=== PATIENT | female | born 1975 | race Caucasian/White ===

== ENCOUNTER 2016-08-30 21:25 | Inpatient (IN) | payer MEDICARE, OTHER ==
[2016-08-30] MEDS ORDERED: methylPREDNISolone SOD SUCCI 125 MG/2 ML VIAL IV STA (22:10)
[2016-08-30] MEDS ORDERED: SODIUM CHLORIDE 0.9% 1,000 ML IV STA (22:10)
[2016-08-30] MEDS ORDERED: IPRATROPIUM-ALBUTEROL 3 ML NEB INHALATION STA (22:10)
[2016-08-30] MEDS ORDERED: SODIUM CHLORIDE 0.9% 500 ML IV STA (22:10)
[2016-08-30] MEDS: IPRATROPIUM-ALBUTEROL 3 ML NEB INHALATION STA ×2 (22:11→22:12)
[2016-08-30 22:19] LABS: Basophils % (A) 1 %; CHCM 31.3; Eosinophils # (A) 0.4 k/uL (0-0.7); Eosinophils % (A) 6 %; HDW 2.44; HGB 13.2 gm/dL (11.4-16.0); Hypochromasia Slight; Luc # (Auto) 0.19; Luc % (Auto) 3; Lymphocytes # (A) 2.2 k/uL (1.0-4.8); Lymphocytes % (A) 33 %; MCH 26.7 pg (25.0-35.0); MCHC 30.8 g/dL (31.0-37.0); MCV 86.8 fL (80.0-100.0); Mean Platelet Volume 7.1; Monocytes # (A) 0.5 k/uL (0-1.0); Monocytes % (A) 7 %; Neutrophils # (A) 3.3 k/uL (1.3-7.7); Neutrophils % (A) 51 %; RBC 4.95 m/uL (3.80-5.40); RDW 14.3 % (11.5-15.5); WBC 6.6 k/uL (3.8-10.6); WBC (Perox) 6.17
[2016-08-30] MEDS ORDERED: IV VANCOMYCIN PER PHARMACY 1 EACH MISC MISCELLANE PRN (22:20)
[2016-08-30] MEDS ORDERED: PIPERACILLIN-TAZOBACTAM 3.375 GM in DEXTROSE/WATER 1 50ML.BAG IVPB STA (22:20)
[2016-08-30] MEDS ORDERED: RX INFO: IV CONTRAST WAS GIVEN 1 EACH MISC MISCELLANE PRN (22:20)
[2016-08-30] MEDS ORDERED: ACETAMINOPHEN IV (For NPO) 1,000 MG in EMPTY BAG 1 BAG IVPB STA (22:20)
[2016-08-30] MEDS ORDERED: VANCOMYCIN 1,750 MG in SODIUM CHLORIDE 0.9% 250 ML IVPB STA (22:27)
[2016-08-30] MEDS: KETOROLAC 30 MG/ML 1 ML VIAL IVP STA ×2 (22:31→22:32)
[2016-08-30 22:32] LABS: Partial Thromboplastin Time 25.6 sec (22.0-30.0); Prothrombin Time 10.4 sec (9.0-12.0)
[2016-08-30 22:34] LABS: ALT 43 U/L (9-52); AST 31 U/L (14-36); Alkaline Phosphatase 122 U/L (38-126); Anion Gap 10 mmol/L; Blood Urea Nitrogen 12 mg/dL (7-17); Calcium 9.1 mg/dL (8.4-10.2); Carbon Dioxide 33 mmol/L (22-30); Chloride 96 mmol/L (98-107); Glucose 123 mg/dL (74-99); Non-African American GFR(MDRD) >60 (>60 ml/min/1.73 sqM); Potassium 4.4 mmol/L (3.5-5.1); Sodium 139 mmol/L (137-145); Total Bilirubin 0.4 mg/dL (0.2-1.3); Total Protein 7.4 g/dL (6.3-8.2)
[2016-08-30] MEDS ORDERED: FAMOTIDINE 20 MG/2 ML VIAL IV STA (22:39)
[2016-08-30] MEDS ORDERED: diphenhydrAMINE 50 MG/ML 1 ML VIAL IVP STA (22:39)
--- NOTE | 2016-08-30 22:44 | ED ---
General Adult HPI - General Chief complaint: Shortness of Breath Stated complaint: SOB/Rash Time Seen by Provider: 08/30/16 21:47 Source: patient, RN notes reviewed, old records reviewed Mode of arrival: wheelchair Limitations: no limitations - History of Present Illness Initial comments: This is a 41-year-old female on emergency department for evaluation of shortness of breath cough congestion and pain. Patient has significant medical history of asthma COPD and comorbid conditions, patient states symptoms of progressively worse about 2-3 days. Patient's also been dealing with infection on her chin and throat. Patient states swelling redness and fever on and off, patient is having chills. Patient denies being diabetic, has not taken medications has not been seen for this infection before. Patient states she has pain was able to open her mouth is able swallow, can move her tongue freely. Patient is recent travel history, no new medications, no sick contacts. - Related Data Home Medications Medication Instructions Recorded Confirmed Citalopram Hydrobromide [CeleXA] 60 mg PO DAILY 01/06/14 08/30/16 Potassium Chloride [Klor-Con 8] 8 meq PO DAILY 01/06/14 08/30/16 diphenhydrAMINE [Benadryl] 50 mg PO TID 01/06/14 08/30/16 Magnesium 200 mg PO DAILY 05/03/14 08/30/16 Albuterol Nebulized [Ventolin 2.5 mg INHALATION RT-QID PRN 09/02/14 08/30/16 Nebulized] Albuterol Inhaler [Ventolin Hfa 1 - 2 puff INHALATION RT-Q4H PRN 11/13/14 Inhaler] Ipratropium/Albuterol Sulfate 1 - 2 puff INHALATION RT-QID PRN 07/26/15 08/30/16 [Combivent Respimat Inhaler] Zolpidem Tartrate [Ambien] 10 mg PO HS 11/10/15 08/30/16 Morphine Sulfate [Morphine Sulfate 15 mg PO Q12H 11/30/15 08/30/16 ER] oxyCODONE-APAP 7.5-325MG [Percocet 1 tab PO Q6H PRN 02/11/16 08/30/16 7.5-325 mg] LORazepam [Ativan] 0.5 mg PO BID 05/24/16 08/30/16 Allergies Allergy/AdvReac Type Severity Reaction Status Date / Time adhesive Allergy Rash/Hives Verified 08/30/16 22:50 amoxicillin Allergy Anaphylaxis Verified 08/30/16 22:50 azithromycin [From Zithromax] Allergy Anaphylaxis Verified 08/30/16 22:50 cephalexin monohydrate Allergy Anaphylaxis Verified 08/30/16 22:50 [From Keflex] ciprofloxacin Allergy Anaphylaxis Verified 08/30/16 22:50 clindamycin Allergy Anaphylaxis Verified 08/30/16 22:50 levofloxacin [From Levaquin] Allergy Rash/Hives Verified 08/30/16 22:50 NSAIDS (Non-Steroidal Allergy Rash/Hives Verified 08/30/16 22:50 Anti-Inflamma shellfish derived Allergy Anaphylaxis Verified 08/30/16 22:50 Sulfa (Sulfonamide Allergy Anaphylaxis Verified 08/30/16 22:50 Antibiotics) sulfamethoxazole Allergy Anaphylaxis Verified 08/30/16 22:50 [From Bactrim] tramadol Allergy Unknown Verified 08/30/16 22:50 trimethoprim [From Bactrim] Allergy Anaphylaxis Verified 08/30/16 22:50 Review of Systems ROS Statement: Those systems with pertinent positive or pertinent negative responses have been documented in the HPI. ROS Other: All systems not noted in ROS Statement are negative. Past Medical History Past Medical History: Asthma, COPD, CVA/TIA, Fibromyalgia, Osteoarthritis (OA), Pneumonia, Rheumatoid Arthritis (RA), Seizure Disorder, Syncope Additional Past Medical History / Comment(s): pancreatitis fibrosis diagnosis in August 2015 Chronic back pain/ migraines, chronic abdominal pain. pancreatitis.kidney stones,. IBS History of Any Multi-Drug Resistant Organisms: MRSA Date of last positivie culture/infection: 2011 MDRO Source:: abdominal area from hysterectomy. Past Surgical History: Section, Cholecystectomy, Hysterectomy, Tubal Ligation Additional Past Surgical History / Comment(s): oral surgery . Pancreas biopsy May 2015. Past Anesthesia/Blood Transfusion Reactions: No Reported Reaction Past Psychological History: ADD/ADHD, Anxiety, Bipolar, Depression Additional Psychological History / Comment(s): borderline personality disorder Smoking Status: Current every day smoker Past Alcohol Use History: None Reported Past Drug Use History: Marijuana - Past Family History Father Family Medical History: No Reported History Additional Family Medical History / Comment(s): ADOPTED General Exam Limitations: no limitations General appearance: alert, in no apparent distress Head exam: Present: atraumatic, normocephalic, normal inspection Eye exam: Present: normal appearance, PERRL, EOMI. Absent: scleral icterus, conjunctival injection, periorbital swelling ENT exam: Present: normal exam, mucous membranes moist, other (Patient is significant soft tissue swelling to the chin, submandibular area, swelling and erythema, does not seem to be [place] and not fluctuant, no drainage.) Neck exam: Present: normal inspection. Absent: tenderness, meningismus, lymphadenopathy Respiratory exam: Present: normal lung sounds bilaterally. Absent: respiratory distress, wheezes, rales, rhonchi, stridor Cardiovascular Exam: Present: regular rate, normal rhythm, normal heart sounds. Absent: systolic murmur, diastolic murmur, rubs, gallop, clicks GI/Abdominal exam: Present: soft, normal bowel sounds. Absent: distended, tenderness, guarding, rebound, rigid Extremities exam: Present: normal inspection, full ROM, normal capillary refill. Absent: tenderness, pedal edema, joint swelling, calf tenderness Back exam: Present: normal inspection Neurological exam: Present: alert, oriented X3, CN II-XII intact Psychiatric exam: Present: normal affect, normal mood Skin exam: Present: warm, dry, intact, normal color. Absent: rash Course Vital Signs 08/30/16 08/30/16 08/30/16 21:40 22:14 22:26 Temperature 98.5 F Pulse Rate 113 H 100 100 Respiratory 26 H Rate Blood Pressure 192/99 O2 Sat by Pulse 86 L Oximetry - Reevaluation(s) Reevaluation #1: 08/30/16 23:46 Patient with mild improvement after prolonged breathing treatment, we'll continue to monitor breathing status, patient will be given diuresis secondary to heart failure on x-ray Medical Decision Making - Medical Decision Making 41 female here for evaluation of COPD, CHF exacerbation with shortness of breath and hypoxia, respiratory failure, patient will be admitted for pulmonary resuscitation and evaluation. Patient also with infection, soft tissue infection of her chin, patient placed on appropriate antibiotics - Lab Data Result diagrams: 08/30/16 22:05 08/30/16 22:05 Lab Results 08/30/16 08/30/16 08/30/16 Range/Units 22:05 22:05 22:05 WBC 6.6 (3.8-10.6) k/uL RBC 4.95 (3.80-5.40) m/uL Hgb 13.2 (11.4-16.0) gm/dL Hct 43.0 (34.0-46.0) % MCV 86.8 (80.0-100.0) fL MCH 26.7 (25.0-35.0) pg MCHC 30.8 L (31.0-37.0) g/dL RDW 14.3 (11.5-15.5) % Plt Count 313 (150-450) k/uL Neutrophils % 51 % Lymphocytes % 33 % Monocytes % 7 % Eosinophils % 6 % Basophils % 1 % Neutrophils # 3.3 (1.3-7.7) k/uL Lymphocytes # 2.2 (1.0-4.8) k/uL Monocytes # 0.5 (0-1.0) k/uL Eosinophils # 0.4 (0-0.7) k/uL Basophils # 0.0 (0-0.2) k/uL Hypochromasia Slight PT (9.0-12.0) sec INR (<1.1) APTT (22.0-30.0) sec Sodium 139 (137-145) mmol/L Potassium 4.4 (3.5-5.1) mmol/L Chloride 96 L (98-107) mmol/L Carbon Dioxide 33 H (22-30) mmol/L Anion Gap 10 mmol/L BUN 12 (7-17) mg/dL Creatinine 0.80 (0.52-1.04) mg/dL Est GFR (MDRD) Af Amer >60 (>60 ml/min/1.73 sqM) Est GFR (MDRD) Non-Af >60 (>60 ml/min/1.73 sqM) Glucose 123 H (74-99) mg/dL Plasma Lactic Acid Srinivas 1.6 (0.7-2.0) mmol/L Calcium 9.1 (8.4-10.2) mg/dL Total Bilirubin 0.4 (0.2-1.3) mg/dL AST 31 (14-36) U/L ALT 43 (9-52) U/L Alkaline Phosphatase 122 (38-126) U/L Total Protein 7.4 (6.3-8.2) g/dL Albumin 4.0 (3.5-5.0) g/dL 08/30/16 Range/Units 22:05 WBC (3.8-10.6) k/uL RBC (3.80-5.40) m/uL Hgb (11.4-16.0) gm/dL Hct (34.0-46.0) % MCV (80.0-100.0) fL MCH (25.0-35.0) pg MCHC (31.0-37.0) g/dL RDW (11.5-15.5) % Plt Count (150-450) k/uL Neutrophils % % Lymphocytes % % Monocytes % % Eosinophils % % Basophils % % Neutrophils # (1.3-7.7) k/uL Lymphocytes # (1.0-4.8) k/uL Monocytes # (0-1.0) k/uL Eosinophils # (0-0.7) k/uL Basophils # (0-0.2) k/uL Hypochromasia PT 10.4 (9.0-12.0) sec INR 1.0 (<1.1) APTT 25.6 (22.0-30.0) sec Sodium (137-145) mmol/L Potassium (3.5-5.1) mmol/L Chloride (98-107) mmol/L Carbon Dioxide (22-30) mmol/L Anion Gap mmol/L BUN (7-17) mg/dL Creatinine (0.52-1.04) mg/dL Est GFR (MDRD) Af Amer (>60 ml/min/1.73 sqM) Est GFR (MDRD) Non-Af (>60 ml/min/1.73 sqM) Glucose (74-99) mg/dL Plasma Lactic Acid Srinivas (0.7-2.0) mmol/L Calcium (8.4-10.2) mg/dL Total Bilirubin (0.2-1.3) mg/dL AST (14-36) U/L ALT (9-52) U/L Alkaline Phosphatase (38-126) U/L Total Protein (6.3-8.2) g/dL Albumin (3.5-5.0) g/dL - Radiology Data Radiology results: report reviewed (Chest x-ray shows no pneumonia positive CHF pulmonary edema, CT soft tissue neck shows positive cellulitis), image reviewed Critical Care Time Critical Care Time: Yes Total Critical Care Time: 31 Disposition Clinical Impression: Congestive heart failure, Acute pulmonary edema, Acute exacerbation of chronic obstructive airways disease, Hypoxia, Cellulitis of chin Disposition: ADMITTED IP TO THIS HOSP Condition: Fair Referrals: Saman Patrick MD [Primary Care Provider] - 1-2 days
--- NOTE | 2016-08-30 22:46 | XR ---
EXAMINATION TYPE: XR chest 1V portable DATE OF EXAM: 08/30/2016 10:35 PM COMPARISON: 05/24/2016 HISTORY: History of asthma or COPD shortness of breath and cough TECHNIQUE: Single frontal view of the chest is obtained. FINDINGS: Mild pulmonary vascular congestion is suggested. There is no focal air space opacity, pleural effusion, or pneumothorax seen. The cardiac silhouette size is within normal limits. The osseous structures are intact. IMPRESSION: 1. Mild pulmonary vascular congestion. 2. No focal pneumonia. 3. No significant interval change.
[2016-08-30] MEDS ORDERED: FUROSEMIDE 10 MG/ML 4 ML VIAL IV STA (23:47)
--- NOTE | 2016-08-30 23:47 | CT ---
EXAMINATION TYPE: CT soft tissue neck w con DATE OF EXAM: 08/30/2016 11:10 PM COMPARISON: CT soft tissues of neck 04/24/2013. HISTORY: Pt states of swelling and justina ness to chin area with SOB. CT DLP: 648.0 mGycm Automated exposure control for dose reduction was used. CONTRAST: CT scan of the neck is performed following with IV Contrast, patient injected with 100 mL of Omnipaqu e 300. Axial images are obtained, coronal and sagittal reformatted images are reviewed. FINDINGS: The area of redness to the chin area showed diffuse soft tissue swelling with prominent subcutaneous fat. There is mild fat stranding in the chin area probably related to cellulitis changes. There is evidence of multiple small lymph nodes in this area of submental region with one of the larg est lymph nodes measuring 0.83 x 0.88 cm. No abnormal fluid collections are noted in this area of thin to represent abscess collection or hemat kit collection. The oropharynx showed prominent pharyngeal tonsils with possible mild inflammation. Epiglottis appear s unremarkable. There are multiple benign-appearing lymph nodes in the soft tissues of neck in the anterior and poste rior triangles. Airway: No gross abnormality seen. Parotid/submandibular glands: No gross abnormality seen. Carotid/Vascular Structures: Appear grossly unremarkable. 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 Other: Upper lung daniel appear grossly unremarkable. IMPRESSION: 1. The area of concern of redness in the chin area showed increased soft tissue prominence with sugge stion of cellulitis changes with multiple small lymph nodes without significant focal abscess collect ion at present. A clinical correlation and follow-up is recommended. 2. Possible mild inflammation in the oropharyngeal and tonsillar area.
[2016-08-31 02:57] LABS: Creatine Kinase 169 U/L (30-135)
[2016-08-31] MEDS: methylPREDNISolone SOD SUCCI 125 MG/2 ML VIAL IV SCH ×4 (03:05→17:23)
[2016-08-31 03:09] LABS: Troponin I <0.012 ng/mL (0.000-0.034)
[2016-08-31 03:55] LABS: Appearance,Urine Clear (Clear); Bilirubin,Urine Negative (Negative); Glucose,Urine (UA) Negative (Negative); Ketones,Urine Negative (Negative); Leukocyte Esterase,Urine Negative (Negative); Nitrite,Urine Negative (Negative); PH, Urine 5.5 (5.0-8.0); Particle Count 666; Protein,Urine Trace (Negative); RBC,Urine 2 /hpf (0-5); Specific Gravity,Urine 1.025 (1.001-1.035); UA Billing (MACRO vs. MICRO) MICRO; Urobilinogen,Urine <2.0 mg/dL (<2.0); WBC,Urine <1 /hpf (0-5)
[2016-08-31] MEDS: IPRATROPIUM-ALBUTEROL 3 ML NEB INHALATION SCH ×5 (04:37→19:20)
[2016-08-31 05:48] LABS: Glucose,Whole Blood 189 mg/dL (75-99)
[2016-08-31] MEDS: MORPHINE SULFATE ER 15 MG TABLET PO SCH ×2 (07:22→18:36)
[2016-08-31 07:43] LABS: CH 27.1; CHCM 31.3; HCT 41.3 % (34.0-46.0); HDW 2.44; HGB 12.7 gm/dL (11.4-16.0); Hypochromasia Slight; MCH 26.8 pg (25.0-35.0); MCHC 30.7 g/dL (31.0-37.0); MCV 87.1 fL (80.0-100.0); Mean Platelet Volume 7.2; RBC 4.74 m/uL (3.80-5.40); RDW 14.2 % (11.5-15.5); WBC 4.2 k/uL (3.8-10.6)
[2016-08-31 07:57] LABS: Anion Gap 13 mmol/L; Blood Urea Nitrogen 9 mg/dL (7-17); Calcium 8.6 mg/dL (8.4-10.2); Carbon Dioxide 34 mmol/L (22-30); Chloride 94 mmol/L (98-107); Glucose 222 mg/dL (74-99); Non-African American GFR(MDRD) >60 (>60 ml/min/1.73 sqM); Sodium 141 mmol/L (137-145)
[2016-08-31] MEDS: VANCOMYCIN 1,500 MG in SODIUM CHLORIDE 0.9% 250 ML IVPB SCH ×2 (08:40→20:24)
[2016-08-31] MEDS: INSULIN LISPRO (humaLOG) 300 UNIT/3 ML VIAL SQ SCH ×4 (08:42→21:34)
[2016-08-31] MEDS: SODIUM CHLORIDE 0.9% 1,000 ML IV SCH (08:48)
[2016-08-31] MEDS: ENOXAPARIN 40 MG/0.4 ML SYRINGE SQ SCH (08:49)
[2016-08-31] MEDS: FUROSEMIDE 10 MG/ML 4 ML VIAL IV SCH ×2 (08:49→20:29)
[2016-08-31] MEDS: PIPERACILLIN-TAZOBACTAM 3.375 GM in DEXTROSE/WATER 1 50ML.BAG IVPB SCH ×3 (10:03→23:16)
[2016-08-31 11:11] LABS: Glucose,Whole Blood 320 mg/dL (75-99)
[2016-08-31] MEDS: oxyCODONE-APAP 7.5-325MG 1 EACH TAB PO PRN ×3 (11:19→23:15)
[2016-08-31 12:21] LABS: Glucose,Whole Blood 191 mg/dL (75-99)
[2016-08-31] MEDS: HYDROmorphone 1 MG/ML 1 ML SYRINGE IVP PRN ×3 (12:53→21:40)
[2016-08-31] MEDS: CITALOPRAM HYDROBROMIDE 20 MG TAB PO SCH (12:54)
[2016-08-31] MEDS: diphenhydrAMINE 50 MG CAP PO SCH ×2 (16:14→20:24)
[2016-08-31 16:44] LABS: Glucose,Whole Blood 170 mg/dL (75-99)
[2016-08-31] MEDS: LORazepam 0.5 MG TAB PO SCH (20:29)
[2016-08-31 21:14] LABS: Glucose,Whole Blood 200 mg/dL (75-99)
[2016-08-31] MEDS ORDERED: IPRATROPIUM-ALBUTEROL 3 ML NEB INHALATION PRN (23:09)
--- NOTE | 2016-08-31 23:25 | P.HPIM ---
History of Present Illness H&P Date: 08/31/16 Chief Complaint: Shortness of breath with facial cellulitis. This is a history of this, 41-year-old white female with known history of significant depression and history of bipolar disorder who states significant problems related to shortness of breath and cough. She is multiple admissions for element of COPD. She states that she also had facial rash and was placing Silvadene on the face and supposedly got worse. No dysuria stated. Later fever but no weakness is noted. She states significant pain which is chronic for her. Question element of fibromyalgia.. No significant nausea, vomiting or diarrhea stated. Multiple allergies are noted including amoxicillin, azithromycin, Keflex, ciprofloxacin, clindamycin and Levaquin. After evaluation in the emergency room, she is appropriately admitted for recurrent treatment of COPD and bronchitis. She states exposure to a relative did somewhat trigger the events. Review of Systems Constitutional: Reports fatigue, Reports fever, Reports weakness Eyes: denies blurred vision, denies pain Ears, nose, mouth and throat: Denies headache, Denies sore throat Cardiovascular: Denies chest pain, Denies shortness of breath Respiratory: Reports as per HPI Gastrointestinal: Denies abdominal pain, Denies diarrhea, Denies nausea, Denies vomiting Genitourinary: Denies dysuria, Denies hematuria Musculoskeletal: Reports myalgias Integumentary: Reports rash Neurological: Denies numbness, Denies weakness Past Medical History Past Medical History: Asthma, Heart Failure, COPD, CVA/TIA, Fibromyalgia, Pneumonia, Rheumatoid Arthritis (RA), Seizure Disorder, Syncope Additional Past Medical History / Comment(s): pancreatitis fibrosis diagnosis in August 2015 Chronic back pain/ migraines, chronic abdominal pain. pancreatitis.kidney stones,. IBS, cellulitis of the chin admit with HF on 2015 History of Any Multi-Drug Resistant Organisms: MRSA Date of last positivie culture/infection: 08/14/11 MDRO Source:: Abdomen Past Surgical History: Section, Cholecystectomy, Hysterectomy, Tubal Ligation Additional Past Surgical History / Comment(s): oral surgery . Pancreas biopsy May 2015. Past Anesthesia/Blood Transfusion Reactions: No Reported Reaction Past Psychological History: ADD/ADHD, Anxiety, Bipolar, Depression Additional Psychological History / Comment(s): borderline personality disorder Smoking Status: Current every day smoker Past Alcohol Use History: None Reported Past Drug Use History: Marijuana Additional Drug Use History / Comment(s): a few times a month - Past Family History Father Family Medical History: No Reported History Additional Family Medical History / Comment(s): ADOPTED Medications and Allergies Home Medications Medication Instructions Recorded Confirmed Type RX: Citalopram Hydrobromide 60 mg PO DAILY 01/06/14 08/30/16 History [CeleXA] RX: Potassium Chloride [Klor-Con 8] 8 meq PO DAILY 01/06/14 08/30/16 History RX: diphenhydrAMINE [Benadryl] 50 mg PO TID 01/06/14 08/30/16 History RX: Magnesium 200 mg PO DAILY 05/03/14 08/30/16 History RX: Albuterol Nebulized [Ventolin 2.5 mg INHALATION RT-QID PRN 09/02/14 History Nebulized] RX: Albuterol Inhaler [Ventolin 1 - 2 puff INHALATION RT-Q4H PRN 11/13/14 History Hfa Inhaler] RX: Ipratropium/Albuterol Sulfate 1 - 2 puff INHALATION RT-QID PRN 07/26/15 History [Combivent Respimat Inhaler] RX: Zolpidem Tartrate [Ambien] 10 mg PO HS 11/10/15 08/30/16 History RX: Morphine Sulfate [Morphine 15 mg PO Q12H 11/30/15 08/30/16 History Sulfate ER] RX: oxyCODONE-APAP 7.5-325MG 1 tab PO Q6H PRN 02/11/16 08/30/16 History [Percocet 7.5-325 mg] LORazepam [Ativan] 0.5 mg PO BID 05/24/16 08/30/16 History Allergies Allergy/AdvReac Type Severity Reaction Status Date / Time adhesive Allergy Rash/Hives Verified 08/30/16 22:50 amoxicillin Allergy Anaphylaxis Verified 08/30/16 22:50 azithromycin [From Zithromax] Allergy Anaphylaxis Verified 08/30/16 22:50 cephalexin monohydrate Allergy Anaphylaxis Verified 08/30/16 22:50 [From Keflex] ciprofloxacin Allergy Anaphylaxis Verified 08/30/16 22:50 clindamycin Allergy Anaphylaxis Verified 08/30/16 22:50 levofloxacin [From Levaquin] Allergy Rash/Hives Verified 08/30/16 22:50 NSAIDS (Non-Steroidal Allergy Rash/Hives Verified 08/30/16 22:50 Anti-Inflamma shellfish derived Allergy Anaphylaxis Verified 08/30/16 22:50 Sulfa (Sulfonamide Allergy Anaphylaxis Verified 08/30/16 22:50 Antibiotics) sulfamethoxazole Allergy Anaphylaxis Verified 08/30/16 22:50 [From Bactrim] tramadol Allergy Unknown Verified 08/30/16 22:50 trimethoprim [From Bactrim] Allergy Anaphylaxis Verified 08/30/16 22:50 Physical Exam Vitals: Vital Signs Temp Pulse Pulse Resp BP BP Pulse Ox 08/31/16 20:00 98.0 F 98 17 140/72 93 L 08/31/16 19:32 100 08/31/16 19:20 100 08/31/16 16:00 96.9 F L 100 20 153/88 96 08/31/16 12:00 97.9 F 92 18 140/60 94 L 08/31/16 11:17 92 08/31/16 11:03 92 08/31/16 08:22 100 08/31/16 08:11 96 08/31/16 08:00 98.8 F 97 21 147/64 97 08/31/16 05:13 99 22 163/73 94 L 08/31/16 04:46 105 H 08/31/16 04:38 103 H 08/30/16 23:57 98.0 F 95 18 159/97 96 Intake and Output 08/31/16 08/31/16 09/01/16 14:59 22:59 06:59 Intake Total 380 580 Output Total 3000 1250 Balance -1131 -644 Intake: IV 90 Piperacillin-Tazobactam 3 50 .375 gm In Dextrose/Water 1 50ml.bag @ 12.5 mls/hr IVPB ONCE STA Rx#: [id number] Sodium Chloride 0.9% 1, 40 000 ml @ 20 mls/hr IV . Q24H [facility] Rx#:[id number] Intake, IV Titration 380 250 Amount Piperacillin-Tazobactam 3 50 .375 gm In Dextrose/Water 1 50ml.bag @ 12.5 mls/hr IVPB Q8HR [facility] Rx#: [id number] Sodium Chloride 0.9% 1, 80 000 ml @ 20 mls/hr IV . Q24H [facility] Rx#:[id number] Vancomycin 1,500 mg In 250 Sodium Chloride 0.9% 250 ml @ 125 mls/hr IVPB Q12HR [facility] Rx#:[id number] Vancomycin 1,750 mg In 250 Sodium Chloride 0.9% 250 ml @ 125 mls/hr IVPB ONCE STA Rx#:[id number] Oral 240 Output: Urine 3000 1250 Other: Voiding Method Toilet Toilet # Voids 2 0 Weight 88.904 kg Patient Weight 09/01/16 06:59 Weight 88.904 kg - Constitutional General appearance: obese - EENT Eyes: EOMI - Neck Neck: no lymphadenopathy - Respiratory Respiratory: bilateral: diminished - Cardiovascular Rhythm: regular Heart sounds: normal: S1, S2 - Gastrointestinal General gastrointestinal: distended, soft, no tenderness - Neurologic Neurologic: CNII-XII intact, focal deficits - Psychiatric Psychiatric: A&O x's 3 Results CBC & Chem 7: 08/31/16 07:22 08/31/16 07:22 Labs: Abnormal Lab Results - Last 24 Hours (Table) 08/31/16 08/31/16 08/31/16 Range/Units 03:35 05:46 07:22 MCHC 30.7 L (31.0-37.0) g/dL Chloride (98-107) mmol/L Carbon Dioxide (22-30) mmol/L Glucose (74-99) mg/dL POC Glucose (mg/dL) 189 H (75-99) mg/dL Urine Protein Trace H (Negative) Urine Blood Small H (Negative) 08/31/16 08/31/16 08/31/16 Range/Units 07:22 11:10 12:20 MCHC (31.0-37.0) g/dL Chloride 94 L (98-107) mmol/L Carbon Dioxide 34 H (22-30) mmol/L Glucose 222 H (74-99) mg/dL POC Glucose (mg/dL) 320 H 191 H (75-99) mg/dL Urine Protein (Negative) Urine Blood (Negative) 08/31/16 08/31/16 Range/Units 16:42 21:11 MCHC (31.0-37.0) g/dL Chloride (98-107) mmol/L Carbon Dioxide (22-30) mmol/L Glucose (74-99) mg/dL POC Glucose (mg/dL) 170 H 200 H (75-99) mg/dL Urine Protein (Negative) Urine Blood (Negative) Microbiology - Last 24 Hours (Table) 08/31/16 03:35 Urine Culture - Preliminary Urine,Clean Catch Thrombosis Risk Factor Assmnt - Choose All That Apply Each Factor Represents 1 point: Abnormal pulmonary function (COPD), Age 41-60 years, Heart failure (<1month) Other Risk Factors: No Other congenital or acquired thrombophilia - If yes, enter type in comment: No Thrombosis Risk Factor Assessment Total Risk Factor Score: 3 Thrombosis Risk Factor Assessment Level: Moderate Risk Assessment and Plan (1) Acute exacerbation of chronic obstructive airways disease Status: Acute (2) Cellulitis of chin Status: Acute (3) COPD exacerbation Status: Acute (4) Cellulitis Status: Acute Plan: Plan continue antibiotic treatment. Question Neosporin usage for topical. Otherwise, question need for infectious disease consultation. Multiple issues including fibromyalgia, chronic pain due to somewhat hinder the recovery. Otherwise, she states that she is only smoking 1 cigarette daily? Check CBC and CMP in a.m. See overt other orders. Time with Patient: Greater than 30
[2016-09-01] MEDS: methylPREDNISolone SOD SUCCI 125 MG/2 ML VIAL IV SCH ×5 (01:17→23:37)
[2016-09-01] MEDS: HYDROmorphone 1 MG/ML 1 ML SYRINGE IVP PRN ×5 (01:17→23:37)
[2016-09-01] MEDS: SODIUM CHLORIDE 0.9% 1,000 ML IV SCH ×2 (02:20→05:31)
[2016-09-01] MEDS: MORPHINE SULFATE ER 15 MG TABLET PO SCH ×2 (05:31→17:40)
[2016-09-01 06:18] LABS: Glucose,Whole Blood 170 mg/dL (75-99)
[2016-09-01 06:34] LABS: CH 26.6; CHCM 30.9; HCT 41.4 % (34.0-46.0); HGB 12.6 gm/dL (11.4-16.0); Hypochromasia Slight; MCH 26.3 pg (25.0-35.0); MCHC 30.4 g/dL (31.0-37.0); MCV 86.5 fL (80.0-100.0); Mean Platelet Volume 6.6; RBC 4.79 m/uL (3.80-5.40); RDW 14.1 % (11.5-15.5); WBC 6.8 k/uL (3.8-10.6)
[2016-09-01] MEDS: INSULIN LISPRO (humaLOG) 300 UNIT/3 ML VIAL SQ SCH ×4 (06:52→23:36)
[2016-09-01 06:58] LABS: ALT 37 U/L (9-52); AST 19 U/L (14-36); Alkaline Phosphatase 113 U/L (38-126); Anion Gap 11 mmol/L; Blood Urea Nitrogen 12 mg/dL (7-17); Calcium 8.9 mg/dL (8.4-10.2); Carbon Dioxide 37 mmol/L (22-30); Chloride 94 mmol/L (98-107); Glucose 176 mg/dL (74-99); Non-African American GFR(MDRD) >60 (>60 ml/min/1.73 sqM); Potassium 4.1 mmol/L (3.5-5.1); Sodium 142 mmol/L (137-145); Total Bilirubin 0.4 mg/dL (0.2-1.3); Total Protein 7.1 g/dL (6.3-8.2)
[2016-09-01] MEDS: IPRATROPIUM-ALBUTEROL 3 ML NEB INHALATION SCH ×4 (07:59→19:02)
[2016-09-01] MEDS: VANCOMYCIN 1,500 MG in SODIUM CHLORIDE 0.9% 250 ML IVPB SCH ×2 (08:15→21:57)
[2016-09-01] MEDS: MAGNESIUM OXIDE 400 MG TAB PO SCH (08:17)
[2016-09-01] MEDS: LORazepam 0.5 MG TAB PO SCH (08:17)
[2016-09-01] MEDS: diphenhydrAMINE 50 MG CAP PO SCH ×3 (08:18→20:48)
[2016-09-01] MEDS: CITALOPRAM HYDROBROMIDE 20 MG TAB PO SCH (08:18)
[2016-09-01] MEDS: ENOXAPARIN 40 MG/0.4 ML SYRINGE SQ SCH (08:18)
[2016-09-01] MEDS: FUROSEMIDE 10 MG/ML 4 ML VIAL IV SCH ×2 (08:19→20:11)
--- NOTE | 2016-09-01 08:37 | P.PN ---
Subjective Principal diagnosis: Exacerbation of COPD with facial irritation/cellulitis. This is a 41-year-old white female essentially admitted for exacerbation of COPD. The patient states she feels much better after having methylprednisone. She would like to have Ativan intermittently for shakes stated. No fever or chills are noted. Objective - Vital Signs Vital signs: Vital Signs Temp 97.6 F 09/01/16 04:00 Pulse 96 09/01/16 08:11 Resp 18 09/01/16 04:00 BP 135/72 09/01/16 04:00 Pulse Ox 94 L 09/01/16 08:01 Intake & Output 08/31/16 09/01/16 09/01/16 18:59 06:59 18:59 Intake Total 620 730 540 Output Total 3000 2050 Balance -2380 -1320 540 Weight 88.904 kg 101.4 kg Intake: IV 230 Piperacillin-Tazobactam 3 50 .375 gm In Dextrose/Water 1 50ml.bag @ 12.5 mls/hr IVPB ONCE STA Rx#: [id number] Sodium Chloride 0.9% 1, 180 000 ml @ 20 mls/hr IV . Q24H [facility] Rx#:[id number] Intake, IV Titration 380 500 Amount Piperacillin-Tazobactam 3 50 .375 gm In Dextrose/Water 1 50ml.bag @ 12.5 mls/hr IVPB Q8HR [facility] Rx#: [id number] Sodium Chloride 0.9% 1, 80 000 ml @ 20 mls/hr IV . Q24H [facility] Rx#:[id number] Vancomycin 1,500 mg In 250 250 Sodium Chloride 0.9% 250 ml @ 125 mls/hr IVPB Q12HR [facility] Rx#:[id number] Vancomycin 1,750 mg In 250 Sodium Chloride 0.9% 250 ml @ 125 mls/hr IVPB ONCE STA Rx#:[id number] Oral 240 540 Output: Urine 3000 2050 Other: Voiding Method Toilet Toilet # Voids 2 0 - Constitutional General appearance: Present: obese - EENT Eyes: Absent: abnormal pupil - Respiratory Respiratory: bilateral: rhonchi - Cardiovascular Rhythm: regular Heart sounds: normal: S1, S2 - Gastrointestinal General gastrointestinal: Present: soft. Absent: tenderness - Neurologic Neurologic: Present: CNII-XII intact, focal deficits - Labs CBC & Chem 7: 09/01/16 05:48 09/01/16 05:48 Labs: Abnormal Lab Results - Last 24 Hours (Table) 08/31/16 08/31/16 08/31/16 Range/Units 11:10 12:20 16:42 MCHC (31.0-37.0) g/dL Chloride (98-107) mmol/L Carbon Dioxide (22-30) mmol/L Glucose (74-99) mg/dL POC Glucose (mg/dL) 320 H 191 H 170 H (75-99) mg/dL 08/31/16 09/01/16 09/01/16 Range/Units 21:11 05:48 05:48 MCHC 30.4 L (31.0-37.0) g/dL Chloride 94 L (98-107) mmol/L Carbon Dioxide 37 H (22-30) mmol/L Glucose 176 H (74-99) mg/dL POC Glucose (mg/dL) 200 H (75-99) mg/dL 09/01/16 Range/Units 06:01 MCHC (31.0-37.0) g/dL Chloride (98-107) mmol/L Carbon Dioxide (22-30) mmol/L Glucose (74-99) mg/dL POC Glucose (mg/dL) 170 H (75-99) mg/dL Microbiology - Last 24 Hours (Table) 08/31/16 03:35 Urine Culture - Preliminary Urine,Clean Catch Assessment and Plan (1) Acute exacerbation of chronic obstructive airways disease Status: Acute (2) Cellulitis of chin Status: Acute (3) COPD exacerbation Status: Acute (4) Cellulitis Status: Acute Plan: Continue current regimen of antibiotic treatment. Probably wean off to oral Lasix in the a.m. Continue current regimen of treatment. Medihoney was discussed as a topical for her chin Check CBC and CMP in a.m. Time with Patient: Less than 30
[2016-09-01] MEDS: PANTOPRAZOLE 40 MG TABLET PO SCH (08:53)
[2016-09-01 11:47] LABS: Glucose,Whole Blood 182 mg/dL (75-99)
[2016-09-01] MEDS: PIPERACILLIN-TAZOBACTAM 3.375 GM in DEXTROSE/WATER 1 50ML.BAG IVPB SCH ×2 (11:56→17:41)
--- NOTE | 2016-09-01 14:30 | CDI ---
In responding to this query, please exercise your independent professional judgment. The [facility] Coding Staff and Clinical Documentation Specialists appreciate your assistance in clarifying documentation, maintaining compliance with coding guidelines, accurately documenting patients condition and capturing severity of illness. The fact that a question is asked does not imply that any particular answer is desired or expected. Communication forms are a method of clarifying documentation and are not made part of the Legal Health Record. Thank you in advance for your clarification. Last Revision, September 2015 Morgan Ames [address] [place] [address] Documentation Clarification Form Date: 09/01/2016 2:23:00 PM From: Zoie Jones Admit Date: 08/30/2016 11:47:00 PM Patient Name: Yolie Yeboah Visit Number: [id number] Dr. Saman Patrick CHF is documented in the ED note. History/Risk Factors: COPD Smoker Clinical Indicators: VS/Pulse OX: RR 26, sats 86% on room air BNP: 95 Chest X Ray: mild pulmonary vascular congestion Echocardiogram Results: most recent found was 09/03/2014 showed ef 55-60% Treatment: IV Lasix 40 mg q12 hrs In your professional opinion, can you please clarify the acuity and type of CHF if known? Acute Chronic Acute on Chronic AND Systolic Diastolic Systolic and Diastolic Unable to determine Other, please specify Please document in your progress notes and discharge summary in order to capture severity of illness and risk of mortality. Include clinical findings that support your diagnosis. FYI: Press F11 to launch patient chart. _X____ Place X here if this finding has no clinical significance, is not applicable or if you are not able to provide any additional documentation. MTDD
[2016-09-01 14:32] VITALS: BMI 43.6
--- NOTE | 2016-09-01 14:36 | CDI ---
In responding to this query, please exercise your independent professional judgment. The [facility] Coding Staff and Clinical Documentation Specialists appreciate your assistance in clarifying documentation, maintaining compliance with coding guidelines, accurately documenting patients condition and capturing severity of illness. The fact that a question is asked does not imply that any particular answer is desired or expected. Communication forms are a method of clarifying documentation and are not made part of the Legal Health Record. Thank you in advance for your clarification. Last Revision, September 2015 Morgan Ames [address] [facility] [place] [address] Documentation Clarification Form Date: 09/01/2016 2:30:00 PM From: Zoie Jones Admit Date: 08/30/2016 11:47:00 PM Patient Name: Yolie Yeboah Visit Number: [id number] Dr. Saman Patrick The patient presented with Shortness of Breath. History/Risk Factors: CHF COPD Smoker Clinical Indicators: Vital signs/Pulse oximetry: RR 26, sats 86% on room air poa Lung/Breathing assessment: short of breath, labored, shallow with RR 22, sats 94% on 4L nasal cannula Treatment: Breathing tx IV Lasix IV steroids O2 nasal cannula 4L In your professional opinion, can you please clarify if these findings signify one of the following conditions? Acuity: o Acute o Chronic o Acute on Chronic Respiratory Status: o Respiratory failure with hypercapnia o Respiratory failure with hypoxia o Acute Respiratory Distress o Other Diagnosis, please specify o Unable to determine Please document in your progress notes and discharge summary in order to capture severity of illness and risk of mortality. Include clinical findings that support your diagnosis. FYI: Press F11 to launch patient chart. Place X here if this finding has no clinical significance, is not applicable or if you are not able to provide any additional documentation. MARY KAY
[2016-09-01 16:54] LABS: Glucose,Whole Blood 167 mg/dL (75-99)
[2016-09-01] MEDS: LORazepam 0.5 MG TAB PO PRN ×2 (17:51→23:38)
[2016-09-01] MEDS: ONDANSETRON 4 MG/2 ML VIAL IVP PRN (20:48)
[2016-09-01 21:14] LABS: Glucose,Whole Blood 224 mg/dL (75-99)
[2016-09-01] MEDS: ZOLPIDEM 10 MG TAB PO SCH (23:38)
[2016-09-02] MEDS: PIPERACILLIN-TAZOBACTAM 3.375 GM in DEXTROSE/WATER 1 50ML.BAG IVPB SCH ×3 (01:17→16:45)
[2016-09-02] MEDS: ONDANSETRON 4 MG/2 ML VIAL IVP PRN (04:14)
[2016-09-02] MEDS: HYDROmorphone 1 MG/ML 1 ML SYRINGE IVP PRN ×5 (04:15→20:31)
[2016-09-02] MEDS: SODIUM CHLORIDE 0.9% 1,000 ML IV SCH (04:17)
[2016-09-02] MEDS: MORPHINE SULFATE ER 15 MG TABLET PO SCH ×2 (05:39→17:29)
[2016-09-02] MEDS: methylPREDNISolone SOD SUCCI 125 MG/2 ML VIAL IV SCH (05:39)
[2016-09-02] MEDS: LORazepam 0.5 MG TAB PO PRN ×3 (05:40→18:19)
[2016-09-02 06:22] LABS: Glucose,Whole Blood 176 mg/dL (75-99)
[2016-09-02 06:24] LABS: CH 26.5; HCT 42.8 % (34.0-46.0); Hypochromasia Moderate; MCH 26.9 pg (25.0-35.0); MCHC 30.3 g/dL (31.0-37.0); MCV 88.7 fL (80.0-100.0); Mean Platelet Volume 6.9; RBC 4.83 m/uL (3.80-5.40); RDW 14.2 % (11.5-15.5); WBC 7.8 k/uL (3.8-10.6)
[2016-09-02] MEDS: INSULIN LISPRO (humaLOG) 300 UNIT/3 ML VIAL SQ SCH ×4 (07:03→22:08)
[2016-09-02] MEDS: PANTOPRAZOLE 40 MG TABLET PO SCH (07:03)
[2016-09-02] MEDS: IPRATROPIUM-ALBUTEROL 3 ML NEB INHALATION SCH ×4 (07:25→19:52)
[2016-09-02] MEDS ORDERED: VANCOMYCIN TROUGH DUE 1 EACH MISC MISCELLANE ONE (08:00)
[2016-09-02 08:22] LABS: ALT 32 U/L (9-52); AST 14 U/L (14-36); Alkaline Phosphatase 96 U/L (38-126); Anion Gap 11 mmol/L; Blood Urea Nitrogen 23 mg/dL (7-17); Calcium 9.1 mg/dL (8.4-10.2); Carbon Dioxide 38 mmol/L (22-30); Chloride 94 mmol/L (98-107); Glucose 177 mg/dL (74-99); Non-African American GFR(MDRD) >60 (>60 ml/min/1.73 sqM); Sodium 143 mmol/L (137-145); Total Bilirubin 0.4 mg/dL (0.2-1.3)
--- NOTE | 2016-09-02 08:26 | P.PN ---
Subjective Principal diagnosis: Exacerbation of COPD with facial irritation/cellulitis. This is a 41-year-old white female essentially admitted for exacerbation of COPD. The patient states she feels much better after having methylprednisone. She would like to have Ativan intermittently for shakes stated. No fever or chills are noted. Objective - Vital Signs Vital signs: Vital Signs Temp 97.8 F 09/02/16 04:00 Pulse 85 09/02/16 04:00 Resp 16 09/02/16 04:00 BP 141/85 09/02/16 04:00 Pulse Ox 92 L 09/02/16 04:00 Intake & Output 09/01/16 09/02/16 09/02/16 18:59 06:59 18:59 Intake Total 780 960 120 Output Total 2050 Balance 780 -1090 120 Weight 101.4 kg 100.2 kg Intake: IV 200 Sodium Chloride 0.9% 1, 200 000 ml @ 20 mls/hr IV . Q24H [facility] Rx#:[id number] Intake, IV Titration 400 Amount Piperacillin-Tazobactam 3 150 .375 gm In Dextrose/Water 1 50ml.bag @ 12.5 mls/hr IVPB Q8HR [facility] Rx#: [id number] Vancomycin 1,500 mg In 250 Sodium Chloride 0.9% 250 ml @ 125 mls/hr IVPB Q12HR [facility] Rx#:[id number] Oral 780 360 120 Output: Urine 1850 Stool 200 Other: Voiding Method Toilet Toilet # Voids 2 - Constitutional General appearance: Present: obese - EENT Eyes: Absent: abnormal pupil - Respiratory Respiratory: bilateral: diminished - Cardiovascular Rhythm: regular Heart sounds: normal: S1, S2 - Gastrointestinal General gastrointestinal: Present: soft. Absent: tenderness - Psychiatric Psychiatric: Present: A&O x's 3, appropriate affect - Labs CBC & Chem 7: 09/02/16 05:29 09/02/16 07:47 Labs: Abnormal Lab Results - Last 24 Hours (Table) 09/01/16 09/01/16 09/01/16 Range/Units 11:34 16:49 21:10 MCHC (31.0-37.0) g/dL Chloride (98-107) mmol/L Carbon Dioxide (22-30) mmol/L BUN (7-17) mg/dL Glucose (74-99) mg/dL POC Glucose (mg/dL) 182 H 167 H 224 H (75-99) mg/dL 09/02/16 09/02/16 09/02/16 Range/Units 05:29 06:21 07:47 MCHC 30.3 L (31.0-37.0) g/dL Chloride 94 L (98-107) mmol/L Carbon Dioxide 38 H (22-30) mmol/L BUN 23 H (7-17) mg/dL Glucose 177 H (74-99) mg/dL POC Glucose (mg/dL) 176 H (75-99) mg/dL Microbiology - Last 24 Hours (Table) 08/31/16 03:35 Urine Culture - Final Urine,Clean Catch Assessment and Plan (1) Acute exacerbation of chronic obstructive airways disease Status: Acute (2) Cellulitis of chin Status: Acute (3) COPD exacerbation Status: Acute (4) Cellulitis Status: Acute Plan: Impression a 41-year-old white female essentially admitted for recurrent exacerbation of acute with chronic COPD. The patient is now stabilizing. Pain control is nominal. We'll continue appropriate steroid therapy. Start tapering in a.m. Anticipate discharge in the next 24-48 hours. Time with Patient: Less than 30
[2016-09-02] MEDS: VANCOMYCIN 1,500 MG in SODIUM CHLORIDE 0.9% 250 ML IVPB SCH ×2 (08:39→22:10)
[2016-09-02] MEDS: ENOXAPARIN 40 MG/0.4 ML SYRINGE SQ SCH (09:11)
[2016-09-02] MEDS: diphenhydrAMINE 50 MG CAP PO SCH ×3 (09:11→22:08)
[2016-09-02] MEDS: CITALOPRAM HYDROBROMIDE 20 MG TAB PO SCH (09:11)
[2016-09-02] MEDS: FUROSEMIDE 10 MG/ML 4 ML VIAL IV SCH ×2 (09:11→19:49)
[2016-09-02] MEDS: MAGNESIUM OXIDE 400 MG TAB PO SCH (09:12)
[2016-09-02] MEDS: methylPREDNISolone SOD SUCCI 40 MG/ML 1 ML VIAL IV SCH ×2 (12:36→18:19)
[2016-09-02 12:39] LABS: Glucose,Whole Blood 185 mg/dL (75-99)
[2016-09-02] MEDS: oxyCODONE-APAP 7.5-325MG 1 EACH TAB PO PRN ×2 (14:17→19:50)
[2016-09-02 17:57] LABS: Glucose,Whole Blood 141 mg/dL (75-99)
[2016-09-02 22:23] LABS: Glucose,Whole Blood 171 mg/dL (75-99)
[2016-09-03] MEDS: HYDROmorphone 1 MG/ML 1 ML SYRINGE IVP PRN ×3 (00:03→11:10)
[2016-09-03] MEDS: LORazepam 0.5 MG TAB PO PRN (00:03)
[2016-09-03] MEDS: ZOLPIDEM 10 MG TAB PO SCH (00:03)
[2016-09-03] MEDS: methylPREDNISolone SOD SUCCI 40 MG/ML 1 ML VIAL IV SCH ×3 (00:05→13:12)
[2016-09-03] MEDS: ONDANSETRON 4 MG/2 ML VIAL IVP PRN (00:40)
[2016-09-03] MEDS: PIPERACILLIN-TAZOBACTAM 3.375 GM in DEXTROSE/WATER 1 50ML.BAG IVPB SCH ×2 (01:36→10:19)
[2016-09-03] MEDS: SODIUM CHLORIDE 0.9% 1,000 ML IV SCH (01:39)
[2016-09-03 02:15] VITALS: RESP 16
[2016-09-03] MEDS: MORPHINE SULFATE ER 15 MG TABLET PO SCH (05:28)
[2016-09-03 06:56] LABS: Glucose,Whole Blood 157 mg/dL (75-99)
[2016-09-03 07:47] VITALS: BP 150/82; PULSE 78; TEMP 97.9
[2016-09-03] MEDS: IPRATROPIUM-ALBUTEROL 3 ML NEB INHALATION SCH ×2 (07:56→12:00)
[2016-09-03 08:30] LABS: CH 26.9; CHCM 31.6; HCT 44.1 % (34.0-46.0); HDW 2.26; HGB 13.6 gm/dL (11.4-16.0); MCH 26.3 pg (25.0-35.0); MCHC 30.8 g/dL (31.0-37.0); MCV 85.4 fL (80.0-100.0); Mean Platelet Volume 6.2; RBC 5.16 m/uL (3.80-5.40); RDW 13.8 % (11.5-15.5)
--- NOTE | 2016-09-03 08:36 | P.DS ---
Providers Date of admission: 08/30/16 23:47 Attending physician: Saman Patrick Primary care physician: Saman Patrick - Discharge Diagnosis(es) (1) Acute exacerbation of chronic obstructive airways disease Current Visit: Yes Status: Acute (2) Cellulitis of chin Current Visit: Yes Status: Acute (3) COPD exacerbation Current Visit: No Status: Acute (4) Cellulitis Current Visit: No Status: Acute Hospital Course: This is a discharge summary 41-year-old white female essentially admitted for exacerbation of COPD with facial cellulitis. She is placed on appropriate history of treatment with antibiotic therapy and did quite well. We had a long discussion again, with smoking cessation although she states she is only smoking 1 cigarette daily. Patient Condition at Discharge: Fair Plan - Discharge Summary New Discharge Prescriptions: Ipratropium-Albuterol Nebulize [Duoneb 0.5 mg-3 mg/3 ml Soln] 3 ml INHALATION RT -QID #120 ampul.neb Levofloxacin [Levaquin] 500 mg PO DAILY #10 tab predniSONE 0 mg PO DIRECTED #18 tab Discharge Medication List Citalopram Hydrobromide [CeleXA] 60 mg PO DAILY 01/06/14 [History] Potassium Chloride [Klor-Con 8] 8 meq PO DAILY 01/06/14 [History] diphenhydrAMINE [Benadryl] 50 mg PO TID 01/06/14 [History] Magnesium 200 mg PO DAILY 05/03/14 [History] Albuterol Nebulized [Ventolin Nebulized] 2.5 mg INHALATION RT-QID PRN 09/02/14 [ History] Albuterol Inhaler [Ventolin Hfa Inhaler] 1 - 2 puff INHALATION RT-Q4H PRN [History] Ipratropium/Albuterol Sulfate [Combivent Respimat Inhaler] 1 - 2 puff INHALATION RT-QID PRN 07/26/15 [History] Zolpidem Tartrate [Ambien] 10 mg PO HS 11/10/15 [History] Morphine Sulfate [Morphine Sulfate ER] 15 mg PO Q12H 11/30/15 [History] oxyCODONE-APAP 7.5-325MG [Percocet 7.5-325 mg] 1 tab PO Q6H PRN 02/11/16 [ History] LORazepam [Ativan] 0.5 mg PO BID 05/24/16 [History] Ipratropium-Albuterol Nebulize [Duoneb 0.5 mg-3 mg/3 ml Soln] 3 ml INHALATION RT -QID #120 ampul.neb 09/03/16 [Rx] Levofloxacin [Levaquin] 500 mg PO DAILY #10 tab 09/03/16 [Rx] predniSONE 0 mg PO DIRECTED #18 tab 09/03/16 [Rx] Follow up Appointment(s)/Referral(s): Saman Patrick MD [Primary Care Provider] - 3 Days [facility], [NON-STAFF] -
[2016-09-03 08:43] LABS: ALT 31 U/L (9-52); AST 16 U/L (14-36); Alkaline Phosphatase 93 U/L (38-126); Anion Gap 13 mmol/L; Blood Urea Nitrogen 28 mg/dL (7-17); Calcium 9.1 mg/dL (8.4-10.2); Carbon Dioxide 39 mmol/L (22-30); Chloride 89 mmol/L (98-107); Glucose 166 mg/dL (74-99); Non-African American GFR(MDRD) >60 (>60 ml/min/1.73 sqM); Potassium 3.8 mmol/L (3.5-5.1); Sodium 141 mmol/L (137-145); Total Bilirubin 0.5 mg/dL (0.2-1.3); Total Protein 7.3 g/dL (6.3-8.2)
[2016-09-03] MEDS: ENOXAPARIN 40 MG/0.4 ML SYRINGE SQ SCH (09:18)
[2016-09-03] MEDS: FUROSEMIDE 10 MG/ML 4 ML VIAL IV SCH (09:18)
[2016-09-03] MEDS: CITALOPRAM HYDROBROMIDE 20 MG TAB PO SCH (09:18)
[2016-09-03] MEDS: PANTOPRAZOLE 40 MG TABLET PO SCH (09:19)
[2016-09-03] MEDS: INSULIN LISPRO (humaLOG) 300 UNIT/3 ML VIAL SQ SCH ×2 (09:19→13:14)
[2016-09-03] MEDS: MAGNESIUM OXIDE 400 MG TAB PO SCH (09:22)
[2016-09-03] MEDS: diphenhydrAMINE 50 MG CAP PO SCH (09:22)
[2016-09-03] MEDS: oxyCODONE-APAP 7.5-325MG 1 EACH TAB PO PRN (09:27)
[2016-09-03] MEDS: VANCOMYCIN 1,500 MG in SODIUM CHLORIDE 0.9% 250 ML IVPB SCH (11:08)
[2016-09-03 11:39] LABS: Glucose,Whole Blood 181 mg/dL (75-99)
== END 2016-09-03 13:20 | disposition home health service (06) | DRG 190 ==
LOC: EC 21:25 → 6SEL 23:47 → 5MS5E 09-03 01:57
PROVIDERS: ADMIT Family Medicine; ATTEND Family Medicine
DX: J44.1 Chronic obstructive pulmonary disease with (acute) exacerbation (principal); J96.21 Acute and chronic respiratory failure with hypoxia; L03.211 Cellulitis of face; J45.909 Unspecified asthma, uncomplicated; F17.210 Nicotine dependence, cigarettes, uncomplicated; G40.909 Epilepsy, unspecified, not intractable, without status epilepticus; R50.9 Fever, unspecified; R10.9 Unspecified abdominal pain; R53.1 Weakness; R91.8 Other nonspecific abnormal finding of lung field; M79.7 Fibromyalgia; M06.9 Rheumatoid arthritis, unspecified; F90.9 Attention-deficit hyperactivity disorder, unspecified type; F41.9 Anxiety disorder, unspecified; M54.9 Dorsalgia, unspecified; M19.90 Unspecified osteoarthritis, unspecified site; F31.9 Bipolar disorder, unspecified; F60.3 Borderline personality disorder; F12.90 Cannabis use, unspecified, uncomplicated; G89.29 Other chronic pain; K58.9 Irritable bowel syndrome, unspecified; G43.909 Migraine, unspecified, not intractable, without status migrainosus; Z87.442 Personal history of urinary calculi; Z86.73 Personal history of transient ischemic attack (TIA), and cerebral infarction without residual deficits; Z16.24 Resistance to multiple antibiotics; Z71.6 Tobacco abuse counseling; Z79.891 Long term (current) use of opiate analgesic; Z79.899 Other long term (current) drug therapy; Z90.49 Acquired absence of other specified parts of digestive tract; Z90.710 Acquired absence of both cervix and uterus; Z98.51 Tubal ligation status; Z86.14 Personal history of Methicillin resistant Staphylococcus aureus infection; Z87.01 Personal history of pneumonia (recurrent); Z87.19 Personal history of other diseases of the digestive system; Z88.6 Allergy status to analgesic agent; Z88.1 Allergy status to other antibiotic agents; Z88.5 Allergy status to narcotic agent; Z88.0 Allergy status to penicillin; Z91.013 Allergy to seafood; Z88.2 Allergy status to sulfonamides; Z91.048 Other nonmedicinal substance allergy status
CPT/HCPCS: 36415; 70491; 71010; 80048; 80053; 80202; 81001; 82550; 82553; 83036; 83605; 83735; 83880; 84484; 85025; 85027; 85610; 85730; 87040; 87086; 94640; 94760; 96361; 96365; 96366; 96367; 96372; 96375; 96376; 99291

== ENCOUNTER 2016-09-26 20:31 | Inpatient (IN) | payer MEDICARE, OTHER ==
[2016-09-26] MEDS ORDERED: TERBUTALINE 1 MG/ML VIAL SQ STA (22:11)
[2016-09-26] MEDS ORDERED: SODIUM CHLORIDE 0.9% 1,000 ML IV STA (22:11)
[2016-09-26] MEDS ORDERED: methylPREDNISolone SOD SUCCI 125 MG/2 ML VIAL IV STA (22:11)
[2016-09-26] MEDS ORDERED: IPRATROPIUM-ALBUTEROL 3 ML NEB INHALATION STA (22:11)
[2016-09-26] MEDS ORDERED: FUROSEMIDE 10 MG/ML 4 ML VIAL IV STA (22:11)
--- NOTE | 2016-09-26 22:20 | ED ---
General Adult HPI - General Chief complaint: Shortness of Breath Stated complaint: vomiting/SOB Time Seen by Provider: 09/26/16 21:55 Source: patient, family, RN notes reviewed, old records reviewed Mode of arrival: wheelchair Limitations: no limitations - History of Present Illness Initial comments: Chief complaint history of present is a 41-year-old female here with a complaint of nausea vomiting diarrhea and shortness of breath. Patient reports been wheezing for several days. Patient falls asleep in mid sentence. She reports she took her morphine and Percocet prior to emergency room because her chronic fibromyalgia pain. - Related Data Home Medications Medication Instructions Recorded Confirmed Citalopram Hydrobromide [CeleXA] 60 mg PO DAILY 01/06/14 09/26/16 Potassium Chloride [Klor-Con 8] 8 meq PO DAILY 01/06/14 09/26/16 diphenhydrAMINE [Benadryl] 50 mg PO TID 01/06/14 09/26/16 Magnesium 200 mg PO DAILY 05/03/14 09/26/16 Albuterol Nebulized [Ventolin 2.5 mg INHALATION RT-QID PRN 09/02/14 09/26/16 Nebulized] Albuterol Inhaler [Ventolin Hfa 1 - 2 puff INHALATION RT-Q4H PRN 11/13/14 Inhaler] Ipratropium/Albuterol Sulfate 1 - 2 puff INHALATION RT-QID PRN 07/26/15 09/26/16 [Combivent Respimat Inhaler] Zolpidem Tartrate [Ambien] 10 mg PO HS 11/10/15 09/26/16 Morphine Sulfate [Morphine Sulfate 15 mg PO Q12H 11/30/15 09/26/16 ER] oxyCODONE-APAP 7.5-325MG [Percocet 1 tab PO Q6H PRN 02/11/16 09/26/16 7.5-325 mg] LORazepam [Ativan] 0.5 mg PO BID 05/24/16 09/26/16 Previous Rx's Medication Instructions Recorded Ipratropium-Albuterol Nebulize 3 ml INHALATION RT-QID #120 09/03/16 [Duoneb 0.5 mg-3 mg/3 ml Soln] ampul.neb Allergies Allergy/AdvReac Type Severity Reaction Status Date / Time adhesive Allergy Rash/Hives Verified 09/26/16 21:16 amoxicillin Allergy Anaphylaxis Verified 09/26/16 21:16 azithromycin [From Zithromax] Allergy Anaphylaxis Verified 09/26/16 21:16 cephalexin monohydrate Allergy Anaphylaxis Verified 09/26/16 21:16 [From Keflex] ciprofloxacin Allergy Anaphylaxis Verified 09/26/16 21:16 clindamycin Allergy Anaphylaxis Verified 09/26/16 21:16 levofloxacin [From Levaquin] Allergy Rash/Hives Verified 09/26/16 21:16 NSAIDS (Non-Steroidal Allergy Rash/Hives Verified 09/26/16 21:16 Anti-Inflamma shellfish derived Allergy Anaphylaxis Verified 09/26/16 21:16 Sulfa (Sulfonamide Allergy Anaphylaxis Verified 09/26/16 21:16 Antibiotics) sulfamethoxazole Allergy Anaphylaxis Verified 09/26/16 21:16 [From Bactrim] tramadol Allergy Unknown Verified 09/26/16 21:16 trimethoprim [From Bactrim] Allergy Anaphylaxis Verified 09/26/16 21:16 Review of Systems ROS Statement: Those systems with pertinent positive or pertinent negative responses have been documented in the HPI. Review of systems no complaint of headache she is chronically short of breath she has COPD. Still smokes. No chest pain. She does a peripheral edema. Recently diagnosed CHF. She does updrafts at home takes multiple medications. All systems were reviewed past medical problems significant for COPD, CHF, fibromyalgia Percocet and morphine. Pneumonia, RA, seizure disorder, episodes in the past. Pancreatitis not associated with alcohol. Bowel syndrome, cellulitis of the chin. Surgeries include , cholecystectomy, hysterectomy, tubal ligation, oral surgery last year. And pancreatic biopsy. Family history no cancers. ALLERGIES multiple as listed on nurse's note. Patient continues smoke denies alcohol ROS Other: All systems not noted in ROS Statement are negative. Past Medical History Past Medical History: Asthma, Heart Failure, COPD, CVA/TIA, Fibromyalgia, Pneumonia, Rheumatoid Arthritis (RA), Seizure Disorder, Syncope Additional Past Medical History / Comment(s): pancreatitis fibrosis diagnosis in August 2015 Chronic back pain/ migraines, chronic abdominal pain. pancreatitis.kidney stones,. IBS, cellulitis of the chin admit with HF on 2015 History of Any Multi-Drug Resistant Organisms: MRSA Date of last positivie culture/infection: 08/14/11 MDRO Source:: Abdomen Past Surgical History: Section, Cholecystectomy, Hysterectomy, Tubal Ligation Additional Past Surgical History / Comment(s): oral surgery . Pancreas biopsy May 2015. Past Anesthesia/Blood Transfusion Reactions: No Reported Reaction Past Psychological History: ADD/ADHD, Anxiety, Bipolar, Depression Additional Psychological History / Comment(s): borderline personality disorder Smoking Status: Current every day smoker Past Alcohol Use History: None Reported Past Drug Use History: Marijuana Additional Drug Use History / Comment(s): a few times a month - Past Family History Father Family Medical History: No Reported History Additional Family Medical History / Comment(s): ADOPTED General Exam - General Exam Comments Initial Comments: General: The patient is somnolent due to her morphine and Percocet taken just prior to coming emergency room for chronic pain., Planes of being short of breath and getting increasingly so over the last several days. Denies fever or chest pain. Patient morbidly obese 5 foot tall and weighs 190. Eye: Pinpoint pupils, round , extra-ocular movements are intact; there is normal conjunctiva bilaterally. No signs of icterus. Ears, nose, mouth and throat: There are moist mucous membranes and no oral lesions. Nearly edentulous Neck: The neck is supple, there is no tenderness . Cardiovascular: Tachycardic heart rate, 120. No murmur, rub or gallop is appreciated. Respiratory: Wheezing bilaterally, rales bilaterally. Short of breath. Pulse ox 92%. Patient continued to smoke. Strongly encouraged to stop. Gastrointestinal: Complains of nausea vomiting lately Back: Chronic back pain Musculoskeletal: Chronic extremity pain, pitting edema CN II-XII intact, There are no obvious motor or sensory deficits. Coordination appears grossly intact. Speech is normal. Skin: Skin is warm and dry and no rashes or lesions are noted. No bruising Psychiatric: History depression not complaining of any problems now Limitations: no limitations Course Vital Signs 09/26/16 09/26/16 09/26/16 21:13 22:00 22:32 Temperature 99.3 F Pulse Rate 120 H 115 H Respiratory 20 26 H Rate Blood Pressure 141/70 O2 Sat by Pulse 92 L Oximetry 09/26/16 22:41 Temperature Pulse Rate 118 H Respiratory Rate Blood Pressure O2 Sat by Pulse Oximetry EKG Findings - EKG Comments: EKG Findings:: EKG was done and reviewed at 2303 showing sinus tachycardia rate 114, no acute ST elevation no ectopy no ischemic changes. [place] interval is 124 QRS 74 QT is [address] Basurto Medical Decision Making - Medical Decision Making Medical decision making the patient's white count 8.4 hemoglobin 13 hematocrit of 42, INR 1.1. Potassium is 4.3 with a BUN 11 creatinine 0.6 with a GFR greater than 60. Glucose 108. BNP is only 258. Troponin less than 0.012. Low magnesium 1.3. This will be supplemented. Chest x-ray was done AP and lateral view and reviewed by radiologist his impression is no radiographic evidence of acute cardiopulmonary disease. As read by Dr. Irwin Patient is not involving the mid sentence. States last time she took any narcotics is over 6 hours ago. Easily aroused. Pulse ox 95. Patient be admitted the hospital exacerbation of COPD - Lab Data Result diagrams: 09/26/16 22:43 09/26/16 22:43 Lab Results 09/26/16 09/26/16 09/26/16 Range/Units 22:43 22:43 22:43 WBC 8.4 (3.8-10.6) k/uL RBC 4.80 (3.80-5.40) m/uL Hgb 13.1 (11.4-16.0) gm/dL Hct 42.5 (34.0-46.0) % MCV 88.4 (80.0-100.0) fL MCH 27.2 (25.0-35.0) pg MCHC 30.8 L (31.0-37.0) g/dL RDW 13.8 (11.5-15.5) % Plt Count 280 (150-450) k/uL Neutrophils % 53 % Lymphocytes % 31 % Monocytes % 7 % Eosinophils % 5 % Basophils % 0 % Neutrophils # 4.5 (1.3-7.7) k/uL Lymphocytes # 2.6 (1.0-4.8) k/uL Monocytes # 0.6 (0-1.0) k/uL Eosinophils # 0.4 (0-0.7) k/uL Basophils # 0.0 (0-0.2) k/uL Hypochromasia Slight PT 11.1 (9.0-12.0) sec INR 1.1 (<1.1) APTT 25.4 (22.0-30.0) sec Sodium 137 (137-145) mmol/L Potassium 4.9 (3.5-5.1) mmol/L Chloride 96 L (98-107) mmol/L Carbon Dioxide 30 (22-30) mmol/L Anion Gap 11 mmol/L BUN 11 (7-17) mg/dL Creatinine 0.60 (0.52-1.04) mg/dL Est GFR (MDRD) Af Amer >60 (>60 ml/min/1.73 sqM) Est GFR (MDRD) Non-Af >60 (>60 ml/min/1.73 sqM) Glucose 108 H (74-99) mg/dL Calcium 9.6 (8.4-10.2) mg/dL Magnesium 1.3 L (1.6-2.3) mg/dL Total Bilirubin 0.5 (0.2-1.3) mg/dL AST 27 (14-36) U/L ALT 35 (9-52) U/L Alkaline Phosphatase 95 (38-126) U/L Total Creatine Kinase (30-135) U/L CK-MB (CK-2) (0.0-2.4) ng/mL CK-MB (CK-2) Rel Index Troponin I (0.000-0.034) ng/mL NT-Pro-B Natriuret Pep pg/mL Total Protein 7.6 (6.3-8.2) g/dL Albumin 4.2 (3.5-5.0) g/dL 09/26/16 09/26/16 Range/Units 22:43 22:43 WBC (3.8-10.6) k/uL RBC (3.80-5.40) m/uL Hgb (11.4-16.0) gm/dL Hct (34.0-46.0) % MCV (80.0-100.0) fL MCH (25.0-35.0) pg MCHC (31.0-37.0) g/dL RDW (11.5-15.5) % Plt Count (150-450) k/uL Neutrophils % % Lymphocytes % % Monocytes % % Eosinophils % % Basophils % % Neutrophils # (1.3-7.7) k/uL Lymphocytes # (1.0-4.8) k/uL Monocytes # (0-1.0) k/uL Eosinophils # (0-0.7) k/uL Basophils # (0-0.2) k/uL Hypochromasia PT (9.0-12.0) sec INR (<1.1) APTT (22.0-30.0) sec Sodium (137-145) mmol/L Potassium (3.5-5.1) mmol/L Chloride (98-107) mmol/L Carbon Dioxide (22-30) mmol/L Anion Gap mmol/L BUN (7-17) mg/dL Creatinine (0.52-1.04) mg/dL Est GFR (MDRD) Af Amer (>60 ml/min/1.73 sqM) Est GFR (MDRD) Non-Af (>60 ml/min/1.73 sqM) Glucose (74-99) mg/dL Calcium (8.4-10.2) mg/dL Magnesium (1.6-2.3) mg/dL Total Bilirubin (0.2-1.3) mg/dL AST (14-36) U/L ALT (9-52) U/L Alkaline Phosphatase (38-126) U/L Total Creatine Kinase 56 (30-135) U/L CK-MB (CK-2) 0.7 (0.0-2.4) ng/mL CK-MB (CK-2) Rel Index 1.3 Troponin I <0.012 (0.000-0.034) ng/mL NT-Pro-B Natriuret Pep 258 pg/mL Total Protein (6.3-8.2) g/dL Albumin (3.5-5.0) g/dL Disposition Clinical Impression: Acute exacerbation of COPD with asthma Disposition: ADMITTED IP TO THIS HOSP Condition: Fair
[2016-09-26 23:09] LABS: Basophils % (A) 0 %; CH 27.1; CHCM 30.7; Eosinophils # (A) 0.4 k/uL (0-0.7); Eosinophils % (A) 5 %; HCT 42.5 % (34.0-46.0); HDW 2.44; HGB 13.1 gm/dL (11.4-16.0); Hypochromasia Slight; Luc # (Auto) 0.31; Luc % (Auto) 4; Lymphocytes # (A) 2.6 k/uL (1.0-4.8); Lymphocytes % (A) 31 %; MCH 27.2 pg (25.0-35.0); MCHC 30.8 g/dL (31.0-37.0); MCV 88.4 fL (80.0-100.0); Mean Platelet Volume 6.5; Monocytes # (A) 0.6 k/uL (0-1.0); Monocytes % (A) 7 %; Neutrophils # (A) 4.5 k/uL (1.3-7.7); Neutrophils % (A) 53 %; RDW 13.8 % (11.5-15.5); WBC 8.4 k/uL (3.8-10.6); WBC (Perox) 9.16
--- NOTE | 2016-09-26 23:24 | XR ---
Chest PA and lateral views INDICATION: Difficulty breathing COMPARISON: CXR 04/02/16 FINDINGS: PA and lateral views of the chest are obtained. Heart size and pulmonary vascularity are normal. There is no airspace consolidation, pleural effusion, or pneumothorax. There are no acute osseous findings. IMPRESSION: No radiographic evidence of acute cardiopulmonary disease.
[2016-09-26 23:25] LABS: INR 1.1 (<1.1); Partial Thromboplastin Time 25.4 sec (22.0-30.0); Prothrombin Time 11.1 sec (9.0-12.0)
[2016-09-26 23:36] LABS: Creatine Kinase 56 U/L (30-135)
[2016-09-26 23:38] LABS: ALT 35 U/L (9-52); AST 27 U/L (14-36); Alkaline Phosphatase 95 U/L (38-126); Anion Gap 11 mmol/L; Blood Urea Nitrogen 11 mg/dL (7-17); Calcium 9.6 mg/dL (8.4-10.2); Carbon Dioxide 30 mmol/L (22-30); Chloride 96 mmol/L (98-107); Glucose 108 mg/dL (74-99); Magnesium 1.3 mg/dL (1.6-2.3); Non-African American GFR(MDRD) >60 (>60 ml/min/1.73 sqM); Potassium 4.9 mmol/L (3.5-5.1); Sodium 137 mmol/L (137-145); Total Bilirubin 0.5 mg/dL (0.2-1.3); Total Protein 7.6 g/dL (6.3-8.2)
[2016-09-26 23:47] LABS: Creatine Kinase MB 0.7 ng/mL (0.0-2.4); Troponin I <0.012 ng/mL (0.000-0.034)
[2016-09-27] MEDS ORDERED: MAGNESIUM SULFATE-D5W PMX 1 GM in DEXTROSE/WATER 1 100ML.BAG IVPB ONE (00:05)
[2016-09-27] MEDS ORDERED: NALOXONE 0.4 MG/ML 1 ML VIAL IV PRN (00:16)
[2016-09-27] MEDS ORDERED: ACETAMINOPHEN TAB 325 MG TAB PO PRN (00:16)
[2016-09-27 02:50] VITALS: BMI 44.9
[2016-09-27 05:42] LABS: Glucose,Whole Blood 196 mg/dL (75-99)
[2016-09-27 06:30] LABS: Creatine Kinase 41 U/L (30-135)
[2016-09-27] MEDS: INSULIN LISPRO (humaLOG) 300 UNIT/3 ML VIAL SQ SCH ×4 (06:38→21:12)
[2016-09-27] MEDS: SODIUM CHLORIDE 0.9% 1,000 ML IV SCH ×2 (06:41→16:00)
[2016-09-27 06:44] LABS: Creatine Kinase MB 0.6 ng/mL (0.0-2.4); Troponin I <0.012 ng/mL (0.000-0.034)
[2016-09-27] MEDS: IPRATROPIUM-ALBUTEROL 3 ML NEB INHALATION PRN ×4 (07:49→20:20)
--- NOTE | 2016-09-27 08:35 | P.HPIM ---
History of Present Illness H&P Date: 09/27/16 Chief Complaint: Dyspnea on exertion This is a history and physical on a 41-year-old white female who is again admitted for exacerbation of COPD. She still continues to smoke but has cut back in the last several years. She does have question secondhand smoke. She states significant shortness of breath and seems lethargic this morning. She is on 4 L of oxygen but arousable. No voiding difficulty stated. No significant nausea, vomiting or diarrhea. She stated chest pain on admission. Cardiac enzymes are so far negative. She is now placed on appropriate methylprednisone. Review of Systems Constitutional: Reports fatigue Eyes: denies blurred vision, denies pain Ears, nose, mouth and throat: Denies headache, Denies sore throat Cardiovascular: Reports chest pain Respiratory: Reports as per HPI, Reports pleurisy, Reports respiratory infections Gastrointestinal: Reports as per HPI Genitourinary: Denies dysuria, Denies hematuria Musculoskeletal: Denies myalgias Integumentary: Denies pruritus, Denies rash Past Medical History Past Medical History: Asthma, Heart Failure, COPD, CVA/TIA, Fibromyalgia, Pneumonia, Rheumatoid Arthritis (RA), Seizure Disorder, Syncope Additional Past Medical History / Comment(s): 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 IBS, cellulitis of the chin, admit with HF on 08/31/2015 History of Any Multi-Drug Resistant Organisms: MRSA Date of last positivie culture/infection: 08/14/11 MDRO Source:: Abdomen Past Surgical History: Section, Cholecystectomy, Hysterectomy, Tubal Ligation Additional Past Surgical History / Comment(s): oral surgery . Pancreas biopsy May 2015. Past Anesthesia/Blood Transfusion Reactions: No Reported Reaction Past Psychological History: ADD/ADHD, Anxiety, Bipolar, Depression Additional Psychological History / Comment(s): borderline personality disorder Smoking Status: Current every day smoker Past Alcohol Use History: None Reported Past Drug Use History: Marijuana Additional Drug Use History / Comment(s): Says she occasionally has edible marijuana- a couple times within the last year. - Past Family History Father Family Medical History: No Reported History Additional Family Medical History / Comment(s): ADOPTED Medications and Allergies Home Medications Medication Instructions Recorded Confirmed Type Citalopram Hydrobromide [CeleXA] 60 mg PO DAILY 01/06/14 09/26/16 History Potassium Chloride [Klor-Con 8] 8 meq PO DAILY 01/06/14 09/26/16 History diphenhydrAMINE [Benadryl] 50 mg PO TID 01/06/14 09/26/16 History Magnesium 200 mg PO DAILY 05/03/14 09/26/16 History Albuterol Nebulized [Ventolin 2.5 mg INHALATION RT-QID PRN 09/02/14 09/26/16 History Nebulized] Albuterol Inhaler [Ventolin Hfa 1 - 2 puff INHALATION RT-Q4H PRN 11/13/14 History Inhaler] Ipratropium/Albuterol Sulfate 1 - 2 puff INHALATION RT-QID PRN 07/26/15 History [Combivent Respimat Inhaler] Zolpidem Tartrate [Ambien] 10 mg PO HS 11/10/15 09/26/16 History Morphine Sulfate [Morphine Sulfate 15 mg PO Q12H 11/30/15 09/26/16 History ER] oxyCODONE-APAP 7.5-325MG [Percocet 1 tab PO Q6H PRN 02/11/16 09/26/16 History 7.5-325 mg] LORazepam [Ativan] 0.5 mg PO BID 05/24/16 09/26/16 History Allergies Allergy/AdvReac Type Severity Reaction Status Date / Time adhesive Allergy Rash/Hives Verified 09/26/16 21:16 amoxicillin Allergy Anaphylaxis Verified 09/26/16 21:16 azithromycin [From Zithromax] Allergy Anaphylaxis Verified 09/26/16 21:16 cephalexin monohydrate Allergy Anaphylaxis Verified 09/26/16 21:16 [From Keflex] ciprofloxacin Allergy Anaphylaxis Verified 09/26/16 21:16 clindamycin Allergy Anaphylaxis Verified 09/26/16 21:16 levofloxacin [From Levaquin] Allergy Rash/Hives Verified 09/26/16 21:16 NSAIDS (Non-Steroidal Allergy Rash/Hives Verified 09/26/16 21:16 Anti-Inflamma shellfish derived Allergy Anaphylaxis Verified 09/26/16 21:16 Sulfa (Sulfonamide Allergy Anaphylaxis Verified 09/26/16 21:16 Antibiotics) sulfamethoxazole Allergy Anaphylaxis Verified 09/26/16 21:16 [From Bactrim] tramadol Allergy Unknown Verified 09/26/16 21:16 trimethoprim [From Bactrim] Allergy Anaphylaxis Verified 09/26/16 21:16 Physical Exam Vitals: Vital Signs Temp Pulse Pulse Resp BP BP Pulse Ox 09/27/16 08:01 112 H 09/27/16 07:51 108 H 09/27/16 03:46 97.0 F L 109 H 20 125/79 97 09/27/16 02:31 96.8 F L 115 H 20 156/79 90 L 09/27/16 01:10 112 H 22 151/80 92 L Intake and Output 09/26/16 09/27/16 09/27/16 22:59 06:59 14:59 Intake Total 630 0 Balance 630 0 Intake: IV 280 Sodium Chloride 0.9% 1, 280 000 ml @ 70 mls/hr IV . [id number] [facility] Rx#:[id number] Amount of Fluid Infused ( 350 ml) Oral 0 Other: # Voids 1 Weight 104.5 kg - Constitutional General appearance: mild distress - EENT Eyes: abnormal pupil - Neck Neck: no lymphadenopathy - Respiratory Respiratory: bilateral: diminished, wheezing - Cardiovascular Rhythm: regular Heart sounds: normal: S1, S2 - Gastrointestinal General gastrointestinal: no organomegaly, soft, no tenderness - Neurologic Neurologic: CNII-XII intact - Musculoskeletal Musculoskeletal: generalized weakness - Psychiatric Psychiatric: A&O x's 3 Results CBC & Chem 7: 09/26/16 22:43 09/26/16 22:43 Labs: Abnormal Lab Results - Last 24 Hours (Table) 09/27/16 Range/Units 05:40 POC Glucose (mg/dL) 196 H (75-99) mg/dL Thrombosis Risk Factor Assmnt - Choose All That Apply Each Factor Represents 1 point: Abnormal pulmonary function (COPD), Age 41-60 years Thrombosis Risk Factor Assessment Total Risk Factor Score: 2 Thrombosis Risk Factor Assessment Level: Low Risk Assessment and Plan (1) Acute exacerbation of COPD with asthma Status: Acute (2) Fibromyalgia Status: Acute Plan: Go ahead and continue current regimen of methylprednisone. If no improvement, consider pulmonology referral. Otherwise, supportive care. Reconcile home medications. Lethargy as otherwise noted. Question overmedication with her narcotics per She orders otherwise. Time with Patient: Greater than 30
[2016-09-27] MEDS ORDERED: Magnesium Replacement Protocol 1 EACH MISC MISCELLANE PRN (09:32)
[2016-09-27] MEDS: methylPREDNISolone SOD SUCCI 125 MG/2 ML VIAL IV SCH ×3 (10:30→23:22)
[2016-09-27] MEDS: MAGNESIUM SULFATE-D5W PMX 1 GM in DEXTROSE/WATER 1 100ML.BAG IVPB SCH ×3 (10:30→13:56)
[2016-09-27] MEDS: MAGNESIUM OXIDE 400 MG TAB PO SCH (10:31)
[2016-09-27] MEDS: CITALOPRAM HYDROBROMIDE 20 MG TAB PO SCH (10:31)
[2016-09-27] MEDS: POTASSIUM CHLORIDE ER 10 MEQ TAB.ER.PRT PO SCH (10:31)
[2016-09-27 11:12] LABS: Creatine Kinase 32 U/L (30-135)
[2016-09-27 11:24] LABS: Creatine Kinase MB 0.5 ng/mL (0.0-2.4); Troponin I <0.012 ng/mL (0.000-0.034)
[2016-09-27 12:26] LABS: Glucose,Whole Blood 168 mg/dL (75-99)
[2016-09-27 17:09] LABS: Glucose,Whole Blood 163 mg/dL (75-99)
[2016-09-27 21:04] LABS: Glucose,Whole Blood 212 mg/dL (75-99)
[2016-09-27] MEDS ORDERED: oxyCODONE-APAP 5-325MG 1 EACH TAB PO PRN (21:36)
[2016-09-28 06:15] LABS: Glucose,Whole Blood 169 mg/dL (75-99)
[2016-09-28] MEDS: INSULIN LISPRO (humaLOG) 300 UNIT/3 ML VIAL SQ SCH ×4 (06:42→21:03)
[2016-09-28] MEDS: SODIUM CHLORIDE 0.9% 1,000 ML IV SCH ×2 (06:44→21:01)
--- NOTE | 2016-09-28 08:38 | P.PN ---
Subjective Principal diagnosis: Exacerbation of COPD. This is a 41-year-old white female who is admitted for exacerbation of COPD. The patient was somewhat lethargic yesterday and is now requesting restarting her home medication. No sniffing nausea or vomiting. I suspect overmedication yesterday and hypoxemia. She is now on 4 L doing well. No voiding difficulties otherwise stated. Objective - Vital Signs Vital signs: Vital Signs Temp 97.3 F L 09/28/16 04:30 Pulse 93 09/28/16 04:30 Resp 18 09/28/16 04:30 BP 138/88 09/28/16 04:30 Pulse Ox 92 L 09/28/16 04:30 Intake & Output 09/27/16 09/28/16 09/28/16 18:59 06:59 18:59 Intake Total 710 840 Output Total 250 900 Balance 460 -60 Weight 103.8 kg Intake: IV 560 840 Sodium Chloride 0.9% 1, 560 840 000 ml @ 70 mls/hr IV . [id number] [facility] Rx#:[id number] Oral 150 Output: Urine 250 900 Other: Voiding Method Toilet # Voids 2 - Constitutional General appearance: Present: obese - EENT Eyes: Absent: abnormal pupil - Respiratory Respiratory: bilateral: CTA - Cardiovascular Rhythm: regular Heart sounds: normal: S1, S2 - Gastrointestinal General gastrointestinal: Present: soft. Absent: tenderness - Neurologic Neurologic: Present: CNII-XII intact - Psychiatric Psychiatric: Present: A&O x's 3 - Labs CBC & Chem 7: 09/26/16 22:43 09/26/16 22:43 Labs: Abnormal Lab Results - Last 24 Hours (Table) 09/27/16 09/27/16 09/27/16 Range/Units 05:33 12:23 16:53 POC Glucose (mg/dL) 168 H 163 H (75-99) mg/dL Magnesium 1.4 L (1.6-2.3) mg/dL 09/27/16 09/28/16 Range/Units 21:03 06:09 POC Glucose (mg/dL) 212 H 169 H (75-99) mg/dL Magnesium (1.6-2.3) mg/dL Assessment and Plan (1) Acute exacerbation of COPD with asthma Status: Acute (2) Fibromyalgia Status: Acute Plan: Reconcile home medications. Check CBC in a.m. Anticipate discharge in next 24-48 hours. Time with Patient: Less than 30
[2016-09-28] MEDS: IPRATROPIUM-ALBUTEROL 3 ML NEB INHALATION PRN ×3 (09:28→15:48)
[2016-09-28] MEDS: MAGNESIUM OXIDE 400 MG TAB PO SCH (09:41)
[2016-09-28] MEDS: methylPREDNISolone SOD SUCCI 125 MG/2 ML VIAL IV SCH ×2 (09:41→18:03)
[2016-09-28] MEDS: POTASSIUM CHLORIDE ER 10 MEQ TAB.ER.PRT PO SCH (09:41)
[2016-09-28] MEDS: CITALOPRAM HYDROBROMIDE 20 MG TAB PO SCH (09:41)
[2016-09-28] MEDS: LORazepam 0.5 MG TAB PO SCH ×2 (09:46→21:02)
[2016-09-28] MEDS: PANTOPRAZOLE 40 MG TABLET PO SCH (09:47)
[2016-09-28 12:08] LABS: Glucose,Whole Blood 162 mg/dL (75-99)
[2016-09-28] MEDS: oxyCODONE-APAP 7.5-325MG 1 EACH TAB PO PRN ×3 (12:40→21:02)
[2016-09-28] MEDS: diphenhydrAMINE 50 MG CAP PO PRN ×2 (13:30→18:03)
[2016-09-28 16:43] LABS: Glucose,Whole Blood 160 mg/dL (75-99)
[2016-09-28 21:04] LABS: Glucose,Whole Blood 166 mg/dL (75-99)
[2016-09-29] MEDS: methylPREDNISolone SOD SUCCI 125 MG/2 ML VIAL IV SCH ×3 (01:05→19:30)
[2016-09-29] MEDS: oxyCODONE-APAP 7.5-325MG 1 EACH TAB PO PRN ×6 (01:06→23:53)
[2016-09-29] MEDS: diphenhydrAMINE 50 MG CAP PO PRN ×2 (01:06→15:22)
[2016-09-29] MEDS: IPRATROPIUM-ALBUTEROL 3 ML NEB INHALATION PRN ×4 (03:35→20:47)
[2016-09-29 05:51] LABS: Glucose,Whole Blood 208 mg/dL (75-99)
[2016-09-29] MEDS: INSULIN LISPRO (humaLOG) 300 UNIT/3 ML VIAL SQ SCH ×4 (06:02→21:15)
[2016-09-29] MEDS: PANTOPRAZOLE 40 MG TABLET PO SCH (06:02)
[2016-09-29 07:00] LABS: CH 27.1; CHCM 30.2; HCT 39.6 % (34.0-46.0); HDW 2.29; HGB 11.8 gm/dL (11.4-16.0); Hypochromasia Moderate; MCHC 29.9 g/dL (31.0-37.0); MCV 90.2 fL (80.0-100.0); Mean Platelet Volume 6.8; RBC 4.39 m/uL (3.80-5.40); RDW 13.9 % (11.5-15.5); WBC 7.7 k/uL (3.8-10.6)
[2016-09-29 07:05] LABS: ALT 28 U/L (9-52); AST 17 U/L (14-36); Alkaline Phosphatase 72 U/L (38-126); Anion Gap 11 mmol/L; Blood Urea Nitrogen 18 mg/dL (7-17); Calcium 8.8 mg/dL (8.4-10.2); Carbon Dioxide 27 mmol/L (22-30); Chloride 102 mmol/L (98-107); Glucose 211 mg/dL (74-99); Non-African American GFR(MDRD) >60 (>60 ml/min/1.73 sqM); Potassium 4.8 mmol/L (3.5-5.1); Sodium 140 mmol/L (137-145); Total Bilirubin 0.3 mg/dL (0.2-1.3); Total Protein 6.4 g/dL (6.3-8.2)
--- NOTE | 2016-09-29 07:58 | P.PN ---
Subjective Principal diagnosis: Exacerbation of COPD. This is a 41-year-old white female who is admitted for exacerbation of COPD. The patient was somewhat lethargic yesterday and is now requesting restarting her home medication. No significant nausea or vomiting. I suspect overmedication 2 days ago and hypoxemia. She is now on 3 L doing well. No voiding difficulties otherwise stated. Objective - Vital Signs Vital signs: Vital Signs Temp 97.1 F L 09/29/16 04:00 Pulse 96 09/29/16 07:50 Resp 17 09/29/16 04:00 BP 169/91 09/29/16 04:00 Pulse Ox 94 L 09/29/16 07:38 Intake & Output 09/28/16 09/29/16 09/29/16 18:59 06:59 18:59 Intake Total 1050 1120 Output Total 350 Balance 700 1120 Weight 105.3 kg Intake: IV 1120 Sodium Chloride 0.9% 1, 1120 000 ml @ 70 mls/hr IV . [id number] [facility] Rx#:[id number] Intake, IV Titration 560 Amount Sodium Chloride 0.9% 1, 560 000 ml @ 70 mls/hr IV . [id number] [facility] Rx#:[id number] Oral 490 Output: Urine 350 Other: Voiding Method Toilet Toilet - Constitutional General appearance: Present: obese - EENT Eyes: Absent: abnormal pupil - Respiratory Respiratory: bilateral: wheezing - Cardiovascular Rhythm: regular Heart sounds: normal: S1, S2 - Gastrointestinal General gastrointestinal: Present: soft. Absent: tenderness - Psychiatric Psychiatric: Present: A&O x's 3 - Labs CBC & Chem 7: 09/29/16 06:00 09/29/16 05:55 Labs: Abnormal Lab Results - Last 24 Hours (Table) 09/28/16 09/28/16 09/28/16 Range/Units 12:00 16:41 21:03 MCHC (31.0-37.0) g/dL BUN (7-17) mg/dL Glucose (74-99) mg/dL POC Glucose (mg/dL) 162 H 160 H 166 H (75-99) mg/dL Albumin (3.5-5.0) g/dL 09/29/16 09/29/16 09/29/16 Range/Units 05:49 05:55 06:00 MCHC 29.9 L (31.0-37.0) g/dL BUN 18 H (7-17) mg/dL Glucose 211 H (74-99) mg/dL POC Glucose (mg/dL) 208 H (75-99) mg/dL Albumin 3.4 L (3.5-5.0) g/dL Assessment and Plan (1) Acute exacerbation of COPD with asthma Status: Acute (2) Fibromyalgia Status: Acute Plan: slowly wean oxygen to see if her pulse oximetry is stabilizing. Restart most home medications today. Anticipate discharge in next 24-48 hours if she continues to improve. However, I had a long discussion with her today regarding smoking cessation. Check CBC and CMP in a.m. Time with Patient: Less than 30
[2016-09-29] MEDS: CITALOPRAM HYDROBROMIDE 20 MG TAB PO SCH (09:18)
[2016-09-29] MEDS: MAGNESIUM OXIDE 400 MG TAB PO SCH (09:18)
[2016-09-29] MEDS: LORazepam 0.5 MG TAB PO SCH ×2 (09:18→21:15)
[2016-09-29] MEDS: POTASSIUM CHLORIDE ER 10 MEQ TAB.ER.PRT PO SCH (09:19)
[2016-09-29 10:01] LABS: Manual Review Performed; Nucleated Red Blood Cells 0 /100 WBC (0-0); Total Cells Counted 100
[2016-09-29] MEDS: SODIUM CHLORIDE 0.9% 1,000 ML IV SCH (11:01)
[2016-09-29 11:50] LABS: Glucose,Whole Blood 137 mg/dL (75-99)
[2016-09-29] MEDS: LISINOPRIL 10 MG TAB PO SCH (14:12)
[2016-09-29] MEDS: amLODIPine 5 MG TAB PO SCH (14:12)
[2016-09-29 16:59] LABS: Glucose,Whole Blood 104 mg/dL (75-99)
[2016-09-29 20:57] LABS: Glucose,Whole Blood 173 mg/dL (75-99)
[2016-09-29] MEDS: MORPHINE SULFATE ER 15 MG TABLET PO SCH (21:14)
[2016-09-30] MEDS: diphenhydrAMINE 50 MG CAP PO PRN ×2 (00:49→07:05)
[2016-09-30] MEDS: methylPREDNISolone SOD SUCCI 125 MG/2 ML VIAL IV SCH ×2 (00:49→07:06)
[2016-09-30] MEDS: SODIUM CHLORIDE 0.9% 1,000 ML IV SCH (01:00)
[2016-09-30] MEDS: oxyCODONE-APAP 7.5-325MG 1 EACH TAB PO PRN (05:08)
[2016-09-30 06:22] LABS: Glucose,Whole Blood 142 mg/dL (75-99)
[2016-09-30] MEDS: INSULIN LISPRO (humaLOG) 300 UNIT/3 ML VIAL SQ SCH (07:06)
[2016-09-30] MEDS: PANTOPRAZOLE 40 MG TABLET PO SCH (07:06)
[2016-09-30] MEDS: IPRATROPIUM-ALBUTEROL 3 ML NEB INHALATION PRN (07:29)
[2016-09-30 07:44] LABS: CH 27.5; CHCM 32.3; HCT 40.5 % (34.0-46.0); HDW 2.41; HGB 13.1 gm/dL (11.4-16.0); MCH 27.5 pg (25.0-35.0); MCHC 32.2 g/dL (31.0-37.0); MCV 85.4 fL (80.0-100.0); Mean Platelet Volume 6.8; RBC 4.75 m/uL (3.80-5.40); WBC 10.4 k/uL (3.8-10.6)
--- NOTE | 2016-09-30 07:49 | P.DS ---
Providers Date of admission: 09/27/16 00:16 Attending physician: Saman Patrcik Primary care physician: Saman Patrick - Discharge Diagnosis(es) (1) Acute exacerbation of COPD with asthma Current Visit: Yes Status: Acute (2) Fibromyalgia Current Visit: No Status: Acute Hospital Course: This is a discharge summary 41-year-old white female essentially admitted for acute exacerbation of COPD. She was placed on appropriate prednisone protocol but has developed new onset hypertension. We had a long discussion about ramifications of this and also tobacco cessation, which is the heart of her problem at this time. She is discharged on prednisone taper antibiotics with lisinopril and Norvasc. The patient will follow-up with me in approximately 3 days. Patient Condition at Discharge: Fair Plan - Discharge Summary New Discharge Prescriptions: Lisinopril [Zestril] 10 mg PO DAILY #30 tab Morphine Sulfate ER [Ms Contin] 15 mg PO Q12HR #60 tablet amLODIPine [Norvasc] 5 mg PO DAILY #30 tab oxyCODONE-APAP 7.5-325MG [Percocet 7.5-325 mg] 1 tab PO Q4H PRN #120 tab PRN Reason: Pain predniSONE 0 mg PO DIRECTED #18 tab Discharge Medication List Citalopram Hydrobromide [CeleXA] 60 mg PO DAILY 01/06/14 [History] Potassium Chloride [Klor-Con 8] 8 meq PO DAILY 01/06/14 [History] diphenhydrAMINE [Benadryl] 50 mg PO TID PRN 01/06/14 [History] Ipratropium/Albuterol Sulfate [Combivent Respimat Inhaler] 2 puff INHALATION RT- QID PRN 07/26/15 [History] Morphine Sulfate [Morphine Sulfate ER] 15 mg PO Q12H 11/30/15 [History] LORazepam [Ativan] 0.5 mg PO BID 05/24/16 [History] Albuterol Sulfate [Proair Hfa] 1 puff INHALATION RT-Q6H PRN 09/27/16 [History] Omeprazole [PriLOSEC] 40 mg PO DAILY 09/27/16 [History] Lisinopril [Zestril] 10 mg PO DAILY #30 tab 09/30/16 [Rx] Morphine Sulfate ER [Ms Contin] 15 mg PO Q12HR #60 tablet 09/30/16 [Rx] amLODIPine [Norvasc] 5 mg PO DAILY #30 tab 09/30/16 [Rx] oxyCODONE-APAP 7.5-325MG [Percocet 7.5-325 mg] 1 tab PO Q4H PRN #120 tab [Rx] predniSONE 0 mg PO DIRECTED #18 tab 09/30/16 [Rx] Follow up Appointment(s)/Referral(s): [facility], [NON-STAFF] - Saman Patrikc MD [Primary Care Provider] - 3 Days
[2016-09-30] MEDS: CITALOPRAM HYDROBROMIDE 20 MG TAB PO SCH (08:23)
[2016-09-30] MEDS: POTASSIUM CHLORIDE ER 10 MEQ TAB.ER.PRT PO SCH (08:23)
[2016-09-30] MEDS: amLODIPine 5 MG TAB PO SCH (08:24)
[2016-09-30] MEDS: MORPHINE SULFATE ER 15 MG TABLET PO SCH (08:24)
[2016-09-30] MEDS: MAGNESIUM OXIDE 400 MG TAB PO SCH (08:24)
[2016-09-30] MEDS: LORazepam 0.5 MG TAB PO SCH (08:24)
[2016-09-30] MEDS: LISINOPRIL 10 MG TAB PO SCH (08:25)
[2016-09-30 08:29] VITALS: BP 183/89; PULSE 105; RESP 18; TEMP 97.3
== END 2016-09-30 09:10 | disposition home health service (06) | DRG 191 ==
LOC: EC 20:31 → 6SEL 09-27 00:16
PROVIDERS: ADMIT Family Medicine; ATTEND Family Medicine
DX: J44.1 Chronic obstructive pulmonary disease with (acute) exacerbation (principal); Z68.42 Body mass index [BMI] 45.0-49.9, adult; I11.0 Hypertensive heart disease with heart failure; I50.9 Heart failure, unspecified; J45.909 Unspecified asthma, uncomplicated; E66.9 Obesity, unspecified; K58.9 Irritable bowel syndrome, unspecified; F32.9 Major depressive disorder, single episode, unspecified; F41.9 Anxiety disorder, unspecified; F17.200 Nicotine dependence, unspecified, uncomplicated; G40.909 Epilepsy, unspecified, not intractable, without status epilepticus; M06.9 Rheumatoid arthritis, unspecified; F90.9 Attention-deficit hyperactivity disorder, unspecified type; F60.3 Borderline personality disorder; G89.29 Other chronic pain; G43.909 Migraine, unspecified, not intractable, without status migrainosus; M54.9 Dorsalgia, unspecified; M79.7 Fibromyalgia; Z87.01 Personal history of pneumonia (recurrent); Z86.73 Personal history of transient ischemic attack (TIA), and cerebral infarction without residual deficits; Z87.442 Personal history of urinary calculi; Z86.14 Personal history of Methicillin resistant Staphylococcus aureus infection; Z90.49 Acquired absence of other specified parts of digestive tract; Z90.710 Acquired absence of both cervix and uterus; Z79.899 Other long term (current) drug therapy
CPT/HCPCS: 36415; 71020; 80053; 82550; 82553; 83735; 83880; 84484; 85025; 85027; 85610; 85730; 87040; 87502; 93005; 94640; 94760; 96365; 96372; 96375; 99285

== ENCOUNTER 2016-10-05 02:52 | Emergency (ER) | payer MEDICARE, OTHER ==
[2016-10-05 03:03] VITALS: TEMP 97
[2016-10-05] MEDS ORDERED: IPRATROPIUM-ALBUTEROL 3 ML NEB INHALATION STA (03:37)
[2016-10-05] MEDS ORDERED: MORPHINE SULFATE 4 MG/ML SYRINGE IV STA (03:38)
[2016-10-05] MEDS ORDERED: methylPREDNISolone SOD SUCCI 125 MG/2 ML VIAL IM ONE (04:06)
[2016-10-05 04:32] LABS: Amylase 48 U/L (30-110)
--- NOTE | 2016-10-05 04:39 | XR ---
EXAM: XR Chest, 1 View. CLINICAL HISTORY: Reason: cough TECHNIQUE: Frontal view of the chest obtained AP upright portable. COMPARISON: 09/26/16 and 04/02/16 chest radiographs, both obtained as 2 view nonportable exams FINDINGS: Lungs: No new parenchymal infiltrate is identified. Pleural space: No pleural effusion or pneumothorax has developed. Heart: The heart size is stable and within normal limits. Mediastinum: The mediastinal and hilar contours are likewise stable. Bones/joints: The bones are stable. No acute displaced fracture is seen. IMPRESSION: No significant change, no new acute intrathoracic abnormality seen.
[2016-10-05] MEDS ORDERED: diphenhydrAMINE 50 MG/ML 1 ML VIAL IVP STA (04:51)
--- NOTE | 2016-10-05 05:08 | ED ---
SOB HPI - General Chief Complaint: Shortness of Breath Stated Complaint: ELVI, pain between shoulders hx:copd Time Seen by Provider: 10/05/16 03:06 Source: patient Mode of arrival: ambulatory Limitations: no limitations - History of Present Illness Initial Comments: This patient is a 41-year-old woman with history of COPD and also history of pancreatitis, who presents with complaint that she is having a nonproductive cough, wheezing, and feeling somewhat short of breath. She did take albuterol prior to coming in and only had minimal relief. She had been admitted in the hospital and then went to leave 2 days ago. In addition, the patient has some upper abdominal pain that she states is identical to pancreatitis and she requests narcotic pain medication for that. She has not been having nausea and vomiting. No fever. No chest pain and no leg pain or swelling. MD Complaint: shortness of breath, cough -: hour(s) Consistency: constant Improves With: bronchodilators Worsens With: nothing Known History Of: COPD Associated Symptoms: cough - Related Data Home Medications Medication Instructions Recorded Confirmed Citalopram Hydrobromide [CeleXA] 60 mg PO DAILY 01/06/14 10/05/16 Potassium Chloride [Klor-Con 8] 8 meq PO DAILY 01/06/14 10/05/16 diphenhydrAMINE [Benadryl] 50 mg PO TID PRN 01/06/14 10/05/16 Ipratropium/Albuterol Sulfate 2 puff INHALATION RT-QID PRN 07/26/15 10/05/16 [Combivent Respimat Inhaler] Morphine Sulfate [Morphine Sulfate 15 mg PO Q12H 11/30/15 10/05/16 ER] LORazepam [Ativan] 0.5 mg PO BID 05/24/16 10/05/16 Albuterol Sulfate [Proair Hfa] 1 puff INHALATION RT-Q6H PRN 09/27/16 10/05/16 Omeprazole [PriLOSEC] 40 mg PO DAILY 09/27/16 10/05/16 Previous Rx's Medication Instructions Recorded Lisinopril [Zestril] 10 mg PO DAILY #30 tab 09/30/16 Morphine Sulfate ER [Ms Contin] 15 mg PO Q12HR #60 tablet 09/30/16 amLODIPine [Norvasc] 5 mg PO DAILY #30 tab 09/30/16 oxyCODONE-APAP 7.5-325MG [Percocet 1 tab PO Q4H PRN #120 tab 09/30/16 7.5-325 mg] predniSONE 0 mg PO DIRECTED #18 tab 09/30/16 Albuterol Inhaler [Ventolin Hfa 1 - 2 puff INHALATION Q6HR PRN #1 10/05/16 Inhaler] inhaler predniSONE 20 mg PO BID #8 tab 10/05/16 Allergies Allergy/AdvReac Type Severity Reaction Status Date / Time adhesive Allergy Rash/Hives Verified 10/05/16 03:03 amoxicillin Allergy Anaphylaxis Verified 10/05/16 03:03 azithromycin [From Zithromax] Allergy Anaphylaxis Verified 10/05/16 03:03 cephalexin monohydrate Allergy Anaphylaxis Verified 10/05/16 03:03 [From Keflex] ciprofloxacin Allergy Anaphylaxis Verified 10/05/16 03:03 clindamycin Allergy Anaphylaxis Verified 10/05/16 03:03 levofloxacin [From Levaquin] Allergy Rash/Hives Verified 10/05/16 03:03 NSAIDS (Non-Steroidal Allergy Rash/Hives Verified 10/05/16 03:03 Anti-Inflamma shellfish derived Allergy Anaphylaxis Verified 10/05/16 03:03 Sulfa (Sulfonamide Allergy Anaphylaxis Verified 10/05/16 03:03 Antibiotics) sulfamethoxazole Allergy Anaphylaxis Verified 10/05/16 03:03 [From Bactrim] tramadol Allergy Unknown Verified 10/05/16 03:03 trimethoprim [From Bactrim] Allergy Anaphylaxis Verified 10/05/16 03:03 Review of Systems ROS Statement: Those systems with pertinent positive or pertinent negative responses have been documented in the HPI. ROS Other: All systems not noted in ROS Statement are negative. Constitutional: Denies: fever, chills, weakness Respiratory: Reports: as per HPI, cough, dyspnea, wheezes. Denies: hemoptysis, stridor Cardiovascular: Denies: edema, syncope Gastrointestinal: Reports: as per HPI, abdominal pain. 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 IBS, cellulitis of the chin History of Any Multi-Drug Resistant Organisms: MRSA Date of last positivie culture/infection: 07/2016 MDRO Source:: chin Past Surgical History: Section, Cholecystectomy, Hysterectomy, Tubal Ligation Additional Past Surgical History / Comment(s): oral surgery . Pancreas biopsy May 2015. Past Anesthesia/Blood Transfusion Reactions: No Reported Reaction Past Psychological History: ADD/ADHD, Anxiety, Bipolar, Depression Additional Psychological History / Comment(s): borderline personality disorder Smoking Status: Current every day smoker Past Alcohol Use History: None Reported Past Drug Use History: Marijuana Additional Drug Use History / Comment(s): Says she occasionally has edible marijuana- a couple times within the last year. - Past Family History Father Family Medical History: No Reported History Additional Family Medical History / Comment(s): ADOPTED General Exam Limitations: no limitations General appearance: alert, in no apparent distress, obese Head exam: Present: atraumatic, normocephalic Eye exam: Present: normal appearance ENT exam: Present: normal oropharynx Neck exam: Present: normal inspection Respiratory exam: Present: wheezes, other (Patient is able to speak in prolonged sentences. She does have some expiratory wheezing, but not a prolonged expiratory phase.). Absent: respiratory distress, rales, rhonchi, stridor, accessory muscle use, decreased breath sounds Cardiovascular Exam: Present: regular rate, normal rhythm, normal heart sounds. Absent: systolic murmur, diastolic murmur, rubs, gallop GI/Abdominal exam: Present: soft. Absent: distended, tenderness, guarding, rebound Extremities exam: Absent: pedal edema, calf tenderness Back exam: Absent: CVA tenderness (R), CVA tenderness (L) Neurological exam: Present: alert Skin exam: Present: warm, dry, intact, normal color. Absent: rash Course Vital Signs 10/05/16 10/05/16 10/05/16 02:56 04:07 04:25 Temperature 97.0 F L Pulse Rate 95 84 80 Respiratory 20 Rate Blood Pressure 136/65 O2 Sat by Pulse 96 Oximetry 10/05/16 05:33 Temperature Pulse Rate 85 Respiratory 16 Rate Blood Pressure 122/71 O2 Sat by Pulse 94 L Oximetry Medical Decision Making - Medical Decision Making This patient is a 41-year-old woman well-known to this department. She is having COPD exacerbation but I have personally seen her when she is much worse. She did have good response to medication and will be discharged to follow-up with her physician, continuing her right agonist and also coarse steroids. - Lab Data Lab Results 10/05/16 Range/Units 04:00 Amylase 48 (30-110) U/L Lipase 53 (23-300) U/L Disposition Clinical Impression: COPD exacerbation Disposition: HOME SELF-CARE Condition: Good Instructions: Chronic Bronchitis (ED) Prescriptions: Albuterol Inhaler [Ventolin Hfa Inhaler] 1 - 2 puff INHALATION Q6HR PRN #1 inhaler PRN Reason: Wheezing predniSONE 20 mg PO BID #8 tab Referrals: Saman Patrick MD [Primary Care Provider] - 1-2 days
[2016-10-05 05:34] VITALS: BP 122/71; PULSE 85; RESP 16
== END 2016-10-05 05:34 | disposition home or self-care (01) ==
LOC: EC 02:52
DX: J44.1 Chronic obstructive pulmonary disease with (acute) exacerbation (principal); J45.909 Unspecified asthma, uncomplicated; M79.7 Fibromyalgia; I50.9 Heart failure, unspecified; M06.9 Rheumatoid arthritis, unspecified; G40.909 Epilepsy, unspecified, not intractable, without status epilepticus; F31.9 Bipolar disorder, unspecified; F90.9 Attention-deficit hyperactivity disorder, unspecified type; F41.9 Anxiety disorder, unspecified; F17.200 Nicotine dependence, unspecified, uncomplicated; Z79.891 Long term (current) use of opiate analgesic; Z79.899 Other long term (current) drug therapy; Z88.0 Allergy status to penicillin; Z88.1 Allergy status to other antibiotic agents; Z88.2 Allergy status to sulfonamides; Z91.013 Allergy to seafood; Z88.6 Allergy status to analgesic agent; Z91.048 Other nonmedicinal substance allergy status
CPT/HCPCS: 36415; 94640; 82150; 83690; 71010; 99285; 96374; 96375; 96372; J2270; J1200; J2930

== ENCOUNTER 2017-02-05 18:21 | Emergency (ER) | payer MEDICARE, OTHER ==
[2017-02-05 19:19] LABS: Basophils % (A) 0 %; CH 27.6; CHCM 32.7; Eosinophils # (A) 0.1 k/uL (0-0.7); Eosinophils % (A) 1 %; HCT 53.5 % (34.0-46.0); HDW 2.36; HGB 17.3 gm/dL (11.4-16.0); Luc % (Auto) 1; Lymphocytes # (A) 2.4 k/uL (1.0-4.8); Lymphocytes % (A) 28 %; MCH 27.3 pg (25.0-35.0); MCHC 32.2 g/dL (31.0-37.0); MCV 84.5 fL (80.0-100.0); Mean Platelet Volume 7.4; Monocytes # (A) 0.3 k/uL (0-1.0); Monocytes % (A) 4 %; Neutrophils # (A) 5.6 k/uL (1.3-7.7); Neutrophils % (A) 65 %; RBC 6.33 m/uL (3.80-5.40); RDW 14.7 % (11.5-15.5); WBC 8.5 k/uL (3.8-10.6); WBC (Perox) 8.73
--- NOTE | 2017-02-05 19:25 | XR ---
EXAMINATION TYPE: XR chest 2V DATE OF EXAM: 02/05/2017 COMPARISON: 10/05/2016 HISTORY: Difficulty breathing TECHNIQUE: Frontal and lateral views of the chest are obtained. FINDINGS: There is a poor inspiration. There is no heart failure. There is probably mild atelectasis at the right posterior lung base. Bony thorax is intact. IMPRESSION: Poor inspiration with minimal right basilar atelectasis. Inspiration is slightly worse t blevins last exam.
[2017-02-05 19:29] LABS: INR 1.2 (<1.2); Partial Thromboplastin Time 24.2 sec (22.0-30.0); Prothrombin Time 12.1 sec (9.0-12.0)
[2017-02-05 19:34] LABS: Creatine Kinase <20 U/L (30-135)
[2017-02-05 19:36] LABS: ALT 36 U/L (9-52); AST 25 U/L (14-36); Alkaline Phosphatase 131 U/L (38-126); Anion Gap 13 mmol/L; Blood Urea Nitrogen 8 mg/dL (7-17); Carbon Dioxide 24 mmol/L (22-30); Chloride 102 mmol/L (98-107); Glucose 100 mg/dL (74-99); Magnesium 1.6 mg/dL (1.6-2.3); Non-African American GFR(MDRD) >60 (>60 ml/min/1.73 sqM); Potassium 4.4 mmol/L (3.5-5.1); Sodium 139 mmol/L (137-145); Total Bilirubin 0.4 mg/dL (0.2-1.3); Total Protein 7.8 g/dL (6.3-8.2)
[2017-02-05 19:43] LABS: Creatine Kinase MB <0.2 ng/mL (0.0-2.4)
[2017-02-05] MEDS ORDERED: ONDANSETRON 4 MG/2 ML VIAL IVP STA (20:32)
[2017-02-05] MEDS ORDERED: MORPHINE SULFATE 2 MG/ML SYRINGE IVP ONE (20:33)
--- NOTE | 2017-02-05 20:33 | ED ---
Chest Pain HPI - General Chief Complaint: Chest Pain Stated Complaint: ELVI, CHEST PAIN, ARM NUMBNESS Time Seen by Provider: 02/05/17 19:03 Source: patient, RN notes reviewed, old records reviewed Mode of arrival: wheelchair Limitations: no limitations - History of Present Illness Initial Comments: 42-year-old female presents emergency room chief complaint of chest pain and shortness of breath and left arm numbness for the past 8 hours. She reports that she's also had some nausea and left upper quadrant abdominal pain. She is concerned that her pancreatitis is flaring up. She reports that she's had significant diarrhea over the past few weeks as well. She denies any fever or chills or other associated symptoms. She reports that she does have a history of COPD and is a chronic cough. Denies any increased sputum production or hemoptysis. She reports that she first started noticed the symptoms at noon today. - Related Data Home Medications Medication Instructions Recorded Confirmed Citalopram Hydrobromide [CeleXA] 60 mg PO DAILY 01/06/14 02/05/17 Potassium Chloride [Klor-Con 8] 8 meq PO DAILY 01/06/14 02/05/17 diphenhydrAMINE [Benadryl] 50 mg PO TID PRN 01/06/14 02/05/17 Ipratropium/Albuterol Sulfate 2 puff INHALATION RT-QID PRN 07/26/15 02/05/17 [Combivent Respimat Inhaler] Morphine Sulfate [Morphine Sulfate 15 mg PO Q12H 11/30/15 02/05/17 ER] Albuterol Sulfate [Proair Hfa] 1 puff INHALATION RT-Q6H PRN 09/27/16 02/05/17 Omeprazole [PriLOSEC] 40 mg PO DAILY 09/27/16 02/05/17 ALPRAZolam [Xanax] 1 mg PO BID PRN 02/05/17 02/05/17 Albuterol Nebulized [Ventolin 2.5 mg INHALATION RT-Q6H PRN 02/05/17 02/05/17 Nebulized] Spironolactone [Aldactone] 25 mg PO DAILY 02/05/17 02/05/17 levETIRAcetam [Keppra] 500 mg PO DAILY 07/22/17 07/22/17 Previous Rx's Medication Instructions Recorded oxyCODONE-APAP 7.5-325MG [Percocet 1 tab PO Q4H PRN #120 tab 09/30/16 7.5-325 mg] Allergies Allergy/AdvReac Type Severity Reaction Status Date / Time adhesive Allergy Rash/Hives Verified 02/05/17 19:07 amoxicillin Allergy Anaphylaxis Verified 02/05/17 19:07 azithromycin [From Zithromax] Allergy Anaphylaxis Verified 02/05/17 19:07 cephalexin monohydrate Allergy Anaphylaxis Verified 02/05/17 19:07 [From Keflex] ciprofloxacin Allergy Anaphylaxis Verified 02/05/17 19:07 clindamycin Allergy Anaphylaxis Verified 02/05/17 19:07 Iodinated Contrast- Oral and Allergy Swelling Unverified 02/05/17 21:53 IV Dye levofloxacin [From Levaquin] Allergy Rash/Hives Verified 02/05/17 19:07 NSAIDS (Non-Steroidal Allergy Rash/Hives Verified 02/05/17 19:07 Anti-Inflamma shellfish derived Allergy Anaphylaxis Verified 02/05/17 19:07 Sulfa (Sulfonamide Allergy Anaphylaxis Verified 02/05/17 19:07 Antibiotics) sulfamethoxazole Allergy Anaphylaxis Verified 02/05/17 19:07 [From Bactrim] tramadol Allergy Unknown Verified 02/05/17 19:07 trimethoprim [From Bactrim] Allergy Anaphylaxis Verified 02/05/17 19:07 Review of Systems ROS Statement: Those systems with pertinent positive or pertinent negative responses have been documented in the HPI. ROS Other: All systems not noted in ROS Statement are negative. EKG Findings - EKG Comments: EKG Findings:: EKG shows normal sinus rhythm. Ventricular rate of 90 bpm. MD interval 144 ms. QRS duration 82 ms. QT QTc is 380/464 ms. No evidence of ST elevation or T-wave inversion. No evidence of atrial or ventricular arrhythmias. 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 IBS, cellulitis of the chin History of Any Multi-Drug Resistant Organisms: MRSA Date of last positivie culture/infection: 07/2016 MDRO Source:: chin Past Surgical History: Section, Cholecystectomy, Hysterectomy, Tubal Ligation Additional Past Surgical History / Comment(s): oral surgery . Pancreas biopsy May 2015. Past Anesthesia/Blood Transfusion Reactions: No Reported Reaction Past Psychological History: ADD/ADHD, Anxiety, Bipolar, Depression Smoking Status: Current every day smoker Past Alcohol Use History: None Reported Past Drug Use History: Marijuana - Past Family History Father Family Medical History: No Reported History Additional Family Medical History / Comment(s): ADOPTED General Exam - General Exam Comments Initial Comments: 42-year-old female. Patient is on appear to be in any acute distress. Limitations: no limitations General appearance: alert, in no apparent distress Head exam: Present: atraumatic, normocephalic, normal inspection Eye exam: Present: normal appearance, PERRL, EOMI. Absent: scleral icterus, conjunctival injection, periorbital swelling ENT exam: Present: normal exam, mucous membranes moist Neck exam: Present: normal inspection. Absent: tenderness, meningismus, lymphadenopathy Respiratory exam: Present: normal lung sounds bilaterally. Absent: respiratory distress, wheezes, rales, rhonchi, stridor Cardiovascular Exam: Present: regular rate, normal rhythm, normal heart sounds. Absent: systolic murmur, diastolic murmur, rubs, gallop, clicks GI/Abdominal exam: Present: soft, tenderness (minimal left upper quadrant tenderness), normal bowel sounds. Absent: distended, guarding, rebound, rigid Extremities exam: Present: normal inspection, full ROM, normal capillary refill. Absent: tenderness, pedal edema, joint swelling, calf tenderness Back exam: Present: normal inspection Neurological exam: Present: alert, oriented X3, CN II-XII intact Psychiatric exam: Present: normal affect, normal mood Skin exam: Present: warm, dry, intact, normal color. Absent: rash Course Vital Signs 02/05/17 02/05/17 02/05/17 18:26 21:21 21:36 Temperature 98.5 F 97.8 F Pulse Rate 91 85 90 Respiratory 20 16 16 Rate Blood Pressure 169/102 159/104 177/88 O2 Sat by Pulse 94 L 97 96 Oximetry 02/05/17 02/05/17 22:05 22:11 Temperature Pulse Rate 92 92 Respiratory Rate Blood Pressure O2 Sat by Pulse Oximetry Chest Pain MDM - MDM 40-year-old [employer] chief complaint of chest pain and shortness of breath. Patient 's lungs are clear to auscultation. The onset of symptoms were approximately 8 hours ago. EKG was reviewed and normal. Troponins and lab work was negative besides the mildly elevated d-dimer 0.65. CT DEVRIES chest was negative for any PE. During the process of evaluation patient's also was seen in the emergency department. He was then transferred to [facility] for acute illness. Patient was informed of this. Patient then started having severe anxiety. Patient was given 1 mg of Ativan. Her mother is picking her up. Discussed that she should follow-up with her primary care provider is there chest pain seems to be unrelated to his any organic cause. Most likely stress-induced anxiety induced which seems reports after the finding of her 's condition. Patient will be discharged at this time and she will be driven to the hospital to visit her from with her mother. Disposition Clinical Impression: Chest pain, Anxiety Disposition: HOME SELF-CARE Condition: Good Instructions: Chest Pain (ED) Additional Instructions: Patient denies to follow-up with her primary care physician. Return to the emergency department if any alarming signs or symptoms occur. Referrals: Saman Patrick MD [Primary Care Provider] - 1-2 days Time of Disposition: 22:27
[2017-02-05] MEDS ORDERED: IPRATROPIUM-ALBUTEROL 3 ML NEB INHALATION STA (20:34)
[2017-02-05 20:40] LABS: Amylase 40 U/L (30-110)
[2017-02-05] MEDS ORDERED: SODIUM CHLORIDE 0.9% 1,000 ML IV SCH (20:45)
[2017-02-05] MEDS ORDERED: diphenhydrAMINE 50 MG/ML 1 ML VIAL IVP STA (21:06)
[2017-02-05] MEDS ORDERED: RX INFO: IV CONTRAST WAS GIVEN 1 EACH MISC MISCELLANE PRN (21:06)
[2017-02-05] MEDS ORDERED: methylPREDNISolone SOD SUCCI 125 MG/2 ML VIAL IV STA (21:12)
[2017-02-05] MEDS ORDERED: FAMOTIDINE 20 MG/2 ML VIAL IV STA (21:12)
[2017-02-05 21:23] VITALS: TEMP 97.8
--- NOTE | 2017-02-05 22:05 | CT ---
EXAMINATION TYPE: CT chest angio for PE DATE OF EXAM: 02/05/2017 COMPARISON: 02/16/2016 HISTORY: CHest Pain ELVI R/O PE CT DLP: 573.70 mGycm Automated exposure control for dose reduction was used. CONTRAST: CT Chest for pulmonary embolism performed with with IV Contrast, patient injected with 80 mL of Omnip aque 350. FINDINGS: The lungs are clear of consolidation. There is no evidence of a pulmonary mass. There is patchy bilat eral subsegmental atelectasis at the lung bases and in both anterior upper lobes. There is no pleural effusion. There is no pericardial effusion. I see no filling defects in the pulmonary arteries. There is no med iastinal adenopathy. There are no hilar masses. There is no sign of aortic aneurysm or dissection. He art size is normal. IMPRESSION: No evidence of pulmonary embolism. There is patchy bilateral pulmonary atelectasis that is worse than last exam.
[2017-02-05] MEDS ORDERED: LORazepam 2 MG/ML SYRINGE IV STA (22:16)
[2017-02-05 22:26] VITALS: BP 191/115; PULSE 90; RESP 20
== END 2017-02-05 22:52 | disposition home or self-care (01) ==
LOC: EC 18:21
DX: F41.9 Anxiety disorder, unspecified (principal); R11.0 Nausea; R79.1 Abnormal coagulation profile; R20.0 Anesthesia of skin; R10.12 Left upper quadrant pain; R19.7 Diarrhea, unspecified; R05 Cough; I50.9 Heart failure, unspecified; G40.909 Epilepsy, unspecified, not intractable, without status epilepticus; G89.29 Other chronic pain; F17.200 Nicotine dependence, unspecified, uncomplicated; Z79.891 Long term (current) use of opiate analgesic; Z79.899 Other long term (current) drug therapy; Z88.0 Allergy status to penicillin; Z88.1 Allergy status to other antibiotic agents; Z88.2 Allergy status to sulfonamides; Z88.6 Allergy status to analgesic agent; Z91.013 Allergy to seafood; Z91.041 Radiographic dye allergy status; Z91.09 Other allergy status, other than to drugs and biological substances; Z90.49 Acquired absence of other specified parts of digestive tract
CPT/HCPCS: 36415; 94640; 93005; 85379; 80053; 82150; 82550; 82553; 83690; 83735; 84484; 85025; 85610; 85730; 71020; 71275; 99285; 96374; 96375 ×5; 96361 ×2; J2060; J1200; J2930; Q9967; J2405; J2270

== ENCOUNTER 2017-02-26 20:27 | Emergency (ER) | payer MEDICARE, OTHER ==
--- NOTE | 2017-02-26 20:40 | ED ---
General Adult HPI - General Chief complaint: Extremity Injury, Lower Stated complaint: Leg Pain Time Seen by Provider: 02/26/17 20:35 Source: patient, RN notes reviewed Mode of arrival: ambulatory Limitations: no limitations - History of Present Illness Initial comments: 42 yo female presents to the emergency department with a chief complaint of right foot redness and swelling. Patient states that for about 3 days. Patient states it is very tender and swollen. Patient denies any falls traumas or injuries to the leg. Patient denies any history of blood clots a long trips or travels. Patient was concerned due to the pain and redness so she thought that she should be evaluated. Patient denies any recent fever, chills, shortness of breath, chest pain, back pain, abdominal pain, nausea vomiting, numbness or tingling, dysuria or hematuria, constipation or diarrhea, headaches or visual changes, or any other current symptoms. - Related Data Home Medications Medication Instructions Recorded Confirmed Citalopram Hydrobromide [CeleXA] 60 mg PO DAILY 01/06/14 02/26/17 Potassium Chloride [Klor-Con 8] 8 meq PO DAILY 01/06/14 02/26/17 diphenhydrAMINE [Benadryl] 50 mg PO TID PRN 01/06/14 02/26/17 Ipratropium/Albuterol Sulfate 2 puff INHALATION RT-QID PRN 07/26/15 02/26/17 [Combivent Respimat Inhaler] Morphine Sulfate [Morphine Sulfate 15 mg PO Q12H 11/30/15 02/26/17 ER] Albuterol Sulfate [Proair Hfa] 1 puff INHALATION RT-Q6H PRN 09/27/16 02/26/17 Omeprazole [PriLOSEC] 40 mg PO DAILY 09/27/16 02/26/17 ALPRAZolam [Xanax] 1 mg PO BID PRN 02/05/17 02/26/17 Albuterol Nebulized [Ventolin 2.5 mg INHALATION RT-Q6H PRN 02/05/17 02/26/17 Nebulized] Spironolactone [Aldactone] 25 mg PO DAILY 02/05/17 02/26/17 levETIRAcetam [Keppra] 500 mg PO DAILY 02/05/17 02/26/17 Previous Rx's Medication Instructions Recorded oxyCODONE-APAP 7.5-325MG [Percocet 1 tab PO Q4H PRN #120 tab 09/30/16 7.5-325 mg] Doxycycline [Vibramycin] 100 mg PO Q12HR 10 Days 02/26/17 Allergies Allergy/AdvReac Type Severity Reaction Status Date / Time adhesive Allergy Rash/Hives Verified 02/26/17 20:31 amoxicillin Allergy Anaphylaxis Verified 02/26/17 20:31 azithromycin [From Zithromax] Allergy Anaphylaxis Verified 02/26/17 20:31 cephalexin monohydrate Allergy Anaphylaxis Verified 02/26/17 20:31 [From Keflex] ciprofloxacin Allergy Anaphylaxis Verified 02/26/17 20:31 clindamycin Allergy Anaphylaxis Verified 02/26/17 20:31 Iodinated Contrast- Oral and Allergy Swelling Unverified 02/26/17 20:31 IV Dye levofloxacin [From Levaquin] Allergy Rash/Hives Verified 02/26/17 20:31 NSAIDS (Non-Steroidal Allergy Rash/Hives Verified 02/26/17 20:31 Anti-Inflamma shellfish derived Allergy Anaphylaxis Verified 02/26/17 20:31 Sulfa (Sulfonamide Allergy Anaphylaxis Verified 02/26/17 20:31 Antibiotics) sulfamethoxazole Allergy Anaphylaxis Verified 02/26/17 20:31 [From Bactrim] tramadol Allergy Unknown Verified 02/26/17 20:31 trimethoprim [From Bactrim] Allergy Anaphylaxis Verified 02/26/17 20:31 Review of Systems ROS Statement: Those systems with pertinent positive or pertinent negative responses have been documented in the HPI. ROS Other: All systems not noted in ROS Statement are negative. 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 IBS, cellulitis of the chin History of Any Multi-Drug Resistant Organisms: MRSA Date of last positivie culture/infection: 07/2016 MDRO Source:: [facility] Past Surgical History: Section, Cholecystectomy, Hysterectomy, Tubal Ligation Additional Past Surgical History / Comment(s): oral surgery . Pancreas biopsy May 2015. Past Anesthesia/Blood Transfusion Reactions: No Reported Reaction Past Psychological History: ADD/ADHD, Anxiety, Bipolar, Depression Smoking Status: Current every day smoker Past Alcohol Use History: None Reported Past Drug Use History: Marijuana - Past Family History Father Family Medical History: No Reported History Additional Family Medical History / Comment(s): ADOPTED General Exam - General Exam Comments Initial Comments: General: The patient is awake and alert, in no distress, and does not appear acutely ill. Neck: The neck is supple, there is no tenderness or JVD. Cardiovascular: There is a regular rate and rhythm. No murmur, rub or gallop is appreciated. Respiratory: Lungs are clear to auscultation, respirations are non-labored, breath sounds are equal. No wheezes, stridor, rales, or rhonchi. Musculoskeletal: Sensation intact with 2+ pulses throughout the right lower extremity. Fund motion right knee and right ankle. There is redness with associated swelling to the right foot. Patient does have right-sided calf tenderness. Neurological: CN II-XII intact, There are no obvious motor or sensory deficits. Coordination appears grossly intact. Speech is normal. Skin: Skin is warm and dry and no rashes or lesions are noted. Psychiatric: Normal mood and affect. Limitations: no limitations Course Vital Signs 02/26/17 20:28 Temperature 97.1 F L Pulse Rate 93 Respiratory 18 Rate Blood Pressure 139/88 O2 Sat by Pulse 95 Oximetry Medical Decision Making - Medical Decision Making 42-year-old female presents for right leg redness and swelling. This time the ultrasound was reviewed and negative. At this time we discussed patient most likely is a regular extremity cellulitis. Discussed we'll start her on antibiotics. We discussed return for hours follow-up and all her questions. She that she understood and she is given this plan. She'll be discharged home. - Radiology Data Radiology results: report reviewed, image reviewed Disposition Clinical Impression: Cellulitis of right lower extremity Disposition: HOME SELF-CARE Condition: Stable Instructions: Cellulitis (ED) Additional Instructions: Please use medication as discussed. Please follow up with family doctor if symptoms have not improved over the next two days. Please return to the emergency room if your symptoms increase or worsen or for any other concerns. Prescriptions: Doxycycline [Vibramycin] 100 mg PO Q12HR 10 Days Referrals: Saman Patrick MD [Primary Care Provider] - 1-2 days Time of Disposition: 22:04
--- NOTE | 2017-02-26 21:58 | US ---
EXAMINATION TYPE: US venous doppler duplex LE RT DATE OF EXAM: 02/26/2017 9:30 PM COMPARISON: 03/23/2016 CLINICAL HISTORY: 42-year-old female with Pain, swelling and redness started 3 days ago. No hx of DV T or on blood thinners. SIDE PERFORMED: Right TECHNIQUE: The lower extremity deep venous system is examined utilizing real time linear array sonog marce with graded compression, doppler sonography and color-flow sonography. FINDINGS: VESSELS IMAGED: External Iliac Vein (EIV) Common Femoral Vein Deep Femoral Vein Greater Saphenous Vein * Femoral Vein Popliteal Vein Small Saphenous Vein * Proximal Calf Veins (* superficial vessels) Right Leg: Appears negative for DVT IMPRESSION: No evidence for DVT within the right lower extremity imaged from the groin to the upper calf.
[2017-02-26] MEDS ORDERED: DOXYCYCLINE 50 MG CAP PO STA (22:05)
[2017-02-26] MEDS ORDERED: Acetaminophen-Codeine 300-30mg TAB PO STA (22:06)
[2017-02-26 22:25] VITALS: BP 136/85; PULSE 87; RESP 20; TEMP 98.1
== END 2017-02-26 22:26 | disposition home or self-care (01) ==
LOC: EC 20:27
DX: L03.115 Cellulitis of right lower limb (principal); G40.909 Epilepsy, unspecified, not intractable, without status epilepticus; F31.9 Bipolar disorder, unspecified; M19.90 Unspecified osteoarthritis, unspecified site; M79.7 Fibromyalgia; I50.9 Heart failure, unspecified; K21.9 Gastro-esophageal reflux disease without esophagitis; K58.9 Irritable bowel syndrome, unspecified; F17.200 Nicotine dependence, unspecified, uncomplicated; Z79.891 Long term (current) use of opiate analgesic; Z79.899 Other long term (current) drug therapy; Z88.0 Allergy status to penicillin; Z88.1 Allergy status to other antibiotic agents; Z88.2 Allergy status to sulfonamides; Z88.6 Allergy status to analgesic agent; Z91.013 Allergy to seafood; Z91.041 Radiographic dye allergy status; Z91.048 Other nonmedicinal substance allergy status
CPT/HCPCS: 99283

== ENCOUNTER 2017-03-23 19:32 | Emergency (ER) | payer MEDICARE, OTHER ==
[2017-03-23] MEDS ORDERED: SODIUM CHLORIDE 0.9% 500 ML IV STA (19:46)
[2017-03-23] MEDS ORDERED: ONDANSETRON 4 MG/2 ML VIAL IVP STA (19:46)
[2017-03-23] MEDS ORDERED: DICYCLOMINE 10 MG/ML 2 ML AMP IM STA (19:46)
[2017-03-23] MEDS ORDERED: FAMOTIDINE 20 MG/2 ML VIAL IV STA (19:49)
--- NOTE | 2017-03-23 19:49 | ED ---
General Adult HPI - General Chief complaint: Abdominal Pain Stated complaint: blood in stool Time Seen by Provider: 03/23/17 19:40 Source: patient, RN notes reviewed Mode of arrival: ambulatory Limitations: no limitations - History of Present Illness Initial comments: 42 yo female presents to the ER with cc of bright red blood per rectum. Patient states she felt like she is back to have diarrhea and then she had bloody diarrhea all over her cancer. Patient states she's never had anything like this before. Patient admits to lower abdominal cramping with this. She denies any vomiting. She does have some nausea. She denies any cough cold any lightheadedness or dizziness. Patient denies any use of blood thinners. Patient was concerned due to the bleeding so she thought that she should be evaluated.Patient denies any recent fever, chills, shortness of breath, chest pain, back pain, vomiting, numbness or tingling, dysuria or hematuria, constipation, headaches or visual changes, or any other current symptoms. - Related Data Home Medications Medication Instructions Recorded Confirmed Citalopram Hydrobromide [CeleXA] 60 mg PO DAILY 01/06/14 03/23/17 Potassium Chloride [Klor-Con 8] 8 meq PO DAILY 01/06/14 03/23/17 diphenhydrAMINE [Benadryl] 50 mg PO TID PRN 01/06/14 03/23/17 Ipratropium/Albuterol Sulfate 2 puff INHALATION RT-QID PRN 07/26/15 03/23/17 [Combivent Respimat Inhaler] Morphine Sulfate [Morphine Sulfate 15 mg PO Q12H 11/30/15 03/23/17 ER] Albuterol Sulfate [Proair Hfa] 1 puff INHALATION RT-Q6H PRN 09/27/16 03/23/17 Omeprazole [PriLOSEC] 40 mg PO DAILY 09/27/16 03/23/17 ALPRAZolam [Xanax] 1 mg PO BID PRN 02/05/17 03/23/17 Albuterol Nebulized [Ventolin 2.5 mg INHALATION RT-Q6H PRN 02/05/17 03/23/17 Nebulized] Spironolactone [Aldactone] 25 mg PO DAILY 02/05/17 03/23/17 levETIRAcetam [Keppra] 500 mg PO DAILY 02/05/17 03/23/17 Previous Rx's Medication Instructions Recorded oxyCODONE-APAP 7.5-325MG [Percocet 1 tab PO Q4H PRN #120 tab 09/30/16 7.5-325 mg] Doxycycline [Vibramycin] 100 mg PO Q12HR 10 Days 02/26/17 Allergies Allergy/AdvReac Type Severity Reaction Status Date / Time adhesive Allergy Rash/Hives Verified 03/23/17 20:26 amoxicillin Allergy Anaphylaxis Verified 03/23/17 20:26 azithromycin [From Zithromax] Allergy Anaphylaxis Verified 03/23/17 20:26 cephalexin monohydrate Allergy Anaphylaxis Verified 03/23/17 20:26 [From Keflex] ciprofloxacin Allergy Anaphylaxis Verified 03/23/17 20:26 clindamycin Allergy Anaphylaxis Verified 03/23/17 20:26 Iodinated Contrast- Oral and Allergy Swelling Verified 03/23/17 20:26 IV Dye levofloxacin [From Levaquin] Allergy Rash/Hives Verified 03/23/17 20:26 NSAIDS (Non-Steroidal Allergy Rash/Hives Verified 03/23/17 20:26 Anti-Inflamma shellfish derived Allergy Anaphylaxis Verified 03/23/17 20:26 Sulfa (Sulfonamide Allergy Anaphylaxis Verified 03/23/17 20:26 Antibiotics) sulfamethoxazole Allergy Anaphylaxis Verified 03/23/17 20:26 [From Bactrim] tramadol Allergy Unknown Verified 03/23/17 20:26 trimethoprim [From Bactrim] Allergy Anaphylaxis Verified 03/23/17 20:26 Review of Systems ROS Statement: Those systems with pertinent positive or pertinent negative responses have been documented in the HPI. ROS Other: All systems not noted in ROS Statement are negative. 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 IBS, cellulitis of the chin History of Any Multi-Drug Resistant Organisms: MRSA Date of last positivie culture/infection: 07/2016 MDRO Source:: chin Past Surgical History: Section, Cholecystectomy, Hysterectomy, Tubal Ligation Additional Past Surgical History / Comment(s): oral surgery . Pancreas biopsy May 2015. Past Anesthesia/Blood Transfusion Reactions: No Reported Reaction Past Psychological History: ADD/ADHD, Anxiety, Bipolar, Depression Smoking Status: Current every day smoker Past Alcohol Use History: None Reported Past Drug Use History: Marijuana - Past Family History Father Family Medical History: No Reported History Additional Family Medical History / Comment(s): ADOPTED General Exam - General Exam Comments Initial Comments: General: The patient is awake and alert, in no distress, and does not appear acutely ill. Eye: Pupils are equal, round and reactive to light, extra-ocular movements are intact; there is normal conjunctiva bilaterally. No signs of icterus. Ears, nose, mouth and throat: There are moist mucous membranes and no oral lesions. Neck: The neck is supple, there is no tenderness. Cardiovascular: There is a regular rate and rhythm. No murmur, rub or gallop is appreciated. Respiratory: Lungs are clear to auscultation, respirations are non-labored, breath sounds are equal. No wheezes, stridor, rales, or rhonchi. Gastrointestinal: Soft, non-distended, non-tender abdomen without masses or organomegaly noted. There is no rebound or guarding present. No CVA tenderness. Bowel sounds are unremarkable. Back: There is no tenderness to palpation in the midline. There is no obvious deformity. No rashes noted. Musculoskeletal: Normal ROM, no tenderness, There is no pedal edema. There is no calf tenderness or swelling. Sensation intact. Pulses equal bilaterally 2+. Neurological: CN II-XII intact, There are no obvious motor or sensory deficits. Coordination appears grossly intact. Speech is normal. Skin: Skin is warm and dry and no rashes or lesions are noted. Psychiatric: Cooperative, appropriate mood & affect, normal judgment. Limitations: no limitations Rectal exam: Present: normal inspection, heme (+) stool Course Vital Signs 03/23/17 03/23/17 19:35 20:44 Temperature 96.9 F L Pulse Rate 90 82 Respiratory 20 18 Rate Blood Pressure 165/73 143/76 O2 Sat by Pulse 94 L 99 Oximetry Medical Decision Making - Medical Decision Making 42-year-old female presents to the emergency room chief complaint of right bright red blood per rectum at this time x-ray and lab work was reviewed. At this time we did discuss return parameters all the questions. We discussed possible etiologies for her symptoms. Patient stated that She Is Given Plan. All Questions Have Been Answered. She Will Be Discharged Home. - Lab Data Result diagrams: 03/23/17 20:20 03/23/17 20:20 Lab Results 03/23/17 03/23/17 03/23/17 Range/Units 20:20 20:20 20:20 WBC 8.8 (3.8-10.6) k/uL RBC 5.44 H (3.80-5.40) m/uL Hgb 14.9 (11.4-16.0) gm/dL Hct 45.8 (34.0-46.0) % MCV 84.2 (80.0-100.0) fL MCH 27.4 (25.0-35.0) pg MCHC 32.6 (31.0-37.0) g/dL RDW 15.1 (11.5-15.5) % Plt Count 354 (150-450) k/uL Neutrophils % 47 % Lymphocytes % 44 % Monocytes % 5 % Eosinophils % 2 % Basophils % 1 % Neutrophils # 4.1 (1.3-7.7) k/uL Lymphocytes # 3.9 (1.0-4.8) k/uL Monocytes # 0.4 (0-1.0) k/uL Eosinophils # 0.2 (0-0.7) k/uL Basophils # 0.1 (0-0.2) k/uL PT (9.0-12.0) sec INR (<1.2) APTT (22.0-30.0) sec Sodium 139 (137-145) mmol/L Potassium 3.7 (3.5-5.1) mmol/L Chloride 100 (98-107) mmol/L Carbon Dioxide 32 H (22-30) mmol/L Anion Gap 7 mmol/L BUN 7 (7-17) mg/dL Creatinine 0.73 (0.52-1.04) mg/dL Est GFR (MDRD) Af Amer >60 (>60 ml/min/1.73 sqM) Est GFR (MDRD) Non-Af >60 (>60 ml/min/1.73 sqM) Glucose 98 (74-99) mg/dL Calcium 8.5 (8.4-10.2) mg/dL Total Bilirubin 0.2 (0.2-1.3) mg/dL AST 25 (14-36) U/L ALT 34 (9-52) U/L Alkaline Phosphatase 90 (38-126) U/L Total Protein 6.3 (6.3-8.2) g/dL Albumin 3.5 (3.5-5.0) g/dL Urine Color Urine Appearance (Clear) Urine pH (5.0-8.0) Ur Specific [place] (1.001-1.035) Urine Protein (Negative) Urine Glucose (UA) (Negative) Urine Ketones (Negative) Urine Blood (Negative) Urine Nitrite (Negative) Urine Bilirubin (Negative) Urine Urobilinogen (<2.0) mg/dL Ur Leukocyte Esterase (Negative) Stool Occult Blood Negative (Negative) 03/23/17 03/23/17 Range/Units 20:20 20:20 WBC (3.8-10.6) k/uL RBC (3.80-5.40) m/uL Hgb (11.4-16.0) gm/dL Hct (34.0-46.0) % MCV (80.0-100.0) fL MCH (25.0-35.0) pg MCHC (31.0-37.0) g/dL RDW (11.5-15.5) % Plt Count (150-450) k/uL Neutrophils % % Lymphocytes % % Monocytes % % Eosinophils % % Basophils % % Neutrophils # (1.3-7.7) k/uL Lymphocytes # (1.0-4.8) k/uL Monocytes # (0-1.0) k/uL Eosinophils # (0-0.7) k/uL Basophils # (0-0.2) k/uL PT 11.1 (9.0-12.0) sec INR 1.1 (<1.2) APTT 24.1 (22.0-30.0) sec Sodium (137-145) mmol/L Potassium (3.5-5.1) mmol/L Chloride (98-107) mmol/L Carbon Dioxide (22-30) mmol/L Anion Gap mmol/L BUN (7-17) mg/dL Creatinine (0.52-1.04) mg/dL Est GFR (MDRD) Af Amer (>60 ml/min/1.73 sqM) Est GFR (MDRD) Non-Af (>60 ml/min/1.73 sqM) Glucose (74-99) mg/dL Calcium (8.4-10.2) mg/dL Total Bilirubin (0.2-1.3) mg/dL AST (14-36) U/L ALT (9-52) U/L Alkaline Phosphatase (38-126) U/L Total Protein (6.3-8.2) g/dL Albumin (3.5-5.0) g/dL Urine Color Light Yellow Urine Appearance Clear (Clear) Urine pH 6.0 (5.0-8.0) Ur Specific [place] 1.006 (1.001-1.035) Urine Protein Negative (Negative) Urine Glucose (UA) Negative (Negative) Urine Ketones Negative (Negative) Urine Blood Negative (Negative) Urine Nitrite Negative (Negative) Urine Bilirubin Negative (Negative) Urine Urobilinogen <2.0 (<2.0) mg/dL Ur Leukocyte Esterase Negative (Negative) Stool Occult Blood (Negative) - Radiology Data Radiology results: report reviewed, image reviewed Disposition Clinical Impression: Diarrhea, Abdominal cramping Disposition: HOME SELF-CARE Condition: Stable Instructions: Acute Diarrhea (ED) Additional Instructions: Please use medication as discussed. Please follow up with family doctor if symptoms have not improved over the next two days. Please return to the emergency room if your symptoms increase or worsen or for any other concerns. Referrals: Saman Patrick MD [Primary Care Provider] - 1-2 days Time of Disposition: 21:15
[2017-03-23] MEDS ORDERED: diphenhydrAMINE 50 MG/ML 1 ML VIAL IVP STA (20:22)
[2017-03-23 20:33] LABS: Basophils # (A) 0.1 k/uL (0-0.2); Basophils % (A) 1 %; CH 27.9; CHCM 33.4; Eosinophils # (A) 0.2 k/uL (0-0.7); Eosinophils % (A) 2 %; HCT 45.8 % (34.0-46.0); HDW 2.51; HGB 14.9 gm/dL (11.4-16.0); Luc # (Auto) 0.14; Luc % (Auto) 2; Lymphocytes # (A) 3.9 k/uL (1.0-4.8); Lymphocytes % (A) 44 %; MCH 27.4 pg (25.0-35.0); MCHC 32.6 g/dL (31.0-37.0); MCV 84.2 fL (80.0-100.0); Monocytes # (A) 0.4 k/uL (0-1.0); Monocytes % (A) 5 %; Neutrophils # (A) 4.1 k/uL (1.3-7.7); Neutrophils % (A) 47 %; RBC 5.44 m/uL (3.80-5.40); RDW 15.1 % (11.5-15.5); WBC 8.8 k/uL (3.8-10.6); WBC (Perox) 8.44
[2017-03-23 20:37] LABS: Appearance,Urine Clear (Clear); Bilirubin,Urine Negative (Negative); Glucose,Urine (UA) Negative (Negative); Ketones,Urine Negative (Negative); Leukocyte Esterase,Urine Negative (Negative); Nitrite,Urine Negative (Negative); Protein,Urine Negative (Negative); Specific Gravity,Urine 1.006 (1.001-1.035); UA Billing (MACRO vs. MICRO) CHEM; Urobilinogen,Urine <2.0 mg/dL (<2.0)
[2017-03-23 20:42] LABS: INR 1.1 (<1.2); Partial Thromboplastin Time 24.1 sec (22.0-30.0); Prothrombin Time 11.1 sec (9.0-12.0)
[2017-03-23 20:49] LABS: ALT 34 U/L (9-52); AST 25 U/L (14-36); Alkaline Phosphatase 90 U/L (38-126); Anion Gap 7 mmol/L; Blood Urea Nitrogen 7 mg/dL (7-17); Calcium 8.5 mg/dL (8.4-10.2); Carbon Dioxide 32 mmol/L (22-30); Chloride 100 mmol/L (98-107); Glucose 98 mg/dL (74-99); Non-African American GFR(MDRD) >60 (>60 ml/min/1.73 sqM); Potassium 3.7 mmol/L (3.5-5.1); Sodium 139 mmol/L (137-145); Total Bilirubin 0.2 mg/dL (0.2-1.3); Total Protein 6.3 g/dL (6.3-8.2)
--- NOTE | 2017-03-23 21:05 | XR ---
EXAMINATION TYPE: XR abdomen 2V DATE OF EXAM: 03/23/2017 HISTORY: Pain. Technique: 3 views of the abdomen are submitted. Comparison: None. Findings: There is no convincing evidence of pneumoperitoneum. The Bowel gas pattern is nonspecific and nonobstructive. No sizable air-fluid levels are seen. No mass effects are noted. Cholecystectomy clips are in place. No renal calcifications are identified. IMPRESSION: 1. Nonspecific nonobstructive bowel gas pattern
[2017-03-23] MEDS ORDERED: MORPHINE SULFATE 2 MG/ML SYRINGE IVP STA (21:13)
[2017-03-23 21:38] VITALS: BP 154/66; PULSE 85; RESP 16; TEMP 98.2
== END 2017-03-23 21:38 | disposition home or self-care (01) ==
LOC: EC 19:32
DX: R10.30 Lower abdominal pain, unspecified (principal); R19.7 Diarrhea, unspecified; R11.0 Nausea; G40.909 Epilepsy, unspecified, not intractable, without status epilepticus; G89.29 Other chronic pain; I50.9 Heart failure, unspecified; F32.9 Major depressive disorder, single episode, unspecified; F17.200 Nicotine dependence, unspecified, uncomplicated; Z79.891 Long term (current) use of opiate analgesic; Z79.899 Other long term (current) drug therapy; Z88.0 Allergy status to penicillin; Z88.1 Allergy status to other antibiotic agents; Z88.2 Allergy status to sulfonamides; Z88.5 Allergy status to narcotic agent; Z88.6 Allergy status to analgesic agent; Z91.013 Allergy to seafood; Z91.041 Radiographic dye allergy status; Z91.09 Other allergy status, other than to drugs and biological substances; Z90.49 Acquired absence of other specified parts of digestive tract
CPT/HCPCS: 36415; 86900; 86901; 80053; 85025; 85610; 85730; 86850; 82272; 81003; 74020; 99284; 96374; 96375 ×3; 96372; J1200; J0500; J2405; J2270

== ENCOUNTER 2018-07-15 13:32 | Inpatient (IN) | payer MEDICARE, OTHER ==
[2018-07-15] MEDS ORDERED: ALBUTEROL NEBULIZED 2.5 MG/3 ML INHALATION STA (14:06)
[2018-07-15] MEDS ORDERED: methylPREDNISolone SOD SUCCI 125 MG/2 ML VIAL IV STA (14:06)
[2018-07-15] MEDS ORDERED: SODIUM CHLORIDE 0.9% 1,000 ML IV STA ×2 (14:06)
[2018-07-15] MEDS ORDERED: IPRATROPIUM 0.5 MG/2.5 ML NEBU INHALATION STA (14:06)
[2018-07-15 14:40] LABS: RBC 5.75 m/uL (3.80-5.40); WBC 8.8 k/uL (3.8-10.6)
[2018-07-15 14:41] LABS: Basophils % (A) 0 %; Eosinophils # (A) 0.2 k/uL (0-0.7); Eosinophils % (A) 2 %; HCT 47.7 % (34.0-46.0); HGB 15.9 gm/dL (11.4-16.0); Lymphocytes # (A) 1.9 k/uL (1.0-4.8); Lymphocytes % (A) 21 %; MCH 27.6 pg (25.0-35.0); MCHC 33.3 g/dL (31.0-37.0); MCV 82.9 fL (80.0-100.0); Mean Platelet Volume 6.9; Monocytes # (A) 0.4 k/uL (0-1.0); Monocytes % (A) 5 %; Neutrophils # (A) 6.2 k/uL (1.3-7.7); Neutrophils % (A) 70 %; Platelet Count 299 k/uL (150-450); RDW 13.5 % (11.5-15.5)
[2018-07-15 14:48] LABS: ALT 32 U/L (9-52); AST 22 U/L (14-36); Albumin 4.1 g/dL (3.5-5.0); Alkaline Phosphatase 90 U/L (38-126); Anion Gap 8 mmol/L; Blood Urea Nitrogen 17 mg/dL (7-17); Calcium 9.7 mg/dL (8.4-10.2); Carbon Dioxide 32 mmol/L (22-30); Chloride 98 mmol/L (98-107); Glucose 116 mg/dL (74-99); Magnesium 1.6 mg/dL (1.6-2.3); Potassium 3.6 mmol/L (3.5-5.1); Sodium 138 mmol/L (137-145); Total Bilirubin 0.6 mg/dL (0.2-1.3); Total Protein 7.4 g/dL (6.3-8.2)
[2018-07-15 14:49] LABS: Creatine Kinase 21 U/L (30-135); Partial Thromboplastin Time 24.5 sec (22.0-30.0)
[2018-07-15 15:00] LABS: Creatine Kinase MB 0.3 ng/mL (0.0-2.4); Troponin I <0.012 ng/mL (0.000-0.034)
--- NOTE | 2018-07-15 15:04 | ED ---
SOB HPI - General Chief Complaint: Chest Pain Stated Complaint: Chest Pain Time Seen by Provider: 07/15/18 13:43 Source: patient, RN notes reviewed, old records reviewed Mode of arrival: ambulatory Limitations: no limitations - History of Present Illness Initial Comments: This is a 43-year-old female the ER for evaluation. Patient does say for evaluation regarding shortness of breath shortness of breath cough and congestion. No fevers. His increasing shortness of breath, patient will facility. No recent hospital admissions. No fevers. She was admitted to chest pain substernal chest pain worsened she coughs. Patient does have similar pain in the past. No recent travel history no sick contacts. Patient denies fever cough or congestion MD Complaint: shortness of breath, cough, chest pain -: days(s) Severity: moderate Severity scale (1-10): 3 Quality: aching Consistency: constant Improves With: bronchodilators Worsens With: nothing Known History Of: COPD, asthma Context: recent URI Associated Symptoms: chest pain - Related Data Home Medications Medication Instructions Recorded Confirmed Citalopram Hydrobromide [CeleXA] 60 mg PO DAILY 01/06/14 07/15/18 Potassium Chloride [Klor-Con 8] 8 meq PO DAILY 01/06/14 07/15/18 Ipratropium/Albuterol Sulfate 1 puff INHALATION RT-QID PRN 07/26/15 07/15/18 [Combivent Respimat Inhaler] Spironolactone [Aldactone] 25 mg PO DAILY 02/05/17 07/15/18 ALPRAZolam [Xanax] 0.5 mg PO TID PRN 07/15/18 07/15/18 Fluticasone Nasal [place] [Flonase 1 spray EA NOSTRIL BID 07/15/18 07/15/18 Nasal [place]] amLODIPine [Norvasc] 10 mg PO DAILY 07/15/18 07/15/18 oxyCODONE HCL/ACETAMINOPHEN 1 tab PO Q4HR PRN 07/15/18 07/15/18 [Percocet 10-325 mg] Allergies Allergy/AdvReac Type Severity Reaction Status Date / Time adhesive Allergy Rash/Hives Verified 07/15/18 14:28 amoxicillin Allergy Anaphylaxis Verified 07/15/18 14:28 azithromycin [From Zithromax] Allergy Anaphylaxis Verified 07/15/18 14:28 cephalexin monohydrate Allergy Anaphylaxis Verified 07/15/18 14:28 [From Keflex] ciprofloxacin Allergy Anaphylaxis Verified 07/15/18 14:28 clindamycin Allergy Anaphylaxis Verified 07/15/18 14:28 Iodinated Contrast- Oral and Allergy Swelling Verified 07/15/18 14:28 IV Dye levofloxacin [From Levaquin] Allergy Rash/Hives Verified 07/15/18 14:28 NSAIDS (Non-Steroidal Allergy Rash/Hives Verified 07/15/18 14:28 Anti-Inflamma shellfish derived Allergy Anaphylaxis Verified 07/15/18 14:28 Sulfa (Sulfonamide Allergy Anaphylaxis Verified 07/15/18 14:28 Antibiotics) sulfamethoxazole Allergy Anaphylaxis Verified 07/15/18 14:28 [From Bactrim] tramadol Allergy Unknown Verified 07/15/18 14:28 trimethoprim [From Bactrim] Allergy Anaphylaxis Verified 07/15/18 14:28 Review of Systems ROS Statement: Those systems with pertinent positive or pertinent negative responses have been documented in the HPI. ROS Other: All systems not noted in ROS Statement are negative. 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 IBS, cellulitis of the chin History of Any Multi-Drug Resistant Organisms: MRSA Date of last positivie culture/infection: 07/2016 MDRO Source:: chin Past Surgical History: Section, Cholecystectomy, Hysterectomy, Tubal Ligation Additional Past Surgical History / Comment(s): oral surgery . Pancreas biopsy May 2015. Past Anesthesia/Blood Transfusion Reactions: No Reported Reaction Past Psychological History: ADD/ADHD, Anxiety, Bipolar, Depression Smoking Status: Current every day smoker Past Alcohol Use History: None Reported Past Drug Use History: Marijuana - Past Family History Father Family Medical History: No Reported History Additional Family Medical History / Comment(s): ADOPTED General Exam Limitations: no limitations General appearance: alert, in no apparent distress Head exam: Present: atraumatic, normocephalic, normal inspection Eye exam: Present: normal appearance, PERRL, EOMI. Absent: scleral icterus, conjunctival injection, periorbital swelling ENT exam: Present: normal exam, mucous membranes moist Neck exam: Present: normal inspection. Absent: tenderness, meningismus, lymphadenopathy Respiratory exam: Present: respiratory distress, wheezes, accessory muscle use, decreased breath sounds, prolonged expiratory. Absent: rales, rhonchi, stridor Cardiovascular Exam: Present: regular rate, normal rhythm, normal heart sounds. Absent: systolic murmur, diastolic murmur, rubs, gallop, clicks GI/Abdominal exam: Present: soft, normal bowel sounds. Absent: distended, tenderness, guarding, rebound, rigid Extremities exam: Present: normal inspection, full ROM, normal capillary refill. Absent: tenderness, pedal edema, joint swelling, calf tenderness Back exam: Present: normal inspection Neurological exam: Present: alert, oriented X3, CN II-XII intact Psychiatric exam: Present: normal affect, normal mood Skin exam: Present: warm, dry, intact, normal color. Absent: rash Course Vital Signs 07/15/18 07/15/18 07/15/18 13:34 14:00 15:09 Temperature 98.4 F Pulse Rate 94 92 Respiratory 18 20 Rate Blood Pressure 161/93 O2 Sat by Pulse 93 L Oximetry 07/15/18 07/15/18 07/15/18 15:21 15:35 16:00 Temperature 98.0 F Pulse Rate 92 98 91 Respiratory 22 16 Rate Blood Pressure 166/95 O2 Sat by Pulse 100 94 L Oximetry - Reevaluation(s) Reevaluation #1: 07/15/18 15:19 Medical record is reviewed and evaluated. Patient has history of multiple similar evaluation Reevaluation #2: 07/15/18 15:19 She does have improvement with breathing treatments here in the ER Reevaluation #3: 07/15/18 17:22 Patient does feel better but not improved enough to go home, states she still shortness of breath Medical Decision Making - Medical Decision Making 43 female the ER for evaluation will is ER for evaluation of shortness of breath , coming of COPD exacerbation mild pulmonary edema. Patient will be admitted for breathing treatments and diuresis. - Lab Data Result diagrams: 07/15/18 14:15 07/15/18 14:15 Lab Results 07/15/18 07/15/18 07/15/18 Range/Units 14:15 14:15 14:15 WBC 8.8 (3.8-10.6) k/uL RBC 5.75 H (3.80-5.40) m/uL Hgb 15.9 (11.4-16.0) gm/dL Hct 47.7 H (34.0-46.0) % MCV 82.9 (80.0-100.0) fL MCH 27.6 (25.0-35.0) pg MCHC 33.3 (31.0-37.0) g/dL RDW 13.5 (11.5-15.5) % Plt Count 299 (150-450) k/uL Neutrophils % 70 % Lymphocytes % 21 % Monocytes % 5 % Eosinophils % 2 % Basophils % 0 % Neutrophils # 6.2 (1.3-7.7) k/uL Lymphocytes # 1.9 (1.0-4.8) k/uL Monocytes # 0.4 (0-1.0) k/uL Eosinophils # 0.2 (0-0.7) k/uL Basophils # 0.0 (0-0.2) k/uL PT (9.0-12.0) sec INR (<1.2) APTT (22.0-30.0) sec Sodium 138 (137-145) mmol/L Potassium 3.6 (3.5-5.1) mmol/L Chloride 98 (98-107) mmol/L Carbon Dioxide 32 H (22-30) mmol/L Anion Gap 8 mmol/L BUN 17 (7-17) mg/dL Creatinine 0.68 (0.52-1.04) mg/dL Est GFR (CKD-EPI)AfAm >90 (>60 ml/min/1.73 sqM) Est GFR (CKD-EPI)NonAf >90 (>60 ml/min/1.73 sqM) Glucose 116 H (74-99) mg/dL Calcium 9.7 (8.4-10.2) mg/dL Magnesium 1.6 (1.6-2.3) mg/dL Total Bilirubin 0.6 (0.2-1.3) mg/dL AST 22 (14-36) U/L ALT 32 (9-52) U/L Alkaline Phosphatase 90 (38-126) U/L Total Creatine Kinase 21 L (30-135) U/L CK-MB (CK-2) 0.3 (0.0-2.4) ng/mL CK-MB (CK-2) Rel Index 1.4 Troponin I <0.012 (0.000-0.034) ng/mL NT-Pro-B Natriuret Pep pg/mL Total Protein 7.4 (6.3-8.2) g/dL Albumin 4.1 (3.5-5.0) g/dL 07/15/18 07/15/18 Range/Units 14:15 14:15 WBC (3.8-10.6) k/uL RBC (3.80-5.40) m/uL Hgb (11.4-16.0) gm/dL Hct (34.0-46.0) % MCV (80.0-100.0) fL MCH (25.0-35.0) pg MCHC (31.0-37.0) g/dL RDW (11.5-15.5) % Plt Count (150-450) k/uL Neutrophils % % Lymphocytes % % Monocytes % % Eosinophils % % Basophils % % Neutrophils # (1.3-7.7) k/uL Lymphocytes # (1.0-4.8) k/uL Monocytes # (0-1.0) k/uL Eosinophils # (0-0.7) k/uL Basophils # (0-0.2) k/uL PT 11.0 (9.0-12.0) sec INR 1.0 (<1.2) APTT 24.5 (22.0-30.0) sec Sodium (137-145) mmol/L Potassium (3.5-5.1) mmol/L Chloride (98-107) mmol/L Carbon Dioxide (22-30) mmol/L Anion Gap mmol/L BUN (7-17) mg/dL Creatinine (0.52-1.04) mg/dL Est GFR (CKD-EPI)AfAm (>60 ml/min/1.73 sqM) Est GFR (CKD-EPI)NonAf (>60 ml/min/1.73 sqM) Glucose (74-99) mg/dL Calcium (8.4-10.2) mg/dL Magnesium (1.6-2.3) mg/dL Total Bilirubin (0.2-1.3) mg/dL AST (14-36) U/L ALT (9-52) U/L Alkaline Phosphatase (38-126) U/L Total Creatine Kinase (30-135) U/L CK-MB (CK-2) (0.0-2.4) ng/mL CK-MB (CK-2) Rel Index Troponin I (0.000-0.034) ng/mL NT-Pro-B Natriuret Pep 40 pg/mL Total Protein (6.3-8.2) g/dL Albumin (3.5-5.0) g/dL - EKG Data -: EKG Interpreted by Me (EKG shows normal sinus rhythm rate 83, FL 142, QRS 86 , QTc 460) - Radiology Data Radiology results: report reviewed (Chest x-ray shows mild peripheral perfusion) , image reviewed Disposition Clinical Impression: COPD (chronic obstructive pulmonary disease), Acute exacerbation of chronic obstructive airways disease, Acute pulmonary edema, Congestive heart failure Disposition: ADMITTED IP TO THIS HOSP Condition: Fair Is patient prescribed a controlled substance at d/c from ED?: No Referrals: Saman Patrick MD [Primary Care Provider] - 1-2 days
[2018-07-15] MEDS ORDERED: MORPHINE SULFATE 4 MG/ML SYRINGE IVP STA (15:11)
[2018-07-15] MEDS ORDERED: LORazepam 2 MG/ML INJ IV STA (15:11)
--- NOTE | 2018-07-15 15:50 | XR ---
EXAMINATION TYPE: XR chest 2V DATE OF EXAM: 07/15/2018 COMPARISON: NONE HISTORY: Chest pain TECHNIQUE: Frontal and lateral views of the chest are obtained. FINDINGS: Heart and mediastinum are normal. Lungs are clear. Diaphragm is normal. There is probably small left pleural effusion. IMPRESSION: Small left pleural effusion or pleural reaction appears new compared to old exam. Normal heart.
[2018-07-15] MEDS ORDERED: FUROSEMIDE 10 MG/ML 4 ML VIAL IV STA (17:23)
[2018-07-15] MEDS: IPRATROPIUM-ALBUTEROL 3 ML NEB INHALATION SCH (18:47)
[2018-07-15 19:27] VITALS: BMI 38.0
[2018-07-15] MEDS ORDERED: ZOLPIDEM 10 MG TAB PO PRN (20:12)
[2018-07-15] MEDS: methylPREDNISolone SOD SUCCI 125 MG/2 ML VIAL IV SCH ×2 (20:23→23:03)
[2018-07-15 20:48] LABS: Glucose,Whole Blood 295 mg/dL (75-99)
[2018-07-15] MEDS: oxyCODONE-APAP 10-325MG 1 EACH TAB PO PRN (20:54)
[2018-07-15] MEDS: ALPRAZolam 0.5 MG TAB PO PRN (20:54)
[2018-07-15] MEDS: INSULIN ASPART 100 UNIT/ML 1 ML 10 ML VIAL SQ SCH (20:55)
[2018-07-15] MEDS: SODIUM CHLORIDE 0.9% 1,000 ML IV SCH (21:02)
[2018-07-15 23:08] LABS: Glucose,Whole Blood 150 mg/dL (75-99)
[2018-07-15] MEDS: diphenhydrAMINE 25 MG CAP PO PRN (23:08)
[2018-07-16] MEDS: oxyCODONE-APAP 10-325MG 1 EACH TAB PO PRN ×4 (00:54→20:20)
[2018-07-16] MEDS ORDERED: HYDROmorphone 0.5 MG/0.5 ML SYRINGE IVP PRN (02:30)
[2018-07-16] MEDS ORDERED: diphenhydrAMINE 50 MG CAP PO PRN (02:30)
[2018-07-16 03:14] LABS: Appearance,Urine Cloudy (Clear); Bilirubin,Urine Negative (Negative); Blood,Urine Small (Negative); Color,Urine Yellow; Glucose,Urine (UA) Negative (Negative); Ketones,Urine 1+ (Negative); Leukocyte Esterase,Urine Negative (Negative); Mucus,Urine Many /hpf; Nitrite,Urine Negative (Negative); Protein,Urine 1+ (Negative); RBC,Urine 2 /hpf (0-5); Specific Gravity,Urine 1.028 (1.001-1.035); Squamous Epithelial Cell,Urine 14 /hpf (0-4); Urobilinogen,Urine <2.0 mg/dL (<2.0); WBC,Urine 1 /hpf (0-5)
[2018-07-16] MEDS: methylPREDNISolone SOD SUCCI 125 MG/2 ML VIAL IV SCH ×3 (05:10→18:10)
[2018-07-16] MEDS: ALPRAZolam 0.5 MG TAB PO PRN ×2 (05:10→18:10)
[2018-07-16] MEDS: SODIUM CHLORIDE 0.9% 1,000 ML IV SCH ×3 (05:10→20:21)
[2018-07-16 08:03] LABS: Glucose,Whole Blood 123 mg/dL (75-99)
[2018-07-16] MEDS: FORMOTEROL FUMARATE 20 MCG/2 ML NEBU INHALATION SCH ×2 (08:04→19:34)
[2018-07-16] MEDS: IPRATROPIUM-ALBUTEROL 3 ML NEB INHALATION SCH ×4 (08:04→19:34)
[2018-07-16] MEDS: BUDESONIDE 1 MG/2 ML NEBU INHALATION SCH ×2 (08:05→19:34)
[2018-07-16] MEDS: INSULIN ASPART 100 UNIT/ML 1 ML 10 ML VIAL SQ SCH ×4 (08:05→20:49)
[2018-07-16] MEDS: ENOXAPARIN 40 MG/0.4 ML SYRINGE SQ SCH (08:24)
[2018-07-16] MEDS: CITALOPRAM HYDROBROMIDE 20 MG TAB PO SCH (08:24)
[2018-07-16] MEDS: amLODIPine 10 MG TAB PO SCH (08:25)
[2018-07-16] MEDS: POTASSIUM CHLORIDE ER 10 MEQ TAB.ER.PRT PO SCH (08:25)
[2018-07-16] MEDS: PANTOPRAZOLE 40 MG TABLET PO SCH (08:25)
[2018-07-16] MEDS: SPIRONOLACTONE 25 MG TAB PO SCH (08:26)
[2018-07-16] MEDS: FLUTICASONE 50MCG/SPRAY NASAL 16GM EA NOSTRIL SCH ×2 (08:31→20:49)
--- NOTE | 2018-07-16 09:27 | HP ---
HISTORY AND PHYSICAL DATE OF SERVICE: 07/15/2018 I am covering for Dr. aPtrick. CHIEF COMPLAINT: Shortness of breath HISTORY OF PRESENT ILLNESS: This 43-year-old woman with a past medical history of multiple medical problems such as history of asthma, CHF, COPD, CVA, TIA, fibromyalgia, pneumonia, rheumatoid arthritis, seizure disorder, syncope, history of pancreatic fibrosis, being followed by Dr. Patrick in the outpatient setting, was complaining of increased shortness of breath and sputum. Patient also had some significant chest pains. Because of the multiple symptomatology patient came to [facility] and was admitted for further evaluation and treatment. A chest x-ray done in the ER which is personally reviewed by me, showed features of mostly COPD. Patient admitted for further evaluation and treatment. A small pleural effusion was also noted. There is no history of fever or rigors. No headache, loss of consciousness, seizures. NT proBNP was only 40. PAST MEDICAL HISTORY: History of COPD, CHF, CAD, fibromyalgia, pneumonia, rheumatoid arthritis, asthma. MEDICATIONS: Prior to admission include home medications are: 1. Ambien 10 mg q.h.s. p.o. p.r.n. 2. Benadryl 50 mg q.h.s. 3. Norvasc 10 mg p.o. daily. 4. Flonase nasal spray. 5. Percocet 10 mg q.4h p.r.n. 6. Aldactone 25 mg p.o. daily. 7. Klor-Con 8 mg p.o. daily. 8. Combivent q.i.d. p.r.n. 9. Celexa 60 mg p.r.n. 10.Xanax 0.5 cm b.i.d. p.r.n. ALLERGIES: AMOXICILLIN, ZITHROMAX, KEFLEX, CIPRO, NAPROXEN, CLINDAMYCIN, IODINATED CONTRAST, LEVAQUIN, NSAID, SELFISH, SULFA, BACTRIM, ULTRAM. FAMILY HISTORY: The patient is adopted. SOCIAL HISTORY: History of smoking, continued ongoing. History of THC. REVIEW OF SYSTEMS: ENT: No diminished hearing or vision. CARDIOVASCULAR: As mentioned earlier. RESPIRATORY: As mentioned earlier. GI: No nausea. : No dysuria. NERVOUS SYSTEM: No numbness or weakness. ALLERGY/IMMUNOLOGY: No asthma. MUSCULOSKELETAL: As mentioned earlier. HEMATOLOGY, no history of anemia. ENDOCRINE: No history of diabetes or hypothyroidism. CONSTITUTIONAL: As mentioned earlier. DERMATOLOGY: Negative. RHEUMATOLOGY: Negative. PSYCHIATRY: As mentioned earlier. PHYSICAL EXAMINATION: Alert and oriented x3. Pulse 103, blood pressure 130/83, respirations 17, temperature 97.7, pulse ox 94% on room air. HEENT: Conjunctivae normal. NECK: No jugular venous distention. CARDIOVASCULAR: S1, S2 muffled. RESPIRATORY: Breath sounds diminished in the bases. A few scattered rhonchi and crackles. Expiratory wheezing and breathing efforts are markedly increased. ABDOMEN: Soft, obese, nontender. No mass palpable. LEGS: No edema, no swelling. NERVOUS SYSTEM: Higher functions as mentioned. Moves all 4 limbs. No focal motor or sensory deficits. LYMPHATIC: No lymphadenopathy in the neck, axillae, groin. SKIN: No ulcer, rash or bleeding. JOINTS: No active deforming arthropathy. LABS: WBC 8.8, hemoglobin 15.9. Accu-Cheks 116, 295. Chest x-ray noted, reviewed as mentioned earlier. ASSESSMENT: 1. Chronic obstructive pulmonary disease acute exacerbation with acute purulent tracheobronchitis. 2. History of congestive heart failure. 3. History of asthma. 4. History of cerebrovascular accident, transient ischemic attack. 5. History of fibromyalgia. 6. History pneumonia. 7. History rheumatoid arthritis. 8. History of chronic pain syndrome, acute on chronic. 9. History of seizure disorder. 10.History of pancreatic fibrosis. 11.History of degenerative joint disease. 12.History of MRSA. 13.Cholecystectomy. 14.History of ADD, ADHD. 15.Anxiety, bipolar. 16.Depression. 17.Borderline personality disorder. 18.History of nicotine dependence. 19.History of THC. RECOMMENDATIONS AND DISCUSSION: In this 43-year-old woman who presented with multiple complex medical issues, we will monitor the patient closely. Continue the current management and symptomatic treatment. Optimize bronchodilator treatment. I would also recommend IV steroids, empiric antibiotics, symptomatic treatment. Prognosis guarded because of multiple complex medical issues and Dr. Patrick will follow. See orders for details. Home medications were reviewed. MMODL / IJN: [id number] /
[2018-07-16 11:42] LABS: Glucose,Whole Blood 196 mg/dL (75-99)
--- NOTE | 2018-07-16 15:42 | PN ---
PROGRESS NOTE DATE OF SERVICE: 07/16/2018 I am covering for Dr. Patrick. This 43-year-old woman was admitted with shortness of breath, possible chronic obstructive pulmonary disease exacerbation as well as acute purulent tracheobronchitis. Patient also had change in mental status according to the family. The patient being closely monitored. Patient is on bronchodilators. Patient is allergic to multiple antibiotics. White count is normal at this time. Cultures are being obtained. Influenza negative. PAST MEDICAL HISTORY: Reviewed. REVIEW OF SYSTEMS: CARDIOVASCULAR: No angina or palpitations. Respiration as mentioned earlier. GI: As mentioned earlier. : No dysuria. Central nervous system: No numbness or weakness. CURRENT MEDICATIONS ARE: 1. DuoNeb q.i.d. and p.r.n. 2. Xanax 0.5 t.i.d. p.r.n. 3. Norvasc 10 mg daily. 4. Pulmicort 1 mg b.i.d. 5. Celexa 60 mg daily. 6. Benadryl. 7. Lovenox. 8. Dilaudid. 9. Solu-Medrol 60 IV q.6 hours. 10.Protonix. 11.K-Dur. 12.Aldactone. 13.Restoril 50 mg q.h.s. p.r.n. PHYSICAL EXAM: Patient is alert, oriented x3. Pulse is 68, blood pressure 130/70, respiration 16, temperature 98 degrees, pulse ox 98% on room air. HEENT: Conjunctivae normal. Oral mucosa moist. Neck is no jugular venous distention. No carotid bruit. No lymph node enlargement. Cardiovascular: S1, S2. Respiratory: Breath sounds diminished in the bases. Bilateral scattered rhonchi and crackles. ABDOMEN: Soft, nontender. Legs are no edema. No swelling. Nervous system: No focal deficits. LAB STUDIES: WBC 8.8, hemoglobin 15.9, glucose noted. UA noted. ASSESSMENT: 1. Shortness of breath possibly chronic obstructive pulmonary disease acute exacerbation with acute purulent tracheobronchitis. 2. History of congestive heart failure. 3. History of asthma. 4. History of cerebrovascular accident, transient ischemic attack. 5. History of fibromyalgia. 6. History of pneumonia. 7. History of rheumatoid arthritis. 8. History of chronic pain syndrome, acute on chronic. 9. History of seizure disorder. 10.History of pancreatic fibrosis. 11.History of degenerative joint disease. 12.History of MRSA. 13.History of cholecystectomy. 14.History of attention-deficit disorder, attention-deficit/hyperactivity disorder. 15.History of anxiety/bipolar. 16.Depression. 17.History of borderline personality disorder. 18.History of nicotine dependence. 19.History of THC. RECOMMENDATIONS AND DISCUSSION: Recommend to continue current medications, management and symptomatic treatment. Continue with IV steroids. Continue the bronchodilators. Otherwise follow the cultures. I would also recommend a CT scan of the brain for further evaluation and treatment. Overall prognosis extremely guarded because of the multiple complex medical issues and discussed with the patient and staff. See orders for further details. Further recommendations to follow. MMODL / IJN: [id number] /
--- NOTE | 2018-07-16 16:29 | CT ---
EXAMINATION TYPE: CT brain wo con DATE OF EXAM: 07/16/2018 COMPARISON: 04/06/2015 HISTORY: Altered mental status CT DLP: 999.8 mGycm. Automated Exposure Control for Dose Reduction was Utilized. TECHNIQUE: CT scan of the head is performed without contrast. FINDINGS: Ventricles of normal size. There is no mass effect nor midline shift. There is no sign of i ntracranial hemorrhage. Calvarium is intact. Skull base is intact. There is minor mucosal thickening in the sphenoid sinus. IMPRESSION: Negative CT scan of the brain. No adverse change overall compared to old exam. Minimal sphenoid sinusitis.
[2018-07-16 17:21] LABS: Glucose,Whole Blood 140 mg/dL (75-99)
[2018-07-16] MEDS: TEMAZEPAM 15 MG CAP PO PRN (20:20)
[2018-07-16 20:27] LABS: Glucose,Whole Blood 154 mg/dL (75-99)
[2018-07-17] MEDS: methylPREDNISolone SOD SUCCI 125 MG/2 ML VIAL IV SCH ×2 (00:08→05:50)
[2018-07-17] MEDS: oxyCODONE-APAP 10-325MG 1 EACH TAB PO PRN ×4 (00:08→18:17)
[2018-07-17] MEDS: ALPRAZolam 0.5 MG TAB PO PRN ×2 (05:52→17:05)
[2018-07-17] MEDS: SODIUM CHLORIDE 0.9% 1,000 ML IV SCH ×2 (05:53→17:13)
[2018-07-17 07:21] LABS: Glucose,Whole Blood 157 mg/dL (75-99)
[2018-07-17 07:34] LABS: Basophils % (A) 0 %; Eosinophils % (A) 0 %; HCT 42.7 % (34.0-46.0); HGB 13.5 gm/dL (11.4-16.0); Lymphocytes # (A) 0.8 k/uL (1.0-4.8); Lymphocytes % (A) 7 %; MCHC 31.7 g/dL (31.0-37.0); MCV 85.2 fL (80.0-100.0); Mean Platelet Volume 6.9; Monocytes # (A) 0.2 k/uL (0-1.0); Monocytes % (A) 2 %; Neutrophils # (A) 9.6 k/uL (1.3-7.7); Neutrophils % (A) 91 %; Platelet Count 263 k/uL (150-450); RBC 5.01 m/uL (3.80-5.40); RDW 13.7 % (11.5-15.5); WBC 10.6 k/uL (3.8-10.6)
[2018-07-17 07:56] LABS: Anion Gap 5 mmol/L; Blood Urea Nitrogen 19 mg/dL (7-17); Calcium 8.9 mg/dL (8.4-10.2); Carbon Dioxide 29 mmol/L (22-30); Chloride 106 mmol/L (98-107); Glucose 162 mg/dL (74-99); Potassium 3.8 mmol/L (3.5-5.1); Sodium 140 mmol/L (137-145)
[2018-07-17] MEDS: FORMOTEROL FUMARATE 20 MCG/2 ML NEBU INHALATION SCH ×2 (08:01→19:18)
[2018-07-17] MEDS: IPRATROPIUM-ALBUTEROL 3 ML NEB INHALATION SCH ×4 (08:01→19:18)
[2018-07-17] MEDS: BUDESONIDE 1 MG/2 ML NEBU INHALATION SCH ×2 (08:01→19:18)
--- NOTE | 2018-07-17 08:31 | P.PN ---
Subjective Progress Note Date: 07/17/18 Principal diagnosis: Impression a 43-year-old white female smoker who is here for recurrent exacerbation of COPD. She seems to be resting comfortably and speaking appropriately. No voiding difficulty stated. No significant nausea, vomiting or diarrhea. The patient's appetite is otherwise nominal. Objective - Vital Signs Vital signs: Vital Signs Temp 97.8 F 07/17/18 05:00 Pulse 88 07/17/18 08:26 Resp 16 07/17/18 05:00 BP 133/81 07/17/18 05:00 Pulse Ox 92 L 07/17/18 08:05 Intake & Output 07/16/18 07/17/18 07/17/18 18:59 06:59 18:59 Intake Total 800 1250 Balance 800 1250 Intake: IV 800 900 Sodium Chloride 0.9% 1, 800 900 000 ml @ 100 mls/hr IV . Q10H CAMERON Rx#:[id number] Oral 350 Other: Voiding Method Toilet Toilet Toilet # Voids 1 - Constitutional General appearance: Present: severe distress - EENT Eyes: Absent: abnormal pupil - Neck Neck: Absent: lymphadenopathy - Respiratory Respiratory: bilateral: rhonchi, wheezing - Cardiovascular Rhythm: regular Heart sounds: normal: S1, S2 Abnormal Heart Sounds: Absent: S3 Gallop - Gastrointestinal General gastrointestinal: Present: soft. Absent: tenderness - Psychiatric Psychiatric: Present: A&O x's 3, appropriate affect - Labs CBC & Chem 7: 07/17/18 06:33 07/17/18 06:33 Labs: Abnormal Lab Results - Last 24 Hours (Table) 07/16/18 07/16/18 07/16/18 Range/Units 11:41 17:19 20:26 Neutrophils # (1.3-7.7) k/uL Lymphocytes # (1.0-4.8) k/uL BUN (7-17) mg/dL Glucose (74-99) mg/dL POC Glucose (mg/dL) 196 H 140 H 154 H (75-99) mg/dL 07/17/18 07/17/18 07/17/18 Range/Units 06:33 06:33 07:10 Neutrophils # 9.6 H (1.3-7.7) k/uL Lymphocytes # 0.8 L (1.0-4.8) k/uL BUN 19 H (7-17) mg/dL Glucose 162 H (74-99) mg/dL POC Glucose (mg/dL) 157 H (75-99) mg/dL Microbiology - Last 24 Hours (Table) 07/16/18 01:53 Blood Culture - Preliminary Blood No Growth after 24 hours 07/16/18 19:42 Gram Stain - Final Sputum Sputum Culture - Final 07/16/18 02:06 Urine Culture - Preliminary Urine,Clean Catch Assessment and Plan (1) Acute exacerbation of chronic obstructive airways disease Current Visit: Yes Status: Acute Code(s): J44.1 - CHRONIC OBSTRUCTIVE PULMONARY DISEASE W (ACUTE) EXACERBATION SNOMED Code(s): 116009584 (2) Fibromyalgia Current Visit: No Status: Acute Code(s): M79.7 - FIBROMYALGIA SNOMED Code( s): 056942042 (3) Back pain Current Visit: No Status: Chronic Code(s): M54.9 - DORSALGIA, UNSPECIFIED SNOMED Code(s): 703582053 (4) High risk for readmission Current Visit: No Status: Chronic Code(s): Z91.89 - OT PERSONAL RISK FACTORS, NOT ELSEWHERE CLASSIFIED SNOMED Code(s): 217808342 Plan: We will go ahead and check CMP in a.m. with CBC. Wean off of opiates. Slowly wean Solu-Medrol. Prognosis is guarded secondary to her severity of COPD and fact she continues to smoke. She orders otherwise
[2018-07-17] MEDS: ENOXAPARIN 40 MG/0.4 ML SYRINGE SQ SCH (10:06)
[2018-07-17] MEDS: INSULIN ASPART 100 UNIT/ML 1 ML 10 ML VIAL SQ SCH ×4 (10:06→21:31)
[2018-07-17] MEDS: FLUTICASONE 50MCG/SPRAY NASAL 16GM EA NOSTRIL SCH ×2 (10:06→21:31)
[2018-07-17] MEDS: CITALOPRAM HYDROBROMIDE 20 MG TAB PO SCH (10:06)
[2018-07-17] MEDS: amLODIPine 10 MG TAB PO SCH (10:07)
[2018-07-17] MEDS: SPIRONOLACTONE 25 MG TAB PO SCH (10:07)
[2018-07-17] MEDS: POTASSIUM CHLORIDE ER 10 MEQ TAB.ER.PRT PO SCH (10:07)
[2018-07-17] MEDS: PANTOPRAZOLE 40 MG TABLET PO SCH (10:07)
[2018-07-17 11:11] LABS: Glucose,Whole Blood 216 mg/dL (75-99)
[2018-07-17 13:12] LABS: Hemoglobin A1C 6.3 % (4.0-6.0)
[2018-07-17 16:56] LABS: Glucose,Whole Blood 136 mg/dL (75-99)
[2018-07-17] MEDS: methylPREDNISolone SOD SUCCI 40 MG/ML 1 ML VIAL IV SCH ×2 (17:11→23:37)
[2018-07-17 20:18] LABS: Glucose,Whole Blood 143 mg/dL (75-99)
[2018-07-18] MEDS: ALPRAZolam 0.5 MG TAB PO PRN ×3 (01:51→20:27)
[2018-07-18] MEDS: oxyCODONE-APAP 10-325MG 1 EACH TAB PO PRN ×4 (01:51→22:06)
[2018-07-18] MEDS: diphenhydrAMINE 25 MG CAP PO PRN ×3 (03:07→22:07)
[2018-07-18] MEDS: SODIUM CHLORIDE 0.9% 1,000 ML IV SCH ×2 (04:46→15:58)
[2018-07-18] MEDS: IPRATROPIUM-ALBUTEROL 3 ML NEB INHALATION SCH ×4 (06:58→19:19)
[2018-07-18] MEDS: BUDESONIDE 1 MG/2 ML NEBU INHALATION SCH ×2 (06:58→19:19)
[2018-07-18] MEDS: FORMOTEROL FUMARATE 20 MCG/2 ML NEBU INHALATION SCH ×2 (06:58→19:19)
[2018-07-18 07:20] LABS: Glucose,Whole Blood 151 mg/dL (75-99)
[2018-07-18 07:36] LABS: Basophils % (A) 0 %; Eosinophils % (A) 0 %; HCT 45.5 % (34.0-46.0); HGB 13.6 gm/dL (11.4-16.0); Lymphocytes # (A) 0.7 k/uL (1.0-4.8); Lymphocytes % (A) 6 %; MCH 25.9 pg (25.0-35.0); MCHC 29.9 g/dL (31.0-37.0); MCV 86.8 fL (80.0-100.0); Mean Platelet Volume 6.6; Monocytes # (A) 0.3 k/uL (0-1.0); Monocytes % (A) 3 %; Neutrophils # (A) 9.5 k/uL (1.3-7.7); Neutrophils % (A) 91 %; Platelet Count 306 k/uL (150-450); RBC 5.25 m/uL (3.80-5.40); RDW 13.6 % (11.5-15.5); WBC 10.5 k/uL (3.8-10.6)
[2018-07-18 07:50] LABS: ALT 20 U/L (9-52); AST 12 U/L (14-36); Albumin 3.3 g/dL (3.5-5.0); Alkaline Phosphatase 60 U/L (38-126); Anion Gap 8 mmol/L; Blood Urea Nitrogen 19 mg/dL (7-17); Calcium 8.9 mg/dL (8.4-10.2); Carbon Dioxide 29 mmol/L (22-30); Chloride 103 mmol/L (98-107); Glucose 175 mg/dL (74-99); Potassium 4.2 mmol/L (3.5-5.1); Sodium 140 mmol/L (137-145); Total Bilirubin 0.2 mg/dL (0.2-1.3); Total Protein 6.1 g/dL (6.3-8.2)
[2018-07-18] MEDS: INSULIN ASPART 100 UNIT/ML 1 ML 10 ML VIAL SQ SCH ×4 (08:27→20:27)
[2018-07-18] MEDS: ENOXAPARIN 40 MG/0.4 ML SYRINGE SQ SCH (08:28)
[2018-07-18] MEDS: SPIRONOLACTONE 25 MG TAB PO SCH (08:28)
[2018-07-18] MEDS: methylPREDNISolone SOD SUCCI 40 MG/ML 1 ML VIAL IV SCH ×2 (08:28→15:59)
[2018-07-18] MEDS: FLUTICASONE 50MCG/SPRAY NASAL 16GM EA NOSTRIL SCH ×2 (08:28→20:27)
[2018-07-18] MEDS: amLODIPine 10 MG TAB PO SCH (08:28)
[2018-07-18] MEDS: PANTOPRAZOLE 40 MG TABLET PO SCH (08:28)
[2018-07-18] MEDS: POTASSIUM CHLORIDE ER 10 MEQ TAB.ER.PRT PO SCH (08:28)
[2018-07-18] MEDS: CITALOPRAM HYDROBROMIDE 20 MG TAB PO SCH (08:28)
--- NOTE | 2018-07-18 09:28 | P.PN ---
Subjective Principal diagnosis: Impression a 43-year-old white female smoker who is here for recurrent exacerbation of COPD. She seems to be resting comfortably and speaking appropriately. No voiding difficulty stated. No significant nausea, vomiting or diarrhea. The patient's appetite is otherwise nominal. She states she slept poorly for some reason Objective - Vital Signs Vital signs: Vital Signs Temp 97.6 F 07/18/18 04:51 Pulse 81 07/18/18 07:19 Resp 18 07/18/18 04:51 BP 131/78 07/18/18 04:51 Pulse Ox 92 L 07/18/18 04:51 Intake & Output 07/17/18 07/18/18 07/18/18 18:59 06:59 18:59 Intake Total 1870 Balance 1870 Weight 88.4 kg Intake: IV 700 Sodium Chloride 0.9% 1, 700 000 ml @ 100 mls/hr IV . Q10H [facility] Rx#:[id number] Intake, IV Titration 400 Amount Sodium Chloride 0.9% 1, 400 000 ml @ 100 mls/hr IV . Q10H [facility] Rx#:[id number] Oral 770 Other: Voiding Method Toilet Toilet Toilet # Voids 2 2 - Constitutional General appearance: Present: obese - Respiratory Respiratory: bilateral: diminished - Cardiovascular Rhythm: regular Abnormal Heart Sounds: Absent: S3 Gallop - Gastrointestinal General gastrointestinal: Present: soft. Absent: tenderness - Integumentary Integumentary: Absent: cyanotic - Neurologic Neurologic: Present: CNII-XII intact. Absent: focal deficits - Musculoskeletal Musculoskeletal: Present: gait normal - Labs CBC & Chem 7: 07/18/18 06:13 07/18/18 06:13 Labs: Abnormal Lab Results - Last 24 Hours (Table) 07/15/18 07/17/18 07/17/18 Range/Units 14:15 11:09 16:54 MCHC (31.0-37.0) g/dL Neutrophils # (1.3-7.7) k/uL Lymphocytes # (1.0-4.8) k/uL BUN (7-17) mg/dL Glucose (74-99) mg/dL POC Glucose (mg/dL) 216 H 136 H (75-99) mg/dL Hemoglobin A1c 6.3 H (4.0-6.0) % AST (14-36) U/L Total Protein (6.3-8.2) g/dL Albumin (3.5-5.0) g/dL 07/17/18 07/18/18 07/18/18 Range/Units 20:17 06:13 06:13 MCHC 29.9 L (31.0-37.0) g/dL Neutrophils # 9.5 H (1.3-7.7) k/uL Lymphocytes # 0.7 L (1.0-4.8) k/uL BUN 19 H (7-17) mg/dL Glucose 175 H (74-99) mg/dL POC Glucose (mg/dL) 143 H (75-99) mg/dL Hemoglobin A1c (4.0-6.0) % AST 12 L (14-36) U/L Total Protein 6.1 L (6.3-8.2) g/dL Albumin 3.3 L (3.5-5.0) g/dL 07/18/18 Range/Units 07:18 MCHC (31.0-37.0) g/dL Neutrophils # (1.3-7.7) k/uL Lymphocytes # (1.0-4.8) k/uL BUN (7-17) mg/dL Glucose (74-99) mg/dL POC Glucose (mg/dL) 151 H (75-99) mg/dL Hemoglobin A1c (4.0-6.0) % AST (14-36) U/L Total Protein (6.3-8.2) g/dL Albumin (3.5-5.0) g/dL Microbiology - Last 24 Hours (Table) 07/16/18 01:53 Blood Culture - Preliminary Blood No Growth after 48 hours 07/16/18 02:06 Urine Culture - Final Urine,Clean Catch Assessment and Plan (1) Acute exacerbation of chronic obstructive airways disease Current Visit: Yes Status: Acute Code(s): J44.1 - CHRONIC OBSTRUCTIVE PULMONARY DISEASE W (ACUTE) EXACERBATION SNOMED Code(s): 246166820 (2) Fibromyalgia Current Visit: No Status: Acute Code(s): M79.7 - FIBROMYALGIA SNOMED Code( s): 482282885 (3) Back pain Current Visit: No Status: Chronic Code(s): M54.9 - DORSALGIA, UNSPECIFIED SNOMED Code(s): 207617109 (4) High risk for readmission Current Visit: No Status: Chronic Code(s): Z91.89 - OTH PERSONAL RISK FACTORS, NOT ELSEWHERE CLASSIFIED SNOMED Code(s): 911840614 Plan: Continue current regimen of treatment and wean off of steroids therapy. Anticipate discharge in a.m. Continue current pain control Time with Patient: Less than 30
[2018-07-18 11:24] LABS: Glucose,Whole Blood 136 mg/dL (75-99)
[2018-07-18 17:52] LABS: Glucose,Whole Blood 174 mg/dL (75-99)
[2018-07-18 19:33] LABS: Glucose,Whole Blood 156 mg/dL (75-99)
[2018-07-18] MEDS: TEMAZEPAM 15 MG CAP PO PRN (20:30)
[2018-07-18 21:59] VITALS: RESP 16
[2018-07-19] MEDS: methylPREDNISolone SOD SUCCI 40 MG/ML 1 ML VIAL IV SCH ×2 (00:45→08:03)
[2018-07-19] MEDS: SODIUM CHLORIDE 0.9% 1,000 ML IV SCH (03:24)
[2018-07-19] MEDS: ALPRAZolam 0.5 MG TAB PO PRN ×2 (04:48→12:36)
[2018-07-19] MEDS: oxyCODONE-APAP 10-325MG 1 EACH TAB PO PRN ×2 (04:48→11:21)
[2018-07-19] MEDS: IPRATROPIUM-ALBUTEROL 3 ML NEB INHALATION SCH ×2 (06:48→11:05)
[2018-07-19] MEDS: FORMOTEROL FUMARATE 20 MCG/2 ML NEBU INHALATION SCH (06:48)
[2018-07-19] MEDS: BUDESONIDE 1 MG/2 ML NEBU INHALATION SCH (06:48)
[2018-07-19 06:54] LABS: Glucose,Whole Blood 141 mg/dL (75-99)
[2018-07-19] MEDS: INSULIN ASPART 100 UNIT/ML 1 ML 10 ML VIAL SQ SCH (08:02)
[2018-07-19] MEDS: PANTOPRAZOLE 40 MG TABLET PO SCH (08:02)
[2018-07-19] MEDS: CITALOPRAM HYDROBROMIDE 20 MG TAB PO SCH (08:03)
[2018-07-19] MEDS: ENOXAPARIN 40 MG/0.4 ML SYRINGE SQ SCH (08:03)
[2018-07-19] MEDS: amLODIPine 10 MG TAB PO SCH (08:03)
[2018-07-19] MEDS: SPIRONOLACTONE 25 MG TAB PO SCH (08:03)
[2018-07-19] MEDS: POTASSIUM CHLORIDE ER 10 MEQ TAB.ER.PRT PO SCH (08:03)
[2018-07-19] MEDS: diphenhydrAMINE 25 MG CAP PO PRN (08:03)
[2018-07-19] MEDS: FLUTICASONE 50MCG/SPRAY NASAL 16GM EA NOSTRIL SCH (08:03)
--- NOTE | 2018-07-19 08:10 | P.DS ---
Providers Date of admission: 07/15/18 17:24 Attending physician: Saman Patrick Primary care physician: Saman Patrick - Discharge Diagnosis(es) (1) Acute exacerbation of chronic obstructive airways disease Current Visit: Yes Status: Acute (2) Fibromyalgia Current Visit: No Status: Acute (3) Back pain Current Visit: No Status: Chronic (4) High risk for readmission Current Visit: No Status: Chronic Hospital Course: This discharge summary and a 43-year-old white female essentially admitted for acute exacerbation of COPD. She hasn't underlying history of severe back pain and opiate dependence. We will slowly wean off her pain medication sugar. She is stabilized with appropriate steroid treatment and will be discharged with antibiotics and steroids to follow-up with me in 3 days. Patient Condition at Discharge: Fair Plan - Discharge Summary Discharge Rx Participant: Yes New Discharge Prescriptions: New Azithromycin [Zithromax Z-pack] 0 mg PO DIRECTED #6 tab Budesonide [Pulmicort] 1 mg INHALATION RT-BID #60 nebu predniSONE 0 mg PO DIRECTED #18 tab Continue Potassium Chloride [Klor-Con 8] 8 meq PO DAILY Citalopram Hydrobromide [CeleXA] 60 mg PO DAILY Ipratropium/Albuterol Sulfate [Combivent Respimat Inhaler] 1 puff INHALATION RT-QID PRN PRN Reason: Shortness Of Breath Spironolactone [Aldactone] 25 mg PO DAILY amLODIPine [Norvasc] 10 mg PO DAILY Fluticasone Nasal [place] [Flonase Nasal [place]] 1 spray EA NOSTRIL BID oxyCODONE HCL/ACETAMINOPHEN [Percocet 10-325 mg] 1 tab PO Q4HR PRN PRN Reason: Pain ALPRAZolam [Xanax] 0.5 mg PO TID PRN PRN Reason: Anxiety diphenhydrAMINE [Benadryl] 50 mg PO QID PRN PRN Reason: Allergic Reaction Zolpidem Tartrate [Ambien] 10 mg PO HS PRN PRN Reason: Insomnia Discharge Medication List Citalopram Hydrobromide [CeleXA] 60 mg PO DAILY 01/06/14 [History] Potassium Chloride [Klor-Con 8] 8 meq PO DAILY 01/06/14 [History] Ipratropium/Albuterol Sulfate [Combivent Respimat Inhaler] 1 puff INHALATION RT- QID PRN 01/09/16 [History] Spironolactone [Aldactone] 25 mg PO DAILY 02/05/17 [History] ALPRAZolam [Xanax] 0.5 mg PO TID PRN 07/15/18 [History] Fluticasone Nasal [place] [Flonase Nasal [place]] 1 spray EA NOSTRIL BID 07/15/18 [ History] Zolpidem Tartrate [Ambien] 10 mg PO HS PRN 07/15/18 [History] amLODIPine [Norvasc] 10 mg PO DAILY 07/15/18 [History] diphenhydrAMINE [Benadryl] 50 mg PO QID PRN 07/15/18 [History] oxyCODONE HCL/ACETAMINOPHEN [Percocet 10-325 mg] 1 tab PO Q4HR PRN 07/15/18 [ History] Azithromycin [Zithromax Z-pack] 0 mg PO DIRECTED #6 tab 07/19/18 [Rx] Budesonide [Pulmicort] 1 mg INHALATION RT-BID #60 nebu 07/19/18 [Rx] predniSONE 0 mg PO DIRECTED #18 tab 07/19/18 [Rx] Follow up Appointment(s)/Referral(s): Saman Patrick MD [Primary Care Provider] - 3 Days Discharge Disposition: HOME SELF-CARE
[2018-07-19 10:03] LABS: Basophils % (A) 0 %; Eosinophils % (A) 1 %; HCT 44.1 % (34.0-46.0); HGB 13.8 gm/dL (11.4-16.0); Lymphocytes # (A) 0.7 k/uL (1.0-4.8); Lymphocytes % (A) 9 %; MCH 26.6 pg (25.0-35.0); MCHC 31.2 g/dL (31.0-37.0); MCV 85.3 fL (80.0-100.0); Mean Platelet Volume 6.7; Monocytes # (A) 0.2 k/uL (0-1.0); Monocytes % (A) 2 %; Neutrophils # (A) 6.8 k/uL (1.3-7.7); Neutrophils % (A) 88 %; Platelet Count 276 k/uL (150-450); RBC 5.17 m/uL (3.80-5.40); RDW 13.6 % (11.5-15.5); WBC 7.7 k/uL (3.8-10.6)
[2018-07-19 10:17] LABS: Anion Gap 7 mmol/L; Blood Urea Nitrogen 17 mg/dL (7-17); Calcium 8.9 mg/dL (8.4-10.2); Carbon Dioxide 28 mmol/L (22-30); Chloride 103 mmol/L (98-107); Glucose 240 mg/dL (74-99); Potassium 4.1 mmol/L (3.5-5.1); Sodium 138 mmol/L (137-145)
[2018-07-19 11:51] LABS: Glucose,Whole Blood 221 mg/dL (75-99)
[2018-07-19 12:40] VITALS: BP 141/84; PULSE 69; TEMP 98.2
== END 2018-07-19 13:10 | disposition home or self-care (01) | DRG 192 ==
LOC: EC 13:32 → 3NMEDONC 17:24 → UNDOADMOB 17:24 → 3NMEDONC 17:24
PROVIDERS: ADMIT Family Medicine; ATTEND Family Medicine
DX: J44.0 Chronic obstructive pulmonary disease with (acute) lower respiratory infection (principal); I50.9 Heart failure, unspecified; K86.89 Other specified diseases of pancreas; J44.1 Chronic obstructive pulmonary disease with (acute) exacerbation; J20.9 Acute bronchitis, unspecified; R41.82 Altered mental status, unspecified; G40.909 Epilepsy, unspecified, not intractable, without status epilepticus; G89.4 Chronic pain syndrome; F41.9 Anxiety disorder, unspecified; M79.7 Fibromyalgia; I25.10 Atherosclerotic heart disease of native coronary artery without angina pectoris; F31.9 Bipolar disorder, unspecified; F60.3 Borderline personality disorder; F90.9 Attention-deficit hyperactivity disorder, unspecified type; M54.9 Dorsalgia, unspecified; M19.90 Unspecified osteoarthritis, unspecified site; K58.9 Irritable bowel syndrome, unspecified; G43.909 Migraine, unspecified, not intractable, without status migrainosus; M06.9 Rheumatoid arthritis, unspecified; F17.200 Nicotine dependence, unspecified, uncomplicated; Z79.899 Other long term (current) drug therapy; Z86.73 Personal history of transient ischemic attack (TIA), and cerebral infarction without residual deficits; Z87.01 Personal history of pneumonia (recurrent); Z87.442 Personal history of urinary calculi; Z90.710 Acquired absence of both cervix and uterus; Z98.891 History of uterine scar from previous surgery; Z86.14 Personal history of Methicillin resistant Staphylococcus aureus infection; Z90.49 Acquired absence of other specified parts of digestive tract; Z98.51 Tubal ligation status; Z88.2 Allergy status to sulfonamides; Z88.8 Allergy status to other drugs, medicaments and biological substances; Z88.1 Allergy status to other antibiotic agents; Z91.041 Radiographic dye allergy status; Z91.013 Allergy to seafood
CPT/HCPCS: 36415; 70450; 71046; 80048; 80053; 81001; 82550; 82553; 83036; 83735; 83880; 84484; 85025; 85610; 85730; 87040; 87070; 87086; 87205; 87502; 93005; 94640; 94644; 94760; 96361; 96374; 96375; 99285

== ENCOUNTER 2018-08-21 13:34 | Emergency (ER) | payer MEDICARE, OTHER ==
[2018-08-21 14:00] VITALS: BP 123/80; PULSE 106; RESP 18; TEMP 98.6
[2018-08-21] MEDS ORDERED: HYDROcodone/APAP 7.5-325MG 1 EACH TAB PO ONE (14:41)
[2018-08-21] MEDS ORDERED: oxyCODONE-APAP 10-325MG 1 EACH TAB PO STA (14:51)
--- NOTE | 2018-08-21 14:52 | ED ---
General Adult HPI - General Chief complaint: Back Pain/Injury Stated complaint: fall, back injury Time Seen by Provider: 08/21/18 14:29 Source: patient, RN notes reviewed, old records reviewed Mode of arrival: ambulatory Limitations: no limitations - History of Present Illness Initial comments: 42-year-old female patient past medical history of fibromyalgia, CHF, asthma, CVA, chronic lumbar back pain presents to ED for mechanical fall. Patient reports that she was walking outside when she slipped on ice and fell backwards onto her lumbar spine. Patient primary complaint is lumbar back pain. This fall occurred approximately 1.5 hours prior to presentation to ED. Patient denied any trauma to head or neck. Patient denies any loss of consciousness. Patient denies any headache, changes in vision, pain in neck. Patient denies any acute onset loss of bowel or bladder control, saddle anesthesia, paresthesias or weakness in lower extremities. Patient is ambulatory with pain. Patient does take daily Percocet for chronic pain. Patient has not taken any pain medication today. Patient denies other complaints. Pt denies use of blood thinners. Pt has a history of hysterectomy, states that she is not . Systemic: Pt denies fatigue, fever/chills, rash. Pt denies weakness, night sweats, weight loss. Neuro: Pt denies headache, visual disturbances, syncope or pre-syncope. HEENT: Pt denies ocular discharge or irritation, otalgia, rhinorrhea, pharyngitis or notable lymphadenopathy. Cardiopulmonary: Pt denies chest pain, SOB, heart palpitations, dyspnea on exertion. Abdominal/GI: Pt denies abdominal pain, n/v/d. : Pt denies dysuria, burning w/ urination, frequency/urgency. Denies new onset urinary or bowel incontinence. MSK: Pt denies loss of strength or function in extremities. Neuro: Pt denies new onset weakness, paresthesias. - Related Data Home Medications Medication Instructions Recorded Confirmed Citalopram Hydrobromide [CeleXA] 60 mg PO DAILY 01/06/14 07/15/18 Potassium Chloride [Klor-Con 8] 8 meq PO DAILY 01/06/14 07/15/18 Ipratropium/Albuterol Sulfate 1 puff INHALATION RT-QID PRN 07/26/15 07/15/18 [Combivent Respimat Inhaler] Spironolactone [Aldactone] 25 mg PO DAILY 02/05/17 07/15/18 ALPRAZolam [Xanax] 0.5 mg PO TID PRN 07/15/18 07/15/18 Fluticasone Nasal [place] [Flonase 1 spray EA NOSTRIL BID 07/15/18 07/15/18 Nasal [place]] Zolpidem Tartrate [Ambien] 10 mg PO HS PRN 07/15/18 07/15/18 amLODIPine [Norvasc] 10 mg PO DAILY 07/15/18 07/15/18 diphenhydrAMINE [Benadryl] 50 mg PO QID PRN 07/15/18 07/15/18 oxyCODONE HCL/ACETAMINOPHEN 1 tab PO Q4HR PRN 07/15/18 07/15/18 [Percocet 10-325 mg] Previous Rx's Medication Instructions Recorded Azithromycin [Zithromax Z-pack] 0 mg PO DIRECTED #6 tab 07/19/18 Budesonide [Pulmicort] 1 mg INHALATION RT-BID #60 nebu 07/19/18 predniSONE 0 mg PO DIRECTED #18 tab 07/19/18 Acetaminophen Tab [Tylenol] 1,000 mg PO TID 5 Days tablet 08/21/18 Allergies Allergy/AdvReac Type Severity Reaction Status Date / Time adhesive Allergy Rash/Hives Verified 07/15/18 14:28 amoxicillin Allergy Anaphylaxis Verified 07/15/18 14:28 azithromycin [From Zithromax] Allergy Anaphylaxis Verified 07/15/18 14:28 cephalexin monohydrate Allergy Anaphylaxis Verified 07/15/18 14:28 [From Keflex] ciprofloxacin Allergy Anaphylaxis Verified 07/15/18 14:28 clindamycin Allergy Anaphylaxis Verified 07/15/18 14:28 Iodinated Contrast- Oral and Allergy Swelling Verified 07/15/18 14:28 IV Dye levofloxacin [From Levaquin] Allergy Rash/Hives Verified 07/15/18 14:28 NSAIDS (Non-Steroidal Allergy Rash/Hives Verified 07/15/18 14:28 Anti-Inflamma shellfish derived Allergy Anaphylaxis Verified 07/15/18 14:28 Sulfa (Sulfonamide Allergy Anaphylaxis Verified 07/15/18 14:28 Antibiotics) sulfamethoxazole Allergy Anaphylaxis Verified 07/15/18 14:28 [From Bactrim] tramadol Allergy Unknown Verified 07/15/18 14:28 trimethoprim [From Bactrim] Allergy Anaphylaxis Verified 07/15/18 14:28 Review of Systems ROS Statement: Those systems with pertinent positive or pertinent negative responses have been documented in the HPI. ROS Other: All systems not noted in ROS Statement are negative. 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 IBS, cellulitis of the chin History of Any Multi-Drug Resistant Organisms: MRSA Date of last positivie culture/infection: 07/2016 MDRO Source:: chin Past Surgical History: Section, Cholecystectomy, Hysterectomy, Tubal Ligation Additional Past Surgical History / Comment(s): oral surgery . Pancreas biopsy May 2015. Past Anesthesia/Blood Transfusion Reactions: No Reported Reaction Past Psychological History: ADD/ADHD, Anxiety, Bipolar, Depression Smoking Status: Current some day smoker Past Alcohol Use History: None Reported Past Drug Use History: Marijuana - Past Family History Father Family Medical History: No Reported History Additional Family Medical History / Comment(s): ADOPTED General Exam - General Exam Comments Initial Comments: Constitutional: NAD, AOX3, Pt has pleasant affect. HEENT: NC/AT, trachea midline, neck supple, no lymphadenopathy. Posterior pharynx non erythematous, without exudates. External ears appear normal, without discharge. Mucous membranes moist. Eyes PERRLA, EOM intact. There is no scleral icterus. No pallor noted. Cardiopulmonary: RRR, no murmurs, rubs or gallops, no JVD noted. Lungs CTAB in anterior and posterior daniel. No peripheral edema. Abdominal exam: Abdomen soft and non-distended. Abdomen non-tender to palpation in all 4 quadrants. Bowel sounds active in LLQ. No hepatosplenomegaly. No ecchymosis Neuro: CN II-XII grossly intact. No nuchal rigidity. MSK: Cervical and paracervical spine nontender to palpation. Thoracic and lumbar spine mildly tender to palpation midline. 5/5 strength lower extremities. Sensation intact. No posterior calf tenderness bilaterally, homans sign negative bilaterally. Posterior tibialis and radial pulse +2 bilaterally. Sensation intact in upper and lower extremities. Full active ROM in upper and lower extremities. Pt ambulatory. Limitations: no limitations Course Vital Signs 08/21/18 13:56 Temperature 98.6 F Pulse Rate 106 H Respiratory 18 Rate Blood Pressure 123/80 O2 Sat by Pulse 96 Oximetry Medical Decision Making - Medical Decision Making 42-year-old female patient past medical history of fibromyalgia, CHF, asthma, CVA, chronic lumbar back pain presents to ED for mechanical fall. Patient reports that she was walking outside when she slipped on ice and fell backwards onto her lumbar spine. Patient primary complaint is lumbar back pain. This fall occurred approximately 1.5 hours prior to presentation to ED. Patient denied any trauma to head or neck. Patient denies any loss of consciousness. Patient denies any headache, changes in vision, pain in neck. Pt not on blood thinners. Pt VSS, HR 72 during exam. Physical exam displayed: Cervical and paracervical spine nontender to palpation. Thoracic and lumbar spine mildly tender to palpation midline. 5/5 strength lower extremities. Sensation intact. No posterior calf tenderness bilaterally, homans sign negative bilaterally. Posterior tibialis and radial pulse +2 bilaterally. Sensation intact in upper and lower extremities. Full active ROM in upper and lower extremities. CT of thoracic lumbar spine without contrast revealed no evidence of vertebral body height loss of alignment of the thoracic or lumbar spine. Small broad-based disc bulges at L3-L4, L4-L5 and L5-S1. Mild multilevel degenerative disc disease of the thoracic and lumbar spine. CT of hips with AP pelvis bilaterally were negative. Findings explained to pt at length. Patient was previously aware of degenerative disc disease. Patient was administered home dose of oral analgesic. Patient not driving home. Patient to follow up with orthopedic surgeon. Patient to follow up with primary care provider in 1-2 days. Patient to return to ED if new signs or symptoms or condition worsens in any way. Case discussed in depth with Dr. He. Disposition Clinical Impression: Lumbar back sprain Disposition: HOME SELF-CARE Condition: Stable Instructions (If sedation given, give patient instructions): Acute Low Back Pain (ED), Chronic Back Pain (ED) Additional Instructions: Patient to adhere to previously discussed treatment plan and will take medication(s) as directed. Patient to follow up with PCP in 1-2 days. Patient to return to ED if symptoms do not improve. Prescriptions: Acetaminophen Tab [Tylenol] 1,000 mg PO TID 5 Days tablet Is patient prescribed a controlled substance at d/c from ED?: No Referrals: Saman Patrick MD [Primary Care Provider] - 1-2 days Anderson Stout MD [STAFF PHYSICIAN] - 1-2 days Time of Disposition: 16:42
--- NOTE | 2018-08-21 15:45 | XR ---
EXAMINATION TYPE: XR Hip Bilateral and AP pelvis DATE OF EXAM: 08/21/2018 COMPARISON: Pelvic x-ray October 12, 2013. Abdominal x-ray 2017. HISTORY: Fall injury with pelvic and bilateral hip pain TECHNIQUE: A single AP view of the pelvis is obtained. Two views of the bilateral hips are obtained. FINDINGS: There is no acute fracture/dislocation evident in the pelvis. The sacroiliac joints appea r symmetric and unremarkable. Moderate axial joint space loss both hips, left slightly greater than r ight is redemonstrated. Pubic symphysis is intact. Left-sided pelvic phleboliths are redemonstrated. Two views of bilateral hips show no acute fracture or dislocation. No focal lytic or sclerotic lesio n seen in the proximal femurs bilaterally. The overlying soft tissue is unremarkable bilaterally. IMPRESSION: There is no acute fracture or dislocation in the pelvis or either hip.
--- NOTE | 2018-08-21 15:55 | CT ---
EXAMINATION TYPE: CT thor lumbar spine wo con DATE OF EXAM: 08/21/2018 COMPARISON: None HISTORY: Back pain post fall. CT DLP: 1879.9 mGycm Automated exposure control for dose reduction was used. FINDINGS: The vertebral bodies of the lumbar and thoracic spine maintain normal vertebral body heights and alig nment. There is no evidence of acute fracture or dislocation of the thoracic nor lumbar spine. There are well-corticated osseous fragments at the spinous processes tips of T8 and T9, likely related to p rior trauma. Mild multilevel degenerative disc disease is seen of the thoracic and lumbar spine demonstrated as sm all anterior osteophytes. No gross evidence of spinal canal stenosis is seen although this is limited on CT. There appears to be a small broad-based disc bulges at L3-L4, L4-L5 and L5-S1 resulting in mi nimal neural foraminal narrowing at these levels. Cholecystectomy clips are noted. The visualized portions of the bilateral ribs also appear grossly in tact. Visualized portions of the lungs are well aerated. Sacroiliac joint spaces demonstrate no evide nce of abnormal widening. IMPRESSION: 1. No evidence of vertebral body height loss or malalignment of the thoracic or lumbar spine. 2. Mild multilevel degenerative disc disease of the thoracic and lumbar spine.
== END 2018-08-21 17:06 | disposition home or self-care (01) ==
LOC: EC 13:34
DX: S33.5XXA Sprain of ligaments of lumbar spine, initial encounter (principal); M51.26 Other intervertebral disc displacement, lumbar region; M51.27 Other intervertebral disc displacement, lumbosacral region; M51.34 Other intervertebral disc degeneration, thoracic region; M51.36 Other intervertebral disc degeneration, lumbar region; G89.29 Other chronic pain; J44.9 Chronic obstructive pulmonary disease, unspecified; I50.9 Heart failure, unspecified; F32.9 Major depressive disorder, single episode, unspecified; F41.9 Anxiety disorder, unspecified; F17.200 Nicotine dependence, unspecified, uncomplicated; Z88.1 Allergy status to other antibiotic agents; Z88.2 Allergy status to sulfonamides; Z88.5 Allergy status to narcotic agent; Z88.6 Allergy status to analgesic agent; Z91.013 Allergy to seafood; Z91.041 Radiographic dye allergy status; Z91.09 Other allergy status, other than to drugs and biological substances; Z79.51 Long term (current) use of inhaled steroids; Z79.891 Long term (current) use of opiate analgesic; Z79.899 Other long term (current) drug therapy; Z86.14 Personal history of Methicillin resistant Staphylococcus aureus infection; Z90.710 Acquired absence of both cervix and uterus; W00.0XXA Fall on same level due to ice and snow, initial encounter; Y93.01 Activity, walking, marching and hiking; Y92.89 Other specified places as the place of occurrence of the external cause
CPT/HCPCS: 72128; 72131; 73521; 99284

== ENCOUNTER 2018-12-10 17:05 | Inpatient (IN) | payer MEDICARE ==
[2018-12-10] MEDS ORDERED: MORPHINE SULFATE 4 MG/ML SYRINGE IV STA ×2 (18:11→20:55)
[2018-12-10] MEDS ORDERED: SODIUM CHLORIDE 0.9% 1,000 ML IV STA (18:11)
[2018-12-10] MEDS ORDERED: ONDANSETRON 4 MG/2 ML VIAL IVP STA (18:11)
[2018-12-10] MEDS ORDERED: methylPREDNISolone SOD SUCCI 125 MG/2 ML VIAL IV STA (18:21)
[2018-12-10] MEDS ORDERED: FAMOTIDINE 20 MG/2 ML VIAL IV STA (18:21)
[2018-12-10] MEDS ORDERED: diphenhydrAMINE 50 MG/ML 1 ML VIAL IVP STA (18:21)
--- NOTE | 2018-12-10 18:34 | ED ---
General Adult HPI - General Chief complaint: Abdominal Pain Stated complaint: abd pain Time Seen by Provider: 12/10/18 18:01 Source: patient, RN notes reviewed, old records reviewed Mode of arrival: ambulatory Limitations: no limitations - History of Present Illness Initial comments: 43-year-old female patient past medical history of chronic pancreatitis, COPD, fibromyalgia, CHF presents ED with 2 days of epigastric pain. Patient states that this feels similar to pain from pancreatitis that she has experienced in the past. Patient states that she has had some nausea and diarrhea. Denies any emesis. Patient denies any chest pain or shortness of breath. Patient denies any recent heavy alcohol usage. Patient is status post cholecystectomy and hy sterectomy. Patient denies any other complaints. Systemic: Pt denies fatigue, myalgia, fever/chills, rash. Pt denies weakness, night sweats, weight loss. Neuro: Pt denies headache, visual disturbances, syncope or pre-syncope. HEENT: Pt denies ocular discharge or irritation, otalgia, rhinorrhea, pharyngitis or notable lymphadenopathy. Cardiopulmonary: Pt denies chest pain, SOB, heart palpitations, dyspnea on exertion. Abdominal/GI: Pt denies vomitting. : Pt denies dysuria, burning w/ urination, frequency/urgency. Denies new onset urinary or bowel incontinence. MSK: Pt denies myalgia, loss of strength or function in extremities. Neuro: Pt denies new onset weakness, paresthesias. - Related Data Home Medications Medication Instructions Recorded Confirmed Citalopram Hydrobromide [CeleXA] 60 mg PO DAILY 01/06/14 07/15/18 Potassium Chloride [Klor-Con 8] 8 meq PO DAILY 01/06/14 07/15/18 Ipratropium/Albuterol Sulfate 1 puff INHALATION RT-QID PRN 07/26/15 07/15/18 [Combivent Respimat Inhaler] Spironolactone [Aldactone] 25 mg PO DAILY 02/05/17 07/15/18 ALPRAZolam [Xanax] 0.5 mg PO TID PRN 07/15/18 07/15/18 Fluticasone Nasal [place] [Flonase 1 spray EA NOSTRIL BID 07/15/18 07/15/18 Nasal [place]] Zolpidem Tartrate [Ambien] 10 mg PO HS PRN 07/15/18 07/15/18 amLODIPine [Norvasc] 10 mg PO DAILY 07/15/18 07/15/18 diphenhydrAMINE [Benadryl] 50 mg PO QID PRN 07/15/18 07/15/18 oxyCODONE HCL/ACETAMINOPHEN 1 tab PO Q4HR PRN 07/15/18 07/15/18 [Percocet 10-325 mg] Previous Rx's Medication Instructions Recorded Azithromycin [Zithromax Z-pack] 0 mg PO DIRECTED #6 tab 07/19/18 Budesonide [Pulmicort] 1 mg INHALATION RT-BID #60 nebu 07/19/18 predniSONE 0 mg PO DIRECTED #18 tab 07/19/18 Acetaminophen Tab [Tylenol] 1,000 mg PO TID 5 Days tablet 08/21/18 Allergies Allergy/AdvReac Type Severity Reaction Status Date / Time adhesive Allergy Rash/Hives Verified 12/10/18 17:18 amoxicillin Allergy Anaphylaxis Verified 12/10/18 17:18 azithromycin [From Zithromax] Allergy Anaphylaxis Verified 12/10/18 17:18 cephalexin monohydrate Allergy Anaphylaxis Verified 12/10/18 17:18 [From Keflex] ciprofloxacin Allergy Anaphylaxis Verified 12/10/18 17:18 clindamycin Allergy Anaphylaxis Verified 12/10/18 17:18 Iodinated Contrast- Oral and Allergy Swelling Verified 12/10/18 17:18 IV Dye levofloxacin [From Levaquin] Allergy Rash/Hives Verified 12/10/18 17:18 NSAIDS (Non-Steroidal Allergy Rash/Hives Verified 12/10/18 17:18 Anti-Inflamma shellfish derived Allergy Anaphylaxis Verified 12/10/18 17:18 Sulfa (Sulfonamide Allergy Anaphylaxis Verified 12/10/18 17:18 Antibiotics) sulfamethoxazole Allergy Anaphylaxis Verified 12/10/18 17:18 [From Bactrim] tramadol Allergy Unknown Verified 12/10/18 17:18 trimethoprim [From Bactrim] Allergy Anaphylaxis Verified 12/10/18 17:18 Review of Systems ROS Statement: Those systems with pertinent positive or pertinent negative responses have been documented in the HPI. ROS Other: All systems not noted in ROS Statement are negative. 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 IBS, cellulitis of the chin History of Any Multi-Drug Resistant Organisms: MRSA Date of last positivie culture/infection: 07/2016 MDRO Source:: chin Past Surgical History: Section, Cholecystectomy, Hysterectomy, Tubal Ligation Additional Past Surgical History / Comment(s): oral surgery . Pancreas biopsy May 2015. Past Anesthesia/Blood Transfusion Reactions: No Reported Reaction Past Psychological History: ADD/ADHD, Anxiety, Bipolar, Depression Smoking Status: Current some day smoker Past Alcohol Use History: None Reported Past Drug Use History: Marijuana - Past Family History Father Family Medical History: No Reported History Additional Family Medical History / Comment(s): ADOPTED General Exam - General Exam Comments Initial Comments: Constitutional: NAD, AOX3, Pt has pleasant affect. HEENT: NC/AT, trachea midline, neck supple, no lymphadenopathy. Posterior pharynx non erythematous, without exudates. External ears appear normal, without discharge. Mucous membranes moist. Eyes PERRLA, EOM intact. There is no scleral icterus. No pallor noted. Cardiopulmonary: RRR, no murmurs, rubs or gallops, no JVD noted. Lungs CTAB in anterior and posterior daniel. No peripheral edema. Abdominal exam: Abdomen soft and non-distended. Abdomen mildly tender to palpation epigastric and left upper quadrant region. No guarding or rigidity, no ecchymoses. No asher or Shirley Agosto sign.. Bowel sounds active in LLQ. No hepatosplenomegaly. No ecchymosis Neuro: CN II-XII grossly intact. No nuchal rigidity. MSK: No posterior calf tenderness bilaterally, homans sign negative bilaterally. Posterior tibialis and radial pulse +2 bilaterally. Sensation intact in upper and lower extremities. Full active ROM in upper and lower extremities, 5/5 stregnth. Limitations: no limitations Course Vital Signs 12/10/18 12/10/18 17:13 20:25 Temperature 98.6 F Pulse Rate 103 H 91 Respiratory 18 20 Rate Blood Pressure 160/85 168/85 O2 Sat by Pulse 96 96 Oximetry Medical Decision Making - Medical Decision Making 43-year-old female patient past medical history of chronic pancreatitis, COPD, fibromyalgia, CHF presents ED with 2 days of epigastric pain. Patient states that this feels similar to pain from pancreatitis that she has experienced in the past. Patient states that she has had some nausea and diarrhea. Denies any emesis. Patient denies any chest pain or shortness of breath. Patient denies any recent heavy alcohol usage. Patient is status post cholecystectomy and hysterectomy. Patient denies any other complaints. Patient also stable, afebrile. Physical exam revealed abnormalities palpation epigastric, left upper quadrant. No guarding or rigidity no ecchymoses. Laboratory investigations revealed mild leukocytosis of 11.8. CMP revealed mildly elevated, backside of 34. Glucose of 123. Lipase elevated at 574. Troponin negative. UA negative. EKG not concerning for acute ischemia. Chest x-ray revealed no acute process. CT of the pelvis displayed no radiographic evidence for acute appendicitis. Discussed results in depth with patient. Patient lives be admitted for pain control. Patient admitted for acute on chronic pancreatitis. Case discussed with Dr. Olivares. - Lab Data Result diagrams: 12/10/18 18:45 12/10/18 18:45 Lab Results 12/10/18 12/10/18 12/10/18 Range/Units 18:45 18:45 18:45 WBC 11.8 H (3.8-10.6) k/uL RBC 5.44 H (3.80-5.40) m/uL Hgb 14.4 (11.4-16.0) gm/dL Hct 45.2 (34.0-46.0) % MCV 83.0 (80.0-100.0) fL MCH 26.4 (25.0-35.0) pg MCHC 31.8 (31.0-37.0) g/dL RDW 14.1 (11.5-15.5) % Plt Count 404 (150-450) k/uL Neutrophils % 61 % Lymphocytes % 30 % Monocytes % 5 % Eosinophils % 2 % Basophils % 1 % Neutrophils # 7.2 (1.3-7.7) k/uL Lymphocytes # 3.6 (1.0-4.8) k/uL Monocytes # 0.6 (0-1.0) k/uL Eosinophils # 0.2 (0-0.7) k/uL Basophils # 0.1 (0-0.2) k/uL Sodium 138 (137-145) mmol/L Potassium 3.9 (3.5-5.1) mmol/L Chloride 98 (98-107) mmol/L Carbon Dioxide 34 H (22-30) mmol/L Anion Gap 6 mmol/L BUN 16 (7-17) mg/dL Creatinine 0.69 (0.52-1.04) mg/dL Est GFR (CKD-EPI)AfAm >90 (>60 ml/min/1.73 sqM) Est GFR (CKD-EPI)NonAf >90 (>60 ml/min/1.73 sqM) Glucose 123 H (74-99) mg/dL Plasma Lactic Acid Srinivas 1.3 (0.7-2.0) mmol/L Calcium 9.6 (8.4-10.2) mg/dL Total Bilirubin 0.3 (0.2-1.3) mg/dL AST 16 (14-36) U/L ALT 18 (9-52) U/L Alkaline Phosphatase 93 (38-126) U/L Troponin I (0.000-0.034) ng/mL Total Protein 7.2 (6.3-8.2) g/dL Albumin 4.2 (3.5-5.0) g/dL Lipase 574 H (23-300) U/L Urine Color Urine Appearance (Clear) Urine pH (5.0-8.0) Ur Specific [place] (1.001-1.035) Urine Protein (Negative) Urine Glucose (UA) (Negative) Urine Ketones (Negative) Urine Blood (Negative) Urine Nitrite (Negative) Urine Bilirubin (Negative) Urine Urobilinogen (<2.0) mg/dL Ur Leukocyte Esterase (Negative) Urine RBC (0-5) /hpf Urine WBC (0-5) /hpf Ur Squamous Epith Cells (0-4) /hpf Amorphous Sediment (None) /hpf Urine Bacteria (None) /hpf Urine Mucus (None) /hpf 12/10/18 12/10/18 Range/Units 18:45 19:56 WBC (3.8-10.6) k/uL RBC (3.80-5.40) m/uL Hgb (11.4-16.0) gm/dL Hct (34.0-46.0) % MCV (80.0-100.0) fL MCH (25.0-35.0) pg MCHC (31.0-37.0) g/dL RDW (11.5-15.5) % Plt Count (150-450) k/uL Neutrophils % % Lymphocytes % % Monocytes % % Eosinophils % % Basophils % % Neutrophils # (1.3-7.7) k/uL Lymphocytes # (1.0-4.8) k/uL Monocytes # (0-1.0) k/uL Eosinophils # (0-0.7) k/uL Basophils # (0-0.2) k/uL Sodium (137-145) mmol/L Potassium (3.5-5.1) mmol/L Chloride (98-107) mmol/L Carbon Dioxide (22-30) mmol/L Anion Gap mmol/L BUN (7-17) mg/dL Creatinine (0.52-1.04) mg/dL Est GFR (CKD-EPI)AfAm (>60 ml/min/1.73 sqM) Est GFR (CKD-EPI)NonAf (>60 ml/min/1.73 sqM) Glucose (74-99) mg/dL Plasma Lactic Acid Srinivas (0.7-2.0) mmol/L Calcium (8.4-10.2) mg/dL Total Bilirubin (0.2-1.3) mg/dL AST (14-36) U/L ALT (9-52) U/L Alkaline Phosphatase (38-126) U/L Troponin I <0.012 (0.000-0.034) ng/mL Total Protein (6.3-8.2) g/dL Albumin (3.5-5.0) g/dL Lipase (23-300) U/L Urine Color Light Yellow Urine Appearance Clear (Clear) Urine pH 5.0 (5.0-8.0) Ur Specific [place] 1.028 (1.001-1.035) Urine Protein Negative (Negative) Urine Glucose (UA) Negative (Negative) Urine Ketones Negative (Negative) Urine Blood Trace H (Negative) Urine Nitrite Negative (Negative) Urine Bilirubin Negative (Negative) Urine Urobilinogen <2.0 (<2.0) mg/dL Ur Leukocyte Esterase Negative (Negative) Urine RBC 1 (0-5) /hpf Urine WBC 3 (0-5) /hpf Ur Squamous Epith Cells 2 (0-4) /hpf Amorphous Sediment Rare H (None) /hpf Urine Bacteria Rare H (None) /hpf Urine Mucus Rare H (None) /hpf Disposition Clinical Impression: Pancreatitis Disposition: ADMITTED IP TO THIS HOSP Condition: Serious Is patient prescribed a controlled substance at d/c from ED?: No Referrals: None,Stated [Primary Care Provider] - 1-2 days
[2018-12-10 19:21] LABS: Basophils # (A) 0.1 k/uL (0-0.2); Basophils % (A) 1 %; Eosinophils # (A) 0.2 k/uL (0-0.7); Eosinophils % (A) 2 %; HCT 45.2 % (34.0-46.0); HGB 14.4 gm/dL (11.4-16.0); Lymphocytes # (A) 3.6 k/uL (1.0-4.8); Lymphocytes % (A) 30 %; MCH 26.4 pg (25.0-35.0); MCHC 31.8 g/dL (31.0-37.0); Mean Platelet Volume 6.8; Monocytes # (A) 0.6 k/uL (0-1.0); Monocytes % (A) 5 %; Neutrophils # (A) 7.2 k/uL (1.3-7.7); Neutrophils % (A) 61 %; Platelet Count 404 k/uL (150-450); RBC 5.44 m/uL (3.80-5.40); RDW 14.1 % (11.5-15.5); WBC 11.8 k/uL (3.8-10.6)
[2018-12-10 19:31] LABS: ALT 18 U/L (9-52); AST 16 U/L (14-36); Albumin 4.2 g/dL (3.5-5.0); Alkaline Phosphatase 93 U/L (38-126); Anion Gap 6 mmol/L; Blood Urea Nitrogen 16 mg/dL (7-17); Calcium 9.6 mg/dL (8.4-10.2); Carbon Dioxide 34 mmol/L (22-30); Chloride 98 mmol/L (98-107); Glucose 123 mg/dL (74-99); Lipase 574 U/L (23-300); Potassium 3.9 mmol/L (3.5-5.1); Sodium 138 mmol/L (137-145); Total Bilirubin 0.3 mg/dL (0.2-1.3); Total Protein 7.2 g/dL (6.3-8.2)
--- NOTE | 2018-12-10 19:55 | XR ---
EXAMINATION TYPE: XR chest 2V DATE OF EXAM: 12/10/2018 COMPARISON: 07/15/2018 INDICATION: Pain asthma TECHNIQUE: Frontal and lateral views of the chest are obtained. FINDINGS: The heart size is normal. The pulmonary vasculature is normal. The lungs are clear. IMPRESSION: 1. No acute pulmonary process.
--- NOTE | 2018-12-10 20:11 | CT ---
EXAMINATION TYPE: CT abdomen pelvis w con DATE OF EXAM: 12/10/2018 COMPARISON: 09/04/2015 INDICATION: Abdominal pain. Hx pancreatitis. DLP: 1461.9 mGycm, Automated exposure control for dose reduction was used. CONTRAST: 100 mL of Isovue 300. Study performed without Oral Contrast TECHNIQUE: Axial images were obtained from above the diaphragm to the pubic rami in the axial plane a t 5 mm thick sections. Reconstructed images are reviewed on the computer in the coronal plane. FINDINGS: Limited CT sections are obtained the lung bases. The lung bases are clear. CT ABDOMEN: Liver: Normal Spleen: Normal Pancreas: Normal. Suspicious changes for acute pancreatitis or not radiographically apparent Adrenal glands: The adrenal glands are normal. Gallbladder: Surgically absent Kidneys: No masses are evident. No hydronephrosis is present. No cysts are present. Delayed images were obtained through the kidneys, which remain unremarkable. Aorta: Vascular calcification is within the aorta. Inferior vena cava: Normal. CT PELVIS: Loops of bowel within the abdomen and pelvis are normal. There are loops of bowel which are incom pletely distended or lack oral contrast limiting their evaluation. Appendix: Normal as visualized. Urinary bladder: Normal. Genitourinary structures: Prostate is normal Osseous structures: No suspicious lytic or sclerotic lesions. IMPRESSIONS: 1. No radiographic evidence of acute pancreatitis current examination.
[2018-12-10 20:20] LABS: Amorphous Sediment,Urine Rare /hpf; Appearance,Urine Clear (Clear); Bacteria,Urine Rare /hpf; Bilirubin,Urine Negative (Negative); Blood,Urine Trace (Negative); Color,Urine Light Yellow; Glucose,Urine (UA) Negative (Negative); Ketones,Urine Negative (Negative); Leukocyte Esterase,Urine Negative (Negative); Mucus,Urine Rare /hpf; Nitrite,Urine Negative (Negative); Protein,Urine Negative (Negative); RBC,Urine 1 /hpf (0-5); Specific Gravity,Urine 1.028 (1.001-1.035); Squamous Epithelial Cell,Urine 2 /hpf (0-4); Urobilinogen,Urine <2.0 mg/dL (<2.0); WBC,Urine 3 /hpf (0-5)
[2018-12-10] MEDS ORDERED: ONDANSETRON 4 MG/2 ML VIAL IVP PRN (21:00)
[2018-12-10] MEDS ORDERED: NALOXONE 0.4 MG/ML 1 ML VIAL IV PRN (21:00)
[2018-12-10] MEDS ORDERED: MORPHINE SULFATE 4 MG/ML SYRINGE IV PRN (21:00)
[2018-12-10] MEDS: SODIUM CHLORIDE 0.9% 1,000 ML IV SCH (21:43)
[2018-12-10 22:57] VITALS: BMI 43.4
[2018-12-10] MEDS: ALPRAZolam 0.5 MG TAB PO PRN (23:02)
[2018-12-10] MEDS ORDERED: IPRATROPIUM-ALBUTEROL 3 ML NEB INHALATION PRN ×2 (23:21)
[2018-12-10] MEDS ORDERED: ALBUTEROL NEBULIZED 2.5 MG/3 ML INHALATION PRN (23:21)
[2018-12-11] MEDS: HYDROmorphone 1 MG/ML 1 ML SYRINGE IVP PRN ×8 (00:03→23:11)
--- NOTE | 2018-12-11 00:52 | HP ---
HISTORY AND PHYSICAL CHIEF COMPLAINT: A 43-year-old white female with chronic pancreatitis, COPD, fibromyalgia, CHF, two days epigastric pain left lateral quadrant similar to pancreatitis pain she has had in the past. She has nausea and diarrhea. Denies any vomiting. CT scan of the abdomen was negative. No alcohol use. She has chronic pain, fever, chills, are negative. HOME MEDICINES: Celexa, Klor-Con, Combivent, Xanax, Aldactone, Flonase, Ambien, Norvasc, Benadryl, oxycodone, she sees Dr. Aguilar for fibromyalgia. ALLERGIES: ERYTHROMYCIN, AMOXICILLIN, ADHESIVE, KEFLEX, CIPRO, CLINDAMYCIN, LEVAQUIN, SHELLFISH, SULFAS, TRAMADOL, BACTRIM. REVIEW OF SYSTEMS: Fourteen point review of systems negative except for mentioned in HPI. PAST MEDICAL HISTORY: Asthma, heart failure, COPD, CVA, TIA, fibromyalgia, pneumonia, rheumatoid arthritis, seizure disorder, syncope, pancreatic fibrosis, kidney stones, back pain, migraines. PAST SURGICAL HISTORY: , cholecystectomy, hysterectomy, tubal ligation, pancreas biopsy 2014. She is disabled due to bipolar depression, ADD, anxiety, posttraumatic stress disorder. SOCIAL HISTORY: Marijuana smoker. No alcohol. FAMILY HISTORY: Father negative. Mother negative. PHYSICAL EXAM: Vital signs stable. Afebrile. Cardiovascular S1, S2. Lungs transmitted upper sounds. GI is tender to palpation left lateral quadrant to minimal palpation. Endocrine is BMI is greater than 40. Psych she appears kind of anxious, alert, oriented x3. Cranial nerves are intact. Pulse is 103, temp 98.6, respiratory 18 to 20, blood pressure is 161 to 168/85. ASSESSMENT: 1. Acute abdominal pain. 2. Acute left flank pain. 3. History of chronic pancreatitis. 4. Chronic obstructive pulmonary disease. 5. Fibromyalgia. 6. Possible history of asthma/chronic obstructive pulmonary disease. 7. Nicotine addiction. Lipase 574. Troponins are negative. ASSESSMENT: 1. Acute on chronic abdominal pain secondary to possible acute pancreatitis. 2. Acute on chronic pancreatitis. 3. Rule out diabetes mellitus due to hyperglycemia. 4. Possible with some mild dehydration. 5. Fibromyalgia. 6. Multiple medical problems. Surgical and GI consult. Fluid rehydration. Clear liquid diet. Pain medication control. CT scan of the abdomen and pelvis as mentioned was reviewed. MMODL / IJN: [id number] /
[2018-12-11] MEDS: SODIUM CHLORIDE 0.9% 1,000 ML IV SCH ×3 (04:14→18:02)
[2018-12-11 07:38] LABS: Basophils % (A) 0 %; Eosinophils # (A) 0.1 k/uL (0-0.7); Eosinophils % (A) 1 %; HCT 44.4 % (34.0-46.0); HGB 14.1 gm/dL (11.4-16.0); Lymphocytes # (A) 0.9 k/uL (1.0-4.8); Lymphocytes % (A) 10 %; MCH 26.7 pg (25.0-35.0); MCHC 31.7 g/dL (31.0-37.0); MCV 84.4 fL (80.0-100.0); Mean Platelet Volume 6.9; Monocytes # (A) 0.1 k/uL (0-1.0); Monocytes % (A) 1 %; Neutrophils # (A) 7.6 k/uL (1.3-7.7); Neutrophils % (A) 88 %; Platelet Count 375 k/uL (150-450); RBC 5.27 m/uL (3.80-5.40); RDW 13.5 % (11.5-15.5); WBC 8.6 k/uL (3.8-10.6)
[2018-12-11 07:55] LABS: ALT 18 U/L (9-52); AST 14 U/L (14-36); Albumin 3.9 g/dL (3.5-5.0); Alkaline Phosphatase 92 U/L (38-126); Anion Gap 7 mmol/L; Blood Urea Nitrogen 17 mg/dL (7-17); Carbon Dioxide 28 mmol/L (22-30); Chloride 104 mmol/L (98-107); Glucose 172 mg/dL (74-99); Potassium 4.4 mmol/L (3.5-5.1); Sodium 139 mmol/L (137-145); Total Bilirubin 0.2 mg/dL (0.2-1.3); Total Protein 6.9 g/dL (6.3-8.2)
[2018-12-11] MEDS: CITALOPRAM HYDROBROMIDE 20 MG TAB PO SCH (08:15)
[2018-12-11] MEDS: SPIRONOLACTONE 25 MG TAB PO SCH (08:15)
[2018-12-11] MEDS ORDERED: POTASSIUM CHLORIDE 8 MEQ PO SCH (09:00)
[2018-12-11] MEDS: ALPRAZolam 0.5 MG TAB PO PRN ×2 (10:11→21:32)
--- NOTE | 2018-12-11 10:47 | P.GSCN ---
History of Present Illness Consult date: 12/11/18 Reason for Consult: Pancreatitis History of present illness: This a 43-year-old female who was admitted to the hospital complaints of abdominal pain. She is worked up found have pancreatitis. Her lipase was in the 570 range. She states she still has pain this morning. Her pain is mainly in the epigastric area. She's had a previous cholecystectomy. 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 IBS, cellulitis of the chin History of Any Multi-Drug Resistant Organisms: MRSA Year Discovered:: 07/2016 MDRO Source:: [facility] Past Surgical History: Section, Cholecystectomy, Hysterectomy, Tubal Ligation Additional Past Surgical History / Comment(s): oral surgery . Pancreas biopsy May 2015. Past Anesthesia/Blood Transfusion Reactions: No Reported Reaction Past Psychological History: ADD/ADHD, Anxiety, Bipolar, Depression Additional Psychological History / Comment(s): borderline personality disorder Smoking Status: Former smoker Past Alcohol Use History: None Reported Past Drug Use History: Marijuana Additional Drug Use History / Comment(s): Says she occasionally has edible marijuana- a couple times within the last year. - Past Family History Father Family Medical History: No Reported History Additional Family Medical History / Comment(s): ADOPTED Medications and Allergies Home Medications Medication Instructions Recorded Confirmed Type Citalopram Hydrobromide [CeleXA] 60 mg PO DAILY 01/06/14 12/10/18 History Potassium Chloride [Klor-Con 8] 8 meq PO DAILY 01/06/14 12/10/18 History Ipratropium/Albuterol Sulfate 1 puff INHALATION RT-QID PRN 07/26/15 12/10/18 History [Combivent Respimat Inhaler] Spironolactone [Aldactone] 25 mg PO DAILY 02/05/17 12/10/18 History ALPRAZolam [Xanax] 0.5 mg PO TID 07/15/18 12/10/18 History Zolpidem Tartrate [Ambien] 10 mg PO HS 07/15/18 12/10/18 History diphenhydrAMINE [Benadryl] 50 mg PO QID 07/15/18 12/10/18 History oxyCODONE HCL/ACETAMINOPHEN 1 tab PO Q4HR 07/15/18 12/10/18 History [Percocet 10-325 mg] Albuterol Inhaler [Ventolin Hfa 1 - 2 puff INHALATION RT-Q6H PRN 12/10/18 12/10/18 History Inhaler] Ipratropium-Albuterol Nebulize 3 ml INHALATION RT-BID PRN 12/10/18 12/10/18 History [Duoneb 0.5 mg-3 mg/3 ml Soln] Allergies Allergy/AdvReac Type Severity Reaction Status Date / Time adhesive Allergy Rash/Hives Verified 12/10/18 21:17 amoxicillin Allergy Anaphylaxis Verified 12/10/18 21:17 azithromycin [From Zithromax] Allergy Anaphylaxis Verified 12/10/18 21:17 cephalexin monohydrate Allergy Anaphylaxis Verified 12/10/18 21:17 [From Keflex] ciprofloxacin Allergy Anaphylaxis Verified 12/10/18 21:17 clindamycin Allergy Anaphylaxis Verified 12/10/18 21:17 Iodinated Contrast- Oral and Allergy Swelling Verified 12/10/18 21:17 IV Dye levofloxacin [From Levaquin] Allergy Rash/Hives Verified 12/10/18 21:17 NSAIDS (Non-Steroidal Allergy Rash/Hives Verified 12/10/18 21:17 Anti-Inflamma shellfish derived Allergy Anaphylaxis Verified 12/10/18 21:17 Sulfa (Sulfonamide Allergy Anaphylaxis Verified 12/10/18 21:17 Antibiotics) sulfamethoxazole Allergy Anaphylaxis Verified 12/10/18 21:17 [From Bactrim] tramadol Allergy Unknown Verified 12/10/18 21:17 trimethoprim [From Bactrim] Allergy Anaphylaxis Verified 12/10/18 21:17 Surgical - Exam Vital Signs Temp Pulse Resp BP Pulse Ox 98.6 F 103 H 18 160/85 96 12/10/18 17:13 12/10/18 17:13 12/10/18 17:13 12/10/18 17:13 12/10/18 17:13 - General well developed, well nourished, no distress - Eyes PERRL - ENT normal pinna - Neck no masses - Respiratory normal expansion - Cardiovascular Rhythm: regular - Abdomen Abdomen: soft, non tender Results - Labs 12/11/18 07:17 12/11/18 07:17 Abnormal Lab Results - Last 24 Hours (Table) 12/10/18 12/10/18 12/10/18 Range/Units 18:45 18:45 19:56 WBC 11.8 H (3.8-10.6) k/uL RBC 5.44 H (3.80-5.40) m/uL Lymphocytes # (1.0-4.8) k/uL Carbon Dioxide 34 H (22-30) mmol/L Creatinine (0.52-1.04) mg/dL Glucose 123 H (74-99) mg/dL Lipase 574 H (23-300) U/L Urine Blood Trace H (Negative) Amorphous Sediment Rare H (None) /hpf Urine Bacteria Rare H (None) /hpf Urine Mucus Rare H (None) /hpf 12/11/18 12/11/18 Range/Units 07:17 07:17 WBC (3.8-10.6) k/uL RBC (3.80-5.40) m/uL Lymphocytes # 0.9 L (1.0-4.8) k/uL Carbon Dioxide (22-30) mmol/L Creatinine 0.50 L (0.52-1.04) mg/dL Glucose 172 H (74-99) mg/dL Lipase (23-300) U/L Urine Blood (Negative) Amorphous Sediment (None) /hpf Urine Bacteria (None) /hpf Urine Mucus (None) /hpf Diabetes panel 12/10/18 12/11/18 Range/Units 18:45 07:17 Sodium 138 139 (137-145) mmol/L Potassium 3.9 4.4 (3.5-5.1) mmol/L Chloride 98 104 (98-107) mmol/L Carbon Dioxide 34 H 28 (22-30) mmol/L BUN 16 17 (7-17) mg/dL Creatinine 0.69 0.50 L (0.52-1.04) mg/dL Glucose 123 H 172 H (74-99) mg/dL Calcium 9.6 9.0 (8.4-10.2) mg/dL AST 16 14 (14-36) U/L ALT 18 18 (9-52) U/L Alkaline Phosphatase 93 92 (38-126) U/L Total Protein 7.2 6.9 (6.3-8.2) g/dL Albumin 4.2 3.9 (3.5-5.0) g/dL Calcium panel 12/10/18 12/11/18 Range/Units 18:45 07:17 Calcium 9.6 9.0 (8.4-10.2) mg/dL Albumin 4.2 3.9 (3.5-5.0) g/dL Pituitary panel 12/10/18 12/11/18 Range/Units 18:45 07:17 Sodium 138 139 (137-145) mmol/L Potassium 3.9 4.4 (3.5-5.1) mmol/L Chloride 98 104 (98-107) mmol/L Carbon Dioxide 34 H 28 (22-30) mmol/L BUN 16 17 (7-17) mg/dL Creatinine 0.69 0.50 L (0.52-1.04) mg/dL Glucose 123 H 172 H (74-99) mg/dL Calcium 9.6 9.0 (8.4-10.2) mg/dL Adrenal panel 12/10/18 12/11/18 Range/Units 18:45 07:17 Sodium 138 139 (137-145) mmol/L Potassium 3.9 4.4 (3.5-5.1) mmol/L Chloride 98 104 (98-107) mmol/L Carbon Dioxide 34 H 28 (22-30) mmol/L BUN 16 17 (7-17) mg/dL Creatinine 0.69 0.50 L (0.52-1.04) mg/dL Glucose 123 H 172 H (74-99) mg/dL Calcium 9.6 9.0 (8.4-10.2) mg/dL Total Bilirubin 0.3 0.2 (0.2-1.3) mg/dL AST 16 14 (14-36) U/L ALT 18 18 (9-52) U/L Alkaline Phosphatase 93 92 (38-126) U/L Total Protein 7.2 6.9 (6.3-8.2) g/dL Albumin 4.2 3.9 (3.5-5.0) g/dL Assessment and Plan Assessment: Marissa Leal. Patient denies any significant alcohol use. She will be fluid hydrated and have supportive care.
--- NOTE | 2018-12-11 13:24 | P.CONS ---
History of Present Illness - Reason for Consult Consult date: 12/11/18 Pancreatitis Requesting physician: Daren Hendricks - Chief Complaint Abdominal pain - History of Present Illness 43-year-old female with multiple medical comorbidities including COPD, chronic pain, fibromyalgia, congestive heart failure, rheumatoid arthritis and prior episodes of acute pancreatitis who presented to the hospital with complaints of abdominal pain. The patient reports 2 days of pain in the epigastric and left upper quadrant of her abdomen. She describes the pain as intense in nature and similar to prior episodes of pancreatitis. Patient states that the first episode occurred approximately 5 years ago and that she has undergone extensive evaluation including a biopsy at the [facility]. She is unclear if the results stating that it just showed pancreatitis, but pancreatic fibrosis diagnosis in 2016 is documented in the EMR. The patient states that episodes occur approximately one to 2 times per year and she associates some with stress or spicy foods. She denies any chronic medications for pancreatitis except for pain medications. She also reports nausea and association with her abdominal pain. The patient has a chronic history of diarrhea and states that she has IBS. The patient reports approximately 10 movements per day on average. This was previously treated with Lomotil therapy. She states she was evaluated with EGD and colonoscopy in 2011 which were negative. She was previously a 3 pack per day smoker but currently reports approximately 2 cigarettes per day. Laboratory evaluation on presentation was significant for a WBC 8.6, hemoglobin 14.1, platelet count 375,000, total bilirubin 0.2, alkaline phosphatase 92, AST 14 and ALTs 15 with a lipase of 574. Computed tomography scan of the abdomen was negative for signs of acute pancreatitis. Review of Systems REVIEW OF SYSTEMS: CONSTITUTIONAL: Denies any fevers, chills, weight change or fatigue. CARDIOVASCULAR: Denies any chest pain, palpitations high or low blood pressures RESPIRATORY: Denies any shortness of breath, hemoptysis or cough. GENITOURINARY: No dysuria or hematuria. MUSCULOSKELETAL: No weakness reported. SKIN: Denies any new rashes or lesions, jaundice or pallor. PSYCHIATRIC: Denies any depression or anxiety. NEUROLOGY: Denies headache, denies any new focal deficits. EARS/NOSE/THROAT: No recent hearing change, congestion, nasal discharge or sore throat. EYES: No pain in eyes, discharge or change in vision. GASTROINTESTINAL: As per HPI. 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 IBS, cellulitis of the chin History of Any Multi-Drug Resistant Organisms: MRSA Year Discovered:: 07/2016 MDRO Source:: [facility] Past Surgical History: Section, Cholecystectomy, Hysterectomy, Tubal Ligation Additional Past Surgical History / Comment(s): oral surgery . Pancreas biopsy May 2015. Past Anesthesia/Blood Transfusion Reactions: No Reported Reaction Past Psychological History: ADD/ADHD, Anxiety, Bipolar, Depression Additional Psychological History / Comment(s): borderline personality disorder Smoking Status: Former smoker Past Alcohol Use History: None Reported Past Drug Use History: Marijuana Additional Drug Use History / Comment(s): Says she occasionally has edible marijuana- a couple times within the last year. - Past Family History Father Family Medical History: No Reported History Additional Family Medical History / Comment(s): ADOPTED Medications and Allergies Home Medications Medication Instructions Recorded Confirmed Type Citalopram Hydrobromide [CeleXA] 60 mg PO DAILY 01/06/14 12/10/18 History Potassium Chloride [Klor-Con 8] 8 meq PO DAILY 01/06/14 12/10/18 History Ipratropium/Albuterol Sulfate 1 puff INHALATION RT-QID PRN 07/26/15 12/10/18 History [Combivent Respimat Inhaler] Spironolactone [Aldactone] 25 mg PO DAILY 02/05/17 12/10/18 History ALPRAZolam [Xanax] 0.5 mg PO TID 07/15/18 12/10/18 History Zolpidem Tartrate [Ambien] 10 mg PO HS 07/15/18 12/10/18 History diphenhydrAMINE [Benadryl] 50 mg PO QID 07/15/18 12/10/18 History oxyCODONE HCL/ACETAMINOPHEN 1 tab PO Q4HR 07/15/18 12/10/18 History [Percocet 10-325 mg] Albuterol Inhaler [Ventolin Hfa 1 - 2 puff INHALATION RT-Q6H PRN 12/10/18 12/10/18 History Inhaler] Ipratropium-Albuterol Nebulize 3 ml INHALATION RT-BID PRN 12/10/18 12/10/18 History [Duoneb 0.5 mg-3 mg/3 ml Soln] Allergies Allergy/AdvReac Type Severity Reaction Status Date / Time adhesive Allergy Rash/Hives Verified 12/10/18 21:17 amoxicillin Allergy Anaphylaxis Verified 12/10/18 21:17 azithromycin [From Zithromax] Allergy Anaphylaxis Verified 12/10/18 21:17 cephalexin monohydrate Allergy Anaphylaxis Verified 12/10/18 21:17 [From Keflex] ciprofloxacin Allergy Anaphylaxis Verified 12/10/18 21:17 clindamycin Allergy Anaphylaxis Verified 12/10/18 21:17 Iodinated Contrast- Oral and Allergy Swelling Verified 12/10/18 21:17 IV Dye levofloxacin [From Levaquin] Allergy Rash/Hives Verified 12/10/18 21:17 NSAIDS (Non-Steroidal Allergy Rash/Hives Verified 12/10/18 21:17 Anti-Inflamma shellfish derived Allergy Anaphylaxis Verified 12/10/18 21:17 Sulfa (Sulfonamide Allergy Anaphylaxis Verified 12/10/18 21:17 Antibiotics) sulfamethoxazole Allergy Anaphylaxis Verified 12/10/18 21:17 [From Bactrim] tramadol Allergy Unknown Verified 12/10/18 21:17 trimethoprim [From Bactrim] Allergy Anaphylaxis Verified 12/10/18 21:17 Physical Exam Vitals: Vital Signs Temp Pulse Pulse Resp BP BP Pulse Ox 12/11/18 02:24 98.1 F 98 18 144/93 90 L 12/10/18 22:00 98.1 F 75 19 133/92 95 12/10/18 20:25 91 20 168/85 96 12/10/18 17:13 98.6 F 103 H 18 160/85 96 Intake and Output 12/10/18 12/11/18 12/11/18 22:59 06:59 14:59 Other: # Voids 1 Weight 101.06 kg On physical examination, patient appears comfortable in no apparent distress. HEAD: Normocephalic, atraumatic. EYES: No scleral icterus. No conjunctival injection. MOUTH: No lesions, tongue midline. NECK: Trachea midline, no gross abnormalities. CHEST: Clear to auscultation with no wheezing or rhonchi appreciated. HEART: Regular rate and rhythm. ABDOMEN: Soft, obese and moderately tender to palpation. Bowel sounds are positive. No organomegaly. No guarding or rigidity. EXTREMITIES: No pedal edema. SKIN: No rashes, no jaundice. NEUROLOGIC: Alert and oriented x3. No focal deficits. Results CBC & Chem 7: 12/11/18 07:17 12/11/18 07:17 Labs: Abnormal Lab Results - Last 24 Hours (Table) 12/10/18 12/10/18 12/10/18 Range/Units 18:45 18:45 19:56 WBC 11.8 H (3.8-10.6) k/uL RBC 5.44 H (3.80-5.40) m/uL Lymphocytes # (1.0-4.8) k/uL Carbon Dioxide 34 H (22-30) mmol/L Creatinine (0.52-1.04) mg/dL Glucose 123 H (74-99) mg/dL Lipase 574 H (23-300) U/L Urine Blood Trace H (Negative) Amorphous Sediment Rare H (None) /hpf Urine Bacteria Rare H (None) /hpf Urine Mucus Rare H (None) /hpf 12/11/18 12/11/18 Range/Units 07:17 07:17 WBC (3.8-10.6) k/uL RBC (3.80-5.40) m/uL Lymphocytes # 0.9 L (1.0-4.8) k/uL Carbon Dioxide (22-30) mmol/L Creatinine 0.50 L (0.52-1.04) mg/dL Glucose 172 H (74-99) mg/dL Lipase (23-300) U/L Urine Blood (Negative) Amorphous Sediment (None) /hpf Urine Bacteria (None) /hpf Urine Mucus (None) /hpf CT scan - abdomen: report reviewed (Computed tomography scan of the abdomen with no evidence of acute pancreatic inflammation) Assessment and Plan (1) Pancreatitis Narrative/Plan: 43-year-old with history of prior episodes of pancreatitis, unclear from her history as she has a history of chronic pancreatitis that she has undergone evaluation with biopsy in the past who presented to the hospital with complaints of abdominal pain similar to prior episodes of pancreatitis. Lipase was found to be mildly elevated at [address] of the abdomen did not consistent with pancreatic inflammation. This may be a late presentation of pancreatitis with lipase not 3 times the upper limit of normal, versus an acute exacerbation of her chronic abdominal pain/chronic pancreatitis, functional pain or other etiology. Current Visit: Yes Status: Acute Code(s): K85.9 - ACUTE PANCREATITIS, UNSPECIFIED * DO NOT USE * SNOMED Code(s): 44420292 (2) Abdominal pain Current Visit: No Status: Acute Code(s): R10.9 - UNSPECIFIED ABDOMINAL PAIN SNOMED Code(s): 17538153 (3) Diarrhea Narrative/Plan: Patient states she has a history of IBS diarrhea predominant and has treated this with Lomotil as needed in the past. Currently Clostridium testing is pending. If the patient does have a history of chronic pancreatitis she may benefit from pancreatic enzyme replacement therapy. This can be evaluated with stool testing in the outpatient setting for confirmation of chronic pancreatitis. Current Visit: No Status: Acute Code(s): R19.7 - DIARRHEA, UNSPECIFIED SNOMED Code(s): 13578895 Plan: Supportive care Advanced diet to liquids Continue pain control Continue fluid hydration We'll check triglyceride level Extensive conversation with the patient on the need for cessation of tobacco use Consideration for possible enzyme replacement therapy if chronic pancreatitis is confirmed Thank you for allowing us dysphagia in the care of the patient we will continue to follow
[2018-12-11] MEDS: POTASSIUM CHLORIDE 8 MEQ PO SCH (14:40)
--- NOTE | 2018-12-12 00:47 | PN ---
PROGRESS NOTE 43 -year-old white female who continues with pancreatitis. Clear liquid diet only. Pain medicine control. Bowel rest. Awaiting repeat lipase. Surgery and GI recommendations are upheld. Cardiovascular S1-S2. Lungs clear. GI is increased bowel sounds x4. Left flank tenderness to minimal palpation. ASSESSMENT: 1. Chronic pancreatitis. 2. Left flank pain. 3. Obesity. 4. Multiple medical conditions including fibromyalgia. 5. Chronic pain syndrome. Continue current treatment. Surgical and GI recommendations. MMODL / IJN: [id number] /
[2018-12-12] MEDS: HYDROmorphone 1 MG/ML 1 ML SYRINGE IVP PRN ×5 (02:31→14:27)
[2018-12-12] MEDS: SODIUM CHLORIDE 0.9% 1,000 ML IV SCH ×4 (08:38→23:52)
[2018-12-12] MEDS: CITALOPRAM HYDROBROMIDE 20 MG TAB PO SCH (08:38)
[2018-12-12] MEDS: SPIRONOLACTONE 25 MG TAB PO SCH (08:38)
[2018-12-12] MEDS: ALPRAZolam 0.5 MG TAB PO PRN (08:47)
[2018-12-12] MEDS: POTASSIUM CHLORIDE 8 MEQ PO SCH (08:47)
[2018-12-12 08:52] LABS: Basophils # (A) 0.1 k/uL (0-0.2); Basophils % (A) 1 %; Eosinophils # (A) 0.1 k/uL (0-0.7); Eosinophils % (A) 1 %; HCT 42.4 % (34.0-46.0); HGB 13.1 gm/dL (11.4-16.0); Hypochromasia Moderate; Lymphocytes # (A) 3.3 k/uL (1.0-4.8); Lymphocytes % (A) 36 %; MCH 26.6 pg (25.0-35.0); MCHC 30.9 g/dL (31.0-37.0); MCV 86.1 fL (80.0-100.0); Monocytes # (A) 0.4 k/uL (0-1.0); Monocytes % (A) 4 %; Neutrophils # (A) 5.1 k/uL (1.3-7.7); Neutrophils % (A) 56 %; Platelet Count 336 k/uL (150-450); RBC 4.92 m/uL (3.80-5.40); RDW 13.6 % (11.5-15.5); WBC 9.1 k/uL (3.8-10.6)
[2018-12-12 08:56] LABS: ALT 21 U/L (9-52); AST 20 U/L (14-36); Albumin 3.7 g/dL (3.5-5.0); Alkaline Phosphatase 71 U/L (38-126); Anion Gap 8 mmol/L; Blood Urea Nitrogen 11 mg/dL (7-17); Calcium 8.7 mg/dL (8.4-10.2); Carbon Dioxide 26 mmol/L (22-30); Chloride 105 mmol/L (98-107); Glucose 130 mg/dL (74-99); Potassium 4.1 mmol/L (3.5-5.1); Sodium 139 mmol/L (137-145); Total Bilirubin 0.2 mg/dL (0.2-1.3); Total Protein 6.5 g/dL (6.3-8.2); Triglycerides 164 mg/dL (<150)
--- NOTE | 2018-12-12 10:13 | P.PN ---
Subjective Progress Note Date: 12/12/18 CHIEF COMPLAINT: abdominal pain HISTORY OF PRESENT ILLNESS: Patient examined at the bedside this morning. She reports epigastric pain that radiates around the left side to her upper back. Currently rating pain 6/10 and states it is improved significantly since ad mission. She reports nausea. Denies vomiting. Tolerating clear liquid diet. PHYSICAL EXAM: VITAL SIGNS: Reviewed. GENERAL: Well-developed in no acute distress. HEENT: No sclera icterus. Extraocular movements grossly intact. Moist buccal mucosa. Head is atraumatic, normocephalic. ABDOMEN: Soft. Nondistended. Tenderness near epigastric region. NEUROLOGIC: Alert and oriented. Cranial nerves II through XII grossly intact. ASSESSMENT: 1. Pancreatitis PLAN: 1. Continue clear liquid diet. Will defer advancement of diet to GI service 2. No surgical intervention recommended at this time Nurse practitioner note has been reviewed by physician. Signing provider agrees with the documented findings, assessment, and plan of care. Objective - Vital Signs Vital signs: Vital Signs Temp 97.6 F 12/12/18 07:00 Pulse 85 12/12/18 07:00 Resp 16 12/12/18 07:00 BP 146/99 12/12/18 07:00 Pulse Ox 91 L 12/12/18 07:00 Intake & Output 12/11/18 12/12/18 12/12/18 18:59 06:59 18:59 Intake Total 1600 720 480 Balance 1600 720 480 Intake: Intake, IV Titration 1120 Amount Sodium Chloride 0.9% 1, 1120 000 ml @ 140 mls/hr IV . Q7H9M [facility] Rx#:[id number] Oral 480 720 480 Other: Voiding Method Toilet # Voids 3 1 - Labs CBC & Chem 7: 12/12/18 08:11 12/12/18 08:11 Labs: Abnormal Lab Results - Last 24 Hours (Table) 12/12/18 12/12/18 Range/Units 08:11 08:11 MCHC 30.9 L (31.0-37.0) g/dL Glucose 130 H (74-99) mg/dL Triglycerides 164 H (<150) mg/dL
--- NOTE | 2018-12-12 11:55 | P.PN ---
Subjective Progress Note Date: 12/12/18 Principal diagnosis: Acute pancreatitis Feels better reports mild abdominal soreness. Afebrile. Pancreatic enzymes normalized. Requesting diet advancement. Triglycerides 164. No diarrhea. Objective - Vital Signs Vital signs: Vital Signs Temp 97.6 F 12/12/18 07:00 Pulse 85 12/12/18 07:00 Resp 16 12/12/18 07:00 BP 146/99 12/12/18 07:00 Pulse Ox 91 L 12/12/18 07:00 Intake & Output 12/11/18 12/12/18 12/12/18 18:59 06:59 18:59 Intake Total 1600 720 480 Balance 1600 720 480 Intake: Intake, IV Titration 1120 Amount Sodium Chloride 0.9% 1, 1120 000 ml @ 140 mls/hr IV . Q7H9M [facility] Rx#:[id number] Oral 480 720 480 Other: Voiding Method Toilet # Voids 3 1 1 - Exam General appearance: The patient is alert, oriented, in no acute distress. HET: Head is normocephalic and atraumatic. Pupils are equal and reactive. Oropharynx is clear without lesions. Neck: Supple without lymphadenopathy. Trachea midline. Heart: S1 S2. Regular rate and rhythm. Lungs: No crackles or wheezes are heard. Abdomen: Soft, mild tenderness to the upper abdomen bilaterally, nondistended with bowel sounds. No peritoneal signs. No palpable organomegaly or masses. Extremities: Normal skin color and turgor. No cyanosis, rash, ulceration, clubbing, or edema. Radial and pedal pulses are 2/4 bilaterally. Neurological: No focal deficits. Strength and sensation are grossly intact. - Labs CBC & Chem 7: 12/12/18 08:11 12/12/18 08:11 Labs: Abnormal Lab Results - Last 24 Hours (Table) 12/12/18 12/12/18 Range/Units 08:11 08:11 MCHC 30.9 L (31.0-37.0) g/dL Glucose 130 H (74-99) mg/dL Triglycerides 164 H (<150) mg/dL Assessment and Plan (1) Pancreatitis Narrative/Plan: Idiopathic history of previous pancreatitis episodes. Current Visit: Yes Status: Acute Code(s): K85.9 - ACUTE PANCREATITIS, UNSPECIFIED * DO NOT USE * SNOMED Code(s): 56025135 (2) Abdominal pain Current Visit: No Status: Acute Code(s): R10.9 - UNSPECIFIED ABDOMINAL PAIN SNOMED Code(s): 08893341 (3) Diarrhea Narrative/Plan: History of IBS Current Visit: No Status: Acute Code(s): R19.7 - DIARRHEA, UNSPECIFIED SNOMED Code(s): 65126761 Plan: 1. Low-fat diet. Continue symptomatic supportive measures. Discharge per medicine. Follow up in the GI office outpatient setting for further evaluation. Assessment and plan a care discussed with Dr. Steinberg
--- NOTE | 2018-12-12 16:58 | P.PN ---
Subjective Progress Note Date: 12/12/18 This 43-year-old female admitted with acute abdominal pain, diarrhea, pancreatitis, in a patient with history of pancreatitis, IBS and multiple other medical issues. Reports improving mild epigastric pain that radiates to left flank .Maintained on low fat diet. Tolerating clear liquid diet, reports nausea earlier, but now feeling hungry. Pancreatic enzymes normalized. Diarrhea subsided.Diet advanced to low-fat diet as per GI. Objective - Vital Signs Vital signs: Vital Signs Temp 98.5 F 12/12/18 15:00 Pulse 82 12/12/18 15:00 Resp 16 12/12/18 15:00 BP 130/75 12/12/18 15:00 Pulse Ox 94 L 12/12/18 15:00 Intake & Output 12/11/18 12/12/18 12/12/18 18:59 06:59 18:59 Intake Total 1600 720 720 Balance 1600 720 720 Intake: Intake, IV Titration 1120 Amount Sodium Chloride 0.9% 1, 1120 000 ml @ 140 mls/hr IV . Q7H9M [facility] Rx#:[id number] Oral 480 720 720 Other: Voiding Method Toilet # Voids 3 1 1 - Exam PHYSICAL EXAM: VITAL SIGNS: As above GENERAL: sitting up in bed, no acute distress HEENT: Conjunctivae normal. eyes normal. Oral mucosa moist. NECK: No JVD. No thyroid enlargement. No LNs CARDIOVASCULAR: S1, S2 regular. No murmur RESPIRATION: Breath sounds diminished in the bases. No rhonchi or crackles. No bronchial breathing. ABDOMEN: Soft, minimal diffuse tenderness . No guarding. no masses palpable. Bowel sounds heard. LEGS: No edema. no swelling PSYCHIATRY: Alert and oriented -3, mood and affect normal. NERVOUS SYSTEM: Cranial N 2-12 grossly normal. Moves all 4 limbs. No focal deficits. Skin: no lesions, no rash - Labs CBC & Chem 7: 12/12/18 08:11 12/12/18 08:11 Labs: Abnormal Lab Results - Last 24 Hours (Table) 12/12/18 12/12/18 Range/Units 08:11 08:11 MCHC 30.9 L (31.0-37.0) g/dL Glucose 130 H (74-99) mg/dL Triglycerides 164 H (<150) mg/dL Assessment and Plan Assessment: -Acute abdominal and left flank pain, CT of abdomen and pelvis reported normal pancreas, kidneys unremarkable - chronic pancreatitis -COPD -Fibromyalgia -Nicotine dependence Plan: Continue on current medication regime ,monitoring and symptomatic treat ment. Diet recently advanced to soft foods. Reports minimal pain; will discontinue IV pain medication and resume patient's home pain management regimen. Monitor overnight. discharge planning in progress for tomorrow. The impression and plan of care has been dictated as directed. : I performed a history and examination of this patient, discussed the same with the dictator. I agree with the dictator's note ,documented as a scribe. Any additional findings or plans will be noted.
[2018-12-12 19:09] VITALS: TEMP 98.2
[2018-12-12] MEDS: oxyCODONE-APAP 10-325MG 1 EACH TAB PO SCH ×2 (19:10→23:06)
[2018-12-12] MEDS ORDERED: ZOLPIDEM 10 MG TAB PO SCH (21:15)
[2018-12-12] MEDS: ALPRAZolam 0.5 MG TAB PO SCH (22:00)
[2018-12-13] MEDS: oxyCODONE-APAP 10-325MG 1 EACH TAB PO SCH ×4 (04:50→16:56)
[2018-12-13] MEDS: SODIUM CHLORIDE 0.9% 1,000 ML IV SCH (07:22)
[2018-12-13 09:38] VITALS: RESP 16
[2018-12-13] MEDS: CITALOPRAM HYDROBROMIDE 20 MG TAB PO SCH (10:14)
[2018-12-13] MEDS: ALPRAZolam 0.5 MG TAB PO SCH ×2 (10:14→16:56)
[2018-12-13] MEDS: POTASSIUM CHLORIDE 8 MEQ PO SCH (10:15)
[2018-12-13] MEDS: SPIRONOLACTONE 25 MG TAB PO SCH (10:15)
--- NOTE | 2018-12-13 11:20 | P.PN ---
Subjective Progress Note Date: 12/13/18 CHIEF COMPLAINT: abdominal pain HISTORY OF PRESENT ILLNESS: Patient examined at the bedside this morning. Patient reports continued abdominal pain this morning. She states her diet was advanced yesterday and after dinner she began having severe abdominal pain. She reports only taking a few bites of her breakfast this morning. She is requesting to stay on liquid diet for today. PHYSICAL EXAM: VITAL SIGNS: Reviewed. GENERAL: Well-developed in no acute distress. HEENT: No sclera icterus. Extraocular movements grossly intact. Moist buccal mucosa. Head is atraumatic, normocephalic. ABDOMEN: Soft. Nondistended. Tenderness near epigastric region. NEUROLOGIC: Alert and oriented. Cranial nerves II through XII grossly intact. ASSESSMENT: 1. Pancreatitis PLAN: 1. Diet as tolerated. 2. No surgical intervention recommended at this time Nurse practitioner note has been reviewed by physician. Signing provider agrees with the documented findings, assessment, and plan of care. Objective - Vital Signs Vital signs: Vital Signs Temp 98.2 F 12/13/18 07:43 Pulse 84 12/13/18 07:43 Resp 16 12/13/18 07:43 BP 123/84 12/13/18 07:43 Pulse Ox 99 12/13/18 07:43 Intake & Output 12/12/18 12/13/18 12/13/18 18:59 06:59 18:59 Intake Total 960 1120 Balance 960 1120 Intake: Intake, IV Titration 1120 Amount Sodium Chloride 0.9% 1, 1120 000 ml @ 140 mls/hr IV . Q7H9M [facility] Rx#:[id number] Oral 960 Other: Voiding Method Toilet Toilet Toilet # Voids 1 1 - Labs CBC & Chem 7: 12/12/18 08:11 12/12/18 08:11
[2018-12-13 12:32] LABS: IgG Subclass 4 57.3 mg/dL (3.0-175.0)
[2018-12-13 12:34] LABS: IgG Subclass 3 22.7 mg/dL (11.0-85.0)
[2018-12-13] MEDS ORDERED: HYDROmorphone 1 MG/ML 1 ML SYRINGE IVP STA (14:48)
[2018-12-13 15:17] VITALS: BP 154/92; PULSE 89
--- NOTE | 2018-12-15 11:00 | P.DS ---
Providers Date of admission: 12/10/18 21:47 Expected date of discharge: 12/13/18 Attending physician: Daren Hendricks Consults: 12/10/18 23:36 Consult Physician Routine Consulting Provider: Patrick Paige Consult Reason/Comments: abdomen pain Do you want consulting provider notified?: Yes Primary care physician: Stated None Daren Hendricks [facility] Course: Final Diagnoses: -Acute abdominal and left flank pain, CT of abdomen and pelvis reported normal pancreas, kidneys unremarkable - chronic pancreatitis -COPD -Fibromyalgia -Nicotine dependence -Pain contract with Dr. Aguilar [facility] course:This 43-year-old female admitted with acute abdominal pain, diarrhea, pancreatitis, in a patient with history of pancreatitis, IBS and multiple other medical issues. Reports improving mild epigastric pain that radiates to left flank .Maintained on low fat diet. Tolerating clear liquid diet, reports nausea earlier, but now feeling hungry. Pancreatic enzymes normalized. Diarrhea subsided.Diet advanced to low-fat diet as per GI. Significant clinical improvement. Cleared by GI, surgery for discharge. Patient is being discharged home in a stable condition with guarded prognosis. EXAM: GENERAL: Alert and oriented 3, no acute distress CARDIOVASCULAR: S1, S2 regular. No murmur RESPIRATION: Breath sounds diminished in the bases. No rhonchi or crackles. ABDOMEN: Soft, minimal diffuse tenderness . No guarding. no masses palpable. Bowel sounds heard. NERVOUS SYSTEM: No focal deficits. The impression and plan of care has been dictated as directed. : I performed a history and examination of this patient, discussed the same with the dictator. I agree with the dictator's note ,documented as a scribe. Any additional findings or plans will be noted. Time taken: 35 minutes Patient Condition at Discharge: Stable Plan - Discharge Summary Discharge Rx Participant: Yes New Discharge Prescriptions: New Zolpidem [Ambien] 10 mg PO HS #3 tab ALPRAZolam [Xanax] 0.5 mg PO TID #9 tab Continue Potassium Chloride [Klor-Con 8] 8 meq PO DAILY Ipratropium/Albuterol Sulfate [Combivent Respimat Inhaler] 1 puff INHALATION RT-QID PRN PRN Reason: Shortness Of Breath Spironolactone [Aldactone] 25 mg PO DAILY oxyCODONE HCL/ACETAMINOPHEN [Percocet 10-325 mg] 1 tab PO Q4HR diphenhydrAMINE [Benadryl] 50 mg PO QID Ipratropium-Albuterol Nebulize [Duoneb 0.5 mg-3 mg/3 ml Soln] 3 ml INHALATION RT-BID PRN PRN Reason: Shortness Of Breath Albuterol Inhaler [Ventolin Hfa Inhaler] 1 - 2 puff INHALATION RT-Q6H PRN PRN Reason: Shortness Of Breath Citalopram Hydrobromide [CeleXA] 60 mg PO DAILY #9 tablet Discontinued ALPRAZolam [Xanax] 0.5 mg PO TID Zolpidem Tartrate [Ambien] 10 mg PO HS Discharge Medication List Potassium Chloride [Klor-Con 8] 8 meq PO DAILY 01/06/14 [History] Ipratropium/Albuterol Sulfate [Combivent Respimat Inhaler] 1 puff INHALATION RT- QID PRN 07/26/15 [History] Spironolactone [Aldactone] 25 mg PO DAILY 02/05/17 [History] diphenhydrAMINE [Benadryl] 50 mg PO QID 07/15/18 [History] oxyCODONE HCL/ACETAMINOPHEN [Percocet 10-325 mg] 1 tab PO Q4HR 07/15/18 [History] Albuterol Inhaler [Ventolin Hfa Inhaler] 1 - 2 puff INHALATION RT-Q6H PRN 12/10/18 [History] Ipratropium-Albuterol Nebulize [Duoneb 0.5 mg-3 mg/3 ml Soln] 3 ml INHALATION RT-BID PRN 12/10/18 [History] ALPRAZolam [Xanax] 0.5 mg PO TID #9 tab 12/13/18 [Rx] Citalopram Hydrobromide [CeleXA] 60 mg PO DAILY #9 tablet 12/13/18 [Rx] Zolpidem [Ambien] 10 mg PO HS #3 tab 12/13/18 [Rx] Follow up Appointment(s)/Referral(s): Daren Hendricks MD [STAFF PHYSICIAN] - 12/14/18 9:00 am [facility], [NON-STAFF] - George Aguilar MD [STAFF PHYSICIAN] - 1 Week (pain mgmt. Please call for follow up) Shawn Steinberg MD [STAFF PHYSICIAN] - 01/05/19 1:00 pm Patient Instructions/Handouts: Pancreatitis (DC) Activity/Diet/Wound Care/Special Instructions: Patient has a pain contract with Dr. Aguilar please call for follow up Discharge Disposition: HOME WITH HOME HEALTH SERVICES
== END 2018-12-13 17:58 | disposition home health service (06) | DRG 439 ==
LOC: EC 17:05 → 4SSUR 21:47
PROVIDERS: ADMIT Family Medicine; ATTEND Family Medicine
DX: K85.90 Acute pancreatitis without necrosis or infection, unspecified (principal); Z68.41 Body mass index [BMI] 40.0-44.9, adult; E66.9 Obesity, unspecified; I50.9 Heart failure, unspecified; K86.1 Other chronic pancreatitis; K86.81 Exocrine pancreatic insufficiency; K86.89 Other specified diseases of pancreas; J44.9 Chronic obstructive pulmonary disease, unspecified; G89.4 Chronic pain syndrome; M79.7 Fibromyalgia; K58.0 Irritable bowel syndrome with diarrhea; G40.909 Epilepsy, unspecified, not intractable, without status epilepticus; G43.909 Migraine, unspecified, not intractable, without status migrainosus; R73.9 Hyperglycemia, unspecified; F31.9 Bipolar disorder, unspecified; F41.9 Anxiety disorder, unspecified; F90.9 Attention-deficit hyperactivity disorder, unspecified type; F43.10 Post-traumatic stress disorder, unspecified; F60.3 Borderline personality disorder; M06.9 Rheumatoid arthritis, unspecified; F17.210 Nicotine dependence, cigarettes, uncomplicated; Z71.6 Tobacco abuse counseling; Z79.891 Long term (current) use of opiate analgesic; Z79.51 Long term (current) use of inhaled steroids; Z79.899 Other long term (current) drug therapy; Z90.710 Acquired absence of both cervix and uterus; Z90.49 Acquired absence of other specified parts of digestive tract; Z87.442 Personal history of urinary calculi; Z86.14 Personal history of Methicillin resistant Staphylococcus aureus infection; Z98.891 History of uterine scar from previous surgery; Z87.01 Personal history of pneumonia (recurrent); Z86.73 Personal history of transient ischemic attack (TIA), and cerebral infarction without residual deficits; Z98.51 Tubal ligation status; Z88.1 Allergy status to other antibiotic agents; Z91.041 Radiographic dye allergy status; Z88.5 Allergy status to narcotic agent; Z88.0 Allergy status to penicillin; Z88.2 Allergy status to sulfonamides; Z91.013 Allergy to seafood; Z91.048 Other nonmedicinal substance allergy status
CPT/HCPCS: 36415; 71046; 74177; 80053; 81001; 82787; 83605; 83690; 84478; 84484; 85025; 86038; 93005; 96361; 96374; 96375; 96376; 99285

== ENCOUNTER 2018-12-31 11:17 | Emergency (ER) | payer MEDICARE ==
[2018-12-31] MEDS ORDERED: ONDANSETRON 4 MG/2 ML VIAL IVP STA (11:34)
[2018-12-31] MEDS ORDERED: SODIUM CHLORIDE 0.9% 1,000 ML IV ONE (11:34)
--- NOTE | 2018-12-31 11:38 | ED ---
General Adult HPI - General Chief complaint: Nausea/Vomiting/Diarrhea Stated complaint: Diarrhea/vomiting Time Seen by Provider: 12/31/18 11:25 Source: patient Mode of arrival: ambulatory Limitations: no limitations - History of Present Illness Initial comments: Patient is a 43-year-old female presents with chief complaint of nausea, vomiting, and diarrhea. This going on for about 3 days. The patient also states that she feels like her right ear is plugged. She cannot identify an inciting incident. There are no aggravating or alleviating factors. The patient says she has been vomiting every few hours, has had about 4-5 episodes of diarrhea per day. She has not tried taking any medications for symptom relief. Patient states she has been febrile but states that her highest temperature she measured was 99. - Related Data Home Medications Medication Instructions Recorded Confirmed Potassium Chloride [Klor-Con 8] 8 meq PO DAILY 01/06/14 12/31/18 Ipratropium/Albuterol Sulfate 1 puff INHALATION RT-QID PRN 07/26/15 12/31/18 [Combivent Respimat Inhaler] Spironolactone [Aldactone] 25 mg PO DAILY 02/05/17 12/31/18 Albuterol Inhaler [Ventolin Hfa 1 - 2 puff INHALATION RT-Q6H PRN 12/10/18 Inhaler] Ipratropium-Albuterol Nebulize 3 ml INHALATION RT-BID PRN 12/10/18 12/31/18 [Duoneb 0.5 mg-3 mg/3 ml Soln] diphenhydrAMINE [Benadryl] 25 mg PO TID 12/31/18 12/31/18 oxyCODONE-APAP 10-325MG [Percocet 1 tab PO QID 12/31/18 12/31/18 10-325 mg] Previous Rx's Medication Instructions Recorded ALPRAZolam [Xanax] 0.5 mg PO TID #9 tab 12/13/18 Citalopram Hydrobromide [CeleXA] 60 mg PO DAILY #9 tablet 12/13/18 Zolpidem [Ambien] 10 mg PO HS #3 tab 12/13/18 Nitrofurantoin Monohyd/M-Cryst 100 mg PO Q12HR #9 cap 12/31/18 [Macrobid] Ondansetron [Zofran ODT] 4 mg PO Q8HR PRN #12 tab 12/31/18 Allergies Allergy/AdvReac Type Severity Reaction Status Date / Time adhesive Allergy Rash/Hives Verified 12/31/18 12:49 amoxicillin Allergy Anaphylaxis Verified 12/31/18 12:49 azithromycin [From Zithromax] Allergy Anaphylaxis Verified 12/31/18 12:49 cephalexin monohydrate Allergy Anaphylaxis Verified 12/31/18 12:49 [From Keflex] ciprofloxacin Allergy Anaphylaxis Verified 12/31/18 12:49 clindamycin Allergy Anaphylaxis Verified 12/31/18 12:49 Iodinated Contrast- Oral and Allergy Swelling Verified 12/31/18 12:49 IV Dye levofloxacin [From Levaquin] Allergy Rash/Hives Verified 12/31/18 12:49 NSAIDS (Non-Steroidal Allergy Rash/Hives Verified 12/31/18 12:49 Anti-Inflamma shellfish derived Allergy Anaphylaxis Verified 12/31/18 12:49 Sulfa (Sulfonamide Allergy Anaphylaxis Verified 12/31/18 12:49 Antibiotics) sulfamethoxazole Allergy Anaphylaxis Verified 12/31/18 12:49 [From Bactrim] tramadol Allergy Unknown Verified 12/31/18 12:49 trimethoprim [From Bactrim] Allergy Anaphylaxis Verified 12/31/18 12:49 Review of Systems ROS Statement: Those systems with pertinent positive or pertinent negative responses have been documented in the HPI. ROS Other: All systems not noted in ROS Statement are negative. 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 IBS, cellulitis of the chin History of Any Multi-Drug Resistant Organisms: MRSA Date of last positivie culture/infection: 07/2016 MDRO Source:: [facility] Past Surgical History: Section, Cholecystectomy, Hysterectomy, Tubal Ligation Additional Past Surgical History / Comment(s): oral surgery . Pancreas biopsy May 2015. Past Anesthesia/Blood Transfusion Reactions: No Reported Reaction Past Psychological History: ADD/ADHD, Anxiety, Bipolar, Depression Smoking Status: Current every day smoker Past Alcohol Use History: None Reported Past Drug Use History: Marijuana - Past Family History Father Family Medical History: No Reported History Additional Family Medical History / Comment(s): ADOPTED General Exam Limitations: no limitations General appearance: alert, in no apparent distress Head exam: Present: atraumatic, normocephalic Eye exam: Present: normal appearance, PERRL, EOMI ENT exam: Present: mucous membranes moist, TM's normal bilaterally Neck exam: Present: normal inspection Respiratory exam: Present: wheezes. Absent: respiratory distress Cardiovascular Exam: Present: regular rate, normal rhythm GI/Abdominal exam: Present: soft, tenderness (Mild tenderness in all quadrants). Absent: distended Rectal exam: Present: deferred Extremities exam: Present: normal inspection Back exam: Present: normal inspection Neurological exam: Present: alert, oriented X3 Psychiatric exam: Present: normal affect, normal mood Skin exam: Present: warm, dry, intact Course Vital Signs 12/31/18 11:19 Temperature 99.2 F Pulse Rate 88 Respiratory 16 Rate Blood Pressure 159/88 O2 Sat by Pulse 95 Oximetry Medical Decision Making - Medical Decision Making Patient presents with chief complaint of nausea, vomiting, and diarrhea. On initial evaluation, L or stable, patient is in no acute distress. Will be evaluated with basic labs including liver profile and lipase, urinalysis signs. Patient given Zofran and IV fluids. Suspect viral etiology of patient's symptoms 12:50 PM Lab evaluation of this patient shows evidence of a urinary tract infection. Patient given her first dose of Macrobid in the emergency department. Currently pending electrolyte panel, patient otherwise stable and comfortable. 1:12 PM Evaluation this patient is unremarkable. At this time, patient stable for discharge. She was instructed to follow up with primary care 1-2 days, return to ED if symptoms worsen or change. She was prescribed Macrobid, and Zofran. - Lab Data Result diagrams: 12/31/18 12:25 12/31/18 12:25 Lab Results 12/31/18 12/31/18 12/31/18 Range/Units 12:06 12:25 12:25 WBC 8.7 (3.8-10.6) k/uL RBC 5.41 H (3.80-5.40) m/uL Hgb 14.4 (11.4-16.0) gm/dL Hct 44.9 (34.0-46.0) % MCV 82.9 (80.0-100.0) fL MCH 26.7 (25.0-35.0) pg MCHC 32.2 (31.0-37.0) g/dL RDW 13.8 (11.5-15.5) % Plt Count 366 (150-450) k/uL Neutrophils % 72 % Lymphocytes % 22 % Monocytes % 3 % Eosinophils % 1 % Basophils % 0 % Neutrophils # 6.3 (1.3-7.7) k/uL Lymphocytes # 1.9 (1.0-4.8) k/uL Monocytes # 0.3 (0-1.0) k/uL Eosinophils # 0.1 (0-0.7) k/uL Basophils # 0.0 (0-0.2) k/uL Sodium 141 (137-145) mmol/L Potassium 4.0 (3.5-5.1) mmol/L Chloride 104 (98-107) mmol/L Carbon Dioxide 28 (22-30) mmol/L Anion Gap 9 mmol/L BUN 9 (7-17) mg/dL Creatinine 0.64 (0.52-1.04) mg/dL Est GFR (CKD-EPI)AfAm >90 (>60 ml/min/1.73 sqM) Est GFR (CKD-EPI)NonAf >90 (>60 ml/min/1.73 sqM) Glucose 126 H (74-99) mg/dL Calcium 9.0 (8.4-10.2) mg/dL Total Bilirubin 0.5 (0.2-1.3) mg/dL AST 19 (14-36) U/L ALT 17 (9-52) U/L Alkaline Phosphatase 102 (38-126) U/L Total Protein 7.3 (6.3-8.2) g/dL Albumin 4.4 (3.5-5.0) g/dL Lipase 43 (23-300) U/L Urine Color Yellow Urine Appearance Clear (Clear) Urine pH 7.5 (5.0-8.0) Ur Specific Quentin 1.028 (1.001-1.035) Urine Protein 2+ H (Negative) Urine Glucose (UA) Negative (Negative) Urine Ketones 1+ H (Negative) Urine Blood Small H (Negative) Urine Nitrite Negative (Negative) Urine Bilirubin Negative (Negative) Urine Urobilinogen 3.0 (<2.0) mg/dL Ur Leukocyte Esterase Negative (Negative) Urine RBC 23 H (0-5) /hpf Urine WBC 1 (0-5) /hpf Ur Squamous Epith Cells 5 H (0-4) /hpf Urine Mucus Few H (None) /hpf Disposition Clinical Impression: UTI (urinary tract infection) Disposition: HOME SELF-CARE Condition: Good Instructions (If sedation given, give patient instructions): Urinary Tract Infection in Women (ED) Is patient prescribed a controlled substance at d/c from ED?: No Referrals: None,Stated [Primary Care Provider] - 1-2 days Teresa Olivo MD [STAFF PHYSICIAN] - 1-2 days
[2018-12-31 12:24] LABS: Appearance,Urine Clear (Clear); Bilirubin,Urine Negative (Negative); Blood,Urine Small (Negative); Color,Urine Yellow; Glucose,Urine (UA) Negative (Negative); Ketones,Urine 1+ (Negative); Leukocyte Esterase,Urine Negative (Negative); Mucus,Urine Few /hpf; Nitrite,Urine Negative (Negative); PH, Urine 7.5 (5.0-8.0); Protein,Urine 2+ (Negative); RBC,Urine 23 /hpf (0-5); Specific Gravity,Urine 1.028 (1.001-1.035); Squamous Epithelial Cell,Urine 5 /hpf (0-4); WBC,Urine 1 /hpf (0-5)
[2018-12-31 12:30] LABS: Basophils % (A) 0 %; Eosinophils # (A) 0.1 k/uL (0-0.7); Eosinophils % (A) 1 %; HCT 44.9 % (34.0-46.0); HGB 14.4 gm/dL (11.4-16.0); Lymphocytes # (A) 1.9 k/uL (1.0-4.8); Lymphocytes % (A) 22 %; MCH 26.7 pg (25.0-35.0); MCHC 32.2 g/dL (31.0-37.0); MCV 82.9 fL (80.0-100.0); Mean Platelet Volume 6.3; Monocytes # (A) 0.3 k/uL (0-1.0); Monocytes % (A) 3 %; Neutrophils # (A) 6.3 k/uL (1.3-7.7); Neutrophils % (A) 72 %; Platelet Count 366 k/uL (150-450); RBC 5.41 m/uL (3.80-5.40); RDW 13.8 % (11.5-15.5); WBC 8.7 k/uL (3.8-10.6)
[2018-12-31 12:38] LABS: ALT 17 U/L (9-52); AST 19 U/L (14-36); African American GFR (CKD) >90 (>60 ml/min/1.73 sqM); Albumin 4.4 g/dL (3.5-5.0); Alkaline Phosphatase 102 U/L (38-126); Anion Gap 9 mmol/L; Blood Urea Nitrogen 9 mg/dL (7-17); Carbon Dioxide 28 mmol/L (22-30); Chloride 104 mmol/L (98-107); Glucose 126 mg/dL (74-99); Lipase 43 U/L (23-300); Sodium 141 mmol/L (137-145); Total Bilirubin 0.5 mg/dL (0.2-1.3); Total Protein 7.3 g/dL (6.3-8.2)
[2018-12-31] MEDS ORDERED: NITROFURANTOIN MONOHYD/M-CRYST 100 MG CAP PO STA (12:39)
[2018-12-31] MEDS ORDERED: diphenhydrAMINE 25 MG CAP PO STA (12:42)
[2018-12-31 13:31] VITALS: RESP 18; TEMP 98.7
[2018-12-31 13:56] VITALS: BP 174/95; PULSE 87
== END 2018-12-31 13:57 | disposition home or self-care (01) ==
LOC: EC 11:17
DX: N39.0 Urinary tract infection, site not specified (principal); J44.9 Chronic obstructive pulmonary disease, unspecified; I50.9 Heart failure, unspecified; F17.200 Nicotine dependence, unspecified, uncomplicated; Z79.899 Other long term (current) drug therapy; Z88.0 Allergy status to penicillin; Z88.1 Allergy status to other antibiotic agents; Z91.048 Other nonmedicinal substance allergy status; Z91.041 Radiographic dye allergy status; Z88.2 Allergy status to sulfonamides; Z91.013 Allergy to seafood; Z88.6 Allergy status to analgesic agent; Z88.5 Allergy status to narcotic agent; Z86.73 Personal history of transient ischemic attack (TIA), and cerebral infarction without residual deficits
CPT/HCPCS: 36415; 80053; 83690; 85025; 81001; 99284; 96374; 96361; J2405

== ENCOUNTER 2019-01-10 23:35 | Emergency (ER) | payer MEDICARE ==
[2019-01-11] MEDS ORDERED: ONDANSETRON 4 MG/2 ML VIAL IVP STA (01:21)
[2019-01-11] MEDS ORDERED: SODIUM CHLORIDE 0.9% 1,000 ML IV STA (01:21)
[2019-01-11] MEDS ORDERED: SODIUM CHLORIDE 0.9% 500 ML 500 ML IV STA (01:21)
[2019-01-11] MEDS ORDERED: HYDROmorphone 1 MG/ML 1 ML SYRINGE IVP STA (01:21)
[2019-01-11 01:41] LABS: Basophils # (A) 0.1 k/uL (0-0.2); Basophils % (A) 1 %; Eosinophils # (A) 0.3 k/uL (0-0.7); Eosinophils % (A) 3 %; HCT 49.5 % (34.0-46.0); HGB 15.4 gm/dL (11.4-16.0); Lymphocytes # (A) 3.5 k/uL (1.0-4.8); Lymphocytes % (A) 37 %; MCH 26.5 pg (25.0-35.0); MCHC 31.1 g/dL (31.0-37.0); MCV 85.2 fL (80.0-100.0); Mean Platelet Volume 6.6; Monocytes # (A) 0.5 k/uL (0-1.0); Monocytes % (A) 6 %; Neutrophils # (A) 4.9 k/uL (1.3-7.7); Neutrophils % (A) 52 %; Platelet Count 393 k/uL (150-450); RBC 5.81 m/uL (3.80-5.40); RDW 14.3 % (11.5-15.5); WBC 9.5 k/uL (3.8-10.6)
[2019-01-11 02:01] LABS: ALT 20 U/L (9-52); AST 30 U/L (14-36); African American GFR (CKD) >90 (>60 ml/min/1.73 sqM); Albumin 4.8 g/dL (3.5-5.0); Alkaline Phosphatase 102 U/L (38-126); Amylase 67 U/L (30-110); Anion Gap 12 mmol/L; Blood Urea Nitrogen 19 mg/dL (7-17); Calcium 9.6 mg/dL (8.4-10.2); Carbon Dioxide 27 mmol/L (22-30); Chloride 103 mmol/L (98-107); Glucose 119 mg/dL (74-99); Lipase 119 U/L (23-300); Potassium 4.4 mmol/L (3.5-5.1); Sodium 142 mmol/L (137-145); Total Bilirubin 0.3 mg/dL (0.2-1.3); Total Protein 7.9 g/dL (6.3-8.2)
--- NOTE | 2019-01-11 02:18 | XR ---
EXAM: XR Abdomen, 1 View CLINICAL HISTORY: ITS.REASON XR Reason: abdominal pain TECHNIQUE: Frontal upright view of the abdomen/pelvis. COMPARISON: CT abdomen-pelvis 12/10/2018 FINDINGS: Intraperitoneal space: No evidence of bowel obstruction or pneumoperitoneum. Gastrointestinal tract: Bowel gas pattern is unremarkable. Organs: Surgical clips right upper quadrant compatible with previous cholecystectomy. No radiopaque renal calculi. Bones/joints: Imaged bony structures are unremarkable. Left lower pelvic calcifications suggesting calcified pelvic phleboliths. IMPRESSION: No radiographic evidence of acute abdominal disease or bowel obstruction.
--- NOTE | 2019-01-11 02:26 | ED ---
Abdominal Pain HPI - General Chief Complaint: Abdominal Pain Stated Complaint: Abdominal Swelling Time Seen by Provider: 01/11/19 00:56 Source: patient Mode of arrival: ambulatory - History of Present Illness Initial Comments: 44-year-old female patient presents to the emergency department today for evaluation of left upper abdominal pain. Patient states that this started earli er this morning has been worsening since. Patient's that she has been nauseated but has not vomited. Patient states she did try her home Percocet and Zofran for symptom relief but it did not help. Patient states she does have a history of pancreatitis and this feels similar. States she has had and hysterectomy but no other abdominal surgeries. States that she is having some diarrhea. She denies any hematochezia or melena. Denies any fever or chills with this. Denies any hematuria, dysuria, urinary frequency, urinary urgency. Denies any radiation of the pain through to her back. Patient denies any recent rash, shortness breath, chest pain, numbness, tingling, dizziness, weakness, headache, visual changes, or any other complaints. - Related Data Home Medications Medication Instructions Recorded Confirmed Potassium Chloride [Klor-Con 8] 8 meq PO DAILY 01/06/14 12/31/18 Ipratropium/Albuterol Sulfate 1 puff INHALATION RT-QID PRN 07/26/15 12/31/18 [Combivent Respimat Inhaler] Spironolactone [Aldactone] 25 mg PO DAILY 02/05/17 12/31/18 Albuterol Inhaler [Ventolin Hfa 1 - 2 puff INHALATION RT-Q6H PRN 12/10/18 12/31/18 Inhaler] Ipratropium-Albuterol Nebulize 3 ml INHALATION RT-BID PRN 12/10/18 12/31/18 [Duoneb 0.5 mg-3 mg/3 ml Soln] diphenhydrAMINE [Benadryl] 25 mg PO TID 12/31/18 12/31/18 oxyCODONE-APAP 10-325MG [Percocet 1 tab PO QID 12/31/18 12/31/18 10-325 mg] Previous Rx's Medication Instructions Recorded ALPRAZolam [Xanax] 0.5 mg PO TID #9 tab 12/13/18 Citalopram Hydrobromide [CeleXA] 60 mg PO DAILY #9 tablet 12/13/18 Zolpidem [Ambien] 10 mg PO HS #3 tab 12/13/18 Nitrofurantoin Monohyd/M-Cryst 100 mg PO Q12HR #9 cap 12/31/18 [Macrobid] Ondansetron [Zofran ODT] 4 mg PO Q8HR PRN #12 tab 12/31/18 Allergies Allergy/AdvReac Type Severity Reaction Status Date / Time adhesive Allergy Rash/Hives Verified 12/31/18 12:49 amoxicillin Allergy Anaphylaxis Verified 12/31/18 12:49 azithromycin [From Zithromax] Allergy Anaphylaxis Verified 12/31/18 12:49 cephalexin monohydrate Allergy Anaphylaxis Verified 12/31/18 12:49 [From Keflex] ciprofloxacin Allergy Anaphylaxis Verified 12/31/18 12:49 clindamycin Allergy Anaphylaxis Verified 12/31/18 12:49 Iodinated Contrast- Oral and Allergy Swelling Verified 12/31/18 12:49 IV Dye levofloxacin [From Levaquin] Allergy Rash/Hives Verified 12/31/18 12:49 NSAIDS (Non-Steroidal Allergy Rash/Hives Verified 12/31/18 12:49 Anti-Inflamma shellfish derived Allergy Anaphylaxis Verified 12/31/18 12:49 Sulfa (Sulfonamide Allergy Anaphylaxis Verified 12/31/18 12:49 Antibiotics) sulfamethoxazole Allergy Anaphylaxis Verified 12/31/18 12:49 [From Bactrim] tramadol Allergy Unknown Verified 12/31/18 12:49 trimethoprim [From Bactrim] Allergy Anaphylaxis Verified 12/31/18 12:49 Review of Systems ROS Statement: Those systems with pertinent positive or pertinent negative responses have been documented in the HPI. ROS Other: All systems not noted in ROS Statement are negative. 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 IBS, cellulitis of the chin History of Any Multi-Drug Resistant Organisms: MRSA Date of last positivie culture/infection: 07/2016 MDRO Source:: chin Past Surgical History: Section, Cholecystectomy, Hysterectomy, Tubal Ligation Additional Past Surgical History / Comment(s): oral surgery . Pancreas biopsy May 2015. Past Anesthesia/Blood Transfusion Reactions: No Reported Reaction Past Psychological History: ADD/ADHD, Anxiety, Bipolar, Depression Smoking Status: Current every day smoker Past Alcohol Use History: None Reported Past Drug Use History: Marijuana - Past Family History Father Family Medical History: No Reported History Additional Family Medical History / Comment(s): ADOPTED General Exam General appearance: alert, in no apparent distress, other (Physical well-develo ped, well-nourished adult female patient in no acute distress. Vital signs upon presentation are temperature 98.4F, pulse 104, respirations 16, blood pressure 202/119, pulse ox 96% on room air.) Eye exam: Present: normal appearance, PERRL, EOMI. Absent: scleral icterus, c onjunctival injection, periorbital swelling ENT exam: Present: normal exam, normal oropharynx, mucous membranes moist Respiratory exam: Present: normal lung sounds bilaterally. Absent: respiratory distress, wheezes, rales, rhonchi, stridor Cardiovascular Exam: Present: regular rate, normal rhythm, normal heart sounds. Absent: systolic murmur, diastolic murmur, rubs, gallop, clicks GI/Abdominal exam: Present: soft, normal bowel sounds. Absent: distended, tenderness, guarding, rebound, rigid Neurological exam: Present: alert, oriented X3, CN II-XII intact Psychiatric exam: Present: normal affect, normal mood Skin exam: Present: warm, dry, intact, normal color. Absent: rash Course Vital Signs 01/10/19 01/11/19 23:44 02:38 Temperature 98.4 F Pulse Rate 104 H 95 Respiratory 16 18 Rate Blood Pressure 202/119 177/97 O2 Sat by Pulse 96 96 Oximetry Medical Decision Making - Medical Decision Making 44-year-old female patient presents to the emergency department today for evaluation of left upper quadrant abdominal pain. Physical examination did reveal some left upper quadrant tenderness. No CVA tenderness. She is afebrile. Labs reviewed and are unremarkable. Lipase is normal. I did discuss findings and results with the patient. She'll be discharged home at this time to follow-up with her primary care physician for further evaluation of her abdominal pain. Return parameters were discussed in detail. She verbalizes understanding and agrees with this plan. - Lab Data Result diagrams: 01/11/19 01:05 01/11/19 01:05 Lab Results 01/11/19 01/11/19 01/11/19 Range/Units 01:05 01:05 02:00 WBC 9.5 (3.8-10.6) k/uL RBC 5.81 H (3.80-5.40) m/uL Hgb 15.4 (11.4-16.0) gm/dL Hct 49.5 H (34.0-46.0) % MCV 85.2 (80.0-100.0) fL MCH 26.5 (25.0-35.0) pg MCHC 31.1 (31.0-37.0) g/dL RDW 14.3 (11.5-15.5) % Plt Count 393 (150-450) k/uL Neutrophils % 52 % Lymphocytes % 37 % Monocytes % 6 % Eosinophils % 3 % Basophils % 1 % Neutrophils # 4.9 (1.3-7.7) k/uL Lymphocytes # 3.5 (1.0-4.8) k/uL Monocytes # 0.5 (0-1.0) k/uL Eosinophils # 0.3 (0-0.7) k/uL Basophils # 0.1 (0-0.2) k/uL Sodium 142 (137-145) mmol/L Potassium 4.4 (3.5-5.1) mmol/L Chloride 103 (98-107) mmol/L Carbon Dioxide 27 (22-30) mmol/L Anion Gap 12 mmol/L BUN 19 H (7-17) mg/dL Creatinine 0.69 (0.52-1.04) mg/dL Est GFR (CKD-EPI)AfAm >90 (>60 ml/min/1.73 sqM) Est GFR (CKD-EPI)NonAf >90 (>60 ml/min/1.73 sqM) Glucose 119 H (74-99) mg/dL Calcium 9.6 (8.4-10.2) mg/dL Total Bilirubin 0.3 (0.2-1.3) mg/dL AST 30 (14-36) U/L ALT 20 (9-52) U/L Alkaline Phosphatase 102 (38-126) U/L Total Protein 7.9 (6.3-8.2) g/dL Albumin 4.8 (3.5-5.0) g/dL Amylase 67 (30-110) U/L Lipase 119 (23-300) U/L Urine Color Yellow Urine Appearance Cloudy H (Clear) Urine pH 5.5 (5.0-8.0) Ur Specific [place] 1.035 (1.001-1.035) Urine Protein 1+ H (Negative) Urine Glucose (UA) Negative (Negative) Urine Ketones Trace H (Negative) Urine Blood Small H (Negative) Urine Nitrite Negative (Negative) Urine Bilirubin Negative (Negative) Urine Urobilinogen 3.0 (<2.0) mg/dL Ur Leukocyte Esterase Negative (Negative) Urine RBC 7 H (0-5) /hpf Urine WBC 8 H (0-5) /hpf Ur Squamous Epith Cells 10 H (0-4) /hpf Amorphous Sediment Rare H (None) /hpf Urine Bacteria Rare H (None) /hpf Hyaline Casts 7 H (0-2) /lpf Urine Mucus Moderate H (None) /hpf - Radiology Data Radiology results: report reviewed, image reviewed KUB x-ray of the abdomen is obtained. Report was reviewed in its entirety. Impression by Dr. Horta shows no radiographic evidence of acute abdominal disease or bowel obstruction. Disposition Clinical Impression: Abdominal pain Disposition: HOME SELF-CARE Condition: Good Instructions (If sedation given, give patient instructions): Abdominal Pain (ED) Additional Instructions: Start with clear liquid diet and advance as tolerated. Follow-up with your primary care physician for recheck in 1-2 days. Return to the emergency department immediately for any new, worsening, or concerning symptoms. Is patient prescribed a controlled substance at d/c from ED?: No Referrals: Angely Issa DO [Primary Care Provider] - 1-2 days Time of Disposition: 03:20
[2019-01-11] MEDS ORDERED: HYDROmorphone 0.5 MG/0.5 ML SYRINGE IVP STA (02:44)
[2019-01-11 03:01] LABS: Amorphous Sediment,Urine Rare /hpf; Appearance,Urine Cloudy (Clear); Bacteria,Urine Rare /hpf; Bilirubin,Urine Negative (Negative); Blood,Urine Small (Negative); Color,Urine Yellow; Glucose,Urine (UA) Negative (Negative); Hyaline Casts,Urine 7 /lpf (0-2); Ketones,Urine Trace (Negative); Leukocyte Esterase,Urine Negative (Negative); Mucus,Urine Moderate /hpf; Nitrite,Urine Negative (Negative); PH, Urine 5.5 (5.0-8.0); Protein,Urine 1+ (Negative); RBC,Urine 7 /hpf (0-5); Specific Gravity,Urine 1.035 (1.001-1.035); Squamous Epithelial Cell,Urine 10 /hpf (0-4); WBC,Urine 8 /hpf (0-5)
[2019-01-11 03:58] VITALS: BP 191/92; PULSE 76; RESP 17; TEMP 98.2
== END 2019-01-11 03:56 | disposition home or self-care (01) ==
LOC: EC 23:35
DX: R10.12 Left upper quadrant pain (principal); R19.00 Intra-abdominal and pelvic swelling, mass and lump, unspecified site; R11.0 Nausea; J44.9 Chronic obstructive pulmonary disease, unspecified; I50.9 Heart failure, unspecified; M79.7 Fibromyalgia; G89.29 Other chronic pain; F17.200 Nicotine dependence, unspecified, uncomplicated; Z79.891 Long term (current) use of opiate analgesic; Z79.899 Other long term (current) drug therapy; Z88.0 Allergy status to penicillin; Z88.1 Allergy status to other antibiotic agents; Z91.041 Radiographic dye allergy status; Z88.2 Allergy status to sulfonamides; Z88.6 Allergy status to analgesic agent; Z86.14 Personal history of Methicillin resistant Staphylococcus aureus infection; Z98.51 Tubal ligation status
CPT/HCPCS: 36415; 80053; 82150; 83690; 85025; 81001; 87086; 74018; 99284; 96374; 96375; 96376; 96361; J2405; J1170 ×2

== ENCOUNTER 2019-02-25 18:48 | Inpatient (IN) | payer MEDICARE, OTHER ==
[2019-02-25] MEDS ORDERED: methylPREDNISolone SOD SUCCI 125 MG/2 ML VIAL IV STA (19:30)
[2019-02-25] MEDS ORDERED: SODIUM CHLORIDE 0.9% 1,000 ML IV ONE (19:30)
[2019-02-25] MEDS ORDERED: IPRATROPIUM-ALBUTEROL 3 ML NEB INHALATION STA (19:30)
[2019-02-25] MEDS ORDERED: ONDANSETRON 4 MG/2 ML VIAL IVP STA (19:30)
--- NOTE | 2019-02-25 19:33 | ED ---
General Adult HPI - General Chief complaint: Shortness of Breath Stated complaint: Diff Breathing, Kidney Pain Time Seen by Provider: 02/25/19 19:21 Source: patient Mode of arrival: ambulatory Limitations: no limitations - History of Present Illness Initial comments: 44-year-old female with a history of COPD and tobacco abuse presenting with worsening shortness of breath and productive cough that began 3 days prior. Patient states she's been using duonebs 3-4 times a day without improvement of her symptoms. She states she is now getting dizzy while ambulating and having dyspnea on exertion. She admits to left flank pain, that she is unsure if it is due to the amount of coughing she's been doing or she has a possible kidney infection. She admits to subjective fever. Denies any current steroid use, previous histories of intubations, or home O2 use. He states that she has cut down from 3 packs of cigarettes a day to 2 cigarettes per day. - Related Data Home Medications Medication Instructions Recorded Confirmed Potassium Chloride [Klor-Con 8] 8 meq PO DAILY 01/06/14 02/25/19 Ipratropium/Albuterol Sulfate 1 puff INHALATION RT-QID 07/26/15 02/25/19 [Combivent Respimat Inhaler] Spironolactone [Aldactone] 25 mg PO DAILY 02/05/17 02/25/19 Albuterol Inhaler [Ventolin Hfa 1 - 2 puff INHALATION RT-Q6H PRN 12/10/18 02/25/19 Inhaler] Ipratropium-Albuterol Nebulize 3 ml INHALATION RT-BID PRN 12/10/18 02/25/19 [Duoneb 0.5 mg-3 mg/3 ml Soln] oxyCODONE-APAP 10-325MG [Percocet 1 tab PO QID 12/31/18 02/25/19 10-325 mg] QUEtiapine [SEROquel] 50 mg PO HS 02/25/19 02/25/19 diphenhydrAMINE [Benadryl] 50 mg PO TID 02/25/19 02/25/19 Previous Rx's Medication Instructions Recorded ALPRAZolam [Xanax] 0.5 mg PO TID #9 tab 12/13/18 Citalopram Hydrobromide [CeleXA] 60 mg PO DAILY #9 tablet 12/13/18 Zolpidem [Ambien] 10 mg PO HS #3 tab 12/13/18 Ondansetron [Zofran ODT] 4 mg PO Q8HR PRN #12 tab 12/31/18 Allergies Allergy/AdvReac Type Severity Reaction Status Date / Time adhesive Allergy Rash/Hives Verified 02/25/19 20:22 amoxicillin Allergy Anaphylaxis Verified 02/25/19 20:22 azithromycin [From Zithromax] Allergy Anaphylaxis Verified 02/25/19 20:22 cephalexin monohydrate Allergy Anaphylaxis Verified 02/25/19 20:22 [From Keflex] ciprofloxacin Allergy Anaphylaxis Verified 02/25/19 20:22 clindamycin Allergy Anaphylaxis Verified 02/25/19 20:22 Iodinated Contrast- Oral and Allergy Swelling Verified 02/25/19 20:22 IV Dye levofloxacin [From Levaquin] Allergy Rash/Hives Verified 02/25/19 20:22 NSAIDS (Non-Steroidal Allergy Rash/Hives Verified 02/25/19 20:22 Anti-Inflamma shellfish derived Allergy Anaphylaxis Verified 02/25/19 20:22 Sulfa (Sulfonamide Allergy Anaphylaxis Verified 02/25/19 20:22 Antibiotics) sulfamethoxazole Allergy Anaphylaxis Verified 02/25/19 20:22 [From Bactrim] tramadol Allergy Unknown Verified 02/25/19 20:22 trimethoprim [From Bactrim] Allergy Anaphylaxis Verified 02/25/19 20:22 Review of Systems ROS Statement: Those systems with pertinent positive or pertinent negative responses have been documented in the HPI. Review of Systems Constitutional: Denies fever, chills Eyes: Denies change in vision, Denies pain Ears, nose, mouth, throat: Denies headaches, Denies sore throat Cardiovascular: Denies chest pain. Denies palpitations Respiratory: Positive shortness of breath, positive cough Gastrointestinal: Denies abdominal pain. Denies nausea, vomiting, diarrhea. Genitourinary: Denies hematuria, Denies infections Musculoskeletal: Denies pain, Denies swelling Integumentary: Denies rash Neurological: Denies headache, focal weakness, focal numbness Psychiatric: Denies anxiety, Denies depression Hematologic/Lymphatic: Denies easy bleeding or bruising ROS Other: All systems not noted in ROS Statement are negative. 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 IBS, cellulitis of the chin History of Any Multi-Drug Resistant Organisms: MRSA Date of last positivie culture/infection: 07/2016 MDRO Source:: chin Past Surgical History: Section, Cholecystectomy, Hysterectomy, Tubal Ligation Additional Past Surgical History / Comment(s): oral surgery . Pancreas biopsy May 2015. Past Anesthesia/Blood Transfusion Reactions: No Reported Reaction Past Psychological History: ADD/ADHD, Anxiety, Bipolar, Depression Smoking Status: Current every day smoker Past Alcohol Use History: None Reported Past Drug Use History: Marijuana - Past Family History Father Family Medical History: No Reported History Additional Family Medical History / Comment(s): ADOPTED General Exam - General Exam Comments Initial Comments: General: Awake, alert, No acute Distress HENT: Normocephalic. Atraumatic Eyes: PERRL. EOMI. No scleral icterus. No injected conjunctiva Neck: Full ROM Chest/Lungs: Diffuse wheezing and rhonchi. Tachypnea 3 word conversational dyspnea. Cardiac: Regular rate, rhythm. No murmurs or rubs. No edema Abdomen/GI: Soft, nontender, nondistended. No rebound, guarding, or rigidity. Musculoskeletal: Full ROM Skin: Warm, dry, intact Neurologic: A/Ox3, no weakness, no sensory deficit, no abnormal gait, no coordination deficit Limitations: no limitations Course Vital Signs 02/25/19 02/25/19 02/25/19 18:56 19:13 19:38 Temperature 99.4 F Pulse Rate 107 H 100 Respiratory 20 18 22 Rate Blood Pressure 141/86 124/62 O2 Sat by Pulse 89 L 95 Oximetry 02/25/19 02/25/19 02/25/19 20:03 20:09 21:30 Temperature 98.8 F Pulse Rate 99 96 97 Respiratory 16 Rate Blood Pressure 125/88 O2 Sat by Pulse 92 L Oximetry 02/25/19 02/25/19 22:58 23:17 Temperature 98.8 F 97.8 F Pulse Rate 97 90 Respiratory 16 18 Rate Blood Pressure 125/88 137/90 O2 Sat by Pulse 92 L 96 Oximetry EKG Findings - EKG Comments: EKG Findings:: EKG shows normal sinus rhythm at a rate of [address] segment elevation, depression. No prolonged QT/QTc or [place] interval. No dysrythmia noted. Medical Decision Making - Medical Decision Making 44-year-old female presenting with shortness of breath and cough. Initial exam the patient is awake, alert, she does have mild tachypnea with 3-4 word conversational dyspnea. Patient was found to be 89% on room air in triage as well as when I saw her. She was placed on 4 L of O2 with improvement of her hypoxia. Patient's chest x-ray showed pneumonia. Due to her multiple drug ALLERGIES to started on doxycycline for sepsis secondary to community acquired pneumonia. Patient also found to have hematuria. Her CT was negative for acute process. I spoke with the admitting physician who is agreeable to treatment. - Lab Data Result diagrams: 02/25/19 19:30 02/25/19 19:30 Lab Results 02/25/19 02/25/19 02/25/19 Range/Units 19:30 19:30 19:30 WBC 13.7 H (3.8-10.6) k/uL RBC 4.94 (3.80-5.40) m/uL Hgb 13.7 (11.4-16.0) gm/dL Hct 41.8 (34.0-46.0) % MCV 84.4 (80.0-100.0) fL MCH 27.6 (25.0-35.0) pg MCHC 32.7 (31.0-37.0) g/dL RDW 15.9 H (11.5-15.5) % Plt Count 292 (150-450) k/uL Neutrophils % 84 % Lymphocytes % 9 % Monocytes % 5 % Eosinophils % 1 % Basophils % 0 % Neutrophils # 11.5 H (1.3-7.7) k/uL Lymphocytes # 1.2 (1.0-4.8) k/uL Monocytes # 0.7 (0-1.0) k/uL Eosinophils # 0.2 (0-0.7) k/uL Basophils # 0.0 (0-0.2) k/uL VBG pH (7.31-7.41) VBG pCO2 (37-51) mmHg VBG HCO3 (24-28) mmol/L Sodium 135 L (137-145) mmol/L Potassium 3.9 (3.5-5.1) mmol/L Chloride 97 L (98-107) mmol/L Carbon Dioxide 28 (22-30) mmol/L Anion Gap 10 mmol/L BUN 9 (7-17) mg/dL Creatinine 0.71 (0.52-1.04) mg/dL Est GFR (CKD-EPI)AfAm >90 (>60 ml/min/1.73 sqM) Est GFR (CKD-EPI)NonAf >90 (>60 ml/min/1.73 sqM) Glucose 120 H (74-99) mg/dL Plasma Lactic Acid Srinivas (0.7-2.0) mmol/L Calcium 8.6 (8.4-10.2) mg/dL Urine Color Yellow Urine Appearance Cloudy H (Clear) Urine pH 8.5 H (5.0-8.0) Ur Specific [place] 1.022 (1.001-1.035) Urine Protein 2+ H (Negative) Urine Glucose (UA) Negative (Negative) Urine Ketones Negative (Negative) Urine Blood Moderate H (Negative) Urine Nitrite Negative (Negative) Urine Bilirubin Negative (Negative) Urine Urobilinogen 6.0 (<2.0) mg/dL Ur Leukocyte Esterase Negative (Negative) Urine RBC 34 H (0-5) /hpf Urine WBC 2 (0-5) /hpf Ur Squamous Epith Cells 6 H (0-4) /hpf Urine Mucus Rare H (None) /hpf 02/25/19 02/25/19 Range/Units 20:00 20:00 WBC (3.8-10.6) k/uL RBC (3.80-5.40) m/uL Hgb (11.4-16.0) gm/dL Hct (34.0-46.0) % MCV (80.0-100.0) fL MCH (25.0-35.0) pg MCHC (31.0-37.0) g/dL RDW (11.5-15.5) % Plt Count (150-450) k/uL Neutrophils % % Lymphocytes % % Monocytes % % Eosinophils % % Basophils % % Neutrophils # (1.3-7.7) k/uL Lymphocytes # (1.0-4.8) k/uL Monocytes # (0-1.0) k/uL Eosinophils # (0-0.7) k/uL Basophils # (0-0.2) k/uL VBG pH 7.53 H (7.31-7.41) VBG pCO2 33 L (37-51) mmHg VBG HCO3 28 (24-28) mmol/L Sodium (137-145) mmol/L Potassium (3.5-5.1) mmol/L Chloride (98-107) mmol/L Carbon Dioxide (22-30) mmol/L Anion Gap mmol/L BUN (7-17) mg/dL Creatinine (0.52-1.04) mg/dL Est GFR (CKD-EPI)AfAm (>60 ml/min/1.73 sqM) Est GFR (CKD-EPI)NonAf (>60 ml/min/1.73 sqM) Glucose (74-99) mg/dL Plasma Lactic Acid Srinivas 0.7 (0.7-2.0) mmol/L Calcium (8.4-10.2) mg/dL Urine Color Urine Appearance (Clear) Urine pH (5.0-8.0) Ur Specific [place] (1.001-1.035) Urine Protein (Negative) Urine Glucose (UA) (Negative) Urine Ketones (Negative) Urine Blood (Negative) Urine Nitrite (Negative) Urine Bilirubin (Negative) Urine Urobilinogen (<2.0) mg/dL Ur Leukocyte Esterase (Negative) Urine RBC (0-5) /hpf Urine WBC (0-5) /hpf Ur Squamous Epith Cells (0-4) /hpf Urine Mucus (None) /hpf Disposition Clinical Impression: Sepsis, Pneumonia, Asthma exacerbation in COPD, Hypoxia Disposition: ADMITTED IP TO THIS [facility] Decision to Admit Reason: Admit from EC Decision Date: 02/25/19 Decision Time: 21:57
[2019-02-25] MEDS ORDERED: oxyCODONE-APAP 10-325MG 1 EACH TAB PO STA (19:44)
[2019-02-25 19:52] LABS: Basophils % (A) 0 %; Eosinophils # (A) 0.2 k/uL (0-0.7); Eosinophils % (A) 1 %; HCT 41.8 % (34.0-46.0); HGB 13.7 gm/dL (11.4-16.0); Lymphocytes # (A) 1.2 k/uL (1.0-4.8); Lymphocytes % (A) 9 %; MCH 27.6 pg (25.0-35.0); MCHC 32.7 g/dL (31.0-37.0); MCV 84.4 fL (80.0-100.0); Mean Platelet Volume 7.1; Monocytes # (A) 0.7 k/uL (0-1.0); Monocytes % (A) 5 %; Neutrophils # (A) 11.5 k/uL (1.3-7.7); Neutrophils % (A) 84 %; Platelet Count 292 k/uL (150-450); RBC 4.94 m/uL (3.80-5.40); RDW 15.9 % (11.5-15.5); WBC 13.7 k/uL (3.8-10.6)
[2019-02-25 19:54] LABS: Appearance,Urine Cloudy (Clear); Bilirubin,Urine Negative (Negative); Blood,Urine Moderate (Negative); Color,Urine Yellow; Glucose,Urine (UA) Negative (Negative); Ketones,Urine Negative (Negative); Leukocyte Esterase,Urine Negative (Negative); Mucus,Urine Rare /hpf; Nitrite,Urine Negative (Negative); PH, Urine 8.5 (5.0-8.0); Protein,Urine 2+ (Negative); RBC,Urine 34 /hpf (0-5); Specific Gravity,Urine 1.022 (1.001-1.035); Squamous Epithelial Cell,Urine 6 /hpf (0-4)
[2019-02-25 19:57] LABS: African American GFR (CKD) >90 (>60 ml/min/1.73 sqM); Anion Gap 10 mmol/L; Blood Urea Nitrogen 9 mg/dL (7-17); Calcium 8.6 mg/dL (8.4-10.2); Carbon Dioxide 28 mmol/L (22-30); Chloride 97 mmol/L (98-107); Glucose 120 mg/dL (74-99); Potassium 3.9 mmol/L (3.5-5.1); Sodium 135 mmol/L (137-145)
--- NOTE | 2019-02-25 19:59 | XR ---
EXAMINATION TYPE: XR chest 2V DATE OF EXAM: 02/25/2019 COMPARISON: 12/10/2018 HISTORY: Short of breath TECHNIQUE: Frontal and lateral views of the chest are obtained. FINDINGS: There is some consolidation in the anterior segment right upper lobe. The other lung field s are clear. Heart is normal. Mediastinum is normal. There is no heart failure. Bony thorax is intact . IMPRESSION: There is new consolidation in the anterior right upper lobe compared to old exam. This m ore likely relates to bronchopneumonia. Follow-up is recommended show clearing.
[2019-02-25 20:27] LABS: VBG PH 7.53 (7.31-7.41)
--- NOTE | 2019-02-25 21:06 | CT ---
EXAMINATION TYPE: CT renal stones wo con DATE OF EXAM: 02/25/2019 HISTORY: Pt c/o SOB and LT side flank pain. CT DLP: 981.8 mGycm. Automated Exposure Control for Dose Reduction was Utilized. TECHNIQUE: CT scan of the abdomen and pelvis is performed without oral or IV contrast. COMPARISON: FINDINGS: There is small right pleural effusion. There is mild infiltrate and atelectasis at the rig ht lung base. There is mild pleural thickening left lung base. Liver shows no focal defect. There are clips from cholecystectomy. Spleen appears normal. There is no evidence of pancreatic mass. The bile ducts are not dilated. There is no adrenal mass. Kidneys have normal size and contour. There is no hydronephrosis. Bladder d istends smoothly. There is no inguinal hernia. There is no evidence of a pelvic mass. There is no ret roperitoneal adenopathy. Ureters are not dilated. Appendix is partly filled with air and measures up to 9 mm. There is no sign of inflammation. There is no mesenteric edema. There is no ascites or free air. There is no evidence of a bowel obstru ction. There are a few phleboliths in the pelvis. Lumbar spine is intact. Bony pelvis appears intact. IMPRESSION: Negative CT scan of the abdomen and pelvis. No renal stone or obstruction. No sign of appendicitis.
[2019-02-25] MEDS: DOXYCYCLINE 100 MG in SODIUM CHLORIDE 0.9% 100 ML IVPB SCH (21:33)
[2019-02-25] MEDS ORDERED: IPRATROPIUM-ALBUTEROL 3 ML NEB INHALATION PRN (21:55)
[2019-02-26] MEDS: ALPRAZolam 0.5 MG TAB PO SCH ×4 (00:02→22:28)
[2019-02-26] MEDS: oxyCODONE-APAP 10-325MG 1 EACH TAB PO SCH ×5 (00:02→22:27)
[2019-02-26] MEDS: SODIUM CHLORIDE 0.9% 1,000 ML IV SCH ×3 (00:20→15:16)
[2019-02-26] MEDS: diphenhydrAMINE 50 MG CAP PO SCH ×4 (00:38→23:18)
[2019-02-26] MEDS: IPRATROPIUM-ALBUTEROL 3 ML NEB INHALATION SCH ×4 (07:28→20:37)
[2019-02-26] MEDS: SPIRONOLACTONE 25 MG TAB PO SCH (08:25)
[2019-02-26] MEDS: CITALOPRAM HYDROBROMIDE 20 MG TAB PO SCH (08:25)
[2019-02-26] MEDS: POTASSIUM CHLORIDE ER 10 MEQ TAB.ER.PRT PO SCH (08:26)
[2019-02-26] MEDS: DOXYCYCLINE 100 MG in SODIUM CHLORIDE 0.9% 100 ML IVPB SCH ×2 (08:32→21:10)
[2019-02-26] MEDS: QUEtiapine 50 MG TAB PO SCH (21:11)
[2019-02-26] MEDS: ZOLPIDEM 10 MG TAB PO SCH (21:11)
[2019-02-26] MEDS: diphenhydrAMINE 25 MG CAP PO SCH (22:50)
[2019-02-27] MEDS: SODIUM CHLORIDE 0.9% 1,000 ML IV SCH ×3 (02:18→13:29)
[2019-02-27] MEDS: DOXYCYCLINE 100 MG in SODIUM CHLORIDE 0.9% 100 ML IVPB SCH ×2 (07:54→21:09)
[2019-02-27] MEDS: SPIRONOLACTONE 25 MG TAB PO SCH (07:55)
[2019-02-27] MEDS: CITALOPRAM HYDROBROMIDE 20 MG TAB PO SCH (07:55)
[2019-02-27] MEDS: oxyCODONE-APAP 10-325MG 1 EACH TAB PO SCH ×4 (07:56→22:27)
[2019-02-27] MEDS: diphenhydrAMINE 25 MG CAP PO SCH ×3 (07:56→22:27)
[2019-02-27] MEDS: POTASSIUM CHLORIDE ER 10 MEQ TAB.ER.PRT PO SCH (07:56)
[2019-02-27] MEDS: ALPRAZolam 0.5 MG TAB PO SCH ×3 (07:57→22:27)
[2019-02-27] MEDS: IPRATROPIUM-ALBUTEROL 3 ML NEB INHALATION SCH ×4 (08:48→19:49)
--- NOTE | 2019-02-27 11:45 | P.HPIM ---
History of Present Illness This is a pleasant 44 years old female with past medical history of fibromyalgia, pneumonia, achalasia, dysphagia, chronic back pain with herniated disc, bilateral carpal tunnel syndrome, history of COPD hysterectomy,. He presents with dyspnea and productive cough for 3 days. Associated with a brown phlegm. Patient denies chest pain however she has chronic back pain from her fibromyalgia. Patient was not on home oxygen or steroids. Patient states she has multiple drug ALLERGY however when asked her she told me she has taken Rocephin before with no ALLERGIC reaction. Patient has been afebrile, mildly tachycardic at 106, blood pressure 133/74 and see saturation 95% on 3 L. Labs showing mild leukocytosis of 13.7, sodium 135, glucagon 0.7. Urine is cloudy. Renal CT without contrast was negative for kidney stone or obstruction. Showing small right pleural effusion is mild infiltrate and atelectasis of the right lung base. Chest x-ray showing new infiltrate in the right upper lung. Vision was started on normal saline at 100 mL/h and doxycycline antibiotic. Review of Systems CONSTITUTIONAL: No fever, no malaise, no fatigue. HEENT: No recent visual problems or hearing problems. Denied any sore throat. CARDIOVASCULAR: no palpitations, no syncope. PULMONARY: no hemoptysis. GASTROINTESTINAL: No diarrhea, no nausea, no vomiting, no abdominal pain. Normoactive bowel sounds. NEUROLOGICAL: No headaches, no weakness, no numbness. HEMATOLOGICAL: Denies any bleeding or petechiae. GENITOURINARY: Denies any burning micturition, frequency, or urgency. MUSCULOSKELETAL/RHEUMATOLOGICAL: Denies any joint pain, swelling, or any muscle pain. ENDOCRINE: Denies any polyuria or polydipsia. 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 IBS, cellulitis of the chin History of Any Multi-Drug Resistant Organisms: MRSA Date of last positivie culture/infection: 07/2016 MDRO Source:: [facility] Past Surgical History: Section, Cholecystectomy, Hysterectomy, Tubal Ligation Additional Past Surgical History / Comment(s): oral surgery . Pancreas biopsy May 2015. Past Anesthesia/Blood Transfusion Reactions: No Reported Reaction Past Psychological History: ADD/ADHD, Anxiety, Bipolar, Depression Smoking Status: Current every day smoker Past Alcohol Use History: None Reported Past Drug Use History: Marijuana - Past Family History Father Family Medical History: No Reported History Additional Family Medical History / Comment(s): ADOPTED Medications and Allergies Home Medications Medication Instructions Recorded Confirmed Type RX: Potassium Chloride [Klor-Con 8] 8 meq PO DAILY 01/06/14 02/25/19 History RX: Ipratropium/Albuterol Sulfate 1 puff INHALATION RT-QID 07/26/15 02/25/19 History [Combivent Respimat Inhaler] RX: Spironolactone [Aldactone] 25 mg PO DAILY 02/05/17 02/25/19 History RX: Albuterol Inhaler [Ventolin 1 - 2 puff INHALATION RT-Q6H PRN 12/10/18 02/25/19 History Hfa Inhaler] RX: Ipratropium-Albuterol Nebulize 3 ml INHALATION RT-BID PRN 12/10/18 02/25/19 History [Duoneb 0.5 mg-3 mg/3 ml Soln] RX: ALPRAZolam [Xanax] 0.5 mg PO TID #9 tab 12/13/18 02/25/19 Rx RX: Citalopram Hydrobromide 60 mg PO DAILY #9 tablet 12/13/18 02/25/19 Rx [CeleXA] RX: Zolpidem [Ambien] 10 mg PO HS #3 tab 12/13/18 02/25/19 Rx Ondansetron [Zofran ODT] 4 mg PO Q8HR PRN #12 tab 12/31/18 02/25/19 Rx oxyCODONE-APAP 10-325MG [Percocet 1 tab PO QID 12/31/18 02/25/19 History 10-325 mg] QUEtiapine [SEROquel] 50 mg PO HS 02/25/19 02/25/19 History diphenhydrAMINE [Benadryl] 50 mg PO TID 02/25/19 02/25/19 History Allergies Allergy/AdvReac Type Severity Reaction Status Date / Time adhesive Allergy Rash/Hives Verified 02/25/19 20:22 amoxicillin Allergy Anaphylaxis Verified 02/25/19 20:22 azithromycin [From Zithromax] Allergy Anaphylaxis Verified 02/25/19 20:22 cephalexin monohydrate Allergy Anaphylaxis Verified 02/25/19 20:22 [From Keflex] ciprofloxacin Allergy Anaphylaxis Verified 02/25/19 20:22 clindamycin Allergy Anaphylaxis Verified 02/25/19 20:22 Iodinated Contrast- Oral and Allergy Swelling Verified 02/25/19 20:22 IV Dye levofloxacin [From Levaquin] Allergy Rash/Hives Verified 02/25/19 20:22 NSAIDS (Non-Steroidal Allergy Rash/Hives Verified 02/25/19 20:22 Anti-Inflamma shellfish derived Allergy Anaphylaxis Verified 02/25/19 20:22 Sulfa (Sulfonamide Allergy Anaphylaxis Verified 02/25/19 20:22 Antibiotics) sulfamethoxazole Allergy Anaphylaxis Verified 02/25/19 20:22 [From Bactrim] tramadol Allergy Unknown Verified 02/25/19 20:22 trimethoprim [From Bactrim] Allergy Anaphylaxis Verified 02/25/19 20:22 Physical Exam Vitals: Vital Signs Temp Pulse Pulse Resp BP Pulse Ox 02/27/19 08:59 100 02/27/19 08:50 106 H 95 02/27/19 07:00 99.6 F 106 H 18 133/74 98 02/27/19 05:38 92 02/27/19 05:28 96 02/27/19 04:00 85 17 02/27/19 01:40 98.8 F 85 17 112/74 94 L 02/27/19 00:00 96 17 02/26/19 20:51 92 02/26/19 20:37 92 02/26/19 20:00 96 17 02/26/19 19:25 99.3 F 96 17 109/66 94 L 02/26/19 19:20 98.4 F 83 17 134/70 94 L 02/26/19 16:18 92 02/26/19 16:10 90 02/26/19 14:17 97.9 F 92 16 114/73 95 Intake and Output 02/26/19 02/27/19 02/27/19 22:59 06:59 14:59 Intake Total 240 Balance 240 Intake: Oral 240 Other: Voiding Method Toilet Toilet Toilet # Voids 1 1 GENERAL: The patient is alert and oriented x3, not in any acute distress. Well developed, well nourished. HEENT: Pupils are round and equally reacting to light. EOMI. No scleral icterus. No conjunctival pallor. Normocephalic, atraumatic. No pharyngeal erythema. No th yromegaly. CARDIOVASCULAR: S1 and S2 present. No murmurs, rubs, or gallops. -PULMONARY: Chest is clear to auscultation, bilateral expiratory wheezing with prolonged expiration. Start crepitation especially in the right upper lung ABDOMEN: Soft, nontender, nondistended, normoactive bowel sounds. No palpable organomegaly. MUSCULOSKELETAL: No joint swelling or deformity. EXTREMITIES: No cyanosis, clubbing, or pedal edema. NEUROLOGICAL: Gross neurological examination did not reveal any focal deficits. SKIN: No rashes. Results CBC & Chem 7: 02/25/19 19:30 02/25/19 19:30 Labs: Microbiology - Last 24 Hours (Table) 02/25/19 20:36 Blood Culture - Preliminary Blood No Growth after 24 hours Thrombosis Risk Factor Assmnt - Choose All That Apply Any of the Below Risk Factors Present?: Yes Each Factor Represents 1 point: Abnormal pulmonary function (COPD), Age 41-60 years, Obesity (BMI >25), Serious lung disease incl. pneumonia (< 1month) Other Risk Factors: No Other congenital or acquired thrombophilia - If yes, enter type in comment: No Thrombosis Risk Factor Assessment Total Risk Factor Score: 4 Thrombosis Risk Factor Assessment Level: Moderate Risk Assessment and Plan Assessment: Community-acquired pneumonia with right upper lobe infiltrate Leukocytosis COPD with acute exacerbation History of fibromyalgia History of achalasia and dysphagia Chronic back pain with herniated disc History of bilateral carpal tunnel syndrome History of hysterectomy Plan: This is a pleasant 44 years old female who presents with pneumonia and COPD. C ontinue with antibiotics, and ceftriaxone as patient told me she was taken that before with no problems. Send sputum for culture and sensitivity. Consult pulmonary and infectious disease. Check urine analysis. Follow-up WBC. Repeat chest x-ray. Labs and medication were reviewed.. Continue same treatment. Continue with symptomatic treatment. Resume home medication. Monitor lytes and vitals. DVT and GI prophylaxis. Further recommendations of the clinical course of the patient DVT prophylaxis: Subcutaneous heparin GI Prophylaxis: Pepcid Prognosis is guarded
[2019-02-27 11:51] LABS: Basophils % (A) 0 %; Eosinophils # (A) 0.1 k/uL (0-0.7); Eosinophils % (A) 1 %; HGB 11.7 gm/dL (11.4-16.0); Hypochromasia Slight; Lymphocytes # (A) 1.5 k/uL (1.0-4.8); Lymphocytes % (A) 14 %; MCH 26.5 pg (25.0-35.0); MCHC 30.7 g/dL (31.0-37.0); MCV 86.6 fL (80.0-100.0); Mean Platelet Volume 6.9; Monocytes # (A) 0.6 k/uL (0-1.0); Monocytes % (A) 6 %; Neutrophils % (A) 77 %; Platelet Count 282 k/uL (150-450); RBC 4.39 m/uL (3.80-5.40); RDW 14.3 % (11.5-15.5); WBC 10.4 k/uL (3.8-10.6)
[2019-02-27 12:05] LABS: African American GFR (CKD) >90 (>60 ml/min/1.73 sqM); Anion Gap 8 mmol/L; Blood Urea Nitrogen 12 mg/dL (7-17); Calcium 7.9 mg/dL (8.4-10.2); Carbon Dioxide 30 mmol/L (22-30); Chloride 101 mmol/L (98-107); Glucose 119 mg/dL (74-99); Potassium 4.3 mmol/L (3.5-5.1); Sodium 139 mmol/L (137-145)
--- NOTE | 2019-02-27 13:26 | XR ---
EXAMINATION TYPE: XR chest 2V DATE OF EXAM: 02/27/2019 COMPARISON: Prior chest x-ray 02/25/2019 HISTORY: Abnormal chest x-ray, follow-up infiltrate TECHNIQUE: Frontal and lateral views of the chest are obtained. FINDINGS: Perihilar airspace disease is again noted on the right. There is no evident pneumothorax. Lung volumes are low and the patient is rotated. There is blunting of the costophrenic angles. Patchy bibasilar density noted. Aorta is stable. IMPRESSION: Findings are similar to prior exam. Correlate for pneumonia, follow-up to resolution. Th ere may be small basilar effusions, subsequent basilar atelectatic change.
[2019-02-27] MEDS: guaiFENesin 600 MG TABLET.ER PO PRN (14:06)
[2019-02-27] MEDS: HEPARIN SODIUM,PORCINE 5,000 UNIT/ML 1 ML VIAL SQ SCH ×2 (14:07→21:09)
[2019-02-27] MEDS: methylPREDNISolone SOD SUCCI 125 MG/2 ML VIAL IV SCH ×2 (14:07→18:01)
[2019-02-27 17:03] LABS: Glucose,Whole Blood 134 mg/dL (75-99)
--- NOTE | 2019-02-27 18:37 | P.CNPUL ---
History of Present Illness Reason for consult: dyspnea, cough, COPD, pneumonia Chief complaint: Shortness of breath cough History of present illness: This is a 44-year-old female with long-standing history of smoking 3 packs a day lately cut down to half to few cigarettes a day she presented with 3-4 day history of cough with brown sputum production as well as progressive shortness breath she has chronic pain syndrome and multiple drug ALLERGIES as well she is been noted to have right upper lobe infiltrate on x-ray she is been admitted into the hospital with broad-spectrum antibiotics breathing treatments steroids and due to severe ALLERGY she is on limited options for treatment, still have ongoing wheezing or rhonchi Review of Systems All systems: negative Past Medical History Past Medical History: Asthma, Heart Failure, COPD, CVA/TIA, Fibromyalgia, Pneumonia, Rheumatoid Arthritis (RA), Seizure Disorder, Syncope Additional Past Medical History / Comment(s): 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 IBS, cellulitis of the chin History of Any Multi-Drug Resistant Organisms: MRSA Date of last positivie culture/infection: 07/2016 MDRO Source:: chin Past Surgical History: Section, Cholecystectomy, Hysterectomy, Tubal Ligation Additional Past Surgical History / Comment(s): oral surgery . Pancreas biopsy May 2015. Past Anesthesia/Blood Transfusion Reactions: No Reported Reaction Past Psychological History: ADD/ADHD, Anxiety, Bipolar, Depression Smoking Status: Current every day smoker Past Alcohol Use History: None Reported Past Drug Use History: Marijuana - Past Family History Father Family Medical History: No Reported History Additional Family Medical History / Comment(s): ADOPTED Medications and Allergies Home Medications Medication Instructions Recorded Confirmed Type Potassium Chloride [Klor-Con 8] 8 meq PO DAILY 01/06/14 02/25/19 History Ipratropium/Albuterol Sulfate 1 puff INHALATION RT-QID 07/26/15 02/25/19 History [Combivent Respimat Inhaler] Spironolactone [Aldactone] 25 mg PO DAILY 02/05/17 02/25/19 History Albuterol Inhaler [Ventolin Hfa 1 - 2 puff INHALATION RT-Q6H PRN 12/10/18 02/25/19 History Inhaler] Ipratropium-Albuterol Nebulize 3 ml INHALATION RT-BID PRN 12/10/18 02/25/19 History [Duoneb 0.5 mg-3 mg/3 ml Soln] ALPRAZolam [Xanax] 0.5 mg PO TID #9 tab 12/13/18 02/25/19 Rx Citalopram Hydrobromide [CeleXA] 60 mg PO DAILY #9 tablet 12/13/18 02/25/19 Rx Zolpidem [Ambien] 10 mg PO HS #3 tab 12/13/18 02/25/19 Rx Ondansetron [Zofran ODT] 4 mg PO Q8HR PRN #12 tab 12/31/18 02/25/19 Rx oxyCODONE-APAP 10-325MG [Percocet 1 tab PO QID 12/31/18 02/25/19 History 10-325 mg] QUEtiapine [SEROquel] 50 mg PO HS 02/25/19 02/25/19 History diphenhydrAMINE [Benadryl] 50 mg PO TID 02/25/19 02/25/19 History Allergies Allergy/AdvReac Type Severity Reaction Status Date / Time adhesive Allergy Rash/Hives Verified 02/25/19 20:22 amoxicillin Allergy Anaphylaxis Verified 02/25/19 20:22 azithromycin [From Zithromax] Allergy Anaphylaxis Verified 02/25/19 20:22 cephalexin monohydrate Allergy Anaphylaxis Verified 02/25/19 20:22 [From Keflex] ciprofloxacin Allergy Anaphylaxis Verified 02/25/19 20:22 clindamycin Allergy Anaphylaxis Verified 02/25/19 20:22 Iodinated Contrast- Oral and Allergy Swelling Verified 02/25/19 20:22 IV Dye levofloxacin [From Levaquin] Allergy Rash/Hives Verified 02/25/19 20:22 NSAIDS (Non-Steroidal Allergy Rash/Hives Verified 02/25/19 20:22 Anti-Inflamma shellfish derived Allergy Anaphylaxis Verified 02/25/19 20:22 Sulfa (Sulfonamide Allergy Anaphylaxis Verified 02/25/19 20:22 Antibiotics) sulfamethoxazole Allergy Anaphylaxis Verified 02/25/19 20:22 [From Bactrim] tramadol Allergy Unknown Verified 02/25/19 20:22 trimethoprim [From Bactrim] Allergy Anaphylaxis Verified 02/25/19 20:22 Physical Exam Vitals: Vital Signs Temp Pulse Pulse Resp BP Pulse Ox 02/27/19 16:24 88 02/27/19 16:16 90 02/27/19 14:16 98.4 F 94 16 142/71 96 02/27/19 12:08 92 16 02/27/19 11:58 91 16 02/27/19 08:59 100 02/27/19 08:50 106 H 95 02/27/19 07:00 99.6 F 106 H 18 133/74 98 02/27/19 05:38 92 02/27/19 05:28 96 02/27/19 04:00 85 17 02/27/19 01:40 98.8 F 85 17 112/74 94 L 02/27/19 00:00 96 17 02/26/19 20:51 92 02/26/19 20:37 92 02/26/19 20:00 96 17 02/26/19 19:25 99.3 F 96 17 109/66 94 L 02/26/19 19:20 98.4 F 83 17 134/70 94 L Intake and Output 02/27/19 02/27/19 02/27/19 06:59 14:59 22:59 Other: Voiding Method Toilet Toilet # Voids 1 3 - Constitutional General appearance: disheveled, morbidly obese - EENT Eyes: anicteric sclerae, EOMI, PERRLA, dentition normal, normal appearance ENT: normal oropharynx Ears: bilateral: normal - Neck Carotids: bilateral: upstroke normal Thyroid: bilateral: normal size - Respiratory Respiratory: bilateral: diminished, rhonchi, wheezing, prolonged expiration, negative: CTA, dullness, rales - Cardiovascular Rhythm: regular Heart sounds: normal: S1, S2 - Gastrointestinal General gastrointestinal: distended, normal bowel sounds, soft - Integumentary Integumentary: normal turgor - Neurologic Neurologic: CNII-XII intact - Musculoskeletal Musculoskeletal: gait normal, generalized weakness, strength equal bilaterally - Psychiatric Psychiatric: A&O x's 3, appropriate affect, intact judgment & insight Results - Laboratory Findings CBC and BMP: 02/27/19 11:39 02/27/19 11:39 Abnormal lab findings: Abnormal Labs 02/25/19 02/25/19 02/25/19 19:30 19:30 19:30 WBC 13.7 H MCHC RDW 15.9 H Neutrophils # 11.5 H VBG pH VBG pCO2 Sodium 135 L Chloride 97 L Glucose 120 H POC Glucose (mg/dL) Calcium Urine Appearance Cloudy H Urine pH 8.5 H Urine Protein 2+ H Urine Blood Moderate H Urine RBC 34 H Ur Squamous Epith Cells 6 H Urine Mucus Rare H 02/25/19 02/27/19 02/27/19 20:00 11:39 11:39 WBC MCHC 30.7 L RDW Neutrophils # 8.0 H VBG pH 7.53 H VBG pCO2 33 L Sodium Chloride Glucose 119 H POC Glucose (mg/dL) Calcium 7.9 L Urine Appearance Urine pH Urine Protein Urine Blood Urine RBC Ur Squamous Epith Cells Urine Mucus 02/27/19 16:39 WBC MCHC RDW Neutrophils # VBG pH VBG pCO2 Sodium Chloride Glucose POC Glucose (mg/dL) 134 H Calcium Urine Appearance Urine pH Urine Protein Urine Blood Urine RBC Ur Squamous Epith Cells Urine Mucus - Diagnostic Findings Chest x-ray: report reviewed, image reviewed (Finding as noted above, x-ray per formed on February 26 and reviewed, 13 systemic of mild interstitial edema) Assessment and Plan Assessment: Acute right upper lobe pneumonia Acute COPD exacerbation Sepsis and leukocytosis Possible urinary tract infection Obstructive sleep apnea and sleep disorder breathing Plan: Broad-spectrum antibiotics Bronchodilators IV steroids In next 24 hours cut down the fluids to KVO Sputum for Gram stain and culture Further recommendations pending plan of care as per clinical response of the patient Patient will likely need a sleep study on outpatient basis Time with Patient: Greater than 30
[2019-02-27 20:35] LABS: Glucose,Whole Blood 210 mg/dL (75-99)
[2019-02-27] MEDS: FAMOTIDINE 20 MG/2 ML VIAL IV SCH (21:09)
[2019-02-27] MEDS: ZOLPIDEM 10 MG TAB PO SCH (21:09)
[2019-02-27] MEDS: QUEtiapine 50 MG TAB PO SCH (21:09)
[2019-02-27] MEDS: INSULIN ASPART (NovoLOG) 100 UNIT/ML VIAL SQ SCH (21:10)
--- NOTE | 2019-02-27 22:40 | P.CONS ---
History of Present Illness - Reason for Consult Consult date: 02/27/19 Pneumonia with multiple antibiotic ALLERGY Requesting physician: Jamaal E Sheet - Chief Complaint Shortness of breath cough 3 days - History of Present Illness Patient is a 44-year-old female with past medical history significant for COPD current tobacco use presented to the hospital with a chief complaints of increasing shortness of breath and cough medicine, has been getting worse for the last 3 days cough has been moderate in intensity and bringing up some yellowish sputum at times brown but no erika hemoptysis patient be complaining of pain on the left side of her chest more of a dull aching to sharp moderate intensity and no radiation patient did have some subjective fever with chills patient took some do nebs treatment without any improvement has she presented to the hospital patient was evaluated by the ER physician did have a chest x-ray with the left upper lobe pneumonia white count was elevated 13.7 as the patient did have multiple antibiotics ALLERGIES infectious disease was consulted for further recommendation regarding antibiotic Review of Systems Positive points has been mentioned in HPI rest of the systems are negative Past Medical History Past Medical History: Asthma, Heart Failure, COPD, CVA/TIA, Fibromyalgia, Pneumonia, Rheumatoid Arthritis (RA), Seizure Disorder, Syncope Additional Past Medical History / Comment(s): 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 IBS, cellulitis of the chin History of Any Multi-Drug Resistant Organisms: MRSA Year Discovered:: 07/2016 MDRO Source:: [facility] Past Surgical History: Section, Cholecystectomy, Hysterectomy, Tubal Ligation Additional Past Surgical History / Comment(s): oral surgery . Pancreas biopsy May 2015. Past Anesthesia/Blood Transfusion Reactions: No Reported Reaction Past Psychological History: ADD/ADHD, Anxiety, Bipolar, Depression Smoking Status: Current every day smoker Past Alcohol Use History: None Reported Past Drug Use History: Marijuana - Past Family History Father Family Medical History: No Reported History Additional Family Medical History / Comment(s): ADOPTED Medications and Allergies Home Medications Medication Instructions Recorded Confirmed Type Potassium Chloride [Klor-Con 8] 8 meq PO DAILY 01/06/14 02/25/19 History Ipratropium/Albuterol Sulfate 1 puff INHALATION RT-QID 07/26/15 02/25/19 History [Combivent Respimat Inhaler] Spironolactone [Aldactone] 25 mg PO DAILY 02/05/17 02/25/19 History Albuterol Inhaler [Ventolin Hfa 1 - 2 puff INHALATION RT-Q6H PRN 12/10/18 02/25/19 History Inhaler] Ipratropium-Albuterol Nebulize 3 ml INHALATION RT-BID PRN 12/10/18 02/25/19 History [Duoneb 0.5 mg-3 mg/3 ml Soln] ALPRAZolam [Xanax] 0.5 mg PO TID #9 tab 12/13/18 02/25/19 Rx Citalopram Hydrobromide [CeleXA] 60 mg PO DAILY #9 tablet 12/13/18 02/25/19 Rx Zolpidem [Ambien] 10 mg PO HS #3 tab 12/13/18 02/25/19 Rx Ondansetron [Zofran ODT] 4 mg PO Q8HR PRN #12 tab 12/31/18 02/25/19 Rx oxyCODONE-APAP 10-325MG [Percocet 1 tab PO QID 12/31/18 02/25/19 History 10-325 mg] QUEtiapine [SEROquel] 50 mg PO HS 02/25/19 02/25/19 History diphenhydrAMINE [Benadryl] 50 mg PO TID 02/25/19 02/25/19 History Allergies Allergy/AdvReac Type Severity Reaction Status Date / Time adhesive Allergy Rash/Hives Verified 02/25/19 20:22 amoxicillin Allergy Anaphylaxis Verified 02/25/19 20:22 azithromycin [From Zithromax] Allergy Anaphylaxis Verified 02/25/19 20:22 cephalexin monohydrate Allergy Anaphylaxis Verified 02/25/19 20:22 [From Keflex] ciprofloxacin Allergy Anaphylaxis Verified 02/25/19 20:22 clindamycin Allergy Anaphylaxis Verified 02/25/19 20:22 Iodinated Contrast- Oral and Allergy Swelling Verified 02/25/19 20:22 IV Dye levofloxacin [From Levaquin] Allergy Rash/Hives Verified 02/25/19 20:22 NSAIDS (Non-Steroidal Allergy Rash/Hives Verified 02/25/19 20:22 Anti-Inflamma shellfish derived Allergy Anaphylaxis Verified 02/25/19 20:22 Sulfa (Sulfonamide Allergy Anaphylaxis Verified 02/25/19 20:22 Antibiotics) sulfamethoxazole Allergy Anaphylaxis Verified 02/25/19 20:22 [From Bactrim] tramadol Allergy Unknown Verified 02/25/19 20:22 trimethoprim [From Bactrim] Allergy Anaphylaxis Verified 02/25/19 20:22 Physical Exam Vitals: Vital Signs Temp Pulse Pulse Resp BP Pulse Ox 02/27/19 11:58 91 16 02/27/19 08:59 100 02/27/19 08:50 106 H 95 02/27/19 07:00 99.6 F 106 H 18 133/74 98 02/27/19 05:38 92 02/27/19 05:28 96 02/27/19 04:00 85 17 02/27/19 01:40 98.8 F 85 17 112/74 94 L 02/27/19 00:00 96 17 02/26/19 20:51 92 02/26/19 20:37 92 02/26/19 20:00 96 17 02/26/19 19:25 99.3 F 96 17 109/66 94 L 02/26/19 19:20 98.4 F 83 17 134/70 94 L 02/26/19 16:18 92 02/26/19 16:10 90 02/26/19 14:17 97.9 F 92 16 114/73 95 Intake and Output 02/26/19 02/27/19 02/27/19 22:59 06:59 14:59 Intake Total 240 Balance 240 Intake: Oral 240 Other: Voiding Method Toilet Toilet Toilet # Voids 1 1 GENERAL DESCRIPTION: Middle-aged female lying in bed, no distress. No tachypnea or accessory muscle of respiration use. HEENT: Shows Pallor , no scleral icterus. Oral mucous membrane is dry. No pharyngeal erythema or thrush NECK: Trachea central, no thyromegaly. LUNGS: Unlabored breathing. Coarse breath sounds bilaterally with wheeze or crackle. HEART: S1, S2, regular rate and rhythm. No loud murmur ABDOMEN: Soft, no tenderness , guarding or rigidity, no organomegaly EXTREMITIES: No edema of feet. SKIN: No rash, no masses palpable. NEUROLOGICAL: The patient is awake, alert, oriented x3, mood and affect normal. Results CBC & Chem 7: 02/27/19 11:39 02/27/19 11:39 Labs: Abnormal Lab Results - Last 24 Hours (Table) 02/27/19 02/27/19 Range/Units 11:39 11:39 MCHC 30.7 L (31.0-37.0) g/dL Neutrophils # 8.0 H (1.3-7.7) k/uL Glucose 119 H (74-99) mg/dL Calcium 7.9 L (8.4-10.2) mg/dL Microbiology - Last 24 Hours (Table) 02/25/19 20:36 Blood Culture - Preliminary Blood No Growth after 24 hours Assessment and Plan Assessment: 1-patient presented to hospital with increasing shortness of breath or cough sputum production with evidence of left-sided pneumonia elevated white count likely community-acquired in this patient who do have multiple antibiotic ALLERGIES she describes her ALLERGY to cephalexin as anaphylaxis but then mention at the same time that she has taken Rocephin without any problem clinically doubt true cephalosporin ALLERGY Plan: 1-Rocephin 1 g daily along with doxycycline 100 mg twice a day which can be by mouth 2-obtain sputum for Gram stain and culture we will follow on clinical condition and culture to further adjust medication if needed Thank you for this consultation will follow this patient along with you Time with Patient: Greater than 30
[2019-02-28] MEDS: methylPREDNISolone SOD SUCCI 125 MG/2 ML VIAL IV SCH ×5 (00:37→23:38)
[2019-02-28] MEDS: SODIUM CHLORIDE 0.9% 1,000 ML IV SCH ×3 (00:37→21:18)
[2019-02-28 07:31] LABS: Glucose,Whole Blood 158 mg/dL (75-99)
[2019-02-28 07:42] LABS: Basophils % (A) 0 %; Eosinophils % (A) 0 %; HCT 38.1 % (34.0-46.0); HGB 11.7 gm/dL (11.4-16.0); Hypochromasia Moderate; Lymphocytes # (A) 0.7 k/uL (1.0-4.8); Lymphocytes % (A) 10 %; MCH 26.8 pg (25.0-35.0); MCHC 30.8 g/dL (31.0-37.0); Mean Platelet Volume 6.8; Monocytes # (A) 0.2 k/uL (0-1.0); Monocytes % (A) 2 %; Neutrophils % (A) 87 %; Platelet Count 305 k/uL (150-450); RBC 4.37 m/uL (3.80-5.40)
[2019-02-28] MEDS: IPRATROPIUM-ALBUTEROL 3 ML NEB INHALATION SCH ×4 (07:45→20:16)
[2019-02-28 07:55] LABS: African American GFR (CKD) >90 (>60 ml/min/1.73 sqM); Anion Gap 6 mmol/L; Blood Urea Nitrogen 11 mg/dL (7-17); Calcium 8.1 mg/dL (8.4-10.2); Carbon Dioxide 33 mmol/L (22-30); Chloride 103 mmol/L (98-107); Glucose 166 mg/dL (74-99); Potassium 4.6 mmol/L (3.5-5.1); Sodium 142 mmol/L (137-145)
[2019-02-28] MEDS: diphenhydrAMINE 25 MG CAP PO SCH ×3 (08:03→21:07)
[2019-02-28] MEDS: HEPARIN SODIUM,PORCINE 5,000 UNIT/ML 1 ML VIAL SQ SCH ×2 (08:06→21:08)
[2019-02-28] MEDS: SPIRONOLACTONE 25 MG TAB PO SCH (08:07)
[2019-02-28] MEDS: INSULIN ASPART (NovoLOG) 100 UNIT/ML VIAL SQ SCH ×4 (08:07→21:10)
[2019-02-28] MEDS: DOXYCYCLINE 100 MG CAP PO SCH ×2 (08:07→21:08)
[2019-02-28] MEDS: CITALOPRAM HYDROBROMIDE 20 MG TAB PO SCH (08:08)
[2019-02-28] MEDS: ALPRAZolam 0.5 MG TAB PO SCH ×3 (08:08→21:06)
[2019-02-28] MEDS: FAMOTIDINE 20 MG/2 ML VIAL IV SCH ×2 (08:08→21:08)
[2019-02-28] MEDS: POTASSIUM CHLORIDE ER 10 MEQ TAB.ER.PRT PO SCH (08:08)
[2019-02-28] MEDS: oxyCODONE-APAP 10-325MG 1 EACH TAB PO SCH ×4 (08:08→21:06)
--- NOTE | 2019-02-28 11:48 | XR ---
EXAMINATION TYPE: XR chest 2V DATE OF EXAM: 02/28/2019 COMPARISON: 02/27/2019 HISTORY: Shortness of breath TECHNIQUE: Frontal and lateral views of the chest are obtained. FINDINGS: Slight increase in hazy and patchy opacities in the left upper and left lower lobe. Redemo nstration of opacity in the right suprahilar region and patchy opacities in the right lung base. No e vidence of pneumothorax. Small bilateral pleural effusions. Cardiac silhouette and pulmonary vasculat ure are within normal limits. Degenerative changes are seen in the mid and lower thoracic spine. IMPRESSION: Slight worsening multifocal opacities suggestive of pneumonia. Small bilateral pleural e ffusions. Follow-up to resolution.
[2019-02-28 12:06] LABS: Glucose,Whole Blood 140 mg/dL (75-99)
--- NOTE | 2019-02-28 13:33 | P.PN ---
Subjective This is a pleasant 44 years old female with past medical history of fibromyalgia, pneumonia, achalasia, dysphagia, chronic back pain with herniated disc, bilateral carpal tunnel syndrome, history of COPD hysterectomy,. He presents with dyspnea and productive cough for 3 days. Associated with a brown phlegm. Patient denies chest pain however she has chronic back pain from her fibromyalgia. Patient was not on home oxygen or steroids. Patient states she has multiple drug ALLERGY however when asked her she told me she has taken Rocephin before with no ALLERGIC reaction. Patient has been afebrile, mildly tachycardic at 106, blood pressure 133/74 and see saturation 95% on 3 L. Labs showing mild leukocytosis of 13.7, sodium 135, glucagon 0.7. Urine is cloudy. Renal CT without contrast was negative for kidney stone or obstruction. Showing small right pleural effusion is mild infiltrate and atelectasis of the right lung base. Chest x-ray showing new infiltrate in the right upper lung. Vision was started on normal saline at 100 mL/h and doxycycline antibiotic. 02/28/2019 Patient is awake but she still have some dyspnea and wheezing with slight improvement but patient states she is in the right direction. She denies chest pain or other symptoms. No diarrhea. She is alert and diet well. She is hemodynamically stable and she is saturating 96% on 2 L. Her leukocytosis resolved. She started to ceftriaxone well. Pulmonary and infectious disease input is appreciated. Patient remains on broad-spectrum antibiotics of ceftr iaxone and doxycycline, continue with bronchodilators and steroids while cutting down on IV fluids. Review of systems CONSTITUTIONAL: No fever, no malaise, no fatigue. HEENT: No recent visual problems or hearing problems. Denied any sore throat. CARDIOVASCULAR: No orthopnea, PND, no palpitations, no syncope. PULMONARY: no hemoptysis. GASTROINTESTINAL: No diarrhea, no nausea, no vomiting, no abdominal pain. Normoactive bowel sounds. NEUROLOGICAL: No headaches, no weakness, no numbness. HEMATOLOGICAL: Denies any bleeding or petechiae. GENITOURINARY: Denies any burning micturition, frequency, or urgency. MUSCULOSKELETAL/RHEUMATOLOGICAL: Denies any joint pain, swelling, or any muscle pain. ENDOCRINE: Denies any polyuria or polydipsia. Active Medications Generic Name Dose Route Start Last Admin Trade Name Freq PRN Reason Stop Dose Admin Albuterol/Ipratropium 3 ml 02/25/19 21:55 02/27/19 05:28 Duoneb 0.5 Mg-3 Mg/3 Ml Soln INHALATION 3 ml RT-BID PRN Administration Shortness Of Breath Albuterol/Ipratropium 3 ml 02/26/19 08:00 02/28/19 11:03 Duoneb 0.5 Mg-3 Mg/3 Ml Soln INHALATION Not Given RT-QID [facility] Alprazolam 0.5 mg 02/25/19 22:00 02/28/19 08:08 Xanax PO 0.5 mg TID [facility]ON Administration Citalopram Hydrobromide 60 mg 02/26/19 09:00 02/28/19 08:08 Celexa PO 60 mg DAILY [facility] Administration Diphenhydramine HCl 50 mg 02/26/19 22:31 02/28/19 08:03 Benadryl PO 50 mg TID [facility] Administration Doxycycline Monohydrate 100 mg 02/28/19 09:00 02/28/19 08:07 Vibramycin PO 100 mg BID [facility] Administration Famotidine 20 mg 02/27/19 21:00 02/28/19 08:08 Pepcid IV 20 mg Q12HR [facility] Administration Guaifenesin 600 mg 02/27/19 12:04 02/27/19 14:06 Mucinex PO 600 mg Q12HR PRN Administration Congestion Heparin Sodium (Porcine) 5,000 unit 02/27/19 11:45 02/28/19 08:06 Heparin SQ 5,000 unit Q12HR [facility] Administration Sodium Chloride 1,000 mls @ 100 mls/hr 02/25/19 22:00 02/28/19 00:37 Saline 0.9% IV 100 mls/hr .Q10H [facility] Administration Ceftriaxone Sodium 1 gm/ 50 mls @ 100 mls/hr 02/27/19 11:45 02/28/19 07:55 Sodium Chloride IVPB 100 mls/hr Q12HR [facility] Administration Insulin Aspart 0 unit 02/27/19 21:00 02/28/19 12:20 Novolog SQ 1 unit ACHS [facility] Administration Protocol Methylprednisolone Sodium Succinate 60 mg 02/27/19 12:00 02/28/19 12:19 Solu-Medrol IV 60 mg Q6HR [facility] Administration Oxycodone/Acetaminophen 1 each 02/25/19 22:00 02/28/19 12:20 Percocet 10-325 PO 1 each QID [facility] Administration Potassium Chloride 10 meq 02/26/19 09:00 02/28/19 08:08 K-Dur 10 PO 10 meq DAILY [facility] Administration Quetiapine Fumarate 50 mg 02/26/19 21:00 02/27/19 21:09 Seroquel PO 50 mg HS [facility] Administration Spironolactone 25 mg 02/26/19 09:00 02/28/19 08:07 Aldactone PO 25 mg DAILY [facility] Administration Zolpidem Tartrate 10 mg 02/26/19 21:00 02/27/19 21:09 Ambien PO 10 mg HS [facility] Administration Objective - Vital Signs Vital signs: Vital Signs Temp 97.8 F 02/28/19 07:00 Pulse 78 02/28/19 07:00 Resp 15 02/28/19 07:00 BP 142/82 02/28/19 07:00 Pulse Ox 96 02/28/19 07:00 Intake & Output 02/27/19 02/28/19 02/28/19 18:59 06:59 18:59 Intake Total 1060 Balance 1060 Weight 105.8 kg Intake: Intake, IV Titration 1000 Amount Sodium Chloride 0.9% 1, 950 000 ml @ 100 mls/hr IV . Q10H [facility] Rx#:[id number] cefTRIAXone 1 gm In 50 Sodium Chloride 0.9% 50 ml @ 100 mls/hr IVPB Q12HR [facility] Rx#:[id number] Oral 60 Other: Voiding Method Toilet Toilet # Voids 3 1 - Exam GENERAL: The patient is alert and oriented x3, not in any acute distress. Well developed, well nourished. HEENT: Pupils are round and equally reacting to light. EOMI. No scleral icterus. No conjunctival pallor. Normocephalic, atraumatic. No pharyngeal erythema. No thyromegaly. CARDIOVASCULAR: S1 and S2 present. No murmurs, rubs, or gallops. -PULMONARY: Chest is clear to auscultation, bilateral expiratory wheezing with prolonged expiration. Start crepitation especially in the right upper lung ABDOMEN: Soft, nontender, nondistended, normoactive bowel sounds. No palpable organomegaly. MUSCULOSKELETAL: No joint swelling or deformity. EXTREMITIES: No cyanosis, clubbing, or pedal edema. NEUROLOGICAL: Gross neurological examination did not reveal any focal deficits. SKIN: No rashes. - Labs CBC & Chem 7: 02/28/19 06:58 02/28/19 06:58 Labs: Abnormal Lab Results - Last 24 Hours (Table) 02/27/19 02/27/19 02/28/19 Range/Units 16:39 20:33 06:58 MCHC 30.8 L (31.0-37.0) g/dL Lymphocytes # 0.7 L (1.0-4.8) k/uL Carbon Dioxide (22-30) mmol/L Glucose (74-99) mg/dL POC Glucose (mg/dL) 134 H 210 H (75-99) mg/dL Calcium (8.4-10.2) mg/dL 02/28/19 02/28/19 02/28/19 Range/Units 06:58 07:12 11:50 MCHC (31.0-37.0) g/dL Lymphocytes # (1.0-4.8) k/uL Carbon Dioxide 33 H (22-30) mmol/L Glucose 166 H (74-99) mg/dL POC Glucose (mg/dL) 158 H 140 H (75-99) mg/dL Calcium 8.1 L (8.4-10.2) mg/dL Microbiology - Last 24 Hours (Table) 02/25/19 20:36 Blood Culture - Preliminary Blood No Growth after 48 hours 02/27/19 13:15 Gram Stain - Final Sputum Assessment and Plan Assessment: Community-acquired pneumonia with right upper lobe infiltrate Leukocytosis COPD with acute exacerbation History of fibromyalgia History of achalasia and dysphagia Chronic back pain with herniated disc History of bilateral carpal tunnel syndrome History of hysterectomy Plan: This is a pleasant 44 years old female who presents with pneumonia and COPD. Continue with antibiotics, and ceftriaxone as patient told me she was taken that before with no problems. Send sputum for culture and sensitivity. Consult pulmonary and infectious disease. Check urine analysis. Follow-up WBC. Repeat chest x-ray. Labs and medication were reviewed.. Continue same treatment. Continue with symptomatic treatment. Resume home medication. Monitor lytes and vitals. DVT and GI prophylaxis. Further recommendations of the clinical course of the patient DVT prophylaxis: Subcutaneous heparin GI Prophylaxis: Pepcid Prognosis is guarded
[2019-02-28 14:04] LABS: Hemoglobin A1C 6.3 % (4.0-6.0)
--- NOTE | 2019-02-28 16:03 | PN ---
PROGRESS NOTE DATE OF SERVICE: 02/28/2019. REASON FOR FOLLOWUP: Pneumonia with multiple antibiotic allergies. INTERVAL HISTORY: The patient is currently afebrile. Patient has been breathing comfortably. The patient did have a cough. Though less productive now. No nausea, no vomiting. No abdominal pain and no diarrhea. On examination, blood pressure is 142/82 with a pulse of 70, temperature 97.8. She is 97% on 2 L nasal cannula. General description is a middle-aged female lying in bed in no distress. Respiratory system: Unlabored breathing, coarse breath sounds bilaterally. Occasional wheeze. Heart S1, S2. Regular rate and rhythm. Abdomen soft. No tenderness. LAB: Sputum has been rejected by the micro lab. Hemoglobin 11.7, white count 7.8 with a BUN of 11, creatinine 0.57. Blood culture so far negative. DIAGNOSTIC IMPRESSION AND PLAN: Patient admitted to the hospital with pneumonia in this patient with underlying chronic obstructive pulmonary disease with multiple antibiotic allergies. Currently tolerating Rocephin and doxycycline to continue. Sputum to be collected and adjust antibiotics further based on the culture report. Continue supportive care. MMODL / IJN: [id number] /
[2019-02-28 16:58] LABS: Glucose,Whole Blood 125 mg/dL (75-99)
[2019-02-28 20:44] LABS: Glucose,Whole Blood 233 mg/dL (75-99)
[2019-02-28] MEDS: ZOLPIDEM 10 MG TAB PO SCH (21:07)
[2019-02-28] MEDS: QUEtiapine 50 MG TAB PO SCH (21:07)
[2019-03-01] MEDS: methylPREDNISolone SOD SUCCI 125 MG/2 ML VIAL IV SCH ×4 (05:47→22:55)
[2019-03-01] MEDS: SODIUM CHLORIDE 0.9% 1,000 ML IV SCH ×2 (06:10→17:14)
[2019-03-01 07:03] LABS: Glucose,Whole Blood 146 mg/dL (75-99)
--- NOTE | 2019-03-01 07:21 | P.PN ---
Subjective Progress Note Date: 03/01/19 Principal diagnosis: Acute right upper lobe pneumonia Acute COPD exacerbation Acute asthma Baseline chronic persistent asthma of severe category Sepsis and leukocytosis Possible urinary tract infection Obstructive sleep apnea and sleep disorder breathing 03/01/2019, patient seen eval examined during the rounds labs reviewed medications reviewed and is still of ongoing cough congestion is present and wheezing has been has been admitted into the hospital as well with similar symptoms and complaints they have 3 cats at home for workup for ALLERGIC asthma This is a 44-year-old female with long-standing history of smoking 3 packs a day lately cut down to half to few cigarettes a day she presented with 3-4 day history of cough with brown sputum production as well as progressive shortness breath she has chronic pain syndrome and multiple drug ALLERGIES as well she is been noted to have right upper lobe infiltrate on x-ray she is been admitted into the hospital with broad-spectrum antibiotics breathing treatments steroids and due to severe ALLERGY she is on limited options for treatment, still have ongoing wheezing or rhonch Objective - Vital Signs Vital signs: Vital Signs Temp 98.0 F 03/01/19 02:51 Pulse 73 03/01/19 02:51 Resp 18 03/01/19 04:15 BP 136/83 03/01/19 02:51 Pulse Ox 93 L 03/01/19 02:51 Intake & Output 02/28/19 03/01/19 03/01/19 18:59 06:59 18:59 Intake Total 887 Balance 887 Intake: Oral 887 Other: Voiding Method Toilet # Voids 3 2 - Exam - Constitutional General appearance: disheveled, morbidly obese - EENT Eyes: anicteric sclerae, EOMI, PERRLA, dentition normal, normal appearance ENT: normal oropharynx Ears: bilateral: normal - Neck Carotids: bilateral: upstroke normal Thyroid: bilateral: normal size - Respiratory Respiratory: bilateral: diminished, rhonchi, wheezing, prolonged expiration, negative: CTA, dullness, rales - Cardiovascular Rhythm: regular Heart sounds: normal: S1, S2 - Gastrointestinal General gastrointestinal: distended, normal bowel sounds, soft - Integumentary Integumentary: normal turgor - Neurologic Neurologic: CNII-XII intact - Musculoskeletal Musculoskeletal: gait normal, generalized weakness, strength equal bilaterally - Psychiatric Psychiatric: A&O x's 3, appropriate affect, intact judgment & insight - Labs CBC & Chem 7: 02/28/19 06:58 02/28/19 06:58 Labs: Abnormal Lab Results - Last 24 Hours (Table) 02/28/19 02/28/19 02/28/19 Range/Units 06:58 06:58 06:58 MCHC 30.8 L (31.0-37.0) g/dL Lymphocytes # 0.7 L (1.0-4.8) k/uL Carbon Dioxide 33 H (22-30) mmol/L Glucose 166 H (74-99) mg/dL POC Glucose (mg/dL) (75-99) mg/dL Hemoglobin A1c 6.3 H (4.0-6.0) % Calcium 8.1 L (8.4-10.2) mg/dL 02/28/19 02/28/19 02/28/19 Range/Units 07:12 11:50 16:45 MCHC (31.0-37.0) g/dL Lymphocytes # (1.0-4.8) k/uL Carbon Dioxide (22-30) mmol/L Glucose (74-99) mg/dL POC Glucose (mg/dL) 158 H 140 H 125 H (75-99) mg/dL Hemoglobin A1c (4.0-6.0) % Calcium (8.4-10.2) mg/dL 02/28/19 03/01/19 Range/Units 20:32 07:01 MCHC (31.0-37.0) g/dL Lymphocytes # (1.0-4.8) k/uL Carbon Dioxide (22-30) mmol/L Glucose (74-99) mg/dL POC Glucose (mg/dL) 233 H 146 H (75-99) mg/dL Hemoglobin A1c (4.0-6.0) % Calcium (8.4-10.2) mg/dL Microbiology - Last 24 Hours (Table) 02/27/19 16:33 Gram Stain - Preliminary Sputum Sputum Culture - Preliminary 02/25/19 20:36 Blood Culture - Preliminary Blood No Growth after 72 hours Assessment and Plan Assessment: Acute right upper lobe pneumonia Acute COPD exacerbation Acute asthma and asthmatic bronchitis Probable baseline chronic persistent asthma/ALLERGY asthma Sepsis and leukocytosis Possible urinary tract infection Obstructive sleep apnea and sleep disorder breathing Plan: Broad-spectrum antibiotics Bronchodilators IV steroids Labs for ALLERGIC asthma Follow-up on Sputum for Gram stain and culture Further recommendations pending plan of care as per clinical response of the patient Patient will likely need a sleep study on outpatient basis Time with Patient: Greater than 30
[2019-03-01] MEDS: IPRATROPIUM-ALBUTEROL 3 ML NEB INHALATION SCH ×4 (07:34→19:48)
[2019-03-01 07:50] LABS: Basophils % (A) 0 %; Eosinophils % (A) 0 %; HCT 41.8 % (34.0-46.0); HGB 12.8 gm/dL (11.4-16.0); Hypochromasia Marked; Lymphocytes # (A) 0.8 k/uL (1.0-4.8); Lymphocytes % (A) 11 %; MCH 26.7 pg (25.0-35.0); MCHC 30.6 g/dL (31.0-37.0); MCV 87.3 fL (80.0-100.0); Mean Platelet Volume 6.7; Monocytes # (A) 0.3 k/uL (0-1.0); Monocytes % (A) 3 %; Neutrophils # (A) 6.6 k/uL (1.3-7.7); Neutrophils % (A) 85 %; Platelet Count 377 k/uL (150-450); RBC 4.78 m/uL (3.80-5.40); RDW 13.8 % (11.5-15.5); WBC 7.8 k/uL (3.8-10.6)
[2019-03-01 08:12] LABS: African American GFR (CKD) >90 (>60 ml/min/1.73 sqM); Anion Gap 7 mmol/L; Blood Urea Nitrogen 15 mg/dL (7-17); Calcium 8.7 mg/dL (8.4-10.2); Carbon Dioxide 32 mmol/L (22-30); Chloride 103 mmol/L (98-107); Glucose 157 mg/dL (74-99); Potassium 4.6 mmol/L (3.5-5.1); Sodium 142 mmol/L (137-145)
[2019-03-01] MEDS: diphenhydrAMINE 25 MG CAP PO SCH ×3 (09:45→21:05)
[2019-03-01] MEDS: SPIRONOLACTONE 25 MG TAB PO SCH (09:45)
[2019-03-01] MEDS: HEPARIN SODIUM,PORCINE 5,000 UNIT/ML 1 ML VIAL SQ SCH ×2 (09:45→21:12)
[2019-03-01] MEDS: CITALOPRAM HYDROBROMIDE 20 MG TAB PO SCH (09:45)
[2019-03-01] MEDS: POTASSIUM CHLORIDE ER 10 MEQ TAB.ER.PRT PO SCH (09:45)
[2019-03-01] MEDS: INSULIN ASPART (NovoLOG) 100 UNIT/ML VIAL SQ SCH ×4 (09:45→21:13)
[2019-03-01] MEDS: oxyCODONE-APAP 10-325MG 1 EACH TAB PO SCH ×4 (09:46→21:06)
[2019-03-01] MEDS: FAMOTIDINE 20 MG/2 ML VIAL IV SCH ×2 (09:46→21:08)
[2019-03-01] MEDS: DOXYCYCLINE 100 MG CAP PO SCH ×2 (09:46→21:06)
[2019-03-01] MEDS: ALPRAZolam 0.5 MG TAB PO SCH ×3 (09:46→21:06)
[2019-03-01 11:26] LABS: Glucose,Whole Blood 194 mg/dL (75-99)
--- NOTE | 2019-03-01 11:52 | P.PN ---
Subjective This is a pleasant 44 years old female with past medical history of fibromyalgia, pneumonia, achalasia, dysphagia, chronic back pain with herniated disc, bilateral carpal tunnel syndrome, history of COPD hysterectomy,. He presents with dyspnea and productive cough for 3 days. Associated with a brown phlegm. Patient denies chest pain however she has chronic back pain from her fibromyalgia. Patient was not on home oxygen or steroids. Patient states she has multiple drug ALLERGY however when asked her she told me she has taken Rocephin before with no ALLERGIC reaction. Patient has been afebrile, mildly tachycardic at 106, blood pressure 133/74 and see saturation 95% on 3 L. Labs showing mild leukocytosis of 13.7, sodium 135, glucagon 0.7. Urine is cloudy. Renal CT without contrast was negative for kidney stone or obstruction. Showing small right pleural effusion is mild infiltrate and atelectasis of the right lung base. Chest x-ray showing new infiltrate in the right upper lung. Vision was started on normal saline at 100 mL/h and doxycycline antibiotic. 02/28/2019 Patient is awake but she still have some dyspnea and wheezing with slight improvement but patient states she is in the right direction. She denies chest pain or other symptoms. No diarrhea. She is alert and diet well. She is hemodynamically stable and she is saturating 96% on 2 L. Her leukocytosis resolved. She started to ceftriaxone well. Pulmonary and infectious disease input is appreciated. Patient remains on broad-spectrum antibiotics of ceftr iaxone and doxycycline, continue with bronchodilators and steroids while cutting down on IV fluids. 03/01/2019 Patient dyspnea and wheezing is improving gradually, she still have some scattered wheezing but she herself is a little better than compared to yesterday. Vitals stable and she is saturating 99% on 2 L. CBC, BMP were unremarkable sugar is controlled. Discussed the case with pulmonary team. Possible discharge in 24-48 hours. Objective - Vital Signs Vital signs: Vital Signs Temp 97.8 F 03/01/19 07:00 Pulse 80 03/01/19 11:13 Resp 15 03/01/19 08:00 BP 149/64 03/01/19 07:00 Pulse Ox 99 03/01/19 07:00 Intake & Output 02/28/19 03/01/19 03/01/19 18:59 06:59 18:59 Intake Total 887 Balance 887 Intake: Oral 887 Other: Voiding Method Toilet # Voids 3 2 - Exam GENERAL: The patient is alert and oriented x3, not in any acute distress. Well developed, well nourished. HEENT: Pupils are round and equally reacting to light. EOMI. No scleral icterus. No conjunctival pallor. Normocephalic, atraumatic. No pharyngeal erythema. No thyromegaly. CARDIOVASCULAR: S1 and S2 present. No murmurs, rubs, or gallops. -PULMONARY: Chest is clear to auscultation, bilateral expiratory wheezing with prolonged expiration. Start crepitation especially in the right upper lung ABDOMEN: Soft, nontender, nondistended, normoactive bowel sounds. No palpable organomegaly. MUSCULOSKELETAL: No joint swelling or deformity. EXTREMITIES: No cyanosis, clubbing, or pedal edema. NEUROLOGICAL: Gross neurological examination did not reveal any focal deficits. SKIN: No rashes. - Labs CBC & Chem 7: 03/01/19 06:57 03/01/19 06:57 Labs: Abnormal Lab Results - Last 24 Hours (Table) 02/28/19 02/28/19 02/28/19 Range/Units 06:58 11:50 16:45 MCHC (31.0-37.0) g/dL Lymphocytes # (1.0-4.8) k/uL Carbon Dioxide (22-30) mmol/L Glucose (74-99) mg/dL POC Glucose (mg/dL) 140 H 125 H (75-99) mg/dL Hemoglobin A1c 6.3 H (4.0-6.0) % 02/28/19 03/01/19 03/01/19 Range/Units 20:32 06:57 06:57 MCHC 30.6 L (31.0-37.0) g/dL Lymphocytes # 0.8 L (1.0-4.8) k/uL Carbon Dioxide 32 H (22-30) mmol/L Glucose 157 H (74-99) mg/dL POC Glucose (mg/dL) 233 H (75-99) mg/dL Hemoglobin A1c (4.0-6.0) % 03/01/19 03/01/19 Range/Units 07:01 11:16 MCHC (31.0-37.0) g/dL Lymphocytes # (1.0-4.8) k/uL Carbon Dioxide (22-30) mmol/L Glucose (74-99) mg/dL POC Glucose (mg/dL) 146 H 194 H (75-99) mg/dL Hemoglobin A1c (4.0-6.0) % Microbiology - Last 24 Hours (Table) 02/27/19 16:33 Gram Stain - Preliminary Sputum Sputum Culture - Preliminary 02/25/19 20:36 Blood Culture - Preliminary Blood No Growth after 72 hours Assessment and Plan Assessment: Community-acquired pneumonia with right upper lobe infiltrate Leukocytosis, resolved COPD with acute exacerbation History of fibromyalgia History of achalasia and dysphagia Chronic back pain with herniated disc History of bilateral carpal tunnel syndrome History of hysterectomy Plan: This is a pleasant 44 years old female who presents with pneumonia and COPD. Continue with antibiotics, and ceftriaxone as patient told me she was taken that before with no problems. Send sputum for culture and sensitivity. Consult pulmonary and infectious disease. Check urine analysis. Follow-up WBC. Repeat chest x-ray. Labs and medication were reviewed.. Continue same treatment. Continue with symptomatic treatment. Resume home medication. Monitor lytes and vitals. DVT and GI prophylaxis. Further recommendations of the clinical course of the patient DVT prophylaxis: Subcutaneous heparin GI Prophylaxis: Pepcid Prognosis is guarded
--- NOTE | 2019-03-01 14:07 | PN ---
PROGRESS NOTE DATE OF SERVICE: 03/01/2019 REASON FOR FOLLOWUP: Pneumonia. INTERVAL HISTORY: The patient is currently afebrile. The patient has been breathing slightly comfortably. She did have a cough and bringing up sputum. No hemoptysis. No chest pain. No nausea, vomiting. No abdominal pain, no diarrhea. PHYSICAL EXAMINATION: Her blood pressure is 149/64, pulse of 76, temperature is 97.8. She is 99% on 2 L nasal cannula. General description is a middle-aged female lying in bed, in no distress. RESPIRATORY SYSTEM: Unlabored breathing. Coarse breath sounds bilaterally. HEART: S1, S2. Regular rate and rhythm. ABDOMEN: Soft, no tenderness. LABS: Hemoglobin is 12.1, white count of 7.8. BUN of 15, creatinine 0.60. Sputum culture repeat currently pending, blood culture negative. DIAGNOSTIC IMPRESSION AND PLAN: Patient admitted to the hospital with pneumonia, likely community-acquired. Patient to continue with Rocephin and doxycycline while waiting for the sputum culture to finalize to determine her discharge antibiotics. Continue supportive care. MMODL / IJN: [id number] /
[2019-03-01 16:49] LABS: Glucose,Whole Blood 136 mg/dL (75-99)
[2019-03-01 20:49] LABS: Glucose,Whole Blood 220 mg/dL (75-99)
[2019-03-01] MEDS: ZOLPIDEM 10 MG TAB PO SCH (21:05)
[2019-03-01] MEDS: QUEtiapine 50 MG TAB PO SCH (21:06)
[2019-03-01] MEDS: guaiFENesin 600 MG TABLET.ER PO PRN (22:54)
[2019-03-02] MEDS: SODIUM CHLORIDE 0.9% 1,000 ML IV SCH ×3 (03:28→23:21)
[2019-03-02] MEDS: methylPREDNISolone SOD SUCCI 125 MG/2 ML VIAL IV SCH ×4 (05:41→23:21)
[2019-03-02 07:12] LABS: Glucose,Whole Blood 155 mg/dL (75-99)
[2019-03-02] MEDS: IPRATROPIUM-ALBUTEROL 3 ML NEB INHALATION SCH ×5 (08:40→18:50)
[2019-03-02] MEDS: ALPRAZolam 0.5 MG TAB PO SCH ×3 (08:58→21:10)
[2019-03-02] MEDS: diphenhydrAMINE 25 MG CAP PO SCH ×3 (08:58→21:10)
[2019-03-02] MEDS: POTASSIUM CHLORIDE ER 10 MEQ TAB.ER.PRT PO SCH (08:58)
[2019-03-02] MEDS: SPIRONOLACTONE 25 MG TAB PO SCH (08:59)
[2019-03-02] MEDS: oxyCODONE-APAP 10-325MG 1 EACH TAB PO SCH ×4 (08:59→21:10)
[2019-03-02] MEDS: INSULIN ASPART (NovoLOG) 100 UNIT/ML VIAL SQ SCH ×4 (08:59→20:12)
[2019-03-02] MEDS: CITALOPRAM HYDROBROMIDE 20 MG TAB PO SCH (08:59)
[2019-03-02] MEDS: FAMOTIDINE 20 MG/2 ML VIAL IV SCH (09:00)
[2019-03-02] MEDS: DOXYCYCLINE 100 MG CAP PO SCH ×2 (09:00→20:12)
[2019-03-02] MEDS: HEPARIN SODIUM,PORCINE 5,000 UNIT/ML 1 ML VIAL SQ SCH ×2 (09:01→20:12)
--- NOTE | 2019-03-02 09:29 | P.PN ---
Subjective Progress Note Date: 03/02/19 Principal diagnosis: Acute right upper lobe pneumonia Acute COPD exacerbation Acute asthma Baseline chronic persistent asthma of severe category Sepsis and leukocytosis Possible urinary tract infection Obstructive sleep apnea and sleep disorder breathing 03/02/2019, patient seen evchavo examined during the rounds denies any chest pain still have shortness of breath and bilateral wheezing cough and congestion is slightly improved given the severity of wheezing patient will benefit from one more day of IV steroids and antibiotics, labs reviewed medications 03/01/2019, patient seen evchavo examined during the rounds labs reviewed medications reviewed and is still of ongoing cough congestion is present and wheezing has been has been admitted into the hospital as well with similar symptoms and complaints they have 3 cats at home for workup for ALLERGIC asthma This is a 44-year-old female with long-standing history of smoking 3 packs a day lately cut down to half to few cigarettes a day she presented with 3-4 day history of cough with brown sputum production as well as progressive shortness breath she has chronic pain syndrome and multiple drug ALLERGIES as well she is been noted to have right upper lobe infiltrate on x-ray she is been admitted into the hospital with broad-spectrum antibiotics breathing treatments steroids and due to severe ALLERGY she is on limited options for treatment, still have ongoing wheezing or rhonch Objective - Vital Signs Vital signs: Vital Signs Temp 97.5 F L 03/02/19 01:54 Pulse 88 03/02/19 08:50 Resp 20 03/02/19 03:18 BP 150/78 03/02/19 01:54 Pulse Ox 92 L 03/02/19 01:54 Intake & Output 03/01/19 03/02/19 03/02/19 18:59 06:59 18:59 Intake Total 1500 Balance 1500 Intake: Intake, IV Titration 1250 Amount Sodium Chloride 0.9% 1, 1200 000 ml @ 100 mls/hr IV . Q10H [facility] Rx#:[id number] cefTRIAXone 1 gm In 50 Sodium Chloride 0.9% 50 ml @ 100 mls/hr IVPB Q12HR [facility] Rx#:[id number] Oral 250 Other: Voiding Method Toilet # Voids 3 2 - Exam - Constitutional General appearance: disheveled, morbidly obese - EENT Eyes: anicteric sclerae, EOMI, PERRLA, dentition normal, normal appearance ENT: normal oropharynx Ears: bilateral: normal - Neck Carotids: bilateral: upstroke normal Thyroid: bilateral: normal size - Respiratory Respiratory: bilateral: diminished, rhonchi, wheezing, prolonged expiration, negative: CTA, dullness, rales - Cardiovascular Rhythm: regular Heart sounds: normal: S1, S2 - Gastrointestinal General gastrointestinal: distended, normal bowel sounds, soft - Integumentary Integumentary: normal turgor - Neurologic Neurologic: CNII-XII intact - Musculoskeletal Musculoskeletal: gait normal, generalized weakness, strength equal bilaterally - Psychiatric Psychiatric: A&O x's 3, appropriate affect, intact judgment & insight - Labs CBC & Chem 7: 03/01/19 06:57 03/01/19 06:57 Labs: Abnormal Lab Results - Last 24 Hours (Table) 03/01/19 03/01/19 03/01/19 Range/Units 06:57 11:16 16:47 POC Glucose (mg/dL) 194 H 136 H (75-99) mg/dL IgE 699.00 H (0.00-114.00) IU/mL 03/01/19 03/02/19 Range/Units 20:48 07:10 POC Glucose (mg/dL) 220 H 155 H (75-99) mg/dL IgE (0.00-114.00) IU/mL Microbiology - Last 24 Hours (Table) 02/25/19 20:36 Blood Culture - Preliminary Blood No Growth after 96 hours Assessment and Plan Assessment: Acute right upper lobe pneumonia Acute COPD exacerbation Acute asthma and asthmatic bronchitis Probable baseline chronic persistent asthma/ALLERGY asthma Sepsis and leukocytosis Possible urinary tract infection Obstructive sleep apnea and sleep disorder breathing Plan: Broad-spectrum antibiotics Bronchodilators IV steroids Labs for ALLERGIC asthma Follow-up on Sputum for Gram stain and culture Further recommendations pending plan of care as per clinical response of the patient Patient will likely need a sleep study on outpatient basis Time with Patient: Greater than 30
[2019-03-02 11:56] LABS: Glucose,Whole Blood 214 mg/dL (75-99)
--- NOTE | 2019-03-02 13:51 | P.PN ---
Subjective This is a pleasant 44 years old female with past medical history of fibromyalgia, pneumonia, achalasia, dysphagia, chronic back pain with herniated disc, bilateral carpal tunnel syndrome, history of COPD hysterectomy,. He presents with dyspnea and productive cough for 3 days. Associated with a brown phlegm. Patient denies chest pain however she has chronic back pain from her fibromyalgia. Patient was not on home oxygen or steroids. Patient states she has multiple drug ALLERGY however when asked her she told me she has taken Rocephin before with no ALLERGIC reaction. Patient has been afebrile, mildly tachycardic at 106, blood pressure 133/74 and see saturation 95% on 3 L. Labs showing mild leukocytosis of 13.7, sodium 135, glucagon 0.7. Urine is cloudy. Renal CT without contrast was negative for kidney stone or obstruction. Showing small right pleural effusion is mild infiltrate and atelectasis of the right lung base. Chest x-ray showing new infiltrate in the right upper lung. Vision was started on normal saline at 100 mL/h and doxycycline antibiotic. 02/28/2019 Patient is awake but she still have some dyspnea and wheezing with slight improvement but patient states she is in the right direction. She denies chest pain or other symptoms. No diarrhea. She is alert and diet well. She is hemodynamically stable and she is saturating 96% on 2 L. Her leukocytosis resolved. She started to ceftriaxone well. Pulmonary and infectious disease input is appreciated. Patient remains on broad-spectrum antibiotics of ceftr iaxone and doxycycline, continue with bronchodilators and steroids while cutting down on IV fluids. 03/01/2019 Patient dyspnea and wheezing is improving gradually, she still have some scattered wheezing but she herself is a little better than compared to yesterday. Vitals stable and she is saturating 99% on 2 L. CBC, BMP were unremarkable sugar is controlled. Discussed the case with pulmonary team. Possible discharge in 24-48 hours. 03/02/2019 Patient remains somewhat dyspneic with significant wheezing on her chest and both sides although it's improving too considerable extent. Discussed the case with pulmonary team, patient is not ready for discharge today. Continue with the same treatment for now. Follow-up vitals. Sugar controlled Possible discharge in the 24-48 hours. Objective - Vital Signs Vital signs: Vital Signs Temp 98.0 F 03/02/19 08:00 Pulse 84 03/02/19 13:49 Resp 20 03/02/19 08:00 BP 150/86 03/02/19 08:00 Pulse Ox 96 03/02/19 08:00 Intake & Output 03/01/19 03/02/19 03/02/19 18:59 06:59 18:59 Intake Total 1500 Balance 1500 Intake: Intake, IV Titration 1250 Amount Sodium Chloride 0.9% 1, 1200 000 ml @ 100 mls/hr IV . Q10H [facility] Rx#:[id number] cefTRIAXone 1 gm In 50 Sodium Chloride 0.9% 50 ml @ 100 mls/hr IVPB Q12HR [facility] Rx#:[id number] Oral 250 Other: Voiding Method Toilet # Voids 3 2 - Exam GENERAL: The patient is alert and oriented x3, not in any acute distress. Well developed, well nourished. HEENT: Pupils are round and equally reacting to light. EOMI. No scleral icterus. No conjunctival pallor. Normocephalic, atraumatic. No pharyngeal erythema. No thyromegaly. CARDIOVASCULAR: S1 and S2 present. No murmurs, rubs, or gallops. -PULMONARY: Chest is clear to auscultation, bilateral expiratory wheezing with prolonged expiration. Start crepitation especially in the right upper lung ABDOMEN: Soft, nontender, nondistended, normoactive bowel sounds. No palpable organomegaly. MUSCULOSKELETAL: No joint swelling or deformity. EXTREMITIES: No cyanosis, clubbing, or pedal edema. NEUROLOGICAL: Gross neurological examination did not reveal any focal deficits. SKIN: No rashes. - Labs CBC & Chem 7: 03/01/19 06:57 03/01/19 06:57 Labs: Abnormal Lab Results - Last 24 Hours (Table) 03/01/19 03/01/19 03/01/19 Range/Units 06:57 16:47 20:48 POC Glucose (mg/dL) 136 H 220 H (75-99) mg/dL IgE 699.00 H (0.00-114.00) IU/mL 03/02/19 03/02/19 Range/Units 07:10 11:54 POC Glucose (mg/dL) 155 H 214 H (75-99) mg/dL IgE (0.00-114.00) IU/mL Microbiology - Last 24 Hours (Table) 02/27/19 16:33 Gram Stain - Final Sputum Sputum Culture - Final 02/25/19 20:36 Blood Culture - Preliminary Blood No Growth after 96 hours Assessment and Plan Assessment: Community-acquired pneumonia with right upper lobe infiltrate Leukocytosis, resolved COPD with acute exacerbation History of fibromyalgia History of achalasia and dysphagia Chronic back pain with herniated disc History of bilateral carpal tunnel syndrome History of hysterectomy Plan: This is a pleasant 44 years old female who presents with pneumonia and COPD. Continue with antibiotics, and ceftriaxone as patient told me she was taken that before with no problems. Send sputum for culture and sensitivity. Consult pulmonary and infectious disease. Check urine analysis. Follow-up WBC. Repeat chest x-ray. Labs and medication were reviewed.. Continue same treatment. Continue with symptomatic treatment. Resume home medication. Monitor lytes and vitals. DVT and GI prophylaxis. Further recommendations of the clinical course of the patie nt DVT prophylaxis: Subcutaneous heparin GI Prophylaxis: Pepcid Prognosis is guarded
[2019-03-02 14:46] VITALS: BMI 45.5
--- NOTE | 2019-03-02 15:34 | PN ---
PROGRESS NOTE DATE OF SERVICE: 03/02/2019 REASON FOR FOLLOWUP: Pneumonia. INTERVAL HISTORY: The patient is currently afebrile. The patient's breathing has improved. She continues to have significant cough and is bringing up some brown sputum but no hemoptysis. No chest pain. No abdominal pain. No diarrhea. PHYSICAL EXAMINATION: On examination, her blood pressure is 150/86, pulse of 64, temperature 98. She is 96% on 2 L nasal cannula. General description is a middle-aged female lying in bed in no distress. RESPIRATORY SYSTEM: Unlabored breathing with decreased intensity of breath sounds. No wheeze. HEART: S1, S2. Regular rate and rhythm. ABDOMEN: Soft. No tenderness. LABS: No new labs have been obtained today. Sputum culture showing usual respiratory aroldo. DIAGNOSTIC IMPRESSION AND PLAN: Patient admitted to hospital with pneumonia, likely community-acquired. Sputum has been negative for resistant pathogen. Overall clinically responding to the doxycycline and Rocephin. Plan to finish therapy with oral Ceftin. Continue with supportive care. MMODL / IJN: [id number] /
[2019-03-02 16:33] LABS: Glucose,Whole Blood 156 mg/dL (75-99)
[2019-03-02 20:06] LABS: Glucose,Whole Blood 214 mg/dL (75-99)
[2019-03-02] MEDS: ZOLPIDEM 10 MG TAB PO SCH (20:12)
[2019-03-02] MEDS: QUEtiapine 50 MG TAB PO SCH (20:12)
[2019-03-02] MEDS: FAMOTIDINE 20 MG TAB PO SCH (20:12)
[2019-03-02] MEDS: guaiFENesin 600 MG TABLET.ER PO PRN (23:09)
[2019-03-03] MEDS ORDERED: MORPHINE SULFATE 2 MG/ML SYRINGE IVP STA (00:41)
[2019-03-03] MEDS: methylPREDNISolone SOD SUCCI 125 MG/2 ML VIAL IV SCH ×2 (05:13→12:14)
[2019-03-03 07:27] LABS: Glucose,Whole Blood 174 mg/dL (75-99)
[2019-03-03] MEDS: HEPARIN SODIUM,PORCINE 5,000 UNIT/ML 1 ML VIAL SQ SCH (07:34)
[2019-03-03] MEDS: INSULIN ASPART (NovoLOG) 100 UNIT/ML VIAL SQ SCH ×2 (07:35→12:13)
[2019-03-03] MEDS: diphenhydrAMINE 25 MG CAP PO SCH ×2 (07:36→14:57)
[2019-03-03] MEDS: CITALOPRAM HYDROBROMIDE 20 MG TAB PO SCH (07:36)
[2019-03-03] MEDS: ALPRAZolam 0.5 MG TAB PO SCH ×2 (07:37→14:57)
[2019-03-03] MEDS: oxyCODONE-APAP 10-325MG 1 EACH TAB PO SCH ×2 (07:37→12:15)
[2019-03-03] MEDS: DOXYCYCLINE 100 MG CAP PO SCH (07:37)
[2019-03-03] MEDS: POTASSIUM CHLORIDE ER 10 MEQ TAB.ER.PRT PO SCH (07:37)
[2019-03-03] MEDS: FAMOTIDINE 20 MG TAB PO SCH (07:37)
[2019-03-03] MEDS: SPIRONOLACTONE 25 MG TAB PO SCH (07:37)
[2019-03-03] MEDS: SODIUM CHLORIDE 0.9% 1,000 ML IV SCH (07:38)
[2019-03-03 07:41] VITALS: RESP 17
[2019-03-03] MEDS: IPRATROPIUM-ALBUTEROL 3 ML NEB INHALATION SCH ×3 (09:38→15:56)
[2019-03-03] MEDS ORDERED: oxyCODONE-APAP 10-325MG 1 EACH TAB PO ONE (10:36)
--- NOTE | 2019-03-03 11:09 | P.PN ---
Subjective Progress Note Date: 03/03/19 Principal diagnosis: Acute right upper lobe pneumonia Acute COPD exacerbation Acute asthma Baseline chronic persistent asthma of severe category Sepsis and leukocytosis Possible urinary tract infection Obstructive sleep apnea and sleep disorder breathing 03/03/2019, patient seen eval examined during the rounds labs reviewed medications reviewed care plan discussed with the patient cough congestion is slightly better compared to yesterday 03/02/2019, patient seen eval examined during the rounds denies any chest pain still have shortness of breath and bilateral wheezing cough and congestion is slightly improved given the severity of wheezing patient will benefit from one more day of IV steroids and antibiotics, labs reviewed medications 03/01/2019, patient seen eval examined during the rounds labs reviewed medications reviewed and is still of ongoing cough congestion is present and wheezing has been has been admitted into the hospital as well with similar sym ptoms and complaints they have 3 cats at home for workup for ALLERGIC asthma This is a 44-year-old female with long-standing history of smoking 3 packs a day lately cut down to half to few cigarettes a day she presented with 3-4 day history of cough with brown sputum production as well as progressive shortness breath she has chronic pain syndrome and multiple drug ALLERGIES as well she is been noted to have right upper lobe infiltrate on x-ray she is been admitted into the hospital with broad-spectrum antibiotics breathing treatments steroids and due to severe ALLERGY she is on limited options for treatment, still have ongoing wheezing or rhonch Objective - Vital Signs Vital signs: Vital Signs Temp 97.8 F 03/03/19 07:00 Pulse 88 03/03/19 09:51 Resp 17 03/03/19 07:00 BP 184/99 03/03/19 07:00 Pulse Ox 97 03/03/19 02:09 Intake & Output 03/02/19 03/03/19 03/03/19 18:59 06:59 18:59 Intake Total 250 1300 Balance 250 1300 Weight 105.8 kg Intake: Intake, IV Titration 1300 Amount Sodium Chloride 0.9% 1, 1150 000 ml @ 100 mls/hr IV . Q10H [facility] Rx#:[id number] cefTRIAXone 1 gm In 150 Sodium Chloride 0.9% 50 ml @ 100 mls/hr IVPB Q12HR [facility] Rx#:[id number] Oral 250 Other: Voiding Method Toilet # Voids 3 - Exam - Constitutional General appearance: disheveled, morbidly obese - EENT Eyes: anicteric sclerae, EOMI, PERRLA, dentition normal, normal appearance ENT: normal oropharynx Ears: bilateral: normal - Neck Carotids: bilateral: upstroke normal Thyroid: bilateral: normal size - Respiratory Respiratory: bilateral: diminished, rhonchi, wheezing, prolonged expiration, negative: CTA, dullness, rales - Cardiovascular Rhythm: regular Heart sounds: normal: S1, S2 - Gastrointestinal General gastrointestinal: distended, normal bowel sounds, soft - Integumentary Integumentary: normal turgor - Neurologic Neurologic: CNII-XII intact - Musculoskeletal Musculoskeletal: gait normal, generalized weakness, strength equal bilaterally - Psychiatric Psychiatric: A&O x's 3, appropriate affect, intact judgment & insight - Labs CBC & Chem 7: 03/01/19 06:57 03/01/19 06:57 Labs: Abnormal Lab Results - Last 24 Hours (Table) 03/02/19 03/02/19 03/02/19 Range/Units 11:54 16:32 20:04 POC Glucose (mg/dL) 214 H 156 H 214 H (75-99) mg/dL 03/03/19 Range/Units 07:25 POC Glucose (mg/dL) 174 H (75-99) mg/dL Microbiology - Last 24 Hours (Table) 02/25/19 20:36 Blood Culture - Preliminary Blood No Growth after 120 hours 02/27/19 16:33 Gram Stain - Final Sputum Sputum Culture - Final Assessment and Plan Assessment: Acute right upper lobe pneumonia Acute COPD exacerbation Acute asthma and asthmatic bronchitis Probable baseline chronic persistent asthma/ALLERGY asthma Sepsis and leukocytosis Possible urinary tract infection Obstructive sleep apnea and sleep disorder breathing Plan: Broad-spectrum antibiotics, can be changed to oral with the time of discharge Bronchodilators IV steroids, and can be changed to oral at the time of discharge Labs for ALLERGIC asthma Follow-up on Sputum for Gram stain and culture final ID normal respiratory aroldo Further recommendations pending plan of care as per clinical response of the patient Patient will likely need a sleep study on outpatient basis Time with Patient: Greater than 30
[2019-03-03 11:44] LABS: Glucose,Whole Blood 145 mg/dL (75-99)
[2019-03-03 14:48] VITALS: BP 180/102; PULSE 78; TEMP 97.7
--- NOTE | 2019-03-03 18:29 | PN ---
PROGRESS NOTE DATE OF SERVICE: 03/03/2019. REASON FOR FOLLOWUP: Pneumonia. INTERVAL HISTORY: The patient is currently afebrile. Patient is breathing more comfortably. Patient denies having any chest pain or shortness of breath. Occasional cough which is less productive now. No nausea, no vomiting. No abdominal pain and no diarrhea. PHYSICAL EXAMINATION: Blood pressure 184/99 with a pulse of 87, temperature 97.8. General description is a middle aged female lying in bed in no distress. Respiratory system: Unlabored breathing with decreased breath sounds at the bases. No wheeze. Heart S1, S2. Regular rate and rhythm. ABDOMEN: Soft. No tenderness. LABS: Sputum has been usual respiratory aroldo. DIAGNOSTIC IMPRESSION AND PLAN: Patient admitted to the hospital with pneumonia likely community-acquired as the patient showed clinical improvement on Rocephin, doxycycline. Sputum has been usual respiratory aroldo. Blood cultures negative to finish therapy with a short course of oral Ceftin. Continue supportive care. MMODL / IJN: [id number] /
--- NOTE | 2019-03-06 10:22 | CDI ---
Documentation Clarification Form Date: 03/06/2019 10:07:07 AM From: Milka Montemayor Phone: If you have a question about this query, please contact Alvina Root Signals Officer at [phone] between 8am and 5pm. Admit Date: 02/25/2019 9:56:00 PM Patient Name: Yolie Yeboah Visit Number: [id number] Discharge Date: 03/03/2019 4:35:00 PM ATTENTION: The Clinical Documentation Specialists (CDI) and [facility] Coding Staff appreciate your assistance in clarifying documentation. Please respond to the clarification below the line at the bottom and electronically sign. The CDI & [facility] Coding staff will review the response and follow-up if needed. Please note: Queries are made part of the Legal Health Record. If you have any questions, please contact the author of this message via ITS. Dr. Hinton Sheet The patient presented SOB, pneumonia, exacerbation of asthma. Pulmonary consult documents leukocytosis with sepsis, which is documented in PN 03/01, 03/02, . Please clarify if patient had sepsis or was it ruled out. History/Risk Factors: Pneumonia WBC 13.7 Lactic acid: 0.7 Vitals signs on admission: 99.4F, 107 bpm, 20 141/86 89% RA Treatment: broad spectrum antibiotics ID Consult: pneumonia multiple antibiotic allergies Antibiotics: Rocephin with Doxycyclin In your professional opinion, please clarify if these findings signify one of the following conditions, whether the condition is POA, and cause, if known: Condition Sepsis ruled out SIRS, without underlying infectious process Sepsis Severe Sepsis Septic Shock Other, please specify Unable to determine Present on Admission Yes No SIRS Criteria (2 or more of the following may indicate SIRS): -Temperature < 96.8F (36C) or > 101.0F (38.3C) -Heart Rate > 90 bpm -Respiratory Rate > 20 breaths/min or PaCO2 < 32 mmHg -White Blood Cell Count > 12,000 or < 4,000 cells/mm3 or > 10% bands -Lactate >2.0 mmol/L (>4.0 is equivalent to septic shock) pt with SIRS upon admission with leukocytosis , low grade fever and tachycardia and tachypnea MTDD
[2019-03-07 14:26] LABS: Alternaria Alternata IgG 7.1 mcg/mL (< 13.6); Aspergillus fumigatus IgG Not detected (Not detected); Aureobasidium pullulans IgG 4.4 mcg/mL (< 13.6); Phoma ssp. IgG 7.1 mcg/mL (< 6.6); Saccaharomospora viridis Not detected (Not detected); Saccaharopoly. rectivirgula Not detected (Not detected)
--- NOTE | 2019-03-13 20:08 | P.DS ---
Providers Date of admission: 02/25/19 21:56 Attending physician: Nina Mora MD Consults: 02/27/19 11:40 Consult Physician Urgent Consulting Provider: Elton Mcmillan Consult Reason/Comments: pneumonia and COPD Do you want consulting provider notified?: Yes Consult Physician Urgent Consulting Provider: Anisha Amanda Consult Reason/Comments: pneumonia with drug allergy Do you want consulting provider notified?: Yes Primary care physician: Kaleb Huston [facility] Course: Diagnoses: Community-acquired pneumonia with right upper lobe infiltrate Leukocytosis, resolved COPD with acute exacerbation History of fibromyalgia History of achalasia and dysphagia Chronic back pain with herniated disc History of bilateral carpal tunnel syndrome History of hysterectomy Hospital course This is a pleasant 44 years old female with past medical history of fibromyalgia, pneumonia, achalasia, dysphagia, chronic back pain with herniated disc, bilateral carpal tunnel syndrome, history of COPD, hysterectomy,. sHe presents with dyspnea and productive cough for 3 days. Patient found to have community-acquired pneumonia secondary to right upper lobe infiltrate, with acute COPD exacerbation. Patient has been evaluated by infectious and pulmonary status disease team and patient was treated with combination of antibiotics, bronchodilators and IV steroids as well as oxygen. Sputum culture was growing gram-positive cocci and gram-negative bacilli, however patient showed interval improvement while she was on ceftriaxone and doxycycline. On the day of discharge her symptoms are significantly improved with minimal dyspnea, no chest pain, coughing is significantly improved with symptomatic treatment. However patient will be discharged on home oxygen via nasal cannula about 3 L/m. No diarrhea, no change in urine or bowel habits. No abdominal pain, no nausea vomiting. No fever. Patient feels she is ready to go home. Patient was cleared by pulmonary and infectious disease team Problems and management plan were discussed with the patient and he verbalized understanding and acceptance Patient was found stable and can be discharged home however he needs follow-up as an outpatient. Appointments made for her PCP and camp advisor and patient agrees with these appointments and time and then told me she will follow-up. Gen: patient is a AAOx3, no distress CVS: S1-S2, RRR, no murmur Lungs: B/L CTA, no wheezing Abdomen: soft, no distention, no tenderness, positive bowel sounds Extremity: no leg edema or induration Time spent more than 35 minutes Plan - Discharge Summary Discharge Rx Participant: Yes New Discharge Prescriptions: No Action RX: Potassium Chloride [Klor-Con 8] 8 meq PO DAILY RX: Ipratropium/Albuterol Sulfate [Combivent Respimat Inhaler] 1 puff INHALATION RT-QID RX: Spironolactone [Aldactone] 25 mg PO DAILY RX: Ipratropium-Albuterol Nebulize [Duoneb 0.5 mg-3 mg/3 ml Soln] 3 ml INHALATION RT-BID PRN PRN Reason: Shortness Of Breath RX: Albuterol Inhaler [Ventolin Hfa Inhaler] 1 - 2 puff INHALATION RT-Q6H PRN PRN Reason: Shortness Of Breath RX: Citalopram Hydrobromide [CeleXA] 60 mg PO DAILY #9 tablet RX: Zolpidem [Ambien] 10 mg PO HS #3 tab RX: ALPRAZolam [Xanax] 0.5 mg PO TID #9 tab oxyCODONE-APAP 10-325MG [Percocet 10-325 mg] 1 tab PO QID Ondansetron [Zofran ODT] 4 mg PO Q8HR PRN #12 tab PRN Reason: Nausea And Vomiting diphenhydrAMINE [Benadryl] 50 mg PO TID QUEtiapine [SEROquel] 50 mg PO HS Discharge Medication List RX: Potassium Chloride [Klor-Con 8] 8 meq PO DAILY 01/06/14 [History] RX: Ipratropium/Albuterol Sulfate [Combivent Respimat Inhaler] 1 puff INHALATION RT-QID 07/26/15 [History] RX: Spironolactone [Aldactone] 25 mg PO DAILY 02/05/17 [History] RX: Albuterol Inhaler [Ventolin Hfa Inhaler] 1 - 2 puff INHALATION RT-Q6H PRN 12/10/18 [History] RX: Ipratropium-Albuterol Nebulize [Duoneb 0.5 mg-3 mg/3 ml Soln] 3 ml INHALATION RT-BID PRN 12/10/18 [History] RX: ALPRAZolam [Xanax] 0.5 mg PO TID #9 tab 12/13/18 [Rx] RX: Citalopram Hydrobromide [CeleXA] 60 mg PO DAILY #9 tablet 12/13/18 [Rx] RX: Zolpidem [Ambien] 10 mg PO HS #3 tab 12/13/18 [Rx] Ondansetron [Zofran ODT] 4 mg PO Q8HR PRN #12 tab 12/31/18 [Rx] oxyCODONE-APAP 10-325MG [Percocet 10-325 mg] 1 tab PO QID 12/31/18 [History] QUEtiapine [SEROquel] 50 mg PO HS 02/25/19 [History] diphenhydrAMINE [Benadryl] 50 mg PO TID 02/25/19 [History] Follow up Appointment(s)/Referral(s): [facility] [NON-STAFF] - As Needed (oxygen ) Kaleb Huston DO [Primary Care Provider] - 03/07/19 3:30 pm Elton Mcmillan MD [STAFF PHYSICIAN] - 03/20/19 11:30 am Activity/Diet/Wound Care/Special Instructions: cardiac diet activity is limited till you see your doctor Discharge Disposition: HOME SELF-CARE
== END 2019-03-03 16:35 | disposition home or self-care (01) | DRG 194 ==
LOC: EC 18:48 → 4SSUR 21:56
PROVIDERS: ADMIT Internal Medicine; ATTEND Internal Medicine
DX: J18.9 Pneumonia, unspecified organism (principal); J44.0 Chronic obstructive pulmonary disease with (acute) lower respiratory infection; J44.1 Chronic obstructive pulmonary disease with (acute) exacerbation; J45.901 Unspecified asthma with (acute) exacerbation; J98.11 Atelectasis; F17.210 Nicotine dependence, cigarettes, uncomplicated; F31.9 Bipolar disorder, unspecified; F41.9 Anxiety disorder, unspecified; F90.9 Attention-deficit hyperactivity disorder, unspecified type; G40.909 Epilepsy, unspecified, not intractable, without status epilepticus; G47.33 Obstructive sleep apnea (adult) (pediatric); G89.4 Chronic pain syndrome; I50.9 Heart failure, unspecified; K58.9 Irritable bowel syndrome, unspecified; M06.9 Rheumatoid arthritis, unspecified; M79.7 Fibromyalgia; R09.02 Hypoxemia; Z79.899 Other long term (current) drug therapy; Z86.73 Personal history of transient ischemic attack (TIA), and cerebral infarction without residual deficits; Z87.442 Personal history of urinary calculi; Z88.1 Allergy status to other antibiotic agents; Z90.710 Acquired absence of both cervix and uterus; Z88.2 Allergy status to sulfonamides; Z88.6 Allergy status to analgesic agent; Z91.041 Radiographic dye allergy status; Z88.5 Allergy status to narcotic agent; Z88.0 Allergy status to penicillin; Z91.013 Allergy to seafood; Z87.01 Personal history of pneumonia (recurrent); G43.909 Migraine, unspecified, not intractable, without status migrainosus; M54.9 Dorsalgia, unspecified; Z99.81 Dependence on supplemental oxygen; Z86.14 Personal history of Methicillin resistant Staphylococcus aureus infection
CPT/HCPCS: 36415; 71046; 74150; 80048; 81001; 82785; 82803; 83036; 83605; 85025; 86001; 86606; 86609; 87040; 87070; 87205; 93005; 94640; 94760; 96361; 96365; 96375; 99285

== ENCOUNTER 2019-03-05 18:52 | Emergency (ER) | payer MEDICARE ==
[2019-03-05 19:26] VITALS: TEMP 98.3
[2019-03-05] MEDS ORDERED: KETOROLAC 60 MG/2 ML VIAL IVP STA (19:52)
--- NOTE | 2019-03-05 20:00 | ED ---
General Adult HPI - General Source: patient, RN notes reviewed Mode of arrival: wheelchair Limitations: no limitations <Valdez Polanco - Last Filed: 03/05/19 20:51> <Valdez Olivares - Last Filed: 03/05/19 23:15> - General Chief complaint: Chest Pain Stated complaint: chest pain/being treated for pneumonia Time Seen by Provider: 03/05/19 19:20 - History of Present Illness Initial comments: This is a 44-year-old female who presents to the emergency department complaining that she has right-sided chest pain he she's had it ever since she was diagnosed with a pneumonia and admitted to the hospital. Patient states she was discharged on Tuesday but since 12:00 today the pain is gotten worse so she decided come back to the hospital. I asked the patient if the pain radiated down her shoulders into her arms because there she nursing notes indicated this patient states it's worse with movement of the arm does not radiate down the. Patient denies any shortness of breath or difficulty breathing. Patient denies any palpitations. Patient denies any fever chills currently. Patient states the pain is worse with deep inspiration. Patient denies headache patient denies any numbness weakness. Patient denies any lightheadedness or dizziness. (Valdez Polanco) - Related Data Home Medications Medication Instructions Recorded Confirmed Potassium Chloride [Klor-Con 8] 8 meq PO DAILY 01/06/14 03/05/19 Ipratropium/Albuterol Sulfate 1 puff INHALATION RT-QID 07/26/15 03/05/19 [Combivent Respimat Inhaler] Spironolactone [Aldactone] 25 mg PO DAILY 02/05/17 03/05/19 Albuterol Inhaler [Ventolin Hfa 1 - 2 puff INHALATION RT-Q6H PRN 12/10/18 03/05/19 Inhaler] Ipratropium-Albuterol Nebulize 3 ml INHALATION RT-BID PRN 12/10/18 03/05/19 [Duoneb 0.5 mg-3 mg/3 ml Soln] oxyCODONE-APAP 10-325MG [Percocet 1 tab PO QID 12/31/18 03/05/19 10-325 mg] QUEtiapine [SEROquel] 50 mg PO HS 02/25/19 03/05/19 diphenhydrAMINE [Benadryl] 50 mg PO TID 02/25/19 03/05/19 predniSONE See Taper PO DIRECTED 03/05/19 03/05/19 Previous Rx's Medication Instructions Recorded ALPRAZolam [Xanax] 0.5 mg PO TID #9 tab 12/13/18 Citalopram Hydrobromide [CeleXA] 60 mg PO DAILY #9 tablet 12/13/18 Zolpidem [Ambien] 10 mg PO HS #3 tab 12/13/18 Ondansetron [Zofran ODT] 4 mg PO Q8HR PRN #12 tab 12/31/18 Cefuroxime Axetil [Ceftin] 500 mg PO BID 5 Days #10 tab 03/03/19 guaiFENesin [Mucinex] 600 mg PO Q12HR PRN 5 Days #10 03/03/19 tablet.er Allergies Allergy/AdvReac Type Severity Reaction Status Date / Time adhesive Allergy Rash/Hives Verified 03/05/19 20:00 amoxicillin Allergy Anaphylaxis Verified 03/05/19 20:00 azithromycin [From Zithromax] Allergy Anaphylaxis Verified 03/05/19 20:00 cephalexin monohydrate Allergy Anaphylaxis Verified 03/05/19 20:00 [From Keflex] ciprofloxacin Allergy Anaphylaxis Verified 03/05/19 20:00 clindamycin Allergy Anaphylaxis Verified 03/05/19 20:00 Iodinated Contrast- Oral and Allergy Swelling Verified 03/05/19 20:00 IV Dye levofloxacin [From Levaquin] Allergy Rash/Hives Verified 03/05/19 20:00 NSAIDS (Non-Steroidal Allergy Rash/Hives Verified 03/05/19 20:00 Anti-Inflamma shellfish derived Allergy Anaphylaxis Verified 03/05/19 20:00 Sulfa (Sulfonamide Allergy Anaphylaxis Verified 03/05/19 20:00 Antibiotics) sulfamethoxazole Allergy Anaphylaxis Verified 03/05/19 20:00 [From Bactrim] tramadol Allergy Unknown Verified 03/05/19 20:00 trimethoprim [From Bactrim] Allergy Anaphylaxis Verified 03/05/19 20:00 Review of Systems ROS Other: All systems not noted in ROS Statement are negative. <Valdez Polanco - Last Filed: 03/05/19 20:51> ROS Other: All systems not noted in ROS Statement are negative. <MarshallValdez B - Last Filed: 03/05/19 23:15> ROS Statement: Those systems with pertinent positive or pertinent negative responses have been documented in the HPI. 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 IBS, cellulitis of the chin, History of Any Multi-Drug Resistant Organisms: MRSA Date of last positivie culture/infection: 07/2016 MDRO Source:: chin Past Surgical History: Section, Cholecystectomy, Hysterectomy, Tubal Ligation Additional Past Surgical History / Comment(s): oral surgery . Pancreas biopsy May 2015. Past Anesthesia/Blood Transfusion Reactions: No Reported Reaction Past Psychological History: ADD/ADHD, Anxiety, Bipolar, Depression Smoking Status: Current every day smoker Past Alcohol Use History: None Reported Past Drug Use History: Marijuana - Past Family History Father Family Medical History: No Reported History Additional Family Medical History / Comment(s): ADOPTED <Valdez Polanco - Last Filed: 03/05/19 20:51> General Exam Limitations: no limitations <Valdez Polanco - Last Filed: 03/05/19 20:51> General appearance: alert, in no apparent distress Head exam: Present: atraumatic, normocephalic, normal inspection Eye exam: Present: normal appearance, PERRL, EOMI. Absent: scleral icterus, conjunctival injection, periorbital swelling ENT exam: Present: normal exam, mucous membranes moist Neck exam: Present: normal inspection. Absent: tenderness, meningismus, lymphadenopathy Respiratory exam: Present: normal lung sounds bilaterally. Absent: respiratory distress, wheezes, rales, rhonchi, stridor Cardiovascular Exam: Present: regular rate, normal rhythm, normal heart sounds. Absent: systolic murmur, diastolic murmur, rubs, gallop, clicks GI/Abdominal exam: Present: soft, normal bowel sounds. Absent: distended, tenderness, guarding, rebound, rigid Extremities exam: Present: normal inspection, full ROM, normal capillary refill. Absent: tenderness, pedal edema, joint swelling, calf tenderness Back exam: Present: normal inspection Neurological exam: Present: alert, oriented X3, CN II-XII intact Psychiatric exam: Present: normal affect, normal mood Skin exam: Present: warm, dry, intact, normal color. Absent: rash <Valdez Olivares - Last Filed: 03/05/19 23:15> - General Exam Comments Initial Comments: GENERAL: Patient is well-developed and well-nourished. Patient is nontoxic and well- hydrated and is in mild distress. ENT: Neck is soft and supple. No significant lymphadenopathy is noted. Oropharynx is clear. Moist mucous membranes. Neck has full range of motion without elic iting any pain. EYES: The sclera were anicteric and conjunctiva were pink and moist. Extraocular movements were intact and pupils were equal round and reactive to light. Eyelids were unremarkable. PULMONARY: Unlabored respirations. Good breath sounds bilaterally. No audible rales rhonchi or wheezing was noted. CARDIOVASCULAR: There is a regular rate and rhythm without any murmurs gallops or rubs. ABDOMEN: Soft and nontender with normal bowel sounds. No palpable organomegaly was noted. There is no palpable pulsatile mass. SKIN: Skin is clear with no lesions or rashes and otherwise unremarkable. NEUROLOGIC: Patient is alert and oriented x3. Cranial nerves II through XII are grossly intact. Motor and sensory are also intact. Normal speech, volume and content. Symmetrical smile. MUSCULOSKELETAL: Normal extremities with adequate strength and full range of motion. LYMPHATICS: No significant lymphadenopathy is noted PSYCHIATRIC: Normal psychiatric evaluation. (Valdez Polanco) Course <Valdez Olivares - Last Filed: 03/05/19 23:15> Vital Signs 03/05/19 19:22 Temperature 98.3 F Pulse Rate 77 Respiratory 18 Rate Blood Pressure 130/75 O2 Sat by Pulse 93 L Oximetry - Reevaluation(s) Reevaluation #1: 03/05/19 23:15 Medical record is reviewed including prior hospitalization (Valdez Olivares) Reevaluation #2: 03/05/19 23:15 Symptoms improving (Valdez Olivares) Medical Decision Making - Lab Data Result diagrams: 03/05/19 20:10 03/05/19 20:10 <Valdez Polanco Last Filed: 03/05/19 20:51> - Lab Data Result diagrams: 03/05/19 20:10 03/05/19 20:10 - Radiology Data Radiology results: report reviewed (CTA chest is negative for acute disease), image reviewed <Valdez Olivares - Last Filed: 03/05/19 23:15> - Medical Decision Making EKG shows normal sinus rhythm at 74 bpm MA interval 128 QRSs 80 QT interval is 420 QTC is 466 per patient's EKG shows no ST segment elevation or depression or T wave abnormalities are noted. Chest x-ray shows improvement of the infiltrate. Dr. Olivares be taking over the care of this patient at 9 PM (Valdez Polanco) 44 female the ER for evasive chest pain nonspecific troponin and CTA are negative for acute disease. Pain is controlled patient can be discharged home (Valdez Olivares) - Lab Data Lab Results 03/05/19 03/05/19 03/05/19 Range/Units 20:10 20:10 20:10 WBC 11.0 H (3.8-10.6) k/uL RBC 5.30 (3.80-5.40) m/uL Hgb 13.6 (11.4-16.0) gm/dL Hct 43.7 (34.0-46.0) % MCV 82.5 (80.0-100.0) fL MCH 25.6 (25.0-35.0) pg MCHC 31.0 (31.0-37.0) g/dL RDW 13.9 (11.5-15.5) % Plt Count 499 H (150-450) k/uL Neutrophils % 78 % Lymphocytes % 15 % Monocytes % 5 % Eosinophils % 1 % Basophils % 0 % Neutrophils # 8.6 H (1.3-7.7) k/uL Lymphocytes # 1.7 (1.0-4.8) k/uL Monocytes # 0.5 (0-1.0) k/uL Eosinophils # 0.1 (0-0.7) k/uL Basophils # 0.0 (0-0.2) k/uL PT 10.2 (9.0-12.0) sec INR 0.9 (<1.2) APTT 21.7 L (22.0-30.0) sec Sodium 136 L (137-145) mmol/L Potassium 4.2 (3.5-5.1) mmol/L Chloride 90 L (98-107) mmol/L Carbon Dioxide 40 H (22-30) mmol/L Anion Gap 6 mmol/L BUN 18 H (7-17) mg/dL Creatinine 0.68 (0.52-1.04) mg/dL Est GFR (CKD-EPI)AfAm >90 (>60 ml/min/1.73 sqM) Est GFR (CKD-EPI)NonAf >90 (>60 ml/min/1.73 sqM) Glucose 126 H (74-99) mg/dL Calcium 9.0 (8.4-10.2) mg/dL Magnesium 2.0 (1.6-2.3) mg/dL Total Bilirubin 0.3 (0.2-1.3) mg/dL AST 17 (14-36) U/L ALT 47 (9-52) U/L Alkaline Phosphatase 82 (38-126) U/L Troponin I (0.000-0.034) ng/mL Total Protein 6.3 (6.3-8.2) g/dL Albumin 3.6 (3.5-5.0) g/dL 03/05/19 Range/Units 20:10 WBC (3.8-10.6) k/uL RBC (3.80-5.40) m/uL Hgb (11.4-16.0) gm/dL Hct (34.0-46.0) % MCV (80.0-100.0) fL MCH (25.0-35.0) pg MCHC (31.0-37.0) g/dL RDW (11.5-15.5) % Plt Count (150-450) k/uL Neutrophils % % Lymphocytes % % Monocytes % % Eosinophils % % Basophils % % Neutrophils # (1.3-7.7) k/uL Lymphocytes # (1.0-4.8) k/uL Monocytes # (0-1.0) k/uL Eosinophils # (0-0.7) k/uL Basophils # (0-0.2) k/uL PT (9.0-12.0) sec INR (<1.2) APTT (22.0-30.0) sec Sodium (137-145) mmol/L Potassium (3.5-5.1) mmol/L Chloride (98-107) mmol/L Carbon Dioxide (22-30) mmol/L Anion Gap mmol/L BUN (7-17) mg/dL Creatinine (0.52-1.04) mg/dL Est GFR (CKD-EPI)AfAm (>60 ml/min/1.73 sqM) Est GFR (CKD-EPI)NonAf (>60 ml/min/1.73 sqM) Glucose (74-99) mg/dL Calcium (8.4-10.2) mg/dL Magnesium (1.6-2.3) mg/dL Total Bilirubin (0.2-1.3) mg/dL AST (14-36) U/L ALT (9-52) U/L Alkaline Phosphatase (38-126) U/L Troponin I <0.012 (0.000-0.034) ng/mL Total Protein (6.3-8.2) g/dL Albumin (3.5-5.0) g/dL Disposition <Valdez Polanco - Last Filed: 03/05/19 20:51> Is patient prescribed a controlled substance at d/c from ED?: No <Valdez Olivares - Last Filed: 03/05/19 23:15> Clinical Impression: COPD exacerbation, Pneumonia, Atypical chest pain Disposition: HOME SELF-CARE Condition: Good Instructions (If sedation given, give patient instructions): Chest Pain (ED) Referrals: Kaleb Huston DO [Primary Care Provider] - 1-2 days
--- NOTE | 2019-03-05 20:29 | XR ---
EXAMINATION TYPE: XR chest 2V DATE OF EXAM: 03/05/2019 COMPARISON: 02/28/2019 HISTORY: Chest pain TECHNIQUE: Frontal and lateral views of the chest are obtained. FINDINGS: There is blunting of costophrenic angles. There is some patchy linear density at the right lung base. There is no heart failure. Heart size is normal. There is some infiltrate at the right pu lmonary hilum. There are chest leads. IMPRESSION: There is right side roscoe Hilar right upper lobe infiltrate improved compared to last exa m. There is some pleural reaction and atelectasis at the lung bases improved on the left side and not significantly different on the right side compared to old exam. No heart failure.
[2019-03-05 20:32] LABS: ALT 47 U/L (9-52); AST 17 U/L (14-36); African American GFR (CKD) >90 (>60 ml/min/1.73 sqM); Albumin 3.6 g/dL (3.5-5.0); Alkaline Phosphatase 82 U/L (38-126); Anion Gap 6 mmol/L; Blood Urea Nitrogen 18 mg/dL (7-17); Carbon Dioxide 40 mmol/L (22-30); Chloride 90 mmol/L (98-107); Glucose 126 mg/dL (74-99); Non-African American GFR(CKD) >90 (>60 ml/min/1.73 sqM); Potassium 4.2 mmol/L (3.5-5.1); Sodium 136 mmol/L (137-145); Total Bilirubin 0.3 mg/dL (0.2-1.3); Total Protein 6.3 g/dL (6.3-8.2)
[2019-03-05 20:37] LABS: Basophils % (A) 0 %; Eosinophils # (A) 0.1 k/uL (0-0.7); Eosinophils % (A) 1 %; HCT 43.7 % (34.0-46.0); HGB 13.6 gm/dL (11.4-16.0); Lymphocytes # (A) 1.7 k/uL (1.0-4.8); Lymphocytes % (A) 15 %; MCH 25.6 pg (25.0-35.0); MCV 82.5 fL (80.0-100.0); Mean Platelet Volume 6.3; Monocytes # (A) 0.5 k/uL (0-1.0); Monocytes % (A) 5 %; Neutrophils # (A) 8.6 k/uL (1.3-7.7); Neutrophils % (A) 78 %; Platelet Count 499 k/uL (150-450); RDW 13.9 % (11.5-15.5)
[2019-03-05 20:40] LABS: INR 0.9 (<1.2); Prothrombin Time 10.2 sec (9.0-12.0)
[2019-03-05 20:45] LABS: Partial Thromboplastin Time 21.7 sec (22.0-30.0)
[2019-03-05] MEDS ORDERED: MORPHINE SULFATE 4 MG/ML SYRINGE IVP STA ×2 (20:53→23:15)
[2019-03-05] MEDS ORDERED: ONDANSETRON 4 MG/2 ML VIAL IVP STA (21:06)
[2019-03-05] MEDS ORDERED: FAMOTIDINE 20 MG/2 ML VIAL IV STA (21:25)
[2019-03-05] MEDS ORDERED: methylPREDNISolone SOD SUCCI 125 MG/2 ML VIAL IV STA (21:25)
[2019-03-05] MEDS ORDERED: diphenhydrAMINE 50 MG/ML 1 ML VIAL IVP STA (21:25)
--- NOTE | 2019-03-05 22:46 | CT ---
EXAM: CT Angiography Chest With Intravenous Contrast CLINICAL HISTORY: ITS.REASON CT Reason: Pain TECHNIQUE: Axial computed tomographic angiography images of the chest with intravenous contrast using pulmonary embolism protocol. CTDI is 21.2 mGy and DLP is 577.1 mGy-cm. This CT exam was performed using one or more of the following dose reduction techniques: automated exposure control, adjustment of the mA and/or kV according to patient size, and/or use of iterative reconstruction technique. MIP reconstructed images were created and reviewed. COMPARISON: 02/16/16 FINDINGS: Pulmonary arteries: Unremarkable. No pulmonary embolism. Aorta: No acute findings. No thoracic aortic aneurysm. Lungs: Consolidation versus atelectasis in the anterior segment of the right upper lobe. Mild atelectasis in the right middle lobe. Pleural space: Small bilateral pleural effusions with adjacent atelectasis. Heart: Unremarkable. No cardiomegaly. No significant pericardial effusion. No evidence of RV dysfunction. Bones/joints: No acute fracture. No dislocation. Soft tissues: Unremarkable. Lymph nodes: Unremarkable. No enlarged lymph nodes. IMPRESSION: No evidence of pulmonary embolus to the subsegmental level. Small bilateral pleural effusions. Consolidation versus atelectasis in the anterior segment of the right upper lobe.
[2019-03-05] MEDS ORDERED: IPRATROPIUM-ALBUTEROL 3 ML NEB INHALATION STA (23:15)
[2019-03-06 01:32] VITALS: BP 143/88; PULSE 72; RESP 19
== END 2019-03-06 00:55 | disposition home or self-care (01) ==
LOC: EC 18:52
DX: J44.1 Chronic obstructive pulmonary disease with (acute) exacerbation (principal); J44.0 Chronic obstructive pulmonary disease with (acute) lower respiratory infection; J18.9 Pneumonia, unspecified organism; I50.9 Heart failure, unspecified; M79.7 Fibromyalgia; M06.9 Rheumatoid arthritis, unspecified; F31.9 Bipolar disorder, unspecified; F17.200 Nicotine dependence, unspecified, uncomplicated; Z86.73 Personal history of transient ischemic attack (TIA), and cerebral infarction without residual deficits; Z86.14 Personal history of Methicillin resistant Staphylococcus aureus infection; Z79.891 Long term (current) use of opiate analgesic; Z79.52 Long term (current) use of systemic steroids; Z79.899 Other long term (current) drug therapy; Z91.048 Other nonmedicinal substance allergy status; Z88.0 Allergy status to penicillin; Z88.1 Allergy status to other antibiotic agents; Z91.041 Radiographic dye allergy status; Z88.6 Allergy status to analgesic agent; Z91.013 Allergy to seafood; Z88.2 Allergy status to sulfonamides; Z88.5 Allergy status to narcotic agent
CPT/HCPCS: 36415; 94640; 93005; 80053; 83735; 84484; 85025; 85610; 85730; 71046; 71275; 99285; 96374; 96375 ×5; 96376; J2270 ×2; J1200; J2930; J2405; J1885; Q9967

== ENCOUNTER → 2019-03-30 | Outpatient (CLI) | payer MEDICARE ==
[2019-03-30 14:10] LABS: HCT 41.3 % (34.0-46.0); HGB 13.2 gm/dL (11.4-16.0); MCH 26.8 pg (25.0-35.0); MCHC 31.8 g/dL (31.0-37.0); MCV 84.2 fL (80.0-100.0); Mean Platelet Volume 6.5; Platelet Count 426 k/uL (150-450); RBC 4.91 m/uL (3.80-5.40); RDW 14.5 % (11.5-15.5); WBC 7.4 k/uL (3.8-10.6)
[2019-03-30 14:36] LABS: Appearance,Urine Clear (Clear); Bilirubin,Urine Negative (Negative); Blood,Urine Moderate (Negative); Color,Urine Yellow; Glucose,Urine (UA) Negative (Negative); Ketones,Urine Negative (Negative); Leukocyte Esterase,Urine Negative (Negative); Mucus,Urine Rare /hpf; Nitrite,Urine Negative (Negative); Protein,Urine Trace (Negative); RBC,Urine 4 /hpf (0-5); Specific Gravity,Urine 1.027 (1.001-1.035); Squamous Epithelial Cell,Urine 3 /hpf (0-4); Urobilinogen,Urine <2.0 mg/dL (<2.0); WBC,Urine 1 /hpf (0-5)
[2019-03-30 15:44] LABS: Erythrocyte Sedimentation Rate 11 mm/hr (0-20)
[2019-03-30 19:22] LABS: African American GFR (CKD) 122.1 (60.0-200.0); Albumin 4.3 g/dL (3.80-4.90); Albumin/Globulin Ratio 2.26 (1.60-3.17); Anion Gap 3.8 mmol/L (4.00-12.00); C Reactive Protein 2.4 mg/dL (0.0-0.8); Calcium 9.3 mg/dL (8.7-10.3); Carbon Dioxide 34.2 mmol/L (21.6-31.8); Globulin 1.9 g/dL (1.6-3.3); Magnesium 1.5 mg/dL (1.5-2.4); Non-African American GFR(CKD) 105.4 (60.0-200.0); Potassium 4.3 mmol/L (3.5-5.5); Total Bilirubin 0.3 mg/dL (0.3-1.2); Total Protein 6.2 g/dL (6.2-8.2)
[2019-03-30 19:34] LABS: Folate, Serum 12.3 ng/mL; Vitamin D 25 Hydroxy 14.4 ng/mL (30.0-100.0)
[2019-03-30 20:46] LABS: Hemoglobin A1C 6.6 % (4.0-6.0)
[2019-03-30 20:51] LABS: Anti-DNA, DS unit <1.0 IU/mL; Anti-Smith Ab Interp NEGATIVE (NEGATIVE); Cyclic Citrull Pep IgG Unit <0.5 U/mL; Cyclic Citrullinated Pep IgG NEGATIVE (NEGATIVE); DNA Double-Stranded NEGATIVE (NEGATIVE); JO-1 IgG Antibody <0.2 AI; Scleroderma SC-70 Ab <0.2 AI
[2019-04-03 06:39] LABS: Vitamin E (Alpha Tocopherol) 899 ug/dL (500-1800)
[2019-04-03 13:03] LABS: Histone Antibody 0.5 UNITS (<1.0)
[2019-04-05 18:22] LABS: Nicotinamide 14 ng/mL; Nicotinic Acid None Detected; Nicotinuric Acid None Detected
[2019-04-06 14:35] LABS: Vit B1(Thiamine) 55 ug/L (38-122)
== END | disposition home or self-care (01) ==
LOC: LABWHC1 12:55
PROVIDERS: ATTEND Psychiatry & Neurology Neurology
DX: M79.7 Fibromyalgia (principal); G89.4 Chronic pain syndrome; Z79.899 Other long term (current) drug therapy; M25.50 Pain in unspecified joint
CPT/HCPCS: 36415; 80053; 81001; 82306; 82550; 82607; 82746; 83036; 83516; 83519; 83735; 84207; 84425; 84446; 84590; 84591; 84597; 85027; 85652; 86038; 86140; 86200; 86225; 86235

== ENCOUNTER 2019-04-14 22:21 | Emergency (ER) | payer MEDICARE ==
[2019-04-14 22:27] VITALS: TEMP 97.5
[2019-04-14] MEDS ORDERED: HYDROmorphone 1 MG/ML 1 ML SYRINGE IVP STA (23:04)
[2019-04-14] MEDS ORDERED: ONDANSETRON 4 MG/2 ML VIAL IVP STA (23:04)
[2019-04-14] MEDS ORDERED: SODIUM CHLORIDE 0.9% 1,000 ML IV STA (23:04)
--- NOTE | 2019-04-14 23:17 | ED ---
Abdominal Pain HPI - General Chief Complaint: Abdominal Pain Stated Complaint: Abd pain Time Seen by Provider: 04/14/19 22:34 Source: patient Mode of arrival: ambulatory Limitations: no limitations - History of Present Illness Initial Comments: 44-year-old female patient with past medical history significant for pancreatitis and multiple pain disorders presents to the emergency department today for evaluation of upper abdominal pain. Patient states the pain started suddenly around 9 PM. States she was reaching over to pet her cat when the pain started. Patient states that she has history of pancreatitis this feels exactly the same as her previous episodes. States that she has been nauseated and has vomited a couple times. Denies any constipation or diarrhea. Denies any hematuria, dysuria, urinary urgency, urinary frequency. She denies any fever or chills. Patient denies any recent rash, shortness breath, chest pain, back pain, numbness, tingling, dizziness, weakness, headache, visual changes, or any other complaints. - Related Data Home Medications Medication Instructions Recorded Confirmed Potassium Chloride [Klor-Con 8] 8 meq PO DAILY 01/06/14 03/05/19 Ipratropium/Albuterol Sulfate 1 puff INHALATION RT-QID 07/26/15 03/05/19 [Combivent Respimat Inhaler] Spironolactone [Aldactone] 25 mg PO DAILY 02/05/17 03/05/19 Albuterol Inhaler [Ventolin Hfa 1 - 2 puff INHALATION RT-Q6H PRN 12/10/18 03/05/19 Inhaler] Ipratropium-Albuterol Nebulize 3 ml INHALATION RT-BID PRN 12/10/18 03/05/19 [Duoneb 0.5 mg-3 mg/3 ml Soln] oxyCODONE-APAP 10-325MG [Percocet 1 tab PO QID 12/31/18 03/05/19 10-325 mg] QUEtiapine [SEROquel] 50 mg PO HS 02/25/19 03/05/19 diphenhydrAMINE [Benadryl] 50 mg PO TID 02/25/19 03/05/19 predniSONE See Taper PO DIRECTED 03/05/19 03/05/19 Previous Rx's Medication Instructions Recorded ALPRAZolam [Xanax] 0.5 mg PO TID #9 tab 12/13/18 Citalopram Hydrobromide [CeleXA] 60 mg PO DAILY #9 tablet 12/13/18 Zolpidem [Ambien] 10 mg PO HS #3 tab 12/13/18 Ondansetron [Zofran ODT] 4 mg PO Q8HR PRN #12 tab 12/31/18 Cefuroxime Axetil [Ceftin] 500 mg PO BID 5 Days #10 tab 03/03/19 guaiFENesin [Mucinex] 600 mg PO Q12HR PRN 5 Days #10 03/03/19 tablet.er Allergies Allergy/AdvReac Type Severity Reaction Status Date / Time adhesive Allergy Rash/Hives Verified 04/14/19 22:28 amoxicillin Allergy Anaphylaxis Verified 04/14/19 22:28 azithromycin [From Zithromax] Allergy Anaphylaxis Verified 04/14/19 22:28 cephalexin monohydrate Allergy Anaphylaxis Verified 04/14/19 22:28 [From Keflex] ciprofloxacin Allergy Anaphylaxis Verified 04/14/19 22:28 clindamycin Allergy Anaphylaxis Verified 04/14/19 22:28 Iodinated Contrast Media Allergy Swelling Verified 04/14/19 22:28 [Iodinated Contrast- Oral and IV Dye] levofloxacin [From Levaquin] Allergy Rash/Hives Verified 04/14/19 22:28 NSAIDS (Non-Steroidal Allergy Rash/Hives Verified 04/14/19 22:28 Anti-Inflamma shellfish derived Allergy Anaphylaxis Verified 04/14/19 22:28 Sulfa (Sulfonamide Allergy Anaphylaxis Verified 04/14/19 22:28 Antibiotics) sulfamethoxazole Allergy Anaphylaxis Verified 04/14/19 22:28 [From Bactrim] tramadol Allergy Unknown Verified 04/14/19 22:28 trimethoprim [From Bactrim] Allergy Anaphylaxis Verified 04/14/19 22:28 Review of Systems ROS Statement: Those systems with pertinent positive or pertinent negative responses have been documented in the HPI. ROS Other: All systems not noted in ROS Statement are negative. 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 IBS, cellulitis of the chin, History of Any Multi-Drug Resistant Organisms: MRSA Date of last positivie culture/infection: 07/2016 MDRO Source:: chin Past Surgical History: Section, Cholecystectomy, Hysterectomy, Tubal Ligation Additional Past Surgical History / Comment(s): oral surgery . Pancreas biopsy May 2015. Past Anesthesia/Blood Transfusion Reactions: No Reported Reaction Past Psychological History: ADD/ADHD, Anxiety, Bipolar, Depression Smoking Status: Current every day smoker Past Alcohol Use History: None Reported Past Drug Use History: Marijuana - Past Family History Father Family Medical History: No Reported History Additional Family Medical History / Comment(s): ADOPTED General Exam Limitations: no limitations General appearance: alert, in no apparent distress, other (Physical well- developed, well-nourished adult female patient in no acute distress. Vital signs upon presentation are temperature 97.5F, pulse 105, respirations 20, blood pressure 160/86, pulse ox 94% on room air.) Eye exam: Present: normal appearance, PERRL, EOMI. Absent: scleral icterus, conjunctival injection, periorbital swelling ENT exam: Present: normal exam, normal oropharynx, mucous membranes moist Respiratory exam: Present: wheezes (Expiratory wheezing noted all posterior lung daniel). Absent: normal lung sounds bilaterally, respiratory distress, rales, rhonchi, stridor Cardiovascular Exam: Present: regular rate, normal rhythm, normal heart sounds. Absent: systolic murmur, diastolic murmur, rubs, gallop, clicks GI/Abdominal exam: Present: soft, tenderness (Left upper quadrant tenderness), normal bowel sounds. Absent: distended, guarding, rebound, rigid Neurological exam: Present: alert, oriented X3, CN II-XII intact Psychiatric exam: Present: normal affect, normal mood Skin exam: Present: warm, dry, intact, normal color. Absent: rash Course Vital Signs 04/14/19 04/15/19 22:25 01:15 Temperature 97.5 F L Pulse Rate 105 H 92 Respiratory 20 18 Rate Blood Pressure 160/86 144/86 O2 Sat by Pulse 94 L 98 Oximetry Medical Decision Making - Medical Decision Making 44-year-old male patient with past medical history significant for pancreatitis presents to the emergency department today for evaluation of left upper quadrant abdominal pain. Patient states that she has had this pain multiple times in the past. She does report nausea with no vomiting. Physical examination did reveal left upper quadrant tenderness. Labs reviewed and are unremarkable. KUB x-ray is unremarkable. Patient did have improvement of symptoms with pain medication administration here in the emergency department. She'll be discharged. With her primary care physician for recheck on Tuesday. Return parameters discussed in detail. She verbalizes understanding and agrees with this plan. - Lab Data Result diagrams: 04/14/19 23:07 04/14/19 23:07 Lab Results 04/14/19 04/14/19 Range/Units 23:07 23:07 WBC 8.6 (3.8-10.6) k/uL RBC 4.89 (3.80-5.40) m/uL Hgb 13.3 (11.4-16.0) gm/dL Hct 41.3 (34.0-46.0) % MCV 84.4 (80.0-100.0) fL MCH 27.1 (25.0-35.0) pg MCHC 32.1 (31.0-37.0) g/dL RDW 14.1 (11.5-15.5) % Plt Count 278 (150-450) k/uL Neutrophils % 46 % Lymphocytes % 41 % Monocytes % 7 % Eosinophils % 3 % Basophils % 2 % Neutrophils # 3.9 (1.3-7.7) k/uL Lymphocytes # 3.5 (1.0-4.8) k/uL Monocytes # 0.6 (0-1.0) k/uL Eosinophils # 0.3 (0-0.7) k/uL Basophils # 0.2 (0-0.2) k/uL Hypochromasia Slight Sodium 141 (137-145) mmol/L Potassium 5.1 (3.5-5.1) mmol/L Chloride 102 (98-107) mmol/L Carbon Dioxide 34 H (22-30) mmol/L Anion Gap 5 mmol/L BUN 14 (7-17) mg/dL Creatinine 0.68 (0.52-1.04) mg/dL Est GFR (CKD-EPI)AfAm >90 (>60 ml/min/1.73 sqM) Est GFR (CKD-EPI)NonAf >90 (>60 ml/min/1.73 sqM) Glucose 118 H (74-99) mg/dL Calcium 9.1 (8.4-10.2) mg/dL Total Bilirubin 0.3 (0.2-1.3) mg/dL AST 26 (14-36) U/L ALT 18 (9-52) U/L Alkaline Phosphatase 75 (38-126) U/L Total Protein 6.8 (6.3-8.2) g/dL Albumin 4.0 (3.5-5.0) g/dL Amylase 46 (30-110) U/L Lipase 66 (23-300) U/L - Radiology Data Radiology results: report reviewed, image reviewed KUB x-ray is obtained. Report reviewed in its entirety. Impression by Dr. Chacon shows nonacute abdomen. No change. Disposition Clinical Impression: Abdominal pain Disposition: HOME SELF-CARE Condition: Good Instructions (If sedation given, give patient instructions): Abdominal Pain (ED) Additional Instructions: Take home pain medication as directed. Follow up with your primary care physician for recheck in 1-2 days. Return to the emergency department for any new, worsening, or concerning symptoms. Is patient prescribed a controlled substance at d/c from ED?: No Referrals: Kaleb Huston DO [Primary Care Provider] - 1-2 days Time of Disposition: 01:06
[2019-04-14 23:27] LABS: Basophils # (A) 0.2 k/uL (0-0.2); Basophils % (A) 2 %; Eosinophils # (A) 0.3 k/uL (0-0.7); Eosinophils % (A) 3 %; HCT 41.3 % (34.0-46.0); HGB 13.3 gm/dL (11.4-16.0); Hypochromasia Slight; Lymphocytes # (A) 3.5 k/uL (1.0-4.8); Lymphocytes % (A) 41 %; MCH 27.1 pg (25.0-35.0); MCHC 32.1 g/dL (31.0-37.0); MCV 84.4 fL (80.0-100.0); Mean Platelet Volume 6.8; Monocytes # (A) 0.6 k/uL (0-1.0); Monocytes % (A) 7 %; Neutrophils # (A) 3.9 k/uL (1.3-7.7); Neutrophils % (A) 46 %; Platelet Count 278 k/uL (150-450); RBC 4.89 m/uL (3.80-5.40); RDW 14.1 % (11.5-15.5); WBC 8.6 k/uL (3.8-10.6)
--- NOTE | 2019-04-14 23:34 | XR ---
EXAMINATION TYPE: XR KUB DATE OF EXAM: 04/14/2019 COMPARISON: 01/11/2019 HISTORY: Abdominal pain TECHNIQUE: 2 views FINDINGS: Bowel gas pattern is normal. There is no pleural effusion.. There are clips from cholecyste ctomy. There is no evidence of a mass. Lung bases are clear. There are no definite calcifications ove r the kidneys. IMPRESSION: Nonacute abdomen. No change.
[2019-04-14 23:36] LABS: African American GFR (CKD) >90 (>60 ml/min/1.73 sqM); Amylase 46 U/L (30-110); Anion Gap 5 mmol/L; Calcium 9.1 mg/dL (8.4-10.2); Carbon Dioxide 34 mmol/L (22-30); Chloride 102 mmol/L (98-107); Glucose 118 mg/dL (74-99); Sodium 141 mmol/L (137-145); Total Bilirubin 0.3 mg/dL (0.2-1.3); Total Protein 6.8 g/dL (6.3-8.2)
[2019-04-14 23:39] LABS: ALT 18 U/L (9-52); AST 26 U/L (14-36); Blood Urea Nitrogen 14 mg/dL (7-17); Potassium 5.1 mmol/L (3.5-5.1)
[2019-04-14 23:40] LABS: Alkaline Phosphatase 75 U/L (38-126)
[2019-04-15] MEDS ORDERED: HYDROmorphone 1 MG/ML 1 ML SYRINGE IVP STA (01:06)
[2019-04-15 01:21] VITALS: BP 144/86; PULSE 92; RESP 18
== END 2019-04-15 01:17 | disposition home or self-care (01) ==
LOC: EC 22:21
DX: R10.12 Left upper quadrant pain (principal); R11.0 Nausea; R10.812 Left upper quadrant abdominal tenderness; J45.909 Unspecified asthma, uncomplicated; I11.0 Hypertensive heart disease with heart failure; I50.9 Heart failure, unspecified; F31.9 Bipolar disorder, unspecified; F17.200 Nicotine dependence, unspecified, uncomplicated; Z79.899 Other long term (current) drug therapy; Z88.0 Allergy status to penicillin; Z88.1 Allergy status to other antibiotic agents; Z91.041 Radiographic dye allergy status; Z91.013 Allergy to seafood; Z88.6 Allergy status to analgesic agent; Z91.048 Other nonmedicinal substance allergy status; Z88.2 Allergy status to sulfonamides; Z90.49 Acquired absence of other specified parts of digestive tract; Z90.710 Acquired absence of both cervix and uterus; Z86.73 Personal history of transient ischemic attack (TIA), and cerebral infarction without residual deficits
CPT/HCPCS: 36415; 80053; 82150; 83690; 85025; 74018; 99284; 96374; 96375; 96376; 96361; J2405; J1170 ×2

== ENCOUNTER 2019-05-17 23:21 | Emergency (ER) | payer MEDICARE ==
[2019-05-17 23:31] VITALS: RESP 20
[2019-05-17] MEDS ORDERED: methylPREDNISolone SOD SUCCI 125 MG/2 ML VIAL IV STA (23:49)
[2019-05-17] MEDS ORDERED: IPRATROPIUM-ALBUTEROL 3 ML NEB INHALATION STA (23:49)
[2019-05-18 00:16] VITALS: PULSE 87
[2019-05-18 00:29] LABS: ALT 32 U/L (9-52); AST 29 U/L (14-36); African American GFR (CKD) >90 (>60 ml/min/1.73 sqM); Alkaline Phosphatase 87 U/L (38-126); Anion Gap 8 mmol/L; Blood Urea Nitrogen 14 mg/dL (7-17); Calcium 9.2 mg/dL (8.4-10.2); Carbon Dioxide 28 mmol/L (22-30); Chloride 102 mmol/L (98-107); Glucose 158 mg/dL (74-99); Magnesium 1.5 mg/dL (1.6-2.3); Potassium 4.2 mmol/L (3.5-5.1); Sodium 138 mmol/L (137-145); Total Bilirubin 0.1 mg/dL (0.2-1.3); Total Protein 6.8 g/dL (6.3-8.2)
--- NOTE | 2019-05-18 00:49 | XR ---
EXAMINATION TYPE: XR chest 2V DATE OF EXAM: 05/18/2019 COMPARISON: 03/05/2019 HISTORY: Chest pain TECHNIQUE: Frontal and lateral views of the chest are obtained. FINDINGS: Heart and mediastinum are normal. Lungs are clear of infiltrate. There is slight blunting right costophrenic angle on the lateral view.. Bony thorax appears normal. IMPRESSION: There is minimal pleural reaction at right lung base that has essentially cleared compar ed to old exam. Normal heart. No acute lung disease. There is improved aeration of the lower lobes co mpared to old exam.
[2019-05-18 00:59] LABS: Basophils # (A) 0.3 k/uL (0-0.2); Basophils % (A) 3 %; Eosinophils # (A) 0.2 k/uL (0-0.7); Eosinophils % (A) 2 %; HCT 41.5 % (34.0-46.0); Lymphocytes # (A) 3.1 k/uL (1.0-4.8); Lymphocytes % (A) 31 %; MCH 26.5 pg (25.0-35.0); MCHC 31.2 g/dL (31.0-37.0); MCV 84.8 fL (80.0-100.0); Mean Platelet Volume 6.4; Monocytes # (A) 0.6 k/uL (0-1.0); Monocytes % (A) 6 %; Neutrophils # (A) 5.7 k/uL (1.3-7.7); Neutrophils % (A) 56 %; Platelet Count 294 k/uL (150-450); WBC 10.2 k/uL (3.8-10.6)
--- NOTE | 2019-05-18 01:18 | ED ---
URI HPI - General Chief Complaint: Upper Respiratory Infection Stated Complaint: Chest Pain,Dizziness Time Seen by Provider: 05/17/19 23:36 Source: patient Mode of arrival: wheelchair Limitations: no limitations - History of Present Illness Initial Comments: Yolie is a 44 yo female who presents the emergency department today for evaluation of cough. Patient reports that over the past week she's had a minimally productive cough, with no wheezing or shortness of breath. Patient states that she suffers from chronic musculoskeletal chest pain and costo chondritis secondary to rheumatoid arthritis. She states the coughing has been worsening this pain. Patient states that due to the cough she's been having trouble sleeping. She did take a sleeping pill prior to coming the emergency department is now feeling quite sleepy. Patient denies any fevers chills nausea or vomiting. She reports her cough has been productive of clear to whitish colored sputum. - Related Data Home Medications Medication Instructions Recorded Confirmed Potassium Chloride [Klor-Con 8] 8 meq PO DAILY 01/06/14 05/17/19 Ipratropium/Albuterol Sulfate 1 puff INHALATION RT-QID 07/26/15 05/17/19 [Combivent Respimat Inhaler] Spironolactone [Aldactone] 25 mg PO DAILY 02/05/17 05/17/19 Albuterol Inhaler [Ventolin Hfa 1 - 2 puff INHALATION RT-Q6H PRN 12/10/18 05/17/19 Inhaler] oxyCODONE-APAP 10-325MG [Percocet 1 tab PO TID 12/31/18 05/17/19 10-325 mg] QUEtiapine [SEROquel] 100 mg PO HS 02/25/19 05/17/19 diphenhydrAMINE [Benadryl] 50 mg PO TID 02/25/19 05/17/19 Citalopram Hydrobromide [CeleXA] 40 mg PO DAILY 05/17/19 05/17/19 Fluticasone Nasal [place] [Flonase 1 spray EA NOSTRIL HS 05/17/19 05/17/19 Nasal [place]] Previous Rx's Medication Instructions Recorded ALPRAZolam [Xanax] 0.5 mg PO TID #9 tab 12/13/18 Zolpidem [Ambien] 10 mg PO HS #3 tab 12/13/18 predniSONE [Deltasone] 40 mg PO DAILY 5 Days #10 tablet 05/18/19 Allergies Allergy/AdvReac Type Severity Reaction Status Date / Time adhesive Allergy Rash/Hives Verified 05/17/19 23:44 amoxicillin Allergy Anaphylaxis Verified 05/17/19 23:44 azithromycin [From Zithromax] Allergy Anaphylaxis Verified 05/17/19 23:44 cephalexin monohydrate Allergy Anaphylaxis Verified 05/17/19 23:44 [From Keflex] ciprofloxacin Allergy Anaphylaxis Verified 05/17/19 23:44 clindamycin Allergy Anaphylaxis Verified 05/17/19 23:44 Iodinated Contrast Media Allergy Swelling Verified 05/17/19 23:44 [Iodinated Contrast- Oral and IV Dye] levofloxacin [From Levaquin] Allergy Rash/Hives Verified 05/17/19 23:44 NSAIDS (Non-Steroidal Allergy Rash/Hives Verified 05/17/19 23:44 Anti-Inflamma shellfish derived Allergy Anaphylaxis Verified 05/17/19 23:44 Sulfa (Sulfonamide Allergy Anaphylaxis Verified 05/17/19 23:44 Antibiotics) sulfamethoxazole Allergy Anaphylaxis Verified 05/17/19 23:44 [From Bactrim] tramadol Allergy Unknown Verified 05/17/19 23:44 trimethoprim [From Bactrim] Allergy Anaphylaxis Verified 05/17/19 23:44 Review of Systems ROS Statement: Those systems with pertinent positive or pertinent negative responses have been documented in the HPI. ROS Other: All systems not noted in ROS Statement are negative. 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 IBS, cellulitis of the chin, History of Any Multi-Drug Resistant Organisms: MRSA Date of last positivie culture/infection: 07/2016 MDRO Source:: chin Past Surgical History: Section, Cholecystectomy, Hysterectomy, Tubal Ligation Additional Past Surgical History / Comment(s): oral surgery . Pancreas biopsy May 2015. Past Anesthesia/Blood Transfusion Reactions: No Reported Reaction Past Psychological History: ADD/ADHD, Anxiety, Bipolar, Depression Smoking Status: Current every day smoker Past Alcohol Use History: None Reported Past Drug Use History: Marijuana - Past Family History Father Family Medical History: No Reported History Additional Family Medical History / Comment(s): ADOPTED General Exam - General Exam Comments Initial Comments: Physical Exam GENERAL: Patient is well-developed and well-nourished. Patient is nontoxic and well- hydrated and is in no distress. HENT: Normocephalic, Atraumatic. EYES: PERRL, EOMI PULMONARY: Unlabored respirations. No audible rales rhonchi or wheezing was noted. CARDIOVASCULAR: There is a regular rate and rhythm without any murmurs gallops or rubs. ABDOMEN: Soft and nontender with normal bowel sounds. SKIN: Skin is clear with no lesions or rashes and otherwise unremarkable. : Deferred NEUROLOGIC: Patient is alert and oriented x3. Moving all extremities spontaneously MUSCULOSKELETAL: Normal extremities with adequate strength and full range of motion. No lower extremity swelling or edema. No calf tenderness. PSYCHIATRIC: Normal psychiatric evaluation. Limitations: no limitations Course Vital Signs 05/17/19 05/18/19 05/18/19 23:27 00:12 00:21 Temperature 98.0 F Pulse Rate 94 87 87 Respiratory 20 Rate Blood Pressure 103/72 O2 Sat by Pulse 94 L Oximetry 05/18/19 01:38 Temperature 98.2 F Pulse Rate 87 Respiratory 20 Rate Blood Pressure 128/78 O2 Sat by Pulse 95 Oximetry Medical Decision Making - Medical Decision Making The patient was seen and evaluated history was obtained from the patient, patient with URI-like symptoms, nonproductive cough Labs and chest x-ray were obtained Chest x-ray with no signs of pneumonia. I suspect the patient's symptoms are secondary to her tobacco abuse as well as the weather change, I will prescribe five-day course of steroids. Patient is agreeable with this. All questions pertaining care were answered return parameters were discussed patient was discharged home in stable condition. - Lab Data Result diagrams: 05/17/19 23:59 05/17/19 23:59 Lab Results 05/17/19 05/17/19 05/17/19 Range/Units 23:59 23:59 23:59 WBC 10.2 (3.8-10.6) k/uL RBC 4.90 (3.80-5.40) m/uL Hgb 13.0 (11.4-16.0) gm/dL Hct 41.5 (34.0-46.0) % MCV 84.8 (80.0-100.0) fL MCH 26.5 (25.0-35.0) pg MCHC 31.2 (31.0-37.0) g/dL RDW 14.0 (11.5-15.5) % Plt Count 294 (150-450) k/uL Neutrophils % 56 % Lymphocytes % 31 % Monocytes % 6 % Eosinophils % 2 % Basophils % 3 % Neutrophils # 5.7 (1.3-7.7) k/uL Lymphocytes # 3.1 (1.0-4.8) k/uL Monocytes # 0.6 (0-1.0) k/uL Eosinophils # 0.2 (0-0.7) k/uL Basophils # 0.3 H (0-0.2) k/uL Sodium 138 (137-145) mmol/L Potassium 4.2 (3.5-5.1) mmol/L Chloride 102 (98-107) mmol/L Carbon Dioxide 28 (22-30) mmol/L Anion Gap 8 mmol/L BUN 14 (7-17) mg/dL Creatinine 0.70 (0.52-1.04) mg/dL Est GFR (CKD-EPI)AfAm >90 (>60 ml/min/1.73 sqM) Est GFR (CKD-EPI)NonAf >90 (>60 ml/min/1.73 sqM) Glucose 158 H (74-99) mg/dL Calcium 9.2 (8.4-10.2) mg/dL Magnesium 1.5 L (1.6-2.3) mg/dL Total Bilirubin 0.1 L (0.2-1.3) mg/dL AST 29 (14-36) U/L ALT 32 (9-52) U/L Alkaline Phosphatase 87 (38-126) U/L NT-Pro-B Natriuret Pep 245 pg/mL Total Protein 6.8 (6.3-8.2) g/dL Albumin 4.0 (3.5-5.0) g/dL Disposition Clinical Impression: Acute upper respiratory infection Disposition: HOME SELF-CARE Condition: Stable Instructions (If sedation given, give patient instructions): Upper Respiratory Infection (ED) Prescriptions: predniSONE [Deltasone] 40 mg PO DAILY 5 Days #10 tablet Is patient prescribed a controlled substance at d/c from ED?: No Referrals: Kaleb Huston DO [Primary Care Provider] - 1-2 days
[2019-05-18 01:39] VITALS: BP 128/78; TEMP 98.2
== END 2019-05-18 01:39 | disposition home or self-care (01) ==
LOC: EC 23:21
DX: J06.9 Acute upper respiratory infection, unspecified (principal); M94.0 Chondrocostal junction syndrome [Tietze]; J44.9 Chronic obstructive pulmonary disease, unspecified; I50.9 Heart failure, unspecified; M79.7 Fibromyalgia; M06.9 Rheumatoid arthritis, unspecified; G89.29 Other chronic pain; F31.9 Bipolar disorder, unspecified; F41.9 Anxiety disorder, unspecified; F17.200 Nicotine dependence, unspecified, uncomplicated; Z88.0 Allergy status to penicillin; Z88.1 Allergy status to other antibiotic agents; Z88.2 Allergy status to sulfonamides; Z88.5 Allergy status to narcotic agent; Z88.6 Allergy status to analgesic agent; Z91.013 Allergy to seafood; Z91.041 Radiographic dye allergy status; Z91.048 Other nonmedicinal substance allergy status; Z79.51 Long term (current) use of inhaled steroids; Z79.891 Long term (current) use of opiate analgesic; Z79.899 Other long term (current) drug therapy; Z86.14 Personal history of Methicillin resistant Staphylococcus aureus infection
CPT/HCPCS: 36415; 94640; 93005; 83880; 80053; 83735; 85025; 71046; 99284; 96374; J2930

== ENCOUNTER 2019-05-28 23:34 | Emergency (ER) | payer MEDICARE ==
[2019-05-28 23:40] VITALS: TEMP 98.2
[2019-05-29] MEDS ORDERED: HYDROmorphone 1 MG/ML 1 ML SYRINGE IM STA (00:01)
[2019-05-29] MEDS ORDERED: DEXAMETHASONE 4 MG TAB PO STA (00:01)
[2019-05-29] MEDS ORDERED: DIAZEPAM 5 MG TAB PO STA (00:01)
--- NOTE | 2019-05-29 00:05 | ED ---
Back Pain HPI - General Chief Complaint: Back Pain/Injury Stated Complaint: back pain Time Seen by Provider: 05/28/19 23:51 Source: patient, RN notes reviewed, old records reviewed Limitations: no limitations - History of Present Illness Initial Comments: This is a 44-year-old female on this facility patient resents today for evaluation of back pain acute on chronic back pain. Patient states she had SI joint injection by her pain control doctor 3 days ago symptoms and his had right lower back pain tenderness of the back area. Otherwise denying trauma no dysuria no loss of bowel or bladder no neurological complaint. Patient does take Percocet at home it was helping with the pain was a little bit worse a little more tight today. Again otherwise no new injuries no fevers denying any drug abuse MD Complaint: back pain -: days(s) (3) Place: home Radiation: right leg Severity: moderate Severity scale (1-10): 5 Quality: burning, sharp Consistency: constant Improves With: none Worsens With: none Context: turning/twisting Associated Symptoms: denies other symptoms - Related Data Home Medications Medication Instructions Recorded Confirmed Potassium Chloride [Klor-Con 8] 8 meq PO DAILY 01/06/14 05/17/19 Ipratropium/Albuterol Sulfate 1 puff INHALATION RT-QID 07/26/15 05/17/19 [Combivent Respimat Inhaler] Spironolactone [Aldactone] 25 mg PO DAILY 02/05/17 05/17/19 Albuterol Inhaler [Ventolin Hfa 1 - 2 puff INHALATION RT-Q6H PRN 12/10/18 05/17/19 Inhaler] oxyCODONE-APAP 10-325MG [Percocet 1 tab PO TID 12/31/18 05/17/19 10-325 mg] QUEtiapine [SEROquel] 100 mg PO HS 02/25/19 05/17/19 diphenhydrAMINE [Benadryl] 50 mg PO TID 02/25/19 05/17/19 Citalopram Hydrobromide [CeleXA] 40 mg PO DAILY 05/17/19 05/17/19 Fluticasone Nasal [place] [Flonase 1 spray EA NOSTRIL HS 05/17/19 05/17/19 Nasal [place]] Previous Rx's Medication Instructions Recorded ALPRAZolam [Xanax] 0.5 mg PO TID #9 tab 12/13/18 Zolpidem [Ambien] 10 mg PO HS #3 tab 12/13/18 predniSONE [Deltasone] 40 mg PO DAILY 5 Days #10 tablet 05/18/19 Allergies Allergy/AdvReac Type Severity Reaction Status Date / Time adhesive Allergy Rash/Hives Verified 05/28/19 23:40 amoxicillin Allergy Anaphylaxis Verified 05/28/19 23:40 azithromycin [From Zithromax] Allergy Anaphylaxis Verified 05/28/19 23:40 cephalexin monohydrate Allergy Anaphylaxis Verified 05/28/19 23:40 [From Keflex] ciprofloxacin Allergy Anaphylaxis Verified 05/28/19 23:40 clindamycin Allergy Anaphylaxis Verified 05/28/19 23:40 Iodinated Contrast Media Allergy Swelling Verified 05/28/19 23:40 [Iodinated Contrast- Oral and IV Dye] levofloxacin [From Levaquin] Allergy Rash/Hives Verified 05/28/19 23:40 NSAIDS (Non-Steroidal Allergy Rash/Hives Verified 05/28/19 23:40 Anti-Inflamma shellfish derived Allergy Anaphylaxis Verified 05/28/19 23:40 Sulfa (Sulfonamide Allergy Anaphylaxis Verified 05/28/19 23:40 Antibiotics) sulfamethoxazole Allergy Anaphylaxis Verified 05/28/19 23:40 [From Bactrim] tramadol Allergy Unknown Verified 05/28/19 23:40 trimethoprim [From Bactrim] Allergy Anaphylaxis Verified 05/28/19 23:40 Review of Systems ROS Statement: Those systems with pertinent positive or pertinent negative responses have been documented in the HPI. ROS Other: All systems not noted in ROS Statement are negative. 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 IBS, cellulitis of the chin, History of Any Multi-Drug Resistant Organisms: MRSA Date of last positivie culture/infection: 07/2016 MDRO Source:: chin Past Surgical History: Section, Cholecystectomy, Hysterectomy, Tubal Ligation Additional Past Surgical History / Comment(s): oral surgery . Pancreas biopsy May 2015. Past Anesthesia/Blood Transfusion Reactions: No Reported Reaction Past Psychological History: ADD/ADHD, Anxiety, Bipolar, Depression Smoking Status: Current every day smoker Past Alcohol Use History: None Reported Past Drug Use History: Marijuana - Past Family History Father Family Medical History: No Reported History Additional Family Medical History / Comment(s): ADOPTED General Exam Limitations: no limitations General appearance: alert, in no apparent distress Head exam: Present: atraumatic, normocephalic, normal inspection Eye exam: Present: normal appearance, PERRL, EOMI. Absent: scleral icterus, conjunctival injection, periorbital swelling ENT exam: Present: normal exam, mucous membranes moist Neck exam: Present: normal inspection. Absent: tenderness, meningismus, lymphadenopathy Respiratory exam: Present: normal lung sounds bilaterally. Absent: respiratory distress, wheezes, rales, rhonchi, stridor Cardiovascular Exam: Present: regular rate, normal rhythm, normal heart sounds. Absent: systolic murmur, diastolic murmur, rubs, gallop, clicks GI/Abdominal exam: Present: soft, normal bowel sounds. Absent: distended, tenderness, guarding, rebound, rigid Extremities exam: Present: normal inspection, full ROM, normal capillary refill. Absent: tenderness, pedal edema, joint swelling, calf tenderness Back exam: Present: normal inspection Neurological exam: Present: alert, oriented X3, CN II-XII intact Psychiatric exam: Present: normal affect, normal mood Skin exam: Present: warm, dry, intact, normal color. Absent: rash Course Vital Signs 05/28/19 23:36 Temperature 98.2 F Pulse Rate 91 Respiratory 20 Rate Blood Pressure 191/95 O2 Sat by Pulse 99 Oximetry - Reevaluation(s) Reevaluation #1: 05/29/19 00:03 Medical record is reviewed Reevaluation #2: 05/29/19 00:03 Patient has pain control Medical Decision Making - Medical Decision Making 44 female to the ED c/o severe acute on chronic lower back pain. Patient has pain control with no neurological deficits. OK for DC Disposition Clinical Impression: Back pain, Mechanical back pain Disposition: HOME SELF-CARE Condition: Good Instructions (If sedation given, give patient instructions): Acute Low Back Pain (ED) Is patient prescribed a controlled substance at d/c from ED?: No Referrals: Kaleb Huston DO [Primary Care Provider] - 1-2 days
[2019-05-29 02:15] VITALS: BP 154/96; PULSE 89; RESP 22
== END 2019-05-29 02:15 | disposition home or self-care (01) ==
LOC: EC 23:34
DX: G89.29 Other chronic pain (principal); M54.5 Low back pain; J44.9 Chronic obstructive pulmonary disease, unspecified; I50.9 Heart failure, unspecified; M79.7 Fibromyalgia; G40.909 Epilepsy, unspecified, not intractable, without status epilepticus; K58.9 Irritable bowel syndrome, unspecified; M06.9 Rheumatoid arthritis, unspecified; F17.200 Nicotine dependence, unspecified, uncomplicated; F41.9 Anxiety disorder, unspecified; F31.9 Bipolar disorder, unspecified; Z79.51 Long term (current) use of inhaled steroids; Z79.899 Other long term (current) drug therapy; Z88.0 Allergy status to penicillin; Z88.1 Allergy status to other antibiotic agents; Z88.6 Allergy status to analgesic agent; Z91.041 Radiographic dye allergy status; Z88.8 Allergy status to other drugs, medicaments and biological substances; Z91.013 Allergy to seafood; Z88.2 Allergy status to sulfonamides; Z86.73 Personal history of transient ischemic attack (TIA), and cerebral infarction without residual deficits; Z87.442 Personal history of urinary calculi; Z86.14 Personal history of Methicillin resistant Staphylococcus aureus infection
CPT/HCPCS: 99283; 96372; J8540; J1170

== ENCOUNTER 2019-06-01 20:40 | Observation (INO) | payer MEDICARE ==
[2019-06-01] MEDS ORDERED: MORPHINE SULFATE 4 MG/ML SYRINGE IVP STA (21:23)
--- NOTE | 2019-06-01 21:35 | ED ---
General Adult HPI - General Chief complaint: Chest Pain Stated complaint: Flank and Chest Pain Time Seen by Provider: 06/01/19 21:14 Source: patient, RN notes reviewed, old records reviewed Mode of arrival: ambulatory Limitations: no limitations - History of Present Illness Initial comments: 44 yo female presenting for evaluation of right flank pain and epigastric abdominal pain and right upper quadrant abdominal pain.. Patient's symptoms have been present for approximately one week. She denies dysuria or hematuria. Patient's pain has been constant. She does have chronic pain including osteoporosis, fibromyalgia presents this pain is different than her usual pain complaints. Denies injury to her back. She has some chest pain associated with right flank pain. No central chest pain. No nausea vomiting or diarrhea. No fever or chills. - Related Data Home Medications Medication Instructions Recorded Confirmed Potassium Chloride [Klor-Con 8] 8 meq PO DAILY 01/06/14 05/17/19 Ipratropium/Albuterol Sulfate 1 puff INHALATION RT-QID 07/26/15 05/17/19 [Combivent Respimat Inhaler] Spironolactone [Aldactone] 25 mg PO DAILY 02/05/17 05/17/19 Albuterol Inhaler [Ventolin Hfa 1 - 2 puff INHALATION RT-Q6H PRN 12/10/18 05/17/19 Inhaler] oxyCODONE-APAP 10-325MG [Percocet 1 tab PO TID 12/31/18 05/17/19 10-325 mg] QUEtiapine [SEROquel] 100 mg PO HS 02/25/19 05/17/19 diphenhydrAMINE [Benadryl] 50 mg PO TID 02/25/19 05/17/19 Citalopram Hydrobromide [CeleXA] 40 mg PO DAILY 05/17/19 05/17/19 Fluticasone Nasal [place] [Flonase 1 spray EA NOSTRIL HS 05/17/19 05/17/19 Nasal [place]] Previous Rx's Medication Instructions Recorded ALPRAZolam [Xanax] 0.5 mg PO TID #9 tab 12/13/18 Zolpidem [Ambien] 10 mg PO HS #3 tab 12/13/18 predniSONE [Deltasone] 40 mg PO DAILY 5 Days #10 tablet 05/18/19 Allergies Allergy/AdvReac Type Severity Reaction Status Date / Time adhesive Allergy Rash/Hives Verified 05/28/19 23:40 amoxicillin Allergy Anaphylaxis Verified 05/28/19 23:40 azithromycin [From Zithromax] Allergy Anaphylaxis Verified 05/28/19 23:40 cephalexin monohydrate Allergy Anaphylaxis Verified 05/28/19 23:40 [From Keflex] ciprofloxacin Allergy Anaphylaxis Verified 05/28/19 23:40 clindamycin Allergy Anaphylaxis Verified 05/28/19 23:40 Iodinated Contrast Media Allergy Swelling Verified 05/28/19 23:40 [Iodinated Contrast- Oral and IV Dye] levofloxacin [From Levaquin] Allergy Rash/Hives Verified 05/28/19 23:40 NSAIDS (Non-Steroidal Allergy Rash/Hives Verified 05/28/19 23:40 Anti-Inflamma shellfish derived Allergy Anaphylaxis Verified 05/28/19 23:40 Sulfa (Sulfonamide Allergy Anaphylaxis Verified 05/28/19 23:40 Antibiotics) sulfamethoxazole Allergy Anaphylaxis Verified 05/28/19 23:40 [From Bactrim] tramadol Allergy Unknown Verified 05/28/19 23:40 trimethoprim [From Bactrim] Allergy Anaphylaxis Verified 05/28/19 23:40 Review of Systems ROS Statement: Those systems with pertinent positive or pertinent negative responses have been documented in the HPI. ROS Other: All systems not noted in ROS Statement are negative. 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 IBS, cellulitis of the chin, History of Any Multi-Drug Resistant Organisms: MRSA Date of last positivie culture/infection: 07/2016 MDRO Source:: chin Past Surgical History: Section, Cholecystectomy, Hysterectomy, Tubal Ligation Additional Past Surgical History / Comment(s): oral surgery . Pancreas biopsy May 2015. Past Anesthesia/Blood Transfusion Reactions: No Reported Reaction Past Psychological History: ADD/ADHD, Anxiety, Bipolar, Depression Smoking Status: Current every day smoker Past Alcohol Use History: None Reported Past Drug Use History: Marijuana - Past Family History Father Family Medical History: No Reported History Additional Family Medical History / Comment(s): ADOPTED General Exam Limitations: no limitations General appearance: alert, in no apparent distress Head exam: Present: atraumatic, normocephalic Eye exam: Present: normal appearance, PERRL ENT exam: Present: normal exam Neck exam: Present: normal inspection. Absent: tenderness, meningismus Respiratory exam: Present: normal lung sounds bilaterally. Absent: respiratory distress, wheezes Cardiovascular Exam: Present: regular rate, normal rhythm GI/Abdominal exam: Present: soft, tenderness (Right upper quadrant, right flank, and epigastrium). Absent: distended, guarding, rebound Extremities exam: Present: normal inspection, normal capillary refill. Absent: pedal edema Back exam: Present: normal inspection, full ROM, CVA tenderness (R) Neurological exam: Present: alert, oriented X3, CN II-XII intact. Absent: motor sensory deficit Psychiatric exam: Present: normal affect, normal mood Skin exam: Present: warm, dry, intact Course Vital Signs 06/01/19 06/01/19 21:07 23:20 Temperature 98.6 F Pulse Rate 102 H 95 Respiratory 18 20 Rate Blood Pressure 156/88 170/89 O2 Sat by Pulse 97 94 L Oximetry EKG Findings - EKG Comments: EKG Findings:: EKG: Normal sinus rhythm, rate of 100, CA interval 132, QRS duration 80, QTC 477, no ST segment elevation, similar compared to previous EKG obtained 2 weeks ago. Medical Decision Making - Medical Decision Making 44-year-old female presenting for reevaluation of 1 week of right flank pain and right upper quadrant abdominal pain with some associated epigastric abdominal pain and tenderness on exam. Patient has previous history of cholecystectomy. Workup includes both cardiac and abdominal causes pain. Chest x-ray negative for acute cardiac pulmonary disease. CT is obtained which is negative for acute intra-abdominal pathology. Patient has mild leukocytosis. She has a normal CMP including normal liver enzymes, normal lipase. She has a negative troponin. She has 26 RBCs in her urine, there is concern for possible kidney stone as a source for pain although CT is negative, no hydronephrosis, no visualized stone. She remains quite symptomatic while in the emergency department with minimal relief of pain medication. She will be kept in observation for symptom control and reevaluation. - Lab Data Result diagrams: 06/01/19 21:56 06/01/19 21:56 Lab Results 06/01/19 06/01/19 06/01/19 Range/Units 21:45 21:45 21:56 WBC 11.6 H (3.8-10.6) k/uL RBC 5.24 (3.80-5.40) m/uL Hgb 14.0 (11.4-16.0) gm/dL Hct 45.0 (34.0-46.0) % MCV 86.0 (80.0-100.0) fL MCH 26.7 (25.0-35.0) pg MCHC 31.1 (31.0-37.0) g/dL RDW 14.0 (11.5-15.5) % Plt Count 367 (150-450) k/uL Neutrophils % 57 % Lymphocytes % 33 % Monocytes % 4 % Eosinophils % 3 % Basophils % 2 % Neutrophils # 6.5 (1.3-7.7) k/uL Lymphocytes # 3.8 (1.0-4.8) k/uL Monocytes # 0.5 (0-1.0) k/uL Eosinophils # 0.3 (0-0.7) k/uL Basophils # 0.2 (0-0.2) k/uL PT (9.0-12.0) sec INR (<1.2) APTT (22.0-30.0) sec Sodium (137-145) mmol/L Potassium (3.5-5.1) mmol/L Chloride (98-107) mmol/L Carbon Dioxide (22-30) mmol/L Anion Gap mmol/L BUN (7-17) mg/dL Creatinine (0.52-1.04) mg/dL Est GFR (CKD-EPI)AfAm (>60 ml/min/1.73 sqM) Est GFR (CKD-EPI)NonAf (>60 ml/min/1.73 sqM) Glucose (74-99) mg/dL Calcium (8.4-10.2) mg/dL Magnesium (1.6-2.3) mg/dL Total Bilirubin (0.2-1.3) mg/dL AST (14-36) U/L ALT (9-52) U/L Alkaline Phosphatase (38-126) U/L Troponin I (0.000-0.034) ng/mL Total Protein (6.3-8.2) g/dL Albumin (3.5-5.0) g/dL Lipase (23-300) U/L Urine Color Yellow Urine Appearance Cloudy H (Clear) Urine pH 6.5 (5.0-8.0) Ur Specific [place] 1.026 (1.001-1.035) Urine Protein Trace H (Negative) Urine Glucose (UA) Negative (Negative) Urine Ketones Negative (Negative) Urine Blood Moderate H (Negative) Urine Nitrite Negative (Negative) Urine Bilirubin Negative (Negative) Urine Urobilinogen 2.0 (<2.0) mg/dL Ur Leukocyte Esterase Negative (Negative) Urine RBC 26 H (0-5) /hpf Urine WBC 4 (0-5) /hpf Ur Squamous Epith Cells 13 H (0-4) /hpf Urine Bacteria Rare H (None) /hpf Urine Mucus Occasional H (None) /hpf Urine HCG, Qual Not Detected (Not Detectd) 06/01/19 06/01/19 06/01/19 Range/Units 21:56 21:56 21:56 WBC (3.8-10.6) k/uL RBC (3.80-5.40) m/uL Hgb (11.4-16.0) gm/dL Hct (34.0-46.0) % MCV (80.0-100.0) fL MCH (25.0-35.0) pg MCHC (31.0-37.0) g/dL RDW (11.5-15.5) % Plt Count (150-450) k/uL Neutrophils % % Lymphocytes % % Monocytes % % Eosinophils % % Basophils % % Neutrophils # (1.3-7.7) k/uL Lymphocytes # (1.0-4.8) k/uL Monocytes # (0-1.0) k/uL Eosinophils # (0-0.7) k/uL Basophils # (0-0.2) k/uL PT 10.3 (9.0-12.0) sec INR 1.0 (<1.2) APTT 24.0 (22.0-30.0) sec Sodium 140 (137-145) mmol/L Potassium 3.9 (3.5-5.1) mmol/L Chloride 101 (98-107) mmol/L Carbon Dioxide 30 (22-30) mmol/L Anion Gap 9 mmol/L BUN 17 (7-17) mg/dL Creatinine 0.58 (0.52-1.04) mg/dL Est GFR (CKD-EPI)AfAm >90 (>60 ml/min/1.73 sqM) Est GFR (CKD-EPI)NonAf >90 (>60 ml/min/1.73 sqM) Glucose 118 H (74-99) mg/dL Calcium 9.8 (8.4-10.2) mg/dL Magnesium 1.7 (1.6-2.3) mg/dL Total Bilirubin 0.2 (0.2-1.3) mg/dL AST 15 (14-36) U/L ALT 25 (9-52) U/L Alkaline Phosphatase 93 (38-126) U/L Troponin I <0.012 (0.000-0.034) ng/mL Total Protein 7.2 (6.3-8.2) g/dL Albumin 4.3 (3.5-5.0) g/dL Lipase 82 (23-300) U/L Urine Color Urine Appearance (Clear) Urine pH (5.0-8.0) Ur Specific [place] (1.001-1.035) Urine Protein (Negative) Urine Glucose (UA) (Negative) Urine Ketones (Negative) Urine Blood (Negative) Urine Nitrite (Negative) Urine Bilirubin (Negative) Urine Urobilinogen (<2.0) mg/dL Ur Leukocyte Esterase (Negative) Urine RBC (0-5) /hpf Urine WBC (0-5) /hpf Ur Squamous Epith Cells (0-4) /hpf Urine Bacteria (None) /hpf Urine Mucus (None) /hpf Urine HCG, Qual (Not Detectd) Disposition Clinical Impression: Abdominal pain Disposition: ADMITTED IP TO THIS [facility] Condition: Stable Is patient prescribed a controlled substance at d/c from ED?: No Referrals: Kaleb Huston DO [Primary Care Provider] - 1-2 days Decision to Admit Reason: Admit from EC Decision Date: 06/02/19 Decision Time: 00:20
[2019-06-01 21:51] LABS: Appearance,Urine Cloudy (Clear); Bacteria,Urine Rare /hpf; Bilirubin,Urine Negative (Negative); Blood,Urine Moderate (Negative); Color,Urine Yellow; Glucose,Urine (UA) Negative (Negative); Ketones,Urine Negative (Negative); Leukocyte Esterase,Urine Negative (Negative); Mucus,Urine Occasional /hpf; Nitrite,Urine Negative (Negative); PH, Urine 6.5 (5.0-8.0); Protein,Urine Trace (Negative); RBC,Urine 26 /hpf (0-5); Specific Gravity,Urine 1.026 (1.001-1.035); Squamous Epithelial Cell,Urine 13 /hpf (0-4); WBC,Urine 4 /hpf (0-5)
[2019-06-01 22:09] LABS: Basophils # (A) 0.2 k/uL (0-0.2); Basophils % (A) 2 %; Eosinophils # (A) 0.3 k/uL (0-0.7); Eosinophils % (A) 3 %; Lymphocytes # (A) 3.8 k/uL (1.0-4.8); Lymphocytes % (A) 33 %; MCH 26.7 pg (25.0-35.0); MCHC 31.1 g/dL (31.0-37.0); Mean Platelet Volume 6.3; Monocytes # (A) 0.5 k/uL (0-1.0); Monocytes % (A) 4 %; Neutrophils # (A) 6.5 k/uL (1.3-7.7); Neutrophils % (A) 57 %; Platelet Count 367 k/uL (150-450); RBC 5.24 m/uL (3.80-5.40); WBC 11.6 k/uL (3.8-10.6)
[2019-06-01 22:23] LABS: Prothrombin Time 10.3 sec (9.0-12.0)
[2019-06-01 22:59] LABS: ALT 25 U/L (9-52); AST 15 U/L (14-36); African American GFR (CKD) >90 (>60 ml/min/1.73 sqM); Albumin 4.3 g/dL (3.5-5.0); Alkaline Phosphatase 93 U/L (38-126); Anion Gap 9 mmol/L; Blood Urea Nitrogen 17 mg/dL (7-17); Calcium 9.8 mg/dL (8.4-10.2); Carbon Dioxide 30 mmol/L (22-30); Chloride 101 mmol/L (98-107); Glucose 118 mg/dL (74-99); Magnesium 1.7 mg/dL (1.6-2.3); Non-African American GFR(CKD) >90 (>60 ml/min/1.73 sqM); Potassium 3.9 mmol/L (3.5-5.1); Sodium 140 mmol/L (137-145); Total Bilirubin 0.2 mg/dL (0.2-1.3); Total Protein 7.2 g/dL (6.3-8.2)
--- NOTE | 2019-06-01 23:10 | XR ---
EXAMINATION TYPE: XR chest 2V DATE OF EXAM: 06/01/2019 COMPARISON: 05/18/2019 HISTORY: Flank pain TECHNIQUE: Frontal and lateral views of the chest are obtained. FINDINGS: Heart is normal. Lungs are clear of consolidation. There are no hilar masses. Costophrenic angles are clear. IMPRESSION: Normal chest. No change.
[2019-06-01] MEDS ORDERED: SODIUM CHLORIDE 0.9% 500 ML 500 ML IV ONE (23:17)
[2019-06-01] MEDS ORDERED: HYDROmorphone 1 MG/ML 1 ML SYRINGE IVP STA (23:19)
--- NOTE | 2019-06-01 23:26 | CT ---
EXAMINATION TYPE: CT abdomen pelvis wo con DATE OF EXAM: 06/01/2019 COMPARISON: 12/10/2018 HISTORY: pain CT DLP: 1185 mGycm Automated exposure control for dose reduction was used. TECHNIQUE: Helical acquisition of images was performed from the lung bases through the pelvis. FINDINGS: Lung bases are clear. There is no pleural effusion. Heart size is normal. There is no pericardial eff usion. Liver appears normal. Bile ducts are not dilated. There are clips from cholecystectomy. There is no pancreatic mass. Spleen is intact. Stomach is intact. There is no adrenal mass. Kidneys have normal size and contour. There is no hydronephrosis. There is no retroperitoneal adenopathy. Bladder distends smoothly. There is no inguinal hernia. There is no fr ee fluid in the pelvis. There is no sign of a pelvic mass. Appendix is not definitely seen. There is no sign of thickened appendix. There is no mesenteric edema. There is no ascites or free air. There is no sign of a bowel obstructio n. Lumbar vertebra have normal spacing. Alignment is normal. Posterior elements are intact. Bony pelvis appears intact. IMPRESSION: NEGATIVE CT SCAN ABDOMEN AND PELVIS. NO ADVERSE CHANGE COMPARED TO OLD EXAM. NORMAL PANCREAS.
[2019-06-02] MEDS ORDERED: ONDANSETRON 4 MG/2 ML VIAL IVP PRN (00:50)
[2019-06-02] MEDS ORDERED: NALOXONE 0.4 MG/ML 1 ML VIAL IV PRN (00:50)
[2019-06-02] MEDS ORDERED: ACETAMINOPHEN TAB 325 MG TAB PO PRN (00:50)
[2019-06-02] MEDS: HYDROmorphone 0.5 MG/0.5 ML SYRINGE IVP PRN ×4 (01:23→11:56)
[2019-06-02] MEDS: SODIUM CHLORIDE 0.9% 1,000 ML IV SCH ×2 (01:35→14:51)
[2019-06-02] MEDS: oxyCODONE-APAP 10-325MG 1 EACH TAB PO SCH ×3 (08:01→21:52)
[2019-06-02] MEDS: SPIRONOLACTONE 25 MG TAB PO SCH (08:02)
[2019-06-02] MEDS: POTASSIUM CHLORIDE ER 10 MEQ TAB.ER.PRT PO SCH (08:02)
[2019-06-02] MEDS: CITALOPRAM HYDROBROMIDE 20 MG TAB PO SCH (08:02)
[2019-06-02] MEDS: ALPRAZolam 0.5 MG TAB PO SCH ×3 (08:02→21:52)
[2019-06-02] MEDS: diphenhydrAMINE 50 MG CAP PO SCH ×3 (08:09→21:51)
[2019-06-02] MEDS ORDERED: PANTOPRAZOLE 40 MG/10 ML VIAL IV SCH (09:00)
[2019-06-02] MEDS: IPRATROPIUM-ALBUTEROL 3 ML NEB INHALATION SCH ×2 (11:07→19:00)
[2019-06-02] MEDS: MILNACIPRAN HCL 25 MG PO SCH (14:50)
--- NOTE | 2019-06-02 14:56 | P.HPIM ---
History of Present Illness H&P Date: 06/02/19 Chief Complaint: Right-sided. Pain History of presenting complaint: This is a 44-year-old patient of Dr. Huston. Chronic stable medical conditions include COPD, fibromyalgia, Benjie arthritis, seizure disorder, enteric fibrosis, chronic abdominal pain, kidney stones, irritable bowel syndrome. Patient also has bipolar disorder. Patient is a current smoker. Patient pre sents with 3 days of pain started in the right flank but more localized to spine coming around to the front. It is sharp in nature. Patient does state that she reviewed her toe but not documented here. To some wheezing. Decreased appetite. Pain is worse when she moves her body. Her appetite is okay. Very slight cough. No change in bowel pattern. No nausea vomiting. Patient is requesting Dilaudid. Pain is not pleuritic in nature Review of systems: GEN.: Tired EYES: None HEENT: None NECK: None RESPIRATORY: Some wheezing shortness of breath CARDIOVASCULAR: None GASTROINTESTINAL: None GENITOURINARY: None MUSCULOSKELETAL: As above LYMPHATICS: None HEMATOLOGICAL: None PSYCHIATRY: Anxious NEUROLOGICAL: None Social history: Patient smoked 3 packs for many years now don't to 3/6 a day in the last 2 months, some marijuana, Family history: Patient is adopted Physical examination: VITAL SIGNS: 98.6, 102, 18, 156/88, 97% room air GENERAL: BMI 39.8, sitting on bed, not in distress. EYES: Pupils equal. Conjunctiva normal. HEENT: External appearance of nose and ears normal, oral cavity grossly normal. NECK: JVD not raised; masses not palpable. HEART: First and second heart sounds are normal; no edema. LUNGS: Respiratory rate increased, decreased breath sounds prolonged expiration some wheezing. ABDOMEN: Soft, nontender, liver spleen not palpable, no masses palpable. PSYCH: Alert and oriented x3; mood and affect normal. NEUROLOGICAL: Cranial nerves grossly intact; no facial asymmetry, power and sensation grossly intact. LYMPHATICS: No lymph nodes palpable in the axilla and neck MUSCULOSKELETAL: Some slight tenderness at the lower thoracic level INVESTIGATIONS, reviewed in the clinical context: White count 11.6 hemoglobin 14 crit was 367 progression 3.9 creatinine 0.58 Troponin I less than 0.012 EKG tracing personally reviewed by ga-normal sinus rhythm Computed tomography scan of the abdomen and pelvis without contrast-negative Chest x-ray film personally reviewed by me-lung daniel clear Assessment: -Patient presented with 3 days of acute pain at the level of the thoracic spine, with radiation anteriorly. Patient did complain of a fever with this to documented fever. Appears more of a radiculopathy. Abdominal examination is benign -Acute COPD exacerbation in a current smoker -Chronic fibromyalgia -Lobar arthritis-chronic seizure disorder -Irritable bowel syndrome -Obesity BMI 38.8 -Chronic nicotine dependence, patient cigarette smoker Plan: We'll start the patient on Toradol. Patient oriented Benadryl. Keep a close eye. Recently the Dilaudid. Claudication same. Home medications resumed. We'll give bronchodilators and IV steroids. Lovenox for DVT prophylaxis. We'll also order to lumbothoracic spine x-ray. 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 IBS, cellulitis of the chin, History of Any Multi-Drug Resistant Organisms: MRSA Date of last positivie culture/infection: 07/2016 MDRO Source:: chin Past Surgical History: Section, Cholecystectomy, Hysterectomy, Tubal Ligation Additional Past Surgical History / Comment(s): oral surgery . Pancreas biopsy May 2015. Past Anesthesia/Blood Transfusion Reactions: No Reported Reaction Past Psychological History: ADD/ADHD, Anxiety, Bipolar, Depression Additional Psychological History / Comment(s): borderline personality disorder Smoking Status: Current every day smoker Past Alcohol Use History: None Reported Past Drug Use History: Marijuana Additional Drug Use History / Comment(s): Says she occasionally has edible marijuana- a couple times within the last year. - Past Family History Father Family Medical History: No Reported History Additional Family Medical History / Comment(s): ADOPTED Medications and Allergies Home Medications Medication Instructions Recorded Confirmed Type Potassium Chloride [Klor-Con 8] 8 meq PO DAILY 01/06/14 06/02/19 History Ipratropium/Albuterol Sulfate 1 puff INHALATION RT-QID 07/26/15 06/02/19 History [Combivent Respimat Inhaler] Spironolactone [Aldactone] 25 mg PO DAILY 02/05/17 06/02/19 History Albuterol Inhaler [Ventolin Hfa 2 puff INHALATION RT-Q6H PRN 12/10/18 06/02/19 History Inhaler] Zolpidem [Ambien] 10 mg PO HS #3 tab 12/13/18 06/02/19 Rx oxyCODONE-APAP 10-325MG [Percocet 1 tab PO TID 12/31/18 06/02/19 History 10-325 mg] QUEtiapine [SEROquel] 50 mg PO HS 02/25/19 06/02/19 History diphenhydrAMINE [Benadryl] 50 mg PO TID 02/25/19 06/02/19 History Citalopram Hydrobromide [CeleXA] 60 mg PO DAILY 05/17/19 06/02/19 History Fluticasone Nasal [place] [Flonase 1 spray EA NOSTRIL HS 05/17/19 06/02/19 History Nasal [place]] ALPRAZolam [Xanax] 0.5 mg PO TID PRN 06/02/19 06/02/19 History Ergocalciferol [Vitamin D2] 50,000 unit PO WE 06/02/19 06/02/19 History Milnacipran HCl [Savella] 12.5 mg PO DAILY 06/02/19 06/02/19 History Allergies Allergy/AdvReac Type Severity Reaction Status Date / Time adhesive Allergy Rash/Hives Verified 06/02/19 08:34 amoxicillin Allergy Anaphylaxis Verified 06/02/19 08:34 azithromycin [From Zithromax] Allergy Anaphylaxis Verified 06/02/19 08:34 cephalexin monohydrate Allergy Anaphylaxis Verified 06/02/19 08:34 [From Keflex] ciprofloxacin Allergy Anaphylaxis Verified 06/02/19 08:34 clindamycin Allergy Anaphylaxis Verified 06/02/19 08:34 Iodinated Contrast Media Allergy Swelling Verified 06/02/19 08:34 [Iodinated Contrast- Oral and IV Dye] levofloxacin [From Levaquin] Allergy Rash/Hives Verified 06/02/19 08:34 NSAIDS (Non-Steroidal Allergy Rash/Hives Verified 06/02/19 08:34 Anti-Inflamma shellfish derived Allergy Anaphylaxis Verified 06/02/19 08:34 Sulfa (Sulfonamide Allergy Anaphylaxis Verified 06/02/19 08:34 Antibiotics) sulfamethoxazole Allergy Anaphylaxis Verified 06/02/19 08:34 [From Bactrim] tramadol Allergy Unknown Verified 06/02/19 08:34 trimethoprim [From Bactrim] Allergy Anaphylaxis Verified 06/02/19 08:34 Physical Exam Vitals: Vital Signs Temp Pulse Pulse Resp BP BP Pulse Ox 06/02/19 06:49 170/89 06/02/19 04:46 98.5 F 86 22 189/89 96 06/02/19 02:21 96 22 06/02/19 02:10 98.3 F 96 22 94 L 06/02/19 01:00 98.6 F 90 18 156/86 98 06/01/19 23:20 95 20 170/89 94 L 06/01/19 21:07 98.6 F 102 H 18 156/88 97 Intake and Output 06/01/19 06/02/19 06/02/19 22:59 06:59 14:59 Intake Total 400 Balance 400 Intake: Oral 400 Other: Voiding Method Toilet # Voids 1 Weight 92.533 kg Results CBC & Chem 7: 06/01/19 21:56 06/01/19 21:56 Labs: Abnormal Lab Results - Last 24 Hours (Table) 06/01/19 06/01/19 06/01/19 Range/Units 21:45 21:56 21:56 WBC 11.6 H (3.8-10.6) k/uL Glucose 118 H (74-99) mg/dL Urine Appearance Cloudy H (Clear) Urine Protein Trace H (Negative) Urine Blood Moderate H (Negative) Urine RBC 26 H (0-5) /hpf Ur Squamous Epith Cells 13 H (0-4) /hpf Urine Bacteria Rare H (None) /hpf Urine Mucus Occasional H (None) /hpf Thrombosis Risk Factor Assmnt - Choose All That Apply Any of the Below Risk Factors Present?: Yes Each Factor Represents 1 point: Age 41-60 years, Obesity (BMI >25) Other Risk Factors: No Other congenital or acquired thrombophilia - If yes, enter type in comment: No Thrombosis Risk Factor Assessment Total Risk Factor Score: 2 Thrombosis Risk Factor Assessment Level: Low Risk
[2019-06-02] MEDS: ENOXAPARIN 40 MG/0.4 ML SYRINGE SQ SCH (15:24)
[2019-06-02] MEDS: NICOTINE 7MG/24HR PATCH TRANSDERM SCH (15:24)
[2019-06-02] MEDS: methylPREDNISolone SOD SUCCI 40 MG/ML 1 ML VIAL IV SCH (15:25)
--- NOTE | 2019-06-02 15:35 | XR ---
EXAMINATION TYPE: XR lumbar spine 2 or 3V DATE OF EXAM: 06/02/2019 COMPARISON: 08/14/2015 HISTORY: Back pain TECHNIQUE: 3 views FINDINGS: Lumbar vertebra have normal alignment. Posterior elements are intact. There is no compressi on fracture. Sacroiliac joints are intact. IMPRESSION: Negative lumbar spine exam. No fracture. No change.
--- NOTE | 2019-06-02 15:38 | XR ---
EXAMINATION TYPE: XR thoracic spine 2V DATE OF EXAM: 06/02/2019 COMPARISON: NONE HISTORY: Back pain TECHNIQUE: 3 views FINDINGS: Thoracic vertebra have normal alignment. Posterior elements are intact. There is no paraspi nal mass. There is no compression fracture. IMPRESSION: Negative thoracic spine exam.
[2019-06-02] MEDS: KETOROLAC 30 MG/ML 1 ML VIAL IVP SCH (17:43)
[2019-06-02] MEDS ORDERED: FLUTICASONE 50MCG/SPRAY NASAL 16GM EA NOSTRIL SCH (21:00)
[2019-06-02] MEDS ORDERED: QUEtiapine 50 MG TAB PO SCH (21:00)
[2019-06-02] MEDS ORDERED: ZOLPIDEM 10 MG TAB PO SCH (21:00)
[2019-06-02 22:00] VITALS: RESP 20
[2019-06-03] MEDS: KETOROLAC 30 MG/ML 1 ML VIAL IVP SCH ×3 (00:28→11:41)
[2019-06-03] MEDS: methylPREDNISolone SOD SUCCI 40 MG/ML 1 ML VIAL IV SCH ×2 (00:31→08:18)
[2019-06-03] MEDS: IPRATROPIUM-ALBUTEROL 3 ML NEB INHALATION SCH ×3 (00:44→13:28)
[2019-06-03 05:13] VITALS: BP 159/81; TEMP 97.8
[2019-06-03] MEDS: CITALOPRAM HYDROBROMIDE 20 MG TAB PO SCH (08:18)
[2019-06-03] MEDS: POTASSIUM CHLORIDE ER 10 MEQ TAB.ER.PRT PO SCH (08:18)
[2019-06-03] MEDS: SPIRONOLACTONE 25 MG TAB PO SCH (08:18)
[2019-06-03] MEDS: ALPRAZolam 0.5 MG TAB PO SCH (08:19)
[2019-06-03] MEDS: oxyCODONE-APAP 10-325MG 1 EACH TAB PO SCH (08:19)
[2019-06-03] MEDS: ENOXAPARIN 40 MG/0.4 ML SYRINGE SQ SCH (08:20)
[2019-06-03] MEDS: diphenhydrAMINE 50 MG CAP PO SCH (08:20)
[2019-06-03] MEDS: NICOTINE 7MG/24HR PATCH TRANSDERM SCH (08:21)
[2019-06-03] MEDS: MILNACIPRAN HCL 25 MG PO SCH (08:21)
[2019-06-03 13:31] VITALS: PULSE 96
--- NOTE | 2019-06-03 18:53 | P.DS ---
Providers Date of admission: 06/02/19 00:51 Expected date of discharge: 06/03/19 Attending physician: Sajan Pace Primary care physician: Kaleb Huston [facility] Hospital Course: Chief Complaint: Right-sided. Pain Hospital course: This is a 44-year-old patient of Dr. Huston. Chronic stable medical conditions include COPD, fibromyalgia, Benjie arthritis, seizure disorder, enteric fibrosis, chronic abdominal pain, kidney stones, irritable bowel syndrome. Patient also has bipolar disorder. Patient is a current smoker. Patient presents with 3 days of pain started in the right flank but more localized to spine coming around to the front. It is sharp in nature. Patient does state that she reviewed her toe but not documented here. To some wheezing. Decreased appetite. Pain is worse when she moves her body. Her appetite is okay. Very slight cough. No change in bowel pattern. No nausea vomiting. Patient is requesting Dilaudid. Pain is not pleuritic in nature X-ray of the thoracolumbar spine did not reveal any fracture. Patient is intravenous NSAIDs. And a short course of steroids. Initial patient should completely resolve. Respiratory the patient slept for last night. And slept most of the day. Rectal good this afternoon she wanted IV Dilaudid. I did explain to her at length that IV pain medications are not indicated and is a high chance of dependence. I then asked her if she has a pain doctor and she confirmed that she see Dr. Olsen. I explained to different modalities of pain control and especially there was no fever no chills and the clinical exam was otherwise benign. She was kept insisting getting IV Dilaudid. I told her to follow-up with her pain specialist Dr. Olsen next couple of days. Also spoke to nurse again patient had been eating well. Keeping anything down. Discussion and discharge planning more than 35 minutes Physical examination: VITAL SIGNS: 97.8, 88, 20, 159 with 81, 93% room air GENERAL: BMI 39.8, laying in bed, comfortable EYES: Pupils equal. Conjunctiva normal. HEENT: External appearance of nose and ears normal, oral cavity grossly normal. NECK: JVD not raised; masses not palpable. HEART: First and second heart sounds are normal; no edema. LUNGS: Respiratory rate increased, decreased breath sounds . ABDOMEN: Soft, nontender, liver spleen not palpable, no masses palpable. PSYCH: Alert and oriented x3; mood and affect anxious. NEUROLOGICAL: Cranial nerves grossly intact; no facial asymmetry, power and sensation grossly intact. MUSCULOSKELETAL: No further tenderness INVESTIGATIONS, reviewed in the clinical context: White count 11.6 hemoglobin 14 platelet 367 potassium 3.9 creatinine 0.58 Troponin I less than 0.012 EKG tracing personally reviewed by me-normal sinus rhythm Computed tomography scan of the abdomen and pelvis without contrast-negative Chest x-ray film personally reviewed by me-lung daniel clear Thoracolumbar spine film-no acute Assessment: -Acute radicular pain from lower thoracic spine, resolved -Acute COPD exacerbation in a current smoker -Chronic fibromyalgia -Lobar arthritis-chronic seizure disorder -Irritable bowel syndrome -Obesity BMI 38.8 -Chronic nicotine dependence, patient cigarette smoker Disposition: Home Patient Condition at Discharge: Stable Plan - Discharge Summary New Discharge Prescriptions: New Nicotine 7Mg/24Hr Patch [Habitrol] 1 patch TRANSDERM DAILY #14 patch Naproxen [Naprosyn] 250 mg PO TID #21 tab predniSONE 0 mg PO DIRECTED #10 tab Continue Potassium Chloride [Klor-Con 8] 8 meq PO DAILY Ipratropium/Albuterol Sulfate [Combivent Respimat Inhaler] 1 puff INHALATION RT-QID Spironolactone [Aldactone] 25 mg PO DAILY Albuterol Inhaler [Ventolin Hfa Inhaler] 2 puff INHALATION RT-Q6H PRN PRN Reason: Shortness Of Breath Zolpidem [Ambien] 10 mg PO HS #3 tab oxyCODONE-APAP 10-325MG [Percocet 10-325 mg] 1 tab PO TID diphenhydrAMINE [Benadryl] 50 mg PO TID QUEtiapine [SEROquel] 50 mg PO HS Fluticasone Nasal [place] [Flonase Nasal [place]] 1 spray EA NOSTRIL HS Citalopram Hydrobromide [CeleXA] 60 mg PO DAILY Ergocalciferol [Vitamin D2 (DRISDOL)] 50,000 unit PO WE ALPRAZolam [Xanax] 0.5 mg PO TID PRN PRN Reason: Anxiety Milnacipran HCl [Savella] 12.5 mg PO DAILY Discharge Medication List Potassium Chloride [Klor-Con 8] 8 meq PO DAILY 01/06/14 [History] Ipratropium/Albuterol Sulfate [Combivent Respimat Inhaler] 1 puff INHALATION RT- QID 07/26/15 [History] Spironolactone [Aldactone] 25 mg PO DAILY 02/05/17 [History] Albuterol Inhaler [Ventolin Hfa Inhaler] 2 puff INHALATION RT-Q6H PRN 12/10/18 [History] Zolpidem [Ambien] 10 mg PO HS #3 tab 12/13/18 [Rx] oxyCODONE-APAP 10-325MG [Percocet 10-325 mg] 1 tab PO TID 12/31/18 [History] QUEtiapine [SEROquel] 50 mg PO HS 02/25/19 [History] diphenhydrAMINE [Benadryl] 50 mg PO TID 02/25/19 [History] Citalopram Hydrobromide [CeleXA] 60 mg PO DAILY 05/17/19 [History] Fluticasone Nasal [place] [Flonase Nasal [place]] 1 spray EA NOSTRIL HS 05/17/19 [History] ALPRAZolam [Xanax] 0.5 mg PO TID PRN 06/02/19 [History] Ergocalciferol [Vitamin D2 (DRISDOL)] 50,000 unit PO WE 06/02/19 [History] Milnacipran HCl [Savella] 12.5 mg PO DAILY 06/02/19 [History] Naproxen [Naprosyn] 250 mg PO TID #21 tab 06/03/19 [Rx] Nicotine 7Mg/24Hr Patch [Habitrol] 1 patch TRANSDERM DAILY #14 patch 06/03/19 [Rx] predniSONE 0 mg PO DIRECTED #10 tab 06/03/19 [Rx] Follow up Appointment(s)/Referral(s): Kaleb Huston DO [Primary Care Provider] - 1-2 days (Please call Tuesday and schedule an appointment) Lynn Olsen MD [Medical Doctor] - 06/04/19 () Patient Instructions/Handouts: COPD (Chronic Obstructive Pulmonary Disease) (ED) Activity/Diet/Wound Care/Special Instructions: HOME MEDICATION SAVELLA IN MED ROOM Discharge Disposition: HOME SELF-CARE
[2019-06-04] MEDS ORDERED: MILNACIPRAN HCL 25 MG PO SCH (09:00)
[2019-06-07] MEDS ORDERED: MILNACIPRAN HCL 25 MG PO SCH (09:00)
[2019-06-10] MEDS ORDERED: MILNACIPRAN HCL 25 MG PO SCH (09:00)
== END 2019-06-03 14:58 | disposition home or self-care (01) ==
LOC: EC 20:40 → 4MS4W 06-02 00:51
PROVIDERS: ADMIT Hospitalist; ATTEND Hospitalist
DX: M54.14 Radiculopathy, thoracic region (principal); J44.1 Chronic obstructive pulmonary disease with (acute) exacerbation; M79.7 Fibromyalgia; M06.9 Rheumatoid arthritis, unspecified; G40.909 Epilepsy, unspecified, not intractable, without status epilepticus; G89.29 Other chronic pain; Z87.442 Personal history of urinary calculi; K58.9 Irritable bowel syndrome, unspecified; M46.96 Unspecified inflammatory spondylopathy, lumbar region; E66.9 Obesity, unspecified; Z68.38 Body mass index [BMI] 38.0-38.9, adult; F17.210 Nicotine dependence, cigarettes, uncomplicated; F31.9 Bipolar disorder, unspecified; F41.9 Anxiety disorder, unspecified; I50.9 Heart failure, unspecified; F90.9 Attention-deficit hyperactivity disorder, unspecified type; F60.3 Borderline personality disorder; M81.0 Age-related osteoporosis without current pathological fracture; Z79.899 Other long term (current) drug therapy; Z79.891 Long term (current) use of opiate analgesic; Z88.2 Allergy status to sulfonamides; Z88.8 Allergy status to other drugs, medicaments and biological substances; Z88.1 Allergy status to other antibiotic agents; Z91.041 Radiographic dye allergy status; Z88.0 Allergy status to penicillin; Z91.013 Allergy to seafood; Z86.73 Personal history of transient ischemic attack (TIA), and cerebral infarction without residual deficits; Z87.19 Personal history of other diseases of the digestive system; Z86.14 Personal history of Methicillin resistant Staphylococcus aureus infection; Z90.49 Acquired absence of other specified parts of digestive tract; Z87.01 Personal history of pneumonia (recurrent)
CPT/HCPCS: 96376 ×3; 96372 ×2; 96375 ×2; 96361 ×2; 96374; 99285; 36415; 94640 ×4; 94760; 93005; 80053; 83690; 83735; 84484; 85025; 85610; 85730; 81001; 81025; 72070; 72100; 71046; 74176; G0378 ×2; J2270; J2920 ×2; J1650 ×2; J1885 ×2; J1170 ×2; C9113

== ENCOUNTER 2019-06-12 22:45 | Emergency (ER) | payer MEDICARE ==
[2019-06-12 22:53] VITALS: TEMP 98.4
[2019-06-12] MEDS ORDERED: ONDANSETRON 4 MG/2 ML VIAL IVP STA (23:10)
[2019-06-12] MEDS ORDERED: SODIUM CHLORIDE 0.9% 1,000 ML IV STA (23:10)
[2019-06-12] MEDS ORDERED: LORazepam 1 MG TAB PO STA (23:11)
[2019-06-12] MEDS ORDERED: MORPHINE SULFATE 4 MG/ML SYRINGE IVP STA (23:11)
[2019-06-12] MEDS ORDERED: KETOROLAC 30 MG/ML 1 ML VIAL IVP STA (23:11)
--- NOTE | 2019-06-12 23:19 | ED ---
Abdominal Pain HPI - General Chief Complaint: Abdominal Pain Stated Complaint: side pain, blood in urine Time Seen by Provider: 06/12/19 23:03 Source: patient Mode of arrival: wheelchair Limitations: no limitations - History of Present Illness Initial Comments: 44-year-old female patient presents to the emergency department today for evaluation of right flank pain radiating to the right lower quadrant abdomen. Patient states this pain has been present for the last week. States she was admitted for 3 days and discharged home. He states they're concerned for possible kidney stone. Patient states that she has had 2 episodes of hematuria today. Denies any dysuria, urinary urgency, urinary frequency. She states she has been nauseated but denies any vomiting. States she did have a temperature 102.0F earlier today. She has been taking Percocet at home without relief of symptoms. States she did have a dull injection around 5 PM after receiving an SI joint injection. Patient denies any recent rash, shortness breath, chest pain, diarrhea, constipation, back pain, numbness, tingling, dizziness, weakness, headache, visual changes, or any other complaints. - Related Data Home Medications Medication Instructions Recorded Confirmed Potassium Chloride [Klor-Con 8] 8 meq PO DAILY 01/06/14 06/12/19 Ipratropium/Albuterol Sulfate 2 puff INHALATION RT-BID 07/26/15 06/12/19 [Combivent Respimat Inhaler] Spironolactone [Aldactone] 25 mg PO DAILY 02/05/17 06/12/19 Albuterol Inhaler [Ventolin Hfa 2 puff INHALATION RT-Q4H PRN 12/10/18 06/12/19 Inhaler] oxyCODONE-APAP 10-325MG [Percocet 1 tab PO TID 12/31/18 06/12/19 10-325 mg] QUEtiapine [SEROquel] 50 mg PO HS 02/25/19 06/12/19 diphenhydrAMINE [Benadryl] 50 mg PO TID 02/25/19 06/12/19 Citalopram Hydrobromide [CeleXA] 20 mg PO DAILY 05/17/19 06/12/19 Fluticasone Nasal [place] [Flonase 1 spray EA NOSTRIL HS 05/17/19 06/12/19 Nasal [place]] ALPRAZolam [Xanax] 0.5 mg PO TID PRN 06/02/19 06/12/19 Ergocalciferol [Vitamin D2 50,000 unit PO WE 06/02/19 06/12/19 (DRISDOL)] Milnacipran HCl [Savella] 25 mg PO HS 06/02/19 06/12/19 Citalopram Hydrobromide [CeleXA] 40 mg PO DAILY 06/12/19 06/12/19 Previous Rx's Medication Instructions Recorded Zolpidem [Ambien] 10 mg PO HS #3 tab 12/13/18 Nitrofurantoin Monohyd/M-Cryst 100 mg PO Q12HR #14 cap 06/13/19 [Macrobid] Tamsulosin HCl [Flomax] 0.4 mg PO DAILY #7 cap 06/13/19 Allergies Allergy/AdvReac Type Severity Reaction Status Date / Time adhesive Allergy Rash/Hives Verified 06/12/19 23:34 amoxicillin Allergy Anaphylaxis Verified 06/12/19 23:34 azithromycin [From Zithromax] Allergy Anaphylaxis Verified 06/12/19 23:34 cephalexin monohydrate Allergy Anaphylaxis Verified 06/12/19 23:34 [From Keflex] ciprofloxacin Allergy Anaphylaxis Verified 06/12/19 23:34 clindamycin Allergy Anaphylaxis Verified 06/12/19 23:34 Iodinated Contrast Media Allergy Swelling Verified 06/12/19 23:34 [Iodinated Contrast- Oral and IV Dye] levofloxacin [From Levaquin] Allergy Rash/Hives Verified 06/12/19 23:34 naproxen Allergy Anaphylaxis Verified 06/12/19 23:34 NSAIDS (Non-Steroidal Allergy Rash/Hives Verified 06/12/19 23:34 Anti-Inflamma shellfish derived Allergy Anaphylaxis Verified 06/12/19 23:34 Sulfa (Sulfonamide Allergy Anaphylaxis Verified 06/12/19 23:34 Antibiotics) sulfamethoxazole Allergy Anaphylaxis Verified 06/12/19 23:34 [From Bactrim] tramadol Allergy Unknown Verified 06/12/19 23:34 trimethoprim [From Bactrim] Allergy Anaphylaxis Verified 06/12/19 23:34 Review of Systems ROS Statement: Those systems with pertinent positive or pertinent negative responses have been documented in the HPI. ROS Other: All systems not noted in ROS Statement are negative. 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 IBS, cellulitis of the chin, History of Any Multi-Drug Resistant Organisms: MRSA Date of last positivie culture/infection: 07/2016 MDRO Source:: chin Past Surgical History: Section, Cholecystectomy, Hysterectomy, Tubal Ligation Additional Past Surgical History / Comment(s): oral surgery . Pancreas biopsy May 2015. Past Anesthesia/Blood Transfusion Reactions: No Reported Reaction Past Psychological History: ADD/ADHD, Anxiety, Bipolar, Depression Smoking Status: Current every day smoker Past Alcohol Use History: None Reported Past Drug Use History: Marijuana - Past Family History Father Family Medical History: No Reported History Additional Family Medical History / Comment(s): ADOPTED General Exam Limitations: no limitations General appearance: alert, in no apparent distress, other (This is a well- developed, well-nourished adult female patient in mild distress related to pain. Vital signs upon presentation are temperature 98.4F, pulse 108, respirations 20, blood pressure 188/96, pulse ox 94% on room air.) Eye exam: Present: normal appearance, PERRL, EOMI. Absent: scleral icterus, conjunctival injection, periorbital swelling ENT exam: Present: normal exam, normal oropharynx, mucous membranes moist Respiratory exam: Present: normal lung sounds bilaterally. Absent: respiratory distress, wheezes, rales, rhonchi, stridor Cardiovascular Exam: Present: regular rate, normal rhythm, normal heart sounds. Absent: systolic murmur, diastolic murmur, rubs, gallop, clicks GI/Abdominal exam: Present: soft, tenderness (Generalized abdominal tenderness), normal bowel sounds. Absent: distended, guarding, rebound, rigid Back exam: Present: normal inspection, CVA tenderness (R) Neurological exam: Present: alert, oriented X3, CN II-XII intact Psychiatric exam: Present: normal affect, normal mood Skin exam: Present: warm, dry, intact, normal color. Absent: rash Course Vital Signs 06/12/19 22:51 Temperature 98.4 F Pulse Rate 108 H Respiratory 20 Rate Blood Pressure 188/96 O2 Sat by Pulse 94 L Oximetry Medical Decision Making - Medical Decision Making 44-year-old female patient presents to the emergency department today for evaluation of right lower quadrant and right low back pain. Physical examination did reveal generalized abdominal tenderness. She is afebrile normal vital signs. Labs reviewed and were overall unremarkable, urinalysis did show presence of white and red blood cells in the urine. Patient will be treated for urinary tract infection. Urine was sent for culture. She'll also be started on Flomax a possibility of kidney stone, of which she has a history. She does have pain medication at home she is instructed to take these as directed. Return parameters were discussed in detail. She verbalizes understanding and agrees with this plan. - Lab Data Result diagrams: 06/12/19 23:24 06/12/19 23:24 Lab Results 06/12/19 06/12/19 06/12/19 Range/Units 23:24 23:24 23:24 WBC 11.0 H (3.8-10.6) k/uL RBC 5.21 (3.80-5.40) m/uL Hgb 14.3 (11.4-16.0) gm/dL Hct 45.4 (34.0-46.0) % MCV 87.1 (80.0-100.0) fL MCH 27.5 (25.0-35.0) pg MCHC 31.5 (31.0-37.0) g/dL RDW 13.9 (11.5-15.5) % Plt Count 352 (150-450) k/uL Neutrophils % 88 % Lymphocytes % 8 % Monocytes % 1 % Eosinophils % 2 % Basophils % 1 % Neutrophils # 9.6 H (1.3-7.7) k/uL Lymphocytes # 0.9 L (1.0-4.8) k/uL Monocytes # 0.1 (0-1.0) k/uL Eosinophils # 0.2 (0-0.7) k/uL Basophils # 0.1 (0-0.2) k/uL Sodium 139 (137-145) mmol/L Potassium 5.2 H (3.5-5.1) mmol/L Chloride 99 (98-107) mmol/L Carbon Dioxide 27 (22-30) mmol/L Anion Gap 13 mmol/L BUN 25 H (7-17) mg/dL Creatinine 0.81 (0.52-1.04) mg/dL Est GFR (CKD-EPI)AfAm >90 (>60 ml/min/1.73 sqM) Est GFR (CKD-EPI)NonAf 89 (>60 ml/min/1.73 sqM) Glucose 202 H (74-99) mg/dL Calcium 9.8 (8.4-10.2) mg/dL Total Bilirubin 0.3 (0.2-1.3) mg/dL AST 29 (14-36) U/L ALT 28 (9-52) U/L Alkaline Phosphatase 100 (38-126) U/L Total Protein 7.4 (6.3-8.2) g/dL Albumin 4.6 (3.5-5.0) g/dL Amylase 62 (30-110) U/L Lipase 179 (23-300) U/L Urine Color Yellow Urine Appearance Cloudy H (Clear) Urine pH 5.5 (5.0-8.0) Ur Specific [place] 1.041 H (1.001-1.035) Urine Protein 2+ H (Negative) Urine Glucose (UA) Negative (Negative) Urine Ketones Trace H (Negative) Urine Blood Moderate H (Negative) Urine Nitrite Negative (Negative) Urine Bilirubin Negative (Negative) Urine Urobilinogen 2.0 (<2.0) mg/dL Ur Leukocyte Esterase Moderate H (Negative) Urine RBC 38 H (0-5) /hpf Urine WBC 92 H (0-5) /hpf Urine WBC Clumps Rare H (None) /hpf Ur Squamous Epith Cells 7 H (0-4) /hpf Urine Bacteria Rare H (None) /hpf Hyaline Casts 38 H (0-2) /lpf Urine Mucus Moderate H (None) /hpf - Radiology Data Radiology results: report reviewed, image reviewed KUB x-ray was obtained. Report was reviewed in its entirety. Impression by Dr. Chacon shows nonacute abdomen. No change. Disposition Clinical Impression: Right flank pain, Urinary tract infection Disposition: HOME SELF-CARE Condition: Good Instructions (If sedation given, give patient instructions): Urinary Tract Infection in Women (ED), Abdominal Pain (ED) Additional Instructions: Increase fluids. Complete antibiotic prescription and full. Follow-up with the primary care physician for recheck in 1-2 days. Return to the emergency department immediately for any new, worsening, or concerning symptoms. Prescriptions: Tamsulosin HCl [Flomax] 0.4 mg PO DAILY #7 cap Nitrofurantoin Monohyd/M-Cryst [Macrobid] 100 mg PO Q12HR #14 cap Is patient prescribed a controlled substance at d/c from ED?: No Referrals: Kaleb Huston DO [Primary Care Provider] - 1-2 days Time of Disposition: 00:37
[2019-06-12 23:34] LABS: Basophils # (A) 0.1 k/uL (0-0.2); Basophils % (A) 1 %; Eosinophils # (A) 0.2 k/uL (0-0.7); Eosinophils % (A) 2 %; HCT 45.4 % (34.0-46.0); HGB 14.3 gm/dL (11.4-16.0); Lymphocytes # (A) 0.9 k/uL (1.0-4.8); Lymphocytes % (A) 8 %; MCH 27.5 pg (25.0-35.0); MCHC 31.5 g/dL (31.0-37.0); MCV 87.1 fL (80.0-100.0); Mean Platelet Volume 5.8; Monocytes # (A) 0.1 k/uL (0-1.0); Monocytes % (A) 1 %; Neutrophils # (A) 9.6 k/uL (1.3-7.7); Neutrophils % (A) 88 %; Platelet Count 352 k/uL (150-450); RBC 5.21 m/uL (3.80-5.40); RDW 13.9 % (11.5-15.5)
[2019-06-12] MEDS ORDERED: diphenhydrAMINE 25 MG CAP PO STA (23:44)
[2019-06-12 23:48] LABS: ALT 28 U/L (9-52); AST 29 U/L (14-36); African American GFR (CKD) >90 (>60 ml/min/1.73 sqM); Albumin 4.6 g/dL (3.5-5.0); Alkaline Phosphatase 100 U/L (38-126); Amylase 62 U/L (30-110); Anion Gap 13 mmol/L; Blood Urea Nitrogen 25 mg/dL (7-17); Calcium 9.8 mg/dL (8.4-10.2); Carbon Dioxide 27 mmol/L (22-30); Chloride 99 mmol/L (98-107); Glucose 202 mg/dL (74-99); Non-African American GFR(CKD) 89 (>60 ml/min/1.73 sqM); Potassium 5.2 mmol/L (3.5-5.1); Sodium 139 mmol/L (137-145); Total Bilirubin 0.3 mg/dL (0.2-1.3); Total Protein 7.4 g/dL (6.3-8.2)
[2019-06-13 00:01] LABS: Appearance,Urine Cloudy (Clear); Bacteria,Urine Rare /hpf; Bilirubin,Urine Negative (Negative); Blood,Urine Moderate (Negative); Color,Urine Yellow; Glucose,Urine (UA) Negative (Negative); Hyaline Casts,Urine 38 /lpf (0-2); Ketones,Urine Trace (Negative); Leukocyte Esterase,Urine Moderate (Negative); Mucus,Urine Moderate /hpf; Nitrite,Urine Negative (Negative); PH, Urine 5.5 (5.0-8.0); Protein,Urine 2+ (Negative); RBC,Urine 38 /hpf (0-5); Specific Gravity,Urine 1.041 (1.001-1.035); Squamous Epithelial Cell,Urine 7 /hpf (0-4)
--- NOTE | 2019-06-13 00:04 | XR ---
EXAMINATION TYPE: XR KUB DATE OF EXAM: 06/12/2019 COMPARISON: 04/06/2019 HISTORY: Abdominal pain TECHNIQUE: 2 views upright FINDINGS: Bowel gas pattern is normal. There is no sign of intestinal obstruction or pneumoperitoneum . Fecal pattern is normal. There is no evidence of a mass. Lung bases are clear. There are no patholo gic calcifications. There are clips from cholecystectomy. IMPRESSION: Nonacute abdomen. No change.
[2019-06-13] MEDS ORDERED: MORPHINE SULFATE 2 MG/ML SYRINGE IVP STA (00:34)
[2019-06-13] MEDS ORDERED: NITROFURANTOIN MONOHYD/M-CRYST 100 MG CAP PO STA (00:38)
[2019-06-13 01:22] VITALS: BP 179/95; PULSE 95; RESP 18
== END 2019-06-13 01:22 | disposition home or self-care (01) ==
LOC: EC 22:45
DX: R31.9 Hematuria, unspecified (principal); N39.0 Urinary tract infection, site not specified; I50.9 Heart failure, unspecified; J44.9 Chronic obstructive pulmonary disease, unspecified; M79.7 Fibromyalgia; M06.9 Rheumatoid arthritis, unspecified; G89.29 Other chronic pain; M54.5 Low back pain; F90.9 Attention-deficit hyperactivity disorder, unspecified type; F41.9 Anxiety disorder, unspecified; F31.9 Bipolar disorder, unspecified; F17.200 Nicotine dependence, unspecified, uncomplicated; Z88.1 Allergy status to other antibiotic agents; Z88.0 Allergy status to penicillin; Z91.041 Radiographic dye allergy status; Z88.8 Allergy status to other drugs, medicaments and biological substances; Z88.6 Allergy status to analgesic agent; Z88.2 Allergy status to sulfonamides; Z79.891 Long term (current) use of opiate analgesic; Z79.51 Long term (current) use of inhaled steroids; Z79.899 Other long term (current) drug therapy; Z87.442 Personal history of urinary calculi; Z86.14 Personal history of Methicillin resistant Staphylococcus aureus infection; Z86.73 Personal history of transient ischemic attack (TIA), and cerebral infarction without residual deficits; Z88.5 Allergy status to narcotic agent
CPT/HCPCS: 36415; 80053; 82150; 83690; 85025; 81001; 87086; 74018; 99284; 96374; 96375 ×2; 96376; 96361 ×2; J2270 ×2; J2405; J1885; 87077; 87186

== ENCOUNTER 2019-06-17 20:58 | Emergency (ER) | payer MEDICARE ==
[2019-06-17 21:12] VITALS: BP 194/102; TEMP 98.2
[2019-06-17 21:59] LABS: Appearance,Urine Clear (Clear); Bilirubin,Urine Negative (Negative); Blood,Urine Small (Negative); Color,Urine Yellow; Glucose,Urine (UA) Negative (Negative); Hyaline Casts,Urine 1 /lpf (0-2); Ketones,Urine Negative (Negative); Leukocyte Esterase,Urine Trace (Negative); Mucus,Urine Rare /hpf; Nitrite,Urine Negative (Negative); Protein,Urine Trace (Negative); RBC,Urine 20 /hpf (0-5); Specific Gravity,Urine 1.023 (1.001-1.035); Squamous Epithelial Cell,Urine 2 /hpf (0-4); Urobilinogen,Urine <2.0 mg/dL (<2.0); WBC,Urine 7 /hpf (0-5)
--- NOTE | 2019-06-17 22:02 | ED ---
Abdominal Pain HPI - General Chief Complaint: Abdominal Pain Stated Complaint: Side pain Time Seen by Provider: 06/17/19 21:20 Source: patient Mode of arrival: wheelchair Limitations: no limitations - History of Present Illness Initial Comments: Patient is a 44-year-old female with history of fibromyalgia, heart failure COPD is presenting to the emergency department with a chief complaint of abdominal pain. She states the pain began last night it appears to be exacerbated with full inspiration. She states the pain radiates along the right flank region into the right upper back region. She states the pain is exacerbated with palpation. She denies any diaphoretic episodes, nausea or vomiting. Patient reports the pain is sharp that appears to be exacerbated with left rotation. Patient denies any night sweats or chills. Patient does report shortness of breath but she states that is her baseline due to her COPD. Patient takes Percocet daily for pain. Patient also reports increased urgency or frequency and dysuria over the last week. - Related Data Home Medications Medication Instructions Recorded Confirmed Potassium Chloride [Klor-Con 8] 8 meq PO DAILY 01/06/14 06/12/19 Ipratropium/Albuterol Sulfate 2 puff INHALATION RT-BID 07/26/15 06/12/19 [Combivent Respimat Inhaler] Spironolactone [Aldactone] 25 mg PO DAILY 02/05/17 06/12/19 Albuterol Inhaler [Ventolin Hfa 2 puff INHALATION RT-Q4H PRN 12/10/18 06/12/19 Inhaler] oxyCODONE-APAP 10-325MG [Percocet 1 tab PO TID 12/31/18 06/12/19 10-325 mg] QUEtiapine [SEROquel] 50 mg PO HS 02/25/19 06/12/19 diphenhydrAMINE [Benadryl] 50 mg PO TID 02/25/19 06/12/19 Citalopram Hydrobromide [CeleXA] 20 mg PO DAILY 05/17/19 06/12/19 Fluticasone Nasal [place] [Flonase 1 spray EA NOSTRIL HS 05/17/19 06/12/19 Nasal [place]] ALPRAZolam [Xanax] 0.5 mg PO TID PRN 06/02/19 06/12/19 Ergocalciferol [Vitamin D2 50,000 unit PO WE 06/02/19 06/12/19 (DRISDOL)] Milnacipran HCl [Savella] 25 mg PO HS 06/02/19 06/12/19 Citalopram Hydrobromide [CeleXA] 40 mg PO DAILY 06/12/19 06/12/19 Previous Rx's Medication Instructions Recorded Zolpidem [Ambien] 10 mg PO HS #3 tab 12/13/18 Nitrofurantoin Monohyd/M-Cryst 100 mg PO Q12HR #14 cap 06/13/19 [Macrobid] Tamsulosin HCl [Flomax] 0.4 mg PO DAILY #7 cap 06/13/19 Sulfamethox-Tmp 800-160Mg [Bactrim 1 each PO Q12HR #20 tab 06/18/19 Ds] Allergies Allergy/AdvReac Type Severity Reaction Status Date / Time adhesive Allergy Rash/Hives Verified 06/17/19 21:09 amoxicillin Allergy Anaphylaxis Verified 06/17/19 21:09 azithromycin [From Zithromax] Allergy Anaphylaxis Verified 06/17/19 21:09 cephalexin monohydrate Allergy Anaphylaxis Verified 06/17/19 21:09 [From Keflex] ciprofloxacin Allergy Anaphylaxis Verified 06/17/19 21:09 clindamycin Allergy Anaphylaxis Verified 06/17/19 21:09 Iodinated Contrast Media Allergy Swelling Verified 06/17/19 21:09 [Iodinated Contrast- Oral and IV Dye] levofloxacin [From Levaquin] Allergy Rash/Hives Verified 06/17/19 21:09 naproxen Allergy Anaphylaxis Verified 06/17/19 21:09 NSAIDS (Non-Steroidal Allergy Rash/Hives Verified 06/17/19 21:09 Anti-Inflamma shellfish derived Allergy Anaphylaxis Verified 06/17/19 21:09 Sulfa (Sulfonamide Allergy Anaphylaxis Verified 06/17/19 21:09 Antibiotics) sulfamethoxazole Allergy Anaphylaxis Verified 06/17/19 21:09 [From Bactrim] tramadol Allergy Unknown Verified 06/17/19 21:09 trimethoprim [From Bactrim] Allergy Anaphylaxis Verified 06/17/19 21:09 Review of Systems ROS Statement: Those systems with pertinent positive or pertinent negative responses have been documented in the HPI. ROS Other: All systems not noted in ROS Statement are negative. 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 IBS, cellulitis of the chin, History of Any Multi-Drug Resistant Organisms: MRSA Date of last positivie culture/infection: 07/2016 MDRO Source:: chin Past Surgical History: Section, Cholecystectomy, Hysterectomy, Tubal Ligation Additional Past Surgical History / Comment(s): oral surgery . Pancreas biopsy May 2015. Past Anesthesia/Blood Transfusion Reactions: No Reported Reaction Past Psychological History: ADD/ADHD, Anxiety, Bipolar, Depression Smoking Status: Current every day smoker Past Alcohol Use History: None Reported Past Drug Use History: Marijuana - Past Family History Father Family Medical History: No Reported History Additional Family Medical History / Comment(s): ADOPTED General Exam Limitations: no limitations General appearance: alert, in no apparent distress, obese Head exam: Present: atraumatic, normocephalic, normal inspection Eye exam: Present: normal appearance Pupils: Present: normal accommodation ENT exam: Present: normal exam, normal oropharynx, mucous membranes moist, TM's normal bilaterally, normal external ear exam Neck exam: Present: normal inspection, full ROM Respiratory exam: Present: wheezes (Bilateral mild) Cardiovascular Exam: Present: regular rate, normal rhythm, normal heart sounds GI/Abdominal exam: Present: soft, tenderness (Right upper quadrant tenderness, upper right flank pain, epigastric pain), normal bowel sounds. Absent: distended, guarding, rebound, rigid Extremities exam: Present: normal inspection, full ROM Back exam: Present: normal inspection, full ROM Neurological exam: Present: alert, oriented X3 Psychiatric exam: Present: normal affect, normal mood Skin exam: Present: warm, dry, intact, normal color Course Vital Signs 06/17/19 06/17/19 06/18/19 21:09 23:51 00:01 Temperature 98.2 F Pulse Rate 93 92 92 Respiratory 20 Rate Blood Pressure 194/102 O2 Sat by Pulse 93 L Oximetry 06/18/19 00:20 Temperature Pulse Rate 65 Respiratory 16 Rate Blood Pressure O2 Sat by Pulse 98 Oximetry Medical Decision Making - Medical Decision Making Patient is a 44-year-old female with history of fibromyalgia, heart failure COPD is presenting to emergency Department with a chief complaint of abdominal pain. Patient appears to have UTI symptoms for over a week. Last time she was in the ED she was diagnosed with a renal stone. On physical exam patient does have right upper quadrant tenderness, upper right flank region tenderness with some radiation to the right upper back. Pain is reproducible with palpation and specific anatomic movements. Patient is requesting pain control. Patient was admitted recently for intractable pain with similar symptoms. UA showing a possible urinary tract infection with some red blood cells which is suspect to be from the renal stone. Patient does have a CBC showing very mild leukocytosis. Chest x-ray is unremarkable. EKG is showing normal sinus rhythm. Initial troponin is negative. Patient given an DuoNeb breathing treatment with improvement in symptoms. Patient also given algesia and antiemetics. Patient reports her symptoms are for the most part completely resolved. I suspect the pain to be secondary to the renal stone which is evident in the UA. Considering the patient has UTI type symptoms and we'll treat her with Bactrim for 7 days. Patient has tolerated the medication before. Patient has been evaluated in the ED multiple times for abdominal pain or chest pain which always returned negative. Patient is requesting pain control. Patient states she has an appointment with a primary care on Tuesday. Strict return parameters were thoroughly discussed the patient was understanding and agreeable. Case discussed with physician. - Lab Data Result diagrams: 06/17/19 22:40 06/17/19 22:40 Lab Results 06/17/19 06/17/19 06/17/19 Range/Units 21:45 22:40 22:40 WBC 12.7 H (3.8-10.6) k/uL RBC 5.44 H (3.80-5.40) m/uL Hgb 14.6 (11.4-16.0) gm/dL Hct 47.0 H (34.0-46.0) % MCV 86.4 (80.0-100.0) fL MCH 26.9 (25.0-35.0) pg MCHC 31.2 (31.0-37.0) g/dL RDW 14.1 (11.5-15.5) % Plt Count 377 (150-450) k/uL Neutrophils % 59 % Lymphocytes % 32 % Monocytes % 5 % Eosinophils % 2 % Basophils % 0 % Neutrophils # 7.5 (1.3-7.7) k/uL Lymphocytes # 4.0 (1.0-4.8) k/uL Monocytes # 0.6 (0-1.0) k/uL Eosinophils # 0.3 (0-0.7) k/uL Basophils # 0.0 (0-0.2) k/uL PT (9.0-12.0) sec INR (<1.2) APTT (22.0-30.0) sec Sodium 137 (137-145) mmol/L Potassium 5.8 H (3.5-5.1) mmol/L Chloride 102 (98-107) mmol/L Carbon Dioxide 27 (22-30) mmol/L Anion Gap 8 mmol/L BUN 14 (7-17) mg/dL Creatinine 0.68 (0.52-1.04) mg/dL Est GFR (CKD-EPI)AfAm >90 (>60 ml/min/1.73 sqM) Est GFR (CKD-EPI)NonAf >90 (>60 ml/min/1.73 sqM) Glucose 106 H (74-99) mg/dL Calcium 9.1 (8.4-10.2) mg/dL Magnesium 1.6 (1.6-2.3) mg/dL Total Bilirubin 1.0 (0.2-1.3) mg/dL AST 41 H (14-36) U/L ALT 14 (9-52) U/L Alkaline Phosphatase 79 (38-126) U/L Troponin I (0.000-0.034) ng/mL NT-Pro-B Natriuret Pep pg/mL Total Protein 7.7 (6.3-8.2) g/dL Albumin 4.4 (3.5-5.0) g/dL Urine Color Yellow Urine Appearance Clear (Clear) Urine pH 7.0 (5.0-8.0) Ur Specific [place] 1.023 (1.001-1.035) Urine Protein Trace H (Negative) Urine Glucose (UA) Negative (Negative) Urine Ketones Negative (Negative) Urine Blood Small H (Negative) Urine Nitrite Negative (Negative) Urine Bilirubin Negative (Negative) Urine Urobilinogen <2.0 (<2.0) mg/dL Ur Leukocyte Esterase Trace H (Negative) Urine RBC 20 H (0-5) /hpf Urine WBC 7 H (0-5) /hpf Ur Squamous Epith Cells 2 (0-4) /hpf Hyaline Casts 1 (0-2) /lpf Urine Mucus Rare H (None) /hpf 06/17/19 06/17/19 06/17/19 Range/Units 22:40 22:40 22:40 WBC (3.8-10.6) k/uL RBC (3.80-5.40) m/uL Hgb (11.4-16.0) gm/dL Hct (34.0-46.0) % MCV (80.0-100.0) fL MCH (25.0-35.0) pg MCHC (31.0-37.0) g/dL RDW (11.5-15.5) % Plt Count (150-450) k/uL Neutrophils % % Lymphocytes % % Monocytes % % Eosinophils % % Basophils % % Neutrophils # (1.3-7.7) k/uL Lymphocytes # (1.0-4.8) k/uL Monocytes # (0-1.0) k/uL Eosinophils # (0-0.7) k/uL Basophils # (0-0.2) k/uL PT 10.5 (9.0-12.0) sec INR 1.0 (<1.2) APTT 24.2 (22.0-30.0) sec Sodium (137-145) mmol/L Potassium (3.5-5.1) mmol/L Chloride (98-107) mmol/L Carbon Dioxide (22-30) mmol/L Anion Gap mmol/L BUN (7-17) mg/dL Creatinine (0.52-1.04) mg/dL Est GFR (CKD-EPI)AfAm (>60 ml/min/1.73 sqM) Est GFR (CKD-EPI)NonAf (>60 ml/min/1.73 sqM) Glucose (74-99) mg/dL Calcium (8.4-10.2) mg/dL Magnesium (1.6-2.3) mg/dL Total Bilirubin (0.2-1.3) mg/dL AST (14-36) U/L ALT (9-52) U/L Alkaline Phosphatase (38-126) U/L Troponin I <0.012 (0.000-0.034) ng/mL NT-Pro-B Natriuret Pep 277 pg/mL Total Protein (6.3-8.2) g/dL Albumin (3.5-5.0) g/dL Urine Color Urine Appearance (Clear) Urine pH (5.0-8.0) Ur Specific [place] (1.001-1.035) Urine Protein (Negative) Urine Glucose (UA) (Negative) Urine Ketones (Negative) Urine Blood (Negative) Urine Nitrite (Negative) Urine Bilirubin (Negative) Urine Urobilinogen (<2.0) mg/dL Ur Leukocyte Esterase (Negative) Urine RBC (0-5) /hpf Urine WBC (0-5) /hpf Ur Squamous Epith Cells (0-4) /hpf Hyaline Casts (0-2) /lpf Urine Mucus (None) /hpf - EKG Data EKG Comments: Normal sinus rhythm, no ST changes, inverted T-wave in lead 3. Ventricular rate 92, TX interval 140, QRS duration 74, QT/QTC 374/462 Disposition Clinical Impression: Abdominal pain Disposition: HOME SELF-CARE Condition: Stable Instructions (If sedation given, give patient instructions): Abdominal Pain (ED) Additional Instructions: Please see prescribe medication as directed. Please follow-up with primary care. Please return to emergency department if symptoms worsen. Prescriptions: Sulfamethox-Tmp 800-160Mg [Bactrim Ds] 1 each PO Q12HR #20 tab Is patient prescribed a controlled substance at d/c from ED?: No Referrals: Kaleb Huston DO [Primary Care Provider] - 1-2 days Time of Disposition: 00:16
[2019-06-17 22:56] LABS: Basophils % (A) 0 %; Eosinophils # (A) 0.3 k/uL (0-0.7); Eosinophils % (A) 2 %; HGB 14.6 gm/dL (11.4-16.0); Lymphocytes % (A) 32 %; MCH 26.9 pg (25.0-35.0); MCHC 31.2 g/dL (31.0-37.0); MCV 86.4 fL (80.0-100.0); Mean Platelet Volume 5.9; Monocytes # (A) 0.6 k/uL (0-1.0); Monocytes % (A) 5 %; Neutrophils # (A) 7.5 k/uL (1.3-7.7); Neutrophils % (A) 59 %; Platelet Count 377 k/uL (150-450); RBC 5.44 m/uL (3.80-5.40); RDW 14.1 % (11.5-15.5); WBC 12.7 k/uL (3.8-10.6)
[2019-06-17 23:01] LABS: Partial Thromboplastin Time 24.2 sec (22.0-30.0); Prothrombin Time 10.5 sec (9.0-12.0)
[2019-06-17 23:05] LABS: African American GFR (CKD) >90 (>60 ml/min/1.73 sqM); Anion Gap 8 mmol/L; Blood Urea Nitrogen 14 mg/dL (7-17); Calcium 9.1 mg/dL (8.4-10.2); Carbon Dioxide 27 mmol/L (22-30); Chloride 102 mmol/L (98-107); Non-African American GFR(CKD) >90 (>60 ml/min/1.73 sqM); Sodium 137 mmol/L (137-145)
[2019-06-17] MEDS ORDERED: HYDROmorphone 1 MG/ML 1 ML SYRINGE IVP STA (23:05)
[2019-06-17 23:10] LABS: ALT 14 U/L (9-52); AST 41 U/L (14-36); Albumin 4.4 g/dL (3.5-5.0); Glucose 106 mg/dL (74-99); Magnesium 1.6 mg/dL (1.6-2.3); Potassium 5.8 mmol/L (3.5-5.1); Total Protein 7.7 g/dL (6.3-8.2)
[2019-06-17 23:11] LABS: Alkaline Phosphatase 79 U/L (38-126)
--- NOTE | 2019-06-17 23:18 | XR ---
EXAMINATION TYPE: XR chest 2V DATE OF EXAM: 06/17/2019 COMPARISON: 06/01/2019 HISTORY: Chest pain TECHNIQUE: Frontal and lateral views of the chest are obtained. FINDINGS: Heart and mediastinum are normal. Lungs are clear. Diaphragm is normal. Bony thorax appear s normal. IMPRESSION: Normal chest. No change.
[2019-06-17] MEDS ORDERED: IPRATROPIUM-ALBUTEROL 3 ML NEB INHALATION STA (23:34)
[2019-06-18] MEDS ORDERED: SULFAMETH-TMP DS STARTER PACK 2 TAB BTL PO STA (00:15)
[2019-06-18 00:29] VITALS: PULSE 65; RESP 16
== END 2019-06-18 00:20 | disposition home or self-care (01) ==
LOC: EC 20:58
DX: R10.13 Epigastric pain (principal); R31.9 Hematuria, unspecified; D72.829 Elevated white blood cell count, unspecified; R06.2 Wheezing; M54.6 Pain in thoracic spine; R06.02 Shortness of breath; R35.0 Frequency of micturition; R30.0 Dysuria; R39.15 Urgency of urination; J44.9 Chronic obstructive pulmonary disease, unspecified; I50.9 Heart failure, unspecified; M79.7 Fibromyalgia; M06.9 Rheumatoid arthritis, unspecified; F31.9 Bipolar disorder, unspecified; F41.9 Anxiety disorder, unspecified; F17.200 Nicotine dependence, unspecified, uncomplicated; Z88.0 Allergy status to penicillin; Z88.1 Allergy status to other antibiotic agents; Z88.2 Allergy status to sulfonamides; Z88.5 Allergy status to narcotic agent; Z88.6 Allergy status to analgesic agent; Z91.013 Allergy to seafood; Z91.041 Radiographic dye allergy status; Z91.048 Other nonmedicinal substance allergy status; Z79.51 Long term (current) use of inhaled steroids; Z79.891 Long term (current) use of opiate analgesic; Z79.899 Other long term (current) drug therapy; Z86.14 Personal history of Methicillin resistant Staphylococcus aureus infection; Z87.442 Personal history of urinary calculi; Z90.49 Acquired absence of other specified parts of digestive tract
CPT/HCPCS: 36415; 94640; 93005; 83880; 80053; 83735; 84484; 85025; 85610; 85730; 81001; 71046; 99284; 96374; J1170

== ENCOUNTER 2019-08-26 17:42 | Emergency (ER) | payer MEDICARE ==
[2019-08-26] MEDS ORDERED: SODIUM CHLORIDE 0.9% 1,000 ML IV ONE (18:05)
[2019-08-26] MEDS ORDERED: IPRATROPIUM 0.5 MG/2.5 ML NEBU INHALATION STA (18:05)
[2019-08-26] MEDS ORDERED: methylPREDNISolone SOD SUCCI 125 MG/2 ML VIAL IV STA (18:05)
[2019-08-26] MEDS ORDERED: ALBUTEROL NEBULIZED 2.5 MG/3 ML INHALATION STA (18:05)
[2019-08-26] MEDS ORDERED: ACETAMINOPHEN TAB 500 MG TAB PO STA (18:07)
[2019-08-26] MEDS ORDERED: diphenhydrAMINE 50 MG/ML 1 ML VIAL IVP STA (18:29)
--- NOTE | 2019-08-26 18:30 | ED ---
URI HPI - General Chief Complaint: Upper Respiratory Infection Stated Complaint: fever, cough, aches Time Seen by Provider: 08/26/19 17:59 Source: patient Mode of arrival: ambulatory Limitations: no limitations - History of Present Illness Initial Comments: 44-year-old female patient presents to the emergency department today for evaluation of respiratory symptoms, fever, and headache. Patient's issues and sick for the last 3 days with symptoms. Patient states she is also having increased back pain and believes she may have a urinary tract infection. States she is having dysuria and urinary frequency. Denies any nausea or vomiting. Denies abdominal pain. Patient is reporting a productive cough, wheezing, sore throat, and bilateral ear pain. States that she has been doing home breathing treatments without much relief. States that her grandson is sick with similar symptoms. Patient denies any recent rash, diarrhea, constipation, back pain, numbness, tingling, dizziness, weakness, headache, visual changes, or any other complaints. - Related Data Home Medications Medication Instructions Recorded Confirmed Potassium Chloride [Klor-Con 8] 8 meq PO DAILY 01/06/14 06/12/19 Ipratropium/Albuterol Sulfate 2 puff INHALATION RT-BID 07/26/15 06/12/19 [Combivent Respimat Inhaler] Spironolactone [Aldactone] 25 mg PO DAILY 02/05/17 06/12/19 Albuterol Inhaler [Ventolin Hfa 2 puff INHALATION RT-Q4H PRN 12/10/18 06/12/19 Inhaler] oxyCODONE-APAP 10-325MG [Percocet 1 tab PO TID 12/31/18 06/12/19 10-325 mg] QUEtiapine [SEROquel] 50 mg PO HS 02/25/19 06/12/19 diphenhydrAMINE [Benadryl] 50 mg PO TID 02/25/19 06/12/19 Citalopram Hydrobromide [CeleXA] 20 mg PO DAILY 05/17/19 06/12/19 Fluticasone Nasal [place] [Flonase 1 spray EA NOSTRIL HS 05/17/19 06/12/19 Nasal [place]] ALPRAZolam [Xanax] 0.5 mg PO TID PRN 06/02/19 06/12/19 Ergocalciferol [Vitamin D2 50,000 unit PO WE 06/02/19 06/12/19 (DRISDOL)] Milnacipran HCl [Savella] 25 mg PO HS 06/02/19 06/12/19 Citalopram Hydrobromide [CeleXA] 40 mg PO DAILY 06/12/19 06/12/19 Previous Rx's Medication Instructions Recorded Zolpidem [Ambien] 10 mg PO HS #3 tab 12/13/18 Nitrofurantoin Monohyd/M-Cryst 100 mg PO Q12HR #14 cap 06/13/19 [Macrobid] Tamsulosin HCl [Flomax] 0.4 mg PO DAILY #7 cap 06/13/19 Sulfamethox-Tmp 800-160Mg [Bactrim 1 each PO Q12HR #20 tab 06/18/19 Ds] Doxycycline [Vibramycin] 100 mg PO BID #14 cap 08/26/19 Tamsulosin HCl [Flomax] 0.4 mg PO DAILY #7 cap 08/26/19 guaiFENesin-DM 600/30MG [Mucinex 1 each PO Q12HR #10 tab.er.12h 08/26/19 Dm] predniSONE 50 mg PO DAILY #5 tablet 08/26/19 Allergies Allergy/AdvReac Type Severity Reaction Status Date / Time adhesive Allergy Rash/Hives Verified 08/26/19 17:51 amoxicillin Allergy Anaphylaxis Verified 08/26/19 17:51 azithromycin [From Zithromax] Allergy Anaphylaxis Verified 08/26/19 17:51 cephalexin monohydrate Allergy Anaphylaxis Verified 08/26/19 17:51 [From Keflex] ciprofloxacin Allergy Anaphylaxis Verified 08/26/19 17:51 clindamycin Allergy Anaphylaxis Verified 08/26/19 17:51 Iodinated Contrast Media Allergy Swelling Verified 08/26/19 17:51 [Iodinated Contrast- Oral and IV Dye] levofloxacin [From Levaquin] Allergy Rash/Hives Verified 08/26/19 17:51 naproxen Allergy Anaphylaxis Verified 08/26/19 17:51 NSAIDS (Non-Steroidal Allergy Rash/Hives Verified 08/26/19 17:51 Anti-Inflamma shellfish derived Allergy Anaphylaxis Verified 08/26/19 17:51 Sulfa (Sulfonamide Allergy Anaphylaxis Verified 08/26/19 17:51 Antibiotics) sulfamethoxazole Allergy Anaphylaxis Verified 08/26/19 17:51 [From Bactrim] tramadol Allergy Unknown Verified 08/26/19 17:51 trimethoprim [From Bactrim] Allergy Anaphylaxis Verified 08/26/19 17:51 Review of Systems ROS Statement: Those systems with pertinent positive or pertinent negative responses have been documented in the HPI. ROS Other: All systems not noted in ROS Statement are negative. 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 IBS, cellulitis of the chin, History of Any Multi-Drug Resistant Organisms: MRSA Date of last positivie culture/infection: 07/2016 MDRO Source:: chin Past Surgical History: Section, Cholecystectomy, Hysterectomy, Tubal Ligation Additional Past Surgical History / Comment(s): oral surgery . Pancreas biopsy May 2015. Past Anesthesia/Blood Transfusion Reactions: No Reported Reaction Past Psychological History: ADD/ADHD, Anxiety, Bipolar, Depression Smoking Status: Current every day smoker Past Alcohol Use History: None Reported Past Drug Use History: Marijuana - Past Family History Father Family Medical History: No Reported History Additional Family Medical History / Comment(s): ADOPTED General Exam Limitations: no limitations General appearance: alert, in no apparent distress, other (This is a well- developed, well-nourished adult female patient in no acute distress. Vital signs upon presentation are temperature 99.2F, pulse 119, respirations 20, blood pressure 195/109, pulse ox 95% on room air) Eye exam: Present: normal appearance, PERRL, EOMI. Absent: scleral icterus, conjunctival injection, periorbital swelling ENT exam: Present: mucous membranes moist, TM's normal bilaterally. Absent: normal oropharynx (Pharyngeal erythema) Respiratory exam: Present: wheezes (Inspiratory and expiratory wheezing noted in the posterior lung field). Absent: normal lung sounds bilaterally, respiratory distress, rales, rhonchi, stridor Cardiovascular Exam: Present: normal rhythm, tachycardia, normal heart sounds. Absent: systolic murmur, diastolic murmur, rubs, gallop, clicks GI/Abdominal exam: Present: soft, normal bowel sounds. Absent: distended, tenderness, guarding, rebound, rigid Neurological exam: Present: alert, oriented X3, CN II-XII intact Psychiatric exam: Present: normal affect, normal mood Skin exam: Present: warm, dry, intact, normal color. Absent: rash Course Vital Signs 08/26/19 08/26/19 08/26/19 17:49 18:13 18:44 Temperature 99.2 F Pulse Rate 119 H 120 H 116 H Respiratory 20 Rate Blood Pressure 195/109 O2 Sat by Pulse 95 Oximetry Medical Decision Making - Medical Decision Making 44-year-old female patient with multiple medical problems presents to the emergency department today for evaluation of upper respiratory infection, fever, and back pain and urinary symptoms. Physical examination reveals wheezing breath sounds. Patient did have some left CVA tenderness. Labs reviewed and did reveal elevated lactic acid 2.5, this is most likely from dehydration we will give fluids here. Urinalysis did reveal red blood cells. Patient has a history of kidney stones with more pain on the left it is likely this is causing her back pain and urinary symptoms. There is no sign of infection in the urine. We will treat with Flomax patient is have home pain medications. She'll be instructed to follow-up with urology for further evaluation. Influenza testing was negative. Most likely patient has viral upper respiratory infection with acute bronchitis. She does have breathing treatments at home she is urged to do these every 4 hours. Prednisone and Mucinex to her regimen. Will give doxycycline with history of COPD. she is instructed to follow-up with her primary care physician for recheck in 1-2 days. Return parameters were discussed in detail. She verbalizes understanding and agrees with this plan. - Lab Data Result diagrams: 08/26/19 18:54 08/26/19 18:54 Lab Results 08/26/19 08/26/19 08/26/19 Range/Units 18:20 18:54 18:54 WBC 9.9 (3.8-10.6) k/uL RBC 5.57 H (3.80-5.40) m/uL Hgb 15.2 (11.4-16.0) gm/dL Hct 46.9 H (34.0-46.0) % MCV 84.2 (80.0-100.0) fL MCH 27.3 (25.0-35.0) pg MCHC 32.4 (31.0-37.0) g/dL RDW 12.8 (11.5-15.5) % Plt Count 321 (150-450) k/uL Neutrophils % 79 % Lymphocytes % 16 % Monocytes % 2 % Eosinophils % 1 % Basophils % 1 % Neutrophils # 7.8 H (1.3-7.7) k/uL Lymphocytes # 1.6 (1.0-4.8) k/uL Monocytes # 0.2 (0-1.0) k/uL Eosinophils # 0.1 (0-0.7) k/uL Basophils # 0.1 (0-0.2) k/uL Sodium 138 (137-145) mmol/L Potassium 4.3 (3.5-5.1) mmol/L Chloride 102 (98-107) mmol/L Carbon Dioxide 27 (22-30) mmol/L Anion Gap 9 mmol/L BUN 11 (7-17) mg/dL Creatinine 0.52 (0.52-1.04) mg/dL Est GFR (CKD-EPI)AfAm >90 (>60 ml/min/1.73 sqM) Est GFR (CKD-EPI)NonAf >90 (>60 ml/min/1.73 sqM) Glucose 139 H (74-99) mg/dL Plasma Lactic Acid Srinivas (0.7-2.0) mmol/L Calcium 9.7 (8.4-10.2) mg/dL Total Bilirubin 0.4 (0.2-1.3) mg/dL AST 25 (14-36) U/L ALT 16 (4-34) U/L Alkaline Phosphatase 102 (38-126) U/L Total Protein 7.6 (6.3-8.2) g/dL Albumin 4.5 (3.5-5.0) g/dL Urine Color Urine Appearance (Clear) Urine pH (5.0-8.0) Ur Specific [place] (1.001-1.035) Urine Protein (Negative) Urine Glucose (UA) (Negative) Urine Ketones (Negative) Urine Blood (Negative) Urine Nitrite (Negative) Urine Bilirubin (Negative) Urine Urobilinogen (<2.0) mg/dL Ur Leukocyte Esterase (Negative) Urine RBC (0-5) /hpf Urine WBC (0-5) /hpf Ur Squamous Epith Cells (0-4) /hpf Urine Mucus (None) /hpf Influenza Type A RNA Not Detected (Not Detectd) Influenza Type B (PCR) Not Detected (Not Detectd) 08/26/19 08/26/19 Range/Units 18:54 19:10 WBC (3.8-10.6) k/uL RBC (3.80-5.40) m/uL Hgb (11.4-16.0) gm/dL Hct (34.0-46.0) % MCV (80.0-100.0) fL MCH (25.0-35.0) pg MCHC (31.0-37.0) g/dL RDW (11.5-15.5) % Plt Count (150-450) k/uL Neutrophils % % Lymphocytes % % Monocytes % % Eosinophils % % Basophils % % Neutrophils # (1.3-7.7) k/uL Lymphocytes # (1.0-4.8) k/uL Monocytes # (0-1.0) k/uL Eosinophils # (0-0.7) k/uL Basophils # (0-0.2) k/uL Sodium (137-145) mmol/L Potassium (3.5-5.1) mmol/L Chloride (98-107) mmol/L Carbon Dioxide (22-30) mmol/L Anion Gap mmol/L BUN (7-17) mg/dL Creatinine (0.52-1.04) mg/dL Est GFR (CKD-EPI)AfAm (>60 ml/min/1.73 sqM) Est GFR (CKD-EPI)NonAf (>60 ml/min/1.73 sqM) Glucose (74-99) mg/dL Plasma Lactic Acid Srinivas 2.6 H* (0.7-2.0) mmol/L Calcium (8.4-10.2) mg/dL Total Bilirubin (0.2-1.3) mg/dL AST (14-36) U/L ALT (4-34) U/L Alkaline Phosphatase (38-126) U/L Total Protein (6.3-8.2) g/dL Albumin (3.5-5.0) g/dL Urine Color Yellow Urine Appearance Cloudy H (Clear) Urine pH 8.0 (5.0-8.0) Ur Specific [place] 1.033 (1.001-1.035) Urine Protein 1+ H (Negative) Urine Glucose (UA) Negative (Negative) Urine Ketones Negative (Negative) Urine Blood Small H (Negative) Urine Nitrite Negative (Negative) Urine Bilirubin Negative (Negative) Urine Urobilinogen 2.0 (<2.0) mg/dL Ur Leukocyte Esterase Negative (Negative) Urine RBC 54 H (0-5) /hpf Urine WBC 4 (0-5) /hpf Ur Squamous Epith Cells 13 H (0-4) /hpf Urine Mucus Many H (None) /hpf Influenza Type A RNA (Not Detectd) Influenza Type B (PCR) (Not Detectd) - Radiology Data Radiology results: report reviewed, image reviewed Two-view x-ray of the chest is obtained. Report is reviewed in its entirety. Impression by Dr. Chacon shows normal chest. No change. Disposition Clinical Impression: Viral upper respiratory illness, Kidney stone Disposition: HOME SELF-CARE Condition: Good Instructions (If sedation given, give patient instructions): Kidney Stones (ED ), Upper Respiratory Infection (ED) Additional Instructions: Increase fluids. Rest. Complete medications as directed. Follow-up with urology for further evaluation regarding her kidney stones. Follow up with your primary care physician for recheck in 1-2 days. Continue home breathing treatments, days at least every 4 hours. Return to the emergency department immediately for any new, worsening, or concerning symptoms. Prescriptions: Tamsulosin HCl [Flomax] 0.4 mg PO DAILY #7 cap guaiFENesin-DM 600/30MG [Mucinex Dm] 1 each PO Q12HR #10 tab.er.12h predniSONE 50 mg PO DAILY #5 tablet Is patient prescribed a controlled substance at d/c from ED?: No Referrals: Kaleb Huston DO [Primary Care Provider] - 1-2 days Aj Dalal MD [STAFF PHYSICIAN] - 1-2 days Time of Disposition: 20:29
--- NOTE | 2019-08-26 19:15 | XR ---
EXAMINATION TYPE: XR chest 2V DATE OF EXAM: 08/26/2019 COMPARISON: 06/17/2019 HISTORY: Chest pain TECHNIQUE: FINDINGS: Heart and mediastinum are normal. Lungs are clear. Diaphragm is normal. Bony thorax appears normal. IMPRESSION: Normal chest. No change.
[2019-08-26 19:22] LABS: Basophils # (A) 0.1 k/uL (0-0.2); Basophils % (A) 1 %; Eosinophils # (A) 0.1 k/uL (0-0.7); Eosinophils % (A) 1 %; HCT 46.9 % (34.0-46.0); HGB 15.2 gm/dL (11.4-16.0); Lymphocytes # (A) 1.6 k/uL (1.0-4.8); Lymphocytes % (A) 16 %; MCH 27.3 pg (25.0-35.0); MCHC 32.4 g/dL (31.0-37.0); MCV 84.2 fL (80.0-100.0); Mean Platelet Volume 7.6; Monocytes # (A) 0.2 k/uL (0-1.0); Monocytes % (A) 2 %; Neutrophils # (A) 7.8 k/uL (1.3-7.7); Neutrophils % (A) 79 %; Platelet Count 321 k/uL (150-450); RBC 5.57 m/uL (3.80-5.40); RDW 12.8 % (11.5-15.5); WBC 9.9 k/uL (3.8-10.6)
[2019-08-26 19:37] LABS: ALT 16 U/L (4-34); AST 25 U/L (14-36); African American GFR (CKD) >90 (>60 ml/min/1.73 sqM); Albumin 4.5 g/dL (3.5-5.0); Alkaline Phosphatase 102 U/L (38-126); Anion Gap 9 mmol/L; Blood Urea Nitrogen 11 mg/dL (7-17); Calcium 9.7 mg/dL (8.4-10.2); Carbon Dioxide 27 mmol/L (22-30); Chloride 102 mmol/L (98-107); Glucose 139 mg/dL (74-99); Non-African American GFR(CKD) >90 (>60 ml/min/1.73 sqM); Potassium 4.3 mmol/L (3.5-5.1); Sodium 138 mmol/L (137-145); Total Bilirubin 0.4 mg/dL (0.2-1.3); Total Protein 7.6 g/dL (6.3-8.2)
[2019-08-26] MEDS ORDERED: HYDROmorphone 1 MG/ML 1 ML SYRINGE IVP STA (20:06)
[2019-08-26 20:08] LABS: Appearance,Urine Cloudy (Clear); Bilirubin,Urine Negative (Negative); Blood,Urine Small (Negative); Color,Urine Yellow; Glucose,Urine (UA) Negative (Negative); Ketones,Urine Negative (Negative); Leukocyte Esterase,Urine Negative (Negative); Mucus,Urine Many /hpf; Nitrite,Urine Negative (Negative); Protein,Urine 1+ (Negative); RBC,Urine 54 /hpf (0-5); Specific Gravity,Urine 1.033 (1.001-1.035); Squamous Epithelial Cell,Urine 13 /hpf (0-4); WBC,Urine 4 /hpf (0-5)
[2019-08-26] MEDS ORDERED: TAMSULOSIN 0.4 MG CAP.ER.24H PO STA (20:15)
[2019-08-26 20:45] VITALS: BP 165/90; PULSE 101; RESP 18; TEMP 98.9
== END 2019-08-26 20:45 | disposition home or self-care (01) ==
LOC: EC 17:42
DX: J06.9 Acute upper respiratory infection, unspecified (principal); N20.0 Calculus of kidney; J44.9 Chronic obstructive pulmonary disease, unspecified; I50.9 Heart failure, unspecified; F41.9 Anxiety disorder, unspecified; F31.9 Bipolar disorder, unspecified; F17.200 Nicotine dependence, unspecified, uncomplicated; Z79.899 Other long term (current) drug therapy; Z79.51 Long term (current) use of inhaled steroids; Z88.0 Allergy status to penicillin; Z88.1 Allergy status to other antibiotic agents; Z91.048 Other nonmedicinal substance allergy status; Z88.6 Allergy status to analgesic agent; Z88.2 Allergy status to sulfonamides; Z88.5 Allergy status to narcotic agent; Z88.8 Allergy status to other drugs, medicaments and biological substances; Z91.013 Allergy to seafood; Z86.73 Personal history of transient ischemic attack (TIA), and cerebral infarction without residual deficits
CPT/HCPCS: 36415; 94640; 80053; 83605; 85025; 81001; 87040; 87502; 71046; 99284; 96374; 96375 ×2; 96361; J1200; J2930; J1170

== ENCOUNTER 2019-08-31 06:37 | Emergency (ER) | payer MEDICARE ==
[2019-08-31 06:43] VITALS: RESP 18
[2019-08-31] MEDS ORDERED: MORPHINE SULFATE 4 MG/ML SYRINGE IVP STA (06:58)
[2019-08-31] MEDS ORDERED: ONDANSETRON 4 MG/2 ML VIAL IVP STA (06:58)
[2019-08-31] MEDS ORDERED: SODIUM CHLORIDE 0.9% 1,000 ML IV STA (06:58)
--- NOTE | 2019-08-31 07:02 | ED ---
Abdominal Pain HPI - General Chief Complaint: Abdominal Pain Stated Complaint: Abd Pain Time Seen by Provider: 08/31/19 06:46 Source: patient Mode of arrival: ambulatory - History of Present Illness Initial Comments: Patient is a 44-year-old female presenting to emergency Department with complaints of left-sided lower abdominal pain for the past few hours. Patient states she was in here 2 days ago and was diagnosed with upper respiratory infection but also a kidney stone. Patient states she has not been able to get comfortable for the last few hours and was rolling around in pain. She admits to be nauseous. She states she has been having urinary frequency. No burning. History of hysterectomy, no other abdominal surgeries. She denies chest pain, shortness of breath, fever. She is still coughing from her URI. She denies any vomiting, diarrhea. She has no other complaints at this time. Upon arrival to the ER, her BP is elevated however she states this is normal when she is in pain. Rest of vitals are normal. - Related Data Home Medications Medication Instructions Recorded Confirmed Potassium Chloride [Klor-Con 8] 8 meq PO DAILY 01/06/14 06/12/19 Ipratropium/Albuterol Sulfate 2 puff INHALATION RT-BID 07/26/15 06/12/19 [Combivent Respimat Inhaler] Spironolactone [Aldactone] 25 mg PO DAILY 02/05/17 06/12/19 Albuterol Inhaler [Ventolin Hfa 2 puff INHALATION RT-Q4H PRN 12/10/18 06/12/19 Inhaler] oxyCODONE-APAP 10-325MG [Percocet 1 tab PO TID 12/31/18 06/12/19 10-325 mg] QUEtiapine [SEROquel] 50 mg PO HS 02/25/19 06/12/19 diphenhydrAMINE [Benadryl] 50 mg PO TID 02/25/19 06/12/19 Citalopram Hydrobromide [CeleXA] 20 mg PO DAILY 05/17/19 06/12/19 Fluticasone Nasal [place] [Flonase 1 spray EA NOSTRIL HS 05/17/19 06/12/19 Nasal [place]] ALPRAZolam [Xanax] 0.5 mg PO TID PRN 06/02/19 06/12/19 Ergocalciferol [Vitamin D2 50,000 unit PO WE 06/02/19 06/12/19 (DRISDOL)] Milnacipran HCl [Savella] 25 mg PO HS 06/02/19 06/12/19 Citalopram Hydrobromide [CeleXA] 40 mg PO DAILY 06/12/19 06/12/19 Previous Rx's Medication Instructions Recorded Zolpidem [Ambien] 10 mg PO HS #3 tab 12/13/18 Nitrofurantoin Monohyd/M-Cryst 100 mg PO Q12HR #14 cap 06/13/19 [Macrobid] Tamsulosin HCl [Flomax] 0.4 mg PO DAILY #7 cap 06/13/19 Sulfamethox-Tmp 800-160Mg [Bactrim 1 each PO Q12HR #20 tab 06/18/19 Ds] Doxycycline [Vibramycin] 100 mg PO BID #14 cap 08/26/19 Tamsulosin HCl [Flomax] 0.4 mg PO DAILY #7 cap 08/26/19 guaiFENesin-DM 600/30MG [Mucinex 1 each PO Q12HR #10 tab.er.12h 08/26/19 Dm] predniSONE 50 mg PO DAILY #5 tablet 08/26/19 Allergies Allergy/AdvReac Type Severity Reaction Status Date / Time adhesive Allergy Rash/Hives Verified 08/31/19 06:43 amoxicillin Allergy Anaphylaxis Verified 08/31/19 06:43 azithromycin [From Zithromax] Allergy Anaphylaxis Verified 08/31/19 06:43 cephalexin monohydrate Allergy Anaphylaxis Verified 08/31/19 06:43 [From Keflex] ciprofloxacin Allergy Anaphylaxis Verified 08/31/19 06:43 clindamycin Allergy Anaphylaxis Verified 08/31/19 06:43 Iodinated Contrast Media Allergy Swelling Verified 08/31/19 06:43 [Iodinated Contrast- Oral and IV Dye] levofloxacin [From Levaquin] Allergy Rash/Hives Verified 08/31/19 06:43 naproxen Allergy Anaphylaxis Verified 08/31/19 06:43 NSAIDS (Non-Steroidal Allergy Rash/Hives Verified 08/31/19 06:43 Anti-Inflamma shellfish derived Allergy Anaphylaxis Verified 08/31/19 06:43 Sulfa (Sulfonamide Allergy Anaphylaxis Verified 08/31/19 06:43 Antibiotics) sulfamethoxazole Allergy Anaphylaxis Verified 08/31/19 06:43 [From Bactrim] tramadol Allergy Unknown Verified 08/31/19 06:43 trimethoprim [From Bactrim] Allergy Anaphylaxis Verified 08/31/19 06:43 Review of Systems ROS Statement: Those systems with pertinent positive or pertinent negative responses have been documented in the HPI. ROS Other: All systems not noted in ROS Statement are negative. 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 IBS, cellulitis of the chin, History of Any Multi-Drug Resistant Organisms: MRSA Date of last positivie culture/infection: 07/2016 MDRO Source:: chin Past Surgical History: Section, Cholecystectomy, Hysterectomy, Tubal Ligation Additional Past Surgical History / Comment(s): oral surgery . Pancreas biopsy May 2015. Past Anesthesia/Blood Transfusion Reactions: No Reported Reaction Past Psychological History: ADD/ADHD, Anxiety, Bipolar, Depression Smoking Status: Current every day smoker Past Alcohol Use History: None Reported Past Drug Use History: Marijuana - Past Family History Father Family Medical History: No Reported History Additional Family Medical History / Comment(s): ADOPTED General Exam - General Exam Comments Initial Comments: GENERAL: Well-appearing, well-nourished and in no acute distress. HEAD: Atraumatic, normocephalic. EYES: Pupils equal round and reactive to light, extraocular movements intact, sclera anicteric, conjunctiva are normal. ENT: TMs normal, nares patent, oropharynx clear without exudates. Moist mucous membranes. NECK: Normal range of motion, supple without lymphadenopathy or JVD. LUNGS: Mild wheezes on exam, no rales or rhonchi. HEART: Regular rate and rhythm without murmurs, rubs or gallops. ABDOMEN: Mild tenderness to palpation of left lower quadrant. Soft, normoactive bowel sounds. No guarding, no rebound. No masses appreciated. : Deferred EXTREMITIES: Normal range of motion, no pitting or edema. No clubbing or cyanosis. NEUROLOGICAL: Normal speech, normal gait. PSYCH: Normal mood, normal affect. SKIN: Warm, Dry, normal turgor, no rashes or lesions noted. Course Vital Signs 08/31/19 06:41 Temperature 98.1 F Pulse Rate 99 Respiratory 18 Rate Blood Pressure 202/109 O2 Sat by Pulse 96 Oximetry Medical Decision Making - Medical Decision Making Patient is a 44-year-old female presenting with left-sided lower quadrant pain since early this morning. She was recently diagnosed with a kidney stone and has a history of them. She is afebrile, BP is elevated on arrival but this is her normal when she is in pain. Labs were reviewed and shows slight leukocytosis, urine shows no signs of infection. She received fluids, pain meds, Zofran. She reports improvement in her symptoms. I discussed these findings with the patient. We discussed with the kidney stone seems to be passing. She will be discharged with a starter pack of Tylenol 3. Patient will follow up with her PCP. She is stable for discharge at this time. She is in agreement with this plan of care. Return parameters were discussed with the patient she verbalized understanding. - Lab Data Result diagrams: 08/31/19 07:28 08/31/19 07:28 Lab Results 08/31/19 08/31/19 08/31/19 Range/Units 06:54 07:28 07:28 WBC 13.5 H (3.8-10.6) k/uL RBC 5.32 (3.80-5.40) m/uL Hgb 14.5 (11.4-16.0) gm/dL Hct 45.5 (34.0-46.0) % MCV 85.6 (80.0-100.0) fL MCH 27.3 (25.0-35.0) pg MCHC 31.9 (31.0-37.0) g/dL RDW 12.7 (11.5-15.5) % Plt Count 335 (150-450) k/uL Neutrophils % 49 % Lymphocytes % 43 % Monocytes % 4 % Eosinophils % 2 % Basophils % 1 % Neutrophils # 6.6 (1.3-7.7) k/uL Lymphocytes # 5.8 H (1.0-4.8) k/uL Monocytes # 0.6 (0-1.0) k/uL Eosinophils # 0.2 (0-0.7) k/uL Basophils # 0.1 (0-0.2) k/uL Manual Slide Review Performed Sodium 137 (137-145) mmol/L Potassium 4.0 (3.5-5.1) mmol/L Chloride 97 L (98-107) mmol/L Carbon Dioxide 32 H (22-30) mmol/L Anion Gap 8 mmol/L BUN 18 H (7-17) mg/dL Creatinine 0.66 (0.52-1.04) mg/dL Est GFR (CKD-EPI)AfAm >90 (>60 ml/min/1.73 sqM) Est GFR (CKD-EPI)NonAf >90 (>60 ml/min/1.73 sqM) Glucose 83 (74-99) mg/dL Calcium 9.2 (8.4-10.2) mg/dL Total Bilirubin 0.4 (0.2-1.3) mg/dL AST 16 (14-36) U/L ALT 11 (4-34) U/L Alkaline Phosphatase 96 (38-126) U/L Total Protein 7.2 (6.3-8.2) g/dL Albumin 4.3 (3.5-5.0) g/dL Urine Color Light Yellow Urine Appearance Clear (Clear) Urine pH 6.0 (5.0-8.0) Ur Specific [place] 1.012 (1.001-1.035) Urine Protein Negative (Negative) Urine Glucose (UA) Negative (Negative) Urine Ketones Negative (Negative) Urine Blood Trace H (Negative) Urine Nitrite Negative (Negative) Urine Bilirubin Negative (Negative) Urine Urobilinogen <2.0 (<2.0) mg/dL Ur Leukocyte Esterase Negative (Negative) Urine RBC 2 (0-5) /hpf Urine WBC 1 (0-5) /hpf Ur Squamous Epith Cells 2 (0-4) /hpf Urine Mucus Rare H (None) /hpf Disposition Clinical Impression: Viral upper respiratory illness, Kidney stone Disposition: HOME SELF-CARE Condition: Stable Instructions (If sedation given, give patient instructions): Kidney Stones (ED) Additional Instructions: Please return to the Emergency Department if symptoms worsen or any other concerns. Continue with Flomax as prescribed. May take Tylenol for pain relief. May take Tylenol 3 for severe pain. Follow-up with PCP. Is patient prescribed a controlled substance at d/c from ED?: No Referrals: Robel,Kaleb, DO [Primary Care Provider] - 1-2 days
[2019-08-31 07:43] LABS: Appearance,Urine Clear (Clear); Bilirubin,Urine Negative (Negative); Blood,Urine Trace (Negative); Color,Urine Light Yellow; Glucose,Urine (UA) Negative (Negative); Ketones,Urine Negative (Negative); Leukocyte Esterase,Urine Negative (Negative); Mucus,Urine Rare /hpf; Nitrite,Urine Negative (Negative); Protein,Urine Negative (Negative); RBC,Urine 2 /hpf (0-5); Specific Gravity,Urine 1.012 (1.001-1.035); Squamous Epithelial Cell,Urine 2 /hpf (0-4); Urobilinogen,Urine <2.0 mg/dL (<2.0); WBC,Urine 1 /hpf (0-5)
[2019-08-31 08:05] LABS: Basophils # (A) 0.1 k/uL (0-0.2); Basophils % (A) 1 %; Eosinophils # (A) 0.2 k/uL (0-0.7); Eosinophils % (A) 2 %; HCT 45.5 % (34.0-46.0); HGB 14.5 gm/dL (11.4-16.0); Lymphocytes # (A) 5.8 k/uL (1.0-4.8); Lymphocytes % (A) 43 %; MCH 27.3 pg (25.0-35.0); MCHC 31.9 g/dL (31.0-37.0); MCV 85.6 fL (80.0-100.0); Monocytes # (A) 0.6 k/uL (0-1.0); Monocytes % (A) 4 %; Neutrophils # (A) 6.6 k/uL (1.3-7.7); Neutrophils % (A) 49 %; Platelet Count 335 k/uL (150-450); RBC 5.32 m/uL (3.80-5.40); RDW 12.7 % (11.5-15.5); WBC 13.5 k/uL (3.8-10.6)
[2019-08-31 08:16] LABS: ALT 11 U/L (4-34); AST 16 U/L (14-36); African American GFR (CKD) >90 (>60 ml/min/1.73 sqM); Albumin 4.3 g/dL (3.5-5.0); Alkaline Phosphatase 96 U/L (38-126); Anion Gap 8 mmol/L; Blood Urea Nitrogen 18 mg/dL (7-17); Calcium 9.2 mg/dL (8.4-10.2); Carbon Dioxide 32 mmol/L (22-30); Chloride 97 mmol/L (98-107); Glucose 83 mg/dL (74-99); Non-African American GFR(CKD) >90 (>60 ml/min/1.73 sqM); Sodium 137 mmol/L (137-145); Total Bilirubin 0.4 mg/dL (0.2-1.3); Total Protein 7.2 g/dL (6.3-8.2)
[2019-08-31] MEDS ORDERED: ACET/COD 300 MG/30 MG STARTER PACK 6 TAB BTL PO STA (08:26)
[2019-08-31 08:39] VITALS: BP 165/88; PULSE 80; TEMP 98
== END 2019-08-31 08:34 | disposition home or self-care (01) ==
LOC: EC 06:37
DX: N20.0 Calculus of kidney (principal); B34.9 Viral infection, unspecified; J06.9 Acute upper respiratory infection, unspecified; D72.829 Elevated white blood cell count, unspecified; R03.0 Elevated blood-pressure reading, without diagnosis of hypertension; I50.9 Heart failure, unspecified; J44.9 Chronic obstructive pulmonary disease, unspecified; M06.9 Rheumatoid arthritis, unspecified; M79.7 Fibromyalgia; F90.9 Attention-deficit hyperactivity disorder, unspecified type; F41.9 Anxiety disorder, unspecified; F31.9 Bipolar disorder, unspecified; G89.29 Other chronic pain; F17.200 Nicotine dependence, unspecified, uncomplicated; Z79.899 Other long term (current) drug therapy; Z79.51 Long term (current) use of inhaled steroids; Z79.891 Long term (current) use of opiate analgesic; Z88.2 Allergy status to sulfonamides; Z88.1 Allergy status to other antibiotic agents; Z91.013 Allergy to seafood; Z88.6 Allergy status to analgesic agent; Z91.041 Radiographic dye allergy status; Z88.0 Allergy status to penicillin; Z91.048 Other nonmedicinal substance allergy status; Z88.5 Allergy status to narcotic agent; Z90.49 Acquired absence of other specified parts of digestive tract; Z87.19 Personal history of other diseases of the digestive system; Z86.73 Personal history of transient ischemic attack (TIA), and cerebral infarction without residual deficits; Z86.14 Personal history of Methicillin resistant Staphylococcus aureus infection; Z98.890 Other specified postprocedural states
CPT/HCPCS: 36415; 80053; 85025; 81001; 99284; 96374; 96375; 96361; J2270; J2405

== ENCOUNTER 2019-09-09 22:19 | Emergency (ER) | payer MEDICARE ==
[2019-09-09 23:00] VITALS: TEMP 98.9
[2019-09-09] MEDS ORDERED: SODIUM CHLORIDE 0.9% 1,000 ML IV STA (23:14)
[2019-09-09] MEDS ORDERED: MORPHINE SULFATE 4 MG/ML SYRINGE IVP STA (23:17)
[2019-09-09] MEDS ORDERED: ONDANSETRON 4 MG/2 ML VIAL IVP STA (23:17)
[2019-09-10 00:02] LABS: Basophils % (A) 0 %; Eosinophils # (A) 0.3 k/uL (0-0.7); Eosinophils % (A) 3 %; HCT 43.9 % (34.0-46.0); HGB 13.9 gm/dL (11.4-16.0); Lymphocytes # (A) 3.3 k/uL (1.0-4.8); Lymphocytes % (A) 29 %; MCH 26.6 pg (25.0-35.0); MCHC 31.6 g/dL (31.0-37.0); MCV 84.2 fL (80.0-100.0); Mean Platelet Volume 6.9; Monocytes # (A) 0.7 k/uL (0-1.0); Monocytes % (A) 6 %; Neutrophils # (A) 6.9 k/uL (1.3-7.7); Neutrophils % (A) 61 %; Platelet Count 290 k/uL (150-450); RBC 5.22 m/uL (3.80-5.40); RDW 13.2 % (11.5-15.5); WBC 11.5 k/uL (3.8-10.6)
[2019-09-10 00:05] LABS: Appearance,Urine Clear (Clear); Bacteria,Urine Rare /hpf; Bilirubin,Urine Negative (Negative); Blood,Urine Moderate (Negative); Color,Urine Yellow; Glucose,Urine (UA) Negative (Negative); Ketones,Urine Trace (Negative); Leukocyte Esterase,Urine Negative (Negative); Mucus,Urine Few /hpf; Nitrite,Urine Negative (Negative); Protein,Urine 1+ (Negative); RBC,Urine 19 /hpf (0-5); Specific Gravity,Urine 1.032 (1.001-1.035); Squamous Epithelial Cell,Urine 3 /hpf (0-4); Urobilinogen,Urine <2.0 mg/dL (<2.0); WBC,Urine 3 /hpf (0-5)
[2019-09-10 00:11] LABS: ALT 23 U/L (4-34); AST 27 U/L (14-36); African American GFR (CKD) >90 (>60 ml/min/1.73 sqM); Albumin 4.2 g/dL (3.5-5.0); Alcohol <10 mg/dL; Alkaline Phosphatase 88 U/L (38-126); Anion Gap 7 mmol/L; Blood Urea Nitrogen 20 mg/dL (7-17); Calcium 9.4 mg/dL (8.4-10.2); Carbon Dioxide 29 mmol/L (22-30); Chloride 101 mmol/L (98-107); Glucose 126 mg/dL (74-99); Non-African American GFR(CKD) >90 (>60 ml/min/1.73 sqM); Potassium 3.9 mmol/L (3.5-5.1); Sodium 137 mmol/L (137-145); Total Bilirubin 0.3 mg/dL (0.2-1.3)
[2019-09-10 00:15] LABS: Amphetamine Screen,Urine Not Detected (NotDetected); Benzodiazepines Screen,Urine Detected (NotDetected); Cocaine Screen,Urine Not Detected (NotDetected); Opiate Screen,Urine Detected (NotDetected); Phencyclidine Screen,Urine Not Detected (NotDetected); Tricyclic Antidepressant,Urine Detected (NotDetected)
[2019-09-10 00:16] LABS: Barbiturate Screen,Urine Not Detected (NotDetected); Methadone Screen, Urine Not Detected (NotDetected); Oxycodone Screen, Urine Detected (NotDetected); Urn Cannabinoid Scrn Detected (NotDetected)
--- NOTE | 2019-09-10 00:20 | CT ---
EXAMINATION TYPE: CT brain logan wo con DATE OF EXAM: 09/09/2019 COMPARISON: CT brain 07/16/2018 HISTORY: Seizure Hit head and neck. Pain. CT DLP: 1540.2 mGycm Automated exposure control for dose reduction was used. Multiple axial sections were obtained of the brain without contrast. Multiple axial sections were obt ained from the skull base to T1 vertebra without contrast. FINDINGS: Ventricles and sulci appear normal. There is no mass effect nor midline shift. There is no sign of in tracranial hemorrhage. The calvarium is intact. There is no evidence of cerebral edema. Cervical vertebra show mild straightening. There is fusion anomaly of C5 and C6 vertebra. The disc sp aces are otherwise normal. Skull base is intact. Facet joints appear normal. Prevertebral soft tissue s appear normal. IMPRESSION: Negative CT scan of the brain. No change. Negative CT scan cervical spine. No fracture.
--- NOTE | 2019-09-10 00:30 | CT ---
EXAMINATION TYPE: CT lumbar spine wo con DATE OF EXAM: 09/09/2019 COMPARISON: None HISTORY: Seizure CT DLP: 1673.6 mGycm Automated exposure control for dose reduction was used. Multiple axial sections were obtained from the level of L1-S3 vertebra without contrast. Lumbar vertebra have normal alignment. Disc spaces are normal. Posterior elements are intact. There i s no compression fracture. There is no lumbar paraspinal mass. Sacroiliac joints appear normal. I see no bony destructive process. IMPRESSION: Normal CT scan of the lumbar spine. No fracture.
--- NOTE | 2019-09-10 00:30 | ED ---
General Adult HPI - General Chief complaint: Nausea/Vomiting/Diarrhea Stated complaint: Seizure Source: patient Mode of arrival: wheelchair Limitations: no limitations - History of Present Illness Initial comments: The patient is a 44-year-old female with past history of seizure sorter who presents to the emergency department with reported breakthrough seizure. She states her made her come into the emergency department because she had 3 seizures today. States that she normally gets them every 4 months. She used to see Dr. Olsen who had her on Dilantin. States that she hasn't seen a neurologist in several months. She is not currently taking any seizure medic ations. Cannot provide much detail of the seizures however states that her over that she had 3 of them, each to which she fell and hit her head. She is complaining of right-sided neck pain and low back pain. She also reports to nausea, vomiting and diarrhea which has been present over the past several days. No sick contacts or recent travel. Denies any abdominal pain. No changes in her bladder habits. No fevers or chills. There are no other alleviating, precipitating or modifying factors - Related Data Home Medications Medication Instructions Recorded Confirmed Potassium Chloride [Klor-Con 8] 8 meq PO DAILY 01/06/14 09/09/19 Ipratropium/Albuterol Sulfate 2 puff INHALATION RT-BID 07/26/15 09/09/19 [Combivent Respimat Inhaler] Spironolactone [Aldactone] 25 mg PO DAILY 02/05/17 09/09/19 Albuterol Inhaler [Ventolin Hfa 2 puff INHALATION RT-Q4H PRN 12/10/18 09/09/19 Inhaler] oxyCODONE-APAP 10-325MG [Percocet 1 tab PO TID 12/31/18 09/09/19 10-325 mg] QUEtiapine [SEROquel] 50 mg PO HS 02/25/19 09/09/19 diphenhydrAMINE [Benadryl] 50 mg PO TID 02/25/19 09/09/19 Citalopram Hydrobromide [CeleXA] 20 mg PO DAILY 05/17/19 09/09/19 Fluticasone Nasal [place] [Flonase 1 spray EA NOSTRIL HS 05/17/19 09/09/19 Nasal [place]] ALPRAZolam [Xanax] 0.5 mg PO TID PRN 06/02/19 09/09/19 Ergocalciferol [Vitamin D2 50,000 unit PO WE 06/02/19 09/09/19 (DRISDOL)] Milnacipran HCl [Savella] 25 mg PO HS 06/02/19 09/09/19 Citalopram Hydrobromide [CeleXA] 40 mg PO DAILY 06/12/19 09/09/19 Previous Rx's Medication Instructions Recorded Zolpidem [Ambien] 10 mg PO HS #3 tab 12/13/18 Nitrofurantoin Monohyd/M-Cryst 100 mg PO Q12HR #14 cap 06/13/19 [Macrobid] Tamsulosin HCl [Flomax] 0.4 mg PO DAILY #7 cap 06/13/19 Sulfamethox-Tmp 800-160Mg [Bactrim 1 each PO Q12HR #20 tab 06/18/19 Ds] Doxycycline [Vibramycin] 100 mg PO BID #14 cap 08/26/19 Tamsulosin HCl [Flomax] 0.4 mg PO DAILY #7 cap 08/26/19 guaiFENesin-DM 600/30MG [Mucinex 1 each PO Q12HR #10 tab.er.12h 08/26/19 Dm] predniSONE 50 mg PO DAILY #5 tablet 08/26/19 Allergies Allergy/AdvReac Type Severity Reaction Status Date / Time adhesive Allergy Rash/Hives Verified 09/09/19 22:22 amoxicillin Allergy Anaphylaxis Verified 09/09/19 22:22 azithromycin [From Zithromax] Allergy Anaphylaxis Verified 09/09/19 22:22 cephalexin monohydrate Allergy Anaphylaxis Verified 09/09/19 22:22 [From Keflex] ciprofloxacin Allergy Anaphylaxis Verified 09/09/19 22:22 clindamycin Allergy Anaphylaxis Verified 09/09/19 22:22 Iodinated Contrast Media Allergy Swelling Verified 09/09/19 22:22 [Iodinated Contrast- Oral and IV Dye] levofloxacin [From Levaquin] Allergy Rash/Hives Verified 09/09/19 22:22 naproxen Allergy Anaphylaxis Verified 09/09/19 22:22 NSAIDS (Non-Steroidal Allergy Rash/Hives Verified 09/09/19 22:22 Anti-Inflamma shellfish derived Allergy Anaphylaxis Verified 09/09/19 22:22 Sulfa (Sulfonamide Allergy Anaphylaxis Verified 09/09/19 22:22 Antibiotics) sulfamethoxazole Allergy Anaphylaxis Verified 09/09/19 22:22 [From Bactrim] tramadol Allergy Unknown Verified 09/09/19 22:22 trimethoprim [From Bactrim] Allergy Anaphylaxis Verified 09/09/19 22:22 Review of Systems ROS Statement: Those systems with pertinent positive or pertinent negative responses have been documented in the HPI. ROS Other: All systems not noted in ROS Statement are negative. 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 IBS, cellulitis of the chin, History of Any Multi-Drug Resistant Organisms: MRSA Date of last positivie culture/infection: 07/2016 MDRO Source:: chin Past Surgical History: Section, Cholecystectomy, Hysterectomy, Tubal Ligation Additional Past Surgical History / Comment(s): oral surgery . Pancreas biopsy May 2015. Past Anesthesia/Blood Transfusion Reactions: No Reported Reaction Past Psychological History: ADD/ADHD, Anxiety, Bipolar, Depression Smoking Status: Current every day smoker Past Alcohol Use History: None Reported Past Drug Use History: Marijuana - Past Family History Father Family Medical History: No Reported History Additional Family Medical History / Comment(s): ADOPTED General Exam Limitations: no limitations Course Vital Signs 09/09/19 09/09/19 09/10/19 22:23 23:00 00:00 Temperature 99.0 F 98.9 F Pulse Rate 111 H 89 Respiratory 18 16 Rate Blood Pressure 197/107 179/89 O2 Sat by Pulse 96 93 L Oximetry 09/10/19 01:25 Temperature Pulse Rate 96 Respiratory 18 Rate Blood Pressure 180/78 O2 Sat by Pulse 96 Oximetry EKG Findings - EKG Comments: EKG Findings:: EKG demonstrates normal sinus rhythm with a ventricular rate 93. FL interval 136. QRS knee. QTC of 469. No acute ST segment elevations. Some mild ST depression in lead 3. Medical Decision Making - Medical Decision Making Upon arrival the patient is placed into room 1. A thorough history and physical exam was performed. 12-lead EKG was performed and a peripheral IV was establi shed. Patient was given a liter pulse ox normal saline. She is requesting something for the pain in her low back. She was given a dose of morphine. I also provided the patient with some Zofran. I respiratory symptoms were conducted and the patient went for a CT of her brain and C-spine as well as of her lumbar spine. Laboratory studies are unremarkable. Urinalysis is positive for opiates, oxycodone, antidepressants, benzodiazepines and marijuana. Alcohol is negative. The patient does have trace blood in her urine which she states is secondary to recently passing kidney stones. CT of the brain demonstrates no acute fractures or intracranial process. CT of the lumbar spine demonstrates no fractures. The patient is reevaluated and has not had a seizure while within the emergency department. I discussed diagnosis, differential treatment options. She is requesting a second dose of pain medications which she is given. She is also requesting Benadryl. The patient reports that she has an appointment for her new neurologist this upcoming week. I informed her that she needs to be evaluated to see whether she needs to be placed back on antiseizure medications. The patient understood this. She feels comfortable going home at this time. I did offer her transfer to an outside facility with neurology coverage however she refused. The patient did make comments to triage that she was feeling depressed. The patient denies suicidal ideations or homicidal ideations at this time. States that she has previously attempted to hurt herself however she does not feel that she is at this point. is at bedside and states that he will stay with her and feels comfortable with her going home. Patient admits that she will return if she begins having thoughts of suicide. The patient's was discharged home in stable condition - Lab Data Result diagrams: 09/09/19 23:50 09/09/19 23:50 Lab Results 09/09/19 09/09/19 09/09/19 Range/Units 23:50 23:50 23:50 WBC 11.5 H (3.8-10.6) k/uL RBC 5.22 (3.80-5.40) m/uL Hgb 13.9 (11.4-16.0) gm/dL Hct 43.9 (34.0-46.0) % MCV 84.2 (80.0-100.0) fL MCH 26.6 (25.0-35.0) pg MCHC 31.6 (31.0-37.0) g/dL RDW 13.2 (11.5-15.5) % Plt Count 290 (150-450) k/uL Neutrophils % 61 % Lymphocytes % 29 % Monocytes % 6 % Eosinophils % 3 % Basophils % 0 % Neutrophils # 6.9 (1.3-7.7) k/uL Lymphocytes # 3.3 (1.0-4.8) k/uL Monocytes # 0.7 (0-1.0) k/uL Eosinophils # 0.3 (0-0.7) k/uL Basophils # 0.0 (0-0.2) k/uL Sodium 137 (137-145) mmol/L Potassium 3.9 (3.5-5.1) mmol/L Chloride 101 (98-107) mmol/L Carbon Dioxide 29 (22-30) mmol/L Anion Gap 7 mmol/L BUN 20 H (7-17) mg/dL Creatinine 0.61 (0.52-1.04) mg/dL Est GFR (CKD-EPI)AfAm >90 (>60 ml/min/1.73 sqM) Est GFR (CKD-EPI)NonAf >90 (>60 ml/min/1.73 sqM) Glucose 126 H (74-99) mg/dL Plasma Lactic Acid Srinivas (0.7-2.0) mmol/L Calcium 9.4 (8.4-10.2) mg/dL Total Bilirubin 0.3 (0.2-1.3) mg/dL AST 27 (14-36) U/L ALT 23 (4-34) U/L Alkaline Phosphatase 88 (38-126) U/L Total Protein 7.0 (6.3-8.2) g/dL Albumin 4.2 (3.5-5.0) g/dL Lipase 156 (23-300) U/L Urine Color Yellow Urine Appearance Clear (Clear) Urine pH 6.0 (5.0-8.0) Ur Specific [place] 1.032 (1.001-1.035) Urine Protein 1+ H (Negative) Urine Glucose (UA) Negative (Negative) Urine Ketones Trace H (Negative) Urine Blood Moderate H (Negative) Urine Nitrite Negative (Negative) Urine Bilirubin Negative (Negative) Urine Urobilinogen <2.0 (<2.0) mg/dL Ur Leukocyte Esterase Negative (Negative) Urine RBC 19 H (0-5) /hpf Urine WBC 3 (0-5) /hpf Ur Squamous Epith Cells 3 (0-4) /hpf Urine Bacteria Rare H (None) /hpf Urine Mucus Few H (None) /hpf Urine Opiates Screen Detected H (NotDetected) Ur Oxycodone Screen Detected H (NotDetected) Urine Methadone Screen Not Detected (NotDetected) Ur Propoxyphene Screen Not Detected (NotDetected) Ur Barbiturates Screen Not Detected (NotDetected) U Tricyclic Antidepress Detected H (NotDetected) Ur Phencyclidine Scrn Not Detected (NotDetected) Ur Amphetamines Screen Not Detected (NotDetected) U Methamphetamines Scrn Not Detected (NotDetected) U Benzodiazepines Scrn Detected H (NotDetected) Urine Cocaine Screen Not Detected (NotDetected) U Marijuana (THC) Screen Detected H (NotDetected) Serum Alcohol <10 mg/dL 09/09/19 Range/Units 23:50 WBC (3.8-10.6) k/uL RBC (3.80-5.40) m/uL Hgb (11.4-16.0) gm/dL Hct (34.0-46.0) % MCV (80.0-100.0) fL MCH (25.0-35.0) pg MCHC (31.0-37.0) g/dL RDW (11.5-15.5) % Plt Count (150-450) k/uL Neutrophils % % Lymphocytes % % Monocytes % % Eosinophils % % Basophils % % Neutrophils # (1.3-7.7) k/uL Lymphocytes # (1.0-4.8) k/uL Monocytes # (0-1.0) k/uL Eosinophils # (0-0.7) k/uL Basophils # (0-0.2) k/uL Sodium (137-145) mmol/L Potassium (3.5-5.1) mmol/L Chloride (98-107) mmol/L Carbon Dioxide (22-30) mmol/L Anion Gap mmol/L BUN (7-17) mg/dL Creatinine (0.52-1.04) mg/dL Est GFR (CKD-EPI)AfAm (>60 ml/min/1.73 sqM) Est GFR (CKD-EPI)NonAf (>60 ml/min/1.73 sqM) Glucose (74-99) mg/dL Plasma Lactic Acid Srinivas 1.4 (0.7-2.0) mmol/L Calcium (8.4-10.2) mg/dL Total Bilirubin (0.2-1.3) mg/dL AST (14-36) U/L ALT (4-34) U/L Alkaline Phosphatase (38-126) U/L Total Protein (6.3-8.2) g/dL Albumin (3.5-5.0) g/dL Lipase (23-300) U/L Urine Color Urine Appearance (Clear) Urine pH (5.0-8.0) Ur Specific [place] (1.001-1.035) Urine Protein (Negative) Urine Glucose (UA) (Negative) Urine Ketones (Negative) Urine Blood (Negative) Urine Nitrite (Negative) Urine Bilirubin (Negative) Urine Urobilinogen (<2.0) mg/dL Ur Leukocyte Esterase (Negative) Urine RBC (0-5) /hpf Urine WBC (0-5) /hpf Ur Squamous Epith Cells (0-4) /hpf Urine Bacteria (None) /hpf Urine Mucus (None) /hpf Urine Opiates Screen (NotDetected) Ur Oxycodone Screen (NotDetected) Urine Methadone Screen (NotDetected) Ur Propoxyphene Screen (NotDetected) Ur Barbiturates Screen (NotDetected) U Tricyclic Antidepress (NotDetected) Ur Phencyclidine Scrn (NotDetected) Ur Amphetamines Screen (NotDetected) U Methamphetamines Scrn (NotDetected) U Benzodiazepines Scrn (NotDetected) Urine Cocaine Screen (NotDetected) U Marijuana (THC) Screen (NotDetected) Serum Alcohol mg/dL Disposition Clinical Impression: Seizure disorder, Breakthrough seizure Disposition: HOME SELF-CARE Condition: Stable Instructions (If sedation given, give patient instructions): Recurrent Seizures in Adults (ED) Additional Instructions: Please follow-up with your neurologist. You will need to be placed back on medications for seizures. Return to the emergency department for any new worsening symptoms Is patient prescribed a controlled substance at d/c from ED?: No Referrals: Kaleb Huston DO [Primary Care Provider] - 1-2 days Felix Wick MD [STAFF PHYSICIAN] - 1-2 days Time of Disposition: 01:15
[2019-09-10] MEDS ORDERED: diphenhydrAMINE 50 MG CAP PO STA (01:04)
[2019-09-10] MEDS ORDERED: MORPHINE SULFATE 4 MG/ML SYRINGE IVP STA (01:12)
[2019-09-10 01:27] VITALS: BP 180/78; PULSE 96; RESP 18
== END 2019-09-10 01:27 | disposition home or self-care (01) ==
LOC: EC 22:19
DX: G40.909 Epilepsy, unspecified, not intractable, without status epilepticus (principal); I50.9 Heart failure, unspecified; M79.7 Fibromyalgia; F31.9 Bipolar disorder, unspecified; F41.9 Anxiety disorder, unspecified; M06.9 Rheumatoid arthritis, unspecified; G89.29 Other chronic pain; J44.9 Chronic obstructive pulmonary disease, unspecified; F17.200 Nicotine dependence, unspecified, uncomplicated; Z88.0 Allergy status to penicillin; Z88.1 Allergy status to other antibiotic agents; Z88.2 Allergy status to sulfonamides; Z88.6 Allergy status to analgesic agent; Z88.8 Allergy status to other drugs, medicaments and biological substances; Z91.013 Allergy to seafood; Z91.041 Radiographic dye allergy status; Z91.048 Other nonmedicinal substance allergy status; Z79.51 Long term (current) use of inhaled steroids; Z79.891 Long term (current) use of opiate analgesic; Z79.899 Other long term (current) drug therapy; Z86.14 Personal history of Methicillin resistant Staphylococcus aureus infection; Z86.69 Personal history of other diseases of the nervous system and sense organs; Z86.73 Personal history of transient ischemic attack (TIA), and cerebral infarction without residual deficits
CPT/HCPCS: 82075; 36415; 93005; 80053; 83605; 83690; 85025; 81001; 80306; 72125; 72131; 70450; 99285; 96374; 96375; 96376; 96361; G0480; J2270 ×2; J2405; 80320

== ENCOUNTER 2019-10-24 14:38 | Emergency (ER) | payer MEDICARE ==
--- NOTE | 2019-10-24 16:07 | XR ---
EXAMINATION TYPE: XR chest 1V DATE OF EXAM: 10/24/2019 COMPARISON: 08/26/2019 INDICATION: Shortness of breath fever nausea/cough TECHNIQUE: Single frontal view of the chest is obtained. FINDINGS: The heart size is normal. The pulmonary vasculature is normal. The lungs are clear. IMPRESSION: 1. No acute pulmonary process.
--- NOTE | 2019-10-24 16:16 | ED ---
General Adult HPI - General Chief complaint: Shortness of Breath Stated complaint: SOB Time Seen by Provider: 10/24/19 14:59 Source: patient, RN notes reviewed, old records reviewed Mode of arrival: wheelchair Limitations: no limitations - History of Present Illness Initial comments: 44-year-old female presenting for evaluation of cough and dyspnea. Patient is on oxygen dependent COPD patient. She is currently on 2 L. Over the past 2 days she's had a productive cough she's had subjective fevers. She states that she has increasing dyspnea with ambulation. She states her was tested for coronavirus and this was negative. She's had no other known contacts with the virus. She denies lower extremity edema. Denies central chest pain. - Related Data Home Medications Medication Instructions Recorded Confirmed Potassium Chloride [Klor-Con 8] 8 meq PO DAILY 01/06/14 09/09/19 Ipratropium/Albuterol Sulfate 2 puff INHALATION RT-BID 07/26/15 09/09/19 [Combivent Respimat Inhaler] Spironolactone [Aldactone] 25 mg PO DAILY 02/05/17 09/09/19 Albuterol Inhaler (Bulk) [Ventolin 2 puff INHALATION RT-Q4H PRN 12/10/18 09/09/19 Hfa Inhaler (Bulk)] oxyCODONE-APAP 10-325MG [Percocet 1 tab PO TID 12/31/18 09/09/19 10-325 mg] QUEtiapine [SEROquel] 50 mg PO HS 02/25/19 09/09/19 diphenhydrAMINE [Benadryl] 50 mg PO TID 02/25/19 09/09/19 Citalopram Hydrobromide [CeleXA] 20 mg PO DAILY 05/17/19 09/09/19 Fluticasone Nasal [place] [Flonase 1 spray EA NOSTRIL HS 05/17/19 09/09/19 Nasal [place]] ALPRAZolam [Xanax] 0.5 mg PO TID PRN 06/02/19 09/09/19 Ergocalciferol [Vitamin D2 50,000 unit PO WE 06/02/19 09/09/19 (DRISDOL)] Milnacipran HCl [Savella] 25 mg PO HS 06/02/19 09/09/19 Citalopram Hydrobromide [CeleXA] 40 mg PO DAILY 06/12/19 09/09/19 Previous Rx's Medication Instructions Recorded Zolpidem [Ambien] 10 mg PO HS #3 tab 12/13/18 Nitrofurantoin Monohyd/M-Cryst 100 mg PO Q12HR #14 cap 06/13/19 [Macrobid] Tamsulosin HCl [Flomax] 0.4 mg PO DAILY #7 cap 06/13/19 Sulfamethox-Tmp 800-160Mg [Bactrim 1 each PO Q12HR #20 tab 06/18/19 Ds] Doxycycline [Vibramycin] 100 mg PO BID #14 cap 08/26/19 Tamsulosin HCl [Flomax] 0.4 mg PO DAILY #7 cap 08/26/19 guaiFENesin-DM 600/30MG [Mucinex 1 each PO Q12HR #10 tab.er.12h 08/26/19 Dm] predniSONE 50 mg PO DAILY #5 tablet 08/26/19 Acetaminophen with Codeine 1 tab PO Q6H PRN 3 Days #12 tab 10/24/19 [Tylenol w/codeine #3] Doxycycline [Vibramycin] 100 mg PO BID 3 Days #14 capsule 10/24/19 predniSONE 50 mg PO DAILY #5 tab 10/24/19 Allergies Allergy/AdvReac Type Severity Reaction Status Date / Time adhesive Allergy Rash/Hives Verified 10/24/19 14:39 amoxicillin Allergy Anaphylaxis Verified 10/24/19 14:39 azithromycin [From Zithromax] Allergy Anaphylaxis Verified 10/24/19 14:39 cephalexin monohydrate Allergy Anaphylaxis Verified 10/24/19 14:39 [From Keflex] ciprofloxacin Allergy Anaphylaxis Verified 10/24/19 14:39 clindamycin Allergy Anaphylaxis Verified 10/24/19 14:39 Iodinated Contrast Media Allergy Swelling Verified 10/24/19 14:39 [Iodinated Contrast- Oral and IV Dye] levofloxacin [From Levaquin] Allergy Rash/Hives Verified 10/24/19 14:39 naproxen Allergy Anaphylaxis Verified 10/24/19 14:39 NSAIDS (Non-Steroidal Allergy Rash/Hives Verified 10/24/19 14:39 Anti-Inflamma shellfish derived Allergy Anaphylaxis Verified 10/24/19 14:39 Sulfa (Sulfonamide Allergy Anaphylaxis Verified 10/24/19 14:39 Antibiotics) sulfamethoxazole Allergy Anaphylaxis Verified 10/24/19 14:39 [From Bactrim] tramadol Allergy Unknown Verified 10/24/19 14:39 trimethoprim [From Bactrim] Allergy Anaphylaxis Verified 10/24/19 14:39 Review of Systems ROS Statement: Those systems with pertinent positive or pertinent negative responses have been documented in the HPI. ROS Other: All systems not noted in ROS Statement are negative. 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 IBS, cellulitis of the chin, History of Any Multi-Drug Resistant Organisms: MRSA Date of last positivie culture/infection: 07/2016 MDRO Source:: chin Past Surgical History: Section, Cholecystectomy, Hysterectomy, Tubal Ligation Additional Past Surgical History / Comment(s): oral surgery . Pancreas biopsy May 2015. Past Anesthesia/Blood Transfusion Reactions: No Reported Reaction Past Psychological History: ADD/ADHD, Anxiety, Bipolar, Depression Smoking Status: Current every day smoker Past Alcohol Use History: None Reported Past Drug Use History: Marijuana - Past Family History Father Family Medical History: No Reported History Additional Family Medical History / Comment(s): ADOPTED General Exam Limitations: no limitations General appearance: alert, in no apparent distress Head exam: Present: atraumatic, normocephalic Eye exam: Present: normal appearance, PERRL, EOMI ENT exam: Present: normal exam Neck exam: Present: normal inspection. Absent: tenderness, meningismus Respiratory exam: Present: decreased breath sounds. Absent: respiratory distress Cardiovascular Exam: Present: regular rate, normal rhythm GI/Abdominal exam: Present: soft. Absent: distended, tenderness Extremities exam: Present: normal inspection, normal capillary refill. Absent: pedal edema, calf tenderness Neurological exam: Present: alert, oriented X3, CN II-XII intact. Absent: motor sensory deficit Psychiatric exam: Present: normal affect, normal mood Skin exam: Present: warm, dry, intact. Absent: cyanosis, diaphoretic Course Vital Signs 10/24/19 14:39 Temperature 98.1 F Pulse Rate 87 Respiratory 18 Rate Blood Pressure 170/86 O2 Sat by Pulse 94 L Oximetry Medical Decision Making - Medical Decision Making 44-year-old female with oxygen-dependent COPD presenting with cough and dyspnea. She is currently on home oxygen at 2 L. Chest x-ray performed which is negative for focal pneumonia, no concerning features for rhinovirus. I did offer this patient admission for IV steroids with minimal risk of coming and closer contact with the virus. I did discuss the possibility of home and very close monitoring of her respiratory status. Patient wishes to be discharged and will monitor her symptoms at home. I will prescribe antibiotics, steroids for this patient. Her is at home and is able to help in the management process they will return with any worsening or change in features. Disposition Clinical Impression: Acute exacerbation of chronic obstructive airways disease Disposition: HOME SELF-CARE Condition: Fair Instructions (If sedation given, give patient instructions): COPD (Chronic Obstructive Pulmonary Disease) (ED) Additional Instructions: Please closely monitor symptoms and return with any worsening or changing symptoms. Prescriptions: predniSONE 50 mg PO DAILY #5 tab Acetaminophen with Codeine [Tylenol w/codeine #3] 1 tab PO Q6H PRN 3 Days #12 tab PRN Reason: Severe Pain Doxycycline [Vibramycin] 100 mg PO BID 3 Days #14 capsule Is patient prescribed a controlled substance at d/c from ED?: No Referrals: Kaleb Huston DO [Primary Care Provider] - 1-2 days Time of Disposition: 16:16
[2019-10-24 16:33] VITALS: BP 164/100; PULSE 85; RESP 22; TEMP 99.3
== END 2019-10-24 16:33 | disposition home or self-care (01) ==
LOC: EC 14:38
DX: J44.1 Chronic obstructive pulmonary disease with (acute) exacerbation (principal); I50.9 Heart failure, unspecified; F31.9 Bipolar disorder, unspecified; F41.9 Anxiety disorder, unspecified; F90.9 Attention-deficit hyperactivity disorder, unspecified type; F17.200 Nicotine dependence, unspecified, uncomplicated; Z79.51 Long term (current) use of inhaled steroids; Z79.899 Other long term (current) drug therapy; Z91.048 Other nonmedicinal substance allergy status; Z88.0 Allergy status to penicillin; Z88.1 Allergy status to other antibiotic agents; Z91.041 Radiographic dye allergy status; Z88.6 Allergy status to analgesic agent; Z88.2 Allergy status to sulfonamides; Z91.013 Allergy to seafood; Z88.5 Allergy status to narcotic agent; Z86.73 Personal history of transient ischemic attack (TIA), and cerebral infarction without residual deficits; Z99.81 Dependence on supplemental oxygen
CPT/HCPCS: 71045; 99285

== ENCOUNTER 2019-12-21 15:58 | Emergency (ER) | payer MEDICARE ==
[2019-12-21] MEDS ORDERED: IPRATROPIUM-ALBUTEROL 3 ML NEB INHALATION STA (16:25)
[2019-12-21] MEDS ORDERED: MORPHINE SULFATE 4 MG/ML SYRINGE IV STA ×2 (16:27→18:24)
--- NOTE | 2019-12-21 16:35 | ED ---
General Adult HPI - General Chief complaint: Weakness Stated complaint: sob Time Seen by Provider: 12/21/19 16:09 Source: patient, RN notes reviewed, old records reviewed Mode of arrival: ambulatory Limitations: no limitations - History of Present Illness Initial comments: 44-year-old female patient with the chief complaint of denies weakness of last 3 days, some mild thoracic and parathoracic back discomfort. Patient reports that she has been very active the grandchildren playing with them picking them up she is doing lots of tightness around her parathoracic region. Patient also reports that she is having some tightness of her anterior chest wall which is also reproducible upon palpation with movement. She also reports she's had some mild diarrhea. She denies any other complaints at this time. He denies any shortness of breath states that her breathing is better than normal. Systemic: Pt denies fatigue, fever/chills, rash. Pt denies weakness, night sweats, weight loss. Neuro: Pt denies headache, visual disturbances, syncope or pre-syncope. HEENT: Pt denies ocular discharge or irritation, otalgia, rhinorrhea, pharyngitis or notable lymphadenopathy. Cardiopulmonary: Pt denies SOB, heart palpitations, dyspnea on exertion. Abdominal/GI: Pt denies abdominal pain, n/v. : Pt denies dysuria, burning w/ urination, frequency/urgency. Denies new onset urinary or bowel incontinence. MSK: Pt denies myalgia, loss of strength or function in extremities. Neuro: Pt denies new onset weakness, paresthesias. - Related Data Home Medications Medication Instructions Recorded Confirmed Potassium Chloride [Klor-Con 8] 8 meq PO DAILY 01/06/14 09/09/19 Ipratropium/Albuterol Sulfate 2 puff INHALATION RT-BID 07/26/15 09/09/19 [Combivent Respimat Inhaler] Spironolactone [Aldactone] 25 mg PO DAILY 02/05/17 09/09/19 Albuterol Inhaler (Mhu) [Ventolin 2 puff INHALATION RT-Q4H PRN 12/10/18 09/09/19 Hfa Inhaler (Mhu)] oxyCODONE-APAP 10-325MG [Percocet 1 tab PO TID 12/31/18 09/09/19 10-325 mg] QUEtiapine [SEROquel] 50 mg PO HS 02/25/19 09/09/19 diphenhydrAMINE [Benadryl] 50 mg PO TID 02/25/19 09/09/19 Citalopram Hydrobromide [CeleXA] 20 mg PO DAILY 05/17/19 09/09/19 Fluticasone Nasal Brick [Flonase 1 spray EA NOSTRIL HS 05/17/19 09/09/19 Nasal Brick] ALPRAZolam [Xanax] 0.5 mg PO TID PRN 06/02/19 09/09/19 Ergocalciferol [Vitamin D2 50,000 unit PO WE 06/02/19 09/09/19 (DRISDOL)] Milnacipran HCl [Savella] 25 mg PO HS 06/02/19 09/09/19 Citalopram Hydrobromide [CeleXA] 40 mg PO DAILY 06/12/19 09/09/19 Previous Rx's Medication Instructions Recorded Zolpidem [Ambien] 10 mg PO HS #3 tab 12/13/18 Nitrofurantoin Monohyd/M-Cryst 100 mg PO Q12HR #14 cap 06/13/19 [Macrobid] Tamsulosin HCl [Flomax] 0.4 mg PO DAILY #7 cap 06/13/19 Sulfamethox-Tmp 800-160Mg [Bactrim 1 each PO Q12HR #20 tab 06/18/19 Ds] Doxycycline [Vibramycin] 100 mg PO BID #14 cap 08/26/19 Tamsulosin HCl [Flomax] 0.4 mg PO DAILY #7 cap 08/26/19 guaiFENesin-DM 600/30MG [Mucinex 1 each PO Q12HR #10 tab.er.12h 08/26/19 Dm] predniSONE 50 mg PO DAILY #5 tablet 08/26/19 Acetaminophen with Codeine 1 tab PO Q6H PRN 3 Days #12 tab 10/24/19 [Tylenol w/codeine #3] Doxycycline [Vibramycin] 100 mg PO BID 3 Days #14 capsule 10/24/19 predniSONE 50 mg PO DAILY #5 tab 10/24/19 Allergies Allergy/AdvReac Type Severity Reaction Status Date / Time adhesive Allergy Rash/Hives Verified 12/21/19 16:06 amoxicillin Allergy Anaphylaxis Verified 12/21/19 16:06 azithromycin [From Zithromax] Allergy Anaphylaxis Verified 12/21/19 16:06 cephalexin monohydrate Allergy Anaphylaxis Verified 12/21/19 16:06 [From Keflex] ciprofloxacin Allergy Anaphylaxis Verified 12/21/19 16:06 clindamycin Allergy Anaphylaxis Verified 12/21/19 16:06 Iodinated Contrast Media Allergy Swelling Verified 12/21/19 16:06 [Iodinated Contrast- Oral and IV Dye] levofloxacin [From Levaquin] Allergy Rash/Hives Verified 12/21/19 16:06 naproxen Allergy Anaphylaxis Verified 12/21/19 16:06 NSAIDS (Non-Steroidal Allergy Rash/Hives Verified 12/21/19 16:06 Anti-Inflamma shellfish derived Allergy Anaphylaxis Verified 12/21/19 16:06 Sulfa (Sulfonamide Allergy Anaphylaxis Verified 12/21/19 16:06 Antibiotics) sulfamethoxazole Allergy Anaphylaxis Verified 12/21/19 16:06 [From Bactrim] tramadol Allergy Unknown Verified 12/21/19 16:06 trimethoprim [From Bactrim] Allergy Anaphylaxis Verified 12/21/19 16:06 Review of Systems ROS Statement: Those systems with pertinent positive or pertinent negative responses have been documented in the HPI. ROS Other: All systems not noted in ROS Statement are negative. 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 IBS, cellulitis of the chin, History of Any Multi-Drug Resistant Organisms: MRSA Date of last positivie culture/infection: 07/2016 MDRO Source:: chin Past Surgical History: Section, Cholecystectomy, Hysterectomy, Tubal Ligation Additional Past Surgical History / Comment(s): oral surgery . Pancreas biopsy May 2015. Past Anesthesia/Blood Transfusion Reactions: No Reported Reaction Past Psychological History: ADD/ADHD, Anxiety, Bipolar, Depression Smoking Status: Light tobacco smoker Past Alcohol Use History: None Reported Past Drug Use History: Marijuana - Past Family History Father Family Medical History: No Reported History Additional Family Medical History / Comment(s): ADOPTED General Exam - General Exam Comments Initial Comments: Constitutional: NAD, AOX3, Pt has pleasant affect. HEENT: NC/AT, trachea midline, neck supple, no lymphadenopathy. Posterior pharynx non erythematous, without exudates. External ears appear normal, without discharge. Mucous membranes moist. Eyes PERRLA, EOM intact. There is no scleral icterus. No pallor noted. Cardiopulmonary: RRR, no murmurs, rubs or gallops, no JVD noted. Mild expirat ory wheeze noted, resolved after breathing treatment. No peripheral edema. Abdominal exam: Abdomen soft and non-distended. Abdomen non-tender to palpation in all 4 quadrants. Bowel sounds active in LLQ. No hepatosplenomegaly. No ecchymosis Neuro: CN II-XII grossly intact. No nuchal rigidity. No raccon eyes, no cuello sign, no hemotympanum. No cervical spinal tenderness. MSK: Parathoracic region mildly tender to palpation. Reproducible with range of motion. No skin changes. Anterior chest wall mildly tender to palpation. No skin changes. 5 strength psoas quadriceps muscles. Heel to toe walking intact. No posterior calf tenderness bilaterally, homans sign negative bilaterally. Posterior tibialis and radial pulse +2 bilaterally. Sensation intact in upper and lower extremities. Full active ROM in upper and lower extremities, 5/5 stregnth. Limitations: no limitations Course Vital Signs 12/21/19 12/21/19 12/21/19 16:03 16:45 16:57 Temperature 98.7 F Pulse Rate 92 81 Respiratory 18 20 20 Rate Blood Pressure 189/72 149/104 O2 Sat by Pulse 98 95 Oximetry 12/21/19 12/21/19 12/21/19 17:06 17:18 19:27 Temperature 98.2 F Pulse Rate 82 81 78 Respiratory 18 18 18 Rate Blood Pressure 145/87 O2 Sat by Pulse 95 Oximetry Medical Decision Making - Medical Decision Making 44-year-old female patient brought into the chief complaint parathoracic back pain, anterior chest wall pain. Both are reproducible upon palpation. With reproducible with range of motion. Patient reports she has been very active with her grandchildren picking him up and playing with them. She believes that she strained his muscles. Patient also reports some diarrhea. Abdomen is soft and nontender. Left investigations are non-impressive. EKG is nonischemic. Troponin negative. Patient is feeling much improved. Patient discharged to follow up with primary care provider and return to ER if condition worsens. Patient reports that she had some mild nausea with her diarrhea and requests zofran for home. Case discussed with Dr. Olivares. - Lab Data Result diagrams: 12/21/19 16:39 12/21/19 16:39 Lab Results 12/21/19 12/21/19 12/21/19 Range/Units 16:39 16:39 16:39 WBC 7.7 (3.8-10.6) k/uL RBC 4.98 (3.80-5.40) m/uL Hgb 13.9 (11.4-16.0) gm/dL Hct 43.1 (34.0-46.0) % MCV 86.5 (80.0-100.0) fL MCH 27.9 (25.0-35.0) pg MCHC 32.2 (31.0-37.0) g/dL RDW 13.2 (11.5-15.5) % Plt Count 323 (150-450) k/uL Neutrophils % 57 % Lymphocytes % 33 % Monocytes % 6 % Eosinophils % 3 % Basophils % 0 % Neutrophils # 4.4 (1.3-7.7) k/uL Lymphocytes # 2.6 (1.0-4.8) k/uL Monocytes # 0.4 (0-1.0) k/uL Eosinophils # 0.2 (0-0.7) k/uL Basophils # 0.0 (0-0.2) k/uL Sodium 138 (137-145) mmol/L Potassium 3.9 (3.5-5.1) mmol/L Chloride 100 (98-107) mmol/L Carbon Dioxide 30 (22-30) mmol/L Anion Gap 8 mmol/L BUN 10 (7-17) mg/dL Creatinine 0.56 (0.52-1.04) mg/dL Est GFR (CKD-EPI)AfAm >90 (>60 ml/min/1.73 sqM) Est GFR (CKD-EPI)NonAf >90 (>60 ml/min/1.73 sqM) Glucose 127 H (74-99) mg/dL Plasma Lactic Acid Srinivas 1.0 (0.7-2.0) mmol/L Calcium 8.9 (8.4-10.2) mg/dL Total Bilirubin 0.4 (0.2-1.3) mg/dL AST 20 (14-36) U/L ALT 13 (4-34) U/L Alkaline Phosphatase 89 (38-126) U/L Troponin I (0.000-0.034) ng/mL Total Protein 6.7 (6.3-8.2) g/dL Albumin 3.8 (3.5-5.0) g/dL Lipase 22 L (23-300) U/L Urine Color Urine Appearance (Clear) Urine pH (5.0-8.0) Ur Specific [place] (1.001-1.035) Urine Protein (Negative) Urine Glucose (UA) (Negative) Urine Ketones (Negative) Urine Blood (Negative) Urine Nitrite (Negative) Urine Bilirubin (Negative) Urine Urobilinogen (<2.0) mg/dL Ur Leukocyte Esterase (Negative) Urine RBC (0-5) /hpf Urine WBC (0-5) /hpf Ur Squamous Epith Cells (0-4) /hpf Urine Mucus (None) /hpf 12/21/19 12/21/19 Range/Units 16:39 16:53 WBC (3.8-10.6) k/uL RBC (3.80-5.40) m/uL Hgb (11.4-16.0) gm/dL Hct (34.0-46.0) % MCV (80.0-100.0) fL MCH (25.0-35.0) pg MCHC (31.0-37.0) g/dL RDW (11.5-15.5) % Plt Count (150-450) k/uL Neutrophils % % Lymphocytes % % Monocytes % % Eosinophils % % Basophils % % Neutrophils # (1.3-7.7) k/uL Lymphocytes # (1.0-4.8) k/uL Monocytes # (0-1.0) k/uL Eosinophils # (0-0.7) k/uL Basophils # (0-0.2) k/uL Sodium (137-145) mmol/L Potassium (3.5-5.1) mmol/L Chloride (98-107) mmol/L Carbon Dioxide (22-30) mmol/L Anion Gap mmol/L BUN (7-17) mg/dL Creatinine (0.52-1.04) mg/dL Est GFR (CKD-EPI)AfAm (>60 ml/min/1.73 sqM) Est GFR (CKD-EPI)NonAf (>60 ml/min/1.73 sqM) Glucose (74-99) mg/dL Plasma Lactic Acid Srinivas (0.7-2.0) mmol/L Calcium (8.4-10.2) mg/dL Total Bilirubin (0.2-1.3) mg/dL AST (14-36) U/L ALT (4-34) U/L Alkaline Phosphatase (38-126) U/L Troponin I <0.012 (0.000-0.034) ng/mL Total Protein (6.3-8.2) g/dL Albumin (3.5-5.0) g/dL Lipase (23-300) U/L Urine Color Yellow Urine Appearance Cloudy H (Clear) Urine pH 6.5 (5.0-8.0) Ur Specific [place] 1.025 (1.001-1.035) Urine Protein 1+ H (Negative) Urine Glucose (UA) Negative (Negative) Urine Ketones 1+ H (Negative) Urine Blood Small H (Negative) Urine Nitrite Negative (Negative) Urine Bilirubin 1+ H (Negative) Urine Urobilinogen 4.0 (<2.0) mg/dL Ur Leukocyte Esterase Trace H (Negative) Urine RBC 10 H (0-5) /hpf Urine WBC 8 H (0-5) /hpf Ur Squamous Epith Cells 31 H (0-4) /hpf Urine Mucus Many H (None) /hpf - EKG Data -: EKG Interpreted by Me (and Dr. Olivares) EKG Comments: Ventricular rate 80, painful 126, QRS 82, QT/QTc 410/472. Normal sinus rhythm, normal EKG, no concern for acute ischemia. Disposition Clinical Impression: Strain of thoracic back region, Chest wall pain Disposition: HOME SELF-CARE Condition: Stable Instructions (If sedation given, give patient instructions): Chest Pain (ED), Thoracic Back Strain (ED) Additional Instructions: Follow-up with primary care provider tomorrow. Return to ER if condition wor sens in any way or if any chest pain returns. Is patient prescribed a controlled substance at d/c from ED?: No Referrals: Kaleb Huston DO [Primary Care Provider] - 1-2 days
[2019-12-21 16:53] LABS: Basophils % (A) 0 %; Eosinophils # (A) 0.2 k/uL (0-0.7); Eosinophils % (A) 3 %; HCT 43.1 % (34.0-46.0); HGB 13.9 gm/dL (11.4-16.0); Lymphocytes # (A) 2.6 k/uL (1.0-4.8); Lymphocytes % (A) 33 %; MCH 27.9 pg (25.0-35.0); MCHC 32.2 g/dL (31.0-37.0); MCV 86.5 fL (80.0-100.0); Mean Platelet Volume 6.8; Monocytes # (A) 0.4 k/uL (0-1.0); Monocytes % (A) 6 %; Neutrophils # (A) 4.4 k/uL (1.3-7.7); Neutrophils % (A) 57 %; Platelet Count 323 k/uL (150-450); RBC 4.98 m/uL (3.80-5.40); RDW 13.2 % (11.5-15.5); WBC 7.7 k/uL (3.8-10.6)
[2019-12-21] MEDS ORDERED: ASPIRIN 81 MG PO STA (17:00)
[2019-12-21 17:08] VITALS: RESP 18
[2019-12-21 17:10] LABS: ALT 13 U/L (4-34); AST 20 U/L (14-36); African American GFR (CKD) >90 (>60 ml/min/1.73 sqM); Albumin 3.8 g/dL (3.5-5.0); Alkaline Phosphatase 89 U/L (38-126); Anion Gap 8 mmol/L; Blood Urea Nitrogen 10 mg/dL (7-17); Calcium 8.9 mg/dL (8.4-10.2); Carbon Dioxide 30 mmol/L (22-30); Chloride 100 mmol/L (98-107); Glucose 127 mg/dL (74-99); Non-African American GFR(CKD) >90 (>60 ml/min/1.73 sqM); Potassium 3.9 mmol/L (3.5-5.1); Sodium 138 mmol/L (137-145); Total Bilirubin 0.4 mg/dL (0.2-1.3); Total Protein 6.7 g/dL (6.3-8.2)
--- NOTE | 2019-12-21 18:07 | XR ---
EXAMINATION TYPE: XR chest 2V DATE OF EXAM: 12/21/2019 COMPARISON: 10/24/2019 INDICATION: Chest pain TECHNIQUE: Frontal and lateral views of the chest are obtained. FINDINGS: The heart size is normal. The pulmonary vasculature is normal. The lungs are clear. IMPRESSION: 1. No acute pulmonary process.
[2019-12-21 18:37] LABS: Appearance,Urine Cloudy (Clear); Bilirubin,Urine 1+ (Negative); Blood,Urine Small (Negative); Color,Urine Yellow; Glucose,Urine (UA) Negative (Negative); Ketones,Urine 1+ (Negative); Leukocyte Esterase,Urine Trace (Negative); Mucus,Urine Many /hpf; Nitrite,Urine Negative (Negative); PH, Urine 6.5 (5.0-8.0); Protein,Urine 1+ (Negative); RBC,Urine 10 /hpf (0-5); Specific Gravity,Urine 1.025 (1.001-1.035); Squamous Epithelial Cell,Urine 31 /hpf (0-4); WBC,Urine 8 /hpf (0-5)
[2019-12-21] MEDS ORDERED: LORazepam 2 MG/ML INJ IV STA (19:02)
[2019-12-21] MEDS ORDERED: ONDANSETRON 4 MG ODT STARTER PACK 2 TAB BTL PO STA (19:50)
[2019-12-21 19:57] VITALS: BP 146/80; PULSE 79; TEMP 98.4
== END 2019-12-21 19:30 | disposition home or self-care (01) ==
LOC: EC 15:58
DX: S29.012A Strain of muscle and tendon of back wall of thorax, initial encounter (principal); R07.89 Other chest pain; F31.9 Bipolar disorder, unspecified; F41.9 Anxiety disorder, unspecified; J44.9 Chronic obstructive pulmonary disease, unspecified; M79.7 Fibromyalgia; M06.9 Rheumatoid arthritis, unspecified; F17.200 Nicotine dependence, unspecified, uncomplicated; Z88.1 Allergy status to other antibiotic agents; Z88.2 Allergy status to sulfonamides; Z88.6 Allergy status to analgesic agent; Z91.013 Allergy to seafood; Z91.041 Radiographic dye allergy status; Z91.048 Other nonmedicinal substance allergy status; Z79.51 Long term (current) use of inhaled steroids; Z79.899 Other long term (current) drug therapy; Z86.14 Personal history of Methicillin resistant Staphylococcus aureus infection; Z86.73 Personal history of transient ischemic attack (TIA), and cerebral infarction without residual deficits; Z90.710 Acquired absence of both cervix and uterus; Z90.49 Acquired absence of other specified parts of digestive tract; Z98.51 Tubal ligation status; Z87.01 Personal history of pneumonia (recurrent); X50.0XXA Overexertion from strenuous movement or load, initial encounter
CPT/HCPCS: 36415; 94640; 93005; 80053; 83605; 83690; 84484; 85025; 81001; 71046; 99285; 96374; 96375; J2060; J2270

== ENCOUNTER 2020-01-01 12:48 | Observation (INO) | payer MEDICARE ==
[2020-01-01] MEDS ORDERED: SODIUM CHLORIDE 0.9% 1,000 ML IV STA ×2 (13:12)
--- NOTE | 2020-01-01 13:21 | ED ---
General Adult HPI - General Chief complaint: Allergic Reaction Stated complaint: dizziness Time Seen by Provider: 01/01/20 12:55 Source: patient, family, RN notes reviewed, old records reviewed Mode of arrival: wheelchair Limitations: no limitations - History of Present Illness Initial comments: This Patient is a 44-year-old female presents emergency Department today for concern for adverse reaction to Bactrim. Patient has been treated for urinary tract infection and has been on Bactrim since December 25. Patient's reports that over the past 3 days she is "losing it". Patient has been reports that she has apparently been hallucinating seeing the cat and places that hasn't been also complaining of dizziness. Patient has had a low-grade temperature as well as 99.3. She denies any significant headache. She does report some lower abdominal pain and some continued urinary tract infection symptoms. Patient states that she has no chest pain or shortness of breath. She does complain of chronic back pain. - Related Data Home Medications Medication Instructions Recorded Confirmed Potassium Chloride [Klor-Con 8] 8 meq PO DAILY 01/06/14 09/09/19 Ipratropium/Albuterol Sulfate 2 puff INHALATION RT-BID 07/26/15 09/09/19 [Combivent Respimat Inhaler] Spironolactone [Aldactone] 25 mg PO DAILY 02/05/17 09/09/19 Albuterol Inhaler (Mhu) [Ventolin 2 puff INHALATION RT-Q4H PRN 12/10/18 09/09/19 Hfa Inhaler (Mhu)] oxyCODONE-APAP 10-325MG [Percocet 1 tab PO TID 12/31/18 09/09/19 10-325 mg] QUEtiapine [SEROquel] 50 mg PO HS 02/25/19 09/09/19 diphenhydrAMINE [Benadryl] 50 mg PO TID 02/25/19 09/09/19 Citalopram Hydrobromide [CeleXA] 20 mg PO DAILY 05/17/19 09/09/19 Fluticasone Nasal [place] [Flonase 1 spray EA NOSTRIL HS 05/17/19 09/09/19 Nasal [place]] ALPRAZolam [Xanax] 0.5 mg PO TID PRN 06/02/19 09/09/19 Ergocalciferol [Vitamin D2 50,000 unit PO WE 06/02/19 09/09/19 (DRISDOL)] Milnacipran HCl [Savella] 25 mg PO HS 06/02/19 09/09/19 Citalopram Hydrobromide [CeleXA] 40 mg PO DAILY 06/12/19 09/09/19 Previous Rx's Medication Instructions Recorded Zolpidem [Ambien] 10 mg PO HS #3 tab 12/13/18 Nitrofurantoin Monohyd/M-Cryst 100 mg PO Q12HR #14 cap 06/13/19 [Macrobid] Tamsulosin HCl [Flomax] 0.4 mg PO DAILY #7 cap 06/13/19 Sulfamethox-Tmp 800-160Mg [Bactrim 1 each PO Q12HR #20 tab 06/18/19 Ds] Doxycycline [Vibramycin] 100 mg PO BID #14 cap 08/26/19 Tamsulosin HCl [Flomax] 0.4 mg PO DAILY #7 cap 08/26/19 guaiFENesin-DM 600/30MG [Mucinex 1 each PO Q12HR #10 tab.er.12h 08/26/19 Dm] predniSONE 50 mg PO DAILY #5 tablet 08/26/19 Acetaminophen with Codeine 1 tab PO Q6H PRN 3 Days #12 tab 10/24/19 [Tylenol w/codeine #3] Doxycycline [Vibramycin] 100 mg PO BID 3 Days #14 capsule 10/24/19 predniSONE 50 mg PO DAILY #5 tab 10/24/19 Allergies Allergy/AdvReac Type Severity Reaction Status Date / Time adhesive Allergy Rash/Hives Verified 01/01/20 16:01 amoxicillin Allergy Anaphylaxis Verified 01/01/20 16:01 azithromycin [From Zithromax] Allergy Anaphylaxis Verified 01/01/20 16:01 cephalexin monohydrate Allergy Anaphylaxis Verified 01/01/20 16:01 [From Keflex] ciprofloxacin Allergy Anaphylaxis Verified 01/01/20 16:01 clindamycin Allergy Anaphylaxis Verified 01/01/20 16:01 Iodinated Contrast Media Allergy Swelling Verified 01/01/20 16:01 [Iodinated Contrast- Oral and IV Dye] levofloxacin [From Levaquin] Allergy Rash/Hives Verified 01/01/20 16:01 naproxen Allergy Anaphylaxis Verified 01/01/20 16:01 NSAIDS (Non-Steroidal Allergy Rash/Hives Verified 01/01/20 16:01 Anti-Inflamma shellfish derived Allergy Anaphylaxis Verified 01/01/20 16:01 Sulfa (Sulfonamide Allergy Anaphylaxis Verified 01/01/20 16:01 Antibiotics) sulfamethoxazole Allergy Anaphylaxis Verified 01/01/20 16:01 [From Bactrim] tramadol Allergy Unknown Verified 01/01/20 16:01 trimethoprim [From Bactrim] Allergy Anaphylaxis Verified 01/01/20 16:01 Review of Systems ROS Statement: Those systems with pertinent positive or pertinent negative responses have been documented in the HPI. ROS Other: All systems not noted in ROS Statement are negative. 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 IBS, cellulitis of the chin, History of Any Multi-Drug Resistant Organisms: MRSA Date of last positivie culture/infection: 07/2016 MDRO Source:: chin Past Surgical History: Section, Cholecystectomy, Hysterectomy, Tubal Ligation Additional Past Surgical History / Comment(s): oral surgery . Pancreas biopsy May 2015. Past Anesthesia/Blood Transfusion Reactions: No Reported Reaction Past Psychological History: ADD/ADHD, Anxiety, Bipolar, Depression Smoking Status: Light tobacco smoker Past Alcohol Use History: None Reported Past Drug Use History: Marijuana - Past Family History Father Family Medical History: No Reported History Additional Family Medical History / Comment(s): ADOPTED General Exam - General Exam Comments Initial Comments: 44-year-old male. Alert and oriented. No significant distress. Limitations: no limitations General appearance: alert, in no apparent distress Head exam: Present: atraumatic, normocephalic, normal inspection Eye exam: Present: normal appearance, PERRL, EOMI. Absent: scleral icterus, conjunctival injection, periorbital swelling ENT exam: Present: normal exam, mucous membranes moist Neck exam: Present: normal inspection. Absent: tenderness, meningismus, lymphadenopathy Respiratory exam: Present: normal lung sounds bilaterally. Absent: respiratory distress, wheezes, rales, rhonchi, stridor Cardiovascular Exam: Present: regular rate, normal rhythm, normal heart sounds. Absent: systolic murmur, diastolic murmur, rubs, gallop, clicks GI/Abdominal exam: Present: soft, normal bowel sounds. Absent: distended, tenderness, guarding, rebound, rigid Extremities exam: Present: normal inspection, full ROM, normal capillary refill, other (Patient has evidence of tremors.). Absent: tenderness, pedal edema, joint swelling, calf tenderness Back exam: Present: normal inspection, full ROM Neurological exam: Present: alert, oriented X3, CN II-XII intact Expanded Patient oriented to: Present: person, place, time Speech: Present: fluid speech Cranial nerves: EOM's Intact: Normal Cerebellar function: Finger to Nose: Normal Upper motor neuron: Nhan Neglect: Normal Sensory exam: Upper Extremity Light Touch: Normal, Lower Extremity Light Touch: Normal Motor strength exam: RUE: 5 (tremor bilateral upper extremity), LUE: 5, RLE: 5, LLE: 5 Eye Response: (4) open spontaneously Motor Response: (6) obeys commands Verbal Response: (5) oriented Marie Total: 15 Psychiatric exam: Present: normal affect, normal mood Skin exam: Present: warm, dry, intact, normal color. Absent: rash Course Vital Signs 01/01/20 01/01/20 01/01/20 12:49 12:52 13:52 Temperature 99.3 F Pulse Rate 88 Respiratory 18 20 20 Rate Blood Pressure 183/80 O2 Sat by Pulse 94 L Oximetry 01/01/20 01/01/20 01/01/20 14:06 14:52 15:00 Temperature Pulse Rate 85 85 Respiratory 20 20 20 Rate Blood Pressure 188/103 188/103 O2 Sat by Pulse 96 96 Oximetry Medical Decision Making - Medical Decision Making This Patient is a 44-year-old female who presents emergency Department today for concern for dizziness described as room spinning concerning for vertigo, as well as some hallucinations and changes in mental status according to her . Patient's symptoms reported this started after taking Bactrim for urinary tract infection. She has been off of Bactrim for the past day. She does have some tremors on exam. At this time Patient had no acute neurological deficit on exam aside the tremors and She did have some nystagmus with left lateral gaze. TMs appear normal. Patient had CT angiogram head and neck to rule vertebral basilar reason for vertigo and this showed a congenital abnormality at [place] but no other acute changes. Patient's EKG and blood work was otherwise unremarkable. I discussed the case with Dr. reynoso whom reviewed labs, juan francisco smith and who also examined the Patient. Recommended to do the CTA and admit with consult to neuro. She was hypertensive and last blood pressure was 217/100 she was given labetalol. - Lab Data Result diagrams: 01/01/20 13:35 01/01/20 13:35 Lab Results 01/01/20 01/01/20 01/01/20 Range/Units 13:35 13:35 13:35 WBC 10.3 (3.8-10.6) k/uL RBC 5.71 H (3.80-5.40) m/uL Hgb 15.1 (11.4-16.0) gm/dL Hct 48.1 H (34.0-46.0) % MCV 84.2 (80.0-100.0) fL MCH 26.4 (25.0-35.0) pg MCHC 31.4 (31.0-37.0) g/dL RDW 13.4 (11.5-15.5) % Plt Count 423 (150-450) k/uL Neutrophils % 73 % Lymphocytes % 21 % Monocytes % 4 % Eosinophils % 2 % Basophils % 0 % Neutrophils # 7.5 (1.3-7.7) k/uL Lymphocytes # 2.1 (1.0-4.8) k/uL Monocytes # 0.4 (0-1.0) k/uL Eosinophils # 0.2 (0-0.7) k/uL Basophils # 0.0 (0-0.2) k/uL PT 10.9 (9.0-12.0) sec INR 1.1 (<1.2) APTT 22.9 (22.0-30.0) sec Sodium (137-145) mmol/L Potassium (3.5-5.1) mmol/L Chloride (98-107) mmol/L Carbon Dioxide (22-30) mmol/L Anion Gap mmol/L BUN (7-17) mg/dL Creatinine (0.52-1.04) mg/dL Est GFR (CKD-EPI)AfAm (>60 ml/min/1.73 sqM) Est GFR (CKD-EPI)NonAf (>60 ml/min/1.73 sqM) Glucose (74-99) mg/dL Plasma Lactic Acid Srinivas (0.7-2.0) mmol/L Calcium (8.4-10.2) mg/dL Magnesium (1.6-2.3) mg/dL Total Bilirubin (0.2-1.3) mg/dL AST (14-36) U/L ALT (4-34) U/L Alkaline Phosphatase (38-126) U/L Total Protein (6.3-8.2) g/dL Albumin (3.5-5.0) g/dL Amylase (30-110) U/L Lipase (23-300) U/L Urine Color Yellow Urine Appearance Clear (Clear) Urine pH 6.0 (5.0-8.0) Ur Specific [place] 1.007 (1.001-1.035) Urine Protein Trace H (Negative) Urine Glucose (UA) Negative (Negative) Urine Ketones Negative (Negative) Urine Blood Small H (Negative) Urine Nitrite Negative (Negative) Urine Bilirubin Negative (Negative) Urine Urobilinogen <2.0 (<2.0) mg/dL Ur Leukocyte Esterase Negative (Negative) Urine RBC 3 (0-5) /hpf Urine WBC 1 (0-5) /hpf Ur Squamous Epith Cells <1 (0-4) /hpf Urine Opiates Screen Detected H (NotDetected) Ur Oxycodone Screen Detected H (NotDetected) Urine Methadone Screen Not Detected (NotDetected) Ur Propoxyphene Screen Not Detected (NotDetected) Ur Barbiturates Screen Not Detected (NotDetected) U Tricyclic Antidepress Not Detected (NotDetected) Ur Phencyclidine Scrn Not Detected (NotDetected) Ur Amphetamines Screen Not Detected (NotDetected) U Methamphetamines Scrn Not Detected (NotDetected) U Benzodiazepines Scrn Not Detected (NotDetected) Urine Cocaine Screen Not Detected (NotDetected) U Marijuana (THC) Screen Detected H (NotDetected) Serum Alcohol mg/dL 01/01/20 01/01/20 Range/Units 13:35 13:35 WBC (3.8-10.6) k/uL RBC (3.80-5.40) m/uL Hgb (11.4-16.0) gm/dL Hct (34.0-46.0) % MCV (80.0-100.0) fL MCH (25.0-35.0) pg MCHC (31.0-37.0) g/dL RDW (11.5-15.5) % Plt Count (150-450) k/uL Neutrophils % % Lymphocytes % % Monocytes % % Eosinophils % % Basophils % % Neutrophils # (1.3-7.7) k/uL Lymphocytes # (1.0-4.8) k/uL Monocytes # (0-1.0) k/uL Eosinophils # (0-0.7) k/uL Basophils # (0-0.2) k/uL PT (9.0-12.0) sec INR (<1.2) APTT (22.0-30.0) sec Sodium 139 (137-145) mmol/L Potassium 4.1 (3.5-5.1) mmol/L Chloride 104 (98-107) mmol/L Carbon Dioxide 25 (22-30) mmol/L Anion Gap 10 mmol/L BUN 14 (7-17) mg/dL Creatinine 0.61 (0.52-1.04) mg/dL Est GFR (CKD-EPI)AfAm >90 (>60 ml/min/1.73 sqM) Est GFR (CKD-EPI)NonAf >90 (>60 ml/min/1.73 sqM) Glucose 131 H (74-99) mg/dL Plasma Lactic Acid Srinivas 1.3 (0.7-2.0) mmol/L Calcium 10.1 (8.4-10.2) mg/dL Magnesium 1.7 (1.6-2.3) mg/dL Total Bilirubin 0.4 (0.2-1.3) mg/dL AST 22 (14-36) U/L ALT 15 (4-34) U/L Alkaline Phosphatase 101 (38-126) U/L Total Protein 8.0 (6.3-8.2) g/dL Albumin 4.8 (3.5-5.0) g/dL Amylase 42 (30-110) U/L Lipase 47 (23-300) U/L Urine Color Urine Appearance (Clear) Urine pH (5.0-8.0) Ur Specific [place] (1.001-1.035) Urine Protein (Negative) Urine Glucose (UA) (Negative) Urine Ketones (Negative) Urine Blood (Negative) Urine Nitrite (Negative) Urine Bilirubin (Negative) Urine Urobilinogen (<2.0) mg/dL Ur Leukocyte Esterase (Negative) Urine RBC (0-5) /hpf Urine WBC (0-5) /hpf Ur Squamous Epith Cells (0-4) /hpf Urine Opiates Screen (NotDetected) Ur Oxycodone Screen (NotDetected) Urine Methadone Screen (NotDetected) Ur Propoxyphene Screen (NotDetected) Ur Barbiturates Screen (NotDetected) U Tricyclic Antidepress (NotDetected) Ur Phencyclidine Scrn (NotDetected) Ur Amphetamines Screen (NotDetected) U Methamphetamines Scrn (NotDetected) U Benzodiazepines Scrn (NotDetected) Urine Cocaine Screen (NotDetected) U Marijuana (THC) Screen (NotDetected) Serum Alcohol <10 mg/dL - Radiology Data Radiology results: report reviewed EKG shows normal sinus rhythm normal EKG. Ventricular rate of 83 beats were minute. ND interval is 122 ms. Care instructions 74 ms. QT QTc is 380/455 seconds. Disposition Clinical Impression: Change in mental status, Chronic back pain, Dizziness Disposition: ADMITTED IP TO THIS [facility] Condition: Stable Is patient prescribed a controlled substance at d/c from ED?: No Referrals: Kaleb Huston DO [Primary Care Provider] - 1-2 days Time of Disposition: 16:05
[2020-01-01 13:53] LABS: Basophils % (A) 0 %; Eosinophils # (A) 0.2 k/uL (0-0.7); Eosinophils % (A) 2 %; HCT 48.1 % (34.0-46.0); HGB 15.1 gm/dL (11.4-16.0); Lymphocytes # (A) 2.1 k/uL (1.0-4.8); Lymphocytes % (A) 21 %; MCH 26.4 pg (25.0-35.0); MCHC 31.4 g/dL (31.0-37.0); MCV 84.2 fL (80.0-100.0); Mean Platelet Volume 6.7; Monocytes # (A) 0.4 k/uL (0-1.0); Monocytes % (A) 4 %; Neutrophils # (A) 7.5 k/uL (1.3-7.7); Neutrophils % (A) 73 %; Platelet Count 423 k/uL (150-450); RBC 5.71 m/uL (3.80-5.40); RDW 13.4 % (11.5-15.5); WBC 10.3 k/uL (3.8-10.6)
[2020-01-01 13:58] LABS: Appearance,Urine Clear (Clear); Bilirubin,Urine Negative (Negative); Blood,Urine Small (Negative); Color,Urine Yellow; Glucose,Urine (UA) Negative (Negative); Ketones,Urine Negative (Negative); Leukocyte Esterase,Urine Negative (Negative); Nitrite,Urine Negative (Negative); Protein,Urine Trace (Negative); RBC,Urine 3 /hpf (0-5); Specific Gravity,Urine 1.007 (1.001-1.035); Squamous Epithelial Cell,Urine <1 /hpf (0-4); Urobilinogen,Urine <2.0 mg/dL (<2.0); WBC,Urine 1 /hpf (0-5)
[2020-01-01 14:04] LABS: ALT 15 U/L (4-34); AST 22 U/L (14-36); African American GFR (CKD) >90 (>60 ml/min/1.73 sqM); Albumin 4.8 g/dL (3.5-5.0); Alcohol <10 mg/dL; Alkaline Phosphatase 101 U/L (38-126); Amylase 42 U/L (30-110); Anion Gap 10 mmol/L; Blood Urea Nitrogen 14 mg/dL (7-17); Calcium 10.1 mg/dL (8.4-10.2); Carbon Dioxide 25 mmol/L (22-30); Chloride 104 mmol/L (98-107); Glucose 131 mg/dL (74-99); Magnesium 1.7 mg/dL (1.6-2.3); Non-African American GFR(CKD) >90 (>60 ml/min/1.73 sqM); Potassium 4.1 mmol/L (3.5-5.1); Sodium 139 mmol/L (137-145); Total Bilirubin 0.4 mg/dL (0.2-1.3)
[2020-01-01] MEDS ORDERED: FAMOTIDINE 20 MG/2 ML VIAL IV STA (14:05)
[2020-01-01] MEDS ORDERED: diphenhydrAMINE 50 MG/ML 1 ML VIAL IVP STA (14:05)
[2020-01-01] MEDS ORDERED: methylPREDNISolone SOD SUCCI 125 MG/2 ML VIAL IV STA (14:05)
[2020-01-01 14:09] LABS: Cocaine Screen,Urine Not Detected (NotDetected); Opiate Screen,Urine Detected (NotDetected); Phencyclidine Screen,Urine Not Detected (NotDetected); Urn Cannabinoid Scrn Detected (NotDetected)
[2020-01-01 14:10] LABS: Amphetamine Screen,Urine Not Detected (NotDetected); Barbiturate Screen,Urine Not Detected (NotDetected); Benzodiazepines Screen,Urine Not Detected (NotDetected); Methadone Screen, Urine Not Detected (NotDetected); Oxycodone Screen, Urine Detected (NotDetected); Tricyclic Antidepressant,Urine Not Detected (NotDetected)
[2020-01-01 14:11] LABS: INR 1.1 (<1.2); Partial Thromboplastin Time 22.9 sec (22.0-30.0); Prothrombin Time 10.9 sec (9.0-12.0)
--- NOTE | 2020-01-01 14:32 | XR ---
EXAMINATION TYPE: XR chest 2V DATE OF EXAM: 01/01/2020 COMPARISON: 12/21/2019 INDICATION: Neuro deficit, dizziness TECHNIQUE: Frontal and lateral views of the chest are obtained. FINDINGS: The heart size is normal. The pulmonary vasculature is normal. The lungs are clear. Some hyperinflation flattening the diaphragms could BE compatible COPD. IMPRESSION: 1. No acute pulmonary process.
--- NOTE | 2020-01-01 15:17 | CT ---
EXAMINATION TYPE: CT angio head neck DATE OF EXAM: 01/01/2020 HISTORY: COMPARISON: None CT DLP: 1674.3 mGycm. Automated Exposure Control for Dose Reduction was Utilized. TECHNIQUE: CTA scan of the neck is performed with IV Contrast, patient injected with 65 mL of Isovue 370, axial images are obtained, coronal and sagittal reformatted images are reviewed. Three-D recons tructed images are created on an independent workstation and reviewed. Source images are reviewed. FINDINGS: Carotid/Vascular Structures: There is a three-vessel arch. Vertebral arteries appear codominant. The internal and external carotid artery branches appear normal. Vertebral arteries and internal carotid arteries are patent to the skull base. Cervical of [place]: Vertebral basilar system appears normal. Posterior cerebral vasculature is unrema rkable. Left internal carotid artery divides into A1 and M1 segments. Anterior communicating artery i s patent. A2 segments are normal. The left internal carotid artery terminates in the left M1 segment. The left A1 segment is absent. Posterior communicating arteries are absent IMPRESSION: 1. 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 2. Normal carotid bifurcations.
[2020-01-01] MEDS ORDERED: LABETALOL 5 MG/ML VIAL MDV IVP STA (15:42)
[2020-01-01] MEDS ORDERED: ASPIRIN 81 MG PO STA (15:55)
[2020-01-01] MEDS ORDERED: oxyCODONE-APAP 10-325MG 1 EACH TAB PO STA (15:57)
[2020-01-01] MEDS ORDERED: ASPIRIN 325 MG TAB PO STA (16:06)
[2020-01-01 20:24] VITALS: RESP 16
[2020-01-01] MEDS ORDERED: FLUTICASONE 50MCG/SPRAY NASAL 16GM EA NOSTRIL PRN (22:38)
[2020-01-01] MEDS ORDERED: ACETAMINOPHEN TAB 325 MG TAB PO PRN (22:43)
[2020-01-01] MEDS ORDERED: QUEtiapine 50 MG TAB PO SCH (22:45)
[2020-01-01] MEDS: oxyCODONE-APAP 7.5-325MG 1 EACH TAB PO PRN (22:51)
[2020-01-01] MEDS ORDERED: SODIUM CHLORIDE 0.9% 1,000 ML IV SCH (23:45)
--- NOTE | 2020-01-02 00:03 | P.HPIM ---
History of Present Illness H&P Date: 01/01/20 Chief Complaint: Possible drug reaction Patient is a 44-year-old female with a known history of fibromyalgia, rheumatoid arthritis, chronic back pain and migraine headaches, IBS, seizure disorder and asthma, ADD/ADHD, bipolar disorder and marijuana use presents to ER due to concern for acute drug reaction with Bactrim. Patient was diagnosed with urinary tract infection on 12/26/2019 and was started on Bactrim DS twice daily. Patient took antibiotics for 2 days after that as per her patient has been confused and delirious and is also having wobbling gait. Patient was also hallucinating and seeing the cat in places that has not been there. Patient was also complaining of dizziness and blurred vision. Patient was also having tremors and unable to sleep as well. Patient was having low-grade fever on admission and is also complaining of right flank pain. Denied any complaints of chest pain or shortness of breath. Chest x-ray showed no acute cardiopulmonary process CT angiogram of the head showed congenital variation [place] of [place]. Normal carotid bifurcations. EKG showed normal sinus rhythm UDS is positive for opiates, oxycodone and marijuana. Urine analysis is negative for infection. Other laboratory data reviewed. Blood pressure was 183/80 on admission. Review of Systems Constitutional: Patient does have fever and chills. No generalized weakness or weight loss. Abdomen: Patient denied nausea vomiting and diarrhea and abdominal pain. Cardiovascular: Patient denies any chest pain or short of breath no palpitations. Respiratory: patient denied any cough is from production. No shortness of breath Neurologic: Patient denied any numbness or tingling headache.ataxia, tremors, L[place]ER[place] Musculoskeletal: Patient denies any complaints of joint swelling or deformity. Skin: abscess in the inner thigh and purulent drainage. Psychiatric: Negative Endocrine: No heat or cold intolerance. No recent weight gain. Genitourinary: No dysuria or hematuria. 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 IBS, cellulitis of the chin, History of Any Multi-Drug Resistant Organisms: MRSA Date of last positivie culture/infection: 07/2016 MDRO Source:: chin Past Surgical History: Section, Cholecystectomy, Hysterectomy, Tubal Ligation Additional Past Surgical History / Comment(s): oral surgery . Pancreas biopsy May 2015. Past Anesthesia/Blood Transfusion Reactions: No Reported Reaction Past Psychological History: ADD/ADHD, Anxiety, Bipolar, Depression Additional Psychological History / Comment(s): borderline personality disorder Smoking Status: Light tobacco smoker Past Alcohol Use History: None Reported Past Drug Use History: Marijuana Additional Drug Use History / Comment(s): Says she occasionally has edible marijuana- a couple times within the last year. - Past Family History Father Family Medical History: No Reported History Additional Family Medical History / Comment(s): ADOPTED Medications and Allergies Home Medications Medication Instructions Recorded Confirmed Type Ipratropium/Albuterol Sulfate 2 puff INHALATION RT-BID 07/26/15 01/01/20 History [Combivent Respimat Inhaler] Spironolactone [Aldactone] 25 mg PO DAILY 02/05/17 01/01/20 History QUEtiapine [SEROquel] 50 mg PO HS 02/25/19 01/01/20 History diphenhydrAMINE [Benadryl] 50 mg PO TID 02/25/19 01/01/20 History Citalopram Hydrobromide [CeleXA] 20 mg PO DAILY 05/17/19 01/01/20 History Fluticasone Nasal [place] [Flonase 1 spray EA NOSTRIL HS PRN 05/17/19 01/01/20 History Nasal [place]] Ergocalciferol [Vitamin D2 50,000 unit PO WE 06/02/19 01/01/20 History (DRISDOL)] Citalopram Hydrobromide [CeleXA] 40 mg PO DAILY 06/12/19 01/01/20 History Albuterol Sulfate [Proair Hfa] 1 - 2 puff INHALATION RT-Q6H PRN 01/01/20 01/01/20 History Potassium Chloride 10 meq PO DAILY 01/01/20 01/01/20 History Sulfamethox-Tmp 800-160Mg [Bactrim 1 tab PO DIRECTED 01/01/20 01/01/20 History Ds] oxyCODONE-APAP 7.5-325MG [Percocet 1 tab PO TID PRN 01/01/20 01/01/20 History 7.5-325 mg] Allergies Allergy/AdvReac Type Severity Reaction Status Date / Time adhesive Allergy Rash/Hives Verified 01/01/20 16:01 amoxicillin Allergy Anaphylaxis Verified 01/01/20 16:01 azithromycin [From Zithromax] Allergy Anaphylaxis Verified 01/01/20 16:01 cephalexin monohydrate Allergy Anaphylaxis Verified 01/01/20 16:01 [From Keflex] ciprofloxacin Allergy Anaphylaxis Verified 01/01/20 16:01 clindamycin Allergy Anaphylaxis Verified 01/01/20 16:01 Iodinated Contrast Media Allergy Swelling Verified 01/01/20 16:01 [Iodinated Contrast- Oral and IV Dye] levofloxacin [From Levaquin] Allergy Rash/Hives Verified 01/01/20 16:01 naproxen Allergy Anaphylaxis Verified 01/01/20 16:01 NSAIDS (Non-Steroidal Allergy Rash/Hives Verified 01/01/20 16:01 Anti-Inflamma shellfish derived Allergy Anaphylaxis Verified 01/01/20 16:01 Sulfa (Sulfonamide Allergy Anaphylaxis Verified 01/01/20 16:01 Antibiotics) sulfamethoxazole Allergy Anaphylaxis Verified 01/01/20 16:01 [From Bactrim] tramadol Allergy Unknown Verified 01/01/20 16:01 trimethoprim [From Bactrim] Allergy Anaphylaxis Verified 01/01/20 16:01 Physical Exam Vitals: Vital Signs Temp Pulse Pulse Resp BP BP Pulse Ox 01/01/20 20:07 99.2 F 78 16 163/100 96 01/01/20 19:09 78 18 178/93 96 01/01/20 19:08 78 18 178/93 96 01/01/20 17:00 73 18 179/85 96 01/01/20 16:00 82 18 178/101 96 01/01/20 15:00 85 20 188/103 96 01/01/20 14:52 85 20 188/103 96 01/01/20 14:06 20 01/01/20 13:52 20 01/01/20 12:52 20 01/01/20 12:49 99.3 F 88 18 183/80 94 L Intake and Output 01/01/20 01/01/20 01/01/20 06:59 14:59 22:59 Intake Total 450 Balance 450 Intake: Oral 450 Other: # Voids 1 Weight 86.183 kg 86.183 kg PHYSICAL EXAMINATION: Patient is lying in the bed comfortably, no acute distress, awake alert and oriented.anxious. HEENT: Normocephalic. Neck is supple. Pupils reactive. Nostrils clear. Oral cavity is moist. Ears reveal no drainage. Neck reveals no JVD, carotid bruits, or thyromegaly. CHEST EXAMINATION: Trachea is central. Symmetrical expansion. Lung daniel clear to auscultation and percussion. CARDIAC: Normal S1, S2 with no gallops. No murmurs ABDOMEN: Soft. Bowel sounds normal. No organomegaly. No abdominal bruits. right upperinner thighabscess with purulent drainage and surrounding redness, swelling and induration. Moderate tenderness. Extremities: reveal no edema. No clubbing or cyanosis Neurologically awake, alert, oriented x3 with well-coordinated movements. confused and delirious at times, No focal deficits noted Skin: No rash or skin lesions. Psychiatric: Coperative. anxious. Musculoskeletal: No joint swelling or deformity. Normal range of motion. Results CBC & Chem 7: 01/01/20 13:35 01/01/20 13:35 Labs: Abnormal Lab Results - Last 24 Hours (Table) 01/01/20 01/01/20 01/01/20 Range/Units 13:35 13:35 13:35 RBC 5.71 H (3.80-5.40) m/uL Hct 48.1 H (34.0-46.0) % Glucose 131 H (74-99) mg/dL Urine Protein Trace H (Negative) Urine Blood Small H (Negative) Urine Opiates Screen Detected H (NotDetected) Ur Oxycodone Screen Detected H (NotDetected) U Marijuana (THC) Screen Detected H (NotDetected) Thrombosis Risk Factor Assmnt - DVT/VTE Prophylaxis DVT/VTE Prophylaxis: Pharmacologic Prophylaxis ordered Assessment and Plan Assessment: Delirium and hallucinations likely due to infection and also polysubstance use. Ataxia and blurred vision ruled out acute CVA. Recently being treated for UTI Hypertensive urgency on admission UDS is positive for opiates and marijuana History of CVA/TIA COPD/asthma Fibromyalgia Seizure disorder Chronic back pain Migraine headaches IBS ADD/ADHD Anxiety/depression, bipolar disorder Marijuana use DVT prophylaxis Morbid obesity with BMI 37.1 Allergies to multiple medications and antibiotics. Plan: Patient be continued on gentle hydration. Was given IV blood pressure medications and blood pressures fairly controlled now. We will start on antibiotics in the form of ceftriaxone and follow-up with urine cultures from her PCPs office. Continue with home blood pressure medications and psychiatric medications. Neurology was consulted for further evaluation. Further recommendations based on clinical course. Discussed with the patient and her at bedside in detail. Prognosis is guarded. Time with Patient: Greater than 30
[2020-01-02] MEDS: HEPARIN SODIUM,PORCINE 5,000 UNIT/ML 1 ML VIAL SQ SCH ×3 (00:14→17:04)
[2020-01-02] MEDS: MAGNESIUM SULFATE-D5W PMX 1 GM in DEXTROSE/WATER 1 100ML.BAG IVPB SCH ×2 (01:36→02:49)
[2020-01-02] MEDS: oxyCODONE-APAP 7.5-325MG 1 EACH TAB PO PRN ×2 (06:37→14:03)
[2020-01-02 07:22] LABS: Cholesterol 187 mg/dL (<200); HDL Cholesterol 59 mg/dL (40-60); LDL Cholesterol,Calculated 105 mg/dL (0-99); Triglycerides 113 mg/dL (<150)
[2020-01-02] MEDS ORDERED: ASPIRIN 325 MG TAB PO SCH (09:00)
[2020-01-02] MEDS ORDERED: SPIRONOLACTONE 25 MG TAB PO SCH (09:00)
[2020-01-02] MEDS ORDERED: CITALOPRAM HYDROBROMIDE 20 MG TAB PO SCH ×2 (09:00)
[2020-01-02] MEDS ORDERED: ERGOCALCIFEROL 50,000 UNIT CAP PO SCH (09:00)
[2020-01-02 11:32] VITALS: BMI 37.0
--- NOTE | 2020-01-02 13:04 | P.CNNES ---
History of Present Illness Consult date: 01/02/20 Requesting physician: Denice Carlson Reason for Consult: Altered mental status, vertigo History of Present Illness: Patient is a 44-year-old female arrived to the hospital at 12:48 PM yesterday for concern of adverse reaction to Bactrim. Patient has been treated for UTI, and has been on Bactrim since 12/26/2019. Over the past 3 days she is "losing it". Patient has been hallucinating, seeing the cat and places that hasn't been also complained of dizziness. Patient also has a low-grade temperature 99.3. Her blood pressure on arrival was 183/80, pulse rate 88 and temperature 99.3. Her blood pressure has been persistently up, most recent 166/100. Patient tells me that she used to take Lyrica long time ago but had side effects from it with dizziness and mental confusion. Patient's back pain was worse lately therefore she took Lyrica 50 mg 3-4 days ago and then started noticing confusion. Patient further told me that she does take marijuana candy about 6 a day. However in the last few days she was taking up to 12 candies per day. This probably led to confusion. Patient states that she couldn't separate fact from flexion. Did not know what was real and what was not. Patient states that she also has chronic back pain and she takes Percocet 3-4 tablets per day. Patient states that previously she has taken up to 10 Percocets in a day but has not overdosed on Percocet in the last few weeks. Patient denies any focal numbness tingling or weakness. Patient denies any alcohol. She does smoke half pack per day for last 20 years. Chest x-ray is normal. 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 Normal carotid bifurcation. Computed tomography scan of the head also appears normal. Paranasal sinuses and external auditory canal is clear. EKG shows normal sinus rhythm. Patient's blood test shows normal CBC, PT/PTT, Chem-7, hepatic panel. Cholesterol 187, LDL 105, HDL 59 and triglycerides 113. Urine drug screen positive for opiate, oxycodone and marijuana. Review of Systems Patient denies headache problem with the vision hoarseness sore throat or dysphagia. Denies chest pain shortness of breath wheezing or cough. Patient do es have chronic back pain. Denies numbness tingling. Denies nausea vomiting diarrhea. Please refer to HPI for details. 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 IBS, cellulitis of the chin, History of Any Multi-Drug Resistant Organisms: MRSA Date of last positivie culture/infection: 07/2016 MDRO Source:: chin Past Surgical History: Section, Cholecystectomy, Hysterectomy, Tubal Ligation Additional Past Surgical History / Comment(s): oral surgery . Pancreas biopsy May 2015. Past Anesthesia/Blood Transfusion Reactions: No Reported Reaction Past Psychological History: ADD/ADHD, Anxiety, Bipolar, Depression Additional Psychological History / Comment(s): borderline personality disorder Smoking Status: Light tobacco smoker Past Alcohol Use History: None Reported Past Drug Use History: Marijuana Additional Drug Use History / Comment(s): Says she occasionally has edible marijuana- a couple times within the last year. - Past Family History Father Family Medical History: No Reported History Additional Family Medical History / Comment(s): ADOPTED Medications and Allergies Home Medications Medication Instructions Recorded Confirmed Type Ipratropium/Albuterol Sulfate 2 puff INHALATION RT-BID 07/26/15 01/01/20 History [Combivent Respimat Inhaler] Spironolactone [Aldactone] 25 mg PO DAILY 02/05/17 01/01/20 History QUEtiapine [SEROquel] 50 mg PO HS 02/25/19 01/01/20 History diphenhydrAMINE [Benadryl] 50 mg PO TID 02/25/19 01/01/20 History Citalopram Hydrobromide [CeleXA] 20 mg PO DAILY 05/17/19 01/01/20 History Fluticasone Nasal [place] [Flonase 1 spray EA NOSTRIL HS PRN 05/17/19 01/01/20 History Nasal [place]] Ergocalciferol [Vitamin D2 50,000 unit PO WE 06/02/19 01/01/20 History (DRISDOL)] Citalopram Hydrobromide [CeleXA] 40 mg PO DAILY 06/12/19 01/01/20 History Albuterol Sulfate [Proair Hfa] 1 - 2 puff INHALATION RT-Q6H PRN 01/01/20 01/01/20 History Potassium Chloride 10 meq PO DAILY 01/01/20 01/01/20 History Sulfamethox-Tmp 800-160Mg [Bactrim 1 tab PO DIRECTED 01/01/20 01/01/20 History Ds] oxyCODONE-APAP 7.5-325MG [Percocet 1 tab PO TID PRN 01/01/20 01/01/20 History 7.5-325 mg] Allergies Allergy/AdvReac Type Severity Reaction Status Date / Time adhesive Allergy Rash/Hives Verified 01/01/20 16:01 amoxicillin Allergy Anaphylaxis Verified 01/01/20 16:01 azithromycin [From Zithromax] Allergy Anaphylaxis Verified 01/01/20 16:01 cephalexin monohydrate Allergy Anaphylaxis Verified 01/01/20 16:01 [From Keflex] ciprofloxacin Allergy Anaphylaxis Verified 01/01/20 16:01 clindamycin Allergy Anaphylaxis Verified 01/01/20 16:01 Iodinated Contrast Media Allergy Swelling Verified 01/01/20 16:01 [Iodinated Contrast- Oral and IV Dye] levofloxacin [From Levaquin] Allergy Rash/Hives Verified 01/01/20 16:01 naproxen Allergy Anaphylaxis Verified 01/01/20 16:01 NSAIDS (Non-Steroidal Allergy Rash/Hives Verified 01/01/20 16:01 Anti-Inflamma shellfish derived Allergy Anaphylaxis Verified 01/01/20 16:01 Sulfa (Sulfonamide Allergy Anaphylaxis Verified 01/01/20 16:01 Antibiotics) sulfamethoxazole Allergy Anaphylaxis Verified 01/01/20 16:01 [From Bactrim] tramadol Allergy Unknown Verified 01/01/20 16:01 trimethoprim [From Bactrim] Allergy Anaphylaxis Verified 01/01/20 16:01 Physical Examination - Vital Signs Vital Signs: Vital Signs Temp Pulse Pulse Resp BP BP Pulse Ox 01/02/20 08:00 98.2 F 81 16 166/100 92 L 01/02/20 04:00 98.5 F 82 16 165/97 94 L 01/02/20 00:00 98.9 F 88 16 176/96 97 01/01/20 20:07 99.2 F 78 16 163/100 96 01/01/20 20:00 99.2 F 78 16 163/100 96 01/01/20 19:09 78 18 178/93 96 01/01/20 19:08 78 18 178/93 96 01/01/20 17:00 73 18 179/85 96 01/01/20 16:00 82 18 178/101 96 01/01/20 15:00 85 20 188/103 96 01/01/20 14:52 85 20 188/103 96 01/01/20 14:06 20 01/01/20 13:52 20 01/01/20 12:52 20 01/01/20 12:49 99.3 F 88 18 183/80 94 L Intake and Output 01/01/20 01/02/20 01/02/20 22:59 06:59 14:59 Intake Total 450 450 Balance 450 450 Intake: Oral 450 450 Other: Voiding Method Toilet Toilet # Voids 1 1 Weight 86.183 kg 86 kg On examination patient is a young female, in no acute distress. Arturo pollack is alert and awake. Speech and language functions are normal. Attention and concentration fund of knowledge is adequate. On cranial nerve examination pupils are round and reactive to light. Visual daniel are full. Extraocular muscles are intact with no nystagmus. Face is symmetric, tongue protrudes the midline. Palatal elevation and sensation normal. Hearing and shoulder shrug normal. On muscle strength testing there is no pronator drift and strength is normal in arms and legs distally and proximally. Reflexes are 2+ and plantars downgoing. Sensory touch is equal. No ataxia for [id number] testing tone and bulk of muscles normal. Patient is slightly tremulous. There is no obvious bruit, S1 and S2 audible. No peripheral edema. Patient appears tremulous with outstretched hands. Abdomen is soft and nontender. Chest is clear. Results - Laboratory Findings CBC and BMP: 01/01/20 13:35 01/01/20 13:35 Abnormal Lab Findings: Abnormal Labs 01/01/20 01/01/20 01/01/20 13:35 13:35 13:35 RBC 5.71 H Hct 48.1 H Glucose 131 H LDL Cholesterol, Calc Urine Protein Trace H Urine Blood Small H Urine Opiates Screen Detected H Ur Oxycodone Screen Detected H U Marijuana (THC) Screen Detected H 01/02/20 06:34 RBC Hct Glucose LDL Cholesterol, Calc 105 H Urine Protein Urine Blood Urine Opiates Screen Ur Oxycodone Screen U Marijuana (THC) Screen Assessment and Plan Assessment: * Altered mental status, likely due to overdosing on marijuana, and perhaps side effects of Lyrica. * Chronic back pain * Opiate dependence. Plan: * Patient counseled about limiting amount of marijuana that she takes per day. * Stop Lyrica. * Tobacco cessation * Neurologically clear for discharge.
[2020-01-02 13:50] VITALS: PULSE 83
[2020-01-02 16:21] VITALS: BP 170/80; TEMP 98
== END 2020-01-02 17:09 | disposition home or self-care (01) ==
LOC: EC 12:48 → 3SCARD 15:55
PROVIDERS: ADMIT Internal Medicine; ATTEND Internal Medicine
DX: R41.0 Disorientation, unspecified (principal); N39.0 Urinary tract infection, site not specified; I16.0 Hypertensive urgency; R44.3 Hallucinations, unspecified; R27.0 Ataxia, unspecified; F11.20 Opioid dependence, uncomplicated; F12.90 Cannabis use, unspecified, uncomplicated; G89.29 Other chronic pain; M54.9 Dorsalgia, unspecified; M79.7 Fibromyalgia; M06.9 Rheumatoid arthritis, unspecified; J44.9 Chronic obstructive pulmonary disease, unspecified; I50.9 Heart failure, unspecified; Z03.818 Encounter for observation for suspected exposure to other biological agents ruled out; G40.909 Epilepsy, unspecified, not intractable, without status epilepticus; K58.9 Irritable bowel syndrome, unspecified; G43.909 Migraine, unspecified, not intractable, without status migrainosus; K86.89 Other specified diseases of pancreas; F90.9 Attention-deficit hyperactivity disorder, unspecified type; F31.9 Bipolar disorder, unspecified; F41.9 Anxiety disorder, unspecified; F17.210 Nicotine dependence, cigarettes, uncomplicated; R25.1 Tremor, unspecified; Q89.9 Congenital malformation, unspecified; H53.8 Other visual disturbances; F60.3 Borderline personality disorder; E66.01 Morbid (severe) obesity due to excess calories; Z68.37 Body mass index [BMI] 37.0-37.9, adult; Z79.899 Other long term (current) drug therapy; Z88.6 Allergy status to analgesic agent; Z88.1 Allergy status to other antibiotic agents; Z91.041 Radiographic dye allergy status; Z88.5 Allergy status to narcotic agent; Z88.0 Allergy status to penicillin; Z91.013 Allergy to seafood; Z88.2 Allergy status to sulfonamides; Z91.048 Other nonmedicinal substance allergy status; Z86.73 Personal history of transient ischemic attack (TIA), and cerebral infarction without residual deficits; Z87.442 Personal history of urinary calculi; Z86.14 Personal history of Methicillin resistant Staphylococcus aureus infection; Z87.01 Personal history of pneumonia (recurrent); Z90.710 Acquired absence of both cervix and uterus; Z90.49 Acquired absence of other specified parts of digestive tract; Z98.891 History of uterine scar from previous surgery; Z86.19 Personal history of other infectious and parasitic diseases
CPT/HCPCS: 96361 ×3; 96365; 96366; 96367; 96372; 96375; 99285; 36415; 93005; 97162; 97166; 92610; 92523; 80061; 80053; 82150; 83605; 83690; 83735; 85025; 85610; 85730; 81001; 87040; 80306; 71046; 70496; 70498; G0378 ×2; G0480; U0003; J1200; J1644; J2930; J0696; J3475; Q9967; 80320

== ENCOUNTER 2020-05-28 13:59 | Emergency (ER) | payer MEDICARE ==
[2020-05-28 15:16] LABS: Appearance,Urine Cloudy (Clear); Bacteria,Urine Rare /hpf; Bilirubin,Urine Negative (Negative); Blood,Urine Trace (Negative); Color,Urine Yellow; Glucose,Urine (UA) Negative (Negative); Ketones,Urine Negative (Negative); Leukocyte Esterase,Urine Negative (Negative); Mucus,Urine Many /hpf; Nitrite,Urine Negative (Negative); PH, Urine 8.5 (5.0-8.0); Protein,Urine Trace (Negative); RBC,Urine 2 /hpf (0-5); Specific Gravity,Urine 1.021 (1.001-1.035); Squamous Epithelial Cell,Urine 7 /hpf (0-4); Urobilinogen,Urine <2.0 mg/dL (<2.0); WBC,Urine 1 /hpf (0-5)
[2020-05-28] MEDS ORDERED: SODIUM CHLORIDE 0.9% 1,000 ML IV STA (16:20)
[2020-05-28] MEDS ORDERED: MORPHINE SULFATE 4 MG/ML SYRINGE IV STA (16:20)
[2020-05-28] MEDS ORDERED: ONDANSETRON 4 MG/2 ML VIAL IVP STA (16:20)
[2020-05-28] MEDS ORDERED: PANTOPRAZOLE 40 MG/10 ML VIAL IVP STA (16:20)
--- NOTE | 2020-05-28 16:20 | ED ---
Abdominal Pain HPI - General Chief Complaint: Abdominal Pain Stated Complaint: abd pain Time Seen by Provider: 05/28/20 15:36 Source: patient, RN notes reviewed, old records reviewed Mode of arrival: ambulatory Limitations: no limitations - History of Present Illness Initial Comments: This is a 45-year-old female DF she presents today for evaluation, patient's presenting for abdominal pain right lower quadrant abdominal pain. Sugar pubic abdominal pain. Feels a prior cyst rupture where she needs surgery. Patient is without fever does have nausea symptoms worse after she eats MD Complaint: abdominal pain -: days(s) Location: RLQ, suprapubic Radiation: suprapubic Migration to: no migration Severity scale (1-10): 7 Quality: aching Consistency: constant Improves With: nothing Worsens With: nothing Associated Symptoms: nausea - Related Data Home Medications Medication Instructions Recorded Confirmed Ipratropium/Albuterol Sulfate 2 puff INHALATION RT-BID 07/26/15 05/28/20 [Combivent Respimat Inhaler] Spironolactone [Aldactone] 25 mg PO DAILY 02/05/17 05/28/20 QUEtiapine [SEROquel] 100 mg PO HS 02/25/19 05/28/20 diphenhydrAMINE [Benadryl] 50 mg PO TID 02/25/19 05/28/20 Citalopram Hydrobromide [CeleXA] 20 mg PO DAILY 05/17/19 05/28/20 Fluticasone Nasal [place] [Flonase 1 spray EA NOSTRIL HS PRN 05/17/19 05/28/20 Nasal [place]] Ergocalciferol [Vitamin D2 50,000 unit PO WE 06/02/19 05/28/20 (DRISDOL)] Citalopram Hydrobromide [CeleXA] 40 mg PO DAILY 06/12/19 05/28/20 Albuterol Sulfate [Proair Hfa] 1 - 2 puff INHALATION RT-QID PRN 01/01/20 05/28/20 oxyCODONE-APAP 7.5-325MG [Percocet 1 tab PO TID PRN 01/01/20 05/28/20 7.5-325 mg] Carvedilol [Coreg] 25 mg PO BID 11/11/20 11/11/20 Dicyclomine [Bentyl] 10 mg PO QID PRN 05/28/20 05/28/20 Allergies Allergy/AdvReac Type Severity Reaction Status Date / Time adhesive Allergy Rash/Hives Verified 05/28/20 18:06 amoxicillin Allergy Anaphylaxis Verified 05/28/20 18:06 azithromycin [From Zithromax] Allergy Anaphylaxis Verified 05/28/20 18:06 cephalexin monohydrate Allergy Anaphylaxis Verified 05/28/20 18:06 [From Keflex] ciprofloxacin Allergy Anaphylaxis Verified 05/28/20 18:06 clindamycin Allergy Anaphylaxis Verified 05/28/20 18:06 Iodinated Contrast Media Allergy Swelling Verified 05/28/20 18:06 [Iodinated Contrast- Oral and IV Dye] levofloxacin [From Levaquin] Allergy Rash/Hives Verified 05/28/20 18:06 naproxen Allergy Anaphylaxis Verified 05/28/20 18:06 NSAIDS (Non-Steroidal Allergy Rash/Hives Verified 05/28/20 18:06 Anti-Inflamma shellfish derived Allergy Anaphylaxis Verified 05/28/20 18:06 Sulfa (Sulfonamide Allergy Anaphylaxis Verified 05/28/20 18:06 Antibiotics) sulfamethoxazole Allergy Anaphylaxis Verified 05/28/20 18:06 [From Bactrim] tramadol Allergy Unknown Verified 05/28/20 18:06 trimethoprim [From Bactrim] Allergy Anaphylaxis Verified 05/28/20 18:06 Review of Systems ROS Statement: Those systems with pertinent positive or pertinent negative responses have been documented in the HPI. ROS Other: All systems not noted in ROS Statement are negative. 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 IBS, cellulitis of the chin, History of Any Multi-Drug Resistant Organisms: MRSA Date of last positivie culture/infection: 07/2016 MDRO Source:: chin Past Surgical History: Section, Cholecystectomy, Hysterectomy, Tubal Ligation Additional Past Surgical History / Comment(s): oral surgery . Pancreas biopsy May 2015. Past Anesthesia/Blood Transfusion Reactions: No Reported Reaction Past Psychological History: ADD/ADHD, Anxiety, Bipolar, Depression Smoking Status: Current every day smoker Past Alcohol Use History: None Reported Past Drug Use History: Marijuana - Past Family History Father Family Medical History: No Reported History Additional Family Medical History / Comment(s): ADOPTED General Exam Limitations: no limitations General appearance: alert, in no apparent distress Head exam: Present: atraumatic, normocephalic, normal inspection Eye exam: Present: normal appearance, PERRL, EOMI. Absent: scleral icterus, conjunctival injection, periorbital swelling ENT exam: Present: normal exam, mucous membranes moist Neck exam: Present: normal inspection. Absent: tenderness, meningismus, lymphadenopathy Respiratory exam: Present: normal lung sounds bilaterally. Absent: respiratory distress, wheezes, rales, rhonchi, stridor Cardiovascular Exam: Present: regular rate, normal rhythm, normal heart sounds. Absent: systolic murmur, diastolic murmur, rubs, gallop, clicks GI/Abdominal exam: Present: soft, normal bowel sounds. Absent: distended, tenderness, guarding, rebound, rigid Extremities exam: Present: normal inspection, full ROM, normal capillary refill. Absent: tenderness, pedal edema, joint swelling, calf tenderness Back exam: Present: normal inspection Neurological exam: Present: alert, oriented X3, CN II-XII intact Psychiatric exam: Present: normal affect, normal mood Skin exam: Present: warm, dry, intact, normal color. Absent: rash Course Vital Signs 05/28/20 14:34 Temperature 98.0 F Pulse Rate 72 Respiratory 20 Rate Blood Pressure 181/93 O2 Sat by Pulse 96 Oximetry - Reevaluation(s) Reevaluation #1: 05/28/20 16:56 Medical records reviewed Reevaluation #2: 05/28/20 18:57 Patient has pain control Reevaluation #3: 05/28/20 18:58 Patient informed results and questions of been answered Medical Decision Making - Medical Decision Making 45 female to the ER for evaluation of abdominal pain patient has no acute findings here in the ER can be discharged home - Lab Data Lab Results 05/28/20 Range/Units 14:40 Urine Color Yellow Urine Appearance Cloudy H (Clear) Urine pH 8.5 H (5.0-8.0) Ur Specific [place] 1.021 (1.001-1.035) Urine Protein Trace H (Negative) Urine Glucose (UA) Negative (Negative) Urine Ketones Negative (Negative) Urine Blood Trace H (Negative) Urine Nitrite Negative (Negative) Urine Bilirubin Negative (Negative) Urine Urobilinogen <2.0 (<2.0) mg/dL Ur Leukocyte Esterase Negative (Negative) Urine RBC 2 (0-5) /hpf Urine WBC 1 (0-5) /hpf Ur Squamous Epith Cells 7 H (0-4) /hpf Urine Bacteria Rare H (None) /hpf Urine Mucus Many H (None) /hpf - Radiology Data Radiology results: report reviewed (CT head and pelvis negative for acute disease), image reviewed Disposition Clinical Impression: Abdominal pain Disposition: HOME SELF-CARE Condition: Good Instructions (If sedation given, give patient instructions): Abdominal Pain (ED) Is patient prescribed a controlled substance at d/c from ED?: No Referrals: Kaleb Huston DO [Primary Care Provider] - 1-2 days
[2020-05-28] MEDS ORDERED: HYDROcodone/APAP 10-325MG 1 EACH TAB PO ONE (17:08)
[2020-05-28] MEDS ORDERED: FAMOTIDINE 20 MG TAB PO STA (17:09)
[2020-05-28] MEDS ORDERED: ONDANSETRON ODT 4 MG TAB PO STA (17:09)
--- NOTE | 2020-05-28 18:52 | CT ---
EXAMINATION TYPE: CT abdomen pelvis wo con DATE OF EXAM: 05/28/2020 COMPARISON: 06/01/2019 HISTORY: RLQ pain CT DLP: 1013.8 mGycm Automated exposure control for dose reduction was used. Lung bases are clear. There is no pleural effusion. Heart size is normal. There is no pericardial eff usion. Liver spleen stomach pancreas appear normal. Bile ducts are not dilated. There are clips from cholecystectomy. There is no adrenal mass. Kidneys have normal size. There is no hydronephrosis. Ureters are not dilated. There is no retroperit dye adenopathy. Bladder is almost empty. There is no inguinal hernia. There is no free fluid in the pelvis. There is no ascites or free air. There is no sign of a bowel obstruction. There is no mesenteric serena a. Appendix is medial and appears normal. The lumbar vertebra show normal spacing and alignment. There is no compression fracture. The bony pel vis appears intact. Hip joints are intact. IMPRESSION: Normal appendix. No renal stone or obstruction. No sign of acute abdomen and pelvis. No adverse chaves e compared to old exam.
[2020-05-28 19:08] VITALS: BP 191/119; PULSE 66; RESP 18; TEMP 98.8
== END 2020-05-28 19:08 | disposition home or self-care (01) ==
LOC: EC 13:59
DX: R10.31 Right lower quadrant pain (principal); I11.0 Hypertensive heart disease with heart failure; I50.9 Heart failure, unspecified; J44.9 Chronic obstructive pulmonary disease, unspecified; K58.9 Irritable bowel syndrome, unspecified; F32.9 Major depressive disorder, single episode, unspecified; F41.9 Anxiety disorder, unspecified; F17.200 Nicotine dependence, unspecified, uncomplicated; Z79.899 Other long term (current) drug therapy; Z91.048 Other nonmedicinal substance allergy status; Z88.0 Allergy status to penicillin; Z88.1 Allergy status to other antibiotic agents; Z91.041 Radiographic dye allergy status; Z88.6 Allergy status to analgesic agent; Z91.013 Allergy to seafood; Z88.2 Allergy status to sulfonamides; Z88.5 Allergy status to narcotic agent; Z87.442 Personal history of urinary calculi; Z86.73 Personal history of transient ischemic attack (TIA), and cerebral infarction without residual deficits; Z90.49 Acquired absence of other specified parts of digestive tract; Z90.710 Acquired absence of both cervix and uterus; Z98.51 Tubal ligation status
CPT/HCPCS: 74176; 81001; 99284

== ENCOUNTER 2020-06-03 00:10 | Emergency (ER) | payer MEDICARE ==
--- NOTE | 2020-06-03 00:21 | ED ---
General Adult HPI - General Chief complaint: GI Bleed Stated complaint: Blood in Urine Time Seen by Provider: 06/03/20 00:19 Source: patient Mode of arrival: ambulatory Limitations: no limitations - History of Present Illness Initial comments: 45-year-old female with history of IBS presenting to the emergency department with a chief complaint of abdominal pain and blood in his stool. Patient reports she was emergency department by one week ago with no significant findings. States she continues to have the same pain on the right side of the abdomen with some radiation to the back. States she has chronic diarrhea after she had a cholecystectomy. She states that she took it [place] while she was at home today was not prescribed to her. Patient reports 2 days of having blood in the stool. She states it is bright red. Denies history of hemorrhoids. Denies any nausea or vomiting. Denies any antecedent fevers or chills. No chest pain shortness of breath. It has any urinary or vaginal symptoms. - Related Data Home Medications Medication Instructions Recorded Confirmed Ipratropium/Albuterol Sulfate 2 puff INHALATION RT-BID 07/26/15 05/28/20 [Combivent Respimat Inhaler] Spironolactone [Aldactone] 25 mg PO DAILY 02/05/17 05/28/20 QUEtiapine [SEROquel] 100 mg PO HS 02/25/19 05/28/20 diphenhydrAMINE [Benadryl] 50 mg PO TID 02/25/19 05/28/20 Citalopram Hydrobromide [CeleXA] 20 mg PO DAILY 05/17/19 05/28/20 Fluticasone Nasal [place] [Flonase 1 spray EA NOSTRIL HS PRN 05/17/19 05/28/20 Nasal [place]] Ergocalciferol [Vitamin D2 50,000 unit PO WE 06/02/19 05/28/20 (DRISDOL)] Citalopram Hydrobromide [CeleXA] 40 mg PO DAILY 06/12/19 05/28/20 Albuterol Sulfate [Proair Hfa] 1 - 2 puff INHALATION RT-QID PRN 01/01/20 05/28/20 oxyCODONE-APAP 7.5-325MG [Percocet 1 tab PO TID PRN 01/01/20 05/28/20 7.5-325 mg] Carvedilol [Coreg] 25 mg PO BID 05/28/20 05/28/20 Dicyclomine [Bentyl] 10 mg PO QID PRN 05/28/20 05/28/20 Allergies Allergy/AdvReac Type Severity Reaction Status Date / Time adhesive Allergy Rash/Hives Verified 06/03/20 00:18 amoxicillin Allergy Anaphylaxis Verified 06/03/20 00:18 azithromycin [From Zithromax] Allergy Anaphylaxis Verified 06/03/20 00:18 cephalexin monohydrate Allergy Anaphylaxis Verified 06/03/20 00:18 [From Keflex] ciprofloxacin Allergy Anaphylaxis Verified 06/03/20 00:18 clindamycin Allergy Anaphylaxis Verified 06/03/20 00:18 Iodinated Contrast Media Allergy Swelling Verified 06/03/20 00:18 [Iodinated Contrast- Oral and IV Dye] levofloxacin [From Levaquin] Allergy Rash/Hives Verified 06/03/20 00:18 naproxen Allergy Anaphylaxis Verified 06/03/20 00:18 NSAIDS (Non-Steroidal Allergy Rash/Hives Verified 06/03/20 00:18 Anti-Inflamma shellfish derived Allergy Anaphylaxis Verified 06/03/20 00:18 Sulfa (Sulfonamide Allergy Anaphylaxis Verified 06/03/20 00:18 Antibiotics) sulfamethoxazole Allergy Anaphylaxis Verified 06/03/20 00:18 [From Bactrim] tramadol Allergy Unknown Verified 06/03/20 00:18 trimethoprim [From Bactrim] Allergy Anaphylaxis Verified 06/03/20 00:18 Review of Systems ROS Statement: Those systems with pertinent positive or pertinent negative responses have been documented in the HPI. ROS Other: All systems not noted in ROS Statement are negative. 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 IBS, cellulitis of the chin, History of Any Multi-Drug Resistant Organisms: MRSA Date of last positivie culture/infection: 07/2016 MDRO Source:: chin Past Surgical History: Section, Cholecystectomy, Hysterectomy, Tubal Ligation Additional Past Surgical History / Comment(s): oral surgery . Pancreas biopsy May 2015. Past Anesthesia/Blood Transfusion Reactions: No Reported Reaction Past Psychological History: ADD/ADHD, Anxiety, Bipolar, Depression Smoking Status: Current every day smoker Past Alcohol Use History: None Reported Past Drug Use History: Marijuana - Past Family History Father Family Medical History: No Reported History Additional Family Medical History / Comment(s): ADOPTED General Exam Limitations: no limitations General appearance: alert, in no apparent distress, obese Head exam: Present: atraumatic, normocephalic, normal inspection Eye exam: Present: normal appearance, PERRL, EOMI Pupils: Present: normal accommodation ENT exam: Present: normal exam, normal oropharynx, mucous membranes moist, TM's normal bilaterally, normal external ear exam Neck exam: Present: normal inspection, full ROM. Absent: tenderness, meningismus, lymphadenopathy, thyromegaly Respiratory exam: Present: normal lung sounds bilaterally. Absent: respiratory distress, wheezes, rales Cardiovascular Exam: Present: regular rate, normal rhythm, normal heart sounds. Absent: systolic murmur, diastolic murmur GI/Abdominal exam: Present: soft, tenderness (Right flank or lower quadrant). Absent: distended, guarding, rebound, rigid Rectal exam: Present: normal rectal tone, hemorrhoids (Small external hemorrhoid at 5:00). Absent: black stool, bloody stool Extremities exam: Present: normal inspection, full ROM, normal capillary refill. Absent: tenderness, pedal edema, joint swelling, calf tenderness Back exam: Present: normal inspection, full ROM. Absent: tenderness, CVA tenderness (R), CVA tenderness (L) Neurological exam: Present: alert, oriented X3 Psychiatric exam: Present: normal affect, normal mood. Absent: depressed, a gitated, anxious, flat affect, manic, homicidal ideation Skin exam: Present: warm, dry, intact, normal color Course Vital Signs 06/03/20 00:16 Temperature 98.3 F Pulse Rate 89 Respiratory 18 Rate Blood Pressure 164/123 O2 Sat by Pulse 96 Oximetry - Reevaluation(s) Reevaluation #1: 06/03/20 01:21 Medical record reviewed Medical Decision Making - Medical Decision Making 45-year-old female with history of IBS presenting to the emergency Department with chief complaint of abdominal pain and blood in his stool. On physical examination, she does have some right flank right lower quadrant abdominal pain. This pain has been here for quite some time. She does have a small external hemorrhoid at 5:00 which I suspect could've caused the hematochezia that she noticed at home. Patient had a CT one week ago of the abdomen and pelvis with no significant findings. Patient is a frequent visitor to the emergency d [facility]. Patient was given analgesia in the emergency department. CBC reveals no signs of anemia with hemoglobin of 14.2. CMP unremarkable for slight increase EBU in a 23. Urine reveals trace amounts of blood and no signs of urinary tract infection. Occult stool was negative. On reevaluation, patient reports improvement in symptoms. Advised to follow with a GI specialist. Patient is hypertensive on arrival. Upon discharge, she continues to be hypertensive. sHe states this is typical for her whenever she is in pain with this. Strict return partners were thoroughly discussed with patient's attending agreeable. Case discussed with physician. - Lab Data Result diagrams: 06/03/20 00:41 06/03/20 00:41 Lab Results 06/03/20 06/03/20 06/03/20 Range/Units 00:41 00:41 00:41 WBC 10.8 H (3.8-10.6) k/uL RBC 5.47 H (3.80-5.40) m/uL Hgb 14.3 (11.4-16.0) gm/dL Hct 46.7 H (34.0-46.0) % MCV 85.4 (80.0-100.0) fL MCH 26.2 (25.0-35.0) pg MCHC 30.7 L (31.0-37.0) g/dL RDW 13.3 (11.5-15.5) % Plt Count 396 (150-450) k/uL MPV 7.0 Neutrophils % 52 % Lymphocytes % 38 % Monocytes % 6 % Eosinophils % 2 % Basophils % 1 % Neutrophils # 5.7 (1.3-7.7) k/uL Lymphocytes # 4.1 (1.0-4.8) k/uL Monocytes # 0.6 (0-1.0) k/uL Eosinophils # 0.2 (0-0.7) k/uL Basophils # 0.1 (0-0.2) k/uL Sodium 138 (137-145) mmol/L Potassium 4.8 (3.5-5.1) mmol/L Chloride 106 (98-107) mmol/L Carbon Dioxide 26 (22-30) mmol/L Anion Gap 6 mmol/L BUN 23 H (7-17) mg/dL Creatinine 0.83 (0.52-1.04) mg/dL Est GFR (CKD-EPI)AfAm >90 (>60 ml/min/1.73 sqM) Est GFR (CKD-EPI)NonAf 86 (>60 ml/min/1.73 sqM) Glucose 132 H (74-99) mg/dL Calcium 9.6 (8.4-10.2) mg/dL Total Bilirubin 0.3 (0.2-1.3) mg/dL AST 21 (14-36) U/L ALT 14 (4-34) U/L Alkaline Phosphatase 90 (38-126) U/L Total Protein 7.5 (6.3-8.2) g/dL Albumin 4.4 (3.5-5.0) g/dL Urine Color Yellow Urine Appearance Cloudy H (Clear) Urine pH 6.0 (5.0-8.0) Ur Specific [place] 1.026 (1.001-1.035) Urine Protein Trace H (Negative) Urine Glucose (UA) Negative (Negative) Urine Ketones Negative (Negative) Urine Blood Small H (Negative) Urine Nitrite Negative (Negative) Urine Bilirubin Negative (Negative) Urine Urobilinogen 2.0 (<2.0) mg/dL Ur Leukocyte Esterase Negative (Negative) Urine RBC 2 (0-5) /hpf Urine WBC 1 (0-5) /hpf Ur Squamous Epith Cells 6 H (0-4) /hpf Urine Mucus Occasional H (None) /hpf Stool Occult Blood (Negative) 06/03/20 Range/Units 00:44 WBC (3.8-10.6) k/uL RBC (3.80-5.40) m/uL Hgb (11.4-16.0) gm/dL Hct (34.0-46.0) % MCV (80.0-100.0) fL MCH (25.0-35.0) pg MCHC (31.0-37.0) g/dL RDW (11.5-15.5) % Plt Count (150-450) k/uL MPV Neutrophils % % Lymphocytes % % Monocytes % % Eosinophils % % Basophils % % Neutrophils # (1.3-7.7) k/uL Lymphocytes # (1.0-4.8) k/uL Monocytes # (0-1.0) k/uL Eosinophils # (0-0.7) k/uL Basophils # (0-0.2) k/uL Sodium (137-145) mmol/L Potassium (3.5-5.1) mmol/L Chloride (98-107) mmol/L Carbon Dioxide (22-30) mmol/L Anion Gap mmol/L BUN (7-17) mg/dL Creatinine (0.52-1.04) mg/dL Est GFR (CKD-EPI)AfAm (>60 ml/min/1.73 sqM) Est GFR (CKD-EPI)NonAf (>60 ml/min/1.73 sqM) Glucose (74-99) mg/dL Calcium (8.4-10.2) mg/dL Total Bilirubin (0.2-1.3) mg/dL AST (14-36) U/L ALT (4-34) U/L Alkaline Phosphatase (38-126) U/L Total Protein (6.3-8.2) g/dL Albumin (3.5-5.0) g/dL Urine Color Urine Appearance (Clear) Urine pH (5.0-8.0) Ur Specific [place] (1.001-1.035) Urine Protein (Negative) Urine Glucose (UA) (Negative) Urine Ketones (Negative) Urine Blood (Negative) Urine Nitrite (Negative) Urine Bilirubin (Negative) Urine Urobilinogen (<2.0) mg/dL Ur Leukocyte Esterase (Negative) Urine RBC (0-5) /hpf Urine WBC (0-5) /hpf Ur Squamous Epith Cells (0-4) /hpf Urine Mucus (None) /hpf Stool Occult Blood Negative (Negative) Disposition Clinical Impression: Abdominal pain Disposition: HOME SELF-CARE Condition: Stable Instructions (If sedation given, give patient instructions): Abdominal Pain (ED) Additional Instructions: Follow-up with . Return to emergency department if symptoms worsen. Is patient prescribed a controlled substance at d/c from ED?: No Referrals: Any Garcia MD [STAFF PHYSICIAN] - 1-2 days Kaleb Huston DO [Primary Care Provider] - 1-2 days Time of Disposition: 01:24
[2020-06-03] MEDS ORDERED: HYDROmorphone 1 MG/ML 1 ML SYRINGE IM STA (00:39)
[2020-06-03 00:56] LABS: Appearance,Urine Cloudy (Clear); Bilirubin,Urine Negative (Negative); Blood,Urine Small (Negative); Color,Urine Yellow; Glucose,Urine (UA) Negative (Negative); Ketones,Urine Negative (Negative); Leukocyte Esterase,Urine Negative (Negative); Mucus,Urine Occasional /hpf; Nitrite,Urine Negative (Negative); Protein,Urine Trace (Negative); RBC,Urine 2 /hpf (0-5); Specific Gravity,Urine 1.026 (1.001-1.035); Squamous Epithelial Cell,Urine 6 /hpf (0-4); WBC,Urine 1 /hpf (0-5)
[2020-06-03] MEDS ORDERED: HYDROmorphone 1 MG/ML 1 ML SYRINGE IVP STA (00:57)
[2020-06-03 01:06] LABS: ALT 14 U/L (4-34); AST 21 U/L (14-36); African American GFR (CKD) >90 (>60 ml/min/1.73 sqM); Albumin 4.4 g/dL (3.5-5.0); Alkaline Phosphatase 90 U/L (38-126); Anion Gap 6 mmol/L; Blood Urea Nitrogen 23 mg/dL (7-17); Calcium 9.6 mg/dL (8.4-10.2); Carbon Dioxide 26 mmol/L (22-30); Chloride 106 mmol/L (98-107); Glucose 132 mg/dL (74-99); Non-African American GFR(CKD) 86 (>60 ml/min/1.73 sqM); Potassium 4.8 mmol/L (3.5-5.1); Sodium 138 mmol/L (137-145); Total Bilirubin 0.3 mg/dL (0.2-1.3); Total Protein 7.5 g/dL (6.3-8.2)
[2020-06-03 01:07] LABS: Basophils # (A) 0.1 k/uL (0-0.2); Basophils % (A) 1 %; Eosinophils # (A) 0.2 k/uL (0-0.7); Eosinophils % (A) 2 %; HCT 46.7 % (34.0-46.0); HGB 14.3 gm/dL (11.4-16.0); Lymphocytes # (A) 4.1 k/uL (1.0-4.8); Lymphocytes % (A) 38 %; MCH 26.2 pg (25.0-35.0); MCHC 30.7 g/dL (31.0-37.0); MCV 85.4 fL (80.0-100.0); Monocytes # (A) 0.6 k/uL (0-1.0); Monocytes % (A) 6 %; Neutrophils # (A) 5.7 k/uL (1.3-7.7); Neutrophils % (A) 52 %; Platelet Count 396 k/uL (150-450); RBC 5.47 m/uL (3.80-5.40); RDW 13.3 % (11.5-15.5); WBC 10.8 k/uL (3.8-10.6)
[2020-06-03 02:06] VITALS: BP 161/118; PULSE 92; RESP 16; TEMP 98.9
== END 2020-06-03 02:08 | disposition home or self-care (01) ==
LOC: EC 00:10
DX: R10.31 Right lower quadrant pain (principal); K64.4 Residual hemorrhoidal skin tags; R19.7 Diarrhea, unspecified; F41.9 Anxiety disorder, unspecified; F31.9 Bipolar disorder, unspecified; F90.9 Attention-deficit hyperactivity disorder, unspecified type; F17.200 Nicotine dependence, unspecified, uncomplicated; J44.9 Chronic obstructive pulmonary disease, unspecified; I50.9 Heart failure, unspecified; I11.0 Hypertensive heart disease with heart failure; G40.909 Epilepsy, unspecified, not intractable, without status epilepticus; Z79.51 Long term (current) use of inhaled steroids; Z79.899 Other long term (current) drug therapy; Z88.1 Allergy status to other antibiotic agents; Z88.2 Allergy status to sulfonamides; Z88.6 Allergy status to analgesic agent; Z88.8 Allergy status to other drugs, medicaments and biological substances; Z91.041 Radiographic dye allergy status; Z91.013 Allergy to seafood; Z90.710 Acquired absence of both cervix and uterus; Z86.69 Personal history of other diseases of the nervous system and sense organs; Z86.14 Personal history of Methicillin resistant Staphylococcus aureus infection; Z90.49 Acquired absence of other specified parts of digestive tract; Z87.19 Personal history of other diseases of the digestive system
CPT/HCPCS: 36415; 80053; 85025; 82272; 81001; 99284; 96374; J1170

== ENCOUNTER 2020-06-29 23:23 | Emergency (ER) | payer MEDICARE ==
[2020-06-30 00:16] LABS: ALT 12 U/L (4-34); AST 15 U/L (14-36); African American GFR (CKD) >90 (>60 ml/min/1.73 sqM); Albumin 4.1 g/dL (3.5-5.0); Alkaline Phosphatase 78 U/L (38-126); Anion Gap 6 mmol/L; Blood Urea Nitrogen 11 mg/dL (7-17); Calcium 9.6 mg/dL (8.4-10.2); Carbon Dioxide 33 mmol/L (22-30); Chloride 102 mmol/L (98-107); Glucose 121 mg/dL (74-99); Lipase 83 U/L (23-300); Non-African American GFR(CKD) >90 (>60 ml/min/1.73 sqM); Sodium 141 mmol/L (137-145); Total Bilirubin 0.3 mg/dL (0.2-1.3)
[2020-06-30 00:18] LABS: Basophils % (A) 0 %; Eosinophils # (A) 0.2 k/uL (0-0.7); Eosinophils % (A) 2 %; HCT 43.4 % (34.0-46.0); HGB 13.4 gm/dL (11.4-16.0); Lymphocytes # (A) 3.5 k/uL (1.0-4.8); Lymphocytes % (A) 39 %; MCH 25.9 pg (25.0-35.0); MCV 83.5 fL (80.0-100.0); Mean Platelet Volume 6.5; Monocytes # (A) 0.4 k/uL (0-1.0); Monocytes % (A) 5 %; Neutrophils # (A) 4.7 k/uL (1.3-7.7); Neutrophils % (A) 52 %; Platelet Count 330 k/uL (150-450); RBC 5.19 m/uL (3.80-5.40); RDW 13.2 % (11.5-15.5)
[2020-06-30] MEDS ORDERED: ONDANSETRON 4 MG/2 ML VIAL IVP STA (00:26)
[2020-06-30] MEDS ORDERED: MORPHINE SULFATE 4 MG/ML SYRINGE IV STA (00:26)
[2020-06-30 00:47] LABS: Appearance,Urine Clear (Clear); Bilirubin,Urine Negative (Negative); Blood,Urine Small (Negative); Color,Urine Yellow; Glucose,Urine (UA) Negative (Negative); Ketones,Urine Negative (Negative); Leukocyte Esterase,Urine Trace (Negative); Mucus,Urine Few /hpf; Nitrite,Urine Negative (Negative); Protein,Urine Trace (Negative); RBC,Urine 7 /hpf (0-5); Specific Gravity,Urine 1.021 (1.001-1.035); Squamous Epithelial Cell,Urine 2 /hpf (0-4); Urobilinogen,Urine <2.0 mg/dL (<2.0); WBC,Urine 4 /hpf (0-5)
--- NOTE | 2020-06-30 01:14 | XR ---
EXAM: XR Abdomen, 2 Views CLINICAL HISTORY: ITS.REASON XR Reason: abd pain TECHNIQUE: Frontal view of the abdomen/pelvis with upright view of the abdomen. COMPARISON: 03/21/2013 FINDINGS: Intraperitoneal space: No intraperitoneal free air. Gastrointestinal tract: Nondestructive bowel gas pattern with air seen throughout the transverse and descending colon. Mild fecal burden throughout the colon. No dilation. Bones/joints: Unremarkable. Cholecystectomy clips in the right upper quadrant. IMPRESSION: Nonobstructive bowel gas pattern.
[2020-06-30 01:35] VITALS: RESP 16
[2020-06-30] MEDS ORDERED: diphenhydrAMINE 50 MG/ML 1 ML VIAL IVP STA (01:47)
[2020-06-30] MEDS ORDERED: FAMOTIDINE 20 MG/2 ML VIAL IV STA (01:47)
[2020-06-30] MEDS ORDERED: methylPREDNISolone SOD SUCCI 125 MG/2 ML VIAL IV STA (01:47)
[2020-06-30] MEDS ORDERED: HYDROmorphone 0.5 MG/0.5 ML SYRINGE IVP STA (01:47)
[2020-06-30] MEDS ORDERED: SODIUM CHLORIDE 0.9% 500 ML 500 ML IV ONE (02:11)
--- NOTE | 2020-06-30 02:55 | ED ---
General Adult HPI - General Source: patient, RN notes reviewed, old records reviewed Mode of arrival: ambulatory Limitations: no limitations <Rikki Red - Last Filed: 06/30/20 02:54> <Valdez Olivares - Last Filed: 06/30/20 03:40> - General Chief complaint: Abdominal Pain Stated complaint: Abd Pain Time Seen by Provider: 06/29/20 23:45 - History of Present Illness Initial comments: 45-year-old female patient ED for chief complaint of abdominal pain for the last 2 days patient describes as upper abdominal as well as her upper quadrant abdominal. Also reports some periumbilical discomfort. Patient has been having nausea and dry heaving. Also some diarrhea. Denies any other complaints. Systemic: Pt denies fatigue, fever/chills, rash. Pt denies weakness, night sweats, weight loss. Neuro: Pt denies headache, visual disturbances, syncope or pre-syncope. HEENT: Pt denies ocular discharge or irritation, otalgia, rhinorrhea, pharyngitis or notable lymphadenopathy. Cardiopulmonary: Pt denies chest pain, SOB, heart palpitations, dyspnea on exertion. : Pt denies dysuria, burning w/ urination, frequency/urgency. Denies new onset urinary or bowel incontinence. MSK: Pt denies myalgia, loss of strength or function in extremities. Neuro: Pt denies new onset weakness, paresthesias. (Rikki Red) - Related Data Home Medications Medication Instructions Recorded Confirmed Ipratropium/Albuterol Sulfate 2 puff INHALATION RT-BID 07/26/15 05/28/20 [Combivent Respimat Inhaler] Spironolactone [Aldactone] 25 mg PO DAILY 02/05/17 05/28/20 QUEtiapine [SEROquel] 100 mg PO HS 02/25/19 05/28/20 diphenhydrAMINE [Benadryl] 50 mg PO TID 02/25/19 05/28/20 Citalopram Hydrobromide [CeleXA] 20 mg PO DAILY 05/17/19 05/28/20 Fluticasone Nasal [place] [Flonase 1 spray EA NOSTRIL HS PRN 05/17/19 05/28/20 Nasal [place]] Ergocalciferol [Vitamin D2 50,000 unit PO WE 06/02/19 05/28/20 (DRISDOL)] Citalopram Hydrobromide [CeleXA] 40 mg PO DAILY 06/12/19 05/28/20 Albuterol Sulfate [Proair Hfa] 1 - 2 puff INHALATION RT-QID PRN 01/01/20 05/28/20 oxyCODONE-APAP 7.5-325MG [Percocet 1 tab PO TID PRN 01/01/20 05/28/20 7.5-325 mg] Carvedilol [Coreg] 25 mg PO BID 05/28/20 05/28/20 Dicyclomine [Bentyl] 10 mg PO QID PRN 05/28/20 05/28/20 Allergies Allergy/AdvReac Type Severity Reaction Status Date / Time adhesive Allergy Rash/Hives Verified 06/29/20 23:28 amoxicillin Allergy Anaphylaxis Verified 06/29/20 23:28 azithromycin [From Zithromax] Allergy Anaphylaxis Verified 06/29/20 23:28 cephalexin monohydrate Allergy Anaphylaxis Verified 06/29/20 23:28 [From Keflex] ciprofloxacin Allergy Anaphylaxis Verified 06/29/20 23:28 clindamycin Allergy Anaphylaxis Verified 06/29/20 23:28 Iodinated Contrast Media Allergy Swelling Verified 06/29/20 23:28 [Iodinated Contrast- Oral and IV Dye] levofloxacin [From Levaquin] Allergy Rash/Hives Verified 06/29/20 23:28 naproxen Allergy Anaphylaxis Verified 06/29/20 23:28 NSAIDS (Non-Steroidal Allergy Rash/Hives Verified 06/29/20 23:28 Anti-Inflamma shellfish derived Allergy Anaphylaxis Verified 06/29/20 23:28 Sulfa (Sulfonamide Allergy Anaphylaxis Verified 06/29/20 23:28 Antibiotics) sulfamethoxazole Allergy Anaphylaxis Verified 06/29/20 23:28 [From Bactrim] tramadol Allergy Unknown Verified 06/29/20 23:28 trimethoprim [From Bactrim] Allergy Anaphylaxis Verified 06/29/20 23:28 Review of Systems ROS Other: All systems not noted in ROS Statement are negative. <Rikki Red - Last Filed: 06/30/20 02:54> ROS Other: All systems not noted in ROS Statement are negative. <Valdez Olivares - Last Filed: 06/30/20 03:40> ROS Statement: Those systems with pertinent positive or pertinent negative responses have been documented in the HPI. 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 IBS, cellulitis of the chin, History of Any Multi-Drug Resistant Organisms: MRSA Date of last positivie culture/infection: 07/2016 MDRO Source:: chin Past Surgical History: Section, Cholecystectomy, Hysterectomy, Tubal Ligation Additional Past Surgical History / Comment(s): oral surgery . Pancreas biopsy May 2015. Past Anesthesia/Blood Transfusion Reactions: No Reported Reaction Past Psychological History: ADD/ADHD, Anxiety, Bipolar, Depression Smoking Status: Current every day smoker Past Alcohol Use History: None Reported Past Drug Use History: Marijuana - Past Family History Father Family Medical History: No Reported History Additional Family Medical History / Comment(s): ADOPTED <Rikki Red - Last Filed: 06/30/20 02:54> General Exam Limitations: no limitations <Rikki Red - Last Filed: 06/30/20 02:54> - General Exam Comments Initial Comments: Constitutional: NAD, AOX3, Pt has pleasant affect. HEENT: NC/AT, trachea midline, neck supple, no lymphadenopathy. External ears appear normal, without discharge. Mucous membranes moist. Eyes PERRLA, EOM intact. There is no scleral icterus. No pallor noted. Cardiopulmonary: RRR, no murmurs, rubs or gallops, no JVD noted. Lungs CTAB in anterior and posterior daniel. No peripheral edema. Abdominal exam: Abdomen soft and non-distended. Abdomen mildly tender to palpation epigastric periumbilical or upper quadrant region. Bowel sounds active in LLQ. No hepatosplenomegaly. No ecchymosis Neuro: CN II-XII grossly intact. No nuchal rigidity. No raccon eyes, no cuello sign, no hemotympanum. No cervical spinal tenderness. MSK: Full active ROM in upper and lower extremities, 5/5 stregnth. (Rikki Red) Course Vital Signs 06/29/20 06/30/20 06/30/20 23:24 00:55 01:55 Temperature 98.5 F 98.9 F 98.8 F Pulse Rate 91 84 78 Respiratory 18 16 16 Rate Blood Pressure 185/112 114/80 121/87 O2 Sat by Pulse 97 95 96 Oximetry 06/30/20 02:50 Temperature 98.4 F Pulse Rate 86 Respiratory 16 Rate Blood Pressure 138/82 O2 Sat by Pulse 96 Oximetry Medical Decision Making - Lab Data Result diagrams: 06/29/20 23:52 06/29/20 23:52 <Rikki Red - Last Filed: 06/30/20 02:54> - Lab Data Result diagrams: 06/29/20 23:52 06/29/20 23:52 - Radiology Data Radiology results: report reviewed (CT head and pelvis negative for acute disease), image reviewed <Valdez Olivares - Last Filed: 06/30/20 03:40> - Medical Decision Making 45-year-old female patient ED for evaluation of abdominal pain last 48 hours. Vital signs are stable, afebrile. Physical exam displayed mild tenderness abdominal region. Laboratory investigations are obtained and unremarkable. KUB x-ray displayed affect of bowel gas pattern. It was evaluated based on discomfort. She reports that this is a new pain that she has not previously experienced, discussed advanced imaging patient. Patient has had multiple prior abdominal pelvis CTs we did discuss the risk of radiation. Patient wishes to have advanced imaging obtained. Case signed out to Dr. Olivares pending CT. (Rikki Red) 45 female DF for evaluation patient with acute on chronic pain. Abdominal pain. CT of the pelvis negative she will be discharged (Valdez Olivares) - Lab Data Lab Results 06/29/20 06/29/20 06/29/20 Range/Units 23:52 23:52 23:52 WBC 9.0 (3.8-10.6) k/uL RBC 5.19 (3.80-5.40) m/uL Hgb 13.4 (11.4-16.0) gm/dL Hct 43.4 (34.0-46.0) % MCV 83.5 (80.0-100.0) fL MCH 25.9 (25.0-35.0) pg MCHC 31.0 (31.0-37.0) g/dL RDW 13.2 (11.5-15.5) % Plt Count 330 (150-450) k/uL MPV 6.5 Neutrophils % 52 % Lymphocytes % 39 % Monocytes % 5 % Eosinophils % 2 % Basophils % 0 % Neutrophils # 4.7 (1.3-7.7) k/uL Lymphocytes # 3.5 (1.0-4.8) k/uL Monocytes # 0.4 (0-1.0) k/uL Eosinophils # 0.2 (0-0.7) k/uL Basophils # 0.0 (0-0.2) k/uL Sodium 141 (137-145) mmol/L Potassium 4.0 (3.5-5.1) mmol/L Chloride 102 (98-107) mmol/L Carbon Dioxide 33 H (22-30) mmol/L Anion Gap 6 mmol/L BUN 11 (7-17) mg/dL Creatinine 0.77 (0.52-1.04) mg/dL Est GFR (CKD-EPI)AfAm >90 (>60 ml/min/1.73 sqM) Est GFR (CKD-EPI)NonAf >90 (>60 ml/min/1.73 sqM) Glucose 121 H (74-99) mg/dL Plasma Lactic Acid Srinivas 1.4 (0.7-2.0) mmol/L Calcium 9.6 (8.4-10.2) mg/dL Total Bilirubin 0.3 (0.2-1.3) mg/dL AST 15 (14-36) U/L ALT 12 (4-34) U/L Alkaline Phosphatase 78 (38-126) U/L Total Protein 7.0 (6.3-8.2) g/dL Albumin 4.1 (3.5-5.0) g/dL Lipase 83 (23-300) U/L Urine Color Urine Appearance (Clear) Urine pH (5.0-8.0) Ur Specific [place] (1.001-1.035) Urine Protein (Negative) Urine Glucose (UA) (Negative) Urine Ketones (Negative) Urine Blood (Negative) Urine Nitrite (Negative) Urine Bilirubin (Negative) Urine Urobilinogen (<2.0) mg/dL Ur Leukocyte Esterase (Negative) Urine RBC (0-5) /hpf Urine WBC (0-5) /hpf Ur Squamous Epith Cells (0-4) /hpf Urine Mucus (None) /hpf Urine HCG, Qual (Not Detectd) 06/30/20 06/30/20 Range/Units 00:20 00:20 WBC (3.8-10.6) k/uL RBC (3.80-5.40) m/uL Hgb (11.4-16.0) gm/dL Hct (34.0-46.0) % MCV (80.0-100.0) fL MCH (25.0-35.0) pg MCHC (31.0-37.0) g/dL RDW (11.5-15.5) % Plt Count (150-450) k/uL MPV Neutrophils % % Lymphocytes % % Monocytes % % Eosinophils % % Basophils % % Neutrophils # (1.3-7.7) k/uL Lymphocytes # (1.0-4.8) k/uL Monocytes # (0-1.0) k/uL Eosinophils # (0-0.7) k/uL Basophils # (0-0.2) k/uL Sodium (137-145) mmol/L Potassium (3.5-5.1) mmol/L Chloride (98-107) mmol/L Carbon Dioxide (22-30) mmol/L Anion Gap mmol/L BUN (7-17) mg/dL Creatinine (0.52-1.04) mg/dL Est GFR (CKD-EPI)AfAm (>60 ml/min/1.73 sqM) Est GFR (CKD-EPI)NonAf (>60 ml/min/1.73 sqM) Glucose (74-99) mg/dL Plasma Lactic Acid Srinivas (0.7-2.0) mmol/L Calcium (8.4-10.2) mg/dL Total Bilirubin (0.2-1.3) mg/dL AST (14-36) U/L ALT (4-34) U/L Alkaline Phosphatase (38-126) U/L Total Protein (6.3-8.2) g/dL Albumin (3.5-5.0) g/dL Lipase (23-300) U/L Urine Color Yellow Urine Appearance Clear (Clear) Urine pH 7.0 (5.0-8.0) Ur Specific [place] 1.021 (1.001-1.035) Urine Protein Trace H (Negative) Urine Glucose (UA) Negative (Negative) Urine Ketones Negative (Negative) Urine Blood Small H (Negative) Urine Nitrite Negative (Negative) Urine Bilirubin Negative (Negative) Urine Urobilinogen <2.0 (<2.0) mg/dL Ur Leukocyte Esterase Trace H (Negative) Urine RBC 7 H (0-5) /hpf Urine WBC 4 (0-5) /hpf Ur Squamous Epith Cells 2 (0-4) /hpf Urine Mucus Few H (None) /hpf Urine HCG, Qual Not Detected (Not Detectd) Disposition <Rikki Red - Last Filed: 06/30/20 02:54> Is patient prescribed a controlled substance at d/c from ED?: No <Valdez Olivares - Last Filed: 06/30/20 03:40> Clinical Impression: Abdominal pain, Chronic back pain Disposition: HOME SELF-CARE Condition: Good Instructions (If sedation given, give patient instructions): Abdominal Pain (ED) Referrals: Kaleb Huston DO [Primary Care Provider] - 1-2 days
--- NOTE | 2020-06-30 03:13 | CT ---
EXAM: CT Abdomen and Pelvis With Intravenous Contrast CLINICAL HISTORY: ITS.REASON CT Reason: abd pain TECHNIQUE: Axial computed tomography images of the abdomen and pelvis with intravenous contrast. CTDI is 37.87 mGy and DLP is 1661.20 mGy-cm. This CT exam was performed using one or more of the following dose reduction techniques: automated exposure control, adjustment of the mA and/or kV according to patient size, and/or use of iterative reconstruction technique. COMPARISON: 05/28/2020 FINDINGS: Lung bases: Unremarkable. No mass. No consolidation. ABDOMEN: Liver: Unremarkable. No mass. Gallbladder and bile ducts: Surgically absent. No ductal dilation. Pancreas: Unremarkable. No mass. No ductal dilation. Spleen: Unremarkable. No splenomegaly. Adrenals: Unremarkable. No mass. Kidneys and ureters: Unremarkable. No solid mass. No hydronephrosis. Stomach and bowel: Unremarkable. No obstruction. No mucosal thickening. Mild fecal burden throughout the colon. PELVIS: Appendix: No findings to suggest acute appendicitis. Appendix is decompressed nad normal in caliber. Bladder: Unremarkable. No mass. Reproductive: Uterus is absent. ABDOMEN and PELVIS: Intraperitoneal space: Unremarkable. No free air. No significant fluid collection. Bones/joints: No acute fracture. No dislocation. Soft tissues: Injection granulomas in the bilateral flanks. Vasculature: Unremarkable. No abdominal aortic aneurysm. Lymph nodes: Unremarkable. No enlarged lymph nodes. IMPRESSION: No acute intra-abdominal process.
[2020-06-30] MEDS ORDERED: ACET/COD 300 MG/30 MG STARTER PACK 6 TAB BTL PO STA (04:20)
[2020-06-30 04:31] VITALS: BP 148/89; PULSE 72; TEMP 98
== END 2020-06-30 04:25 | disposition home or self-care (01) ==
LOC: EC 23:23
DX: G89.29 Other chronic pain (principal); R10.10 Upper abdominal pain, unspecified; M54.9 Dorsalgia, unspecified; I11.0 Hypertensive heart disease with heart failure; I50.9 Heart failure, unspecified; J44.9 Chronic obstructive pulmonary disease, unspecified; K58.9 Irritable bowel syndrome, unspecified; F32.9 Major depressive disorder, single episode, unspecified; F41.9 Anxiety disorder, unspecified; F17.200 Nicotine dependence, unspecified, uncomplicated; Z79.899 Other long term (current) drug therapy; Z91.048 Other nonmedicinal substance allergy status; Z88.0 Allergy status to penicillin; Z88.1 Allergy status to other antibiotic agents; Z91.041 Radiographic dye allergy status; Z88.6 Allergy status to analgesic agent; Z91.013 Allergy to seafood; Z88.2 Allergy status to sulfonamides; Z88.5 Allergy status to narcotic agent; Z87.442 Personal history of urinary calculi; Z86.73 Personal history of transient ischemic attack (TIA), and cerebral infarction without residual deficits; Z90.710 Acquired absence of both cervix and uterus; Z90.49 Acquired absence of other specified parts of digestive tract; Z98.51 Tubal ligation status
CPT/HCPCS: 36415; 80053; 83605; 83690; 85025; 81001; 81025; 74018; 74177; 99285; 96374; 96375 ×5; 96361; J2270; J1200; J2930; J2405; J1170; Q9967

== ENCOUNTER 2020-08-13 19:54 | Inpatient (IN) | payer MEDICARE ==
[2020-08-13] MEDS ORDERED: NALOXONE 0.4 MG/ML 1 ML VIAL IVP STA (20:21)
[2020-08-13 20:47] LABS: Basophils # (A) 0.1 k/uL (0-0.2); Basophils % (A) 1 %; Eosinophils # (A) 0.4 k/uL (0-0.7); Eosinophils % (A) 4 %; HCT 42.7 % (34.0-46.0); HGB 13.6 gm/dL (11.4-16.0); Hypochromasia Slight; Lymphocytes % (A) 34 %; MCH 27.5 pg (25.0-35.0); MCHC 31.8 g/dL (31.0-37.0); MCV 86.4 fL (80.0-100.0); Mean Platelet Volume 6.5; Monocytes # (A) 0.6 k/uL (0-1.0); Monocytes % (A) 7 %; Neutrophils # (A) 4.6 k/uL (1.3-7.7); Neutrophils % (A) 53 %; Platelet Count 277 k/uL (150-450); RBC 4.95 m/uL (3.80-5.40); RDW 13.3 % (11.5-15.5); VBG PH 7.26 (7.31-7.41); WBC 8.9 k/uL (3.8-10.6)
[2020-08-13 20:52] LABS: Glucose,Whole Blood 119 mg/dL (75-99)
[2020-08-13 21:00] LABS: ALT 40 U/L (4-34); AST 27 U/L (14-36); Acetaminophen <10.0 ug/mL; African American GFR (CKD) 68 (>60 ml/min/1.73 sqM); Albumin 4.5 g/dL (3.5-5.0); Alcohol <10 mg/dL; Alkaline Phosphatase 82 U/L (38-126); Anion Gap 7 mmol/L; Blood Urea Nitrogen 14 mg/dL (7-17); Carbon Dioxide 40 mmol/L (22-30); Chloride 93 mmol/L (98-107); Glucose 130 mg/dL (74-99); Non-African American GFR(CKD) 59 (>60 ml/min/1.73 sqM); Potassium 4.6 mmol/L (3.5-5.1); Salicylate <1.0 mg/dL; Sodium 140 mmol/L (137-145); Total Bilirubin 0.3 mg/dL (0.2-1.3); Total Protein 7.7 g/dL (6.3-8.2)
--- NOTE | 2020-08-13 21:01 | XR ---
EXAMINATION TYPE: XR chest 2V DATE OF EXAM: 08/13/2020 COMPARISON: 01/01/2020 HISTORY: Dizziness TECHNIQUE: 2 views FINDINGS: Heart and mediastinum are normal. Lungs are clear of consolidation. There is some mild line ar density at the right posterior lung base. There is no pleural effusion. There are chest leads. The re are no hilar masses. IMPRESSION: Mild subsegmental atelectasis right posterior lung bases appears new compared to old exam . Normal heart.
[2020-08-13 21:13] LABS: INR 0.9 (<1.2); Partial Thromboplastin Time 24.3 sec (22.0-30.0); Prothrombin Time 10.2 sec (9.0-12.0)
[2020-08-13 22:11] LABS: Allen Test Performed? Yes
--- NOTE | 2020-08-13 22:18 | ED ---
General Adult HPI - General Chief complaint: Altered Mental Status Stated complaint: AMS Time Seen by Provider: 08/13/20 20:05 Source: patient Mode of arrival: wheelchair Limitations: altered mental status - History of Present Illness Initial comments: Patient is a 45-year-old female with multiple medical conditions to include asthma, COPD, obstructive sleep apnea who presents to the emergency department reporting that she "feels altered". Patient presents to the triage [place] and is minimally responsive. She repetitively kept falling asleep during questioning. She had audible inspiratory wheeze. Pulse ox was found to be 77% on room air. Patient denied taking any excess prescribed medications. Denied taking any illicit substances. Normally wears oxygen but only at night. Reports that she has felt more short of breath. Denies any fevers or chills. No recent head trauma. The remainder of the HPI is limited because of her altered mental status - Related Data Home Medications Medication Instructions Recorded Confirmed Ipratropium/Albuterol Sulfate 2 puff INHALATION RT-BID 07/26/15 08/13/20 [Combivent Respimat Inhaler] Spironolactone [Aldactone] 25 mg PO DAILY 02/05/17 08/13/20 QUEtiapine [SEROquel] 100 mg PO HS 02/25/19 08/13/20 Citalopram Hydrobromide [CeleXA] 40 mg PO DAILY 06/12/19 08/13/20 Albuterol Sulfate [Proair Hfa] 1 - 2 puff INHALATION RT-QID PRN 01/01/20 08/13/20 oxyCODONE-APAP 7.5-325MG [Percocet 1 tab PO TID PRN 01/01/20 08/13/20 7.5-325 mg] Carvedilol [Coreg] 25 mg PO BID 05/28/20 08/13/20 Dicyclomine [Bentyl] 10 mg PO QID PRN 05/28/20 08/13/20 Allergies Allergy/AdvReac Type Severity Reaction Status Date / Time adhesive Allergy Rash/Hives Verified 08/13/20 20:02 amoxicillin Allergy Anaphylaxis Verified 08/13/20 20:02 azithromycin [From Zithromax] Allergy Anaphylaxis Verified 08/13/20 20:02 cephalexin monohydrate Allergy Anaphylaxis Verified 08/13/20 20:02 [From Keflex] ciprofloxacin Allergy Anaphylaxis Verified 08/13/20 20:02 clindamycin Allergy Anaphylaxis Verified 08/13/20 20:02 Iodinated Contrast Media Allergy Swelling Verified 08/13/20 20:02 [Iodinated Contrast- Oral and IV Dye] levofloxacin [From Levaquin] Allergy Rash/Hives Verified 08/13/20 20:02 naproxen Allergy Anaphylaxis Verified 08/13/20 20:02 NSAIDS (Non-Steroidal Allergy Rash/Hives Verified 08/13/20 20:02 Anti-Inflamma shellfish derived Allergy Anaphylaxis Verified 08/13/20 20:02 Sulfa (Sulfonamide Allergy Anaphylaxis Verified 08/13/20 20:02 Antibiotics) sulfamethoxazole Allergy Anaphylaxis Verified 08/13/20 20:02 [From Bactrim] tramadol Allergy Unknown Verified 08/13/20 20:02 trimethoprim [From Bactrim] Allergy Anaphylaxis Verified 08/13/20 20:02 Review of Systems ROS Statement: Those systems with pertinent positive or pertinent negative responses have been documented in the HPI. ROS Other: All systems not noted in ROS Statement are negative. 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 IBS, cellulitis of the chin, History of Any Multi-Drug Resistant Organisms: MRSA Date of last positivie culture/infection: 07/2016 MDRO Source:: chin Past Surgical History: Section, Cholecystectomy, Hysterectomy, Tubal Li gation Additional Past Surgical History / Comment(s): oral surgery . Pancreas biopsy May 2015. Past Anesthesia/Blood Transfusion Reactions: No Reported Reaction Past Psychological History: ADD/ADHD, Anxiety, Bipolar, Depression Smoking Status: Current every day smoker Past Alcohol Use History: None Reported Past Drug Use History: Marijuana - Past Family History Father Family Medical History: No Reported History Additional Family Medical History / Comment(s): ADOPTED General Exam Limitations: altered mental status General appearance: lethargic, obese Head exam: Present: atraumatic, normocephalic, normal inspection Eye exam: Present: other (3 mm, sluggish to light response) ENT exam: Present: mucous membranes dry Neck exam: Present: normal inspection. Absent: tenderness, meningismus, lymphadenopathy Respiratory exam: Present: wheezes, decreased breath sounds, other (slow, shallow respirations with occasional periods of apnea). Absent: respiratory distress, accessory muscle use Cardiovascular Exam: Present: regular rate, normal rhythm, normal heart sounds. Absent: systolic murmur, diastolic murmur, rubs, gallop, clicks GI/Abdominal exam: Present: soft, normal bowel sounds. Absent: distended, tend erness, guarding, rebound, rigid Neurological exam: Present: altered Psychiatric exam: Present: flat affect Skin exam: Present: warm, intact, normal color, diaphoretic. Absent: rash Course Vital Signs 08/13/20 08/13/20 08/13/20 19:58 20:39 21:20 Temperature 98.2 F 97.7 F Pulse Rate 90 77 Respiratory 20 12 16 Rate Blood Pressure 132/86 133/77 O2 Sat by Pulse 77 L 98 Oximetry 08/13/20 08/13/20 08/13/20 22:51 22:56 23:34 Temperature Pulse Rate 81 78 Respiratory 14 16 Rate Blood Pressure 96/86 103/81 122/96 O2 Sat by Pulse 95 95 Oximetry EKG Findings - EKG Comments: EKG Findings:: EKG demonstrates normal sinus rhythm with a ventricular rate of 79. ID interval 154. QRS 80. QTC of 458. J-point elevation in all leads. Medical Decision Making - Medical Decision Making Upon arrival patient was placed into room 7. A thorough history and physical exam was performed. The patient does repetitively fall asleep during my examination. She is slurring her words. I review the patient's medical history. He does demonstrate that she takes Percocet at home. Patient was given a dose of Narcan due to her hypoxia and decreased repirations. Patient does have improvement in her mental status. She is able to answer questions appropriately without falling asleep during exam. Denies taking excess of her medications. No fevers or chills. No head trauma. Reports that she's been more short of breath. Denies any chest pain. No abdominal pain or changes in her bowel or bladder habits. Denies using any illicit substances. I did request laboratory studies for which the patient did agree to. Also went for chest x-ray. VBG demonstrates a CO2 of 91. Because of this I did request an ABG. Due to the high CO2 level I did recommend placing the patient on BiPAP for which she did agree to. I called and spoke with Dr. Pace who agreed to admit the patient. I will place Dr. Mcmillan on consult. Patient remained in stable condition awaiting a bed on the floor - Lab Data Result diagrams: 08/14/20 05:51 08/14/20 05:51 Lab Results 08/13/20 08/13/20 08/13/20 Range/Units 20:27 20:27 20:27 WBC 8.9 (3.8-10.6) k/uL RBC 4.95 (3.80-5.40) m/uL Hgb 13.6 (11.4-16.0) gm/dL Hct 42.7 (34.0-46.0) % MCV 86.4 (80.0-100.0) fL MCH 27.5 (25.0-35.0) pg MCHC 31.8 (31.0-37.0) g/dL RDW 13.3 (11.5-15.5) % Plt Count 277 (150-450) k/uL MPV 6.5 Neutrophils % 53 % Lymphocytes % 34 % Monocytes % 7 % Eosinophils % 4 % Basophils % 1 % Neutrophils # 4.6 (1.3-7.7) k/uL Lymphocytes # 3.0 (1.0-4.8) k/uL Monocytes # 0.6 (0-1.0) k/uL Eosinophils # 0.4 (0-0.7) k/uL Basophils # 0.1 (0-0.2) k/uL Hypochromasia Slight PT 10.2 (9.0-12.0) sec INR 0.9 (<1.2) APTT 24.3 (22.0-30.0) sec Sample Site ABG pH (7.35-7.45) ABG pCO2 (35-45) mmHg ABG pO2 (83-108) mmHg ABG HCO3 (21-25) mmol/L Jordan Test VBG pH (7.31-7.41) VBG pCO2 (37-51) mmHg VBG HCO3 (24-28) mmol/L FiO2 % Sodium (137-145) mmol/L Potassium (3.5-5.1) mmol/L Chloride (98-107) mmol/L Carbon Dioxide (22-30) mmol/L Anion Gap mmol/L BUN (7-17) mg/dL Creatinine (0.52-1.04) mg/dL Est GFR (CKD-EPI)AfAm (>60 ml/min/1.73 sqM) Est GFR (CKD-EPI)NonAf (>60 ml/min/1.73 sqM) Glucose (74-99) mg/dL POC Glucose (mg/dL) (75-99) mg/dL POC Glu [place] Operator ID Calcium (8.4-10.2) mg/dL Total Bilirubin (0.2-1.3) mg/dL AST (14-36) U/L ALT (4-34) U/L Alkaline Phosphatase (38-126) U/L Ammonia (<30) umol/L Troponin I (0.000-0.034) ng/mL Total Protein (6.3-8.2) g/dL Albumin (3.5-5.0) g/dL Urine Color Yellow Urine Appearance Clear (Clear) Urine pH 5.5 (5.0-8.0) Ur Specific [place] 1.030 (1.001-1.035) Urine Protein 2+ H (Negative) Urine Glucose (UA) Negative (Negative) Urine Ketones Negative (Negative) Urine Blood Large H (Negative) Urine Nitrite Negative (Negative) Urine Bilirubin Negative (Negative) Urine Urobilinogen 2.0 (<2.0) mg/dL Ur Leukocyte Esterase Negative (Negative) Urine RBC 17 H (0-5) /hpf Urine WBC 8 H (0-5) /hpf Ur Squamous Epith Cells 4 (0-4) /hpf Hyaline Casts 57 H (0-2) /lpf Urine Mucus Few H (None) /hpf Salicylates mg/dL Urine Opiates Screen Detected H (NotDetected) Ur Oxycodone Screen Detected H (NotDetected) Urine Methadone Screen Not Detected (NotDetected) Ur Propoxyphene Screen Not Detected (NotDetected) Acetaminophen ug/mL Ur Barbiturates Screen Not Detected (NotDetected) U Tricyclic Antidepress Not Detected (NotDetected) Ur Phencyclidine Scrn Not Detected (NotDetected) Ur Amphetamines Screen Not Detected (NotDetected) U Methamphetamines Scrn Not Detected (NotDetected) U Benzodiazepines Scrn Detected H (NotDetected) Urine Cocaine Screen Not Detected (NotDetected) U Marijuana (THC) Screen Detected H (NotDetected) Serum Alcohol mg/dL 08/13/20 08/13/20 08/13/20 Range/Units 20:27 20:27 20:27 WBC (3.8-10.6) k/uL RBC (3.80-5.40) m/uL Hgb (11.4-16.0) gm/dL Hct (34.0-46.0) % MCV (80.0-100.0) fL MCH (25.0-35.0) pg MCHC (31.0-37.0) g/dL RDW (11.5-15.5) % Plt Count (150-450) k/uL MPV Neutrophils % % Lymphocytes % % Monocytes % % Eosinophils % % Basophils % % Neutrophils # (1.3-7.7) k/uL Lymphocytes # (1.0-4.8) k/uL Monocytes # (0-1.0) k/uL Eosinophils # (0-0.7) k/uL Basophils # (0-0.2) k/uL Hypochromasia PT (9.0-12.0) sec INR (<1.2) APTT (22.0-30.0) sec Sample Site ABG pH (7.35-7.45) ABG pCO2 (35-45) mmHg ABG pO2 (83-108) mmHg ABG HCO3 (21-25) mmol/L Jordan Test VBG pH 7.26 L (7.31-7.41) VBG pCO2 91 H* (37-51) mmHg VBG HCO3 39 H (24-28) mmol/L FiO2 % Sodium (137-145) mmol/L Potassium (3.5-5.1) mmol/L Chloride (98-107) mmol/L Carbon Dioxide (22-30) mmol/L Anion Gap mmol/L BUN (7-17) mg/dL Creatinine (0.52-1.04) mg/dL Est GFR (CKD-EPI)AfAm (>60 ml/min/1.73 sqM) Est GFR (CKD-EPI)NonAf (>60 ml/min/1.73 sqM) Glucose (74-99) mg/dL POC Glucose (mg/dL) (75-99) mg/dL POC Glu [place] Operator ID Calcium (8.4-10.2) mg/dL Total Bilirubin (0.2-1.3) mg/dL AST (14-36) U/L ALT (4-34) U/L Alkaline Phosphatase (38-126) U/L Ammonia 34 H (<30) umol/L Troponin I <0.012 (0.000-0.034) ng/mL Total Protein (6.3-8.2) g/dL Albumin (3.5-5.0) g/dL Urine Color Urine Appearance (Clear) Urine pH (5.0-8.0) Ur Specific [place] (1.001-1.035) Urine Protein (Negative) Urine Glucose (UA) (Negative) Urine Ketones (Negative) Urine Blood (Negative) Urine Nitrite (Negative) Urine Bilirubin (Negative) Urine Urobilinogen (<2.0) mg/dL Ur Leukocyte Esterase (Negative) Urine RBC (0-5) /hpf Urine WBC (0-5) /hpf Ur Squamous Epith Cells (0-4) /hpf Hyaline Casts (0-2) /lpf Urine Mucus (None) /hpf Salicylates mg/dL Urine Opiates Screen (NotDetected) Ur Oxycodone Screen (NotDetected) Urine Methadone Screen (NotDetected) Ur Propoxyphene Screen (NotDetected) Acetaminophen ug/mL Ur Barbiturates Screen (NotDetected) U Tricyclic Antidepress (NotDetected) Ur Phencyclidine Scrn (NotDetected) Ur Amphetamines Screen (NotDetected) U Methamphetamines Scrn (NotDetected) U Benzodiazepines Scrn (NotDetected) Urine Cocaine Screen (NotDetected) U Marijuana (THC) Screen (NotDetected) Serum Alcohol mg/dL 08/13/20 08/13/20 08/13/20 Range/Units 20:43 20:50 22:07 WBC (3.8-10.6) k/uL RBC (3.80-5.40) m/uL Hgb (11.4-16.0) gm/dL Hct (34.0-46.0) % MCV (80.0-100.0) fL MCH (25.0-35.0) pg MCHC (31.0-37.0) g/dL RDW (11.5-15.5) % Plt Count (150-450) k/uL MPV Neutrophils % % Lymphocytes % % Monocytes % % Eosinophils % % Basophils % % Neutrophils # (1.3-7.7) k/uL Lymphocytes # (1.0-4.8) k/uL Monocytes # (0-1.0) k/uL Eosinophils # (0-0.7) k/uL Basophils # (0-0.2) k/uL Hypochromasia PT (9.0-12.0) sec INR (<1.2) APTT (22.0-30.0) sec Sample Site rrad ABG pH 7.28 L (7.35-7.45) ABG pCO2 87 H* (35-45) mmHg ABG pO2 76 L (83-108) mmHg ABG HCO3 41 H* (21-25) mmol/L Jordan Test Yes VBG pH (7.31-7.41) VBG pCO2 (37-51) mmHg VBG HCO3 (24-28) mmol/L FiO2 32 % Sodium 140 (137-145) mmol/L Potassium 4.6 (3.5-5.1) mmol/L Chloride 93 L (98-107) mmol/L Carbon Dioxide 40 H (22-30) mmol/L Anion Gap 7 mmol/L BUN 14 (7-17) mg/dL Creatinine 1.13 H (0.52-1.04) mg/dL Est GFR (CKD-EPI)AfAm 68 (>60 ml/min/1.73 sqM) Est GFR (CKD-EPI)NonAf 59 (>60 ml/min/1.73 sqM) Glucose 130 H (74-99) mg/dL POC Glucose (mg/dL) 119 H (75-99) mg/dL POC Glu [place] Operator ID Jess Fuentes Calcium 9.0 (8.4-10.2) mg/dL Total Bilirubin 0.3 (0.2-1.3) mg/dL AST 27 (14-36) U/L ALT 40 H (4-34) U/L Alkaline Phosphatase 82 (38-126) U/L Ammonia (<30) umol/L Troponin I (0.000-0.034) ng/mL Total Protein 7.7 (6.3-8.2) g/dL Albumin 4.5 (3.5-5.0) g/dL Urine Color Urine Appearance (Clear) Urine pH (5.0-8.0) Ur Specific [place] (1.001-1.035) Urine Protein (Negative) Urine Glucose (UA) (Negative) Urine Ketones (Negative) Urine Blood (Negative) Urine Nitrite (Negative) Urine Bilirubin (Negative) Urine Urobilinogen (<2.0) mg/dL Ur Leukocyte Esterase (Negative) Urine RBC (0-5) /hpf Urine WBC (0-5) /hpf Ur Squamous Epith Cells (0-4) /hpf Hyaline Casts (0-2) /lpf Urine Mucus (None) /hpf Salicylates <1.0 mg/dL Urine Opiates Screen (NotDetected) Ur Oxycodone Screen (NotDetected) Urine Methadone Screen (NotDetected) Ur Propoxyphene Screen (NotDetected) Acetaminophen <10.0 ug/mL Ur Barbiturates Screen (NotDetected) U Tricyclic Antidepress (NotDetected) Ur Phencyclidine Scrn (NotDetected) Ur Amphetamines Screen (NotDetected) U Methamphetamines Scrn (NotDetected) U Benzodiazepines Scrn (NotDetected) Urine Cocaine Screen (NotDetected) U Marijuana (THC) Screen (NotDetected) Serum Alcohol <10 mg/dL Critical Care Time Critical Care Time: Yes Critical Care Time: 32 minutes as patient demonstrated abnormal respirations requiring narcan administration and bipap. Disposition Clinical Impression: Acute exacerbation of COPD with asthma, Hypoxia, Altered mental status, Narcotic dependence, BiPAP (biphasic positive airway pressure) dependence Disposition: ADMITTED IP TO THIS HOSP Is patient prescribed a controlled substance at d/c from ED?: No Decision to Admit Reason: Admit from EC Decision Date: 08/13/20 Decision Time: 22:18
[2020-08-13 23:36] LABS: Appearance,Urine Clear (Clear); Bilirubin,Urine Negative (Negative); Blood,Urine Large (Negative); Color,Urine Yellow; Glucose,Urine (UA) Negative (Negative); Hyaline Casts,Urine 57 /lpf (0-2); Ketones,Urine Negative (Negative); Leukocyte Esterase,Urine Negative (Negative); Mucus,Urine Few /hpf; Nitrite,Urine Negative (Negative); PH, Urine 5.5 (5.0-8.0); Protein,Urine 2+ (Negative); RBC,Urine 17 /hpf (0-5); Squamous Epithelial Cell,Urine 4 /hpf (0-4); WBC,Urine 8 /hpf (0-5)
[2020-08-13 23:37] LABS: Amphetamine Screen,Urine Not Detected (NotDetected); Barbiturate Screen,Urine Not Detected (NotDetected); Benzodiazepines Screen,Urine Detected (NotDetected); Cocaine Screen,Urine Not Detected (NotDetected); Methadone Screen, Urine Not Detected (NotDetected); Opiate Screen,Urine Detected (NotDetected); Oxycodone Screen, Urine Detected (NotDetected); Phencyclidine Screen,Urine Not Detected (NotDetected); Tricyclic Antidepressant,Urine Not Detected (NotDetected); Urn Cannabinoid Scrn Detected (NotDetected)
[2020-08-14] MEDS: IPRATROPIUM-ALBUTEROL 3 ML NEB INHALATION SCH ×5 (00:31→15:01)
[2020-08-14 04:22] VITALS: RESP 18
[2020-08-14 06:25] LABS: Basophils % (A) 1 %; Eosinophils # (A) 0.3 k/uL (0-0.7); Eosinophils % (A) 5 %; HCT 40.4 % (34.0-46.0); HGB 12.4 gm/dL (11.4-16.0); Hypochromasia Moderate; Lymphocytes % (A) 30 %; MCH 26.9 pg (25.0-35.0); MCHC 30.7 g/dL (31.0-37.0); MCV 87.6 fL (80.0-100.0); Mean Platelet Volume 6.6; Monocytes # (A) 0.4 k/uL (0-1.0); Monocytes % (A) 6 %; Neutrophils # (A) 3.8 k/uL (1.3-7.7); Neutrophils % (A) 56 %; Platelet Count 243 k/uL (150-450); RBC 4.61 m/uL (3.80-5.40); RDW 13.4 % (11.5-15.5); WBC 6.7 k/uL (3.8-10.6)
[2020-08-14 06:40] LABS: African American GFR (CKD) >90 (>60 ml/min/1.73 sqM); Anion Gap 7 mmol/L; Blood Urea Nitrogen 21 mg/dL (7-17); Calcium 8.4 mg/dL (8.4-10.2); Carbon Dioxide 38 mmol/L (22-30); Chloride 90 mmol/L (98-107); Glucose 114 mg/dL (74-99); Non-African American GFR(CKD) >90 (>60 ml/min/1.73 sqM); Potassium 4.4 mmol/L (3.5-5.1); Sodium 135 mmol/L (137-145)
[2020-08-14] MEDS ORDERED: carvediloL 12.5 MG TAB PO SCH (07:30)
[2020-08-14] MEDS ORDERED: SPIRONOLACTONE 25 MG TAB PO SCH (09:00)
[2020-08-14] MEDS ORDERED: DICYCLOMINE 10 MG CAP PO PRN (10:05)
[2020-08-14] MEDS ORDERED: oxyCODONE-APAP 7.5-325MG 1 EACH TAB PO PRN (10:05)
[2020-08-14] MEDS ORDERED: CITALOPRAM HYDROBROMIDE 20 MG TAB PO SCH (10:15)
[2020-08-14 10:24] LABS: ABG PH 7.28 (7.35-7.45)
[2020-08-14 10:26] LABS: ABG PCO2 87 mmHg (35-45); ABG PO2 76 mmHg (83-108)
[2020-08-14 10:27] LABS: ABG HCO3 41 mmol/L (21-25)
[2020-08-14 15:03] VITALS: BP 153/78; TEMP 98.4
[2020-08-14 15:12] VITALS: PULSE 68
--- NOTE | 2020-08-14 21:42 | P.HPIM ---
History of Present Illness H&P Date: 08/14/20 Chief Complaint: Sleepy History of presenting complaint: This is a 45-year-old patient of Dr. Huston. Chronic stable medical conditions include COPD, fibromyalgia, arthritis, seizure disorder, pancreatic fibrosis, chronic abdominal pain, kidney stones, irritable bowel syndrome,bipolar disorder. Patient is a current smoker. Patient presented to ER with complaint of feeling oriented. She was minimally responsive in the triage boots. She kept falling asleep during the questioning in the ER. She was wheezing. Pulse ox was down to 77% on room air. She only wears oxygen at night. She did complain of feeling more short of breath. This morning when I saw the patient. She does have a cough. Some wheezing. Which is better overnight. She does take Xanax at home. Also takes Banophen which is like Benadryl 50 mg 3 times a day for a long time. When asked about a medication she said she doesn't take Xanax. Her wheezing is better since overnight. This morning patient states she feels back to baseline. Review of systems: GEN.: Tired EYES: None HEENT: None NECK: None RESPIRATORY: As above CARDIOVASCULAR: None GASTROINTESTINAL: None GENITOURINARY: None MUSCULOSKELETAL: As above LYMPHATICS: None HEMATOLOGICAL: None PSYCHIATRY: Anxious NEUROLOGICAL: None Social history: Patient smoked 3 packs for many years now down to a few cigarettes a day. [facility]. Family history: Patient is adopted Physical examination: VITAL SIGNS: 98.2, 90, 20, 132/86, 77% on room air-upon presentation GENERAL: BMI 45.1, sitting up in bed, slightly short of breath EYES: Pupils equal. Conjunctiva normal. HEENT: External appearance of nose and ears normal, oral cavity grossly normal. NECK: JVD not raised; masses not palpable. HEART: First and second heart sounds are normal; no edema. LUNGS: Respiratory rate increased, decreased breath sounds prolonged expiration mild wheezing. ABDOMEN: Soft, nontender, liver spleen not palpable, no masses palpable. PSYCH: Alert and oriented x3; mood and affect anxious. NEUROLOGICAL: Cranial nerves grossly intact; no facial asymmetry, power and sensation grossly intact. LYMPHATICS: No lymph nodes palpable in the axilla and neck INVESTIGATIONS, reviewed in the clinical context: White count 8.9 hemoglobin 13.6 platelets 277 Venous blood gas: PH 7.26 pCO2 91 Potassium 4.6 creatinine 1.13 Urine drug screen positive for opiates, oxycodone, benzodiazepines, marijuana Serum alcohol less than 10 serum acetaminophen less than 10 EKG tracing personally reviewed by me-normal sinus rhythm Chest x-ray film personally reviewed by me-possible atelectasis Assessment: -Acute metabolic/hypoxic encephalopathy/delirium combination of patient becoming hypersomnolent from multiple medications she takes including Benadryl equivalent and Xanax and as a result becoming hypoxic. -Acute hypoxic and hypercapnic respiratory failure from above -Chronic hypoxic respiratory failure on home oxygen 2 L from COPD -Acute COPD exacerbation in a current smoker -Chronic fibromyalgia -Lobar arthritis- -chronic seizure disorder -Irritable bowel syndrome -Obesity BMI 45.1 -Chronic nicotine dependence, patient cigarette smoker -Bipolar disorder Plan: Patient has received bronchodilators steroids. Home medications have been resu med. Spoke at length with the patient and discontinued patient's Banophen. Also told him discontinue Xanax. Patient very keen insistent to go home. Smoke cessation counseling: This was done with the patient. Nicotine patch is being given. More than 3 minutes was spent for this. 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 IBS, cellulitis of the chin,. pt states her last seizure was over a year ago, reports she used to take medication for it but her DrCorinne took her off of it because she got sick while using it History of Any Multi-Drug Resistant Organisms: MRSA Date of last positivie culture/infection: 07/2016 MDRO Source:: [facility] Past Surgical History: Section, Cholecystectomy, Hysterectomy, Tubal Ligation Additional Past Surgical History / Comment(s): oral surgery . Pancreas biopsy May 2015. hysterectomy 2009 Past Anesthesia/Blood Transfusion Reactions: No Reported Reaction Past Psychological History: ADD/ADHD, Anxiety, Bipolar, Depression Additional Psychological History / Comment(s): pt states borderline personality disorder diagnosed around 2010 Smoking Status: Current every day smoker Past Alcohol Use History: None Reported Additional Past Alcohol Use History / Comment(s): pt states she up to 3.5 to 4 packs/day now down to 3/day Past Drug Use History: Marijuana Additional Drug Use History / Comment(s): Says she occasionally has edible marijuana- a couple times within the last year. - Past Family History Father Family Medical History: No Reported History Additional Family Medical History / Comment(s): ADOPTED Medications and Allergies Home Medications Medication Instructions Recorded Confirmed Type Ipratropium/Albuterol Sulfate 2 puff INHALATION RT-BID 07/26/15 08/13/20 History [Combivent Respimat Inhaler] Spironolactone [Aldactone] 25 mg PO DAILY 02/05/17 08/13/20 History QUEtiapine [SEROquel] 100 mg PO HS 02/25/19 08/13/20 History Citalopram Hydrobromide [CeleXA] 40 mg PO DAILY 06/12/19 08/13/20 History Albuterol Sulfate [Proair Hfa] 1 - 2 puff INHALATION RT-QID PRN 01/01/20 08/13/20 History oxyCODONE-APAP 7.5-325MG [Percocet 1 tab PO TID PRN 01/01/20 08/13/20 History 7.5-325 mg] Carvedilol [Coreg] 25 mg PO BID 05/28/20 08/13/20 History Dicyclomine [Bentyl] 10 mg PO QID PRN 05/28/20 08/13/20 History Allergies Allergy/AdvReac Type Severity Reaction Status Date / Time adhesive Allergy Rash/Hives Verified 08/13/20 20:02 amoxicillin Allergy Anaphylaxis Verified 08/13/20 20:02 azithromycin [From Zithromax] Allergy Anaphylaxis Verified 08/13/20 20:02 cephalexin monohydrate Allergy Anaphylaxis Verified 08/13/20 20:02 [From Keflex] ciprofloxacin Allergy Anaphylaxis Verified 08/13/20 20:02 clindamycin Allergy Anaphylaxis Verified 08/13/20 20:02 Iodinated Contrast Media Allergy Swelling Verified 08/13/20 20:02 [Iodinated Contrast- Oral and IV Dye] levofloxacin [From Levaquin] Allergy Rash/Hives Verified 08/13/20 20:02 naproxen Allergy Anaphylaxis Verified 08/13/20 20:02 NSAIDS (Non-Steroidal Allergy Rash/Hives Verified 08/13/20 20:02 Anti-Inflamma shellfish derived Allergy Anaphylaxis Verified 08/13/20 20:02 Sulfa (Sulfonamide Allergy Anaphylaxis Verified 08/13/20 20:02 Antibiotics) sulfamethoxazole Allergy Anaphylaxis Verified 08/13/20 20:02 [From Bactrim] tramadol Allergy Unknown Verified 08/13/20 20:02 trimethoprim [From Bactrim] Allergy Anaphylaxis Verified 08/13/20 20:02 Physical Exam Vitals: Vital Signs Temp Pulse Pulse Resp BP BP Pulse Ox 08/14/20 06:05 82 08/14/20 05:55 84 08/14/20 04:00 98.7 F 86 18 135/92 92 L 08/14/20 01:17 84 19 08/14/20 00:42 84 08/14/20 00:31 84 08/13/20 23:51 98.8 F 84 19 155/83 94 L 08/13/20 23:34 78 16 122/96 95 08/13/20 22:56 103/81 08/13/20 22:51 81 14 96/86 95 08/13/20 21:20 97.7 F 77 16 133/77 98 08/13/20 20:39 12 08/13/20 19:58 98.2 F 90 20 132/86 77 L Intake and Output 08/13/20 08/14/20 08/14/20 22:59 06:59 14:59 Intake Total 100 Balance 100 Intake: Oral 100 Other: Weight 89.811 kg 104.7 kg Results CBC & Chem 7: 08/14/20 05:51 08/14/20 05:51 Labs: Abnormal Lab Results - Last 24 Hours (Table) 08/13/20 08/13/20 08/13/20 Range/Units 20:27 20:27 20:27 MCHC (31.0-37.0) g/dL VBG pH 7.26 L (7.31-7.41) VBG pCO2 91 H* (37-51) mmHg VBG HCO3 39 H (24-28) mmol/L Sodium (137-145) mmol/L Chloride (98-107) mmol/L Carbon Dioxide (22-30) mmol/L BUN (7-17) mg/dL Creatinine (0.52-1.04) mg/dL Glucose (74-99) mg/dL POC Glucose (mg/dL) (75-99) mg/dL ALT (4-34) U/L Ammonia 34 H (<30) umol/L Urine Protein 2+ H (Negative) Urine Blood Large H (Negative) Urine RBC 17 H (0-5) /hpf Urine WBC 8 H (0-5) /hpf Hyaline Casts 57 H (0-2) /lpf Urine Mucus Few H (None) /hpf Urine Opiates Screen Detected H (NotDetected) Ur Oxycodone Screen Detected H (NotDetected) U Benzodiazepines Scrn Detected H (NotDetected) U Marijuana (THC) Screen Detected H (NotDetected) 08/13/20 08/13/20 08/14/20 Range/Units 20:43 20:50 05:51 MCHC 30.7 L (31.0-37.0) g/dL VBG pH (7.31-7.41) VBG pCO2 (37-51) mmHg VBG HCO3 (24-28) mmol/L Sodium (137-145) mmol/L Chloride 93 L (98-107) mmol/L Carbon Dioxide 40 H (22-30) mmol/L BUN (7-17) mg/dL Creatinine 1.13 H (0.52-1.04) mg/dL Glucose 130 H (74-99) mg/dL POC Glucose (mg/dL) 119 H (75-99) mg/dL ALT 40 H (4-34) U/L Ammonia (<30) umol/L Urine Protein (Negative) Urine Blood (Negative) Urine RBC (0-5) /hpf Urine WBC (0-5) /hpf Hyaline Casts (0-2) /lpf Urine Mucus (None) /hpf Urine Opiates Screen (NotDetected) Ur Oxycodone Screen (NotDetected) U Benzodiazepines Scrn (NotDetected) U Marijuana (THC) Screen (NotDetected) 08/14/20 Range/Units 05:51 MCHC (31.0-37.0) g/dL VBG pH (7.31-7.41) VBG pCO2 (37-51) mmHg VBG HCO3 (24-28) mmol/L Sodium 135 L (137-145) mmol/L Chloride 90 L (98-107) mmol/L Carbon Dioxide 38 H (22-30) mmol/L BUN 21 H (7-17) mg/dL Creatinine (0.52-1.04) mg/dL Glucose 114 H (74-99) mg/dL POC Glucose (mg/dL) (75-99) mg/dL ALT (4-34) U/L Ammonia (<30) umol/L Urine Protein (Negative) Urine Blood (Negative) Urine RBC (0-5) /hpf Urine WBC (0-5) /hpf Hyaline Casts (0-2) /lpf Urine Mucus (None) /hpf Urine Opiates Screen (NotDetected) Ur Oxycodone Screen (NotDetected) U Benzodiazepines Scrn (NotDetected) U Marijuana (THC) Screen (NotDetected) Thrombosis Risk Factor Assmnt - Choose All That Apply Any of the Below Risk Factors Present?: Yes Each Factor Represents 1 point: Abnormal pulmonary function (COPD), Age 41-60 years, Obesity (BMI >25) Other Risk Factors: No Other congenital or acquired thrombophilia - If yes, enter type in comment: No Thrombosis Risk Factor Assessment Total Risk Factor Score: 3 Thrombosis Risk Factor Assessment Level: Moderate Risk
--- NOTE | 2020-08-14 21:45 | P.DS ---
Providers Date of admission: 08/13/20 22:18 Expected date of discharge: 08/14/20 Attending physician: Sajan Pace Consults: 08/13/20 22:20 Consult Physician Urgent Consulting Provider: Elton Mcmillan Consult Reason/Comments: acute nivdrf, acute copd exacerbation, opiate use with encephalopathy Do you want consulting provider notified?: Yes Primary care physician: Kaleb Huston [place] [facility] Course: Chief Complaint: Sleepy History of presenting complaint: This is a 45-year-old patient of Dr. Huston. Chronic stable medical conditions include COPD, fibromyalgia, arthritis, seizure disorder, pancreatic fibrosis, chronic abdominal pain, kidney stones, irritable bowel syndrome,bipolar disorder. Patient is a current smoker. Patient presented to ER with complaint of feeling oriented. She was minimally responsive in the triage boots. She kept falling asleep during the questioning in the ER. She was wheezing. Pulse ox was down to 77% on room air. She only wears oxygen at night. She did complain of feeling more short of breath. This morning when I saw the patient. She does have a cough. Some wheezing. Which is better overnight. She does take Xanax at home. Also takes Banophen which is like Benadryl 50 mg 3 times a day for a long time. When asked about a medication she said she doesn't take Xanax. Her wheezing is better since overnight. This morning patient states she feels back to baseline. Patient responded well to bronchodilators, steroids. Patient told to stop the Xanax and Banophen. Also counseled about smoking. Patient very keen to go home. Feels back to baseline. Social history: Patient smoked 3 packs for many years now down to a few cigarettes a day. . Family history: Patient is adopted Physical examination: VITAL SIGNS: 98.4, 71, 18, 153 with 78, 94% on 3 L GENERAL: BMI 45.1, sitting up in bed, slightly short of breath EYES: Pupils equal. Conjunctiva normal. HEENT: External appearance of nose and ears normal, oral cavity grossly normal. NECK: JVD not raised; masses not palpable. HEART: First and second heart sounds are normal; no edema. LUNGS: Respiratory rate increased, decreased breath sounds prolonged expiration mild wheezing. ABDOMEN: Soft, nontender, liver spleen not palpable, no masses palpable. PSYCH: Alert and oriented x3; mood and affect anxious. INVESTIGATIONS, reviewed in the clinical context: Repeat creatinine 0.7 to White count 8.9 hemoglobin 13.6 platelets 277 Venous blood gas: PH 7.26 pCO2 91 Potassium 4.6 creatinine 1.13 Urine drug screen positive for opiates, oxycodone, benzodiazepines, marijuana Serum alcohol less than 10 serum acetaminophen less than 10 EKG tracing personally reviewed by me-normal sinus rhythm Chest x-ray film personally reviewed by me-possible atelectasis Assessment: -Acute metabolic/hypoxic encephalopathy/delirium combination of patient becoming hypersomnolent from multiple medications she takes including Benadryl equivalent and Xanax and as a result becoming hypoxic. -Acute hypoxic and hypercapnic respiratory failure from above -Chronic hypoxic respiratory failure on home oxygen 2 L from COPD -Acute COPD exacerbation in a current smoker -Chronic fibromyalgia -Lobar arthritis- -chronic seizure disorder -Irritable bowel syndrome -Obesity BMI 45.1 -Chronic nicotine dependence, patient cigarette smoker -Bipolar disorder -Acute kidney injury prerenal likely from decreased oral intake Disposition: Home Plan - Discharge Summary Discharge Rx Participant: Yes New Discharge Prescriptions: Continue Ipratropium/Albuterol Sulfate [Combivent Respimat Inhaler] 2 puff INHALATION RT-BID Spironolactone [Aldactone] 25 mg PO DAILY QUEtiapine [SEROquel] 100 mg PO HS Citalopram Hydrobromide [CeleXA] 40 mg PO DAILY Albuterol Sulfate [Proair Hfa] 1 - 2 puff INHALATION RT-QID PRN PRN Reason: Shortness Of Breath oxyCODONE-APAP 7.5-325MG [Percocet 7.5-325 mg] 1 tab PO TID PRN PRN Reason: Pain Dicyclomine [Bentyl] 10 mg PO QID PRN PRN Reason: IBS Carvedilol [Coreg] 25 mg PO BID Discontinued Banophen 50mg 1 cap PO TID Discharge Medication List Ipratropium/Albuterol Sulfate [Combivent Respimat Inhaler] 2 puff INHALATION RT- BID 07/26/15 [History] Spironolactone [Aldactone] 25 mg PO DAILY 02/05/17 [History] QUEtiapine [SEROquel] 100 mg PO HS 02/25/19 [History] Citalopram Hydrobromide [CeleXA] 40 mg PO DAILY 06/12/19 [History] Albuterol Sulfate [Proair Hfa] 1 - 2 puff INHALATION RT-QID PRN 01/01/20 [History] oxyCODONE-APAP 7.5-325MG [Percocet 7.5-325 mg] 1 tab PO TID PRN 01/01/20 [History] Carvedilol [Coreg] 25 mg PO BID 05/28/20 [History] Dicyclomine [Bentyl] 10 mg PO QID PRN 05/28/20 [History] Follow up Appointment(s)/Referral(s): Kaleb Huston DO [Primary Care Provider] - 1-2 days Elton Mcmillan MD [STAFF PHYSICIAN] - 1 Week Patient Instructions/Handouts: Hypoxia (GEN), Encephalopathy (GEN) Activity/Diet/Wound Care/Special Instructions: heart healthy diet smoking cessation activity limited until follow up Discharge Disposition: HOME SELF-CARE
--- NOTE | 2020-08-15 08:36 | CDI ---
Documentation Clarification Form Date: 08/15/2020 08:35:00 AM From: Sejal Pedraza CCS Phone: If you have a question about this query, please contact Alvina Root Project Eng at [phone] between 8am and 5pm Admit Date: 08/13/2020 10:18:00 PM Patient Name: Yolie Yeboah Visit Number: [id number] Discharge Date: 08/14/2020 03:37:00 PM ATTENTION: The Clinical Documentation Specialists (CDI) and [facility] Coding Staff appreciate your assistance in clarifying documentation. Please respond to the clarification below the line at the bottom and electronically sign. The CDI & [facility] Coding staff will review the response and follow-up if needed. Please note: Queries are made part of the Legal Health Record. If you have any questions, please contact the author of this message via ITS. Dr. Sajan Pace Hypoxic Encephalopathy is documented in the H&P, DS. Acute metabolic/hypoxic encephalopathy/delirium combination of patient becoming hypersomnolent from multiple medications she takes including Benadryl equivalent and Xanax and as a result becoming hypoxic. History/Risk Factors: A/C hypoxic/hypercapnic Resp Failure, COPD exac. Obesity/BMI 45, HTN, NADIR Clinical Indicators: Encephalopathy Labs: ABG pC02 87, HC03 41, pH 7.28, p02 76 EEG: none CT/MRI Brain: none Treatment: Bipap, O2 nasal cannula 2 lpm, Hand Nebulizer Consults: none In your professional opinion, can you please clarify the diagnosis of hypoxic encephalopathy, if known? Anoxic Encephalopathy Metabolic Encephalopathy due to hypoxia Toxic Encephalopathy Other, please specify Unable to determine Metabolic encephalopathy due to, medications MTDD
== END 2020-08-14 15:37 | disposition home or self-care (01) | DRG 91 ==
LOC: EC 19:54 → 3SCARD 22:18
PROVIDERS: ADMIT Hospitalist; ATTEND Hospitalist
PROC: 5A09357 Assistance with Respiratory Ventilation, Less than 24 Consecutive Hours, Continuous Positive Airway Pressure (ICD-10-PCS; principal; 2020-08-13)
DX: G92 Toxic encephalopathy (principal); J96.21 Acute and chronic respiratory failure with hypoxia; J96.22 Acute and chronic respiratory failure with hypercapnia; N17.9 Acute kidney failure, unspecified; J44.1 Chronic obstructive pulmonary disease with (acute) exacerbation; Z68.42 Body mass index [BMI] 45.0-49.9, adult; F11.20 Opioid dependence, uncomplicated; K86.89 Other specified diseases of pancreas; Z99.81 Dependence on supplemental oxygen; I11.0 Hypertensive heart disease with heart failure; I50.9 Heart failure, unspecified; G40.909 Epilepsy, unspecified, not intractable, without status epilepticus; F31.9 Bipolar disorder, unspecified; M06.9 Rheumatoid arthritis, unspecified; F60.3 Borderline personality disorder; K58.9 Irritable bowel syndrome, unspecified; M79.7 Fibromyalgia; E66.9 Obesity, unspecified; F17.210 Nicotine dependence, cigarettes, uncomplicated; G47.33 Obstructive sleep apnea (adult) (pediatric); G89.29 Other chronic pain; G43.909 Migraine, unspecified, not intractable, without status migrainosus; F41.9 Anxiety disorder, unspecified; F90.9 Attention-deficit hyperactivity disorder, unspecified type; N20.0 Calculus of kidney; T50.915A Adverse effect of multiple unspecified drugs, medicaments and biological substances, initial encounter; Z79.899 Other long term (current) drug therapy; Z91.048 Other nonmedicinal substance allergy status; Z86.73 Personal history of transient ischemic attack (TIA), and cerebral infarction without residual deficits; Z87.01 Personal history of pneumonia (recurrent); Z86.14 Personal history of Methicillin resistant Staphylococcus aureus infection; Z90.49 Acquired absence of other specified parts of digestive tract; Z90.710 Acquired absence of both cervix and uterus; Z88.6 Allergy status to analgesic agent; Z88.1 Allergy status to other antibiotic agents; Z91.041 Radiographic dye allergy status; Z88.0 Allergy status to penicillin; Z91.013 Allergy to seafood; Z88.2 Allergy status to sulfonamides; Z88.8 Allergy status to other drugs, medicaments and biological substances
CPT/HCPCS: 36415; 36600; 71046; 80048; 80053; 80143; 80306; 80320; 81001; 82140; 82803; 82805; 83520; 84484; 85025; 85610; 85730; 93005; 94640; 94660; 96374; 99285

== ENCOUNTER 2020-12-05 01:04 | Observation (INO) | payer MEDICARE ==
[2020-12-05] MEDS ORDERED: ALBUTEROL NEBULIZED 2.5 MG/3 ML INHALATION STA (01:39)
[2020-12-05] MEDS ORDERED: methylPREDNISolone SOD SUCCI 125 MG/2 ML VIAL IV STA (01:39)
[2020-12-05] MEDS ORDERED: SODIUM CHLORIDE 0.9% 1,000 ML IV STA (01:39)
[2020-12-05] MEDS ORDERED: IPRATROPIUM 0.5 MG/2.5 ML NEBU INHALATION STA (01:39)
--- NOTE | 2020-12-05 01:47 | ED ---
Altered Mental Status HPI - General Chief Complaint: Seizure Stated Complaint: Seizure Time Seen by Provider: 12/05/20 01:17 Source: patient, RN notes reviewed, old records reviewed Mode of arrival: wheelchair Limitations: no limitations - History of Present Illness Initial Comments: This is a 45-year-old female DF for evaluation of possible seizure. Patient states she has significant history of complaining of chest pain. Patient concern for heart disease history of heart disease. Patient has a strong long and complicated medical history of heart disease asthma, takes multiple medications history of seizures. No current fevers cough or congestion. MD Complaint: other (Shortness of breath seizure activity) -: minutes(s) Severity: mild Consistency of Symptoms: waxing and waning Context: history of similar presentation Associated Symptoms: denies other symptoms - Related Data Home Medications Medication Instructions Recorded Confirmed Ipratropium/Albuterol Sulfate 2 puff INHALATION RT-BID 07/26/15 12/05/20 [Combivent Respimat Inhaler] Spironolactone [Aldactone] 25 mg PO DAILY 02/05/17 12/05/20 QUEtiapine [SEROquel] 100 mg PO HS 02/25/19 12/05/20 Citalopram Hydrobromide [CeleXA] 40 mg PO DAILY 06/12/19 12/05/20 Albuterol Sulfate [Proair Hfa] 1 - 2 puff INHALATION RT-QID PRN 01/01/20 12/05/20 oxyCODONE-APAP 7.5-325MG [Percocet 1 tab PO TID PRN 01/01/20 12/05/20 7.5-325 mg] Carvedilol [Coreg] 25 mg PO BID 05/28/20 12/05/20 Dicyclomine [Bentyl] 10 mg PO QID PRN 05/28/20 12/05/20 Allergies Allergy/AdvReac Type Severity Reaction Status Date / Time adhesive Allergy Rash/Hives Verified 12/05/20 06:53 amoxicillin Allergy Anaphylaxis Verified 12/05/20 06:53 azithromycin [From Zithromax] Allergy Anaphylaxis Verified 12/05/20 06:53 cephalexin monohydrate Allergy Anaphylaxis Verified 12/05/20 06:53 [From Keflex] ciprofloxacin Allergy Anaphylaxis Verified 12/05/20 06:53 clindamycin Allergy Anaphylaxis Verified 12/05/20 06:53 Iodinated Contrast Media Allergy Swelling Verified 12/05/20 06:53 [Iodinated Contrast- Oral and IV Dye] levofloxacin [From Levaquin] Allergy Rash/Hives Verified 12/05/20 06:53 naproxen Allergy Anaphylaxis Verified 12/05/20 06:53 NSAIDS (Non-Steroidal Allergy Rash/Hives Verified 12/05/20 06:53 Anti-Inflamma shellfish derived Allergy Anaphylaxis Verified 12/05/20 06:53 Sulfa (Sulfonamide Allergy Anaphylaxis Verified 12/05/20 06:53 Antibiotics) sulfamethoxazole Allergy Anaphylaxis Verified 12/05/20 06:53 [From Bactrim] tramadol Allergy Unknown Verified 12/05/20 06:53 trimethoprim [From Bactrim] Allergy Anaphylaxis Verified 12/05/20 06:53 Review of Systems ROS Statement: Those systems with pertinent positive or pertinent negative responses have been documented in the HPI. ROS Other: All systems not noted in ROS Statement are negative. 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 IBS, cellulitis of the chin, History of Any Multi-Drug Resistant Organisms: MRSA Date of last positivie culture/infection: 07/2016 MDRO Source:: chin Past Surgical History: Section, Cholecystectomy, Hysterectomy, Tubal Ligation Additional Past Surgical History / Comment(s): oral surgery . Pancreas biopsy May 2015. Past Anesthesia/Blood Transfusion Reactions: No Reported Reaction Past Psychological History: ADD/ADHD, Anxiety, Bipolar, Depression Smoking Status: Current every day smoker Past Alcohol Use History: None Reported Past Drug Use History: Marijuana - Past Family History Father Family Medical History: No Reported History Additional Family Medical History / Comment(s): ADOPTED General Exam Limitations: no limitations General appearance: alert, in no apparent distress Head exam: Present: atraumatic, normocephalic, normal inspection Eye exam: Present: normal appearance, PERRL, EOMI. Absent: scleral icterus, conjunctival injection, periorbital swelling ENT exam: Present: normal exam, mucous membranes moist Neck exam: Present: normal inspection. Absent: tenderness, meningismus, lymphadenopathy Respiratory exam: Present: normal lung sounds bilaterally. Absent: respiratory distress, wheezes, rales, rhonchi, stridor Cardiovascular Exam: Present: regular rate, normal rhythm, normal heart sounds. Absent: systolic murmur, diastolic murmur, rubs, gallop, clicks GI/Abdominal exam: Present: soft, normal bowel sounds. Absent: distended, tenderness, guarding, rebound, rigid Extremities exam: Present: normal inspection, full ROM, normal capillary refill. Absent: tenderness, pedal edema, joint swelling, calf tenderness Back exam: Present: normal inspection Neurological exam: Present: alert, oriented X3, CN II-XII intact Psychiatric exam: Present: normal affect, normal mood Skin exam: Present: warm, dry, intact, normal color. Absent: rash Course Vital Signs 12/05/20 12/05/20 12/05/20 01:05 01:53 02:34 Temperature 97.4 F L Pulse Rate 90 88 85 Respiratory 18 Rate Blood Pressure 167/91 O2 Sat by Pulse 93 L Oximetry 12/05/20 05:17 Temperature Pulse Rate 75 Respiratory 16 Rate Blood Pressure 131/85 O2 Sat by Pulse 96 Oximetry - Reevaluation(s) Reevaluation #1: Medical record is reviewed Patient symptoms are improved here in the ER Patient informed results and questions answered Medical Decision Making - Medical Decision Making 46 female with history of seizures, had a seizure coming in for chest pain observation today compounded by COPD exacerbation - Lab Data Result diagrams: 12/05/20 02:02 12/05/20 07:23 Lab Results 12/05/20 12/05/20 12/05/20 Range/Units 02:02 02:02 02:02 WBC 8.6 (3.8-10.6) k/uL RBC 5.22 (3.80-5.40) m/uL Hgb 13.7 (11.4-16.0) gm/dL Hct 45.2 (34.0-46.0) % MCV 86.5 (80.0-100.0) fL MCH 26.3 (25.0-35.0) pg MCHC 30.4 L (31.0-37.0) g/dL RDW 13.0 (11.5-15.5) % Plt Count 328 (150-450) k/uL MPV 6.7 Neutrophils % 47 % Lymphocytes % 41 % Monocytes % 5 % Eosinophils % 4 % Basophils % 1 % Neutrophils # 4.0 (1.3-7.7) k/uL Lymphocytes # 3.5 (1.0-4.8) k/uL Monocytes # 0.5 (0-1.0) k/uL Eosinophils # 0.3 (0-0.7) k/uL Basophils # 0.1 (0-0.2) k/uL PT 10.5 (9.0-12.0) sec INR 1.0 (<1.2) APTT 23.8 (22.0-30.0) sec Sodium 138 (137-145) mmol/L Potassium 4.4 (3.5-5.1) mmol/L Chloride 96 L (98-107) mmol/L Carbon Dioxide 36 H (22-30) mmol/L Anion Gap 6 mmol/L BUN 20 H (7-17) mg/dL Creatinine 0.85 (0.52-1.04) mg/dL Est GFR (CKD-EPI)AfAm >90 (>60 ml/min/1.73 sqM) Est GFR (CKD-EPI)NonAf 83 (>60 ml/min/1.73 sqM) Glucose 115 H (74-99) mg/dL Plasma Lactic Acid Srinivas (0.7-2.0) mmol/L Calcium 9.2 (8.4-10.2) mg/dL Magnesium 1.6 (1.6-2.3) mg/dL Total Bilirubin <0.1 L (0.2-1.3) mg/dL AST 23 (14-36) U/L ALT 17 (4-34) U/L Alkaline Phosphatase 98 (38-126) U/L Creatine Kinase 28 L (30-135) U/L Troponin I (0.000-0.034) ng/mL NT-Pro-B Natriuret Pep pg/mL Total Protein 7.4 (6.3-8.2) g/dL Albumin 4.5 (3.5-5.0) g/dL Triglycerides (0.0-149.0) mg/dL Cholesterol (0-200) mg/dL LDL Cholesterol, Calc (0.0-131.0) mg/dL VLDL Cholesterol, Calc (5.00-40.00) mg/dL HDL Cholesterol (40.0-60.0) mg/dL Cholesterol/HDL Ratio 12/05/20 12/05/20 12/05/20 Range/Units 02:02 02:02 02:02 WBC (3.8-10.6) k/uL RBC (3.80-5.40) m/uL Hgb (11.4-16.0) gm/dL Hct (34.0-46.0) % MCV (80.0-100.0) fL MCH (25.0-35.0) pg MCHC (31.0-37.0) g/dL RDW (11.5-15.5) % Plt Count (150-450) k/uL MPV Neutrophils % % Lymphocytes % % Monocytes % % Eosinophils % % Basophils % % Neutrophils # (1.3-7.7) k/uL Lymphocytes # (1.0-4.8) k/uL Monocytes # (0-1.0) k/uL Eosinophils # (0-0.7) k/uL Basophils # (0-0.2) k/uL PT (9.0-12.0) sec INR (<1.2) APTT (22.0-30.0) sec Sodium (137-145) mmol/L Potassium (3.5-5.1) mmol/L Chloride (98-107) mmol/L Carbon Dioxide (22-30) mmol/L Anion Gap mmol/L BUN (7-17) mg/dL Creatinine (0.52-1.04) mg/dL Est GFR (CKD-EPI)AfAm (>60 ml/min/1.73 sqM) Est GFR (CKD-EPI)NonAf (>60 ml/min/1.73 sqM) Glucose (74-99) mg/dL Plasma Lactic Acid Srinivas 1.0 (0.7-2.0) mmol/L Calcium (8.4-10.2) mg/dL Magnesium (1.6-2.3) mg/dL Total Bilirubin (0.2-1.3) mg/dL AST (14-36) U/L ALT (4-34) U/L Alkaline Phosphatase (38-126) U/L Creatine Kinase (30-135) U/L Troponin I <0.012 (0.000-0.034) ng/mL NT-Pro-B Natriuret Pep 38 pg/mL Total Protein (6.3-8.2) g/dL Albumin (3.5-5.0) g/dL Triglycerides (0.0-149.0) mg/dL Cholesterol (0-200) mg/dL LDL Cholesterol, Calc (0.0-131.0) mg/dL VLDL Cholesterol, Calc (5.00-40.00) mg/dL HDL Cholesterol (40.0-60.0) mg/dL Cholesterol/HDL Ratio 12/05/ Range/Units 02:02 WBC (3.8-10.6) k/uL RBC (3.80-5.40) m/uL Hgb (11.4-16.0) gm/dL Hct (34.0-46.0) % MCV (80.0-100.0) fL MCH (25.0-35.0) pg MCHC (31.0-37.0) g/dL RDW (11.5-15.5) % Plt Count (150-450) k/uL MPV Neutrophils % % Lymphocytes % % Monocytes % % Eosinophils % % Basophils % % Neutrophils # (1.3-7.7) k/uL Lymphocytes # (1.0-4.8) k/uL Monocytes # (0-1.0) k/uL Eosinophils # (0-0.7) k/uL Basophils # (0-0.2) k/uL PT (9.0-12.0) sec INR (<1.2) APTT (22.0-30.0) sec Sodium (137-145) mmol/L Potassium (3.5-5.1) mmol/L Chloride (98-107) mmol/L Carbon Dioxide (22-30) mmol/L Anion Gap mmol/L BUN (7-17) mg/dL Creatinine (0.52-1.04) mg/dL Est GFR (CKD-EPI)AfAm (>60 ml/min/1.73 sqM) Est GFR (CKD-EPI)NonAf (>60 ml/min/1.73 sqM) Glucose (74-99) mg/dL Plasma Lactic Acid Srinivas (0.7-2.0) mmol/L Calcium (8.4-10.2) mg/dL Magnesium (1.6-2.3) mg/dL Total Bilirubin (0.2-1.3) mg/dL AST (14-36) U/L ALT (4-34) U/L Alkaline Phosphatase (38-126) U/L Creatine Kinase (30-135) U/L Troponin I (0.000-0.034) ng/mL NT-Pro-B Natriuret Pep pg/mL Total Protein (6.3-8.2) g/dL Albumin (3.5-5.0) g/dL Triglycerides 275.0 H (0.0-149.0) mg/dL Cholesterol 181 (0-200) mg/dL LDL Cholesterol, Calc 77.0 (0.0-131.0) mg/dL VLDL Cholesterol, Calc 55.00 H (5.00-40.00) mg/dL HDL Cholesterol 49.0 (40.0-60.0) mg/dL Cholesterol/HDL Ratio 3.69 - Radiology Data Radiology results: report reviewed (CT brain and chest x-ray negative for acute disease), image reviewed Disposition Clinical Impression: COPD (chronic obstructive pulmonary disease), COPD exacerbation, Seizure Disposition: ADMITTED IP TO THIS HOSP Condition: Fair Is patient prescribed a controlled substance at d/c from ED?: No
[2020-12-05] MEDS ORDERED: HYDROmorphone 0.5 MG/0.5 ML SYRINGE IVP STA (02:13)
[2020-12-05 02:26] LABS: Basophils # (A) 0.1 k/uL (0-0.2); Basophils % (A) 1 %; Eosinophils # (A) 0.3 k/uL (0-0.7); Eosinophils % (A) 4 %; HCT 45.2 % (34.0-46.0); HGB 13.7 gm/dL (11.4-16.0); Lymphocytes # (A) 3.5 k/uL (1.0-4.8); Lymphocytes % (A) 41 %; MCH 26.3 pg (25.0-35.0); MCHC 30.4 g/dL (31.0-37.0); MCV 86.5 fL (80.0-100.0); Mean Platelet Volume 6.7; Monocytes # (A) 0.5 k/uL (0-1.0); Monocytes % (A) 5 %; Neutrophils % (A) 47 %; Platelet Count 328 k/uL (150-450); RBC 5.22 m/uL (3.80-5.40); WBC 8.6 k/uL (3.8-10.6)
[2020-12-05 02:31] LABS: Partial Thromboplastin Time 23.8 sec (22.0-30.0); Prothrombin Time 10.5 sec (9.0-12.0)
[2020-12-05 02:32] LABS: ALT 17 U/L (4-34); AST 23 U/L (14-36); African American GFR (CKD) >90 (>60 ml/min/1.73 sqM); Albumin 4.5 g/dL (3.5-5.0); Alkaline Phosphatase 98 U/L (38-126); Anion Gap 6 mmol/L; Blood Urea Nitrogen 20 mg/dL (7-17); Calcium 9.2 mg/dL (8.4-10.2); Carbon Dioxide 36 mmol/L (22-30); Chloride 96 mmol/L (98-107); Creatine Kinase 28 U/L (30-135); Glucose 115 mg/dL (74-99); Magnesium 1.6 mg/dL (1.6-2.3); Non-African American GFR(CKD) 83 (>60 ml/min/1.73 sqM); Potassium 4.4 mmol/L (3.5-5.1); Sodium 138 mmol/L (137-145); Total Bilirubin <0.1 mg/dL (0.2-1.3); Total Protein 7.4 g/dL (6.3-8.2)
--- NOTE | 2020-12-05 03:36 | CT ---
EXAM: CT Head Without Intravenous Contrast CLINICAL HISTORY: sz TECHNIQUE: Axial computed tomography images of the head/brain without intravenous contrast. CTDI is 49.27 mGy and DLP is 1201.4 mGy-cm. This CT exam was performed using one or more of the following dose reduction techniques: automated exposure control, adjustment of the mA and/or kV according to patient size, and/or use of iterative reconstruction technique. Coronal and sagittal reformatted images were created and reviewed. COMPARISON: 07/16/18 FINDINGS: Brain: Unremarkable. No hemorrhage. No significant white matter disease. No edema. Ventricles: Unremarkable. No ventriculomegaly. Bones/joints: Unremarkable. No acute fracture. Soft tissues: Unremarkable. Sinuses: Unremarkable as visualized. No acute sinusitis. Mastoid air cells: Unremarkable as visualized. No mastoid effusion. IMPRESSION: No acute intracranial findings or substantial change
--- NOTE | 2020-12-05 04:18 | XR ---
EXAM: XR Chest, 2 Views CLINICAL HISTORY: ITS.REASON XR Reason: difficulty breathing TECHNIQUE: Frontal and lateral views of the chest. COMPARISON: 07/15/2018. FINDINGS: Lungs: No consolidation or mass. Pleural space: No effusion. Heart: No cardiomegaly. Bones/joints: No acute findings. IMPRESSION: No acute cardiopulmonary process.
[2020-12-05] MEDS ORDERED: ASPIRIN 325 MG TAB PO STA (04:44)
[2020-12-05] MEDS ORDERED: methylPREDNISolone SOD SUCCI 125 MG/2 ML VIAL IV SCH (06:00)
[2020-12-05 06:10] LABS: Glucose,Whole Blood 138 mg/dL (75-99)
[2020-12-05] MEDS: SODIUM CHLORIDE 0.9% 1,000 ML IV SCH ×2 (06:10→17:01)
[2020-12-05] MEDS ORDERED: DICYCLOMINE 10 MG CAP PO PRN (08:34)
[2020-12-05] MEDS ORDERED: ALBUTEROL HFA INHALER INHALATION PRN (08:34)
--- NOTE | 2020-12-05 08:34 | P.HPIM ---
History of Present Illness This is a pleasant 45 years old female with past medical history of heart failure, COPD, CVA/TIA, fibromyalgia, hypertension, osteoarthritis, rheumatoid arthritis, seizure disorder, pancreatic fibrosis, chronic back pain, migraines, chronic abdominal pain, kidney stones, irritable bowel syndrome, degenerative disc disease, bipolar and depression, also she smokes cigarettes and marijuana. She has history of hysterectomy Patient states that she came to the hospital because she was on the floor, she could not remember what happened, the last thing she remembers she was playing with her cat however she was feeling off for today, and she was told to the same about her mother Currently patient looks slightly drowsy but she just woke up from sleep. 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 -patient states that she has history of TIA about 8 months ago she does not remember what she had at that time but she thinks something related to her speech -Also patient says that she has history of seizure and she was on Keppra and Dilantin which was stopped about 3-4 years ago by her doctor and currently she is not taking any seizure medication, she states that she has seizure on and off and her last seizure was more than one year ago. patient also complains from chronic upper and lower back pain related to her fibromyalgia since 2006, she follows up with Dr. Wick as an outpatient -She has history of COPD and she follows up with Dr. Su, she uses 2 L of oxygen at night but not CPAP/BiPAP machine If and she smokes about 2-3 cigarettes per day, cutting down from 3 pack per day before. Denies alcohol or illicit tracts except marijuana for her back pain. -She has history of depression since teenager on Celexa and history of bipolar disorder on Seroquel however she denies active signs and symptoms of depression like no hopelessness/hopelessness. Patient denies suicidal ideation, no homicidal ideation. No hallucination or delusions Vitals are stable, blood pressure slightly elevated 153/94. Labs including CBC, INR, BMP, liver enzymes are unremarkable. Troponin is negative less than 0.012. ProBNP is normal at 38. Coronavirus not detected. Chest x-ray: No acute process Brain computed tomography scan: No acute process In the emergency room patient started on aspirin 325 mg, and started on some Medrol 60 mg every 6 hours on normal saline at 100 mL/h after 1 bolus of 1 of NS I tried to call the family/ on [phone] and the line was not working stating this number, except Colles currently. also I Called [phone] with no answer but I could not leave a message. Also I called the number patient gave me for her [phone] but no bloody picked up either and I could not leave a message Review of Systems CONSTITUTIONAL: No fever, no malaise, no fatigue. HEENT: No recent visual problems or hearing problems. Denied any sore throat. CARDIOVASCULAR: No orthopnea, PND, no palpitations, no syncope. PULMONARY: No shortness of breath, no cough, no hemoptysis. GASTROINTESTINAL: No diarrhea, no nausea, no vomiting, no abdominal pain. Normoactive bowel sounds. NEUROLOGICAL: No headaches, no weakness, no numbness. HEMATOLOGICAL: Denies any bleeding or petechiae. GENITOURINARY: Denies any burning micturition, frequency, or urgency. MUSCULOSKELETAL/RHEUMATOLOGICAL: Denies any joint pain, swelling, or any muscle pain. ENDOCRINE: Denies any polyuria or polydipsia. 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 IBS, cellulitis of the chin, degenerative disc disease History of Any Multi-Drug Resistant Organisms: MRSA Date of last positivie culture/infection: 07/2016 MDRO Source:: [facility] Past Surgical History: Section, Cholecystectomy, Hysterectomy, Tubal Ligation Additional Past Surgical History / Comment(s): oral surgery . Pancreas biopsy May 2015. Past Anesthesia/Blood Transfusion Reactions: No Reported Reaction Past Psychological History: ADD/ADHD, Anxiety, Bipolar, Depression Additional Psychological History / Comment(s): pt states borderline personality disorder diagnosed around 2010 Smoking Status: Current every day smoker Past Alcohol Use History: None Reported Additional Past Alcohol Use History / Comment(s): pt states she up to 3.5 to 4 packs/day now down to 3/day Past Drug Use History: Marijuana Additional Drug Use History / Comment(s): Says she occasionally has edible marijuana- a couple times within the last year. - Past Family History Father Family Medical History: No Reported History Additional Family Medical History / Comment(s): ADOPTED Medications and Allergies Home Medications Medication Instructions Recorded Confirmed Type Ipratropium/Albuterol Sulfate 2 puff INHALATION RT-BID 07/26/15 12/05/20 History [Combivent Respimat Inhaler] Spironolactone [Aldactone] 25 mg PO DAILY 02/05/17 12/05/20 History QUEtiapine [SEROquel] 100 mg PO HS 02/25/19 12/05/20 History Citalopram Hydrobromide [CeleXA] 40 mg PO DAILY 06/12/19 12/05/20 History Albuterol Sulfate [Proair Hfa] 1 - 2 puff INHALATION RT-QID PRN 01/01/20 12/05/20 History oxyCODONE-APAP 7.5-325MG [Percocet 1 tab PO TID PRN 01/01/20 12/05/20 History 7.5-325 mg] Carvedilol [Coreg] 25 mg PO BID 05/28/20 12/05/20 History Dicyclomine [Bentyl] 10 mg PO QID PRN 05/28/20 12/05/20 History Allergies Allergy/AdvReac Type Severity Reaction Status Date / Time adhesive Allergy Rash/Hives Verified 12/05/20 06:53 amoxicillin Allergy Anaphylaxis Verified 12/05/20 06:53 azithromycin [From Zithromax] Allergy Anaphylaxis Verified 12/05/20 06:53 cephalexin monohydrate Allergy Anaphylaxis Verified 12/05/20 06:53 [From Keflex] ciprofloxacin Allergy Anaphylaxis Verified 12/05/20 06:53 clindamycin Allergy Anaphylaxis Verified 12/05/20 06:53 Iodinated Contrast Media Allergy Swelling Verified 12/05/20 06:53 [Iodinated Contrast- Oral and IV Dye] levofloxacin [From Levaquin] Allergy Rash/Hives Verified 12/05/20 06:53 naproxen Allergy Anaphylaxis Verified 12/05/20 06:53 NSAIDS (Non-Steroidal Allergy Rash/Hives Verified 12/05/20 06:53 Anti-Inflamma shellfish derived Allergy Anaphylaxis Verified 12/05/20 06:53 Sulfa (Sulfonamide Allergy Anaphylaxis Verified 12/05/20 06:53 Antibiotics) sulfamethoxazole Allergy Anaphylaxis Verified 12/05/20 06:53 [From Bactrim] tramadol Allergy Unknown Verified 12/05/20 06:53 trimethoprim [From Bactrim] Allergy Anaphylaxis Verified 12/05/20 06:53 Physical Exam Vitals: Vital Signs Temp Pulse Pulse Resp BP BP Pulse Ox 12/05/20 05:40 86 18 153/94 95 12/05/20 05:17 75 16 131/85 96 12/05/20 02:34 85 12/05/20 01:53 88 12/05/20 01:05 97.4 F L 90 18 167/91 93 L Intake and Output 12/04/20 12/04/20 12/05/20 14:59 22:59 06:59 Other: # Voids 1 Weight 87.09 kg GENERAL: The patient is alert and oriented x3, not in any acute distress. Well developed, well nourished. HEENT: Pupils are round and equally reacting to light. EOMI. No scleral icterus. No conjunctival pallor. Normocephalic, atraumatic. No pharyngeal erythema. No th yromegaly. CARDIOVASCULAR: S1 and S2 present. No murmurs, rubs, or gallops. PULMONARY: Chest is clear to auscultation, no wheezing or crackles. ABDOMEN: Soft, nontender, nondistended, normoactive bowel sounds. No palpable organomegaly. MUSCULOSKELETAL: No joint swelling or deformity. EXTREMITIES: No cyanosis, clubbing, or pedal edema. NEUROLOGICAL: Gross neurological examination did not reveal any focal deficits. SKIN: No rashes. No petechiae Results CBC & Chem 7: 12/05/20 02:02 12/05/20 02:02 Labs: Abnormal Lab Results - Last 24 Hours (Table) 12/05/20 12/05/20 12/05/20 Range/Units 02:02 02:02 06:03 MCHC 30.4 L (31.0-37.0) g/dL Chloride 96 L (98-107) mmol/L Carbon Dioxide 36 H (22-30) mmol/L BUN 20 H (7-17) mg/dL Glucose 115 H (74-99) mg/dL POC Glucose (mg/dL) 138 H (75-99) mg/dL Total Bilirubin <0.1 L (0.2-1.3) mg/dL Creatine Kinase 28 L (30-135) U/L Thrombosis Risk Factor Assmnt - Choose All That Apply Any of the Below Risk Factors Present?: Yes Each Factor Represents 1 point: Abnormal pulmonary function (COPD), Age 41-60 years, Obesity (BMI >25) Thrombosis Risk Factor Assessment Total Risk Factor Score: 3 Thrombosis Risk Factor Assessment Level: Moderate Risk Assessment and Plan Assessment: Transient period of altered mental status, rule out seizure, rule out syncope Hypertension Rheumatoid arthritis History of osteoarthritis Chronic heart failure per documentation COPD, with mild exacerbationlgia History of rheumatoid arthritis History of seizure disorder History of pancreatic fibrosis Chronic back pain History of migraine Chronic abdominal pain History of kidney stones Irritable bowel syndrome Degenerative disc disease History of bipolar and depression Nicotine dependence Substance abuse with marijuana Obesity with BMI of 37.5 Plan: This is a pleasant 45 years old female who presents with period of unresponsiveness and review of her history of seizure. We will consult cardiology team. Neurologist also on the case. Continue with aspirin. Check orthostatic vitals Discontinue IV Solu-Medrol and switched to prednisone orally. Check hemoglobin A1c, vitamin B12 and folate, check TSH. Labs and medication were reviewed.. Continue same treatment. Continue with symptomatic treatment. Resume home medication. Monitor lytes and vitals. DVT and GI prophylaxis. Further recommendationsas per clinical course of the patient DVT prophylaxis: Subcutaneous heparin GI Prophylaxis: Pepcid PT/OT: Pending Prognosis is guarded
[2020-12-05 08:41] LABS: African American GFR (CKD) >90 (>60 ml/min/1.73 sqM); Anion Gap 10 mmol/L; Blood Urea Nitrogen 19 mg/dL (7-17); Calcium 8.5 mg/dL (8.4-10.2); Carbon Dioxide 29 mmol/L (22-30); Chloride 100 mmol/L (98-107); Glucose 190 mg/dL (74-99); Non-African American GFR(CKD) >90 (>60 ml/min/1.73 sqM); Potassium 4.4 mmol/L (3.5-5.1); Sodium 139 mmol/L (137-145)
[2020-12-05 09:48] LABS: T4, Free (Free Thyroxine) 0.93 ng/dL (0.78-2.19)
[2020-12-05] MEDS: predniSONE 10 MG TAB PO SCH (10:01)
[2020-12-05] MEDS: carvediloL 12.5 MG TAB PO SCH ×2 (10:01→20:15)
[2020-12-05] MEDS: HEPARIN SODIUM,PORCINE/PF 5,000 UNIT/0.5 ML SYRINGE SQ SCH ×2 (10:01→20:15)
[2020-12-05] MEDS: FAMOTIDINE 20 MG/2 ML VIAL IV SCH ×2 (10:01→20:15)
[2020-12-05] MEDS: SPIRONOLACTONE 25 MG TAB PO SCH (10:01)
[2020-12-05] MEDS: CITALOPRAM HYDROBROMIDE 20 MG TAB PO SCH (10:01)
[2020-12-05] MEDS: IPRATROPIUM-ALBUTEROL 3 ML NEB INHALATION SCH ×4 (11:10→19:29)
[2020-12-05 11:37] LABS: HCG,Qualitative Serum Indeterminate
[2020-12-05] MEDS: oxyCODONE-APAP 7.5-325MG 1 EACH TAB PO PRN ×2 (11:47→17:07)
--- NOTE | 2020-12-05 12:05 | P.CNNES ---
History of Present Illness Consult date: 12/05/20 Requesting physician: Valdez Olivares Reason for Consult: TIA History of Present Illness: Patient is a 45-year-old female came to the hospital early this morning at 1 AM for some confusion, dizziness, memory disturbance. Patient states that yesterday morning she woke up as usual at 9:30 AM. She came downstairs, wanted to have some coffee, but saw her nina, remembers getting down on the floor to play with her nina. Then she does not remember until her daughter tried to woke her up and she was on the floor. She does not know how long she was out for. Patient stated that she felt confused at the time. She went back to her room, stayed up rest of the day and just studied, for her course that she is mayra ing. Later in the evening, patient went to her mother's house and her mom said that she did not look right. She was feeling dizzy lightheaded hurting all over. She says that she has been feeling pressure over her head off and on for last few weeks. She was concerned if she was having a stroke TIA or a seizure therefore she decided to come to the ER. Patient states that she does take 1 or 2 candies of marijuana and 1 piece of marijuana brownie every day. Also on 3 tablets of Percocet 70 day. Patient has COPD and uses oxygen 2 L at night only. She does not need oxygen during the day. Patient's vital signs on arrival was blood pressure 167/91, pulse rate 90, temperature 97.4 computed tomography scan of head showed no acute intracranial findings or substantial change. Chest x-ray showed no acute cardiopulmonary process. Patient's blood test shows normal CBC, PT/PTT, normal electrolytes, normal renal and hepatic panel. Troponin is negative. TSH is decreased 0.061. Story virus negative. Patient's last hemoglobin A1c 6.6 on 03/30/2019. Vitamin B12 was borderline to 89. Vitamin B6 7, vitamin D low 14.4 patient currently was taking Seroquel 100 mg at bedtime, Celexa 40 mg, albuterol, Percocet, Coreg, spironolactone. Patient has been started on aspirin. Patient is known to me from previous admission to the hospital on 01/01/2020, when she had altered mental status, felt to be related to overdosing on marijuana and side effects of Lyrica. 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 Normal carotid bifurcation. Computed tomography scan of head was normal. Review of Systems Denies any fever or chills, denies any double vision or loss of vision hearing loss, hoarseness sore throat dysphagia. Patient has some shortness of breath from her COPD. No chest pain abdominal pain nausea vomiting diarrhea. Patient has chronic name, diffuse body pain from arthritis and fibromyalgia. All other review of systems noncontributory. 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 IBS, cellulitis of the chin, degenerative disc disease History of Any Multi-Drug Resistant Organisms: MRSA Date of last positivie culture/infection: 07/2016 MDRO Source:: chin Past Surgical History: Section, Cholecystectomy, Hysterectomy, Tubal Ligation Additional Past Surgical History / Comment(s): oral surgery . Pancreas biopsy May 2015. Past Anesthesia/Blood Transfusion Reactions: No Reported Reaction Past Psychological History: ADD/ADHD, Anxiety, Bipolar, Depression Additional Psychological History / Comment(s): pt states borderline personality disorder diagnosed around 2010 Smoking Status: Current every day smoker Past Alcohol Use History: None Reported Additional Past Alcohol Use History / Comment(s): pt states she up to 3.5 to 4 packs/day now down to 3/day Past Drug Use History: Marijuana Additional Drug Use History / Comment(s): Says she occasionally has edible marijuana- a couple times within the last year. - Past Family History Father Family Medical History: No Reported History Additional Family Medical History / Comment(s): ADOPTED Medications and Allergies Home Medications Medication Instructions Recorded Confirmed Type Ipratropium/Albuterol Sulfate 2 puff INHALATION RT-BID 07/26/15 12/05/20 History [Combivent Respimat Inhaler] Spironolactone [Aldactone] 25 mg PO DAILY 02/05/17 12/05/20 History QUEtiapine [SEROquel] 100 mg PO HS 02/25/19 12/05/20 History Citalopram Hydrobromide [CeleXA] 40 mg PO DAILY 06/12/19 12/05/20 History Albuterol Sulfate [Proair Hfa] 1 - 2 puff INHALATION RT-QID PRN 01/01/20 12/05/20 History oxyCODONE-APAP 7.5-325MG [Percocet 1 tab PO TID PRN 01/01/20 12/05/20 History 7.5-325 mg] Carvedilol [Coreg] 25 mg PO BID 05/28/20 12/05/20 History Dicyclomine [Bentyl] 10 mg PO QID PRN 05/28/20 12/05/20 History Allergies Allergy/AdvReac Type Severity Reaction Status Date / Time adhesive Allergy Rash/Hives Verified 12/05/20 06:53 amoxicillin Allergy Anaphylaxis Verified 12/05/20 06:53 azithromycin [From Zithromax] Allergy Anaphylaxis Verified 12/05/20 06:53 cephalexin monohydrate Allergy Anaphylaxis Verified 12/05/20 06:53 [From Keflex] ciprofloxacin Allergy Anaphylaxis Verified 12/05/20 06:53 clindamycin Allergy Anaphylaxis Verified 12/05/20 06:53 Iodinated Contrast Media Allergy Swelling Verified 12/05/20 06:53 [Iodinated Contrast- Oral and IV Dye] levofloxacin [From Levaquin] Allergy Rash/Hives Verified 12/05/20 06:53 naproxen Allergy Anaphylaxis Verified 12/05/20 06:53 NSAIDS (Non-Steroidal Allergy Rash/Hives Verified 12/05/20 06:53 Anti-Inflamma shellfish derived Allergy Anaphylaxis Verified 12/05/20 06:53 Sulfa (Sulfonamide Allergy Anaphylaxis Verified 12/05/20 06:53 Antibiotics) sulfamethoxazole Allergy Anaphylaxis Verified 12/05/20 06:53 [From Bactrim] tramadol Allergy Unknown Verified 12/05/20 06:53 trimethoprim [From Bactrim] Allergy Anaphylaxis Verified 12/05/20 06:53 Physical Examination - Vital Signs Vital Signs: Vital Signs Temp Pulse Pulse Resp BP BP Pulse Ox 12/05/20 05:40 86 18 153/94 95 12/05/20 05:17 75 16 131/85 96 12/05/20 02:34 85 12/05/20 01:53 88 12/05/20 01:05 97.4 F L 90 18 167/91 93 L Intake and Output 12/04/20 12/05/20 12/05/20 22:59 06:59 14:59 Other: # Voids 1 Weight 87.09 kg Patient is a middle aged female, in no acute distress. Patient is alert awake oriented to time place and person. Speech and language functions are normal. Attention, concentration and fund of knowledge is adequate. On cranial examination, pupils are equal, round and reacting to light, visual daniel are full on confrontation with no neglect, extraocular muscles are intact with no nystagmus. Face is symmetric, tongue protrudes to the midline. Palatal elevation and sensation normal, hearing and shoulder shrug normal, facial s ensation normal. Shoulder shrug normal. On muscle strength testing, there is no pronator drift and the strength is normal in arms and legs distally and proximally. Deep tendon reflexes are 1+ to 2 all over and plantars downgoing. Sensory to touch is equal with no neglect. Cerebellar function showed no ataxia for [id number] testing. No dysdiadochokinesia. Tone and bulk of muscles normal. Gait normal. On general examination, there is no carotid bruit or murmur, S1-S2 audible. Abdomen is soft nontender. Chest is clear. Peripheral pulses are present. No edema. Results - Laboratory Findings CBC and BMP: 12/05/20 02:02 12/05/20 07:23 Abnormal Lab Findings: Abnormal Labs 12/05/20 12/05/20 12/05/20 02:02 02:02 06:03 MCHC 30.4 L Chloride 96 L Carbon Dioxide 36 H BUN 20 H Glucose 115 H POC Glucose (mg/dL) 138 H Total Bilirubin <0.1 L Creatine Kinase 28 L TSH 12/05/20 12/05/20 07:23 07:23 MCHC Chloride Carbon Dioxide BUN 19 H Glucose 190 H POC Glucose (mg/dL) Total Bilirubin Creatine Kinase TSH 0.061 L Assessment and Plan Assessment: * Syncopal spell versus transient encephalopathy. Possibly metabolic toxic. Patient's COPD, hypoxemia, use of marijuana, pain medications probably contributing. * COPD * Obesity * Tobacco use. Still smokes 3 cigarettes per day. * Marijuana use. Plan: * Patient does not take any antiplatelet medication at home. I would suggest starting aspirin 81 mg daily. * Tobacco cessation. * Patient had a normal CTA of head and neck performed recently a year ago, no need to repeat. * Agree to check 2-D echo to complete TIA workup. * Patient also undergoing blood testing including lipid panel, A1c, B12, folate, TFTs. * Abstain from marijuana. Addendum: B12 447, Folate 8.4, TSH 0.061 (low), Free T4 0.93 normal, A1c 6.1, Cholesterol 181, LDL77, HDL 49, TG 275 ECHO showed Normal LV size, mild concentric LVH, EF 55-60%, Trace TR Tried to call patients all phone numbers listed to inform the results.
--- NOTE | 2020-12-05 12:12 | P.CRDCN ---
History of Present Illness Consult date: 12/05/20 History of present illness: HISTORY OF PRESENT ILLNESS: This is a 45-year-old female with a past medical history significant for hypertension, COPD, nicotine dependence, marijuana use, fibromyalgia, chronic back pain, rheumatoid arthritis, and seizures. Patient does not follow with a infant room teacher. We have been asked to see the patient in consultation for an episode of unresponsiveness. Patient examined at the bedside. Patient states she was feeling in her normal state of health yesterday. She got down on the floor in the living room to play with her cat. Apparently, the patients daughter walked into the living room and woke the patient up and asked her why she was sleeping. Patient was unaware that she had fallen asleep or passed out. She denies biting her tongue. She denies loss of bowel or bladder. She states she felt confused when her daughter woke her up. Patient also reported some minimal left sided weakness which has resolved. Patient denies any chest pain or pressure. She denies any shortness of breath. Telemetry revealed sinus mechanism Chest xray negative for acute cardiopulmonary process Laboratory data: WBC 8.6. Hemoglobin 13.7. Platelet count 328. Sodium 139. Potassium 4.4. BUN 19. Creatinine 0.70. Troponin negative 1. BNP 38. Current home cardiac medications include Coreg 25 mg twice a day and Aldactone 25 mg daily Most recent echocardiogram obtained in 2014 revealed ejection fraction 55-60%, mild mitral regurgitation, and mild tricuspid regurgitation Patient underwent a dobutamine stress test in 2015 which was negative for ischemia. REVIEW OF SYSTEMS: At the time of my exam: CONSTITUTIONAL: Denies fever or chills. HEENT: Denies blurred vision, vision changes, or eye pain. Denies hemoptysis CARDIOVASCULAR: Denies chest pain. Denies orthopnea. Denies PND. Denies palpitations RESPIRATORY: Denies shortness of breath. GASTROINTESTINAL: Denies abdominal pain. Denies nausea or vomiting. HEMATOLOGIC: Denies bleeding disorders. GENITOURINARY: Denies any blood in urine. SKIN: Denies pruitis. Denies rash. PHYSICAL EXAM: VITAL SIGNS: Reviewed. GENERAL: Well-developed in no acute distress. HEENT: Head is normocephalic. Pupils are equal, round. Sclerae anicteric. Mucous membranes of the mouth are moist. Neck supple. No JVD or thyromegaly LUNGS: Respirations even and unlabored. Lungs essentially clear to auscultation bilaterally. HEART: Regular rate and rhythm. S1 and S2 heard. ABDOMEN: Soft. Nondistended. Nontender. EXTREMITIES: Normal range of motion. No clubbing or cyanosis. Peripheral pulses intact. No lower extremity edema NEUROLOGIC: Awake and alert. Oriented x 3. ASSESSMENT: Possible episode of unresponsiveness, possible encephalopathy, does not appear to be syncopal episode Hypertension COPD Fibromyalgia History of seizure disorder, currently not on seizure medication Chronic back pain Rheumatoid arthritis Nicotine dependence Daily marijuana use PLAN: Obtain EKG Obtain 2D echo to assess cardiac structure and function Continue telemetry monitoring Neurology following Smoking cessation recommended Abstinence from marijuana recommended If EKG and echo are normal, patient may be discharged from a cardiac standpoint Nurse practitioner note has been reviewed by physician. Signing provider agrees with the documented findings, assessment, and plan of care. 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 IBS, cellulitis of the chin, degenerative disc disease History of Any Multi-Drug Resistant Organisms: MRSA Date of last positivie culture/infection: 07/2016 MDRO Source:: chin Past Surgical History: Section, Cholecystectomy, Hysterectomy, Tubal Ligation Additional Past Surgical History / Comment(s): oral surgery . Pancreas biopsy May 2015. Past Anesthesia/Blood Transfusion Reactions: No Reported Reaction Past Psychological History: ADD/ADHD, Anxiety, Bipolar, Depression Additional Psychological History / Comment(s): pt states borderline personality disorder diagnosed around 2010 Smoking Status: Current every day smoker Past Alcohol Use History: None Reported Additional Past Alcohol Use History / Comment(s): pt states she up to 3.5 to 4 packs/day now down to 3/day Past Drug Use History: Marijuana Additional Drug Use History / Comment(s): Says she occasionally has edible marijuana- a couple times within the last year. - Past Family History Father Family Medical History: No Reported History Additional Family Medical History / Comment(s): ADOPTED Medications and Allergies Home Medications Medication Instructions Recorded Confirmed Type Ipratropium/Albuterol Sulfate 2 puff INHALATION RT-BID 07/26/15 12/05/20 History [Combivent Respimat Inhaler] Spironolactone [Aldactone] 25 mg PO DAILY 02/05/17 12/05/20 History QUEtiapine [SEROquel] 100 mg PO HS 02/25/19 12/05/20 History Citalopram Hydrobromide [CeleXA] 40 mg PO DAILY 06/12/19 12/05/20 History Albuterol Sulfate [Proair Hfa] 1 - 2 puff INHALATION RT-QID PRN 01/01/20 12/05/20 History oxyCODONE-APAP 7.5-325MG [Percocet 1 tab PO TID PRN 01/01/20 12/05/20 History 7.5-325 mg] Carvedilol [Coreg] 25 mg PO BID 05/28/20 12/05/20 History Dicyclomine [Bentyl] 10 mg PO QID PRN 05/28/20 12/05/20 History Allergies Allergy/AdvReac Type Severity Reaction Status Date / Time adhesive Allergy Rash/Hives Verified 12/05/20 06:53 amoxicillin Allergy Anaphylaxis Verified 12/05/20 06:53 azithromycin [From Zithromax] Allergy Anaphylaxis Verified 12/05/20 06:53 cephalexin monohydrate Allergy Anaphylaxis Verified 12/05/20 06:53 [From Keflex] ciprofloxacin Allergy Anaphylaxis Verified 12/05/20 06:53 clindamycin Allergy Anaphylaxis Verified 12/05/20 06:53 Iodinated Contrast Media Allergy Swelling Verified 12/05/20 06:53 [Iodinated Contrast- Oral and IV Dye] levofloxacin [From Levaquin] Allergy Rash/Hives Verified 12/05/20 06:53 naproxen Allergy Anaphylaxis Verified 12/05/20 06:53 NSAIDS (Non-Steroidal Allergy Rash/Hives Verified 12/05/20 06:53 Anti-Inflamma shellfish derived Allergy Anaphylaxis Verified 12/05/20 06:53 Sulfa (Sulfonamide Allergy Anaphylaxis Verified 12/05/20 06:53 Antibiotics) sulfamethoxazole Allergy Anaphylaxis Verified 12/05/20 06:53 [From Bactrim] tramadol Allergy Unknown Verified 12/05/20 06:53 trimethoprim [From Bactrim] Allergy Anaphylaxis Verified 12/05/20 06:53 Physical Exam Vitals: Vital Signs Temp Pulse Pulse Resp BP BP Pulse Ox 12/05/20 05:40 86 18 153/94 95 12/05/20 05:17 75 16 131/85 96 12/05/20 02:34 85 12/05/20 01:53 88 12/05/20 01:05 97.4 F L 90 18 167/91 93 L Intake and Output 12/04/20 12/05/20 12/05/20 22:59 06:59 14:59 Intake Total 240 Balance 240 Intake: Oral 240 Other: # Voids 1 Weight 87.09 kg Results 12/05/20 02:02 12/05/20 07:23 Cardiac Enzymes 12/05/20 12/05/20 Range/Units 02:02 02:02 AST 23 (14-36) U/L Troponin I <0.012 (0.000-0.034) ng/mL Coagulation 12/05/20 Range/Units 02:02 PT 10.5 (9.0-12.0) sec APTT 23.8 (22.0-30.0) sec CBC 12/05/20 Range/Units 02:02 WBC 8.6 (3.8-10.6) k/uL RBC 5.22 (3.80-5.40) m/uL Hgb 13.7 (11.4-16.0) gm/dL Hct 45.2 (34.0-46.0) % Plt Count 328 (150-450) k/uL Comprehensive Metabolic Panel 12/05/20 12/05/20 Range/Units 02:02 07:23 Sodium 138 139 (137-145) mmol/L Potassium 4.4 4.4 (3.5-5.1) mmol/L Chloride 96 L 100 (98-107) mmol/L Carbon Dioxide 36 H 29 (22-30) mmol/L BUN 20 H 19 H (7-17) mg/dL Creatinine 0.85 0.70 (0.52-1.04) mg/dL Glucose 115 H 190 H (74-99) mg/dL Calcium 9.2 8.5 (8.4-10.2) mg/dL AST 23 (14-36) U/L ALT 17 (4-34) U/L Alkaline Phosphatase 98 (38-126) U/L Total Protein 7.4 (6.3-8.2) g/dL Albumin 4.5 (3.5-5.0) g/dL Current Medications Generic Name Dose Route Start Last Admin Trade Name Freq PRN Reason Stop Dose Admin Albuterol Sulfate 2 puff 12/05/20 08:34 Albuterol Hfa Inhaler INHALATION RT-QID PRN Shortness Of Breath Albuterol/Ipratropium 3 ml 12/05/20 08:00 12/05/20 11:10 Ipratropium-Albuterol 3 Ml Neb INHALATION Not Given RT-QID CAMERON Aspirin 325 mg 12/06/20 09:00 Aspirin 325 Mg Tab PO DAILY CAMERON Carvedilol 25 mg 12/05/20 09:00 12/05/20 10:01 Carvedilol 12.5 Mg Tab PO 25 mg BID CAMERON Administration Citalopram Hydrobromide 40 mg 12/05/20 09:00 12/05/20 10:01 Citalopram Hydrobromide 20 Mg Tab PO 40 mg DAILY CAMERON Administration Dicyclomine HCl 10 mg 12/05/20 08:34 Dicyclomine 10 Mg Cap PO QID PRN IBS Famotidine 20 mg 12/05/20 09:00 12/05/20 10:01 Famotidine 20 Mg/2 Ml Vial IV 20 mg Q12HR CAMERON Administration Heparin Sodium (Porcine) 5,000 unit 12/05/20 09:00 12/05/20 10:01 Heparin Sodium,Porcine/Pf 5,000 Unit/0.5 Ml Syringe SQ 5,000 unit Q12HR CAMERON Administration Sodium Chloride 1,000 mls @ 100 mls/hr 12/05/20 04:45 12/05/20 06:10 Saline 0.9% IV 100 mls/hr .Q10H CAMERON Administration Oxycodone/Acetaminophen 1 each 12/05/20 08:34 12/05/20 11:47 Oxycodone-Apap 7.5-325mg 1 Each Tab PO 1 each TID PRN Administration Pain Prednisone 30 mg 12/05/20 09:00 12/05/20 10:01 Prednisone 10 Mg Tab PO 30 mg DAILY CAMERON Administration Quetiapine Fumarate 100 mg 12/05/20 21:00 Quetiapine 100 Mg Tab PO HS CAMERON Spironolactone 25 mg 12/05/20 09:00 12/05/20 10:01 Spironolactone 25 Mg Tab PO 25 mg DAILY CAMERON Administration Intake and Output 12/04/20 12/05/20 12/05/20 22:59 06:59 14:59 Intake Total 240 Balance 240 Intake: Oral 240 Other: # Voids 1 Weight 87.09 kg 12/05/20 02:02 12/05/20 07:23
[2020-12-05 12:56] LABS: Glucose,Whole Blood 171 mg/dL (75-99)
[2020-12-05 14:34] LABS: Hemoglobin A1C 6.1 % (4.0-6.0)
[2020-12-05 15:00] VITALS: RESP 20
[2020-12-05 15:12] LABS: Folate, Serum 8.4 ng/mL
[2020-12-05 17:11] LABS: Glucose,Whole Blood 180 mg/dL (75-99)
[2020-12-05] MEDS: INSULIN ASPART (NovoLOG) 100 UNIT/ML VIAL SQ SCH ×2 (17:11→20:15)
[2020-12-05 20:10] LABS: Glucose,Whole Blood 253 mg/dL (75-99)
[2020-12-05] MEDS ORDERED: QUEtiapine 100 MG TAB PO SCH (21:00)
[2020-12-06 06:09] LABS: Glucose,Whole Blood 123 mg/dL (75-99)
[2020-12-06] MEDS: IPRATROPIUM-ALBUTEROL 3 ML NEB INHALATION SCH ×2 (07:33→11:05)
[2020-12-06] MEDS: INSULIN ASPART (NovoLOG) 100 UNIT/ML VIAL SQ SCH ×2 (08:39→12:45)
[2020-12-06] MEDS: CITALOPRAM HYDROBROMIDE 20 MG TAB PO SCH (09:00)
[2020-12-06] MEDS ORDERED: ASPIRIN 81 MG PO SCH (09:00)
[2020-12-06] MEDS ORDERED: ASPIRIN 325 MG TAB PO SCH (09:00)
[2020-12-06] MEDS: SPIRONOLACTONE 25 MG TAB PO SCH (09:00)
[2020-12-06] MEDS: FAMOTIDINE 20 MG/2 ML VIAL IV SCH (09:01)
[2020-12-06] MEDS: carvediloL 12.5 MG TAB PO SCH (09:01)
[2020-12-06] MEDS: HEPARIN SODIUM,PORCINE/PF 5,000 UNIT/0.5 ML SYRINGE SQ SCH (09:01)
[2020-12-06] MEDS: predniSONE 10 MG TAB PO SCH (09:01)
[2020-12-06] MEDS: SODIUM CHLORIDE 0.9% 1,000 ML IV SCH ×2 (09:02→12:45)
[2020-12-06 09:12] VITALS: TEMP 98.2
[2020-12-06] MEDS ORDERED: diphenhydrAMINE 50 MG CAP PO STA (09:13)
[2020-12-06] MEDS ORDERED: diphenhydrAMINE 25 MG CAP ONE (09:21)
[2020-12-06] MEDS ORDERED: diphenhydrAMINE 25 MG CAP PO PRN (09:22)
[2020-12-06] MEDS: oxyCODONE-APAP 7.5-325MG 1 EACH TAB PO PRN (09:23)
[2020-12-06 10:14] LABS: Chol/HDL Ratio 3.69
[2020-12-06] MEDS ORDERED: lisinopriL 10 MG TAB PO SCH (10:30)
--- NOTE | 2020-12-06 10:47 | ECHOF ---
Referral Reason:LV function MEASUREMENTS -------- HEIGHT: 152.4 cm WEIGHT: 87.1 kg BP: IVSd: 1.2 cm (0.6 - 1.1) LVIDd: 3.6 cm (3.9 - 5.3) LVPWd: 1.2 cm (0.6 - 1.1) IVSs: 1.8 cm LVIDs: 1.7 cm LVPWs: 2.1 cm MV E Phuc: 0.82 m/s MV DecT: 229 ms MV A Phuc: 0.80 m/s MV E/A Ratio: 1.03 RAP: 5.00 mmHg RVSP: 10.57 mmHg FINDINGS -------- This was a technically difficult study with suboptimal views. The left ventricular size is normal. There is mild concentric left ventricular hypertrophy. Overa ll left ventricular systolic function is normal with, an EF between 55 - 60 %. The RV was not well visualized. The left atrial size is normal. The right atrial size is normal. Lumason used The aortic valve was not well visualized. The mitral valve was not well visualized. There is trace mitral regurgitation. The tricuspid valve appears structurally normal. Trace tricuspid regurgitation present. Right barry tricular systolic pressure is normal at < 35 mmHg. There is no pulmonic regurgitation present. The aortic root size is normal. IVC Not well visulized. There is no pericardial effusion. CONCLUSIONS -------- 1. The left ventricular size is normal. 2. There is mild concentric left ventricular hypertrophy. 3. Overall left ventricular systolic function is normal with, an EF between 55 - 60 %. 4. There is trace mitral regurgitation. 5. Trace tricuspid regurgitation present. 6. There is no pericardial effusion. BACK STAYER: Kinga Eaton, [facility]
[2020-12-06 11:35] LABS: Glucose,Whole Blood 133 mg/dL (75-99)
[2020-12-06 12:51] VITALS: PULSE 80
--- NOTE | 2020-12-06 13:36 | P.PN ---
Subjective Progress Note Date: 12/06/20 HISTORY OF PRESENT ILLNESS: This is a 45-year-old female with a past medical history significant for hypertension, COPD, nicotine dependence, marijuana use, fibromyalgia, chronic back pain, rheumatoid arthritis, and seizures. Patient does not follow with a stores clerk. We have been asked to see the patient in consultation for an episode of unresponsiveness. Patient examined at the bedside. Patient states she was feeling in her normal state of health yesterday. She got down on the floor in the living room to play with her cat. Apparently, the patients daughter walked into the living room and woke the patient up and asked her why she was sleeping. Patient was unaware that she had fallen asleep or passed out. She denies biting her tongue. She denies loss of bowel or bladder. She states she felt confused when her daughter woke her up. Patient also reported some minimal left sided weakness which has resolved. Patient denies any chest pain or pressure. She denies any shortness of breath. Telemetry revealed sinus mechanism Chest xray negative for acute cardiopulmonary process Laboratory data: WBC 8.6. Hemoglobin 13.7. Platelet count 328. Sodium 139. Potassium 4.4. BUN 19. Creatinine 0.70. Troponin negative 1. BNP 38. Current home cardiac medications include Coreg 25 mg twice a day and Aldactone 25 mg daily Most recent echocardiogram obtained in 2014 revealed ejection fraction 55-60%, mild mitral regurgitation, and mild tricuspid regurgitation Patient underwent a dobutamine stress test in 2014 which was negative for ischemia. 12/06/2020 Patient examined this morning at the bedside. Patient denies shortness of breath. She denies chest pain or pressure. No further episodes of unresponsiveness. EKG reviewed with no signs of acute ischemia. Echocardiogram reveals ejection fraction 55-60%, trace mitral regurgitation, and trace tricuspid regurgitation. Patient's blood pressures are elevated with a systolic in the 180s. PHYSICAL EXAM: VITAL SIGNS: Reviewed. GENERAL: Well-developed in no acute distress. HEENT: Head is normocephalic. Pupils are equal, round. Sclerae anicteric. Mucous membranes of the mouth are moist. Neck supple. No JVD or thyromegaly LUNGS: Respirations even and unlabored. Lungs essentially clear to auscultation bilaterally. HEART: Regular rate and rhythm. S1 and S2 heard. ABDOMEN: Soft. Nondistended. Nontender. EXTREMITIES: Normal range of motion. No clubbing or cyanosis. Peripheral pulses intact. No lower extremity edema NEUROLOGIC: Awake and alert. Oriented x 3. ASSESSMENT: Possible episode of unresponsiveness, possible encephalopathy, does not appear to be syncopal episode Hypertension COPD Fibromyalgia History of seizure disorder, currently not on seizure medication Chronic back pain Rheumatoid arthritis Nicotine dependence Daily marijuana use PLAN: Continue current cardiac medications Begin lisinopril 10 mg daily for optimal blood pressure control. Continue to monitor blood pressure and telemetry Smoking cessation recommended Abstinence from marijuana recommended Patient may be discharged home today from a cardiac standpoint and follow up on an outpatient basis Nurse practitioner note has been reviewed by physician. Signing provider agrees with the documented findings, assessment, and plan of care. Objective - Vital Signs Vital signs: Vital Signs Temp 98.2 F 12/06/20 12:51 Pulse 80 12/06/20 12:51 Resp 20 12/06/20 12:51 BP 213/104 12/06/20 12:51 Pulse Ox 98 12/06/20 12:51 Intake & Output 12/05/20 12/06/20 12/06/20 18:59 06:59 18:59 Intake Total 702 0 Balance 702 0 Weight 89 kg Intake: Oral 702 0 Other: # Voids 2 1 - Labs CBC & Chem 7: 12/05/20 02:02 12/05/20 07:23 Labs: Abnormal Lab Results - Last 24 Hours (Table) 12/05/20 12/05/20 12/05/20 Range/Units 02:02 07:23 17:10 POC Glucose (mg/dL) 180 H (75-99) mg/dL Hemoglobin A1c 6.1 H (4.0-6.0) % Triglycerides 275.0 H (0.0-149.0) mg/dL VLDL Cholesterol, Calc 55.00 H (5.00-40.00) mg/dL 12/05/20 12/06/20 12/06/20 Range/Units 20:08 06:08 11:33 POC Glucose (mg/dL) 253 H 123 H 133 H (75-99) mg/dL Hemoglobin A1c (4.0-6.0) % Triglycerides (0.0-149.0) mg/dL VLDL Cholesterol, Calc (5.00-40.00) mg/dL
--- NOTE | 2020-12-06 14:44 | P.PN ---
Subjective Please consider this note as a discharge summary. Please note patient was not discharged but she left AGAINST MEDICAL ADVICE This is a pleasant 45 years old female with past medical history of heart failure, COPD, CVA/TIA, fibromyalgia, hypertension, osteoarthritis, rheumatoid arthritis, seizure disorder, pancreatic fibrosis, chronic back pain, migraines, chronic abdominal pain, kidney stones, irritable bowel syndrome, degenerative disc disease, bipolar and depression, also she smokes cigarettes and marijuana. She has history of hysterectomy Patient states that she came to the hospital because she was on the floor, she could not remember what happened, the last thing she remembers she was playing with her cat however she was feeling off for today, and she was told to the same about her mother Currently patient looks slightly drowsy but she just woke up from sleep. 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 -patient states that she has history of TIA about 8 months ago she does not remember what she had at that time but she thinks something related to her speech -Also patient says that she has history of seizure and she was on Keppra and Dilantin which was stopped about 3-4 years ago by her doctor and currently she is not taking any seizure medication, she states that she has seizure on and off and her last seizure was more than one year ago. patient also complains from chronic upper and lower back pain related to her fibromyalgia since 2006, she follows up with Dr. Wick as an outpatient -She has history of COPD and she follows up with Dr. Su, she uses 2 L of oxygen at night but not CPAP/BiPAP machine If and she smokes about 2-3 cigarettes per day, cutting down from 3 pack per day before. Denies alcohol or illicit tracts except marijuana for her back pain. -She has history of depression since teenager on Celexa and history of bipolar disorder on Seroquel however she denies active signs and symptoms of depression like no hopelessness/hopelessness. Patient denies suicidal ideation, no homicidal ideation. No hallucination or delusions Vitals are stable, blood pressure slightly elevated 153/94. Labs including CBC, INR, BMP, liver enzymes are unremarkable. Troponin is negative less than 0.012. ProBNP is normal at 38. Coronavirus not detected. Chest x-ray: No acute process Brain computed tomography scan: No acute process In the emergency room patient started on aspirin 325 mg, and started on some Medrol 60 mg every 6 hours on normal saline at 100 mL/h after 1 bolus of 1 of NS I tried to call the family/ on [phone] and the line was not working stating this number, except Ziyad currently. also I Called [phone] with no answer but I could not leave a message. Also I called the number [address] me for her [phone] but no bloody picked up either and I could not leave a message 12/06/2020 Patient today is awake and alert and oriented to time, place and person, no dizziness however she's been complaining of from headache usually her response to Benadryl and she thinks this is the case now. No confusion, no dizziness Patient blood pressure is 213/104 this afternoon. Hemodynamically stable however she is significantly hypertensive Theoretical Physicist on the case discontinue 30 mg of prednisone, and discontinue IV fluids for blood pressure is elevated. After rounds and because of high blood pressure I called the bedside nurse Gina, she told me pt is aware of her high blood pressure and despite that she does not want to stay in the hospital and she wants to leave AMA, actually as I was talking to the nurse she told me she is leaving the right now. I tried to give her some blood pressure medication before she leaves. the nurse stated that the patient refusing any more medication and just wants to leave. The risks of leaving AMA are explained for the patient by staff. Patient left before I have a chance to come and talk to her again. Based upon my evaluation patient has capacity to make medical decision. Medical team cannot hold her against her will Objective - Vital Signs Vital signs: Vital Signs Temp 98.2 F 12/06/20 12:51 Pulse 80 12/06/20 12:51 Resp 20 12/06/20 12:51 BP 213/104 12/06/20 12:51 Pulse Ox 98 12/06/20 12:51 Intake & Output 12/05/20 12/06/20 12/06/20 18:59 06:59 18:59 Intake Total 702 0 Balance 702 0 Weight 89 kg Intake: Oral 702 0 Other: # Voids 2 1 - Exam GENERAL: The patient is alert and oriented x3, not in any acute distress. Well developed, well nourished. HEENT: Pupils are round and equally reacting to light. EOMI. No scleral icterus. No conjunctival pallor. Normocephalic, atraumatic. No pharyngeal erythema. No thyromegaly. CARDIOVASCULAR: S1 and S2 present. No murmurs, rubs, or gallops. PULMONARY: Chest is clear to auscultation, no wheezing or crackles. ABDOMEN: Soft, nontender, nondistended, normoactive bowel sounds. No palpable organomegaly. MUSCULOSKELETAL: No joint swelling or deformity. EXTREMITIES: No cyanosis, clubbing, or pedal edema. NEUROLOGICAL: Gross neurological examination did not reveal any focal deficits. SKIN: No rashes. no petechiae. - Labs CBC & Chem 7: 12/05/20 02:02 12/05/20 07:23 Labs: Abnormal Lab Results - Last 24 Hours (Table) 12/05/20 12/05/20 12/05/20 Range/Units 02:02 07:23 17:10 POC Glucose (mg/dL) 180 H (75-99) mg/dL Hemoglobin A1c 6.1 H (4.0-6.0) % Triglycerides 275.0 H (0.0-149.0) mg/dL VLDL Cholesterol, Calc 55.00 H (5.00-40.00) mg/dL 12/05/20 12/06/20 12/06/20 Range/Units 20:08 06:08 11:33 POC Glucose (mg/dL) 253 H 123 H 133 H (75-99) mg/dL Hemoglobin A1c (4.0-6.0) % Triglycerides (0.0-149.0) mg/dL VLDL Cholesterol, Calc (5.00-40.00) mg/dL Assessment and Plan Assessment: Transient period of altered mental status, rule out seizure, rule out syncope Hypertension, urgency None compliance, patient also leaving AMA. Rheumatoid arthritis History of osteoarthritis Chronic heart failure per documentation COPD, with mild exacerbationlgia History of rheumatoid arthritis History of seizure disorder History of pancreatic fibrosis Chronic back pain History of migraine Chronic abdominal pain History of kidney stones Irritable bowel syndrome Degenerative disc disease History of bipolar and depression Nicotine dependence Substance abuse with marijuana Obesity with BMI of 37.5 Plan: Patient leaving AGAINST MEDICAL ADVICE. Patient has capacity to make medical decision. Patient left before I have a chance to come back and
[2020-12-06 16:44] VITALS: BP 216/113
[2020-12-06] MEDS ORDERED: FAMOTIDINE 20 MG TAB PO SCH (21:00)
== END 2020-12-06 14:40 | disposition left against medical advice (07) ==
LOC: EC 01:04 → 3SCARD 04:44 → INTOOBSV 04:44 → UNDODISIN 12-06 14:40
PROVIDERS: ADMIT Hospitalist; ATTEND Hospitalist
DX: R41.82 Altered mental status, unspecified (principal); I11.0 Hypertensive heart disease with heart failure; I50.9 Heart failure, unspecified; J44.1 Chronic obstructive pulmonary disease with (acute) exacerbation; R09.02 Hypoxemia; G40.909 Epilepsy, unspecified, not intractable, without status epilepticus; Z20.822 Contact with and (suspected) exposure to COVID-19; M06.9 Rheumatoid arthritis, unspecified; M19.90 Unspecified osteoarthritis, unspecified site; F12.90 Cannabis use, unspecified, uncomplicated; E66.9 Obesity, unspecified; Z68.37 Body mass index [BMI] 37.0-37.9, adult; R51.9 Headache, unspecified; R53.1 Weakness; F17.210 Nicotine dependence, cigarettes, uncomplicated; K86.89 Other specified diseases of pancreas; M79.7 Fibromyalgia; G89.29 Other chronic pain; M54.5 Low back pain; R10.9 Unspecified abdominal pain; K58.9 Irritable bowel syndrome, unspecified; R20.0 Anesthesia of skin; F31.9 Bipolar disorder, unspecified; F60.3 Borderline personality disorder; F41.9 Anxiety disorder, unspecified; F90.9 Attention-deficit hyperactivity disorder, unspecified type; G56.00 Carpal tunnel syndrome, unspecified upper limb; Z79.899 Other long term (current) drug therapy; Z91.048 Other nonmedicinal substance allergy status; Z88.0 Allergy status to penicillin; Z88.1 Allergy status to other antibiotic agents; Z91.041 Radiographic dye allergy status; Z88.6 Allergy status to analgesic agent; Z91.013 Allergy to seafood; Z88.2 Allergy status to sulfonamides; Z88.5 Allergy status to narcotic agent; Z90.710 Acquired absence of both cervix and uterus; Z90.49 Acquired absence of other specified parts of digestive tract; Z87.442 Personal history of urinary calculi; Z87.01 Personal history of pneumonia (recurrent); Z86.73 Personal history of transient ischemic attack (TIA), and cerebral infarction without residual deficits; Z86.69 Personal history of other diseases of the nervous system and sense organs; Z86.14 Personal history of Methicillin resistant Staphylococcus aureus infection
CPT/HCPCS: 96376 ×2; 96361 ×3; 96372 ×2; 96374; 96375; 99285; 36415; 94640; 97162; 97165; 92610; 84439; 83880; 80061; 80053; 80048; 84443; 82607; 82550; 82746; 83605; 83735; 84484; 85025; 85610; 85730; 84703; 84702; 83036; 87635; 71046; 70450; G0378 ×2; C8929; J2930; J7512 ×2; J1170; Q9950; J1644 ×2; 93306

== ENCOUNTER 2021-02-02 22:21 | Emergency (ER) | payer MEDICARE ==
[2021-02-02] MEDS ORDERED: SODIUM CHLORIDE 0.9% 500 ML 500 ML IV ONE (23:59)
[2021-02-02] MEDS ORDERED: PHENAZOPYRIDINE 200 MG TAB PO STA (23:59)
[2021-02-02] MEDS ORDERED: ONDANSETRON 4 MG/2 ML VIAL IVP STA (23:59)
[2021-02-02] MEDS ORDERED: MORPHINE SULFATE 4 MG/ML SYRINGE IVP STA (23:59)
[2021-02-03 00:13] LABS: Amorphous Sediment,Urine Occasional /hpf; Appearance,Urine Clear (Clear); Bacteria,Urine Rare /hpf; Bilirubin,Urine Negative (Negative); Blood,Urine Large (Negative); Color,Urine Yellow; Glucose,Urine (UA) Negative (Negative); Ketones,Urine Negative (Negative); Leukocyte Esterase,Urine Small (Negative); Mucus,Urine Few /hpf; Nitrite,Urine Negative (Negative); Protein,Urine 2+ (Negative); RBC,Urine 36 /hpf (0-5); Specific Gravity,Urine 1.024 (1.001-1.035); Squamous Epithelial Cell,Urine 3 /hpf (0-4); Urobilinogen,Urine <2.0 mg/dL (<2.0); WBC,Urine 11 /hpf (0-5)
[2021-02-03 01:11] LABS: Basophils % (A) 0 %; Eosinophils # (A) 0.2 k/uL (0-0.7); Eosinophils % (A) 3 %; HCT 44.4 % (34.0-46.0); HGB 14.1 gm/dL (11.4-16.0); Lymphocytes # (A) 3.5 k/uL (1.0-4.8); Lymphocytes % (A) 36 %; MCH 27.9 pg (25.0-35.0); MCHC 31.7 g/dL (31.0-37.0); Mean Platelet Volume 7.3; Monocytes # (A) 0.5 k/uL (0-1.0); Monocytes % (A) 5 %; Neutrophils # (A) 5.4 k/uL (1.3-7.7); Neutrophils % (A) 55 %; Platelet Count 306 k/uL (150-450); RBC 5.04 m/uL (3.80-5.40); RDW 12.7 % (11.5-15.5); WBC 9.8 k/uL (3.8-10.6)
[2021-02-03 01:15] LABS: ALT 29 U/L (4-34); AST 33 U/L (14-36); African American GFR (CKD) >90 (>60 ml/min/1.73 sqM); Albumin 4.4 g/dL (3.5-5.0); Alkaline Phosphatase 123 U/L (38-126); Blood Urea Nitrogen 11 mg/dL (7-17); Calcium 9.5 mg/dL (8.4-10.2); Chloride 94 mmol/L (98-107); Glucose 116 mg/dL (74-99); Non-African American GFR(CKD) >90 (>60 ml/min/1.73 sqM); Potassium 4.5 mmol/L (3.5-5.1); Sodium 140 mmol/L (137-145); Total Bilirubin 0.2 mg/dL (0.2-1.3); Total Protein 7.3 g/dL (6.3-8.2)
[2021-02-03 01:21] LABS: Anion Gap 9 mmol/L
[2021-02-03 01:25] LABS: Carbon Dioxide 37 mmol/L (22-30)
[2021-02-03] MEDS ORDERED: MORPHINE SULFATE 4 MG/ML SYRINGE IVP STA (01:34)
--- NOTE | 2021-02-03 01:44 | ED ---
General Adult HPI - General Chief complaint: Urogenital Stated complaint: UTI/Back pain Time Seen by Provider: 02/02/21 23:28 Source: patient Mode of arrival: ambulatory Limitations: no limitations - History of Present Illness Initial comments: 46-old female patient currently being treated for UTI with Macrobid presents to the emergency department today for evaluation of lower abdominal pressure and back pain. Patient states symptoms have been going on for the last few days. Denies any known fever but states her temperature generally runs around 96.9F. She denies any blood in her urine. Denies nausea or vomiting. Denies any constipation or diarrhea. Does take Percocet at home states has not been helping with the pain. Patient denies any recent rash, cough, shortness of breath, chest pain, diarrhea, constipation, numbness, tingling, dizziness, weakness, headache, visual changes, or any other complaints. - Related Data Home Medications Medication Instructions Recorded Confirmed Ipratropium/Albuterol Sulfate 2 puff INHALATION RT-BID 07/26/15 12/05/20 [Combivent Respimat Inhaler] Spironolactone [Aldactone] 25 mg PO DAILY 02/05/17 12/05/20 QUEtiapine [SEROquel] 100 mg PO HS 02/25/19 12/05/20 Citalopram Hydrobromide [CeleXA] 40 mg PO DAILY 06/12/19 12/05/20 Albuterol Sulfate [Proair Hfa] 1 - 2 puff INHALATION RT-QID PRN 01/01/20 12/05/20 oxyCODONE-APAP 7.5-325MG [Percocet 1 tab PO TID PRN 01/01/20 12/05/20 7.5-325 mg] Carvedilol [Coreg] 25 mg PO BID 05/28/20 12/05/20 Dicyclomine [Bentyl] 10 mg PO QID PRN 05/28/20 12/05/20 Allergies Allergy/AdvReac Type Severity Reaction Status Date / Time adhesive Allergy Rash/Hives Verified 02/02/21 22:45 amoxicillin Allergy Anaphylaxis Verified 02/02/21 22:45 azithromycin [From Zithromax] Allergy Anaphylaxis Verified 02/02/21 22:45 cephalexin monohydrate Allergy Anaphylaxis Verified 02/02/21 22:45 [From Keflex] ciprofloxacin Allergy Anaphylaxis Verified 02/02/21 22:45 clindamycin Allergy Anaphylaxis Verified 02/02/21 22:45 Iodinated Contrast Media Allergy Swelling Verified 02/02/21 22:45 [Iodinated Contrast- Oral and IV Dye] levofloxacin [From Levaquin] Allergy Rash/Hives Verified 02/02/21 22:45 naproxen Allergy Anaphylaxis Verified 02/02/21 22:45 NSAIDS (Non-Steroidal Allergy Rash/Hives Verified 02/02/21 22:45 Anti-Inflamma shellfish derived Allergy Anaphylaxis Verified 02/02/21 22:45 Sulfa (Sulfonamide Allergy Anaphylaxis Verified 02/02/21 22:45 Antibiotics) sulfamethoxazole Allergy Anaphylaxis Verified 02/02/21 22:45 [From Bactrim] tramadol Allergy Unknown Verified 02/02/21 22:45 trimethoprim [From Bactrim] Allergy Anaphylaxis Verified 02/02/21 22:45 Review of Systems ROS Statement: Those systems with pertinent positive or pertinent negative responses have been documented in the HPI. ROS Other: All systems not noted in ROS Statement are negative. 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 IBS, cellulitis of the chin, History of Any Multi-Drug Resistant Organisms: MRSA Date of last positivie culture/infection: 07/2016 MDRO Source:: chin Past Surgical History: Section, Cholecystectomy, Hysterectomy, Tubal Ligation Additional Past Surgical History / Comment(s): oral surgery . Pancreas biopsy May 2015. Past Anesthesia/Blood Transfusion Reactions: No Reported Reaction Past Psychological History: ADD/ADHD, Anxiety, Bipolar, Depression Smoking Status: Current every day smoker Past Alcohol Use History: None Reported Past Drug Use History: Marijuana - Past Family History Father Family Medical History: No Reported History Additional Family Medical History / Comment(s): ADOPTED General Exam Limitations: no limitations General appearance: alert, in no apparent distress, other (This is a well- developed, well-nourished adult female patient in no acute distress. Vital signs upon presentation temperature 98.4F, pulse 82, respirations 17, blood pressure 169/108, pulse ox 95% on room air.) ENT exam: Present: normal exam, normal oropharynx, mucous membranes moist Respiratory exam: Present: normal lung sounds bilaterally. Absent: respiratory distress, wheezes, rales, rhonchi, stridor Cardiovascular Exam: Present: regular rate, normal rhythm, normal heart sounds. Absent: systolic murmur, diastolic murmur, rubs, gallop, clicks GI/Abdominal exam: Present: soft, tenderness (Suprapubic), normal bowel sounds. Absent: distended, guarding, rebound, rigid Back exam: Present: normal inspection, CVA tenderness (R), CVA tenderness (L) Neurological exam: Present: alert, oriented X3, CN II-XII intact Psychiatric exam: Present: normal affect, normal mood Skin exam: Present: warm, dry, intact, normal color. Absent: rash Course Vital Signs 02/02/21 02/03/21 22:42 02:23 Temperature 98.4 F 98.3 F Pulse Rate 82 85 Respiratory 17 16 Rate Blood Pressure 169/108 156/89 O2 Sat by Pulse 95 93 L Oximetry Medical Decision Making - Medical Decision Making 46-year-old female patient presents to the emergency department today for evaluation of suprapubic pain, back pain. She is currently being treated for UTI with Macrobid. Labs reviewed and did reveal normal white blood cell count. Urinalysis showed 2+ protein, large amount of blood, small leukocyte esterase, 36 red blood cells, 11 white blood cells, occasional sediment, rare bacteria, few mucus. She is afebrile. Patient does wear oxygen at night, oxygen saturati on was 92%. BP is somewhat elevated at the end of visit, she will be taking her nighttime doses of blood pressure medication upon arrival home. She is discharged follow up with the primary care physician for recheck in 1-2 days. Return parameters discussed in detail. She verbalizes understanding and agrees with this plan. Case discussed with my attending Dr. Olivares. - Lab Data Result diagrams: 02/03/21 00:42 02/03/21 00:42 Lab Results 02/02/21 02/03/21 02/03/21 Range/Units 23:30 00:42 00:42 WBC 9.8 (3.8-10.6) k/uL RBC 5.04 (3.80-5.40) m/uL Hgb 14.1 (11.4-16.0) gm/dL Hct 44.4 (34.0-46.0) % MCV 88.0 (80.0-100.0) fL MCH 27.9 (25.0-35.0) pg MCHC 31.7 (31.0-37.0) g/dL RDW 12.7 (11.5-15.5) % Plt Count 306 (150-450) k/uL MPV 7.3 Neutrophils % 55 % Lymphocytes % 36 % Monocytes % 5 % Eosinophils % 3 % Basophils % 0 % Neutrophils # 5.4 (1.3-7.7) k/uL Lymphocytes # 3.5 (1.0-4.8) k/uL Monocytes # 0.5 (0-1.0) k/uL Eosinophils # 0.2 (0-0.7) k/uL Basophils # 0.0 (0-0.2) k/uL Sodium 140 (137-145) mmol/L Potassium 4.5 (3.5-5.1) mmol/L Chloride 94 L (98-107) mmol/L Carbon Dioxide 37 H (22-30) mmol/L Anion Gap 9 mmol/L BUN 11 (7-17) mg/dL Creatinine 0.59 (0.52-1.04) mg/dL Est GFR (CKD-EPI)AfAm >90 (>60 ml/min/1.73 sqM) Est GFR (CKD-EPI)NonAf >90 (>60 ml/min/1.73 sqM) Glucose 116 H (74-99) mg/dL Plasma Lactic Acid Srinivas (0.7-2.0) mmol/L Calcium 9.5 (8.4-10.2) mg/dL Total Bilirubin 0.2 (0.2-1.3) mg/dL AST 33 (14-36) U/L ALT 29 (4-34) U/L Alkaline Phosphatase 123 (38-126) U/L Total Protein 7.3 (6.3-8.2) g/dL Albumin 4.4 (3.5-5.0) g/dL Urine Color Yellow Urine Appearance Clear (Clear) Urine pH 6.0 (5.0-8.0) Ur Specific [place] 1.024 (1.001-1.035) Urine Protein 2+ H (Negative) Urine Glucose (UA) Negative (Negative) Urine Ketones Negative (Negative) Urine Blood Large H (Negative) Urine Nitrite Negative (Negative) Urine Bilirubin Negative (Negative) Urine Urobilinogen <2.0 (<2.0) mg/dL Ur Leukocyte Esterase Small H (Negative) Urine RBC 36 H (0-5) /hpf Urine WBC 11 H (0-5) /hpf Ur Squamous Epith Cells 3 (0-4) /hpf Amorphous Sediment Occasional H (None) /hpf Urine Bacteria Rare H (None) /hpf Urine Mucus Few H (None) /hpf 02/03/21 Range/Units 00:42 WBC (3.8-10.6) k/uL RBC (3.80-5.40) m/uL Hgb (11.4-16.0) gm/dL Hct (34.0-46.0) % MCV (80.0-100.0) fL MCH (25.0-35.0) pg MCHC (31.0-37.0) g/dL RDW (11.5-15.5) % Plt Count (150-450) k/uL MPV Neutrophils % % Lymphocytes % % Monocytes % % Eosinophils % % Basophils % % Neutrophils # (1.3-7.7) k/uL Lymphocytes # (1.0-4.8) k/uL Monocytes # (0-1.0) k/uL Eosinophils # (0-0.7) k/uL Basophils # (0-0.2) k/uL Sodium (137-145) mmol/L Potassium (3.5-5.1) mmol/L Chloride (98-107) mmol/L Carbon Dioxide (22-30) mmol/L Anion Gap mmol/L BUN (7-17) mg/dL Creatinine (0.52-1.04) mg/dL Est GFR (CKD-EPI)AfAm (>60 ml/min/1.73 sqM) Est GFR (CKD-EPI)NonAf (>60 ml/min/1.73 sqM) Glucose (74-99) mg/dL Plasma Lactic Acid Srinivas 1.1 (0.7-2.0) mmol/L Calcium (8.4-10.2) mg/dL Total Bilirubin (0.2-1.3) mg/dL AST (14-36) U/L ALT (4-34) U/L Alkaline Phosphatase (38-126) U/L Total Protein (6.3-8.2) g/dL Albumin (3.5-5.0) g/dL Urine Color Urine Appearance (Clear) Urine pH (5.0-8.0) Ur Specific [place] (1.001-1.035) Urine Protein (Negative) Urine Glucose (UA) (Negative) Urine Ketones (Negative) Urine Blood (Negative) Urine Nitrite (Negative) Urine Bilirubin (Negative) Urine Urobilinogen (<2.0) mg/dL Ur Leukocyte Esterase (Negative) Urine RBC (0-5) /hpf Urine WBC (0-5) /hpf Ur Squamous Epith Cells (0-4) /hpf Amorphous Sediment (None) /hpf Urine Bacteria (None) /hpf Urine Mucus (None) /hpf Disposition Clinical Impression: Back pain, UTI (urinary tract infection) Disposition: HOME SELF-CARE Condition: Good Instructions (If sedation given, give patient instructions): Urinary Tract Infection in Women (ED), Back Pain (ED) Additional Instructions: Follow-up with your primary care physician for recheck in 1-2 days. Return for any new, worsening, or concerning symptoms. Is patient prescribed a controlled substance at d/c from ED?: No Referrals: Kaleb Huston DO [Primary Care Provider] - 1-2 days Time of Disposition: 01:44
[2021-02-03 02:25] VITALS: BP 156/89; PULSE 85; RESP 16; TEMP 98.3
== END 2021-02-03 02:23 | disposition home or self-care (01) ==
LOC: EC 22:21
DX: N39.0 Urinary tract infection, site not specified (principal); I11.0 Hypertensive heart disease with heart failure; I50.9 Heart failure, unspecified; J44.9 Chronic obstructive pulmonary disease, unspecified; K58.9 Irritable bowel syndrome, unspecified; M79.7 Fibromyalgia; G40.909 Epilepsy, unspecified, not intractable, without status epilepticus; M06.9 Rheumatoid arthritis, unspecified; F31.9 Bipolar disorder, unspecified; F41.9 Anxiety disorder, unspecified; G43.909 Migraine, unspecified, not intractable, without status migrainosus; F90.9 Attention-deficit hyperactivity disorder, unspecified type; F12.90 Cannabis use, unspecified, uncomplicated; F17.200 Nicotine dependence, unspecified, uncomplicated; Z86.73 Personal history of transient ischemic attack (TIA), and cerebral infarction without residual deficits; Z87.442 Personal history of urinary calculi; Z79.51 Long term (current) use of inhaled steroids; Z88.1 Allergy status to other antibiotic agents; Z88.2 Allergy status to sulfonamides; Z88.5 Allergy status to narcotic agent; Z88.6 Allergy status to analgesic agent; Z88.8 Allergy status to other drugs, medicaments and biological substances
CPT/HCPCS: 36415; 80053; 83605; 85025; 81001; 87086; 99284; 96374; 96376; 96375 ×2; 96361; J2270; J2405

== ENCOUNTER 2021-02-24 20:24 | Emergency (ER) | payer MEDICARE ==
[2021-02-24 20:55] VITALS: RESP 20; TEMP 98.5
[2021-02-24 21:19] LABS: Appearance,Urine Clear (Clear); Bilirubin,Urine Negative (Negative); Blood,Urine Small (Negative); Color,Urine Yellow; Glucose,Urine (UA) Negative (Negative); Hyaline Casts,Urine 1 /lpf (0-2); Ketones,Urine Negative (Negative); Leukocyte Esterase,Urine Negative (Negative); Mucus,Urine Rare /hpf; Nitrite,Urine Negative (Negative); PH, Urine 6.5 (5.0-8.0); Protein,Urine Negative (Negative); RBC,Urine 25 /hpf (0-5); Specific Gravity,Urine 1.027 (1.001-1.035); Squamous Epithelial Cell,Urine 2 /hpf (0-4); Urobilinogen,Urine <2.0 mg/dL (<2.0); WBC,Urine 3 /hpf (0-5)
[2021-02-24] MEDS ORDERED: MORPHINE SULFATE 4 MG/ML SYRINGE IV STA (22:17)
[2021-02-24] MEDS ORDERED: KETOROLAC 15 MG/ML 1 ML VIAL IVP STA (22:17)
[2021-02-24] MEDS ORDERED: ONDANSETRON 4 MG/2 ML VIAL IVP STA (22:17)
[2021-02-24] MEDS ORDERED: SODIUM CHLORIDE 0.9% 1,000 ML IV STA ×2 (22:17)
--- NOTE | 2021-02-24 22:19 | ED ---
Abdominal Pain HPI - General Chief Complaint: Abdominal Pain Stated Complaint: Abd Pain Time Seen by Provider: 02/24/21 21:15 Source: patient Mode of arrival: ambulatory Limitations: no limitations - Related Data Home Medications Medication Instructions Recorded Confirmed Spironolactone [Aldactone] 25 mg PO DAILY 02/05/17 02/24/21 QUEtiapine [SEROquel] 150 mg PO HS 02/25/19 02/24/21 Citalopram Hydrobromide [CeleXA] 40 mg PO DAILY 06/12/19 02/24/21 oxyCODONE-APAP 7.5-325MG [Percocet 1 tab PO TID 01/01/20 02/24/21 7.5-325 mg] Dicyclomine [Bentyl] 10 mg PO TID 05/28/20 02/24/21 diphenhydrAMINE [Benadryl] 50 mg PO TID 02/24/21 02/24/21 levETIRAcetam [Keppra] 500 mg PO DAILY 02/24/21 02/24/21 rOPINIRole HCL [Requip] 0.25 mg PO HS 02/24/21 02/24/21 Allergies Allergy/AdvReac Type Severity Reaction Status Date / Time adhesive Allergy Rash/Hives Verified 02/24/21 22:09 amoxicillin Allergy Anaphylaxis Verified 02/24/21 22:09 azithromycin [From Zithromax] Allergy Anaphylaxis Verified 02/24/21 22:09 cephalexin monohydrate Allergy Anaphylaxis Verified 02/24/21 22:09 [From Keflex] ciprofloxacin Allergy Anaphylaxis Verified 02/24/21 22:09 clindamycin Allergy Anaphylaxis Verified 02/24/21 22:09 Iodinated Contrast Media Allergy Swelling Verified 02/24/21 22:09 [Iodinated Contrast- Oral and IV Dye] levofloxacin [From Levaquin] Allergy Rash/Hives Verified 02/24/21 22:09 naproxen Allergy Anaphylaxis Verified 02/24/21 22:09 NSAIDS (Non-Steroidal Allergy Rash/Hives Verified 02/24/21 22:09 Anti-Inflamma shellfish derived Allergy Anaphylaxis Verified 02/24/21 22:09 Sulfa (Sulfonamide Allergy Anaphylaxis Verified 02/24/21 22:09 Antibiotics) sulfamethoxazole Allergy Anaphylaxis Verified 02/24/21 22:09 [From Bactrim] tramadol Allergy Unknown Verified 02/24/21 22:09 trimethoprim [From Bactrim] Allergy Anaphylaxis Verified 02/24/21 22:09 Review of Systems ROS Statement: Those systems with pertinent positive or pertinent negative responses have been documented in the HPI. ROS Other: All systems not noted in ROS Statement are negative. 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 IBS, cellulitis of the chin, History of Any Multi-Drug Resistant Organisms: MRSA Date of last positivie culture/infection: 07/2016 MDRO Source:: chin Past Surgical History: Section, Cholecystectomy, Hysterectomy, Tubal Ligation Additional Past Surgical History / Comment(s): oral surgery . Pancreas biopsy May 2015. Past Anesthesia/Blood Transfusion Reactions: No Reported Reaction Past Psychological History: ADD/ADHD, Anxiety, Bipolar, Depression Smoking Status: Current every day smoker Past Alcohol Use History: None Reported Past Drug Use History: Marijuana - Past Family History Father Family Medical History: No Reported History Additional Family Medical History / Comment(s): ADOPTED General Exam Limitations: no limitations Course Vital Signs 02/24/21 20:51 Temperature 98.5 F Pulse Rate 75 Respiratory 20 Rate Blood Pressure 144/81 O2 Sat by Pulse 97 Oximetry Medical Decision Making - Lab Data Result diagrams: 02/24/21 22:41 02/24/21 22:41 Lab Results 02/24/21 02/24/21 02/24/21 Range/Units 20:57 22:41 22:41 WBC 9.2 (3.8-10.6) k/uL RBC 4.77 (3.80-5.40) m/uL Hgb 13.4 (11.4-16.0) gm/dL Hct 41.7 (34.0-46.0) % MCV 87.5 (80.0-100.0) fL MCH 28.1 (25.0-35.0) pg MCHC 32.1 (31.0-37.0) g/dL RDW 12.8 (11.5-15.5) % Plt Count 273 (150-450) k/uL MPV 7.3 Neutrophils % 50 % Lymphocytes % 40 % Monocytes % 5 % Eosinophils % 3 % Basophils % 1 % Neutrophils # 4.6 (1.3-7.7) k/uL Lymphocytes # 3.7 (1.0-4.8) k/uL Monocytes # 0.5 (0-1.0) k/uL Eosinophils # 0.2 (0-0.7) k/uL Basophils # 0.1 (0-0.2) k/uL Sodium 137 (137-145) mmol/L Potassium 4.9 (3.5-5.1) mmol/L Chloride 99 (98-107) mmol/L Carbon Dioxide 31 H (22-30) mmol/L Anion Gap 7 mmol/L BUN 20 H (7-17) mg/dL Creatinine 0.72 (0.52-1.04) mg/dL Est GFR (CKD-EPI)AfAm >90 (>60 ml/min/1.73 sqM) Est GFR (CKD-EPI)NonAf >90 (>60 ml/min/1.73 sqM) Glucose 106 H (74-99) mg/dL Calcium 9.2 (8.4-10.2) mg/dL Total Bilirubin 0.2 (0.2-1.3) mg/dL AST 24 (14-36) U/L ALT 14 (4-34) U/L Alkaline Phosphatase 84 (38-126) U/L Total Protein 6.8 (6.3-8.2) g/dL Albumin 4.1 (3.5-5.0) g/dL Amylase 46 (30-110) U/L Lipase 82 (23-300) U/L Urine Color Yellow Urine Appearance Clear (Clear) Urine pH 6.5 (5.0-8.0) Ur Specific [place] 1.027 (1.001-1.035) Urine Protein Negative (Negative) Urine Glucose (UA) Negative (Negative) Urine Ketones Negative (Negative) Urine Blood Small H (Negative) Urine Nitrite Negative (Negative) Urine Bilirubin Negative (Negative) Urine Urobilinogen <2.0 (<2.0) mg/dL Ur Leukocyte Esterase Negative (Negative) Urine RBC 25 H (0-5) /hpf Urine WBC 3 (0-5) /hpf Ur Squamous Epith Cells 2 (0-4) /hpf Hyaline Casts 1 (0-2) /lpf Urine Mucus Rare H (None) /hpf Disposition Clinical Impression: Abdominal pain Disposition: HOME SELF-CARE Condition: Good Instructions (If sedation given, give patient instructions): Abdominal Pain (ED) Is patient prescribed a controlled substance at d/c from ED?: No Referrals: Kaleb Huston DO [Primary Care Provider] - 1-2 days
--- NOTE | 2021-02-24 23:49 | CT ---
EXAMINATION TYPE: CT abdomen pelvis wo con DATE OF EXAM: 02/24/2021 COMPARISON: 06/30/2020 HISTORY: Abd. pain CT DLP: 1041.2 mGycm Automated exposure control for dose reduction was used. Lung bases are clear. There is no pleural effusion. Heart size is normal. There is no pericardial eff usion. Stomach is intact. Liver spleen appear intact. There is air in the biliary tree. There is chol ecystectomy. I see no pancreatic mass. There is no adrenal mass. Kidneys show normal size and contour. There is no hydronephrosis. Ureters a re not dilated. There is no retroperitoneal adenopathy. Bladder distends smoothly. There is no inguin al hernia. There is no free fluid in the pelvis. There is no mesenteric edema. There is no ascites or free air. There is no bowel obstruction. Appendi x appears intact. The lumbar vertebra have normal spacing and alignment. Posterior elements are intact. The bony pelvis appears intact. Hip joints are intact. IMPRESSION: Cholecystectomy. Reflux of air into the biliary tree. No dilated ducts. No evidence of acute abdomen and pelvis. No adverse change compared to old exam.
[2021-02-24 23:59] LABS: Basophils # (A) 0.1 k/uL (0-0.2); Basophils % (A) 1 %; Eosinophils # (A) 0.2 k/uL (0-0.7); Eosinophils % (A) 3 %; HCT 41.7 % (34.0-46.0); HGB 13.4 gm/dL (11.4-16.0); Lymphocytes # (A) 3.7 k/uL (1.0-4.8); Lymphocytes % (A) 40 %; MCH 28.1 pg (25.0-35.0); MCHC 32.1 g/dL (31.0-37.0); MCV 87.5 fL (80.0-100.0); Mean Platelet Volume 7.3; Monocytes # (A) 0.5 k/uL (0-1.0); Monocytes % (A) 5 %; Neutrophils # (A) 4.6 k/uL (1.3-7.7); Neutrophils % (A) 50 %; Platelet Count 273 k/uL (150-450); RBC 4.77 m/uL (3.80-5.40); RDW 12.8 % (11.5-15.5); WBC 9.2 k/uL (3.8-10.6)
[2021-02-25 00:09] LABS: ALT 14 U/L (4-34); AST 24 U/L (14-36); African American GFR (CKD) >90 (>60 ml/min/1.73 sqM); Albumin 4.1 g/dL (3.5-5.0); Alkaline Phosphatase 84 U/L (38-126); Amylase 46 U/L (30-110); Anion Gap 7 mmol/L; Blood Urea Nitrogen 20 mg/dL (7-17); Calcium 9.2 mg/dL (8.4-10.2); Carbon Dioxide 31 mmol/L (22-30); Chloride 99 mmol/L (98-107); Glucose 106 mg/dL (74-99); Lipase 82 U/L (23-300); Non-African American GFR(CKD) >90 (>60 ml/min/1.73 sqM); Sodium 137 mmol/L (137-145); Total Bilirubin 0.2 mg/dL (0.2-1.3); Total Protein 6.8 g/dL (6.3-8.2)
[2021-02-25 00:34] LABS: Potassium 4.9 mmol/L (3.5-5.1)
[2021-02-25] MEDS ORDERED: HYDROmorphone 1 MG/ML 1 ML SYRINGE IVP STA (00:54)
[2021-02-25 01:09] VITALS: BP 142/87; PULSE 80
== END 2021-02-25 01:14 | disposition home or self-care (01) ==
LOC: EC 20:24
DX: R10.9 Unspecified abdominal pain (principal); J44.9 Chronic obstructive pulmonary disease, unspecified; I11.0 Hypertensive heart disease with heart failure; K21.9 Gastro-esophageal reflux disease without esophagitis; I50.9 Heart failure, unspecified; G43.909 Migraine, unspecified, not intractable, without status migrainosus; G40.909 Epilepsy, unspecified, not intractable, without status epilepticus; M06.9 Rheumatoid arthritis, unspecified; M79.7 Fibromyalgia; F41.9 Anxiety disorder, unspecified; F31.9 Bipolar disorder, unspecified; F90.9 Attention-deficit hyperactivity disorder, unspecified type; F17.200 Nicotine dependence, unspecified, uncomplicated; F12.90 Cannabis use, unspecified, uncomplicated; Z86.73 Personal history of transient ischemic attack (TIA), and cerebral infarction without residual deficits
CPT/HCPCS: 36415; 80053; 82150; 83690; 85025; 81001; 74176; 99284; 96374; 96375 ×3; 96361 ×2; J2270; J2405; J1170; J1885

== ENCOUNTER 2021-03-16 19:22 | Emergency (ER) | payer MEDICARE ==
[2021-03-16 19:56] VITALS: BP 121/72; PULSE 78; RESP 18; TEMP 98.5
[2021-03-16] MEDS ORDERED: HYDROmorphone 1 MG/ML 1 ML SYRINGE IM STA (21:23)
[2021-03-16] MEDS ORDERED: PHENAZOPYRIDINE 200 MG TAB PO ONE (21:45)
[2021-03-16 22:08] LABS: Appearance,Urine Cloudy (Clear); Bilirubin,Urine 1+ (Negative); Blood,Urine Moderate (Negative); Color,Urine Yellow; Glucose,Urine (UA) Negative (Negative); Hyaline Casts,Urine 2 /lpf (0-2); Ketones,Urine 1+ (Negative); Leukocyte Esterase,Urine Moderate (Negative); Mucus,Urine Many /hpf; Nitrite,Urine Negative (Negative); PH, Urine 7.5 (5.0-8.0); Protein,Urine 1+ (Negative); RBC,Urine 28 /hpf (0-5); Squamous Epithelial Cell,Urine 17 /hpf (0-4); WBC,Urine 25 /hpf (0-5)
[2021-03-16] MEDS ORDERED: NITROFURANTOIN MONOHYD/M-CRYST 100 MG CAP PO STA ×2 (22:41→23:06)
--- NOTE | 2021-03-16 22:54 | ED ---
Female Urogenital HPI - General Chief complaint: Urogenital Stated complaint: problems urinating Source: patient Mode of arrival: ambulatory Limitations: no limitations - History of Present Illness Initial comments: 46-year-old female with multiple medical conditions who presents emergency room with reported suprapubic pain and discomfort with urination. Reports to dark-colored urination. Denies hematuria. No fevers or chills. No nausea or vomiting. Admits to a history of renal stones however states that this pain feels different. She has not taken any medications at home for her symptoms. No changes in her bowel habits. No concern for . No vaginal bleeding or discharge. No other alleviating, breakdown person modifying factors - Related Data Home Medications Medication Instructions Recorded Confirmed Spironolactone [Aldactone] 25 mg PO DAILY 02/05/17 02/24/21 QUEtiapine [SEROquel] 150 mg PO HS 02/25/19 02/24/21 Citalopram Hydrobromide [CeleXA] 40 mg PO DAILY 06/12/19 02/24/21 oxyCODONE-APAP 7.5-325MG [Percocet 1 tab PO TID 01/01/20 02/24/21 7.5-325 mg] Dicyclomine [Bentyl] 10 mg PO TID 05/28/20 02/24/21 diphenhydrAMINE [Benadryl] 50 mg PO TID 02/24/21 02/24/21 levETIRAcetam [Keppra] 500 mg PO DAILY 02/24/21 02/24/21 rOPINIRole HCL [Requip] 0.25 mg PO HS 02/24/21 02/24/21 Previous Rx's Medication Instructions Recorded Nitrofurantoin Monohyd/M-Cryst 100 mg PO Q12HR #14 cap 03/16/21 [Macrobid] Phenazopyridine [Pyridium] 200 mg PO TID #6 tablet 03/16/21 Allergies Allergy/AdvReac Type Severity Reaction Status Date / Time adhesive Allergy Rash/Hives Verified 03/16/21 19:54 amoxicillin Allergy Anaphylaxis Verified 03/16/21 19:54 azithromycin [From Zithromax] Allergy Anaphylaxis Verified 03/16/21 19:54 cephalexin monohydrate Allergy Anaphylaxis Verified 03/16/21 19:54 [From Keflex] ciprofloxacin Allergy Anaphylaxis Verified 03/16/21 19:54 clindamycin Allergy Anaphylaxis Verified 03/16/21 19:54 Iodinated Contrast Media Allergy Swelling Verified 03/16/21 19:54 [Iodinated Contrast- Oral and IV Dye] levofloxacin [From Levaquin] Allergy Rash/Hives Verified 03/16/21 19:54 naproxen Allergy Anaphylaxis Verified 03/16/21 19:54 NSAIDS (Non-Steroidal Allergy Rash/Hives Verified 03/16/21 19:54 Anti-Inflamma shellfish derived Allergy Anaphylaxis Verified 03/16/21 19:54 Sulfa (Sulfonamide Allergy Anaphylaxis Verified 03/16/21 19:54 Antibiotics) sulfamethoxazole Allergy Anaphylaxis Verified 03/16/21 19:54 [From Bactrim] tramadol Allergy Unknown Verified 03/16/21 19:54 trimethoprim [From Bactrim] Allergy Anaphylaxis Verified 03/16/21 19:54 Review of Systems ROS Statement: Those systems with pertinent positive or pertinent negative responses have been documented in the HPI. ROS Other: All systems not noted in ROS Statement are negative. 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 IBS, cellulitis of the chin, History of Any Multi-Drug Resistant Organisms: MRSA Date of last positivie culture/infection: 07/2016 MDRO Source:: chin Past Surgical History: Section, Cholecystectomy, Hysterectomy, Tubal Ligation Additional Past Surgical History / Comment(s): oral surgery . Pancreas biopsy May 2015. Past Anesthesia/Blood Transfusion Reactions: No Reported Reaction Past Psychological History: ADD/ADHD, Anxiety, Bipolar, Depression Smoking Status: Current every day smoker Past Alcohol Use History: None Reported Past Drug Use History: Marijuana - Past Family History Father Family Medical History: No Reported History Additional Family Medical History / Comment(s): ADOPTED General Exam Limitations: no limitations General appearance: alert, in no apparent distress Head exam: Present: atraumatic, normocephalic, normal inspection Eye exam: Present: normal appearance, PERRL, EOMI. Absent: scleral icterus, conjunctival injection, periorbital swelling ENT exam: Present: normal exam, mucous membranes moist Neck exam: Present: normal inspection. Absent: tenderness, meningismus, lymphadenopathy Respiratory exam: Present: normal lung sounds bilaterally. Absent: respiratory distress, wheezes, rales, rhonchi, stridor Cardiovascular Exam: Present: regular rate, normal rhythm, normal heart sounds. Absent: systolic murmur, diastolic murmur, rubs, gallop, clicks GI/Abdominal exam: Present: soft, tenderness (suprapubic), normal bowel sounds. Absent: distended, guarding, rebound, rigid Extremities exam: Present: normal inspection, full ROM, normal capillary refill. Absent: tenderness, pedal edema, joint swelling, calf tenderness Back exam: Present: normal inspection Neurological exam: Present: alert, oriented X3, CN II-XII intact Psychiatric exam: Present: normal affect, normal mood Skin exam: Present: warm, dry, intact, normal color. Absent: rash Course Vital Signs 03/16/21 19:54 Temperature 98.5 F Pulse Rate 78 Respiratory 18 Rate Blood Pressure 121/72 O2 Sat by Pulse 95 Oximetry Medical Decision Making - Medical Decision Making Upon arrival patient is placed into [place] [id number]. A thorough history and physical exam is performed. Patient is given a dose of Dilaudid for pain control. Urinalysis is sent which is grossly positive for infection. Patient does have multiple medication ALLERGIES. She is given a dose of Macrobid and Pyridium. Patient will be discharged home with prescriptions for both. He states that as directed while we await urine culture results. The patient has any new or worsening symptoms she should return to the emergency room. She is given written and verbal discharge instructions and discharged home in stable c ondition - Lab Data Lab Results 03/16/21 03/16/21 Range/Units 21:20 21:20 Urine Color Yellow Urine Appearance Cloudy H (Clear) Urine pH 7.5 (5.0-8.0) Ur Specific [place] 1.030 (1.001-1.035) Urine Protein 1+ H (Negative) Urine Glucose (UA) Negative (Negative) Urine Ketones 1+ H (Negative) Urine Blood Moderate H (Negative) Urine Nitrite Negative (Negative) Urine Bilirubin 1+ H (Negative) Urine Urobilinogen 4.0 (<2.0) mg/dL Ur Leukocyte Esterase Moderate H (Negative) Urine RBC 28 H (0-5) /hpf Urine WBC 25 H (0-5) /hpf Ur Squamous Epith Cells 17 H (0-4) /hpf Hyaline Casts 2 (0-2) /lpf Urine Mucus Many H (None) /hpf Urine HCG, Qual Not Detected (Not Detectd) Disposition Clinical Impression: UTI (urinary tract infection) Disposition: HOME SELF-CARE Condition: Stable Instructions (If sedation given, give patient instructions): Urinary Tract Infection in Women (ED) Additional Instructions: Please follow up with your doctor in 2-4 days. Return to the ED for any or worsening symptoms. Prescriptions: Nitrofurantoin Monohyd/M-Cryst [Macrobid] 100 mg PO Q12HR #14 cap Phenazopyridine [Pyridium] 200 mg PO TID #6 tablet Is patient prescribed a controlled substance at d/c from ED?: No Referrals: Kaleb Huston DO [Primary Care Provider] - 1-2 days Time of Disposition: 22:54
== END 2021-03-16 23:27 | disposition home or self-care (01) ==
LOC: EC 19:22
DX: N39.0 Urinary tract infection, site not specified (principal); I11.0 Hypertensive heart disease with heart failure; I50.9 Heart failure, unspecified; J44.9 Chronic obstructive pulmonary disease, unspecified; G40.909 Epilepsy, unspecified, not intractable, without status epilepticus; M06.9 Rheumatoid arthritis, unspecified; M79.7 Fibromyalgia; F17.200 Nicotine dependence, unspecified, uncomplicated; F12.90 Cannabis use, unspecified, uncomplicated; F31.9 Bipolar disorder, unspecified; F41.9 Anxiety disorder, unspecified; Z79.899 Other long term (current) drug therapy; Z86.73 Personal history of transient ischemic attack (TIA), and cerebral infarction without residual deficits; Z88.1 Allergy status to other antibiotic agents; Z88.2 Allergy status to sulfonamides; Z88.5 Allergy status to narcotic agent; Z88.6 Allergy status to analgesic agent; Z88.8 Allergy status to other drugs, medicaments and biological substances; Z90.49 Acquired absence of other specified parts of digestive tract
CPT/HCPCS: 81001; 81025; 87086; 96372; 99284; J1170

== ENCOUNTER 2021-03-25 16:13 | Observation (INO) | payer MEDICARE ==
[2021-03-25 18:42] LABS: Appearance,Urine Clear (Clear); Bilirubin,Urine 2+ (Negative); Blood,Urine Trace (Negative); Color,Urine Dark Brown; Glucose,Urine (UA) Negative (Negative); Hyaline Casts,Urine 1 /lpf (0-2); Ketones,Urine Negative (Negative); Leukocyte Esterase,Urine Negative (Negative); Mucus,Urine Many /hpf; Nitrite,Urine Positive (Negative); PH, Urine 6.5 (5.0-8.0); Protein,Urine Trace (Negative); RBC,Urine 9 /hpf (0-5); Specific Gravity,Urine 1.025 (1.001-1.035); Squamous Epithelial Cell,Urine 5 /hpf (0-4); WBC,Urine 3 /hpf (0-5)
[2021-03-25 19:28] LABS: Basophils % (A) 0 %; Eosinophils # (A) 0.3 k/uL (0-0.7); Eosinophils % (A) 3 %; HCT 41.9 % (34.0-46.0); HGB 13.6 gm/dL (11.4-16.0); Lymphocytes # (A) 2.7 k/uL (1.0-4.8); Lymphocytes % (A) 31 %; MCH 28.3 pg (25.0-35.0); MCHC 32.5 g/dL (31.0-37.0); MCV 87.2 fL (80.0-100.0); Mean Platelet Volume 7.2; Monocytes # (A) 0.4 k/uL (0-1.0); Monocytes % (A) 4 %; Neutrophils # (A) 5.2 k/uL (1.3-7.7); Neutrophils % (A) 59 %; Platelet Count 309 k/uL (150-450); RBC 4.81 m/uL (3.80-5.40); RDW 12.8 % (11.5-15.5); WBC 8.7 k/uL (3.8-10.6)
[2021-03-25 19:38] LABS: ALT 14 U/L (4-34); AST 25 U/L (14-36); African American GFR (CKD) >90 (>60 ml/min/1.73 sqM); Alkaline Phosphatase 95 U/L (38-126); Anion Gap 8 mmol/L; Blood Urea Nitrogen 15 mg/dL (7-17); Calcium 9.4 mg/dL (8.4-10.2); Carbon Dioxide 30 mmol/L (22-30); Chloride 99 mmol/L (98-107); Glucose 152 mg/dL (74-99); Non-African American GFR(CKD) >90 (>60 ml/min/1.73 sqM); Potassium 4.4 mmol/L (3.5-5.1); Sodium 137 mmol/L (137-145); Total Bilirubin 0.2 mg/dL (0.2-1.3); Total Protein 6.9 g/dL (6.3-8.2)
--- NOTE | 2021-03-25 20:02 | ED ---
Recheck HPI - General Chief Complaint: Recheck/Abnormal Lab/Rx Stated Complaint: UTI, arm numbness Time Seen by Provider: 03/25/21 18:04 Source: patient, RN notes reviewed Mode of arrival: ambulatory Limitations: no limitations - History of Present Illness Initial Comments: Patient is a 46 she'll female presents to emergency department complaining of ch ronic UTI. She notes that she recently just completed Macrobid and taking Azo. She notes that she called her primary care and said that she is still having burning and discomfort. She also noted that she was having chest discomfort and upper extremity numbness tingling. Patient did not appear to be any distress while sitting up in bed during exam and interview. She was otherwise a well-appearing 46 she'll female. She denied any shortness of breath headache nausea vomiting diarrhea constipation fever fatigue chills. - Related Data Home Medications Medication Instructions Recorded Confirmed Spironolactone [Aldactone] 25 mg PO DAILY 02/05/17 03/25/21 QUEtiapine [SEROquel] 150 mg PO HS 02/25/19 03/25/21 Citalopram Hydrobromide [CeleXA] 40 mg PO DAILY 06/12/19 03/25/21 oxyCODONE-APAP 7.5-325MG [Percocet 1 tab PO TID 01/01/20 03/25/21 7.5-325 mg] Dicyclomine [Bentyl] 10 mg PO TID 05/28/20 03/25/21 levETIRAcetam [Keppra] 500 mg PO DAILY 02/24/21 03/25/21 rOPINIRole HCL [Requip] 0.25 mg PO HS 02/24/21 03/25/21 Allergies Allergy/AdvReac Type Severity Reaction Status Date / Time adhesive Allergy Rash/Hives Verified 03/25/21 18:52 amoxicillin Allergy Anaphylaxis Verified 03/25/21 18:52 azithromycin [From Zithromax] Allergy Anaphylaxis Verified 03/25/21 18:52 cephalexin monohydrate Allergy Anaphylaxis Verified 03/25/21 18:52 [From Keflex] ciprofloxacin Allergy Anaphylaxis Verified 03/25/21 18:52 clindamycin Allergy Anaphylaxis Verified 03/25/21 18:52 Iodinated Contrast Media Allergy Swelling Verified 03/25/21 18:52 [Iodinated Contrast- Oral and IV Dye] levofloxacin [From Levaquin] Allergy Rash/Hives Verified 03/25/21 18:52 naproxen Allergy Anaphylaxis Verified 03/25/21 18:52 NSAIDS (Non-Steroidal Allergy Rash/Hives Verified 03/25/21 18:52 Anti-Inflamma shellfish derived Allergy Anaphylaxis Verified 03/25/21 18:52 Sulfa (Sulfonamide Allergy Anaphylaxis Verified 03/25/21 18:52 Antibiotics) sulfamethoxazole Allergy Anaphylaxis Verified 03/25/21 18:52 [From Bactrim] tramadol Allergy Unknown Verified 03/25/21 18:52 trimethoprim [From Bactrim] Allergy Anaphylaxis Verified 03/25/21 18:52 Review of Systems ROS Statement: Those systems with pertinent positive or pertinent negative responses have been documented in the HPI. ROS Other: All systems not noted in ROS Statement are negative. 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 IBS, cellulitis of the chin, History of Any Multi-Drug Resistant Organisms: MRSA Date of last positivie culture/infection: 07/2016 MDRO Source:: chin Past Surgical History: Section, Cholecystectomy, Hysterectomy, Tubal Ligation Additional Past Surgical History / Comment(s): oral surgery . Pancreas biopsy May 2015. Past Anesthesia/Blood Transfusion Reactions: No Reported Reaction Past Psychological History: ADD/ADHD, Anxiety, Bipolar, Depression Smoking Status: Current every day smoker Past Alcohol Use History: None Reported Past Drug Use History: Marijuana - Past Family History Father Family Medical History: No Reported History Additional Family Medical History / Comment(s): ADOPTED General Exam Limitations: no limitations General appearance: alert, in no apparent distress, obese Head exam: Present: atraumatic, normocephalic, normal inspection Eye exam: Present: normal appearance, PERRL, EOMI. Absent: scleral icterus, conjunctival injection, periorbital swelling Neck exam: Present: normal inspection Respiratory exam: Present: normal lung sounds bilaterally. Absent: respiratory distress, wheezes, rales, rhonchi, stridor Cardiovascular Exam: Present: regular rate, normal rhythm, normal heart sounds. Absent: systolic murmur, diastolic murmur, rubs, gallop, clicks GI/Abdominal exam: Present: soft, normal bowel sounds. Absent: distended, tenderness, guarding, rebound, rigid Extremities exam: Present: normal inspection, full ROM, normal capillary refill. Absent: tenderness, pedal edema, joint swelling, calf tenderness Neurological exam: Present: alert, oriented X3 Psychiatric exam: Present: normal affect, normal mood Skin exam: Present: warm, dry, intact, normal color. Absent: rash Course Vital Signs 03/25/21 03/25/21 16:56 20:38 Temperature 98.4 F Pulse Rate 71 77 Respiratory 18 20 Rate Blood Pressure 174/89 173/103 O2 Sat by Pulse 94 L 97 Oximetry Medical Decision Making - Medical Decision Making 46 she'll female complaining of frequency and burning on urination, notes this is chronic. The complaint of mild chest discomfort. Labs, EKG, urinalysis ordered. Labs: Urinalysis shows positive nitrites, patient did take Azo. 3 white blood cells. Rest of labs unremarkable. Chest x-ray negative. Case discussed with Dr. Polanco, patient will be admitted given her extensive cardiac history. [facility] Lab Data Result diagrams: 03/25/21 19:15 03/25/21 19:15 Lab Results 03/25/21 03/25/21 03/25/21 Range/Units 18:25 19:15 19:15 WBC 8.7 (3.8-10.6) k/uL RBC 4.81 (3.80-5.40) m/uL Hgb 13.6 (11.4-16.0) gm/dL Hct 41.9 (34.0-46.0) % MCV 87.2 (80.0-100.0) fL MCH 28.3 (25.0-35.0) pg MCHC 32.5 (31.0-37.0) g/dL RDW 12.8 (11.5-15.5) % Plt Count 309 (150-450) k/uL MPV 7.2 Neutrophils % 59 % Lymphocytes % 31 % Monocytes % 4 % Eosinophils % 3 % Basophils % 0 % Neutrophils # 5.2 (1.3-7.7) k/uL Lymphocytes # 2.7 (1.0-4.8) k/uL Monocytes # 0.4 (0-1.0) k/uL Eosinophils # 0.3 (0-0.7) k/uL Basophils # 0.0 (0-0.2) k/uL Sodium 137 (137-145) mmol/L Potassium 4.4 (3.5-5.1) mmol/L Chloride 99 (98-107) mmol/L Carbon Dioxide 30 (22-30) mmol/L Anion Gap 8 mmol/L BUN 15 (7-17) mg/dL Creatinine 0.73 (0.52-1.04) mg/dL Est GFR (CKD-EPI)AfAm >90 (>60 ml/min/1.73 sqM) Est GFR (CKD-EPI)NonAf >90 (>60 ml/min/1.73 sqM) Glucose 152 H (74-99) mg/dL Calcium 9.4 (8.4-10.2) mg/dL Total Bilirubin 0.2 (0.2-1.3) mg/dL AST 25 (14-36) U/L ALT 14 (4-34) U/L Alkaline Phosphatase 95 (38-126) U/L Troponin I (0.000-0.034) ng/mL Total Protein 6.9 (6.3-8.2) g/dL Albumin 4.0 (3.5-5.0) g/dL Urine Color Dark Brown Urine Appearance Clear (Clear) Urine pH 6.5 (5.0-8.0) Ur Specific [place] 1.025 (1.001-1.035) Urine Protein Trace H (Negative) Urine Glucose (UA) Negative (Negative) Urine Ketones Negative (Negative) Urine Blood Trace H (Negative) Urine Nitrite Positive H (Negative) Urine Bilirubin 2+ H (Negative) Urine Urobilinogen 4.0 (<2.0) mg/dL Ur Leukocyte Esterase Negative (Negative) Urine RBC 9 H (0-5) /hpf Urine WBC 3 (0-5) /hpf Ur Squamous Epith Cells 5 H (0-4) /hpf Hyaline Casts 1 (0-2) /lpf Urine Mucus Many H (None) /hpf 03/25/21 Range/Units 19:15 WBC (3.8-10.6) k/uL RBC (3.80-5.40) m/uL Hgb (11.4-16.0) gm/dL Hct (34.0-46.0) % MCV (80.0-100.0) fL MCH (25.0-35.0) pg MCHC (31.0-37.0) g/dL RDW (11.5-15.5) % Plt Count (150-450) k/uL MPV Neutrophils % % Lymphocytes % % Monocytes % % Eosinophils % % Basophils % % Neutrophils # (1.3-7.7) k/uL Lymphocytes # (1.0-4.8) k/uL Monocytes # (0-1.0) k/uL Eosinophils # (0-0.7) k/uL Basophils # (0-0.2) k/uL Sodium (137-145) mmol/L Potassium (3.5-5.1) mmol/L Chloride (98-107) mmol/L Carbon Dioxide (22-30) mmol/L Anion Gap mmol/L BUN (7-17) mg/dL Creatinine (0.52-1.04) mg/dL Est GFR (CKD-EPI)AfAm (>60 ml/min/1.73 sqM) Est GFR (CKD-EPI)NonAf (>60 ml/min/1.73 sqM) Glucose (74-99) mg/dL Calcium (8.4-10.2) mg/dL Total Bilirubin (0.2-1.3) mg/dL AST (14-36) U/L ALT (4-34) U/L Alkaline Phosphatase (38-126) U/L Troponin I <0.012 (0.000-0.034) ng/mL Total Protein (6.3-8.2) g/dL Albumin (3.5-5.0) g/dL Urine Color Urine Appearance (Clear) Urine pH (5.0-8.0) Ur Specific [place] (1.001-1.035) Urine Protein (Negative) Urine Glucose (UA) (Negative) Urine Ketones (Negative) Urine Blood (Negative) Urine Nitrite (Negative) Urine Bilirubin (Negative) Urine Urobilinogen (<2.0) mg/dL Ur Leukocyte Esterase (Negative) Urine RBC (0-5) /hpf Urine WBC (0-5) /hpf Ur Squamous Epith Cells (0-4) /hpf Hyaline Casts (0-2) /lpf Urine Mucus (None) /hpf - EKG Data -: EKG Interpreted by Me EKG shows normal: sinus rhythm Rate: normal EKG Comments: Ventricular rate 71 bpm, MI interval 150 ms, QRS duration 82 ms, QTC 441 ms, PRT axis 12/54/57. Normal sinus rhythm, normal ECG. - Radiology Data Radiology results: report reviewed, image reviewed Chest x-ray: No acute cardiopulmonary process. Disposition Clinical Impression: Atypical chest pain, Urinary tract infection Disposition: ADMITTED IP TO THIS HOSP Condition: Stable Is patient prescribed a controlled substance at d/c from ED?: No Referrals: Kaleb Huston DO [Primary Care Provider] - 1-2 days Time of Disposition: 21:08
[2021-03-25] MEDS ORDERED: HYDROmorphone 0.5 MG/0.5 ML SYRINGE IVP STA (20:13)
--- NOTE | 2021-03-25 20:29 | XR ---
EXAMINATION TYPE: XR chest 2V DATE OF EXAM: 03/25/2021 COMPARISON: 12/05/2020. HISTORY: Pain. TECHNIQUE: Frontal and lateral views of the chest are obtained. FINDINGS: There is no focal air space opacity, pleural effusion, or pneumothorax seen. The cardiac silhouette size is within normal limits. The osseous structures are intact. IMPRESSION: No acute cardiopulmonary process.
[2021-03-25] MEDS ORDERED: NALOXONE 0.4 MG/ML 1 ML VIAL IV PRN (21:08)
[2021-03-25] MEDS: HYDROmorphone 0.5 MG/0.5 ML SYRINGE IVP PRN (22:19)
[2021-03-25] MEDS: SODIUM CHLORIDE 0.9% 1,000 ML IV SCH (22:26)
[2021-03-26] MEDS: QUEtiapine 50 MG TAB PO SCH ×2 (00:40→21:11)
[2021-03-26] MEDS: DICYCLOMINE 10 MG CAP PO SCH ×4 (00:40→21:12)
[2021-03-26] MEDS: carvediloL 12.5 MG TAB PO SCH ×5 (00:40→21:11)
[2021-03-26] MEDS: HYDROmorphone 0.5 MG/0.5 ML SYRINGE IVP PRN ×6 (01:51→20:24)
--- NOTE | 2021-03-26 08:23 | P.GSCN ---
History of Present Illness Consult date: 03/26/21 History of present illness: 46 yo female in the hospital with symptoms of a uti that wont clear and chest pain. We werer asked to see for the uti symptoms. SHe has had bilateral groin pain and dysuria for about a year. She states that Dr Huston has placed her on macrobid at least 5 times. She states that the symptoms never go away. She has had blood in the ruien there has been no fever. She doesnt have stones. SHe has IBS. SHe has a bad back. She has had a hysterectomy HEr urine is relatively non specific on this admission. SHe has had one e coli uti that I can see from the lab records in 2019. SHe has had multiple negative cultures.SHe had a normal ct scan in february of 2021. Review of Systems All systems: negative - Constitutional Denies fever, Denies weight loss - EENT Eyes: denies blurred vision Ears, nose, mouth and throat: Denies dysphagia - Cardiovascular Denies chest pain, Denies shortness of breath - Respiratory Denies cough, Denies 7 - Gastrointestinal Reports as per HPI - Genitourinary Genitourinary: Denies dysuria, Denies hematuria - Integumentary Denies rash, Denies unusual bruising - Neurological Denies headaches, Denies syncope - Hematologic/Lymphatic Denies easy bleeding, Denies easy bruising Past Medical History Past Medical History: Asthma, Heart Failure, COPD, CVA/TIA, Fibromyalgia, Hypertension, Pneumonia, Rheumatoid Arthritis (RA), Seizure Disorder, Syncope Additional Past Medical History / Comment(s): 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 IBS, cellulitis of the chin, History of Any Multi-Drug Resistant Organisms: MRSA Year Discovered:: 07/2016 MDRO Source:: [facility] Past Surgical History: Section, Cholecystectomy, Hysterectomy, Tubal Ligation Additional Past Surgical History / Comment(s): oral surgery . Pancreas biopsy May 2015. Past Anesthesia/Blood Transfusion Reactions: No Reported Reaction Past Psychological History: ADD/ADHD, Anxiety, Bipolar, Depression Smoking Status: Current every day smoker Past Alcohol Use History: None Reported Past Drug Use History: Marijuana - Past Family History Father Family Medical History: No Reported History Additional Family Medical History / Comment(s): ADOPTED Medications and Allergies Home Medications Medication Instructions Recorded Confirmed Type Spironolactone [Aldactone] 25 mg PO DAILY 02/05/17 03/25/21 History QUEtiapine [SEROquel] 150 mg PO HS 02/25/19 03/25/21 History Citalopram Hydrobromide [CeleXA] 40 mg PO DAILY 06/12/19 03/25/21 History oxyCODONE-APAP 7.5-325MG [Percocet 1 tab PO TID 01/01/20 03/25/21 History 7.5-325 mg] Dicyclomine [Bentyl] 10 mg PO TID 05/28/20 03/25/21 History levETIRAcetam [Keppra] 500 mg PO DAILY 02/24/21 03/25/21 History rOPINIRole HCL [Requip] 0.25 mg PO HS 02/24/21 03/25/21 History Carvedilol [Coreg] 25 mg PO BID 03/26/21 03/26/21 History Allergies Allergy/AdvReac Type Severity Reaction Status Date / Time adhesive Allergy Rash/Hives Verified 03/25/21 18:52 amoxicillin Allergy Anaphylaxis Verified 03/25/21 18:52 azithromycin [From Zithromax] Allergy Anaphylaxis Verified 03/25/21 18:52 cephalexin monohydrate Allergy Anaphylaxis Verified 03/25/21 18:52 [From Keflex] ciprofloxacin Allergy Anaphylaxis Verified 03/25/21 18:52 clindamycin Allergy Anaphylaxis Verified 03/25/21 18:52 Iodinated Contrast Media Allergy Swelling Verified 03/25/21 18:52 [Iodinated Contrast- Oral and IV Dye] levofloxacin [From Levaquin] Allergy Rash/Hives Verified 03/25/21 18:52 naproxen Allergy Anaphylaxis Verified 03/25/21 18:52 NSAIDS (Non-Steroidal Allergy Rash/Hives Verified 03/25/21 18:52 Anti-Inflamma shellfish derived Allergy Anaphylaxis Verified 03/25/21 18:52 Sulfa (Sulfonamide Allergy Anaphylaxis Verified 03/25/21 18:52 Antibiotics) sulfamethoxazole Allergy Anaphylaxis Verified 03/25/21 18:52 [From Bactrim] tramadol Allergy Unknown Verified 03/25/21 18:52 trimethoprim [From Bactrim] Allergy Anaphylaxis Verified 03/25/21 18:52 Surgical - Exam Vital Signs Temp Pulse Resp BP Pulse Ox 98.4 F 71 18 174/89 94 L 03/25/21 16:56 03/25/21 16:56 03/25/21 16:56 03/25/21 16:56 03/25/21 16:56 - General well developed, well nourished, obese - Eyes PERRL - ENT no hearing loss - Neck trachea midline - Respiratory nasal o2 normal expansion, normal respiratory effort - Abdomen Abdomen: soft, non tender - Neurologic normal sensation - Musculoskeletal normal posture - Psychiatric oriented to time, oriented to person, oriented to place, speech is normal, memory intact Results - Labs 03/25/21 19:15 03/25/21 19:15 Abnormal Lab Results - Last 24 Hours (Table) 03/25/21 03/25/21 Range/Units 18:25 19:15 Glucose 152 H (74-99) mg/dL Urine Protein Trace H (Negative) Urine Blood Trace H (Negative) Urine Nitrite Positive H (Negative) Urine Bilirubin 2+ H (Negative) Urine RBC 9 H (0-5) /hpf Ur Squamous Epith Cells 5 H (0-4) /hpf Urine Mucus Many H (None) /hpf Diabetes panel 03/25/21 Range/Units 19:15 Sodium 137 (137-145) mmol/L Potassium 4.4 (3.5-5.1) mmol/L Chloride 99 (98-107) mmol/L Carbon Dioxide 30 (22-30) mmol/L BUN 15 (7-17) mg/dL Creatinine 0.73 (0.52-1.04) mg/dL Glucose 152 H (74-99) mg/dL Calcium 9.4 (8.4-10.2) mg/dL AST 25 (14-36) U/L ALT 14 (4-34) U/L Alkaline Phosphatase 95 (38-126) U/L Total Protein 6.9 (6.3-8.2) g/dL Albumin 4.0 (3.5-5.0) g/dL Calcium panel 03/25/21 Range/Units 19:15 Calcium 9.4 (8.4-10.2) mg/dL Albumin 4.0 (3.5-5.0) g/dL Pituitary panel 03/25/21 Range/Units 19:15 Sodium 137 (137-145) mmol/L Potassium 4.4 (3.5-5.1) mmol/L Chloride 99 (98-107) mmol/L Carbon Dioxide 30 (22-30) mmol/L BUN 15 (7-17) mg/dL Creatinine 0.73 (0.52-1.04) mg/dL Glucose 152 H (74-99) mg/dL Calcium 9.4 (8.4-10.2) mg/dL Adrenal panel 03/25/21 Range/Units 19:15 Sodium 137 (137-145) mmol/L Potassium 4.4 (3.5-5.1) mmol/L Chloride 99 (98-107) mmol/L Carbon Dioxide 30 (22-30) mmol/L BUN 15 (7-17) mg/dL Creatinine 0.73 (0.52-1.04) mg/dL Glucose 152 H (74-99) mg/dL Calcium 9.4 (8.4-10.2) mg/dL Total Bilirubin 0.2 (0.2-1.3) mg/dL AST 25 (14-36) U/L ALT 14 (4-34) U/L Alkaline Phosphatase 95 (38-126) U/L Total Protein 6.9 (6.3-8.2) g/dL Albumin 4.0 (3.5-5.0) g/dL - Imaging CT scan - abdomen: report reviewed, image reviewed CT scan - pelvis: report reviewed, image reviewed Assessment and Plan Assessment: Impression: luts, possible recurrent uti. chest pain Plan: This patient comes with groin pain, dysuria and the diagnosis of recurrent utis. I dont have the records to support the utis. Her symptoms also go against that. Possibilites include back issues leading to pelvic symptoms, pelvic pain syndrome. At this point in time there is nothing further I will do durong this hospitalization She will need a cystoscopy as an op in our office.
--- NOTE | 2021-03-26 08:34 | P.HPIM ---
History of Present Illness This is a pleasant 45 years old female with past medical history of heart failure, COPD, CVA/TIA, fibromyalgia, hypertension, osteoarthritis, rheumatoid arthritis, seizure disorder, pancreatic fibrosis, chronic back pain, migraines, chronic abdominal pain, kidney stones, irritable bowel syndrome, degenerative disc disease, bipolar and depression, also she smokes cigarettes and marijuana. She has history of hysterectomy patient also complains from chronic upper and lower back pain related to her fibromyalgia since 2006, she follows up with Dr. Wick as an outpatient -She has history of COPD and she follows up with Dr. Su, she uses 2 L of oxygen at night but not CPAP/BiPAP machine Presents because of chronic UTI as she describes. Patient states that she has recurrent UTI treated with Macrobid which give her some relief but last time it did not help her much so decided to come to emergency room complaining of from lower abdominal suprapubic pain and radiating to the right groin with some tenderness, she rates the pain at 7/10 felt like throbbing associated with 2 days of dysuria, urgency and hesitancy with urination also she had diarrhea for 2 days as you vomiting. No other abdominal pain. No dyspnea or chest pain. No headache She smokes down to 2 cigarettes per day, she is counseled and willing to continue quitting, she declines nicotine patch. No alcohol all orifices and proximal She is bipolar but denies active symptoms of depression. She denies suicidal ideation. She states she is taking Rocephin/ceftriaxone before and he agrees to start the treatment Vitals are stable. Blood pressure on the high side 177/98 on admission, currently 147/83. Labs including CBC, BMP, liver enzymes are unremarkable. Troponin is less than 0.012. Urine analysis suspicious for infection EKG showing normal sinus rhythm at [address]-T changes and Chest x-ray: No acute process In the emergency room patient was started on normal saline 75 mL/h. She has multiple drug ALLERGIES and she was not started on antibiotic Patient has multiple hospitalization, I checked with pharmacy she received ceft riaxone, Keflex, doxycycline, levofloxacin and vancomycin during her previous hospitalizations Review of Systems CONSTITUTIONAL: No fever, no malaise, no fatigue. HEENT: No recent visual problems or hearing problems. Denied any sore throat. CARDIOVASCULAR: No orthopnea, PND, no palpitations, no syncope. PULMONARY: No shortness of breath, no cough, no hemoptysis. GASTROINTESTINAL: No diarrhea, no nausea, no vomiting, . Normoactive bowel sounds. NEUROLOGICAL: No headaches, no weakness, no numbness. HEMATOLOGICAL: Denies any bleeding or petechiae. GENITOURINARY: Denies any burning micturition, frequency, or urgency. MUSCULOSKELETAL/RHEUMATOLOGICAL: Denies any joint pain, swelling, or any muscle pain. ENDOCRINE: Denies any polyuria or polydipsia. 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 IBS, cellulitis of the chin, History of Any Multi-Drug Resistant Organisms: MRSA Date of last positivie culture/infection: 07/2016 MDRO Source:: chin Past Surgical History: Section, Cholecystectomy, Hysterectomy, Tubal Ligation Additional Past Surgical History / Comment(s): oral surgery . Pancreas biopsy May 2015. Past Anesthesia/Blood Transfusion Reactions: No Reported Reaction Past Psychological History: ADD/ADHD, Anxiety, Bipolar, Depression Smoking Status: Current every day smoker Past Alcohol Use History: None Reported Past Drug Use History: Marijuana - Past Family History Father Family Medical History: No Reported History Additional Family Medical History / Comment(s): ADOPTED Medications and Allergies Home Medications Medication Instructions Recorded Confirmed Type Spironolactone [Aldactone] 25 mg PO DAILY 02/05/17 03/25/21 History QUEtiapine [SEROquel] 150 mg PO HS 02/25/19 03/25/21 History Citalopram Hydrobromide [CeleXA] 40 mg PO DAILY 06/12/19 03/25/21 History oxyCODONE-APAP 7.5-325MG [Percocet 1 tab PO TID 01/01/20 03/25/21 History 7.5-325 mg] Dicyclomine [Bentyl] 10 mg PO TID 05/28/20 03/25/21 History levETIRAcetam [Keppra] 500 mg PO DAILY 02/24/21 03/25/21 History rOPINIRole HCL [Requip] 0.25 mg PO HS 02/24/21 03/25/21 History Carvedilol [Coreg] 25 mg PO BID 03/26/21 03/26/21 History Allergies Allergy/AdvReac Type Severity Reaction Status Date / Time adhesive Allergy Rash/Hives Verified 03/25/21 18:52 amoxicillin Allergy Anaphylaxis Verified 03/25/21 18:52 azithromycin [From Zithromax] Allergy Anaphylaxis Verified 03/25/21 18:52 cephalexin monohydrate Allergy Anaphylaxis Verified 03/25/21 18:52 [From Keflex] ciprofloxacin Allergy Anaphylaxis Verified 03/25/21 18:52 clindamycin Allergy Anaphylaxis Verified 03/25/21 18:52 Iodinated Contrast Media Allergy Swelling Verified 03/25/21 18:52 [Iodinated Contrast- Oral and IV Dye] levofloxacin [From Levaquin] Allergy Rash/Hives Verified 03/25/21 18:52 naproxen Allergy Anaphylaxis Verified 03/25/21 18:52 NSAIDS (Non-Steroidal Allergy Rash/Hives Verified 03/25/21 18:52 Anti-Inflamma shellfish derived Allergy Anaphylaxis Verified 03/25/21 18:52 Sulfa (Sulfonamide Allergy Anaphylaxis Verified 03/25/21 18:52 Antibiotics) sulfamethoxazole Allergy Anaphylaxis Verified 03/25/21 18:52 [From Bactrim] tramadol Allergy Unknown Verified 03/25/21 18:52 trimethoprim [From Bactrim] Allergy Anaphylaxis Verified 03/25/21 18:52 Physical Exam Vitals: Vital Signs Temp Pulse Resp BP Pulse Ox 03/26/21 06:00 81 22 147/83 97 03/26/21 04:00 72 22 149/81 98 03/26/21 02:00 77 22 164/78 97 03/26/21 00:00 79 22 194/121 96 03/25/21 22:21 79 20 177/98 98 03/25/21 20:38 77 20 173/103 97 03/25/21 16:56 98.4 F 71 18 174/89 94 L Intake and Output 03/25/21 03/25/21 03/26/21 14:59 22:59 06:59 Other: Weight 88.451 kg GENERAL: The patient is alert and oriented x3, not in any acute distress. Well developed, well nourished. HEENT: Pupils are round and equally reacting to light. EOMI. No scleral icterus. No conjunctival pallor. Normocephalic, atraumatic. No pharyngeal erythema. No thyromegaly. CARDIOVASCULAR: S1 and S2 present. No murmurs, rubs, or gallops. PULMONARY: Chest is clear to auscultation, no wheezing or crackles. -ABDOMEN: Soft, suprapubic and right groin tenderness, no rebound tenderness or guardin. No rash, no obvious hernia, nondistended, normoactive bowel sounds. No palpable organomegaly. MUSCULOSKELETAL: No joint swelling or deformity. EXTREMITIES: No cyanosis, clubbing, or pedal edema. NEUROLOGICAL: Gross neurological examination did not reveal any focal deficits. SKIN: No rashes. No petechiae Results CBC & Chem 7: 03/25/21 19:15 03/25/21 19:15 Labs: Abnormal Lab Results - Last 24 Hours (Table) 03/25/21 03/25/21 Range/Units 18:25 19:15 Glucose 152 H (74-99) mg/dL Urine Protein Trace H (Negative) Urine Blood Trace H (Negative) Urine Nitrite Positive H (Negative) Urine Bilirubin 2+ H (Negative) Urine RBC 9 H (0-5) /hpf Ur Squamous Epith Cells 5 H (0-4) /hpf Urine Mucus Many H (None) /hpf Assessment and Plan Assessment: Recurrent acute urinary tract infection Hypertension Rheumatoid arthritis History of osteoarthritis Chronic heart failure per documentation COPD, with mild exacerbationlgia History of rheumatoid arthritis History of seizure disorder History of pancreatic fibrosis Chronic back pain History of noncompliance on leaving AMA History of migraine Chronic abdominal pain History of kidney stones Irritable bowel syndrome Degenerative disc disease History of bipolar and depression Nicotine dependence Substance abuse with marijuana Obesity with BMI of 37.5 Plan: This is a pleasant 46 years old female who presents because of urinary tract infection. Follow-up with urologist. Continue with IV fluid We'll start the patient on ceftriaxone Check renal ultrasound check for C. diff although suspicion is low but he started her on antibiotics as well Labs and medication were reviewed.. Continue same treatment. Continue with symptomatic treatment. Resume home medication. Monitor lytes and vitals. DVT and GI prophylaxis. Further recommendations depends on the clinical course of the patient DVT prophylaxis: Subcutaneous heparin GI Prophylaxis: Pepcid Prognosis is guarded
--- NOTE | 2021-03-26 09:13 | US ---
EXAMINATION TYPE: US renals and bladder DATE OF EXAM: 03/26/2021 COMPARISON: CT abdomen and pelvis June 30, 2020 and February 24, 2021 CLINICAL HISTORY: Gross hematuria. chronic uti for 1 year, bilateral flank pain EXAM MEASUREMENTS: Right Kidney: 9.3 x 4.3 x 4.6 cm Left Kidney: 9.0 x 4.5 x 5.0 cm Right Kidney: No hydronephrosis or masses seen Left Kidney: No hydronephrosis or masses seen Bladder: not distended There is no evidence for hydronephrosis at this point in time. No nephrolithiasis is seen. No petrona s are identified on images saved. Renal size is symmetric and lower limits of normal in size. The uri nary bladder is poorly distended and thus suboptimally evaluated. When scanning right kidney adjacent liver is prominent and heterogeneously hyperechoic consistent with diffuse fatty infiltration. IMPRESSION: No hydronephrosis seen bilaterally.
[2021-03-26] MEDS: oxyCODONE-APAP 7.5-325MG 1 EACH TAB PO SCH ×3 (09:17→21:11)
[2021-03-26] MEDS: CITALOPRAM HYDROBROMIDE 20 MG TAB PO SCH (09:17)
[2021-03-26] MEDS: levETIRAcetam 500 MG TAB PO SCH (09:17)
[2021-03-26] MEDS: SPIRONOLACTONE 25 MG TAB PO SCH (09:17)
[2021-03-26] MEDS: SODIUM CHLORIDE 0.9% 1,000 ML IV SCH (10:46)
[2021-03-26] MEDS: FAMOTIDINE 20 MG/2 ML VIAL IV SCH (21:12)
[2021-03-26] MEDS: HEPARIN SODIUM,PORCINE/PF 5,000 UNIT/0.5 ML SYRINGE SQ SCH (21:12)
[2021-03-27] MEDS: SODIUM CHLORIDE 0.9% 1,000 ML IV SCH ×2 (01:44→11:11)
[2021-03-27] MEDS: levETIRAcetam 500 MG TAB PO SCH (08:11)
[2021-03-27] MEDS: FAMOTIDINE 20 MG/2 ML VIAL IV SCH (08:11)
[2021-03-27] MEDS: SPIRONOLACTONE 25 MG TAB PO SCH (08:12)
[2021-03-27] MEDS: oxyCODONE-APAP 7.5-325MG 1 EACH TAB PO SCH ×2 (08:12→15:09)
[2021-03-27] MEDS: carvediloL 12.5 MG TAB PO SCH (08:12)
[2021-03-27] MEDS: CITALOPRAM HYDROBROMIDE 20 MG TAB PO SCH (08:13)
[2021-03-27] MEDS: DICYCLOMINE 10 MG CAP PO SCH ×2 (08:13→15:09)
[2021-03-27] MEDS: HEPARIN SODIUM,PORCINE/PF 5,000 UNIT/0.5 ML SYRINGE SQ SCH (08:14)
--- NOTE | 2021-03-27 08:52 | XR ---
EXAMINATION TYPE: XR Hip Complete RT DATE OF EXAM: 03/27/2021 Comparison: 08/21/2018 Clinical History: 46-year-old female pain Findings: Mild degenerative axial joint space narrowing and marginal spurring at the right hip. No acute fractu re, subluxation, dislocation. Changes similar to minimally progressed from 2019. Impression: Mild right hip OA. No acute osseous abnormality seen.
--- NOTE | 2021-03-27 10:43 | ECHOF ---
Referral Reason:Rule out heart disease MEASUREMENTS -------- HEIGHT: 152.4 cm WEIGHT: 88.5 kg BP: RVIDd: 3.2 cm (< 3.3) IVSd: 0.9 cm (0.6 - 1.1) LVIDd: 3.7 cm (3.9 - 5.3) LVPWd: 1.2 cm (0.6 - 1.1) IVSs: 1.3 cm LVIDs: 2.2 cm LVPWs: 1.6 cm Ao Diam: 2.7 cm (2.0 - 3.7) MV E Phuc: 0.99 m/s MV DecT: 222 ms MV A Phuc: 0.76 m/s MV E/A Ratio: 1.29 RAP: 5.00 mmHg RVSP: 13.79 mmHg FINDINGS -------- Sinus rhythm. This was a techncally difficult study with suboptimal views, , Lumason utilized for enhancement of im ages. LV size, wall thickness and systolic function are normal, with an EF greater than 55%. The left barry tricular size is normal. The RV was not well visualized. The left atrial size is normal. The right atrial size is normal. The aortic valve was not well visualized. The mitral valve was not well visualized. The tricuspid valve was not well visualized. The pulmonic valve was not well visualized. There is no pericardial effusion. CONCLUSIONS -------- 1. This was a techncally difficult study with suboptimal views, , Lumason utilized for enhancement of images. 2. LV size, wall thickness and systolic function are normal, with an EF greater than 55%. 3. The left ventricular size is normal. 4. The RV was not well visualized. 5. The left atrial size is normal. 6. The right atrial size is normal. 7. The aortic valve was not well visualized. 8. The mitral valve was not well visualized. 9. The tricuspid valve was not well visualized. 10. The pulmonic valve was not well visualized. 11. There is no pericardial effusion. CHIEF CARDIOPULMONARY TECHNOLOGIST: Jeannie Rios, CYDNEY
[2021-03-27] MEDS ORDERED: LIDOCAINE 5% PATCH TOPICAL SCH (11:15)
--- NOTE | 2021-03-27 11:28 | P.CRDCN ---
History of Present Illness History of present illness: HISTORY OF PRESENTING ILLNESS This is a pleasant 46-year-old female past medical history significant for COPD, rheumatoid arthritis, hypertension, fibromyalgia and chronic nicotine dependence. She denies prior history of coronary artery disease and does not follow in the office with a sales process manager. We have been asked to see in consultation for chest pain. She presented to the hospital with symptoms of urinary burning. She states she has been being treated for a UTI for the previous one year as an outpatient. She also is having some discomfort in her groin and radiates down her leg, upper back, into both arms and across her chest. The pain in her chest is mostly in the midsternal region. It is described as a sharp sensation exacerbated by deep inspiration or cough. She denies associated shortness of breath, dizziness or palpitations. DIAGNOSTICS EKG reveals sinus mechanism with no acute ST or T wave abnormalities noted. Telemetry tracings indicate sinus mechanism with no acute arrhythmia. Chest xray negative for an acute cardiopulmonary process. Laboratory reviewed, CBC unremarkable, sodium 137, potassium 4.4, creatinine 0.73, troponin negative 2. Current cardiac medications include Coreg 25 mg twice a day, Aldactone 25 mg daily. REVIEW OF SYSTEMS At the time of my exam: CONSTITUTIONAL: Denies fever or chills. CARDIOVASCULAR: Complains of pleuritic chest pain. Denies shortness of breath, orthopnea, PND or palpitations. RESPIRATORY: Denies cough. GASTROINTESTINAL: Denies abdominal pain, diarrhea, constipation, nausea or vomiting. MUSCULOSKELETAL: Denies myalgias. NEUROLOGIC: Denies numbness, tingling, headache or weakness. ENDOCRINE: Denies fatigue, weight change, polydipsia or polyurina. GENITOURINARY: Denies burning, hematuria or urgency with micturation. HEMATOLOGIC: Denies history of anemia or bleeding. PHYSICAL EXAMINATION Blood pressure 151/74 heart rate 60 afebrile and maintaining oxygen saturation on nasal cannula. CONSTITUTIONAL: No apparent distress. HEENT: Head is normocephalic. Pupils are equal, round. Sclerae anicteric. Mucous membranes of the mouth are moist. No JVD. No carotid bruit. CHEST EXAMINATION: Lungs are clear to auscultation. No chest wall tenderness is noted on palpation or with deep breathing. HEART EXAMINATION: Regular rate and rhythm. S1, S2 heard. No murmurs, gallops or rub. ABDOMEN: Soft, nontender. EXTREMITIES: 2+ peripheral pulses, no lower extremity edema and no calf tenderness. NEUROLOGIC EXAMINATION: Patient is awake, alert and oriented x3. ASSESSMENT Chest pain, pleuritic Urinary tract infection Hypertension COPD Chronic nicotine dependence PLAN An acute coronary event has been ruled out. Chest pain is atypical for angina and pleuritic in nature. Recent echocardiogram reviewed, EF 55-60%. No further cardiac work-up required at this time. We will follow along as needed. Thank you kindly for this consultation. Nurse Practitioner note has been reviewed, I agree with a documented findings and plan of care. Patient was seen and examined. 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 IBS, cellulitis of the chin, History of Any Multi-Drug Resistant Organisms: MRSA Date of last positivie culture/infection: 07/2016 MDRO Source:: chin Past Surgical History: Section, Cholecystectomy, Hysterectomy, Tubal Ligation Additional Past Surgical History / Comment(s): oral surgery . Pancreas biopsy May 2015. Past Anesthesia/Blood Transfusion Reactions: No Reported Reaction Past Psychological History: ADD/ADHD, Anxiety, Bipolar, Depression Smoking Status: Current every day smoker Past Alcohol Use History: None Reported Past Drug Use History: Marijuana - Past Family History Father Family Medical History: No Reported History Additional Family Medical History / Comment(s): ADOPTED Medications and Allergies Home Medications Medication Instructions Recorded Confirmed Type Spironolactone [Aldactone] 25 mg PO DAILY 02/05/17 03/25/21 History QUEtiapine [SEROquel] 150 mg PO HS 02/25/19 03/25/21 History Citalopram Hydrobromide [CeleXA] 40 mg PO DAILY 06/12/19 03/25/21 History oxyCODONE-APAP 7.5-325MG [Percocet 1 tab PO TID 01/01/20 03/25/21 History 7.5-325 mg] Dicyclomine [Bentyl] 10 mg PO TID 05/28/20 03/25/21 History levETIRAcetam [Keppra] 500 mg PO DAILY 02/24/21 03/25/21 History rOPINIRole HCL [Requip] 0.25 mg PO HS 02/24/21 03/25/21 History Carvedilol [Coreg] 25 mg PO BID 03/26/21 03/26/21 History Allergies Allergy/AdvReac Type Severity Reaction Status Date / Time adhesive Allergy Rash/Hives Verified 03/25/21 18:52 amoxicillin Allergy Anaphylaxis Verified 03/25/21 18:52 azithromycin [From Zithromax] Allergy Anaphylaxis Verified 03/25/21 18:52 cephalexin monohydrate Allergy Anaphylaxis Verified 03/25/21 18:52 [From Keflex] ciprofloxacin Allergy Anaphylaxis Verified 03/25/21 18:52 clindamycin Allergy Anaphylaxis Verified 03/25/21 18:52 Iodinated Contrast Media Allergy Swelling Verified 03/25/21 18:52 [Iodinated Contrast- Oral and IV Dye] levofloxacin [From Levaquin] Allergy Rash/Hives Verified 03/25/21 18:52 naproxen Allergy Anaphylaxis Verified 03/25/21 18:52 NSAIDS (Non-Steroidal Allergy Rash/Hives Verified 03/25/21 18:52 Anti-Inflamma shellfish derived Allergy Anaphylaxis Verified 03/25/21 18:52 Sulfa (Sulfonamide Allergy Anaphylaxis Verified 03/25/21 18:52 Antibiotics) sulfamethoxazole Allergy Anaphylaxis Verified 03/25/21 18:52 [From Bactrim] tramadol Allergy Unknown Verified 03/25/21 18:52 trimethoprim [From Bactrim] Allergy Anaphylaxis Verified 03/25/21 18:52 Physical Exam Vitals: Vital Signs Temp Pulse Pulse Pulse Resp BP BP 03/27/21 07:11 03/27/21 07:05 60 68 16 03/27/21 07:00 98.6 F 68 16 151/74 03/27/21 03:28 98.9 F 60 16 145/82 03/27/21 01:41 18 03/26/21 23:30 98.4 F 77 18 155/81 03/26/21 20:00 18 03/26/21 19:41 98.5 F 73 18 161/85 03/26/21 19:04 98 F 60 16 154/89 03/26/21 17:48 65 16 03/26/21 17:24 98 F 65 16 200/91 03/26/21 13:34 18 03/26/21 09:18 70 18 148/98 Pulse Ox 03/27/21 07:11 95 03/27/21 07:05 03/27/21 07:00 99 03/27/21 03:28 100 03/27/21 01:41 03/26/21 23:30 94 L 03/26/21 20:00 03/26/21 19:41 94 L 03/26/21 19:04 98 03/26/21 17:48 03/26/21 17:24 98 03/26/21 13:34 03/26/21 09:18 96 Intake and Output 03/26/21 03/27/21 03/27/21 22:59 06:59 14:59 Intake Total 0 Balance 0 Intake: Oral 0 Results 03/25/21 19:15 03/25/21 19:15 Cardiac Enzymes 03/26/21 Range/Units 21:39 Troponin I <0.012 (0.000-0.034) ng/mL Current Medications Generic Name Dose Route Start Last Admin Trade Name Kristy PRN Reason Stop Dose Admin Carvedilol 25 mg 03/26/21 09:00 03/27/21 08:12 Carvedilol 12.5 Mg Tab PO 25 mg BID CAMERON Administration Citalopram Hydrobromide 40 mg 03/26/21 09:00 03/27/21 08:13 Citalopram Hydrobromide 20 Mg Tab PO 40 mg DAILY CAMERON Administration Dicyclomine HCl 10 mg 03/26/21 00:30 03/27/21 08:13 Dicyclomine 10 Mg Cap PO 10 mg TID CAMERON Administration Famotidine 20 mg 03/26/21 21:00 03/27/21 08:11 Famotidine 20 Mg/2 Ml Vial IV 20 mg Q12HR CAMERON Administration Heparin Sodium (Porcine) 5,000 unit 03/26/21 21:00 03/27/21 08:14 Heparin Sodium,Porcine/Pf 5,000 Unit/0.5 Ml Syringe SQ 5,000 unit Q12HR CAMERON Administration Sodium Chloride 1,000 mls @ 75 mls/hr 03/25/21 21:15 03/27/21 01:44 Saline 0.9% IV Not Given .[id number] CAMERON Ceftriaxone Sodium 1 gm/ 50 mls @ 100 mls/hr 03/26/21 09:00 03/27/21 08:14 Sodium Chloride IVPB 100 mls/hr Q24HR CAMERON Administration Levetiracetam 500 mg 03/26/21 09:00 03/27/21 08:11 Levetiracetam 500 Mg Tab PO 500 mg DAILY CAMERON Administration Naloxone HCl 0.2 mg 03/25/21 21:08 Naloxone 0.4 Mg/Ml 1 Ml Vial IV Q2M PRN Opioid Reversal Oxycodone/Acetaminophen 1 each 03/26/21 09:00 03/27/21 08:12 Oxycodone-Apap 7.5-325mg 1 Each Tab PO 1 each TID CAMERON Administration Quetiapine Fumarate 150 mg 03/26/21 00:30 03/26/21 21:11 Quetiapine 50 Mg Tab PO 150 mg HS CAMERON Administration Ropinirole HCl 0.25 mg 03/26/21 00:30 03/26/21 21:12 Ropinirole Hcl 0.25 Mg Tab PO 0.25 mg HS CAMERON Administration Spironolactone 25 mg 03/26/21 09:00 03/27/21 08:12 Spironolactone 25 Mg Tab PO 25 mg DAILY CAMERON Administration Intake and Output 03/26/21 03/27/21 03/27/21 22:59 06:59 14:59 Intake Total 0 Balance 0 Intake: Oral 0 03/25/21 19:15 03/25/21 19:15
[2021-03-27 16:11] VITALS: BP 180/90; PULSE 78; RESP 18; TEMP 98.7
[2021-03-27] MEDS ORDERED: ACETAMINOPHEN TAB 325 MG TAB PO PRN (18:23)
--- NOTE | 2021-03-27 18:52 | P.PN ---
Subjective This is a pleasant 45 years old female with past medical history of heart failure, COPD, CVA/TIA, fibromyalgia, hypertension, osteoarthritis, rheumatoid arthritis, seizure disorder, pancreatic fibrosis, chronic back pain, migraines, chronic abdominal pain, kidney stones, irritable bowel syndrome, degenerative disc disease, bipolar and depression, also she smokes cigarettes and marijuana. She has history of hysterectomy patient also complains from chronic upper and lower back pain related to her fibromyalgia since 2006, she follows up with Dr. Wick as an outpatient -She has history of COPD and she follows up with Dr. Su, she uses 2 L of oxygen at night but not CPAP/BiPAP machine Presents because of chronic UTI as she describes. Patient states that she has recurrent UTI treated with Macrobid which give her some relief but last time it did not help her much so decided to come to emergency room complaining of from lower abdominal suprapubic pain and radiating to the right groin with some tenderness, she rates the pain at 7/10 felt like throbbing associated with 2 days of dysuria, urgency and hesitancy with urination also she had diarrhea for 2 days as you vomiting. No other abdominal pain. No dyspnea or chest pain. No headache She smokes down to 2 cigarettes per day, she is counseled and willing to continue quitting, she declines nicotine patch. No alcohol all orifices and proximal She is bipolar but denies active symptoms of depression. She denies suicidal ideation. She states she is taking Rocephin/ceftriaxone before and he agrees to start the treatment Vitals are stable. Blood pressure on the high side 177/98 on admission, currently 147/83. Labs including CBC, BMP, liver enzymes are unremarkable. Troponin is less than 0.012. Urine analysis suspicious for infection EKG showing normal sinus rhythm at [address]-T changes and Chest x-ray: No acute process In the emergency room patient was started on normal saline 75 mL/h. She has multiple drug ALLERGIES and she was not started on antibiotic Patient has multiple hospitalization, I checked with pharmacy she received ceftriaxone, Keflex, doxycycline, levofloxacin and vancomycin during her previous hospitalizations 03/27/2021 Patient today says her complaining from right groin pain she was complaining of from chest pain in the morning, in the afternoon she complained from back pain and lidocaine patch was provided and in the evening he was crying from pain in her left groin besides her right groin. Patient was asking specifically to be given Dilaudid stating that she is ALLERGIC to NSAIDs. Explained for the patient risks of these medications felt more than benefits especially she is already on Percocet, risks including but not limited to cardiopulmonary arrest, and/or addiction. Patient with possible drug-seeking behavior however we want to rule out organic causes of pain therefore serial troponins were negative, echocardiogram showing preserved left ventricular function and astronomy professor cleared her for discharge. Also right hip x-ray showing only mild osteoarthritis and orthopedic team evaluated the patient per bedside nurse and recommended gynecological evaluation given her history. We trying to treat her pain without narcotics, therefore lidocaine patch as provided as well as Tylenol. We tried to limit use of narcotics and benzodiazepines as much as possible. urologist recommended cystoscopy for recurrent UTI although he does not have such records,also pt noted her symptoms are not due to UTI as her urine culture came back today negative and she has no fever or leukocytosis to support the diagnosis of UTI , hence her antibiotics with ceftriaxone were stopped Her blood pressure is uncontrolled, with systolic blood pressure 150s to 180s, Norvasc 5 mg and to today. Patient is afebrile. Discontinue ceftriaxone, discontinue IV fluids. Encourage diet Objective - Vital Signs Vital signs: Vital Signs Temp 98.7 F 03/27/21 16:04 Pulse 78 03/27/21 16:04 Resp 18 03/27/21 16:04 BP 180/90 03/27/21 16:04 Pulse Ox 98 03/27/21 11:21 Intake & Output 03/26/21 03/27/21 03/27/21 18:59 06:59 18:59 Intake Total 0 180 Balance 0 180 Weight 88.451 kg Intake: Oral 0 180 - Exam -GENERAL: The patient is alert and oriented x3, not in any acute distress. M orbidly obese HEENT: Pupils are round and equally reacting to light. EOMI. No scleral icterus. No conjunctival pallor. Normocephalic, atraumatic. No pharyngeal erythema. No thyromegaly. CARDIOVASCULAR: S1 and S2 present. No murmurs, rubs, or gallops. PULMONARY: Chest is clear to auscultation, no wheezing or crackles. -ABDOMEN: Soft, no abdominal tenderness but right groin tenderness, no rebound tenderness or guardin. No rash, no obvious hernia, nondistended, normoactive bowel sounds. No palpable organomegaly. MUSCULOSKELETAL: No joint swelling or deformity. EXTREMITIES: No cyanosis, clubbing, or pedal edema. NEUROLOGICAL: Gross neurological examination did not reveal any focal deficits. SKIN: No rashes. No petechiae - Labs CBC & Chem 7: 03/25/21 19:15 03/25/21 19:15 Labs: Microbiology - Last 24 Hours (Table) 03/26/21 09:27 Urine Culture - Final Urine,Clean Catch Assessment and Plan Assessment: Patient is with asymptomatic bacteriuria rather than acute urinary tract infection chest pain, cardiac causes ruled out Multiple pains including chest pain, back pain, bilateral groin pain Hypertension Rheumatoid arthritis History of osteoarthritis Chronic heart failure per documentation COPD, with mild exacerbationlgia History of rheumatoid arthritis History of seizure disorder History of pancreatic fibrosis Chronic back pain History of noncompliance on leaving AMA History of migraine Chronic abdominal pain History of kidney stones Irritable bowel syndrome Degenerative disc disease History of bipolar and depression Nicotine dependence Substance abuse with marijuana Obesity with BMI of 37.5 Plan: This is a pleasant 46 years old female who presents because of urinary tract infection. Follow-up with urologist. Continue with IV fluid We'll discontinue ceftriaxone Urologist recommended cystoscopy as an outpatient for recurrent UTI, however no UTI during this admission as negative urine culture Pain management Labs and medication were reviewed.. Continue same treatment. Continue with symptomatic treatment. Resume home medication. Monitor lytes and vitals. DVT and GI prophylaxis. Further recommendations depends on the clinical course of the patient DVT prophylaxis: Subcutaneous heparin GI Prophylaxis: Pepcid Prognosis is guarded
[2021-03-27] MEDS ORDERED: amLODIPine 5 MG TAB PO SCH (19:00)
[2021-03-27] MEDS ORDERED: FAMOTIDINE 20 MG TAB PO SCH (21:00)
--- NOTE | 2021-03-28 10:17 | P.CNOR ---
History of Present Illness - [facility] Consult date: 03/28/21 Requesting physician: Jamaal Leonard Consult reason: other (Bilateral groin pain) History of present illness: She is a very pleasant 46-year-old female who is seen and examined at bedside for further evaluation after consultation was placed for bilateral groin pain. Nursing bilateral groin pain over the past year without injury. She states his pain is present every single day and has some good days and some bad days. She is also chronically being treated for a urinary tract infection as have difficulty clearing this infection over the past year. She has been on multiple antibiotic medications without clearance of her urinary tract infection. She continues to have pain with urination. She has been seen and examined by urology was not planning for further evaluation in the hospital setting. Urology may plan for a cystoscopy in the outpatient setting. She denies any low back pain or lower extremity radiculopathy bilaterally. She has generalized weakness in the lower extremities. She is a regular ambulator. She states she does not participate in any strenuous activities in her life. She does watch her grandchildren. She has a history of a hysterectomy. She has not followed with gynecology for further evaluation in 11 years. During her admission she has been seen by medicine and urology. She was experiencing some chest pain and has been examined by cardiology as well. Patient does admit to a history including COPD, rheumatoid arthritis, hypertension, fibromyalgia, chronic nicotine dependence, and obesity. Patient states she has not had any evaluation with Gen. surgery for her ongoing pain. 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 IBS, cellulitis of the chin, History of Any Multi-Drug Resistant Organisms: MRSA Year Discovered:: 07/2016 MDRO Source:: [facility] Past Surgical History: Section, Cholecystectomy, Hysterectomy, Tubal Ligation Additional Past Surgical History / Comment(s): oral surgery . Pancreas biopsy May 2015. Past Anesthesia/Blood Transfusion Reactions: No Reported Reaction Past Psychological History: ADD/ADHD, Anxiety, Bipolar, Depression Smoking Status: Current every day smoker Past Alcohol Use History: None Reported Past Drug Use History: Marijuana - Past Family History Father Family Medical History: No Reported History Additional Family Medical History / Comment(s): ADOPTED Medications and Allergies Home Medications Medication Instructions Recorded Confirmed Type Spironolactone [Aldactone] 25 mg PO DAILY 02/05/17 03/25/21 History QUEtiapine [SEROquel] 150 mg PO HS 02/25/19 03/25/21 History Citalopram Hydrobromide [CeleXA] 40 mg PO DAILY 06/12/19 03/25/21 History oxyCODONE-APAP 7.5-325MG [Percocet 1 tab PO TID 01/01/20 03/25/21 History 7.5-325 mg] Dicyclomine [Bentyl] 10 mg PO TID 05/28/20 03/25/21 History levETIRAcetam [Keppra] 500 mg PO DAILY 02/24/21 03/25/21 History rOPINIRole HCL [Requip] 0.25 mg PO HS 02/24/21 03/25/21 History Carvedilol [Coreg] 25 mg PO BID 03/26/21 03/26/21 History Allergies Allergy/AdvReac Type Severity Reaction Status Date / Time adhesive Allergy Rash/Hives Verified 03/25/21 18:52 amoxicillin Allergy Anaphylaxis Verified 03/25/21 18:52 azithromycin [From Zithromax] Allergy Anaphylaxis Verified 03/25/21 18:52 cephalexin monohydrate Allergy Anaphylaxis Verified 03/25/21 18:52 [From Keflex] ciprofloxacin Allergy Anaphylaxis Verified 03/25/21 18:52 clindamycin Allergy Anaphylaxis Verified 03/25/21 18:52 Iodinated Contrast Media Allergy Swelling Verified 03/25/21 18:52 [Iodinated Contrast- Oral and IV Dye] levofloxacin [From Levaquin] Allergy Rash/Hives Verified 03/25/21 18:52 naproxen Allergy Anaphylaxis Verified 03/25/21 18:52 NSAIDS (Non-Steroidal Allergy Rash/Hives Verified 03/25/21 18:52 Anti-Inflamma shellfish derived Allergy Anaphylaxis Verified 03/25/21 18:52 Sulfa (Sulfonamide Allergy Anaphylaxis Verified 03/25/21 18:52 Antibiotics) sulfamethoxazole Allergy Anaphylaxis Verified 03/25/21 18:52 [From Bactrim] tramadol Allergy Unknown Verified 03/25/21 18:52 trimethoprim [From Bactrim] Allergy Anaphylaxis Verified 03/25/21 18:52 Physical Examination Physical exam: Patient is awake, alert, and oriented 3 Vital signs stable Good chest excursion with deep inspiration and expiration Abdomen soft nontender Examination of lumbar spine reveals skin is intact with no abrasions, aspirations, or bruises; no erythema, purulence or signs of infection Evidence a tattoo over the upper lumbar spine Dorsiflexion, plantarflexion, and extensor hallucis longus positive sustained bilaterally She does have some difficulty with lifting the lower extremities off the bed independently bilaterally No lower extremity hyperreflexia bilaterally Straight leg test negative bilateral lower extremities No signs or symptoms of DVT; no calf pain No significant increased pain with internal and external rotation of the hips bilaterally Neurovascularly intact Results Pertinent studies: X-rays of the right hip taken on 03/27/2021: Mild osteoarthritic the right hip; no evidence of fracture or dislocation within the right hip CT abdomen and pelvis reviewed for orthopedic purposes taken on 02/24/2021: No obvious large herniated nucleus pulposus; L1-2 mild degenerative disc disease with some anterior osteophytic spurring; no evidence of vertebral body compression fracture; overall alignment is adequately maintained CT of the lumbar spine reviewed for orthopedic spine purposes taken on 09/10/2019: Overall alignment is adequately maintained; no significant degenerative disc disease; no spondylolisthesis; no compression fracture deformity; no obvious bony destruction - Labs Labs: Microbiology - Last 24 Hours (Table) 03/26/21 09:27 Urine Culture - Final Urine,Clean Catch H & H 03/25/21 Range/Units 19:15 Hgb 13.6 (11.4-16.0) gm/dL Hct 41.9 (34.0-46.0) % Result Diagrams: 03/25/21 19:15 03/25/21 19:15 Assessment and Plan Assessment: Assessment: Chronic bilateral groin pain Chronic UTI Chronic dysuria L1-2 degenerative disc disease with osteophytic spurring Mild osteoarthritic right hip joint COPD Rheumatoid arthritis Hypertension Fibromyalgia Chronic nicotine dependence Obesity History of hysterectomy (1) Dysuria Status: Acute Code(s): R30.0 - DYSURIA SNOMED Code(s): 20274874 (2) Chronic UTI Status: Acute Code(s): N39.0 - URINARY TRACT INFECTION, SITE NOT SPECIFIED SNOMED Code(s): 929815674 (3) Bilateral groin pain Status: Acute Code(s): R10.31 - RIGHT LOWER QUADRANT PAIN; R10.32 - LEFT LOWER QUADRANT PAIN SNOMED Code(s): 19660192378632573 (4) Lumbar degenerative disc disease Status: Acute Code(s): M51.36 - OTHER INTERVERTEBRAL DISC DEGENERATION, LUMBAR REGION SNOMED Code(s): 96047440 (5) Osteoarthritis of right hip Status: Acute Code(s): M16.11 - UNILATERAL PRIMARY OSTEOARTHRITIS, RIGHT HIP SNOMED Code(s): 118095371883475 (6) Rheumatoid arthritis Status: Acute Code(s): M06.9 - RHEUMATOID ARTHRITIS, UNSPECIFIED SNOMED Code(s): 84483466 (7) Hypertension Status: Acute Code(s): I10 - ESSENTIAL (PRIMARY) HYPERTENSION SNOMED Code(s): 42924519 (8) Nicotine dependence Status: Acute Code(s): F17.200 - NICOTINE DEPENDENCE, UNSPECIFIED, UNCOMPLICATED SNOMED Code(s): 14155441 (9) Obesity (BMI 30-39.9) Status: Acute Code(s): E66.9 - OBESITY, UNSPECIFIED SNOMED Code(s): 024950995 (10) History of hysterectomy Status: Acute Code(s): Z90.710 - ACQUIRED ABSENCE OF BOTH CERVIX AND UTERUS SNOMED Code(s): 832169300 (11) COPD (chronic obstructive pulmonary disease) Status: Acute Code(s): J44.9 - CHRONIC OBSTRUCTIVE PULMONARY DISEASE, U NSPECIFIED SNOMED Code(s): 94297970 (12) Fibromyalgia Status: Acute Code(s): M79.7 - FIBROMYALGIA SNOMED Code(s): 385551777 Plan: Plan: 1. After further discussion with Dr. Derik Rolon, reviewing of imaging, further discussion with the patient, and physical examination of the patient, we are not currently planning for further evaluation or further imaging in regards to the patient's lumbar spine or pelvis as the patient's symptoms do not appear to be stemming specifically from her lumbar spine and do not seem to be orthopedic in nature. She does not experience any low back pain or lower extremity radiculopathy. She has had chronic dysuria with UTI and has had difficulty clearing her UTI over the past year. She has ongoing chronic bilateral groin pain in which the pain varies in severity from day-to-day. She denies any injuries. She has not had further evaluation with other medical providers including general surgery or gynecology. She has a history of hysterectomy performed previously but has not seen gynecology in 11 years. After further discussion with the patient, she does not feel she needs further workup from an orthopedic standpoint. She states she would be willing to follow with gynecology for further evaluation. She will then continue following with urology as well. At this time will currently planned to sign off on the patient from an orthopedic spine standpoint. We did discuss she can follow-up outpatient setting on as-needed basis. 2. Patient will continue to be seen and examined by other medical providers including medicine. We discussed patient could benefit from consultation with general surgery and/or gynecology for her chronic symptoms. Time with Patient: Greater than 30 (Including obtaining history, physical examination, reviewing of imaging, and dictation.)
== END 2021-03-27 19:10 | disposition left against medical advice (07) ==
LOC: EC 16:13 → 1SOBS 22:36 → 6NMEDSUR 03-26 06:19 → 3SCARD 03-26 15:55
PROVIDERS: ADMIT Hospitalist; ATTEND Hospitalist
DX: R07.89 Other chest pain (principal); N39.0 Urinary tract infection, site not specified; G89.29 Other chronic pain; E66.9 Obesity, unspecified; F17.200 Nicotine dependence, unspecified, uncomplicated; F31.9 Bipolar disorder, unspecified; F41.9 Anxiety disorder, unspecified; F90.9 Attention-deficit hyperactivity disorder, unspecified type; G40.909 Epilepsy, unspecified, not intractable, without status epilepticus; I11.0 Hypertensive heart disease with heart failure; I50.9 Heart failure, unspecified; J44.9 Chronic obstructive pulmonary disease, unspecified; K58.9 Irritable bowel syndrome, unspecified; M06.9 Rheumatoid arthritis, unspecified; M16.11 Unilateral primary osteoarthritis, right hip; M51.36 Other intervertebral disc degeneration, lumbar region; M79.7 Fibromyalgia; Z68.37 Body mass index [BMI] 37.0-37.9, adult; Z79.899 Other long term (current) drug therapy; Z86.73 Personal history of transient ischemic attack (TIA), and cerebral infarction without residual deficits; Z87.440 Personal history of urinary (tract) infections; Z87.442 Personal history of urinary calculi; Z88.6 Allergy status to analgesic agent; Z90.710 Acquired absence of both cervix and uterus; Z91.19 Patient's noncompliance with other medical treatment and regimen
CPT/HCPCS: 96376 ×4; 96361 ×2; 96366; 96372 ×2; 96375 ×2; 96365; 99285; 36415; 94760; 93005; 80053; 84484 ×2; 85025; 81001; 87324; 87086; 73502; 71046; 76770; G0378 ×5; C8929; J0696 ×2; J1170 ×2; Q9950; J1644 ×2; 93306

== ENCOUNTER 2021-09-12 19:15 | Emergency (ER) | payer MEDICARE, OTHER ==
[2021-09-12 19:23] VITALS: TEMP 99.3
[2021-09-12] MEDS ORDERED: ONDANSETRON 4 MG/2 ML VIAL IVP STA (21:29)
[2021-09-12] MEDS ORDERED: HYDROmorphone 1 MG/ML 1 ML SYRINGE IVP STA ×2 (21:29→23:44)
[2021-09-12] MEDS ORDERED: methylPREDNISolone SOD SUCCI 125 MG/2 ML VIAL IV STA (21:36)
[2021-09-12] MEDS ORDERED: diphenhydrAMINE 50 MG/ML 1 ML VIAL IVP STA (21:36)
[2021-09-12] MEDS ORDERED: FAMOTIDINE 20 MG/2 ML VIAL IV STA (21:37)
--- NOTE | 2021-09-12 22:09 | ED ---
Abdominal Pain HPI - General Chief Complaint: Abdominal Pain Stated Complaint: fever/side pain Time Seen by Provider: 09/12/21 21:03 Source: patient Mode of arrival: ambulatory Limitations: no limitations - History of Present Illness Initial Comments: Patient is a 46-year-old female who presents to the emergency department with a chief complaint of right lower quadrant abdominal pain 5 days. Patient reports constant severe pain with radiation to the right flank and right lower back. Patient reports nausea and vomiting, approximately 10 times a day. She reports associated fever and chills. She denies pain when urinating or blood in the urine. She reports history of hysterectomy, cholecystectomy, pancreatitis, kidney infection, and kidney stones. Patient denies headache, chest pain, increased shortness of breath, constipation, and diarrhea. - Related Data Home Medications Medication Instructions Recorded Confirmed Spironolactone [Aldactone] 25 mg PO DAILY 02/05/17 03/25/21 QUEtiapine [SEROquel] 150 mg PO HS 02/25/19 03/25/21 Citalopram Hydrobromide [CeleXA] 40 mg PO DAILY 06/12/19 03/25/21 oxyCODONE-APAP 7.5-325MG [Percocet 1 tab PO TID 01/01/20 03/25/21 7.5-325 mg] Dicyclomine [Bentyl] 10 mg PO TID 05/28/20 03/25/21 levETIRAcetam [Keppra] 500 mg PO DAILY 02/24/21 03/25/21 rOPINIRole HCL [Requip] 0.25 mg PO HS 02/24/21 03/25/21 Carvedilol [Coreg] 25 mg PO BID 03/26/21 03/26/21 Previous Rx's Medication Instructions Recorded Ondansetron Odt [Zofran Odt] 4 mg PO Q8HR PRN 7 Days #21 tab 09/12/21 Allergies Allergy/AdvReac Type Severity Reaction Status Date / Time adhesive Allergy Rash/Hives Verified 09/12/21 19:23 amoxicillin Allergy Anaphylaxis Verified 09/12/21 19:23 azithromycin [From Zithromax] Allergy Anaphylaxis Verified 09/12/21 19:23 cephalexin monohydrate Allergy Anaphylaxis Verified 09/12/21 19:23 [From Keflex] ciprofloxacin Allergy Anaphylaxis Verified 09/12/21 19:23 clindamycin Allergy Anaphylaxis Verified 09/12/21 19:23 Iodinated Contrast Media Allergy Swelling Verified 09/12/21 19:23 [Iodinated Contrast- Oral and IV Dye] levofloxacin [From Levaquin] Allergy Rash/Hives Verified 09/12/21 19:23 naproxen Allergy Anaphylaxis Verified 09/12/21 19:23 NSAIDS (Non-Steroidal Allergy Rash/Hives Verified 09/12/21 19:23 Anti-Inflamma shellfish derived Allergy Anaphylaxis Verified 09/12/21 19:23 Sulfa (Sulfonamide Allergy Anaphylaxis Verified 09/12/21 19:23 Antibiotics) sulfamethoxazole Allergy Anaphylaxis Verified 09/12/21 19:23 [From Bactrim] tramadol Allergy Unknown Verified 09/12/21 19:23 trimethoprim [From Bactrim] Allergy Anaphylaxis Verified 09/12/21 19:23 Review of Systems ROS Statement: Those systems with pertinent positive or pertinent negative responses have been documented in the HPI. ROS Other: All systems not noted in ROS Statement are negative. 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 IBS, cellulitis of the chin, History of Any Multi-Drug Resistant Organisms: MRSA Date of last positivie culture/infection: 07/2016 MDRO Source:: chin Past Surgical History: Section, Cholecystectomy, Hysterectomy, Tubal Ligation Additional Past Surgical History / Comment(s): oral surgery . Pancreas biopsy May 2015. Past Anesthesia/Blood Transfusion Reactions: No Reported Reaction Past Psychological History: ADD/ADHD, Anxiety, Bipolar, Depression Smoking Status: Current every day smoker Past Alcohol Use History: None Reported Past Drug Use History: Marijuana - Past Family History Father Family Medical History: No Reported History Additional Family Medical History / Comment(s): ADOPTED General Exam Limitations: no limitations General appearance: alert, in no apparent distress Head exam: Present: atraumatic, normocephalic, normal inspection Eye exam: Present: normal appearance, PERRL, EOMI. Absent: scleral icterus, conjunctival injection, periorbital swelling ENT exam: Present: mucous membranes moist Neck exam: Present: normal inspection Respiratory exam: Present: wheezes (right-sided). Absent: respiratory distress, decreased breath sounds Cardiovascular Exam: Present: regular rate, normal rhythm, normal heart sounds. Absent: systolic murmur, diastolic murmur, rubs, gallop, clicks GI/Abdominal exam: Present: soft, tenderness (RLQ). Absent: distended, guarding, rebound, rigid Extremities exam: Present: normal inspection Back exam: Present: normal inspection, full ROM, CVA tenderness (R). Absent: CV A tenderness (L), muscle spasm, paraspinal tenderness, vertebral tenderness, rash noted Neurological exam: Present: alert, oriented X3, CN II-XII intact Psychiatric exam: Present: normal affect, normal mood Skin exam: Present: warm, dry, intact, normal color. Absent: rash Course Vital Signs 09/12/21 19:20 Temperature 99.3 F Pulse Rate 90 Respiratory 18 Rate Blood Pressure 156/70 O2 Sat by Pulse 94 L Oximetry Medical Decision Making - Medical Decision Making This is a 46-year-old female who presents with right lower quadrant abdominal pain, nausea, and vomiting 5 days. Thorough history and examination were performed. Patient is afebrile and hemodynamically stable. Laboratory studies are unremarkable. Urinalysis was contaminated with [address] of the abdomen/pelvis with contrast reveals no acute abnormality, no renal stone or obstruction, normal appendix, and no adverse change compared old exam. Patient was placed on 2 L of oxygen nasal cannula as she was at home for COPD. Patient was given prophylactic medication for iodine allergy before CT of the abdomen/pelvis with contrast. She was also given Dilaudid and Zofran for pain and nausea. On reevaluation pain and nausea are moderately improved. Case discussed with patient. Patient will be discharged with Zofran prescription. She is instructed to take her home medication Percocet and increase fluid intake as tolerated. Return parameters discussed. Patient verbalizes understanding and is agreeable to plan. Dr. Olivares is my attending. - Lab Data Result diagrams: 09/12/21 21:59 09/12/21 21:59 Lab Results 09/12/21 09/12/21 09/12/21 Range/Units 21:59 21:59 22:46 WBC 9.9 (3.8-10.6) k/uL RBC 4.50 (3.80-5.40) m/uL Hgb 12.9 (11.4-16.0) gm/dL Hct 40.3 (34.0-46.0) % MCV 89.5 (80.0-100.0) fL MCH 28.6 (25.0-35.0) pg MCHC 32.0 (31.0-37.0) g/dL RDW 13.4 (11.5-15.5) % Plt Count 300 (150-450) k/uL MPV 6.8 Neutrophils % 49 % Lymphocytes % 43 % Monocytes % 5 % Eosinophils % 2 % Basophils % 1 % Neutrophils # 4.8 (1.3-7.7) k/uL Lymphocytes # 4.2 (1.0-4.8) k/uL Monocytes # 0.5 (0-1.0) k/uL Eosinophils # 0.2 (0-0.7) k/uL Basophils # 0.1 (0-0.2) k/uL Hypochromasia Slight Sodium 138 (137-145) mmol/L Potassium 4.1 (3.5-5.1) mmol/L Chloride 101 (98-107) mmol/L Carbon Dioxide 33 H (22-30) mmol/L Anion Gap 4 mmol/L BUN 28 H (7-17) mg/dL Creatinine 0.89 (0.52-1.04) mg/dL Est GFR (CKD-EPI)AfAm >90 (>60 ml/min/1.73 sqM) Est GFR (CKD-EPI)NonAf 78 (>60 ml/min/1.73 sqM) Glucose 107 H (74-99) mg/dL Calcium 8.4 (8.4-10.2) mg/dL Total Bilirubin 0.4 (0.2-1.3) mg/dL AST 20 (14-36) U/L ALT 12 (4-34) U/L Alkaline Phosphatase 60 (38-126) U/L Total Protein 6.4 (6.3-8.2) g/dL Albumin 3.7 (3.5-5.0) g/dL Lipase 56 (23-300) U/L Urine Color Yellow Urine Appearance Clear (Clear) Urine pH 7.0 (5.0-8.0) Ur Specific [place] >1.050 H (1.001-1.035) Urine Protein 1+ H (Negative) Urine Glucose (UA) Negative (Negative) Urine Ketones Negative (Negative) Urine Blood Trace H (Negative) Urine Nitrite Negative (Negative) Urine Bilirubin Negative (Negative) Urine Urobilinogen 2.0 (<2.0) mg/dL Ur Leukocyte Esterase Moderate H (Negative) Urine RBC 10 H (0-5) /hpf Urine WBC 11 H (0-5) /hpf Ur Squamous Epith Cells 14 H (0-4) /hpf Hyaline Casts 1 (0-2) /lpf Urine Mucus Rare H (None) /hpf Disposition Clinical Impression: Abdominal pain Disposition: HOME SELF-CARE Condition: Good Instructions (If sedation given, give patient instructions): Abdominal Pain (ED) Additional Instructions: Take your previously prescribed Percocet for abdominal pain. Take Zofran as prescribed. Follow-up with primary care provider in one to 2 days. Return to the emergency department if you experience new, concerning, or worsening symptoms. Prescriptions: Ondansetron Odt [Zofran Odt] 4 mg PO Q8HR PRN 7 Days #21 tab PRN Reason: Nausea Is patient prescribed a controlled substance at d/c from ED?: No Referrals: Kaleb Huston DO [Primary Care Provider] - 1-2 days Time of Disposition: 23:46
[2021-09-12 22:12] LABS: Basophils # (A) 0.1 k/uL (0-0.2); Basophils % (A) 1 %; Eosinophils # (A) 0.2 k/uL (0-0.7); Eosinophils % (A) 2 %; HCT 40.3 % (34.0-46.0); HGB 12.9 gm/dL (11.4-16.0); Hypochromasia Slight; Lymphocytes # (A) 4.2 k/uL (1.0-4.8); Lymphocytes % (A) 43 %; MCH 28.6 pg (25.0-35.0); MCV 89.5 fL (80.0-100.0); Mean Platelet Volume 6.8; Monocytes # (A) 0.5 k/uL (0-1.0); Monocytes % (A) 5 %; Neutrophils # (A) 4.8 k/uL (1.3-7.7); Neutrophils % (A) 49 %; Platelet Count 300 k/uL (150-450); RDW 13.4 % (11.5-15.5); WBC 9.9 k/uL (3.8-10.6)
[2021-09-12 22:20] LABS: ALT 12 U/L (4-34); AST 20 U/L (14-36); African American GFR (CKD) >90 (>60 ml/min/1.73 sqM); Albumin 3.7 g/dL (3.5-5.0); Alkaline Phosphatase 60 U/L (38-126); Anion Gap 4 mmol/L; Blood Urea Nitrogen 28 mg/dL (7-17); Calcium 8.4 mg/dL (8.4-10.2); Carbon Dioxide 33 mmol/L (22-30); Chloride 101 mmol/L (98-107); Glucose 107 mg/dL (74-99); Lipase 56 U/L (23-300); Non-African American GFR(CKD) 78 (>60 ml/min/1.73 sqM); Potassium 4.1 mmol/L (3.5-5.1); Sodium 138 mmol/L (137-145); Total Bilirubin 0.4 mg/dL (0.2-1.3); Total Protein 6.4 g/dL (6.3-8.2)
--- NOTE | 2021-09-12 23:00 | CT ---
EXAMINATION TYPE: CT abdomen pelvis w con DATE OF EXAM: 09/12/2021 COMPARISON: 02/24/2021 HISTORY: RLQ/RT flank pain CT DLP: 1736.9 mGycm Automated exposure control for dose reduction was used. CONTRAST: Performed with IV Contrast, patient injected with 100 mL of Isovue 300. Images obtained from the diaphragm to the floor the pelvis with IV contrast. Heart is normal. There is no pericardial effusion. There is no pleural effusion. Lung bases are clear . There are clips from cholecystectomy. Liver and spleen are intact. The bile ducts are nondilated. The re is no evidence of pancreatic mass. There is no adrenal mass. Kidneys show satisfactory contrast opacification. There is no hydronephrosi s. There is 1.5 cm cortical cyst lateral right kidney. The ureters are not dilated. There is no retro peritoneal adenopathy. Appendix is posterior and appears normal. Bladder distends smoothly. There is no inguinal hernia. There is no free fluid in the pelvis. There is no mesenteric edema. There is no ascites or free air. There is no bowel obstruction. The lumbar vertebrae have normal alignment. Posterior elements are intact. Disc spaces are normal. Th ere is no compression fracture. Bony pelvis is intact. The hip joints are intact. IMPRESSION: No acute abnormality of the abdomen and pelvis. No renal stone or obstruction. Normal appendix. No ad verse change compared to old exam.
[2021-09-12 23:08] LABS: Appearance,Urine Clear (Clear); Bilirubin,Urine Negative (Negative); Blood,Urine Trace (Negative); Color,Urine Yellow; Glucose,Urine (UA) Negative (Negative); Hyaline Casts,Urine 1 /lpf (0-2); Ketones,Urine Negative (Negative); Leukocyte Esterase,Urine Moderate (Negative); Mucus,Urine Rare /hpf; Nitrite,Urine Negative (Negative); Protein,Urine 1+ (Negative); RBC,Urine 10 /hpf (0-5); Squamous Epithelial Cell,Urine 14 /hpf (0-4); WBC,Urine 11 /hpf (0-5)
[2021-09-12 23:12] LABS: Specific Gravity,Urine >1.050 (1.001-1.035)
[2021-09-13 00:21] VITALS: BP 156/80; PULSE 87; RESP 16
== END 2021-09-13 00:19 | disposition home or self-care (01) ==
LOC: EC 19:15
DX: R10.31 Right lower quadrant pain (principal); I11.0 Hypertensive heart disease with heart failure; I50.9 Heart failure, unspecified; J44.9 Chronic obstructive pulmonary disease, unspecified; G40.909 Epilepsy, unspecified, not intractable, without status epilepticus; M06.9 Rheumatoid arthritis, unspecified; M79.7 Fibromyalgia; F31.9 Bipolar disorder, unspecified; F41.9 Anxiety disorder, unspecified; F90.9 Attention-deficit hyperactivity disorder, unspecified type; F17.200 Nicotine dependence, unspecified, uncomplicated; F12.90 Cannabis use, unspecified, uncomplicated; Z79.899 Other long term (current) drug therapy
CPT/HCPCS: 36415; 80053; 83690; 85025; 81001; 87086; 74177; 99284; 96374; 96375 ×4; 96376; J1200; J2930; J2405; J1170 ×2; Q9967

== ENCOUNTER 2021-10-21 19:34 | Observation (INO) | payer MEDICARE, OTHER ==
[2021-10-22] MEDS ORDERED: ASPIRIN 81 MG PO STA (01:17)
[2021-10-22] MEDS ORDERED: MORPHINE SULFATE 4 MG/ML SYRINGE IV STA (01:18)
[2021-10-22] MEDS ORDERED: ONDANSETRON 4 MG/2 ML VIAL IVP STA (01:18)
--- NOTE | 2021-10-22 01:19 | ED ---
Chest Pain HPI - General Chief Complaint: Chest Pain Stated Complaint: Chest pain,Left arm pain Time Seen by Provider: 10/22/21 01:10 Source: patient, RN notes reviewed Mode of arrival: wheelchair - History of Present Illness Initial Comments: This is a pleasant 46-year-old female with a history of multiple medical issues as listed in the past medical history. Patient presents to the emergency department today complaining of intermittent left-sided chest pain was going on for 2 days. Patient also had a fever at home. She is also complaining of body aches, mild shortness of breath, and a dry cough. Not vaccinated against COVID- 19. Patient has not had COVID-19. Patient states his chest pain is dull and squeezing in nature, intermittent, unrelated to activity, radiates to the left shoulder. Comes for 10 minutes at a time and goes away. Patient continues to smoke cigarettes. Patient also smokes marijuana. No other illicit drug abuse. No alcohol abuse. No headache, no fever or chills, no changes in vision or hearing, no sore throat or difficulty with speech, no neck pain, , no abdominal pain, no nausea or vomiting, no changes in urination or bowel movements, no numbness or tingling, no extremity pain, no skin rashes or lesions. - Related Data Home Medications Medication Instructions Recorded Confirmed Spironolactone [Aldactone] 25 mg PO DAILY 02/05/17 03/25/21 QUEtiapine [SEROquel] 150 mg PO HS 02/25/19 03/25/21 Citalopram Hydrobromide [CeleXA] 40 mg PO DAILY 06/12/19 03/25/21 oxyCODONE-APAP 7.5-325MG [Percocet 1 tab PO TID 01/01/20 03/25/21 7.5-325 mg] Dicyclomine [Bentyl] 10 mg PO TID 05/28/20 03/25/21 levETIRAcetam [Keppra] 500 mg PO DAILY 02/24/21 03/25/21 rOPINIRole HCL [Requip] 0.25 mg PO HS 02/24/21 03/25/21 Carvedilol [Coreg] 25 mg PO BID 03/26/21 03/26/21 Previous Rx's Medication Instructions Recorded Ondansetron Odt [Zofran Odt] 4 mg PO Q8HR PRN 7 Days #21 tab 09/12/21 Allergies Allergy/AdvReac Type Severity Reaction Status Date / Time adhesive Allergy Rash/Hives Verified 09/12/21 19:23 amoxicillin Allergy Anaphylaxis Verified 09/12/21 19:23 azithromycin [From Zithromax] Allergy Anaphylaxis Verified 09/12/21 19:23 cephalexin monohydrate Allergy Anaphylaxis Verified 09/12/21 19:23 [From Keflex] ciprofloxacin Allergy Anaphylaxis Verified 09/12/21 19:23 clindamycin Allergy Anaphylaxis Verified 09/12/21 19:23 Iodinated Contrast Media Allergy Swelling Verified 09/12/21 19:23 [Iodinated Contrast- Oral and IV Dye] levofloxacin [From Levaquin] Allergy Rash/Hives Verified 09/12/21 19:23 naproxen Allergy Anaphylaxis Verified 09/12/21 19:23 NSAIDS (Non-Steroidal Allergy Rash/Hives Verified 09/12/21 19:23 Anti-Inflamma shellfish derived Allergy Anaphylaxis Verified 09/12/21 19:23 Sulfa (Sulfonamide Allergy Anaphylaxis Verified 09/12/21 19:23 Antibiotics) sulfamethoxazole Allergy Anaphylaxis Verified 09/12/21 19:23 [From Bactrim] tramadol Allergy Unknown Verified 09/12/21 19:23 trimethoprim [From Bactrim] Allergy Anaphylaxis Verified 09/12/21 19:23 Review of Systems ROS Statement: Those systems with pertinent positive or pertinent negative responses have been documented in the HPI. ROS Other: All systems not noted in ROS Statement are negative. EKG Findings - EKG Comments: EKG Findings:: EKG done at 2050 and read by the attending physician reveals sinus rhythm with a rate of 86. Normal intervals. Poor R-wave progression. No evidence of acute ST or T-wave changes. Patient does have a change in QRS morphology, mainly QRS amplitude in the precordial leads. [place] is normal. Previous EKG was 03/25/2021. 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 IBS, cellulitis of the chin, History of Any Multi-Drug Resistant Organisms: MRSA Date of last positivie culture/infection: 07/2016 MDRO Source:: chin Past Surgical History: Section, Cholecystectomy, Hysterectomy, Tubal Ligation Additional Past Surgical History / Comment(s): oral surgery . Pancreas biopsy May 2015. Past Anesthesia/Blood Transfusion Reactions: No Reported Reaction Past Psychological History: ADD/ADHD, Anxiety, Bipolar, Depression Smoking Status: Current every day smoker Past Alcohol Use History: None Reported Past Drug Use History: Marijuana - Past Family History Father Family Medical History: No Reported History Additional Family Medical History / Comment(s): ADOPTED General Exam - General Exam Comments Initial Comments: Obese 46-year-old female in mild distress. Patient does not appear to be ill or toxic. Patient was noted to be hypertensive with a diastolic blood pressure 112, systolic blood pressure in the 170s. General appearance: alert, in no apparent distress Head exam: Present: atraumatic, normocephalic, normal inspection Eye exam: Present: normal appearance, PERRL, EOMI. Absent: scleral icterus, con junctival injection, periorbital swelling ENT exam: Present: normal exam, normal oropharynx, mucous membranes dry, mucous membranes moist Neck exam: Present: normal inspection. Absent: tenderness, meningismus, lymphadenopathy Respiratory exam: Present: rhonchi (Scant scattered rhonchi.), chest wall tenderness. Absent: normal lung sounds bilaterally (No tachypnea), respiratory distress, wheezes, rales, stridor, accessory muscle use, decreased breath sounds, prolonged expiratory Cardiovascular Exam: Present: regular rate, normal rhythm, normal heart sounds. Absent: systolic murmur, diastolic murmur, rubs, gallop, clicks GI/Abdominal exam: Present: soft, normal bowel sounds. Absent: distended, tenderness, guarding, rebound, rigid Extremities exam: Present: normal inspection, full ROM, normal capillary refill. Absent: tenderness, pedal edema, joint swelling, calf tenderness Back exam: Present: normal inspection Neurological exam: Present: alert, oriented X3, CN II-XII intact Psychiatric exam: Present: normal affect, normal mood Skin exam: Present: warm, dry, intact, normal color. Absent: rash Course Vital Signs 10/21/21 10/22/21 20:50 03:12 Temperature 98.2 F 98.2 F Pulse Rate 84 85 Respiratory 18 18 Rate Blood Pressure 178/114 197/122 O2 Sat by Pulse 95 97 Oximetry - Reevaluation(s) Reevaluation #1: 10/22/21 03:15 Medical record is reviewed Symptoms are improved here in the emergency department Patient is informed of results and questions answered Patient in no distress - Consultations Consultation #1: Case discussed with the hospitalist physician from [facility]. Patient admitted to observation. The patient for cardiology. Chest Pain [facility] Chest heart score is 4 for smoking and multiple risk factors. Patient's initial troponin was negative. No significant EKG changes concerning for ST elevation or depression. This is atypical chest pain which comes and goes the left side of the chest. Disposition Clinical Impression: Chest pain, Uncontrolled hypertension, Cigarette smoker Disposition: ADMITTED IP TO THIS [facility] Condition: Fair Is patient prescribed a controlled substance at d/c from ED?: No Referrals: Kaleb Huston DO [Primary Care Provider] - 1-2 days Time of Disposition: 03:17 Decision to Admit Reason: Admit from EC Decision Time: 03:17
--- NOTE | 2021-10-22 01:30 | XR ---
EXAMINATION TYPE: XR chest 2V DATE OF EXAM: 10/22/2021 COMPARISON: 03/25/2021 HISTORY: Chest pain TECHNIQUE: 2 views FINDINGS: There is some mild linear density left lung base. There are no hilar masses. Costophrenic a ngles are clear. Heart and mediastinum are normal. Bony thorax is intact. IMPRESSION: Mild subsegmental atelectasis left lung base appears new compared to old exam.
[2021-10-22 02:39] LABS: Basophils % (A) 1 %; Eosinophils # (A) 0.3 k/uL (0-0.7); Eosinophils % (A) 3 %; HGB 13.6 gm/dL (11.4-16.0); Lymphocytes # (A) 2.6 k/uL (1.0-4.8); Lymphocytes % (A) 31 %; MCH 27.6 pg (25.0-35.0); MCHC 31.5 g/dL (31.0-37.0); MCV 87.4 fL (80.0-100.0); Mean Platelet Volume 6.9; Monocytes # (A) 0.4 k/uL (0-1.0); Monocytes % (A) 4 %; Neutrophils # (A) 5.1 k/uL (1.3-7.7); Neutrophils % (A) 59 %; Platelet Count 321 k/uL (150-450); RBC 4.92 m/uL (3.80-5.40); RDW 13.6 % (11.5-15.5); WBC 8.5 k/uL (3.8-10.6)
[2021-10-22 03:05] LABS: ALT 9 U/L (4-34); AST 19 U/L (14-36); African American GFR (CKD) >90 (>60 ml/min/1.73 sqM); Alkaline Phosphatase 82 U/L (38-126); Anion Gap 6 mmol/L; Blood Urea Nitrogen 18 mg/dL (7-17); Calcium 9.2 mg/dL (8.4-10.2); Carbon Dioxide 31 mmol/L (22-30); Chloride 101 mmol/L (98-107); Glucose 112 mg/dL (74-99); Magnesium 1.4 mg/dL (1.6-2.3); Non-African American GFR(CKD) >90 (>60 ml/min/1.73 sqM); Partial Thromboplastin Time 23.6 sec (22.0-30.0); Potassium 3.8 mmol/L (3.5-5.1); Prothrombin Time 11.2 sec (9.0-12.0); Sodium 138 mmol/L (137-145); Total Bilirubin 0.5 mg/dL (0.2-1.3); Total Protein 7.1 g/dL (6.3-8.2)
[2021-10-22] MEDS ORDERED: NITROGLYCERIN OINT 1 INCH/GM PACKET TOPICAL STA (03:17)
[2021-10-22 03:21] LABS: Amorphous Sediment,Urine Rare /hpf; Appearance,Urine Cloudy (Clear); Bacteria,Urine Moderate /hpf; Bilirubin,Urine Negative (Negative); Blood,Urine Small (Negative); Calcium Oxalate Crystals,Urine Many /hpf; Color,Urine Yellow; Glucose,Urine (UA) Negative (Negative); Hyaline Casts,Urine 2 /lpf (0-2); Ketones,Urine Trace (Negative); Leukocyte Esterase,Urine Small (Negative); Mucus,Urine Many /hpf; Nitrite,Urine Negative (Negative); Protein,Urine 1+ (Negative); RBC,Urine 9 /hpf (0-5); Specific Gravity,Urine 1.033 (1.001-1.035); Squamous Epithelial Cell,Urine 10 /hpf (0-4); WBC,Urine 13 /hpf (0-5)
[2021-10-22] MEDS ORDERED: MAGNESIUM SULFATE-D5W PMX 1 GM in DEXTROSE/WATER 1 100ML.BAG IVPB ONE (03:35)
[2021-10-22] MEDS ORDERED: MELATONIN 3 MG TABLET PO PRN (03:35)
[2021-10-22] MEDS ORDERED: NALOXONE 0.4 MG/ML 1 ML VIAL IV PRN (03:35)
[2021-10-22] MEDS ORDERED: ACETAMINOPHEN TAB 325 MG TAB PO PRN (03:35)
[2021-10-22] MEDS ORDERED: carvediloL 12.5 MG TAB PO STA (03:38)
[2021-10-22] MEDS ORDERED: cloNIDine HCL 0.2 MG TAB PO PRN (03:55)
[2021-10-22] MEDS ORDERED: ATORVASTATIN 40 MG TAB PO STA (03:57)
--- NOTE | 2021-10-22 04:14 | P.HPIM ---
History of Present Illness H&P Date: 10/22/21 Chief Complaint: chest pain 46 year old female with complex past medical history , hypertension , COPD, RA, seizures patient comes in with complaint of left sided chest pain , dull squeezing in nature, 10/10 in severity , attacks lasting 10 minutes, not precipitated by act ivity, associated with nausea and vomiting, heavy breathing, and palpitations, pain radiates to left arm with squeezing pain. she denies having any cardiac workup in the past. she otherwise, denies any URI symptoms, no cough, no SOB, no sore throat, no fever, no chills. she is unvaccinated against covid these symptoms just started tonight suddenly , she is also a smoker, but cutting back and now down to 2 cig per day work up in the ED unremarkable , except for elevated BP. CXR showed basal atelactesis Review of Systems Pertinent positives as noted in HPI. 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 IBS, cellulitis of the chin, History of Any Multi-Drug Resistant Organisms: MRSA Date of last positivie culture/infection: 07/2016 MDRO Source:: chin Past Surgical History: Section, Cholecystectomy, Hysterectomy, Tubal Ligation Additional Past Surgical History / Comment(s): oral surgery . Pancreas biopsy May 2015. Past Anesthesia/Blood Transfusion Reactions: No Reported Reaction Past Psychological History: ADD/ADHD, Anxiety, Bipolar, Depression Smoking Status: Current every day smoker Past Alcohol Use History: None Reported Past Drug Use History: Marijuana - Past Family History Father Family Medical History: No Reported History Additional Family Medical History / Comment(s): ADOPTED Medications and Allergies Home Medications Medication Instructions Recorded Confirmed Type Spironolactone [Aldactone] 25 mg PO DAILY 02/05/17 03/25/21 History QUEtiapine [SEROquel] 150 mg PO HS 02/25/19 03/25/21 History Citalopram Hydrobromide [CeleXA] 40 mg PO DAILY 06/12/19 03/25/21 History oxyCODONE-APAP 7.5-325MG [Percocet 1 tab PO TID 01/01/20 03/25/21 History 7.5-325 mg] Dicyclomine [Bentyl] 10 mg PO TID 05/28/20 03/25/21 History levETIRAcetam [Keppra] 500 mg PO DAILY 02/24/21 03/25/21 History rOPINIRole HCL [Requip] 0.25 mg PO HS 02/24/21 03/25/21 History Carvedilol [Coreg] 25 mg PO BID 03/26/21 03/26/21 History Ondansetron Odt [Zofran Odt] 4 mg PO Q8HR PRN 7 Days #21 tab 09/12/21 Rx Allergies Allergy/AdvReac Type Severity Reaction Status Date / Time adhesive Allergy Rash/Hives Verified 09/12/21 19:23 amoxicillin Allergy Anaphylaxis Verified 09/12/21 19:23 azithromycin [From Zithromax] Allergy Anaphylaxis Verified 09/12/21 19:23 cephalexin monohydrate Allergy Anaphylaxis Verified 09/12/21 19:23 [From Keflex] ciprofloxacin Allergy Anaphylaxis Verified 09/12/21 19:23 clindamycin Allergy Anaphylaxis Verified 09/12/21 19:23 Iodinated Contrast Media Allergy Swelling Verified 09/12/21 19:23 [Iodinated Contrast- Oral and IV Dye] levofloxacin [From Levaquin] Allergy Rash/Hives Verified 09/12/21 19:23 naproxen Allergy Anaphylaxis Verified 09/12/21 19:23 NSAIDS (Non-Steroidal Allergy Rash/Hives Verified 09/12/21 19:23 Anti-Inflamma shellfish derived Allergy Anaphylaxis Verified 09/12/21 19:23 Sulfa (Sulfonamide Allergy Anaphylaxis Verified 09/12/21 19:23 Antibiotics) sulfamethoxazole Allergy Anaphylaxis Verified 09/12/21 19:23 [From Bactrim] tramadol Allergy Unknown Verified 09/12/21 19:23 trimethoprim [From Bactrim] Allergy Anaphylaxis Verified 09/12/21 19:23 Physical Exam Vitals: Vital Signs Temp Pulse Resp BP Pulse Ox 10/22/21 03:12 98.2 F 85 18 197/122 97 10/21/21 20:50 98.2 F 84 18 178/114 95 Intake and Output 04/01/0610/21/21 10/22/21 14:59 22:59 06:59 Other: Weight 86.183 kg Constitutional: No acute distress, conversant, pleasant Eyes: Anicteric sclerae, moist conjunctiva, Pupils equal round reactive to light ENMT: NC/AT Oropharynx clear, no erythema, or exudates Neck: Supple, FROM, no masses, or JVD No carotid bruits No thyromegaly Lungs: Clear to auscultation Clear to percussion Normal respiratory effort, no accessory muscle use Cardiovascular: Heart regular in rate and rhythm, No murmurs, gallops, or rubs No peripheral edema Abdominal: Soft Nontender, no guarding, rebound or rigidity Abdomen moving with respiration Normoactive bowel sounds No hepatomegaly, No splenomegaly No palpable mass No abdominal wall hernia noted Skin: Normal temperature, tone, texture, turgor No induration No subcutaneous nodules No rash, lesions No ulcers Extremities: No digital cyanosis No clubbing Pedal pulses intact and symmetrical Radial pulses intact and symmetrical No calf tenderness Psychiatric: Alert and oriented to person, place and time Appropriate affect fair judgement Neuro Muscles Strength 5/5 in all 4 extremities Sensation to light touch grossly present throughout Cranial nerves II-XII grossly intact No focal sensory deficits Lymphatics: no palpable cervical or supraclavicular , or inguinal lymph nodes Results CBC & Chem 7: 10/22/21 02:01 10/22/21 02:01 Labs: Abnormal Lab Results - Last 24 Hours (Table) 10/22/21 10/22/21 Range/Units 02:01 02:01 Carbon Dioxide 31 H (22-30) mmol/L BUN 18 H (7-17) mg/dL Glucose 112 H (74-99) mg/dL Magnesium 1.4 L (1.6-2.3) mg/dL Urine Appearance Cloudy H (Clear) Urine Protein 1+ H (Negative) Urine Ketones Trace H (Negative) Urine Blood Small H (Negative) Ur Leukocyte Esterase Small H (Negative) Urine RBC 9 H (0-5) /hpf Urine WBC 13 H (0-5) /hpf Ur Squamous Epith Cells 10 H (0-4) /hpf Calcium Oxalate Crystal Many H (None) /hpf Amorphous Sediment Rare H (None) /hpf Urine Bacteria Moderate H (None) /hpf Urine Mucus Many H (None) /hpf Assessment and Plan Assessment: atypical chest pain rule out ACS 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
[2021-10-22] MEDS ORDERED: carvediloL 12.5 MG TAB PO SCH ×2 (07:30→09:00)
[2021-10-22 08:10] VITALS: RESP 18
[2021-10-22] MEDS: MORPHINE SULFATE 4 MG/ML SYRINGE IV PRN ×2 (08:50→12:59)
[2021-10-22] MEDS ORDERED: amLODIPine 5 MG TAB PO SCH (09:00)
[2021-10-22] MEDS ORDERED: QUEtiapine 100 MG TAB PO SCH (09:00)
[2021-10-22] MEDS ORDERED: SPIRONOLACTONE 25 MG TAB PO SCH (09:00)
[2021-10-22] MEDS ORDERED: levETIRAcetam 500 MG TAB PO SCH (09:00)
[2021-10-22] MEDS ORDERED: ENOXAPARIN 40 MG/0.4 ML SYRINGE SQ SCH (09:00)
[2021-10-22] MEDS ORDERED: CITALOPRAM HYDROBROMIDE 20 MG TAB PO SCH (09:00)
[2021-10-22] MEDS ORDERED: DOBUTamine DRIP for NUC MED 500 MG in DEXTROSE/WATER 1 250ML.BAG IV PRN (09:09)
[2021-10-22 09:15] LABS: Chol/HDL Ratio 3.85 Ratio; LDL Cholesterol,Calculated 92.7 mg/dL (0.0-131.0)
--- NOTE | 2021-10-22 10:29 | P.CRDCN ---
History of Present Illness Consult date: 10/22/21 History of present illness: HISTORY OF PRESENT ILLNESS: This is a 46-year-old female with a past medical history significant for hypertension, nicotine dependence, chronic pain, COPD, and marijuana use. Patient does not follow with a [facility]. We have been asked to see the patient in consultation for chest pain. Patient examined at the bedside. Patient states yesterday she began having pain in the left side of her chest. She reports that felt like a squeezing sensation. She reports radiation into her left arm. She reports associated diaphoresis and shortness of breath. No nausea or vomiting. The pain was not worse with deep inspiration or chest wall palpation. The patient states she checked her blood pressure at home yesterday and it was in the 190s which concerned her. She states that she checks her blood pressure at home on a daily basis and her systolic blood pressure usually runs between 120 and 150. The patient reports she is a current cigarette smoker. She used to smoke 2 packs per day and now she has decreased herself down to 3 cigarettes per day. She also reports using marijuana edibles for her chronic pain. The patient reports she is adopted and does not know her family history. * EKG reveals sinus mechanism with no signs of acute ischemia * Chest xray mild subsegmental atelectasis left lung base appears new compared to old exam. * Laboratory data: WBC 8.5. Hemoglobin 13.6. Platelet count 321. D-dimer 0.46. Sodium 138. Potassium 3.8. BUN 18. Creatinine 0.66. Magnesium 1.4. Troponin negative 2. * Current home cardiac medications include Aldactone 25 mg daily and carvedilol 25 mg twice a day * Most recent echocardiogram obtained in March 2021 revealed ejection fraction 55% * Patient underwent dobutamine stress test in 2014 which was negative for ischemia REVIEW OF SYSTEMS: At the time of my exam: CONSTITUTIONAL: Denies fever or chills. HEENT: Denies blurred vision, vision changes, or eye pain. Denies hemoptysis CARDIOVASCULAR: Denies chest pain. Denies orthopnea. Denies PND. Denies palpitations RESPIRATORY: Denies shortness of breath. GASTROINTESTINAL: Denies abdominal pain. Denies nausea or vomiting. HEMATOLOGIC: Denies bleeding disorders. GENITOURINARY: Denies any blood in urine. SKIN: Denies pruitis. Denies rash. PHYSICAL EXAM: VITAL SIGNS: Reviewed. GENERAL: Well-developed in no acute distress. HEENT: Head is normocephalic. Pupils are equal, round. Sclerae anicteric. Mucous membranes of the mouth are moist. Neck supple. No JVD or thyromegaly LUNGS: Respirations even and unlabored. Lungs essentially clear to auscultation bilaterally. HEART: Regular rate and rhythm. S1 and S2 heard. ABDOMEN: Soft. Nondistended. Nontender. EXTREMITIES: Normal range of motion. No clubbing or cyanosis. Peripheral puls es intact. No lower extremity edema NEUROLOGIC: Awake and alert. Oriented x 3. ASSESSMENT: Chest pain, troponins negative 2 Hypertension COPD Chronic pain Nicotine dependence Marijuana use Anxiety PLAN: An acute coronary event has been ruled out Monitor blood pressure Norvasc added per primary medicine Obtain 2-D echo to assess current sexual function Patient to undergo dobutamine stress test today to assess for reversible ischemia Further recommendations pending patient's course Nurse practitioner note has been reviewed by physician. Signing provider agrees with the documented findings, assessment, and plan of care. 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 IBS, cellulitis of the chin, History of Any Multi-Drug Resistant Organisms: MRSA Date of last positivie culture/infection: 07/2016 MDRO Source:: chin Past Surgical History: Section, Cholecystectomy, Hysterectomy, Tubal Ligation Additional Past Surgical History / Comment(s): oral surgery . Pancreas biopsy May 2015. Past Anesthesia/Blood Transfusion Reactions: No Reported Reaction Past Psychological History: ADD/ADHD, Anxiety, Bipolar, Depression Smoking Status: Current every day smoker Past Alcohol Use History: None Reported Past Drug Use History: Marijuana - Past Family History Father Family Medical History: No Reported History Additional Family Medical History / Comment(s): ADOPTED Medications and Allergies Home Medications Medication Instructions Recorded Confirmed Type Spironolactone [Aldactone] 25 mg PO DAILY 02/05/17 10/22/21 History QUEtiapine [SEROquel] 150 mg PO HS 02/25/19 10/22/21 History Citalopram Hydrobromide [CeleXA] 40 mg PO DAILY 06/12/19 10/22/21 History oxyCODONE-APAP 7.5-325MG [Percocet 1 tab PO TID PRN 01/01/20 10/22/21 History 7.5-325 mg] Dicyclomine [Bentyl] 10 mg PO QID PRN 05/28/20 10/22/21 History levETIRAcetam [Keppra] 500 mg PO DAILY 02/24/21 10/22/21 History rOPINIRole HCL [Requip] 0.25 mg PO HS 02/24/21 10/22/21 History Carvedilol [Coreg] 25 mg PO BID 03/26/21 10/22/21 History Albuterol Sulfate [Proventil Hfa] 2 puff INHALATION RT-Q4H PRN 10/22/21 10/22/21 History Ergocalciferol [Vitamin D2 (1250 1,250 mcg PO MO 10/22/21 10/22/21 History Mcg = [id number] Iu)] Ondansetron Odt [Zofran Odt] 4 mg PO Q8H PRN 10/22/21 10/22/21 History QUEtiapine [SEROquel] 100 mg PO DAILY 10/22/21 10/22/21 History diphenhydrAMINE [Benadryl] 50 mg PO TID 10/22/21 10/22/21 History Allergies Allergy/AdvReac Type Severity Reaction Status Date / Time adhesive Allergy Rash/Hives Verified 10/22/21 07:21 amoxicillin Allergy Anaphylaxis Verified 10/22/21 07:21 azithromycin [From Zithromax] Allergy Anaphylaxis Verified 10/22/21 07:21 cephalexin monohydrate Allergy Anaphylaxis Verified 10/22/21 07:21 [From Keflex] ciprofloxacin Allergy Anaphylaxis Verified 10/22/21 07:21 clindamycin Allergy Anaphylaxis Verified 10/22/21 07:21 Iodinated Contrast Media Allergy Anaphylaxis Verified 10/22/21 07:21 [Iodinated Contrast- Oral and IV Dye] levofloxacin [From Levaquin] Allergy Rash/Hives Verified 10/22/21 07:21 naproxen Allergy Anaphylaxis Verified 10/22/21 07:21 NSAIDS (Non-Steroidal Allergy Rash/Hives Verified 10/22/21 07:21 Anti-Inflamma shellfish derived Allergy Anaphylaxis Verified 10/22/21 07:21 Sulfa (Sulfonamide Allergy Anaphylaxis Verified 10/22/21 07:21 Antibiotics) sulfamethoxazole Allergy Anaphylaxis Verified 10/22/21 07:21 [From Bactrim] tramadol Allergy Unknown Verified 10/22/21 07:21 trimethoprim [From Bactrim] Allergy Anaphylaxis Verified 10/22/21 07:21 Physical Exam Vitals: Vital Signs Temp Pulse Pulse Resp BP BP Pulse Ox 10/22/21 08:07 98.2 F 74 18 163/94 92 L 10/22/21 07:15 80 16 157/98 98 10/22/21 04:25 178/97 10/22/21 03:12 98.2 F 85 18 197/122 97 10/21/21 20:50 98.2 F 84 18 178/114 95 Intake and Output 10/21/21 10/22/21 10/22/21 22:59 06:59 14:59 Other: # Voids 1 Weight 86.183 kg Results 10/22/21 02:01 10/22/21 02:01 Cardiac Enzymes 10/22/21 10/22/21 10/22/21 Range/Units 02:01 02:01 04:07 AST 19 (14-36) U/L Troponin I <0.012 <0.012 (0.000-0.034) ng/mL Coagulation 10/22/21 Range/Units 02:01 PT 11.2 (9.0-12.0) sec APTT 23.6 (22.0-30.0) sec CBC 10/22/21 Range/Units 02:01 WBC 8.5 (3.8-10.6) k/uL RBC 4.92 (3.80-5.40) m/uL Hgb 13.6 (11.4-16.0) gm/dL Hct 43.0 (34.0-46.0) % Plt Count 321 (150-450) k/uL Comprehensive Metabolic Panel 10/22/21 Range/Units 02:01 Sodium 138 (137-145) mmol/L Potassium 3.8 (3.5-5.1) mmol/L Chloride 101 (98-107) mmol/L Carbon Dioxide 31 H (22-30) mmol/L BUN 18 H (7-17) mg/dL Creatinine 0.66 (0.52-1.04) mg/dL Glucose 112 H (74-99) mg/dL Calcium 9.2 (8.4-10.2) mg/dL AST 19 (14-36) U/L ALT 9 (4-34) U/L Alkaline Phosphatase 82 (38-126) U/L Total Protein 7.1 (6.3-8.2) g/dL Albumin 4.0 (3.5-5.0) g/dL Current Medications Generic Name Dose Route Start Last Admin Trade Name Freq PRN Reason Stop Dose Admin Acetaminophen 650 mg 10/22/21 03:35 Acetaminophen Tab 325 Mg Tab PO Q6HR PRN Mild Pain or Fever > 100.5 Carvedilol 25 mg 10/22/21 07:30 Carvedilol 12.5 Mg Tab PO BID-W/MEALS [facility] Citalopram Hydrobromide 40 mg 10/22/21 09:00 Citalopram Hydrobromide 20 Mg Tab PO DAILY [facility] Clonidine 0.2 mg 10/22/21 03:55 Clonidine Hcl 0.2 Mg Tab PO QID PRN Blood Pressure - High Enoxaparin Sodium 40 mg 10/22/21 09:00 Enoxaparin 40 Mg/0.4 Ml Syringe SQ DAILY [facility] Levetiracetam 500 mg 10/22/21 09:00 Levetiracetam 500 Mg Tab PO DAILY [facility] Melatonin 3 mg 10/22/21 03:35 Melatonin 3 Mg Tablet PO HS PRN Insomnia Morphine Sulfate 4 mg 10/22/21 03:35 Morphine Sulfate 4 Mg/Ml Syringe IV Q4HR PRN Severe Pain Naloxone HCl 0.2 mg 10/22/21 03:35 Naloxone 0.4 Mg/Ml 1 Ml Vial IV Q2M PRN Opioid Reversal Oxycodone/Acetaminophen 1 each 10/22/21 09:00 Oxycodone-Apap 7.5-325mg 1 Each Tab PO TID [facility] Quetiapine Fumarate 150 mg 10/22/21 21:00 Quetiapine 50 Mg Tab PO HS [facility] Quetiapine Fumarate 100 mg 10/22/21 09:00 Quetiapine 100 Mg Tab PO DAILY [facility] Ropinirole HCl 0.25 mg 10/22/21 21:00 Ropinirole Hcl 0.25 Mg Tab PO HS [facility] Spironolactone 25 mg 10/22/21 09:00 Spironolactone 25 Mg Tab PO DAILY [facility] Intake and Output 10/21/21 10/22/21 10/22/21 22:59 06:59 14:59 Other: # Voids 1 Weight 86.183 kg 10/22/21 02:01 10/22/21 02:01
[2021-10-22] MEDS ORDERED: REGADENOSON 0.4 MG/5 ML SYRINGE IV PRN (10:45)
[2021-10-22] MEDS ORDERED: AMINOPHYLLINE 500 MG/20 ML VIAL IV PRN (10:45)
[2021-10-22] MEDS ORDERED: CAFFEINE CITRATE 60 MG/3 ML VIAL IV PRN (10:45)
[2021-10-22] MEDS: oxyCODONE-APAP 7.5-325MG 1 EACH TAB PO SCH ×2 (12:57→15:03)
--- NOTE | 2021-10-22 13:19 | NM ---
EXAMINATION TYPE: NM stress lexiscan cardiolite DATE OF EXAM: 10/22/2021 COMPARISON: NONE HISTORY: 46-year-old female with chest pain TECHNIQUE: After the intravenous administration of 10.0 mCi Tc 99m Sestamibi - Cardiolite resting SP ECT images acquired 45 minutes post injection. The patient received 0.4mg Lexiscan, 24.0 mCi Tc 99m Sestamibi - Stress images obtained [address] injection FINDINGS: Review of stress and rest SPECT images demonstrates no fixed perfusion defect at the apex of the hear t. Defects along the septal and inferolateral wall are apparent on rest images suggesting attenuation artifact. Gated analysis shows normal wall motion with an estimated left ventricular ejection fracti on of 63 %. TID is normal at 0.97. IMPRESSION: 1. Either attenuation artifact versus an area of old apical infarct. 2. Defects along the septal wall and inferolateral wall are present only on rest imaging. This is com patible with attenuation artifact. 3. Otherwise, no scintigraphic evidence for reversible ischemia.
--- NOTE | 2021-10-22 14:17 | P.DS ---
Providers Date of admission: 10/22/21 05:32 Expected date of discharge: 10/22/21 Attending physician: Emile Narayanan MD Consults: 10/22/21 03:35 Consult Physician Urgent Consulting Provider: Pasquale Noriega Consult Reason/Comments: Chest pain, uncontrolled hypertension Do you want consulting provider notified?: Yes, Notify in am Primary care physician: Kaleb Huston [facility] Course: Discharge Diagnosis: Atypical chest pain, acute coronary event ruled out Hypertensive urgency, patient was started on amlodipine in addition to daily medication regimen with Aldactone and carvedilol. Hypomagnesemia, replaced. Started on Mag-Ox 400 mg daily and have repeat magnesium levels drawn in 3 days with results to PCP and cardiology. Rheumatoid arthritis COPD Seizure disorder Fibromyalgia Chronic pain Nicotine dependence Cannabis use Hospital Course: Patient is a very pleasant 46-year-old female with a past medical history of hypertension, COPD, rheumatoid arthritis, seizure disorder, fibromyalgia, chronic pain, nicotine dependence, and cannabis use. She presented to the [facility] department with a chief complaint of chest pain. Patient reports experiencing a dull squeezing sensation to her left anterior chest. She reports she has been intermittently having this pain over the past 24 hours each time lasting approximately 10-15 minutes and has been associated with nausea and palpitations and typically radiates into her left arm. Patient reports these pains typically come on at rest and she denies experiencing any headache, lightheadedness, dizziness, shortness of breath, or having any numbness/tingling/weakness in her extremities. She was seen and fully evaluated in the emergency department. Patient was found to be in hypertensive urgency with blood pressure of 197/122. EKG completed showing normal sinus rhythm at 86 bpm with no noted T-wave or ST abnormalities. Lab work completed. CBC unremarkable. CMP revealing hypercarbia with CO2 of 31 and hypomagnesemia with magnesium of 1.4. Magnesium was replaced and patient was admitted under our services with consultation to cardiology. Troponins were trended throughout the night all resulting negative at less than 0.0123 draws. Lipid profile was completed showing elevated triglycerides at 173, patient educated on the importance of heart healthy diet. Lexiscan stress test showing no scintigraphic evidence for reversible ischemia. Patient was started on amlodipine in addition to her daily medication regimen with Aldactone and carvedilol. After initiation of new medications, patient's condition significantly improved. BP upon discharge was 124/81. Patient discharged home with new prescription for amlodipine 5 mg daily. Patient to follow up with cardiology and PCP as directed. Patient encouraged to monitor blood pressure daily and documented in a log/sternal to bring with her to her next doctor's appointment. Physical exam: Patient seen and examined at bedside. Vital signs reviewed and stable. General: Nontoxic, no distress and appears stated age. Morbid obesity. Derm: Skin warm and dry, normal coloration for ethnicity. Head: Atraumatic, normocephalic and symmetric. Eyes: EOMs intact, no lid lag, and anicteric sclera Mouth: no lip lesions, mucus membranes moist Cardiovascular: regular rate and rhythm with normal S1S2, no murmur, positive posterior tibial pulses bilaterally, and cap refill < 2 seconds. Lungs: Respirations even, regular, and unlabored on room air. Lungs diminished with no rhonchi, no rales, no wheezing, and no accessory muscle usage. Abdominal: soft, nontender to palpation, no guarding, no appreciable organomegaly Ext: ROM intact. No gross muscle atrophy, no edema, no contractures Neuro: Speech clear, face symmetrical and CN II-XII grossly intact with no noted focal neuro deficits Psych: Alert and oriented to person, place, time, and situation. Appropriate and pleasant affect. A total of 45 minutes of time were spent preparing this complex discharge summary. Patient Condition at Discharge: Stable Plan - Discharge Summary Discharge Rx Participant: No New Discharge Prescriptions: New amLODIPine [Norvasc] 5 mg PO DAILY 30 Days #30 tab Magnesium Oxide [Magox 400] 400 mg PO DAILY 30 Days #30 tablet Continue Spironolactone [Aldactone] 25 mg PO DAILY QUEtiapine [SEROquel] 150 mg PO HS Citalopram Hydrobromide [CeleXA] 40 mg PO DAILY oxyCODONE-APAP 7.5-325MG [Percocet 7.5-325 mg] 1 tab PO TID PRN PRN Reason: Pain Dicyclomine [Bentyl] 10 mg PO QID PRN PRN Reason: Gi Upset levETIRAcetam [Keppra] 500 mg PO DAILY Carvedilol [Coreg] 25 mg PO BID diphenhydrAMINE [Benadryl] 50 mg PO TID QUEtiapine [SEROquel] 100 mg PO DAILY Ergocalciferol [Vitamin D2 (1250 Mcg = 96450 Iu)] 1,250 mcg PO MO Ondansetron Odt [Zofran ODT] 4 mg PO Q8H PRN PRN Reason: Nausea rOPINIRole HCL [Requip] 0.25 mg PO HS Albuterol Sulfate [Proventil Hfa] 2 puff INHALATION RT-Q4H PRN PRN Reason: Shortness Of Breath Discharge Medication List Spironolactone [Aldactone] 25 mg PO DAILY 02/05/17 [History] QUEtiapine [SEROquel] 150 mg PO HS 02/25/19 [History] Citalopram Hydrobromide [CeleXA] 40 mg PO DAILY 06/12/19 [History] oxyCODONE-APAP 7.5-325MG [Percocet 7.5-325 mg] 1 tab PO TID PRN 01/01/20 [His tory] Dicyclomine [Bentyl] 10 mg PO QID PRN 05/28/20 [History] levETIRAcetam [Keppra] 500 mg PO DAILY 02/24/21 [History] rOPINIRole HCL [Requip] 0.25 mg PO HS 02/24/21 [History] Carvedilol [Coreg] 25 mg PO BID 03/26/21 [History] Albuterol Sulfate [Proventil Hfa] 2 puff INHALATION RT-Q4H PRN 10/22/21 [History] Ergocalciferol [Vitamin D2 (1250 Mcg = 91628 Iu)] 1,250 mcg PO MO 10/22/21 [History] Magnesium Oxide [Magox 400] 400 mg PO DAILY 30 Days #30 tablet 10/22/21 [Rx] Ondansetron Odt [Zofran ODT] 4 mg PO Q8H PRN 10/22/21 [History] QUEtiapine [SEROquel] 100 mg PO DAILY 10/22/21 [History] amLODIPine [Norvasc] 5 mg PO DAILY 30 Days #30 tab 10/22/21 [Rx] diphenhydrAMINE [Benadryl] 50 mg PO TID 10/22/21 [History] Follow up Appointment(s)/Referral(s): Kaleb Huston DO [Primary Care Provider] - 1-2 days Pasquale Noriega MD [STAFF PHYSICIAN] - 1 Week Ambulatory/Diagnostic Orders: Magnesium [LAB.AMB] Time Frame: 3 Days, Location: None Selected Activity/Diet/Wound Care/Special Instructions: Activity: As tolerated. Take breaks as needed. Diet: Heart healthy and carb consistent diet. Avoid salts, or foods with hidden salts such as canned or boxed foods and frozen dinners. Extra salt makes your heart work harder and traps the fluid in your body for longer. Special Instructions: Take all of your medications as directed and remember to keep all of your doctor's appointments and follow-up as needed. It is important to monitor your blood pressure daily and document these findings and a log/journal to bring with you to your next doctor's appointments. Again strongly encourage smoking cessation. Thank you for allowing us to participate in your care, it was truly a pleasure having you for our patient!!! Discharge Disposition: HOME SELF-CARE
[2021-10-22 14:35] VITALS: BP 124/81; PULSE 84; TEMP 99.1
--- NOTE | 2021-10-22 15:38 | EST ---
EXERCISE STRESS AGE: 46 SEX: F HT: 5' WT: 189 lbs PROTOCOL: Lexiscan STAGE: NA DURATION OF EXERCISE: NA HEART RATE REST: 79 BLOOD PRESSURE REST: 161/88 MAXIMUM HEART RATE ACHIEVED: 99 MAXIMUM BLOOD PRESSURE: 161/88 85% MPHR: 148 100% MPHR: 174 METS: NA INDICATIONS: Chest pain CLINICAL INFORMATION: Baseline rhythm is sinus mechanism, rate of 79, normal axis and intervals, early repolarization changes. Baseline blood pressure 161/88 mmHg. Patient received injection of Lexiscan. Electrocardiographic monitoring revealed no evidence of diagnostic ischemic ST deviation. Cardiolite was injected per protocol. CONCLUSION: 1. Nondiagnostic electrocardiograph stress testing. 2. Nuclear images will be reported separately. MMODL / IJN: [id number] /
[2021-10-22] MEDS ORDERED: QUEtiapine 50 MG TAB PO SCH (21:00)
== END 2021-10-22 15:24 | disposition home or self-care (01) ==
LOC: EC 19:34 → 6NMEDSUR 10-22 05:32
PROVIDERS: ADMIT Internal Medicine; ATTEND Internal Medicine
DX: R07.89 Other chest pain (principal); I16.0 Hypertensive urgency; E83.42 Hypomagnesemia; I11.0 Hypertensive heart disease with heart failure; I50.9 Heart failure, unspecified; J44.9 Chronic obstructive pulmonary disease, unspecified; M79.7 Fibromyalgia; G40.909 Epilepsy, unspecified, not intractable, without status epilepticus; M06.9 Rheumatoid arthritis, unspecified; G89.29 Other chronic pain; G43.909 Migraine, unspecified, not intractable, without status migrainosus; M54.9 Dorsalgia, unspecified; K58.9 Irritable bowel syndrome, unspecified; K86.89 Other specified diseases of pancreas; J98.11 Atelectasis; E78.1 Pure hyperglyceridemia; R61 Generalized hyperhidrosis; R50.9 Fever, unspecified; F17.210 Nicotine dependence, cigarettes, uncomplicated; F31.9 Bipolar disorder, unspecified; F90.9 Attention-deficit hyperactivity disorder, unspecified type; F41.9 Anxiety disorder, unspecified; Z28.310 Unvaccinated for COVID-19; Z20.822 Contact with and (suspected) exposure to COVID-19; Z79.899 Other long term (current) drug therapy; Z88.0 Allergy status to penicillin; Z88.1 Allergy status to other antibiotic agents; Z88.2 Allergy status to sulfonamides; Z88.5 Allergy status to narcotic agent; Z88.6 Allergy status to analgesic agent; Z91.041 Radiographic dye allergy status; Z91.013 Allergy to seafood; Z91.048 Other nonmedicinal substance allergy status; Z86.73 Personal history of transient ischemic attack (TIA), and cerebral infarction without residual deficits; Z87.442 Personal history of urinary calculi; Z86.19 Personal history of other infectious and parasitic diseases; Z87.01 Personal history of pneumonia (recurrent); Z86.14 Personal history of Methicillin resistant Staphylococcus aureus infection; Z90.710 Acquired absence of both cervix and uterus; Z98.891 History of uterine scar from previous surgery; Z98.51 Tubal ligation status; Z90.49 Acquired absence of other specified parts of digestive tract; Z71.3 Dietary counseling and surveillance; Z71.6 Tobacco abuse counseling
CPT/HCPCS: 96376 ×2; 96365; 96366; 96375; 99285; 36415; 93005; 93017; 85379; 83880; 80061; 80053; 83735; 84484; 85025; 85610; 85730; 81001; 87086; 87635; 71046; 78452; G0378; A9500; J2270; J2405; J1650; J3475; J2785

== ENCOUNTER 2021-12-01 16:48 | Inpatient (IN) | payer MEDICARE ==
[2021-12-01] MEDS ORDERED: MORPHINE SULFATE 4 MG/ML SYRINGE IV STA (21:20)
[2021-12-01] MEDS ORDERED: ONDANSETRON 4 MG/2 ML VIAL IVP STA (21:20)
[2021-12-01] MEDS ORDERED: SODIUM CHLORIDE 0.9% 1,000 ML IV STA (21:20)
[2021-12-01] MEDS ORDERED: methylPREDNISolone SOD SUCCI 125 MG/2 ML VIAL IV STA (21:25)
[2021-12-01] MEDS ORDERED: diphenhydrAMINE 50 MG/ML 1 ML VIAL IVP STA (21:25)
[2021-12-01] MEDS ORDERED: FAMOTIDINE 20 MG/2 ML VIAL IV STA (21:25)
--- NOTE | 2021-12-01 21:44 | ED ---
Abdominal Pain HPI - General Chief Complaint: Abdominal Pain Stated Complaint: pelvic pain Time Seen by Provider: 12/01/21 20:59 Source: patient Mode of arrival: ambulatory Limitations: no limitations - History of Present Illness Initial Comments: Patient is a 46-year-old female presenting with chief complaint of right lower quadrant pain. Past surgical history includes cholecystectomy, hysterectomy. She states that the pain is been ongoing since yesterday morning. It feels like a knot in her right lower quadrant. She admits to nausea, vomiting, diarrhea. The pain is worse with any change of position. Patient states that she has been sleeping for long periods of time at home and has not been staying well- hydrated. She states that her urine appears darker and she has to strain to urinate. Denies chest pain, shortness of breath, palpitations, weakness, hematemesis, hematochezia, melena, dysuria, urgency, frequency, headache, fever, chills, neck pain or stiffness, flank pain. - Related Data Home Medications Medication Instructions Recorded Confirmed Spironolactone [Aldactone] 25 mg PO DAILY 02/05/17 12/01/21 QUEtiapine [SEROquel] 150 mg PO HS 02/25/19 12/01/21 Citalopram Hydrobromide [CeleXA] 40 mg PO DAILY 06/12/19 12/01/21 oxyCODONE-APAP 7.5-325MG [Percocet 1 tab PO TID PRN 01/01/20 12/01/21 7.5-325 mg] Dicyclomine [Bentyl] 10 mg PO QID PRN 05/28/20 12/01/21 levETIRAcetam [Keppra] 500 mg PO DAILY 02/24/21 12/01/21 rOPINIRole HCL [Requip] 0.25 mg PO HS 02/24/21 12/01/21 Carvedilol [Coreg] 25 mg PO BID 03/26/21 12/01/21 Albuterol Sulfate [Proventil Hfa] 2 puff INHALATION RT-Q4H PRN 10/22/21 12/01/21 Ergocalciferol [Vitamin D2 (1250 1,250 mcg PO MO 10/22/21 12/01/21 Mcg = 55488 Iu)] QUEtiapine [SEROquel] 100 mg PO DAILY 10/22/21 12/01/21 diphenhydrAMINE [Benadryl] 50 mg PO TID 10/22/21 12/01/21 Famotidine [Pepcid] 20 mg PO BID 12/01/21 12/01/21 Previous Rx's Medication Instructions Recorded Magnesium Oxide [Magox 400] 400 mg PO DAILY 30 Days #30 tablet 10/22/21 amLODIPine [Norvasc] 5 mg PO DAILY 30 Days #30 tab 10/22/21 Allergies Allergy/AdvReac Type Severity Reaction Status Date / Time adhesive Allergy Rash/Hives Verified 12/01/21 21:44 amoxicillin Allergy Anaphylaxis Verified 12/01/21 21:44 azithromycin [From Zithromax] Allergy Anaphylaxis Verified 12/01/21 21:44 cephalexin monohydrate Allergy Anaphylaxis Verified 12/01/21 21:44 [From Keflex] ciprofloxacin Allergy Anaphylaxis Verified 12/01/21 21:44 clindamycin Allergy Anaphylaxis Verified 12/01/21 21:44 Iodinated Contrast Media Allergy Anaphylaxis Verified 12/01/21 21:44 [Iodinated Contrast- Oral and IV Dye] levofloxacin [From Levaquin] Allergy Rash/Hives Verified 12/01/21 21:44 naproxen Allergy Anaphylaxis Verified 12/01/21 21:44 NSAIDS (Non-Steroidal Allergy Rash/Hives Verified 12/01/21 21:44 Anti-Inflamma shellfish derived Allergy Anaphylaxis Verified 12/01/21 21:44 Sulfa (Sulfonamide Allergy Anaphylaxis Verified 12/01/21 21:44 Antibiotics) sulfamethoxazole Allergy Anaphylaxis Verified 12/01/21 21:44 [From Bactrim] tramadol Allergy Unknown Verified 12/01/21 21:44 trimethoprim [From Bactrim] Allergy Anaphylaxis Verified 12/01/21 21:44 Review of Systems ROS Statement: Those systems with pertinent positive or pertinent negative responses have been documented in the HPI. ROS Other: All systems not noted in ROS Statement are negative. 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 IBS, cellulitis of the chin, History of Any Multi-Drug Resistant Organisms: MRSA Date of last positivie culture/infection: 07/2016 MDRO Source:: chin Past Surgical History: Section, Cholecystectomy, Hysterectomy, Tubal Ligation Additional Past Surgical History / Comment(s): oral surgery . Pancreas biopsy May 2015. Past Anesthesia/Blood Transfusion Reactions: No Reported Reaction Past Psychological History: ADD/ADHD, Anxiety, Bipolar, Depression Smoking Status: Current every day smoker Past Alcohol Use History: None Reported Past Drug Use History: Marijuana - Past Family History Father History Unknown: Yes Family Medical History: No Reported History Additional Family Medical History / Comment(s): ADOPTED General Exam Limitations: no limitations General appearance: alert, in no apparent distress, obese Head exam: Present: atraumatic, normocephalic, normal inspection Eye exam: Present: normal appearance, EOMI. Absent: scleral icterus Neck exam: Present: normal inspection Respiratory exam: Present: wheezes. Absent: respiratory distress, rales, rhonchi, stridor Cardiovascular Exam: Present: regular rate, normal rhythm, normal heart sounds. Absent: systolic murmur, diastolic murmur, rubs, gallop, clicks GI/Abdominal exam: Present: soft, tenderness (diffuse), diminished bowel sounds. Absent: distended, guarding, rebound, rigid Back exam: Present: normal inspection. Absent: CVA tenderness (R), CVA tenderness (L) Neurological exam: Present: alert, oriented X3, CN II-XII intact Psychiatric exam: Present: normal affect, normal mood Skin exam: Present: warm, dry, intact, normal color. Absent: rash Course Vital Signs 12/01/21 12/01/21 12/01/21 16:56 21:34 21:58 Temperature 98.0 F 98.8 F Pulse Rate 89 78 76 Respiratory 18 12 12 Rate Blood Pressure 104/75 120/58 110/73 O2 Sat by Pulse 98 93 L 96 Oximetry 12/02/21 00:00 Temperature Pulse Rate 78 Respiratory 18 Rate Blood Pressure 112/86 O2 Sat by Pulse 95 Oximetry Medical Decision Making - Medical Decision Making Patient is a 46-year-old female presenting with chief complaint of abdominal pain. Patient endorses right lower quadrant pain since yesterday, is accompanied by nausea and vomiting. Patient states that her urine appears darker and she has had to push to urinate. On exam abdomen is diffusely tender. Lab work shows slight leukocytosis with WBC of 10.8. Creatinine is 2.45 and BU N is 36, this is a drastic elevation compared to patient's previous baseline. Patient was given 2 L bolus normal saline. Pelvic ultrasound was obtained to rule out ovarian torsion, no evidence of right ovarian torsion. CT of the abdomen and pelvis without contrast shows no evidence of renal stone or obstruction. The appendix is large and measuring at 12 mm, previously measured at 8 mm. There is no evidence of inflammation. Appendix contains air and fecal material. I discussed these findings with my attending, he advised me to admit this patient to medicine and consult surgery to determine if this meets criteria for appendicitis. UA is still pending at this time. I spoke with Dianne Ashford from [facility] who agreed to admit the patient. I informed the patient of the findings, she conveyed verbal understanding and was in agreement with the plan. I discussed this case with my attending Dr. Collier. - Lab Data Result diagrams: 12/01/21 21:40 12/01/21 21:40 Lab Results 12/01/21 12/01/21 12/01/21 Range/Units 21:40 21:40 21:40 WBC 10.8 H (3.8-10.6) k/uL RBC 3.95 (3.80-5.40) m/uL Hgb 10.7 L (11.4-16.0) gm/dL Hct 35.6 (34.0-46.0) % MCV 90.1 (80.0-100.0) fL MCH 27.2 (25.0-35.0) pg MCHC 30.2 L (31.0-37.0) g/dL RDW 13.1 (11.5-15.5) % Plt Count 338 (150-450) k/uL MPV 7.7 Neutrophils % 56 % Lymphocytes % 32 % Monocytes % 5 % Eosinophils % 5 % Basophils % 1 % Neutrophils # 6.0 (1.3-7.7) k/uL Lymphocytes # 3.5 (1.0-4.8) k/uL Monocytes # 0.5 (0-1.0) k/uL Eosinophils # 0.5 (0-0.7) k/uL Basophils # 0.1 (0-0.2) k/uL Hypochromasia Slight PT 9.6 (9.0-12.0) sec INR 0.9 (<1.2) APTT 23.8 (22.0-30.0) sec Sodium (137-145) mmol/L Potassium (3.5-5.1) mmol/L Chloride (98-107) mmol/L Carbon Dioxide (22-30) mmol/L Anion Gap mmol/L BUN (7-17) mg/dL Creatinine (0.52-1.04) mg/dL Est GFR (CKD-EPI)AfAm (>60 ml/min/1.73 sqM) Est GFR (CKD-EPI)NonAf (>60 ml/min/1.73 sqM) Glucose (74-99) mg/dL Plasma Lactic Acid Srinivas (0.7-2.0) mmol/L Calcium (8.4-10.2) mg/dL Total Bilirubin (0.2-1.3) mg/dL AST (14-36) U/L ALT (4-34) U/L Alkaline Phosphatase (38-126) U/L Troponin I (0.000-0.034) ng/mL Total Protein (6.3-8.2) g/dL Albumin (3.5-5.0) g/dL Amylase (30-110) U/L Lipase (23-300) U/L Urine Color Yellow Urine Appearance Cloudy H (Clear) Urine pH 5.0 (5.0-8.0) Ur Specific Grady 1.023 (1.001-1.035) Urine Protein 1+ H (Negative) Urine Glucose (UA) Negative (Negative) Urine Ketones Trace H (Negative) Urine Blood Trace H (Negative) Urine Nitrite Negative (Negative) Urine Bilirubin Negative (Negative) Urine Urobilinogen 2.0 (<2.0) mg/dL Ur Leukocyte Esterase Large H (Negative) Urine RBC 1 (0-5) /hpf Urine WBC 7 H (0-5) /hpf Ur Squamous Epith Cells 2 (0-4) /hpf Ur Transition Epith Cell <1 (0-1) /hpf Urine Bacteria Occasional H (None) /hpf Hyaline Casts 33 H (0-2) /lpf Urine Mucus Rare H (None) /hpf 12/01/21 12/01/21 12/01/21 Range/Units 21:40 21:40 21:40 WBC (3.8-10.6) k/uL RBC (3.80-5.40) m/uL Hgb (11.4-16.0) gm/dL Hct (34.0-46.0) % MCV (80.0-100.0) fL MCH (25.0-35.0) pg MCHC (31.0-37.0) g/dL RDW (11.5-15.5) % Plt Count (150-450) k/uL MPV Neutrophils % % Lymphocytes % % Monocytes % % Eosinophils % % Basophils % % Neutrophils # (1.3-7.7) k/uL Lymphocytes # (1.0-4.8) k/uL Monocytes # (0-1.0) k/uL Eosinophils # (0-0.7) k/uL Basophils # (0-0.2) k/uL Hypochromasia PT (9.0-12.0) sec INR (<1.2) APTT (22.0-30.0) sec Sodium 135 L (137-145) mmol/L Potassium 4.7 (3.5-5.1) mmol/L Chloride 93 L (98-107) mmol/L Carbon Dioxide 37 H (22-30) mmol/L Anion Gap 5 mmol/L BUN 36 H (7-17) mg/dL Creatinine 2.45 H (0.52-1.04) mg/dL Est GFR (CKD-EPI)AfAm 26 (>60 ml/min/1.73 sqM) Est GFR (CKD-EPI)NonAf 23 (>60 ml/min/1.73 sqM) Glucose 112 H (74-99) mg/dL Plasma Lactic Acid Srinivas 0.6 L (0.7-2.0) mmol/L Calcium 8.5 (8.4-10.2) mg/dL Total Bilirubin <0.1 L (0.2-1.3) mg/dL AST 13 L (14-36) U/L ALT 12 (4-34) U/L Alkaline Phosphatase 92 (38-126) U/L Troponin I <0.012 (0.000-0.034) ng/mL Total Protein 6.7 (6.3-8.2) g/dL Albumin 3.8 (3.5-5.0) g/dL Amylase 56 (30-110) U/L Lipase 39 (23-300) U/L Urine Color Urine Appearance (Clear) Urine pH (5.0-8.0) Ur Specific Grady (1.001-1.035) Urine Protein (Negative) Urine Glucose (UA) (Negative) Urine Ketones (Negative) Urine Blood (Negative) Urine Nitrite (Negative) Urine Bilirubin (Negative) Urine Urobilinogen (<2.0) mg/dL Ur Leukocyte Esterase (Negative) Urine RBC (0-5) /hpf Urine WBC (0-5) /hpf Ur Squamous Epith Cells (0-4) /hpf Ur Transition Epith Cell (0-1) /hpf Urine Bacteria (None) /hpf Hyaline Casts (0-2) /lpf Urine Mucus (None) /hpf - EKG Data -: EKG Interpreted by Me (EKG was also shown to and interpreted by my attending Dr. Collier) EKG shows normal: sinus rhythm, axis, intervals Rate: normal EKG Comments: Sinus rhythm with rate of 76. IL interval 155. QRS duration 106. - Radiology Data Radiology results: report reviewed, image reviewed CT of the abdomen and pelvis without contrast: No evidence of renal stone or obstruction. The appendix is large and measures 12 mm in diameter but no e vidence of inflammation. Appendix contains air and fecal material. However the appendix is increased from 8 mm to 12 mm compared to old exam. Therefore appendicitis is not excluded Disposition Clinical Impression: BRETT (acute kidney injury), Abdominal pain Disposition: ADMITTED IP TO THIS [facility] Condition: Fair Is patient prescribed a controlled substance at d/c from ED?: No Referrals: Kaleb Huston DO [Primary Care Provider] - 1-2 days Time of Disposition: 00:35 Decision to Admit Reason: Admit from EC Decision Date: 12/02/21 Decision Time: 00:36
[2021-12-01 22:03] LABS: Basophils # (A) 0.1 k/uL (0-0.2); Basophils % (A) 1 %; Eosinophils # (A) 0.5 k/uL (0-0.7); Eosinophils % (A) 5 %; HCT 35.6 % (34.0-46.0); HGB 10.7 gm/dL (11.4-16.0); Hypochromasia Slight; Lymphocytes # (A) 3.5 k/uL (1.0-4.8); Lymphocytes % (A) 32 %; MCH 27.2 pg (25.0-35.0); MCHC 30.2 g/dL (31.0-37.0); MCV 90.1 fL (80.0-100.0); Mean Platelet Volume 7.7; Monocytes # (A) 0.5 k/uL (0-1.0); Monocytes % (A) 5 %; Neutrophils % (A) 56 %; Platelet Count 338 k/uL (150-450); RBC 3.95 m/uL (3.80-5.40); RDW 13.1 % (11.5-15.5); WBC 10.8 k/uL (3.8-10.6)
[2021-12-01 22:16] LABS: INR 0.9 (<1.2); Partial Thromboplastin Time 23.8 sec (22.0-30.0); Prothrombin Time 9.6 sec (9.0-12.0)
[2021-12-01 22:21] LABS: ALT 12 U/L (4-34); AST 13 U/L (14-36); African American GFR (CKD) 26 (>60 ml/min/1.73 sqM); Albumin 3.8 g/dL (3.5-5.0); Alkaline Phosphatase 92 U/L (38-126); Amylase 56 U/L (30-110); Anion Gap 5 mmol/L; Blood Urea Nitrogen 36 mg/dL (7-17); Calcium 8.5 mg/dL (8.4-10.2); Carbon Dioxide 37 mmol/L (22-30); Chloride 93 mmol/L (98-107); Glucose 112 mg/dL (74-99); Lipase 39 U/L (23-300); Non-African American GFR(CKD) 23 (>60 ml/min/1.73 sqM); Potassium 4.7 mmol/L (3.5-5.1); Sodium 135 mmol/L (137-145); Total Bilirubin <0.1 mg/dL (0.2-1.3); Total Protein 6.7 g/dL (6.3-8.2)
[2021-12-01] MEDS ORDERED: SODIUM CHLORIDE 0.9% 1,000 ML IV ONE (22:44)
--- NOTE | 2021-12-01 23:00 | US ---
EXAMINATION TYPE: US pelvic complete DATE OF EXAM: 12/01/2021 COMPARISON: CT 09/12/21 CLINICAL HISTORY: RLQ pain, r/o torsion. RLQ pain. Hx hysterectomy and Lt oophorectomy. A1 TECHNIQUE: Transabdominal (TA). Date of LMP: Hysterectomy in 2009 EXAM MEASUREMENTS: Right Ovary: 3.1 x 2.2 x 2.3 cm 1. Uterus: Surgically absent 2. Endometrium: Surgically absent 3. Right Ovary: Arterial and venous flow seen. 4. Left Ovary: Surgically absent Spectral, color and waveform doppler imaging shows good arterial and venous flow within the right o vary; there is no evidence for ovarian torsion. 5. Bilateral Adnexa: wnl 6. Posterior cul-de-sac: wnl IMPRESSION: No evidence of right ovarian torsion. Left ovary and uterus are absent. No evidence of a pelvic mass. No free fluid.
--- NOTE | 2021-12-02 00:12 | CT ---
EXAMINATION TYPE: CT abdomen pelvis wo con DATE OF EXAM: 12/01/2021 COMPARISON: 09/12/2021 HISTORY: RLQ pain CT DLP: 1213.4 mGycm Automated exposure control for dose reduction was used. Images obtained from the diaphragm to the floor of the pelvis without contrast. There is some linear infiltrate and atelectasis right posterior lung base. Heart size is normal. No p ericardial effusion. No pleural effusion. Liver spleen stomach appear intact. There is some air in th e biliary tree consistent with reflux. There clips from cholecystectomy. The bile ducts are not dilat ed. There is no pancreatic mass. There is no adrenal mass. Kidneys show normal size and contour. There is no hydronephrosis. Ureters a re not dilated. There is no retroperitoneal adenopathy. Appendix is inferior and contains air. No sig n of appendicitis. Appendix however is large and measures 12 mm in diameter. The bladder distends smoothly. There is no inguinal hernia. No free fluid in the pelvis. There is no mesenteric edema. No ascites or free air. No sign of a bowel obstruction. The lumbar vertebrae have n ormal alignment. No compression fracture. Disc spaces are fairly normal. The bony pelvis is intact. T he hip joints are intact. IMPRESSION: No evidence of renal stone or obstruction. The appendix is large and measures 12 mm in diameter but n o evidence of inflammation. Appendix contains air and fecal material. However the appendix is increas ed from 8 mm to 12 mm compared to old exam. Therefore appendicitis is not excluded.
[2021-12-02 00:28] LABS: Appearance,Urine Cloudy (Clear); Bacteria,Urine Occasional /hpf; Bilirubin,Urine Negative (Negative); Blood,Urine Trace (Negative); Color,Urine Yellow; Glucose,Urine (UA) Negative (Negative); Hyaline Casts,Urine 33 /lpf (0-2); Ketones,Urine Trace (Negative); Leukocyte Esterase,Urine Large (Negative); Mucus,Urine Rare /hpf; Nitrite,Urine Negative (Negative); Protein,Urine 1+ (Negative); RBC,Urine 1 /hpf (0-5); Specific Gravity,Urine 1.023 (1.001-1.035); Squamous Epithelial Cell,Urine 2 /hpf (0-4); Transitional Epi Cells,Urine <1 /hpf (0-1); WBC,Urine 7 /hpf (0-5)
[2021-12-02] MEDS ORDERED: NALOXONE 0.4 MG/ML 1 ML VIAL IV PRN (00:28)
[2021-12-02 02:13] LABS: Magnesium 2.3 mg/dL (1.6-2.3)
[2021-12-02] MEDS: SODIUM CHLORIDE 0.9% 1,000 ML IV SCH ×3 (03:13→21:57)
[2021-12-02] MEDS ORDERED: ALBUTEROL NEBULIZED 2.5 MG/3 ML INHALATION PRN (04:14)
--- NOTE | 2021-12-02 04:14 | P.HPIM ---
History of Present Illness H&P Date: 12/02/21 Chief Complaint: abd pain 46 year old female with asthma, CHF , hypertension patient comes in complaining of 2 days history of acute abd pain , right lower quadrant , associated with feeling nauseous , no vomiting, positive for diarrhea and dysuria . she also reports subjective fever, and chills. poor appetite. she denies any trauma or recent travel, denies any hematuria or history of kidney stones, denies any chest pain, cough, hematemesis , workup in the ED CT abd showed enlarged appendix 12 mm from 8 mm, suggetive of possible acute appendicitis WBC slightly elevated 10.8 BRETT and acute anemia US showed no free fluids in the abd , absent left ovary and uterus Review of Systems Pertinent positives as noted in HPI. 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 IBS, cellulitis of the chin, History of Any Multi-Drug Resistant Organisms: MRSA Date of last positivie culture/infection: 07/2016 MDRO Source:: chin Past Surgical History: Section, Cholecystectomy, Hysterectomy, Tubal Ligation Additional Past Surgical History / Comment(s): oral surgery . Pancreas biopsy May 2015. Past Anesthesia/Blood Transfusion Reactions: No Reported Reaction Past Psychological History: ADD/ADHD, Anxiety, Bipolar, Depression Smoking Status: Current every day smoker Past Alcohol Use History: None Reported Past Drug Use History: Marijuana - Past Family History Father History Unknown: Yes Family Medical History: No Reported History Additional Family Medical History / Comment(s): ADOPTED Medications and Allergies Home Medications Medication Instructions Recorded Confirmed Type Spironolactone [Aldactone] 25 mg PO DAILY 02/05/17 12/01/21 History QUEtiapine [SEROquel] 150 mg PO HS 02/25/19 12/01/21 History Citalopram Hydrobromide [CeleXA] 40 mg PO DAILY 06/12/19 12/01/21 History oxyCODONE-APAP 7.5-325MG [Percocet 1 tab PO TID PRN 01/01/20 12/01/21 History 7.5-325 mg] Dicyclomine [Bentyl] 10 mg PO QID PRN 05/28/20 12/01/21 History levETIRAcetam [Keppra] 500 mg PO DAILY 02/24/21 12/01/21 History rOPINIRole HCL [Requip] 0.25 mg PO HS 02/24/21 12/01/21 History Carvedilol [Coreg] 25 mg PO BID 03/26/21 12/01/21 History Albuterol Sulfate [Proventil Hfa] 2 puff INHALATION RT-Q4H PRN 10/22/21 12/01/21 History Ergocalciferol [Vitamin D2 (1250 1,250 mcg PO MO 10/22/21 12/01/21 History Mcg = 58180 Iu)] Magnesium Oxide [Magox 400] 400 mg PO DAILY 30 Days #30 tablet 10/22/21 12/01/21 Rx QUEtiapine [SEROquel] 100 mg PO DAILY 10/22/21 12/01/21 History amLODIPine [Norvasc] 5 mg PO DAILY 30 Days #30 tab 10/22/21 12/01/21 Rx diphenhydrAMINE [Benadryl] 50 mg PO TID 10/22/21 12/01/21 History Famotidine [Pepcid] 20 mg PO BID 12/01/21 12/01/21 History Allergies Allergy/AdvReac Type Severity Reaction Status Date / Time adhesive Allergy Rash/Hives Verified 12/01/21 21:44 amoxicillin Allergy Anaphylaxis Verified 12/01/21 21:44 azithromycin [From Zithromax] Allergy Anaphylaxis Verified 12/01/21 21:44 cephalexin monohydrate Allergy Anaphylaxis Verified 12/01/21 21:44 [From Keflex] ciprofloxacin Allergy Anaphylaxis Verified 12/01/21 21:44 clindamycin Allergy Anaphylaxis Verified 12/01/21 21:44 Iodinated Contrast Media Allergy Anaphylaxis Verified 12/01/21 21:44 [Iodinated Contrast- Oral and IV Dye] levofloxacin [From Levaquin] Allergy Rash/Hives Verified 12/01/21 21:44 naproxen Allergy Anaphylaxis Verified 12/01/21 21:44 NSAIDS (Non-Steroidal Allergy Rash/Hives Verified 12/01/21 21:44 Anti-Inflamma shellfish derived Allergy Anaphylaxis Verified 12/01/21 21:44 Sulfa (Sulfonamide Allergy Anaphylaxis Verified 12/01/21 21:44 Antibiotics) sulfamethoxazole Allergy Anaphylaxis Verified 12/01/21 21:44 [From Bactrim] tramadol Allergy Unknown Verified 12/01/21 21:44 trimethoprim [From Bactrim] Allergy Anaphylaxis Verified 12/01/21 21:44 Physical Exam Vitals: Vital Signs Temp Pulse Resp BP Pulse Ox 12/02/21 03:00 76 18 110/85 96 12/02/21 00:00 78 18 112/86 95 12/01/21 21:58 76 12 110/73 96 12/01/21 21:34 98.8 F 78 12 120/58 93 L 12/01/21 16:56 98.0 F 89 18 104/75 98 Intake and Output 12/01/21 12/01/21 12/02/21 14:59 22:59 06:59 Other: Weight 87.09 kg Constitutional: patient complaining of abd pain, cooperative with interview and exam Eyes: Anicteric sclerae, moist conjunctiva, Pupils equal round reactive to light ENMT: NC/AT Oropharynx clear, no erythema, or exudates Neck: Supple, FROM, no masses, or JVD No carotid bruits No thyromegaly Lungs: Clear to auscultation Clear to percussion Normal respiratory effort, no accessory muscle use Cardiovascular: Heart regular in rate and rhythm, No murmurs, gallops, or rubs No peripheral edema Abdominal: Soft tenderness in the lower abd , mainly RLQ, with rebound tenderness and some signs of mild peritonitis , voluntary guarding , no rigidity Abdomen moving with respiration Normoactive bowel sounds No hepatomegaly, No splenomegaly No palpable mass No abdominal wall hernia noted Skin: Normal temperature, tone, texture, turgor No induration No subcutaneous nodules No rash, lesions No ulcers Extremities: No digital cyanosis No clubbing Pedal pulses intact and symmetrical Radial pulses intact and symmetrical No calf tenderness Psychiatric: Alert and oriented to person, place and time Appropriate affect fair judgement Neuro Muscles Strength 4/5 in all 4 extremities Sensation to light touch grossly present throughout Cranial nerves II-XII grossly intact No focal sensory deficits Lymphatics: no palpable cervical or supraclavicular , or inguinal lymph nodes Results CBC & Chem 7: 12/01/21 21:40 12/01/21 21:40 Labs: Abnormal Lab Results - Last 24 Hours (Table) 12/01/21 12/01/21 12/01/21 Range/Units 21:40 21:40 21:40 WBC 10.8 H (3.8-10.6) k/uL Hgb 10.7 L (11.4-16.0) gm/dL MCHC 30.2 L (31.0-37.0) g/dL Sodium 135 L (137-145) mmol/L Chloride 93 L (98-107) mmol/L Carbon Dioxide 37 H (22-30) mmol/L BUN 36 H (7-17) mg/dL Creatinine 2.45 H (0.52-1.04) mg/dL Glucose 112 H (74-99) mg/dL Plasma Lactic Acid Srinivas (0.7-2.0) mmol/L Total Bilirubin <0.1 L (0.2-1.3) mg/dL AST 13 L (14-36) U/L Urine Appearance Cloudy H (Clear) Urine Protein 1+ H (Negative) Urine Ketones Trace H (Negative) Urine Blood Trace H (Negative) Ur Leukocyte Esterase Large H (Negative) Urine WBC 7 H (0-5) /hpf Urine Bacteria Occasional H (None) /hpf Hyaline Casts 33 H (0-2) /lpf Urine Mucus Rare H (None) /hpf 12/01/21 Range/Units 21:40 WBC (3.8-10.6) k/uL Hgb (11.4-16.0) gm/dL MCHC (31.0-37.0) g/dL Sodium (137-145) mmol/L Chloride (98-107) mmol/L Carbon Dioxide (22-30) mmol/L BUN (7-17) mg/dL Creatinine (0.52-1.04) mg/dL Glucose (74-99) mg/dL Plasma Lactic Acid Srinivas 0.6 L (0.7-2.0) mmol/L Total Bilirubin (0.2-1.3) mg/dL AST (14-36) U/L Urine Appearance (Clear) Urine Protein (Negative) Urine Ketones (Negative) Urine Blood (Negative) Ur Leukocyte Esterase (Negative) Urine WBC (0-5) /hpf Urine Bacteria (None) /hpf Hyaline Casts (0-2) /lpf Urine Mucus (None) /hpf Assessment and Plan Assessment: abd pain , rule out acute appendicitis NPO blood cultures initiate antibiotics with flagyl (patient is allergic to almost every other single class of medications) await surgical evaluation CT abd reviewed , suggestive of possible acute appy pain control with morphine IVF hydration with normal saline acute mild anemia denies GI bleeding Abd US no evidence of free fluids monitor hgb BRETT hold nephrotoxic meds IVF hydration with normal saline chronic conditions CHF compensated COPD compensated ' h/o seizures resume home meds and inhalers full code heparin sc tid for DVT PPX anticipated length of stay < 2 midnights
[2021-12-02] MEDS: MORPHINE SULFATE 4 MG/ML SYRINGE IVP PRN ×3 (04:21→13:02)
[2021-12-02] MEDS: HEPARIN SODIUM,PORCINE/PF 5,000 UNIT/0.5 ML SYRINGE SQ SCH ×2 (08:24→21:17)
[2021-12-02] MEDS: carvediloL 12.5 MG TAB PO SCH ×2 (08:25→21:57)
[2021-12-02] MEDS: metroNIDAZOLE-NS PMX 500 MG in SALINE 1 100ML.BAG IVPB SCH ×2 (08:25→16:09)
[2021-12-02] MEDS: CITALOPRAM HYDROBROMIDE 20 MG TAB PO SCH (08:26)
[2021-12-02] MEDS: levETIRAcetam 500 MG TAB PO SCH (08:26)
[2021-12-02] MEDS: amLODIPine 5 MG TAB PO SCH (08:26)
[2021-12-02] MEDS: QUEtiapine 50 MG TAB PO SCH ×2 (08:26→22:38)
[2021-12-02] MEDS ORDERED: FAMOTIDINE 20 MG TAB PO SCH (09:00)
[2021-12-02 09:01] LABS: Basophils # (A) 0.03 X 10*3/uL (0.00-0.10); Basophils % (A) 0.4 %; Eosinophils # (A) 0.38 X 10*3/uL (0.04-0.35); Eosinophils % (A) 4.8 %; HCT 35.1 % (37.2-46.3); HGB 10.3 g/dL (12.0-15.0); Immature Grans, Automated 1.1 %; Lymphocytes # (A) 2.65 X 10*3/uL (0.90-5.00); Lymphocytes % (A) 33.5 %; MCH 26.6 pg (27.0-32.0); MCHC 29.3 g/dL (32.0-37.0); MCV 90.7 fL (80.0-97.0); Mean Platelet Volume 9.9 fL (9.5-12.2); Monocytes # (A) 0.66 X 10*3/uL (0.20-1.00); Monocytes % (A) 8.3 %; NRBC Per 100 WBC 0 /100 WBCS (0.0-0.0); Neutrophils # (A) 4.11 X 10*3/uL (1.80-7.70); Neutrophils % (A) 51.9 %; Platelet Count 317 X 10*3/uL (140-440); RBC 3.87 X 10*6/uL (4.10-5.20); RDW 13.3 % (11.5-14.5); WBC 7.92 X 10*3/uL (4.50-10.00)
[2021-12-02 10:14] LABS: BUN/Creat Ratio 17.62 Ratio (12.00-20.00); Globulin 2.5 g/dL (1.6-3.3)
[2021-12-02 10:15] LABS: ALT 11 U/L (8-44); AST 7 U/L (13-35); African American GFR (CKD) 36.2 (60.0-200.0); Albumin 3.5 g/dL (3.8-4.9); Albumin/Globulin Ratio 1.43 (1.60-3.17); Alkaline Phosphatase 101 U/L (41-126); Blood Urea Nitrogen 33.3 mg/dL (9.0-27.0); Calcium 8.2 mg/dL (8.7-10.3); Carbon Dioxide 28.6 mmol/L (20.0-27.5); Chloride 97 mmol/L (96-109); Glucose 92 mg/dL (70-110); Non-African American GFR(CKD) 31.3 (60.0-200.0); Potassium 4.9 mmol/L (3.5-5.5); Sodium 136 mmol/L (135-145); Total Bilirubin <0.15 mg/dL (0.30-1.20)
[2021-12-02] MEDS: AZTREONAM 1 GM in SODIUM CHLORIDE 0.9% 50 ML IVPB SCH ×3 (10:38→23:16)
--- NOTE | 2021-12-02 13:40 | P.PN ---
Progress Note - Text Progress Note Date: 12/02/21 Patient was seen this morning. She is denying any fevers but states that she has some chills. She is complaining of right lower quadrant pain. Patient states that she has multiple drug ALLERGIES. Patient also has a history of smoking. She states that she is on 2 L oxygen at home. I also reviewed patient's labs. Her creatinine is trending down. She is hemodynamically stable. I will add IV aztreonam. Continue with breathing treatments. Continue with fluids. Awaiting further recommendations from general surgery.
--- NOTE | 2021-12-02 13:54 | P.GSCN ---
History of Present Illness Consult date: 12/02/21 History of present illness: CHIEF COMPLAINT: abdominal pain HISTORY OF PRESENT ILLNESS: This is a 46-year-old female who presented to the hospital with complaints of right lower quadrant abdominal pain. She reports that the pain started 2 nights ago around 3 AM. The pain came on suddenly. She rated the pain 10 out of 10. She does have nausea episode of vomiting. She also some some chills no fevers. Pain was worse with movement. She has been dealing with constipation and diarrhea which is normal for her due to her IBS. Past surgical history includes close to hysterectomies and . Patient has computed tomography scan of the abdomen and pelvis that demonstrated no evidence of renal stone or obstruction. The appendix was large and measures 12 mm in diameter but no evidence of inflammation. Appendix contains air and fecal material. However the appendix is increased from 8 mm to 12 L compared to old exam. Therefore appendicitis is not excluded. PAST MEDICAL HISTORY: See list. PAST SURGICAL HISTORY: See list. MEDICATIONS: See list. ALLERGIES: See list. SOCIAL HISTORY: No illicit drug use. REVIEW OF SYSTEMS: CONSTITUTIONAL: Denies fever or chills. HEENT: Denies blurred vision, vision changes, or eye pain. Denies hemoptysis CARDIOVASCULAR: Denies chest pain or pressure. RESPIRATORY: No shortness of breath. GASTROINTESTINAL: See HPI for pertinent findings HEMATOLOGIC: Denies bleeding disorders. GENITOURINARY: Denies any blood in urine or increased urinary frequency. SKIN: Denies pruitis. Denies rash. PHYSICAL EXAM: VITAL SIGNS: Reviewed GENERAL: Well-developed in no acute distress. HEENT: No sclera icterus. Extraocular movements grossly intact. Moist buccal mucosa. Head is atraumatic, normocephalic. No nasal drainage. ABDOMEN: Soft. Nondistended. Tenderness with palpation to right lower quadrant. NEUROLOGIC: Alert and oriented. Cranial nerves II through XII grossly intact. LABORATORY DATA: WBC 10.8- 7.2 hemoglobin 10.3-317 sodium is 136 potassium is 4.9 creatinine 2.45 down to 1.9 Lactic acid 0.6 Total bilirubin 0.15 AST 7 ALT 11 alk phos 101 Lipase 39 IMAGING: Computed tomography scan abdomen as stated above ASSESSMENT: 1. Right lower quadrant abdominal pain with enlarged appendix noted on CAT scan 2. Acute appendicitis PLAN: -Patient is scheduled for laparoscopic or possible open appendectomy today with Dr. Rios -Keep patient nothing by mouth -Continue IV antibiotics -Continue IV fluids -Continue pain medication as needed Thank you for this consultation Physician Patient Care Nursing Assistant note has been reviewed by physician. Signing provider agrees with the documented findings, assessment, and plan of care. I have personally seen and examined the patient, reviewed the COUNTERPERSON /PAs history, exam and MDM and agree with the assessment and plan as written. Based on total visit time, I have performed more than 50% of the visit. As above: Patient with right lower quadrant pain and enlarged appendix. Patient is tender in the right lower quadrant. Options reviewed with patient. We'll proceed with laparoscopic, possible open appendectomy at this time. Risks of bleeding, infection, persistent pain, findings to explain pain other than appendicitis, conversion to an open procedure, bladder bowel and ureteral injury reviewed. She understands wishes to proceed. 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 IBS, cellulitis of the chin, History of Any Multi-Drug Resistant Organisms: MRSA Year Discovered:: 07/2016 MDRO Source:: [facility] Past Surgical History: Section, Cholecystectomy, Hysterectomy, Tubal Li gation Additional Past Surgical History / Comment(s): oral surgery . Pancreas biopsy May 2015. Past Anesthesia/Blood Transfusion Reactions: No Reported Reaction Past Psychological History: ADD/ADHD, Anxiety, Bipolar, Depression Smoking Status: Current every day smoker Past Alcohol Use History: None Reported Past Drug Use History: Marijuana - Past Family History Father History Unknown: Yes Family Medical History: No Reported History Additional Family Medical History / Comment(s): ADOPTED Medications and Allergies Home Medications Medication Instructions Recorded Confirmed Type Spironolactone [Aldactone] 25 mg PO DAILY 02/05/17 12/01/21 History QUEtiapine [SEROquel] 150 mg PO HS 02/25/19 12/01/21 History Citalopram Hydrobromide [CeleXA] 40 mg PO DAILY 06/12/19 12/01/21 History oxyCODONE-APAP 7.5-325MG [Percocet 1 tab PO TID PRN 01/01/20 12/01/21 History 7.5-325 mg] Dicyclomine [Bentyl] 10 mg PO QID PRN 05/28/20 12/01/21 History levETIRAcetam [Keppra] 500 mg PO DAILY 02/24/21 12/01/21 History rOPINIRole HCL [Requip] 0.25 mg PO HS 02/24/21 12/01/21 History Carvedilol [Coreg] 25 mg PO BID 03/26/21 12/01/21 History Albuterol Sulfate [Proventil Hfa] 2 puff INHALATION RT-Q4H PRN 10/22/21 12/01/21 History Ergocalciferol [Vitamin D2 (1250 1,250 mcg PO MO 10/22/21 12/01/21 History Mcg = 30704 Iu)] Magnesium Oxide [Magox 400] 400 mg PO DAILY 30 Days #30 tablet 10/22/21 12/01/21 Rx QUEtiapine [SEROquel] 100 mg PO DAILY 10/22/21 12/01/21 History amLODIPine [Norvasc] 5 mg PO DAILY 30 Days #30 tab 10/22/21 12/01/21 Rx diphenhydrAMINE [Benadryl] 50 mg PO TID 10/22/21 12/01/21 History Famotidine [Pepcid] 20 mg PO BID 12/01/21 12/01/21 History Allergies Allergy/AdvReac Type Severity Reaction Status Date / Time adhesive Allergy Rash/Hives Verified 12/01/21 21:44 amoxicillin Allergy Anaphylaxis Verified 12/01/21 21:44 azithromycin [From Zithromax] Allergy Anaphylaxis Verified 12/01/21 21:44 cephalexin monohydrate Allergy Anaphylaxis Verified 12/01/21 21:44 [From Keflex] ciprofloxacin Allergy Anaphylaxis Verified 12/01/21 21:44 clindamycin Allergy Anaphylaxis Verified 12/01/21 21:44 Iodinated Contrast Media Allergy Anaphylaxis Verified 12/01/21 21:44 [Iodinated Contrast- Oral and IV Dye] levofloxacin [From Levaquin] Allergy Rash/Hives Verified 12/01/21 21:44 naproxen Allergy Anaphylaxis Verified 12/01/21 21:44 NSAIDS (Non-Steroidal Allergy Rash/Hives Verified 12/01/21 21:44 Anti-Inflamma shellfish derived Allergy Anaphylaxis Verified 12/01/21 21:44 Sulfa (Sulfonamide Allergy Anaphylaxis Verified 12/01/21 21:44 Antibiotics) sulfamethoxazole Allergy Anaphylaxis Verified 12/01/21 21:44 [From Bactrim] tramadol Allergy Unknown Verified 12/01/21 21:44 trimethoprim [From Bactrim] Allergy Anaphylaxis Verified 12/01/21 21:44 Surgical - Exam Vital Signs Temp Pulse Resp BP Pulse Ox 98.0 F 89 18 104/75 98 12/01/21 16:56 12/01/21 16:56 12/01/21 16:56 12/01/21 16:56 12/01/21 16:56 Results - Labs 12/02/21 04:35 12/02/21 04:35 Abnormal Lab Results - Last 24 Hours (Table) 12/01/21 12/01/21 12/01/21 Range/Units 21:40 21:40 21:40 WBC 10.8 H (3.8-10.6) k/uL RBC (4.10-5.20) X 10*6/uL Hgb 10.7 L (11.4-16.0) gm/dL Hct (37.2-46.3) % MCH (27.0-32.0) pg MCHC 30.2 L (31.0-37.0) g/dL Immature Gran # (0.00-0.04) X 10*3/uL Eosinophils # (0.04-0.35) X 10*3/uL Sodium 135 L (137-145) mmol/L Chloride 93 L (98-107) mmol/L Carbon Dioxide 37 H (22-30) mmol/L BUN 36 H (7-17) mg/dL Creatinine 2.45 H (0.52-1.04) mg/dL Est GFR (CKD-EPI)AfAm (60.0-200.0) Est GFR (CKD-EPI)NonAf (60.0-200.0) Glucose 112 H (74-99) mg/dL Plasma Lactic Acid Srinivas (0.7-2.0) mmol/L Calcium (8.7-10.3) mg/dL Total Bilirubin <0.1 L (0.2-1.3) mg/dL AST 13 L (14-36) U/L Total Protein (6.2-8.2) g/dL Albumin (3.8-4.9) g/dL Albumin/Globulin Ratio (1.60-3.17) g/dL Urine Appearance Cloudy H (Clear) Urine Protein 1+ H (Negative) Urine Ketones Trace H (Negative) Urine Blood Trace H (Negative) Ur Leukocyte Esterase Large H (Negative) Urine WBC 7 H (0-5) /hpf Urine Bacteria Occasional H (None) /hpf Hyaline Casts 33 H (0-2) /lpf Urine Mucus Rare H (None) /hpf 12/01/21 12/02/21 12/02/21 Range/Units 21:40 04:35 04:35 WBC (3.8-10.6) k/uL RBC 3.87 L (4.10-5.20) X 10*6/uL Hgb 10.3 L (11.4-16.0) gm/dL Hct 35.1 L (37.2-46.3) % MCH 26.6 L (27.0-32.0) pg MCHC 29.3 L (31.0-37.0) g/dL Immature Gran # 0.09 H (0.00-0.04) X 10*3/uL Eosinophils # 0.38 H (0.04-0.35) X 10*3/uL Sodium (137-145) mmol/L Chloride (98-107) mmol/L Carbon Dioxide 28.6 H (22-30) mmol/L BUN 33.3 H (7-17) mg/dL Creatinine 1.9 H (0.52-1.04) mg/dL Est GFR (CKD-EPI)AfAm 36.2 L (60.0-200.0) Est GFR (CKD-EPI)NonAf 31.3 L (60.0-200.0) Glucose (74-99) mg/dL Plasma Lactic Acid Srinivas 0.6 L (0.7-2.0) mmol/L Calcium 8.2 L (8.7-10.3) mg/dL Total Bilirubin <0.15 L (0.2-1.3) mg/dL AST 7 L (14-36) U/L Total Protein 6.0 L (6.2-8.2) g/dL Albumin 3.5 L (3.8-4.9) g/dL Albumin/Globulin Ratio 1.43 L (1.60-3.17) g/dL Urine Appearance (Clear) Urine Protein (Negative) Urine Ketones (Negative) Urine Blood (Negative) Ur Leukocyte Esterase (Negative) Urine WBC (0-5) /hpf Urine Bacteria (None) /hpf Hyaline Casts (0-2) /lpf Urine Mucus (None) /hpf Diabetes panel 12/01/21 12/02/21 Range/Units 21:40 04:35 Sodium 135 L 136 (137-145) mmol/L Potassium 4.7 4.9 (3.5-5.1) mmol/L Chloride 93 L 97 (98-107) mmol/L Carbon Dioxide 37 H 28.6 H (22-30) mmol/L BUN 36 H 33.3 H (7-17) mg/dL Creatinine 2.45 H 1.9 H (0.52-1.04) mg/dL Glucose 112 H 92 (74-99) mg/dL Calcium 8.5 8.2 L (8.4-10.2) mg/dL AST 13 L 7 L (14-36) U/L ALT 12 11 (4-34) U/L Alkaline Phosphatase 92 101 (38-126) U/L Total Protein 6.7 6.0 L (6.3-8.2) g/dL Albumin 3.8 3.5 L (3.5-5.0) g/dL Calcium panel 12/01/21 12/02/21 Range/Units 21:40 04:35 Calcium 8.5 8.2 L (8.4-10.2) mg/dL Albumin 3.8 3.5 L (3.5-5.0) g/dL Pituitary panel 12/01/21 12/02/21 Range/Units 21:40 04:35 Sodium 135 L 136 (137-145) mmol/L Potassium 4.7 4.9 (3.5-5.1) mmol/L Chloride 93 L 97 (98-107) mmol/L Carbon Dioxide 37 H 28.6 H (22-30) mmol/L BUN 36 H 33.3 H (7-17) mg/dL Creatinine 2.45 H 1.9 H (0.52-1.04) mg/dL Glucose 112 H 92 (74-99) mg/dL Calcium 8.5 8.2 L (8.4-10.2) mg/dL Adrenal panel 12/01/21 12/02/21 Range/Units 21:40 04:35 Sodium 135 L 136 (137-145) mmol/L Potassium 4.7 4.9 (3.5-5.1) mmol/L Chloride 93 L 97 (98-107) mmol/L Carbon Dioxide 37 H 28.6 H (22-30) mmol/L BUN 36 H 33.3 H (7-17) mg/dL Creatinine 2.45 H 1.9 H (0.52-1.04) mg/dL Glucose 112 H 92 (74-99) mg/dL Calcium 8.5 8.2 L (8.4-10.2) mg/dL Total Bilirubin <0.1 L <0.15 L (0.2-1.3) mg/dL AST 13 L 7 L (14-36) U/L ALT 12 11 (4-34) U/L Alkaline Phosphatase 92 101 (38-126) U/L Total Protein 6.7 6.0 L (6.3-8.2) g/dL Albumin 3.8 3.5 L (3.5-5.0) g/dL
[2021-12-02] MEDS ORDERED: NEOSTIGMINE 1 MG/ML 10 ML VIAL ONE (17:45)
[2021-12-02] MEDS ORDERED: PROPOFOL 10 MG/ML 20 ML VIAL IV ONE (17:45)
[2021-12-02] MEDS ORDERED: GLYCOPYRROLATE 0.2 MG/ML 2 ML VIAL ONE (17:45)
[2021-12-02] MEDS ORDERED: LIDOCAINE 2% INJ 20 MG/ML (2 ML VIAL) ONE (17:45)
[2021-12-02] MEDS ORDERED: ROCURONIUM 10 MG/ML (5 ML VIAL) IV ONE (17:45)
[2021-12-02] MEDS ORDERED: MIDAZOLAM 2 MG/2 ML VIAL ONE (17:45)
[2021-12-02] MEDS ORDERED: fentaNYL (PF) 50 MCG/ML 2 ML AMP ONE (17:45)
[2021-12-02] MEDS ORDERED: SUCCINYLCHOLINE CHLORIDE 100 MG/5 ML SYR IV ONE (17:45)
[2021-12-02] MEDS ORDERED: IV FLUID CONTINUATION 200 ML IV ONE (17:54)
[2021-12-02] MEDS ORDERED: SODIUM CHLORIDE 0.9% 50 ML with ceFAZolin 2,000 MG IV ONE ×2 (17:54)
[2021-12-02] MEDS ORDERED: BUPIVACAINE (PF) 0.25% 30 ML VIAL SQ ONE (18:05)
[2021-12-02] MEDS ORDERED: LACTATED RINGERS 1,000 ML IV ONE (18:31)
--- NOTE | 2021-12-02 18:47 | P.OP ---
Date of Procedure: 12/02/21 Procedure(s) Performed: PREOPERATIVE DIAGNOSIS: Acute appendicitis POSTOPERATIVE DIAGNOSIS: Same PROCEDURE: Laparoscopic appendectomy SURGEON: Blanca EBL: 5 mL ANESTHESIA: General COMPLICATIONS: None OPERATIVE PROCEDURE: The patient was brought and placed on the operating table in the supine position. The patient was placed under general anesthesia. The abdomen was prepped and draped in the usual sterile fashion. A small curvilinear supraumbilical incision was made. The fascia was retracted anteriorly with [place] forceps. The Veress needle was advanced into the peritoneal cavity. The saline drop test was normal. Insufflation took place to 15 mmHg. A 5 mm trocar was then placed. An additional 5 mm suprapubic trocar was placed under direct visualization as well as a 12 mm left lower quadrant trocar under direct visualization. The appendix was inspected. It was distended and mildly inflamed. The cecum and ascending colon also appeared to be mildly indurated. The transverse colon and visualized sigmoid colon appeared normal. There may have been some degree of right-sided colitis present. This was also suspected on recent CAT scan. The mesoappendix was dissected. The base of the appendix was divided using a linear 45 mm intestinal stapler. The mesentery itself was divided using a LigaSure. The area was then irrigated. No further purulence or bleeding was seen. The appendix was brought out of the peritoneal cavity through the left lower quadrant trocar site with an Endo Catch bag. The fascia at the 12 mm site was closed using a prior Dejon 0 Vicryl stitch. The skin at all 3 sites was closed using 4-0 Monocryl sutures. Skin glue was then applied. DISPOSITION: Stable to recovery room
[2021-12-02] MEDS ORDERED: HYDROmorphone 0.5 MG/0.5 ML SYRINGE IVP ONE ×2 (19:25→19:53)
[2021-12-02 19:50] LABS: Glucose,Whole Blood 120 mg/dL (75-99)
[2021-12-03] MEDS: MORPHINE SULFATE 4 MG/ML SYRINGE IVP PRN ×5 (00:02→20:49)
[2021-12-03] MEDS: HEPARIN SODIUM,PORCINE/PF 5,000 UNIT/0.5 ML SYRINGE SQ SCH ×5 (00:02→16:15)
[2021-12-03] MEDS: metroNIDAZOLE-NS PMX 500 MG in SALINE 1 100ML.BAG IVPB SCH ×4 (01:06→23:40)
[2021-12-03] MEDS: SODIUM CHLORIDE 0.9% 1,000 ML IV SCH ×2 (04:09→11:19)
[2021-12-03] MEDS: AZTREONAM 1 GM in SODIUM CHLORIDE 0.9% 50 ML IVPB SCH ×3 (04:34→22:47)
[2021-12-03] MEDS: amLODIPine 5 MG TAB PO SCH (07:32)
[2021-12-03] MEDS: CITALOPRAM HYDROBROMIDE 20 MG TAB PO SCH (07:32)
[2021-12-03] MEDS: carvediloL 12.5 MG TAB PO SCH ×2 (07:32→20:46)
[2021-12-03] MEDS: FAMOTIDINE 20 MG TAB PO SCH (07:32)
[2021-12-03] MEDS: QUEtiapine 50 MG TAB PO SCH ×2 (07:34→20:51)
[2021-12-03] MEDS: levETIRAcetam 500 MG TAB PO SCH (07:34)
[2021-12-03 09:22] LABS: Basophils # (A) 0.02 X 10*3/uL (0.00-0.10); Basophils % (A) 0.3 %; Eosinophils # (A) 0.25 X 10*3/uL (0.04-0.35); Eosinophils % (A) 3.2 %; HCT 35.8 % (37.2-46.3); HGB 10.4 g/dL (12.0-15.0); Immature Grans, Automated 1.1 %; Lymphocytes # (A) 1.62 X 10*3/uL (0.90-5.00); Lymphocytes % (A) 20.5 %; MCH 26.5 pg (27.0-32.0); MCHC 29.1 g/dL (32.0-37.0); MCV 91.3 fL (80.0-97.0); Mean Platelet Volume 9.4 fL (9.5-12.2); Monocytes # (A) 0.62 X 10*3/uL (0.20-1.00); Monocytes % (A) 7.9 %; NRBC Per 100 WBC 0 /100 WBCS (0.0-0.0); Neutrophils # (A) 5.29 X 10*3/uL (1.80-7.70); Platelet Count 373 X 10*3/uL (140-440); RBC 3.92 X 10*6/uL (4.10-5.20); RDW 13.2 % (11.5-14.5); WBC 7.89 X 10*3/uL (4.50-10.00)
[2021-12-03 09:35] LABS: ALT 17 U/L (8-44); AST 13 U/L (13-35); African American GFR (CKD) 120.4 (60.0-200.0); Albumin 3.3 g/dL (3.8-4.9); Albumin/Globulin Ratio 1.38 (1.60-3.17); Alkaline Phosphatase 106 U/L (41-126); BUN/Creat Ratio 23.43 Ratio (12.00-20.00); Blood Urea Nitrogen 16.4 mg/dL (9.0-27.0); Calcium 8.6 mg/dL (8.7-10.3); Chloride 103 mmol/L (96-109); Globulin 2.4 g/dL (1.6-3.3); Glucose 108 mg/dL (70-110); Non-African American GFR(CKD) 103.9 (60.0-200.0); Potassium 5.4 mmol/L (3.5-5.5); Sodium 138 mmol/L (135-145); Total Bilirubin <0.15 mg/dL (0.30-1.20); Total Protein 5.7 g/dL (6.2-8.2)
[2021-12-03] MEDS ORDERED: HYDROcodone/APAP 5-325MG 1 EACH TAB PO PRN (10:06)
[2021-12-03] MEDS: oxyCODONE-APAP 7.5-325MG 1 EACH TAB PO PRN (11:19)
--- NOTE | 2021-12-03 13:50 | P.PN ---
Subjective Progress Note Date: 12/03/21 Patient is complaining of diffuse abdominal soreness. She did have a large bowel movement this morning. She states that she has not tried to eat anything yet. Objective - Vital Signs Vital signs: Vital Signs Temp 98.2 F 12/03/21 06:52 Pulse 78 12/03/21 06:52 Resp 18 12/03/21 08:00 BP 180/92 12/03/21 06:52 Pulse Ox 99 12/03/21 06:52 Intake & Output 12/02/21 12/03/21 12/03/21 18:59 06:59 18:59 Intake Total 450 Output Total 10 Balance 440 Weight 87.09 kg Intake: IV 450 Output: Estimated Blood Loss 10 Other: Voiding Method Bedpan Bedpan # Voids 4 - Exam General examination - Alert and Oriented 3 in NAD Heart - + S1S2 no murmurs Lungs - diminished breath sounds bilaterally Abdomen diffuse tenderness to palpate, positive bowel sounds Extremities - No edema [employer] - Moving all 4 extremities spontaneously Psych - Calm and cooperative - Labs CBC & Chem 7: 12/03/21 04:25 12/03/21 04:25 Labs: Abnormal Lab Results - Last 24 Hours (Table) 12/02/21 12/03/21 12/03/21 Range/Units 19:49 04:25 04:25 RBC 3.92 L (4.10-5.20) X 10*6/uL Hgb 10.4 L (12.0-15.0) g/dL Hct 35.8 L (37.2-46.3) % MCH 26.5 L (27.0-32.0) pg MCHC 29.1 L (32.0-37.0) g/dL MPV 9.4 L (9.5-12.2) fL Immature Gran # 0.09 H (0.00-0.04) X 10*3/uL Carbon Dioxide 29.0 H (20.0-27.5) mmol/L Anion Gap 6.00 L (10.00-18.00) mmol/L BUN/Creatinine Ratio 23.43 H (12.00-20.00) Ratio POC Glucose (mg/dL) 120 H (75-99) mg/dL Calcium 8.6 L (8.7-10.3) mg/dL Total Bilirubin <0.15 L (0.30-1.20) mg/dL Total Protein 5.7 L (6.2-8.2) g/dL Albumin 3.3 L (3.8-4.9) g/dL Albumin/Globulin Ratio 1.38 L (1.60-3.17) g/dL Microbiology - Last 24 Hours (Table) 12/02/21 04:30 Blood Culture - Preliminary Blood No Growth after 24 hours 12/02/21 04:15 Blood Culture - Preliminary Blood No Growth after 24 hours Assessment and Plan Assessment: Acute appendicitis status post appendectomy -Patient on regular diet -Awaiting for general surgery to clear patient for discharge -Patient encouraged to ambulate -Resume aztreonam and Flagyl until discharge -Follow blood cultures Acute mild anemia -Hemoglobin is stable -Patient has no signs of overt bleeding -Follow up outpatient with PCP Acute kidney injury secondary to dehydration -Resolved Asymptomatic bacteriuria -No need to treat. Regardless patient is on IV antibiotic as above Chronic conditions CHF: Compensated COPD: Compensated Chronic hypoxia: Patient stable on 2 L which is her home O2 History seizures: Resume home meds Full code Heparin subcu for DVT prophylaxis Anticipated patient be ready for discharge home in the next 24 hours if cleared by general surgery
--- NOTE | 2021-12-03 14:03 | P.PN ---
Subjective Progress Note Date: 12/03/21 CHIEF COMPLAINT: Appendicitis HISTORY OF PRESENT ILLNESS: Patient is currently sleeping. She did receive morphine this morning. Her pain is currently controlled. She reports having a bowel movement and flatus. Denies any nausea vomiting. She did not want to eat her breakfast this morning. She denies any nausea or vomiting. She's afebrile. WBC is 7.89. PHYSICAL EXAM: VITAL SIGNS: Reviewed. GENERAL: Well-developed in no acute distress. HEENT: No sclera icterus. Extraocular movements grossly intact. Moist buccal mucosa. Head is atraumatic, normocephalic. ABDOMEN: Soft. Nondistended. Incision sites clean dry and intact NEUROLOGIC: Alert and oriented. Cranial nerves II through XII grossly intact. ASSESSMENT: 1. Acute appendicitis status post laparoscopic appendectomy PLAN: -Continue regular diet -Encourage patient to increase oral intake -Encourage patient to ambulate -Resumed patient's home dose of Percocet -Anticipating discharge tomorrow when oral intake has increased -DVT prophylaxis subcu heparin Physician Kiln Stoker note has been reviewed by physician. Signing provider agrees with the documented findings, assessment, and plan of care. I have personally seen and examined the patient, reviewed the BOOTMAKER HAND /PAs history, exam and MDM and agree with the assessment and plan as written. Based on total visit time, I have performed more than 50% of the visit. As above: Patient still having pain although improved. No new complaints. Energy level seems poor. She has not been ambulating. Recommend increasing activity. Continue diet as tolerated. Possible discharge tomorrow. Objective - Vital Signs Vital signs: Vital Signs Temp 98.2 F 12/03/21 06:52 Pulse 78 12/03/21 06:52 Resp 18 12/03/21 08:00 BP 180/92 12/03/21 06:52 Pulse Ox 99 12/03/21 06:52 Intake & Output 12/02/21 12/03/21 12/03/21 18:59 06:59 18:59 Intake Total 450 Output Total 10 Balance 440 Weight 87.09 kg Intake: IV 450 Output: Estimated Blood Loss 10 Other: Voiding Method Bedpan Bedpan # Voids 4 - Labs CBC & Chem 7: 12/03/21 04:25 12/03/21 04:25 Labs: Abnormal Lab Results - Last 24 Hours (Table) 12/02/21 12/03/21 12/03/21 Range/Units 19:49 04:25 04:25 RBC 3.92 L (4.10-5.20) X 10*6/uL Hgb 10.4 L (12.0-15.0) g/dL Hct 35.8 L (37.2-46.3) % MCH 26.5 L (27.0-32.0) pg MCHC 29.1 L (32.0-37.0) g/dL MPV 9.4 L (9.5-12.2) fL Immature Gran # 0.09 H (0.00-0.04) X 10*3/uL Carbon Dioxide 29.0 H (20.0-27.5) mmol/L Anion Gap 6.00 L (10.00-18.00) mmol/L BUN/Creatinine Ratio 23.43 H (12.00-20.00) Ratio POC Glucose (mg/dL) 120 H (75-99) mg/dL Calcium 8.6 L (8.7-10.3) mg/dL Total Bilirubin <0.15 L (0.30-1.20) mg/dL Total Protein 5.7 L (6.2-8.2) g/dL Albumin 3.3 L (3.8-4.9) g/dL Albumin/Globulin Ratio 1.38 L (1.60-3.17) g/dL Microbiology - Last 24 Hours (Table) 12/02/21 04:30 Blood Culture - Preliminary Blood No Growth after 24 hours 12/02/21 04:15 Blood Culture - Preliminary Blood No Growth after 24 hours
--- NOTE | 2021-12-03 15:09 | CDI ---
Documentation Clarification Form Date: 12/03/2021 02:50:51 PM From: Tete Mckinley Admit Date: 12/02/2021 12:20:00 PM Patient Name: Yolie Yeboah Visit Number: [id number] Discharge Date: ATTENTION: The Clinical Documentation Specialists (CDI) and [facility] Coding Staff appreciate your assistance in clarifying documentation. Please respond to the clarification below the line at the bottom and electronically sign. The CDI & [facility] Coding staff will review the response and follow-up if needed. Please note: Queries are made part of the Legal Health Record. If you have any questions, please contact the author of this message via ITS. Dr. Nunu Saldaña MD Your patient has chronic hypoxia: Patient stable on 2L which is her home O2, 12/03, Internal Medicine PN. Based on this information and the findings below, is there an additional diagnosis that is clinically appropriate for this patient? History/Risk Factors: 46-year-old female presents to the ED with a two-day history of acute abdominal pain, right lower quadrant, nausea, diarrhea and dysuria. Medical history: Asthma, COPD, CHF, home oxygen use. 12/02, H&P. Tobacco use: Current every day smoker. Home oxygen: 2L Oxygen Clinical Indicators: Vital signs: 12/02 B/P 120/78; HR 76; Temp 97.6 F Oral; RR 18; SpO2 98% 2L nasal cannula Lung/Breathing assessment: 12/02, H&P Clear to auscultation, Clear to percussion, Normal respiratory effort. Treatment: Breathing tx: 12/02 to current Ventolin 2.5mg Inhalation PRN; Oxygen: 12/02 current 2L nasal cannula. Is there an additional diagnosis that is clinically appropriate for this patient? [ X ] Chronic Respiratory Failure [ ] Other Diagnosis, please specify [ ] Unable to determine (Template Last Revised: September 2020) MTDD
--- NOTE | 2021-12-03 15:22 | CDI ---
Documentation Clarification Form Date: 12/03/2021 03:10:58 PM From: Tete Mckinley RN CCDS Admit Date: 12/02/2021 12:20:00 PM Patient Name: Yolie Yeboah Visit Number: [id number] Discharge Date: ATTENTION: The Clinical Documentation Specialists (CDI) and [facility] Coding Staff appreciate your assistance in clarifying documentation. Please respond to the clarification below the line at the bottom and electronically sign. The CDI & [facility] Coding staff will review the response and follow-up if needed. Please note: Queries are made part of the Legal Health Record. If you have any questions, please contact the author of this message via ITS. Dr. Nunu Saldaña Your patient has the documented diagnosis of unspecified CHF 12/02, H&P. Additional information regarding the type, acuity of CHF is requested. History/Risk Factors: 46-year-old female presents to the ED with a two-day history of acute abdominal pain, right lower quadrant, nausea, diarrhea and dysuria. Medical history: HTN, CHF, home oxygen use. 12/02, H&P. Clinical Indicators: Home Medications: 12/02, H&P. Aldactone 25mg PO and Coreg 25mg PO BID. Vital signs: 12/02 B/P 120/78; HR 76; Temp 97.6 F Oral; RR 18; SpO2 98% 2L nasal cannula Echocardiogram Results: 03/27/21 EF greater than 55%. Treatment: 12/02 to current Coreg 25mg PO BID; In your professional opinion, can you please clarify the acuity and type of CHF if known? [X ] Chronic Diastolic Heart Failure (preserved EF) [ ] Heart failure ruled out [ ] Other, please specify [ ] Unable to determine (Template Last Revised: August 2020) MTDD
[2021-12-04] MEDS: metroNIDAZOLE-NS PMX 500 MG in SALINE 1 100ML.BAG IVPB SCH ×3 (02:02→17:28)
[2021-12-04] MEDS: HEPARIN SODIUM,PORCINE/PF 5,000 UNIT/0.5 ML SYRINGE SQ SCH ×4 (02:03→15:45)
[2021-12-04] MEDS: MORPHINE SULFATE 4 MG/ML SYRINGE IVP PRN ×2 (02:06→08:36)
[2021-12-04] MEDS: SODIUM CHLORIDE 0.9% 1,000 ML IV SCH ×2 (05:44→15:45)
[2021-12-04] MEDS: oxyCODONE-APAP 7.5-325MG 1 EACH TAB PO PRN ×2 (06:15→12:45)
[2021-12-04] MEDS: AZTREONAM 1 GM in SODIUM CHLORIDE 0.9% 50 ML IVPB SCH ×2 (06:15→13:12)
[2021-12-04 07:48] VITALS: RESP 17
[2021-12-04] MEDS: levETIRAcetam 500 MG TAB PO SCH (08:35)
[2021-12-04] MEDS: FAMOTIDINE 20 MG TAB PO SCH (08:35)
[2021-12-04] MEDS: amLODIPine 5 MG TAB PO SCH (08:36)
[2021-12-04] MEDS: CITALOPRAM HYDROBROMIDE 20 MG TAB PO SCH (08:36)
[2021-12-04] MEDS: QUEtiapine 50 MG TAB PO SCH (08:36)
[2021-12-04] MEDS: carvediloL 12.5 MG TAB PO SCH (08:36)
[2021-12-04] MEDS ORDERED: ONDANSETRON 4 MG/2 ML VIAL IVP PRN (09:49)
[2021-12-04] MEDS ORDERED: MORPHINE SULFATE 4 MG/ML SYRINGE IVP PRN (09:50)
--- NOTE | 2021-12-04 14:44 | P.PN ---
Subjective Progress Note Date: 12/04/21 CHIEF COMPLAINT: Appendicitis HISTORY OF PRESENT ILLNESS: Patient is complaining of abdominal pain. She does report pain now on the left lower abdomen. She did have nausea this morning. Her oral intake has been decreased. She does report having flatus and bowel movement. She has been up and ambulating with nurse in hallway but did not complete a full lap. Afebrile. no new labs for today PHYSICAL EXAM: VITAL SIGNS: Reviewed. GENERAL: Well-developed in no acute distress. HEENT: No sclera icterus. Extraocular movements grossly intact. Moist buccal mucosa. Head is atraumatic, normocephalic. ABDOMEN: Soft. Nondistended. tenderness at incision sites. Incision sites clean dry and intact NEUROLOGIC: Alert and oriented. Cranial nerves II through XII grossly intact. ASSESSMENT: 1. Acute appendicitis status post laparoscopic appendectomy PLAN: -Patient can be discharged from surgical standpoint if pain is controlled -Continue regular diet -Encourage patient to increase oral intake -Encourage patient to ambulate -Continue pain medication as needed. She is receiving her home dose of Percocet -DVT prophylaxis subcu heparin Physician Employee Benefits Coordinator note has been reviewed by physician. Signing provider agrees with the documented findings, assessment, and plan of care. I have personally seen and examined the patient, reviewed the SAIL REPAIR PERSON /PAs history, exam and MDM and agree with the assessment and plan as written. Based on total visit time, I have performed more than 50% of the visit. As above: Patient doing better today. Says her pain has improved since admission. Still having some discomfort. She is afebrile. Labs normal. Repeat x-rays normal. May discharge when pain is well-controlled. Objective - Vital Signs Vital signs: Vital Signs Temp 98.2 F 12/04/21 07:29 Pulse 85 12/04/21 07:29 Resp 17 12/04/21 07:29 BP 150/81 12/04/21 07:29 Pulse Ox 91 L 12/04/21 07:29 Intake & Output 12/03/21 12/04/21 12/04/21 18:59 06:59 18:59 Other: Voiding Method Bedpan Toilet # Voids 3 4 # Bowel Movements 1 - Labs CBC & Chem 7: 12/03/21 04:25 12/03/21 04:25 Labs: Microbiology - Last 24 Hours (Table) 12/02/21 04:30 Blood Culture - Preliminary Blood No Growth after 48 hours 12/02/21 04:15 Blood Culture - Preliminary Blood No Growth after 48 hours 12/03/21 13:00 Stool Culture - Preliminary Stool
[2021-12-04 15:25] VITALS: BP 94/67; PULSE 82; TEMP 99
--- NOTE | 2021-12-04 16:05 | P.DS ---
Providers Date of admission: 12/02/21 12:20 Expected date of discharge: 12/04/21 Attending physician: Emile Narayanan MD Consults: 12/02/21 00:29 Consult Physician Urgent Consulting Provider: Patrick Paige Consult Reason/Comments: enlarged appendix with no inflammatory changes Do you want consulting provider notified?: Yes Primary care physician: Kaleb Huston Hospital Course: Discharge Diagnosis: Acute appendicitis status post appendectomy Acute mild anemia: Stable Acute kidney injury: Resolved Asymptomatic bacteriuria Chronic diastolic heart failure COPD Chronic hypoxia on 3 L home O2 History of seizures Hospital Course: Patient is a 46-year-old female with a past medical history of acute on chronic diastolic heart failure, COPD on 2 L home O2, history of seizures who presents to the ED with pain in her right lower quadrant. Patient had a computed tomography scan that showed findings consistent with acute pancreatitis. The following day patient was seen by general surgery and had an appendectomy done. After the surgery patient reported that the right lower quadrant pain had improved. She was passing bowel movements. She was seen by surgery who deemed her stable for discharge. Patient instructed to follow with general surgery in one week. Patient seen and examined at bedside.[] Vital signs reviewed and stable. General: [non toxic], [no distress], [appears at stated age] Derm: [warm], [dry] Head: [atraumatic], [normocephalic], [symmetric] Eyes: [EOMI], [no lid lag], [anicteric sclera] Mouth: [no lip lesion], [mucus membranes moist] Cardiovascular: [S1S2 reg], [no murmur], [positive posterior tibial pulse bilateral], Lungs: [CTA bilateral], [no rhonchi, no rales] , [no accessory muscle use] Abdominal: [soft], [ diffuse tenderness to palpate as expected from surgery], [no guarding], [no appreciable organomegaly] Ext: [no gross muscle atrophy], [no edema], [no contractures] Neuro: [ CN II-XI grossly intact], [no focal neuro deficits] Psych: [Alert], [oriented], [appropriate affect] A total of [33] minutes of time were spent preparing this complex discharge summary . Patient Condition at Discharge: Fair Plan - Discharge Summary New Discharge Prescriptions: Continue Spironolactone [Aldactone] 25 mg PO DAILY QUEtiapine [SEROquel] 150 mg PO HS Citalopram Hydrobromide [CeleXA] 40 mg PO DAILY oxyCODONE-APAP 7.5-325MG [Percocet 7.5-325 mg] 1 tab PO TID PRN PRN Reason: Pain Dicyclomine [Bentyl] 10 mg PO QID PRN PRN Reason: Gi Upset levETIRAcetam [Keppra] 500 mg PO DAILY Carvedilol [Coreg] 25 mg PO BID diphenhydrAMINE [Benadryl] 50 mg PO TID QUEtiapine [SEROquel] 100 mg PO DAILY Ergocalciferol [Vitamin D2 (1250 Mcg = 79116 Iu)] 1,250 mcg PO MO amLODIPine [Norvasc] 5 mg PO DAILY 30 Days #30 tab Famotidine [Pepcid] 20 mg PO BID rOPINIRole HCL [Requip] 0.25 mg PO HS Albuterol Sulfate [Proventil Hfa] 2 puff INHALATION RT-Q4H PRN PRN Reason: Shortness Of Breath Magnesium Oxide [Magox 400] 400 mg PO DAILY 30 Days #30 tablet Discharge Medication List Spironolactone [Aldactone] 25 mg PO DAILY 02/05/17 [History] QUEtiapine [SEROquel] 150 mg PO HS 02/25/19 [History] Citalopram Hydrobromide [CeleXA] 40 mg PO DAILY 06/12/19 [History] oxyCODONE-APAP 7.5-325MG [Percocet 7.5-325 mg] 1 tab PO TID PRN 01/01/20 [History] Dicyclomine [Bentyl] 10 mg PO QID PRN 05/28/20 [History] levETIRAcetam [Keppra] 500 mg PO DAILY 02/24/21 [History] rOPINIRole HCL [Requip] 0.25 mg PO HS 02/24/21 [History] Carvedilol [Coreg] 25 mg PO BID 03/26/21 [History] Albuterol Sulfate [Proventil Hfa] 2 puff INHALATION RT-Q4H PRN 10/22/21 [History] Ergocalciferol [Vitamin D2 (1250 Mcg = 53983 Iu)] 1,250 mcg PO MO 10/22/21 [History] Magnesium Oxide [Magox 400] 400 mg PO DAILY 30 Days #30 tablet 10/22/21 [Rx] QUEtiapine [SEROquel] 100 mg PO DAILY 10/22/21 [History] amLODIPine [Norvasc] 5 mg PO DAILY 30 Days #30 tab 10/22/21 [Rx] diphenhydrAMINE [Benadryl] 50 mg PO TID 10/22/21 [History] Famotidine [Pepcid] 20 mg PO BID 12/01/21 [History] Follow up Appointment(s)/Referral(s): Kaleb Huston DO [Primary Care Provider] - 1-2 days Donn Rios MD [Medical Doctor] - 1 Week Discharge Disposition: HOME SELF-CARE
--- NOTE | 2021-12-04 17:27 | XR ---
EXAMINATION TYPE: XR abdomen 2V DATE OF EXAM: 12/04/2021 5:10 PM INDICATION: Patient age:Female; 46 years old; Reason for study: rule out free air or obstruction; COMPARISON: CT abdomen pelvis 12/02/2021. TECHNIQUE: One radiographic view of the abdomen was obtained. FINDINGS: The bowel gas pattern is nonspecific without dilated loops of small or large bowel. There i s no evidence for organomegaly or pneumoperitoneum. The osseous structures are intact. Pelvic phleb oliths are present. Fecal material and gas are demonstrated throughout the colon and rectum. Right upper quadrant cholecystectomy clips are present. IMPRESSION: 1. No radiographic evidence for pneumoperitoneum. 2. Nonspecific bowel gas pattern without radiographic evidence for acute process.
--- NOTE | 2021-12-09 10:51 | CDI ---
Documentation Clarification Form Date: 12/09/2021 09:07:47 AM From: Tete Mckinley RN CCDS Admit Date: 12/02/2021 12:20:00 PM Patient Name: Yolie Yeboah Visit Number: [id number] Discharge Date: 12/04/2021 06:33:00 PM ATTENTION: The Clinical Documentation Specialists (CDI) and [facility] Coding Staff appreciate your assistance in clarifying documentation. Please respond to the clarification below the line at the bottom and electronically sign. The CDI & [facility] Coding staff will review the response and follow-up if needed. Please note: Queries are made part of the Legal Health Record. If you have any questions, please contact the author of this message via ITS. Dr. Nunu Saldaña There is documentation of mild peritonitis, 12/02, H&P. Additional clarification is requested. History/Risk Factors: 46-year-old female presents to the ED with right lower quadrant abdominal pain with nausea and diarrhea. Medical History: HTN, RA, Pancreatic fibrosis and chronic abdominal pain. 12/02, H&P. Clinical Indicators: VSS: 12/01 B/P 104/75; HR 89; Temp 98.0 Oral F; RR 18; SpO2 98% ra LABS: 12/01 Wbc 10.8, Neutrophils 6.0, Lactic acid 0.6 CT ABDPEL: 12/02 The appendix is large and measures 12mm in diameter but no evidence of inflammation. Appendix contains air and fecal material. However, the appendix is increased from 8mm to 12mm compared to old exam. Abdominal Assessment H&P, 12/02: Abdominal: Soft tenderness in the lower abd, mainly RLQ with rebound tenderness and some signs of mild peritonitis, voluntary guarding, no rigidity. Treatment: 12/02 12/04 Aztreonam 1gm IVPB Q8HR; 12/02 12/04 Metronidazole 500mg IVPB Q8HR; 12/01 0.9NS 1L bolus x 2; 12/01 Morphine 4mg IV x 1; 12/02 12/04 Morphine 4mg IVP Q4HR PRN Pain; 12/04 Morphine 5mg IVP Q6HR PRN Severe Pain. Can you please clarify peritonitis ? [ X ] Peritonitis POA [ ] Peritonitis Ruled Out [ ] Other, please specify [ ] Unable to determine (Template Last Revised: September 2020) MTDD
== END 2021-12-04 18:33 | disposition home or self-care (01) | DRG 339 ==
LOC: EC 16:48 → 6NMEDSUR 12-02 01:08 → OBSVTOIN 12-02 12:20 → 4SSUR 12-02 12:21
PROVIDERS: ADMIT Internal Medicine; ATTEND Internal Medicine
PROC: 0DTJ4ZZ Resection of Appendix, Percutaneous Endoscopic Approach (ICD-10-PCS; principal; 2021-12-02 08:30)
DX: K35.33 Acute appendicitis with perforation, localized peritonitis, and gangrene, with abscess (principal); I50.32 Chronic diastolic (congestive) heart failure; N17.9 Acute kidney failure, unspecified; J96.11 Chronic respiratory failure with hypoxia; K58.9 Irritable bowel syndrome, unspecified; I11.0 Hypertensive heart disease with heart failure; D64.9 Anemia, unspecified; E86.0 Dehydration; F17.210 Nicotine dependence, cigarettes, uncomplicated; F31.9 Bipolar disorder, unspecified; F41.9 Anxiety disorder, unspecified; F90.9 Attention-deficit hyperactivity disorder, unspecified type; G40.909 Epilepsy, unspecified, not intractable, without status epilepticus; J44.9 Chronic obstructive pulmonary disease, unspecified; M06.9 Rheumatoid arthritis, unspecified; M79.7 Fibromyalgia; Z28.310 Unvaccinated for COVID-19; Z99.81 Dependence on supplemental oxygen; Z53.9 Procedure and treatment not carried out, unspecified reason; G43.909 Migraine, unspecified, not intractable, without status migrainosus; Z90.49 Acquired absence of other specified parts of digestive tract; Z86.14 Personal history of Methicillin resistant Staphylococcus aureus infection; R82.71 Bacteriuria; G89.29 Other chronic pain; M54.9 Dorsalgia, unspecified; Z98.51 Tubal ligation status; Z90.710 Acquired absence of both cervix and uterus; Z87.442 Personal history of urinary calculi; Z86.73 Personal history of transient ischemic attack (TIA), and cerebral infarction without residual deficits; Z79.899 Other long term (current) drug therapy; Z88.5 Allergy status to narcotic agent; Z88.0 Allergy status to penicillin; Z88.2 Allergy status to sulfonamides; Z88.6 Allergy status to analgesic agent; Z88.1 Allergy status to other antibiotic agents; Z91.041 Radiographic dye allergy status
CPT/HCPCS: 36415; 74019; 74176; 76856; 80053; 81001; 82150; 83605; 83690; 83735; 84484; 85025; 85610; 85730; 87040; 87045; 87046; 88304; 93005; 93975; 96361; 96374; 96375; 99285

== ENCOUNTER 2021-12-13 14:42 | Emergency (ER) | payer MEDICARE ==
[2021-12-13 15:21] VITALS: TEMP 98.4
--- NOTE | 2021-12-13 16:24 | ED ---
General Adult HPI - General Chief complaint: Back Pain/Injury Stated complaint: Post Surg/Abd pain Time Seen by Provider: 12/13/21 16:17 Source: patient, family Mode of arrival: ambulatory Limitations: no limitations - History of Present Illness Initial comments: Patient is a 46-year-old female who presents to the ER today for evaluation of bilateral flank/low back pain and difficulty with urination. Patient reports the symptoms started after her appendectomy last week. She does have a history of frequent UTIs. Patient reports that she currently has pain in her low back/flanks. She states that whenever she tries urinate she feels like she has to strain to urinate and this causes worsening discomfort. Patient reports she's had some nausea but no vomiting. No fevers. No change in bowel habits. - Related Data Home Medications Medication Instructions Recorded Confirmed Spironolactone [Aldactone] 25 mg PO DAILY 02/05/17 12/01/21 QUEtiapine [SEROquel] 150 mg PO HS 02/25/19 12/01/21 Citalopram Hydrobromide [CeleXA] 40 mg PO DAILY 06/12/19 12/01/21 oxyCODONE-APAP 7.5-325MG [Percocet 1 tab PO TID PRN 01/01/20 12/01/21 7.5-325 mg] Dicyclomine [Bentyl] 10 mg PO QID PRN 05/28/20 12/01/21 levETIRAcetam [Keppra] 500 mg PO DAILY 02/24/21 12/01/21 rOPINIRole HCL [Requip] 0.25 mg PO HS 02/24/21 12/01/21 Carvedilol [Coreg] 25 mg PO BID 03/26/21 12/01/21 Albuterol Sulfate [Proventil Hfa] 2 puff INHALATION RT-Q4H PRN 10/22/21 12/01/21 Ergocalciferol [Vitamin D2 (1250 1,250 mcg PO MO 10/22/21 12/01/21 Mcg = 95805 Iu)] QUEtiapine [SEROquel] 100 mg PO DAILY 10/22/21 12/01/21 diphenhydrAMINE [Benadryl] 50 mg PO TID 04/07/22 05/17/22 Famotidine [Pepcid] 20 mg PO BID 12/01/21 12/01/21 Previous Rx's Medication Instructions Recorded Magnesium Oxide [Magox 400] 400 mg PO DAILY 30 Days #30 tablet 10/22/21 amLODIPine [Norvasc] 5 mg PO DAILY 30 Days #30 tab 10/22/21 Orphenadrine [Norflex] 100 mg PO Q12H #14 tab 12/13/21 Allergies Allergy/AdvReac Type Severity Reaction Status Date / Time adhesive Allergy Rash/Hives Verified 12/13/21 15:23 amoxicillin Allergy Anaphylaxis Verified 12/13/21 15:23 azithromycin [From Zithromax] Allergy Anaphylaxis Verified 12/13/21 15:23 cephalexin monohydrate Allergy Anaphylaxis Verified 12/13/21 15:23 [From Keflex] ciprofloxacin Allergy Anaphylaxis Verified 12/13/21 15:23 clindamycin Allergy Anaphylaxis Verified 12/13/21 15:23 Iodinated Contrast Media Allergy Anaphylaxis Verified 12/13/21 15:23 [Iodinated Contrast- Oral and IV Dye] levofloxacin [From Levaquin] Allergy Rash/Hives Verified 12/13/21 15:23 naproxen Allergy Anaphylaxis Verified 12/13/21 15:23 NSAIDS (Non-Steroidal Allergy Rash/Hives Verified 12/13/21 15:23 Anti-Inflamma shellfish derived Allergy Anaphylaxis Verified 12/13/21 15:23 Sulfa (Sulfonamide Allergy Anaphylaxis Verified 12/13/21 15:23 Antibiotics) sulfamethoxazole Allergy Anaphylaxis Verified 12/13/21 15:23 [From Bactrim] tramadol Allergy Unknown Verified 12/13/21 15:23 trimethoprim [From Bactrim] Allergy Anaphylaxis Verified 12/13/21 15:23 Review of Systems ROS Statement: Those systems with pertinent positive or pertinent negative responses have been documented in the HPI. ROS Other: All systems not noted in ROS Statement are negative. 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 IBS, cellulitis of the chin, History of Any Multi-Drug Resistant Organisms: MRSA Date of last positivie culture/infection: 07/2016 MDRO Source:: chin Past Surgical History: Appendectomy, Section, Cholecystectomy, Hysterectomy, Tubal Ligation Additional Past Surgical History / Comment(s): oral surgery . Pancreas biopsy May 2015. Past Anesthesia/Blood Transfusion Reactions: No Reported Reaction Past Psychological History: ADD/ADHD, Anxiety, Bipolar, Depression Smoking Status: Current every day smoker Past Alcohol Use History: None Reported Past Drug Use History: Marijuana - Past Family History Father History Unknown: Yes Family Medical History: No Reported History Additional Family Medical History / Comment(s): ADOPTED General Exam Limitations: no limitations Course Vital Signs 12/13/21 12/13/21 12/13/21 15:15 17:13 19:00 Temperature 98.4 F Pulse Rate 88 88 93 Respiratory 20 18 18 Rate Blood Pressure 148/84 162/105 186/101 O2 Sat by Pulse 94 L 95 95 Oximetry Medical Decision Making - Medical Decision Making The patient was seen and evaluated, patient with back pain status post appe ndectomy. No fevers no Sirs criteria. Labs and imaging were obtained. CT with no acute findings no evidence of an abscess or inflammatory process. I suspect the patient's discomfort is muscular skeletal though she does report some difficulty in urinating. Patient status post hysterectomy does not both urologist and has a history of frequent UTIs. No evidence of UTI today. I did recommend the patient follow with a euro insurance salesperson for further evaluation and possible bladder prolapse versus other etiology. Patient will be discharged home with Norflex for back spasm advised to call primary care. - Lab Data Result diagrams: 12/13/21 17:09 12/13/21 17:09 Lab Results 12/13/21 12/13/21 12/13/21 Range/Units 17:09 17:09 17:09 WBC 11.9 H (3.8-10.6) k/uL RBC 4.89 (3.80-5.40) m/uL Hgb 12.9 (11.4-16.0) gm/dL Hct 43.2 (34.0-46.0) % MCV 88.3 (80.0-100.0) fL MCH 26.4 (25.0-35.0) pg MCHC 29.8 L (31.0-37.0) g/dL RDW 14.0 (11.5-15.5) % Plt Count 506 H (150-450) k/uL MPV 6.8 Neutrophils % 69 % Lymphocytes % 22 % Monocytes % 5 % Eosinophils % 2 % Basophils % 1 % Neutrophils # 8.2 H (1.3-7.7) k/uL Lymphocytes # 2.6 (1.0-4.8) k/uL Monocytes # 0.6 (0-1.0) k/uL Eosinophils # 0.2 (0-0.7) k/uL Basophils # 0.1 (0-0.2) k/uL Sodium 140 (137-145) mmol/L Potassium 4.1 (3.5-5.1) mmol/L Chloride 99 (98-107) mmol/L Carbon Dioxide 33 H (22-30) mmol/L Anion Gap 8 mmol/L BUN 14 (7-17) mg/dL Creatinine 0.59 (0.52-1.04) mg/dL Est GFR (CKD-EPI)AfAm >90 (>60 ml/min/1.73 sqM) Est GFR (CKD-EPI)NonAf >90 (>60 ml/min/1.73 sqM) Glucose 104 H (74-99) mg/dL Calcium 9.2 (8.4-10.2) mg/dL Total Bilirubin 0.3 (0.2-1.3) mg/dL AST 23 (14-36) U/L ALT 18 (4-34) U/L Alkaline Phosphatase 91 (38-126) U/L Total Protein 7.3 (6.3-8.2) g/dL Albumin 4.2 (3.5-5.0) g/dL Urine Color Yellow Urine Appearance Clear (Clear) Urine pH 7.5 (5.0-8.0) Ur Specific [place] 1.028 (1.001-1.035) Urine Protein 1+ H (Negative) Urine Glucose (UA) Negative (Negative) Urine Ketones Trace H (Negative) Urine Blood Trace H (Negative) Urine Nitrite Negative (Negative) Urine Bilirubin Negative (Negative) Urine Urobilinogen 2.0 (<2.0) mg/dL Ur Leukocyte Esterase Negative (Negative) Urine RBC 7 H (0-5) /hpf Urine WBC 3 (0-5) /hpf Ur Squamous Epith Cells 4 (0-4) /hpf Hyaline Casts 1 (0-2) /lpf Urine Mucus Moderate H (None) /hpf Disposition Clinical Impression: Back pain Disposition: HOME SELF-CARE Condition: Stable Instructions (If sedation given, give patient instructions): Acute Low Back Pain (ED) Is patient prescribed a controlled substance at d/c from ED?: No Referrals: Kaleb Huston DO [Primary Care Provider] - 1-2 days
[2021-12-13 17:18] LABS: Basophils # (A) 0.1 k/uL (0-0.2); Basophils % (A) 1 %; Eosinophils # (A) 0.2 k/uL (0-0.7); Eosinophils % (A) 2 %; HCT 43.2 % (34.0-46.0); HGB 12.9 gm/dL (11.4-16.0); Lymphocytes # (A) 2.6 k/uL (1.0-4.8); Lymphocytes % (A) 22 %; MCH 26.4 pg (25.0-35.0); MCHC 29.8 g/dL (31.0-37.0); MCV 88.3 fL (80.0-100.0); Mean Platelet Volume 6.8; Monocytes # (A) 0.6 k/uL (0-1.0); Monocytes % (A) 5 %; Neutrophils # (A) 8.2 k/uL (1.3-7.7); Neutrophils % (A) 69 %; Platelet Count 506 k/uL (150-450); RBC 4.89 m/uL (3.80-5.40); WBC 11.9 k/uL (3.8-10.6)
[2021-12-13 17:21] LABS: Appearance,Urine Clear (Clear); Bilirubin,Urine Negative (Negative); Blood,Urine Trace (Negative); Color,Urine Yellow; Glucose,Urine (UA) Negative (Negative); Hyaline Casts,Urine 1 /lpf (0-2); Ketones,Urine Trace (Negative); Leukocyte Esterase,Urine Negative (Negative); Mucus,Urine Moderate /hpf; Nitrite,Urine Negative (Negative); PH, Urine 7.5 (5.0-8.0); Protein,Urine 1+ (Negative); RBC,Urine 7 /hpf (0-5); Specific Gravity,Urine 1.028 (1.001-1.035); Squamous Epithelial Cell,Urine 4 /hpf (0-4); WBC,Urine 3 /hpf (0-5)
[2021-12-13 17:35] LABS: ALT 18 U/L (4-34); AST 23 U/L (14-36); African American GFR (CKD) >90 (>60 ml/min/1.73 sqM); Albumin 4.2 g/dL (3.5-5.0); Alkaline Phosphatase 91 U/L (38-126); Anion Gap 8 mmol/L; Blood Urea Nitrogen 14 mg/dL (7-17); Calcium 9.2 mg/dL (8.4-10.2); Carbon Dioxide 33 mmol/L (22-30); Chloride 99 mmol/L (98-107); Glucose 104 mg/dL (74-99); Non-African American GFR(CKD) >90 (>60 ml/min/1.73 sqM); Potassium 4.1 mmol/L (3.5-5.1); Sodium 140 mmol/L (137-145); Total Bilirubin 0.3 mg/dL (0.2-1.3); Total Protein 7.3 g/dL (6.3-8.2)
[2021-12-13] MEDS ORDERED: diphenhydrAMINE 50 MG/ML 1 ML VIAL IVP STA (17:54)
[2021-12-13] MEDS ORDERED: FAMOTIDINE 20 MG/2 ML VIAL IV STA (17:54)
[2021-12-13] MEDS ORDERED: methylPREDNISolone SOD SUCCI 125 MG/2 ML VIAL IV STA (17:54)
[2021-12-13] MEDS ORDERED: MORPHINE SULFATE 4 MG/ML SYRINGE IVP STA (18:07)
--- NOTE | 2021-12-13 19:12 | CT ---
EXAMINATION TYPE: CT abdomen pelvis w con DATE OF EXAM: 12/13/2021 COMPARISON: 12/01/2021 HISTORY: h/o recent appy removal, back pain since CT DLP: 1682.9 mGycm Automated exposure control for dose reduction was used. CONTRAST: Performed with IV Contrast, patient injected with 100 mL of Isovue 300. Images obtained from the diaphragm to the floor the pelvis with no contrast. The lung bases are clear of consolidation. No pleural effusion. No pericardial effusion. Heart size i s normal. Liver spleen and stomach pancreas appear intact. The bile ducts are not dilated. There are clips from cholecystectomy. There is no adrenal mass. Kidneys show normal size and contour. There is normal contrast opacificatio n of the kidneys. No hydronephrosis. Delayed images show normal renal excretion. There is no retroper itoneal adenopathy. Bladder distends smoothly. There is no inguinal hernia there is no free fluid in the pelvis. There is no mesenteric edema. No ascites or free air. No bowel obstruction. There are clips apparentl y from appendectomy. The lumbar vertebrae have normal spacing and alignment. Posterior elements are intact. No compression fracture. There is hysterectomy. No pelvic mass. The bony pelvis is intact. The hip joints are intac t. Sacroiliac joints appear normal. IMPRESSION: Negative CT scan of the abdomen and pelvis. There is clearing of the atelectasis at the lung bases co mpared to old exam. There is appendectomy compared to old exam.
[2021-12-13] MEDS ORDERED: ORPHENADRINE 30 MG/ML 2 ML VIAL IM STA (20:16)
[2021-12-13 20:51] VITALS: BP 169/86; PULSE 78; RESP 16
== END 2021-12-13 20:50 | disposition home or self-care (01) ==
LOC: EC 14:42
DX: M54.50 Low back pain, unspecified (principal); R10.9 Unspecified abdominal pain; J44.9 Chronic obstructive pulmonary disease, unspecified; F17.200 Nicotine dependence, unspecified, uncomplicated; M79.7 Fibromyalgia; I11.0 Hypertensive heart disease with heart failure; I50.9 Heart failure, unspecified; Z87.440 Personal history of urinary (tract) infections; Z87.442 Personal history of urinary calculi; Z88.1 Allergy status to other antibiotic agents; Z88.2 Allergy status to sulfonamides; Z88.5 Allergy status to narcotic agent; Z88.6 Allergy status to analgesic agent; Z88.8 Allergy status to other drugs, medicaments and biological substances; Z86.73 Personal history of transient ischemic attack (TIA), and cerebral infarction without residual deficits; Z90.49 Acquired absence of other specified parts of digestive tract; Z91.013 Allergy to seafood; Z91.09 Other allergy status, other than to drugs and biological substances; Z88.0 Allergy status to penicillin; Z91.041 Radiographic dye allergy status; Z79.899 Other long term (current) drug therapy
CPT/HCPCS: 36415; 80053; 85025; 81001; 74177; 99284; 96374; 96375; 96372; J2270; J1200; J2360; J2930; Q9967

== ENCOUNTER 2022-02-09 13:07 | Emergency (ER) | payer MEDICARE ==
[2022-02-09 14:43] LABS: Appearance,Urine Cloudy (Clear); Bilirubin,Urine Negative (Negative); Blood,Urine Small (Negative); Color,Urine Yellow; Glucose,Urine (UA) Negative (Negative); Ketones,Urine 2+ (Negative); Leukocyte Esterase,Urine Trace (Negative); Mucus,Urine Few /hpf; Nitrite,Urine Negative (Negative); Protein,Urine 1+ (Negative); RBC,Urine 7 /hpf (0-5); Specific Gravity,Urine 1.022 (1.001-1.035); Squamous Epithelial Cell,Urine 9 /hpf (0-4); WBC,Urine 2 /hpf (0-5)
[2022-02-09] MEDS ORDERED: PANTOPRAZOLE 40 MG/10 ML VIAL IVP STA (17:31)
[2022-02-09] MEDS ORDERED: ONDANSETRON 4 MG/2 ML VIAL IVP STA (17:31)
[2022-02-09] MEDS ORDERED: MORPHINE SULFATE 4 MG/ML SYRINGE IV STA (17:31)
[2022-02-09] MEDS ORDERED: SODIUM CHLORIDE 0.9% 500 ML 500 ML IV STA (17:31)
[2022-02-09] MEDS ORDERED: diphenhydrAMINE 50 MG/ML 1 ML VIAL IVP STA ×2 (17:31→20:38)
[2022-02-09 18:24] LABS: Basophils # (A) 0.1 k/uL (0-0.2); Basophils % (A) 1 %; Eosinophils # (A) 0.2 k/uL (0-0.7); Eosinophils % (A) 2 %; HCT 46.2 % (34.0-46.0); HGB 14.6 gm/dL (11.4-16.0); Lymphocytes # (A) 2.2 k/uL (1.0-4.8); Lymphocytes % (A) 17 %; MCH 27.4 pg (25.0-35.0); MCHC 31.7 g/dL (31.0-37.0); MCV 86.6 fL (80.0-100.0); Mean Platelet Volume 7.2; Monocytes # (A) 0.6 k/uL (0-1.0); Monocytes % (A) 5 %; Neutrophils # (A) 9.4 k/uL (1.3-7.7); Neutrophils % (A) 75 %; Platelet Count 394 k/uL (150-450); RBC 5.34 m/uL (3.80-5.40); RDW 13.3 % (11.5-15.5); WBC 12.6 k/uL (3.8-10.6)
[2022-02-09 18:42] LABS: INR 1.1 (<1.2); Partial Thromboplastin Time 24.2 sec (22.0-30.0); Prothrombin Time 11.7 sec (9.0-12.0)
--- NOTE | 2022-02-09 18:48 | XR ---
EXAMINATION TYPE: XR KUB DATE OF EXAM: 02/09/2022 6:38 PM INDICATION: Patient age:Female; 47 years old; Reason for study: abdominal pain; COMPARISON: None. TECHNIQUE: One radiographic view of the abdomen was obtained. FINDINGS: Right upper quadrant cholecystectomy clips. The bowel gas pattern is nonspecific without di lated loops of small or large bowel. There is no evidence for organomegaly or pneumoperitoneum. The osseous structures are intact. No abnormal calcifications are present. Fecal material and gas are de monstrated throughout the colon and rectum. IMPRESSION: Nonspecific bowel gas pattern without radiographic evidence for acute process.
[2022-02-09 19:24] LABS: Lipase 59 U/L (23-300)
[2022-02-09 19:37] LABS: ALT 12 U/L (4-34); AST 19 U/L (14-36); African American GFR (CKD) >90 (>60 ml/min/1.73 sqM); Albumin 4.4 g/dL (3.5-5.0); Alkaline Phosphatase 123 U/L (38-126); Amylase 41 U/L (30-110); Anion Gap 11 mmol/L; Blood Urea Nitrogen 15 mg/dL (7-17); Calcium 9.4 mg/dL (8.4-10.2); Carbon Dioxide 29 mmol/L (22-30); Chloride 100 mmol/L (98-107); Glucose 109 mg/dL (74-99); Non-African American GFR(CKD) >90 (>60 ml/min/1.73 sqM); Potassium 3.8 mmol/L (3.5-5.1); Sodium 140 mmol/L (137-145); Total Bilirubin 0.4 mg/dL (0.2-1.3); Total Protein 7.5 g/dL (6.3-8.2)
[2022-02-09] MEDS ORDERED: MORPHINE SULFATE 4 MG/ML SYRINGE IVP STA ×2 (19:42→21:34)
--- NOTE | 2022-02-09 20:18 | US ---
EXAMINATION TYPE: US renals and bladder DATE OF EXAM: 02/09/2022 COMPARISON: CT 2021, US 2020 CLINICAL HISTORY: eval for hydronephrosis, bilateral flank pain. EXAM MEASUREMENTS: Right Kidney: 9.4 x 4.8 x 4.3 cm Left Kidney: 9.7 x 4.9 x 4.9 cm Right Kidney: No hydronephrosis or masses seen Left Kidney: limited visualization, no hydronephrosis or masses seen Bladder: not fully distended There is no evidence for hydronephrosis at this point in time. No nephrolithiasis is seen. No petrona s are identified. The urinary bladder is anechoic. Bilateral ureteral jets are seen. IMPRESSION: No obstructive uropathy.
[2022-02-09 20:21] LABS: HCG,Qualitative Serum Not Detected
[2022-02-09] MEDS ORDERED: methylPREDNISolone SOD SUCCI 125 MG/2 ML VIAL IV STA (20:38)
[2022-02-09] MEDS ORDERED: FAMOTIDINE 20 MG/2 ML VIAL IV STA (20:38)
[2022-02-09 21:46] VITALS: BP 166/91; PULSE 77; RESP 18; TEMP 97.6
--- NOTE | 2022-02-09 22:01 | CT ---
EXAMINATION TYPE: CT abdomen pelvis w con CT DLP: 1475.5 mGycm, Automated exposure control for dose reduction was used. DATE OF EXAM: 02/09/2022 9:33 PM COMPARISON: 12/13/2021 CT abdomen pelvis. CLINICAL INDICATION:Female, 47 years old with history of LLQ abd pain; LLQ pain, hx renal stones pass ing and diverticulitis TECHNIQUE: Axial CT of the abdomen and pelvis. Sagittal and coronal reformats were created on a [employer] workstation. Contrast used:100 mL of Isovue 300 with IV Contrast, Oral contrast used: without Oral Contrast FINDINGS: LOWER CHEST: Unremarkable ABDOMEN LIVER: Diffusely hypoattenuating parenchyma. GALLBLADDER AND BILE DUCTS: Gallbladder is surgically absent with extra hepatic biliary dilatation li renetta physiologic and a postcholecystectomy change. No evidence of choledocholithiasis. PANCREAS: Unremarkable. SPLEEN: Unremarkable. ADRENAL GLANDS: Unremarkable. KIDNEYS AND URETERS: No evidence of hydronephrosis or renal calculus. The ureters are unremarkable. PELVIS BLADDER: Unremarkable REPRODUCTIVE: Unremarkable. ABDOMEN & PELVIS STOMACH AND BOWEL: No evidence of bowel obstruction. Appendix isn't surgically removed. PERITONEUM: No evidence of pneumoperitoneum or free fluid. VASCULATURE: No evidence of aortic aneurysm. MUSCULOSKELETAL: No acute osseous abnormalities LYMPH NODES: No gross evidence for lymphadenopathy. SOFT TISSUE/ABDOMINAL WALL: Scattered calcified granulomas are seen within the soft tissues on the ri ght buttock. IMPRESSION: 1. No evidence for acute abdominal process. No evidence for diverticulitis or urothelial calculus. 2. Hepatic steatosis.
--- NOTE | 2022-02-09 22:22 | ED ---
General Adult HPI - General Chief complaint: Back Pain/Injury Stated complaint: Lower back pain Time Seen by Provider: 02/09/22 17:11 Source: patient, RN notes reviewed, old records reviewed Mode of arrival: ambulatory - History of Present Illness Initial comments: Patient is a 47-year-old female with past medical history remarkable for asthma, COPD on home oxygen, fibromyalgia, hypertension, rheumatoid arthritis, seizures, prior kidney stones who presents emergency Department complaining of bilateral lower quadrant abdominal pain. She may have passed a kidney stone yesterday. Has continued to have bilateral pain. No one-sided is worse than the other. Endorses nausea but no vomiting. Denies any change in stooling. Denies any chest pain, shortness breath. Denies any fevers. Distally she may have seen some blood in her urine but denies any dysuria or pyuria. Has no other acute complaints at this time. Presents for further evaluation. - Related Data Home Medications Medication Instructions Recorded Confirmed Spironolactone [Aldactone] 25 mg PO DAILY 02/05/17 12/01/21 QUEtiapine [SEROquel] 150 mg PO HS 02/25/19 12/01/21 Citalopram Hydrobromide [CeleXA] 40 mg PO DAILY 06/12/19 12/01/21 oxyCODONE-APAP 7.5-325MG [Percocet 1 tab PO TID PRN 01/01/20 12/01/21 7.5-325 mg] Dicyclomine [Bentyl] 10 mg PO QID PRN 05/28/20 12/01/21 levETIRAcetam [Keppra] 500 mg PO DAILY 02/24/21 12/01/21 rOPINIRole HCL [Requip] 0.25 mg PO HS 02/24/21 12/01/21 carvediloL [Coreg] 25 mg PO BID 03/26/21 12/01/21 Albuterol Sulfate [Proventil Hfa] 2 puff INHALATION RT-Q4H PRN 10/22/21 12/01/21 Ergocalciferol [Vitamin D2 (1250 1,250 mcg PO MO 10/22/21 12/01/21 Mcg = 96380 Iu)] QUEtiapine [SEROquel] 100 mg PO DAILY 10/22/21 12/01/21 diphenhydrAMINE [Benadryl] 50 mg PO TID 10/22/21 12/01/21 Famotidine [Pepcid] 20 mg PO BID 12/01/21 12/01/21 Previous Rx's Medication Instructions Recorded Magnesium Oxide [Magox 400] 400 mg PO DAILY 30 Days #30 tablet 10/22/21 amLODIPine [Norvasc] 5 mg PO DAILY 30 Days #30 tab 10/22/21 Orphenadrine [Norflex] 100 mg PO Q12H #14 tab 12/13/21 Allergies Allergy/AdvReac Type Severity Reaction Status Date / Time adhesive Allergy Rash/Hives Verified 02/09/22 14:08 amoxicillin Allergy Anaphylaxis Verified 02/09/22 14:08 azithromycin [From Zithromax] Allergy Anaphylaxis Verified 02/09/22 14:08 cephalexin monohydrate Allergy Anaphylaxis Verified 02/09/22 14:08 [From Keflex] ciprofloxacin Allergy Anaphylaxis Verified 02/09/22 14:08 clindamycin Allergy Anaphylaxis Verified 02/09/22 14:08 Iodinated Contrast Media Allergy Anaphylaxis Verified 02/09/22 14:08 [Iodinated Contrast- Oral and IV Dye] levofloxacin [From Levaquin] Allergy Rash/Hives Verified 02/09/22 14:08 naproxen Allergy Anaphylaxis Verified 02/09/22 14:08 NSAIDS (Non-Steroidal Allergy Rash/Hives Verified 02/09/22 14:08 Anti-Inflamma shellfish derived Allergy Anaphylaxis Verified 02/09/22 14:08 Sulfa (Sulfonamide Allergy Anaphylaxis Verified 02/09/22 14:08 Antibiotics) sulfamethoxazole Allergy Anaphylaxis Verified 02/09/22 14:08 [From Bactrim] tramadol Allergy Unknown Verified 02/09/22 14:08 trimethoprim [From Bactrim] Allergy Anaphylaxis Verified 02/09/22 14:08 Review of Systems ROS Statement: Those systems with pertinent positive or pertinent negative responses have been documented in the HPI. Review of Systems: CONST: Denies fever EYES: Denies blurry vision ENT: Denies nasal congestion C/V: Denies Chest pain RESP: Denies shortness of breath GI: Endorses abdominal pain : Denies dysuria SKIN: Denies rash. MSK: Denies joint pain. NEURO: Denies headache ROS Other: All systems not noted in ROS Statement are negative. 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 IBS, cellulitis of the chin, History of Any Multi-Drug Resistant Organisms: MRSA Date of last positivie culture/infection: 07/2016 MDRO Source:: chin Past Surgical History: Appendectomy, Section, Cholecystectomy, Hysterectomy, Tubal Ligation Additional Past Surgical History / Comment(s): oral surgery . Pancreas biopsy May 2015. Past Anesthesia/Blood Transfusion Reactions: No Reported Reaction Past Psychological History: ADD/ADHD, Anxiety, Bipolar, Depression Smoking Status: Current every day smoker Past Alcohol Use History: None Reported Past Drug Use History: Marijuana - Past Family History Father History Unknown: Yes Family Medical History: No Reported History Additional Family Medical History / Comment(s): ADOPTED General Exam - General Exam Comments Initial Comments: General: Appears in mild to moderate distress secondary to abdominal pain. HEAD: Normal with no signs of head trauma. EYES: PERRLA, EOMI, conjunctiva normal, no discharge. ENT: Hearing grossly intact, normal oropharynx. RESPIRATORY: Clear breath sounds bilaterally. No wheezes, rales, or rhonchi. C/V: Regular rate and rhythm. S1 and S2 auscultated, no edema, peripheral pulses 2+ and intact throughout ABD: Soft, nondistended. Tenderness to palpation bilateral lower quadrants with some radiation to the flanks. No CVA tenderness to percussion. No guarding. No peritoneal signs. No rebound tenderness. EXT: Normal range of motion, no obvious deformity SKIN: No rashes or lesions observed on exposed skin. NEURO: Alert and oriented 4. Course Vital Signs 02/09/22 02/09/22 02/09/22 14:02 15:03 21:30 Temperature 98.2 F 97.6 F Pulse Rate 78 65 77 Respiratory 18 16 18 Rate Blood Pressure 167/115 161/90 166/91 O2 Sat by Pulse 96 96 100 Oximetry Medical Decision Making - Medical Decision Making Some patient's presentation and physical exam, I'm concerned for acute intra- abdominal process for current symptoms. Cannot rule out kidney stone. Urinalysis was already obtained and shows a small number of RBCs present. We'll obtain abdominal laboratory studies. She'll be given IV analgesia and hydration. She was in agreement this plan. We will start with x-ray of the abdomen as well as ultrasound evaluate for hydronephrosis. Laboratory studies are remarkable for a mild leukocytosis of 12.6 which is likely reactive. The remainder of her labs are unremarkable. She is not . Abdominal x-ray shows no acute process. Renal ultrasound shows no signs of hydronephrosis and no obvious acute process. On reevaluation, patient still having pain. She does have a history of diverticulosis and latus according to her. Therefore we will obtain a CT abdomen and pelvis. She'll be given additional pain medications per she was in agreement this plan. CT and pelvis shows no acute process. On reevaluation, patient is feeling improved. I discussed her negative workup. I believe is safe for discharge home with follow-up with her PCP. She was in agreement this plan. CT did show hepatic steatosis but otherwise no process. I instructed the patient to follow up with their PCP in the next 1-3 day. I explained that the patient should return to the emergency department if they experience any worsening symptoms. Strict return precautions were discussed with the patient. The patient expressed understanding of these instructions. I answered all questions that the patient had. The patient was discharged home in good condition with their prescriptions and follow up information. - Lab Data Result diagrams: 02/09/22 18:11 02/09/22 18:11 Lab Results 02/09/22 02/09/22 02/09/22 Range/Units 14:10 18:11 18:11 WBC 12.6 H (3.8-10.6) k/uL RBC 5.34 (3.80-5.40) m/uL Hgb 14.6 (11.4-16.0) gm/dL Hct 46.2 H (34.0-46.0) % MCV 86.6 (80.0-100.0) fL MCH 27.4 (25.0-35.0) pg MCHC 31.7 (31.0-37.0) g/dL RDW 13.3 (11.5-15.5) % Plt Count 394 (150-450) k/uL MPV 7.2 Neutrophils % 75 % Lymphocytes % 17 % Monocytes % 5 % Eosinophils % 2 % Basophils % 1 % Neutrophils # 9.4 H (1.3-7.7) k/uL Lymphocytes # 2.2 (1.0-4.8) k/uL Monocytes # 0.6 (0-1.0) k/uL Eosinophils # 0.2 (0-0.7) k/uL Basophils # 0.1 (0-0.2) k/uL PT 11.7 (9.0-12.0) sec INR 1.1 (<1.2) APTT 24.2 (22.0-30.0) sec Sodium (137-145) mmol/L Potassium (3.5-5.1) mmol/L Chloride (98-107) mmol/L Carbon Dioxide (22-30) mmol/L Anion Gap mmol/L BUN (7-17) mg/dL Creatinine (0.52-1.04) mg/dL Est GFR (CKD-EPI)AfAm (>60 ml/min/1.73 sqM) Est GFR (CKD-EPI)NonAf (>60 ml/min/1.73 sqM) Glucose (74-99) mg/dL Plasma Lactic Acid Srinivas (0.7-2.0) mmol/L Calcium (8.4-10.2) mg/dL Total Bilirubin (0.2-1.3) mg/dL AST (14-36) U/L ALT (4-34) U/L Alkaline Phosphatase (38-126) U/L Total Protein (6.3-8.2) g/dL Albumin (3.5-5.0) g/dL Amylase (30-110) U/L Lipase (23-300) U/L HCG, Qual Urine Color Yellow Urine Appearance Cloudy H (Clear) Urine pH 7.0 (5.0-8.0) Ur Specific [place] 1.022 (1.001-1.035) Urine Protein 1+ H (Negative) Urine Glucose (UA) Negative (Negative) Urine Ketones 2+ H (Negative) Urine Blood Small H (Negative) Urine Nitrite Negative (Negative) Urine Bilirubin Negative (Negative) Urine Urobilinogen 2.0 (<2.0) mg/dL Ur Leukocyte Esterase Trace H (Negative) Urine RBC 7 H (0-5) /hpf Urine WBC 2 (0-5) /hpf Ur Squamous Epith Cells 9 H (0-4) /hpf Urine Mucus Few H (None) /hpf 02/09/22 02/09/22 Range/Units 18:11 18:11 WBC (3.8-10.6) k/uL RBC (3.80-5.40) m/uL Hgb (11.4-16.0) gm/dL Hct (34.0-46.0) % MCV (80.0-100.0) fL MCH (25.0-35.0) pg MCHC (31.0-37.0) g/dL RDW (11.5-15.5) % Plt Count (150-450) k/uL MPV Neutrophils % % Lymphocytes % % Monocytes % % Eosinophils % % Basophils % % Neutrophils # (1.3-7.7) k/uL Lymphocytes # (1.0-4.8) k/uL Monocytes # (0-1.0) k/uL Eosinophils # (0-0.7) k/uL Basophils # (0-0.2) k/uL PT (9.0-12.0) sec INR (<1.2) APTT (22.0-30.0) sec Sodium 140 (137-145) mmol/L Potassium 3.8 (3.5-5.1) mmol/L Chloride 100 (98-107) mmol/L Carbon Dioxide 29 (22-30) mmol/L Anion Gap 11 mmol/L BUN 15 (7-17) mg/dL Creatinine 0.62 (0.52-1.04) mg/dL Est GFR (CKD-EPI)AfAm >90 (>60 ml/min/1.73 sqM) Est GFR (CKD-EPI)NonAf >90 (>60 ml/min/1.73 sqM) Glucose 109 H (74-99) mg/dL Plasma Lactic Acid Srinivas 0.9 (0.7-2.0) mmol/L Calcium 9.4 (8.4-10.2) mg/dL Total Bilirubin 0.4 (0.2-1.3) mg/dL AST 19 (14-36) U/L ALT 12 (4-34) U/L Alkaline Phosphatase 123 (38-126) U/L Total Protein 7.5 (6.3-8.2) g/dL Albumin 4.4 (3.5-5.0) g/dL Amylase 41 (30-110) U/L Lipase 59 (23-300) U/L HCG, Qual Not Detected Urine Color Urine Appearance (Clear) Urine pH (5.0-8.0) Ur Specific [place] (1.001-1.035) Urine Protein (Negative) Urine Glucose (UA) (Negative) Urine Ketones (Negative) Urine Blood (Negative) Urine Nitrite (Negative) Urine Bilirubin (Negative) Urine Urobilinogen (<2.0) mg/dL Ur Leukocyte Esterase (Negative) Urine RBC (0-5) /hpf Urine WBC (0-5) /hpf Ur Squamous Epith Cells (0-4) /hpf Urine Mucus (None) /hpf Disposition Clinical Impression: Abdominal pain of unknown cause, Abdominal wall pain Disposition: HOME SELF-CARE Condition: Good Instructions (If sedation given, give patient instructions): Abdominal Pain (ED) Is patient prescribed a controlled substance at d/c from ED?: No Referrals: Kaleb Huston DO [Primary Care Provider] - 1-2 days Time of Disposition: 22:15
== END 2022-02-09 22:25 | disposition home or self-care (01) ==
LOC: EC 13:07
DX: R10.9 Unspecified abdominal pain (principal); J44.9 Chronic obstructive pulmonary disease, unspecified; Z91.048 Other nonmedicinal substance allergy status; Z86.73 Personal history of transient ischemic attack (TIA), and cerebral infarction without residual deficits; I10 Essential (primary) hypertension; F17.200 Nicotine dependence, unspecified, uncomplicated; Z88.0 Allergy status to penicillin; Z88.1 Allergy status to other antibiotic agents; Z88.3 Allergy status to other anti-infective agents; Z88.8 Allergy status to other drugs, medicaments and biological substances; Z88.6 Allergy status to analgesic agent; Z91.013 Allergy to seafood; Z88.2 Allergy status to sulfonamides; Z88.5 Allergy status to narcotic agent
CPT/HCPCS: 36415; 80053; 82150; 83605; 83690; 85025; 85610; 85730; 81001; 84703; 74018; 76770; 74177; 96374; 96375; 99284; 96376; J2270; J1200; J2930; J2405; C9113; Q9967

== ENCOUNTER 2022-02-10 16:32 | Emergency (ER) | payer MEDICARE ==
[2022-02-10 17:11] VITALS: TEMP 98.1
[2022-02-10] MEDS ORDERED: HYDROmorphone 1 MG/ML 1 ML SYRINGE IM STA (19:10)
[2022-02-10] MEDS ORDERED: ACETAMINOPHEN TAB 500 MG TAB PO STA (19:11)
--- NOTE | 2022-02-10 19:17 | ED ---
General Adult HPI - General Chief complaint: Abdominal Pain Stated complaint: Abdominal Pain Time Seen by Provider: 02/10/22 19:02 Source: patient, RN notes reviewed Mode of arrival: ambulatory Limitations: no limitations - History of Present Illness Initial comments: Patient was seen here last night for back pain and blood in urine. Patient states that she chronically has had blood in the urine. Patient had an extensive workup here yesterday to include laboratory investigations, urinalysis, renal ultrasound, computed tomography scan of the abdomen and pelvis. Patient states that she has had a low-grade fever and increased back pain over the past 2 days. Patient does take Percocet at home for fibromyalgia. Patient states that the pain is again increased. Patient was given pain medication here last night. Patient had a mild increase in her white blood cell count. Patient denying any shortness of breath or chest pain. Denying any shortness of breath. No headache, no changes in vision or hearing, no sore throat or difficulty with speech, no neck pain, no chest pain or shortness of breath, no abdominal pain, c hronic hematuria with no irritative voiding, no numbness or tingling, no extremity pain, no skin rashes or lesions. Past medical, surgical, social, and family history reviewed. - Related Data Home Medications Medication Instructions Recorded Confirmed Spironolactone [Aldactone] 25 mg PO DAILY 02/05/17 12/01/21 QUEtiapine [SEROquel] 150 mg PO HS 02/25/19 12/01/21 Citalopram Hydrobromide [CeleXA] 40 mg PO DAILY 06/12/19 12/01/21 oxyCODONE-APAP 7.5-325MG [Percocet 1 tab PO TID PRN 01/01/20 12/01/21 7.5-325 mg] Dicyclomine [Bentyl] 10 mg PO QID PRN 05/28/20 12/01/21 levETIRAcetam [Keppra] 500 mg PO DAILY 02/24/21 12/01/21 rOPINIRole HCL [Requip] 0.25 mg PO HS 02/24/21 12/01/21 carvediloL [Coreg] 25 mg PO BID 03/26/21 12/01/21 Albuterol Sulfate [Proventil Hfa] 2 puff INHALATION RT-Q4H PRN 10/22/21 12/01/21 Ergocalciferol [Vitamin D2 (1250 1,250 mcg PO MO 10/22/21 12/01/21 Mcg = 19947 Iu)] QUEtiapine [SEROquel] 100 mg PO DAILY 10/22/21 12/01/21 diphenhydrAMINE [Benadryl] 50 mg PO TID 10/22/21 12/01/21 Famotidine [Pepcid] 20 mg PO BID 12/01/21 12/01/21 Previous Rx's Medication Instructions Recorded Magnesium Oxide [Magox 400] 400 mg PO DAILY 30 Days #30 tablet 10/22/21 amLODIPine [Norvasc] 5 mg PO DAILY 30 Days #30 tab 10/22/21 Orphenadrine [Norflex] 100 mg PO Q12H #14 tab 12/13/21 Allergies Allergy/AdvReac Type Severity Reaction Status Date / Time adhesive Allergy Rash/Hives Verified 02/10/22 17:10 amoxicillin Allergy Anaphylaxis Verified 02/10/22 17:10 azithromycin [From Zithromax] Allergy Anaphylaxis Verified 02/10/22 17:10 cephalexin monohydrate Allergy Anaphylaxis Verified 02/10/22 17:10 [From Keflex] ciprofloxacin Allergy Anaphylaxis Verified 02/10/22 17:10 clindamycin Allergy Anaphylaxis Verified 02/10/22 17:10 Iodinated Contrast Media Allergy Anaphylaxis Verified 02/10/22 17:10 [Iodinated Contrast- Oral and IV Dye] levofloxacin [From Levaquin] Allergy Rash/Hives Verified 02/10/22 17:10 naproxen Allergy Anaphylaxis Verified 02/10/22 17:10 NSAIDS (Non-Steroidal Allergy Rash/Hives Verified 02/10/22 17:10 Anti-Inflamma shellfish derived Allergy Anaphylaxis Verified 02/10/22 17:10 Sulfa (Sulfonamide Allergy Anaphylaxis Verified 02/10/22 17:10 Antibiotics) sulfamethoxazole Allergy Anaphylaxis Verified 02/10/22 17:10 [From Bactrim] tramadol Allergy Unknown Verified 02/10/22 17:10 trimethoprim [From Bactrim] Allergy Anaphylaxis Verified 02/10/22 17:10 Review of Systems ROS Statement: Those systems with pertinent positive or pertinent negative responses have been documented in the HPI. ROS Other: All systems not noted in ROS Statement are negative. 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 IBS, cellulitis of the chin, History of Any Multi-Drug Resistant Organisms: MRSA Date of last positivie culture/infection: 07/2016 MDRO Source:: chin Past Surgical History: Appendectomy, Section, Cholecystectomy, Hysterectomy, Tubal Ligation Additional Past Surgical History / Comment(s): oral surgery . Pancreas biopsy May 2015. Past Anesthesia/Blood Transfusion Reactions: No Reported Reaction Past Psychological History: ADD/ADHD, Anxiety, Bipolar, Depression Smoking Status: Current every day smoker Past Alcohol Use History: None Reported Past Drug Use History: Marijuana - Past Family History Father History Unknown: Yes Family Medical History: No Reported History Additional Family Medical History / Comment(s): ADOPTED General Exam - General Exam Comments Initial Comments: Patient does not appear to be ill or toxic. Vital signs reviewed, patient a febrile Limitations: no limitations General appearance: in distress (Minimal), obese Head exam: Present: atraumatic, normocephalic, normal inspection Eye exam: Present: normal appearance, PERRL, EOMI. Absent: scleral icterus, conjunctival injection, periorbital swelling ENT exam: Present: normal exam, normal oropharynx, mucous membranes moist, normal external ear exam Neck exam: Present: normal inspection, full ROM. Absent: tenderness, meningis mus, lymphadenopathy Respiratory exam: Present: normal lung sounds bilaterally. Absent: respiratory distress, wheezes, rales, rhonchi, stridor Cardiovascular Exam: Present: regular rate, normal rhythm, normal heart sounds. Absent: systolic murmur, diastolic murmur, rubs, gallop, clicks GI/Abdominal exam: Present: soft, normal bowel sounds. Absent: distended, tenderness, guarding, rebound, rigid Extremities exam: Present: normal inspection, full ROM, normal capillary refill. Absent: tenderness, pedal edema, joint swelling, calf tenderness Back exam: Present: normal inspection, full ROM (With), paraspinal tenderness. Absent: vertebral tenderness Neurological exam: Present: alert, oriented X3, CN II-XII intact Psychiatric exam: Present: normal affect, normal mood Skin exam: Present: warm, dry, intact, normal color. Absent: rash Course Vital Signs 02/10/22 17:06 Temperature 98.1 F Pulse Rate 83 Respiratory 16 Rate Blood Pressure 168/84 O2 Sat by Pulse 92 L Oximetry Procedures - Smoking Cessation Time Spent Discussing Smoking Cessation w/Patient (Minutes): 3 Patient Acknowledges Need for Cessation: No (Patient acknowledges my discussion) Medical Decision Making - Medical Decision Making Patient had a computed tomography scan of the abdomen and pelvis done here yesterday revealing no evidence of acute intra-abdominal process. Additionally she had a renal ultrasound showing no acute process. Patient did have minimal elevation in her white blood cell count. There were 7 white cells per high- powered field. Patient had an extensive workup yesterday. Given the patient's symptomology and going to add on COVID-19 testing is patient states she's also had some nausea and vomiting. Patient denying any abdominal pain. Low-grade fever with increased body aches as well. Patient's oxygen saturation is 94% on room air. However she has no adventitious lung sounds. No increased work of breathing. No cough. We'll obtain a chest x-ray anyway due to the fever. COVID-19 testing is negative. Patient was getting some itching after the Norflex. Did order IM Benadryl. Patient in no distress. Patient will need to follow-up with her regular physician for any further pain control. Patient has Percocet at home. No evidence of urinary tract infection. Patient was told to return to the ER for any signs or symptoms worsen. Told to return immediately if any other problems arise. All questions answered. Treatment plan discussed. Patient in agreement Every effort has been made to ensure accuracy of this dictation. However, due to the limitations of electronic medical records and dictation devices, errors in charting still occur. The case was discussed in detail with ED attending physician. Presentation, findings, treatment plan discussed in detail. Media Consultant Dr. Collier - Lab Data Lab Results 02/10/22 02/10/22 Range/Units 19:17 19:17 Urine Color Yellow Urine Appearance Cloudy H (Clear) Urine pH 6.0 (5.0-8.0) Ur Specific [place] 1.050 H (1.001-1.035) Urine Protein 2+ H (Negative) Urine Glucose (UA) Negative (Negative) Urine Ketones 1+ H (Negative) Urine Blood Trace H (Negative) Urine Nitrite Negative (Negative) Urine Bilirubin 1+ H (Negative) Urine Urobilinogen 4.0 (<2.0) mg/dL Ur Leukocyte Esterase Small H (Negative) Urine RBC 2 (0-5) /hpf Urine WBC 4 (0-5) /hpf Ur Squamous Epith Cells 16 H (0-4) /hpf Urine Bacteria Occasional H (None) /hpf Hyaline Casts 14 H (0-2) /lpf Urine Mucus Many H (None) /hpf Coronavirus (PCR) Not Detected (Not Detectd) Disposition Clinical Impression: Low back pain, Cigarette smoker, Nausea Disposition: HOME SELF-CARE Condition: Good Instructions (If sedation given, give patient instructions): Low Back Strain (ED) Additional Instructions: Follow-up with your regular physician as directed. Return to the ER immediately if any symptoms worsen, new symptoms arise, or any other problems develop. Is patient prescribed a controlled substance at d/c from ED?: No Referrals: Kaleb Huston DO [Primary Care Provider] - 1-2 days Time of Disposition: 22:48
--- NOTE | 2022-02-10 20:00 | XR ---
EXAMINATION TYPE: XR chest 2V DATE OF EXAM: 02/10/2022 7:55 PM COMPARISON: Chest radiographs from10/22/2021. TECHNIQUE: XR chest 2V Frontal and lateral views of the chest. CLINICAL INDICATION:Female, 47 years old with history of Fever; FINDINGS: Lungs/Pleura: There is no evidence of pleural effusion, focal consolidation, or pneumothorax. Pulmonary vascularity: Unremarkable. Heart/mediastinum: Cardiomediastinal silhouette is unremarkable. Musculoskeletal: No acute osseous pathology. IMPRESSION: No acute cardiopulmonary disease/process.
[2022-02-10] MEDS ORDERED: ORPHENADRINE 30 MG/ML 2 ML VIAL IM STA (21:02)
[2022-02-10 22:35] LABS: Appearance,Urine Cloudy (Clear); Bacteria,Urine Occasional /hpf; Bilirubin,Urine 1+ (Negative); Blood,Urine Trace (Negative); Color,Urine Yellow; Glucose,Urine (UA) Negative (Negative); Hyaline Casts,Urine 14 /lpf (0-2); Ketones,Urine 1+ (Negative); Leukocyte Esterase,Urine Small (Negative); Mucus,Urine Many /hpf; Nitrite,Urine Negative (Negative); Protein,Urine 2+ (Negative); RBC,Urine 2 /hpf (0-5); Squamous Epithelial Cell,Urine 16 /hpf (0-4); WBC,Urine 4 /hpf (0-5)
[2022-02-10] MEDS ORDERED: diphenhydrAMINE 50 MG/ML 1 ML VIAL IM STA (22:47)
[2022-02-10 22:58] VITALS: BP 124/80; PULSE 79; RESP 18
== END 2022-02-10 23:00 | disposition home or self-care (01) ==
LOC: EC 16:32
DX: M54.50 Low back pain, unspecified (principal); R11.2 Nausea with vomiting, unspecified; F17.210 Nicotine dependence, cigarettes, uncomplicated; J44.9 Chronic obstructive pulmonary disease, unspecified; I11.0 Hypertensive heart disease with heart failure; I50.9 Heart failure, unspecified; M10.9 Gout, unspecified; M19.90 Unspecified osteoarthritis, unspecified site; Z86.73 Personal history of transient ischemic attack (TIA), and cerebral infarction without residual deficits; Z88.6 Allergy status to analgesic agent; Z88.2 Allergy status to sulfonamides; Z20.822 Contact with and (suspected) exposure to COVID-19; Z91.013 Allergy to seafood; Z88.8 Allergy status to other drugs, medicaments and biological substances; Z91.041 Radiographic dye allergy status; Z91.09 Other allergy status, other than to drugs and biological substances; Z79.899 Other long term (current) drug therapy
CPT/HCPCS: 81001; 87635; 71046; 99284; 96372; J1200; J2360; J1170

== ENCOUNTER 2022-03-16 14:51 | Emergency (ER) | payer MEDICARE ==
[2022-03-16 15:46] LABS: Basophils % (A) 0 %; Eosinophils % (A) 1 %; HCT 44.9 % (34.0-46.0); HGB 13.7 gm/dL (11.4-16.0); Lymphocytes # (A) 1.7 k/uL (1.0-4.8); Lymphocytes % (A) 24 %; MCH 26.3 pg (25.0-35.0); MCHC 30.5 g/dL (31.0-37.0); MCV 86.3 fL (80.0-100.0); Mean Platelet Volume 7.3; Monocytes # (A) 0.3 k/uL (0-1.0); Monocytes % (A) 4 %; Neutrophils % (A) 69 %; Platelet Count 305 k/uL (150-450); RDW 13.1 % (11.5-15.5); WBC 7.3 k/uL (3.8-10.6)
--- NOTE | 2022-03-16 15:54 | XR ---
EXAMINATION TYPE: XR chest 2V DATE OF EXAM: 03/16/2022 COMPARISON: A 02/10/2022 TECHNIQUE: PA and lateral views submitted. HISTORY: Shortness of breath and chest pain FINDINGS: The lungs are clear and there is no pneumothorax, pleural effusion, or focal pneumonia. Hypertrophic and degenerative change of the spine. There is prominence of the pulmonary arteries. Heart size norm al with no overt failure. IMPRESSION: 1. Correlate for pulmonary arterial hypertension. Asthma or COPD in the differential diagnosis.
[2022-03-16 15:58] LABS: INR 1.1 (<1.2); Partial Thromboplastin Time 23.1 sec (22.0-30.0); Prothrombin Time 11.5 sec (9.0-12.0)
[2022-03-16 16:02] LABS: ALT 12 U/L (4-34); AST 18 U/L (14-36); African American GFR (CKD) >90 (>60 ml/min/1.73 sqM); Alkaline Phosphatase 112 U/L (38-126); Amylase 31 U/L (30-110); Anion Gap 10 mmol/L; Blood Urea Nitrogen 12 mg/dL (7-17); Calcium 9.1 mg/dL (8.4-10.2); Carbon Dioxide 33 mmol/L (22-30); Chloride 97 mmol/L (98-107); Glucose 125 mg/dL (74-99); Lipase 23 U/L (23-300); Magnesium 1.2 mg/dL (1.6-2.3); Non-African American GFR(CKD) >90 (>60 ml/min/1.73 sqM); Potassium 3.4 mmol/L (3.5-5.1); Sodium 140 mmol/L (137-145); Total Bilirubin 0.3 mg/dL (0.2-1.3); Total Protein 6.8 g/dL (6.3-8.2)
--- NOTE | 2022-03-16 16:20 | ED ---
General Adult HPI - General Chief complaint: Chest Pain Stated complaint: chest pains, nausea Time Seen by Provider: 03/16/22 15:57 Source: patient Mode of arrival: ambulatory Limitations: no limitations - History of Present Illness Initial comments: Dictation was produced using [employer]™ dictation software. please excuse any grammatical, word or spelling errors. Chief Complaint: 47-year-old female with past medical history of heart failure COPD, fibromyalgia rheumatoid arthritis presents to the ER for chest pain, abdominal burning and constitutional symptoms History of Present Illness: So 47-year-old female she presents to emergency department for multiple complaints. Main complaint is pleuritic chest pain. She states that the pain is to her anterior chest sharp in nature worse when she takes a deep breath. Patient also complaining of abdominal burning to the right upper quadrant. Patient has history of cholecystectomy. She also has had some nausea and vomiting. She reports coughing up green sputum. Patient has rhe umatoid arthritis but does not take any regular steroids or immunosuppressants. The ROS documented in this emergency department record has been reviewed and confirmed by me. Those systems with pertinent positive or negative responses have been documented in the HPI. All other systems are other negative and/or noncontributory. PHYSICAL EXAM: General Impression: Alert and oriented x3, not in acute distress HEENT: Normocephalic atraumatic, extra-ocular movements intact, pupils equal and reactive to light bilaterally, mucous membranes moist. Cardiovascular: Heart regular rate and rhythm Chest: Able to complete full sentences, no retractions, no tachypnea Abdomen: abdomen soft, non-tender, non-distended, no organomegaly Musculoskeletal: Pulses present and equal in all extremities, no peripheral edema Motor: no focal deficits noted Neurological: CN II-XII grossly intact, no focal motor or sensory deficits noted Skin: Intact with no visualized rashes Psych: Normal affect and mood ED course: 47-year-old female presents emergency department for multiple complaints. Main complaint is pleuritic chest pain and cough. She also reports having had fevers at home. vital signs upon arrival are within acceptable limits. Patient is afebrile. Laboratory evaluation obtained. Blood work and chest x-ray was ordered by triage nurse per HPI protocol. CBC is unremarkable. No leukocytosis. Coag panel is negative. Metabolic panel shows magnesium level I.2. Rest metabolic panel is unremarkable. No acidosis. 4 panel by PCR is negative. Chest x-ray shows no acute processes. Patient provided bedside at 5:45 PM found to be in stable medical condition. Patient not showing signs of respiratory distress. She is agreeable to discharge. She is told to continue using her inhaler per patient given prescription for doxycycline EKG interpretation: Ventricular rate 97, sinus rhythm,. Interval 132, care is 105, QTC 432. No [place] prolongation, no QTC prolongation, no ST or T-wave changes noted. EKG compared to 12/01/2021 showing no changes. Overall, this EKG is unremarkable - Related Data Home Medications Medication Instructions Recorded Confirmed Spironolactone [Aldactone] 25 mg PO DAILY 02/05/17 12/01/21 QUEtiapine [SEROquel] 150 mg PO HS 02/25/19 12/01/21 Citalopram Hydrobromide [CeleXA] 40 mg PO DAILY 06/12/19 12/01/21 oxyCODONE-APAP 7.5-325MG [Percocet 1 tab PO TID PRN 01/01/20 12/01/21 7.5-325 mg] Dicyclomine [Bentyl] 10 mg PO QID PRN 05/28/20 12/01/21 levETIRAcetam [Keppra] 500 mg PO DAILY 02/24/21 12/01/21 rOPINIRole HCL [Requip] 0.25 mg PO HS 02/24/21 12/01/21 carvediloL [Coreg] 25 mg PO BID 03/26/21 12/01/21 Albuterol Sulfate [Proventil Hfa] 2 puff INHALATION RT-Q4H PRN 10/22/21 12/01/21 Ergocalciferol [Vitamin D2 (1250 1,250 mcg PO MO 10/22/21 12/01/21 Mcg = 85910 Iu)] QUEtiapine [SEROquel] 100 mg PO DAILY 10/22/21 12/01/21 diphenhydrAMINE [Benadryl] 50 mg PO TID 10/22/21 12/01/21 Famotidine [Pepcid] 20 mg PO BID 12/01/21 12/01/21 Previous Rx's Medication Instructions Recorded Magnesium Oxide [Magox 400] 400 mg PO DAILY 30 Days #30 tablet 10/22/21 amLODIPine [Norvasc] 5 mg PO DAILY 30 Days #30 tab 10/22/21 Orphenadrine [Norflex] 100 mg PO Q12H #14 tab 12/13/21 Doxycycline [Vibramycin] 100 mg PO BID 5 Days #10 capsule 03/16/22 Allergies Allergy/AdvReac Type Severity Reaction Status Date / Time adhesive Allergy Rash/Hives Verified 03/16/22 17:41 amoxicillin Allergy Anaphylaxis Verified 03/16/22 17:41 azithromycin [From Zithromax] Allergy Anaphylaxis Verified 03/16/22 17:41 cephalexin monohydrate Allergy Anaphylaxis Verified 03/16/22 17:41 [From Keflex] ciprofloxacin Allergy Anaphylaxis Verified 03/16/22 17:41 clindamycin Allergy Anaphylaxis Verified 03/16/22 17:41 Iodinated Contrast Media Allergy Anaphylaxis Verified 03/16/22 17:41 [Iodinated Contrast- Oral and IV Dye] levofloxacin [From Levaquin] Allergy Rash/Hives Verified 03/16/22 17:41 naproxen Allergy Anaphylaxis Verified 03/16/22 17:41 NSAIDS (Non-Steroidal Allergy Rash/Hives Verified 03/16/22 17:41 Anti-Inflamma shellfish derived Allergy Anaphylaxis Verified 03/16/22 17:41 Sulfa (Sulfonamide Allergy Anaphylaxis Verified 03/16/22 17:41 Antibiotics) sulfamethoxazole Allergy Anaphylaxis Verified 03/16/22 17:41 [From Bactrim] tramadol Allergy Unknown Verified 03/16/22 17:41 trimethoprim [From Bactrim] Allergy Anaphylaxis Verified 03/16/22 17:41 Review of Systems ROS Statement: Those systems with pertinent positive or pertinent negative responses have been documented in the HPI. ROS Other: All systems not noted in ROS Statement are negative. 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 IBS, cellulitis of the chin, History of Any Multi-Drug Resistant Organisms: MRSA Date of last positivie culture/infection: 07/2016 MDRO Source:: chin Past Surgical History: Appendectomy, Section, Cholecystectomy, Hysterectomy, Tubal Ligation Additional Past Surgical History / Comment(s): oral surgery . Pancreas biopsy May 2015. Past Anesthesia/Blood Transfusion Reactions: No Reported Reaction Past Psychological History: ADD/ADHD, Anxiety, Bipolar, Depression Smoking Status: Current every day smoker Past Alcohol Use History: None Reported Past Drug Use History: Marijuana - Past Family History Father History Unknown: Yes Family Medical History: No Reported History Additional Family Medical History / Comment(s): ADOPTED General Exam Limitations: no limitations Course Vital Signs 03/16/22 14:52 Temperature 98.1 F Pulse Rate 99 Respiratory 20 Rate Blood Pressure 160/89 O2 Sat by Pulse 93 L Oximetry Medical Decision Making - Lab Data Result diagrams: 03/16/22 15:18 03/16/22 15:18 Lab Results 03/16/22 03/16/22 03/16/22 Range/Units 14:48 15:18 15:18 WBC 7.3 (3.8-10.6) k/uL RBC 5.20 (3.80-5.40) m/uL Hgb 13.7 (11.4-16.0) gm/dL Hct 44.9 (34.0-46.0) % MCV 86.3 (80.0-100.0) fL MCH 26.3 (25.0-35.0) pg MCHC 30.5 L (31.0-37.0) g/dL RDW 13.1 (11.5-15.5) % Plt Count 305 (150-450) k/uL MPV 7.3 Neutrophils % 69 % Lymphocytes % 24 % Monocytes % 4 % Eosinophils % 1 % Basophils % 0 % Neutrophils # 5.0 (1.3-7.7) k/uL Lymphocytes # 1.7 (1.0-4.8) k/uL Monocytes # 0.3 (0-1.0) k/uL Eosinophils # 0.0 (0-0.7) k/uL Basophils # 0.0 (0-0.2) k/uL PT 11.5 (9.0-12.0) sec INR 1.1 (<1.2) APTT 23.1 (22.0-30.0) sec Sodium (137-145) mmol/L Potassium (3.5-5.1) mmol/L Chloride (98-107) mmol/L Carbon Dioxide (22-30) mmol/L Anion Gap mmol/L BUN (7-17) mg/dL Creatinine (0.52-1.04) mg/dL Est GFR (CKD-EPI)AfAm (>60 ml/min/1.73 sqM) Est GFR (CKD-EPI)NonAf (>60 ml/min/1.73 sqM) Glucose (74-99) mg/dL Calcium (8.4-10.2) mg/dL Magnesium (1.6-2.3) mg/dL Total Bilirubin (0.2-1.3) mg/dL AST (14-36) U/L ALT (4-34) U/L Alkaline Phosphatase (38-126) U/L Troponin I (0.000-0.034) ng/mL Total Protein (6.3-8.2) g/dL Albumin (3.5-5.0) g/dL Amylase (30-110) U/L Lipase (23-300) U/L Influenza Type A (PCR) Not Detected (Not Detectd) Influenza Type B (PCR) Not Detected (Not Detectd) RSV (PCR) Not Detected (Not Detectd) SARS-CoV-2 (PCR) Not Detected (Not Detectd) 03/16/22 03/16/22 Range/Units 15:18 15:18 WBC (3.8-10.6) k/uL RBC (3.80-5.40) m/uL Hgb (11.4-16.0) gm/dL Hct (34.0-46.0) % MCV (80.0-100.0) fL MCH (25.0-35.0) pg MCHC (31.0-37.0) g/dL RDW (11.5-15.5) % Plt Count (150-450) k/uL MPV Neutrophils % % Lymphocytes % % Monocytes % % Eosinophils % % Basophils % % Neutrophils # (1.3-7.7) k/uL Lymphocytes # (1.0-4.8) k/uL Monocytes # (0-1.0) k/uL Eosinophils # (0-0.7) k/uL Basophils # (0-0.2) k/uL PT (9.0-12.0) sec INR (<1.2) APTT (22.0-30.0) sec Sodium 140 (137-145) mmol/L Potassium 3.4 L (3.5-5.1) mmol/L Chloride 97 L (98-107) mmol/L Carbon Dioxide 33 H (22-30) mmol/L Anion Gap 10 mmol/L BUN 12 (7-17) mg/dL Creatinine 0.56 (0.52-1.04) mg/dL Est GFR (CKD-EPI)AfAm >90 (>60 ml/min/1.73 sqM) Est GFR (CKD-EPI)NonAf >90 (>60 ml/min/1.73 sqM) Glucose 125 H (74-99) mg/dL Calcium 9.1 (8.4-10.2) mg/dL Magnesium 1.2 L (1.6-2.3) mg/dL Total Bilirubin 0.3 (0.2-1.3) mg/dL AST 18 (14-36) U/L ALT 12 (4-34) U/L Alkaline Phosphatase 112 (38-126) U/L Troponin I <0.012 (0.000-0.034) ng/mL Total Protein 6.8 (6.3-8.2) g/dL Albumin 4.0 (3.5-5.0) g/dL Amylase 31 (30-110) U/L Lipase 23 (23-300) U/L Influenza Type A (PCR) (Not Detectd) Influenza Type B (PCR) (Not Detectd) RSV (PCR) (Not Detectd) SARS-CoV-2 (PCR) (Not Detectd) Disposition Clinical Impression: Cough Disposition: HOME SELF-CARE Condition: Fair Instructions (If sedation given, give patient instructions): Bacterial Pneumonia (ED) Prescriptions: Doxycycline [Vibramycin] 100 mg PO BID 5 Days #10 capsule Is patient prescribed a controlled substance at d/c from ED?: No Referrals: Kaleb Huston DO [Primary Care Provider] - 1-2 days Time of Disposition: 17:52
[2022-03-16] MEDS ORDERED: ONDANSETRON 4 MG/2 ML VIAL IVP STA (17:49)
[2022-03-16] MEDS ORDERED: MORPHINE SULFATE 4 MG/ML SYRINGE IV STA (17:49)
[2022-03-16] MEDS ORDERED: MORPHINE SULFATE 4 MG/ML SYRINGE IM STA (17:55)
[2022-03-16] MEDS ORDERED: ONDANSETRON 4 MG/2 ML VIAL IM STA (17:56)
[2022-03-16] MEDS ORDERED: MAGNESIUM OXIDE 400 MG TAB PO STA (18:09)
[2022-03-16 18:14] VITALS: BP 165/93; PULSE 85; RESP 18; TEMP 98.7
== END 2022-03-16 18:14 | disposition home or self-care (01) ==
LOC: EC 14:51
DX: R05.9 Cough, unspecified (principal); I11.0 Hypertensive heart disease with heart failure; I50.9 Heart failure, unspecified; J44.9 Chronic obstructive pulmonary disease, unspecified; Z86.73 Personal history of transient ischemic attack (TIA), and cerebral infarction without residual deficits; M06.9 Rheumatoid arthritis, unspecified; F41.9 Anxiety disorder, unspecified; F31.9 Bipolar disorder, unspecified; F17.200 Nicotine dependence, unspecified, uncomplicated; F12.90 Cannabis use, unspecified, uncomplicated; Z88.8 Allergy status to other drugs, medicaments and biological substances; Z88.1 Allergy status to other antibiotic agents; Z88.6 Allergy status to analgesic agent; Z91.013 Allergy to seafood; Z88.2 Allergy status to sulfonamides; Z79.51 Long term (current) use of inhaled steroids; Z79.899 Other long term (current) drug therapy; Z20.822 Contact with and (suspected) exposure to COVID-19
CPT/HCPCS: 36415; 93005; 80053; 82150; 83690; 83735; 84484; 85025; 85610; 85730; 87636; 71046; 99285; 96372 ×2; J2270; J2405

== ENCOUNTER 2022-03-28 17:50 | Emergency (ER) | payer MEDICARE ==
[2022-03-28 18:05] VITALS: BP 164/94; RESP 20; TEMP 98.5
[2022-03-28 18:38] LABS: Basophils % (A) 0 %; Eosinophils # (A) 0.3 k/uL (0-0.7); Eosinophils % (A) 3 %; HCT 46.1 % (34.0-46.0); HGB 14.3 gm/dL (11.4-16.0); Hypochromasia Slight; Lymphocytes # (A) 2.4 k/uL (1.0-4.8); Lymphocytes % (A) 21 %; MCH 27.1 pg (25.0-35.0); MCHC 31.1 g/dL (31.0-37.0); MCV 87.3 fL (80.0-100.0); Mean Platelet Volume 6.7; Monocytes # (A) 0.5 k/uL (0-1.0); Monocytes % (A) 4 %; Neutrophils # (A) 7.9 k/uL (1.3-7.7); Neutrophils % (A) 70 %; Platelet Count 368 k/uL (150-450); RBC 5.28 m/uL (3.80-5.40); RDW 13.3 % (11.5-15.5); WBC 11.3 k/uL (3.8-10.6)
[2022-03-28 18:48] LABS: Partial Thromboplastin Time 22.9 sec (22.0-30.0); Prothrombin Time 10.7 sec (9.0-12.0)
[2022-03-28 18:49] LABS: ALT 23 U/L (4-34); AST 20 U/L (14-36); African American GFR (CKD) >90 (>60 ml/min/1.73 sqM); Albumin 4.6 g/dL (3.5-5.0); Alkaline Phosphatase 102 U/L (38-126); Anion Gap 11 mmol/L; Blood Urea Nitrogen 10 mg/dL (7-17); Calcium 9.7 mg/dL (8.4-10.2); Carbon Dioxide 31 mmol/L (22-30); Chloride 93 mmol/L (98-107); Glucose 175 mg/dL (74-99); Non-African American GFR(CKD) >90 (>60 ml/min/1.73 sqM); Potassium 4.1 mmol/L (3.5-5.1); Sodium 135 mmol/L (137-145); Total Bilirubin 0.5 mg/dL (0.2-1.3); Total Protein 7.4 g/dL (6.3-8.2)
--- NOTE | 2022-03-28 19:19 | XR ---
EXAMINATION TYPE: XR chest 2V DATE OF EXAM: 03/28/2022 COMPARISON: 03/16/2022 HISTORY: Chest pain TECHNIQUE: FINDINGS: Heart and mediastinum are normal. Lungs are clear. Diaphragm is normal. Bony thorax appears normal. IMPRESSION: Normal chest. No change
[2022-03-28] MEDS ORDERED: ONDANSETRON 4 MG/2 ML VIAL IVP STA (20:30)
[2022-03-28] MEDS ORDERED: HYDROmorphone 0.5 MG/0.5 ML SYRINGE IVP STA (20:30)
[2022-03-28 21:52] VITALS: PULSE 82
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
== END 2022-03-28 23:40 | disposition home or self-care (01) ==
LOC: EC 17:50
DX: R07.89 Other chest pain (principal); R11.2 Nausea with vomiting, unspecified; J44.9 Chronic obstructive pulmonary disease, unspecified; I10 Essential (primary) hypertension; F17.200 Nicotine dependence, unspecified, uncomplicated; Z88.0 Allergy status to penicillin; Z91.048 Other nonmedicinal substance allergy status; Z88.1 Allergy status to other antibiotic agents; Z91.041 Radiographic dye allergy status; Z88.6 Allergy status to analgesic agent; Z88.2 Allergy status to sulfonamides; Z88.5 Allergy status to narcotic agent; V89.2XXA Person injured in unspecified motor-vehicle accident, traffic, initial encounter
CPT/HCPCS: 36415; 93005; 83880; 80053; 84484; 85025; 85610; 85730; 71046; 99285; 96374; 96375; J2405; J1170

== ENCOUNTER 2022-05-29 04:20 | Inpatient (IN) | payer MEDICARE ==
--- NOTE | 2022-05-29 04:33 | ED ---
Altered Mental Status HPI <Robinson He - Last Filed: 05/29/22 11:29> - General Source: EMS Mode of arrival: EMS Limitations: altered mental status - History of Present Illness MD Complaint: confusion -: unknown Severity: severe <Dilan Collier - Last Filed: 05/31/22 12:56> - General Stated Complaint: Altered Mental Time Seen by Provider: 05/29/22 04:24 - History of Present Illness Initial Comments: Patient is 47-year-old woman brought by EMS to have evaluation of altered mental status. Patient reportedly had not taken her home medication for some period of time. Family reported that she had gone to use bathroom and then appears to have had bowel incontinence. They phoned EMS who brought her here. Patient not able to provide any history, appears very delirious. (Dilan Collier) - Related Data Home Medications Medication Instructions Recorded Confirmed Spironolactone [Aldactone] 25 mg PO DAILY 02/05/17 05/29/22 Citalopram Hydrobromide [CeleXA] 40 mg PO DAILY 06/12/19 05/29/22 Dicyclomine [Bentyl] 10 mg PO QID PRN 05/28/20 05/29/22 levETIRAcetam [Keppra] 500 mg PO DAILY 02/24/21 05/29/22 rOPINIRole HCL [Requip] 0.25 mg PO HS 02/24/21 05/29/22 carvediloL [Coreg] 25 mg PO BID 03/26/21 05/29/22 Albuterol Sulfate [Proventil Hfa] 2 puff INHALATION RT-Q4H PRN 10/22/21 05/29/22 Ergocalciferol [Vitamin D2 (1250 1,250 mcg PO MO 10/22/21 05/29/22 Mcg = 27767 Iu)] oxyCODONE-APAP 10-325MG [Percocet 1 tab PO TID PRN 03/16/22 05/29/22 10-325 mg] Naloxone HCl [Narcan] 4 mg NASAL ONCE PRN 05/29/22 05/29/22 Previous Rx's Medication Instructions Recorded Magnesium Oxide [Magox 400] 400 mg PO DAILY 30 Days #30 tablet 10/22/21 amLODIPine [Norvasc] 5 mg PO DAILY 30 Days #30 tab 10/22/21 Ondansetron Odt [Zofran Odt] 4 mg PO Q8HR PRN #12 tab 03/28/22 Allergies Allergy/AdvReac Type Severity Reaction Status Date / Time adhesive Allergy Rash/Hives Verified 05/29/22 14:21 amoxicillin Allergy Anaphylaxis Verified 05/29/22 14:21 azithromycin [From Zithromax] Allergy Anaphylaxis Verified 05/29/22 14:21 cephalexin monohydrate Allergy Anaphylaxis Verified 05/29/22 14:21 [From Keflex] ciprofloxacin Allergy Anaphylaxis Verified 05/29/22 14:21 clindamycin Allergy Anaphylaxis Verified 05/29/22 14:21 Iodinated Contrast Media Allergy Anaphylaxis Verified 05/29/22 14:21 [Iodinated Contrast- Oral and IV Dye] levofloxacin [From Levaquin] Allergy Rash/Hives Verified 05/29/22 14:21 naproxen Allergy Anaphylaxis Verified 05/29/22 14:21 NSAIDS (Non-Steroidal Allergy Rash/Hives Verified 05/29/22 14:21 Anti-Inflamma shellfish derived Allergy Anaphylaxis Verified 05/29/22 14:21 Sulfa (Sulfonamide Allergy Anaphylaxis Verified 05/29/22 14:21 Antibiotics) sulfamethoxazole Allergy Anaphylaxis Verified 05/29/22 14:21 [From Bactrim] tramadol Allergy Unknown Verified 05/29/22 14:21 trimethoprim [From Bactrim] Allergy Anaphylaxis Verified 05/29/22 14:21 Review of Systems ROS Other: All systems not noted in ROS Statement are negative. <Robinson He - Last Filed: 05/29/22 11:29> ROS Other: All systems not noted in ROS Statement are negative. Limitations: ROS unobtainable due to patients medical condition <Dilan Collier - Last Filed: 05/31/22 12:56> ROS Statement: Those systems with pertinent positive or pertinent negative responses have been documented in the HPI. 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 IBS, cellulitis of the chin, History of Any Multi-Drug Resistant Organisms: MRSA Date of last positivie culture/infection: 07/2016 MDRO Source:: chin Past Surgical History: Appendectomy, Section, Cholecystectomy, Hysterectomy, Tubal Ligation Additional Past Surgical History / Comment(s): oral surgery . Pancreas biopsy May 2015. Past Anesthesia/Blood Transfusion Reactions: No Reported Reaction Past Psychological History: ADD/ADHD, Anxiety, Bipolar, Depression Smoking Status: Current every day smoker Past Alcohol Use History: None Reported Past Drug Use History: Marijuana - Past Family History Father History Unknown: Yes Family Medical History: No Reported History Additional Family Medical History / Comment(s): ADOPTED <Dilan Collier - Last Filed: 05/31/22 12:56> General Exam General appearance: alert, appears intoxicated Head exam: Present: atraumatic, normocephalic Eye exam: Present: normal appearance, PERRL, EOMI. Absent: scleral icterus, conjunctival injection ENT exam: Present: mucous membranes dry Neck exam: Present: normal inspection, full ROM. Absent: tenderness, meningismus Respiratory exam: Present: wheezes. Absent: respiratory distress, rales, rhonchi, stridor Cardiovascular Exam: Present: regular rate, normal rhythm, normal heart sounds. Absent: systolic murmur, diastolic murmur, rubs, gallop GI/Abdominal exam: Present: soft. Absent: distended, tenderness, guarding, rebound, rigid, mass Extremities exam: Present: normal capillary refill. Absent: pedal edema, calf tenderness Back exam: Present: normal inspection. Absent: CVA tenderness (R), CVA tenderness (L) Neurological exam: Present: altered, CN II-XII intact. Absent: oriented X3, motor sensory deficit Skin exam: Present: warm, dry, intact, normal color. Absent: rash <Dilan Collier - Last Filed: 05/31/22 12:56> Course <Robinson He - Last Filed: 05/29/22 11:29> <Dilan Collier - Last Filed: 05/31/22 12:56> Vital Signs 05/29/22 05/29/22 05/29/22 04:49 05:01 06:10 Temperature 98.1 F Pulse Rate 105 H 104 H 105 H Respiratory 26 H 24 20 Rate Blood Pressure 143/85 O2 Sat by Pulse 91 L 95 96 Oximetry 05/29/22 05/29/22 05/29/22 06:12 07:38 08:06 Temperature 101.1 F H Pulse Rate 111 H 109 H Respiratory 30 H 28 H Rate Blood Pressure 115/74 126/78 143/79 O2 Sat by Pulse 9 L 97 Oximetry 05/29/22 05/29/22 05/29/22 08:32 09:15 10:44 Temperature Pulse Rate 109 H 115 H 114 H Respiratory 30 H 28 H 26 H Rate Blood Pressure 109/74 125/87 113/73 O2 Sat by Pulse 96 99 96 Oximetry 05/29/22 05/29/22 05/29/22 11:19 12:09 12:41 Temperature 102.9 F H 102.2 F H 101.2 F H Pulse Rate 112 H 115 H 108 H Respiratory 36 H 26 H 22 Rate Blood Pressure 126/68 121/64 120/62 O2 Sat by Pulse 97 97 98 Oximetry - Reevaluation(s) Reevaluation #1: 05/29/22 11:31 There is some concern for severe sepsis/shock diagnosed at 11:30 AM. Blood culture and lactic acid have been ordered. IV antibiotics have been ordered. (Robinson He) 05/29/22 04:32 Patient's 47-year-old woman here with altered mental status. She arrives in dress and makeup but there is stool smeared to both lower legs. Patient does attempt to get out of bed. Appears delirious and anxious. (Dilan Collier) Procedures - Sepsis Sepsis Focused Exam #1 Time Sepsis Criteria Met: 11:30 Sepsis Focused Exam Date: 05/29/22 Sepsis Focused Exam Time: 11:50 Capillary Refill: < 2 Seconds: Fingers, Toes Peripheral Pulses: Normal: Radial (R), Radial (L) Skin Color: Normal for Patient Respiratory Exam: normal lung sounds Cardiovascular Exam: tachycardia <Robinson He - Last Filed: 05/29/22 11:29> - Lumbar Puncture Consent Obtained: emergent situation Indication for Procedure: fever work up, change in mental status Patient Position: left lateral decubitus Skin Prep: 0.5% Chlorhexidine/Alcohol Local Anesthetic Used: Lidocaine 1% Spinal Needle Gauge: 20G Spinal Needle Length: 3.5in Interspace Used: L3-L4 Fluid Initially Obtained: clear Complications: none Patient Tolerated Procedure: no complications <Dilan Collier - Last Filed: 05/31/22 12:56> Medical Decision Making - Lab Data Result diagrams: 05/29/22 05:00 05/29/22 05:00 <Robinson He - Last Filed: 05/29/22 11:29> - Lab Data Result diagrams: 05/30/22 08:42 05/31/22 06:39 <Dilan Collier - Last Filed: 05/31/22 12:56> - Medical Decision Making Case endorsed to me by Dr. Stinson for admission. We did contact lab who states lumbar puncture has 3 white cells and 2 red cells. Patient reevaluated. Patient offers very little history and still remains mildly agitated. Case was also discussed with Dr. Levine, who will admit covering Dr. Huston. Infectious disease will be consulted. Patient has multiple ALLERGIES with reported anaphylaxis therefore vancomycin starting at this time. (Robinson He) - Lab Data Lab Results 05/29/22 05/29/22 05/29/22 Range/Units 04:53 05:00 05:00 WBC 32.4 H (3.8-10.6) k/uL RBC 5.02 (3.80-5.40) m/uL Hgb 13.7 (11.4-16.0) gm/dL Hct 42.1 (34.0-46.0) % MCV 83.9 (80.0-100.0) fL MCH 27.2 (25.0-35.0) pg MCHC 32.5 (31.0-37.0) g/dL RDW 12.9 (11.5-15.5) % Plt Count 252 (150-450) k/uL MPV 7.8 Neutrophils % (Manual) 49 % Band Neuts % (Manual) 35 % Lymphocytes % (Manual) 9 % Monocytes % (Manual) 6 % Metamyelocytes % 1 % Neutrophils # (Manual) 27.20 H (1.3-7.7) k/uL Lymphocytes # (Manual) 2.92 (1.0-4.8) k/uL Monocytes # (Manual) 1.94 H (0-1.0) k/uL Metamyelocytes # (Man) 0.32 H (0) k/uL Nucleated RBCs 0 (0-0) /100 WBC Manual Slide Review Performed Toxic Granulation Present Toxic Vacuolation Present PT 15.2 H (9.0-12.0) sec INR 1.5 H (<1.2) APTT 26.9 (22.0-30.0) sec VBG pH (7.31-7.41) VBG pCO2 (37-51) mmHg VBG HCO3 (24-28) mmol/L Sodium (137-145) mmol/L Potassium (3.5-5.1) mmol/L Chloride (98-107) mmol/L Carbon Dioxide (22-30) mmol/L Anion Gap mmol/L BUN (7-17) mg/dL Creatinine (0.52-1.04) mg/dL Est GFR (CKD-EPI)AfAm (>60 ml/min/1.73 sqM) Est GFR (CKD-EPI)NonAf (>60 ml/min/1.73 sqM) Glucose (74-99) mg/dL POC Glucose (mg/dL) 109 (70-110) mg/dL POC Glu Nitroglycerin Supervisor ID Gloria Lamb Lactic Ac Sepsis Rflx Plasma Lactic Acid Srinivas (0.7-2.0) mmol/L Calcium (8.4-10.2) mg/dL Total Bilirubin (0.2-1.3) mg/dL AST (14-36) U/L ALT (4-34) U/L Alkaline Phosphatase (38-126) U/L Ammonia (<30) umol/L Troponin I (0.000-0.034) ng/mL Total Protein (6.3-8.2) g/dL Albumin (3.5-5.0) g/dL Urine Color Urine Appearance (Clear) Urine pH (5.0-8.0) Ur Specific [place] (1.001-1.035) Urine Protein (Negative) Urine Glucose (UA) (Negative) Urine Ketones (Negative) Urine Blood (Negative) Urine Nitrite (Negative) Urine Bilirubin (Negative) Urine Urobilinogen (<2.0) mg/dL Ur Leukocyte Esterase (Negative) Urine RBC (0-5) /hpf Urine WBC (0-5) /hpf Urine Bacteria (None) /hpf Urine Mucus (None) /hpf CSF Tube Number CSF Volume CSF Appearance CSF Color CSF RBC (0-10) u/L CSF Tot Nucleated Cells (0-5) u/L CSF Glucose (40-70) mg/dL CSF Total Protein (12-60) mg/dL Urine Opiates Screen (NotDetected) Ur Oxycodone Screen (NotDetected) Urine Methadone Screen (NotDetected) Ur Propoxyphene Screen (NotDetected) Ur Barbiturates Screen (NotDetected) U Tricyclic Antidepress (NotDetected) Ur Phencyclidine Scrn (NotDetected) Ur Amphetamines Screen (NotDetected) U Methamphetamines Scrn (NotDetected) U Benzodiazepines Scrn (NotDetected) Urine Cocaine Screen (NotDetected) U Marijuana (THC) Screen (NotDetected) Serum Alcohol mg/dL HSV I DNA PCR (Not detected) HSV II DNA PCR (Not detected) HSV (PCR) Source 05/29/22 05/29/22 05/29/22 Range/Units 05:00 05:00 05:00 WBC (3.8-10.6) k/uL RBC (3.80-5.40) m/uL Hgb (11.4-16.0) gm/dL Hct (34.0-46.0) % MCV (80.0-100.0) fL MCH (25.0-35.0) pg MCHC (31.0-37.0) g/dL RDW (11.5-15.5) % Plt Count (150-450) k/uL MPV Neutrophils % (Manual) % Band Neuts % (Manual) % Lymphocytes % (Manual) % Monocytes % (Manual) % Metamyelocytes % % Neutrophils # (Manual) (1.3-7.7) k/uL Lymphocytes # (Manual) (1.0-4.8) k/uL Monocytes # (Manual) (0-1.0) k/uL Metamyelocytes # (Man) (0) k/uL Nucleated RBCs (0-0) /100 WBC Manual Slide Review Toxic Granulation Toxic Vacuolation PT (9.0-12.0) sec INR (<1.2) APTT (22.0-30.0) sec VBG pH (7.31-7.41) VBG pCO2 (37-51) mmHg VBG HCO3 (24-28) mmol/L Sodium 133 L (137-145) mmol/L Potassium 3.8 (3.5-5.1) mmol/L Chloride 88 L (98-107) mmol/L Carbon Dioxide 33 H (22-30) mmol/L Anion Gap 12 mmol/L BUN 20 H (7-17) mg/dL Creatinine 0.58 (0.52-1.04) mg/dL Est GFR (CKD-EPI)AfAm >90 (>60 ml/min/1.73 sqM) Est GFR (CKD-EPI)NonAf >90 (>60 ml/min/1.73 sqM) Glucose 103 H (74-99) mg/dL POC Glucose (mg/dL) (70-110) mg/dL POC Glu Nitroglycerin Supervisor ID Lactic Ac Sepsis Rflx Plasma Lactic Acid Srinivas 5.6 H* (0.7-2.0) mmol/L Calcium 8.6 (8.4-10.2) mg/dL Total Bilirubin 0.8 (0.2-1.3) mg/dL AST 38 H (14-36) U/L ALT 31 (4-34) U/L Alkaline Phosphatase 94 (38-126) U/L Ammonia 22 (<30) umol/L Troponin I (0.000-0.034) ng/mL Total Protein 6.7 (6.3-8.2) g/dL Albumin 3.8 (3.5-5.0) g/dL Urine Color Urine Appearance (Clear) Urine pH (5.0-8.0) Ur Specific [place] (1.001-1.035) Urine Protein (Negative) Urine Glucose (UA) (Negative) Urine Ketones (Negative) Urine Blood (Negative) Urine Nitrite (Negative) Urine Bilirubin (Negative) Urine Urobilinogen (<2.0) mg/dL Ur Leukocyte Esterase (Negative) Urine RBC (0-5) /hpf Urine WBC (0-5) /hpf Urine Bacteria (None) /hpf Urine Mucus (None) /hpf CSF Tube Number CSF Volume CSF Appearance CSF Color CSF RBC (0-10) u/L CSF Tot Nucleated Cells (0-5) u/L CSF Glucose (40-70) mg/dL CSF Total Protein (12-60) mg/dL Urine Opiates Screen Detected H (NotDetected) Ur Oxycodone Screen Detected H (NotDetected) Urine Methadone Screen Not Detected (NotDetected) Ur Propoxyphene Screen Not Detected (NotDetected) Ur Barbiturates Screen Not Detected (NotDetected) U Tricyclic Antidepress Detected H (NotDetected) Ur Phencyclidine Scrn Not Detected (NotDetected) Ur Amphetamines Screen Not Detected (NotDetected) U Methamphetamines Scrn Not Detected (NotDetected) U Benzodiazepines Scrn Detected H (NotDetected) Urine Cocaine Screen Not Detected (NotDetected) U Marijuana (THC) Screen Detected H (NotDetected) Serum Alcohol <10 mg/dL HSV I DNA PCR (Not detected) HSV II DNA PCR (Not detected) HSV (PCR) Source 05/29/22 05/29/22 05/29/22 Range/Units 05:00 05:00 05:50 WBC (3.8-10.6) k/uL RBC (3.80-5.40) m/uL Hgb (11.4-16.0) gm/dL Hct (34.0-46.0) % MCV (80.0-100.0) fL MCH (25.0-35.0) pg MCHC (31.0-37.0) g/dL RDW (11.5-15.5) % Plt Count (150-450) k/uL MPV Neutrophils % (Manual) % Band Neuts % (Manual) % Lymphocytes % (Manual) % Monocytes % (Manual) % Metamyelocytes % % Neutrophils # (Manual) (1.3-7.7) k/uL Lymphocytes # (Manual) (1.0-4.8) k/uL Monocytes # (Manual) (0-1.0) k/uL Metamyelocytes # (Man) (0) k/uL Nucleated RBCs (0-0) /100 WBC Manual Slide Review Toxic Granulation Toxic Vacuolation PT (9.0-12.0) sec INR (<1.2) APTT (22.0-30.0) sec VBG pH 7.62 H* (7.31-7.41) VBG pCO2 33 L (37-51) mmHg VBG HCO3 34 H (24-28) mmol/L Sodium (137-145) mmol/L Potassium (3.5-5.1) mmol/L Chloride (98-107) mmol/L Carbon Dioxide (22-30) mmol/L Anion Gap mmol/L BUN (7-17) mg/dL Creatinine (0.52-1.04) mg/dL Est GFR (CKD-EPI)AfAm (>60 ml/min/1.73 sqM) Est GFR (CKD-EPI)NonAf (>60 ml/min/1.73 sqM) Glucose (74-99) mg/dL POC Glucose (mg/dL) (70-110) mg/dL POC Glu Nitroglycerin Supervisor ID Lactic Ac Sepsis Rflx Plasma Lactic Acid Srinivas (0.7-2.0) mmol/L Calcium (8.4-10.2) mg/dL Total Bilirubin (0.2-1.3) mg/dL AST (14-36) U/L ALT (4-34) U/L Alkaline Phosphatase (38-126) U/L Ammonia (<30) umol/L Troponin I 0.033 (0.000-0.034) ng/mL Total Protein (6.3-8.2) g/dL Albumin (3.5-5.0) g/dL Urine Color Yellow Urine Appearance Clear (Clear) Urine pH 8.0 (5.0-8.0) Ur Specific [place] 1.025 (1.001-1.035) Urine Protein 3+ H (Negative) Urine Glucose (UA) Negative (Negative) Urine Ketones 1+ H (Negative) Urine Blood Large H (Negative) Urine Nitrite Negative (Negative) Urine Bilirubin Negative (Negative) Urine Urobilinogen <2.0 (<2.0) mg/dL Ur Leukocyte Esterase Negative (Negative) Urine RBC 58 H (0-5) /hpf Urine WBC 4 (0-5) /hpf Urine Bacteria Rare H (None) /hpf Urine Mucus Rare H (None) /hpf CSF Tube Number CSF Volume CSF Appearance CSF Color CSF RBC (0-10) u/L CSF Tot Nucleated Cells (0-5) u/L CSF Glucose (40-70) mg/dL CSF Total Protein (12-60) mg/dL Urine Opiates Screen (NotDetected) Ur Oxycodone Screen (NotDetected) Urine Methadone Screen (NotDetected) Ur Propoxyphene Screen (NotDetected) Ur Barbiturates Screen (NotDetected) U Tricyclic Antidepress (NotDetected) Ur Phencyclidine Scrn (NotDetected) Ur Amphetamines Screen (NotDetected) U Methamphetamines Scrn (NotDetected) U Benzodiazepines Scrn (NotDetected) Urine Cocaine Screen (NotDetected) U Marijuana (THC) Screen (NotDetected) Serum Alcohol mg/dL HSV I DNA PCR (Not detected) HSV II DNA PCR (Not detected) HSV (PCR) Source 05/29/22 05/29/22 05/29/22 Range/Units 07:14 09:11 09:11 WBC (3.8-10.6) k/uL RBC (3.80-5.40) m/uL Hgb (11.4-16.0) gm/dL Hct (34.0-46.0) % MCV (80.0-100.0) fL MCH (25.0-35.0) pg MCHC (31.0-37.0) g/dL RDW (11.5-15.5) % Plt Count (150-450) k/uL MPV Neutrophils % (Manual) % Band Neuts % (Manual) % Lymphocytes % (Manual) % Monocytes % (Manual) % Metamyelocytes % % Neutrophils # (Manual) (1.3-7.7) k/uL Lymphocytes # (Manual) (1.0-4.8) k/uL Monocytes # (Manual) (0-1.0) k/uL Metamyelocytes # (Man) (0) k/uL Nucleated RBCs (0-0) /100 WBC Manual Slide Review Toxic Granulation Toxic Vacuolation PT (9.0-12.0) sec INR (<1.2) APTT (22.0-30.0) sec VBG pH (7.31-7.41) VBG pCO2 (37-51) mmHg VBG HCO3 (24-28) mmol/L Sodium (137-145) mmol/L Potassium (3.5-5.1) mmol/L Chloride (98-107) mmol/L Carbon Dioxide (22-30) mmol/L Anion Gap mmol/L BUN (7-17) mg/dL Creatinine (0.52-1.04) mg/dL Est GFR (CKD-EPI)AfAm (>60 ml/min/1.73 sqM) Est GFR (CKD-EPI)NonAf (>60 ml/min/1.73 sqM) Glucose (74-99) mg/dL POC Glucose (mg/dL) (70-110) mg/dL POC Glu Nitroglycerin Supervisor ID Lactic Ac Sepsis Rflx Y Plasma Lactic Acid Srinivas (0.7-2.0) mmol/L Calcium (8.4-10.2) mg/dL Total Bilirubin (0.2-1.3) mg/dL AST (14-36) U/L ALT (4-34) U/L Alkaline Phosphatase (38-126) U/L Ammonia (<30) umol/L Troponin I (0.000-0.034) ng/mL Total Protein (6.3-8.2) g/dL Albumin (3.5-5.0) g/dL Urine Color Urine Appearance (Clear) Urine pH (5.0-8.0) Ur Specific [place] (1.001-1.035) Urine Protein (Negative) Urine Glucose (UA) (Negative) Urine Ketones (Negative) Urine Blood (Negative) Urine Nitrite (Negative) Urine Bilirubin (Negative) Urine Urobilinogen (<2.0) mg/dL Ur Leukocyte Esterase (Negative) Urine RBC (0-5) /hpf Urine WBC (0-5) /hpf Urine Bacteria (None) /hpf Urine Mucus (None) /hpf CSF Tube Number 4 CSF Volume 0.5 CSF Appearance Clear CSF Color Colorless CSF RBC 2 (0-10) u/L CSF Tot Nucleated Cells 3 (0-5) u/L CSF Glucose 62 (40-70) mg/dL CSF Total Protein 44 (12-60) mg/dL Urine Opiates Screen (NotDetected) Ur Oxycodone Screen (NotDetected) Urine Methadone Screen (NotDetected) Ur Propoxyphene Screen (NotDetected) Ur Barbiturates Screen (NotDetected) U Tricyclic Antidepress (NotDetected) Ur Phencyclidine Scrn (NotDetected) Ur Amphetamines Screen (NotDetected) U Methamphetamines Scrn (NotDetected) U Benzodiazepines Scrn (NotDetected) Urine Cocaine Screen (NotDetected) U Marijuana (THC) Screen (NotDetected) Serum Alcohol mg/dL HSV I DNA PCR Not detected (Not detected) HSV II DNA PCR Not detected (Not detected) HSV (PCR) Source 05/29/22 Range/Units 09:14 WBC (3.8-10.6) k/uL RBC (3.80-5.40) m/uL Hgb (11.4-16.0) gm/dL Hct (34.0-46.0) % MCV (80.0-100.0) fL MCH (25.0-35.0) pg MCHC (31.0-37.0) g/dL RDW (11.5-15.5) % Plt Count (150-450) k/uL MPV Neutrophils % (Manual) % Band Neuts % (Manual) % Lymphocytes % (Manual) % Monocytes % (Manual) % Metamyelocytes % % Neutrophils # (Manual) (1.3-7.7) k/uL Lymphocytes # (Manual) (1.0-4.8) k/uL Monocytes # (Manual) (0-1.0) k/uL Metamyelocytes # (Man) (0) k/uL Nucleated RBCs (0-0) /100 WBC Manual Slide Review Toxic Granulation Toxic Vacuolation PT (9.0-12.0) sec INR (<1.2) APTT (22.0-30.0) sec VBG pH (7.31-7.41) VBG pCO2 (37-51) mmHg VBG HCO3 (24-28) mmol/L Sodium (137-145) mmol/L Potassium (3.5-5.1) mmol/L Chloride (98-107) mmol/L Carbon Dioxide (22-30) mmol/L Anion Gap mmol/L BUN (7-17) mg/dL Creatinine (0.52-1.04) mg/dL Est GFR (CKD-EPI)AfAm (>60 ml/min/1.73 sqM) Est GFR (CKD-EPI)NonAf (>60 ml/min/1.73 sqM) Glucose (74-99) mg/dL POC Glucose (mg/dL) (70-110) mg/dL POC Glu Nitroglycerin Supervisor ID Lactic Ac Sepsis Rflx Plasma Lactic Acid Srinivas 1.4 (0.7-2.0) mmol/L Calcium (8.4-10.2) mg/dL Total Bilirubin (0.2-1.3) mg/dL AST (14-36) U/L ALT (4-34) U/L Alkaline Phosphatase (38-126) U/L Ammonia (<30) umol/L Troponin I (0.000-0.034) ng/mL Total Protein (6.3-8.2) g/dL Albumin (3.5-5.0) g/dL Urine Color Urine Appearance (Clear) Urine pH (5.0-8.0) Ur Specific [place] (1.001-1.035) Urine Protein (Negative) Urine Glucose (UA) (Negative) Urine Ketones (Negative) Urine Blood (Negative) Urine Nitrite (Negative) Urine Bilirubin (Negative) Urine Urobilinogen (<2.0) mg/dL Ur Leukocyte Esterase (Negative) Urine RBC (0-5) /hpf Urine WBC (0-5) /hpf Urine Bacteria (None) /hpf Urine Mucus (None) /hpf CSF Tube Number CSF Volume CSF Appearance CSF Color CSF RBC (0-10) u/L CSF Tot Nucleated Cells (0-5) u/L CSF Glucose (40-70) mg/dL CSF Total Protein (12-60) mg/dL Urine Opiates Screen (NotDetected) Ur Oxycodone Screen (NotDetected) Urine Methadone Screen (NotDetected) Ur Propoxyphene Screen (NotDetected) Ur Barbiturates Screen (NotDetected) U Tricyclic Antidepress (NotDetected) Ur Phencyclidine Scrn (NotDetected) Ur Amphetamines Screen (NotDetected) U Methamphetamines Scrn (NotDetected) U Benzodiazepines Scrn (NotDetected) Urine Cocaine Screen (NotDetected) U Marijuana (THC) Screen (NotDetected) Serum Alcohol mg/dL HSV I DNA PCR (Not detected) HSV II DNA PCR (Not detected) HSV (PCR) Source Critical Care Time Critical Care Time: Yes Total Critical Care Time: 32 <Robinson He - Last Filed: 05/29/22 11:29> Critical Care Time: Yes <Dilan Collier - Last Filed: 05/31/22 12:56> Disposition Is patient prescribed a controlled substance at d/c from ED?: No Time of Disposition: 11:34 <Robinson He - Last Filed: 05/29/22 11:29> <Dilan Collier - Last Filed: 05/31/22 12:56> Clinical Impression: Altered mental status, Sepsis, Polysubstance abuse Disposition: ADMITTED IP TO THIS HOSP Condition: Serious
[2022-05-29 04:55] LABS: Glucose,Whole Blood 109 mg/dL (70-110)
[2022-05-29 05:12] LABS: HCT 42.1 % (34.0-46.0); HGB 13.7 gm/dL (11.4-16.0); MCH 27.2 pg (25.0-35.0); MCHC 32.5 g/dL (31.0-37.0); MCV 83.9 fL (80.0-100.0); Mean Platelet Volume 7.8; Platelet Count 252 k/uL (150-450); RBC 5.02 m/uL (3.80-5.40); RDW 12.9 % (11.5-15.5); WBC 32.4 k/uL (3.8-10.6)
[2022-05-29 05:21] LABS: Appearance,Urine Clear (Clear); Bacteria,Urine Rare /hpf; Bilirubin,Urine Negative (Negative); Blood,Urine Large (Negative); Color,Urine Yellow; Glucose,Urine (UA) Negative (Negative); Ketones,Urine 1+ (Negative); Leukocyte Esterase,Urine Negative (Negative); Mucus,Urine Rare /hpf; Nitrite,Urine Negative (Negative); Protein,Urine 3+ (Negative); RBC,Urine 58 /hpf (0-5); Specific Gravity,Urine 1.025 (1.001-1.035); Urobilinogen,Urine <2.0 mg/dL (<2.0); WBC,Urine 4 /hpf (0-5)
[2022-05-29 05:22] LABS: Amphetamine Screen,Urine Not Detected (NotDetected); Barbiturate Screen,Urine Not Detected (NotDetected); Benzodiazepines Screen,Urine Detected (NotDetected); Cocaine Screen,Urine Not Detected (NotDetected); Methadone Screen, Urine Not Detected (NotDetected); Opiate Screen,Urine Detected (NotDetected); Oxycodone Screen, Urine Detected (NotDetected); Phencyclidine Screen,Urine Not Detected (NotDetected); Tricyclic Antidepressant,Urine Detected (NotDetected); Urn Cannabinoid Scrn Detected (NotDetected)
[2022-05-29 05:23] LABS: INR 1.5 (<1.2); Partial Thromboplastin Time 26.9 sec (22.0-30.0); Prothrombin Time 15.2 sec (9.0-12.0)
[2022-05-29 05:43] LABS: African American GFR (CKD) >90 (>60 ml/min/1.73 sqM); Albumin 3.8 g/dL (3.5-5.0); Alcohol <10 mg/dL; Anion Gap 12 mmol/L; Blood Urea Nitrogen 20 mg/dL (7-17); Calcium 8.6 mg/dL (8.4-10.2); Chloride 88 mmol/L (98-107); Glucose 103 mg/dL (74-99); Non-African American GFR(CKD) >90 (>60 ml/min/1.73 sqM); Potassium 3.8 mmol/L (3.5-5.1); Sodium 133 mmol/L (137-145); Total Bilirubin 0.8 mg/dL (0.2-1.3); Total Protein 6.7 g/dL (6.3-8.2)
[2022-05-29 05:53] LABS: Band Neutrophils % 35 %; Lymphocytes # (M) 2.92 k/uL (1.0-4.8); Metamyelocytes # (M) 0.32 k/uL (0); Metamyelocytes % 1 %; Monocytes # (M) 1.94 k/uL (0-1.0); Neutrophils % (M) 49 %; Nucleated Red Blood Cells 0 /100 WBC (0-0)
[2022-05-29 05:54] LABS: Total Cells Counted 200; Toxic Granulation Present; Toxic Vacuolation Present
[2022-05-29 06:00] LABS: ALT 31 U/L (4-34); AST 38 U/L (14-36); Alkaline Phosphatase 94 U/L (38-126); Carbon Dioxide 33 mmol/L (22-30)
[2022-05-29 06:09] LABS: VBG PH 7.62 (7.31-7.41)
--- NOTE | 2022-05-29 06:30 | XR ---
EXAMINATION TYPE: XR chest 1V portable DATE OF EXAM: 05/29/2022 COMPARISON: 03/28/2022 HISTORY: Altered mental status TECHNIQUE: Single view FINDINGS: Heart and mediastinum are normal. There are chest leads. Costophrenic angles are clear. The re are no hilar masses. There is increased density over the left lateral lung field that is probably artifact. IMPRESSION: Increased density over the left lung field likely overlying soft tissue. No definite card iopulmonary disease.
[2022-05-29] MEDS ORDERED: LORazepam 2 MG/ML INJ IV STA ×2 (06:58→08:27)
[2022-05-29 07:14] LABS: Lactic Acid, Venous 5.6 mmol/L (0.7-2.0)
[2022-05-29] MEDS ORDERED: SODIUM CHLORIDE 0.9% 500 ML 500 ML IV STA (07:15)
[2022-05-29] MEDS ORDERED: SODIUM CHLORIDE 0.9% 1,000 ML IV STA ×2 (07:15→10:04)
[2022-05-29] MEDS ORDERED: SODIUM CHLORIDE 0.9% 1,000 ML IV ONE (07:15)
[2022-05-29] MEDS ORDERED: KETAMINE 10 MG/ML 20 ML VIAL IV ONE (07:36)
[2022-05-29] MEDS ORDERED: KETAMINE HCL IN 0.9 % NACL 50 MG/5 ML SYRINGE IV ONE ×2 (08:00→08:45)
[2022-05-29] MEDS ORDERED: LIDOCAINE 1% INJ 10MG/ML (30 ML VIAL-PF) SQ STA (08:30)
--- NOTE | 2022-05-29 08:34 | CT ---
EXAMINATION TYPE: CT brain wo con DATE OF EXAM: 05/29/2022 COMPARISON: 12/05/2020 HISTORY: AMS CT DLP: 1247.[address] of the brain was performed. The ventricles, basal cisterns and sulci overlying the cerebral convexities demonstrate a normal appe arance. There is no evidence for intracranial hemorrhage or sulcal effacement. No mass effects are seen. Osseous calvarium is intact. If symptoms persist consider MRI as clinically warranted. IMPRESSION: 1. No acute intracranial process is seen at this time.
[2022-05-29 09:42] LABS: Glucose,CSF 62 mg/dL (40-70); Total Protein,CSF 44 mg/dL (12-60)
[2022-05-29] MEDS ORDERED: VANCOMYCIN IV PER PHARMACY 1 EACH MISC MISCELLANE PRN (10:54)
[2022-05-29] MEDS ORDERED: ACETAMINOPHEN SUPPOSITORY 650 MG SUPP RECTAL STA (10:57)
[2022-05-29 11:29] LABS: Appearance,CSF Clear; CSF Tube Number 4; CSF Tube Volume 0.5; Nucleated Cells, CSF 3 u/L (0-5); Red Blood Cell,CSF 2 u/L (0-10)
[2022-05-29] MEDS ORDERED: VANCOMYCIN 1,500 MG in SODIUM CHLORIDE 0.9% 500 ML 500 ML IVPB ONE (11:30)
[2022-05-29] MEDS ORDERED: NALOXONE 0.4 MG/ML 1 ML VIAL IV PRN (11:34)
[2022-05-29] MEDS: SODIUM CHLORIDE 0.9% 1,000 ML IV SCH (11:56)
[2022-05-29] MEDS ORDERED: levETIRAcetam IV 1,500 MG in SALINE 1 100ML.BAG IVPB STA (14:31)
--- NOTE | 2022-05-29 14:37 | P.CNNES ---
History of Present Illness Consult date: 05/29/22 Reason for Consult: acute mental status change History of Present Illness: The patient is a 47-year-old female who is seen in neurologic consultation on May 29, 2022, via teleneurology. The patient is being seen because of acute mental status changes. History is obtained entirely from the chart. The patient is unable to provide any history. Per review of the emergency department note, the patient was brought in by family because of mental status changes. She apparently was found in the bathroom, incontinent of stool and confused. In review of the chart, the patient has a reported history of seizure disorder. The emergency department note indicates that the patient stopped taking all of her home medications. CT scan of the brain performed in the emergency department revealed no signs of acute hemorrhage or infarct. Because of the patient's markedly elevated white blood cell count, fever, tachycardia and hypotension, the patient was diagnosed with sepsis/shock. A lumbar puncture was performed. The current available res ults indicate that there are 3 white cells, 2 red cells, glucose 62 and protein 44. Urine drug screen was positive for opiates,oxycodone, tricyclic antidepressants, benzodiazepines and THC. Lactic acid is elevated at 5.6. White blood cell count is elevated at 32.4. 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 IBS, cellulitis of the chin, History of Any Multi-Drug Resistant Organisms: MRSA Date of last positivie culture/infection: 07/2016 MDRO Source:: [facility] [place] Past Surgical History: Appendectomy, Section, Cholecystectomy, Hyster ectomy, Tubal Ligation Additional Past Surgical History / Comment(s): oral surgery . Pancreas biopsy May 2015. Past Anesthesia/Blood Transfusion Reactions: No Reported Reaction Past Psychological History: ADD/ADHD, Anxiety, Bipolar, Depression Smoking Status: Current every day smoker Past Alcohol Use History: None Reported Past Drug Use History: Marijuana - Past Family History Father History Unknown: Yes Family Medical History: No Reported History Additional Family Medical History / Comment(s): ADOPTED Medications and Allergies Home Medications Medication Instructions Recorded Confirmed Type Spironolactone [Aldactone] 25 mg PO DAILY 02/05/17 05/29/22 History Citalopram Hydrobromide [CeleXA] 40 mg PO DAILY 06/12/19 05/29/22 History Dicyclomine [Bentyl] 10 mg PO QID PRN 05/28/20 05/29/22 History levETIRAcetam [Keppra] 500 mg PO DAILY 02/24/21 05/29/22 History rOPINIRole HCL [Requip] 0.25 mg PO HS 02/24/21 05/29/22 History carvediloL [Coreg] 25 mg PO BID 03/26/21 05/29/22 History Albuterol Sulfate [Proventil Hfa] 2 puff INHALATION RT-Q4H PRN 10/22/21 05/29/22 History Ergocalciferol [Vitamin D2 (1250 1,250 mcg PO MO 10/22/21 05/29/22 History Mcg = 14117 Iu)] Magnesium Oxide [Magox 400] 400 mg PO DAILY 30 Days #30 tablet 10/22/21 05/29/22 Rx amLODIPine [Norvasc] 5 mg PO DAILY 30 Days #30 tab 10/22/21 05/29/22 Rx oxyCODONE-APAP 10-325MG [Percocet 1 tab PO TID PRN 03/16/22 05/29/22 History 10-325 mg] Ondansetron Odt [Zofran Odt] 4 mg PO Q8HR PRN #12 tab 03/28/22 05/29/22 Rx Naloxone HCl [Narcan] 4 mg NASAL ONCE PRN 05/29/22 05/29/22 History Allergies Allergy/AdvReac Type Severity Reaction Status Date / Time adhesive Allergy Rash/Hives Verified 05/29/22 14:21 amoxicillin Allergy Anaphylaxis Verified 05/29/22 14:21 azithromycin [From Zithromax] Allergy Anaphylaxis Verified 05/29/22 14:21 cephalexin monohydrate Allergy Anaphylaxis Verified 05/29/22 14:21 [From Keflex] ciprofloxacin Allergy Anaphylaxis Verified 05/29/22 14:21 clindamycin Allergy Anaphylaxis Verified 05/29/22 14:21 Iodinated Contrast Media Allergy Anaphylaxis Verified 05/29/22 14:21 [Iodinated Contrast- Oral and IV Dye] levofloxacin [From Levaquin] Allergy Rash/Hives Verified 05/29/22 14:21 naproxen Allergy Anaphylaxis Verified 05/29/22 14:21 NSAIDS (Non-Steroidal Allergy Rash/Hives Verified 05/29/22 14:21 Anti-Inflamma shellfish derived Allergy Anaphylaxis Verified 05/29/22 14:21 Sulfa (Sulfonamide Allergy Anaphylaxis Verified 05/29/22 14:21 Antibiotics) sulfamethoxazole Allergy Anaphylaxis Verified 05/29/22 14:21 [From Bactrim] tramadol Allergy Unknown Verified 05/29/22 14:21 trimethoprim [From Bactrim] Allergy Anaphylaxis Verified 05/29/22 14:21 Physical Examination - Vital Signs Vital Signs: Vital Signs Temp Pulse Resp BP Pulse Ox 05/29/22 12:09 102.2 F H 115 H 26 H 121/64 97 05/29/22 11:19 102.9 F H 112 H 36 H 126/68 97 05/29/22 10:44 114 H 26 H 113/73 96 05/29/22 09:15 115 H 28 H 125/87 99 05/29/22 08:32 109 H 30 H 109/74 96 05/29/22 08:06 109 H 28 H 143/79 97 05/29/22 07:38 101.1 F H 111 H 30 H 126/78 9 L 05/29/22 06:12 115/74 05/29/22 06:10 105 H 20 96 05/29/22 05:01 104 H 24 95 05/29/22 04:49 98.1 F 105 H 26 H 143/85 91 L Intake and Output 05/28/22 05/29/22 05/29/22 22:59 06:59 14:59 Output Total 250 Balance -250 Output: Urine 250 Uretheral (Gonzalez) 250 Other: Weight 90.718 kg The examination is limited Gen.: The patient is in mild distress. She is agitated and moving frequently in the bed. She is obese. HEENT: Head is atraumatic, normocephalic. Fundus not visualized. There is no scleral icterus. Mucous membranes are moist. Neck: Carotids are not auscultated secondary to agitation. The patient is observed to flexing and extending her neck without difficulty Heart: Regular rate and rhythm Extremities: Without edema Neurological examination Mental status: The patient is awake and moving in the bed. She is nonverbal. She follows no commands. Cranial nerves: Pupils are equal at 8 mm and sluggishly reactive. There is visual tracking. The patient does blink to threat. There is no obvious facial asymmetry. Motor: Formal strength testing is unable to be carried out. The patient is observed moving all 4 extremities equally. Sensation: The patient does withdraw from noxious stimulation Deep tendon reflexes: Difficult to assess secondary to agitation of patient Coordination: Unable to be assessed secondary to mental status of patient Results - Laboratory Findings CBC and BMP: 05/29/22 05:00 05/29/22 05:00 Abnormal Lab Findings: Abnormal Labs 05/29/22 05/29/22 05/29/22 05:00 05:00 05:00 WBC 32.4 H Neutrophils # (Manual) 27.20 H Monocytes # (Manual) 1.94 H Metamyelocytes # (Man) 0.32 H PT 15.2 H INR 1.5 H VBG pH VBG pCO2 VBG HCO3 Sodium Chloride Carbon Dioxide BUN Glucose Plasma Lactic Acid Srinivas AST Urine Protein Urine Ketones Urine Blood Urine RBC Urine Bacteria Urine Mucus Urine Opiates Screen Detected H Ur Oxycodone Screen Detected H U Tricyclic Antidepress Detected H U Benzodiazepines Scrn Detected H U Marijuana (THC) Screen Detected H 05/29/22 05/29/22 05/29/22 05:00 05:00 05:00 WBC Neutrophils # (Manual) Monocytes # (Manual) Metamyelocytes # (Man) PT INR VBG pH VBG pCO2 VBG HCO3 Sodium 133 L Chloride 88 L Carbon Dioxide 33 H BUN 20 H Glucose 103 H Plasma Lactic Acid Srinivas 5.6 H* AST 38 H Urine Protein 3+ H Urine Ketones 1+ H Urine Blood Large H Urine RBC 58 H Urine Bacteria Rare H Urine Mucus Rare H Urine Opiates Screen Ur Oxycodone Screen U Tricyclic Antidepress U Benzodiazepines Scrn U Marijuana (THC) Screen 05/29/22 05:50 WBC Neutrophils # (Manual) Monocytes # (Manual) Metamyelocytes # (Man) PT INR VBG pH 7.62 H* VBG pCO2 33 L VBG HCO3 34 H Sodium Chloride Carbon Dioxide BUN Glucose Plasma Lactic Acid Srinivas AST Urine Protein Urine Ketones Urine Blood Urine RBC Urine Bacteria Urine Mucus Urine Opiates Screen Ur Oxycodone Screen U Tricyclic Antidepress U Benzodiazepines Scrn U Marijuana (THC) Screen Assessment and Plan Assessment: 1. Severe confusion with markedly elevated white blood cell count, positive urine drug screen, elevated lactic acid level-toxic metabolic encephalopathy, possible breakthrough seizure 2. Medical noncompliance Plan: 1. EEG 2. Load patient with 1500 mg of Keppra IV, continue maintenance dose 500 mg IV every 12hours 3. Agree with infectious disease consultation 4. Seizure precautions Thank you for allowing us to participate in the care of this patient Time with Patient: Greater than 30 (spent 20 minutes examining the patient in the emergency department holding area. Spent another 30 minutes reviewing labs, documentation from this admission and previous admissions and preparing this note)
--- NOTE | 2022-05-29 15:17 | P.HPIM ---
History of Present Illness H&P Date: 05/29/22 Chief Complaint: Altered mental status 47-year-old woman brought by EMS to have evaluation of altered mental status. Patient reportedly had not taken her home medication for some period of time. Family reported that she had gone to use bathroom and then appears to have had bowel incontinence. They phoned EMS who brought her here. Patient not able to provide any history, appears very delirious. The emergency department note indicates that the patient stopped taking all of her home medications. CT scan of the brain performed in the emergency department revealed no signs of acute hemorrhage or infarct. Because of the patient's markedly elevated white blood cell count, fever, tachycardia and hypotension, the patient was diagnosed with sepsis/shock. A lumbar puncture was performed. The current available results indicate that there are 3 white cells, 2 red cells, glucose 62 and protein 44. Urine drug screen was positive for opiates,oxycodone, tricyclic antidepressants, benzodiazepines and THC. Lactic acid is elevated at 5.6. White blood cell count is elevated at 32.4. 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 IBS, cellulitis of the chin, History of Any Multi-Drug Resistant Organisms: MRSA Date of last positivie culture/infection: 07/2016 MDRO Source:: [facility] Past Surgical History: Appendectomy, Section, Cholecystectomy, Hysterectomy, Tubal Ligation Additional Past Surgical History / Comment(s): oral surgery . Pancreas biopsy May 2015. Past Anesthesia/Blood Transfusion Reactions: No Reported Reaction Past Psychological History: ADD/ADHD, Anxiety, Bipolar, Depression Smoking Status: Current every day smoker Past Alcohol Use History: None Reported Past Drug Use History: Marijuana - Past Family History Father History Unknown: Yes Family Medical History: No Reported History Additional Family Medical History / Comment(s): ADOPTED Medications and Allergies Home Medications Medication Instructions Recorded Confirmed Type Spironolactone [Aldactone] 25 mg PO DAILY 02/05/17 05/29/22 History Citalopram Hydrobromide [CeleXA] 40 mg PO DAILY 06/12/19 05/29/22 History Dicyclomine [Bentyl] 10 mg PO QID PRN 05/28/20 05/29/22 History levETIRAcetam [Keppra] 500 mg PO DAILY 02/24/21 05/29/22 History rOPINIRole HCL [Requip] 0.25 mg PO HS 02/24/21 05/29/22 History carvediloL [Coreg] 25 mg PO BID 03/26/21 05/29/22 History Albuterol Sulfate [Proventil Hfa] 2 puff INHALATION RT-Q4H PRN 10/22/21 05/29/22 History Ergocalciferol [Vitamin D2 (1250 1,250 mcg PO MO 10/22/21 05/29/22 History Mcg = 52732 Iu)] Magnesium Oxide [Magox 400] 400 mg PO DAILY 30 Days #30 tablet 10/22/21 05/29/22 Rx amLODIPine [Norvasc] 5 mg PO DAILY 30 Days #30 tab 10/22/21 05/29/22 Rx oxyCODONE-APAP 10-325MG [Percocet 1 tab PO TID PRN 03/16/22 05/29/22 History 10-325 mg] Ondansetron Odt [Zofran Odt] 4 mg PO Q8HR PRN #12 tab 03/28/22 05/29/22 Rx Naloxone HCl [Narcan] 4 mg NASAL ONCE PRN 05/29/22 05/29/22 History Allergies Allergy/AdvReac Type Severity Reaction Status Date / Time adhesive Allergy Rash/Hives Verified 05/29/22 14:21 amoxicillin Allergy Anaphylaxis Verified 05/29/22 14:21 azithromycin [From Zithromax] Allergy Anaphylaxis Verified 05/29/22 14:21 cephalexin monohydrate Allergy Anaphylaxis Verified 05/29/22 14:21 [From Keflex] ciprofloxacin Allergy Anaphylaxis Verified 05/29/22 14:21 clindamycin Allergy Anaphylaxis Verified 05/29/22 14:21 Iodinated Contrast Media Allergy Anaphylaxis Verified 05/29/22 14:21 [Iodinated Contrast- Oral and IV Dye] levofloxacin [From Levaquin] Allergy Rash/Hives Verified 05/29/22 14:21 naproxen Allergy Anaphylaxis Verified 05/29/22 14:21 NSAIDS (Non-Steroidal Allergy Rash/Hives Verified 05/29/22 14:21 Anti-Inflamma shellfish derived Allergy Anaphylaxis Verified 05/29/22 14:21 Sulfa (Sulfonamide Allergy Anaphylaxis Verified 05/29/22 14:21 Antibiotics) sulfamethoxazole Allergy Anaphylaxis Verified 05/29/22 14:21 [From Bactrim] tramadol Allergy Unknown Verified 05/29/22 14:21 trimethoprim [From Bactrim] Allergy Anaphylaxis Verified 05/29/22 14:21 Physical Exam Vitals: Vital Signs Temp Pulse Resp BP Pulse Ox 05/29/22 12:09 102.2 F H 115 H 26 H 121/64 97 05/29/22 11:19 102.9 F H 112 H 36 H 126/68 97 05/29/22 10:44 114 H 26 H 113/73 96 05/29/22 09:15 115 H 28 H 125/87 99 05/29/22 08:32 109 H 30 H 109/74 96 05/29/22 08:06 109 H 28 H 143/79 97 05/29/22 07:38 101.1 F H 111 H 30 H 126/78 9 L 05/29/22 06:12 115/74 05/29/22 06:10 105 H 20 96 05/29/22 05:01 104 H 24 95 05/29/22 04:49 98.1 F 105 H 26 H 143/85 91 L Intake and Output 05/28/22 05/29/22 05/29/22 22:59 06:59 14:59 Output Total 250 Balance -250 Output: Urine 250 Uretheral (Gonzalez) 250 Other: Weight 90.718 kg Gen.: The patient is in mild distress. She is agitated and moving frequently in the bed. She is obese. HEENT: Head is atraumatic, normocephalic. Fundus not visualized. There is no scleral icterus. Mucous membranes are moist. Neck: Carotids are not auscultated secondary to agitation. The patient is observed to flexing and extending her neck without difficulty Heart: Regular rate and rhythm Extremities: Without edema Neurological examination Mental status: The patient is awake and moving in the bed. She is nonverbal. She follows no commands. Cranial nerves: Pupils are equal at 8 mm and sluggishly reactive. There is visual tracking. The patient does blink to threat. There is no obvious facial asymmetry. Motor: Formal strength testing is unable to be carried out. The patient is obse rved moving all 4 extremities equally. Sensation: The patient does withdraw from noxious stimulation Deep tendon reflexes: Difficult to assess secondary to agitation of patient Coordination: Unable to be assessed secondary to mental status of patient Results CBC & Chem 7: 05/29/22 05:00 05/29/22 05:00 Labs: Abnormal Lab Results - Last 24 Hours (Table) 05/29/22 05/29/22 05/29/22 Range/Units 05:00 05:00 05:00 WBC 32.4 H (3.8-10.6) k/uL Neutrophils # (Manual) 27.20 H (1.3-7.7) k/uL Monocytes # (Manual) 1.94 H (0-1.0) k/uL Metamyelocytes # (Man) 0.32 H (0) k/uL PT 15.2 H (9.0-12.0) sec INR 1.5 H (<1.2) VBG pH (7.31-7.41) VBG pCO2 (37-51) mmHg VBG HCO3 (24-28) mmol/L Sodium (137-145) mmol/L Chloride (98-107) mmol/L Carbon Dioxide (22-30) mmol/L BUN (7-17) mg/dL Glucose (74-99) mg/dL Plasma Lactic Acid Srinivas (0.7-2.0) mmol/L AST (14-36) U/L Urine Protein (Negative) Urine Ketones (Negative) Urine Blood (Negative) Urine RBC (0-5) /hpf Urine Bacteria (None) /hpf Urine Mucus (None) /hpf Urine Opiates Screen Detected H (NotDetected) Ur Oxycodone Screen Detected H (NotDetected) U Tricyclic Antidepress Detected H (NotDetected) U Benzodiazepines Scrn Detected H (NotDetected) U Marijuana (THC) Screen Detected H (NotDetected) 05/29/22 05/29/22 05/29/22 Range/Units 05:00 05:00 05:00 WBC (3.8-10.6) k/uL Neutrophils # (Manual) (1.3-7.7) k/uL Monocytes # (Manual) (0-1.0) k/uL Metamyelocytes # (Man) (0) k/uL PT (9.0-12.0) sec INR (<1.2) VBG pH (7.31-7.41) VBG pCO2 (37-51) mmHg VBG HCO3 (24-28) mmol/L Sodium 133 L (137-145) mmol/L Chloride 88 L (98-107) mmol/L Carbon Dioxide 33 H (22-30) mmol/L BUN 20 H (7-17) mg/dL Glucose 103 H (74-99) mg/dL Plasma Lactic Acid Srinivas 5.6 H* (0.7-2.0) mmol/L AST 38 H (14-36) U/L Urine Protein 3+ H (Negative) Urine Ketones 1+ H (Negative) Urine Blood Large H (Negative) Urine RBC 58 H (0-5) /hpf Urine Bacteria Rare H (None) /hpf Urine Mucus Rare H (None) /hpf Urine Opiates Screen (NotDetected) Ur Oxycodone Screen (NotDetected) U Tricyclic Antidepress (NotDetected) U Benzodiazepines Scrn (NotDetected) U Marijuana (THC) Screen (NotDetected) 05/29/22 Range/Units 05:50 WBC (3.8-10.6) k/uL Neutrophils # (Manual) (1.3-7.7) k/uL Monocytes # (Manual) (0-1.0) k/uL Metamyelocytes # (Man) (0) k/uL PT (9.0-12.0) sec INR (<1.2) VBG pH 7.62 H* (7.31-7.41) VBG pCO2 33 L (37-51) mmHg VBG HCO3 34 H (24-28) mmol/L Sodium (137-145) mmol/L Chloride (98-107) mmol/L Carbon Dioxide (22-30) mmol/L BUN (7-17) mg/dL Glucose (74-99) mg/dL Plasma Lactic Acid Srinivas (0.7-2.0) mmol/L AST (14-36) U/L Urine Protein (Negative) Urine Ketones (Negative) Urine Blood (Negative) Urine RBC (0-5) /hpf Urine Bacteria (None) /hpf Urine Mucus (None) /hpf Urine Opiates Screen (NotDetected) Ur Oxycodone Screen (NotDetected) U Tricyclic Antidepress (NotDetected) U Benzodiazepines Scrn (NotDetected) U Marijuana (THC) Screen (NotDetected) Assessment and Plan Assessment: 1. Altered mental status with markedly elevated WBC/ toxic metabolic encephalopathy - Possibility of breakthrough seizure per neurology - Patient has been recommended Keppra load with 1500 mg IV 1 followed by 500 mg every 12 hours - Patient remains on seizure precautions 2. Polysubstance abuse; urine drug screen is positive for 3. Possible infectious etiology; WBC is markedly elevated; lactic acid is elevated but trending down to normal; patient was placed on ceftriaxone in ED; ID is consulted and recommending switch to IV antibiotics to is active 2 g IV every 8 hours 4. Hypertension; amlodipine 5 mg daily; Coreg 25 mg twice a day 5. Asthma/COPD; Proventil inhaler when necessary 6. Seizure disorder; has been loaded with Keppra 7. Restless leg syndrome; Requip 0.25 mg daily at bedtime
[2022-05-29] MEDS: AZTREONAM 2 GM in SODIUM CHLORIDE 0.9% 100 ML IVPB SCH (16:29)
[2022-05-29] MEDS ORDERED: ACETAMINOPHEN IV (For NPO) 1,000 MG in EMPTY BAG 1 BAG IVPB STA (16:30)
[2022-05-29 17:07] LABS: Glucose,Whole Blood 123 mg/dL (70-110)
[2022-05-29] MEDS: HALOPERIDOL LACTATE 5 MG/ML 1 ML VIAL IVP PRN (21:29)
--- NOTE | 2022-05-29 23:42 | P.CONS ---
History of Present Illness - Reason for Consult Consult date: 05/29/22 Septic shock Requesting physician: Robinson He - Chief Complaint Mental status changes and unresponsive x one day - History of Present Illness Patient is a 47-year-old female with a past medical history significant for rheumatoid arthritis fibromyalgia seizure disorder patient was brought into the ER for evaluation of mental status changes apparently the patient has not been taking her medication for quite some time patient went to use the bathroom and appears to have a bowel incontinence patient apparently was delirious EMS was called and who brought the patient to the hospital on arrival to the ER patient was afebrile subsequently she did spike a fever of 102.9 F patient was mildly hypoxic and is currently on a 2 L nasal cannula patient did have white count of 32,000 with a left shift creatinine has been normal lactic is five-point 6 repeat is 1.4 liver enzymes are normal did have elevated procalcitonin urine is not significantly positive patient did have LP CSF did have a normal glucose protein and 3 nucleated cells patient did have a CT of the brain negative for any bleed chest x-ray increased density over the left lung likely overlying soft tissue patient did have multiple antibiotic allergies she was started on vancomycin and is not clear if she received Rocephin in the ER or not infectious disease was consulted for further management of antibiotic therapy most information has been obtained from review of the chart talking nursing staff as the patient is currently unresponsive and is in for limb restraint and unable to provide any history Review of Systems Positive points has been mentioned in HPI complete review could not be obtained because of his underlying mental status Past Medical History Past Medical History: Asthma, Heart Failure, COPD, CVA/TIA, Fibromyalgia, Hypertension, Pneumonia, Rheumatoid Arthritis (RA), Seizure Disorder, Syncope Additional Past Medical History / Comment(s): 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 IBS, cellulitis of the chin, History of Any Multi-Drug Resistant Organisms: MRSA Year Discovered:: 07/2016 MDRO Source:: [facility] Past Surgical History: Appendectomy, Section, Cholecystectomy, Hysterectomy, Tubal Ligation Additional Past Surgical History / Comment(s): oral surgery . Pancreas biopsy May 2015. Past Anesthesia/Blood Transfusion Reactions: No Reported Reaction Past Psychological History: ADD/ADHD, Anxiety, Bipolar, Depression Smoking Status: Current every day smoker Past Alcohol Use History: None Reported Past Drug Use History: Marijuana - Past Family History Father History Unknown: Yes Family Medical History: No Reported History Additional Family Medical History / Comment(s): ADOPTED Medications and Allergies Home Medications Medication Instructions Recorded Confirmed Type Spironolactone [Aldactone] 25 mg PO DAILY 02/05/17 05/29/22 History Citalopram Hydrobromide [CeleXA] 40 mg PO DAILY 06/12/19 05/29/22 History Dicyclomine [Bentyl] 10 mg PO QID PRN 05/28/20 05/29/22 History rOPINIRole HCL [Requip] 0.25 mg PO HS 02/24/21 05/29/22 History carvediloL [Coreg] 25 mg PO BID 03/26/21 05/29/22 History Albuterol Sulfate [Proventil Hfa] 2 puff INHALATION RT-Q4H PRN 10/22/21 05/29/22 History Ergocalciferol [Vitamin D2 (1250 1,250 mcg PO MO 10/22/21 05/29/22 History Mcg = 75607 Iu)] Magnesium Oxide [Magox 400] 400 mg PO DAILY 30 Days #30 tablet 10/22/21 05/29/22 Rx oxyCODONE-APAP 10-325MG [Percocet 1 tab PO TID PRN 03/16/22 05/29/22 History 10-325 mg] Ondansetron Odt [Zofran ODT] 4 mg PO Q8HR PRN #12 tab 03/28/22 05/29/22 Rx Naloxone HCl [Narcan] 4 mg NASAL ONCE PRN 05/29/22 05/29/22 History Acetaminophen Tab [Tylenol] 650 mg PO Q6HR PRN tab 06/04/22 Rx amLODIPine [Norvasc] 10 mg PO DAILY #30 tab 06/04/22 Rx cefUROXime axetiL [Ceftin] 500 mg PO BID 5 Days #10 tab 06/04/22 Rx levETIRAcetam [Keppra] 500 mg PO Q12HR #60 tab 06/04/22 Rx metroNIDAZOLE [Flagyl] 500 mg PO TID #15 tab 06/04/22 Rx Allergies Allergy/AdvReac Type Severity Reaction Status Date / Time adhesive Allergy Rash/Hives Verified 05/29/22 14:21 amoxicillin Allergy Anaphylaxis Verified 05/29/22 14:21 azithromycin [From Zithromax] Allergy Anaphylaxis Verified 05/29/22 14:21 cephalexin monohydrate Allergy Anaphylaxis Verified 05/29/22 14:21 [From Keflex] ciprofloxacin Allergy Anaphylaxis Verified 05/29/22 14:21 clindamycin Allergy Anaphylaxis Verified 05/29/22 14:21 Iodinated Contrast Media Allergy Anaphylaxis Verified 05/29/22 14:21 [Iodinated Contrast- Oral and IV Dye] levofloxacin [From Levaquin] Allergy Rash/Hives Verified 05/29/22 14:21 naproxen Allergy Anaphylaxis Verified 05/29/22 14:21 NSAIDS (Non-Steroidal Allergy Rash/Hives Verified 05/29/22 14:21 Anti-Inflamma shellfish derived Allergy Anaphylaxis Verified 05/29/22 14:21 Sulfa (Sulfonamide Allergy Anaphylaxis Verified 05/29/22 14:21 Antibiotics) sulfamethoxazole Allergy Anaphylaxis Verified 05/29/22 14:21 [From Bactrim] tramadol Allergy Unknown Verified 05/29/22 14:21 trimethoprim [From Bactrim] Allergy Anaphylaxis Verified 05/29/22 14:21 Physical Exam Vitals: Vital Signs Temp Pulse Resp BP Pulse Ox 05/29/22 12:41 101.2 F H 108 H 22 120/62 98 05/29/22 12:09 102.2 F H 115 H 26 H 121/64 97 05/29/22 11:19 102.9 F H 112 H 36 H 126/68 97 05/29/22 10:44 114 H 26 H 113/73 96 05/29/22 09:15 115 H 28 H 125/87 99 05/29/22 08:32 109 H 30 H 109/74 96 05/29/22 08:06 109 H 28 H 143/79 97 05/29/22 07:38 101.1 F H 111 H 30 H 126/78 9 L 05/29/22 06:12 115/74 05/29/22 06:10 105 H 20 96 05/29/22 05:01 104 H 24 95 05/29/22 04:49 98.1 F 105 H 26 H 143/85 91 L Intake and Output 05/28/22 05/29/22 05/29/22 22:59 06:59 14:59 Output Total 250 Balance -250 Output: Urine 250 Uretheral (Gonzalez) 250 Other: Weight 90.718 kg GENERAL DESCRIPTION: Middle-aged female lying in bed, no distress. No tachypnea or accessory muscle of respiration use. HEENT: Shows Pallor , no scleral icterus. Oral mucous membrane is dry. No pharyngeal erythema or thrush NECK: Trachea central, no thyromegaly. LUNGS: Unlabored breathing. Decreased breath sound at bases. No wheeze or crackle. HEART: S1, S2, regular rate and rhythm. No loud murmur ABDOMEN: Soft, no tenderness , guarding or rigidity, no organomegaly EXTREMITIES: No edema of feet. SKIN: No rash, no masses palpable. NEUROLOGICAL: The patient is lethargic orientation could not be determined Results CBC & Chem 7: 06/02/22 08:01 06/02/22 08:01 Labs: Abnormal Lab Results - Last 24 Hours (Table) 05/29/22 05/29/22 05/29/22 Range/Units 05:00 05:00 05:00 WBC 32.4 H (3.8-10.6) k/uL Neutrophils # (Manual) 27.20 H (1.3-7.7) k/uL Monocytes # (Manual) 1.94 H (0-1.0) k/uL Metamyelocytes # (Man) 0.32 H (0) k/uL PT 15.2 H (9.0-12.0) sec INR 1.5 H (<1.2) VBG pH (7.31-7.41) VBG pCO2 (37-51) mmHg VBG HCO3 (24-28) mmol/L Sodium (137-145) mmol/L Chloride (98-107) mmol/L Carbon Dioxide (22-30) mmol/L BUN (7-17) mg/dL Glucose (74-99) mg/dL Plasma Lactic Acid Srinivas (0.7-2.0) mmol/L AST (14-36) U/L Urine Protein (Negative) Urine Ketones (Negative) Urine Blood (Negative) Urine RBC (0-5) /hpf Urine Bacteria (None) /hpf Urine Mucus (None) /hpf Urine Opiates Screen Detected H (NotDetected) Ur Oxycodone Screen Detected H (NotDetected) U Tricyclic Antidepress Detected H (NotDetected) U Benzodiazepines Scrn Detected H (NotDetected) U Marijuana (THC) Screen Detected H (NotDetected) 05/29/22 05/29/22 05/29/22 Range/Units 05:00 05:00 05:00 WBC (3.8-10.6) k/uL Neutrophils # (Manual) (1.3-7.7) k/uL Monocytes # (Manual) (0-1.0) k/uL Metamyelocytes # (Man) (0) k/uL PT (9.0-12.0) sec INR (<1.2) VBG pH (7.31-7.41) VBG pCO2 (37-51) mmHg VBG HCO3 (24-28) mmol/L Sodium 133 L (137-145) mmol/L Chloride 88 L (98-107) mmol/L Carbon Dioxide 33 H (22-30) mmol/L BUN 20 H (7-17) mg/dL Glucose 103 H (74-99) mg/dL Plasma Lactic Acid Srniivas 5.6 H* (0.7-2.0) mmol/L AST 38 H (14-36) U/L Urine Protein 3+ H (Negative) Urine Ketones 1+ H (Negative) Urine Blood Large H (Negative) Urine RBC 58 H (0-5) /hpf Urine Bacteria Rare H (None) /hpf Urine Mucus Rare H (None) /hpf Urine Opiates Screen (NotDetected) Ur Oxycodone Screen (NotDetected) U Tricyclic Antidepress (NotDetected) U Benzodiazepines Scrn (NotDetected) U Marijuana (THC) Screen (NotDetected) 05/29/22 Range/Units 05:50 WBC (3.8-10.6) k/uL Neutrophils # (Manual) (1.3-7.7) k/uL Monocytes # (Manual) (0-1.0) k/uL Metamyelocytes # (Man) (0) k/uL PT (9.0-12.0) sec INR (<1.2) VBG pH 7.62 H* (7.31-7.41) VBG pCO2 33 L (37-51) mmHg VBG HCO3 34 H (24-28) mmol/L Sodium (137-145) mmol/L Chloride (98-107) mmol/L Carbon Dioxide (22-30) mmol/L BUN (7-17) mg/dL Glucose (74-99) mg/dL Plasma Lactic Acid Srinivas (0.7-2.0) mmol/L AST (14-36) U/L Urine Protein (Negative) Urine Ketones (Negative) Urine Blood (Negative) Urine RBC (0-5) /hpf Urine Bacteria (None) /hpf Urine Mucus (None) /hpf Urine Opiates Screen (NotDetected) Ur Oxycodone Screen (NotDetected) U Tricyclic Antidepress (NotDetected) U Benzodiazepines Scrn (NotDetected) U Marijuana (THC) Screen (NotDetected) Assessment and Plan (1) Sepsis Status: Acute Code(s): A41.9 - SEPSIS, UNSPECIFIED ORGANISM SNOMED Code(s): 24947079 Plan: 1patient presented to hospital with sepsis in this patient who did have fever tachycardia elevated white count patient did have a psych history and apparently has not been taking her medication did have extensive work-up including LP with CSF findings were normal urine is negative some increased density left lung with a question of possible aspiration pneumonia abdominal muscle frontal examination evidence of any cellulitis. 2patient with multiple antibiotic allergies that would limit the number of antibiotics safe to use. 3continue with the vancomycin we will add Azactam to cover for gram-negative while waiting for the work-up to be completed and cultures to be finalized. Overall prognosis remains to be guarded. We will follow on clinical condition and cultures to further adjust medication if needed Thank you for this consultation will follow this patient along with you Time with Patient: Greater than 30
[2022-05-30] MEDS ORDERED: VANCOMYCIN 1,500 MG in SODIUM CHLORIDE 0.9% 500 ML 500 ML IVPB SCH ×2
[2022-05-30] MEDS: SODIUM CHLORIDE 0.9% 1,000 ML IV SCH ×5 (00:04→23:19)
[2022-05-30] MEDS: QUEtiapine 50 MG TAB PO SCH ×3 (00:05→08:47)
[2022-05-30] MEDS: AZTREONAM 2 GM in SODIUM CHLORIDE 0.9% 100 ML IVPB SCH ×4 (00:08→23:21)
[2022-05-30] MEDS: ONDANSETRON 4 MG/2 ML VIAL IVP PRN (02:07)
[2022-05-30] MEDS: HALOPERIDOL LACTATE 5 MG/ML 1 ML VIAL IVP PRN (05:51)
--- NOTE | 2022-05-30 07:12 | XR ---
EXAMINATION TYPE: XR chest 1V portable DATE OF EXAM: 05/30/2022 COMPARISON: 05/29/2022 HISTORY: Fever TECHNIQUE: Single frontal view of the chest is obtained. FINDINGS: Increased density left lower lobe is felt to reflect underlying consolidation. Correlate for pneumoni a. The cardiac silhouette size is within normal limits. The osseous structures are intact. IMPRESSION: 1. Increased density left lower lobe is felt to reflect underlying consolidation. Correlate for pneu monia.
[2022-05-30] MEDS: levETIRAcetam IV 500 MG in SODIUM CHLORIDE 0.9% 100 ML IVPB SCH ×2 (08:45→20:14)
[2022-05-30] MEDS: PANTOPRAZOLE 40 MG/10 ML VIAL IV SCH (08:46)
[2022-05-30 09:23] LABS: ALT 13 U/L (4-34); AST 18 U/L (14-36); African American GFR (CKD) >90 (>60 ml/min/1.73 sqM); Albumin 2.7 g/dL (3.5-5.0); Alkaline Phosphatase 76 U/L (38-126); Anion Gap 5 mmol/L; Blood Urea Nitrogen 19 mg/dL (7-17); Calcium 6.8 mg/dL (8.4-10.2); Carbon Dioxide 32 mmol/L (22-30); Chloride 100 mmol/L (98-107); Glucose 109 mg/dL (74-99); Magnesium 1.1 mg/dL (1.6-2.3); Non-African American GFR(CKD) >90 (>60 ml/min/1.73 sqM); Potassium 3.1 mmol/L (3.5-5.1); Sodium 137 mmol/L (137-145); Total Bilirubin 0.3 mg/dL (0.2-1.3)
[2022-05-30 10:27] LABS: Basophils # (A) 0.1 k/uL (0-0.2); Basophils % (A) 0 %; Eosinophils % (A) 0 %; HCT 33.6 % (34.0-46.0); HGB 10.9 gm/dL (11.4-16.0); Hypochromasia Slight; Lymphocytes % (A) 5 %; MCH 28.1 pg (25.0-35.0); MCHC 32.4 g/dL (31.0-37.0); MCV 86.7 fL (80.0-100.0); Mean Platelet Volume 8.4; Monocytes # (A) 0.7 k/uL (0-1.0); Monocytes % (A) 4 %; Neutrophils # (A) 16.8 k/uL (1.3-7.7); Neutrophils % (A) 89 %; Platelet Count 186 k/uL (150-450); RBC 3.88 m/uL (3.80-5.40); RDW 13.2 % (11.5-15.5); WBC 18.9 k/uL (3.8-10.6)
[2022-05-30] MEDS: VANCOMYCIN 1,500 MG in SODIUM CHLORIDE 0.9% 500 ML 500 ML IVPB SCH ×2 (11:39→20:29)
--- NOTE | 2022-05-30 11:59 | P.PN ---
Subjective Progress Note Date: 05/30/22 The patient is seen in neurologic follow-up on May 30, 2022, via teleneurology. Labs and chart were reviewed. The patient reports having "pain everywhere". The patient denies taking illicit drugs and any home medications. Objective - Vital Signs Vital signs: Vital Signs Temp 99.4 F 05/30/22 08:00 Pulse 101 H 05/30/22 08:00 Resp 20 05/30/22 08:00 BP 122/76 05/30/22 08:00 Pulse Ox 98 05/30/22 08:00 FiO2 Intake & Output 05/29/22 05/30/22 05/30/22 18:59 06:59 18:59 Intake Total 10 10 Output Total 500 401 150 Balance -500 -391 -140 Weight 90.718 kg Intake: IV 10 10 Invasive Line 3 10 10 Output: Urine 500 400 150 Uretheral (Gonzalez) 500 150 150 Urine/Stool Mix 1 Other: Voiding Method Indwelling Catheter Indwelling Catheter # Bowel Movements 2 - Exam Gen.: The patient is awake however, somewhat drowsy. HEENT: Head is atraumatic, normocephalic. Fundus not visualized. There is no scleral icterus. Mucous members are moist. Neck: Supple Neurological examination Mental status: The patient is awake. She is oriented to her name, date of and age. She is oriented to her location. She is able to follow some simple commands. Cranial nerves: 2-12 grossly intact Motor: Mild weakness of the right biceps muscle otherwise, strength is 5/5 - Labs CBC & Chem 7: 05/30/22 08:42 05/30/22 08:42 Labs: Abnormal Lab Results - Last 24 Hours (Table) 05/29/22 05/29/22 05/30/22 Range/Units 13:15 16:31 08:42 WBC (3.8-10.6) k/uL Hgb (11.4-16.0) gm/dL Hct (34.0-46.0) % Neutrophils # (1.3-7.7) k/uL Potassium 3.1 L (3.5-5.1) mmol/L Carbon Dioxide 32 H (22-30) mmol/L BUN 19 H (7-17) mg/dL Creatinine 0.47 L (0.52-1.04) mg/dL Glucose 109 H (74-99) mg/dL POC Glucose (mg/dL) 123 H (70-110) mg/dL Calcium 6.8 L (8.4-10.2) mg/dL Magnesium 1.1 L (1.6-2.3) mg/dL Total Protein 5.0 L (6.3-8.2) g/dL Albumin 2.7 L (3.5-5.0) g/dL Procalcitonin 9.04 H (0.02-0.09) ng/mL 05/30/22 Range/Units 08:42 WBC 18.9 H (3.8-10.6) k/uL Hgb 10.9 L (11.4-16.0) gm/dL Hct 33.6 L (34.0-46.0) % Neutrophils # 16.8 H (1.3-7.7) k/uL Potassium (3.5-5.1) mmol/L Carbon Dioxide (22-30) mmol/L BUN (7-17) mg/dL Creatinine (0.52-1.04) mg/dL Glucose (74-99) mg/dL POC Glucose (mg/dL) (70-110) mg/dL Calcium (8.4-10.2) mg/dL Magnesium (1.6-2.3) mg/dL Total Protein (6.3-8.2) g/dL Albumin (3.5-5.0) g/dL Procalcitonin (0.02-0.09) ng/mL Microbiology - Last 24 Hours (Table) 05/29/22 08:00 Blood Culture - Preliminary Blood No Growth after 24 hours 05/29/22 07:45 Blood Culture - Preliminary Blood No Growth after 24 hours 05/29/22 09:11 CSF Gram Stain - Preliminary Cerebral Spinal Fluid CSF Culture - Preliminary Assessment and Plan Assessment: 1. Severe confusion with markedly elevated white blood cell count, positive urine drug screen, elevated lactic acid level-toxic metabolic encephalopathy, possible breakthrough seizure-mental status has improved today 2. Medical noncompliance 3. CSF is normal. There is no evidence of bacterial or viral infection Plan: 1. EEG 2. Load patient with 1500 mg of Keppra IV, continue maintenance dose 500 mg IV every 12hours 3. Agree with infectious disease consultation 4. Seizure precautions 5. Continue supportive care Dr. Buckley will assume neurologic coverage of this patient as of May 31, 2022 Time with Patient: Less than 30 (spent 10 minutes examining this patient. Spent 10 minutes reviewing labs, documentation and preparing this note)
[2022-05-30] MEDS: CITALOPRAM HYDROBROMIDE 20 MG TAB PO SCH (16:06)
--- NOTE | 2022-05-30 19:33 | P.PN ---
Subjective Progress Note Date: 05/30/22 47-year-old woman brought by EMS to have evaluation of altered mental status. Patient reportedly had not taken her home medication for some period of time. Family reported that she had gone to use bathroom and then appears to have had bowel incontinence. They phoned EMS who brought her here. Patient not able to provide any history, appears very delirious. The emergency department note indicates that the patient stopped taking all of her home medications. CT scan of the brain performed in the emergency department revealed no signs of acute hemorrhage or infarct. Because of the patient's markedly elevated white blood cell count, fever, tachycardia and hypotension, the patient was diagnosed with sepsis/shock. A lumbar puncture was performed. The current available results indicate that there are 3 white cells, 2 red cells, glucose 62 and protein 44. Urine drug screen was positive for opiates,oxycodone, tricyclic antidepressants, benzodiazepines and THC. Lactic acid is elevated at 5.6. White blood cell count is elevated at 32.4. 24 hour interval change 05/30/2022 Patient is more awake and alert this morning; no specific complaints reported Patient has been evaluated by ID for elevated white blood count and possible sepsis; concerns about possible aspiration pneumonia; patient is currently on IV vancomycin and Azactam is admitted for gram-negative coverage while awaiting complete sepsis workup Neurology recommended EEG; CSF is unremarkable; patient has been loaded with Keppra 1500 mg IV with recommendations to continue 500 mg every 12 hours; seizure precautions in place Objective - Vital Signs Vital signs: Vital Signs Temp 98.6 F 05/30/22 16:00 Pulse 98 05/30/22 16:00 Resp 16 05/30/22 16:00 BP 109/64 05/30/22 16:00 Pulse Ox 98 05/30/22 16:00 FiO2 Intake & Output 05/30/22 05/30/22 05/31/22 06:59 18:59 06:59 Intake Total 10 138 Output Total 401 650 Balance -391 -512 Intake: IV 10 20 Invasive Line 3 10 20 Oral 118 Output: Urine 400 650 Uretheral (Gonzalez) 150 150 Urine/Stool Mix 1 Other: Voiding Method Indwelling Catheter Indwelling Catheter # Bowel Movements 2 - Exam Gen.: The patient is awake however, somewhat drowsy. HEENT: Head is atraumatic, normocephalic. Fundus not visualized. There is no scleral icterus. Mucous members are moist. Neck: Supple Neurological examination Mental status: The patient is awake. She is oriented to her name, date of and age. She is oriented to her location. She is able to follow some simple commands. Cranial nerves: 2-12 grossly intact Motor: Mild weakness of the right biceps muscle otherwise, strength is 5/5 - Labs CBC & Chem 7: 05/30/22 08:42 05/30/22 08:42 Labs: Abnormal Lab Results - Last 24 Hours (Table) 05/29/22 05/30/22 05/30/22 Range/Units 13:15 08:42 08:42 WBC 18.9 H (3.8-10.6) k/uL Hgb 10.9 L (11.4-16.0) gm/dL Hct 33.6 L (34.0-46.0) % Neutrophils # 16.8 H (1.3-7.7) k/uL Potassium 3.1 L (3.5-5.1) mmol/L Carbon Dioxide 32 H (22-30) mmol/L BUN 19 H (7-17) mg/dL Creatinine 0.47 L (0.52-1.04) mg/dL Glucose 109 H (74-99) mg/dL Calcium 6.8 L (8.4-10.2) mg/dL Magnesium 1.1 L (1.6-2.3) mg/dL Total Protein 5.0 L (6.3-8.2) g/dL Albumin 2.7 L (3.5-5.0) g/dL Procalcitonin 9.04 H (0.02-0.09) ng/mL Microbiology - Last 24 Hours (Table) 05/29/22 08:00 Blood Culture - Preliminary Blood No Growth after 24 hours 05/29/22 07:45 Blood Culture - Preliminary Blood No Growth after 24 hours 05/29/22 09:11 CSF Gram Stain - Preliminary Cerebral Spinal Fluid CSF Culture - Preliminary Assessment and Plan Assessment: 1. Altered mental status with markedly elevated WBC/ toxic metabolic encephalopathy - Possibility of breakthrough seizure per neurology - Patient has been recommended Keppra load with 1500 mg IV 1 followed by 500 mg every 12 hours - Patient remains on seizure precautions 2. Polysubstance abuse; urine drug screen is positive for 3. Possible infectious etiology; WBC is markedly elevated; lactic acid is elevated but trending down to normal; patient was placed on ceftriaxone in ED; ID is consulted and recommending switch to IV antibiotics to is active 2 g IV every 8 hours 4. Hypertension; amlodipine 5 mg daily; Coreg 25 mg twice a day 5. Asthma/COPD; Proventil inhaler when necessary 6. Seizure disorder; has been loaded with Keppra 7. Restless leg syndrome; Requip 0.25 mg daily at bedtime
[2022-05-30] MEDS: QUEtiapine 100 MG TAB PO SCH (20:30)
--- NOTE | 2022-05-30 23:43 | P.CN ---
Psychiatric Consult - . Consult date: 05/30/22 Consult:: IDENTIFYING DATA: This patient is a 47 year old female with altered mental status REASON FOR REFERRAL: Psychiatry was consulted for AMS HISTORY OF PRESENT ILLNESS: Per chart, "the patient was brought in by family because of mental status changes. She apparently was found in the bathroom, incontinent of stool and confused. In review of the chart, the patient has a reported history of seizure disorder. The emergency department note indicates that the patient stopped taking all of her home medications. CT scan of the brain performed in the emergency department revealed no signs of acute hemorrhage or infarct. Because of the patient's markedly elevated white blood cell count, fever, tachycardia and hypotension, the patient was diagnosed with sepsis/shock. A lumbar puncture was performed. The current available results indicate that there are 3 white cells, 2 red cells, glucose 62 and protein 44. Urine drug screen was positive for opiates,oxycodone, tricyclic antidepressants, benzodiazepines and THC. Lactic acid is elevated at 5.6. White blood cell count is elevated at 32.4." On my assessment today, patient is found asleep in her bed and is agreeable to speak with global technical writer on awakening. She is a historian of uncertain reliability. She is oriented to person, place, time and situation. She reports good mood. She claims she was compliant with her medications at home. At this time, patient denies any suicidal or homical ideation, intent or plan. Patient denies any auditory, visual hallucinations and denies any paranoia or delusions. UDS on arrival was positive for opiates, TCA, benzos and THC. She is a smoker. I spoke with nurse who reports patient was restless and did not sleep well overnight, was given Haldol 2 mg IV x 1 early this morning. PAST PSYCHIATRIC HISTORY: Patient has a a history of bipolar disorder. Psychotropic medications: Seroquel 100 mg daily and 150 mg QHS, Celexa 40 mg daily, prescribed by her PC Dr. Huston Patient denies any previous psychiatric hospitalizations. Patient denies any psychiatric outpatient follow-up. Patient denies any history of suicide attempts in the past. 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 IBS, cellulitis of the chin, History of Any Multi-Drug Resistant Organisms: MRSA Date of last positivie culture/infection: 07/2016 MDRO Source:: chin Past Surgical History: Appendectomy, Section, Cholecystectomy, Hysterectomy, Tubal Ligation Additional Past Surgical History / Comment(s): oral surgery . Pancreas biopsy May 2015. Past Anesthesia/Blood Transfusion Reactions: No Reported Reaction Past Psychological History: ADD/ADHD, Anxiety, Bipolar, Depression Smoking Status: Current every day smoker Past Alcohol Use History: None Reported Past Drug Use History: Marijuana ALLERGIES: as per EMR. CHEMICAL DEPENDENCY HISTORY: as per HPI. FAMILY PSYCHIATRIC/SUBSTANCE USE HISTORY: denies SOCIAL HISTORY: Adopted Lives with her , daughter and son-in-law MENTAL STATUS EXAM: General Appearance: Patient appears to be stated age, overweight, fair hygiene and grooming, wearing hospital gown with fair eye contact. Behavior: Patient is calmly lying in bed without any agitated behavior. Speech: Patient's speech is fluent, soft and non-pressured. Mood/Affect: Patient reports their mood is "good", affect is congruent Suicidality/Homicidality: Patient denies having any suicidal or homicidal ideation intent or plan. Perceptions: Patient denies any visual hallucinations [and denies any auditory hallucinations] Though content/process: There is no evidence of any delusional thought content and thought process is linear and goal-directed. Memory and concentration: AOX3, grossly intact for the purposes of this session. Judgment and insight: Fair IMPRESSIONS: Delirium due to underlying medical condition - resolving Unspecified mood disorder, Bipolar disorder by history Cannabis use disorder Tobacco use disorder PLAN: -At this time patient DOES NOT meet criteria for inpatient psychiatric admission. -Delirium precautions recommended with patient including - avoiding use of narcotics and WASTE HANDLING TECHNICIAN sedatives, limit anticholinergic medications when possible, frequent re-orientation, minimize use of restraints, open window shades during the day and close them at night -Would recommend the following medication changes/additions: Increase Seroquel to 50 mg daily and 100 mg QHS for mood/sleep. Restart Celexa at 20 mg daily for mood. -Communicated plan to patient's nurse -Will continue to follow along -Please contact with any questions. 05/30/22 13:07 05/30/22 13:45 05/30/22 14:52 05/30/22 23:33
[2022-05-31] MEDS ORDERED: VANCOMYCIN TROUGH DUE 1 EACH MISC MISCELLANE ONE (03:00)
[2022-05-31] MEDS: VANCOMYCIN 1,500 MG in SODIUM CHLORIDE 0.9% 500 ML 500 ML IVPB SCH (03:45)
[2022-05-31 08:13] LABS: African American GFR (CKD) >90 (>60 ml/min/1.73 sqM); Non-African American GFR(CKD) >90 (>60 ml/min/1.73 sqM)
[2022-05-31] MEDS: CITALOPRAM HYDROBROMIDE 20 MG TAB PO SCH (08:28)
[2022-05-31] MEDS: QUEtiapine 50 MG TAB PO SCH (08:28)
[2022-05-31] MEDS: levETIRAcetam IV 500 MG in SODIUM CHLORIDE 0.9% 100 ML IVPB SCH (08:29)
[2022-05-31] MEDS: PANTOPRAZOLE 40 MG/10 ML VIAL IV SCH (08:29)
[2022-05-31] MEDS: AZTREONAM 2 GM in SODIUM CHLORIDE 0.9% 100 ML IVPB SCH (08:29)
[2022-05-31] MEDS ORDERED: LIDOCAINE 5% PATCH TOPICAL SCH (09:00)
--- NOTE | 2022-05-31 09:57 | XR ---
EXAMINATION TYPE: XR chest 1V DATE OF EXAM: 05/31/2022 COMPARISON: 05/30/2022 HISTORY: 47 year-old female shortness of breath TECHNIQUE: Single frontal view of the chest is obtained. FINDINGS: Patient is rotated toward the left altering the normal cardiomediastinal contours. Worseni ng extensive airspace opacity left mid and lower lung. Mild patchy density right base also increased. Heart appears normal size. IMPRESSION: Significant worsening in focal airspace disease at the left mid and lower lung. Correlate for pneumon ia.
--- NOTE | 2022-05-31 10:48 | P.PN ---
Subjective Progress Note Date: 05/30/22 Principal diagnosis: Fever likely pneumonia Patient is a 47 year old female with a past medical history significant for bipolar disorder brought into the hospital with mental status changes after the patient was found in the bathroom, patient did have lumbar puncture, CSF exam is not suggestive of meningitis or encephalitis. On today's evaluation that is 05/30/2022, the patient is afebrile the patient is more awake and alert today she is breathing comfortably denies any chest pain she did have a cough not bringing up any sputum no abdominal pain no diarrhea Objective - Vital Signs Vital signs: Vital Signs Temp 99.4 F 05/30/22 08:00 Pulse 101 H 05/30/22 08:00 Resp 20 05/30/22 08:00 BP 122/76 05/30/22 08:00 Pulse Ox 98 05/30/22 08:00 FiO2 Intake & Output 05/29/22 05/30/22 05/30/22 18:59 06:59 18:59 Intake Total 10 10 Output Total 500 401 150 Balance -500 -391 -140 Weight 90.718 kg Intake: IV 10 10 Invasive Line 3 10 10 Output: Urine 500 400 150 Uretheral (Gonzalez) 500 150 150 Urine/Stool Mix 1 Other: Voiding Method Indwelling Catheter Indwelling Catheter # Bowel Movements 2 - Exam GENERAL DESCRIPTION: Middle-age female lying in bed in no distress RESPIRATORY SYSTEM: Unlabored breathing , decreased breath sounds at bases HEART: S1 S2 regular rate and rhythm , ABDOMEN: Soft , no tenderness EXTREMITIES: No edema feet - Labs CBC & Chem 7: 05/30/22 08:42 05/31/22 06:39 Labs: Abnormal Lab Results - Last 24 Hours (Table) 05/29/22 05/29/22 05/30/22 Range/Units 13:15 16:31 08:42 WBC (3.8-10.6) k/uL Hgb (11.4-16.0) gm/dL Hct (34.0-46.0) % Neutrophils # (1.3-7.7) k/uL Potassium 3.1 L (3.5-5.1) mmol/L Carbon Dioxide 32 H (22-30) mmol/L BUN 19 H (7-17) mg/dL Creatinine 0.47 L (0.52-1.04) mg/dL Glucose 109 H (74-99) mg/dL POC Glucose (mg/dL) 123 H (70-110) mg/dL Calcium 6.8 L (8.4-10.2) mg/dL Magnesium 1.1 L (1.6-2.3) mg/dL Total Protein 5.0 L (6.3-8.2) g/dL Albumin 2.7 L (3.5-5.0) g/dL Procalcitonin 9.04 H (0.02-0.09) ng/mL 05/30/22 Range/Units 08:42 WBC 18.9 H (3.8-10.6) k/uL Hgb 10.9 L (11.4-16.0) gm/dL Hct 33.6 L (34.0-46.0) % Neutrophils # 16.8 H (1.3-7.7) k/uL Potassium (3.5-5.1) mmol/L Carbon Dioxide (22-30) mmol/L BUN (7-17) mg/dL Creatinine (0.52-1.04) mg/dL Glucose (74-99) mg/dL POC Glucose (mg/dL) (70-110) mg/dL Calcium (8.4-10.2) mg/dL Magnesium (1.6-2.3) mg/dL Total Protein (6.3-8.2) g/dL Albumin (3.5-5.0) g/dL Procalcitonin (0.02-0.09) ng/mL Microbiology - Last 24 Hours (Table) 05/29/22 08:00 Blood Culture - Preliminary Blood No Growth after 24 hours 05/29/22 07:45 Blood Culture - Preliminary Blood No Growth after 24 hours 05/29/22 09:11 CSF Gram Stain - Preliminary Cerebral Spinal Fluid CSF Culture - Preliminary Assessment and Plan (1) Pneumonia Current Visit: Yes Status: Acute Code(s): J18.9 - PNEUMONIA, UNSPECIFIED ORGANISM SNOMED Code(s): 089585280 Plan: 1patient presented to hospital with sepsis in this patient who did have fever tachycardia elevated white count patient did have a psych history and apparently has not been taking her medication did have extensive work-up including LP with CSF findings were normal urine is negative some increased density left lung with a question of possible aspiration pneumonia abdominal was soft on clinical examination and no evidence of any cellulitis. 2patient with multiple antibiotic allergies that would limit the number of antibiotics safe to use. 3patient to continue with the vancomycin and Azactam while waiting for the cultures to finalize Time with Patient: Less than 30
--- NOTE | 2022-05-31 10:50 | P.PN ---
Subjective Progress Note Date: 05/31/22 Principal diagnosis: Fever likely pneumonia Patient is a 47 year old female with a past medical history significant for bipolar disorder brought into the hospital with mental status changes after the patient was found in the bathroom, patient did have lumbar puncture, CSF exam is not suggestive of meningitis or encephalitis. On today's evaluation that is 05/31/2022, the patient fever is resolved, patient is breathing comfortably on 2 L nasal cannula, the patient denies any chest pain she did have a cough not bringing up any sputum no abdominal pain no diarrhea Objective - Vital Signs Vital signs: Vital Signs Temp 97.9 F 05/31/22 08:26 Pulse 94 05/31/22 08:26 Resp 18 05/31/22 08:26 BP 151/92 05/31/22 08:26 Pulse Ox 96 05/31/22 08:26 FiO2 Intake & Output 05/30/22 05/31/22 05/31/22 18:59 06:59 18:59 Intake Total 138 1740 0 Output Total 650 Balance -512 1740 0 Intake: IV 20 Invasive Line 3 20 Intake, IV Titration 1740 Amount Aztreonam 2 gm In Sodium 100 Chloride 0.9% 100 ml @ 33 .3 mls/hr IVPB Q8HR [facility] Rx#:[id number] Sodium Chloride 0.9% 1, 1040 000 ml @ 130 mls/hr IV . Q7H42M [facility] Rx#:[id number] Vancomycin 1,500 mg In 500 Sodium Chloride 0.9% 500 ml 500 ml @ 167 mls/hr IVPB Q12H [facility] Rx#: [id number] levETIRAcetam IV 500 mg 100 In Sodium Chloride 0.9% 100 ml @ 400 mls/hr IVPB Q12HR [facility] Rx#:[id number] Oral 118 0 Output: Urine 650 Uretheral (Gonzalez) 150 Other: Voiding Method Indwelling Catheter Toilet # Voids 1 # Bowel Movements 2 - Exam GENERAL DESCRIPTION: Middle-age female lying in bed in no distress RESPIRATORY SYSTEM: Unlabored breathing , decreased breath sounds at bases HEART: S1 S2 regular rate and rhythm , ABDOMEN: Soft , no tenderness EXTREMITIES: No edema feet - Labs CBC & Chem 7: 05/30/22 08:42 05/31/22 06:39 Labs: Abnormal Lab Results - Last 24 Hours (Table) 05/31/22 Range/Units 06:39 Creatinine 0.41 L (0.52-1.04) mg/dL Microbiology - Last 24 Hours (Table) 05/29/22 07:45 Blood Culture - Preliminary Blood No Growth after 48 hours 05/29/22 08:00 Blood Culture - Preliminary Blood No Growth after 48 hours 05/29/22 09:11 CSF Gram Stain - Preliminary Cerebral Spinal Fluid CSF Culture - Preliminary Assessment and Plan (1) Pneumonia Current Visit: Yes Status: Acute Code(s): J18.9 - PNEUMONIA, UNSPECIFIED ORGANISM SNOMED Code(s): 431560393 Plan: 1patient presented to hospital with sepsis in this patient who did have fever tachycardia elevated white count patient did have a psych history and apparently has not been taking her medication did have extensive work-up including LP with CSF findings were normal urine is negative some increased density left lung with a question of possible aspiration pneumonia abdominal was soft on clinical examination and no evidence of any cellulitis. 2patient with multiple antibiotic allergies that would limit the number of antibiotics safe to use. 3patient noticed to have slight worsening of the left-sided infiltrate on the chest x-ray this morning, we will discontinue vancomycin and Azactam and start the patient on Invanz and monitor clinical course closely Time with Patient: Less than 30
[2022-05-31] MEDS: oxyCODONE-APAP 5-325MG 1 EACH TAB PO PRN ×2 (10:52→20:53)
[2022-05-31] MEDS: LIDOCAINE 5% PATCH TOPICAL SCH (11:07)
[2022-05-31 11:31] LABS: Appearance,Urine Clear (Clear); Bacteria,Urine Rare /hpf; Bilirubin,Urine Negative (Negative); Blood,Urine Small (Negative); Color,Urine Light Yellow; Glucose,Urine (UA) Negative (Negative); Ketones,Urine Negative (Negative); Leukocyte Esterase,Urine Negative (Negative); Mucus,Urine Rare /hpf; Nitrite,Urine Negative (Negative); Protein,Urine Negative (Negative); RBC,Urine 4 /hpf (0-5); Specific Gravity,Urine 1.008 (1.001-1.035); Squamous Epithelial Cell,Urine 1 /hpf (0-4); Urobilinogen,Urine <2.0 mg/dL (<2.0); WBC,Urine 2 /hpf (0-5)
[2022-05-31] MEDS ORDERED: Potassium Replacement Protocol 1 EACH MISC MISCELLANE PRN (11:32)
--- NOTE | 2022-05-31 12:43 | P.PN ---
Subjective 47-year-old woman brought by EMS to have evaluation of altered mental status. Patient reportedly had not taken her home medication for some period of time. Family reported that she had gone to use bathroom and then appears to have had bowel incontinence. They phoned EMS who brought her here. Patient not able to provide any history, appears very delirious. The emergency department note indicates that the patient stopped taking all of her home medications. CT scan of the brain performed in the emergency department revealed no signs of acute hemorrhage or infarct. Because of the patient's markedly elevated white blood cell count, fever, tachycardia and hypotension, the patient was diagnosed with sepsis/shock. A lumbar puncture was performed. The current available results indicate that there are 3 white cells, 2 red cells, glucose 62 and protein 44. Urine drug screen was positive for opiates,oxycodone, tricyclic antidepressants, benzodiazepines and THC. Lactic acid is elevated at 5.6. White blood cell count is elevated at 32.4. 24 hour interval change 05/30/2022 Patient is more awake and alert this morning; no specific complaints reported Patient has been evaluated by ID for elevated white blood count and possible sepsis; concerns about possible aspiration pneumonia; patient is currently on IV vancomycin and Azactam is admitted for gram-negative coverage while awaiting complete sepsis workup Neurology recommended EEG; CSF is unremarkable; patient has been loaded with Keppra 1500 mg IV with recommendations to continue 500 mg every 12 hours; seizure precautions in place 05/31/2022 Patient today is awake and alert, walking in her room, denies any headache or neurological symptoms however she looks tired and malaise and she is tachypneic with occasional coughing but no chest pain, she reports some dysuria but repeat urinalysis is negative Repeat chest x-ray showed worsening left middle and lower lobe pneumonia. Antibiotics was adjusted today to Invanz. Aztreonam and vancomycin were discontinued Follow-up culture results We will keep monitoring Objective - Vital Signs Vital signs: Vital Signs Temp 97.9 F 05/31/22 08:26 Pulse 94 05/31/22 08:26 Resp 18 05/31/22 08:26 BP 151/92 05/31/22 08:26 Pulse Ox 96 05/31/22 08:26 FiO2 Intake & Output 05/30/22 05/31/22 05/31/22 18:59 06:59 18:59 Intake Total 138 1740 0 Output Total 650 Balance -512 1740 0 Intake: IV 20 Invasive Line 3 20 Intake, IV Titration 1740 Amount Aztreonam 2 gm In Sodium 100 Chloride 0.9% 100 ml @ 33 .3 mls/hr IVPB Q8HR [facility] Rx#:[id number] Sodium Chloride 0.9% 1, 1040 000 ml @ 130 mls/hr IV . Q7H42M [facility] Rx#:[id number] Vancomycin 1,500 mg In 500 Sodium Chloride 0.9% 500 ml 500 ml @ 167 mls/hr IVPB Q12H [facility] Rx#: [id number] levETIRAcetam IV 500 mg 100 In Sodium Chloride 0.9% 100 ml @ 400 mls/hr IVPB Q12HR [facility] Rx#:[id number] Oral 118 0 Output: Urine 650 Uretheral (Gonzalez) 150 Other: Voiding Method Indwelling Catheter Toilet Toilet # Voids 1 # Bowel Movements 2 - Exam GENERAL: The patient is alert and oriented x3, not in any acute distress. Well developed, well nourished. HEENT: Pupils are round and equally reacting to light. EOMI. No scleral icterus. No conjunctival pallor. Normocephalic, atraumatic. No pharyngeal erythema. No thyromegaly. CARDIOVASCULAR: S1 and S2 present. No murmurs, rubs, or gallops. -PULMONARY: Chest is clear to auscultation, no wheezing or crackles. Tachypneic, decreased breath sounds on the left side ABDOMEN: Soft, nontender, nondistended, normoactive bowel sounds. No palpable organomegaly. MUSCULOSKELETAL: No joint swelling or deformity. EXTREMITIES: No cyanosis, clubbing, or pedal edema. NEUROLOGICAL: Gross neurological examination did not reveal any focal deficits. SKIN: No rashes. no petechiae. - Labs CBC & Chem 7: 05/30/22 08:42 05/31/22 06:39 Labs: Abnormal Lab Results - Last 24 Hours (Table) 05/31/22 05/31/22 Range/Units 06:39 11:12 Creatinine 0.41 L (0.52-1.04) mg/dL Urine Blood Small H (Negative) Urine Bacteria Rare H (None) /hpf Urine Mucus Rare H (None) /hpf Microbiology - Last 24 Hours (Table) 05/29/22 09:11 CSF Gram Stain - Preliminary Cerebral Spinal Fluid CSF Culture - Preliminary 05/29/22 07:45 Blood Culture - Preliminary Blood No Growth after 48 hours 05/29/22 08:00 Blood Culture - Preliminary Blood No Growth after 48 hours Assessment and Plan Assessment: 1. Altered mental status secondary to toxic metabolic encephalopathy 2. Polysubstance abuse; urine drug screen is positive for opioids, oxycodone, tricyclic 100%, benzodiazepines and marijuana 3. Left lower lobe pneumonia, rule out aspiration pneumonia 4. Hypertension; amlodipine 5 mg daily; Coreg 25 mg twice a day 5. Asthma/COPD; Proventil inhaler when necessary 6. Seizure disorder; has been loaded with Keppra 7. Restless leg syndrome; Requip 0.25 mg daily at bedtime Plan: Continue with antibiotic Invanz Monitor breathing pattern Infectious disease team on the case Bronchodilator and pain management Labs and medication were reviewed.. Continue same treatment. Continue with s ymptomatic treatment. Resume home medication. Monitor labs and vitals. DVT and GI prophylaxis. Further recommendations as per clinical course of the patient DVT prophylaxis: Subcutaneous heparin GI Prophylaxis: Pepcid Gait is normal Prognosis is guarded
[2022-05-31] MEDS: POTASSIUM CHLORIDE ER 20 MEQ TAB.ER PO SCH ×2 (12:50→12:51)
[2022-05-31] MEDS: SODIUM CHLORIDE 0.9% 1,000 ML IV SCH ×2 (12:50→20:55)
--- NOTE | 2022-05-31 13:54 | P.PN ---
Progress Note - Text Progress Note Date: 05/31/22 Interval History: Patient was seen resting in bed and was directable and agreeable to speak with data analyst report writer in her room. Currently, the patient is alert and oriented in all spheres. She is denying any suicidal or homicidal ideation, intention, and/or plan. She is not reporting any auditory or visual hallucinations. She is denying any paranoia or other delusions. She remains future and goal oriented with a desire to be discharged. She has been adherent with her medications and is not endorsing any significant side effects. She reports no issues regarding her sleep or her appetite. She expresses thanks for her care. Mental Status Exam: General Appearance: Patient appears to be stated age is alert, directable, and cooperative. Behavior: Patient is calmly seated without any agitated behavior. Speech: Patient's speech is fluent and nonpressured. Mood/Affect: Mood is improving mildly, affect is congruent and euthymic to bright. Suicidality/Homicidality: Patient denies having any suicidal or homicidal ideation intent or plan. Perceptions: Patient denies any visual hallucinations and denies any auditory hallucinations Though content/process: There is no evidence of any delusional thought content and thought process is linear and goal-directed. Patient makes appropriate jokes and laughs appropriately. Memory and concentration: AOX3, grossly intact for the purposes of this session Judgment and insight: Much improved Vital Signs Temp 98.1 F 05/31/22 12:52 Pulse 90 05/31/22 12:52 Resp 18 05/31/22 12:52 BP 157/75 05/31/22 12:52 Pulse Ox 94 L 05/31/22 12:52 FiO2 Intake & Output 05/30/22 05/31/22 05/31/22 18:59 06:59 18:59 Intake Total 138 1740 0 Output Total 650 Balance -512 1740 0 Intake: IV 20 Invasive Line 3 20 Intake, IV Titration 1740 Amount Aztreonam 2 gm In Sodium 100 Chloride 0.9% 100 ml @ 33 .3 mls/hr IVPB Q8HR [facility] Rx#:[id number] Sodium Chloride 0.9% 1, 1040 000 ml @ 130 mls/hr IV . Q7H42M [facility] Rx#:[id number] Vancomycin 1,500 mg In 500 Sodium Chloride 0.9% 500 ml 500 ml @ 167 mls/hr IVPB Q12H [facility] Rx#: [id number] levETIRAcetam IV 500 mg 100 In Sodium Chloride 0.9% 100 ml @ 400 mls/hr IVPB Q12HR [facility] Rx#:[id number] Oral 118 0 Output: Urine 650 Uretheral (Gonzalez) 150 Other: Voiding Method Indwelling Catheter Toilet Toilet # Voids 1 # Bowel Movements 2 Laboratory Results - Last 24 Hours 05/29/22 05/31/22 05/31/22 09:11 03:14 06:39 Creatinine 0.41 L Est GFR (CKD-EPI)AfAm >90 Est GFR (CKD-EPI)NonAf >90 Urine Color Urine Appearance Urine pH Ur Specific Sublimity Urine Protein Urine Glucose (UA) Urine Ketones Urine Blood Urine Nitrite Urine Bilirubin Urine Urobilinogen Ur Leukocyte Esterase Urine RBC Urine WBC Ur Squamous Epith Cells Urine Bacteria Urine Mucus Vancomycin Trough 20.2 HSV I DNA PCR Not detected HSV II DNA PCR Not detected HSV (PCR) Source 05/31/22 11:12 Creatinine Est GFR (CKD-EPI)AfAm Est GFR (CKD-EPI)NonAf Urine Color Light Yellow Urine Appearance Clear Urine pH 6.0 Ur Specific Sublimity 1.008 Urine Protein Negative Urine Glucose (UA) Negative Urine Ketones Negative Urine Blood Small H Urine Nitrite Negative Urine Bilirubin Negative Urine Urobilinogen <2.0 Ur Leukocyte Esterase Negative Urine RBC 4 Urine WBC 2 Ur Squamous Epith Cells 1 Urine Bacteria Rare H Urine Mucus Rare H Vancomycin Trough HSV I DNA PCR HSV II DNA PCR HSV (PCR) Source Assessment Delirium due to underlying medical condition -appears resolved Unspecified mood disorder, Bipolar disorder by history Cannabis use disorder Tobacco use disorder Plan: -At this time patient DOES NOT meet criteria for inpatient psychiatric admission. The patient is not presenting with imminent risk of harm to self or others. She is currently alert and oriented in all spheres. -Delirium precautions recommended with patient including - avoiding use of narcotics and [employer] sedatives, limit anticholinergic medications when possible, frequent re-orientation, minimize use of restraints, open window shades during the day and close them at night -Would recommend the following medication changes/additions: Continue Seroquel 50 mg daily and 100 mg QHS for mood/sleep. Continue Celexa at 20 mg daily for mood. -Communicated plan to patient's nurse -Psychiatry will sign off at this time. The patient is cleared psychiatrically for discharge. Recommend outpatient follow-up. -Please contact with any questions.
[2022-05-31] MEDS ORDERED: VANCOMYCIN 1,500 MG in SODIUM CHLORIDE 0.9% 500 ML 500 ML IVPB SCH (14:00)
[2022-05-31 14:16] VITALS: BMI 33.3
[2022-05-31] MEDS: ERTAPENEM 1 GM in SODIUM CHLORIDE 0.9% 50 ML IVPB SCH (14:16)
--- NOTE | 2022-05-31 14:43 | P.PN ---
Subjective Progress Note Date: 05/31/22 patient was initially seen by Dr. Gillette. Please refer to her note for details. Patient at present is laying comfortably in the bed. She is slightly short of breath. Patient complains of having low back pain, which involves the entire back which is chronic in nature. Before she takes her Percocet (which she has been taking for years), it was 10/10. After the Percocet and goes down to 6/10. Then it comes back up to 8/10 (now). She claims that she has history of rheumatoid arthritis, osteoarthritis and fibromyalgia. patient says that she has history of seizures "off and on" for years. She says these are stress-induced when she gets upset. Her last seizure was about a year ago. She follows up with Dr. Felix Wick. She continues to smoke half pack per day although at present she is cutting back on her tobacco use. Objective - Vital Signs Vital signs: Vital Signs Temp 98.1 F 05/31/22 12:52 Pulse 90 05/31/22 12:52 Resp 18 05/31/22 12:52 BP 157/75 05/31/22 12:52 Pulse Ox 94 L 05/31/22 12:52 FiO2 Intake & Output 05/30/22 05/31/22 05/31/22 18:59 06:59 18:59 Intake Total 138 1740 0 Output Total 650 Balance -512 1740 0 Weight 90.718 kg Intake: IV 20 Invasive Line 3 20 Intake, IV Titration 1740 Amount Aztreonam 2 gm In Sodium 100 Chloride 0.9% 100 ml @ 33 .3 mls/hr IVPB Q8HR [facility] Rx#:[id number] Sodium Chloride 0.9% 1, 1040 000 ml @ 75 mls/hr IV . [id number] [facility] Rx#:[id number] Vancomycin 1,500 mg In 500 Sodium Chloride 0.9% 500 ml 500 ml @ 167 mls/hr IVPB Q12H [facility] Rx#: [id number] levETIRAcetam IV 500 mg 100 In Sodium Chloride 0.9% 100 ml @ 400 mls/hr IVPB Q12HR [facility] Rx#:[id number] Oral 118 0 Output: Urine 650 Uretheral (Gonzalez) 150 Other: Voiding Method Indwelling Catheter Toilet Toilet # Voids 1 1 # Bowel Movements 2 - Exam Patient is alert and awake oriented to time place and person. Speech and language functions are normal. Patient knows it is May 2022 and that she is in [facility] in [facility] and name of the current president. Detail examination deferred. Speech and language functions are normal. Cranial nerves are normal. - Labs CBC & Chem 7: 05/30/22 08:42 05/31/22 06:39 Labs: Abnormal Lab Results - Last 24 Hours (Table) 05/31/22 05/31/22 Range/Units 06:39 11:12 Creatinine 0.41 L (0.52-1.04) mg/dL Urine Blood Small H (Negative) Urine Bacteria Rare H (None) /hpf Urine Mucus Rare H (None) /hpf Microbiology - Last 24 Hours (Table) 05/29/22 09:11 CSF Gram Stain - Preliminary Cerebral Spinal Fluid CSF Culture - Preliminary 05/29/22 07:45 Blood Culture - Preliminary Blood No Growth after 48 hours 05/29/22 08:00 Blood Culture - Preliminary Blood No Growth after 48 hours Assessment and Plan Assessment: 1. Severe confusion with markedly elevated white blood cell count, positive urine drug screen, elevated lactic acid level-toxic metabolic encephalopathy, possible breakthrough seizure-mental status has improved today 2. Medical noncompliance 3. CSF is normal. There is no evidence of bacterial or viral infection 4. Tobacco use 5. Pneumonia Plan: 1. EEG was performed today, which revealed background slowing of at least moderate degree. Also has some forward up. This is suggestive of embolic encephalopathy. No epileptiform activity was seen. 2. Patient has been loaded with 1500 mg of Keppra IV. We will switch to Keppra 500 mg twice a day orally. 3. Agree with infectious disease consultation 4. Seizure precautions 5. Recommend complete tobacco cessation. 6. Recommend follow-up with her neurologist Dr. Wick in 2-4 weeks after disch arge. 7. Neurologically clear for discharge.
[2022-05-31] MEDS ORDERED: oxyCODONE-APAP 5-325MG 1 EACH TAB PO STA (15:21)
[2022-05-31] MEDS: QUEtiapine 100 MG TAB PO SCH (20:51)
[2022-05-31] MEDS: amLODIPine 5 MG TAB PO SCH (20:51)
[2022-05-31] MEDS: HEPARIN SODIUM,PORCINE/PF 5,000 UNIT/0.5 ML SYRINGE SQ SCH (20:51)
[2022-05-31] MEDS: levETIRAcetam 500 MG TAB PO SCH (20:51)
[2022-05-31] MEDS: carvediloL 12.5 MG TAB PO SCH (20:51)
--- NOTE | 2022-06-01 00:34 | EEG ---
ELECTROENCEPHALOGRAM REPORT PREAMBLE: This is a 47-year-old female, who was found on the bathroom floor incontinent of stool and was confused. The patient does have history of asthma, COPD, heart failure, CVA, fibromyalgia, seizure disorder, and syncope, also has anxiety, depression, and bipolar disorder. CURRENT MEDICATIONS: 1. Aztreonam. 2. Celexa. 3. Haldol. 4. Keppra. 5. Seroquel. 6. Vancomycin. EEG FINDINGS: This is a 21-channel digital EEG recorded with video component, utilizing 10/20 international system with referential and bipolar montages. Background consists of moderately well-developed, well-regulated, mixed frequencies of 2 to 3 hertz delta, with some theta activity superimposed on fast frequency beta activity seen in bihemispheric region. Frontal intermittent rhythmic delta activity was seen. Some technical, transient high amplitude sharp artifact was seen regularly every 10 seconds, probably from IV line. Different stages of sleep were not seen. No focal or generalized epileptiform activity was seen. Photic driving response was not seen. Hyperventilation was not done. IMPRESSION: This is an abnormal EEG due to background slowing of at least moderate degree, and presence of frontal intermittent rhythmic delta activity. This is suggestive of generalized cerebral dysfunction as can be seen with toxic metabolic encephalopathy. Clinical correlation is recommended. No epileptiform activity was seen. MMFUENTESL / PIEDADN: [id number] / MTDD
[2022-06-01] MEDS: ACETAMINOPHEN TAB 325 MG TAB PO PRN ×2 (03:21→23:01)
[2022-06-01] MEDS: oxyCODONE-APAP 5-325MG 1 EACH TAB PO PRN ×3 (05:35→21:17)
[2022-06-01 07:44] LABS: Basophils % (A) 0 %; Eosinophils # (A) 0.2 k/uL (0-0.7); Eosinophils % (A) 2 %; Hypochromasia Marked; Lymphocytes # (A) 1.3 k/uL (1.0-4.8); Lymphocytes % (A) 14 %; MCH 27.7 pg (25.0-35.0); MCHC 30.6 g/dL (31.0-37.0); MCV 90.3 fL (80.0-100.0); Mean Platelet Volume 7.5; Monocytes # (A) 0.4 k/uL (0-1.0); Monocytes % (A) 4 %; Neutrophils # (A) 7.2 k/uL (1.3-7.7); Neutrophils % (A) 77 %; Platelet Count 217 k/uL (150-450); RBC 3.98 m/uL (3.80-5.40); RDW 13.3 % (11.5-15.5); WBC 9.3 k/uL (3.8-10.6)
[2022-06-01 08:01] LABS: African American GFR (CKD) >90 (>60 ml/min/1.73 sqM); Anion Gap 2 mmol/L; Blood Urea Nitrogen 4 mg/dL (7-17); Calcium 7.7 mg/dL (8.4-10.2); Carbon Dioxide 34 mmol/L (22-30); Chloride 104 mmol/L (98-107); Glucose 99 mg/dL (74-99); Non-African American GFR(CKD) >90 (>60 ml/min/1.73 sqM); Potassium 3.6 mmol/L (3.5-5.1); Sodium 140 mmol/L (137-145)
[2022-06-01] MEDS: QUEtiapine 50 MG TAB PO SCH (08:22)
[2022-06-01] MEDS: carvediloL 12.5 MG TAB PO SCH ×2 (08:22→20:10)
[2022-06-01] MEDS: amLODIPine 5 MG TAB PO SCH (08:22)
[2022-06-01] MEDS: HEPARIN SODIUM,PORCINE/PF 5,000 UNIT/0.5 ML SYRINGE SQ SCH ×2 (08:22→20:10)
[2022-06-01] MEDS: CITALOPRAM HYDROBROMIDE 20 MG TAB PO SCH (08:22)
[2022-06-01] MEDS: levETIRAcetam 500 MG TAB PO SCH ×2 (08:22→20:10)
[2022-06-01] MEDS: PANTOPRAZOLE 40 MG/10 ML VIAL IV SCH (08:23)
[2022-06-01] MEDS: LIDOCAINE 5% PATCH TOPICAL SCH (08:23)
[2022-06-01] MEDS: ERTAPENEM 1 GM in SODIUM CHLORIDE 0.9% 50 ML IVPB SCH (08:33)
--- NOTE | 2022-06-01 09:47 | P.PN ---
Subjective 47-year-old woman brought by EMS to have evaluation of altered mental status. Patient reportedly had not taken her home medication for some period of time. Family reported that she had gone to use bathroom and then appears to have had bowel incontinence. They phoned EMS who brought her here. Patient not able to provide any history, appears very delirious. The emergency department note indicates that the patient stopped taking all of her home medications. CT scan of the brain performed in the emergency department revealed no signs of acute hemorrhage or infarct. Because of the patient's markedly elevated white blood cell count, fever, tachycardia and hypotension, the patient was diagnosed with sepsis/shock. A lumbar puncture was performed. The current available results indicate that there are 3 white cells, 2 red cells, glucose 62 and protein 44. Urine drug screen was positive for opiates,oxycodone, tricyclic antidepressants, benzodiazepines and THC. Lactic acid is elevated at 5.6. White blood cell count is elevated at 32.4. 24 hour interval change 05/30/2022 Patient is more awake and alert this morning; no specific complaints reported Patient has been evaluated by ID for elevated white blood count and possible sepsis; concerns about possible aspiration pneumonia; patient is currently on IV vancomycin and Azactam is admitted for gram-negative coverage while awaiting complete sepsis workup Neurology recommended EEG; CSF is unremarkable; patient has been loaded with Keppra 1500 mg IV with recommendations to continue 500 mg every 12 hours; seizure precautions in place 05/31/2022 Patient today is awake and alert, walking in her room, denies any headache or neurological symptoms however she looks tired and malaise and she is tachypneic with occasional coughing but no chest pain, she reports some dysuria but repeat urinalysis is negative Repeat chest x-ray showed worsening left middle and lower lobe pneumonia. Antibiotics was adjusted today to Invanz. Aztreonam and vancomycin were discontinued Follow-up culture results We will keep monitoring 06/01/2022 Patient awake and alert 3, she does not look in distress, she still mildly tachypneic and she still on home oxygen via nasal cannula at 2 L/m. No chest pain. Patient is able to move and walk freely. WBC is back to normal. No more fever Patient remains on Invanz for her worsening pneumonia of the left side since yesterday. Also she is on Keppra by neurologist for possible breakthrough seizure. Continue with normal saline 75 mm per hour Objective - Vital Signs Vital signs: Vital Signs Temp 97.9 F 06/01/22 03:56 Pulse 85 06/01/22 08:21 Resp 15 06/01/22 08:21 BP 136/70 06/01/22 09:15 Pulse Ox 97 06/01/22 08:21 FiO2 Intake & Output 05/31/22 06/01/22 06/01/22 18:59 06:59 18:59 Intake Total 0 1040 236 Balance 0 1040 236 Weight 90.718 kg Intake: Intake, IV Titration 1040 Amount Sodium Chloride 0.9% 1, 1040 000 ml @ 75 mls/hr IV . [id number] [facility] Rx#:[id number] Oral 0 236 Other: Voiding Method Toilet Toilet Toilet # Voids 1 1 # Bowel Movements 1 - Exam GENERAL: The patient is alert and oriented x3, not in any acute distress. Well developed, well nourished. HEENT: Pupils are round and equally reacting to light. EOMI. No scleral icterus. No conjunctival pallor. Normocephalic, atraumatic. No pharyngeal erythema. No thyromegaly. CARDIOVASCULAR: S1 and S2 present. No murmurs, rubs, or gallops. -PULMONARY: Chest is clear to auscultation, no wheezing or crackles. Tachypneic, decreased breath sounds on the left side ABDOMEN: Soft, nontender, nondistended, normoactive bowel sounds. No palpable organomegaly. MUSCULOSKELETAL: No joint swelling or deformity. EXTREMITIES: No cyanosis, clubbing, or pedal edema. NEUROLOGICAL: Gross neurological examination did not reveal any focal deficits. SKIN: No rashes. no petechiae. - Labs CBC & Chem 7: 06/01/22 07:28 06/01/22 07:28 Labs: Abnormal Lab Results - Last 24 Hours (Table) 05/31/22 06/01/22 06/01/22 Range/Units 11:12 07:28 07:28 Hgb 11.0 L (11.4-16.0) gm/dL MCHC 30.6 L (31.0-37.0) g/dL Carbon Dioxide 34 H (22-30) mmol/L BUN 4 L (7-17) mg/dL Creatinine 0.38 L (0.52-1.04) mg/dL Calcium 7.7 L (8.4-10.2) mg/dL Urine Blood Small H (Negative) Urine Bacteria Rare H (None) /hpf Urine Mucus Rare H (None) /hpf Microbiology - Last 24 Hours (Table) 05/29/22 09:11 CSF Gram Stain - Preliminary Cerebral Spinal Fluid CSF Culture - Preliminary 05/29/22 07:45 Blood Culture - Preliminary Blood No Growth after 48 hours 05/29/22 08:00 Blood Culture - Preliminary Blood No Growth after 48 hours Assessment and Plan Assessment: 1. Altered mental status secondary to toxic metabolic encephalopathy 2. Polysubstance abuse; urine drug screen is positive for opioids, oxycodone, tricyclic 100%, benzodiazepines and marijuana 3. Left lower lobe pneumonia, rule out aspiration pneumonia 4. Hypertension; amlodipine 5 mg daily; Coreg 25 mg twice a day 5. Asthma/COPD; Proventil inhaler when necessary 6. Seizure disorder; has been loaded with Keppra 7. Restless leg syndrome; Requip 0.25 mg daily at bedtime Plan: Continue with antibiotic Invanz Monitor breathing pattern Infectious disease team on the case Bronchodilator and pain management Continue with Vikram, neurologist on the case. Follow-up with Dr. Wick in 2 weeks after discharge Labs and medication were reviewed.. Continue same treatment. Continue with symptomatic treatment. Resume home medication. Monitor labs and vitals. DVT and GI prophylaxis. Further recommendations as per clinical course of the patient DVT prophylaxis: Subcutaneous heparin GI Prophylaxis: Pepcid Gait is normal Prognosis is guarded
[2022-06-01] MEDS: SODIUM CHLORIDE 0.9% 1,000 ML IV SCH ×2 (10:58→23:00)
[2022-06-01] MEDS: diphenhydrAMINE 25 MG CAP PO PRN ×2 (12:14→20:10)
--- NOTE | 2022-06-01 13:08 | P.PN ---
Subjective Progress Note Date: 06/01/22 06/01/2022: Patient was seen for a follow-up. Patient was asleep. On waking up, patient was alert and awake, fully oriented. Complaining of pain 10. She states that she is receiving less amount of opiates that she prefers. No seizure-like activity or syncopal spells. 05/31/2022: Patient was initially seen by Dr. Gillette. Please refer to her note for details. Patient at present is laying comfortably in the bed. She is slightly short of breath. Patient complains of having low back pain, which involves the entire back which is chronic in nature. Before she takes her Percocet (which she has been taking for years), it was 10/10. After the Percocet and goes down to 6/10. Then it comes back up to 8/10 (now). She claims that she has history of rheumatoid arthritis, osteoarthritis and fibromyalgia. patient says that she has history of seizures "off and on" for years. She says these are stress-induced when she gets upset. Her last seizure was about a year ago. She follows up with Dr. Felix Wick. She continues to smoke half pack per day although at present she is cutting back on her tobacco use. Objective - Vital Signs Vital signs: Vital Signs Temp 97.9 F 06/01/22 03:56 Pulse 85 06/01/22 08:21 Resp 15 06/01/22 08:21 BP 136/70 06/01/22 09:15 Pulse Ox 97 06/01/22 08:21 FiO2 Intake & Output 05/31/22 06/01/22 06/01/22 18:59 06:59 18:59 Intake Total 0 1040 236 Balance 0 1040 236 Weight 90.718 kg Intake: Intake, IV Titration 1040 Amount Sodium Chloride 0.9% 1, 1040 000 ml @ 75 mls/hr IV . [id number] [facility] Rx#:[id number] Oral 0 236 Other: Voiding Method Toilet Toilet Toilet # Voids 1 1 # Bowel Movements 1 - Exam Patient is alert and awake oriented to time place and person. Speech and language functions are normal. Patient knows it is May 2022 and that she is in [facility] in [facility] and name of the current preside nt. Detail examination deferred. Speech and language functions are normal. Cranial nerves are normal. - Labs CBC & Chem 7: 06/01/22 07:28 06/01/22 07:28 Labs: Abnormal Lab Results - Last 24 Hours (Table) 05/31/22 06/01/22 06/01/22 Range/Units 11:12 07:28 07:28 Hgb 11.0 L (11.4-16.0) gm/dL MCHC 30.6 L (31.0-37.0) g/dL Carbon Dioxide 34 H (22-30) mmol/L BUN 4 L (7-17) mg/dL Creatinine 0.38 L (0.52-1.04) mg/dL Calcium 7.7 L (8.4-10.2) mg/dL Urine Blood Small H (Negative) Urine Bacteria Rare H (None) /hpf Urine Mucus Rare H (None) /hpf Microbiology - Last 24 Hours (Table) 05/29/22 08:00 Blood Culture - Preliminary Blood No Growth after 72 hours 05/29/22 07:45 Blood Culture - Preliminary Blood No Growth after 72 hours 05/29/22 09:11 CSF Gram Stain - Preliminary Cerebral Spinal Fluid CSF Culture - Preliminary Assessment and Plan Assessment: 1. Severe confusion with markedly elevated white blood cell count, positive urine drug screen, elevated lactic acid level-toxic metabolic encephalopathy, versus possible breakthrough seizure. Mentation back to normal. 2. Medical noncompliance 3. CSF is normal. There is no evidence of bacterial or viral infection 4. Tobacco use 5. Pneumonia Plan: 1. EEG was performed today, which revealed background slowing of at least moderate degree. Also has some FIRDA. This is suggestive of embolic encephalopathy. No epileptiform activity was seen. 2. Patient has been loaded with 1500 mg of Keppra IV. We will switch to Keppra 500 mg twice a day orally. 4. Seizure precautions 5. Recommend complete tobacco cessation. 6. Recommend follow-up with her neurologist Dr. Wick in 2-4 weeks after discharge. 7. Neurologically clear for discharge.
[2022-06-01] MEDS: QUEtiapine 100 MG TAB PO SCH (20:10)
--- NOTE | 2022-06-01 23:42 | P.PN ---
Subjective Progress Note Date: 06/01/22 Principal diagnosis: Fever likely pneumonia Patient is a 47 year old female with a past medical history significant for bipolar disorder brought into the hospital with mental status changes after the patient was found in the bathroom, patient did have lumbar puncture, CSF exam is not suggestive of meningitis or encephalitis. On today's evaluation that is 06/01/2022, the patient denies any fever or any chills patient is breathing comfortably on 2 L nasal cannula, the patient denies any chest pain the patient did have a cough with occasional sputum production, no abdominal pain no diarrhea Objective - Vital Signs Vital signs: Vital Signs Temp 97.9 F 06/01/22 03:56 Pulse 78 06/01/22 15:41 Resp 15 06/01/22 08:21 BP 157/76 06/01/22 15:41 Pulse Ox 94 L 06/01/22 15:41 FiO2 Intake & Output 06/01/22 06/01/22 06/02/22 06:59 18:59 06:59 Intake Total 1040 476 Balance 1040 476 Intake: Intake, IV Titration 1040 Amount Sodium Chloride 0.9% 1, 1040 000 ml @ 75 mls/hr IV . [id number] [facility] Rx#:[id number] Oral 476 Other: Voiding Method Toilet Toilet # Voids 1 2 # Bowel Movements 1 - Exam GENERAL DESCRIPTION: Middle-age female lying in bed in no distress RESPIRATORY SYSTEM: Unlabored breathing , decreased breath sounds at bases HEART: S1 S2 regular rate and rhythm , ABDOMEN: Soft , no tenderness EXTREMITIES: No edema feet - Labs CBC & Chem 7: 06/01/22 07:28 06/01/22 07:28 Labs: Abnormal Lab Results - Last 24 Hours (Table) 06/01/22 06/01/22 Range/Units 07:28 07:28 Hgb 11.0 L (11.4-16.0) gm/dL MCHC 30.6 L (31.0-37.0) g/dL Carbon Dioxide 34 H (22-30) mmol/L BUN 4 L (7-17) mg/dL Creatinine 0.38 L (0.52-1.04) mg/dL Calcium 7.7 L (8.4-10.2) mg/dL Microbiology - Last 24 Hours (Table) 05/29/22 08:00 Blood Culture - Preliminary Blood No Growth after 72 hours 05/29/22 07:45 Blood Culture - Preliminary Blood No Growth after 72 hours 05/29/22 09:11 CSF Gram Stain - Preliminary Cerebral Spinal Fluid CSF Culture - Preliminary Assessment and Plan (1) Pneumonia Current Visit: Yes Status: Acute Code(s): J18.9 - PNEUMONIA, UNSPECIFIED ORGANISM SNOMED Code(s): 133815414 Plan: 1patient presented to hospital with sepsis in this patient who did have fever tachycardia elevated white count patient did have a psych history and apparently has not been taking her medication did have extensive work-up including LP with CSF findings were normal urine is negative some increased density left lung with a question of possible aspiration pneumonia abdominal was soft on clinical examination and no evidence of any cellulitis. 2patient with multiple antibiotic allergies that would limit the number of antibiotics safe to use. 3patient has show some clinical improvement and the patient white count has normalized. We'll continue the patient on Invanz 1 g daily we will repeat her chest x-ray and inflammatory markers with a.m. lab however keeping in mind her multiple ALLERGIES she may need a short course of IV antibiotic on discharge Time with Patient: Less than 30
[2022-06-02] MEDS: oxyCODONE-APAP 5-325MG 1 EACH TAB PO PRN ×3 (05:01→20:59)
[2022-06-02] MEDS: diphenhydrAMINE 25 MG CAP PO PRN ×3 (05:02→21:01)
--- NOTE | 2022-06-02 07:30 | XR ---
EXAMINATION TYPE: XR chest 2V DATE OF EXAM: 06/02/2022 6:31 AM COMPARISON: Chest radiograph from one day prior. TECHNIQUE: XR chest 2V Frontal and lateral views of the chest. CLINICAL INDICATION:Female, 47 years old with history of Pneumonia follow-up; FINDINGS: Lungs/Pleura: Improved aeration of the left lung. The right lung is clear. There is no evidence of pl eural effusion, or pneumothorax. Pulmonary vascularity: Unremarkable. Heart/mediastinum: Cardiomediastinal silhouette is unremarkable. Musculoskeletal: No acute osseous pathology. IMPRESSION: Improved aeration left lung with persistent opacity.
[2022-06-02 08:34] LABS: Basophils % (A) 0 %; Eosinophils # (A) 0.2 k/uL (0-0.7); Eosinophils % (A) 2 %; HCT 36.7 % (34.0-46.0); Hypochromasia Marked; Lymphocytes # (A) 1.9 k/uL (1.0-4.8); Lymphocytes % (A) 20 %; MCH 26.6 pg (25.0-35.0); MCHC 30.1 g/dL (31.0-37.0); MCV 88.6 fL (80.0-100.0); Monocytes # (A) 0.5 k/uL (0-1.0); Monocytes % (A) 5 %; Neutrophils # (A) 6.6 k/uL (1.3-7.7); Neutrophils % (A) 69 %; Platelet Count 295 k/uL (150-450); RBC 4.14 m/uL (3.80-5.40); RDW 13.6 % (11.5-15.5); WBC 9.5 k/uL (3.8-10.6)
[2022-06-02] MEDS: HEPARIN SODIUM,PORCINE/PF 5,000 UNIT/0.5 ML SYRINGE SQ SCH ×2 (08:34→21:01)
[2022-06-02] MEDS: LIDOCAINE 5% PATCH TOPICAL SCH (08:35)
[2022-06-02] MEDS: CITALOPRAM HYDROBROMIDE 20 MG TAB PO SCH (08:36)
[2022-06-02] MEDS: amLODIPine 5 MG TAB PO SCH (08:36)
[2022-06-02] MEDS: carvediloL 12.5 MG TAB PO SCH ×2 (08:36→16:34)
[2022-06-02] MEDS: levETIRAcetam 500 MG TAB PO SCH ×2 (08:36→20:59)
[2022-06-02] MEDS: QUEtiapine 50 MG TAB PO SCH (08:36)
[2022-06-02] MEDS: ERTAPENEM 1 GM in SODIUM CHLORIDE 0.9% 50 ML IVPB SCH (08:36)
[2022-06-02] MEDS: ACETAMINOPHEN TAB 325 MG TAB PO PRN ×2 (08:37→16:35)
[2022-06-02] MEDS: PANTOPRAZOLE 40 MG/10 ML VIAL IV SCH (08:37)
[2022-06-02 08:47] LABS: ALT 13 U/L (4-34); AST 13 U/L (14-36); African American GFR (CKD) >90 (>60 ml/min/1.73 sqM); Albumin 2.9 g/dL (3.5-5.0); Alkaline Phosphatase 67 U/L (38-126); Anion Gap 3 mmol/L; Blood Urea Nitrogen 2 mg/dL (7-17); Calcium 7.9 mg/dL (8.4-10.2); Carbon Dioxide 37 mmol/L (22-30); Chloride 100 mmol/L (98-107); Glucose 117 mg/dL (74-99); Non-African American GFR(CKD) >90 (>60 ml/min/1.73 sqM); Potassium 3.6 mmol/L (3.5-5.1); Sodium 140 mmol/L (137-145); Total Bilirubin 0.4 mg/dL (0.2-1.3); Total Protein 5.5 g/dL (6.3-8.2)
[2022-06-02 09:14] LABS: C Reactive Protein 8.6 mg/dL (<1.0)
--- NOTE | 2022-06-02 12:53 | P.PN ---
Subjective 47-year-old woman brought by EMS to have evaluation of altered mental status. Patient reportedly had not taken her home medication for some period of time. Family reported that she had gone to use bathroom and then appears to have had bowel incontinence. They phoned EMS who brought her here. Patient not able to provide any history, appears very delirious. The emergency department note indicates that the patient stopped taking all of her home medications. CT scan of the brain performed in the emergency department revealed no signs of acute hemorrhage or infarct. Because of the patient's markedly elevated white blood cell count, fever, tachycardia and hypotension, the patient was diagnosed with sepsis/shock. A lumbar puncture was performed. The current available results indicate that there are 3 white cells, 2 red cells, glucose 62 and protein 44. Urine drug screen was positive for opiates,oxycodone, tricyclic antidepressants, benzodiazepines and THC. Lactic acid is elevated at 5.6. White blood cell count is elevated at 32.4. 24 hour interval change 05/30/2022 Patient is more awake and alert this morning; no specific complaints reported Patient has been evaluated by ID for elevated white blood count and possible sepsis; concerns about possible aspiration pneumonia; patient is currently on IV vancomycin and Azactam is admitted for gram-negative coverage while awaiting complete sepsis workup Neurology recommended EEG; CSF is unremarkable; patient has been loaded with Keppra 1500 mg IV with recommendations to continue 500 mg every 12 hours; seizure precautions in place 05/31/2022 Patient today is awake and alert, walking in her room, denies any headache or neurological symptoms however she looks tired and malaise and she is tachypneic with occasional coughing but no chest pain, she reports some dysuria but repeat urinalysis is negative Repeat chest x-ray showed worsening left middle and lower lobe pneumonia. Antibiotics was adjusted today to Invanz. Aztreonam and vancomycin were discontinued Follow-up culture results We will keep monitoring 06/01/2022 Patient awake and alert 3, she does not look in distress, she still mildly tachypneic and she still on home oxygen via nasal cannula at 2 L/m. No chest pain. Patient is able to move and walk freely. WBC is back to normal. No more fever Patient remains on Invanz for her worsening pneumonia of the left side since yesterday. Also she is on Keppra by neurologist for possible breakthrough seizure. Continue with normal saline 75 mm per hour 06/02/2022 Patient getting better, her breathing is much easier and wishes moving more easier and freely. She does not cough in September. Dyspnea is improving with no chest pain. Patient asked to be discharged today but she agrees to settle tomorrow. Repeat chest x-ray showing improvement but persistent opacity. Currently on Invanz and she might need IV antibiotic upon discharge Labs showing improvement. Objective - Vital Signs Vital signs: Vital Signs Temp 98.8 F 06/02/22 12:33 Pulse 76 06/02/22 12:33 Resp 18 06/02/22 12:33 BP 155/88 06/02/22 12:33 Pulse Ox 93 L 06/02/22 12:33 FiO2 Intake & Output 06/01/22 06/02/22 06/02/22 18:59 06:59 18:59 Intake Total 476 222 358 Balance 476 222 358 Intake: Oral 476 222 358 Other: Voiding Method Toilet Toilet # Voids 2 0 - Exam GENERAL: The patient is alert and oriented x3, not in any acute distress. Well developed, well nourished. HEENT: Pupils are round and equally reacting to light. EOMI. No scleral icterus. No conjunctival pallor. Normocephalic, atraumatic. No pharyngeal erythema. No thyromegaly. CARDIOVASCULAR: S1 and S2 present. No murmurs, rubs, or gallops. -PULMONARY: Chest is clear to auscultation, no wheezing or crackles. Tachypneic, decreased breath sounds on the left side ABDOMEN: Soft, nontender, nondistended, normoactive bowel sounds. No palpable organomegaly. MUSCULOSKELETAL: No joint swelling or deformity. EXTREMITIES: No cyanosis, clubbing, or pedal edema. NEUROLOGICAL: Gross neurological examination did not reveal any focal deficits. SKIN: No rashes. no petechiae. - Labs CBC & Chem 7: 06/02/22 08:01 06/02/22 08:01 Labs: Abnormal Lab Results - Last 24 Hours (Table) 06/02/22 06/02/22 Range/Units 08:01 08:01 Hgb 11.0 L (11.4-16.0) gm/dL MCHC 30.1 L (31.0-37.0) g/dL Carbon Dioxide 37 H (22-30) mmol/L BUN 2 L (7-17) mg/dL Creatinine 0.37 L (0.52-1.04) mg/dL Glucose 117 H (74-99) mg/dL Calcium 7.9 L (8.4-10.2) mg/dL AST 13 L (14-36) U/L C-Reactive Protein 8.6 H (<1.0) mg/dL Total Protein 5.5 L (6.3-8.2) g/dL Albumin 2.9 L (3.5-5.0) g/dL Microbiology - Last 24 Hours (Table) 05/29/22 08:00 Blood Culture - Preliminary Blood No Growth after 96 hours 05/29/22 07:45 Blood Culture - Preliminary Blood No Growth after 96 hours 05/29/22 09:11 CSF Gram Stain - Preliminary Cerebral Spinal Fluid CSF Culture - Preliminary Assessment and Plan Assessment: 1. Altered mental status secondary to toxic metabolic encephalopathy 2. Polysubstance abuse; urine drug screen is positive for opioids, oxycodone, tricyclic 100%, benzodiazepines and marijuana 3. Left lower lobe pneumonia, rule out aspiration pneumonia 4. Hypertension; amlodipine 5 mg daily; Coreg 25 mg twice a day 5. Asthma/COPD; Proventil inhaler when necessary 6. Seizure disorder; has been loaded with Keppra 7. Restless leg syndrome; Requip 0.25 mg daily at bedtime Plan: Continue with antibiotic Invanz Monitor breathing pattern Infectious disease team on the case Bronchodilator and pain management Continue with Vikram, neurologist on the case. Follow-up with Dr. Wick in 2 weeks after discharge Labs and medication were reviewed.. Continue same treatment. Continue with symptomatic treatment. Resume home medication. Monitor labs and vitals. DVT and GI prophylaxis. Further recommendations as per clinical course of the patient DVT prophylaxis: Subcutaneous heparin GI Prophylaxis: Pepcid Gait is normal Prognosis is guarded
[2022-06-02] MEDS: SODIUM CHLORIDE 0.9% 1,000 ML IV SCH (14:24)
[2022-06-02] MEDS: SPIRONOLACTONE 25 MG TAB PO SCH (20:42)
[2022-06-02] MEDS: QUEtiapine 100 MG TAB PO SCH (20:59)
--- NOTE | 2022-06-02 21:09 | P.PN ---
Subjective Progress Note Date: 06/02/22 06/02/2022: Patient was seen for a follow-up. Patient complaining of generalized pain 8/10. After medication goes down to 6/10. She feels tired. No further seizures or syncopal spells. Tolerating medications well. 06/01/2022: Patient was seen for a follow-up. Patient was asleep. On waking up, patient was alert and awake, fully oriented. Complaining of pain 9/10. She states that she is receiving less amount of opiates that she prefers. No seizure-like activity or syncopal spells. 05/31/2022: Patient was initially seen by Dr. Gillette. Please refer to her note for details. Patient at present is laying comfortably in the bed. She is slightly short of breath. Patient complains of having low back pain, which involves the entire back which is chronic in nature. Before she takes her Percocet (which she has been taking for years), it was 10/10. After the Percocet and goes down to 6/10. Then it comes back up to 8/10 (now). She claims that she has history of rheumatoid arthritis, osteoarthritis and fibromyalgia. patient says that she has history of seizures "off and on" for years. She says these are stress-induced when she gets upset. Her last seizure was about a year ago. She follows up with Dr. Felix Wick. She continues to smoke half pack per day although at present she is cutting back on her tobacco use. Objective - Vital Signs Vital signs: Vital Signs Temp 98.3 F 06/02/22 08:00 Pulse 82 06/02/22 08:00 Resp 18 06/02/22 08:00 BP 180/98 06/02/22 08:00 Pulse Ox 95 06/02/22 08:00 FiO2 Intake & Output 06/01/22 06/02/22 06/02/22 18:59 06:59 18:59 Intake Total 476 222 358 Balance 476 222 358 Intake: Oral 476 222 358 Other: Voiding Method Toilet Toilet # Voids 2 0 - Exam Patient is alert and awake oriented to time place and person. Speech and langua ge functions are normal. Patient knows it is May 2022 and that she is in [facility] in [facility] and name of the current president. Detail examination deferred. Speech and language functions are normal. Cranial nerves are normal. - Labs CBC & Chem 7: 06/02/22 08:01 06/02/22 08:01 Labs: Abnormal Lab Results - Last 24 Hours (Table) 06/02/22 06/02/22 Range/Units 08:01 08:01 Hgb 11.0 L (11.4-16.0) gm/dL MCHC 30.1 L (31.0-37.0) g/dL Carbon Dioxide 37 H (22-30) mmol/L BUN 2 L (7-17) mg/dL Creatinine 0.37 L (0.52-1.04) mg/dL Glucose 117 H (74-99) mg/dL Calcium 7.9 L (8.4-10.2) mg/dL AST 13 L (14-36) U/L C-Reactive Protein 8.6 H (<1.0) mg/dL Total Protein 5.5 L (6.3-8.2) g/dL Albumin 2.9 L (3.5-5.0) g/dL Microbiology - Last 24 Hours (Table) 05/29/22 08:00 Blood Culture - Preliminary Blood No Growth after 72 hours 05/29/22 07:45 Blood Culture - Preliminary Blood No Growth after 72 hours 05/29/22 09:11 CSF Gram Stain - Preliminary Cerebral Spinal Fluid CSF Culture - Preliminary Assessment and Plan Assessment: 1. Severe confusion with markedly elevated white blood cell count, positive urine drug screen, elevated lactic acid level-toxic metabolic encephalopathy, versus possible breakthrough seizure. Mentation back to normal. 2. Medical noncompliance 3. CSF is normal. There is no evidence of bacterial or viral infection 4. Tobacco use 5. Pneumonia Plan: 1. EEG revealed background slowing of at least moderate degree. Also has some FIRDA. This is suggestive of embolic encephalopathy. No epileptiform activity was seen. 2. Patient has been loaded with 1500 mg of Keppra IV. Continue Keppra 500 mg twice a day orally. 4. Seizure precautions 5. Recommend complete tobacco cessation. 6. Recommend follow-up with her neurologist Dr. Wick in 2-4 weeks after discharge. 7. Neurologically clear for discharge. Neurology will sign off. Please reconsult neurology if any concerns.
--- NOTE | 2022-06-02 23:18 | P.PN ---
Subjective Progress Note Date: 06/02/22 Principal diagnosis: Fever likely pneumonia Patient is a 47 year old female with a past medical history significant for bipolar disorder brought into the hospital with mental status changes after the patient was found in the bathroom, patient did have lumbar puncture, CSF exam is not suggestive of meningitis or encephalitis. On today's evaluation that is 06/02/2022, the patient remains to be afebrile, the patient is breathing comfortably on 2 L nasal cannula, the patient denies any chest pain the patient cough is decreased intensity mostly dry in nature the patient denies abdominal pain and no diarrhea Objective - Vital Signs Vital signs: Vital Signs Temp 98.8 F 06/02/22 12:33 Pulse 76 06/02/22 12:33 Resp 18 06/02/22 12:33 BP 155/88 06/02/22 12:33 Pulse Ox 93 L 06/02/22 12:33 FiO2 Intake & Output 06/01/22 06/02/22 06/02/22 18:59 06:59 18:59 Intake Total 476 222 523 Balance 476 222 523 Intake: Oral 476 222 523 Other: Voiding Method Toilet Toilet # Voids 2 0 - Exam GENERAL DESCRIPTION: Middle-age female lying in bed in no distress RESPIRATORY SYSTEM: Unlabored breathing , decreased breath sounds at bases HEART: S1 S2 regular rate and rhythm , ABDOMEN: Soft , no tenderness EXTREMITIES: No edema feet - Labs CBC & Chem 7: 06/02/22 08:01 06/02/22 08:01 Labs: Abnormal Lab Results - Last 24 Hours (Table) 06/02/22 06/02/22 Range/Units 08:01 08:01 Hgb 11.0 L (11.4-16.0) gm/dL MCHC 30.1 L (31.0-37.0) g/dL Carbon Dioxide 37 H (22-30) mmol/L BUN 2 L (7-17) mg/dL Creatinine 0.37 L (0.52-1.04) mg/dL Glucose 117 H (74-99) mg/dL Calcium 7.9 L (8.4-10.2) mg/dL AST 13 L (14-36) U/L C-Reactive Protein 8.6 H (<1.0) mg/dL Total Protein 5.5 L (6.3-8.2) g/dL Albumin 2.9 L (3.5-5.0) g/dL Microbiology - Last 24 Hours (Table) 05/29/22 09:11 CSF Gram Stain - Final Cerebral Spinal Fluid CSF Culture - Final 05/29/22 08:00 Blood Culture - Preliminary Blood No Growth after 96 hours 05/29/22 07:45 Blood Culture - Preliminary Blood No Growth after 96 hours Assessment and Plan (1) Pneumonia Current Visit: Yes Status: Acute Code(s): J18.9 - PNEUMONIA, UNSPECIFIED ORGANISM SNOMED Code(s): 428363108 Plan: 1patient presented to hospital with sepsis in this patient who did have fever tachycardia elevated white count patient did have a psych history and apparently has not been taking her medication did have extensive work-up including LP with CSF findings were normal urine is negative some increased density left lung with a question of possible aspiration pneumonia abdominal was soft on clinical examination and no evidence of any cellulitis. 2patient with multiple antibiotic allergies that would limit the number of antibiotics safe to use. 3patient has show some clinical improvement and the patient white count has normalized and the patient also have improvement in chest x-ray as well as inflammatory markers the patient will continue the patient on Invanz 1 g daily and continue supportive care Time with Patient: Less than 30
[2022-06-03] MEDS: POTASSIUM CHLORIDE ER 20 MEQ TAB.ER PO SCH ×2 (02:58→04:22)
[2022-06-03] MEDS: ACETAMINOPHEN TAB 325 MG TAB PO PRN ×2 (02:59→09:37)
[2022-06-03] MEDS: diphenhydrAMINE 25 MG CAP PO PRN ×3 (04:22→21:33)
[2022-06-03] MEDS: oxyCODONE-APAP 5-325MG 1 EACH TAB PO PRN ×3 (04:22→21:32)
[2022-06-03] MEDS: carvediloL 12.5 MG TAB PO SCH ×2 (04:22→17:21)
[2022-06-03] MEDS: SPIRONOLACTONE 25 MG TAB PO SCH (06:13)
[2022-06-03] MEDS: amLODIPine 5 MG TAB PO SCH (06:13)
[2022-06-03] MEDS: HEPARIN SODIUM,PORCINE/PF 5,000 UNIT/0.5 ML SYRINGE SQ SCH ×3 (09:35→21:33)
[2022-06-03] MEDS: ONDANSETRON 4 MG/2 ML VIAL IVP PRN ×2 (09:35→16:52)
[2022-06-03] MEDS: ERTAPENEM 1 GM in SODIUM CHLORIDE 0.9% 50 ML IVPB SCH (09:36)
[2022-06-03] MEDS: PANTOPRAZOLE 40 MG/10 ML VIAL IV SCH (09:36)
[2022-06-03] MEDS: CITALOPRAM HYDROBROMIDE 20 MG TAB PO SCH (09:36)
[2022-06-03] MEDS: levETIRAcetam 500 MG TAB PO SCH ×2 (09:36→21:32)
[2022-06-03] MEDS: QUEtiapine 50 MG TAB PO SCH (09:36)
[2022-06-03] MEDS: LIDOCAINE 5% PATCH TOPICAL SCH (16:27)
[2022-06-03] MEDS: QUEtiapine 100 MG TAB PO SCH (21:32)
[2022-06-04] MEDS: carvediloL 12.5 MG TAB PO SCH (04:30)
[2022-06-04] MEDS: diphenhydrAMINE 25 MG CAP PO PRN ×2 (04:31→13:18)
[2022-06-04] MEDS: oxyCODONE-APAP 5-325MG 1 EACH TAB PO PRN ×2 (04:32→13:18)
[2022-06-04] MEDS ORDERED: amLODIPine 5 MG TAB PO STA (06:43)
--- NOTE | 2022-06-04 06:47 | P.PN ---
Subjective 47-year-old woman brought by EMS to have evaluation of altered mental status. Patient reportedly had not taken her home medication for some period of time. Family reported that she had gone to use bathroom and then appears to have had bowel incontinence. They phoned EMS who brought her here. Patient not able to provide any history, appears very delirious. The emergency department note indicates that the patient stopped taking all of her home medications. CT scan of the brain performed in the emergency department revealed no signs of acute hemorrhage or infarct. Because of the patient's markedly elevated white blood cell count, fever, tachycardia and hypotension, the patient was diagnosed with sepsis/shock. A lumbar puncture was performed. The current available results indicate that there are 3 white cells, 2 red cells, glucose 62 and protein 44. Urine drug screen was positive for opiates,oxycodone, tricyclic antidepressants, benzodiazepines and THC. Lactic acid is elevated at 5.6. White blood cell count is elevated at 32.4. 24 hour interval change 05/30/2022 Patient is more awake and alert this morning; no specific complaints reported Patient has been evaluated by ID for elevated white blood count and possible sepsis; concerns about possible aspiration pneumonia; patient is currently on IV vancomycin and Azactam is admitted for gram-negative coverage while awaiting complete sepsis workup Neurology recommended EEG; CSF is unremarkable; patient has been loaded with Keppra 1500 mg IV with recommendations to continue 500 mg every 12 hours; seizure precautions in place 05/31/2022 Patient today is awake and alert, walking in her room, denies any headache or neurological symptoms however she looks tired and malaise and she is tachypneic with occasional coughing but no chest pain, she reports some dysuria but repeat urinalysis is negative Repeat chest x-ray showed worsening left middle and lower lobe pneumonia. Antibiotics was adjusted today to Invanz. Aztreonam and vancomycin were discontinued Follow-up culture results We will keep monitoring 06/01/2022 Patient awake and alert 3, she does not look in distress, she still mildly tachypneic and she still on home oxygen via nasal cannula at 2 L/m. No chest pain. Patient is able to move and walk freely. WBC is back to normal. No more fever Patient remains on Invanz for her worsening pneumonia of the left side since yesterday. Also she is on Keppra by neurologist for possible breakthrough seizure. Continue with normal saline 75 mm per hour 06/02/2022 Patient getting better, her breathing is much easier and wishes moving more easier and freely. She does not cough in September. Dyspnea is improving with no chest pain. Patient asked to be discharged today but she agrees to settle tomorrow. Repeat chest x-ray showing improvement but persistent opacity. Currently on Invanz and she might need IV antibiotic upon discharge Labs showing improvement. 06/03/2012 patient continued to improve, her dyspnea is better while she is on antibiotics Invanz. Patient might need a PICC line and IV antibiotics upon discharge given her failure with previous treatment with IV vancomycin and aztreonam and multiple medical ALLERGIES to antibiotics Her blood pressure was elevated but better control after adding Aldactone and keep monitoring closely. Patient is off IV fluids. She is fully awake and oriented Labs show significant improvement with WBC back to normal, Protonix, calcitonin significantly improved down to 0.7. Vitals are stable and patient denies any other symptoms and she feels more energetic as well. Possible discharge in 24-48 hours Objective - Vital Signs Vital signs: Vital Signs Temp 98.9 F 06/03/22 12:00 Pulse 88 06/03/22 12:00 Resp 18 06/03/22 12:00 BP 162/82 06/03/22 12:00 Pulse Ox 95 06/03/22 12:00 FiO2 Intake & Output 06/02/22 06/03/22 06/03/22 18:59 06:59 18:59 Intake Total 688 648 Balance 688 648 Weight 90.718 kg Intake: Intake, IV Titration 50 Amount Ertapenem 1 gm In Sodium 50 Chloride 0.9% 50 ml @ 100 mls/hr IVPB DAILY [facility] Rx #:[id number] Oral 688 [id number] Other: Voiding Method Toilet Toilet Toilet # Voids 5 1 3 # Bowel Movements 2 1 - Exam GENERAL: The patient is alert and oriented x3, not in any acute distress. Well developed, well nourished. HEENT: Pupils are round and equally reacting to light. EOMI. No scleral icterus. No conjunctival pallor. Normocephalic, atraumatic. No pharyngeal erythema. No thyromegaly. CARDIOVASCULAR: S1 and S2 present. No murmurs, rubs, or gallops. -PULMONARY: Chest is clear to auscultation, no wheezing or crackles. Tachypneic, decreased breath sounds on the left side ABDOMEN: Soft, nontender, nondistended, normoactive bowel sounds. No palpable organomegaly. MUSCULOSKELETAL: No joint swelling or deformity. EXTREMITIES: No cyanosis, clubbing, or pedal edema. NEUROLOGICAL: Gross neurological examination did not reveal any focal deficits. SKIN: No rashes. no petechiae. - Labs CBC & Chem 7: 06/02/22 08:01 06/02/22 08:01 Labs: Microbiology - Last 24 Hours (Table) 05/29/22 07:45 Blood Culture - Preliminary Blood No Growth after 120 hours 05/29/22 08:00 Blood Culture - Preliminary Blood No Growth after 120 hours 05/29/22 09:11 CSF Gram Stain - Final Cerebral Spinal Fluid CSF Culture - Final Assessment and Plan Assessment: 1. Altered mental status secondary to toxic metabolic encephalopathy 2. Polysubstance abuse; urine drug screen is positive for opioids, oxycodone, tricyclic 100%, benzodiazepines and marijuana 3. Left lower lobe pneumonia, rule out aspiration pneumonia 4. Hypertension; amlodipine 5 mg daily; Coreg 25 mg twice a day 5. Asthma/COPD; Proventil inhaler when necessary 6. Seizure disorder; has been loaded with Keppra 7. Restless leg syndrome; Requip 0.25 mg daily at bedtime Plan: Continue with antibiotic Invanz Monitor breathing pattern Infectious disease team on the case Bronchodilator and pain management Add Aldactone Continue with Vikram, neurologist on the case. Follow-up with Dr. Wick in 2 weeks after discharge Labs and medication were reviewed.. Continue same treatment. Continue with symptomatic treatment. Resume home medication. Monitor labs and vitals. DVT and GI prophylaxis. Further recommendations as per clinical course of the patient DVT prophylaxis: Subcutaneous heparin GI Prophylaxis: Pepcid Gait is normal Prognosis is guarded
[2022-06-04] MEDS: QUEtiapine 50 MG TAB PO SCH (08:39)
[2022-06-04] MEDS: HEPARIN SODIUM,PORCINE/PF 5,000 UNIT/0.5 ML SYRINGE SQ SCH (08:39)
[2022-06-04] MEDS: SPIRONOLACTONE 25 MG TAB PO SCH (08:39)
[2022-06-04] MEDS: PANTOPRAZOLE 40 MG/10 ML VIAL IV SCH (08:39)
[2022-06-04] MEDS: CITALOPRAM HYDROBROMIDE 20 MG TAB PO SCH (08:39)
[2022-06-04] MEDS: LIDOCAINE 5% PATCH TOPICAL SCH (08:39)
[2022-06-04] MEDS: levETIRAcetam 500 MG TAB PO SCH (08:39)
[2022-06-04] MEDS ORDERED: metroNIDAZOLE 500 MG TAB PO SCH (09:15)
[2022-06-04] MEDS ORDERED: CEFDINIR 300 MG CAP PO SCH (09:15)
[2022-06-04] MEDS: ERTAPENEM 1 GM in SODIUM CHLORIDE 0.9% 50 ML IVPB SCH (10:38)
[2022-06-04 15:52] VITALS: BP 169/108; PULSE 87; RESP 20; TEMP 99.2
--- NOTE | 2022-06-04 16:37 | P.PN ---
Subjective Progress Note Date: 06/03/22 Principal diagnosis: Fever likely pneumonia Patient is a 47 year old female with a past medical history significant for bipolar disorder brought into the hospital with mental status changes after the patient was found in the bathroom, patient did have lumbar puncture, CSF exam is not suggestive of meningitis or encephalitis. On today's evaluation that is 06/03/2022, the patient continues to be afebrile, the patient is breathing comfortably on 2 L nasal cannula, the patient denies any chest pain the patient cough has decreased intensity not bringing up any sputum. Denies having any nausea no vomiting no abdominal pain no diarrhea Objective - Vital Signs Vital signs: Vital Signs Temp 98.9 F 06/03/22 12:00 Pulse 88 06/03/22 12:00 Resp 18 06/03/22 12:00 BP 162/82 06/03/22 12:00 Pulse Ox 95 06/03/22 12:00 FiO2 Intake & Output 06/02/22 06/03/22 06/03/22 18:59 06:59 18:59 Intake Total 688 648 Balance 688 648 Weight 90.718 kg Intake: Intake, IV Titration 50 Amount Ertapenem 1 gm In Sodium 50 Chloride 0.9% 50 ml @ 100 mls/hr IVPB DAILY [facility] Rx #:[id number] Oral 688 598 Other: Voiding Method Toilet Toilet Toilet # Voids 5 1 3 # Bowel Movements 2 1 - Exam GENERAL DESCRIPTION: Middle-age female lying in bed in no distress RESPIRATORY SYSTEM: Unlabored breathing , decreased breath sounds at bases HEART: S1 S2 regular rate and rhythm , ABDOMEN: Soft , no tenderness EXTREMITIES: No edema feet - Labs CBC & Chem 7: 06/02/22 08:01 06/02/22 08:01 Labs: Abnormal Lab Results - Last 24 Hours (Table) 06/02/22 Range/Units 08:01 Procalcitonin 0.72 H (0.02-0.09) ng/mL Microbiology - Last 24 Hours (Table) 05/29/22 07:45 Blood Culture - Preliminary Blood No Growth after 120 hours 05/29/22 08:00 Blood Culture - Preliminary Blood No Growth after 120 hours 05/29/22 09:11 CSF Gram Stain - Final Cerebral Spinal Fluid CSF Culture - Final Assessment and Plan (1) Pneumonia Status: Acute Code(s): J18.9 - PNEUMONIA, UNSPECIFIED ORGANISM SNOMED Code(s): 521507676 Plan: 1patient presented to hospital with sepsis in this patient who did have fever tachycardia elevated white count patient did have a psych history and apparently has not been taking her medication did have extensive work-up including LP with CSF findings were normal urine is negative some increased density left lung with a question of possible aspiration pneumonia abdominal was soft on clinical examination and no evidence of any cellulitis. 2patient with multiple antibiotic allergies that would limit the number of antibiotics safe to use. 3patient has show some clinical improvement and the patient white count has normalized and the patient also have improvement in chest x-ray as well as inflammatory markers the patient will continue the patient on Invanz 1 g daily daily and a dose tomorrow afterwards we will switch her over to oral Ceftin and Flagyl to finish her treatment Time with Patient: Less than 30
--- NOTE | 2022-06-04 16:38 | P.PN ---
Subjective Progress Note Date: 06/04/22 Principal diagnosis: Fever likely pneumonia Patient is a 47 year old female with a past medical history significant for bipolar disorder brought into the hospital with mental status changes after the patient was found in the bathroom, patient did have lumbar puncture, CSF exam is not suggestive of meningitis or encephalitis. On today's evaluation that is 06/04/2022, the patient remains to be afebrile, the patient is breathing comfortably on nasal cannula oxygen, the patient denies any chest pain the patient cough has decreased intensity not bringing up any sputum. Denies having any nausea no vomiting no abdominal pain no diarrhea, the patient did loss IV this morning and she was given Omnicef which the patient tolerated, patient is currently feeling better wants to go home Objective - Vital Signs Vital signs: Vital Signs Temp 98.0 F 06/04/22 08:31 Pulse 80 06/04/22 08:31 Resp 18 06/04/22 08:31 BP 160/90 06/04/22 08:31 Pulse Ox 94 L 06/04/22 08:31 FiO2 Intake & Output 06/03/22 06/04/22 06/04/22 18:59 06:59 18:59 Intake Total 828 240 Balance 828 240 Weight 90.718 kg Intake: Intake, IV Titration 50 Amount Ertapenem 1 gm In Sodium 50 Chloride 0.9% 50 ml @ 100 mls/hr IVPB DAILY [facility] Rx #:[id number] Oral 778 240 Other: Voiding Method Toilet Toilet Toilet # Voids 3 1 # Bowel Movements 1 - Exam GENERAL DESCRIPTION: Middle-age female lying in bed in no distress RESPIRATORY SYSTEM: Unlabored breathing , decreased breath sounds at bases HEART: S1 S2 regular rate and rhythm , ABDOMEN: Soft , no tenderness EXTREMITIES: No edema feet - Labs CBC & Chem 7: 06/02/22 08:01 06/02/22 08:01 Labs: Microbiology - Last 24 Hours (Table) 05/29/22 08:00 Blood Culture - Final Blood No Growth after 144 hours 05/29/22 07:45 Blood Culture - Final Blood No Growth after 144 hours Assessment and Plan (1) Pneumonia Status: Acute Code(s): J18.9 - PNEUMONIA, UNSPECIFIED ORGANISM SNOMED Code(s): 489331697 Plan: 1patient presented to hospital with sepsis in this patient who did have fever tachycardia elevated white count patient did have a psych history and apparently has not been taking her medication did have extensive work-up including LP with CSF findings were normal urine is negative some increased density left lung with a question of possible aspiration pneumonia abdominal was soft on clinical examination and no evidence of any cellulitis. 2patient with multiple antibiotic allergies that would limit the number of antibiotics safe to use. 3patient has show clinical improvement and the patient white count has normalized and the patient also have improvement in chest x-ray as well as inflammatory markers the patient has received about 5 days of Invanz which should be enough we will send a prescription for oral Ceftin and Flagyl 5 days and the patient overall Time with Patient: Less than 30
[2022-06-05] MEDS ORDERED: amLODIPine 10 MG TAB PO SCH (09:00)
== END 2022-06-04 15:52 | disposition home health service (06) | DRG 871 ==
LOC: EC 04:20 → 3SCARD 11:34
PROVIDERS: ADMIT Internal Medicine; ATTEND Internal Medicine
PROC: 009U3ZX Drainage of Spinal Canal, Percutaneous Approach, Diagnostic (ICD-10-PCS; principal; 2022-05-29)
PROC: 4A10X4Z Monitoring of Central Nervous Electrical Activity, External Approach (ICD-10-PCS; 2022-05-31)
DX: A41.9 Sepsis, unspecified organism (principal); G92.8 Other toxic encephalopathy; R65.21 Severe sepsis with septic shock; J69.0 Pneumonitis due to inhalation of food and vomit; J44.0 Chronic obstructive pulmonary disease with (acute) lower respiratory infection; F05 Delirium due to known physiological condition; I11.0 Hypertensive heart disease with heart failure; I50.9 Heart failure, unspecified; M06.9 Rheumatoid arthritis, unspecified; G40.909 Epilepsy, unspecified, not intractable, without status epilepticus; F31.9 Bipolar disorder, unspecified; K58.9 Irritable bowel syndrome, unspecified; G43.909 Migraine, unspecified, not intractable, without status migrainosus; F19.10 Other psychoactive substance abuse, uncomplicated; F39 Unspecified mood [affective] disorder; R15.9 Full incontinence of feces; M79.7 Fibromyalgia; G25.81 Restless legs syndrome; G89.29 Other chronic pain; F90.9 Attention-deficit hyperactivity disorder, unspecified type; R10.9 Unspecified abdominal pain; F41.9 Anxiety disorder, unspecified; F17.210 Nicotine dependence, cigarettes, uncomplicated; Z88.8 Allergy status to other drugs, medicaments and biological substances; Z88.1 Allergy status to other antibiotic agents; Z91.041 Radiographic dye allergy status; Z88.5 Allergy status to narcotic agent; Z91.199 Patient's noncompliance with other medical treatment and regimen due to unspecified reason; Z86.73 Personal history of transient ischemic attack (TIA), and cerebral infarction without residual deficits; Z87.01 Personal history of pneumonia (recurrent); Z86.14 Personal history of Methicillin resistant Staphylococcus aureus infection; Z87.442 Personal history of urinary calculi; Z79.899 Other long term (current) drug therapy; Z90.710 Acquired absence of both cervix and uterus; Z71.6 Tobacco abuse counseling; Z90.49 Acquired absence of other specified parts of digestive tract; Z98.51 Tubal ligation status; Z88.2 Allergy status to sulfonamides; Z91.013 Allergy to seafood
CPT/HCPCS: 36415; 62270; 70450; 71045; 71046; 80048; 80053; 80202; 80306; 80320; 81001; 82140; 82565; 82803; 82945; 83605; 83735; 84145; 84157; 84484; 85025; 85610; 85730; 86140; 87040; 87070; 87205; 87529; 89050; 93005; 95816; 96361; 96365; 96375; 96376; 99291

== ENCOUNTER 2022-07-21 14:39 | Inpatient (IN) | payer MEDICARE ==
[2022-07-21 16:31] LABS: Glucose,Whole Blood 129 mg/dL (70-110)
--- NOTE | 2022-07-21 17:17 | CT ---
EXAMINATION TYPE: CT brain wo con DATE OF EXAM: 07/21/2022 COMPARISON: 05/29/2022 HISTORY: Altered mental status CT DLP: mGycm Automated exposure control for dose reduction was used. Ventricles have normal size. There is no mass effect or midline shift. No sign of intracranial hemorr rhys. The calvarium is intact. Skull base is intact. There is normal aeration of the mastoid sinuses. Impression: Negative CT scan of the brain. Right-sided maxillary sinusitis is completely cleared compared to old exam.
--- NOTE | 2022-07-21 17:20 | XR ---
EXAMINATION TYPE: XR chest 2V DATE OF EXAM: 07/21/2022 COMPARISON: 06/02/2022 HISTORY: Altered mental status TECHNIQUE: 3 views FINDINGS: Heart and mediastinum are normal. Lungs are clear. Diaphragm is normal. Bony thorax is inta ct. IMPRESSION: Normal chest. There is clearing of the left-sided lingula pneumonia and pleural reaction compared to old exam.
[2022-07-21 17:31] LABS: Basophils # (A) 0.1 k/uL (0-0.2); Basophils % (A) 1 %; Eosinophils # (A) 0.2 k/uL (0-0.7); Eosinophils % (A) 2 %; HCT 45.2 % (34.0-46.0); HGB 13.7 gm/dL (11.4-16.0); Hypochromasia Marked; Lymphocytes # (A) 2.2 k/uL (1.0-4.8); Lymphocytes % (A) 20 %; MCH 27.4 pg (25.0-35.0); MCHC 30.4 g/dL (31.0-37.0); MCV 90.4 fL (80.0-100.0); Mean Platelet Volume 7.7; Monocytes # (A) 0.6 k/uL (0-1.0); Monocytes % (A) 5 %; Neutrophils # (A) 7.7 k/uL (1.3-7.7); Neutrophils % (A) 71 %; Platelet Count 298 k/uL (150-450); RBC 4.99 m/uL (3.80-5.40); RDW 13.2 % (11.5-15.5); WBC 10.9 k/uL (3.8-10.6)
[2022-07-21 17:35] LABS: ALT 18 U/L (4-34); AST 21 U/L (14-36); African American GFR (CKD) 72 (>60 ml/min/1.73 sqM); Albumin 4.5 g/dL (3.5-5.0); Alcohol <10 mg/dL; Alkaline Phosphatase 101 U/L (38-126); Anion Gap 9 mmol/L; Blood Urea Nitrogen 14 mg/dL (7-17); Calcium 8.9 mg/dL (8.4-10.2); Carbon Dioxide 36 mmol/L (22-30); Chloride 94 mmol/L (98-107); Glucose 123 mg/dL (74-99); Lipase 54 U/L (23-300); Non-African American GFR(CKD) 62 (>60 ml/min/1.73 sqM); Sodium 139 mmol/L (137-145); Total Bilirubin 0.2 mg/dL (0.2-1.3)
[2022-07-21 19:00] LABS: VBG PH 7.24 (7.31-7.41)
[2022-07-21] MEDS ORDERED: ONDANSETRON 4 MG/2 ML VIAL IVP STA (19:38)
[2022-07-21 20:07] LABS: Appearance,Urine Clear (Clear); Bilirubin,Urine Negative (Negative); Blood,Urine Small (Negative); Color,Urine Yellow; Glucose,Urine (UA) Negative (Negative); Hyaline Casts,Urine 17 /lpf (0-2); Ketones,Urine Negative (Negative); Leukocyte Esterase,Urine Negative (Negative); Mucus,Urine Rare /hpf; Nitrite,Urine Negative (Negative); PH, Urine 5.5 (5.0-8.0); Protein,Urine 1+ (Negative); RBC,Urine 4 /hpf (0-5); Specific Gravity,Urine 1.014 (1.001-1.035); Squamous Epithelial Cell,Urine <1 /hpf (0-4); Urobilinogen,Urine <2.0 mg/dL (<2.0); WBC,Urine 3 /hpf (0-5)
[2022-07-21 20:25] LABS: Amphetamine Screen,Urine Not Detected (NotDetected); Barbiturate Screen,Urine Not Detected (NotDetected); Benzodiazepines Screen,Urine Detected (NotDetected); Cocaine Screen,Urine Not Detected (NotDetected); Methadone Screen, Urine Not Detected (NotDetected); Opiate Screen,Urine Not Detected (NotDetected); Oxycodone Screen, Urine Detected (NotDetected); Phencyclidine Screen,Urine Not Detected (NotDetected); Tricyclic Antidepressant,Urine Detected (NotDetected); Urn Cannabinoid Scrn Detected (NotDetected)
[2022-07-21] MEDS ORDERED: NALOXONE 0.4 MG/ML 1 ML VIAL IV PRN (20:29)
--- NOTE | 2022-07-21 22:07 | ED ---
General Adult HPI - General Chief complaint: Shortness of Breath Stated complaint: possible unintentional overdose Time Seen by Provider: 07/21/22 16:23 Source: EMS Mode of arrival: EMS Limitations: no limitations - History of Present Illness Initial comments: This is a 47-year-old female who presents emergency department via EMS for altered mental status. The patient was ANO 2 and cannot provide a history. The patient could not answer any questions appropriately and was resting in bed without any acute distress. There was no family present for history and no further history could be obtained at this time on arrival. - Related Data Home Medications Medication Instructions Recorded Confirmed Spironolactone [Aldactone] 25 mg PO DAILY 02/05/17 07/21/22 Citalopram Hydrobromide [CeleXA] 40 mg PO DAILY 06/12/19 07/21/22 Dicyclomine [Bentyl] 10 mg PO QID PRN 05/28/20 07/21/22 carvediloL [Coreg] 25 mg PO BID 03/26/21 07/21/22 oxyCODONE-APAP 10-325MG [Percocet 1 tab PO TID PRN 03/16/22 07/21/22 10-325 mg] Naloxone HCl [Narcan] 4 mg NASAL ONCE PRN 05/29/22 07/21/22 QUEtiapine [SEROquel] 100 mg PO DAILY 07/21/22 07/21/22 QUEtiapine [SEROquel] 150 mg PO HS 07/21/22 07/21/22 levETIRAcetam [Keppra] 500 mg PO BID 07/21/22 07/21/22 Previous Rx's Medication Instructions Recorded amLODIPine [Norvasc] 10 mg PO DAILY #30 tab 06/04/22 Allergies Allergy/AdvReac Type Severity Reaction Status Date / Time adhesive Allergy Rash/Hives Verified 07/21/22 14:56 amoxicillin Allergy Anaphylaxis Verified 07/21/22 14:56 azithromycin [From Zithromax] Allergy Anaphylaxis Verified 07/21/22 14:56 cephalexin monohydrate Allergy Anaphylaxis Verified 07/21/22 14:56 [From Keflex] ciprofloxacin Allergy Anaphylaxis Verified 07/21/22 14:56 clindamycin Allergy Anaphylaxis Verified 07/21/22 14:56 Iodinated Contrast Media Allergy Anaphylaxis Verified 07/21/22 14:56 [Iodinated Contrast- Oral and IV Dye] levofloxacin [From Levaquin] Allergy Rash/Hives Verified 07/21/22 14:56 naproxen Allergy Anaphylaxis Verified 07/21/22 14:56 NSAIDS (Non-Steroidal Allergy Rash/Hives Verified 07/21/22 14:56 Anti-Inflamma shellfish derived Allergy Anaphylaxis Verified 05/29/22 14:21 Sulfa (Sulfonamide Allergy Anaphylaxis Verified 05/29/22 14:21 Antibiotics) sulfamethoxazole Allergy Anaphylaxis Verified 05/29/22 14:21 [From Bactrim] tramadol Allergy Unknown Verified 05/29/22 14:21 trimethoprim [From Bactrim] Allergy Anaphylaxis Verified 05/29/22 14:21 Review of Systems ROS Statement: Those systems with pertinent positive or pertinent negative responses have been documented in the HPI. ROS Other: All systems not noted in ROS Statement are negative. 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 IBS, cellulitis of the chin, History of Any Multi-Drug Resistant Organisms: MRSA Date of last positivie culture/infection: 07/2016 MDRO Source:: chin Past Surgical History: Appendectomy, Section, Cholecystectomy, Hysterectomy, Tubal Ligation Additional Past Surgical History / Comment(s): oral surgery . Pancreas biopsy May 2015. Past Anesthesia/Blood Transfusion Reactions: No Reported Reaction Past Psychological History: ADD/ADHD, Anxiety, Bipolar, Depression Smoking Status: Current every day smoker Past Alcohol Use History: None Reported Past Drug Use History: Marijuana - Past Family History Father History Unknown: Yes Family Medical History: No Reported History Additional Family Medical History / Comment(s): ADOPTED General Exam Limitations: altered mental status General appearance: in no apparent distress Head exam: Present: atraumatic, normocephalic Eye exam: Present: normal appearance, PERRL Pupils: Present: normal accommodation ENT exam: Present: normal exam, normal oropharynx, mucous membranes moist Neck exam: Present: normal inspection, full ROM Respiratory exam: Present: normal lung sounds bilaterally Cardiovascular Exam: Present: regular rate, normal rhythm, normal heart sounds GI/Abdominal exam: Present: soft, normal bowel sounds Extremities exam: Present: normal inspection, full ROM Back exam: Present: normal inspection, full ROM Neurological exam: Present: altered, CN II-XII intact Psychiatric exam: Present: normal affect, normal mood Skin exam: Present: warm, dry Course Vital Signs 07/21/22 07/21/22 07/21/22 14:40 20:00 20:25 Temperature 98.6 F Pulse Rate 94 81 Respiratory 20 12 Rate Blood Pressure 131/92 191/101 O2 Sat by Pulse 97 96 Oximetry Fraction of 50 Inspired Oxygen (FIO2) 07/21/22 07/21/22 07/21/22 20:30 20:45 21:00 Temperature Pulse Rate 78 76 76 Respiratory 12 12 12 Rate Blood Pressure 169/99 153/108 160/96 O2 Sat by Pulse 96 96 96 Oximetry Fraction of Inspired Oxygen (FIO2) 07/21/22 21:15 Temperature Pulse Rate 80 Respiratory 18 Rate Blood Pressure 153/95 O2 Sat by Pulse 96 Oximetry Fraction of Inspired Oxygen (FIO2) EKG Findings - EKG Comments: EKG Findings:: An EKG was obtained and was interpreted by myself. EKG showed a rate of 84, P arrival 144, QR islam of 86 and QTC of 428. This EKG showed a normal sinus rhythm with no ST segment elevation or depression noted. Medical Decision Making - Medical Decision Making Was pt. sent in by a medical professional or institution ([facility], TRADESHOW WORKER, urgent care, hospital, or long-term...) When possible be specific @ -No Did you speak to anyone other than the patient for history (EMS, parent, family, police, friend...)? What history was obtained from this source @ -Nurse who did get the history from EMS, daughter Isabel was contacted Did you review nursing and triage notes (agree or disagree)? Why? @ -I reviewed and agree with nursing and triage notes Were old charts reviewed (outside hosp., previous admission, EMS record, old EKG, old radiological studies, urgent care reports/EKG's, long-term records)? Report findings @ -No old charts were reviewed Differential Diagnosis (chest pain, altered mental status, abdominal pain women, abdominal pain men, vaginal bleeding, weakness, fever, dyspnea, syncope, headache, dizziness, GI bleed, back pain, seizure, CVA, palpatations, mental health)? @ -CO2 narcosis, acute CVA, metabolic encephalopathy, drug ingestion EKG interpreted by me (3pts min.). @ -As above X-rays interpreted by me (1pt min.). @ -Chest x-ray was done and interpreted by the radiologist as I could not see the image. X-ray showed a normal chest with clearing of the left-sided lingular pneumonia and pleural retraction compared to the old exam. CT interpreted by me (1pt min.). @ -CT head was done and interpreted by the radiologist did not see the images. CT head showed negative computed tomography scan of the brain. U/S interpreted by me (1pt. min.). @ -None done What testing was considered but not performed or refused? (CT, X-rays, U/S, labs)? Why? @ -None What meds were considered but not given or refused? Why? @ -None Did you discuss the management of the patient with other professionals (hilton anderson i.e. , PA, TRADESHOW WORKER, lab, RT, psych nurse, neonatal social worker, lawyer real estate, teacher, diplomatic officer, disease case manager rn)? Give summary @ -Yes, the admitting physician Was smoking cessation discussed for >3mins.? @ -No Was critical care preformed (if so, how long)? @ -Yes Were there social determinants of health that impacted care today? How? (Homelessness, low income, unemployed, alcoholism, drug addiction, transportation, low edu. Level, literacy, decrease access to med. care, [facility], rehab)? @ -No Was there de-escalation of care discussed even if they declined (Discuss DNR or withdrawal of care, Hospice)? DNR status @ -No What co-morbidities impacted this encounter? (DM, HTN, Smoking, COPD, CAD, Cancer, CVA, ARF, Chemo, Hep., AIDS, mental health diagnosis, sleep apnea, morbid obesity)? @ -COPD, hypertension Was patient admitted / discharged? Hospital course, mention meds given and route, prescriptions, significant lab abnormalities, going to OR and other pertinent info. @ -The patient was seen and evaluated initially on arrival. The patient was altered. Vital signs remained stable however the patient did however have episodes of hypoxia secondary to her COPD and did have difficulties with keeping her oxygen on her face that she remained altered. Laboratory workup was largely within normal limits however the VBG showed a CO2 of 79. The patient was placed on BiPAP at this time. The patient's altered mental status likely secondary to her CO2 narcosis and the patient will be admitted for further workup and evaluation. The patient was accepted fir admission by David Conklin under Dr. Anaya. The patient's daughter was also contacted and did provide further history. She did agree with this plan and the patient was admitted in stable co ndition. Undiagnosed new problem with uncertain prognosis? @ -No Drug Therapy requiring intensive monitoring for toxicity (Heparin, Nitro, Insul in, Cardizem)? @ -No Were any procedures done? @ -No Diagnosis/symptom? @ -Altered mental status secondary to CO2 narcosis Acute, or Chronic, or Acute on Chronic? @ -Acute Uncomplicated (without systemic symptoms) or Complicated (systemic symptoms)? @ -Complicated Side effects of treatment? @ -No Exacerbation, Progression, or Severe Exacerbation? @ -No Poses a threat to life or bodily function? How? (Chest pain, USA, CO, pneumonia, PE, COPD, DKA, ARF, appy, cholecystitis, CVA, Diverticulitis, Homicidal, Suicidal, threat to staff... and all critical care pts) @ -Yes, patient continues to remain altered - Lab Data Result diagrams: 07/21/22 14:50 07/21/22 14:50 Lab Results 07/21/22 07/21/22 07/21/22 Range/Units 14:50 14:50 14:50 WBC 10.9 H (3.8-10.6) k/uL RBC 4.99 (3.80-5.40) m/uL Hgb 13.7 (11.4-16.0) gm/dL Hct 45.2 (34.0-46.0) % MCV 90.4 (80.0-100.0) fL MCH 27.4 (25.0-35.0) pg MCHC 30.4 L (31.0-37.0) g/dL RDW 13.2 (11.5-15.5) % Plt Count 298 (150-450) k/uL MPV 7.7 Neutrophils % 71 % Lymphocytes % 20 % Monocytes % 5 % Eosinophils % 2 % Basophils % 1 % Neutrophils # 7.7 (1.3-7.7) k/uL Lymphocytes # 2.2 (1.0-4.8) k/uL Monocytes # 0.6 (0-1.0) k/uL Eosinophils # 0.2 (0-0.7) k/uL Basophils # 0.1 (0-0.2) k/uL Hypochromasia Marked VBG pH (7.31-7.41) VBG pCO2 (37-51) mmHg VBG HCO3 (24-28) mmol/L Sodium 139 (137-145) mmol/L Potassium 4.0 (3.5-5.1) mmol/L Chloride 94 L (98-107) mmol/L Carbon Dioxide 36 H (22-30) mmol/L Anion Gap 9 mmol/L BUN 14 (7-17) mg/dL Creatinine 1.07 H (0.52-1.04) mg/dL Est GFR (CKD-EPI)AfAm 72 (>60 ml/min/1.73 sqM) Est GFR (CKD-EPI)NonAf 62 (>60 ml/min/1.73 sqM) Glucose 123 H (74-99) mg/dL POC Glucose (mg/dL) (70-110) mg/dL POC Glu Business Proposal Rep ID Plasma Lactic Acid Srinivas 2.0 (0.7-2.0) mmol/L Calcium 8.9 (8.4-10.2) mg/dL Total Bilirubin 0.2 (0.2-1.3) mg/dL AST 21 (14-36) U/L ALT 18 (4-34) U/L Alkaline Phosphatase 101 (38-126) U/L Ammonia 29 (<30) umol/L Troponin I (0.000-0.034) ng/mL NT-Pro-B Natriuret Pep pg/mL Total Protein 8.0 (6.3-8.2) g/dL Albumin 4.5 (3.5-5.0) g/dL Lipase 54 (23-300) U/L Urine Color Urine Appearance (Clear) Urine pH (5.0-8.0) Ur Specific [place] (1.001-1.035) Urine Protein (Negative) Urine Glucose (UA) (Negative) Urine Ketones (Negative) Urine Blood (Negative) Urine Nitrite (Negative) Urine Bilirubin (Negative) Urine Urobilinogen (<2.0) mg/dL Ur Leukocyte Esterase (Negative) Urine RBC (0-5) /hpf Urine WBC (0-5) /hpf Ur Squamous Epith Cells (0-4) /hpf Hyaline Casts (0-2) /lpf Urine Mucus (None) /hpf Urine Opiates Screen (NotDetected) Ur Oxycodone Screen (NotDetected) Urine Methadone Screen (NotDetected) Ur Propoxyphene Screen (NotDetected) Ur Barbiturates Screen (NotDetected) U Tricyclic Antidepress (NotDetected) Ur Phencyclidine Scrn (NotDetected) Ur Amphetamines Screen (NotDetected) U Methamphetamines Scrn (NotDetected) U Benzodiazepines Scrn (NotDetected) Urine Cocaine Screen (NotDetected) U Marijuana (THC) Screen (NotDetected) Serum Alcohol <10 mg/dL 07/21/22 07/21/22 07/21/22 Range/Units 14:50 14:50 16:29 WBC (3.8-10.6) k/uL RBC (3.80-5.40) m/uL Hgb (11.4-16.0) gm/dL Hct (34.0-46.0) % MCV (80.0-100.0) fL MCH (25.0-35.0) pg MCHC (31.0-37.0) g/dL RDW (11.5-15.5) % Plt Count (150-450) k/uL MPV Neutrophils % % Lymphocytes % % Monocytes % % Eosinophils % % Basophils % % Neutrophils # (1.3-7.7) k/uL Lymphocytes # (1.0-4.8) k/uL Monocytes # (0-1.0) k/uL Eosinophils # (0-0.7) k/uL Basophils # (0-0.2) k/uL Hypochromasia VBG pH (7.31-7.41) VBG pCO2 (37-51) mmHg VBG HCO3 (24-28) mmol/L Sodium (137-145) mmol/L Potassium (3.5-5.1) mmol/L Chloride (98-107) mmol/L Carbon Dioxide (22-30) mmol/L Anion Gap mmol/L BUN (7-17) mg/dL Creatinine (0.52-1.04) mg/dL Est GFR (CKD-EPI)AfAm (>60 ml/min/1.73 sqM) Est GFR (CKD-EPI)NonAf (>60 ml/min/1.73 sqM) Glucose (74-99) mg/dL POC Glucose (mg/dL) 129 H (70-110) mg/dL POC Glu Business Proposal Rep ID Oma Alvarado Plasma Lactic Acid Srinivas (0.7-2.0) mmol/L Calcium (8.4-10.2) mg/dL Total Bilirubin (0.2-1.3) mg/dL AST (14-36) U/L ALT (4-34) U/L Alkaline Phosphatase (38-126) U/L Ammonia (<30) umol/L Troponin I <0.012 (0.000-0.034) ng/mL NT-Pro-B Natriuret Pep 769 pg/mL Total Protein (6.3-8.2) g/dL Albumin (3.5-5.0) g/dL Lipase (23-300) U/L Urine Color Urine Appearance (Clear) Urine pH (5.0-8.0) Ur Specific [place] (1.001-1.035) Urine Protein (Negative) Urine Glucose (UA) (Negative) Urine Ketones (Negative) Urine Blood (Negative) Urine Nitrite (Negative) Urine Bilirubin (Negative) Urine Urobilinogen (<2.0) mg/dL Ur Leukocyte Esterase (Negative) Urine RBC (0-5) /hpf Urine WBC (0-5) /hpf Ur Squamous Epith Cells (0-4) /hpf Hyaline Casts (0-2) /lpf Urine Mucus (None) /hpf Urine Opiates Screen (NotDetected) Ur Oxycodone Screen (NotDetected) Urine Methadone Screen (NotDetected) Ur Propoxyphene Screen (NotDetected) Ur Barbiturates Screen (NotDetected) U Tricyclic Antidepress (NotDetected) Ur Phencyclidine Scrn (NotDetected) Ur Amphetamines Screen (NotDetected) U Methamphetamines Scrn (NotDetected) U Benzodiazepines Scrn (NotDetected) Urine Cocaine Screen (NotDetected) U Marijuana (THC) Screen (NotDetected) Serum Alcohol mg/dL 07/21/22 07/21/22 Range/Units 18:57 19:36 WBC (3.8-10.6) k/uL RBC (3.80-5.40) m/uL Hgb (11.4-16.0) gm/dL Hct (34.0-46.0) % MCV (80.0-100.0) fL MCH (25.0-35.0) pg MCHC (31.0-37.0) g/dL RDW (11.5-15.5) % Plt Count (150-450) k/uL MPV Neutrophils % % Lymphocytes % % Monocytes % % Eosinophils % % Basophils % % Neutrophils # (1.3-7.7) k/uL Lymphocytes # (1.0-4.8) k/uL Monocytes # (0-1.0) k/uL Eosinophils # (0-0.7) k/uL Basophils # (0-0.2) k/uL Hypochromasia VBG pH 7.24 L (7.31-7.41) VBG pCO2 79 H* (37-51) mmHg VBG HCO3 33 H (24-28) mmol/L Sodium (137-145) mmol/L Potassium (3.5-5.1) mmol/L Chloride (98-107) mmol/L Carbon Dioxide (22-30) mmol/L Anion Gap mmol/L BUN (7-17) mg/dL Creatinine (0.52-1.04) mg/dL Est GFR (CKD-EPI)AfAm (>60 ml/min/1.73 sqM) Est GFR (CKD-EPI)NonAf (>60 ml/min/1.73 sqM) Glucose (74-99) mg/dL POC Glucose (mg/dL) (70-110) mg/dL POC Glu Business Proposal Rep ID Plasma Lactic Acid Srinivas (0.7-2.0) mmol/L Calcium (8.4-10.2) mg/dL Total Bilirubin (0.2-1.3) mg/dL AST (14-36) U/L ALT (4-34) U/L Alkaline Phosphatase (38-126) U/L Ammonia (<30) umol/L Troponin I (0.000-0.034) ng/mL NT-Pro-B Natriuret Pep pg/mL Total Protein (6.3-8.2) g/dL Albumin (3.5-5.0) g/dL Lipase (23-300) U/L Urine Color Yellow Urine Appearance Clear (Clear) Urine pH 5.5 (5.0-8.0) Ur Specific [place] 1.014 (1.001-1.035) Urine Protein 1+ H (Negative) Urine Glucose (UA) Negative (Negative) Urine Ketones Negative (Negative) Urine Blood Small H (Negative) Urine Nitrite Negative (Negative) Urine Bilirubin Negative (Negative) Urine Urobilinogen <2.0 (<2.0) mg/dL Ur Leukocyte Esterase Negative (Negative) Urine RBC 4 (0-5) /hpf Urine WBC 3 (0-5) /hpf Ur Squamous Epith Cells <1 (0-4) /hpf Hyaline Casts 17 H (0-2) /lpf Urine Mucus Rare H (None) /hpf Urine Opiates Screen Not Detected (NotDetected) Ur Oxycodone Screen Detected H (NotDetected) Urine Methadone Screen Not Detected (NotDetected) Ur Propoxyphene Screen Not Detected (NotDetected) Ur Barbiturates Screen Not Detected (NotDetected) U Tricyclic Antidepress Detected H (NotDetected) Ur Phencyclidine Scrn Not Detected (NotDetected) Ur Amphetamines Screen Not Detected (NotDetected) U Methamphetamines Scrn Not Detected (NotDetected) U Benzodiazepines Scrn Detected H (NotDetected) Urine Cocaine Screen Not Detected (NotDetected) U Marijuana (THC) Screen Detected H (NotDetected) Serum Alcohol mg/dL Critical Care Time Critical Care Time: Yes Total Critical Care Time: 31 Disposition Clinical Impression: Altered mental status, CO2 narcosis Disposition: ADMITTED IP TO THIS [facility] Condition: Stable Is patient prescribed a controlled substance at d/c from ED?: No Time of Disposition: 19:45 Decision to Admit Reason: Admit from EC Decision Date: 07/21/22 Decision Time: 19:45
[2022-07-21] MEDS ORDERED: TRIMETHOBENZAMIDE 100 MG/ML 2 ML VIAL IM ONE (22:44)
[2022-07-22] MEDS: HYDROcodone/APAP 7.5-325MG 1 EACH TAB PO PRN ×3 (02:02→20:40)
[2022-07-22] MEDS ORDERED: NON FORMULARY DRUG (Naloxone Hcl [Narcan] 4 MG Each) NASAL PRN (09:19)
[2022-07-22] MEDS: amLODIPine 10 MG TAB PO SCH (09:52)
[2022-07-22] MEDS: SPIRONOLACTONE 25 MG TAB PO SCH (09:52)
[2022-07-22] MEDS: DICYCLOMINE 10 MG CAP PO PRN (09:52)
[2022-07-22] MEDS: carvediloL 12.5 MG TAB PO SCH ×2 (09:52→17:03)
[2022-07-22] MEDS: QUEtiapine 100 MG TAB PO SCH ×2 (09:53→20:37)
[2022-07-22] MEDS: CITALOPRAM HYDROBROMIDE 20 MG TAB PO SCH (09:53)
[2022-07-22] MEDS: levETIRAcetam 500 MG TAB PO SCH ×2 (09:53→20:37)
[2022-07-22] MEDS: ONDANSETRON 4 MG/2 ML VIAL IVP PRN (09:53)
[2022-07-22] MEDS ORDERED: IPRATROPIUM-ALBUTEROL 3 ML NEB INHALATION PRN (12:01)
--- NOTE | 2022-07-22 12:08 | P.CNPUL ---
History of Present Illness Consult date: 07/22/22 Reason for consult: dyspnea History of present illness: 47-year-old female patient with known history of COPD, polysubstance abuse including opiates, and marijuana, in addition to history of seizure disorder, hypertension and previous history of a left lower lobe pneumonia for which the patient was hospitalized back in May 2022. The patient came into the emergency department yesterday for altered mental status. The patient came in to the emergency and she was also a 2 and she was unable to provide any history. She could not answer any questions and she was resting in bed without any significant respiratory distress. No family members were available and no further information was obtained from the patient. This is according to the emergency notes. She was hemodynamically stable. Further workup was done and the patient was found to have a WBC count of 10.9 with a hemoglobin of 15.7 and a platelet count of 298. Serum bicarb was 36 with a sodium level of 139 and a potassium level of 4 and the glucose was 123. Had alcohol level was negative. Her blood work showed a WBC count 10.9 with a hemoglobin 15.7. A venous blood gas was done and the patient had a pH of 7.24 with a pCO2 of 79. Urine drug screen was abnormal. It was positive for oxycodone, positive for tricyclics, positive for benzodiazepines and positive with positive for marijuana. The chest x-ray showed no acute pulmonary abnormalities. The patient had adequate expansion of both lungs. The previously described left lung pneumonia had essentially recovered. At the same time, CAT scan of the brain was done that showed evidence of right maxillary sinusitis without any other abnormalities. The patient was placed on BiPAP at a pressures of 10/5 cm of water and currently she is on oxygen at 3 L/m nasal cannula. She recovered her mentation and she is much more awake and alert at this point in time. She is a chronic smoker and she was smoking 2-3 PPD. She has 02 at home at 2 liters and a nebulizer Review of Systems Constitutional: Reports daytime sleepiness, Reports fatigue, Reports poor appetite, Reports weight loss Eyes: denies as per HPI, denies blurred vision, denies bulging eye, denies decreased vision, denies diplopia, denies discharge, denies dry eye, denies irritation, denies itching, denies pain, denies photophobia, denies loss of peripheral vision, denies loss of vision, denies tunnel vision/blind spots Ears: deny: decreased hearing, ear discharge, earache, tinnitus Ears, nose, mouth and throat: Reports as per HPI Breasts: absent: as per HPI, change in shape, gynecomastia, masses, nipple discharge, pain, skin changes, swelling Cardiovascular: Reports decreased exercise tolerance, Reports dyspnea on exertion Respiratory: Reports cough, Reports dyspnea, Reports home oxygen, Reports wheezing Gastrointestinal: Reports as per HPI Genitourinary: Reports as per HPI Menstruation: Reports as per HPI Musculoskeletal: Reports as per HPI Musculoskeletal: absent: ankle pain, ankle stiffness, ankle swelling Integumentary: Reports as per HPI Neurological: Reports change in mentation Psychiatric: Reports as per HPI Endocrine: Reports as per HPI Hematologic/Lymphatic: Reports as per HPI Allergic/Immunologic: Reports as per HPI Past Medical History Past Medical History: Asthma, Heart Failure, COPD, CVA/TIA, Fibromyalgia, Hypertension, Pneumonia, Rheumatoid Arthritis (RA), Seizure Disorder, Syncope Additional Past Medical History / Comment(s): 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 IBS, cellulitis of the chin, pt unsure of when last seizure was, CVA about 1 year ago History of Any Multi-Drug Resistant Organisms: MRSA Date of last positivie culture/infection: 07/2016 MDRO Source:: [facility] Past Surgical History: Appendectomy, Section, Cholecystectomy, Hysterectomy, Tubal Ligation Additional Past Surgical History / Comment(s): oral surgery . Pancreas biopsy May 2015. Past Anesthesia/Blood Transfusion Reactions: No Reported Reaction Past Psychological History: ADD/ADHD, Anxiety, Bipolar, Depression Additional Psychological History / Comment(s): Pt resides with her spouse and other family members. Pt states borderline personality disorder diagnosed around 2010. She has a cane and walker but does not normally use them. She does not drive, her spouse drives. Smoking Status: Current every day smoker Past Alcohol Use History: None Reported Additional Past Alcohol Use History / Comment(s): Pt started smoking in 1983 and was a 3 ppd smoker but about 6 months ago cut down to 2 cigarettes a day. Past Drug Use History: Marijuana Additional Drug Use History / Comment(s): Says she occasionally has edible marijuana- a couple times within the last year. - Past Family History Father History Unknown: Yes Family Medical History: No Reported History Additional Family Medical History / Comment(s): Pt adopted Mother History Unknown: Yes Additional Family Medical History / Comment(s): Pt adopted Medications and Allergies Home Medications Medication Instructions Recorded Confirmed Type Spironolactone [Aldactone] 25 mg PO DAILY 02/05/17 07/21/22 History Citalopram Hydrobromide [CeleXA] 40 mg PO DAILY 06/12/19 07/21/22 History Dicyclomine [Bentyl] 10 mg PO QID PRN 05/28/20 07/21/22 History carvediloL [Coreg] 25 mg PO BID 03/26/21 07/21/22 History oxyCODONE-APAP 10-325MG [Percocet 1 tab PO TID PRN 03/16/22 07/21/22 History 10-325 mg] Naloxone HCl [Narcan] 4 mg NASAL ONCE PRN 05/29/22 07/21/22 History amLODIPine [Norvasc] 10 mg PO DAILY #30 tab 06/04/22 07/21/22 Rx QUEtiapine [SEROquel] 100 mg PO DAILY 07/21/22 07/21/22 History QUEtiapine [SEROquel] 150 mg PO HS 07/21/22 07/21/22 History levETIRAcetam [Keppra] 500 mg PO BID 07/21/22 07/21/22 History Allergies Allergy/AdvReac Type Severity Reaction Status Date / Time adhesive Allergy Rash/Hives Verified 07/21/22 14:56 amoxicillin Allergy Anaphylaxis Verified 07/21/22 14:56 azithromycin [From Zithromax] Allergy Anaphylaxis Verified 07/21/22 14:56 cephalexin monohydrate Allergy Anaphylaxis Verified 07/21/22 14:56 [From Keflex] ciprofloxacin Allergy Anaphylaxis Verified 07/21/22 14:56 clindamycin Allergy Anaphylaxis Verified 07/21/22 14:56 Iodinated Contrast Media Allergy Anaphylaxis Verified 07/21/22 14:56 [Iodinated Contrast- Oral and IV Dye] levofloxacin [From Levaquin] Allergy Rash/Hives Verified 07/21/22 14:56 naproxen Allergy Anaphylaxis Verified 07/21/22 14:56 NSAIDS (Non-Steroidal Allergy Rash/Hives Verified 01/04/23 14:56 Anti-Inflamma shellfish derived Allergy Anaphylaxis Verified 05/29/22 14:21 Sulfa (Sulfonamide Allergy Anaphylaxis Verified 05/29/22 14:21 Antibiotics) sulfamethoxazole Allergy Anaphylaxis Verified 05/29/22 14:21 [From Bactrim] tramadol Allergy Unknown Verified 05/29/22 14:21 trimethoprim [From Bactrim] Allergy Anaphylaxis Verified 05/29/22 14:21 Physical Exam Vitals: Vital Signs Temp Pulse Pulse Resp BP BP Pulse Ox 07/22/22 11:01 85 18 155/87 94 L 07/22/22 08:29 96 07/22/22 08:11 16 96 07/22/22 08:07 98.2 F 87 16 171/95 97 07/22/22 06:21 85 16 180/99 95 07/22/22 02:15 84 18 169/108 96 07/22/22 00:17 78 18 182/146 07/21/22 22:29 85 20 195/125 97 07/21/22 21:15 80 18 153/95 96 07/21/22 21:00 76 12 160/96 96 07/21/22 20:45 76 12 153/108 96 07/21/22 20:30 78 12 169/99 96 07/21/22 20:25 07/21/22 20:00 81 12 191/101 96 07/21/22 14:40 98.6 F 94 20 131/92 97 FiO2 07/22/22 11:01 07/22/22 08:29 07/22/22 08:11 07/22/22 08:07 07/22/22 06:21 07/22/22 02:15 07/22/22 00:17 07/21/22 22:29 07/21/22 21:15 07/21/22 21:00 07/21/22 20:45 07/21/22 20:30 07/21/22 20:25 50 07/21/22 20:00 07/21/22 14:40 Intake and Output 07/21/22 07/22/22 07/22/22 22:59 06:59 14:59 Other: Voiding Method Bedside Commode Weight 77.111 kg GENERAL: The patient is alert and oriented x3, not in any acute distress. Well developed, well nourished. The patient is currently on 3 L O2 nasal cannula. She is awake and alert and following answers and commands without any major difficulties. HEENT: Pupils are round and equally reacting to light. EOMI. No scleral icterus. No conjunctival pallor. Normocephalic, atraumatic. No pharyngeal erythema. No thyromegaly. CARDIOVASCULAR: S1 and S2 present. No murmurs, rubs, or gallops. -PULMONARY: Chest is diminished breath sounds along with scattered expiratory wheezes throughout the lung is bilaterally and there is obvious prolongation of the exhalation phase of breathing. ABDOMEN: Soft, nontender, nondistended, normoactive bowel sounds. No palpable o rganomegaly. MUSCULOSKELETAL: No joint swelling or deformity. EXTREMITIES: No cyanosis, clubbing, or pedal edema. NEUROLOGICAL: Gross neurological examination did not reveal any focal deficits. SKIN: No rashes. no petechiae. Results - Laboratory Findings CBC and BMP: 07/21/22 14:50 07/21/22 14:50 Abnormal lab findings: Abnormal Labs 07/21/22 07/21/22 07/21/22 14:50 14:50 16:29 WBC 10.9 H MCHC 30.4 L VBG pH VBG pCO2 VBG HCO3 Chloride 94 L Carbon Dioxide 36 H Creatinine 1.07 H Glucose 123 H POC Glucose (mg/dL) 129 H Urine Protein Urine Blood Hyaline Casts Urine Mucus Ur Oxycodone Screen U Tricyclic Antidepress U Benzodiazepines Scrn U Marijuana (THC) Screen 07/21/22 07/21/22 18:57 19:36 WBC MCHC VBG pH 7.24 L VBG pCO2 79 H* VBG HCO3 33 H Chloride Carbon Dioxide Creatinine Glucose POC Glucose (mg/dL) Urine Protein 1+ H Urine Blood Small H Hyaline Casts 17 H Urine Mucus Rare H Ur Oxycodone Screen Detected H U Tricyclic Antidepress Detected H U Benzodiazepines Scrn Detected H U Marijuana (THC) Screen Detected H Assessment and Plan Plan: Altered mentation probably due to a component of CO2 narcosis and a sensation with COPD exacerbation. The patient's condition has been optimized with BiPAP at a pressure of 10/5 and currently the patient is on 3 L O2 nasal cannula. Less bronchospastic and wheezy. Chest x-ray is free of any acute pulmonary infiltrates. Chronic advanced COPD, oxygen dependent at 2 L on outpatient basis History of chronic smoking and the patient was smoking up to 3-4 packs of cigarettes a day History of recent left lower lobe pneumonia/lingular pneumonia, recovered Polysubstance abuse including marijuana Rheumatoid arthritis History of seizure disorders History of CVA Fibromyalgia History of migraines Chronic kidney stones IBS Plan Start the patient on DuoNeb neb 4 times a day every 6 hours Start the patient IV Solu-Medrol 60 mg every 6 hours Using the BiPAP overnight at a pressure of 10/5 currently on 3 L Chest x-ray was reviewed We'll check influenza a and influenza B and Covid 19 and RSV We'll monitor the mental status. CAT scan of the brain is negative Resume all medications Nicotine patch Heparin subcu portably prophylaxis We'll continue to follow.
[2022-07-22] MEDS: NICOTINE 21MG/24HR PATCH TRANSDERM SCH (12:32)
[2022-07-22] MEDS: HEPARIN SODIUM,PORCINE/PF 5,000 UNIT/0.5 ML SYRINGE SQ SCH ×2 (12:32→20:37)
[2022-07-22] MEDS: diphenhydrAMINE 25 MG CAP PO PRN (15:11)
--- NOTE | 2022-07-22 15:14 | HP ---
HISTORY AND PHYSICAL CHIEF COMPLAINT: Shortness of breath and as well as change in mental status. HISTORY OF PRESENT ILLNESS: This is a 47-year-old woman with a past medical history of COPD, history of polysubstance abuse, and multiple medical problems, who was admitted with shortness of breath and as well as some changes in mental status. The patient was found to have CO2 narcosis. The VBG showed CO2 of 79. The patient was started on bronchodilators, and the drug screen showed multiple oxycodone, tricyclics, benzodiazepine, and marijuana. Alcohol level was less than 10. There is no history of any fever, rigors, or chills. Multiple consultants are following the patient closely. The patient is on bronchodilators and steroids. PAST MEDICAL HISTORY: Reviewed includes asthma, CHF, and COPD. The rest of the history and the rest of the chart are reviewed. HOME MEDICATIONS: Reviewed include Aldactone 25 mg daily. Doses and the rest of the medications are reviewed. ALLERGIES: Adhesives. The rest of the allergies are reviewed. FAMILY HISTORY: The patient is adopted. SOCIAL HISTORY: Smoking. Possible polysubstance abuse including opiates. PHYSICAL EXAMINATION: VITAL SIGNS: Pulse is 85, blood pressure 155/87, respirations 18. HEENT: Conjunctivae are normal. NECK: Obese. CARDIOVASCULAR: S1 and S2 muffled. RESPIRATORY: Breath sounds diminished at the bases. Few scattered rhonchi and crackles. ABDOMEN: Soft. NERVOUS SYSTEM: No focal deficits. SKIN: No ulcers or rashes. JOINTS: No active deforming arthropathy. LABORATORY DATA: Reviewed. ASSESSMENT: 1. Chronic obstructive pulmonary disease acute exacerbation with acute hypoxic hypercarbic respiratory failure. 2. Change in mental status, possibly secondary to hypercarbia. 3. Rheumatoid arthritis. 4. History of seizure disorder. 5. History of asthma. 6. History of cerebrovascular accident and transient ischemic attack. 7. Hypertension. 8. Multiple medical issues. RECOMMENDATIONS: This is a 47-year-old woman, who presented with multiple complex medical issues. We will monitor the patient closely. We will initiate broad-spectrum IV antibiotics, intensive bronchodilator treatment, and IV steroids. Otherwise, monitor blood sugars closely. Resume the home medications once they are confirmed. DVT prophylaxis. Overall prognosis is guarded because of multiple complex medical issues. Further recommendations to follow. I will also check RSV, flu, and COVID also. MMODL / IJN: [id number] /
[2022-07-22] MEDS: IPRATROPIUM-ALBUTEROL 3 ML NEB INHALATION SCH ×2 (15:36→20:03)
[2022-07-22] MEDS: methylPREDNISolone SOD SUCCI 125 MG/2 ML VIAL IV SCH ×2 (17:03→23:49)
[2022-07-22] MEDS: SYMBICORT 160-4.5 MCG INHALER INHALATION SCH (20:03)
--- NOTE | 2022-07-22 21:01 | CDI ---
Documentation Clarification Form Date: 08/05/2022 8:46:00 PM From: Tete Mckinley Admit Date: 07/21/2022 8:29:00 PM Patient Name: Yolie Yeboah Visit Number: [id number] Discharge Date: ATTENTION: The Clinical Documentation Specialists (CDI) and [facility] Coding Staff appreciate your assistance in clarifying documentation. Please respond to the clarification below the line at the bottom and electronically sign. The CDI & [facility] Coding staff will review the response and follow-up if needed. Please note: Queries are made part of the Legal Health Record. If you have any questions, please contact the author of this message via ITS. Dr. Shaneka Anaya Your patient has the documented diagnosis of unspecified CHF 07/22, H&P. Additional information regarding the type, acuity of CHF is requested. History/Risk Factors: 47-year-old female presents to the ED with shortness of breath and changes in mental status. Medical History: COPD, CHF and Asthma. 07/22, H&P. Clinical Indicators: VS/Pulse OX: BP 131/92; HR 94; Temp 98.6; RR 20; SpO2 97% 6L nasal cannula BNP: 07/21 769 Echocardiogram Results: 03/27/2021 EF greater than 55%. Chest X Ray: 07/21 Clearing of the left sided lingula pneumonia and pleural reaction compared to old exam. Treatment: 07/22 Coreg 25mg PO BID; 07/22 Aldactone 25mg PO Daily In your professional opinion, can you please clarify the acuity and type of CHF if known? [x ] Chronic Diastolic Heart Failure (preserved EF) [ ] Other, please specify [ ] Unable to determine (Template Last Revised: August 2020) MTDD
[2022-07-23] MEDS: HYDROcodone/APAP 7.5-325MG 1 EACH TAB PO PRN (06:11)
[2022-07-23] MEDS: methylPREDNISolone SOD SUCCI 125 MG/2 ML VIAL IV SCH ×4 (06:11→23:25)
[2022-07-23] MEDS: carvediloL 12.5 MG TAB PO SCH ×2 (06:11→17:11)
[2022-07-23] MEDS: diphenhydrAMINE 25 MG CAP PO PRN (06:15)
[2022-07-23] MEDS: IPRATROPIUM-ALBUTEROL 3 ML NEB INHALATION SCH ×4 (08:18→21:19)
[2022-07-23] MEDS: SYMBICORT 160-4.5 MCG INHALER INHALATION SCH ×2 (08:18→21:19)
[2022-07-23 08:37] LABS: Basophils % (A) 0 %; Eosinophils % (A) 0 %; HCT 41.6 % (34.0-46.0); HGB 12.9 gm/dL (11.4-16.0); Hypochromasia Marked; Lymphocytes # (A) 0.6 k/uL (1.0-4.8); Lymphocytes % (A) 17 %; MCH 27.4 pg (25.0-35.0); MCHC 30.9 g/dL (31.0-37.0); MCV 88.6 fL (80.0-100.0); Mean Platelet Volume 8.1; Monocytes # (A) 0.1 k/uL (0-1.0); Monocytes % (A) 1 %; Neutrophils # (A) 2.9 k/uL (1.3-7.7); Neutrophils % (A) 82 %; Platelet Count 252 k/uL (150-450); RBC 4.69 m/uL (3.80-5.40); RDW 12.7 % (11.5-15.5); WBC 3.6 k/uL (3.8-10.6)
[2022-07-23] MEDS: NICOTINE 21MG/24HR PATCH TRANSDERM SCH (08:43)
[2022-07-23] MEDS: HEPARIN SODIUM,PORCINE/PF 5,000 UNIT/0.5 ML SYRINGE SQ SCH ×2 (08:44→21:08)
[2022-07-23] MEDS: levETIRAcetam 500 MG TAB PO SCH ×2 (08:44→21:07)
[2022-07-23] MEDS: QUEtiapine 100 MG TAB PO SCH ×2 (08:44→21:07)
[2022-07-23] MEDS: SPIRONOLACTONE 25 MG TAB PO SCH (08:44)
[2022-07-23] MEDS: amLODIPine 10 MG TAB PO SCH (08:44)
[2022-07-23] MEDS: CITALOPRAM HYDROBROMIDE 20 MG TAB PO SCH (08:44)
[2022-07-23 08:59] LABS: African American GFR (CKD) >90 (>60 ml/min/1.73 sqM); Blood Urea Nitrogen 13 mg/dL (7-17); Calcium 8.7 mg/dL (8.4-10.2); Chloride 95 mmol/L (98-107); Glucose 201 mg/dL (74-99); Non-African American GFR(CKD) >90 (>60 ml/min/1.73 sqM); Potassium 4.1 mmol/L (3.5-5.1); Sodium 140 mmol/L (137-145)
[2022-07-23 09:06] LABS: Anion Gap 6 mmol/L
[2022-07-23 09:26] LABS: Carbon Dioxide 39 mmol/L (22-30)
--- NOTE | 2022-07-23 10:24 | P.PN ---
Subjective Progress Note Date: 07/23/22 47-year-old female patient with known history of COPD, polysubstance abuse including opiates, and marijuana, in addition to history of seizure disorder, hypertension and previous history of a left lower lobe pneumonia for which the patient was hospitalized back in May 2022. The patient came into the emergency department yesterday for altered mental status. The patient came in to the emergency and she was also a 2 and she was unable to provide any history. She could not answer any questions and she was resting in bed without any significant respiratory distress. No family members were available and no further information was obtained from the patient. This is according to the emergency notes. She was hemodynamically stable. Further workup was done and the patient was found to have a WBC count of 10.9 with a hemoglobin of 15.7 and a platelet count of 298. Serum bicarb was 36 with a sodium level of 139 and a potassium level of 4 and the glucose was 123. Had alcohol level was negative. Her blood work showed a WBC count 10.9 with a hemoglobin 15.7. A venous blood gas was done and the patient had a pH of 7.24 with a pCO2 of 79. Urine drug screen was abnormal. It was positive for oxycodone, positive for tricyclics, positive for benzodiazepines and positive with positive for marijuana. The chest x-ray showed no acute pulmonary abnormalities. The patient had adequate expansion of both lungs. The previously described left lung pneumonia had essentially recovered. At the same time, CAT scan of the brain was done that showed evidence of right maxillary sinusitis without any other abnormalities. The patient was placed on BiPAP at a pressures of 10/5 cm of water and currently she is on oxygen at 3 L/m nasal cannula. She recovered her mentation and she is much more awake and alert at this point in time. She is a chronic smoker and she was smoking 2-3 PPD. She has 02 at home at 2 liters and a nebulizer 07/23/2022, mental status is back to the baseline and the patient has no signs of any CO2 narcosis altered mentation. Noted the patient was has less for an ac [place] hypercapnic respiratory failure and COPD exacerbation. She improved. She was placed on BiPAP and currently she is off the BiPAP and she is on oxygen at 3 L nasal cannula. She is on bronchodilators and steroids. The viral screen came back negative including influenza, Covid 19 and RSV. She remains on bronchodilators. She remains on IV Solu-Medrol. She is lethargic and more awake. She is communicating. No focal neurological deficit at this point in time. Objective - Vital Signs Vital signs: Vital Signs Temp 98.1 F 07/23/22 04:00 Pulse 92 07/23/22 08:34 Resp 15 07/23/22 04:00 BP 154/89 07/23/22 04:00 Pulse Ox 96 07/23/22 04:00 FiO2 50 07/21/22 20:25 Intake & Output 07/22/22 07/23/22 07/23/22 18:59 06:59 18:59 Intake Total 10 Balance 10 Weight 77.111 kg Intake: IV 10 Invasive Line 1 10 Other: Voiding Method Bedside Commode Bedside Commode # Voids 2 1 - Exam GENERAL: The patient is alert and oriented x3, not in any acute distress. Well developed, well nourished. The patient is currently on 3 L O2 nasal cannula. She is awake and alert and following answers and commands without any major difficulties. HEENT: Pupils are round and equally reacting to light. EOMI. No scleral icterus. No conjunctival pallor. Normocephalic, atraumatic. No pharyngeal erythema. No thyromegaly. CARDIOVASCULAR: S1 and S2 present. No murmurs, rubs, or gallops. -PULMONARY: Chest is diminished breath sounds along with scattered expiratory wheezes throughout the lung is bilaterally and there is obvious prolongation of the exhalation phase of breathing. ABDOMEN: Soft, nontender, nondistended, normoactive bowel sounds. No palpable organomegaly. MUSCULOSKELETAL: No joint swelling or deformity. EXTREMITIES: No cyanosis, clubbing, or pedal edema. NEUROLOGICAL: Gross neurological examination did not reveal any focal deficits. SKIN: No rashes. no petechiae. - Labs CBC & Chem 7: 07/23/22 07:24 07/23/22 07:24 Labs: Abnormal Lab Results - Last 24 Hours (Table) 07/23/22 07/23/22 Range/Units 07:24 07:24 WBC 3.6 L (3.8-10.6) k/uL MCHC 30.9 L (31.0-37.0) g/dL Lymphocytes # 0.6 L (1.0-4.8) k/uL Chloride 95 L (98-107) mmol/L Carbon Dioxide 39 H (22-30) mmol/L Creatinine 0.50 L (0.52-1.04) mg/dL Glucose 201 H (74-99) mg/dL Assessment and Plan Plan: Altered mentation probably due to a component of CO2 narcosis and a sensation with COPD exacerbation, recovered Chronic advanced COPD, oxygen dependent at 2 L on outpatient basis with secondary exacerbation History of chronic smoking and the patient was smoking up to 3-4 packs of cigarettes a day History of recent left lower lobe pneumonia/lingular pneumonia, recovered Polysubstance abuse including marijuana Rheumatoid arthritis History of seizure disorders History of CVA Fibromyalgia History of migraines Chronic kidney stones IBS Plan Clinically improving and the patient is currently off the BiPAP Start the patient on DuoNeb neb 4 times a day every 6 hours Start the patient IV Solu-Medrol 60 mg every 6 hours, was started tapering her prednisone burst taper as of tomorrow Did not use BiPAP overnight Chest x-ray was reviewed We'll check influenza a and influenza B and Covid 19 and RSV, the vital screening was completed and was negative We'll monitor the mental status. CAT scan of the brain is negative Resume all medications Nicotine patch Heparin subcu portably prophylaxis We'll continue to follow. Clinically better compared to yesterday with more
--- NOTE | 2022-07-23 11:59 | CDI ---
Documentation Clarification Form Date: 07/23/2022 11:08:44 AM From: Tete Mckinley RN CCDS Admit Date: 07/21/2022 8:29:00 PM Patient Name: Yolie Yeboah Visit Number: [id number] Discharge Date: ATTENTION: The Clinical Documentation Specialists (CDI) and [facility] Coding Staff appreciate your assistance in clarifying documentation. Please respond to the clarification below the line at the bottom and electronically sign. The CDI & [facility] Coding staff will review the response and follow-up if needed. Please note: Queries are made part of the Legal Health Record. If you have any questions, please contact the author of this message via ITS. Dr. Shaneka Anaya Your patient has the documented symptom of Change in Mental Status 07/22, H&P. Additional clarification regarding the etiology/cause of this symptom is requested. History/Risk Factors: 47-year-old female presents to the ED with shortness of breath and some changes in mental status. Medical History: Asthma, CHF and COPD Clinical Indicators: H&P, 07/22: The patient was admitted with shortness of breath and as well as some changes in mental status. The patient was found to have CO2 narcosis. Pulmonary note, 07/23: Altered mentation probably due to component of CO2 narcosis and a sensation with COPD exacerbation, recovered. VSS, 07/21 14:40: B/P 131/92; HR 94; RR 20; SpO2 97% 6L nasal cannula SpO2, 07/21 20:00: 96% BiPAP FiO2 50 SpO2, 15 02:15: 96% 6L nasal cannula Labs: 07/21 Carbon Dioxide 36; Blood Gas, 07/21: PH 7.24; pCO2 79; HCO3 33 CXR, 07/21: Normal chest. There is clearing of the left sided lingula pneumonia and pleural reaction compared to old exam. Brain CT, 07/21: Negative CT scan of the brain. Treatment: BiPAP FiO2 50; 6L nasal cannula and CT Brain. Please clarify the etiology of the symptom of Change in Mental Status: [ x ] Metabolic Encephalopathy due to hypercarbia [ ] Other condition (please specify) [ ] Unable to determine (Template Last Revised: August 2020) MTDD
[2022-07-24] MEDS: methylPREDNISolone SOD SUCCI 125 MG/2 ML VIAL IV SCH ×2 (05:39→14:33)
[2022-07-24] MEDS: HYDROcodone/APAP 7.5-325MG 1 EACH TAB PO PRN ×2 (06:07→12:03)
[2022-07-24] MEDS: amLODIPine 10 MG TAB PO SCH (09:04)
[2022-07-24] MEDS: NICOTINE 21MG/24HR PATCH TRANSDERM SCH (09:04)
[2022-07-24] MEDS: CITALOPRAM HYDROBROMIDE 20 MG TAB PO SCH (09:04)
[2022-07-24] MEDS: HEPARIN SODIUM,PORCINE/PF 5,000 UNIT/0.5 ML SYRINGE SQ SCH ×2 (09:04→21:21)
[2022-07-24] MEDS: carvediloL 12.5 MG TAB PO SCH ×2 (09:04→16:30)
[2022-07-24] MEDS: IPRATROPIUM-ALBUTEROL 3 ML NEB INHALATION SCH ×4 (09:08→20:43)
[2022-07-24] MEDS: SYMBICORT 160-4.5 MCG INHALER INHALATION SCH ×2 (09:08→20:43)
[2022-07-24] MEDS: levETIRAcetam 500 MG TAB PO SCH ×2 (10:12→21:21)
[2022-07-24] MEDS: SPIRONOLACTONE 25 MG TAB PO SCH (10:12)
[2022-07-24] MEDS: QUEtiapine 100 MG TAB PO SCH ×2 (10:12→21:21)
[2022-07-24 11:31] LABS: Basophils # (A) 0.01 X 10*3/uL (0.00-0.10); Basophils % (A) 0.1 %; Eosinophils # (A) 0 X 10*3/uL (0.04-0.35); Eosinophils % (A) 0 %; HCT 39.6 % (37.2-46.3); HGB 12.4 g/dL (12.0-15.0); Immature Grans, Automated 0.4 %; Lymphocytes # (A) 0.88 X 10*3/uL (0.90-5.00); Lymphocytes % (A) 9.6 %; MCHC 31.3 g/dL (32.0-37.0); MCV 86.3 fL (80.0-97.0); Mean Platelet Volume 10.2 fL (9.5-12.2); Monocytes # (A) 0.31 X 10*3/uL (0.20-1.00); Monocytes % (A) 3.4 %; NRBC Per 100 WBC 0 /100 WBCS (0.0-0.0); Neutrophils # (A) 7.93 X 10*3/uL (1.80-7.70); Neutrophils % (A) 86.5 %; Platelet Count 290 X 10*3/uL (140-440); RBC 4.59 X 10*6/uL (4.10-5.20); RDW 13.3 % (11.5-14.5); WBC 9.17 X 10*3/uL (4.50-10.00)
[2022-07-24 11:39] LABS: African American GFR (CKD) 125.8 (60.0-200.0); Anion Gap 11.8 mmol/L (10.00-18.00); BUN/Creat Ratio 28.83 Ratio (12.00-20.00); Blood Urea Nitrogen 17.3 mg/dL (9.0-27.0); Calcium 9.4 mg/dL (8.7-10.3); Carbon Dioxide 33.2 mmol/L (20.0-27.5); Non-African American GFR(CKD) 108.5 (60.0-200.0); Potassium 3.7 mmol/L (3.5-5.5)
--- NOTE | 2022-07-24 13:51 | P.PN ---
Subjective Progress Note Date: 07/24/22 47-year-old female patient with known history of COPD, polysubstance abuse including opiates, and marijuana, in addition to history of seizure disorder, hypertension and previous history of a left lower lobe pneumonia for which the patient was hospitalized back in May 2022. The patient came into the emergency department yesterday for altered mental status. The patient came in to the emergency and she was also a 2 and she was unable to provide any history. She could not answer any questions and she was resting in bed without any significant respiratory distress. No family members were available and no further information was obtained from the patient. This is according to the emergency notes. She was hemodynamically stable. Further workup was done and the patient was found to have a WBC count of 10.9 with a hemoglobin of 15.7 and a platelet count of 298. Serum bicarb was 36 with a sodium level of 139 and a potassium level of 4 and the glucose was 123. Had alcohol level was negative. Her blood work showed a WBC count 10.9 with a hemoglobin 15.7. A venous blood gas was done and the patient had a pH of 7.24 with a pCO2 of 79. Urine drug screen was abnormal. It was positive for oxycodone, positive for tricyclics, positive for benzodiazepines and positive with positive for marijuana. The chest x-ray showed no acute pulmonary abnormalities. The patient had adequate expansion of both lungs. The previously described left lung pneumonia had essentially recovered. At the same time, CAT scan of the brain was done that showed evidence of right maxillary sinusitis without any other abnormalities. The patient was placed on BiPAP at a pressures of 10/5 cm of water and currently she is on oxygen at 3 L/m nasal cannula. She recovered her mentation and she is much more awake and alert at this point in time. She is a chronic smoker and she was smoking 2-3 PPD. She has 02 at home at 2 liters and a nebulizer 07/23/2022, mental status is back to the baseline and the patient has no signs of any CO2 narcosis altered mentation. Noted the patient was has less for an ac [place] hypercapnic respiratory failure and COPD exacerbation. She improved. She was placed on BiPAP and currently she is off the BiPAP and she is on oxygen at 3 L nasal cannula. She is on bronchodilators and steroids. The viral screen came back negative including influenza, Covid 19 and RSV. She remains on bronchodilators. She remains on IV Solu-Medrol. She is lethargic and more awake. She is communicating. No focal neurological deficit at this point in time. 07/24/2022, there is marked improvement in the patient's condition and the patient's breathing is improved considerably. She is only on 2 L of O2 nasal cannula. BiPAP is at the bedside gets were not using it on a regular basis. She remains on bronchodilators and steroids. She is having breakfast and lunch. No focal neurological deficits.Labs from today showed a loose count of 9.1 with a hemoglobin of 12.4 and a platelet count of 290. Sodium is at 139, BUN is at 70 with a creatinine of 0.6. Covid 19 was negative. Influenza screen was negative. Objective - Vital Signs Vital signs: Vital Signs Temp 98.0 F 07/24/22 07:10 Pulse 94 07/24/22 12:30 Resp 18 07/24/22 07:10 BP 139/66 07/24/22 07:10 Pulse Ox 97 07/24/22 09:10 FiO2 30 07/24/22 00:41 Intake & Output 07/23/22 07/24/22 07/24/22 18:59 06:59 18:59 Weight 77.8 kg Other: Voiding Method Toilet Toilet # Voids 1 - Exam GENERAL: The patient is alert and oriented x3, not in any acute distress. Well developed, well nourished. The patient is currently on 3 L O2 nasal cannula. She is awake and alert and following answers and commands without any major difficulties. HEENT: Pupils are round and equally reacting to light. EOMI. No scleral icterus. No conjunctival pallor. Normocephalic, atraumatic. No pharyngeal erythema. No thyromegaly. CARDIOVASCULAR: S1 and S2 present. No murmurs, rubs, or gallops. -PULMONARY: Chest showed shows marked improvement in the bronchospasm wheezing and that is marked improvement in air entry bilaterally ABDOMEN: Soft, nontender, nondistended, normoactive bowel sounds. No palpable organomegaly. MUSCULOSKELETAL: No joint swelling or deformity. EXTREMITIES: No cyanosis, clubbing, or pedal edema. NEUROLOGICAL: Gross neurological examination did not reveal any focal deficits. SKIN: No rashes. no petechiae. - Labs CBC & Chem 7: 07/24/22 06:55 07/24/22 06:55 Labs: Abnormal Lab Results - Last 24 Hours (Table) 07/24/22 07/24/22 Range/Units 06:55 06:55 MCHC 31.3 L (32.0-37.0) g/dL Neutrophils # 7.93 H (1.80-7.70) X 10*3/uL Lymphocytes # 0.88 L (0.90-5.00) X 10*3/uL Eosinophils # 0 L (0.04-0.35) X 10*3/uL Chloride 94 L (96-109) mmol/L Carbon Dioxide 33.2 H (20.0-27.5) mmol/L BUN/Creatinine Ratio 28.83 H (12.00-20.00) Ratio Glucose 201 H (70-110) mg/dL Assessment and Plan Plan: Altered mentation probably due to a component of CO2 narcosis and a sensation with COPD exacerbation, recovered Chronic advanced COPD, oxygen dependent at 2 L on outpatient basis with secondary exacerbation History of chronic smoking and the patient was smoking up to 3-4 packs of c igarettes a day History of recent left lower lobe pneumonia/lingular pneumonia, recovered Polysubstance abuse including marijuana Rheumatoid arthritis History of seizure disorders History of CVA Fibromyalgia History of migraines Chronic kidney stones IBS Plan Clinically improving and the patient is currently off the BiPAP, and on today's evaluation is marked improvement in her bronchospasm and wheezing. The patient's is feeling much improved. Start the patient on DuoNeb neb 4 times a day every 6 hours Start the prednisone burst taper and discontinue the IV Solu-Medrol Did not use BiPAP overnight Chest x-ray was reviewed We'll check influenza a and influenza B and Covid 19 and RSV, the vital screening was completed and was negative We'll monitor the mental status. CAT scan of the brain is negative Resume all medications Nicotine patch Heparin subcu portably prophylaxis We'll continue to follow. Clinically better compared to yesterday with more, possible discharge within nex t 24 hours
[2022-07-24] MEDS: predniSONE 20 MG TAB PO SCH (14:54)
--- NOTE | 2022-07-25 00:27 | P.PN ---
Subjective Progress Note Date: 07/23/22 Patient is a 47-year-old female with a past medical history of COPD, polysubstance abuse presenting to the hospital with shortness of breath and altered mental status found to have CO2 narcosis. 07/23/2022 Patient is currently lying in the bed. Awake alert and oriented. Patient was on BiPAP and currently titrated down to 3 L oxygen via nasal cannula. Mental status is improving. No complaints of chest pain or worsening shortness of breath. Continued on IV Solu-Medrol and duo nebs. Laboratory test showed WBC 3.6 hemoglobin 12.9 and platelets 252 Sodium 140 potassium 4.1 chloride 195 bicarb is 39 BUN 13 and creatinine 0.5 and blood sugar is 201 Procalcitonin level 0.02 Pulmonary is on board. Current medications reviewed. Objective - Vital Signs Vital signs: Vital Signs Temp 97.7 F 07/23/22 08:00 Pulse 95 07/23/22 12:00 Resp 20 07/23/22 13:51 BP 122/70 07/23/22 12:00 Pulse Ox 92 L 07/23/22 12:00 FiO2 50 07/21/22 20:25 Intake & Output 07/22/22 07/23/22 07/23/22 18:59 06:59 18:59 Intake Total 10 Balance 10 Weight 77.111 kg Intake: IV 10 Invasive Line 1 10 Other: Voiding Method Bedside Commode Bedside Commode # Voids 2 1 - Exam PHYSICAL EXAMINATION: Patient is lying in the bed comfortably, no acute distress, awake alert and oriented.. HEENT: Normocephalic. Neck is supple. Pupils reactive. Nostrils clear. Oral cavity is moist. Neck reveals no JVD, carotid bruits, or thyromegaly. CHEST EXAMINATION: Trachea is central. Symmetrical expansion bilateral wheezing and scattered rhonchi and rales present. Nonlabored breathing.. CARDIAC: Normal S1, S2 with no gallops. No murmurs ABDOMEN: Soft. Bowel sounds present. Nontender. No organomegaly. No abdominal bruits. Extremities: reveal no edema. No clubbing or cyanosis Neurologically awake, alert, oriented x3 with well-coordinated movements. No focal deficits noted Skin: No rash or skin lesions. Psychiatric: Coperative. Nonsuicidal, Musculoskeletal: No joint swelling or deformity. Normal range of motion. - Labs CBC & Chem 7: 07/24/22 06:55 07/24/22 06:55 Labs: Abnormal Lab Results - Last 24 Hours (Table) 07/23/22 07/23/22 Range/Units 07:24 07:24 WBC 3.6 L (3.8-10.6) k/uL MCHC 30.9 L (31.0-37.0) g/dL Lymphocytes # 0.6 L (1.0-4.8) k/uL Chloride 95 L (98-107) mmol/L Carbon Dioxide 39 H (22-30) mmol/L Creatinine 0.50 L (0.52-1.04) mg/dL Glucose 201 H (74-99) mg/dL Assessment and Plan Assessment: Altered mental status likely due to CO2 narcosis. Improving now Acute COPD exacerbation Aggressive COPD on home oxygen Polysubstance abuse including marijuana use Pancreatitis History of seizure disorder History of CVA Fibromyalgia Migraine headaches History of renal stones IBS GI and DVT prophylaxis. Plan: Patient will be continued on IV Solu-Medrol and duo nebs and Symbicort. Continue with oxygen supplementation and titrate down to room air. Continue with home medications including Keppra. Pulmonary is on board and follow closely. Time with Patient: Greater than 30
--- NOTE | 2022-07-25 00:30 | P.PN ---
Subjective Progress Note Date: 07/24/22 Patient is a 47-year-old female with a past medical history of COPD, polysubstance abuse presenting to the hospital with shortness of breath and altered mental status found to have CO2 narcosis. 07/23/2022 Patient is currently lying in the bed. Awake alert and oriented. Patient was on BiPAP and currently titrated down to 3 L oxygen via nasal cannula. Mental status is improving. No complaints of chest pain or worsening shortness of breath. Continued on IV Solu-Medrol and duo nebs. Laboratory test showed WBC 3.6 hemoglobin 12.9 and platelets 252 Sodium 140 potassium 4.1 chloride 195 bicarb is 39 BUN 13 and creatinine 0.5 and blood sugar is 201 Procalcitonin level 0.02 Pulmonary is on board. 07/24/2021 Patient is currently sitting on side of the road. Awake alert and oriented x3. Requiring oxygen at 3 L via nasal cannula and is being titrated down to room air. Mentation is much improved. No complaints of chest pain or shortness of breath. No nausea vomiting abdominal pain or diarrhea. Cough improved as well. Laboratory data showed WBC 9.1 hemoglobin 12.4 and platelets 290 Sodium 139 potassium 3.7 chloride 94 bicarb is 33.2 BUN 17.3 and creatinine 0.6 and blood sugar is 201. Patient is being continued on IV Solu-Medrol changed to prednisone 40 mg daily. Continue duo nebs and Symbicort. Patient did not require BiPAP last night. Current medications reviewed. Objective - Vital Signs Vital signs: Vital Signs Temp 98.3 F 07/24/22 20:00 Pulse 81 07/24/22 20:00 Resp 17 07/24/22 20:00 BP 164/97 07/24/22 20:00 Pulse Ox 94 L 07/24/22 20:00 FiO2 30 07/24/22 00:41 Intake & Output 07/24/22 07/24/22 07/25/22 06:59 18:59 06:59 Weight 77.8 kg Other: Voiding Method Toilet Toilet # Voids 1 1 - Exam PHYSICAL EXAMINATION: Patient is lying in the bed comfortably, no acute distress, awake alert and oriented.. HEENT: Normocephalic. Neck is supple. Pupils reactive. Nostrils clear. Oral cavity is moist. Neck reveals no JVD, carotid bruits, or thyromegaly. CHEST EXAMINATION: Trachea is central. Symmetrical expansion.Mild expiratory wheezing. Scattered rhonchi. No crackles. Nonlabored breathing. CARDIAC: Normal S1, S2 with no gallops. No murmurs ABDOMEN: Soft. Bowel sounds present. Nontender. No organomegaly. No abdominal bruits. Extremities: reveal no edema. No clubbing or cyanosis Neurologically awake, alert, oriented x3 with well-coordinated movements. No focal deficits noted Skin: No rash or skin lesions. Psychiatric: Coperative. Nonsuicidal, Musculoskeletal: No joint swelling or deformity. Normal range of motion. - Labs CBC & Chem 7: 07/24/22 06:55 07/24/22 06:55 Labs: Abnormal Lab Results - Last 24 Hours (Table) 07/24/22 07/24/22 Range/Units 06:55 06:55 MCHC 31.3 L (32.0-37.0) g/dL Neutrophils # 7.93 H (1.80-7.70) X 10*3/uL Lymphocytes # 0.88 L (0.90-5.00) X 10*3/uL Eosinophils # 0 L (0.04-0.35) X 10*3/uL Chloride 94 L (96-109) mmol/L Carbon Dioxide 33.2 H (20.0-27.5) mmol/L BUN/Creatinine Ratio 28.83 H (12.00-20.00) Ratio Glucose 201 H (70-110) mg/dL Assessment and Plan Assessment: Altered mental status likely due to CO2 narcosis. Improving now Acute COPD exacerbation Aggressive COPD on home oxygen Polysubstance abuse including marijuana use Pancreatitis History of seizure disorder History of CVA Fibromyalgia Migraine headaches History of renal stones IBS GI and DVT prophylaxis. Plan: IV Solu-Medrol changed to prednisone 40 mg daily. Continue with duo nebs and Symbicort. Titrate down to room air. Continue with home medications including Keppra. Pulmonary is on board and follow closely. Time with Patient: Greater than 30
[2022-07-25] MEDS: diphenhydrAMINE 25 MG CAP PO PRN (02:52)
[2022-07-25] MEDS: HYDROcodone/APAP 7.5-325MG 1 EACH TAB PO PRN ×2 (04:26→11:43)
[2022-07-25 07:47] VITALS: RESP 18; TEMP 98.4
[2022-07-25] MEDS: SYMBICORT 160-4.5 MCG INHALER INHALATION SCH (08:09)
[2022-07-25] MEDS: IPRATROPIUM-ALBUTEROL 3 ML NEB INHALATION SCH ×2 (08:09→12:14)
[2022-07-25] MEDS: ONDANSETRON 4 MG/2 ML VIAL IVP PRN (08:18)
[2022-07-25] MEDS ORDERED: ONDANSETRON 4 MG TAB PO PRN (08:23)
[2022-07-25] MEDS: carvediloL 12.5 MG TAB PO SCH (09:14)
[2022-07-25] MEDS: HEPARIN SODIUM,PORCINE/PF 5,000 UNIT/0.5 ML SYRINGE SQ SCH (09:14)
[2022-07-25] MEDS: NICOTINE 21MG/24HR PATCH TRANSDERM SCH (09:15)
[2022-07-25] MEDS: SPIRONOLACTONE 25 MG TAB PO SCH (09:15)
[2022-07-25] MEDS: amLODIPine 10 MG TAB PO SCH (09:15)
[2022-07-25] MEDS: predniSONE 20 MG TAB PO SCH (09:15)
[2022-07-25] MEDS: levETIRAcetam 500 MG TAB PO SCH (09:15)
[2022-07-25] MEDS: CITALOPRAM HYDROBROMIDE 20 MG TAB PO SCH (09:15)
[2022-07-25] MEDS: QUEtiapine 100 MG TAB PO SCH (09:15)
[2022-07-25] MEDS: DICYCLOMINE 10 MG CAP PO PRN (09:22)
[2022-07-25 10:15] LABS: Anion Gap 10.5 mmol/L (10.00-18.00); BUN/Creat Ratio 34.14 Ratio (12.00-20.00); Blood Urea Nitrogen 22.5 mg/dL (9.0-27.0); Calcium 9.1 mg/dL (8.7-10.3); Carbon Dioxide 32.7 mmol/L (20.0-27.5); Non-African American GFR(CKD) 105.3 (60.0-200.0); Potassium 3.6 mmol/L (3.5-5.5)
[2022-07-25 10:38] LABS: Basophils # (A) 0 X 10*3/uL (0.00-0.10); Basophils % (A) 0 %; Eosinophils # (A) 0 X 10*3/uL (0.04-0.35); Eosinophils % (A) 0 %; HCT 40.7 % (37.2-46.3); HGB 12.7 g/dL (12.0-15.0); Immature Grans, Automated 0.6 %; Lymphocytes # (A) 2.08 X 10*3/uL (0.90-5.00); Lymphocytes % (A) 20.1 %; MCH 26.7 pg (27.0-32.0); MCHC 31.2 g/dL (32.0-37.0); MCV 85.7 fL (80.0-97.0); Mean Platelet Volume 10.4 fL (9.5-12.2); Monocytes # (A) 0.76 X 10*3/uL (0.20-1.00); Monocytes % (A) 7.3 %; NRBC Per 100 WBC 0 /100 WBCS (0.0-0.0); Neutrophils # (A) 7.45 X 10*3/uL (1.80-7.70); Platelet Count 295 X 10*3/uL (140-440); RBC 4.75 X 10*6/uL (4.10-5.20); RDW 13.2 % (11.5-14.5); WBC 10.35 X 10*3/uL (4.50-10.00)
--- NOTE | 2022-07-25 11:32 | P.PN ---
Subjective Progress Note Date: 07/25/22 47-year-old female patient with known history of COPD, polysubstance abuse including opiates, and marijuana, in addition to history of seizure disorder, hypertension and previous history of a left lower lobe pneumonia for which the patient was hospitalized back in May 2022. The patient came into the emergency department yesterday for altered mental status. The patient came in to the emergency and she was also a 2 and she was unable to provide any history. She could not answer any questions and she was resting in bed without any significant respiratory distress. No family members were available and no further information was obtained from the patient. This is according to the emergency notes. She was hemodynamically stable. Further workup was done and the patient was found to have a WBC count of 10.9 with a hemoglobin of 15.7 and a platelet count of 298. Serum bicarb was 36 with a sodium level of 139 and a potassium level of 4 and the glucose was 123. Had alcohol level was negative. Her blood work showed a WBC count 10.9 with a hemoglobin 15.7. A venous blood gas was done and the patient had a pH of 7.24 with a pCO2 of 79. Urine drug screen was abnormal. It was positive for oxycodone, positive for tricyclics, positive for benzodiazepines and positive with positive for marijuana. The chest x-ray showed no acute pulmonary abnormalities. The patient had adequate expansion of both lungs. The previously described left lung pneumonia had essentially recovered. At the same time, CAT scan of the brain was done that showed evidence of right maxillary sinusitis without any other abnormalities. The patient was placed on BiPAP at a pressures of 10/5 cm of water and currently she is on oxygen at 3 L/m nasal cannula. She recovered her mentation and she is much more awake and alert at this point in time. She is a chronic smoker and she was smoking 2-3 PPD. She has 02 at home at 2 liters and a nebulizer 07/23/2022, mental status is back to the baseline and the patient has no signs of any CO2 narcosis altered mentation. Noted the patient was has less for an ac [place] hypercapnic respiratory failure and COPD exacerbation. She improved. She was placed on BiPAP and currently she is off the BiPAP and she is on oxygen at 3 L nasal cannula. She is on bronchodilators and steroids. The viral screen came back negative including influenza, Covid 19 and RSV. She remains on bronchodilators. She remains on IV Solu-Medrol. She is lethargic and more awake. She is communicating. No focal neurological deficit at this point in time. 07/24/2022, there is marked improvement in the patient's condition and the patient's breathing is improved considerably. She is only on 2 L of O2 nasal cannula. BiPAP is at the bedside gets were not using it on a regular basis. She remains on bronchodilators and steroids. She is having breakfast and lunch. No focal neurological deficits.Labs from today showed a loose count of 9.1 with a hemoglobin of 12.4 and a platelet count of 290. Sodium is at 139, BUN is at 70 with a creatinine of 0.6. Covid 19 was negative. Influenza screen was negative.Liters On 07/25/2022, the patient is feeling well. She is on oxygen at 3 L. She is, comfortable. No major respiratory distress. No signs of any CO2 narcosis. The white cycles of 10 with a hemoglobin 12.7 and a platelet count of 295. Sodiums of 140, BUN is 22 with a creatinine of 0.7. Covid 19 testing was negative. Influenza a and B was negative. RSV was negative. The patient remains on DuoNeb about treatments [id number]. The patient is also on prednisone burst taper. No seizure activity and she is maintained on Keppra. She is also on Aldactone. Objective - Vital Signs Vital signs: Vital Signs Temp 98.4 F 07/25/22 07:23 Pulse 100 07/25/22 08:23 Resp 18 07/25/22 07:23 BP 139/83 07/25/22 07:23 Pulse Ox 98 07/25/22 08:12 FiO2 30 07/24/22 00:41 Intake & Output 07/24/22 07/25/22 07/25/22 18:59 06:59 18:59 Intake Total 480 Balance 480 Intake: Oral 480 Other: Voiding Method Toilet Toilet Toilet # Voids 1 4 - Exam GENERAL: The patient is alert and oriented x3, not in any acute distress. Well developed, well nourished. The patient is currently on 3 L O2 nasal cannula. She is awake and alert and following answers and commands without any major difficulties. HEENT: Pupils are round and equally reacting to light. EOMI. No scleral icterus. No conjunctival pallor. Normocephalic, atraumatic. No pharyngeal erythema. No thyromegaly. CARDIOVASCULAR: S1 and S2 present. No murmurs, rubs, or gallops. -PULMONARY: Chest showed shows marked improvement in the bronchospasm wheezing and that is marked improvement in air entry bilaterally ABDOMEN: Soft, nontender, nondistended, normoactive bowel sounds. No palpable organomegaly. MUSCULOSKELETAL: No joint swelling or deformity. EXTREMITIES: No cyanosis, clubbing, or pedal edema. NEUROLOGICAL: Gross neurological examination did not reveal any focal deficits. SKIN: No rashes. no petechiae. - Labs CBC & Chem 7: 07/25/22 06:04 07/25/22 06:04 Labs: Abnormal Lab Results - Last 24 Hours (Table) 07/24/22 07/24/22 07/25/22 Range/Units 06:55 06:55 06:04 WBC 10.35 H (4.50-10.00) X 10*3/uL MCH 26.7 L (27.0-32.0) pg MCHC 31.3 L 31.2 L (32.0-37.0) g/dL Immature Gran # 0.06 H (0.00-0.04) X 10*3/uL Neutrophils # 7.93 H (1.80-7.70) X 10*3/uL Lymphocytes # 0.88 L (0.90-5.00) X 10*3/uL Eosinophils # 0 L 0 L (0.04-0.35) X 10*3/uL Chloride 94 L (96-109) mmol/L Carbon Dioxide 33.2 H (20.0-27.5) mmol/L BUN/Creatinine Ratio 28.83 H (12.00-20.00) Ratio Glucose 201 H (70-110) mg/dL 07/25/22 Range/Units 06:04 WBC (4.50-10.00) X 10*3/uL MCH (27.0-32.0) pg MCHC (32.0-37.0) g/dL Immature Gran # (0.00-0.04) X 10*3/uL Neutrophils # (1.80-7.70) X 10*3/uL Lymphocytes # (0.90-5.00) X 10*3/uL Eosinophils # (0.04-0.35) X 10*3/uL Chloride (96-109) mmol/L Carbon Dioxide 32.7 H (20.0-27.5) mmol/L BUN/Creatinine Ratio 34.14 H (12.00-20.00) Ratio Glucose 193 H (70-110) mg/dL Assessment and Plan Plan: Altered mentation probably due to a component of CO2 narcosis and a sensation with COPD exacerbation, recovered Chronic advanced COPD, oxygen dependent at 2 L on outpatient basis with secondary exacerbation History of chronic smoking and the patient was smoking up to 3-4 packs of cigarettes a day History of recent left lower lobe pneumonia/lingular pneumonia, recovered Polysubstance abuse including marijuana Rheumatoid arthritis History of seizure disorders History of CVA Fibromyalgia History of migraines Chronic kidney stones IBS Plan Clinically improving and the patient is currently off the BiPAP, and on today's evaluation is marked improvement in her bronchospasm and wheezing. The patient's is feeling much improved. Start the patient on DuoNeb neb 4 times a day every 6 hours Continue the prednisone burst taper Did not use BiPAP overnight Chest x-ray was reviewed We'll check influenza a and influenza B and Covid 19 and RSV, the vital screening was completed and was negative We'll monitor the mental status. CAT scan of the brain is negative Resume all medications Nicotine patch Heparin subcu portably prophylaxis We'll continue to follow. Patient came in discharged home today and I have cleared her for discharge. I'll sign off the case.
[2022-07-25 14:29] VITALS: BP 134/85; PULSE 80
== END 2022-07-25 15:14 | disposition home health service (06) | DRG 189 ==
LOC: EC 14:39 → 3SCARD 20:29 → 4SSUR 07-23 18:32
PROVIDERS: ADMIT Hospitalist; ATTEND Hospitalist
PROC: 5A09357 Assistance with Respiratory Ventilation, Less than 24 Consecutive Hours, Continuous Positive Airway Pressure (ICD-10-PCS; principal; 2022-07-21)
DX: J96.02 Acute respiratory failure with hypercapnia (principal); G93.41 Metabolic encephalopathy; J44.1 Chronic obstructive pulmonary disease with (acute) exacerbation; I50.32 Chronic diastolic (congestive) heart failure; J96.01 Acute respiratory failure with hypoxia; R41.82 Altered mental status, unspecified; F19.10 Other psychoactive substance abuse, uncomplicated; J32.0 Chronic maxillary sinusitis; F17.210 Nicotine dependence, cigarettes, uncomplicated; Z20.822 Contact with and (suspected) exposure to COVID-19; M79.7 Fibromyalgia; M06.9 Rheumatoid arthritis, unspecified; F12.10 Cannabis abuse, uncomplicated; G40.909 Epilepsy, unspecified, not intractable, without status epilepticus; G43.909 Migraine, unspecified, not intractable, without status migrainosus; K58.9 Irritable bowel syndrome, unspecified; G89.29 Other chronic pain; M54.9 Dorsalgia, unspecified; I11.0 Hypertensive heart disease with heart failure; F31.9 Bipolar disorder, unspecified; N20.0 Calculus of kidney; T59.7X1A Toxic effect of carbon dioxide, accidental (unintentional), initial encounter; F60.3 Borderline personality disorder; F90.9 Attention-deficit hyperactivity disorder, unspecified type; K86.89 Other specified diseases of pancreas; F41.9 Anxiety disorder, unspecified; Z87.01 Personal history of pneumonia (recurrent); Z99.81 Dependence on supplemental oxygen; Z86.73 Personal history of transient ischemic attack (TIA), and cerebral infarction without residual deficits; Z79.899 Other long term (current) drug therapy; Z86.14 Personal history of Methicillin resistant Staphylococcus aureus infection; Z88.0 Allergy status to penicillin; Z88.1 Allergy status to other antibiotic agents; Z91.041 Radiographic dye allergy status; Z88.6 Allergy status to analgesic agent; Z88.2 Allergy status to sulfonamides; Z88.5 Allergy status to narcotic agent
CPT/HCPCS: 36415; 70450; 71046; 80048; 80053; 80306; 80320; 81001; 82140; 82803; 83605; 83690; 83880; 84145; 84484; 85025; 87502; 87634; 87635; 87636; 93005; 94640; 94660; 94760; 96372; 96374; 96375; 96376; 99291

== ENCOUNTER 2022-08-09 19:19 | Emergency (ER) | payer MEDICARE, OTHER ==
[2022-08-09 19:49] VITALS: TEMP 98.5
--- NOTE | 2022-08-09 19:49 | ED ---
General Adult HPI - General Chief complaint: Urogenital Stated complaint: Side & Back Pain Time Seen by Provider: 08/09/22 19:48 Source: patient, RN notes reviewed Mode of arrival: ambulatory Limitations: no limitations - History of Present Illness Initial comments: 47-year-old female presents emergency Department chief complaint of lower abdominal pain, back pain. Patient states she's noticed urinary frequency and dysuria. Patient states she feels like she has UTI. Denies any significant nausea vomiting diarrhea constipation. Patient states that she just started symptoms last few days patient offers no complaints. - Related Data Home Medications Medication Instructions Recorded Confirmed Spironolactone [Aldactone] 25 mg PO DAILY 02/05/17 07/21/22 Citalopram Hydrobromide [CeleXA] 40 mg PO DAILY 06/12/19 07/21/22 Dicyclomine [Bentyl] 10 mg PO QID PRN 05/28/20 07/21/22 carvediloL [Coreg] 25 mg PO BID 03/26/21 07/21/22 oxyCODONE-APAP 10-325MG [Percocet 1 tab PO TID PRN 03/16/22 07/21/22 10-325 mg] Naloxone HCl [Narcan] 4 mg NASAL ONCE PRN 05/29/22 07/21/22 QUEtiapine [SEROquel] 100 mg PO DAILY 07/21/22 07/21/22 QUEtiapine [SEROquel] 150 mg PO HS 07/21/22 07/21/22 levETIRAcetam [Keppra] 500 mg PO BID 07/21/22 07/21/22 Previous Rx's Medication Instructions Recorded amLODIPine [Norvasc] 10 mg PO DAILY #30 tab 06/04/22 Ipratropium-Albuterol Nebulize 3 ml INHALATION Q4H PRN 30 Days 07/25/22 [Duoneb 0.5 mg-3 mg/3 ml Soln] #360 ml predniSONE See Taper PO DIRECTED #30 tab 07/25/22 Nitrofurantoin Monohyd/M-Cryst 100 mg PO Q12HR #14 cap 08/09/22 [Macrobid] Phenazopyridine [Pyridium] 200 mg PO TID #6 tablet 08/09/22 Allergies Allergy/AdvReac Type Severity Reaction Status Date / Time adhesive Allergy Rash/Hives Verified 08/09/22 19:45 amoxicillin Allergy Anaphylaxis Verified 08/09/22 19:45 azithromycin [From Zithromax] Allergy Anaphylaxis Verified 08/09/22 19:45 cephalexin monohydrate Allergy Anaphylaxis Verified 08/09/22 19:45 [From Keflex] ciprofloxacin Allergy Anaphylaxis Verified 08/09/22 19:45 clindamycin Allergy Anaphylaxis Verified 08/09/22 19:45 Iodinated Contrast Media Allergy Anaphylaxis Verified 08/09/22 19:45 [Iodinated Contrast- Oral and IV Dye] levofloxacin [From Levaquin] Allergy Rash/Hives Verified 08/09/22 19:45 naproxen Allergy Anaphylaxis Verified 08/09/22 19:45 NSAIDS (Non-Steroidal Allergy Rash/Hives Verified 08/09/22 19:45 Anti-Inflamma shellfish derived Allergy Anaphylaxis Verified 08/09/22 19:45 Sulfa (Sulfonamide Allergy Anaphylaxis Verified 08/09/22 19:45 Antibiotics) sulfamethoxazole Allergy Anaphylaxis Verified 08/09/22 19:45 [From Bactrim] tramadol Allergy Unknown Verified 08/09/22 19:45 trimethoprim [From Bactrim] Allergy Anaphylaxis Verified 08/09/22 19:45 Review of Systems ROS Statement: Those systems with pertinent positive or pertinent negative responses have been documented in the HPI. ROS Other: All systems not noted in ROS Statement are negative. 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 IBS, cellulitis of the chin, pt unsure of when last seizure was, CVA about 1 year ago History of Any Multi-Drug Resistant Organisms: MRSA Date of last positivie culture/infection: 07/2016 MDRO Source:: Chin Past Surgical History: Appendectomy, Section, Cholecystectomy, Hysterectomy, Tubal Ligation Additional Past Surgical History / Comment(s): oral surgery . Pancreas biopsy May 2015. Past Anesthesia/Blood Transfusion Reactions: No Reported Reaction Past Psychological History: ADD/ADHD, Anxiety, Bipolar, Depression Smoking Status: Current every day smoker Past Alcohol Use History: None Reported Past Drug Use History: Marijuana - Past Family History Father History Unknown: Yes Family Medical History: No Reported History Additional Family Medical History / Comment(s): Pt adopted Mother History Unknown: Yes Additional Family Medical History / Comment(s): Pt adopted General Exam Limitations: no limitations Course Vital Signs 08/09/22 19:45 Temperature 98.5 F Pulse Rate 69 Respiratory 18 Rate Blood Pressure 175/97 O2 Sat by Pulse 95 Oximetry Medical Decision Making - Medical Decision Making Was pt. sent in by a medical professional or institution (, LOCO, RESTAURANT CULINARY MANAGER, urgent care, hospital, or [facility]...) When possible be specific @ -No Did you speak to anyone other than the patient for history (EMS, parent, family, police, friend...)? What history was obtained from this source @ -No Did you review nursing and triage notes (agree or disagree)? Why? @ -I reviewed and agree with nursing and triage notes Were old charts reviewed (outside hosp., previous admission, EMS record, old EKG, old radiological studies, urgent care reports/EKG's, [facility] records)? Report findings @ -No old charts were reviewed Differential Diagnosis (chest pain, altered mental status, abdominal pain women, abdominal pain men, vaginal bleeding, weakness, fever, dyspnea, syncope, headache, dizziness, GI bleed, back pain, seizure, CVA, palpatations, mental health)? @ -[UTI, pyelonephritis, kidney stone, this is is not all inconclusive EKG interpreted by me (3pts min.). @ -None X-rays interpreted by me (1pt min.). @ -None done CT interpreted by me (1pt min.). @ -None done U/S interpreted by me (1pt. min.). @ -None done What testing was considered but not performed or refused? (CT, X-rays, U/S, labs)? Why? @ -None What meds were considered but not given or refused? Why? @ -None Did you discuss the management of the patient with other professionals (professionals i.e. LOCO Vincent, RESTAURANT CULINARY MANAGER, lab, RT, psych nurse, social media senior associate, judicial assistant, teacher, environmental compliance officer, leather case finisher)? Give summary @ -No Was smoking cessation discussed for >3mins.? @ -No Was critical care preformed (if so, how long)? @ -No Were there social determinants of health that impacted care today? How? (Homelessness, low income, unemployed, alcoholism, drug addiction, transportation, low edu. Level, literacy, decrease access to med. care, correction, rehab)? @ -No Was there de-escalation of care discussed even if they declined (Discuss DNR or withdrawal of care, Hospice)? DNR status @ -No What co-morbidities impacted this encounter? (DM, HTN, Smoking, COPD, CAD, Cancer, CVA, ARF, Chemo, Hep., AIDS, mental health diagnosis, sleep apnea, morbid obesity)? @ -None Was patient admitted / discharged? Hospital course, mention meds given and route, prescriptions, significant lab abnormalities, going to OR and other pertinent info. @ -Discharged - patient has evidence urinary tract infection with associated symptoms. Patient discharged on oral antibiotics but is are stable return parameters were discussed. Undiagnosed new problem with uncertain prognosis? @ -No Drug Therapy requiring intensive monitoring for toxicity (Heparin, Nitro, Insulin, Cardizem)? @ -No Were any procedures done? @ -No Diagnosis/symptom? @ -UTI Acute, or Chronic, or Acute on Chronic? @ -Acute Uncomplicated (without systemic symptoms) or Complicated (systemic symptoms)? @ -Uncomplicated Side effects of treatment? @ -No Exacerbation, Progression, or Severe Exacerbation? @ -No Poses a threat to life or bodily function? How? (Chest pain, [place], [place], pneumonia, PE, COPD, DKA, ARF, appy, cholecystitis, CVA, Diverticulitis, Homicidal, Suicidal, threat to staff... and all critical care pts) @ -No - Lab Data Lab Results 08/09/22 Range/Units 20:11 Urine Color Yellow Urine Appearance Cloudy H (Clear) Urine pH 8.0 (5.0-8.0) Ur Specific [place] 1.025 (1.001-1.035) Urine Protein 1+ H (Negative) Urine Glucose (UA) Negative (Negative) Urine Ketones 1+ H (Negative) Urine Blood Small H (Negative) Urine Nitrite Negative (Negative) Urine Bilirubin Negative (Negative) Urine Urobilinogen 6.0 (<2.0) mg/dL Ur Leukocyte Esterase Small H (Negative) Urine RBC 19 H (0-5) /hpf Urine WBC 11 H (0-5) /hpf Ur Squamous Epith Cells 18 H (0-4) /hpf Urine Bacteria Rare H (None) /hpf Urine Mucus Many H (None) /hpf Disposition Clinical Impression: UTI (urinary tract infection) Disposition: HOME SELF-CARE Condition: Stable Instructions (If sedation given, give patient instructions): Urinary Tract Infection in Women (ED) Additional Instructions: Please return to the Emergency Department if symptoms worsen or any other concerns. Prescriptions: Nitrofurantoin Monohyd/M-Cryst [Macrobid] 100 mg PO Q12HR #14 cap Phenazopyridine [Pyridium] 200 mg PO TID #6 tablet Is patient prescribed a controlled substance at d/c from ED?: No Referrals: Kaleb Huston DO [Primary Care Provider] - 1-2 days Time of Disposition: 21:26
[2022-08-09 21:02] LABS: Appearance,Urine Cloudy (Clear); Bacteria,Urine Rare /hpf; Bilirubin,Urine Negative (Negative); Blood,Urine Small (Negative); Color,Urine Yellow; Glucose,Urine (UA) Negative (Negative); Ketones,Urine 1+ (Negative); Leukocyte Esterase,Urine Small (Negative); Mucus,Urine Many /hpf; Nitrite,Urine Negative (Negative); Protein,Urine 1+ (Negative); RBC,Urine 19 /hpf (0-5); Specific Gravity,Urine 1.025 (1.001-1.035); Squamous Epithelial Cell,Urine 18 /hpf (0-4); WBC,Urine 11 /hpf (0-5)
[2022-08-09] MEDS ORDERED: NITROFURANTOIN MONOHYD/M-CRYST 100 MG CAP PO STA (21:23)
[2022-08-09] MEDS ORDERED: PHENAZOPYRIDINE 200 MG TAB PO STA (21:23)
[2022-08-09] MEDS ORDERED: ONDANSETRON ODT 4 MG TAB PO STA (21:44)
[2022-08-09 22:02] VITALS: BP 156/90; PULSE 74; RESP 16
== END 2022-08-09 22:06 | disposition home or self-care (01) ==
LOC: EC 19:19
DX: N39.0 Urinary tract infection, site not specified (principal); J44.9 Chronic obstructive pulmonary disease, unspecified; I10 Essential (primary) hypertension; F41.9 Anxiety disorder, unspecified; F31.9 Bipolar disorder, unspecified; F12.90 Cannabis use, unspecified, uncomplicated; F17.200 Nicotine dependence, unspecified, uncomplicated; Z88.0 Allergy status to penicillin; Z88.8 Allergy status to other drugs, medicaments and biological substances; Z91.013 Allergy to seafood; Z88.2 Allergy status to sulfonamides; Z88.5 Allergy status to narcotic agent
CPT/HCPCS: 81001; 87086; 99283

== ENCOUNTER 2022-09-21 18:24 | Inpatient (IN) | payer MEDICARE ==
[2022-09-21] MEDS ORDERED: DEXAMETHASONE SOD PHOSPHATE 10 MG/ML 1 ML VIAL IVP STA (18:31)
[2022-09-21] MEDS ORDERED: SODIUM CHLORIDE 0.9% 1,000 ML IV ONE (18:31)
[2022-09-21] MEDS ORDERED: ALBUTEROL NEBULIZED 2.5 MG/3 ML INHALATION STA (18:31)
[2022-09-21] MEDS ORDERED: IPRATROPIUM 0.5 MG/2.5 ML NEBU INHALATION STA (18:31)
--- NOTE | 2022-09-21 19:14 | ED ---
General Adult HPI - General Stated complaint: seizure Source: patient, EMS Mode of arrival: EMS Limitations: no limitations - History of Present Illness Initial comments: This is a 47-year-old female with an extensive past medical history including asthma, COPD as well as fibromyalgia, rheumatoid arthritis and seizure presents emergency department via EMS after reported seizures. The patient stated that she had 4 seizures with her last noted one hour prior to arrival. When EMS did arrive, the patient was ANO 4 and denied of any reported confusion or postictal state. The patient stated that she has had a productive cough over last 4 days and stated that she has been feeling "unwell" and she thinks this to her into a seizure. The patient had taken all of her medications as previously prescribed. The patient did have nasal congestion and a cough noted on exam but denied any other acute pain. The patient had not bit her tongue and had not urinated on herself. The patient was resting in bed comfortably. The patient had not missed any medications. - Related Data Home Medications Medication Instructions Recorded Confirmed Spironolactone [Aldactone] 25 mg PO DAILY 02/05/17 09/21/22 Citalopram Hydrobromide [CeleXA] 40 mg PO DAILY 06/12/19 09/21/22 Dicyclomine [Bentyl] 10 mg PO QID PRN 05/28/20 09/21/22 carvediloL [Coreg] 25 mg PO BID 03/26/21 09/21/22 oxyCODONE-APAP 10-325MG [Percocet 1 tab PO TID PRN 03/16/22 09/21/22 10-325 mg] Naloxone HCl [Narcan] 4 mg NASAL ONCE PRN 05/29/22 09/21/22 QUEtiapine [SEROquel] 100 mg PO DAILY 07/21/22 09/21/22 QUEtiapine [SEROquel] 150 mg PO HS 07/21/22 09/21/22 levETIRAcetam [Keppra] 500 mg PO BID 07/21/22 09/21/22 Allergies Allergy/AdvReac Type Severity Reaction Status Date / Time adhesive Allergy Rash/Hives Verified 09/21/22 18:53 amoxicillin Allergy Anaphylaxis Verified 09/21/22 18:53 azithromycin [From Zithromax] Allergy Anaphylaxis Verified 09/21/22 18:53 cephalexin monohydrate Allergy Anaphylaxis Verified 09/21/22 18:53 [From Keflex] ciprofloxacin Allergy Anaphylaxis Verified 09/21/22 18:53 clindamycin Allergy Anaphylaxis Verified 09/21/22 18:53 Iodinated Contrast Media Allergy Anaphylaxis Verified 09/21/22 18:53 [Iodinated Contrast- Oral and IV Dye] levofloxacin [From Levaquin] Allergy Rash/Hives Verified 09/21/22 18:53 naproxen Allergy Anaphylaxis Verified 09/21/22 18:53 NSAIDS (Non-Steroidal Allergy Rash/Hives Verified 09/21/22 18:53 Anti-Inflamma shellfish derived Allergy Anaphylaxis Verified 09/21/22 18:53 Sulfa (Sulfonamide Allergy Anaphylaxis Verified 09/21/22 18:53 Antibiotics) sulfamethoxazole Allergy Anaphylaxis Verified 09/21/22 18:53 [From Bactrim] tramadol Allergy Unknown Verified 09/21/22 18:53 trimethoprim [From Bactrim] Allergy Anaphylaxis Verified 09/21/22 18:53 Review of Systems ROS Statement: Those systems with pertinent positive or pertinent negative responses have been documented in the HPI. ROS Other: All systems not noted in ROS Statement are negative. 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 IBS, cellulitis of the chin, pt unsure of when last seizure was, CVA about 1 year ago History of Any Multi-Drug Resistant Organisms: MRSA Date of last positivie culture/infection: 07/2016 MDRO Source:: Chin Past Surgical History: Appendectomy, Section, Cholecystectomy, Hysterectomy, Tubal Ligation Additional Past Surgical History / Comment(s): oral surgery . Pancreas biopsy May 2015. Past Anesthesia/Blood Transfusion Reactions: No Reported Reaction Past Psychological History: ADD/ADHD, Anxiety, Bipolar, Depression Smoking Status: Current every day smoker Past Alcohol Use History: None Reported Past Drug Use History: Marijuana - Past Family History Father History Unknown: Yes Family Medical History: No Reported History Additional Family Medical History / Comment(s): Pt adopted Mother History Unknown: Yes Additional Family Medical History / Comment(s): Pt adopted General Exam Limitations: no limitations General appearance: alert, in no apparent distress Head exam: Present: atraumatic, normocephalic, normal inspection Eye exam: Present: normal appearance, PERRL Pupils: Present: normal accommodation ENT exam: Present: normal exam, normal oropharynx, mucous membranes moist Neck exam: Present: normal inspection, full ROM Respiratory exam: Present: wheezes (Bilateral expiratory wheezes heard with rhonchi), rhonchi Cardiovascular Exam: Present: regular rate, normal rhythm, normal heart sounds GI/Abdominal exam: Present: soft, normal bowel sounds Extremities exam: Present: normal inspection, full ROM Back exam: Present: normal inspection, full ROM Neurological exam: Present: alert, oriented X3, CN II-XII intact Psychiatric exam: Present: normal affect, normal mood Skin exam: Present: warm, dry Course Vital Signs 09/21/22 09/21/22 09/21/22 18:26 18:30 18:57 Temperature 98.3 F Pulse Rate 80 75 Respiratory 18 20 Rate Blood Pressure 144/75 O2 Sat by Pulse 92 L Oximetry 09/21/22 09/21/22 09/21/22 19:04 19:07 19:08 Temperature Pulse Rate 74 75 75 Respiratory 18 Rate Blood Pressure 137/78 O2 Sat by Pulse 99 Oximetry 09/21/22 09/21/22 19:18 19:42 Temperature Pulse Rate 76 71 Respiratory 17 Rate Blood Pressure 105/61 O2 Sat by Pulse 96 Oximetry EKG Findings - EKG Comments: EKG Findings:: An EKG was obtained and was interpreted by myself showing a rate of 73, NV interval 148, QRS duration of 101 and QTC of 452. This EKG showed a normal sinus rhythm with no ST segment elevation or depression noted. Medical Decision Making - Medical Decision Making Was pt. sent in by a medical professional or institution (, PA, SUPPLY AIDE, urgent care, hospital, or senior care...) When possible be specific @ -No Did you speak to anyone other than the patient for history (EMS, parent, family, police, friend...)? What history was obtained from this source @ -No Did you review nursing and triage notes (agree or disagree)? Why? @ -I reviewed and agree with nursing and triage notes Were old charts reviewed (outside hosp., previous admission, EMS record, old EKG, old radiological studies, urgent care reports/EKG's, senior care records)? Report findings @ -No old charts were reviewed Differential Diagnosis (chest pain, altered mental status, abdominal pain women, abdominal pain men, vaginal bleeding, weakness, fever, dyspnea, syncope, headache, dizziness, GI bleed, back pain, seizure, CVA, palpatations, mental health)? @ -Seizure, pneumonia, URI EKG interpreted by me (3pts min.). @ -As above X-rays interpreted by me (1pt min.). @ -Chest x-ray was obtained and was interpreted by myself showing left lower lobe airspace opacities concerning for pneumonia. CT interpreted by me (1pt min.). @ -None done U/S interpreted by me (1pt. min.). @ -None done What testing was considered but not performed or refused? (CT, X-rays, U/S, labs)? Why? @ -None What meds were considered but not given or refused? Why? @ -None Did you discuss the management of the patient with other professionals (professionals i.e. , PA, SUPPLY AIDE, lab, RT, psych nurse, social insurance adviser, manager ccu, teacher, guest relation officer, bilingual patient support caseworker)? Give summary @ -No Was smoking cessation discussed for >3mins.? @ -Yes Was critical care preformed (if so, how long)? @ -No Were there social determinants of health that impacted care today? How? (Homelessness, low income, unemployed, alcoholism, drug addiction, transportation, low edu. Level, literacy, decrease access to med. care, detention, rehab)? @ -No Was there de-escalation of care discussed even if they declined (Discuss DNR or withdrawal of care, Hospice)? DNR status @ -No What co-morbidities impacted this encounter? (DM, HTN, Smoking, COPD, CAD, Cancer, CVA, ARF, Chemo, Hep., AIDS, mental health diagnosis, sleep apnea, morbid obesity)? @ -Significant past medical history including fibromyalgia, rheumatoid arthritis, COPD, asthma and seizure disorder Was patient admitted / discharged? Hospital course, mention meds given and route, prescriptions, significant lab abnormalities, going to OR and other pertinent info. @ -The patient was seen and evaluated in emergency department. Physical exam, the patient was resting in bed on her home oxygen at 92%. The remainder of the vital signs are within normal limits. Laboratory workup was obtained as was a chest x-ray and EKG. Laboratory workup showed a mildly elevated white blood cell count and increased CO2 consistent with her baseline. Chest x-ray was obtained and showed signs for pneumonia. The patient was given doxycycline and was planning to be discharged however stated that she felt uncomfortable with this. The setting of the patient's COPD and asthma, the patient did request to be placed observation for 1 night just to make sure that she does not get worse. The patient stated that whenever she has pneumonia she "goes back and forth." The patient was given doxycycline as well as her home dose of [place]. The patient does have a primary care that admits here therefore the patient was admitted to [facility]. Dr. Mclain did accept the patient and the patient was placed observation in stable condition. Undiagnosed new problem with uncertain prognosis? @ -No Drug Therapy requiring intensive monitoring for toxicity (Heparin, Nitro, Insulin, Cardizem)? @ -No Were any procedures done? @ -No Diagnosis/symptom? @ -Community acquired pneumonia, history of asthmas and COPD Acute, or Chronic, or Acute on Chronic? @ -Acute Uncomplicated (without systemic symptoms) or Complicated (systemic symptoms)? @ -Complicated Side effects of treatment? @ -No Exacerbation, Progression, or Severe Exacerbation? @ -No Poses a threat to life or bodily function? How? (Chest pain, [place], [place], pneumonia, PE, COPD, DKA, ARF, appy, cholecystitis, CVA, Diverticulitis, Homicidal, Suicidal, threat to staff... and all critical care pts) @ -No - Lab Data Result diagrams: 09/21/22 18:37 09/21/22 18:37 Lab Results 09/21/22 09/21/22 09/21/22 Range/Units 18:37 18:37 18:37 WBC 13.8 H (3.8-10.6) k/uL RBC 4.37 (3.80-5.40) m/uL Hgb 12.3 (11.4-16.0) gm/dL Hct 37.1 (34.0-46.0) % MCV 84.9 (80.0-100.0) fL MCH 28.1 (25.0-35.0) pg MCHC 33.1 (31.0-37.0) g/dL RDW 13.7 (11.5-15.5) % Plt Count 253 (150-450) k/uL MPV 7.1 Neutrophils % 76 % Lymphocytes % 17 % Monocytes % 4 % Eosinophils % 2 % Basophils % 0 % Neutrophils # 10.5 H (1.3-7.7) k/uL Lymphocytes # 2.3 (1.0-4.8) k/uL Monocytes # 0.5 (0-1.0) k/uL Eosinophils # 0.2 (0-0.7) k/uL Basophils # 0.1 (0-0.2) k/uL VBG pH (7.31-7.41) VBG pCO2 (37-51) mmHg VBG HCO3 (24-28) mmol/L Sodium 138 (137-145) mmol/L Potassium 3.9 (3.5-5.1) mmol/L Chloride 97 L (98-107) mmol/L Carbon Dioxide 38 H (22-30) mmol/L Anion Gap 3 mmol/L BUN 9 (7-17) mg/dL Creatinine 0.41 L (0.52-1.04) mg/dL Est GFR (CKD-EPI)AfAm >90 (>60 ml/min/1.73 sqM) Est GFR (CKD-EPI)NonAf >90 (>60 ml/min/1.73 sqM) Glucose 106 H (74-99) mg/dL Plasma Lactic Acid Srinivas (0.7-2.0) mmol/L Calcium 8.2 L (8.4-10.2) mg/dL Magnesium 1.6 (1.6-2.3) mg/dL Total Bilirubin 0.6 (0.2-1.3) mg/dL AST 28 (14-36) U/L ALT 21 (4-34) U/L Alkaline Phosphatase 78 (38-126) U/L Total Protein 6.2 L (6.3-8.2) g/dL Albumin 3.4 L (3.5-5.0) g/dL Lipase 14 L (23-300) U/L Urine Color Yellow Urine Appearance Cloudy H (Clear) Urine pH 8.0 (5.0-8.0) Ur Specific [place] 1.025 (1.001-1.035) Urine Protein 1+ H (Negative) Urine Glucose (UA) Negative (Negative) Urine Ketones Negative (Negative) Urine Blood Small H (Negative) Urine Nitrite Negative (Negative) Urine Bilirubin Negative (Negative) Urine Urobilinogen 4.0 (<2.0) mg/dL Ur Leukocyte Esterase Moderate H (Negative) Urine RBC 52 H (0-5) /hpf Urine WBC 25 H (0-5) /hpf Ur Squamous Epith Cells 41 H (0-4) /hpf Urine Bacteria Rare H (None) /hpf Urine Mucus Many H (None) /hpf Influenza Type A (PCR) (Not Detectd) Influenza Type B (PCR) (Not Detectd) RSV (PCR) (Not Detectd) SARS-CoV-2 (PCR) (Not Detectd) 09/21/22 09/21/22 09/21/22 Range/Units 18:37 18:37 20:14 WBC (3.8-10.6) k/uL RBC (3.80-5.40) m/uL Hgb (11.4-16.0) gm/dL Hct (34.0-46.0) % MCV (80.0-100.0) fL MCH (25.0-35.0) pg MCHC (31.0-37.0) g/dL RDW (11.5-15.5) % Plt Count (150-450) k/uL MPV Neutrophils % % Lymphocytes % % Monocytes % % Eosinophils % % Basophils % % Neutrophils # (1.3-7.7) k/uL Lymphocytes # (1.0-4.8) k/uL Monocytes # (0-1.0) k/uL Eosinophils # (0-0.7) k/uL Basophils # (0-0.2) k/uL VBG pH 7.33 (7.31-7.41) VBG pCO2 72 H* (37-51) mmHg VBG HCO3 37 H (24-28) mmol/L Sodium (137-145) mmol/L Potassium (3.5-5.1) mmol/L Chloride (98-107) mmol/L Carbon Dioxide (22-30) mmol/L Anion Gap mmol/L BUN (7-17) mg/dL Creatinine (0.52-1.04) mg/dL Est GFR (CKD-EPI)AfAm (>60 ml/min/1.73 sqM) Est GFR (CKD-EPI)NonAf (>60 ml/min/1.73 sqM) Glucose (74-99) mg/dL Plasma Lactic Acid Srinivas 0.7 (0.7-2.0) mmol/L Calcium (8.4-10.2) mg/dL Magnesium (1.6-2.3) mg/dL Total Bilirubin (0.2-1.3) mg/dL AST (14-36) U/L ALT (4-34) U/L Alkaline Phosphatase (38-126) U/L Total Protein (6.3-8.2) g/dL Albumin (3.5-5.0) g/dL Lipase (23-300) U/L Urine Color Urine Appearance (Clear) Urine pH (5.0-8.0) Ur Specific [place] (1.001-1.035) Urine Protein (Negative) Urine Glucose (UA) (Negative) Urine Ketones (Negative) Urine Blood (Negative) Urine Nitrite (Negative) Urine Bilirubin (Negative) Urine Urobilinogen (<2.0) mg/dL Ur Leukocyte Esterase (Negative) Urine RBC (0-5) /hpf Urine WBC (0-5) /hpf Ur Squamous Epith Cells (0-4) /hpf Urine Bacteria (None) /hpf Urine Mucus (None) /hpf Influenza Type A (PCR) Not Detected (Not Detectd) Influenza Type B (PCR) Not Detected (Not Detectd) RSV (PCR) Not Detected (Not Detectd) SARS-CoV-2 (PCR) Not Detected (Not Detectd) Disposition Clinical Impression: CAP (community acquired pneumonia), Acute exacerbation of COPD with asthma Disposition: ADMITTED IP TO THIS HOSP Condition: Stable Is patient prescribed a controlled substance at d/c from ED?: No Referrals: None,Stated [Primary Care Provider] - 1-2 days Time of Disposition: 21:00 Decision to Admit Reason: Admit from EC Decision Date: 09/21/22 Decision Time: 21:00
[2022-09-21 19:38] LABS: Appearance,Urine Cloudy (Clear); Bacteria,Urine Rare /hpf; Bilirubin,Urine Negative (Negative); Blood,Urine Small (Negative); Color,Urine Yellow; Glucose,Urine (UA) Negative (Negative); Ketones,Urine Negative (Negative); Leukocyte Esterase,Urine Moderate (Negative); Mucus,Urine Many /hpf; Nitrite,Urine Negative (Negative); Protein,Urine 1+ (Negative); RBC,Urine 52 /hpf (0-5); Specific Gravity,Urine 1.025 (1.001-1.035); Squamous Epithelial Cell,Urine 41 /hpf (0-4); WBC,Urine 25 /hpf (0-5)
--- NOTE | 2022-09-21 19:38 | XR ---
EXAMINATION TYPE: XR chest 2V DATE OF EXAM: 09/21/2022 6:50 PM COMPARISON: Chest radiographs from 05/31/2022 TECHNIQUE: XR chest 2V Frontal and lateral views of the chest. CLINICAL INDICATION:Female, 47 years old with history of Cough; FINDINGS: Lungs/Pleura: Left lower lobe airspace opacities. No pneumothorax or pleural effusion. Pulmonary vascularity: Unremarkable. Heart/mediastinum: Cardiomediastinal silhouette is unremarkable. Musculoskeletal: No acute osseous pathology. IMPRESSION: Left lower lobe airspace opacities concerning for pneumonia.
[2022-09-21 19:44] LABS: Basophils # (A) 0.1 k/uL (0-0.2); Basophils % (A) 0 %; Eosinophils # (A) 0.2 k/uL (0-0.7); Eosinophils % (A) 2 %; HCT 37.1 % (34.0-46.0); HGB 12.3 gm/dL (11.4-16.0); Lymphocytes # (A) 2.3 k/uL (1.0-4.8); Lymphocytes % (A) 17 %; MCH 28.1 pg (25.0-35.0); MCHC 33.1 g/dL (31.0-37.0); MCV 84.9 fL (80.0-100.0); Mean Platelet Volume 7.1; Monocytes # (A) 0.5 k/uL (0-1.0); Monocytes % (A) 4 %; Neutrophils # (A) 10.5 k/uL (1.3-7.7); Neutrophils % (A) 76 %; Platelet Count 253 k/uL (150-450); RBC 4.37 m/uL (3.80-5.40); RDW 13.7 % (11.5-15.5); WBC 13.8 k/uL (3.8-10.6)
[2022-09-21 19:57] LABS: ALT 21 U/L (4-34); African American GFR (CKD) >90 (>60 ml/min/1.73 sqM); Albumin 3.4 g/dL (3.5-5.0); Anion Gap 3 mmol/L; Blood Urea Nitrogen 9 mg/dL (7-17); Calcium 8.2 mg/dL (8.4-10.2); Carbon Dioxide 38 mmol/L (22-30); Chloride 97 mmol/L (98-107); Glucose 106 mg/dL (74-99); Lipase 14 U/L (23-300); Non-African American GFR(CKD) >90 (>60 ml/min/1.73 sqM); Sodium 138 mmol/L (137-145); Total Bilirubin 0.6 mg/dL (0.2-1.3); Total Protein 6.2 g/dL (6.3-8.2)
[2022-09-21 20:03] LABS: Potassium 3.9 mmol/L (3.5-5.1)
[2022-09-21 20:04] LABS: AST 28 U/L (14-36); Alkaline Phosphatase 78 U/L (38-126); Magnesium 1.6 mg/dL (1.6-2.3)
[2022-09-21 21:11] LABS: VBG PH 7.33 (7.31-7.41)
[2022-09-21] MEDS ORDERED: DOXYCYCLINE 100 MG CAP PO STA (21:15)
[2022-09-21] MEDS ORDERED: HYDROcodone/APAP 10-325MG 1 EACH TAB PO ONE (21:22)
[2022-09-21] MEDS ORDERED: NALOXONE 0.4 MG/ML 1 ML VIAL IV PRN (21:23)
--- NOTE | 2022-09-22 01:55 | P.HPIM ---
History of Present Illness H&P Date: 09/21/22 The patient is a 47-year-old female with a PMH of COPD, chronic hypoxic respiratory failure on 2 L nightly home oxygen, seizure disorder, and hypertension who presents to the emergency room with complaints of shortness of breath, cough, chest discomfort. The patient reports that over the past 3 days, she has developed gradually worsening cough productive of yellow-green phlegm. She also reports feeling dizzy during this time and having an episode of tonic- clonic seizure lasting around 2 minutes yesterday, as witnessed by her son. She reports compliance with her antiseizure medications. The patient also reports that throughout the day today, she's been experiencing a substernal chest tigh tness, nonradiating, constant, nonpleuritic, and somewhat worsened with exertion, 5 out of 10 on maximal intensity. Patient reports no chest discomfort at the time of interview. She denied lower extremity pain or swelling. Denied orthopnea or PND. Also denied fever or chills. Laboratory evaluation in the emergency room was remarkable for leukocytosis of 13.8 with CO2 38 and chest x- ray showing left lower lobe pneumonia. Review of systems: Pertinent positives and negatives as discussed in HPI, a complete review of systems was performed and all other systems are negative. Physical examination: Vital signs reviewed General: non toxic, no distress, appears older than stated age, obese Derm: no unusual rashes/lesions, warm Head: atraumatic, normocephalic, symmetric Eyes: EOMI, no lid lag, anicteric sclera, pupils equal round reactive to light ENT: Nose and ears atraumatic Neck: No cervical lymphadenopathy, trachea midline, supple Mouth: no lip lesion, mucus membranes moist Cardiovascular: S1S2 reg, no murmur, positive dorsalis pedis pulse bilateral, no edema Lungs: Scattered coarse breath sounds most prominent in the left base, no wheezing appreciated, no accessory muscle use Abdominal: soft, nontender to palpation, no guarding Ext: muscle strength 4 out of 5 in all 4 extremities grossly, no gross muscle atrophy, no contractures, Neuro: CN II-XI grossly intact, no gross focal neuro deficits Psych: Alert, oriented, appropriate affect Assessment: Community-acquired pneumonia Acute on chronic hypoxic respiratory failure Chest pain Breakthrough seizure Imaging: Chest x-ray in the emergency room revealed a left lower lobe opacity as reviewed by me personally. EKG had revealed sinus rhythm at [address]/T-wave changes noted as reviewed by me. Data Review: Vital signs upon presentation to the emergency room were BP 144/75, SpO2 92% on 2 L is a cannula oxygen, temp 98.2F, pulse 80, and respiratory rate 18. Laboratory evaluation was remarkable for leukocytosis of 13.8, VBG showing pCO2 of 72, sodium 138, potassium 3.9, chloride 97, CO2 38, BUN 9, creatinine 0.41, UA contaminated, influenza, RSV, and coronavirus negative. Plan: -Continue with Doxycylcine in light of extensive drug allergies -Cardiology consulted for new typical chest pain -Continue with Keppra and consult neurology for breakthrough seizure -Obtain troponin levels -Metabolic alkalosis, suspect compensatory from hypercapnia -Obtain ABG DVT prophylaxis: Heparin subq The patient is admitted with an anticipated less than 2 midnight stay for evaluation of pneumonia CODE STATUS: Full Code Discussed with: Patient Anticipated discharge place: Home Past Medical History Past Medical History: Asthma, Heart Failure, COPD, CVA/TIA, Fibromyalgia, Hypertension, Pneumonia, Rheumatoid Arthritis (RA), Seizure Disorder, Syncope Additional Past Medical History / Comment(s): 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 IBS, cellulitis of the chin, CVA about 1 year ago(no residual) History of Any Multi-Drug Resistant Organisms: MRSA Date of last positivie culture/infection: 07/2016 MDRO Source:: [facility] Past Surgical History: Appendectomy, Section, Cholecystectomy, Hysterectomy, Tubal Ligation Additional Past Surgical History / Comment(s): oral surgery . Pancreas biopsy May 2015. Past Anesthesia/Blood Transfusion Reactions: No Reported Reaction Past Psychological History: ADD/ADHD, Anxiety, Bipolar, Depression Additional Psychological History / Comment(s): Pt resides with her spouse and other family members. Pt states borderline personality disorder diagnosed around 2010. She has a cane and walker but does not normally use them. She do es not drive, her spouse drives. Smoking Status: Former smoker Past Alcohol Use History: None Reported Additional Past Alcohol Use History / Comment(s): Pt started smoking in 1983 and was a 3 ppd smoker but about 6 months ago cut down to 2 cigarettes a day. Past Drug Use History: Marijuana Additional Drug Use History / Comment(s): Says she occasionally has edible marijuana- a couple times within the last year. - Past Family History Father History Unknown: Yes Family Medical History: No Reported History Additional Family Medical History / Comment(s): Pt adopted Mother History Unknown: Yes Additional Family Medical History / Comment(s): Pt adopted Medications and Allergies Home Medications Medication Instructions Recorded Confirmed Type Spironolactone [Aldactone] 25 mg PO DAILY 02/05/17 09/21/22 History Citalopram Hydrobromide [CeleXA] 40 mg PO DAILY 06/12/19 09/21/22 History Dicyclomine [Bentyl] 10 mg PO QID PRN 05/28/20 09/21/22 History carvediloL [Coreg] 25 mg PO BID 03/26/21 09/21/22 History oxyCODONE-APAP 10-325MG [Percocet 1 tab PO TID PRN 03/16/22 09/21/22 History 10-325 mg] Naloxone HCl [Narcan] 4 mg NASAL ONCE PRN 05/29/22 09/21/22 History QUEtiapine [SEROquel] 100 mg PO DAILY 07/21/22 09/21/22 History QUEtiapine [SEROquel] 150 mg PO HS 07/21/22 09/21/22 History levETIRAcetam [Keppra] 500 mg PO BID 07/21/22 09/21/22 History Allergies Allergy/AdvReac Type Severity Reaction Status Date / Time adhesive Allergy Rash/Hives Verified 09/21/22 18:53 amoxicillin Allergy Anaphylaxis Verified 09/21/22 18:53 azithromycin [From Zithromax] Allergy Anaphylaxis Verified 09/21/22 18:53 cephalexin monohydrate Allergy Anaphylaxis Verified 09/21/22 18:53 [From Keflex] ciprofloxacin Allergy Anaphylaxis Verified 09/21/22 18:53 clindamycin Allergy Anaphylaxis Verified 09/21/22 18:53 Iodinated Contrast Media Allergy Anaphylaxis Verified 09/21/22 18:53 [Iodinated Contrast- Oral and IV Dye] levofloxacin [From Levaquin] Allergy Rash/Hives Verified 09/21/22 18:53 naproxen Allergy Anaphylaxis Verified 09/21/22 18:53 NSAIDS (Non-Steroidal Allergy Rash/Hives Verified 09/21/22 18:53 Anti-Inflamma shellfish derived Allergy Anaphylaxis Verified 09/21/22 18:53 Sulfa (Sulfonamide Allergy Anaphylaxis Verified 09/21/22 18:53 Antibiotics) sulfamethoxazole Allergy Anaphylaxis Verified 09/21/22 18:53 [From Bactrim] tramadol Allergy Unknown Verified 09/21/22 18:53 trimethoprim [From Bactrim] Allergy Anaphylaxis Verified 09/21/22 18:53 Physical Exam Vitals: Vital Signs Temp Pulse Pulse Resp BP BP Pulse Ox 09/21/22 22:32 98.1 F 76 17 129/81 92 L 09/21/22 22:10 97.9 F 76 18 146/78 95 09/21/22 21:32 81 17 166/97 96 09/21/22 21:00 78 18 144/74 97 09/21/22 20:00 80 17 118/77 97 09/21/22 19:42 71 17 105/61 96 09/21/22 19:18 76 09/21/22 19:08 75 09/21/22 19:07 75 09/21/22 19:04 74 18 137/78 99 09/21/22 18:57 75 09/21/22 18:30 20 09/21/22 18:26 98.3 F 80 18 144/75 92 L Intake and Output 09/21/22 09/21/22 09/22/22 14:59 22:59 06:59 Other: Weight 85.729 kg Results CBC & Chem 7: 09/21/22 18:37 09/21/22 18:37 Labs: Abnormal Lab Results - Last 24 Hours (Table) 09/21/22 09/21/22 09/21/22 Range/Units 18:37 18:37 18:37 WBC 13.8 H (3.8-10.6) k/uL Neutrophils # 10.5 H (1.3-7.7) k/uL VBG pCO2 (37-51) mmHg VBG HCO3 (24-28) mmol/L Chloride 97 L (98-107) mmol/L Carbon Dioxide 38 H (22-30) mmol/L Creatinine 0.41 L (0.52-1.04) mg/dL Glucose 106 H (74-99) mg/dL Calcium 8.2 L (8.4-10.2) mg/dL Total Protein 6.2 L (6.3-8.2) g/dL Albumin 3.4 L (3.5-5.0) g/dL Lipase 14 L (23-300) U/L Urine Appearance Cloudy H (Clear) Urine Protein 1+ H (Negative) Urine Blood Small H (Negative) Ur Leukocyte Esterase Moderate H (Negative) Urine RBC 52 H (0-5) /hpf Urine WBC 25 H (0-5) /hpf Ur Squamous Epith Cells 41 H (0-4) /hpf Urine Bacteria Rare H (None) /hpf Urine Mucus Many H (None) /hpf 09/21/22 Range/Units 20:14 WBC (3.8-10.6) k/uL Neutrophils # (1.3-7.7) k/uL VBG pCO2 72 H* (37-51) mmHg VBG HCO3 37 H (24-28) mmol/L Chloride (98-107) mmol/L Carbon Dioxide (22-30) mmol/L Creatinine (0.52-1.04) mg/dL Glucose (74-99) mg/dL Calcium (8.4-10.2) mg/dL Total Protein (6.3-8.2) g/dL Albumin (3.5-5.0) g/dL Lipase (23-300) U/L Urine Appearance (Clear) Urine Protein (Negative) Urine Blood (Negative) Ur Leukocyte Esterase (Negative) Urine RBC (0-5) /hpf Urine WBC (0-5) /hpf Ur Squamous Epith Cells (0-4) /hpf Urine Bacteria (None) /hpf Urine Mucus (None) /hpf Thrombosis Risk Factor Assmnt - Choose All That Apply Each Factor Represents 1 point: Abnormal pulmonary function (COPD), Age 41-60 y ears, Obesity (BMI >25) Thrombosis Risk Factor Assessment Total Risk Factor Score: 3 Thrombosis Risk Factor Assessment Level: Moderate Risk
[2022-09-22 05:34] LABS: Allen Test Performed? Yes
[2022-09-22] MEDS: oxyCODONE-APAP 10-325MG 1 EACH TAB PO PRN ×3 (05:53→21:18)
[2022-09-22] MEDS ORDERED: guaiFENesin SYRUP 100MG/5ML 200 MG/10 ML CUP PO STA (06:06)
[2022-09-22 06:39] LABS: ABG HCO3 34 mmol/L (21-25); ABG PCO2 54 mmHg (35-45); ABG PH 7.41 (7.35-7.45); ABG PO2 56 mmHg (83-108); ABG TCO2 36 mmol/L (19-24)
--- NOTE | 2022-09-22 07:52 | CT ---
EXAMINATION TYPE: CT brain wo con CT DLP: 1054.2 mGycm, Automated exposure control for dose reduction was used. DATE OF EXAM: 09/22/2022 7:38 AM COMPARISON: 07/21/2022. CLINICAL INDICATION:Female, 47 years old with history of seizure, dizziness, seizure, dizziness TECHNIQUE: Brain: Axial CT images of the brain were obtained with coronal and sagittal reformats created and rev iewed. Contrast used: None. Oral contrast used: None. FINDINGS: Brain: Extra-axial spaces: No abnormal extra-axial fluid collections. Ventricular system: Within normal limits Cerebral parenchyma: No acute intraparenchymal hemorrhage or mass effect. The alvarez-white junction is well differentiated. Cerebellum: Unremarkable. Mass effect: No evidence of midline shift. Intracranial vasculature: unremarkable Soft tissues: Normal. Calvarium/osseous structures: No depressed skull fracture. Paranasal sinuses and mastoid air cells: Mild scattered paranasal sinus disease most proximal left et hmoid air cells and sphenoid sinuses. Visualized orbits: Orbital contents are intact. IMPRESSION: No acute intracranial process. Persistent paranasal sinus disease most pronounced in the left.
[2022-09-22] MEDS ORDERED: levETIRAcetam 500 MG TAB PO SCH (09:00)
[2022-09-22] MEDS: SPIRONOLACTONE 25 MG TAB PO SCH (09:25)
[2022-09-22] MEDS: CITALOPRAM HYDROBROMIDE 20 MG TAB PO SCH (09:26)
[2022-09-22] MEDS: QUEtiapine 100 MG TAB PO SCH (09:26)
[2022-09-22] MEDS: HEPARIN SODIUM,PORCINE/PF 5,000 UNIT/0.5 ML SYRINGE SQ SCH ×2 (09:26→16:43)
[2022-09-22] MEDS: carvediloL 12.5 MG TAB PO SCH ×2 (09:26→21:18)
[2022-09-22] MEDS: DOXYCYCLINE 100 MG in SODIUM CHLORIDE 0.9% 100 ML IVPB SCH ×2 (09:26→21:19)
--- NOTE | 2022-09-22 11:05 | P.CRDCN ---
History of Present Illness Consult date: 09/22/22 Consult reason: chest pain History of present illness: HISTORY OF PRESENT ILLNESS: This is a 47-year-old female with a past medical history significant for hypertension, nicotine dependence, chronic pain, COPD, and marijuana use, fibromyalgia, rheumatoid arthritis according to the patient. Patient does not follow with a analytical technician. We have been asked to see the patient in consultation for chest pain. Patient states that she was admitted to the hospital due to pneumonia, seizures. She was having shortness of breath for 3 days and worsening and called EMS. Patient states she began having pain in the left side of her chest. The patient reports she is adopted and does not know her family history. * EKG reveals sinus mechanism with no signs of acute ischemia * Chest xray left lower lobe opacities possible pneumonia * CAT scan of the brain no acute findings * Laboratory data: WBC 13.8, hemoglobin 12.3, platelet count 253. Potassium 3.9, BUN 9, creatinine 0.41. Blood sugar 106. Liver function tests are nor mal. Troponin negative 2. Lipase 14. A urinalysis a poor specimen. Influenza A, influenza B, RSV, Covid 19 not detected.. * Current home cardiac medications include Coreg 25 mg twice daily, Aldactone 25 mg daily * Most recent echocardiogram obtained in March 2021 revealed ejection fraction 55% * Patient underwent Lexiscan stress test in 10/2021 that revealed negative for ischemia REVIEW OF SYSTEMS: At the time of my exam: CONSTITUTIONAL: Denies fever or chills. HEENT: Denies blurred vision, vision changes, or eye pain. Denies hemoptysis CARDIOVASCULAR: Denies chest pain. Denies orthopnea. Denies PND. Denies palpitations RESPIRATORY: Denies shortness of breath. GASTROINTESTINAL: Denies abdominal pain. Denies nausea or vomiting. HEMATOLOGIC: Denies bleeding disorders. GENITOURINARY: Denies any blood in urine. SKIN: Denies pruitis. Denies rash. PHYSICAL EXAM: VITAL SIGNS: Reviewed. GENERAL: Well-developed in no acute distress. HEENT: Head is normocephalic. Pupils are equal, round. Sclerae anicteric. Mucous membranes of the mouth are moist. Neck supple. No JVD or thyromegaly LUNGS: Respirations even and unlabored. Lungs essentially clear to auscultation bilaterally. HEART: Regular rate and rhythm. S1 and S2 heard. ABDOMEN: Soft. Nondistended. Nontender. EXTREMITIES: Normal range of motion. No clubbing or cyanosis. Peripheral pulses intact. No lower extremity edema NEUROLOGIC: Awake and alert. Oriented x 3. ASSESSMENT: Chest pain most likely due to pericarditis from pneumonia Pneumonia left lower lobe Hypertension COPD Chronic pain Nicotine dependence Marijuana use Anxiety PLAN: An acute coronary event has been ruled out Obtain 2-D echocardiogram and look for signs of pericarditis Continue patient's home cardiac medications No further cardiac workup. Cardiology will sign off and follow on an as needed basis. Nurse practitioner note has been reviewed by physician. Signing provider agrees with the documented findings, assessment, and plan of care. Past Medical History Past Medical History: Asthma, Heart Failure, COPD, CVA/TIA, Fibromyalgia, Hypertension, Pneumonia, Rheumatoid Arthritis (RA), Seizure Disorder, Syncope Additional Past Medical History / Comment(s): 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 IBS, cellulitis of the chin, CVA about 1 year ago(no residual) History of Any Multi-Drug Resistant Organisms: MRSA Date of last positivie culture/infection: 07/2016 MDRO Source:: [facility] Past Surgical History: Appendectomy, Section, Cholecystectomy, Hysterectomy, Tubal Ligation Additional Past Surgical History / Comment(s): oral surgery . Pancreas biopsy May 2015. Past Anesthesia/Blood Transfusion Reactions: No Reported Reaction Past Psychological History: ADD/ADHD, Anxiety, Bipolar, Depression Additional Psychological History / Comment(s): Pt resides with her spouse and other family members. Pt states borderline personality disorder diagnosed around 2010. She has a cane and walker but does not normally use them. She does not drive, her spouse drives. Smoking Status: Former smoker Past Alcohol Use History: None Reported Additional Past Alcohol Use History / Comment(s): Pt started smoking in 1983 and was a 3 ppd smoker but about 6 months ago cut down to 2 cigarettes a day. Past Drug Use History: Marijuana Additional Drug Use History / Comment(s): Says she occasionally has edible marijuana- a couple times within the last year. - Past Family History Father History Unknown: Yes Family Medical History: No Reported History Additional Family Medical History / Comment(s): Pt adopted Mother History Unknown: Yes Additional Family Medical History / Comment(s): Pt adopted Medications and Allergies Home Medications Medication Instructions Recorded Confirmed Type Spironolactone [Aldactone] 25 mg PO DAILY 02/05/17 09/21/22 History Citalopram Hydrobromide [CeleXA] 40 mg PO DAILY 06/12/19 09/21/22 History Dicyclomine [Bentyl] 10 mg PO QID PRN 05/28/20 09/21/22 History carvediloL [Coreg] 25 mg PO BID 03/26/21 09/21/22 History oxyCODONE-APAP 10-325MG [Percocet 1 tab PO TID PRN 03/16/22 09/21/22 History 10-325 mg] Naloxone HCl [Narcan] 4 mg NASAL ONCE PRN 05/29/22 09/21/22 History QUEtiapine [SEROquel] 100 mg PO DAILY 07/21/22 09/21/22 History QUEtiapine [SEROquel] 150 mg PO HS 07/21/22 09/21/22 History levETIRAcetam [Keppra] 500 mg PO BID 07/21/22 09/21/22 History Allergies Allergy/AdvReac Type Severity Reaction Status Date / Time adhesive Allergy Rash/Hives Verified 09/21/22 18:53 amoxicillin Allergy Anaphylaxis Verified 09/21/22 18:53 azithromycin [From Zithromax] Allergy Anaphylaxis Verified 09/21/22 18:53 cephalexin monohydrate Allergy Anaphylaxis Verified 09/21/22 18:53 [From Keflex] ciprofloxacin Allergy Anaphylaxis Verified 09/21/22 18:53 clindamycin Allergy Anaphylaxis Verified 09/21/22 18:53 Iodinated Contrast Media Allergy Anaphylaxis Verified 09/21/22 18:53 [Iodinated Contrast- Oral and IV Dye] levofloxacin [From Levaquin] Allergy Rash/Hives Verified 09/21/22 18:53 naproxen Allergy Anaphylaxis Verified 09/21/22 18:53 NSAIDS (Non-Steroidal Allergy Rash/Hives Verified 09/21/22 18:53 Anti-Inflamma shellfish derived Allergy Anaphylaxis Verified 09/21/22 18:53 Sulfa (Sulfonamide Allergy Anaphylaxis Verified 09/21/22 18:53 Antibiotics) sulfamethoxazole Allergy Anaphylaxis Verified 09/21/22 18:53 [From Bactrim] tramadol Allergy Unknown Verified 09/21/22 18:53 trimethoprim [From Bactrim] Allergy Anaphylaxis Verified 09/21/22 18:53 Physical Exam Vitals: Vital Signs Temp Pulse Pulse Resp BP BP BP 09/22/22 07:00 97.5 F L 75 18 168/101 09/22/22 03:53 97.8 F 69 16 150/72 09/22/22 02:00 17 09/21/22 22:32 98.1 F 76 17 129/81 09/21/22 22:10 97.9 F 76 18 146/78 09/21/22 21:32 81 17 166/97 09/21/22 21:00 78 18 144/74 09/21/22 20:00 80 17 118/77 09/21/22 19:42 71 17 105/61 09/21/22 19:18 76 09/21/22 19:08 75 09/21/22 19:07 75 09/21/22 19:04 74 18 137/78 09/21/22 18:57 75 09/21/22 18:30 20 09/21/22 18:26 98.3 F 80 18 144/75 Pulse Ox 09/22/22 07:00 96 09/22/22 03:53 96 09/22/22 02:00 09/21/22 22:32 92 L 09/21/22 22:10 95 09/21/22 21:32 96 09/21/22 21:00 97 09/21/22 20:00 97 09/21/22 19:42 96 09/21/22 19:18 09/21/22 19:08 09/21/22 19:07 09/21/22 19:04 99 09/21/22 18:57 09/21/22 18:30 09/21/22 18:26 92 L Intake and Output 09/21/22 09/22/22 09/22/22 22:59 06:59 14:59 Other: Voiding Method Toilet # Voids 2 Weight 85.729 kg Results 09/21/22 18:37 09/21/22 18:37 Cardiac Enzymes 09/21/22 09/22/22 Range/Units 18:37 03:26 AST 28 (14-36) U/L Troponin I <0.012 (0.000-0.034) ng/mL CBC 09/21/22 Range/Units 18:37 WBC 13.8 H (3.8-10.6) k/uL RBC 4.37 (3.80-5.40) m/uL Hgb 12.3 (11.4-16.0) gm/dL Hct 37.1 (34.0-46.0) % Plt Count 253 (150-450) k/uL Comprehensive Metabolic Panel 09/21/22 Range/Units 18:37 Sodium 138 (137-145) mmol/L Potassium 3.9 (3.5-5.1) mmol/L Chloride 97 L (98-107) mmol/L Carbon Dioxide 38 H (22-30) mmol/L BUN 9 (7-17) mg/dL Creatinine 0.41 L (0.52-1.04) mg/dL Glucose 106 H (74-99) mg/dL Calcium 8.2 L (8.4-10.2) mg/dL AST 28 (14-36) U/L ALT 21 (4-34) U/L Alkaline Phosphatase 78 (38-126) U/L Total Protein 6.2 L (6.3-8.2) g/dL Albumin 3.4 L (3.5-5.0) g/dL Current Medications Generic Name Dose Route Start Last Admin Trade Name Freq PRN Reason Stop Dose Admin Carvedilol 25 mg 09/22/22 09:00 Carvedilol 12.5 Mg Tab PO BID [facility] Citalopram Hydrobromide 40 mg 09/22/22 09:00 Citalopram Hydrobromide 20 Mg Tab PO DAILY [facility] Heparin Sodium (Porcine) 5,000 unit 09/22/22 08:00 Heparin Sodium,Porcine/Pf 5,000 Unit/0.5 Ml Syringe SQ Q8HR [facility] Doxycycline Hyclate 100 mg/ 100 mls @ 100 mls/hr 09/22/22 09:00 Sodium Chloride IVPB Q12HR [facility] Protocol Levetiracetam 500 mg 09/22/22 09:00 Levetiracetam 500 Mg Tab PO BID [facility] Naloxone HCl 0.2 mg 09/21/22 21:23 Naloxone 0.4 Mg/Ml 1 Ml Vial IV Q2M PRN Opioid Reversal Oxycodone/Acetaminophen 1 each 09/22/22 01:53 09/22/22 05:53 Oxycodone-Apap 10-325mg 1 Each Tab PO 1 each TID PRN Administration Pain Quetiapine Fumarate 150 mg 09/22/22 21:00 Quetiapine 50 Mg Tab PO HS [facility] Quetiapine Fumarate 100 mg 09/22/22 09:00 Quetiapine 100 Mg Tab PO DAILY [facility] Spironolactone 25 mg 09/22/22 09:00 Spironolactone 25 Mg Tab PO DAILY [facility] Intake and Output 09/21/22 09/22/22 09/22/22 22:59 06:59 14:59 Other: Voiding Method Toilet # Voids 2 Weight 85.729 kg 09/21/22 18:37 09/21/22 18:37
[2022-09-22] MEDS ORDERED: ALBUTEROL HFA INHALER INHALATION PRN (18:04)
--- NOTE | 2022-09-22 18:09 | P.PN ---
Subjective Progress Note Date: 09/22/22 Hospital course: The patient is a very pleasant 47-year-old female with a past medical history of COPD with chronic hypoxic respiratory failure on 2 L nightly home oxygen and CPAP use, seizure disorder, and hypertension. She presented to the emergency department on 09/21/22 secondary to worsening shortness of breath, cough, and chest pain 3 days along with a witnessed breakthrough tonic-clonic seizure. Patient underwent full evaluation in the emergency department. EEG was completed showing normal sinus rhythm at 73 bpm with no noted T-wave or ST abnormalities upon personal review and interpretation. CT had also completed radiology report stating negative for acute intercranial process revealing persistent paranasal this disease most pronounced in the left unchanged from previous CT completed 07/21/22. Labs completed and reviewed. CBC revealing leuk ocytosis with WBC count of 13.8. Blood gas showing significant hypercarbia with pCO2 of 72. BMP revealing hypercarbia with bicarb of 38. Lactic acid normal findings 0.7. CMP showing no significant abnormalities. Initial troponin negative at less than 0.012. Chest x-ray was completed showing a left lower lobe airspace opacities concerning for pneumonia. Patient started on IV antibiotics with doxycycline 100 mg twice a day and admitted under our services at this time. Troponis were trended all negative at less than 0.0123 draws. Physical examination: Patient seen and fully evaluated at bedside. She reports feeling "horrible". However she currently denies having any chest pain or palpitations. She reports continued shortness of breath and cough. Respirations even, regular, and unlabored on baseline 2 L O2 via nasal cannula. General: non toxic, no distress, appears at stated age Derm: warm, dry Head: atraumatic, normocephalic, symmetric Eyes: EOMI, no lid lag, anicteric sclera Mouth: no lip lesion, mucus membranes moist Cardiovascular: S1S2 reg, no murmur, positive posterior tibial pulse bilateral, Lungs: Lungs diminished with diffuse expiratory wheezes bilaterally. Abdominal: soft, nontender to palpation, no guarding, no appreciable organomegaly Ext: no gross muscle atrophy, no edema, no contractures Neuro: CN II-XI grossly intact, no focal neuro deficits Psych: Alert, oriented, appropriate affect Assessment and plan of care: Community-acquired pneumonia, left lower lobe Acute on chronic hypoxic and hypercarbic respiratory failure COPD with acute exacerbation secondary to above -Reviewed laboratory findings. CBC showing leukocytosis with WBC count of 13.8 and BMP showing hypercarbia with bicarb of 38.. Hypercarbia with venous blood gas showing a pCO2 of 72. -Chest x-ray was reviewed showing a left lower lobe airspace opacities concerning for pneumonia. -Continue IV antibiotic with doxycycline 100 mg twice a day. -Order placed or Solu-Medrol 40 mg IVP twice a day, scheduled albuterol nebulizer treatments 4 times daily and as needed albuterol nebulizer treatments for wheezing/shortness of breath. -Order placed for Robitussin 200 mg by mouth every 6 hours -Order placed for CPAP nightly as patient reports she has not been using due to increased shortness of breath over the past couple days and cough -Order placed for chest x-ray to be repeated tomorrow morning. -Order placed for consult to pulmonology Atypical Chest pain, likely secondary to left lower lobe pneumonia -EKG reviewed showing normal sinus rhythm at 73 bpm with no noted T-wave or ST abnormalities upon personal review and interpretation. -Troponins were trended overnight and reviewed all were negative at less than 0.0123 draws -Cardiology was consulted, reviewed consult note. Cardiology states chest pain likely secondary to pericarditis recommending echocardiogram. -Echocardiogram completed, awaiting results. Breakthrough seizure -Neurology was consulted. -Continue Keppra 500 mg twice a day pending further recommendations from cardiology. -Maintain seizure precautions. Hypomagnesemia -Magnesium was 1.6. Order placed for replacement with 2 g magnesium sulfate IVPB. -Order placed for repeat magnesium level tomorrow morning with a.m. labs and will continue to replace abnormal electrolyte values as indicated. CODE STATUS: Full Code DVT prophylaxis with heparin Discussed with: Patient Anticipated discharge place: Home Ceasar Santos NP rendered care for this patient independently, reviewed the findings and plan as documented in the note above. I did not physically speak with or examine the patient on this date. Objective - Vital Signs Vital signs: Vital Signs Temp 97.5 F L 09/22/22 07:00 Pulse 75 09/22/22 07:00 Resp 18 09/22/22 07:00 BP 168/101 09/22/22 07:00 Pulse Ox 96 09/22/22 07:00 FiO2 Intake & Output 09/21/22 09/22/22 09/22/22 18:59 06:59 18:59 Weight 85.729 kg 85.729 kg Other: Voiding Method Toilet # Voids 2 - Labs CBC & Chem 7: 09/23/22 05:10 09/23/22 05:10 Labs: Abnormal Lab Results - Last 24 Hours (Table) 09/21/22 09/21/22 09/21/22 Range/Units 18:37 18:37 18:37 WBC 13.8 H (3.8-10.6) k/uL Neutrophils # 10.5 H (1.3-7.7) k/uL ABG pCO2 (35-45) mmHg ABG pO2 (83-108) mmHg ABG HCO3 (21-25) mmol/L ABG Total CO2 (19-24) mmol/L ABG O2 Saturation (94-97) % VBG pCO2 (37-51) mmHg VBG HCO3 (24-28) mmol/L Chloride 97 L (98-107) mmol/L Carbon Dioxide 38 H (22-30) mmol/L Creatinine 0.41 L (0.52-1.04) mg/dL Glucose 106 H (74-99) mg/dL Calcium 8.2 L (8.4-10.2) mg/dL Total Protein 6.2 L (6.3-8.2) g/dL Albumin 3.4 L (3.5-5.0) g/dL Lipase 14 L (23-300) U/L Urine Appearance Cloudy H (Clear) Urine Protein 1+ H (Negative) Urine Blood Small H (Negative) Ur Leukocyte Esterase Moderate H (Negative) Urine RBC 52 H (0-5) /hpf Urine WBC 25 H (0-5) /hpf Ur Squamous Epith Cells 41 H (0-4) /hpf Urine Bacteria Rare H (None) /hpf Urine Mucus Many H (None) /hpf 09/21/22 09/22/22 Range/Units 20:14 06:15 WBC (3.8-10.6) k/uL Neutrophils # (1.3-7.7) k/uL ABG pCO2 54 H (35-45) mmHg ABG pO2 56 L* (83-108) mmHg ABG HCO3 34 H (21-25) mmol/L ABG Total CO2 36 H (19-24) mmol/L ABG O2 Saturation 90.0 L (94-97) % VBG pCO2 72 H* (37-51) mmHg VBG HCO3 37 H (24-28) mmol/L Chloride (98-107) mmol/L Carbon Dioxide (22-30) mmol/L Creatinine (0.52-1.04) mg/dL Glucose (74-99) mg/dL Calcium (8.4-10.2) mg/dL Total Protein (6.3-8.2) g/dL Albumin (3.5-5.0) g/dL Lipase (23-300) U/L Urine Appearance (Clear) Urine Protein (Negative) Urine Blood (Negative) Ur Leukocyte Esterase (Negative) Urine RBC (0-5) /hpf Urine WBC (0-5) /hpf Ur Squamous Epith Cells (0-4) /hpf Urine Bacteria (None) /hpf Urine Mucus (None) /hpf Microbiology - Last 24 Hours (Table) 09/21/22 18:37 Urine Culture - Preliminary Urine,Voided
[2022-09-22] MEDS: ALBUTEROL HFA INHALER INHALATION SCH (18:19)
[2022-09-22] MEDS: MAGNESIUM SULFATE-D5W PMX 1 GM in DEXTROSE/WATER 1 100ML.BAG IVPB SCH ×2 (18:24→19:40)
[2022-09-22] MEDS: guaiFENesin SYRUP 100MG/5ML 200 MG/10 ML CUP PO SCH (18:24)
--- NOTE | 2022-09-22 21:00 | P.CNNES ---
History of Present Illness Consult date: 09/22/22 Requesting physician: Bertin Mclain Reason for Consult: Breakthrough seizure History of Present Illness: Patient is a 47-year-old female with history of seizure disorder came to the hospital by ambulance yesterday at 6:24 PM for breakthrough seizure. Patient states that her seizures are related to stress. She is under a lot of stress related to her family and social issues. Patient says that she has not had seizure for quite some time. However yesterday she had 5 seizures. As per EMS flow sheet, when they arrived, patient was alert and oriented 4, walking around the house. Bystanders states this is her fifth seizure today, and that this one lasted longer than the other ones roughly 5 minutes. Patient mentioned that she has not been feeling well for 3 days and has a productive cough. Patient was coughing up greenish yellow phlegm. Patient denied any chest pain or dizziness. Patient was having some difficulty in breathing and nausea. Patient mentioned that she is normally is on 2 L/m oxygen at home. Patient's blood pressure at the scene was 179/84, pulse rate 85, respiration 20, saturation 88% CT head showed no acute intracranial process. Persistent paranasal sinus disease. Chest x-ray showed left lower lobe airspace opacities concerning for pneumonia. EKG shows sinus rhythm. Blood tests shows WBC 13.8 normal hemoglobin and platelets. Electrolytes are normal, renal functions normal, hepatic panel normal. Lactate was normal 0.7. Troponin negative. UA shows moderate leukocyte esterase. Influenza screen, RSV and coronal virus PCR negative. ABG shows pH of 7.41, pCO2 54, pO2 56 and saturation 90%. Patient's home medications include Keppra 500 mg twice a day, Seroquel 150 mg at bedtime and 100 mg in the morning, Percocets, Coreg, Bentyl, Celexa 40 mg and Aldactone 20 5M daily. Patient had an EEG on 05/31/2022 which was abnormal due to background slowing of at least moderate degree and presence of frontal intermittent rhythmic delta activity. This is suggestive of generalized cerebral dysfunction as can be seen with toxic metabolic encephalopathy. Clinical correlation recommended. No epileptiform activity was seen. Patient has been seen by myself previously on 05/31/2022. Patient has mentioned that she has history of seizures "off and on" for years. She has mentioned that these are stress induced or when she gets upset. She follows up with Dr. Felix Wick. Patient used to be a smoker, cutback to one cigarette per week. Review of Systems Constitutional: Reports fever, Reports malaise, Reports sweats Eyes: denies blurred vision, denies pain Ears: deny: decreased hearing, ear discharge Ears, nose, mouth and throat: Denies headache, Denies sore throat Cardiovascular: Reports chest pain, Reports shortness of breath Respiratory: Reports cough, Reports cough with sputum, Reports dyspnea, Reports excessive sputum, Reports home oxygen, Reports wheezing Gastrointestinal: Denies abdominal pain, Denies diarrhea, Denies nausea, Denies vomiting Integumentary: Denies pruritus, Denies rash Neurological: Reports as per HPI Past Medical History Past Medical History: Asthma, Heart Failure, COPD, CVA/TIA, Fibromyalgia, Hypertension, Pneumonia, Rheumatoid Arthritis (RA), Seizure Disorder, Syncope Additional Past Medical History / Comment(s): Pancreatitic fibrosis diagnosis in August 2015, chronic back pain/ migraines, chronic abdominal pain, kidney st ones,. IBS, cellulitis of the chin, CVA about 1 year ago(no residual) History of Any Multi-Drug Resistant Organisms: MRSA Date of last positivie culture/infection: 07/2016 MDRO Source:: [facility] Past Surgical History: Appendectomy, Section, Cholecystectomy, Hysterectomy, Tubal Ligation Additional Past Surgical History / Comment(s): oral surgery . Pancreas biopsy May 2015. Past Anesthesia/Blood Transfusion Reactions: No Reported Reaction Past Psychological History: ADD/ADHD, Anxiety, Bipolar, Depression Additional Psychological History / Comment(s): Pt resides with her spouse and other family members. Pt states borderline personality disorder diagnosed around 2010. She has a cane and walker but does not normally use them. She does not drive, her spouse drives. Smoking Status: Former smoker Past Alcohol Use History: None Reported Additional Past Alcohol Use History / Comment(s): Pt started smoking in 1983 and was a 3 ppd smoker but about 6 months ago cut down to 2 cigarettes a day. Past Drug Use History: Marijuana Additional Drug Use History / Comment(s): Says she occasionally has edible marijuana- a couple times within the last year. - Past Family History Father History Unknown: Yes Family Medical History: No Reported History Additional Family Medical History / Comment(s): Pt adopted Mother History Unknown: Yes Additional Family Medical History / Comment(s): Pt adopted Medications and Allergies Home Medications Medication Instructions Recorded Confirmed Type Spironolactone [Aldactone] 25 mg PO DAILY 02/05/17 09/21/22 History Citalopram Hydrobromide [CeleXA] 40 mg PO DAILY 06/12/19 09/21/22 History Dicyclomine [Bentyl] 10 mg PO QID PRN 05/28/20 09/21/22 History carvediloL [Coreg] 25 mg PO BID 03/26/21 09/21/22 History oxyCODONE-APAP 10-325MG [Percocet 1 tab PO TID PRN 03/16/22 09/21/22 History 10-325 mg] Naloxone HCl [Narcan] 4 mg NASAL ONCE PRN 05/29/22 09/21/22 History QUEtiapine [SEROquel] 100 mg PO DAILY 07/21/22 09/21/22 History QUEtiapine [SEROquel] 150 mg PO HS 07/21/22 09/21/22 History levETIRAcetam [Keppra] 500 mg PO BID 07/21/22 09/21/22 History Allergies Allergy/AdvReac Type Severity Reaction Status Date / Time adhesive Allergy Rash/Hives Verified 09/21/22 18:53 amoxicillin Allergy Anaphylaxis Verified 09/21/22 18:53 azithromycin [From Zithromax] Allergy Anaphylaxis Verified 09/21/22 18:53 cephalexin monohydrate Allergy Anaphylaxis Verified 09/21/22 18:53 [From Keflex] ciprofloxacin Allergy Anaphylaxis Verified 09/21/22 18:53 clindamycin Allergy Anaphylaxis Verified 09/21/22 18:53 Iodinated Contrast Media Allergy Anaphylaxis Verified 09/21/22 18:53 [Iodinated Contrast- Oral and IV Dye] levofloxacin [From Levaquin] Allergy Rash/Hives Verified 09/21/22 18:53 naproxen Allergy Anaphylaxis Verified 09/21/22 18:53 NSAIDS (Non-Steroidal Allergy Rash/Hives Verified 09/21/22 18:53 Anti-Inflamma shellfish derived Allergy Anaphylaxis Verified 09/21/22 18:53 Sulfa (Sulfonamide Allergy Anaphylaxis Verified 09/21/22 18:53 Antibiotics) sulfamethoxazole Allergy Anaphylaxis Verified 09/21/22 18:53 [From Bactrim] tramadol Allergy Unknown Verified 09/21/22 18:53 trimethoprim [From Bactrim] Allergy Anaphylaxis Verified 09/21/22 18:53 Physical Examination - Vital Signs Vital Signs: Vital Signs Temp Pulse Pulse Resp BP BP BP 09/22/22 15:00 98.2 F 70 17 168/88 09/22/22 07:00 97.5 F L 75 18 168/101 09/22/22 03:53 97.8 F 69 16 150/72 09/22/22 02:00 17 09/21/22 22:32 98.1 F 76 17 129/81 09/21/22 22:10 97.9 F 76 18 146/78 09/21/22 21:32 81 17 166/97 09/21/22 21:00 78 18 144/74 09/21/22 20:00 80 17 118/77 09/21/22 19:42 71 17 105/61 09/21/22 19:18 76 09/21/22 19:08 75 09/21/22 19:07 75 09/21/22 19:04 74 18 137/78 09/21/22 18:57 75 Pulse Ox 09/22/22 15:00 93 L 09/22/22 07:00 96 09/22/22 03:53 96 09/22/22 02:00 09/21/22 22:32 92 L 09/21/22 22:10 95 09/21/22 21:32 96 09/21/22 21:00 97 09/21/22 20:00 97 09/21/22 19:42 96 09/21/22 19:18 09/21/22 19:08 09/21/22 19:07 09/21/22 19:04 99 09/21/22 18:57 Intake and Output 09/22/22 09/22/22 09/22/22 06:59 14:59 22:59 Intake Total 118 240 Balance 118 240 Intake: Oral 118 240 Other: Voiding Method Toilet # Voids 2 1 Patient is a middle aged female, who appears to be slightly short of breath. She has oxygen on. Patient is alert awake oriented to time place and person. Patient knows it is September 2022 and that she is in [facility]. Speech and language functions are normal. Patient can name and repeat very well. No aphasia or dysarthria. Attention, concentration and fund of knowledge is adequate. On cranial nerve examination, pupils are equal, round and reacting to light, visual daniel are full on confrontation, with no neglect on double simultaneous stimulation. Extraocular muscles are intact with no nystagmus. Face is symmetric, tongue protrudes to the midline. Palatal elevation and sensation normal, hearing and shoulder shrug normal, facial sensation normal. On muscle strength testing, there is no pronator drift and the strength is normal in arms and legs distally and proximally. Deep tendon reflexes are symmetric, hypoactive and plantars downgoing bilaterally. Sensory to touch is equal with no neglect on double simultaneous stimulation. Cerebellar function showed no ataxia for [id number] testing. No dysdiadochokinesia. No ataxia for [id number] testing on either side. Tone and bulk of muscles normal. Gait deferred.. On general examination, there is no carotid bruit or murmur, S1-S2 audible. Chest is clear on consultation. Abdomen is soft nontender. No organomegaly, enzo wel sounds present. Peripheral pulses are present. No edema. Results - Laboratory Findings CBC and BMP: 09/21/22 18:37 09/21/22 18:37 Abnormal Lab Findings: Abnormal Labs 09/21/22 09/21/22 09/21/22 18:37 18:37 18:37 WBC 13.8 H Neutrophils # 10.5 H ABG pCO2 ABG pO2 ABG HCO3 ABG Total CO2 ABG O2 Saturation VBG pCO2 VBG HCO3 Chloride 97 L Carbon Dioxide 38 H Creatinine 0.41 L Glucose 106 H Calcium 8.2 L Total Protein 6.2 L Albumin 3.4 L Lipase 14 L Urine Appearance Cloudy H Urine Protein 1+ H Urine Blood Small H Ur Leukocyte Esterase Moderate H Urine RBC 52 H Urine WBC 25 H Ur Squamous Epith Cells 41 H Urine Bacteria Rare H Urine Mucus Many H 09/21/22 09/22/22 20:14 06:15 WBC Neutrophils # ABG pCO2 54 H ABG pO2 56 L* ABG HCO3 34 H ABG Total CO2 36 H ABG O2 Saturation 90.0 L VBG pCO2 72 H* VBG HCO3 37 H Chloride Carbon Dioxide Creatinine Glucose Calcium Total Protein Albumin Lipase Urine Appearance Urine Protein Urine Blood Ur Leukocyte Esterase Urine RBC Urine WBC Ur Squamous Epith Cells Urine Bacteria Urine Mucus Assessment and Plan Assessment: * Seizure disorder, came with breakthrough seizure. * Community-acquired pneumonia, left lower lobe * COPD exacerbation * Tobacco use Plan: * Patient has developed breakthrough seizures. She is under a lot of stress at home with some family and social situations. We will increase Keppra from 500 mg twice a day to 750 mg twice a day. * Other medical management as per IM. * No driving for 6 months, climbing ladders, operating dangerous machinery or unsupervised swimming. * Neurologically, no other workup indicated. Recommend patient follow up with her neurologist in 2-4 weeks after discharge. * Thank you for the consult.
[2022-09-22] MEDS: methylPREDNISolone SOD SUCCI 40 MG/ML 1 ML VIAL IV SCH (21:18)
[2022-09-22] MEDS: QUEtiapine 50 MG TAB PO SCH (21:18)
[2022-09-23] MEDS: HEPARIN SODIUM,PORCINE/PF 5,000 UNIT/0.5 ML SYRINGE SQ SCH ×4 (00:04→23:34)
[2022-09-23] MEDS: guaiFENesin SYRUP 100MG/5ML 200 MG/10 ML CUP PO SCH ×5 (00:04→23:33)
[2022-09-23] MEDS: oxyCODONE-APAP 10-325MG 1 EACH TAB PO PRN ×3 (05:15→18:40)
[2022-09-23] MEDS: CITALOPRAM HYDROBROMIDE 20 MG TAB PO SCH (07:54)
[2022-09-23] MEDS: methylPREDNISolone SOD SUCCI 40 MG/ML 1 ML VIAL IV SCH ×2 (07:55→21:57)
[2022-09-23] MEDS: QUEtiapine 100 MG TAB PO SCH (07:55)
[2022-09-23] MEDS: carvediloL 12.5 MG TAB PO SCH ×2 (07:55→21:58)
[2022-09-23] MEDS: ALBUTEROL HFA INHALER INHALATION SCH ×4 (08:00→19:53)
[2022-09-23] MEDS: SPIRONOLACTONE 25 MG TAB PO SCH (08:07)
[2022-09-23] MEDS: DOXYCYCLINE 100 MG in SODIUM CHLORIDE 0.9% 100 ML IVPB SCH (08:07)
[2022-09-23 08:49] LABS: HCT 39.8 % (37.2-46.3); HGB 12.1 g/dL (12.0-15.0); MCH 26.7 pg (27.0-32.0); MCHC 30.4 g/dL (32.0-37.0); MCV 87.9 fL (80.0-97.0); Mean Platelet Volume 9.5 fL (9.5-12.2); NRBC Per 100 WBC 0 /100 WBCS (0.0-0.0); Platelet Count 309 X 10*3/uL (140-440); RBC 4.53 X 10*6/uL (4.10-5.20); RDW 13.4 % (11.5-14.5); WBC 9.73 X 10*3/uL (4.50-10.00)
[2022-09-23 09:11] LABS: ALT 14 U/L (8-44); AST 6 U/L (13-35); African American GFR (CKD) 133.6 (60.0-200.0); Albumin 3.6 g/dL (3.8-4.9); Albumin/Globulin Ratio 1.33 (1.60-3.17); Alkaline Phosphatase 88 U/L (41-126); Blood Urea Nitrogen 13.3 mg/dL (9.0-27.0); Calcium 9.1 mg/dL (8.7-10.3); Chloride 100 mmol/L (96-109); Globulin 2.7 g/dL (1.6-3.3); Glucose 182 mg/dL (70-110); Non-African American GFR(CKD) 115.3 (60.0-200.0); Potassium 4.7 mmol/L (3.5-5.5); Sodium 144 mmol/L (135-145); Total Bilirubin <0.15 mg/dL (0.30-1.20); Total Protein 6.3 g/dL (6.2-8.2)
--- NOTE | 2022-09-23 12:25 | P.PN ---
Subjective Progress Note Date: 09/23/22 Hospital course: The patient is a very pleasant 47-year-old female with a past medical history of COPD with chronic hypoxic respiratory failure on 2 L nightly home oxygen and CPAP use, seizure disorder, and hypertension. She presented to the emergency department on 09/21/22 secondary to worsening shortness of breath, cough, and chest pain 3 days along with a witnessed breakthrough tonic-clonic seizure. Patient underwent full evaluation in the emergency department. EEG was completed showing normal sinus rhythm at 73 bpm with no noted T-wave or ST abnormalities upon personal review and interpretation. CT had also completed radiology report stating negative for acute intercranial process revealing persistent paranasal this disease most pronounced in the left unchanged from previous CT completed 07/21/22. Labs completed and reviewed. CBC revealing leuk ocytosis with WBC count of 13.8. Blood gas showing significant hypercarbia with pCO2 of 72. BMP revealing hypercarbia with bicarb of 38. Lactic acid normal findings 0.7. CMP showing no significant abnormalities. Initial troponin negative at less than 0.012. Chest x-ray was completed showing a left lower lobe airspace opacities concerning for pneumonia. Patient started on IV antibiotics with doxycycline 100 mg twice a day and admitted under our services at this time. Troponis were trended all negative at less than 0.0123 draws. Urine culture was negative. Physical examination: Patient seen and fully evaluated at bedside. She reports that she again feels "horrible" and reports increased cough and shortness of breath accompanied by generalized body aches and pains. Patient does remain on baseline home oxygen of 2 L and maintaining SpO2 of 95%. Patient has remained afebrile since admission. General: non toxic, no distress, appears at stated age Derm: warm, dry Head: atraumatic, normocephalic, symmetric Eyes: EOMI, no lid lag, anicteric sclera Mouth: no lip lesion, mucus membranes moist Cardiovascular: S1S2 reg, no murmur, positive posterior tibial pulse bilateral, Lungs: Lungs diffuse coarse rhonchi with diffuse expiratory wheezes bilaterally. Abdominal: soft, nontender to palpation, no guarding, no appreciable organomegaly Ext: no gross muscle atrophy, no edema, no contractures Neuro: CN II-XI grossly intact, no focal neuro deficits Psych: Alert, oriented, appropriate affect Assessment and plan of care: Community-acquired pneumonia, left lower lobe Acute on chronic hypoxic and hypercarbic respiratory failure COPD with acute exacerbation secondary to above -Reviewed laboratory findings. CBC revealed resolution of leukocytosis with WBC count decreasing from 13.8 down to 9.73. BMP also revealing improved hypercarbia with bicarb decreasing from 38 down to 31. -Continue IV antibiotic with doxycycline 100 mg twice a day. -Continue Robitussin 200 mg by mouth every 6 hours, Solu-Medrol 40 mg IVP twice daily, albuterol nebulizer treatment 4 times daily and as needed for wheezing/shortness of breath. -Order placed for CPAP nightly as patient reports she has not been using due to increased shortness of breath over the past couple days and cough -Order placed for chest x-ray to be repeated tomorrow morning. -Discussed patient and plan of care with loader helper, Dr. Milligan. -Order placed for repeat CBC and BMP tomorrow morning to follow up in continue close monitoring of WBC count and carbon dioxide levels. Atypical Chest pain, likely secondary to left lower lobe pneumonia -Cardiology was consulted, reviewed consult note. Cardiology states chest pain likely secondary to pericarditis recommending echocardiogram. -Echocardiogram was completed 09/22/21, continue to await results at this time. Breakthrough seizure -Neurology following, discussed plan of care.. Neurologist recommending increasing Keppra to 750 mg twice daily and stating no further inpatient testing necessary at this time. -Maintain seizure precautions. Hypomagnesemia, resolved. -Reviewed morning labs. Magnesium increased to 2.0 after replacement from previous 1.6. CODE STATUS: Full Code DVT prophylaxis with heparin Discussed with: Patient, loader helper, and gig tender Anticipated discharge time: Likely another 24-[address]: Home Ceasar Santos NP rendered care for this patient independently, reviewed the findings and plan as documented in the note above. I did not physically speak with or examine the patient on this date. Objective - Vital Signs Vital signs: Vital Signs Temp 97.7 F 09/23/22 07:00 Pulse 66 09/23/22 07:00 Resp 16 09/23/22 07:00 BP 141/84 09/23/22 07:00 Pulse Ox 95 09/23/22 07:00 FiO2 Intake & Output 09/22/22 09/23/22 09/23/22 18:59 06:59 18:59 Intake Total 358 236 Balance 358 236 Intake: Oral 358 236 Other: Voiding Method Toilet # Voids 1 1 - Labs CBC & Chem 7: 09/23/22 05:10 09/23/22 05:10 Labs: Abnormal Lab Results - Last 24 Hours (Table) 09/23/22 09/23/22 Range/Units 05:10 05:10 MCH 26.7 L (27.0-32.0) pg MCHC 30.4 L (32.0-37.0) g/dL Carbon Dioxide 31.0 H (20.0-27.5) mmol/L Creatinine 0.5 L (0.6-1.5) mg/dL BUN/Creatinine Ratio 26.60 H (12.00-20.00) Ratio Glucose 182 H (70-110) mg/dL Total Bilirubin <0.15 L (0.30-1.20) mg/dL AST 6 L (13-35) U/L Albumin 3.6 L (3.8-4.9) g/dL Albumin/Globulin Ratio 1.33 L (1.60-3.17) g/dL Microbiology - Last 24 Hours (Table) 09/21/22 18:37 Urine Culture - Preliminary Urine,Voided
--- NOTE | 2022-09-23 13:15 | P.CNPUL ---
History of Present Illness Consult date: 09/23/22 Reason for consult: pneumonia History of present illness: 47-year-old female patient was hospitalized for breakthrough seizures. The patient is known to have seizures disorder. I was estimated at the patient for a recurrent left lower lobe pneumonia. The patient is known to be. She has advanced oxygen-dependent COPD. She hasn't has less in the past for left lung pneumonia which was treated effectively and the patient was stabilized and pneumonia recovered. During this current admission, the patient comes in with breakthrough seizure that occurred at home. The patient family stated that the patient has 4 seizures prior to her arrival to the emergency department. The patient arrived to the ED and she was not confused. She had a productive cough also that was going on for several days prior to admission. Chest x-ray showed a left lower lobe consolidation and based on that the patient was started on antibiotics and the patient is currently on doxycycline. The CAT scan of the brain that was done at the time of admission showed no acute cranial process. The patient has abdominal discomfort of 9.7 which dropped from 13.8. The patient also had a hemoglobin of 12.3 with a rate of count of 253. Blood. It was done yesterday showed a pH of 7.41 with a pCO2 of 54 and pO2 of 56 and this was on FiO2 of 28%. BUN is at 9 with a creatinine of 0.4 and sodium levels of 138. UA was abnormal. Influenza screen, Covid 19 screen and RSV screen were all negative. UA showed 6 RBCs, 25 WBCs and rare bacteria. The patient is cur rently on 3 L of oxygen nasal cannula with a pulse ox of 95-97%. She is afebrile. Breathing is nonlabored. Her lactic acid level is down to 0.7. Troponins were negative. Chest x-ray showed a left lower lobe consolidation. Neurology evaluated the patient and patient is back on Keppra 750 mg by mouth twice a day. Patient is on albuterol HFA and IV Solu-Medrol. Review of Systems Constitutional: Reports daytime sleepiness, Reports fatigue, Reports poor appetite, Reports weight loss Eyes: denies as per HPI, denies blurred vision, denies bulging eye, denies decreased vision, denies diplopia, denies discharge, denies dry eye, denies irritation, denies itching, denies pain, denies photophobia, denies loss of peripheral vision, denies loss of vision, denies tunnel vision/blind spots Ears: deny: decreased hearing, ear discharge, earache, tinnitus Ears, nose, mouth and throat: Reports as per HPI Breasts: absent: as per HPI, change in shape, gynecomastia, masses, nipple discharge, pain, skin changes, swelling Cardiovascular: Reports decreased exercise tolerance, Reports dyspnea on exertion Respiratory: Reports cough, Reports dyspnea, Reports home oxygen, Reports wheezi ng Gastrointestinal: Reports as per HPI Genitourinary: Reports as per HPI Menstruation: Reports as per HPI Musculoskeletal: Reports as per HPI Musculoskeletal: absent: ankle pain, ankle stiffness, ankle swelling Integumentary: Reports as per HPI Neurological: Reports no mental status change, no focal neurological deficits, breakthrough seizures prior to her coming into the hospital. 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 IBS, cellulitis of the chin, CVA about 1 year ago(no residual) History of Any Multi-Drug Resistant Organisms: MRSA Date of last positivie culture/infection: 07/2016 MDRO Source:: [facility] Past Surgical History: Appendectomy, Section, Cholecystectomy, Hysterectomy, Tubal Ligation Additional Past Surgical History / Comment(s): oral surgery . Pancreas biopsy May 2015. Past Anesthesia/Blood Transfusion Reactions: No Reported Reaction Past Psychological History: ADD/ADHD, Anxiety, Bipolar, Depression Additional Psychological History / Comment(s): Pt resides with her spouse and other family members. Pt states borderline personality disorder diagnosed around 2010. She has a cane and walker but does not normally use them. She does not drive, her spouse drives. Smoking Status: Former smoker Past Alcohol Use History: None Reported Additional Past Alcohol Use History / Comment(s): Pt started smoking in 1983 and was a 3 ppd smoker but about 6 months ago cut down to 2 cigarettes a day. Past Drug Use History: Marijuana Additional Drug Use History / Comment(s): Says she occasionally has edible marijuana- a couple times within the last year. - Past Family History Father History Unknown: Yes Family Medical History: No Reported History Additional Family Medical History / Comment(s): Pt adopted Mother History Unknown: Yes Additional Family Medical History / Comment(s): Pt adopted Medications and Allergies Home Medications Medication Instructions Recorded Confirmed Type Spironolactone [Aldactone] 25 mg PO DAILY 02/05/17 09/21/22 History Citalopram Hydrobromide [CeleXA] 40 mg PO DAILY 06/12/19 09/21/22 History Dicyclomine [Bentyl] 10 mg PO QID PRN 05/28/20 09/21/22 History carvediloL [Coreg] 25 mg PO BID 03/26/21 09/21/22 History oxyCODONE-APAP 10-325MG [Percocet 1 tab PO TID PRN 03/16/22 09/21/22 History 10-325 mg] Naloxone HCl [Narcan] 4 mg NASAL ONCE PRN 05/29/22 09/21/22 History QUEtiapine [SEROquel] 100 mg PO DAILY 07/21/22 09/21/22 History QUEtiapine [SEROquel] 150 mg PO HS 07/21/22 09/21/22 History levETIRAcetam [Keppra] 500 mg PO BID 07/21/22 09/21/22 History Allergies Allergy/AdvReac Type Severity Reaction Status Date / Time adhesive Allergy Rash/Hives Verified 09/21/22 18:53 amoxicillin Allergy Anaphylaxis Verified 09/21/22 18:53 azithromycin [From Zithromax] Allergy Anaphylaxis Verified 09/21/22 18:53 cephalexin monohydrate Allergy Anaphylaxis Verified 09/21/22 18:53 [From Keflex] ciprofloxacin Allergy Anaphylaxis Verified 09/21/22 18:53 clindamycin Allergy Anaphylaxis Verified 09/21/22 18:53 Iodinated Contrast Media Allergy Anaphylaxis Verified 09/21/22 18:53 [Iodinated Contrast- Oral and IV Dye] levofloxacin [From Levaquin] Allergy Rash/Hives Verified 09/21/22 18:53 naproxen Allergy Anaphylaxis Verified 09/21/22 18:53 NSAIDS (Non-Steroidal Allergy Rash/Hives Verified 09/21/22 18:53 Anti-Inflamma shellfish derived Allergy Anaphylaxis Verified 09/21/22 18:53 Sulfa (Sulfonamide Allergy Anaphylaxis Verified 09/21/22 18:53 Antibiotics) sulfamethoxazole Allergy Anaphylaxis Verified 09/21/22 18:53 [From Bactrim] tramadol Allergy Unknown Verified 09/21/22 18:53 trimethoprim [From Bactrim] Allergy Anaphylaxis Verified 09/21/22 18:53 Physical Exam Vitals: Vital Signs Temp Pulse Resp BP BP Pulse Ox 09/23/22 07:00 97.7 F 66 16 141/84 95 09/23/22 02:00 98.1 F 71 15 111/52 97 09/22/22 18:59 98.1 F 82 18 143/74 92 L 09/22/22 15:00 98.2 F 70 17 168/88 93 L Intake and Output 09/22/22 09/23/22 09/23/22 22:59 06:59 14:59 Intake Total 240 236 Balance 240 236 Intake: Oral 240 236 Other: Voiding Method Toilet Toilet # Voids 2 1 GENERAL: The patient is alert and oriented x3, not in any acute distress. Well developed, well nourished. The patient is currently on 3 L O2 nasal cannula. She is awake and alert and following answers and commands without any major difficulties. Head exam was generally normal. There was no scleral icterus or corneal arcus. Mucous membranes were moist. HEENT: Pupils are round and equally reacting to light. EOMI. No scleral icterus. No conjunctival pallor. Normocephalic, atraumatic. No pharyngeal erythema. No thyromegaly. CARDIOVASCULAR: S1 and S2 present. No murmurs, rubs, or gallops. PULMONARY: Chest showed shows marked improvement in the bronchospasm wheezing and that is marked improvement in air entry bilaterally, noted the breath sounds are diminished bilaterally ABDOMEN: Soft, nontender, nondistended, normoactive bowel sounds. No palpable organomegaly. MUSCULOSKELETAL: No joint swelling or deformity. EXTREMITIES: No cyanosis, clubbing, or pedal edema. NEUROLOGICAL: Gross neurological examination did not reveal any focal deficits. SKIN: No rashes. no petechiae. Results - Laboratory Findings CBC and BMP: 09/23/22 05:10 09/23/22 05:10 ABG ABG pH 7.41 (7.35-7.45) 09/22/22 06:15 ABG pCO2 54 mmHg (35-45) H 09/22/22 06:15 ABG pO2 56 mmHg (83-108) L* 09/22/22 06:15 ABG O2 Saturation 90.0 % (94-97) L 09/22/22 06:15 Abnormal lab findings: Abnormal Labs 09/21/22 09/21/22 09/21/22 18:37 18:37 18:37 WBC 13.8 H MCH MCHC Neutrophils # 10.5 H ABG pCO2 ABG pO2 ABG HCO3 ABG Total CO2 ABG O2 Saturation VBG pCO2 VBG HCO3 Chloride 97 L Carbon Dioxide 38 H Creatinine 0.41 L BUN/Creatinine Ratio Glucose 106 H Calcium 8.2 L Total Bilirubin AST Total Protein 6.2 L Albumin 3.4 L Albumin/Globulin Ratio Lipase 14 L Urine Appearance Cloudy H Urine Protein 1+ H Urine Blood Small H Ur Leukocyte Esterase Moderate H Urine RBC 52 H Urine WBC 25 H Ur Squamous Epith Cells 41 H Urine Bacteria Rare H Urine Mucus Many H 09/21/22 09/22/22 09/23/22 20:14 06:15 05:10 WBC MCH 26.7 L MCHC 30.4 L Neutrophils # ABG pCO2 54 H ABG pO2 56 L* ABG HCO3 34 H ABG Total CO2 36 H ABG O2 Saturation 90.0 L VBG pCO2 72 H* VBG HCO3 37 H Chloride Carbon Dioxide Creatinine BUN/Creatinine Ratio Glucose Calcium Total Bilirubin AST Total Protein Albumin Albumin/Globulin Ratio Lipase Urine Appearance Urine Protein Urine Blood Ur Leukocyte Esterase Urine RBC Urine WBC Ur Squamous Epith Cells Urine Bacteria Urine Mucus 09/23/22 05:10 WBC MCH MCHC Neutrophils # ABG pCO2 ABG pO2 ABG HCO3 ABG Total CO2 ABG O2 Saturation VBG pCO2 VBG HCO3 Chloride Carbon Dioxide 31.0 H Creatinine 0.5 L BUN/Creatinine Ratio 26.60 H Glucose 182 H Calcium Total Bilirubin <0.15 L AST 6 L Total Protein Albumin 3.6 L Albumin/Globulin Ratio 1.33 L Lipase Urine Appearance Urine Protein Urine Blood Ur Leukocyte Esterase Urine RBC Urine WBC Ur Squamous Epith Cells Urine Bacteria Urine Mucus - Diagnostic Findings Chest x-ray: image reviewed Assessment and Plan Plan: Left lower lobe pneumonia, consider aspiration. This pneumonia occurred around the time when the patient was having breakthrough seizures. As such, is stephany sonable to consider the possibility of a aspiration. Nevertheless, the patient has had previous episodes of left lower lobe pneumonia/lingular pneumonia from which she has recovered. In fact, the patient was in the hospital back in July 2022, treated for lingering pneumonia and the patient's chest x-ray was done on 07/21/2022 was already showing resolution of the lingular pulmonary infiltrates/left lower lobe pulmonary infiltrate Seizure disorder with breakthrough seizures, currently on Keppra Chronic advanced COPD, oxygen dependent at 2 L on outpatient basis with secondary exacerbation History of chronic smoking and the patient was smoking up to 3-4 packs of cigarettes a day History of recent left lower lobe pneumonia/lingular pneumonia, recovered Polysubstance abuse including marijuana Rheumatoid arthritis History of seizure disorders History of CVA Fibromyalgia History of migraines Chronic kidney stones Plan We'll cover the patient on IV Invanz, which provide the patient better coverage for aspiration pneumonia The recurrent infiltrates/pneumonia as occurring in the left lung is concerning. A CAT scan of the chest will be needed to rule out any anatomic obstruction or a postobstructive pneumonia in the same region especially with her history of smoking. Based on that, I would order a CAT scan of the chest Continue doxycycline Continue bronchodilators Continue IV Solu-Medrol Treatment of breakthrough seizures through neurology We'll follow
[2022-09-23] MEDS: ERTAPENEM 1 GM in SODIUM CHLORIDE 0.9% 50 ML IVPB SCH (15:19)
--- NOTE | 2022-09-23 15:29 | CT ---
Exam: CT Chest without contrast. Date: 09/23/2022. Comparison: Chest x-ray on 09/21/2022. History: Rule out mass. Technique: CT examination of the chest was performed without contrast. Coronal and sagittal reformats were performed. CT dose lowering techniques were used, to include: automated exposure control, adjus tment for patient size, and/or use of iterative reconstruction. FINDINGS: Mediastinum and Connie: There is no axillary, mediastinal or hilar lymphadenopathy. Pleural and Pericardial spaces: There is a trace left pleural effusion. Upper Abdomen: Gallbladder surgically absent. The remainder the visualized upper abdomen appears unre markable. Cardiovascular: The thoracic aorta is normal in size. Lung Parenchyma and Airways: There is some patchy parenchymal changes and areas of nodularity within the left lower lobe which are most likely related to an inflammatory or infectious process. There is partial atelectasis of the left upper lobe along the mediastinal border which is favored to represent atelectasis. A definitive obstructing mass is not clearly identified. Right lung otherwise appears c lear. Bones: No fracture or aggressive osseous lesion. IMPRESSION: 1. Multiple parenchymal areas of nodularity within the left lower lobe are suspicious for an inflamma tory or infectious process. 2. Area of atelectasis within the left upper lobe along the mediastinal border without a definitive o bstructing mass clearly identified. An underlying lesion is difficult to entirely exclude. This would be better evaluated with contrast. 3. Trace left pleural effusion. Recommendation: 3 month follow-up examination is recommended to reassess the atelectasis and for reso lution of the suspected inflammatory or infectious process.
--- NOTE | 2022-09-23 17:13 | CA ---
Transthoracic Echo Report Name: Yolie Yeboah Age: 47 Gender: F : 1975 Exam Date: 09/22/2022 10:58 Exam Location: [facility] Ht (in): 60 Wt (lb): 189 Ordering Physician: Selam Waterman Attending/Referring Phys: [id number], [employer] Worker Salina Amanda RDCS Procedure CPT: Indications: LVF Cardiac Hx: Technical Quality: Good Contrast 1: Total Dose (mL): Contrast 2: Total Dose (mL): MEASUREMENTS (Male / Female) Normal Values 2D ECHO LV Diastolic Diameter PLAX 4.3 cm 4.2 - 5.9 / 3.9 - 5.3 cm LV Systolic Diameter PLAX 2.5 cm IVS Diastolic Thickness 1.2 cm 0.6 - 1.0 / 0.6 - 0.9 cm LVPW Diastolic Thickness 1.2 cm 0.6 - 1.0 / 0.6 - 0.9 cm LV Relative Wall Thickness 0.6 RV Internal Dim ED PLAX 2.8 cm LA Systolic Diameter LX 3.7 cm 3.0 - 4.0 / 2.7 - 3.8 cm LV Diastolic Volume MOD 4C 95.6 cm??? LV Systolic Volume MOD 4C 50.6 cm??? LV Ejection Fraction MOD 4C 47.1 % LV Diastolic Length 4C 8.5 cm LV Systolic Length 4C 7.1 cm LV Diastolic Volume MOD 2C 57.9 cm??? LV Systolic Volume MOD 2C 25.9 cm??? LV Ejection Fraction MOD 2C 55.2 % LV Diastolic Length 2C 8.0 cm LV Systolic Length 2C 6.3 cm LA Volume 39.9 cm??? 18 - 58 / 22 - 52 cm??? M-MODE Aortic Root Diameter MM 2.9 cm MV E Point Septal Separation 0.6 cm AV Cusp Separation MM 1.9 cm DOPPLER AV Peak Velocity 144.8 cm/s AV Peak Gradient 8.4 mmHg MV Area PHT 3.4 cm??? Mitral E Point Velocity 90.1 cm/s Mitral A Point Velocity 100.4 cm/s Mitral E to A Ratio 0.9 MV Deceleration Time 225.0 ms MV E' Velocity 7.8 cm/s Mitral E to MV E' Ratio 11.6 TR Peak Velocity 244.9 cm/s TR Peak Gradient 24.0 mmHg Right Ventricular Systolic Press 29.0 mmHg FINDINGS Left Ventricle Left ventricular ejection fraction is estimated at 55-60 %. Normal left ventricular systolic function with no obvious regional wall motion abnormalities. Mild concentric left ventricular hypertrophy. Right Ventricle Normal right ventricular size and function. Right ventricular systolic pressure within normal limits. Right Atrium Normal right atrial size. Left Atrium Normal left atrial size. Mitral Valve Structurally normal mitral valve. No mitral stenosis, regurgitation or prolapse. Aortic Valve Trileaflet aortic valve. No aortic valve stenosis or regurgitation. Tricuspid Valve Structurally normal tricuspid valve. Trace to mild tricuspid regurgitation. Pulmonic Valve Pulmonic valve not well visualized. Pericardium Normal pericardium. No pericardial effusion. Aorta Normal size aortic root and proximal ascending aorta. CONCLUSIONS Normal LV size and systolic function Previewed by: Dr. Jonathan Payton MD (Electronically Signed) Final Date: 23 September 2022 17:12
[2022-09-23] MEDS: QUEtiapine 50 MG TAB PO SCH (21:58)
[2022-09-24] MEDS: guaiFENesin SYRUP 100MG/5ML 200 MG/10 ML CUP PO SCH ×4 (07:04→23:08)
--- NOTE | 2022-09-24 07:15 | XR ---
EXAMINATION TYPE: XR chest 1V portable DATE OF EXAM: 09/24/2022 COMPARISON: 09/21/2022 HISTORY: Cough TECHNIQUE: Single frontal view of the chest is obtained. FINDINGS: There is improved aeration in the left lower lung field with persistent subsegmental conso lidation. No effusion or pneumothorax. Limited inspiration. Prominent right hilum likely reflects pul monary artery. No overt failure. IMPRESSION: 1. Interval improved appearance of the left chest with resolving infiltrate. 2. Prominence of the bilateral hilum could reflect pulmonary artery. When the patient's condition sta ndard PA and lateral views of the chest would be recommended.
[2022-09-24] MEDS: ALBUTEROL HFA INHALER INHALATION SCH ×4 (08:02→20:15)
[2022-09-24] MEDS: HEPARIN SODIUM,PORCINE/PF 5,000 UNIT/0.5 ML SYRINGE SQ SCH ×3 (09:13→23:08)
[2022-09-24] MEDS: CITALOPRAM HYDROBROMIDE 20 MG TAB PO SCH (09:14)
[2022-09-24] MEDS: carvediloL 12.5 MG TAB PO SCH ×2 (09:14→19:57)
[2022-09-24] MEDS: methylPREDNISolone SOD SUCCI 40 MG/ML 1 ML VIAL IV SCH ×2 (09:15→19:57)
[2022-09-24] MEDS: QUEtiapine 100 MG TAB PO SCH (09:16)
[2022-09-24] MEDS: oxyCODONE-APAP 10-325MG 1 EACH TAB PO PRN ×2 (09:16→18:15)
[2022-09-24] MEDS: SPIRONOLACTONE 25 MG TAB PO SCH (09:16)
[2022-09-24] MEDS: ERTAPENEM 1 GM in SODIUM CHLORIDE 0.9% 50 ML IVPB SCH (10:43)
--- NOTE | 2022-09-24 13:29 | P.PN ---
Subjective Progress Note Date: 09/24/22 47-year-old female patient was hospitalized for breakthrough seizures. The patient is known to have seizures disorder. I was estimated at the patient for a recurrent left lower lobe pneumonia. The patient is known to be. She has advanced oxygen-dependent COPD. She hasn't has less in the past for left lung pneumonia which was treated effectively and the patient was stabilized and pneumonia recovered. During this current admission, the patient comes in with breakthrough seizure that occurred at home. The patient family stated that the patient has 4 seizures prior to her arrival to the emergency department. The patient arrived to the ED and she was not confused. She had a productive cough also that was going on for several days prior to admission. Chest x-ray showed a left lower lobe consolidation and based on that the patient was started on antibiotics and the patient is currently on doxycycline. The CAT scan of the brain that was done at the time of admission showed no acute cranial process. The patient has abdominal discomfort of 9.7 which dropped from 13.8. The patient also had a hemoglobin of 12.3 with a rate of count of 253. Blood. It was done yesterday showed a pH of 7.41 with a pCO2 of 54 and pO2 of 56 and this was on FiO2 of 28%. BUN is at 9 with a creatinine of 0.4 and sodium levels of 138. UA was abnormal. Influenza screen, Covid 19 screen and RSV screen were all negative. UA showed 6 RBCs, 25 WBCs and rare bacteria. The patient is currently on 3 L of oxygen nasal cannula with a pulse ox of 95-97%. She is afebrile. Breathing is nonlabored. Her lactic acid level is down to 0.7. Troponins were negative. Chest x-ray showed a left lower lobe consolidation. Neurology evaluated the patient and patient is back on Keppra 750 mg by mouth twice a day. Patient is on albuterol HFA and IV Solu-Medrol. On today's evaluation of 09/24/2022, the patient is feeling well. No specific complaints. Less potent of breath and breathing easier on today's evaluation. Noted the patient had a recurrent left lower lobe pneumonia. For that reason, CAT scan of the chest was done that showed inflammatory changes in the left lower lobe. The same time, there was left upper lobe atelectasis with a possibility of endobronchial mucous and or malignancy/lesion being within the differential diagnosis. Right lung was essentially clear. The patient is currently on IV Invanz. She is tolerating her diet could no nausea or vomiting. No fever or chills. No side effects with antibiotics. She remains on Keppra. No seizure activity has been noted. Objective - Vital Signs Vital signs: Vital Signs Temp 98.0 F 09/24/22 10:30 Pulse 69 09/24/22 10:30 Resp 16 09/24/22 10:30 BP 163/88 09/24/22 10:30 Pulse Ox 96 09/24/22 10:30 FiO2 Intake & Output 09/23/22 09/24/22 09/24/22 18:59 06:59 18:59 Intake Total 236 118 Balance 236 118 Intake: Oral 236 118 Other: # Voids 2 2 1 # Bowel Movements 1 - Exam GENERAL: The patient is alert and oriented x3, not in any acute distress. Well developed, well nourished. The patient is currently on 3 L O2 nasal cannula. She is awake and alert and following answers and commands without any major difficulties. Head exam was generally normal. There was no scleral icterus or corneal arcus. Mucous membranes were moist. HEENT: Pupils are round and equally reacting to light. EOMI. No scleral icterus. No conjunctival pallor. Normocephalic, atraumatic. No pharyngeal erythema. No thyromegaly. CARDIOVASCULAR: S1 and S2 present. No murmurs, rubs, or gallops. PULMONARY: Chest showed shows marked improvement in the bronchospasm wheezing and that is marked improvement in air entry bilaterally, noted the breath sounds are diminished bilaterally ABDOMEN: Soft, nontender, nondistended, normoactive bowel sounds. No palpable organomegaly. MUSCULOSKELETAL: No joint swelling or deformity. EXTREMITIES: No cyanosis, clubbing, or pedal edema. NEUROLOGICAL: Gross neurological examination did not reveal any focal deficits. SKIN: No rashes. no petechiae. - Labs CBC & Chem 7: 09/23/22 05:10 09/23/22 05:10 Labs: Microbiology - Last 24 Hours (Table) 09/21/22 18:37 Urine Culture - Final Urine,Voided Assessment and Plan Plan: Left lower lobe pneumonia, consider aspiration. This pneumonia occurred around the time when the patient was having breakthrough seizures. As such, is reasonable to consider the possibility of a aspiration. Nevertheless, the patient has had previous episodes of left lower lobe pneumonia/lingular pneumo antelmo from which she has recovered. In fact, the patient was in the hospital back in July 2022, treated for lingering pneumonia and the patient's chest x-ray was done on 07/21/2022 was already showing resolution of the lingular pulmonary infiltrates/left lower lobe pulmonary infiltrate Skeletal chest was reviewed and the patient has a left upper lobe atelectasis and left lower lobe inflammatory changes consistent with pneumonia. Seizure disorder with breakthrough seizures, currently on Keppra Chronic advanced COPD, oxygen dependent at 2 L on outpatient basis with secondary exacerbation History of chronic smoking and the patient was smoking up to 3-4 packs of cigarettes a day History of recent left lower lobe pneumonia/lingular pneumonia, recovered Polysubstance abuse including marijuana Rheumatoid arthritis History of seizure disorders History of CVA Fibromyalgia History of migraines Chronic kidney stones Plan Continue IV Invanz, which provide the patient better coverage for aspiration pneumonia The Continue doxyc atelectasis will be monitored and the patient may need a bronchoscopy if the abnormality remains unchanged and are persistent. Continue IV Invanz for now Continue bronchodilators Continue IV Solu-Medrol Treatment of breakthrough seizures through neurology We'll follow
--- NOTE | 2022-09-24 16:31 | P.PN ---
Subjective Progress Note Date: 09/24/22 Patient was seen for a follow-up. Patient states her breathing is getting better. She denies any breakthrough seizures. She is tolerating higher dose of Keppra very well. No side effects. Objective - Vital Signs Vital signs: Vital Signs Temp 98.2 F 09/24/22 14:00 Pulse 70 09/24/22 14:00 Resp 16 09/24/22 14:00 BP 151/95 09/24/22 14:00 Pulse Ox 93 L 09/24/22 14:00 FiO2 Intake & Output 09/23/22 09/24/22 09/24/22 18:59 06:59 18:59 Intake Total 236 358 Balance 236 358 Intake: Oral 236 358 Other: # Voids 2 2 1 # Bowel Movements 1 - Exam Mental status, speech and language functions are normal. Examination nonfocal. - Labs CBC & Chem 7: 09/23/22 05:10 09/23/22 05:10 Assessment and Plan Assessment: * Seizure disorder, came with breakthrough seizure. * Community-acquired pneumonia, left lower lobe * COPD exacerbation * Tobacco use * Multiple social/family stressors Plan: * Patient has developed breakthrough seizures. She is under a lot of stress at home with some family and social situations. We will increase Keppra from 500 mg twice a day to 750 mg twice a day. Patient is tolerating higher dose of Keppra well, with no side effects. * Other medical management as per IM and pulmonary medicine. * No driving for 6 months, climbing ladders, operating dangerous machinery or unsupervised swimming. * Neurologically clear. Recommend patient follow up with her neurologist in 2-4 weeks after discharge. * We will sign off. Please reconsult neurology if any other concerns.
--- NOTE | 2022-09-24 17:43 | P.PN ---
Subjective Progress Note Date: 09/24/22 Hospital course: The patient is a very pleasant 47-year-old female with a past medical history of COPD with chronic hypoxic respiratory failure on 2 L nightly home oxygen and CPAP use, seizure disorder, and hypertension. She presented to the emergency department on 09/21/22 secondary to worsening shortness of breath, cough, and chest pain 3 days along with a witnessed breakthrough tonic-clonic seizure. Patient underwent full evaluation in the emergency department. EKG was completed showing normal sinus rhythm at 73 bpm with no noted T-wave or ST abnormalities upon personal review and interpretation. CT had also completed radiology report stating negative for acute intercranial process revealing persistent paranasal this disease most pronounced in the left unchanged from previous CT completed 07/21/22. Labs completed and reviewed. CBC revealing leuk ocytosis with WBC count of 13.8. Blood gas showing significant hypercarbia with pCO2 of 72. BMP revealing hypercarbia with bicarb of 38. Lactic acid normal findings 0.7. CMP showing no significant abnormalities. Initial troponin negative at less than 0.012. Chest x-ray was completed showing a left lower lobe airspace opacities concerning for pneumonia. Patient started on IV antibiotics with doxycycline 100 mg twice a day and admitted under our services at this time. Troponis were trended all negative at less than 0.0123 draws. Urine culture was negative. Physical examination: Patient seen and fully evaluated at bedside. She reports that she is feeling slightly better but still remains very weak and tired. Patient remains on 2 L O2 via nasal cannula with SpO2 of 92%. Patient remains afebrile and has had no further episodes of breakthrough seizures since admission. Patient has been hypertensive with morning blood pressure of 182/101. In addition to Coreg 25 mg twice daily patient being started on Norvasc 5 mg daily. General: non toxic, no distress, appears at stated age Derm: warm, dry Head: atraumatic, normocephalic, symmetric Eyes: EOMI, no lid lag, anicteric sclera Mouth: no lip lesion, mucus membranes moist Cardiovascular: S1S2 reg, no murmur, positive posterior tibial pulse bilateral, Lungs: Lungs diffuse coarse rhonchi with diffuse expiratory wheezes bilaterally. Abdominal: soft, nontender to palpation, no guarding, no appreciable organomegaly Ext: no gross muscle atrophy, no edema, no contractures Neuro: CN II-XI grossly intact, no focal neuro deficits Psych: Alert, oriented, appropriate affect Assessment and plan of care: Community-acquired pneumonia, left lower lobe Acute on chronic hypoxic and hypercarbic respiratory failure COPD with acute exacerbation secondary to above -CT chest was ordered by spray dyer 09/23/22 and radiology reports reviewed. Radiology report stating multiple parenchymal areas of nodularity within the left lower lobe suspicious for an inflammatory or infectious process, area of atelectasis within the left upper lobe along mediastinal border without a definitive obstructing mass clearly identified however underlying lesion is difficult to entirely exclude Kait and trace left pleural effusion. Radiologist recommending three-month follow-up examination to reassess atelectasis and re solution of suspected inflammatory or infectious process. -Chest x-ray was repeated this morning and radiology report reviewed showing interval improvement in appearance of left chest with resolving infiltrate and prominence of the bilateral hilum could reflect pulmonary artery -Continue IV antibiotic Invanz -Continue Robitussin 200 mg by mouth every 6 hours, Solu-Medrol 40 mg IVP twice daily, albuterol nebulizer treatment 4 times daily and as needed for wheezing/shortness of breath. -Continue CPAP nightly -Discussed patient and plan of care with spray dyer, Dr. Milligan. States patient may need a bronchoscopy if left lower lobe atelectasis/infiltrate remains unchanged or persistent -Order placed for repeat CBC and BMP tomorrow morning to follow up in continue close monitoring of WBC count and carbon dioxide levels. Breakthrough seizure -Neurology following, discussed plan of care.. Neurologist stated patient cleared from a neurological perspective at this time at this time recommending continuing with Keppra to 750 mg twice daily and stating no further inpatient testing necessary. -Maintain seizure precautions and advised patient of [place] state law stating no driving for 6 months until seizure free. Uncontrolled hypertension -In addition to daily Coreg 25 mg twice a day, patient also being started on amlodipine 5 mg daily at this time. Atypical Chest pain, likely secondary to left lower lobe pneumonia -Cardiology was consulted, reviewed consult note. Cardiology states chest pain likely secondary to pericarditis recommending echocardiogram. -Echocardiogram was completed 09/22/21, continue to await results at this time. Hypomagnesemia, resolved. -Reviewed morning labs. Magnesium increased to 2.0 after replacement from previous 1.6. Abnormal CT findings - Radiologist recommending three-month follow-up CT examination to reassess atelectasis and resolution of suspected inflammatory or infectious process. CODE STATUS: Full Code DVT prophylaxis with heparin Discussed with: Patient, spray dyer, and butcher assistant Anticipated discharge time: Clinical course to determine Anticipated discharge place: Home I reviewed the documentation as provided by the LIZETTE above, who is the original author of this note. I agree with the documented assessment and plan, with the following changes: none Objective - Vital Signs Vital signs: Vital Signs Temp 97.6 F 09/24/22 02:20 Pulse 68 09/24/22 02:20 Resp 17 09/24/22 02:20 BP 166/91 09/24/22 02:20 Pulse Ox 98 09/24/22 02:20 FiO2 Intake & Output 09/23/22 09/24/22 09/24/22 18:59 06:59 18:59 Intake Total 236 Balance 236 Intake: Oral 236 Other: # Voids 2 2 - Labs CBC & Chem 7: 09/23/22 05:10 09/23/22 05:10 Labs: Microbiology - Last 24 Hours (Table) 09/21/22 18:37 Urine Culture - Final Urine,Voided
[2022-09-24] MEDS: amLODIPine 5 MG TAB PO SCH (18:12)
[2022-09-24] MEDS: QUEtiapine 50 MG TAB PO SCH (19:57)
[2022-09-25] MEDS: guaiFENesin SYRUP 100MG/5ML 200 MG/10 ML CUP PO SCH ×4 (06:26→22:37)
[2022-09-25] MEDS: ALBUTEROL HFA INHALER INHALATION SCH ×4 (07:25→21:11)
[2022-09-25] MEDS: HEPARIN SODIUM,PORCINE/PF 5,000 UNIT/0.5 ML SYRINGE SQ SCH ×3 (08:17→22:37)
[2022-09-25] MEDS: QUEtiapine 100 MG TAB PO SCH (08:17)
[2022-09-25] MEDS: SPIRONOLACTONE 25 MG TAB PO SCH (08:18)
[2022-09-25] MEDS: amLODIPine 5 MG TAB PO SCH (08:18)
[2022-09-25] MEDS: methylPREDNISolone SOD SUCCI 40 MG/ML 1 ML VIAL IV SCH ×2 (08:18→20:58)
[2022-09-25] MEDS: CITALOPRAM HYDROBROMIDE 20 MG TAB PO SCH (08:18)
[2022-09-25] MEDS: carvediloL 12.5 MG TAB PO SCH ×2 (08:18→20:58)
[2022-09-25] MEDS: ERTAPENEM 1 GM in SODIUM CHLORIDE 0.9% 50 ML IVPB SCH (08:19)
[2022-09-25] MEDS: oxyCODONE-APAP 10-325MG 1 EACH TAB PO PRN (08:30)
[2022-09-25 08:56] LABS: HCT 40.9 % (37.2-46.3); HGB 12.5 g/dL (12.0-15.0); MCH 26.5 pg (27.0-32.0); MCHC 30.6 g/dL (32.0-37.0); MCV 86.8 fL (80.0-97.0); Mean Platelet Volume 9.2 fL (9.5-12.2); NRBC Per 100 WBC 0 /100 WBCS (0.0-0.0); Platelet Count 340 X 10*3/uL (140-440); RBC 4.71 X 10*6/uL (4.10-5.20); RDW 13.2 % (11.5-14.5); WBC 7.86 X 10*3/uL (4.50-10.00)
[2022-09-25 09:28] LABS: Magnesium 1.8 mg/dL (1.5-2.4)
[2022-09-25 09:32] LABS: ALT 27 U/L (8-44); AST 18 U/L (13-35); African American GFR (CKD) 133.6 (60.0-200.0); Albumin 3.7 g/dL (3.8-4.9); Albumin/Globulin Ratio 1.37 (1.60-3.17); Alkaline Phosphatase 87 U/L (41-126); Calcium 9.1 mg/dL (8.7-10.3); Carbon Dioxide 31.9 mmol/L (20.0-27.5); Chloride 96 mmol/L (96-109); Globulin 2.7 g/dL (1.6-3.3); Glucose 161 mg/dL (70-110); Non-African American GFR(CKD) 115.3 (60.0-200.0); Potassium 4.7 mmol/L (3.5-5.5); Sodium 139 mmol/L (135-145); Total Bilirubin <0.15 mg/dL (0.30-1.20); Total Protein 6.4 g/dL (6.2-8.2)
--- NOTE | 2022-09-25 10:20 | P.PN ---
Subjective Progress Note Date: 09/25/22 47-year-old female patient was hospitalized for breakthrough seizures. The patient is known to have seizures disorder. I was estimated at the patient for a recurrent left lower lobe pneumonia. The patient is known to be. She has advanced oxygen-dependent COPD. She hasn't has less in the past for left lung pneumonia which was treated effectively and the patient was stabilized and pneumonia recovered. During this current admission, the patient comes in with breakthrough seizure that occurred at home. The patient family stated that the patient has 4 seizures prior to her arrival to the emergency department. The patient arrived to the ED and she was not confused. She had a productive cough also that was going on for several days prior to admission. Chest x-ray showed a left lower lobe consolidation and based on that the patient was started on antibiotics and the patient is currently on doxycycline. The CAT scan of the brain that was done at the time of admission showed no acute cranial process. The patient has abdominal discomfort of 9.7 which dropped from 13.8. The patient also had a hemoglobin of 12.3 with a rate of count of 253. Blood. It was done yesterday showed a pH of 7.41 with a pCO2 of 54 and pO2 of 56 and this was on FiO2 of 28%. BUN is at 9 with a creatinine of 0.4 and sodium levels of 138. UA was abnormal. Influenza screen, Covid 19 screen and RSV screen were all negative. UA showed 6 RBCs, 25 WBCs and rare bacteria. The patient is currently on 3 L of oxygen nasal cannula with a pulse ox of 95-97%. She is afebrile. Breathing is nonlabored. Her lactic acid level is down to 0.7. Troponins were negative. Chest x-ray showed a left lower lobe consolidation. Neurology evaluated the patient and patient is back on Keppra 750 mg by mouth twice a day. Patient is on albuterol HFA and IV Solu-Medrol. On today's evaluation of 09/24/2022, the patient is feeling well. No specific complaints. Less potent of breath and breathing easier on today's evaluation. Noted the patient had a recurrent left lower lobe pneumonia. For that reason, CAT scan of the chest was done that showed inflammatory changes in the left lower lobe. The same time, there was left upper lobe atelectasis with a possibility of endobronchial mucous and or malignancy/lesion being within the differential diagnosis. Right lung was essentially clear. The patient is currently on IV Invanz. She is tolerating her diet could no nausea or vomiting. No fever or chills. No side effects with antibiotics. She remains on Keppra. No seizure activity has been noted. 09/25/2022, the patient is on 2 L of oxygen by nasal cannula. No seizure activity and the patient remains on IV Invanz. No new complaints for now. The discomfort 7.8 with a hemoglobin of 4.5. Sodium is at 139, BUN is at 14 with a creatinine of 0.5. No other new complaints otherwise for now. The patient's is on 2 L O2 nasal cannula with a pulse ox of 93%. She is afebrile. She is tolerating diet. No nausea or vomiting. No other complaints otherwise for now. Objective - Vital Signs Vital signs: Vital Signs Temp 97.6 F 09/25/22 08:42 Pulse 78 09/25/22 08:42 Resp 19 09/25/22 08:42 BP 157/94 09/25/22 08:42 Pulse Ox 93 L 09/25/22 08:42 FiO2 Intake & Output 09/24/22 09/25/22 09/25/22 18:59 06:59 18:59 Intake Total 476 180 Balance 476 180 Intake: Oral 476 180 Other: Voiding Method Toilet Toilet # Voids 3 2 1 # Bowel Movements 1 - Exam GENERAL: The patient is alert and oriented x3, not in any acute distress. Well developed, well nourished. The patient is currently on 2 L O2 nasal cannula. She is awake and alert and following answers and commands without any major difficulties. Head exam was generally normal. There was no scleral icterus or corneal arcus. Mucous membranes were moist. HEENT: Pupils are round and equally reacting to light. EOMI. No scleral icterus. No conjunctival pallor. Normocephalic, atraumatic. No pharyngeal erythema. No thyromegaly. CARDIOVASCULAR: S1 and S2 present. No murmurs, rubs, or gallops. PULMONARY: Chest showed shows marked improvement in the bronchospasm wheezing and that is marked improvement in air entry bilaterally, noted the breath sounds are diminished bilaterally ABDOMEN: Soft, nontender, nondistended, normoactive bowel sounds. No palpable organomegaly. MUSCULOSKELETAL: No joint swelling or deformity. EXTREMITIES: No cyanosis, clubbing, or pedal edema. NEUROLOGICAL: Gross neurological examination did not reveal any focal deficits. SKIN: No rashes. no petechiae. - Labs CBC & Chem 7: 09/25/22 04:37 09/25/22 04:37 Labs: Abnormal Lab Results - Last 24 Hours (Table) 09/25/22 09/25/22 Range/Units 04:37 04:37 MCH 26.5 L (27.0-32.0) pg MCHC 30.6 L (32.0-37.0) g/dL MPV 9.2 L (9.5-12.2) fL Carbon Dioxide 31.9 H (20.0-27.5) mmol/L Creatinine 0.5 L (0.6-1.5) mg/dL BUN/Creatinine Ratio 28.00 H (12.00-20.00) Ratio Glucose 161 H (70-110) mg/dL Total Bilirubin <0.15 L (0.30-1.20) mg/dL Albumin 3.7 L (3.8-4.9) g/dL Albumin/Globulin Ratio 1.37 L (1.60-3.17) g/dL Assessment and Plan Plan: Left lower lobe pneumonia, consider aspiration. This pneumonia occurred around the time when the patient was having breakthrough seizures. As such, is reasonable to consider the possibility of a aspiration. Nevertheless, the patient has had previous episodes of left lower lobe pneumonia/lingular pneumonia from which she has recovered. In fact, the patient was in the hospital back in July 2022, treated for lingering pneumonia and the patient's chest x-ray was done on 07/21/2022 was already showing resolution of the lingular pulmonary infiltrates/left lower lobe pulmonary infiltrate Skeletal chest was reviewed and the patient has a left upper lobe atelectasis and left lower lobe inflammatory changes consistent with pneumonia. Seizure disorder with breakthrough seizures, currently on Keppra Chronic advanced COPD, oxygen dependent at 2 L on outpatient basis with seconda ry exacerbation History of chronic smoking and the patient was smoking up to 3-4 packs of cigarettes a day History of recent left lower lobe pneumonia/lingular pneumonia, recovered Polysubstance abuse including marijuana Rheumatoid arthritis History of seizure disorders History of CVA Fibromyalgia History of migraines Chronic kidney stones Plan Clinically stable Continue oxygen at 2 L Continue IV Invanz, which provide the patient better coverage for aspiration pneumonia atelectasis will be monitored and the patient may need a bronchoscopy if the abnormality remains unchanged and are persistent. Continue IV Invanz for now Continue bronchodilators Continue IV Solu-Medrol Treatment of breakthrough seizures through neurology We'll follow Repeat chest x-ray in the morning
[2022-09-25] MEDS: oxyCODONE-APAP 10-325MG 1 EACH TAB PO SCH ×4 (13:30→20:57)
--- NOTE | 2022-09-25 16:23 | P.PN ---
Subjective Progress Note Date: 09/25/22 Hospital course: The patient is a very pleasant 47-year-old female with a past medical history of COPD with chronic hypoxic respiratory failure on 2 L nightly home oxygen and CPAP use, seizure disorder, and hypertension. She presented to the emergency department on 09/21/22 secondary to worsening shortness of breath, cough, and chest pain 3 days along with a witnessed breakthrough tonic-clonic seizure. Patient underwent full evaluation in the emergency department. EEG was completed showing normal sinus rhythm at 73 bpm with no noted T-wave or ST abnormalities upon personal review and interpretation. CT had also completed radiology report stating negative for acute intercranial process revealing persistent paranasal this disease most pronounced in the left unchanged from previous CT completed 07/21/22. Labs completed and reviewed. CBC revealing leuk ocytosis with WBC count of 13.8. Blood gas showing significant hypercarbia with pCO2 of 72. BMP revealing hypercarbia with bicarb of 38. Lactic acid normal findings 0.7. CMP showing no significant abnormalities. Initial troponin negative at less than 0.012. Chest x-ray was completed showing a left lower lobe airspace opacities concerning for pneumonia. Patient started on IV antibiotics with doxycycline 100 mg twice a day and admitted under our services at this time. Troponis were trended all negative at less than 0.0123 draws. Urine culture was negative. CT chest was ordered by prep manager 09/23/22 and radiology reports reviewed. Radiology report stating multiple parenchymal areas of nodularity within the left lower lobe suspicious for an inflammatory or infectious process, area of atelectasis within the left upper lobe along mediastinal border without a definitive obstructing mass clearly identified however underlying lesion is difficult to entirely exclude Kait and trace left pleural effusion. Radiologist recommending three-month follow-up examination to reassess atelectasis and resolution of suspected inflammatory or infectious process. Chest x-ray was repeated 09/24/22 and radiology report reviewed showing interval improvement in appearance of left chest with resolving infiltrate and prominence of the bilateral hilum could reflect pulmonary artery Physical examination: Patient seen and fully evaluated at bedside. She was sitting up in bed and appears to be doing much better this morning. She remains on baseline 2 L O2 via nasal cannula with SpO2 of 92%. Patient remains afebrile and has had no further episodes of breakthrough seizures since admission. Since adding on Norvasc 5 mg daily blood pressure is better controlled with morning blood pressure 157/94 prior to antihypertensive medication administration. General: non toxic, no distress, appears at stated age Derm: warm, dry Head: atraumatic, normocephalic, symmetric Eyes: EOMI, no lid lag, anicteric sclera Mouth: no lip lesion, mucus membranes moist Cardiovascular: S1S2 reg, no murmur, positive posterior tibial pulse bilateral, Lungs: Lungs diffuse coarse rhonchi with diffuse expiratory wheezes bilaterally. Abdominal: soft, nontender to palpation, no guarding, no appreciable organomegaly Ext: no gross muscle atrophy, no edema, no contractures Neuro: CN II-XI grossly intact, no focal neuro deficits Psych: Alert, oriented, appropriate affect Assessment and plan of care: Community-acquired pneumonia, left lower lobe Acute on chronic hypoxic and hypercarbic respiratory failure COPD with acute exacerbation secondary to above -Reviewed labs. CBC unremarkable. BMP showing hypercarbia with carbon dioxide of 31.9. -Continue IV antibiotic Invanz -Continue Robitussin 200 mg by mouth every 6 hours, Solu-Medrol 40 mg IVP twice daily, albuterol nebulizer treatment 4 times daily and as needed for wheezing/shortness of breath. -Plan to transition patient to oral steroids tomorrow morning. -Continue CPAP nightly -Discussed patient and plan of care with prep manager, Dr. Milligan stating patient is clinically stable but would like her to continue with IV Invanz at this time as he would further like to monitor for continued atelectasis as patient may need a bronchoscopy if left lower lobe atelectasis/infiltrate remains unchanged or persistent -Order placed for repeat CBC and BMP tomorrow morning to follow up in continue close monitoring of WBC count and carbon dioxide levels. Breakthrough seizure -Neurology following, discussed plan of care.. Neurologist stated patient cleared from a neurological perspective at this time at this time recommending continuing with Keppra to 750 mg twice daily and stating no further inpatient testing necessary. -Maintain seizure precautions and advised patient of [place] state law stating no driving for 6 months until seizure free. Uncontrolled hypertension -Since adding on Norvasc 5 mg daily blood pressure is better controlled with morning blood pressure 157/94 prior to antihypertensive medication administration. -Continue Coreg 25 mg twice a day along with amlodipine 5 mg daily at this time with no further medication changes at this time. Atypical Chest pain, likely secondary to left lower lobe pneumonia. Acute coronary event ruled out. -Cardiology was consulted, evaluated patient ruling out acute coronary event and signed off on 09/22/22 -Echocardiogram was completed 09/22/21 showing normal EF of 55-60% with no reported structural or valvular abnormalities. Hypomagnesemia, resolved. -Reviewed morning labs. Magnesium 1.[address] findings - Radiologist recommending three-month follow-up CT examination to reassess atelectasis and resolution of suspected inflammatory or infectious process. CODE STATUS: Full Code DVT prophylaxis with heparin Discussed with: Patient, RN and prep manager Anticipated discharge time: Clinical course to determine Anticipated discharge place: Home I reviewed the documentation as provided by the LIZETTE above, who is the original author of this note. I agree with the documented assessment and plan, with the following changes: none Objective - Vital Signs Vital signs: Vital Signs Temp 97.6 F 09/25/22 08:42 Pulse 78 09/25/22 08:42 Resp 19 09/25/22 08:42 BP 157/94 09/25/22 08:42 Pulse Ox 93 L 09/25/22 08:42 FiO2 Intake & Output 09/24/22 09/25/22 09/25/22 18:59 06:59 18:59 Intake Total 476 Balance 476 Intake: Oral 476 Other: Voiding Method Toilet # Voids 3 2 1 # Bowel Movements 1 - Labs CBC & Chem 7: 09/25/22 04:37 09/25/22 04:37
[2022-09-25] MEDS: QUEtiapine 50 MG TAB PO SCH (21:06)
[2022-09-25 21:31] LABS: Appearance,Urine Clear (Clear); Bacteria,Urine Rare /hpf; Bilirubin,Urine Negative (Negative); Blood,Urine Negative (Negative); Color,Urine Yellow; Glucose,Urine (UA) Negative (Negative); Ketones,Urine Trace (Negative); Leukocyte Esterase,Urine Small (Negative); Mucus,Urine Few /hpf; Nitrite,Urine Negative (Negative); Protein,Urine 1+ (Negative); RBC,Urine 2 /hpf (0-5); Specific Gravity,Urine 1.035 (1.001-1.035); Squamous Epithelial Cell,Urine 5 /hpf (0-4); WBC,Urine 6 /hpf (0-5)
[2022-09-25] MEDS ORDERED: MORPHINE SULFATE 2 MG/ML SYRINGE IVP STA (22:33)
[2022-09-26] MEDS ORDERED: hydrALAZINE HCL 25 MG TAB PO STA (00:39)
--- NOTE | 2022-09-26 04:53 | CT ---
EXAMINATION TYPE: CT abdomen pelvis wo con DATE OF EXAM: 09/26/2022 COMPARISON: 09/09/2022 HISTORY: LT FLANK PAIN CT DLP: 793.7 mGycm Automated exposure control for dose reduction was used. Images obtained from the diaphragm to the floor the pelvis without contrast. The lung bases are clear of infiltrate. No pleural effusion. Heart size is normal. No pericardial eff usion. There is some air refluxed into the anterior biliary tree. There are clips from cholecystectomy. Bile duct are not dilated. Spleen is intact. Stomach is intact. There is no evidence of pancreatic mass. There is some subtle fat stranding around the tail of the pancreas. There is no adrenal mass. Kidneys have normal size. No hydronephrosis. Ureters are not dilated. No re troperitoneal adenopathy. The bladder distends smoothly. No inguinal hernia. No free fluid in the pel vis. No pelvic mass. There are clips apparently from appendectomy. There is no mesenteric edema. No ascites or free air. N o sign of a bowel obstruction. The lumbar vertebrae have normal alignment. Posterior elements are intact. No compression fracture. B soledad pelvis is intact. The hip joints are intact. IMPRESSION: There is minimal subsegmental atelectasis at the left lung base which is a change. There is some subt le fat stranding around the tail of the pancreas that could be mild focal pancreatitis. There is air refluxed into the biliary tree which is increased compared to old exam. No dilated ducts. No evidence of renal stone or obstruction. The left ureter and left renal pelvis slightly increased compared to the old exam but no calculus see n and change is very minimal.
[2022-09-26] MEDS: guaiFENesin SYRUP 100MG/5ML 200 MG/10 ML CUP PO SCH ×4 (05:04→23:38)
[2022-09-26] MEDS: oxyCODONE-APAP 10-325MG 1 EACH TAB PO PRN ×4 (05:04→23:38)
[2022-09-26] MEDS: ALBUTEROL HFA INHALER INHALATION SCH ×4 (07:46→20:00)
[2022-09-26] MEDS: ERTAPENEM 1 GM in SODIUM CHLORIDE 0.9% 50 ML IVPB SCH (09:32)
[2022-09-26] MEDS: QUEtiapine 100 MG TAB PO SCH (09:32)
[2022-09-26] MEDS: SPIRONOLACTONE 25 MG TAB PO SCH (09:32)
[2022-09-26] MEDS: HEPARIN SODIUM,PORCINE/PF 5,000 UNIT/0.5 ML SYRINGE SQ SCH ×3 (09:32→23:38)
[2022-09-26] MEDS: carvediloL 12.5 MG TAB PO SCH ×2 (09:33→20:05)
[2022-09-26] MEDS: amLODIPine 5 MG TAB PO SCH (09:33)
[2022-09-26] MEDS: methylPREDNISolone SOD SUCCI 40 MG/ML 1 ML VIAL IV SCH ×2 (09:33→20:05)
[2022-09-26] MEDS: CITALOPRAM HYDROBROMIDE 20 MG TAB PO SCH (09:33)
--- NOTE | 2022-09-26 13:28 | P.PN ---
Subjective Progress Note Date: 09/26/22 47-year-old female patient was hospitalized for breakthrough seizures. The patient is known to have seizures disorder. I was estimated at the patient for a recurrent left lower lobe pneumonia. The patient is known to be. She has advanced oxygen-dependent COPD. She hasn't has less in the past for left lung pneumonia which was treated effectively and the patient was stabilized and pneumonia recovered. During this current admission, the patient comes in with breakthrough seizure that occurred at home. The patient family stated that the patient has 4 seizures prior to her arrival to the emergency department. The patient arrived to the ED and she was not confused. She had a productive cough also that was going on for several days prior to admission. Chest x-ray showed a left lower lobe consolidation and based on that the patient was started on antibiotics and the patient is currently on doxycycline. The CAT scan of the brain that was done at the time of admission showed no acute cranial process. The patient has abdominal discomfort of 9.7 which dropped from 13.8. The patient also had a hemoglobin of 12.3 with a rate of count of 253. Blood. It was done yesterday showed a pH of 7.41 with a pCO2 of 54 and pO2 of 56 and this was on FiO2 of 28%. BUN is at 9 with a creatinine of 0.4 and sodium levels of 138. UA was abnormal. Influenza screen, Covid 19 screen and RSV screen were all negative. UA showed 6 RBCs, 25 WBCs and rare bacteria. The patient is currently on 3 L of oxygen nasal cannula with a pulse ox of 95-97%. She is afebrile. Breathing is nonlabored. Her lactic acid level is down to 0.7. Troponins were negative. Chest x-ray showed a left lower lobe consolidation. Neurology evaluated the patient and patient is back on Keppra 750 mg by mouth twice a day. Patient is on albuterol HFA and IV Solu-Medrol. On today's evaluation of 09/24/2022, the patient is feeling well. No specific complaints. Less potent of breath and breathing easier on today's evaluation. Noted the patient had a recurrent left lower lobe pneumonia. For that reason, CAT scan of the chest was done that showed inflammatory changes in the left lower lobe. The same time, there was left upper lobe atelectasis with a possibility of endobronchial mucous and or malignancy/lesion being within the differential diagnosis. Right lung was essentially clear. The patient is currently on IV Invanz. She is tolerating her diet could no nausea or vomiting. No fever or chills. No side effects with antibiotics. She remains on Keppra. No seizure activity has been noted. 09/25/2022, the patient is on 2 L of oxygen by nasal cannula. No seizure activity and the patient remains on IV Invanz. No new complaints for now. The discomfort 7.8 with a hemoglobin of 4.5. Sodium is at 139, BUN is at 14 with a creatinine of 0.5. No other new complaints otherwise for now. The patient's is on 2 L O2 nasal cannula with a pulse ox of 93%. She is afebrile. She is tolerating diet. No nausea or vomiting. No other complaints otherwise for now. On today's evaluation of 09/26/2022, the patient remains on 2 L of oxygen by nasal cannula. She remains on IV Invanz. He is using the incentive spirometer. She was complaining of some flank pain and for that reason a CAT scan of the a bdomen and pelvis was done that showed no evidence of any significant abnormalities.UA was benign, there was some segmental and subsegmental atelectatic changes and left lung base. There was some fat stranding around the tail of the pancreas and biliary tree was essentially within normal limits the patient had surgical clips for appendectomy. Objective - Vital Signs Vital signs: Vital Signs Temp 98.1 F 09/26/22 06:54 Pulse 86 09/26/22 06:54 Resp 18 09/26/22 09:45 BP 148/74 09/26/22 06:54 Pulse Ox 93 L 09/26/22 07:49 FiO2 Intake & Output 09/25/22 09/26/22 09/26/22 17:59 06:59 18:59 Intake Total Balance Intake: Oral Other: Voiding Method # Voids - Exam GENERAL: The patient is alert and oriented x3, not in any acute distress. Well developed, well nourished. The patient is currently on 2 L O2 nasal cannula. She is awake and alert and following answers and commands without any major difficulties. Head exam was generally normal. There was no scleral icterus or corneal arcus. Mucous membranes were moist. HEENT: Pupils are round and equally reacting to light. EOMI. No scleral icterus. No conjunctival pallor. Normocephalic, atraumatic. No pharyngeal erythema. No thyromegaly. CARDIOVASCULAR: S1 and S2 present. No murmurs, rubs, or gallops. PULMONARY: Chest showed shows marked improvement in the bronchospasm wheezing and that is marked improvement in air entry bilaterally, noted the breath sounds are diminished bilaterally ABDOMEN: Soft, nontender, nondistended, normoactive bowel sounds. No palpable organomegaly. MUSCULOSKELETAL: No joint swelling or deformity. EXTREMITIES: No cyanosis, clubbing, or pedal edema. NEUROLOGICAL: Gross neurological examination did not reveal any focal deficits. SKIN: No rashes. no petechiae. - Labs CBC & Chem 7: 09/25/22 04:37 09/25/22 04:37 Labs: Abnormal Lab Results - Last 24 Hours (Table) 09/25/22 Range/Units 21:16 Urine Protein 1+ H (Negative) Urine Ketones Trace H (Negative) Ur Leukocyte Esterase Small H (Negative) Urine WBC 6 H (0-5) /hpf Ur Squamous Epith Cells 5 H (0-4) /hpf Urine Bacteria Rare H (None) /hpf Urine Mucus Few H (None) /hpf Assessment and Plan Plan: Left lower lobe pneumonia, consider aspiration. This pneumonia occurred around the time when the patient was having breakthrough seizures. As such, is reasonable to consider the possibility of a aspiration. Nevertheless, the patient has had previous episodes of left lower lobe pneumonia/lingular pneumonia from which she has recovered. In fact, the patient was in the hospital back in July 2022, treated for lingering pneumonia and the patient's chest x-ray was done on 07/21/2022 was already showing resolution of the lingular pulmonary infiltrates/left lower lobe pulmonary infiltrate Acute COPD exacerbation secondary to above Skeletal chest was reviewed and the patient has a left upper lobe atelectasis and left lower lobe inflammatory changes consistent with pneumonia. Seizure disorder with breakthrough seizures, currently on Keppra Chronic advanced COPD, oxygen dependent at 2 L on outpatient basis with secondary exacerbation History of chronic smoking and the patient was smoking up to 3-4 packs of cigarettes a day History of recent left lower lobe pneumonia/lingular pneumonia, recovered Polysubstance abuse including marijuana Rheumatoid arthritis History of seizure disorders History of CVA Fibromyalgia History of migraines Chronic kidney stones Plan Continue same treatment CAT scan of the abdomen and pelvis was noted UA was noted Clinically stable Continue oxygen at 2 L Continue IV Invanz, which provide the patient better coverage for aspiration pneumonia atelectasis will be monitored and the patient may need a bronchoscopy if the abnormality remains unchanged and are persistent. Limited improvement in terms of her COPD exacerbation. Continue IV Invanz for now Continue bronchodilators Continue IV Solu-Medrol Treatment of breakthrough seizures through neurology We'll follow
[2022-09-26] MEDS ORDERED: ORPHENADRINE 30 MG/ML 2 ML VIAL IVP STA (13:51)
[2022-09-26] MEDS: LIDOCAINE 5% PATCH TOPICAL SCH (14:07)
--- NOTE | 2022-09-26 14:37 | P.PN ---
Subjective Progress Note Date: 09/26/22 Hospital course: The patient is a very pleasant 47-year-old female with a past medical history of COPD with chronic hypoxic respiratory failure on 2 L nightly home oxygen and CPAP use, seizure disorder, and hypertension. She presented to the emergency department on 09/21/22 secondary to worsening shortness of breath, cough, and chest pain 3 days along with a witnessed breakthrough tonic-clonic seizure. Patient underwent full evaluation in the emergency department. EEG was completed showing normal sinus rhythm at 73 bpm with no noted T-wave or ST abnormalities upon personal review and interpretation. CT had also completed radiology report stating negative for acute intercranial process revealing persistent paranasal this disease most pronounced in the left unchanged from previous CT completed 07/21/22. Labs completed and reviewed. CBC revealing leuk ocytosis with WBC count of 13.8. Blood gas showing significant hypercarbia with pCO2 of 72. BMP revealing hypercarbia with bicarb of 38. Lactic acid normal findings 0.7. CMP showing no significant abnormalities. Initial troponin negative at less than 0.012. Chest x-ray was completed showing a left lower lobe airspace opacities concerning for pneumonia. Patient started on IV antibiotics with doxycycline 100 mg twice a day and admitted under our services at this time. Troponis were trended all negative at less than 0.0123 draws. Urine culture was negative. CT chest was ordered by tie layer 09/23/22 and radiology reports reviewed. Radiology report stating multiple parenchymal areas of nodularity within the left lower lobe suspicious for an inflammatory or infectious process, area of atelectasis within the left upper lobe along mediastinal border without a definitive obstructing mass clearly identified however underlying lesion is difficult to entirely exclude Kait and trace left pleural effusion. Radiologist recommending three-month follow-up examination to reassess atelectasis and resolution of suspected inflammatory or infectious process. Chest x-ray was repeated 09/24/22 and radiology report reviewed showing interval improvement in appearance of left chest with resolving infiltrate and prominence of the bilateral hilum could reflect pulmonary artery Physical examination: Patient seen and fully evaluated at bedside. She was sitting up in bed and tearful reporting she had a rough night. Patient states she is having left lower back/flank pain radiating into her buttocks and laterally down her left lateral thigh. Patient states she was formed in the past that this pain was from a chronic UTI. Repeat urinalysis was completed negative for infection. Previous urine culture also negative. CT abdomen and pelvis was completed to rule out kidney stone and radiology report reviewed stating CT abdomen and pelvis showing minimal subsegmental atelectasis at left lung base with no evidence of renal stone or obstruction. Patient again reports left lower back pain radiating from left lower flank into buttocks and "shoots" laterally down her left lateral thigh. Patient informed she is describing sciatica, which is l ikely been aggravated from prolonged immobilization in hospital bed. Patient encouraged to get out of bed with meals and ambulate in room. Order placed for K pad, Norflex, and lidocaine patch. General: non toxic, no distress, appears at stated age Derm: warm, dry Head: atraumatic, normocephalic, symmetric Eyes: EOMI, no lid lag, anicteric sclera Mouth: no lip lesion, mucus membranes moist Cardiovascular: S1S2 reg, no murmur, positive posterior tibial pulse bilateral, Lungs: Respirations even, regular, and unlabored on 2 L O2 via nasal cannula. Patient speaking in sentences this morning without noted conversational dyspnea. Lungs with soft expiratory wheezes, no rhonchi, rales, or crackles noted this morning. Abdominal: soft, nontender to palpation, no guarding, no appreciable organom egaly Ext: no gross muscle atrophy, no edema, no contractures Neuro: CN II-XI grossly intact, no focal neuro deficits Psych: Alert, oriented, appropriate affect Assessment and plan of care: Community-acquired pneumonia, left lower lobe Acute on chronic hypoxic and hypercarbic respiratory failure COPD with acute exacerbation secondary to above -Continue IV antibiotic Invanz -Continue Robitussin 200 mg by mouth every 6 hours, Solu-Medrol 40 mg IVP twice daily, albuterol nebulizer treatment 4 times daily and as needed for wheezing/shortness of breath. -Plan to transition patient to oral steroids tomorrow morning. -Continue CPAP nightly -Discussed patient and plan of care with tie layer, Dr. Milligan home is recommending continuation of IV Invanz at this time. -Order placed for repeat CBC and BMP tomorrow morning to follow up in continue close monitoring of WBC count and carbon dioxide levels. Acute on chronic low back pain with left-sided sciatica -Patient reports anaphylactic ALLERGY to NSAIDs. Order placed for Norflex and lidocaine patch in addition to patient's Percocet every 6 hours. -Patient encouraged to get out of bed and ambulate in room has sciatica is likely aggravated from prolonged immobilization in hospital bed. -CT abdomen and pelvis was completed overnight to rule out kidney stone and radiology report reviewed showing minimal subsegmental atelectasis at left lung base with no evidence of renal stone or obstruction. -Repeat urinalysis also completed and again negative for infection with previous urinalysis and urine culture both negative. -K pad ordered Uncontrolled hypertension -Since adding on Norvasc 5 mg daily blood pressures were better controlled and currently morning blood pressure is 148/74 prior to antihypertensive medication administration however patient did have some episodes of hypertension yesterday evening with blood pressure documented at 175/101 180/83. Will increase amlodipine to 10 mg daily -Continue Coreg 25 mg twice a day and amlodipine increased to 10 mg daily. Breakthrough seizure -Neurology evaluated and stated patient was cleared from a neurological perspective at this time at this time recommending continuing with Keppra to 750 mg twice daily and stating no further inpatient testing necessary. -Maintain seizure precautions and advised patient of [place] [employer] law stating no driving for 6 months until seizure free. Atypical Chest pain, likely secondary to left lower lobe pneumonia. Acute coronary event ruled out. -Cardiology was consulted, evaluated patient and ruled out acute coronary event and signed off on 09/22/22. -Echocardiogram was completed 09/22/21 showing normal EF of 55-60% with no reported structural or valvular abnormalities. Hypomagnesemia, resolved -Reviewed morning labs. Magnesium 1.[address] findings - Radiologist recommending three-month follow-up CT examination to reassess atelectasis and resolution of suspected inflammatory or infectious process. CODE STATUS: Full Code DVT prophylaxis with heparin Discussed with: Patient, RN and tie layer Anticipated discharge time: Clinical course to determine Anticipated discharge place: Home I reviewed the documentation as provided by the LIZETTE above, who is the original author of this note. I agree with the documented assessment and plan, with the following changes: none Objective - Vital Signs Vital signs: Vital Signs Temp 98.1 F 09/26/22 06:54 Pulse 86 09/26/22 06:54 Resp 18 09/26/22 06:54 BP 148/74 09/26/22 06:54 Pulse Ox 93 L 09/26/22 07:49 FiO2 Intake & Output 09/25/22 09/26/22 09/26/22 17:59 06:59 18:59 Intake Total Balance Intake: Oral Other: Voiding Method # Voids - Labs CBC & Chem 7: 09/25/22 04:37 09/25/22 04:37 Labs: Abnormal Lab Results - Last 24 Hours (Table) 09/25/22 09/25/22 09/25/22 Range/Units 04:37 04:37 21:16 MCH 26.5 L (27.0-32.0) pg MCHC 30.6 L (32.0-37.0) g/dL MPV 9.2 L (9.5-12.2) fL Carbon Dioxide 31.9 H (20.0-27.5) mmol/L Creatinine 0.5 L (0.6-1.5) mg/dL BUN/Creatinine Ratio 28.00 H (12.00-20.00) Ratio Glucose 161 H (70-110) mg/dL Total Bilirubin <0.15 L (0.30-1.20) mg/dL Albumin 3.7 L (3.8-4.9) g/dL Albumin/Globulin Ratio 1.37 L (1.60-3.17) g/dL Urine Protein 1+ H (Negative) Urine Ketones Trace H (Negative) Ur Leukocyte Esterase Small H (Negative) Urine WBC 6 H (0-5) /hpf Ur Squamous Epith Cells 5 H (0-4) /hpf Urine Bacteria Rare H (None) /hpf Urine Mucus Few H (None) /hpf
[2022-09-26] MEDS: QUEtiapine 50 MG TAB PO SCH (20:05)
[2022-09-27] MEDS: oxyCODONE-APAP 10-325MG 1 EACH TAB PO PRN ×4 (05:33→22:31)
[2022-09-27] MEDS: guaiFENesin SYRUP 100MG/5ML 200 MG/10 ML CUP PO SCH ×4 (05:33→23:06)
[2022-09-27] MEDS: ALBUTEROL HFA INHALER INHALATION SCH ×4 (07:48→19:17)
[2022-09-27] MEDS: SPIRONOLACTONE 25 MG TAB PO SCH (08:51)
[2022-09-27] MEDS: HEPARIN SODIUM,PORCINE/PF 5,000 UNIT/0.5 ML SYRINGE SQ SCH ×3 (08:51→23:05)
[2022-09-27] MEDS: QUEtiapine 100 MG TAB PO SCH (08:51)
[2022-09-27] MEDS: ERTAPENEM 1 GM in SODIUM CHLORIDE 0.9% 50 ML IVPB SCH (08:51)
[2022-09-27] MEDS: CITALOPRAM HYDROBROMIDE 20 MG TAB PO SCH (08:51)
[2022-09-27] MEDS: amLODIPine 10 MG TAB PO SCH (08:51)
[2022-09-27] MEDS: carvediloL 12.5 MG TAB PO SCH ×2 (08:51→21:32)
[2022-09-27] MEDS: methylPREDNISolone SOD SUCCI 40 MG/ML 1 ML VIAL IV SCH ×2 (08:52→21:32)
[2022-09-27 09:08] LABS: HCT 43.3 % (37.2-46.3); HGB 13.4 g/dL (12.0-15.0); MCH 26.7 pg (27.0-32.0); MCHC 30.9 g/dL (32.0-37.0); MCV 86.3 fL (80.0-97.0); Mean Platelet Volume 9.1 fL (9.5-12.2); NRBC Per 100 WBC 0 /100 WBCS (0.0-0.0); Platelet Count 340 X 10*3/uL (140-440); RBC 5.02 X 10*6/uL (4.10-5.20); RDW 13.2 % (11.5-14.5); WBC 11.39 X 10*3/uL (4.50-10.00)
[2022-09-27 09:49] LABS: ALT 83 U/L (8-44); AST 45 U/L (13-35); African American GFR (CKD) 125.8 (60.0-200.0); Albumin 3.6 g/dL (3.8-4.9); Albumin/Globulin Ratio 1.38 (1.60-3.17); Alkaline Phosphatase 84 U/L (41-126); BUN/Creat Ratio 30.83 Ratio (12.00-20.00); Blood Urea Nitrogen 18.5 mg/dL (9.0-27.0); Calcium 9.3 mg/dL (8.7-10.3); Carbon Dioxide 36.8 mmol/L (20.0-27.5); Chloride 93 mmol/L (96-109); Globulin 2.6 g/dL (1.6-3.3); Glucose 146 mg/dL (70-110); Non-African American GFR(CKD) 108.5 (60.0-200.0); Sodium 139 mmol/L (135-145); Total Bilirubin <0.15 mg/dL (0.30-1.20); Total Protein 6.2 g/dL (6.2-8.2)
[2022-09-27] MEDS ORDERED: methocarbamoL 500 MG TAB PO PRN (10:05)
--- NOTE | 2022-09-27 10:11 | P.DS ---
Providers Date of admission: 09/23/22 12:01 Expected date of discharge: 09/27/22 Attending physician: Bertin Mclain MD Consults: 09/22/22 01:52 Consult Physician Urgent Consulting Provider: Toi Villegas Consult Reason/Comments: chest pain Do you want consulting provider notified?: Yes 09/22/22 01:53 Consult Physician Urgent Consulting Provider: John Buckley Consult Reason/Comments: breakthrough seizure Do you want consulting provider notified?: Yes 09/22/22 17:50 Consult Physician Routine Consulting Provider: Samm Milligan Consult Reason/Comments: LLL pneumonia, COPD home o2 dependent Do you want consulting provider notified?: Yes Primary care physician: Stated None Hospital Course: Discharge Diagnosis: Community-acquired pneumonia, left lower lobe. Antibiotic course completed. Patient discharged home with prednisone 40 mg daily 5 days and to follow up with crime scene specialist in their office in one week. Acute on chronic hypoxic and hypercarbic respiratory failure. COPD with acute exacerbation secondary to above. Patient discharged with prednisone 40 mg daily 5 days and Ventolin inhaler, patient educated on the importance of smoking cessation and to follow up outpatient with crime scene specialist in office in 1 week. Acute on chronic low back pain with left-sided sciatica. Patient discharged with lidocaine patches and instructed on use of a heating pad/heat packs for assistance with pain management. Uncontrolled hypertension. Poorly controlled blood pressures. Patient was started on amlodipine 10 mg daily in addition to Coreg 25 mg twice daily. Current blood pressure 136/72. Breakthrough seizure. Neurology evaluated and stated patient was cleared from a neurological perspective at this time at this time recommending continuing with Keppra to 750 mg twice daily and stating no further inpatient testing necessary. Patient was advised of [place] state law stating no driving for 6 months until seizure free. Atypical Chest pain, likely secondary to left lower lobe pneumonia. Acute coronary event ruled out. Echocardiogram was completed 09/22/21 showing normal EF of 55-60% with no reported structural or valvular abnormalities. Hypomagnesemia, resolved. Abnormal CT findings. Radiologist recommending three-month follow-up CT examination to reassess atelectasis and resolution of suspected inflammatory or infectious process. Hospital Course: The patient is a very pleasant 47-year-old female with a past medical history of COPD with chronic hypoxic respiratory failure on 2 L nightly home oxygen and CPAP use, seizure disorder, and hypertension. She presented to the emergency department on 09/21/22 secondary to worsening shortness of breath, cough, and chest pain 3 days along with a witnessed breakthrough tonic-clonic seizure. Patient underwent full evaluation in the emergency department. EEG was completed showing normal sinus rhythm at 73 bpm with no noted T-wave or ST abnormalities upon personal review and interpretation. CT had also completed radiology report stating negative for acute intercranial process revealing persistent paranasal this disease most pronounced in the left unchanged from previous CT completed 07/21/22. Labs completed and reviewed. CBC revealing leukocytosis with WBC count of 13.8. Blood gas showing significant hypercarbia with pCO2 of 72. BMP revealing hypercarbia with bicarb of 38. Lactic acid normal findings 0.7. CMP showing no significant abnormalities. Initial troponin negative at less than 0.012. Chest x-ray was completed showing a left lower lobe airspace opacities concerning for pneumonia. Patient started on IV antibiotics with doxycycline 100 mg twice a day and admitted under our services at this time. Troponis were trended all negative at less than 0.0123 draws. Urine culture was negative. CT chest was ordered by crime scene specialist 09/23/22 and radiology reports reviewed. Radiology report stating multiple parenchymal areas of nodularity within the left lower lobe suspicious for an inflammatory or infectious process, area of atelectasis within the left upper lobe along mediastinal border without a definitive obstructing mass clearly identified however underlying lesion is difficult to entirely exclude Kait and trace left pleural effusion. Radiologist recommending three-month follow-up examination to reassess atelectasis and resolution of suspected inflammatory or infectious process. Chest x-ray was repeated 09/24/22 and radiology report reviewed showing interval improvement in appearance of left chest with resolving infiltrate and prominence of the bilateral hilum could reflect pulmonary artery. Patient received six-day course of antibiotics for treatment of pneumonia/aspiration pneumonia. She underwent evaluation by the crime scene specialist. Patient is back to baseline respiratory status. She completed course of antibiotics and is being discharged home on prednisone 40 mg daily 5 days along with Ventolin inhaler. Patient was counseled on importance of smoking cessation and to follow up outpatient with PCP and crime scene specialist. Physical examination: General: non toxic, no distress, appears at stated age Derm: warm, dry Head: atraumatic, normocephalic, symmetric Eyes: EOMI, no lid lag, anicteric sclera Mouth: no lip lesion, mucus membranes moist Cardiovascular: S1S2 reg, no murmur, positive posterior tibial pulse bilateral, Lungs: Respirations even, regular, and unlabored on baseline 2 L O2 via nasal cannula. Patient speaking in sentences this morning without noted conversational dyspnea. Lungs with soft expiratory wheezes, no rhonchi, rales, or crackles noted this morning. Abdominal: soft, nontender to palpation, no guarding, no appreciable organomegaly Ext: no gross muscle atrophy, no edema, no contractures Neuro: CN II-XI grossly intact, no focal neuro deficits Psych: Alert, oriented, appropriate affect A total of 32 minutes of time were spent preparing this complex discharge summary. Pt was discharged on 09/27/22 at 10:20 AM Patient was seen independently by Nurse Practitioner. This document was prepared using [employer] dictation software. Please allow for errors in senior underwriting assistant while rare they do occur. I reviewed the documentation as provided by the LIZETTE above, who is the original author of this note. I agree with the documented assessment and plan, with the following changes: none Patient Condition at Discharge: Stable Plan - Discharge Summary New Discharge Prescriptions: New amLODIPine [Norvasc] 10 mg PO DAILY 30 Days #30 tab Albuterol Inhaler [Ventolin Hfa Inhaler] 2 puff INHALATION RT-QID 30 Days #1 each predniSONE [Deltasone] 40 mg PO DAILY 5 Days #10 tab Lidocaine 5% Patch [Lidoderm 5% Patch] 1 patch TOPICAL Q24H 30 Days #30 patch hydrOXYzine pamoate [Vistaril] 50 mg PO Q6H PRN #40 capsule PRN Reason: Anxiety Continue Spironolactone [Aldactone] 25 mg PO DAILY Citalopram Hydrobromide [CeleXA] 40 mg PO DAILY Dicyclomine [Bentyl] 10 mg PO QID PRN PRN Reason: Gi Upset carvediloL [Coreg] 25 mg PO BID QUEtiapine [SEROquel] 100 mg PO DAILY oxyCODONE-APAP 10-325MG [Percocet 10-325 mg] 1 tab PO TID PRN PRN Reason: Pain Naloxone HCl [Narcan] 4 mg NASAL ONCE PRN PRN Reason: OVERDOSE QUEtiapine [SEROquel] 150 mg PO HS levETIRAcetam [Keppra] 500 mg PO BID Discharge Medication List Spironolactone [Aldactone] 25 mg PO DAILY 02/05/17 [History] Citalopram Hydrobromide [CeleXA] 40 mg PO DAILY 06/12/19 [History] Dicyclomine [Bentyl] 10 mg PO QID PRN 05/28/20 [History] carvediloL [Coreg] 25 mg PO BID 03/26/21 [History] oxyCODONE-APAP 10-325MG [Percocet 10-325 mg] 1 tab PO TID PRN 03/16/22 [History] Naloxone HCl [Narcan] 4 mg NASAL ONCE PRN 05/29/22 [History] QUEtiapine [SEROquel] 100 mg PO DAILY 07/21/22 [History] QUEtiapine [SEROquel] 150 mg PO HS 07/21/22 [History] levETIRAcetam [Keppra] 500 mg PO BID 07/21/22 [History] Albuterol Inhaler [Ventolin Hfa Inhaler] 2 puff INHALATION RT-QID 30 Days #1 each 09/27/22 [Rx] Lidocaine 5% Patch [Lidoderm 5% Patch] 1 patch TOPICAL Q24H 30 Days #30 patch 09/27/22 [Rx] amLODIPine [Norvasc] 10 mg PO DAILY 30 Days #30 tab 09/27/22 [Rx] hydrOXYzine pamoate [Vistaril] 50 mg PO Q6H PRN #40 capsule 09/27/22 [Rx] predniSONE [Deltasone] 40 mg PO DAILY 5 Days #10 tab 09/27/22 [Rx] Follow up Appointment(s)/Referral(s): Daren Sheffield MD [STAFF PHYSICIAN] - 1 Week (Please call billing department @[phone]) Samm Milligan MD [STAFF PHYSICIAN] - 10/18/22 8:45 am Patient Instructions/Handouts: How to Stop Smoking (DC), Sciatica (DC), COPD (Chronic Obstructive Pulmonary Disease) (DC), Lower Back Exercises (GEN), Chronic Lung Disease and Infection Prevention (DC), Pulmonary Rehabilitation (DC) Activity/Diet/Wound Care/Special Instructions: Activity: As tolerated. Take breaks as needed. Diet: Heart healthy and carb consistent diet. Avoid salts, or foods with hidden salts such as canned or boxed foods and frozen dinners. Extra salt makes your heart work harder and traps the fluid in your body for longer. Special Instructions: Take all of your medications as directed and remember to keep all of your doctor's appointments and follow-up as needed. You are being discharged home with COPD Navigator Program. You will need to follow up with crime scene specialist as discussed for monitoring of resolution of reported atelectasis with repeat imaging in 3 months. For your left sided lower back pain with sciatica, recommend heating packs/pads along with lidocaine patches prescribed also you have been provided with infomation on low impact back stretches/exercises that will also be beneficial. You will need to monitor your blood pressure twice daily and document these findings and a daily log/sternal to bring with you to your next doctor's appointment. Additional changes in medication dosing/medications may be needed based upon these findings. [place] state law states no driving until seizure free for 6 months. It is also important to avoid climbing ladders, operating dangerous or heavy machinery or unsupervised swimming until seizure free for 6 months. Strongly recommend smoking cessation. Thank you for allowing us to participate in your care, it was truly a pleasure having you for our patient!!! Discharge Disposition: HOME WITH HOME HEALTH SERVICES
[2022-09-27] MEDS ORDERED: ORPHENADRINE 30 MG/ML 2 ML VIAL IVP STA (10:16)
--- NOTE | 2022-09-27 12:47 | P.PN ---
Subjective Progress Note Date: 09/27/22 47-year-old female patient was hospitalized for breakthrough seizures. The patient is known to have seizures disorder. I was estimated at the patient for a recurrent left lower lobe pneumonia. The patient is known to be. She has advanced oxygen-dependent COPD. She hasn't has less in the past for left lung pneumonia which was treated effectively and the patient was stabilized and pneumonia recovered. During this current admission, the patient comes in with breakthrough seizure that occurred at home. The patient family stated that the patient has 4 seizures prior to her arrival to the emergency department. The patient arrived to the ED and she was not confused. She had a productive cough also that was going on for several days prior to admission. Chest x-ray showed a left lower lobe consolidation and based on that the patient was started on antibiotics and the patient is currently on doxycycline. The CAT scan of the brain that was done at the time of admission showed no acute cranial process. The patient has abdominal discomfort of 9.7 which dropped from 13.8. The patient also had a hemoglobin of 12.3 with a rate of count of 253. Blood. It was done yesterday showed a pH of 7.41 with a pCO2 of 54 and pO2 of 56 and this was on FiO2 of 28%. BUN is at 9 with a creatinine of 0.4 and sodium levels of 138. UA was abnormal. Influenza screen, Covid 19 screen and RSV screen were all negative. UA showed 6 RBCs, 25 WBCs and rare bacteria. The patient is currently on 3 L of oxygen nasal cannula with a pulse ox of 95-97%. She is afebrile. Breathing is nonlabored. Her lactic acid level is down to 0.7. Troponins were negative. Chest x-ray showed a left lower lobe consolidation. Neurology evaluated the patient and patient is back on Keppra 750 mg by mouth twice a day. Patient is on albuterol HFA and IV Solu-Medrol. On today's evaluation of 09/24/2022, the patient is feeling well. No specific complaints. Less potent of breath and breathing easier on today's evaluation. Noted the patient had a recurrent left lower lobe pneumonia. For that reason, CAT scan of the chest was done that showed inflammatory changes in the left lower lobe. The same time, there was left upper lobe atelectasis with a possibility of endobronchial mucous and or malignancy/lesion being within the differential diagnosis. Right lung was essentially clear. The patient is currently on IV Invanz. She is tolerating her diet could no nausea or vomiting. No fever or chills. No side effects with antibiotics. She remains on Keppra. No seizure activity has been noted. 09/25/2022, the patient is on 2 L of oxygen by nasal cannula. No seizure activity and the patient remains on IV Invanz. No new complaints for now. The discomfort 7.8 with a hemoglobin of 4.5. Sodium is at 139, BUN is at 14 with a creatinine of 0.5. No other new complaints otherwise for now. The patient's is on 2 L O2 nasal cannula with a pulse ox of 93%. She is afebrile. She is tolerating diet. No nausea or vomiting. No other complaints otherwise for now. On today's evaluation of 09/26/2022, the patient remains on 2 L of oxygen by nasal cannula. She remains on IV Invanz. He is using the incentive spirometer. She was complaining of some flank pain and for that reason a CAT scan of the ab domen and pelvis was done that showed no evidence of any significant abnormalities.UA was benign, there was some segmental and subsegmental atelectatic changes and left lung base. There was some fat stranding around the tail of the pancreas and biliary tree was essentially within normal limits the patient had surgical clips for appendectomy. The patient is seen today 09/27/2022 in follow-up on the regular medical floor. She is currently sitting up in bed. Awake and alert in no acute distress. She is improved today compared to yesterday. White count 11.3. Hemoglobin 13.4. Sodium 139. Potassium 5.0. BUN 18. Creatinine 0.6. Glucose 146. Currently on Invanz. Heparin for DVT prophylaxis. Remains on bronchodilators. Remains on IV Solu-Medrol. Objective - Vital Signs Vital signs: Vital Signs Temp 98.0 F 09/27/22 07:31 Pulse 73 09/27/22 07:31 Resp 18 09/27/22 08:50 BP 177/96 09/27/22 07:31 Pulse Ox 93 L 09/27/22 11:21 FiO2 Intake & Output 09/26/22 09/27/22 09/27/22 18:59 06:59 18:59 Intake Total 200 Balance 200 Intake: Oral 200 Other: Voiding Method Toilet # Voids 2 5 - Exam GENERAL: The patient is a 47-year-old female, alert and oriented x3, not in any acute distress. Well developed, well nourished. The patient is currently on 2 L O2 nasal cannula. Head exam was generally normal. There was no scleral icterus or corneal arcus. Mucous membranes were moist. HEENT: Pupils are round and equally reacting to light. EOMI. No scleral icterus. No conjunctival pallor. Normocephalic, atraumatic. No pharyngeal erythema. No thyromegaly. CARDIOVASCULAR: S1 and S2 present. No murmurs, rubs, or gallops. PULMONARY: Chest showed shows marked improvement in the bronchospasm wheezing and that is marked improvement in air entry bilaterally, breath sounds are diminished bilaterally ABDOMEN: Soft, nontender, nondistended, normoactive bowel sounds. No palpable organomegaly. MUSCULOSKELETAL: No joint swelling or deformity. EXTREMITIES: No cyanosis, clubbing, or pedal edema. NEUROLOGICAL: Gross neurological examination did not reveal any focal deficits. SKIN: No rashes. no petechiae. - Labs CBC & Chem 7: 09/27/22 06:03 09/27/22 06:03 Labs: Abnormal Lab Results - Last 24 Hours (Table) 09/27/22 09/27/22 Range/Units 06:03 06:03 WBC 11.39 H (4.50-10.00) X 10*3/uL MCH 26.7 L (27.0-32.0) pg MCHC 30.9 L (32.0-37.0) g/dL MPV 9.1 L (9.5-12.2) fL Chloride 93 L (96-109) mmol/L Carbon Dioxide 36.8 H (20.0-27.5) mmol/L Anion Gap 9.20 L (10.00-18.00) mmol/L BUN/Creatinine Ratio 30.83 H (12.00-20.00) Ratio Glucose 146 H (70-110) mg/dL Total Bilirubin <0.15 L (0.30-1.20) mg/dL AST 45 H (13-35) U/L ALT 83 H (8-44) U/L Albumin 3.6 L (3.8-4.9) g/dL Albumin/Globulin Ratio 1.38 L (1.60-3.17) g/dL Assessment and Plan Assessment: Left lower lobe pneumonia, consider aspiration. This pneumonia occurred around the time when the patient was having breakthrough seizures. As such, is reasonable to consider the possibility of a aspiration. Nevertheless, the patient has had previous episodes of left lower lobe pneumonia/lingular pneumonia from which she has recovered. In fact, the patient was in the hospital back in July 2022, treated for lingering pneumonia and the patient's chest x-ray was done on 07/21/2022 was already showing resolution of the lingular pulmonary infiltrates/left lower lobe pulmonary infiltrate Acute COPD exacerbation secondary to above CT scan of the chest was reviewed and the patient has a left upper lobe atelectasis and left lower lobe inflammatory changes consistent with pneumonia. Seizure disorder with breakthrough seizures, currently on Keppra Chronic advanced COPD, oxygen dependent at 2 L on outpatient basis with secondary exacerbation History of chronic smoking and the patient was smoking up to 3-4 packs of cigarettes a day History of recent left lower lobe pneumonia/lingular pneumonia, recovered Polysubstance abuse including marijuana Rheumatoid arthritis History of seizure disorders History of CVA Fibromyalgia History of migraines Chronic kidney stones Plan: The patient was seen and evaluated Improved and feeling back to her baseline No plans for bronchoscopy Discontinue antibiotics Continue her home oxygen Continue albuterol as needed Complete a prednisone taper Educated regarding the importance of complete smoking cessation Follow-up in our office in 1 week I have personally seen and examined the patient, performed the documentation and the assessment and plan as written. Number of minutes spent on the visit: 10.
[2022-09-27] MEDS: LIDOCAINE 5% PATCH TOPICAL SCH (13:10)
[2022-09-27] MEDS: QUEtiapine 50 MG TAB PO SCH (21:32)
[2022-09-28] MEDS: guaiFENesin SYRUP 100MG/5ML 200 MG/10 ML CUP PO SCH ×2 (05:19→12:30)
[2022-09-28] MEDS: oxyCODONE-APAP 10-325MG 1 EACH TAB PO PRN ×2 (05:19→13:39)
[2022-09-28] MEDS: QUEtiapine 100 MG TAB PO SCH (09:11)
[2022-09-28] MEDS: SPIRONOLACTONE 25 MG TAB PO SCH (09:11)
[2022-09-28] MEDS: CITALOPRAM HYDROBROMIDE 20 MG TAB PO SCH (09:11)
[2022-09-28] MEDS: HEPARIN SODIUM,PORCINE/PF 5,000 UNIT/0.5 ML SYRINGE SQ SCH (09:11)
[2022-09-28] MEDS: methylPREDNISolone SOD SUCCI 40 MG/ML 1 ML VIAL IV SCH (09:12)
[2022-09-28] MEDS: amLODIPine 10 MG TAB PO SCH (09:12)
[2022-09-28] MEDS: carvediloL 12.5 MG TAB PO SCH (09:12)
[2022-09-28] MEDS: ALBUTEROL HFA INHALER INHALATION SCH ×3 (09:41→15:30)
[2022-09-28] MEDS ORDERED: ORPHENADRINE 30 MG/ML 2 ML VIAL IVP STA (10:28)
--- NOTE | 2022-09-28 13:17 | P.PN ---
Subjective Progress Note Date: 09/28/22 47-year-old female patient was hospitalized for breakthrough seizures. The patient is known to have seizures disorder. I was estimated at the patient for a recurrent left lower lobe pneumonia. The patient is known to be. She has advanced oxygen-dependent COPD. She hasn't has less in the past for left lung pneumonia which was treated effectively and the patient was stabilized and pneumonia recovered. During this current admission, the patient comes in with breakthrough seizure that occurred at home. The patient family stated that the patient has 4 seizures prior to her arrival to the emergency department. The patient arrived to the ED and she was not confused. She had a productive cough also that was going on for several days prior to admission. Chest x-ray showed a left lower lobe consolidation and based on that the patient was started on antibiotics and the patient is currently on doxycycline. The CAT scan of the brain that was done at the time of admission showed no acute cranial process. The patient has abdominal discomfort of 9.7 which dropped from 13.8. The patient also had a hemoglobin of 12.3 with a rate of count of 253. Blood. It was done yesterday showed a pH of 7.41 with a pCO2 of 54 and pO2 of 56 and this was on FiO2 of 28%. BUN is at 9 with a creatinine of 0.4 and sodium levels of 138. UA was abnormal. Influenza screen, Covid 19 screen and RSV screen were all negative. UA showed 6 RBCs, 25 WBCs and rare bacteria. The patient is currently on 3 L of oxygen nasal cannula with a pulse ox of 95-97%. She is afebrile. Breathing is nonlabored. Her lactic acid level is down to 0.7. Troponins were negative. Chest x-ray showed a left lower lobe consolidation. Neurology evaluated the patient and patient is back on Keppra 750 mg by mouth twice a day. Patient is on albuterol HFA and IV Solu-Medrol. On today's evaluation of 09/24/2022, the patient is feeling well. No specific complaints. Less potent of breath and breathing easier on today's evaluation. Noted the patient had a recurrent left lower lobe pneumonia. For that reason, CAT scan of the chest was done that showed inflammatory changes in the left lower lobe. The same time, there was left upper lobe atelectasis with a possibility of endobronchial mucous and or malignancy/lesion being within the differential diagnosis. Right lung was essentially clear. The patient is currently on IV Invanz. She is tolerating her diet could no nausea or vomiting. No fever or chills. No side effects with antibiotics. She remains on Keppra. No seizure activity has been noted. 09/25/2022, the patient is on 2 L of oxygen by nasal cannula. No seizure activity and the patient remains on IV Invanz. No new complaints for now. The discomfort 7.8 with a hemoglobin of 4.5. Sodium is at 139, BUN is at 14 with a creatinine of 0.5. No other new complaints otherwise for now. The patient's is on 2 L O2 nasal cannula with a pulse ox of 93%. She is afebrile. She is tolerating diet. No nausea or vomiting. No other complaints otherwise for now. On today's evaluation of 09/26/2022, the patient remains on 2 L of oxygen by nasal cannula. She remains on IV Invanz. He is using the incentive spirometer. She was complaining of some flank pain and for that reason a CAT scan of the ab domen and pelvis was done that showed no evidence of any significant abnormalities.UA was benign, there was some segmental and subsegmental atelectatic changes and left lung base. There was some fat stranding around the tail of the pancreas and biliary tree was essentially within normal limits the patient had surgical clips for appendectomy. The patient is seen today 09/27/2022 in follow-up on the regular medical floor. She is currently sitting up in bed. Awake and alert in no acute distress. She is improved today compared to yesterday. White count 11.3. Hemoglobin 13.4. Sodium 139. Potassium 5.0. BUN 18. Creatinine 0.6. Glucose 146. Currently on Invanz. Heparin for DVT prophylaxis. Remains on bronchodilators. Remains on IV Solu-Medrol. The patient is seen today the 2022 in follow-up on the regular medical floor. She is awake and alert in no acute distress. Sitting up in bed. Feeling better today compared to yesterday. Maintaining good O2 saturations in the mid to upper 90s on 2 L/m per nasal cannula. Afebrile. Hemodynamically stable. Urine culture revealed no growth. Completed a course of antibiotics. Remains on prednisone taper. Remains on bronchodilators. Objective - Vital Signs Vital signs: Vital Signs Temp 98.0 F 09/28/22 07:28 Pulse 65 09/28/22 07:28 Resp 16 09/28/22 07:28 BP 150/83 09/28/22 07:28 Pulse Ox 95 09/28/22 10:50 FiO2 Intake & Output 09/27/22 09/28/22 09/28/22 18:59 06:59 18:59 Intake Total 50 Balance 50 Intake: Intake, IV Titration 50 Amount Ertapenem 1 gm In Sodium 50 Chloride 0.9% 50 ml @ 100 mls/hr IVPB DAILY [facility] Rx #:[id number] Other: Voiding Method Toilet # Voids 4 1 - Exam GENERAL: The patient is a 47-year-old female, alert and oriented x3, not in any acute distress. Currently on 2 L O2 nasal cannula. Head exam was generally normal. There was no scleral icterus or corneal arcus. Mucous membranes were moist. HEENT: Pupils are round and equally reacting to light. EOMI. No scleral icterus. No conjunctival pallor. Normocephalic, atraumatic. No pharyngeal erythema. No thyromegaly. CARDIOVASCULAR: S1 and S2 present. No murmurs, rubs, or gallops. PULMONARY: Chest showed shows marked improvement in the bronchospasm and wheezing, marked improvement in air entry bilaterally ABDOMEN: Soft, nontender, nondistended, normoactive bowel sounds. No palpable organomegaly. MUSCULOSKELETAL: No joint swelling or deformity. EXTREMITIES: No cyanosis, clubbing, or pedal edema. NEUROLOGICAL: Gross neurological examination did not reveal any focal deficits. SKIN: No rashes. no petechiae. - Labs CBC & Chem 7: 09/27/22 06:03 09/27/22 06:03 Assessment and Plan Assessment: Left lower lobe pneumonia, consider aspiration. This pneumonia occurred around the time when the patient was having breakthrough seizures. As such, is reasonable to consider the possibility of a aspiration. Nevertheless, the patient has had previous episodes of left lower lobe pneumonia/lingular pneumonia from which she has recovered. Acute COPD exacerbation secondary to above CT scan of the chest was reviewed and the patient has a left upper lobe atelectasis and left lower lobe inflammatory changes consistent with pneumonia. Seizure disorder with breakthrough seizures, currently on Keppra Chronic advanced COPD, oxygen dependent at 2 L on outpatient basis with secondary exacerbation History of chronic smoking and the patient was smoking up to 3-4 packs of cigarettes a day History of recent left lower lobe pneumonia/lingular pneumonia, recovered Polysubstance abuse including marijuana Rheumatoid arthritis History of seizure disorders History of CVA Fibromyalgia History of migraines Chronic kidney stones Plan: The patient was seen and evaluated Medications reviewed Continue her home oxygen Continue albuterol as needed Complete a prednisone taper Educated regarding the importance of complete smoking cessation Again cleared for discharge from the pulmonary standpoint Follow-up in our office in 1 week I have personally seen and examined the patient, performed the documentation and the assessment and plan as written. Number of minutes spent on the visit: 10.
[2022-09-28 14:52] VITALS: BP 139/87; PULSE 88; RESP 17; TEMP 98.5
--- NOTE | 2022-09-28 16:22 | P.DS ---
Providers Date of admission: 09/23/22 12:01 Expected date of discharge: 09/28/22 Attending physician: Bertin Mclain MD Consults: 09/22/22 01:52 Consult Physician Urgent Consulting Provider: Toi Villegas Consult Reason/Comments: chest pain Do you want consulting provider notified?: Yes 09/22/22 01:53 Consult Physician Urgent Consulting Provider: John Buckley Consult Reason/Comments: breakthrough seizure Do you want consulting provider notified?: Yes 09/22/22 17:50 Consult Physician Routine Consulting Provider: Samm Milligan Consult Reason/Comments: LLL pneumonia, COPD home o2 dependent Do you want consulting provider notified?: Yes Primary care physician: Stated None Hospital Course: Discharge Diagnosis: Community-acquired pneumonia, left lower lobe. Antibiotic course completed. Patient discharged home with prednisone 40 mg daily 5 days and to follow up with [employer] sales representative in their office in one week. Patient discharged home with COPD Navigator program. Acute on chronic hypoxic and hypercarbic respiratory failure. COPD with acute exacerbation secondary to above. Patient discharged with prednisone 40 mg daily 5 days and Ventolin inhaler, patient educated on the importance of smoking cessation and to follow up outpatient with [employer] sales representative in office in 1 week. Acute on chronic low back pain with left-sided sciatica. Patient discharged with lidocaine patches and instructed on use of a heating pad/heat packs for assistance with pain management. Uncontrolled hypertension. Poorly controlled blood pressures. Patient was started on amlodipine 10 mg daily in addition to Coreg 25 mg twice daily. Current blood pressure 136/72. Breakthrough seizure. Neurology evaluated and stated patient was cleared from a neurological perspective at this time at this time recommending continuing with Keppra to 750 mg twice daily and stating no further inpatient testing necessary. Patient was advised of [place] state law stating no driving for 6 months until seizure free. Atypical Chest pain, likely secondary to left lower lobe pneumonia. Acute coronary event ruled out. Echocardiogram was completed 09/22/21 showing normal EF of 55-60% with no reported structural or valvular abnormalities. Hypomagnesemia, resolved. Abnormal CT findings. Radiologist recommending three-month follow-up CT examination to reassess atelectasis and resolution of suspected inflammatory or infectious process. Hospital Course: The patient is a very pleasant 47-year-old female with a past medical history of COPD with chronic hypoxic respiratory failure on 2 L nightly home oxygen and CPAP use, seizure disorder, and hypertension. She presented to the emergency department on 09/21/22 secondary to worsening shortness of breath, cough, and chest pain 3 days along with a witnessed breakthrough tonic-clonic seizure. Patient underwent full evaluation in the emergency department. EEG was completed showing normal sinus rhythm at 73 bpm with no noted T-wave or ST abnormalities upon personal review and interpretation. CT had also completed radiology report stating negative for acute intercranial process revealing persistent paranasal this disease most pronounced in the left unchanged from previous CT completed 07/21/22. Labs completed and reviewed. CBC revealing leukocytosis with WBC count of 13.8. Blood gas showing significant hypercarbia with pCO2 of 72. BMP revealing hypercarbia with bicarb of 38. Lactic acid normal findings 0.7. CMP showing no significant abnormalities. Initial troponin negative at less than 0.012. Chest x-ray was completed showing a left lower lobe airspace opacities concerning for pneumonia. Patient started on IV antibiotics with doxycycline 100 mg twice a day and admitted under our services at this time. Troponis were trended all negative at less than 0.0123 draws. Urine culture was negative. CT chest was ordered by [employer] sales representative 09/23/22 and radiology reports reviewed. Radiology report stating multiple parenchymal areas of nodularity within the left lower lobe suspicious for an inflammatory or infectious process, area of atelectasis within the left upper lobe along mediastinal border without a definitive obstructing mass clearly identified however underlying lesion is difficult to entirely exclude Kait and trace left p leural effusion. Radiologist recommending three-month follow-up examination to reassess atelectasis and resolution of suspected inflammatory or infectious process. Chest x-ray was repeated 09/24/22 and radiology report reviewed showing interval improvement in appearance of left chest with resolving infiltrate and prominence of the bilateral hilum could reflect pulmonary artery. Patient received six-day course of antibiotics for treatment of pneumonia/aspiration pneumonia. She underwent evaluation by the [employer] sales representative. Patient is back to baseline respiratory status. She completed course of antibiotics and is being discharged home on prednisone 40 mg daily 5 days along with Ventolin inhaler. Patient was counseled on importance of smoking cessation and to follow up outpatient with PCP and [employer] sales representative. Patient was initially discharged on 09/27/22, however patient called Medicare and filed an appeal on her discharge. Today, patient asking to be discharged and was informed that once the appeal had been started, cannot discharge until further recommendations from Medicare. Patient reportedly called Medicare/Edgar and reportedly withdrew her appeal. Case management and patient advocate were contacted confirming this. Per director social service, patient case manager called and spoke with Edgar and was personally informed that patient withdrew her appeal and the case is closed. Patient is medically stable for discharge and discharge orders being placed at this time. Patient discharged home with COPD Navigator. Physical examination: General: non toxic, no distress, appears at stated age Derm: warm, dry Head: atraumatic, normocephalic, symmetric Eyes: EOMI, no lid lag, anicteric sclera Mouth: no lip lesion, mucus membranes moist Cardiovascular: S1S2 reg, no murmur, positive posterior tibial pulse bilateral, Lungs: Respirations even, regular, and unlabored on baseline 2 L O2 via nasal cannula. Patient speaking in sentences this morning without noted conversational dyspnea. Lungs diminished with no wheezes, no rhonchi, rales, or crackles noted this morning. Abdominal: soft, nontender to palpation, no guarding, no appreciable organomegaly Ext: no gross muscle atrophy, no edema, no contractures Neuro: CN II-XI grossly intact, no focal neuro deficits Psych: Alert, oriented, appropriate affect A total of 31 minutes of time were spent preparing this complex discharge summary. Pt was discharged on 09/27/22 at 10:20 AM Patient was seen independently by Nurse Practitioner. This document was prepared using [employer] dictation software. Please allow for errors in lodge officer while rare they do occur. I reviewed the documentation as provided by the LIZETTE above, who is the original author of this note. I agree with the documented assessment and plan, with the following changes: none Patient Condition at Discharge: Stable Plan - Discharge Summary New Discharge Prescriptions: New amLODIPine [Norvasc] 10 mg PO DAILY 30 Days #30 tab Albuterol Inhaler [Ventolin Hfa Inhaler] 2 puff INHALATION RT-QID 30 Days #1 each predniSONE [Deltasone] 40 mg PO DAILY 5 Days #10 tab Lidocaine 5% Patch [Lidoderm 5% Patch] 1 patch TOPICAL Q24H 30 Days #30 patch hydrOXYzine pamoate [Vistaril] 50 mg PO Q6H PRN #40 capsule PRN Reason: Anxiety Continue Spironolactone [Aldactone] 25 mg PO DAILY Citalopram Hydrobromide [CeleXA] 40 mg PO DAILY Dicyclomine [Bentyl] 10 mg PO QID PRN PRN Reason: Gi Upset carvediloL [Coreg] 25 mg PO BID QUEtiapine [SEROquel] 100 mg PO DAILY oxyCODONE-APAP 10-325MG [Percocet 10-325 mg] 1 tab PO TID PRN PRN Reason: Pain Naloxone HCl [Narcan] 4 mg NASAL ONCE PRN PRN Reason: OVERDOSE QUEtiapine [SEROquel] 150 mg PO HS levETIRAcetam [Keppra] 500 mg PO BID Discharge Medication List Spironolactone [Aldactone] 25 mg PO DAILY 02/05/17 [History] Citalopram Hydrobromide [CeleXA] 40 mg PO DAILY 06/12/19 [History] Dicyclomine [Bentyl] 10 mg PO QID PRN 05/28/20 [History] carvediloL [Coreg] 25 mg PO BID 03/26/21 [History] oxyCODONE-APAP 10-325MG [Percocet 10-325 mg] 1 tab PO TID PRN 03/16/22 [History] Naloxone HCl [Narcan] 4 mg NASAL ONCE PRN 05/29/22 [History] QUEtiapine [SEROquel] 100 mg PO DAILY 07/21/22 [History] QUEtiapine [SEROquel] 150 mg PO HS 07/21/22 [History] levETIRAcetam [Keppra] 500 mg PO BID 07/21/22 [History] Albuterol Inhaler [Ventolin Hfa Inhaler] 2 puff INHALATION RT-QID 30 Days #1 each 09/27/22 [Rx] Lidocaine 5% Patch [Lidoderm 5% Patch] 1 patch TOPICAL Q24H 30 Days #30 patch 09/27/22 [Rx] amLODIPine [Norvasc] 10 mg PO DAILY 30 Days #30 tab 09/27/22 [Rx] hydrOXYzine pamoate [Vistaril] 50 mg PO Q6H PRN #40 capsule 09/27/22 [Rx] predniSONE [Deltasone] 40 mg PO DAILY 5 Days #10 tab 09/27/22 [Rx] Follow up Appointment(s)/Referral(s): Daren Sheffield MD [STAFF PHYSICIAN] - 1 Week (Please call billing department @[phone]) Samm Milligan MD [STAFF PHYSICIAN] - 10/18/22 8:45 am Patient Instructions/Handouts: How to Stop Smoking (DC), Sciatica (DC), COPD (Chronic Obstructive Pulmonary Disease) (DC), Lower Back Exercises (GEN), Chronic Lung Disease and Infection Prevention (DC), Pulmonary Rehabilitation (DC) Activity/Diet/Wound Care/Special Instructions: Activity: As tolerated. Take breaks as needed. Diet: Heart healthy and carb consistent diet. Avoid salts, or foods with hidden salts such as canned or boxed foods and frozen dinners. Extra salt makes your heart work harder and traps the fluid in your body for longer. Special Instructions: Take all of your medications as directed and remember to keep all of your doctor's appointments and follow-up as needed. You are being discharged home with COPD Navigator Program. You will need to follow up with [employer] sales representative as discussed for monitoring of resolution of reported atelectasis with repeat imaging in 3 months. For your left sided lower back pain with sciatica, recommend heating packs/pads along with lidocaine patches prescribed also you have been provided with infomation on low impact back stretches/exercises that will also be beneficial. You will need to monitor your blood pressure twice daily and document these findings and a daily log/sternal to bring with you to your next doctor's appointment. Additional changes in medication dosing/medications may be needed based upon these findings. [place] state law states no driving until seizure free for 6 months. It is also important to avoid climbing ladders, operating dangerous or heavy machinery or unsupervised swimming until seizure free for 6 months. Strongly recommend smoking cessation. Thank you for allowing us to participate in your care, it was truly a pleasure having you for our patient!!! Discharge Disposition: HOME SELF-CARE
[2022-09-29] MEDS ORDERED: predniSONE 20 MG TAB PO SCH (09:00)
== END 2022-09-28 16:07 | disposition home or self-care (01) | DRG 100 ==
LOC: EC 18:24 → 6NMEDSUR 21:23 → OBSVTOIN 09-23 12:01 → 4SSUR 09-25 07:58
PROVIDERS: ADMIT Internal Medicine; ATTEND Internal Medicine
DX: G40.909 Epilepsy, unspecified, not intractable, without status epilepticus (principal); J69.0 Pneumonitis due to inhalation of food and vomit; J96.21 Acute and chronic respiratory failure with hypoxia; J96.22 Acute and chronic respiratory failure with hypercapnia; E87.3 Alkalosis; I31.9 Disease of pericardium, unspecified; J44.1 Chronic obstructive pulmonary disease with (acute) exacerbation; J98.11 Atelectasis; F60.3 Borderline personality disorder; F90.9 Attention-deficit hyperactivity disorder, unspecified type; G89.29 Other chronic pain; F41.9 Anxiety disorder, unspecified; F31.9 Bipolar disorder, unspecified; I11.0 Hypertensive heart disease with heart failure; I50.9 Heart failure, unspecified; E66.9 Obesity, unspecified; M79.7 Fibromyalgia; M06.9 Rheumatoid arthritis, unspecified; J45.909 Unspecified asthma, uncomplicated; K58.9 Irritable bowel syndrome, unspecified; Z99.81 Dependence on supplemental oxygen; Z20.822 Contact with and (suspected) exposure to COVID-19; F17.210 Nicotine dependence, cigarettes, uncomplicated; Z68.36 Body mass index [BMI] 36.0-36.9, adult; G43.909 Migraine, unspecified, not intractable, without status migrainosus; E83.42 Hypomagnesemia; Z71.6 Tobacco abuse counseling; N20.0 Calculus of kidney; Z28.310 Unvaccinated for COVID-19; M54.42 Lumbago with sciatica, left side; Z28.21 Immunization not carried out because of patient refusal; Z86.73 Personal history of transient ischemic attack (TIA), and cerebral infarction without residual deficits; Z87.01 Personal history of pneumonia (recurrent); Z86.14 Personal history of Methicillin resistant Staphylococcus aureus infection; Z86.19 Personal history of other infectious and parasitic diseases; Z88.2 Allergy status to sulfonamides; Z88.6 Allergy status to analgesic agent; Z88.1 Allergy status to other antibiotic agents; Z91.041 Radiographic dye allergy status; Z87.442 Personal history of urinary calculi; Z79.899 Other long term (current) drug therapy
CPT/HCPCS: 36415; 36600; 70450; 71045; 71046; 71250; 74176; 80053; 81001; 82803; 82805; 83605; 83690; 83735; 84484; 85025; 85027; 87086; 87636; 93005; 93306; 94640; 94760; 96361; 96374; 99285

== ENCOUNTER 2022-12-04 23:53 | Emergency (ER) | payer MEDICARE ==
[2022-12-05 00:02] VITALS: TEMP 98.7
[2022-12-05] MEDS ORDERED: MORPHINE SULFATE 2 MG/ML SYRINGE IVP ONE (00:53)
[2022-12-05 01:20] LABS: Appearance,Urine Clear (Clear); Bilirubin,Urine Negative (Negative); Blood,Urine Moderate (Negative); Color,Urine Yellow; Glucose,Urine (UA) Negative (Negative); Ketones,Urine Negative (Negative); Leukocyte Esterase,Urine Negative (Negative); Mucus,Urine Rare /hpf; Nitrite,Urine Negative (Negative); Protein,Urine 1+ (Negative); RBC,Urine 13 /hpf (0-5); Specific Gravity,Urine 1.036 (1.001-1.035); Squamous Epithelial Cell,Urine 4 /hpf (0-4); Urobilinogen,Urine <2.0 mg/dL (<2.0); WBC,Urine 6 /hpf (0-5)
[2022-12-05 01:22] LABS: Basophils % (A) 0 %; Eosinophils # (A) 0.2 k/uL (0-0.7); Eosinophils % (A) 2 %; HCT 42.6 % (34.0-46.0); HGB 13.7 gm/dL (11.4-16.0); Lymphocytes # (A) 3.4 k/uL (1.0-4.8); Lymphocytes % (A) 42 %; MCH 27.6 pg (25.0-35.0); MCHC 32.2 g/dL (31.0-37.0); MCV 85.8 fL (80.0-100.0); Mean Platelet Volume 7.3; Monocytes # (A) 0.4 k/uL (0-1.0); Monocytes % (A) 5 %; Neutrophils # (A) 3.9 k/uL (1.3-7.7); Neutrophils % (A) 49 %; Platelet Count 329 k/uL (150-450); RBC 4.96 m/uL (3.80-5.40); RDW 13.5 % (11.5-15.5); WBC 8.1 k/uL (3.8-10.6)
[2022-12-05 01:36] LABS: ALT 13 U/L (4-34); AST 24 U/L (14-36); African American GFR (CKD) >90 (>60 ml/min/1.73 sqM); Albumin 3.9 g/dL (3.5-5.0); Alkaline Phosphatase 89 U/L (38-126); Anion Gap 6 mmol/L; Blood Urea Nitrogen 18 mg/dL (7-17); Calcium 8.9 mg/dL (8.4-10.2); Carbon Dioxide 33 mmol/L (22-30); Chloride 99 mmol/L (98-107); Glucose 102 mg/dL (74-99); Non-African American GFR(CKD) >90 (>60 ml/min/1.73 sqM); Potassium 4.1 mmol/L (3.5-5.1); Sodium 138 mmol/L (137-145); Total Bilirubin 0.4 mg/dL (0.2-1.3); Total Protein 7.2 g/dL (6.3-8.2)
[2022-12-05] MEDS ORDERED: TAMSULOSIN 0.4 MG CAP.ER.24H PO STA (02:21)
[2022-12-05] MEDS ORDERED: KETOROLAC 15 MG/ML 1 ML VIAL IVP STA (02:21)
[2022-12-05] MEDS ORDERED: ACETAMINOPHEN TAB 325 MG TAB PO STA (02:39)
--- NOTE | 2022-12-05 02:41 | ED ---
General Adult HPI - General Chief complaint: Back Pain/Injury Stated complaint: Kidney Stones Time Seen by Provider: 12/05/22 00:20 Source: patient, EMS, RN notes reviewed Mode of arrival: EMS - History of Present Illness Initial comments: 47-year-old female with past medical history significant for COPD presents to the emergency department with chief complaint of right flank pain. Patient reports sudden right flank pain that started last night. She reports no provocation or preceding events. She denies any recent trauma or injury. The pain does not radiate anywhere else. She denies any accompanying symptoms of fever, chills, cough, chest pain, shortness of breath, he nausea, vomiting, diarrhea, dysuria, hematuria. She does report having a history of kidney stones. - Related Data Home Medications Medication Instructions Recorded Confirmed Spironolactone [Aldactone] 25 mg PO DAILY 02/05/17 09/21/22 Citalopram Hydrobromide [CeleXA] 40 mg PO DAILY 06/12/19 09/21/22 Dicyclomine [Bentyl] 10 mg PO QID PRN 05/28/20 09/21/22 carvediloL [Coreg] 25 mg PO BID 03/26/21 09/21/22 oxyCODONE-APAP 10-325MG [Percocet 1 tab PO TID PRN 03/16/22 09/21/22 10-325 mg] Naloxone HCl [Narcan] 4 mg NASAL ONCE PRN 05/29/22 09/21/22 QUEtiapine [SEROquel] 100 mg PO DAILY 07/21/22 09/21/22 QUEtiapine [SEROquel] 150 mg PO HS 07/21/22 09/21/22 levETIRAcetam [Keppra] 500 mg PO BID 07/21/22 09/21/22 Previous Rx's Medication Instructions Recorded Albuterol Inhaler [Ventolin Hfa 2 puff INHALATION RT-QID 30 Days 09/27/22 Inhaler] #1 each Lidocaine 5% Patch [Lidoderm 5% 1 patch TOPICAL Q24H 30 Days #30 09/27/22 Patch] patch amLODIPine [Norvasc] 10 mg PO DAILY 30 Days #30 tab 09/27/22 hydrOXYzine pamoate [Vistaril] 50 mg PO Q6H PRN #40 capsule 09/27/22 predniSONE [Deltasone] 40 mg PO DAILY 5 Days #10 tab 09/27/22 Ketorolac [Toradol] 10 mg PO Q8HR #15 tab 12/05/22 Allergies Allergy/AdvReac Type Severity Reaction Status Date / Time adhesive Allergy Rash/Hives Verified 09/21/22 18:53 amoxicillin Allergy Anaphylaxis Verified 09/21/22 18:53 azithromycin [From Zithromax] Allergy Anaphylaxis Verified 09/21/22 18:53 cephalexin monohydrate Allergy Anaphylaxis Verified 09/21/22 18:53 [From Keflex] ciprofloxacin Allergy Anaphylaxis Verified 09/21/22 18:53 clindamycin Allergy Anaphylaxis Verified 09/21/22 18:53 Iodinated Contrast Media Allergy Anaphylaxis Verified 09/21/22 18:53 [Iodinated Contrast- Oral and IV Dye] ketorolac [From Toradol] Allergy Unknown Verified 12/05/22 02:32 levofloxacin [From Levaquin] Allergy Rash/Hives Verified 09/21/22 18:53 naproxen Allergy Anaphylaxis Verified 09/21/22 18:53 NSAIDS (Non-Steroidal Allergy Rash/Hives Verified 09/21/22 18:53 Anti-Inflamma shellfish derived Allergy Anaphylaxis Verified 09/21/22 18:53 Sulfa (Sulfonamide Allergy Anaphylaxis Verified 09/21/22 18:53 Antibiotics) sulfamethoxazole Allergy Anaphylaxis Verified 09/21/22 18:53 [From Bactrim] tramadol Allergy Unknown Verified 09/21/22 18:53 trimethoprim [From Bactrim] Allergy Anaphylaxis Verified 09/21/22 18:53 Review of Systems ROS Statement: Those systems with pertinent positive or pertinent negative responses have been documented in the HPI. ROS Other: All systems not noted in ROS Statement are negative. 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 IBS, cellulitis of the chin, CVA about 1 year ago(no residual) History of Any Multi-Drug Resistant Organisms: MRSA Date of last positivie culture/infection: 07/2016 MDRO Source:: Chin Past Surgical History: Appendectomy, Section, Cholecystectomy, Hystere ctomy, Tubal Ligation Additional Past Surgical History / Comment(s): oral surgery . Pancreas biopsy May 2015. Past Anesthesia/Blood Transfusion Reactions: No Reported Reaction Past Psychological History: ADD/ADHD, Anxiety, Bipolar, Depression Smoking Status: Current some day smoker - Past Family History Father History Unknown: Yes Family Medical History: No Reported History Additional Family Medical History / Comment(s): Pt adopted Mother History Unknown: Yes Additional Family Medical History / Comment(s): Pt adopted General Exam - General Exam Comments Initial Comments: General: Alert, in no acute distress Head: atraumatic normocephalic. Eyes PERRL, EOMI intact, mucous membranes moist Respiratory: Lungs clear to auscultation bilaterally Cardiovascular: Heart rate regular rate and rhythm Abdominal: Soft without guarding or rebound, mild CVA tenderness on the right Extremities: Normal inspection with full range of motion and normal capillary refill Neuroogic: alert and oriented 3, CN II-XII intact, able to ambulate with steady gait Skin: warm dry and intact with normal color Course Vital Signs 12/04/22 12/05/22 23:56 03:56 Temperature 98.7 F Pulse Rate 87 70 Respiratory 15 16 Rate Blood Pressure 147/94 134/74 O2 Sat by Pulse 94 L Oximetry - Reevaluation(s) Reevaluation #1: 12/05/22 02:46 Patient reevaluated and updated on all results. Patient reports symptomatic relief status pain medications. Patient agreeable with the plan for discharge home at this time. Reevaluation #2: 12/05/22 03:51 patient continuously asking for Toradol although it is listed as an ALLERGY. Patient didn't use requested upon discharge. Medical Decision Making - Medical Decision Making Was pt. sent in by a medical professional or institution (, PA, PHOTOGRAMMETRIC COMPILATION SPECIALIST, urgent care, hospital, or correction...) When possible be specific @ -[No] Did you speak to anyone other than the patient for history (EMS, parent, family, police, friend...)? What history was obtained from this source @ -[No] Did you review nursing and triage notes (agree or disagree)? Why? @ -[I reviewed and agree with nursing and triage notes] Were old charts reviewed (outside hosp., previous admission, EMS record, old EKG, old radiological studies, urgent care reports/EKG's, correction records)? Report findings @ -[No old charts were reviewed] Differential Diagnosis (chest pain, altered mental status, abdominal pain women, abdominal pain men, vaginal bleeding, weakness, fever, dyspnea, syncope, headache, dizziness, GI bleed, back pain, seizure, CVA, palpatations, mental health, musculoskeletal)? @ -[not applicable] EKG interpreted by me (3pts min.). @ -[As above] X-rays interpreted by me (1pt min.). @ -[None done] CT interpreted by me (1pt min.). @ -[None done] U/S interpreted by me (1pt. min.). @ -[None done] What testing was considered but not performed or refused? (CT, X-rays, U/S, labs)? Why? @ -[None] What meds were considered but not given or refused? Why? @ -[None] Did you discuss the management of the patient with other professionals (professionals i.e. , PA, PHOTOGRAMMETRIC COMPILATION SPECIALIST, lab, RT, psych nurse, social sciences lecturer, staff nurse midwife, teacher, air support control officer, caser in)? Give summary @ -[No] Was smoking cessation discussed for >3mins.? @ -[No] Was critical care preformed (if so, how long)? @ -[No] Were there social determinants of health that impacted care today? How? (Homelessness, low income, unemployed, alcoholism, drug addiction, transportation, low edu. Level, literacy, decrease access to med. care, [place] [facility], rehab)? @ -[No] Was there de-escalation of care discussed even if they declined (Discuss DNR or withdrawal of care, Hospice)? DNR status @ -[No] What co-morbidities impacted this encounter? (DM, HTN, Smoking, COPD, CAD, Cancer, CVA, ARF, Chemo, Hep., AIDS, mental health diagnosis, sleep apnea, morbid obesity)? @ -[None] Was patient admitted / discharged? Hospital course, mention meds given and route, prescriptions, significant lab abnormalities, going to OR and other pertinent info. @ -[Discharged. This is a 47-year-old female who presents the emergency department with right flank pain. Patient had a physical exam which was essentially unremarkable heart rate regular rate and rhythm lungs clear to auscultation bilaterally abdomen soft nontender. Patient had lab work and imaging which was essentially unremarkable. I discussed the results in detail the patient verbalized understanding all questions were addressed. She was given Toradol and 1 L of IV fluids without symptomatically relief. She was given morphine and reports her pain subsided. Patient discharged in stable condition. Return precautions discussed at length. Case discussed with ISABELA Tee who agrees with plan of care Undiagnosed new problem with uncertain prognosis? @ -[No] Drug Therapy requiring intensive monitoring for toxicity (Heparin, Nitro, Insulin, Cardizem)? @ -[No] Were any procedures done? @ -[No] Diagnosis/symptom? @ -Right flank pain Acute, or Chronic, or Acute on Chronic? @ -acute Uncomplicated (without systemic symptoms) or Complicated (systemic symptoms)? @ -uncomplicated Side effects of treatment? @ -[No] Exacerbation, Progression, or Severe Exacerbation? @ -[No] Poses a threat to life or bodily function? How? (Chest pain, [place], [place], pneumonia, PE, COPD, DKA, ARF, appy, cholecystitis, CVA, Diverticulitis, Homicidal, Suicidal, threat to staff... and all critical care pts) @ -low likleihood - Lab Data Result diagrams: 12/05/22 01:09 12/05/22 01:09 Lab Results 12/05/22 12/05/22 12/05/22 Range/Units 01:09 01:09 01:09 WBC 8.1 (3.8-10.6) k/uL RBC 4.96 (3.80-5.40) m/uL Hgb 13.7 (11.4-16.0) gm/dL Hct 42.6 (34.0-46.0) % MCV 85.8 (80.0-100.0) fL MCH 27.6 (25.0-35.0) pg MCHC 32.2 (31.0-37.0) g/dL RDW 13.5 (11.5-15.5) % Plt Count 329 (150-450) k/uL MPV 7.3 Neutrophils % 49 % Lymphocytes % 42 % Monocytes % 5 % Eosinophils % 2 % Basophils % 0 % Neutrophils # 3.9 (1.3-7.7) k/uL Lymphocytes # 3.4 (1.0-4.8) k/uL Monocytes # 0.4 (0-1.0) k/uL Eosinophils # 0.2 (0-0.7) k/uL Basophils # 0.0 (0-0.2) k/uL Sodium 138 (137-145) mmol/L Potassium 4.1 (3.5-5.1) mmol/L Chloride 99 (98-107) mmol/L Carbon Dioxide 33 H (22-30) mmol/L Anion Gap 6 mmol/L BUN 18 H (7-17) mg/dL Creatinine 0.51 L (0.52-1.04) mg/dL Est GFR (CKD-EPI)AfAm >90 (>60 ml/min/1.73 sqM) Est GFR (CKD-EPI)NonAf >90 (>60 ml/min/1.73 sqM) Glucose 102 H (74-99) mg/dL Calcium 8.9 (8.4-10.2) mg/dL Total Bilirubin 0.4 (0.2-1.3) mg/dL AST 24 (14-36) U/L ALT 13 (4-34) U/L Alkaline Phosphatase 89 (38-126) U/L Total Protein 7.2 (6.3-8.2) g/dL Albumin 3.9 (3.5-5.0) g/dL Urine Color Yellow Urine Appearance Clear (Clear) Urine pH 6.0 (5.0-8.0) Ur Specific Kaplan 1.036 H (1.001-1.035) Urine Protein 1+ H (Negative) Urine Glucose (UA) Negative (Negative) Urine Ketones Negative (Negative) Urine Blood Moderate H (Negative) Urine Nitrite Negative (Negative) Urine Bilirubin Negative (Negative) Urine Urobilinogen <2.0 (<2.0) mg/dL Ur Leukocyte Esterase Negative (Negative) Urine RBC 13 H (0-5) /hpf Urine WBC 6 H (0-5) /hpf Ur Squamous Epith Cells 4 (0-4) /hpf Urine Mucus Rare H (None) /hpf Disposition Clinical Impression: Right flank pain Disposition: HOME SELF-CARE Condition: Stable Instructions (If sedation given, give patient instructions): Acute Low Back Pain (ED), Flank Pain (ED) Additional Instructions: Please return to the nearest emergency department symptoms worsen or persist Prescriptions: Ketorolac [Toradol] 10 mg PO Q8HR #15 tab Is patient prescribed a controlled substance at d/c from ED?: No When asked, does pt state using other controlled substances?: No Referrals: None,Stated [Primary Care Provider] - 1-2 days Time of Disposition: 02:40
--- NOTE | 2022-12-05 03:50 | XR ---
EXAM: XR Abdomen, 1 View CLINICAL HISTORY: ITS.REASON XR Reason: R flank pain TECHNIQUE: Frontal supine view of the abdomen/pelvis. COMPARISON: No relevant prior studies available. FINDINGS: Gastrointestinal tract: No dilation. Bones/joints: No acute fracture. No dislocation. IMPRESSION: No acute findings. No obvious stones seen.
[2022-12-05 03:57] VITALS: BP 134/74; PULSE 70; RESP 16
== END 2022-12-05 03:57 | disposition home or self-care (01) ==
LOC: EC 23:53
DX: N20.0 Calculus of kidney (principal); I11.0 Hypertensive heart disease with heart failure; I50.9 Heart failure, unspecified; J44.9 Chronic obstructive pulmonary disease, unspecified; F41.9 Anxiety disorder, unspecified; F31.9 Bipolar disorder, unspecified; F17.200 Nicotine dependence, unspecified, uncomplicated; Z79.899 Other long term (current) drug therapy; Z88.1 Allergy status to other antibiotic agents; Z88.2 Allergy status to sulfonamides; Z88.5 Allergy status to narcotic agent; Z88.6 Allergy status to analgesic agent; Z88.8 Allergy status to other drugs, medicaments and biological substances; Z90.49 Acquired absence of other specified parts of digestive tract
CPT/HCPCS: 99284; 96374; 36415; 80053; 85025; 81001; 74018; J2270

== ENCOUNTER 2023-01-26 20:24 | Observation (INO) | payer MEDICARE ==
[2023-01-26 21:31] LABS: Appearance,Urine Clear (Clear); Bilirubin,Urine Negative (Negative); Blood,Urine Moderate (Negative); Color,Urine Yellow; Glucose,Urine (UA) Negative (Negative); Hyaline Casts,Urine 1 /lpf (0-2); Ketones,Urine Negative (Negative); Leukocyte Esterase,Urine Small (Negative); Mucus,Urine Moderate /hpf; Nitrite,Urine Negative (Negative); PH, Urine 6.5 (5.0-8.0); Protein,Urine 1+ (Negative); RBC,Urine 22 /hpf (0-5); Specific Gravity,Urine 1.032 (1.001-1.035); Squamous Epithelial Cell,Urine 6 /hpf (0-4); WBC,Urine 4 /hpf (0-5)
[2023-01-26] MEDS ORDERED: ONDANSETRON 4 MG/2 ML VIAL IVP STA (22:31)
[2023-01-26] MEDS ORDERED: SODIUM CHLORIDE 0.9% 1,000 ML IV STA (22:31)
[2023-01-26] MEDS ORDERED: MORPHINE SULFATE 4 MG/ML SYRINGE IVP STA (22:31)
--- NOTE | 2023-01-26 22:32 | ED ---
Abdominal Pain HPI - General Chief Complaint: Abdominal Pain Stated Complaint: Back Pain Time Seen by Provider: 01/26/23 22:09 Source: patient, EMS, RN notes reviewed Mode of arrival: EMS Limitations: no limitations - History of Present Illness Initial Comments: Patient is a 48-year-old female presenting to the emergency room via EMS with complaints of right flank pain which began earlier this morning is slowly intensified throughout the day today despite the use of her chronic pain medication of Percocet that she takes her for her fibromyalgia. She reports that the pain is worse with deep inspiration and she has nausea associated with her pain but denies any vomiting. She reports some chills but denies any fevers. She has reports of increased urinary frequency but denies any dysuria or hematuria but does admit to past medical history significant for kidney stones. She denies any chest pain, shortness breath or other complaints at this time. In addition to her nephrolithiasis and fibromyalgia history she has a past medical history significant for COPD, CHF, CVA with no residual, irritable bowel syndrome, hypertension, arthritis, seizures, migraines and chronic back pain. - Related Data Home Medications Medication Instructions Recorded Confirmed Spironolactone [Aldactone] 25 mg PO DAILY 02/05/17 09/21/22 Citalopram Hydrobromide [CeleXA] 40 mg PO DAILY 06/12/19 09/21/22 Dicyclomine [Bentyl] 10 mg PO QID PRN 05/28/20 09/21/22 carvediloL [Coreg] 25 mg PO BID 03/26/21 09/21/22 oxyCODONE-APAP 10-325MG [Percocet 1 tab PO TID PRN 03/16/22 09/21/22 10-325 mg] Naloxone HCl [Narcan] 4 mg NASAL ONCE PRN 05/29/22 09/21/22 QUEtiapine [SEROquel] 100 mg PO DAILY 07/21/22 09/21/22 QUEtiapine [SEROquel] 150 mg PO HS 07/21/22 09/21/22 levETIRAcetam [Keppra] 500 mg PO BID 07/21/22 09/21/22 Previous Rx's Medication Instructions Recorded Albuterol Inhaler [Ventolin Hfa 2 puff INHALATION RT-QID 30 Days 09/27/22 Inhaler] #1 each Lidocaine 5% Patch [Lidoderm 5% 1 patch TOPICAL Q24H 30 Days #30 09/27/22 Patch] patch amLODIPine [Norvasc] 10 mg PO DAILY 30 Days #30 tab 09/27/22 hydrOXYzine pamoate [Vistaril] 50 mg PO Q6H PRN #40 capsule 09/27/22 predniSONE [Deltasone] 40 mg PO DAILY 5 Days #10 tab 09/27/22 Ketorolac [Toradol] 10 mg PO Q8HR #15 tab 12/05/22 Allergies Allergy/AdvReac Type Severity Reaction Status Date / Time adhesive Allergy Rash/Hives Verified 01/26/23 20:57 amoxicillin Allergy Anaphylaxis Verified 01/26/23 20:57 azithromycin [From Zithromax] Allergy Anaphylaxis Verified 01/26/23 20:57 cephalexin monohydrate Allergy Anaphylaxis Verified 01/26/23 20:57 [From Keflex] ciprofloxacin Allergy Anaphylaxis Verified 01/26/23 20:57 clindamycin Allergy Anaphylaxis Verified 01/26/23 20:57 Iodinated Contrast Media Allergy Anaphylaxis Verified 01/26/23 20:57 [Iodinated Contrast- Oral and IV Dye] ketorolac [From Toradol] Allergy Unknown Verified 01/26/23 20:57 levofloxacin [From Levaquin] Allergy Rash/Hives Verified 01/26/23 20:57 naproxen Allergy Anaphylaxis Verified 01/26/23 20:57 NSAIDS (Non-Steroidal Allergy Rash/Hives Verified 01/26/23 20:57 Anti-Inflamma shellfish derived Allergy Anaphylaxis Verified 01/26/23 20:57 Sulfa (Sulfonamide Allergy Anaphylaxis Verified 01/26/23 20:57 Antibiotics) sulfamethoxazole Allergy Anaphylaxis Verified 01/26/23 20:57 [From Bactrim] tramadol Allergy Unknown Verified 01/26/23 20:57 trimethoprim [From Bactrim] Allergy Anaphylaxis Verified 01/26/23 20:57 Review of Systems ROS Statement: Those systems with pertinent positive or pertinent negative responses have been documented in the HPI. ROS Other: All systems not noted in ROS Statement are negative. 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 IBS, cellulitis of the chin, CVA about 1 year ago(no residual) History of Any Multi-Drug Resistant Organisms: MRSA Date of last positivie culture/infection: 07/2016 MDRO Source:: Chin Past Surgical History: Appendectomy, Section, Cholecystectomy, Hysterectomy, Tubal Ligation Additional Past Surgical History / Comment(s): oral surgery . Pancreas biopsy May 2015. Past Anesthesia/Blood Transfusion Reactions: No Reported Reaction Past Psychological History: ADD/ADHD, Anxiety, Bipolar, Depression Smoking Status: Current some day smoker - Past Family History Father History Unknown: Yes Family Medical History: No Reported History Additional Family Medical History / Comment(s): Pt adopted Mother History Unknown: Yes Additional Family Medical History / Comment(s): Pt adopted General Exam Limitations: no limitations General appearance: alert, in no apparent distress Head exam: Present: atraumatic, normocephalic, normal inspection Eye exam: Present: normal appearance, PERRL, EOMI. Absent: scleral icterus, conjunctival injection, periorbital swelling ENT exam: Present: normal exam, mucous membranes moist Neck exam: Present: normal inspection, full ROM. Absent: lymphadenopathy Respiratory exam: Present: normal lung sounds bilaterally, respiratory distress. Absent: wheezes, rales, rhonchi, chest wall tenderness, decreased breath sounds Cardiovascular Exam: Present: regular rate, normal rhythm, normal heart sounds. Absent: systolic murmur, diastolic murmur, rubs, gallop, clicks GI/Abdominal exam: Present: soft, normal bowel sounds. Absent: distended, tenderness, guarding, rebound, rigid Extremities exam: Present: normal inspection. Absent: pedal edema, joint swelling Back exam: Present: CVA tenderness (R). Absent: CVA tenderness (L), muscle spasm, paraspinal tenderness, vertebral tenderness Neurological exam: Present: alert, oriented X3, CN II-XII intact Psychiatric exam: Present: normal affect, normal mood Skin exam: Present: warm, dry, intact, normal color. Absent: rash Course Vital Signs 01/26/23 01/26/23 01/27/23 20:49 23:20 00:32 Temperature 98.4 F Pulse Rate 83 83 88 Respiratory 19 18 18 Rate Blood Pressure 183/77 182/97 194/94 O2 Sat by Pulse 97 98 99 Oximetry 01/27/23 01/27/23 01/27/23 02:00 03:34 03:52 Temperature Pulse Rate 82 81 78 Respiratory 18 18 18 Rate Blood Pressure 188/98 180/90 177/87 O2 Sat by Pulse 98 98 97 Oximetry Medical Decision Making - Medical Decision Making Was pt. sent in by a medical professional or institution (, PA, AIRPORT OPERATIONS SUPERVISOR, urgent care, hospital, or care home...) When possible be specific @ -No Did you speak to anyone other than the patient for history (EMS, parent, family, police, friend...)? What history was obtained from this source @ -No Did you review nursing and triage notes (agree or disagree)? Why? @ -I reviewed and agree with nursing and triage notes Were old charts reviewed (outside hosp., previous admission, EMS record, old EKG, old radiological studies, urgent care reports/EKG's, care home records)? Report findings @ -No old charts were reviewed Differential Diagnosis (chest pain, altered mental status, abdominal pain women, abdominal pain men, vaginal bleeding, weakness, fever, dyspnea, syncope, headache, dizziness, GI bleed, back pain, seizure, CVA, palpatations, mental health, musculoskeletal)? @ -Differential Back Pain: Strain, zoster, cauda equina syndrome, epidural abscess, vertebral osteomyelitis, discitis, fracture, subluxation, disc herniation, DJD, spinal stenosis, dissection, AAA, pancreatitis, peptic ulcer disease, pyelonephritis, kidney stone, this is not meant to be an all-inclusive list. EKG interpreted by me (3pts min.). @ -None done X-rays interpreted by me (1pt min.). @ -None done CT interpreted by me (1pt min.). @ -CT of the abdomen and pelvis: No evidence of nephrolithiasis, hydro nephrosis, free air or free fluid in the abdomen. No acute intra- abdominal/intrapelvic process. U/S interpreted by me (1pt. min.). @ -None done What testing was considered but not performed or refused? (CT, X-rays, U/S, labs)? Why? @ -None What meds were considered but not given or refused? Why? @ -None Did you discuss the management of the patient with other professionals (professionals i.e. , PA, AIRPORT OPERATIONS SUPERVISOR, lab, RT, psych nurse, social science instructor, special education bus driver, teacher, vice squad police officer, protective services case worker)? Give summary @ -No Was smoking cessation discussed for >3mins.? @ -No Was critical care preformed (if so, how long)? @ -No Were there social determinants of health that impacted care today? How? (Homelessness, low income, unemployed, alcoholism, drug addiction, transportation, low edu. Level, literacy, decrease access to med. care, nursing home, rehab)? @ -No Was there de-escalation of care discussed even if they declined (Discuss DNR or withdrawal of care, Hospice)? DNR status @ -No What co-morbidities impacted this encounter? (DM, HTN, Smoking, COPD, CAD, Cancer, CVA, ARF, Chemo, Hep., AIDS, mental health diagnosis, sleep apnea, morbid obesity)? @ -None Was patient admitted / discharged? Hospital course, mention meds given and route, prescriptions, significant lab abnormalities, going to OR and other pertinent info. @ -40-year-old female presenting to the emergency room with complaints of right flank pain ongoing since this morning. She denies any inciting event but does report pain aggravation with movement and deep inspiration. She has chronic pain medications for fibromyalgia and chronic back pain that is not helping with her pain. She does report a history of kidney stones in his complaining of increased urinary frequency but is unsure if the pain is similar to her previous kidney stone pain. Will start workup and treatment for flank pain with CT of the abdomen and pelvis without contrast, CBC, CMP, amylase, lipase along with medications of 1 L IV fluids, Zofran and morphine. Chart documents ALLERGY to Toradol. Pain continues despite morphin. Nausea improved with Zofran. Will give Dilaudid. Computed tomography scan without any acute process. Laboratory studies show normal CBC. Carbon dioxide level elevated at 36 consistent with COPD diagnosis, sodium low at 136 chloride low at 97 BUN elevated at 20 however due to history of CHF will defer further IV fluid boluses. Glucose elevated at 101 no other abnormalities on CMP. Amylase and lipase normal. Urinalysis with moderate amount of blood and protein with contamination of epithelial cells of 6; RBCs at 22 and small leukocyte esterase. Above findings discussed with the patient. She continues to complain of high levels of pain and have correlating elevation in blood pressure. Advise recommendation of admission for intractable flank pain but no further diagnostic imaging or laboratory studies are indicated at this time. Will give home medication of Norvasc for high blood pressure. Spoke with Naz Iglesias on for [facility] [place] services regarding visitation workup and recommendation of observation stay for intractable pain, she is accepting of admission denies any further orders at this time. Will admit patient to observation unit [facility] [place] in stable condition for further evaluation and treatment for intractable right flank pain. Undiagnosed new problem with uncertain prognosis? @ -No Drug Therapy requiring intensive monitoring for toxicity (Heparin, Nitro, Insulin, Cardizem)? @ -No Were any procedures done? @ -No Diagnosis/symptom? @ -Right flank pain Acute, or Chronic, or Acute on Chronic? @ -Acute Uncomplicated (without systemic symptoms) or Complicated (systemic symptoms)? @ -Uncomplicated Side effects of treatment? @ -No Exacerbation, Progression, or Severe Exacerbation? @ -No Poses a threat to life or bodily function? How? (Chest pain, [place], [place], pneumonia, PE, COPD, DKA, ARF, appy, cholecystitis, CVA, Diverticulitis, Homicidal, Suicidal, threat to staff... and all critical care pts) @ -No Case discussed with Dr. Issa. - Lab Data Result diagrams: 01/26/23 22:45 01/26/23 22:45 Lab Results 01/26/23 01/26/23 01/26/23 Range/Units 21:07 22:45 22:45 WBC 8.7 (3.8-10.6) k/uL RBC 4.99 (3.80-5.40) m/uL Hgb 14.0 (11.4-16.0) gm/dL Hct 43.2 (34.0-46.0) % MCV 86.6 (80.0-100.0) fL MCH 28.1 (25.0-35.0) pg MCHC 32.5 (31.0-37.0) g/dL RDW 13.2 (11.5-15.5) % Plt Count 321 (150-450) k/uL MPV 7.1 Neutrophils % 51 % Lymphocytes % 40 % Monocytes % 4 % Eosinophils % 3 % Basophils % 0 % Neutrophils # 4.4 (1.3-7.7) k/uL Lymphocytes # 3.5 (1.0-4.8) k/uL Monocytes # 0.4 (0-1.0) k/uL Eosinophils # 0.2 (0-0.7) k/uL Basophils # 0.0 (0-0.2) k/uL Sodium 136 L (137-145) mmol/L Potassium 4.0 (3.5-5.1) mmol/L Chloride 97 L (98-107) mmol/L Carbon Dioxide 36 H (22-30) mmol/L Anion Gap 3 mmol/L BUN 20 H (7-17) mg/dL Creatinine 0.67 (0.52-1.04) mg/dL Est GFR (CKD-EPI)AfAm >90 (>60 ml/min/1.73 sqM) Est GFR (CKD-EPI)NonAf >90 (>60 ml/min/1.73 sqM) Glucose 101 H (74-99) mg/dL Plasma Lactic Acid Srinivas (0.7-2.0) mmol/L Calcium 9.0 (8.4-10.2) mg/dL Total Bilirubin 0.3 (0.2-1.3) mg/dL AST 19 (14-36) U/L ALT 13 (4-34) U/L Alkaline Phosphatase 106 (38-126) U/L Total Protein 7.3 (6.3-8.2) g/dL Albumin 4.1 (3.5-5.0) g/dL Amylase 49 (30-110) U/L Lipase 58 (23-300) U/L Urine Color Yellow Urine Appearance Clear (Clear) Urine pH 6.5 (5.0-8.0) Ur Specific [place] 1.032 (1.001-1.035) Urine Protein 1+ H (Negative) Urine Glucose (UA) Negative (Negative) Urine Ketones Negative (Negative) Urine Blood Moderate H (Negative) Urine Nitrite Negative (Negative) Urine Bilirubin Negative (Negative) Urine Urobilinogen 2.0 (<2.0) mg/dL Ur Leukocyte Esterase Small H (Negative) Urine RBC 22 H (0-5) /hpf Urine WBC 4 (0-5) /hpf Ur Squamous Epith Cells 6 H (0-4) /hpf Hyaline Casts 1 (0-2) /lpf Urine Mucus Moderate H (None) /hpf 07/12/23 Range/Units 22:45 WBC (3.8-10.6) k/uL RBC (3.80-5.40) m/uL Hgb (11.4-16.0) gm/dL Hct (34.0-46.0) % MCV (80.0-100.0) fL MCH (25.0-35.0) pg MCHC (31.0-37.0) g/dL RDW (11.5-15.5) % Plt Count (150-450) k/uL MPV Neutrophils % % Lymphocytes % % Monocytes % % Eosinophils % % Basophils % % Neutrophils # (1.3-7.7) k/uL Lymphocytes # (1.0-4.8) k/uL Monocytes # (0-1.0) k/uL Eosinophils # (0-0.7) k/uL Basophils # (0-0.2) k/uL Sodium (137-145) mmol/L Potassium (3.5-5.1) mmol/L Chloride (98-107) mmol/L Carbon Dioxide (22-30) mmol/L Anion Gap mmol/L BUN (7-17) mg/dL Creatinine (0.52-1.04) mg/dL Est GFR (CKD-EPI)AfAm (>60 ml/min/1.73 sqM) Est GFR (CKD-EPI)NonAf (>60 ml/min/1.73 sqM) Glucose (74-99) mg/dL Plasma Lactic Acid Srinivas 0.7 (0.7-2.0) mmol/L Calcium (8.4-10.2) mg/dL Total Bilirubin (0.2-1.3) mg/dL AST (14-36) U/L ALT (4-34) U/L Alkaline Phosphatase (38-126) U/L Total Protein (6.3-8.2) g/dL Albumin (3.5-5.0) g/dL Amylase (30-110) U/L Lipase (23-300) U/L Urine Color Urine Appearance (Clear) Urine pH (5.0-8.0) Ur Specific [place] (1.001-1.035) Urine Protein (Negative) Urine Glucose (UA) (Negative) Urine Ketones (Negative) Urine Blood (Negative) Urine Nitrite (Negative) Urine Bilirubin (Negative) Urine Urobilinogen (<2.0) mg/dL Ur Leukocyte Esterase (Negative) Urine RBC (0-5) /hpf Urine WBC (0-5) /hpf Ur Squamous Epith Cells (0-4) /hpf Hyaline Casts (0-2) /lpf Urine Mucus (None) /hpf - Radiology Data Radiology results: report reviewed, image reviewed Disposition Clinical Impression: Flank pain Disposition: ADMITTED IP TO THIS HOSP Condition: Stable Is patient prescribed a controlled substance at d/c from ED?: No Time of Disposition: 00:50
[2023-01-26 23:03] LABS: Basophils % (A) 0 %; Eosinophils # (A) 0.2 k/uL (0-0.7); Eosinophils % (A) 3 %; HCT 43.2 % (34.0-46.0); Lymphocytes # (A) 3.5 k/uL (1.0-4.8); Lymphocytes % (A) 40 %; MCH 28.1 pg (25.0-35.0); MCHC 32.5 g/dL (31.0-37.0); MCV 86.6 fL (80.0-100.0); Mean Platelet Volume 7.1; Monocytes # (A) 0.4 k/uL (0-1.0); Monocytes % (A) 4 %; Neutrophils # (A) 4.4 k/uL (1.3-7.7); Neutrophils % (A) 51 %; Platelet Count 321 k/uL (150-450); RBC 4.99 m/uL (3.80-5.40); RDW 13.2 % (11.5-15.5); WBC 8.7 k/uL (3.8-10.6)
[2023-01-26 23:07] LABS: ALT 13 U/L (4-34); AST 19 U/L (14-36); African American GFR (CKD) >90 (>60 ml/min/1.73 sqM); Albumin 4.1 g/dL (3.5-5.0); Alkaline Phosphatase 106 U/L (38-126); Amylase 49 U/L (30-110); Anion Gap 3 mmol/L; Blood Urea Nitrogen 20 mg/dL (7-17); Carbon Dioxide 36 mmol/L (22-30); Chloride 97 mmol/L (98-107); Glucose 101 mg/dL (74-99); Lipase 58 U/L (23-300); Non-African American GFR(CKD) >90 (>60 ml/min/1.73 sqM); Sodium 136 mmol/L (137-145); Total Bilirubin 0.3 mg/dL (0.2-1.3); Total Protein 7.3 g/dL (6.3-8.2)
--- NOTE | 2023-01-26 23:13 | CT ---
EXAM: CT Abdomen and Pelvis Without Intravenous Contrast CLINICAL HISTORY: ITS.REASON CT Reason: flank pain TECHNIQUE: Axial computed tomography images of the abdomen and pelvis without intravenous contrast. CTDI is 15.4 mGy and DLP is 799.4 mGy-cm. This CT exam was performed using one or more of the following dose reduction techniques: automated exposure control, adjustment of the mA and/or kV according to patient size, and/or use of iterative reconstruction technique. COMPARISON: 09/12/21 FINDINGS: Lung bases: Unremarkable. No mass. No consolidation. ABDOMEN: Liver: Hepatomegaly. Calcification right hepatic lobe, possibly on the basis of chronic granulomatous disease. Gallbladder and bile ducts: Cholecystectomy. No biliary dilatation. Pancreas: Unremarkable. No ductal dilation. Spleen: Unremarkable. No splenomegaly. Adrenals: Unremarkable. No mass. Kidneys and ureters: Unremarkable. No obstructing stones. No hydronephrosis. Stomach and bowel: Unremarkable. No mucosal thickening. No bowel obstruction. PELVIS: Appendix: Appendectomy. Bladder: Unremarkable. No stones. Reproductive: Hysterectomy. ABDOMEN and PELVIS: Intraperitoneal space: Unremarkable. No free air. No significant fluid collection. Bones/joints: No acute fracture. No dislocation. Soft tissues: Unremarkable. Vasculature: Atherosclerosis. No abdominal aortic aneurysm. Lymph nodes: Unremarkable. No enlarged lymph nodes. IMPRESSION: No acute findings in the abdomen or pelvis.
[2023-01-27] MEDS ORDERED: HYDROmorphone 1 MG/ML 1 ML SYRINGE IVP STA (00:11)
[2023-01-27] MEDS ORDERED: amLODIPine 10 MG TAB PO STA (01:17)
[2023-01-27] MEDS ORDERED: NALOXONE 0.4 MG/ML 1 ML VIAL IV PRN (02:28)
[2023-01-27] MEDS: HYDROmorphone 1 MG/ML 1 ML SYRINGE IVP PRN ×5 (03:18→21:13)
[2023-01-27] MEDS ORDERED: DICYCLOMINE 10 MG CAP PO PRN (08:57)
[2023-01-27] MEDS ORDERED: hydrOXYzine pamoate 25 MG CAP PO PRN (08:57)
[2023-01-27] MEDS ORDERED: CITALOPRAM HYDROBROMIDE 20 MG TAB PO SCH (09:00)
[2023-01-27] MEDS: HYDROcodone/APAP 5-325MG 1 EACH TAB PO PRN ×2 (09:20→13:22)
[2023-01-27] MEDS: QUEtiapine 100 MG TAB PO SCH (09:21)
[2023-01-27] MEDS: levETIRAcetam 500 MG TAB PO SCH ×2 (09:21→20:05)
[2023-01-27] MEDS: SPIRONOLACTONE 25 MG TAB PO SCH (09:21)
[2023-01-27] MEDS: carvediloL 12.5 MG TAB PO SCH ×2 (09:21→18:36)
[2023-01-27] MEDS: CITALOPRAM HYDROBROMIDE 20 MG TAB PO SCH (09:21)
[2023-01-27] MEDS: oxyCODONE-APAP 10-325MG 1 EACH TAB PO PRN ×2 (10:35→20:05)
[2023-01-27] MEDS: ALBUTEROL NEBULIZED 2.5 MG/3 ML INHALATION SCH ×3 (12:08→20:28)
--- NOTE | 2023-01-27 12:38 | P.GSCN ---
History of Present Illness Consult date: 01/27/23 History of present illness: 48-year-old female admitted the hospital with intractable right flank pain. Patient has multiple medical illnesses and chronic Percocet use for fibromyalgia. She states that over the last 24 hours she has had severe right flank pain that won't go away as well as hematuria and dysuria. She stated that her normal Percocet would not control her discomfort. SHe states that she has a history of stones and has passed many over the years but has never collected any nor has she seen a urologist for surgical intervention. She had a CAT scan during this emergency room visit that did not identify any stones in the kidney or any hydronephrosis. There are no masses in the kidney. She has a normal white count. She has normal vital signs. Her urinalysis showed 22 red for whites and 6 squamous cells. Her creatinine is normal. She does have a bad back and has multiple issues there. She has fibromyalgia rheumatoid arthritis history of a stroke among other illnesses. SHe states that she lost a fair amount of weight in the last year. Review of Systems All systems: negative - Constitutional Denies fever, Denies weight loss - EENT Eyes: denies blurred vision Ears, nose, mouth and throat: Denies dysphagia - Cardiovascular Denies chest pain, Denies shortness of breath - Respiratory Denies cough, Denies 7 - Gastrointestinal Reports as per HPI - Genitourinary Genitourinary: Denies dysuria, Denies hematuria - Integumentary Denies rash, Denies unusual bruising - Neurological Denies headaches, Denies syncope - Hematologic/Lymphatic Denies easy bleeding, Denies easy bruising Past Medical History Past Medical History: Heart Failure, COPD, CVA/TIA, Fibromyalgia, Hypertension, Pneumonia, Rheumatoid Arthritis (RA), Seizure Disorder, Syncope Additional Past Medical History / Comment(s): 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 IBS, cellulitis of the chin, CVA about 1 year ago(no residual) History of Any Multi-Drug Resistant Organisms: MRSA Year Discovered:: 07/2016 MDRO Source:: [facility] Past Surgical History: Appendectomy, Section, Cholecystectomy, Hys terectomy, Tubal Ligation Additional Past Surgical History / Comment(s): oral surgery . Pancreas biopsy May 2015. Past Anesthesia/Blood Transfusion Reactions: No Reported Reaction Past Psychological History: ADD/ADHD, Anxiety, Bipolar, Depression Additional Psychological History / Comment(s): Pt resides with her spouse and other family members. Pt states borderline personality disorder diagnosed around 2010. She has a cane and walker but does not normally use them. Occasional marijuana/edibles Smoking Status: Current every day smoker, Current some day smoker, Vaper Past Alcohol Use History: None Reported Additional Past Alcohol Use History / Comment(s): Pt started smoking in 1983 and was a 3 ppd smoker but about 6 months ago cut down to 3 cigarettes a day. Patient does vape in between Past Drug Use History: Marijuana Additional Drug Use History / Comment(s): Says she occasionally has edible marijuana- a couple times within the last year. - Past Family History Father History Unknown: Yes Family Medical History: No Reported History Additional Family Medical History / Comment(s): Pt adopted Mother History Unknown: Yes Additional Family Medical History / Comment(s): Pt adopted Medications and Allergies Home Medications Medication Instructions Recorded Confirmed Type Spironolactone [Aldactone] 25 mg PO DAILY 02/05/17 01/27/23 History Citalopram Hydrobromide [CeleXA] 40 mg PO DAILY 06/12/19 01/27/23 History Dicyclomine [Bentyl] 10 mg PO QID PRN 05/28/20 01/27/23 History carvediloL [Coreg] 25 mg PO BID 03/26/21 01/27/23 History oxyCODONE-APAP 10-325MG [Percocet 1 tab PO TID PRN 03/16/22 01/27/23 History 10-325 mg] Naloxone HCl [Narcan] 4 mg NASAL ONCE PRN 05/29/22 01/27/23 History QUEtiapine [SEROquel] 100 mg PO DAILY 07/21/22 01/27/23 History QUEtiapine [SEROquel] 150 mg PO HS 07/21/22 01/27/23 History levETIRAcetam [Keppra] 500 mg PO BID 07/21/22 01/27/23 History Albuterol Inhaler [Ventolin Hfa 2 puff INHALATION RT-QID 30 Days 09/27/22 01/27/23 Rx Inhaler] #1 each amLODIPine [Norvasc] 10 mg PO DAILY 30 Days #30 tab 03/13/23 07/13/23 Rx hydrOXYzine pamoate [Vistaril] 50 mg PO Q6H PRN #40 capsule 09/27/22 01/27/23 Rx Citalopram Hydrobromide [CeleXA] 20 mg PO DAILY 01/27/23 01/27/23 History Allergies Allergy/AdvReac Type Severity Reaction Status Date / Time adhesive Allergy Rash/Hives Verified 01/27/23 06:44 amoxicillin Allergy Anaphylaxis Verified 01/27/23 06:44 azithromycin [From Zithromax] Allergy Anaphylaxis Verified 01/27/23 06:44 cephalexin monohydrate Allergy Anaphylaxis Verified 01/27/23 06:44 [From Keflex] ciprofloxacin Allergy Anaphylaxis Verified 01/27/23 06:44 clindamycin Allergy Anaphylaxis Verified 01/27/23 06:44 Iodinated Contrast Media Allergy Anaphylaxis Verified 01/27/23 06:44 [Iodinated Contrast- Oral and IV Dye] ketorolac [From Toradol] Allergy Unknown Verified 01/27/23 06:44 levofloxacin [From Levaquin] Allergy Rash/Hives Verified 01/27/23 06:44 naproxen Allergy Anaphylaxis Verified 01/27/23 06:44 NSAIDS (Non-Steroidal Allergy Rash/Hives Verified 01/27/23 06:44 Anti-Inflamma shellfish derived Allergy Anaphylaxis Verified 01/27/23 06:44 Sulfa (Sulfonamide Allergy Anaphylaxis Verified 01/27/23 06:44 Antibiotics) sulfamethoxazole Allergy Anaphylaxis Verified 01/27/23 06:44 [From Bactrim] tramadol Allergy Unknown Verified 01/27/23 06:44 trimethoprim [From Bactrim] Allergy Anaphylaxis Verified 01/27/23 06:44 Surgical - Exam Vital Signs Temp Pulse Resp BP Pulse Ox 98.4 F 83 19 183/77 97 01/26/23 20:49 01/26/23 20:49 01/26/23 20:49 01/26/23 20:49 01/26/23 20:49 - General well developed, well nourished - Eyes PERRL - ENT no hearing loss - Respiratory normal expansion, normal respiratory effort - Cardiovascular Rhythm: regular - Abdomen She states that right flank palpation is uncomfortable. Abdomen: soft, non tender - Integumentary no rash - Neurologic normal coordination, normal sensation - Musculoskeletal normal posture - Psychiatric oriented to time, oriented to person, oriented to place, speech is normal, memory intact Results - Labs 01/26/23 22:45 01/26/23 22:45 Abnormal Lab Results - Last 24 Hours (Table) 01/26/23 01/26/23 Range/Units 21:07 22:45 Sodium 136 L (137-145) mmol/L Chloride 97 L (98-107) mmol/L Carbon Dioxide 36 H (22-30) mmol/L BUN 20 H (7-17) mg/dL Glucose 101 H (74-99) mg/dL Urine Protein 1+ H (Negative) Urine Blood Moderate H (Negative) Ur Leukocyte Esterase Small H (Negative) Urine RBC 22 H (0-5) /hpf Ur Squamous Epith Cells 6 H (0-4) /hpf Urine Mucus Moderate H (None) /hpf Diabetes panel 01/26/23 Range/Units 22:45 Sodium 136 L (137-145) mmol/L Potassium 4.0 (3.5-5.1) mmol/L Chloride 97 L (98-107) mmol/L Carbon Dioxide 36 H (22-30) mmol/L BUN 20 H (7-17) mg/dL Creatinine 0.67 (0.52-1.04) mg/dL Glucose 101 H (74-99) mg/dL Calcium 9.0 (8.4-10.2) mg/dL AST 19 (14-36) U/L ALT 13 (4-34) U/L Alkaline Phosphatase 106 (38-126) U/L Total Protein 7.3 (6.3-8.2) g/dL Albumin 4.1 (3.5-5.0) g/dL Calcium panel 01/26/23 Range/Units 22:45 Calcium 9.0 (8.4-10.2) mg/dL Albumin 4.1 (3.5-5.0) g/dL Pituitary panel 01/26/23 Range/Units 22:45 Sodium 136 L (137-145) mmol/L Potassium 4.0 (3.5-5.1) mmol/L Chloride 97 L (98-107) mmol/L Carbon Dioxide 36 H (22-30) mmol/L BUN 20 H (7-17) mg/dL Creatinine 0.67 (0.52-1.04) mg/dL Glucose 101 H (74-99) mg/dL Calcium 9.0 (8.4-10.2) mg/dL Adrenal panel 01/26/23 Range/Units 22:45 Sodium 136 L (137-145) mmol/L Potassium 4.0 (3.5-5.1) mmol/L Chloride 97 L (98-107) mmol/L Carbon Dioxide 36 H (22-30) mmol/L BUN 20 H (7-17) mg/dL Creatinine 0.67 (0.52-1.04) mg/dL Glucose 101 H (74-99) mg/dL Calcium 9.0 (8.4-10.2) mg/dL Total Bilirubin 0.3 (0.2-1.3) mg/dL AST 19 (14-36) U/L ALT 13 (4-34) U/L Alkaline Phosphatase 106 (38-126) U/L Total Protein 7.3 (6.3-8.2) g/dL Albumin 4.1 (3.5-5.0) g/dL - Imaging CT scan - abdomen: report reviewed, image reviewed CT scan - pelvis: report reviewed, image reviewed Assessment and Plan Assessment: Impression: Right flank pain of indeterminate etiology. It does not appear to be urologic in that there is no hydronephrosis stones or masses identified. Multiple medical illnesses. Status post cholecystectomy and appendectomy. Irritable bowel, fibromyalgia, rheumatoid arthritis, COPD. Recommendations: At this juncture I do not have a urologic answer for her flank pain. Whether she passes sludge that she interprets as pain because of her poor pain threshold due to chronic narcotic use is indeterminate. From a urologic standpoint there is nothing to be done during this hospital admission. She should have a follow-up urinalysis or her hematuria supposed to make sure that is not bladder origin. Time with Patient: Greater than 30
[2023-01-27] MEDS: SODIUM CHLORIDE 0.9% 1,000 ML IV SCH (15:24)
[2023-01-27] MEDS ORDERED: diphenhydrAMINE 25 MG CAP PO PRN (19:41)
[2023-01-27] MEDS: PANTOPRAZOLE 40 MG/10 ML VIAL IVP SCH (20:07)
[2023-01-27] MEDS: HEPARIN SODIUM,PORCINE/PF 5,000 UNIT/0.5 ML SYRINGE SQ SCH (20:07)
[2023-01-27] MEDS ORDERED: QUEtiapine 100 MG TAB PO SCH (21:00)
--- NOTE | 2023-01-27 21:20 | HP ---
HISTORY AND PHYSICAL CHIEF COMPLAINT: Right flank pain, radiating to the back. HISTORY OF PRESENT ILLNESS: This is a 48-year-old woman with past medical history of multiple medical problems, admitted with back pain and right flank pain. The patient has some hematuria. CT scan did not show any acute abnormality. Patient admitted for further evaluation and treatment. No history of any fever, rigors, or chills. PAST MEDICAL HISTORY: Reviewed, include fibromyalgia, hypertension, pancreatic fibrosis, multiple complex medical issues, history of cirrhosis, rest of the chart and rest of the history is also reviewed. HOME MEDICATIONS: Reviewed include oxycodone, rest of the dose and rest of medications reviewed. ALLERGIES: Reviewed include clindamycin, multiple allergies noted. FAMILY HISTORY: The patient is adopted. SOCIAL HISTORY: Vaping, smoking. REVIEW OF SYSTEMS: A 14-point review of systems negative except as mentioned earlier. PHYSICAL EXAMINATION: VITAL SIGNS: Pulse 82, blood pressure 170/92, respirations 18. HEENT: Conjunctivae normal. NECK: No jugular venous distention. CARDIOVASCULAR: S1, S2. RESPIRATION: Diminished at the basis. ABDOMEN: Soft, severely diffuse tenderness in the right flank area and also right abdomen is obese. Otherwise, no guarding, no rigidity, no masses palpable, no ascites. LEGS: No edema, no swelling. NERVOUS SYSTEM: No focal deficit. LABORATORY DATA: Reviewed. ASSESSMENT: 1. Right flank pain, possibly urolithiasis. 2. Fibromyalgia. 3. Hypertension. 4. Rheumatoid arthritis. 5. History of seizure disorder. 6. COPD. 7. History of CHF. RECOMMENDATIONS AND DISCUSSION: Recommended to continue current management and continue symptomatic treatment. Urology consultation. IV fluids, symptomatic treatment of pain. Urine culture. Guarded prognosis because of multiple complex medical conditions. Further recommendations to follow. See orders for further details. MMODL / IJN: [id number] /
[2023-01-28] MEDS: HYDROmorphone 1 MG/ML 1 ML SYRINGE IVP PRN ×3 (01:45→09:04)
[2023-01-28] MEDS: SODIUM CHLORIDE 0.9% 1,000 ML IV SCH ×2 (01:54→12:12)
[2023-01-28 07:58] VITALS: BP 112/78; RESP 18; TEMP 98.2
[2023-01-28] MEDS: ALBUTEROL NEBULIZED 2.5 MG/3 ML INHALATION SCH ×2 (08:36→12:14)
[2023-01-28 08:49] VITALS: PULSE 84
[2023-01-28] MEDS: SPIRONOLACTONE 25 MG TAB PO SCH (08:56)
[2023-01-28] MEDS: levETIRAcetam 500 MG TAB PO SCH (08:56)
[2023-01-28] MEDS: PANTOPRAZOLE 40 MG/10 ML VIAL IVP SCH (08:56)
[2023-01-28] MEDS: CITALOPRAM HYDROBROMIDE 20 MG TAB PO SCH (08:56)
[2023-01-28] MEDS: carvediloL 12.5 MG TAB PO SCH (08:57)
[2023-01-28] MEDS: HEPARIN SODIUM,PORCINE/PF 5,000 UNIT/0.5 ML SYRINGE SQ SCH (08:57)
[2023-01-28] MEDS: QUEtiapine 100 MG TAB PO SCH (08:57)
[2023-01-28] MEDS ORDERED: amLODIPine 10 MG TAB PO SCH (09:00)
[2023-01-28] MEDS: HYDROcodone/APAP 5-325MG 1 EACH TAB PO PRN (10:52)
[2023-01-28 11:04] LABS: Basophils # (A) 0.03 X 10*3/uL (0.00-0.10); Basophils % (A) 0.4 %; Eosinophils # (A) 0.16 X 10*3/uL (0.04-0.35); Eosinophils % (A) 2.1 %; HCT 36.9 % (37.2-46.3); HGB 10.9 d/dL (12.0-15.0); Lymphocytes # (A) 3.34 X 10*3/uL (0.90-5.00); Lymphocytes % (A) 44.7 %; MCH 26.4 pg (27.0-32.0); MCHC 29.5 d/dL (32.0-37.0); MCV 89.3 FL (80.0-97.0); Mean Platelet Volume 9.8 FL (9.5-12.2); Monocytes % (A) 6.7 %; NRBC Per 100 WBC 0 X 10*3/uL (0.00-0.01); Neutrophils # (A) 3.42 X 10*3/uL (1.80-7.70); Neutrophils % (A) 45.8 %; Platelet Count 284 X 10*3/uL (140-440); RBC 4.13 X 10*6/uL (4.10-5.20); WBC 7.47 X 10*3/uL (4.50-10.00)
[2023-01-28 11:21] LABS: BUN/Creat Ratio 23.71 Ratio (12.00-20.00); Blood Urea Nitrogen 16.6 mg/dL (9.0-27.0); Calcium 8.5 mg/dL (8.7-10.3); Carbon Dioxide 28.8 mmol/L (21.6-31.8); Chloride 104 mmol/L (96-109); Glucose 115 mg/dL (70-110); Potassium 4.7 mmol/L (3.5-5.5); Sodium 141 mmol/L (135-145)
[2023-01-28] MEDS: oxyCODONE-APAP 10-325MG 1 EACH TAB PO PRN (11:42)
--- NOTE | 2023-01-28 15:43 | P.DS ---
Providers Date of admission: 01/27/23 02:13 Expected date of discharge: 01/28/23 Attending physician: Shaneka Anaya Consults: 01/27/23 10:32 Consult Physician Urgent Consulting Provider: Dejon Henley Consult Reason/Comments: right flank pain, hx of stones Do you want consulting provider notified?: Yes Primary care physician: Kaleb Huston [facility] Course: Final diagnosis Right flank pain, possible urolithiasis Fibromyalgia Hypertension history Rheumatoid arthritis History of seizure disorder COPD, not an exacerbation History of CHF, unknown EF Obesity with a BMI of 33.2 GI prophylaxis DVT Proflex is Full code Discharge disposition Patient is being discharged in a stable condition with guarded prognosis to home. Patient will follow-up with Dr. Huston in the outpatient setting upon discharge. Patient is to continue with oral Cefdinir twice daily for the next 5 days and outpatient follow-up with primary care provider as scheduled. Total time taken is greater than 35 minutes. Hospital course This is a 48-year-old female who was recently admitted with back pain and right flank pain noted to have some hematuria. CT abdomen with no acute findings. Patient was seen and evaluated by urology and has been cleared. Patient was instructed to follow-up with primary care provider on discharge and continue drinking plenty of fluids and avoiding pop and caffeinated beverages. Patient reports to feeling improved and will be going home today. Please refer to other consultation note for further HPI. Currently no reports of chest pain, shortness of breath, or palpitations. Patient is afebrile. No reports of nausea or vomiting and patient is tolerating diet. Patient will be discharged home today. Guarded prognosis and high risk for readmission as patient comes to the emergency department very frequently for uncontrolled and chronic pain. Physical exam: Gen: This is a 48-year-old female who is awake, alert and oriented 3, well- developed, well-nourished, obese HEENT: Head is atraumatic, normocephalic. Pupils equal, round. Sclerae is anicteric. NECK: Supple. No JVD. No lymphadenopathy. No thyromegaly. LUNGS: Clear to auscultation. No wheezes or rhonchi. No intercostal retractions. HEART: Regular rate and rhythm. No murmur. ABDOMEN: Soft. Nontender on palpation. Bowel sounds are present. No masses. No tenderness. EXTREMITIES: No pedal edema. No calf tenderness. NEUROLOGICAL: Patient is awake, alert and oriented x3. Cranial nerves 2 through 12 are grossly intact. Please refer to medication reconciliation sheet for a list of medications. The impression and plan of care has been dictated by Naz Iglesias, Nurse Practitioner as directed. Dr. Héctor MD I have performed a history and examination and MDM of this patient, discussed the same with the dictator, and agree with the dictator's assessment and plan as written ,documented as a scribe. Based on total visit time, I have performed more than 50% of the visit. Patient Condition at Discharge: Stable Plan - Discharge Summary Discharge Rx Participant: Yes New Discharge Prescriptions: New Cefdinir 300 mg PO Q12HR 5 Days #10 cap Continue Spironolactone [Aldactone] 25 mg PO DAILY Citalopram Hydrobromide [CeleXA] 40 mg PO DAILY Dicyclomine [Bentyl] 10 mg PO QID PRN PRN Reason: Gi Upset carvediloL [Coreg] 25 mg PO BID QUEtiapine [SEROquel] 100 mg PO DAILY amLODIPine [Norvasc] 10 mg PO DAILY 30 Days #30 tab Citalopram Hydrobromide [CeleXA] 20 mg PO DAILY oxyCODONE-APAP 10-325MG [Percocet 10-325 mg] 1 tab PO TID PRN PRN Reason: Pain Naloxone HCl [Narcan] 4 mg NASAL ONCE PRN PRN Reason: OVERDOSE QUEtiapine [SEROquel] 150 mg PO HS levETIRAcetam [Keppra] 500 mg PO BID Albuterol Inhaler [Ventolin Hfa Inhaler] 2 puff INHALATION RT-QID 30 Days #1 each hydrOXYzine pamoate [Vistaril] 50 mg PO Q6H PRN #40 capsule PRN Reason: Anxiety Discharge Medication List Spironolactone [Aldactone] 25 mg PO DAILY 02/05/17 [History] Citalopram Hydrobromide [CeleXA] 40 mg PO DAILY 06/12/19 [History] Dicyclomine [Bentyl] 10 mg PO QID PRN 05/28/20 [History] carvediloL [Coreg] 25 mg PO BID 03/26/21 [History] oxyCODONE-APAP 10-325MG [Percocet 10-325 mg] 1 tab PO TID PRN 03/16/22 [History] Naloxone HCl [Narcan] 4 mg NASAL ONCE PRN 05/29/22 [History] QUEtiapine [SEROquel] 100 mg PO DAILY 07/21/22 [History] QUEtiapine [SEROquel] 150 mg PO HS 07/21/22 [History] levETIRAcetam [Keppra] 500 mg PO BID 07/21/22 [History] Albuterol Inhaler [Ventolin Hfa Inhaler] 2 puff INHALATION RT-QID 30 Days #1 each 09/27/22 [Rx] amLODIPine [Norvasc] 10 mg PO DAILY 30 Days #30 tab 09/27/22 [Rx] hydrOXYzine pamoate [Vistaril] 50 mg PO Q6H PRN #40 capsule 09/27/22 [Rx] Citalopram Hydrobromide [CeleXA] 20 mg PO DAILY 01/27/23 [History] Cefdinir 300 mg PO Q12HR 5 Days #10 cap 01/28/23 [Rx] Follow up Appointment(s)/Referral(s): Kaleb Huston DO [Primary Care Provider] - 02/11/23 8:45 am Activity/Diet/Wound Care/Special Instructions: Activity Limited until follow-up Follow-up with primary care provider on discharge Continue drinking water and avoid pop and caffeinated beverages Follow-up with urology outpatient Discharge Disposition: HOME SELF-CARE
== END 2023-01-28 12:15 | disposition home or self-care (01) ==
LOC: EC 20:24 → 6NMEDSUR 01-27 02:13 → 5NMEDONC 01-27 07:00 → 6NMEDSUR 01-27 07:01 → 5NMEDONC 01-27 07:02
PROVIDERS: ADMIT Hospitalist; ATTEND Hospitalist
DX: M06.9 Rheumatoid arthritis, unspecified (principal); G40.909 Epilepsy, unspecified, not intractable, without status epilepticus; J44.9 Chronic obstructive pulmonary disease, unspecified; I11.0 Hypertensive heart disease with heart failure; I50.9 Heart failure, unspecified; M79.7 Fibromyalgia; E66.9 Obesity, unspecified; Z68.33 Body mass index [BMI] 33.0-33.9, adult; G89.29 Other chronic pain; M54.9 Dorsalgia, unspecified; K86.89 Other specified diseases of pancreas; K74.60 Unspecified cirrhosis of liver; F17.290 Nicotine dependence, other tobacco product, uncomplicated; Z87.442 Personal history of urinary calculi; Z86.73 Personal history of transient ischemic attack (TIA), and cerebral infarction without residual deficits; Z87.01 Personal history of pneumonia (recurrent); K58.9 Irritable bowel syndrome, unspecified; Z86.14 Personal history of Methicillin resistant Staphylococcus aureus infection; Z90.49 Acquired absence of other specified parts of digestive tract; Z98.891 History of uterine scar from previous surgery; Z90.710 Acquired absence of both cervix and uterus; Z98.51 Tubal ligation status; Z98.890 Other specified postprocedural states; F90.9 Attention-deficit hyperactivity disorder, unspecified type; F41.9 Anxiety disorder, unspecified; F31.9 Bipolar disorder, unspecified; F60.3 Borderline personality disorder; F17.210 Nicotine dependence, cigarettes, uncomplicated; Z79.899 Other long term (current) drug therapy; Z88.6 Allergy status to analgesic agent; Z88.1 Allergy status to other antibiotic agents; Z91.041 Radiographic dye allergy status; Z88.5 Allergy status to narcotic agent; Z88.0 Allergy status to penicillin; Z91.013 Allergy to seafood; Z88.2 Allergy status to sulfonamides; Z91.09 Other allergy status, other than to drugs and biological substances
CPT/HCPCS: 96376 ×3; 96372 ×2; 96375 ×2; 96361; 96374; 99285; 36415; 94640 ×3; 94760 ×2; 80053; 80048; 82150; 83605; 83690; 85025 ×2; 81001; 87040; 87086; 87077; 87186; 74176; G0378 ×3; J2270; J2405; J1170 ×2; C9113 ×2; J1644 ×2

== ENCOUNTER 2023-05-29 18:35 | Inpatient (IN) | payer MEDICARE ==
[2023-05-29] MEDS ORDERED: IPRATROPIUM 0.5 MG/2.5 ML NEBU INHALATION STA ×2 (19:25→22:12)
[2023-05-29] MEDS ORDERED: DEXAMETHASONE SOD PHOSPHATE 10 MG/ML 1 ML VIAL IV STA (19:25)
[2023-05-29] MEDS ORDERED: ALBUTEROL NEBULIZED 2.5 MG/3 ML INHALATION STA ×2 (19:25→22:12)
--- NOTE | 2023-05-29 19:31 | ED ---
General Adult HPI - General Chief complaint: Shortness of Breath Stated complaint: Upper back pain Time Seen by Provider: 05/29/23 18:51 Source: patient Mode of arrival: ambulatory Limitations: no limitations - History of Present Illness Initial comments: Dictation was produced using Recordant dictation software. please excuse any grammatical, word or spelling errors. Chief Complaint: 48-year-old female multiple comorbidities presents to the emergency department for dyspnea, pleuritic chest pain cough and constitutional symptoms. History of Present Illness: Patient is a 40-year-old female she has multiple comorbidities. For the last several days she's been developing shortness of breath, constitutional symptoms, wheezing. She continues to use tobacco. States that she does feel chills or night sweats. Denies any fevers. She has a sharp chest pain in her right lateral chest. States it is sharp worse with deep inspiration and cough. 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 Patient reports she has a history of heart failure as well. Denies any lower shoulder swelling. No history of blood clots. Denies any leg pain or calf pain. The ROS documented in this emergency department record has been reviewed and confirmed by me. Those systems with pertinent positive or negative responses have been documented in the HPI. All other systems are other negative and/or noncontributory. - Related Data Home Medications Medication Instructions Recorded Confirmed Spironolactone [Aldactone] 25 mg PO DAILY 02/05/17 05/29/23 Citalopram Hydrobromide [CeleXA] 40 mg PO DAILY 06/12/19 05/29/23 Dicyclomine [Bentyl] 10 mg PO QID PRN 05/28/20 05/29/23 carvediloL [Coreg] 25 mg PO BID 03/26/21 05/29/23 oxyCODONE-APAP 10-325MG [Percocet 1 tab PO TID PRN 03/16/22 05/29/23 10-325 mg] Naloxone HCl [Narcan] 4 mg NASAL ONCE PRN 05/29/22 05/29/23 QUEtiapine [SEROquel] 100 mg PO DAILY 07/21/22 05/29/23 QUEtiapine [SEROquel] 150 mg PO HS 07/21/22 05/29/23 Citalopram Hydrobromide [CeleXA] 20 mg PO DAILY 01/27/23 05/29/23 Budesonide [Pulmicort] 0.5 mg INHALATION RT-BID 05/29/23 05/29/23 Pantoprazole [Protonix] 40 mg PO DAILY 05/29/23 05/29/23 hydrALAZINE HCL 25 mg PO TID 05/29/23 05/29/23 Previous Rx's Medication Instructions Recorded Albuterol Inhaler [Ventolin Hfa 2 puff INHALATION RT-QID 30 Days 09/27/22 Inhaler] #1 each amLODIPine [Norvasc] 10 mg PO DAILY 30 Days #30 tab 09/27/22 Allergies Allergy/AdvReac Type Severity Reaction Status Date / Time adhesive Allergy Rash/Hives Verified 05/29/23 22:13 amoxicillin Allergy Anaphylaxis Verified 05/29/23 22:13 azithromycin [From Zithromax] Allergy Anaphylaxis Verified 05/29/23 22:13 cephalexin monohydrate Allergy Anaphylaxis Verified 05/29/23 22:13 [From Keflex] ciprofloxacin Allergy Anaphylaxis Verified 05/29/23 22:13 clindamycin Allergy Anaphylaxis Verified 05/29/23 22:13 Iodinated Contrast Media Allergy Anaphylaxis Verified 05/29/23 22:13 [Iodinated Contrast- Oral and IV Dye] ketorolac [From Toradol] Allergy Unknown Verified 05/29/23 22:13 levofloxacin [From Levaquin] Allergy Rash/Hives Verified 05/29/23 22:13 naproxen Allergy Anaphylaxis Verified 05/29/23 22:13 NSAIDS (Non-Steroidal Allergy Rash/Hives Verified 05/29/23 22:13 Anti-Inflamma shellfish derived Allergy Anaphylaxis Verified 05/29/23 22:13 Sulfa (Sulfonamide Allergy Anaphylaxis Verified 05/29/23 22:13 Antibiotics) sulfamethoxazole Allergy Anaphylaxis Verified 05/29/23 22:13 [From Bactrim] tramadol Allergy Unknown Verified 05/29/23 22:13 trimethoprim [From Bactrim] Allergy Anaphylaxis Verified 05/29/23 22:13 Review of Systems ROS Statement: Those systems with pertinent positive or pertinent negative responses have been documented in the HPI. ROS Other: All systems not noted in ROS Statement are negative. 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 IBS, cellulitis of the chin, CVA about 1 year ago(no residual) History of Any Multi-Drug Resistant Organisms: MRSA Date of last positivie culture/infection: 07/2016 MDRO Source:: Chin Past Surgical History: Appendectomy, Section, Cholecystectomy, Hysterectomy, Tubal Ligation Additional Past Surgical History / Comment(s): oral surgery . Pancreas biopsy May 2015. Past Anesthesia/Blood Transfusion Reactions: No Reported Reaction Past Psychological History: ADD/ADHD, Anxiety, Bipolar, Depression Smoking Status: Current every day smoker, Current some day smoker, Vaper Past Alcohol Use History: None Reported Past Drug Use History: Marijuana - Past Family History Father History Unknown: Yes Family Medical History: No Reported History Additional Family Medical History / Comment(s): Pt adopted Mother History Unknown: Yes Additional Family Medical History / Comment(s): Pt adopted General Exam - General Exam Comments Initial Comments: PHYSICAL EXAM: General Impression: Alert and oriented x3, not in acute distress HEENT: Normocephalic atraumatic, extra-ocular movements intact, pupils equal and reactive to light bilaterally, mucous membranes moist. Cardiovascular: Heart regular rate and rhythm Chest: Able to complete full sentences, no retractions, no tachypnea, diffuse lung auscultatory wheezing that is end expiratory Abdomen: abdomen soft, non-tender, non-distended, no organomegaly Musculoskeletal: Pulses present and equal in all extremities, no peripheral edema Motor: no focal deficits noted Neurological: CN II-XII grossly intact, no focal motor or sensory deficits noted Skin: Intact with no visualized rashes Psych: Normal affect and mood Limitations: no limitations Course Vital Signs 05/29/23 05/29/23 05/29/23 18:45 18:53 19:30 Pulse Rate 99 100 Respiratory 18 18 20 Rate Blood Pressure 185/107 157/96 O2 Sat by Pulse 93 L 96 Oximetry Fraction of Inspired Oxygen (FIO2) 05/29/23 05/29/23 05/29/23 19:49 20:00 20:05 Pulse Rate 98 95 96 Respiratory 24 20 Rate Blood Pressure 128/108 135/91 O2 Sat by Pulse 95 97 Oximetry Fraction of Inspired Oxygen (FIO2) 05/29/23 05/29/23 05/29/23 20:30 20:36 21:00 Pulse Rate 96 89 107 H Respiratory 20 20 Rate Blood Pressure 155/109 155/109 O2 Sat by Pulse 100 91 L Oximetry Fraction of Inspired Oxygen (FIO2) 05/29/23 05/29/23 05/29/23 21:07 22:00 22:27 Pulse Rate 105 H 107 H Respiratory 16 20 Rate Blood Pressure 181/82 181/82 O2 Sat by Pulse 93 L 87 L Oximetry Fraction of 28 Inspired Oxygen (FIO2) 05/29/23 22:31 Pulse Rate Respiratory Rate Blood Pressure O2 Sat by Pulse 97 Oximetry Fraction of Inspired Oxygen (FIO2) EKG Findings - EKG Comments: EKG Findings:: My EKG interpretation: Ventricular rate 102, sinus tachycardia,. 137, QRS 86, QTC 44. No DC prolongation, no QTC prolongation, no ST or T-wave changes noted. . Overall, this EKG is unremarkable Medical Decision Making - Medical Decision Making Was pt. sent in by a medical professional or institution (, PA, PHARMACY CONSULTANT, urgent care, hospital, or prison...) When possible be specific @ -No Did you speak to anyone other than the patient for history (EMS, parent, family, police, friend...)? What history was obtained from this source @ -No Did you review nursing and triage notes (agree or disagree)? Why? @ -I reviewed and agree with nursing and triage notes Were old charts reviewed (outside hosp., previous admission, EMS record, old EKG, old radiological studies, urgent care reports/EKG's, prison records)? Report findings @ -No old charts were reviewed Differential Diagnosis (chest pain, altered mental status, abdominal pain women, abdominal pain men, vaginal bleeding, musculoskeletal, weakness, fever, dyspnea, syncope, headache, dizziness, GI bleed, back pain, seizure, CVA, palpatations, mental health)? @ -Differential Dyspnea: Coronary syndrome, arrhythmia, tamponade, asthma, COPD, pulmonary embolism, pneumonia, pneumothorax, pulmonary effusion, anaphylaxis, diabetic ketoacidosis, flailed chest, pulmonary contusion, diaphragmatic rupture, anemia, neuromuscular, this is not meant to be an all-inclusive list. EKG interpreted by me (3pts min.). @ -See above X-rays interpreted by me (1pt min.). @ -Chest x-ray is nonacute CT interpreted by me (1pt min.). @ -None done U/S interpreted by me (1pt. min.). @ -None done What testing was considered but not performed or refused? (CT, X-rays, U/S, labs)? Why? @ -None What meds were considered but not given or refused? Why? @ -None Did you discuss the management of the patient with other professionals (professionals i.e. , PA, PHARMACY CONSULTANT, lab, RT, psych nurse, dialysis social worker, tax director, teacher, risk officer, case coordinator)? Give summary @ -Case discussed with hospitalist for admission Was smoking cessation discussed for >3mins.? @ -No Was critical care preformed (if so, how long)? @ -No Were there social determinants of health that impacted care today? How? (Homelessness, low income, unemployed, alcoholism, drug addiction, transportation, low edu. Level, literacy, decrease access to med. care, shelter, rehab)? @ -No Was there de-escalation of care discussed even if they declined (Discuss DNR or withdrawal of care, Hospice)? DNR status @ -No What co-morbidities impacted this encounter? (DM, HTN, Smoking, COPD, CAD, Cancer, CVA, ARF, Chemo, Hep., AIDS, mental health diagnosis, sleep apnea, morbid obesity)? @ -None Was patient admitted / discharged? Hospital course, mention meds given and route, prescriptions, significant lab abnormalities, [facility]. @ -48-year-old female presents emergency Department chief complaint of dyspnea and pleuritic chest pain. Vital signs upon arrival was tachycardic with oxygenation 93%. Patient's oxygen decreased. Patient placed on supplemental oxygen. Given breathing treatment. She was persistently hypoxic placed on low setting BiPAP. Laboratory evaluation obtained. CBC mental IS UNREMARKABLE. CARDIAC LABS NEGATIVE. VIrAL TESTING NEGATIVE. CHEST X-RAY NONACUTE. PATIENT WILL BE ADMITTED WITH CONSULTATION TO PULMONOLOGY. Undiagnosed new problem with uncertain prognosis? @ -No Drug Therapy requiring intensive monitoring for toxicity (Heparin, Nitro, Insulin, Cardizem)? @ -No Were any procedures done? @ -No Diagnosis/symptom? Acute, or Chronic, or Acute on Chronic? Uncomplicated (without systemic symptoms) or Complicated (systemic symptoms)? @ -hypoxic respiratory failure Side effects of treatment? @ -No Exacerbation, Progression, or Severe Exacerbation? @ -No Poses a threat to life or bodily function? How? (Chest pain, [place], [place], pneumonia, PE, COPD, DKA, ARF, appy, cholecystitis, CVA, Diverticulitis, Homicidal, [place] icidal, threat to staff... and all critical care pts) @ -yes - Lab Data Result diagrams: 05/29/23 19:33 05/29/23 21:45 Lab Results 05/29/23 05/29/23 05/29/23 Range/Units 19:33 19:33 19:33 WBC 9.5 (3.8-10.6) k/uL RBC 5.05 (3.80-5.40) m/uL Hgb 14.4 (11.4-16.0) gm/dL Hct 43.4 (34.0-46.0) % MCV 85.9 (80.0-100.0) fL MCH 28.4 (25.0-35.0) pg MCHC 33.1 (31.0-37.0) g/dL RDW 13.7 (11.5-15.5) % Plt Count 519 H (150-450) k/uL MPV 7.6 Neutrophils % 50 % Lymphocytes % 37 % Monocytes % 8 % Eosinophils % 2 % Basophils % 0 % Neutrophils # 4.8 (1.3-7.7) k/uL Lymphocytes # 3.6 (1.0-4.8) k/uL Monocytes # 0.8 (0-1.0) k/uL Eosinophils # 0.2 (0-0.7) k/uL Basophils # 0.0 (0-0.2) k/uL D-Dimer 0.39 (<0.60) mg/L FEU Sodium (137-145) mmol/L Potassium (3.5-5.1) mmol/L Chloride (98-107) mmol/L Carbon Dioxide (22-30) mmol/L Anion Gap mmol/L BUN (7-17) mg/dL Creatinine (0.52-1.04) mg/dL Est GFR (CKD-EPI)AfAm (>60 ml/min/1.73 sqM) Est GFR (CKD-EPI)NonAf (>60 ml/min/1.73 sqM) Glucose (74-99) mg/dL Calcium (8.4-10.2) mg/dL Total Bilirubin (0.2-1.3) mg/dL AST (14-36) U/L ALT (4-34) U/L Alkaline Phosphatase (38-126) U/L Troponin I <0.012 (0.000-0.034) ng/mL NT-Pro-B Natriuret Pep pg/mL Total Protein (6.3-8.2) g/dL Albumin (3.5-5.0) g/dL Lipase (23-300) U/L Influenza Type A (PCR) (Not Detectd) Influenza Type B (PCR) (Not Detectd) RSV (PCR) (Not Detectd) SARS-CoV-2 (PCR) (Not Detectd) 05/29/23 05/29/23 Range/Units 19:33 21:45 WBC (3.8-10.6) k/uL RBC (3.80-5.40) m/uL Hgb (11.4-16.0) gm/dL Hct (34.0-46.0) % MCV (80.0-100.0) fL MCH (25.0-35.0) pg MCHC (31.0-37.0) g/dL RDW (11.5-15.5) % Plt Count (150-450) k/uL MPV Neutrophils % % Lymphocytes % % Monocytes % % Eosinophils % % Basophils % % Neutrophils # (1.3-7.7) k/uL Lymphocytes # (1.0-4.8) k/uL Monocytes # (0-1.0) k/uL Eosinophils # (0-0.7) k/uL Basophils # (0-0.2) k/uL D-Dimer (<0.60) mg/L FEU Sodium 138 (137-145) mmol/L Potassium 3.4 L (3.5-5.1) mmol/L Chloride 94 L (98-107) mmol/L Carbon Dioxide 35 H (22-30) mmol/L Anion Gap 9 mmol/L BUN 20 H (7-17) mg/dL Creatinine 0.63 (0.52-1.04) mg/dL Est GFR (CKD-EPI)AfAm >90 (>60 ml/min/1.73 sqM) Est GFR (CKD-EPI)NonAf >90 (>60 ml/min/1.73 sqM) Glucose 185 H (74-99) mg/dL Calcium 9.3 (8.4-10.2) mg/dL Total Bilirubin 0.5 (0.2-1.3) mg/dL AST 21 (14-36) U/L ALT 14 (4-34) U/L Alkaline Phosphatase 118 (38-126) U/L Troponin I (0.000-0.034) ng/mL NT-Pro-B Natriuret Pep 82 pg/mL Total Protein 6.8 (6.3-8.2) g/dL Albumin 4.1 (3.5-5.0) g/dL Lipase 40 (23-300) U/L Influenza Type A (PCR) Not Detected (Not Detectd) Influenza Type B (PCR) Not Detected (Not Detectd) RSV (PCR) Not Detected (Not Detectd) SARS-CoV-2 (PCR) Not Detected (Not Detectd) Disposition Clinical Impression: Hypoxic respiratory failure Disposition: ADMITTED IP TO THIS HOSP Condition: Fair Referrals: None,Stated [Primary Care Provider] - 1-2 days Decision Time: 23:00
--- NOTE | 2023-05-29 19:56 | XR ---
EXAMINATION TYPE: XR chest 2V DATE OF EXAM: 05/29/2023 7:33 PM CLINICAL INDICATION:Female, 48 years old with history of dyspnea; [facility] COMPARISON: Chest radiographs from 09/24/2022 TECHNIQUE: XR chest 2V Frontal and lateral views of the chest. FINDINGS: Lungs/Pleura: There is no evidence of pleural effusion, focal consolidation, or pneumothorax. Pulmonary vascularity: Unremarkable. Heart/mediastinum: Cardiomediastinal silhouette is unremarkable. Musculoskeletal: No acute osseous pathology. IMPRESSION: No acute cardiopulmonary disease/process.
[2023-05-29 20:06] LABS: Basophils % (A) 0 %; Eosinophils # (A) 0.2 k/uL (0-0.7); Eosinophils % (A) 2 %; HCT 43.4 % (34.0-46.0); HGB 14.4 gm/dL (11.4-16.0); Lymphocytes # (A) 3.6 k/uL (1.0-4.8); Lymphocytes % (A) 37 %; MCH 28.4 pg (25.0-35.0); MCHC 33.1 g/dL (31.0-37.0); MCV 85.9 fL (80.0-100.0); Mean Platelet Volume 7.6; Monocytes # (A) 0.8 k/uL (0-1.0); Monocytes % (A) 8 %; Neutrophils # (A) 4.8 k/uL (1.3-7.7); Neutrophils % (A) 50 %; Platelet Count 519 k/uL (150-450); RBC 5.05 m/uL (3.80-5.40); RDW 13.7 % (11.5-15.5); WBC 9.5 k/uL (3.8-10.6)
[2023-05-29] MEDS ORDERED: MORPHINE SULFATE 4 MG/ML SYRINGE IV STA (20:51)
[2023-05-29 22:10] LABS: ALT 14 U/L (4-34); African American GFR (CKD) >90 (>60 ml/min/1.73 sqM); Albumin 4.1 g/dL (3.5-5.0); Anion Gap 9 mmol/L; Blood Urea Nitrogen 20 mg/dL (7-17); Calcium 9.3 mg/dL (8.4-10.2); Carbon Dioxide 35 mmol/L (22-30); Chloride 94 mmol/L (98-107); Glucose 185 mg/dL (74-99); Lipase 40 U/L (23-300); Non-African American GFR(CKD) >90 (>60 ml/min/1.73 sqM); Sodium 138 mmol/L (137-145); Total Bilirubin 0.5 mg/dL (0.2-1.3); Total Protein 6.8 g/dL (6.3-8.2)
[2023-05-29 22:13] LABS: AST 21 U/L (14-36); Alkaline Phosphatase 118 U/L (38-126); Potassium 3.4 mmol/L (3.5-5.1)
[2023-05-29 22:19] LABS: NT-Pro-B-Type Natriuretic Pept 82 pg/mL
[2023-05-29] MEDS ORDERED: NALOXONE 0.4 MG/ML 1 ML VIAL IVP PRN (23:09)
[2023-05-29] MEDS: DOXYCYCLINE 100 MG CAP PO SCH (23:29)
[2023-05-30] MEDS ORDERED: BUDESONIDE 0.5 MG/2 ML NEBU INHALATION SCH (00:28)
[2023-05-30] MEDS ORDERED: TEMAZEPAM 15 MG CAP PO PRN (00:29)
[2023-05-30] MEDS ORDERED: ACETAMINOPHEN TAB 325 MG TAB PO PRN (00:29)
[2023-05-30] MEDS ORDERED: ONDANSETRON 4 MG/2 ML VIAL IVP PRN (00:29)
[2023-05-30] MEDS ORDERED: IPRATROPIUM-ALBUTEROL 3 ML NEB INHALATION PRN (01:24)
[2023-05-30] MEDS: hydrALAZINE HCL 25 MG TAB PO SCH ×4 (01:31→21:35)
[2023-05-30] MEDS: QUEtiapine 50 MG TAB PO SCH ×2 (01:31→21:35)
[2023-05-30] MEDS: carvediloL 12.5 MG TAB PO SCH ×3 (01:32→17:31)
[2023-05-30] MEDS: oxyCODONE-APAP 10-325MG 1 EACH TAB PO PRN ×3 (01:33→14:50)
[2023-05-30] MEDS: ALPRAZolam 0.25 MG TAB PO PRN ×3 (01:33→16:30)
--- NOTE | 2023-05-30 02:09 | P.HPIM ---
History of Present Illness H&P Date: 05/29/23 Chief Complaint: shortness of breath 48 year old female with COPD , chronic hypoxic respiratory failure on home oxygen 2 L NC she is coming in with sudden worsening shortness of breath around 3 pm today , not improving with home inhalers and supplemental oxygen , she was getting in crease wheezing , tightness in the chest and right pleuritic chest pain. denies any fever, chills, she reports that with recent change of weather, she has been having waxing and waning symptoms over the past couple weeks. but today it got worse, and was SOB even at rest with wheezing. she reports URI symptoms with runny nose, feeling tired and productive cough yellowish sputum . denies any hemoptysis , bleeding , denies any history of heart attack or blood clots. she was recently treated for pneumonia at [facility] about a month ago. upon arrival to the ED , she continued to be hypoxic despite spplemental oxygen and inhalers. she eventually was placed on bipap. she admits to smoking, however cut back from 3 packs daily to 3 cig daily , denies any heavy alcohol , she does admit to edibles review of systems Pertinent positives as noted in HPI. All other systems were reviewed and are negative on exam Constitutional: No acute distress, conversant, pleasant Eyes: Anicteric sclerae, moist conjunctiva, Pupils equal round reactive to light ENMT: NC/AT Oropharynx clear, no erythema, or exudates Neck: Supple, no masses, or JVD No carotid bruits No thyromegaly Lungs: diminished breath sounds , with diffuse expiratory wheezing Clear to percussion Normal respiratory effort, no accessory muscle use Cardiovascular: Heart regular in rate and rhythm, No murmurs, gallops, or rubs No peripheral edema Abdominal: Soft Nontender, no guarding, rebound or rigidity Abdomen moving with respiration Normoactive bowel sounds No hepatomegaly, No splenomegaly No palpable mass No abdominal wall hernia noted Extremities: No digital cyanosis No clubbing Pedal pulses intact and symmetrical Radial pulses intact and symmetrical No calf tenderness Psychiatric: Alert and oriented to person, place and time Appropriate affect fair judgement Neuro Muscles Strength 5/5 in all 4 extremities Sensation to light touch grossly present throughout Cranial nerves II-XII grossly intact Lymphatics: no palpable cervical or supraclavicular lymph nodes Past Medical History Past Medical History: Heart Failure, COPD, CVA/TIA, Fibromyalgia, Hypertension, Pneumonia, Rheumatoid Arthritis (RA), Seizure Disorder, Syncope Additional Past Medical History / Comment(s): 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 IBS, cellulitis of the chin, CVA about 1 year ago(no residual) History of Any Multi-Drug Resistant Organisms: MRSA Date of last positivie culture/infection: 07/2016 MDRO Source:: Chin Past Surgical History: Appendectomy, Section, Cholecystectomy, Hysterectomy, Tubal Ligation Additional Past Surgical History / Comment(s): oral surgery . Pancreas biopsy May 2015. Past Anesthesia/Blood Transfusion Reactions: No Reported Reaction Past Psychological History: ADD/ADHD, Anxiety, Bipolar, Depression Smoking Status: Current every day smoker, Current some day smoker, Vaper Past Alcohol Use History: None Reported Past Drug Use History: Marijuana - Past Family History Father History Unknown: Yes Family Medical History: No Reported History Additional Family Medical History / Comment(s): Pt adopted Mother History Unknown: Yes Additional Family Medical History / Comment(s): Pt adopted Medications and Allergies Home Medications Medication Instructions Recorded Confirmed Type Spironolactone [Aldactone] 25 mg PO DAILY 02/05/17 05/29/23 History Citalopram Hydrobromide [CeleXA] 40 mg PO DAILY 06/12/19 05/29/23 History Dicyclomine [Bentyl] 10 mg PO QID PRN 05/28/20 05/29/23 History carvediloL [Coreg] 25 mg PO BID 03/26/21 05/29/23 History oxyCODONE-APAP 10-325MG [Percocet 1 tab PO TID PRN 03/16/22 05/29/23 History 10-325 mg] Naloxone HCl [Narcan] 4 mg NASAL ONCE PRN 05/29/22 05/29/23 History QUEtiapine [SEROquel] 100 mg PO DAILY 07/21/22 05/29/23 History QUEtiapine [SEROquel] 150 mg PO HS 07/21/22 05/29/23 History Albuterol Inhaler [Ventolin Hfa 2 puff INHALATION RT-QID 30 Days 09/27/22 05/29/23 Rx Inhaler] #1 each amLODIPine [Norvasc] 10 mg PO DAILY 30 Days #30 tab 09/27/22 05/29/23 Rx Citalopram Hydrobromide [CeleXA] 20 mg PO DAILY 01/27/23 05/29/23 History Budesonide [Pulmicort] 0.5 mg INHALATION RT-BID 05/29/23 05/29/23 History Pantoprazole [Protonix] 40 mg PO DAILY 05/29/23 05/29/23 History hydrALAZINE HCL 25 mg PO TID 05/29/23 05/29/23 History Allergies Allergy/AdvReac Type Severity Reaction Status Date / Time adhesive Allergy Rash/Hives Verified 05/29/23 22:13 amoxicillin Allergy Anaphylaxis Verified 05/29/23 22:13 azithromycin [From Zithromax] Allergy Anaphylaxis Verified 05/29/23 22:13 cephalexin monohydrate Allergy Anaphylaxis Verified 05/29/23 22:13 [From Keflex] ciprofloxacin Allergy Anaphylaxis Verified 05/29/23 22:13 clindamycin Allergy Anaphylaxis Verified 05/29/23 22:13 Iodinated Contrast Media Allergy Anaphylaxis Verified 05/29/23 22:13 [Iodinated Contrast- Oral and IV Dye] ketorolac [From Toradol] Allergy Unknown Verified 05/29/23 22:13 levofloxacin [From Levaquin] Allergy Rash/Hives Verified 05/29/23 22:13 naproxen Allergy Anaphylaxis Verified 05/29/23 22:13 NSAIDS (Non-Steroidal Allergy Rash/Hives Verified 05/29/23 22:13 Anti-Inflamma shellfish derived Allergy Anaphylaxis Verified 05/29/23 22:13 Sulfa (Sulfonamide Allergy Anaphylaxis Verified 05/29/23 22:13 Antibiotics) sulfamethoxazole Allergy Anaphylaxis Verified 05/29/23 22:13 [From Bactrim] tramadol Allergy Unknown Verified 05/29/23 22:13 trimethoprim [From Bactrim] Allergy Anaphylaxis Verified 05/29/23 22:13 Physical Exam Vitals: Vital Signs Pulse Resp BP Pulse Ox FiO2 05/29/23 23:00 99 18 144/64 97 05/29/23 22:31 97 05/29/23 22:27 28 05/29/23 22:00 107 H 20 181/82 87 L 05/29/23 21:07 105 H 16 181/82 93 L 05/29/23 21:00 107 H 20 155/109 91 L 05/29/23 20:36 89 05/29/23 20:30 96 20 155/109 100 05/29/23 20:05 96 05/29/23 20:00 95 20 135/91 97 05/29/23 19:49 98 24 128/108 95 05/29/23 19:30 100 20 157/96 96 05/29/23 18:53 18 05/29/23 18:45 99 18 185/107 93 L Intake and Output 05/29/23 05/29/23 05/30/23 14:59 22:59 06:59 Other: Weight 76.204 kg Results CBC & Chem 7: 05/29/23 19:33 05/29/23 21:45 Labs: Abnormal Lab Results - Last 24 Hours (Table) 05/29/23 05/29/23 Range/Units 19:33 21:45 Plt Count 519 H (150-450) k/uL Potassium 3.4 L (3.5-5.1) mmol/L Chloride 94 L (98-107) mmol/L Carbon Dioxide 35 H (22-30) mmol/L BUN 20 H (7-17) mg/dL Glucose 185 H (74-99) mg/dL Assessment and Plan Assessment: 48 year old female with COPD on home oxygen coming with worsening SOB, I discussed the case with ED doc and I accepted the admission for acute COPD exacerbation with anticipated length of stay > 2 midnights acute on chronic hypoxic respiratory failure acute COPD exacerbation CXR no acute pathology acute respiratory viral panel negative for COVID , RSV, influenza d dimer negative supplmental oxygen as needed systemic IV steroids with methylprednisolon 60 mg IVP q 6 hr duoneb scheduled and PRN doxycycline 100 mg PO BID resume home inhaler symbicort monitor vital signs pulmonary consult trops negative EKG no acute ST changes blood work unremarkable BUN 20 cr 0.68 Na 138 , K 3,4 WBC 9, Hgb 14 chronic conditions hypertension resume amlodipine and coreg , hydralazine full code GI PPX PPI DVT on lovenox sc 40 mg daily
--- NOTE | 2023-05-30 05:43 | P.CNPUL ---
History of Present Illness Consult date: 05/30/23 Requesting physician: Jayro Brown Reason for consult: COPD Chief complaint: Shortness of breath and right lateral chest pain History of present illness: I am seeing this patient in new consultation today 05/30/2023 for suspected acute COPD exacerbation. Patient is a 48-year-old female with past medical history significant for COPD, chronic ongoing tobacco dependence, congestive heart failure, hypertension, CVA/TIA, rheumatoid arthritis, fibromyalgia, among other things. She does not have an established primary care provider. Patient presented to the emergency room last night complaining of right lateral wall back/chest pain radiating underneath her right breast. This is associated with coughing and deep breathing. Patient states that she's had progressively worsening shortness of breath for the last 2 weeks. This is been associated with a persistent cough with yellow sputum production. She also reports a fever of 101F at home. Apparently, the patient was quite dyspneic on arrival, and was placed on a BiPAP with settings of 10/5 and FiO2 28%. This is currently on sta ndby. The patient is on room air. She's eating and quite comfortable. Chest x-ray did not show any acute cardiopulmonary process. D-dimer not elevated. EKG showed sinus tachycardia without any obvious acute ischemic changes. Troponins not elevated. NT proBNP level. CBC on arrival unremarkable. No leukocytosis. Negative for influenza, RSV, COVID-19. BMP shows sodium 138, potassium 3.4, chloride 94, serum bicarbonate 35, BUN 20, creatinine 0.63, glucose 185. Patient has been started on a combination of Symbicort inhaler, DuoNeb's, and IV Solu-Medrol. Also, doxycycline was added empirically. Currently afebrile. Hemodynamically, the patient appears stable, and is being monitored on the cardiac stepdown unit. Review of Systems REVIEW OF SYSTEMS: CONSTITUTIONAL: Denies any recent significant weight loss or weight gain. Admits fever as reported in HPI EYES: Denies change in vision. EARS, NOSE, MOUTH, THROAT: Denies headaches, denies sore throat. CARDIOVASCULAR: Denies heart palpitations, lightheadedness, syncopal episodes or extremity swelling, orthopnea. RESPIRATORY: See HPI. GASTROINTESTINAL: Denies change in appetite, abdominal pain, vomiting, or diarrhea. Admits nausea but is currently eating GENITOURINARY: Denies hematuria, denies infections. MUSKULOSKELETAL: Denies pain, denies swelling. Admits pleuritic right-sided chest pain. Denies trauma INTEGUMENTARY: Denies rash, denies eczema. NEUROLOGICAL: Denies recent memory loss, no recent seizure activity. PSYCHIATRIC: Admits anxiety/depression. 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 IBS, cellulitis of the chin, CVA about 1 year ago(no residual) History of Any Multi-Drug Resistant Organisms: MRSA Date of last positivie culture/infection: 07/2016 MDRO Source:: Chin Past Surgical History: Appendectomy, Section, Cholecystectomy, Hysterectomy, Tubal Ligation Additional Past Surgical History / Comment(s): oral surgery . Pancreas biopsy May 2015. Past Anesthesia/Blood Transfusion Reactions: No Reported Reaction Past Psychological History: ADD/ADHD, Anxiety, Bipolar, Depression Smoking Status: Current every day smoker, Current some day smoker, Vaper Past Alcohol Use History: None Reported Past Drug Use History: Marijuana - Past Family History Father History Unknown: Yes Family Medical History: No Reported History Additional Family Medical History / Comment(s): Pt adopted Mother History Unknown: Yes Additional Family Medical History / Comment(s): Pt adopted Medications and Allergies Home Medications Medication Instructions Recorded Confirmed Type Spironolactone [Aldactone] 25 mg PO DAILY 02/05/17 05/29/23 History Citalopram Hydrobromide [CeleXA] 40 mg PO DAILY 06/12/19 05/29/23 History Dicyclomine [Bentyl] 10 mg PO QID PRN 05/28/20 05/29/23 History carvediloL [Coreg] 25 mg PO BID 03/26/21 05/29/23 History oxyCODONE-APAP 10-325MG [Percocet 1 tab PO TID PRN 03/16/22 05/29/23 History 10-325 mg] Naloxone HCl [Narcan] 4 mg NASAL ONCE PRN 05/29/22 05/29/23 History QUEtiapine [SEROquel] 100 mg PO DAILY 07/21/22 05/29/23 History QUEtiapine [SEROquel] 150 mg PO HS 07/21/22 05/29/23 History Albuterol Inhaler [Ventolin Hfa 2 puff INHALATION RT-QID 30 Days 09/27/22 05/29/23 Rx Inhaler] #1 each amLODIPine [Norvasc] 10 mg PO DAILY 30 Days #30 tab 09/27/22 05/29/23 Rx Citalopram Hydrobromide [CeleXA] 20 mg PO DAILY 01/27/23 05/29/23 History Budesonide [Pulmicort] 0.5 mg INHALATION RT-BID 05/29/23 05/29/23 History Pantoprazole [Protonix] 40 mg PO DAILY 05/29/23 05/29/23 History hydrALAZINE HCL 25 mg PO TID 05/29/23 05/29/23 History Allergies Allergy/AdvReac Type Severity Reaction Status Date / Time adhesive Allergy Rash/Hives Verified 05/29/23 22:13 amoxicillin Allergy Anaphylaxis Verified 05/29/23 22:13 azithromycin [From Zithromax] Allergy Anaphylaxis Verified 05/29/23 22:13 cephalexin monohydrate Allergy Anaphylaxis Verified 05/29/23 22:13 [From Keflex] ciprofloxacin Allergy Anaphylaxis Verified 05/29/23 22:13 clindamycin Allergy Anaphylaxis Verified 05/29/23 22:13 Iodinated Contrast Media Allergy Anaphylaxis Verified 05/29/23 22:13 [Iodinated Contrast- Oral and IV Dye] ketorolac [From Toradol] Allergy Unknown Verified 05/29/23 22:13 levofloxacin [From Levaquin] Allergy Rash/Hives Verified 05/29/23 22:13 naproxen Allergy Anaphylaxis Verified 05/29/23 22:13 NSAIDS (Non-Steroidal Allergy Rash/Hives Verified 05/29/23 22:13 Anti-Inflamma shellfish derived Allergy Anaphylaxis Verified 05/29/23 22:13 Sulfa (Sulfonamide Allergy Anaphylaxis Verified 05/29/23 22:13 Antibiotics) sulfamethoxazole Allergy Anaphylaxis Verified 05/29/23 22:13 [From Bactrim] tramadol Allergy Unknown Verified 05/29/23 22:13 trimethoprim [From Bactrim] Allergy Anaphylaxis Verified 05/29/23 22:13 Physical Exam Vitals: Vital Signs Temp Pulse Pulse Resp BP BP Pulse Ox 05/30/23 04:41 05/30/23 04:00 98.2 F 77 18 120/73 96 05/30/23 02:00 98 05/30/23 01:00 05/30/23 00:29 97 05/30/23 00:00 98.1 F 90 20 136/68 94 L 05/29/23 23:00 99 18 144/64 97 05/29/23 22:31 97 05/29/23 22:27 05/29/23 22:00 107 H 20 181/82 87 L 05/29/23 21:07 105 H 16 181/82 93 L 05/29/23 21:00 107 H 20 155/109 91 L 05/29/23 20:36 89 05/29/23 20:30 96 20 155/109 100 05/29/23 20:05 96 05/29/23 20:00 95 20 135/91 97 05/29/23 19:49 98 24 128/108 95 05/29/23 19:30 100 20 157/96 96 05/29/23 18:53 18 05/29/23 18:45 99 18 185/107 93 L FiO2 05/30/23 04:41 28 05/30/23 04:00 05/30/23 02:00 05/30/23 01:00 28 05/30/23 00:29 05/30/23 00:00 05/29/23 23:00 05/29/23 22:31 05/29/23 22:27 28 05/29/23 22:00 05/29/23 21:07 05/29/23 21:00 05/29/23 20:36 05/29/23 20:30 05/29/23 20:05 05/29/23 20:00 05/29/23 19:49 05/29/23 19:30 05/29/23 18:53 05/29/23 18:45 Intake and Output 05/29/23 05/29/23 05/30/23 14:59 22:59 06:59 Other: Voiding Method Toilet # Voids 1 Weight 76.204 kg 76.204 kg GENERAL EXAM: Alert, 48-year-old obese white female, comfortable in no apparent distress. HEAD: Normocephalic and atraumatic EYES: Normal reaction of pupils, equal size. NOSE: Clear with pink turbinates. THROAT: No erythema or exudates. NECK: No masses, no JVD. CHEST: No chest wall deformity. Grimacing with palpation of right lateral chest. No crepitus or subcutaneous emphysema LUNGS: Equal air entry with expiratory wheezes heard throughout. No crackles, rhonchi, focal dullness. On room air. No conversational dyspnea or accessory muscle use.. CVS: S1 and S2 normal with no audible murmur, regular rhythm. No extra heart sounds ABDOMEN: No hepatosplenomegaly, active bowel sounds, no guarding or rigidity. SPINE: No scoliosis or deformity SKIN: No rashes CENTRAL NERVOUS SYSTEM: No focal deficits, tone is normal in all 4 extremities. EXTREMITIES: There is no peripheral edema, clubbing, or cyanosis. Peripheral pulses are intact. Results - Laboratory Findings CBC and BMP: 05/29/23 19:33 05/29/23 21:45 PT/INR, D-dimer D-Dimer 0.39 mg/L FEU (<0.60) 05/29/23 19:33 Abnormal lab findings: Abnormal Labs 05/29/23 05/29/23 19:33 21:45 Plt Count 519 H Potassium 3.4 L Chloride 94 L Carbon Dioxide 35 H BUN 20 H Glucose 185 H - Diagnostic Findings Chest x-ray: image reviewed Assessment and Plan Assessment: Acute COPD exacerbation possibly secondary to acute tracheobronchitis, chest x- ray showed no acute cardiopulmonary process. Negative for influenza, RSV, CO VID-19. Acute on chronic hypoxemic respiratory failure, secondary to above, improved COPD maintained on Symbicort and albuterol as needed and she has home 02 at 2 liters/min Possible costochondritis Chronic and ongoing tobacco dependence, down to 3 cigarettes per day Hypertension Chronic pain and fibromyalgia History of anxiety/depression Plan: Patient's medications, labs and chest x-ray reviewed Currently on room air Continue combination of Symbicort inhaler, DuoNeb's around the clock, and IV Solu-Medrol Continue empiric antibiotic and check procalcitonin level Smoking cessation counseling performed Nicotine replacement offered Home pain medications reordered We will continue to follow I have personally seen and examined the patient, performed the documentation and the assessment and plan as written. Number of minutes spent on the visit:20 Joint evaluation that was done along with a nurse practitioner. His ventilation within a more than 30 minutes. The patient is known to have COPD. She was has less for an acute COPD exacerbation. Currently she is smoking about 3 cigarettes a day. She was supported with a BiPAP at a pressure of 10/5 cm of water and currently she is off the BiPAP on 2 L of oxygen nasal cannula. No altered mentation. No chest pain. Shortness of breath is improved compared to yesterday. She was febrile at home and currently she is afebrile. Chest x-ray shows no acute pneumonia. She's been maintained on Symbicort at home in addition to albuterol updrafts. She also has oxygen and a nebulizer with DuoNeb. I agree on the current treatment. We'll continue same treatment for now. Home medications have been resumed. Time with Patient: Greater than 30
[2023-05-30] MEDS: methylPREDNISolone SOD SUCCI 125 MG/2 ML VIAL IV SCH ×4 (06:41→23:51)
[2023-05-30] MEDS: IPRATROPIUM-ALBUTEROL 3 ML NEB INHALATION SCH ×4 (08:36→21:18)
[2023-05-30] MEDS: SYMBICORT 160-4.5 MCG INHALER INHALATION SCH ×2 (08:36→21:18)
[2023-05-30] MEDS: ENOXAPARIN 40 MG/0.4 ML SYRINGE SQ SCH (09:30)
[2023-05-30] MEDS: PANTOPRAZOLE 40 MG TABLET PO SCH (09:30)
[2023-05-30] MEDS: CITALOPRAM HYDROBROMIDE 20 MG TAB PO SCH (09:30)
[2023-05-30] MEDS: SPIRONOLACTONE 25 MG TAB PO SCH (09:30)
[2023-05-30] MEDS: amLODIPine 10 MG TAB PO SCH (09:30)
[2023-05-30] MEDS: DOXYCYCLINE 100 MG CAP PO SCH ×2 (09:31→21:35)
[2023-05-30] MEDS: NICOTINE 14MG/24HR PATCH TRANSDERM SCH (09:35)
--- NOTE | 2023-05-30 11:03 | P.PN ---
Subjective Progress Note Date: 05/30/23 48 year old female with COPD, chronic hypoxic respiratory failure on home oxygen 2 L NC, CVA, Fibromyalgia, RA, Seizure disorder, smoker presents to the ED for sudden onset SOB. Reports wheezing, right pleuritic chest pain, URI like symptoms (rhinorrhea, malaise, cough productive of yellow sputum). This prompted her to come to the ED. In the ED, she underwent extensive evaluation. She was 87% on 2L NC requiring BiPAP. Tachycardic with HR in the 100s. CBC Plt count 519. D-Dimer 0.39. CMP K 3.4, Cl 94, bicarb 35, BUN 20, glucose 185. Troponin < 0.012. Lipase negative. COVID, RSV, Flu negative. EKG sinus tachycardia. CXR negative for acute process. Patient was admitted for COPD exacerbation. 05/30 Patient was seen and examined. Saturating well on 2L O2. Still complains of shortness of breath and chest tightness. Currently on bronchodilators and SoluMedrol. BMP and Procal pending from this morning. General: non toxic, no distress, appears at stated age Derm: warm, dry Head: atraumatic, normocephalic, symmetric Eyes: EOMI, no lid lag, anicteric sclera Cardiovascular: Tachycardic, no murmur Lungs: Scattered expiratory wheezing bilateral, no rhonchi, no rales, no accessory muscle use Ext: no gross muscle atrophy, no edema, no contractures Neuro: no focal neuro deficits Psych: Alert, oriented, appropriate affect Based on my assessment of this patient, this patient meets a moderate complexity level of care. Patient has a history of COPD with severe exacerbation or progression of disease which poses a threat to life or bodily function. Asthma/COPD exacerbation Acute on chronic hypoxic hypercapnic respiratory failure Bronchodilators: DuoNeb 0.5mg-3mg/3ml scheduled and as needed for SOB and wheezing. Symbicort INH BID. Pulmicort INH BID. Antibiotics: Doxycycline 100 mg PO BID. Steroids: SoluMedrol 60 mg IV Q6H. Supplemental oxygen to maintain O2 > 92%. Pulmonology consult. Hypokalemia: Repeat BMP pending this morning. Chronic conditions: CVA, Fibromyalgia, RA, Seizure disorder CODE STATUS: FULL CODE DVT Prophylaxis: Lovenox SQ GI Prophylaxis: Protonix PO Designated medical POA if patient is not able to make medical decisions for themselves: I have reviewed the following senior staff consultant notes: Pulm note. I have reviewed the results of the following tests: I have ordered the following tests: BMP pending. I have discussed the care of this patient with the following independent historian: I have independently interpreted the following test below: I have discussed the management of this patient with the following physician: Discussed with Dr. Milligan. Objective - Vital Signs Vital signs: Vital Signs Temp 98.2 F 05/30/23 04:00 Pulse 90 05/30/23 08:52 Resp 18 05/30/23 04:00 BP 120/73 05/30/23 04:00 Pulse Ox 96 05/30/23 08:39 FiO2 28 05/30/23 04:41 Intake & Output 05/29/23 05/30/23 05/30/23 18:59 06:59 18:59 Intake Total 118 Balance 118 Weight 76.204 kg 76.204 kg Intake: Oral 118 Other: Voiding Method Toilet # Voids 1 - Labs CBC & Chem 7: 05/29/23 19:33 05/29/23 21:45 Labs: Abnormal Lab Results - Last 24 Hours (Table) 05/29/23 05/29/23 Range/Units 19:33 21:45 Plt Count 519 H (150-450) k/uL Potassium 3.4 L (3.5-5.1) mmol/L Chloride 94 L (98-107) mmol/L Carbon Dioxide 35 H (22-30) mmol/L BUN 20 H (7-17) mg/dL Glucose 185 H (74-99) mg/dL
[2023-05-30 11:09] LABS: African American GFR (CKD) >90 (>60 ml/min/1.73 sqM); Anion Gap 9 mmol/L; Blood Urea Nitrogen 25 mg/dL (7-17); Calcium 9.2 mg/dL (8.4-10.2); Carbon Dioxide 34 mmol/L (22-30); Chloride 93 mmol/L (98-107); Glucose 150 mg/dL (74-99); Magnesium 1.5 mg/dL (1.6-2.3); Non-African American GFR(CKD) >90 (>60 ml/min/1.73 sqM); Potassium 4.2 mmol/L (3.5-5.1); Sodium 136 mmol/L (137-145)
[2023-05-30] MEDS: MORPHINE SULFATE 2 MG/ML SYRINGE IVP PRN ×3 (11:30→21:35)
[2023-05-31] MEDS: MORPHINE SULFATE 2 MG/ML SYRINGE IVP PRN ×6 (00:57→21:42)
[2023-05-31] MEDS: methylPREDNISolone SOD SUCCI 125 MG/2 ML VIAL IV SCH ×4 (05:48→23:48)
[2023-05-31] MEDS: oxyCODONE-APAP 10-325MG 1 EACH TAB PO PRN ×3 (05:49→23:48)
[2023-05-31] MEDS: carvediloL 12.5 MG TAB PO SCH ×2 (05:49→17:24)
[2023-05-31] MEDS: ALPRAZolam 0.25 MG TAB PO PRN ×3 (05:54→20:45)
[2023-05-31] MEDS: SYMBICORT 160-4.5 MCG INHALER INHALATION SCH ×2 (08:14→21:17)
[2023-05-31] MEDS: IPRATROPIUM-ALBUTEROL 3 ML NEB INHALATION SCH ×4 (08:14→21:17)
[2023-05-31] MEDS: DOXYCYCLINE 100 MG CAP PO SCH ×2 (09:11→20:45)
[2023-05-31] MEDS: SPIRONOLACTONE 25 MG TAB PO SCH (09:11)
[2023-05-31] MEDS: amLODIPine 10 MG TAB PO SCH (09:11)
[2023-05-31] MEDS: CITALOPRAM HYDROBROMIDE 20 MG TAB PO SCH (09:11)
[2023-05-31] MEDS: PANTOPRAZOLE 40 MG TABLET PO SCH (09:11)
[2023-05-31] MEDS: NICOTINE 14MG/24HR PATCH TRANSDERM SCH (09:11)
[2023-05-31] MEDS: ENOXAPARIN 40 MG/0.4 ML SYRINGE SQ SCH (09:11)
[2023-05-31] MEDS: hydrALAZINE HCL 25 MG TAB PO SCH ×3 (09:11→20:45)
--- NOTE | 2023-05-31 11:21 | P.PN ---
Subjective Progress Note Date: 05/31/23 I am seeing this patient in new consultation today 05/30/2023 for suspected acute COPD exacerbation. Patient is a 48-year-old female with past medical history significant for COPD, chronic ongoing tobacco dependence, congestive heart failure, hypertension, CVA/TIA, rheumatoid arthritis, fibromyalgia, among other things. She does not have an established primary care provider. Patient presented to the emergency room last night complaining of right lateral wall back/chest pain radiating underneath her right breast. This is associated with coughing and deep breathing. Patient states that she's had progressively worsening shortness of breath for the last 2 weeks. This is been associated with a persistent cough with yellow sputum production. She also reports a fever of 101F at home. Apparently, the patient was quite dyspneic on arrival, and was placed on a BiPAP with settings of 10/5 and FiO2 28%. This is currently on standby. The patient is on room air. She's eating and quite comfortable. Chest x-ray did not show any acute cardiopulmonary process. D-dimer not elevated. EKG showed sinus tachycardia without any obvious acute ischemic changes. Troponins not elevated. NT proBNP level. CBC on arrival unremarkable. No leukocytosis. Negative for influenza, RSV, COVID-19. BMP s hows sodium 138, potassium 3.4, chloride 94, serum bicarbonate 35, BUN 20, creatinine 0.63, glucose 185. Patient has been started on a combination of Symbicort inhaler, DuoNeb's, and IV Solu-Medrol. Also, doxycycline was added empirically. Currently afebrile. Hemodynamically, the patient appears stable, and is being monitored on the cardiac stepdown unit. On today's evaluation of 05/31/2023, the patient is feeling the same, the patient remains spastic and wheezing. Her COPD remains on the acute exacerbation. She is on doxycycline. She is also on DuoNeb updrafts, IV Solu- Medrol 60 mg every 6 hours. He is on Symbicort as maintenance. Labs show a BUN of 25 with a creatinine of 0.5 and sodium levels of 136. She is afebrile. She is hemodynamically stable. She is on 2 L of O2 nasal cannula with a pulse ox of 93%. No other new complaints otherwise for now. Objective - Vital Signs Vital signs: Vital Signs Temp 97.9 F 05/31/23 04:54 Pulse 86 05/31/23 08:28 Resp 16 05/31/23 04:54 BP 159/78 05/31/23 04:54 Pulse Ox 94 L 05/31/23 04:54 FiO2 28 05/30/23 04:41 Intake & Output 05/30/23 05/31/23 05/31/23 18:59 06:59 18:59 Intake Total 956 540 Balance 956 540 Intake: Oral 956 540 Other: Voiding Method Toilet Toilet # Voids 1 - Exam GENERAL EXAM: Alert, 48-year-old obese white female, comfortable in no apparent distress. HEAD: Normocephalic and atraumatic EYES: Normal reaction of pupils, equal size. NOSE: Clear with pink turbinates. THROAT: No erythema or exudates. NECK: No masses, no JVD. CHEST: No chest wall deformity. Grimacing with palpation of right lateral chest. No crepitus or subcutaneous emphysema LUNGS: Equal air entry with expiratory wheezes heard throughout. No crackles, rhonchi, focal dullness. On room air. No conversational dyspnea or accessory muscle use.. CVS: S1 and S2 normal with no audible murmur, regular rhythm. No extra heart sounds ABDOMEN: No hepatosplenomegaly, active bowel sounds, no guarding or rigidity. SPINE: No scoliosis or deformity SKIN: No rashes CENTRAL NERVOUS SYSTEM: No focal deficits, tone is normal in all 4 extremities. EXTREMITIES: There is no peripheral edema, clubbing, or cyanosis. Peripheral pulses are intact. - Labs CBC & Chem 7: 05/29/23 19:33 05/30/23 10:13 Labs: Abnormal Lab Results - Last 24 Hours (Table) 05/30/23 Range/Units 10:13 Sodium 136 L (137-145) mmol/L Chloride 93 L (98-107) mmol/L Carbon Dioxide 34 H (22-30) mmol/L BUN 25 H (7-17) mg/dL Glucose 150 H (74-99) mg/dL Magnesium 1.5 L (1.6-2.3) mg/dL Assessment and Plan Assessment: Acute COPD exacerbation possibly secondary to acute tracheobronchitis, chest x- ray showed no acute cardiopulmonary process. Negative for influenza, RSV, COVID-19. Acute on chronic hypoxemic respiratory failure, secondary to above, improved COPD maintained on Symbicort and albuterol as needed and she has home 02 at 2 liters/min Possible costochondritis Chronic and ongoing tobacco dependence, down to 3 cigarettes per day Hypertension Chronic pain and fibromyalgia History of anxiety/depression Plan: COPD exacerbation still active and the patient continues to be symptomatic Keep the patient on 2 L of oxygen nasal cannula Continue combination of Symbicort inhaler, DuoNeb's around the clock, and IV Solu-Medrol Continue empiric antibiotic and check procalcitonin level, and the level was low at 0.02 Smoking cessation counseling performed Nicotine replacement offered Home pain medications reordered We will continue to follow
--- NOTE | 2023-05-31 12:46 | P.PN ---
Subjective Progress Note Date: 05/31/23 48 year old female with COPD, chronic hypoxic respiratory failure on home oxygen 2 L NC, CVA, Fibromyalgia, RA, Seizure disorder, smoker presents to the ED for sudden onset SOB. Reports wheezing, right pleuritic chest pain, URI like symptoms (rhinorrhea, malaise, cough productive of yellow sputum). This prompted her to come to the ED. In the ED, she underwent extensive evaluation. She was 87% on 2L NC requiring BiPAP. Tachycardic with HR in the 100s. CBC Plt count 519. D-Dimer 0.39. CMP K 3.4, Cl 94, bicarb 35, BUN 20, glucose 185. Troponin < 0.012. Lipase negative. COVID, RSV, Flu negative. EKG sinus tachycardia. CXR negative for acute process. Patient was admitted for COPD exacerbation. 05/30 Patient was seen and examined. Saturating well on 2L O2. Still complains of shortness of breath and chest tightness. Currently on bronchodilators and SoluMedrol. BMP and Procal pending from this morning. 05/31 Patient was seen and examined. Complains of chest tightness and SOB with wheezing. Slow to progress. BMP shows Na 136, Cl 93, bicarb 34, BUN 25, glu 150. Mag 1.5. Procal 0.02. General: non toxic, no distress, appears at stated age Derm: warm, dry Head: atraumatic, normocephalic, symmetric Eyes: EOMI, no lid lag, anicteric sclera Cardiovascular: Tachycardic, no murmur Lungs: Scattered expiratory wheezing bilateral, no rhonchi, no rales, no accessory muscle use Ext: no gross muscle atrophy, no edema, no contractures Neuro: no focal neuro deficits Psych: Alert, oriented, appropriate affect Based on my assessment of this patient, this patient meets a moderate complexity level of care. Patient has a history of COPD with severe exacerbation or progression of disease which poses a threat to life or bodily function. Asthma/COPD exacerbation Acute bronchitis Acute on chronic hypoxic hypercapnic respiratory failure Bronchodilators: DuoNeb 0.5mg-3mg/3ml scheduled and as needed for SOB and wheezing. Symbicort INH BID. Pulmicort INH BID. Antibiotics: Doxycycline 100 mg PO BID. Steroids: SoluMedrol 60 mg IV Q6H. Supplemental oxygen to maintain O2 > 92%. Pulmonology consult. HypoMag Mag sulfate IV ordered. Chronic conditions: CVA, Fibromyalgia, RA, Seizure disorder CODE STATUS: FULL CODE DVT Prophylaxis: Lovenox SQ GI Prophylaxis: Protonix PO Designated medical POA if patient is not able to make medical decisions for themselves: I have reviewed the following national sales consultant notes: Pulm note. I have reviewed the results of the following tests: I have ordered the following tests: I have discussed the care of this patient with the following independent historian: I have independently interpreted the following test below: I have discussed the management of this patient with the following physician: Objective - Vital Signs Vital signs: Vital Signs Temp 97.6 F 05/31/23 08:00 Pulse 78 05/31/23 12:02 Resp 16 05/31/23 08:00 BP 113/69 05/31/23 08:00 Pulse Ox 97 05/31/23 11:52 FiO2 28 05/30/23 04:41 Intake & Output 05/30/23 05/31/23 05/31/23 18:59 06:59 18:59 Intake Total 956 540 Balance 956 540 Intake: Oral 956 540 Other: Voiding Method Toilet Toilet Toilet # Voids 1 - Labs CBC & Chem 7: 05/29/23 19:33 05/30/23 10:13
[2023-05-31] MEDS: MAGNESIUM SULFATE-D5W PMX 1 GM in DEXTROSE/WATER 1 100ML.BAG IVPB SCH ×4 (12:50→17:25)
[2023-05-31] MEDS: QUEtiapine 50 MG TAB PO SCH (20:46)
[2023-05-31] MEDS: diphenhydrAMINE 25 MG CAP PO PRN (21:42)
[2023-06-01 00:23] LABS: Appearance,Urine Clear (Clear); Bilirubin,Urine Negative (Negative); Blood,Urine Negative (Negative); Color,Urine Yellow; Glucose,Urine (UA) Negative (Negative); Ketones,Urine Negative (Negative); Leukocyte Esterase,Urine Negative (Negative); Nitrite,Urine Negative (Negative); Protein,Urine Negative (Negative); Specific Gravity,Urine 1.025 (1.001-1.035); Urobilinogen,Urine <2.0 mg/dL (<2.0)
[2023-06-01] MEDS: MORPHINE SULFATE 2 MG/ML SYRINGE IVP PRN ×2 (01:45→06:15)
[2023-06-01] MEDS: methylPREDNISolone SOD SUCCI 125 MG/2 ML VIAL IV SCH (06:15)
[2023-06-01] MEDS: ALPRAZolam 0.25 MG TAB PO PRN (06:16)
[2023-06-01] MEDS: carvediloL 12.5 MG TAB PO SCH (06:16)
[2023-06-01] MEDS: IPRATROPIUM-ALBUTEROL 3 ML NEB INHALATION SCH ×2 (08:02→11:08)
[2023-06-01] MEDS: SYMBICORT 160-4.5 MCG INHALER INHALATION SCH (08:02)
[2023-06-01] MEDS: amLODIPine 10 MG TAB PO SCH (09:05)
[2023-06-01] MEDS: CITALOPRAM HYDROBROMIDE 20 MG TAB PO SCH (09:05)
[2023-06-01] MEDS: SPIRONOLACTONE 25 MG TAB PO SCH (09:05)
[2023-06-01] MEDS: PANTOPRAZOLE 40 MG TABLET PO SCH (09:06)
[2023-06-01] MEDS: DOXYCYCLINE 100 MG CAP PO SCH (09:06)
[2023-06-01] MEDS: ENOXAPARIN 40 MG/0.4 ML SYRINGE SQ SCH (09:06)
[2023-06-01] MEDS: hydrALAZINE HCL 25 MG TAB PO SCH (09:06)
[2023-06-01] MEDS: diphenhydrAMINE 25 MG CAP PO PRN (09:07)
[2023-06-01 09:19] VITALS: BP 118/71; RESP 16; TEMP 97.7
[2023-06-01] MEDS: NICOTINE 14MG/24HR PATCH TRANSDERM SCH (09:22)
[2023-06-01 09:39] LABS: HCT 40.1 % (34.0-46.0); HGB 12.5 gm/dL (11.4-16.0); Hypochromasia Slight; MCH 27.8 pg (25.0-35.0); MCHC 31.2 g/dL (31.0-37.0); MCV 88.9 fL (80.0-100.0); Mean Platelet Volume 7.1; Platelet Count 374 k/uL (150-450); RBC 4.51 m/uL (3.80-5.40); RDW 13.3 % (11.5-15.5); WBC 13.3 k/uL (3.8-10.6)
[2023-06-01 10:11] LABS: African American GFR (CKD) >90 (>60 ml/min/1.73 sqM); Anion Gap 10 mmol/L; Blood Urea Nitrogen 25 mg/dL (7-17); Calcium 8.6 mg/dL (8.4-10.2); Carbon Dioxide 31 mmol/L (22-30); Chloride 94 mmol/L (98-107); Glucose 249 mg/dL (74-99); Non-African American GFR(CKD) >90 (>60 ml/min/1.73 sqM); Sodium 135 mmol/L (137-145)
[2023-06-01] MEDS: oxyCODONE-APAP 10-325MG 1 EACH TAB PO PRN (10:38)
[2023-06-01] MEDS ORDERED: LORATADINE 10 MG TAB PO SCH (10:45)
[2023-06-01] MEDS ORDERED: FLUTICASONE 50MCG/SPRAY NASAL 16GM EA NOSTRIL SCH (10:45)
[2023-06-01 11:29] VITALS: PULSE 80
--- NOTE | 2023-06-01 11:31 | P.DS ---
Providers Date of admission: 05/29/23 23:11 Expected date of discharge: 06/01/23 Attending physician: Emile Narayanan MD Consults: 05/29/23 23:09 Consult Physician Routine Consulting Provider: Ruy Bray Consult Reason/Comments: respiratory failure Do you want consulting provider notified?: Yes Primary care physician: Stated None Hospital Course: Discharge Diagnosis: Acute exacerbation of COPD Chronic hypoxic respiratory failure Acute bronchitis Chronic pain Thrombocytosis, resolved Hypokalemia Hospital Course: Patient is a 48-year-old female with a history of COPD requiring 2 L of oxygen via nasal cannula around the clock, hypertension, rheumatoid arthritis, fibromyalgia, multiple other comorbid conditions who presented to the hospital with complaints of shortness of breath. On arrival to the ER her vital signs are within normal limits. Laboratory analysis was remarkable for potassium of 3.4. Influenza A/B/RSV/COVID-19 testing was negative. CXR showed no acute cardiopulmonary process. She was started on steroids and bronchdilators and arrangements were made for admission. Pulmonary was consulted. She continued to improve and was determined stable for discharge. Follow-up: Prednisone 50 mg daily for 5 days, Dr. Milligan in the office, Duoneb q6 scheduled for 4 days and then 4 times daily as needed. Claritin 10 mg daily, Flonase 1 spray both nostrils daily, budesonide 2 puffs twice daily. Patient seen and examined at bedside. She is still feeling slightly tired and mild SOB, feels comfortable going home. She does have alot of post nasal gtt. Vital signs reviewed and stable. General: nontoxic, no distress, appears at stated age Cardiovascular: S1S2 reg, no murmur, positive posterior tibial pulse bilateral, Lungs: Upper airway wheeze, decreased bs bilateral, no accessory muscle use Abdominal: soft, nontender to palpation, no guarding, no appreciable organomegaly Ext: no gross muscle atrophy, no edema b/l lower extremities, no contractures Neuro: CN II-XI grossly intact, no focal neuro deficits Psych: Alert, oriented, appropriate affect A total of 35 minutes of time were spent preparing this complex discharge summary. Patient was discharged on 06/01/23. This dictation was prepared using [employer] voice recognition software. Though every attempt is made to correct errors during dictation some may still exist. Patient Condition at Discharge: Fair Plan - Discharge Summary Discharge Rx Participant: No New Discharge Prescriptions: New Fluticasone Nasal [place] [Flonase Nasal [place]] 2 spray EA NOSTRIL DAILY #1 unit Ipratropium-Albuterol Nebulize [Duoneb 0.5 mg-3 mg/3 ml Soln] 3 ml INHALATION RT-QID #120 each Loratadine [Claritin] 10 mg PO DAILY #30 tab predniSONE 50 mg PO DAILY #5 tablet Budesonide-Formot 160-4.5 Mcg [Symbicort 160-4.5 Mcg Inhaler] 2 puff INHALATION RT-BID #1 each Continue Spironolactone [Aldactone] 25 mg PO DAILY Citalopram Hydrobromide [CeleXA] 40 mg PO DAILY Dicyclomine [Bentyl] 10 mg PO QID PRN PRN Reason: Gi Upset carvediloL [Coreg] 25 mg PO BID QUEtiapine [SEROquel] 100 mg PO DAILY amLODIPine [Norvasc] 10 mg PO DAILY 30 Days #30 tab Citalopram Hydrobromide [CeleXA] 20 mg PO DAILY Pantoprazole [Protonix] 40 mg PO DAILY hydrALAZINE HCL 25 mg PO TID oxyCODONE-APAP 10-325MG [Percocet 10-325 mg] 1 tab PO TID PRN PRN Reason: Pain Naloxone HCl [Narcan] 4 mg NASAL ONCE PRN PRN Reason: OVERDOSE QUEtiapine [SEROquel] 150 mg PO HS Albuterol Inhaler [Ventolin Hfa Inhaler] 2 puff INHALATION RT-QID 30 Days #1 each Discontinued Budesonide [Pulmicort] 0.5 mg INHALATION RT-BID Discharge Medication List Spironolactone [Aldactone] 25 mg PO DAILY 02/05/17 [History] Citalopram Hydrobromide [CeleXA] 40 mg PO DAILY 06/12/19 [History] Dicyclomine [Bentyl] 10 mg PO QID PRN 05/28/20 [History] carvediloL [Coreg] 25 mg PO BID 03/26/21 [History] oxyCODONE-APAP 10-325MG [Percocet 10-325 mg] 1 tab PO TID PRN 03/16/22 [History] Naloxone HCl [Narcan] 4 mg NASAL ONCE PRN 05/29/22 [History] QUEtiapine [SEROquel] 100 mg PO DAILY 07/21/22 [History] QUEtiapine [SEROquel] 150 mg PO HS 07/21/22 [History] amLODIPine [Norvasc] 10 mg PO DAILY 30 Days #30 tab 09/27/22 [Rx] Citalopram Hydrobromide [CeleXA] 20 mg PO DAILY 01/27/23 [History] Pantoprazole [Protonix] 40 mg PO DAILY 05/29/23 [History] hydrALAZINE HCL 25 mg PO TID 05/29/23 [History] Albuterol Inhaler [Ventolin Hfa Inhaler] 2 puff INHALATION RT-QID 30 Days #1 each 06/01/23 [Rx] Budesonide-Formot 160-4.5 Mcg [Symbicort 160-4.5 Mcg Inhaler] 2 puff INHALATION RT-BID #1 each 06/01/23 [Rx] Fluticasone Nasal [place] [Flonase Nasal [place]] 2 spray EA NOSTRIL DAILY #1 unit 06/01/23 [Rx] Ipratropium-Albuterol Nebulize [Duoneb 0.5 mg-3 mg/3 ml Soln] 3 ml INHALATION RT-QID #120 each 06/01/23 [Rx] Loratadine [Claritin] 10 mg PO DAILY #30 tab 06/01/23 [Rx] predniSONE 50 mg PO DAILY #5 tablet 06/01/23 [Rx] Follow up Appointment(s)/Referral(s): Daren Hendricks MD [STAFF PHYSICIAN] - 1 Week None,Stated [Primary Care Provider] - 1-2 days Samm Milligan MD [STAFF PHYSICIAN] - 1 Week Activity/Diet/Wound Care/Special Instructions: Activity: As tolerated Diet: Heart Healthy Special Instructions: Abstain from smoking Take Claritin or Zyrtec Use your nebulizer 4 times daily for the next 5 days and then 4 times daily as needed. Discharge/Stand Alone Forms: Who Do I Call?, Community Resources, Personal Basket Bottom Machine Operator, Area PCPs Discharge Disposition: HOME SELF-CARE
--- NOTE | 2023-06-01 15:47 | P.PN ---
Subjective Progress Note Date: 06/01/23 I am seeing this patient in new consultation today 05/30/2023 for suspected acute COPD exacerbation. Patient is a 48-year-old female with past medical history significant for COPD, chronic ongoing tobacco dependence, congestive heart failure, hypertension, CVA/TIA, rheumatoid arthritis, fibromyalgia, among other things. She does not have an established primary care provider. Patient presented to the emergency room last night complaining of right lateral wall back/chest pain radiating underneath her right breast. This is associated with coughing and deep breathing. Patient states that she's had progressively worsening shortness of breath for the last 2 weeks. This is been associated with a persistent cough with yellow sputum production. She also reports a fever of 101F at home. Apparently, the patient was quite dyspneic on arrival, and was placed on a BiPAP with settings of 10/5 and FiO2 28%. This is currently on standby. The patient is on room air. She's eating and quite comfortable. Chest x-ray did not show any acute cardiopulmonary process. D-dimer not elevated. EKG showed sinus tachycardia without any obvious acute ischemic changes. Troponins not elevated. NT proBNP level. CBC on arrival unremarkable. No leukocytosis. Negative for influenza, RSV, COVID-19. BMP s hows sodium 138, potassium 3.4, chloride 94, serum bicarbonate 35, BUN 20, creatinine 0.63, glucose 185. Patient has been started on a combination of Symbicort inhaler, DuoNeb's, and IV Solu-Medrol. Also, doxycycline was added empirically. Currently afebrile. Hemodynamically, the patient appears stable, and is being monitored on the cardiac stepdown unit. On today's evaluation of 05/31/2023, the patient is feeling the same, the patient remains spastic and wheezing. Her COPD remains on the acute exacerbation. She is on doxycycline. She is also on DuoNeb updrafts, IV Solu- Medrol 60 mg every 6 hours. He is on Symbicort as maintenance. Labs show a BUN of 25 with a creatinine of 0.5 and sodium levels of 136. She is afebrile. She is hemodynamically stable. She is on 2 L of O2 nasal cannula with a pulse ox of 93%. No other new complaints otherwise for now. On today's evaluation of 06/01/2023, the patient is feeling less bronchus spastic and wheezing improved compared to yesterday. Her COPD exacerbation is not fully recovered. She can completed treatment on outpatient basis with a prednisone burst taper and nebulized breathing treatments [id number]. She is ambulating. She remains on 2 L of Oxymizer nasal cannula. No nausea or vomiting no chest pain. No altered mentation. The patient's blood work from today shows an obese, 15.3 with a hemoglobin of 12.5 and a platelet count of 374. BUN is 25 with a creatinine of 0.67 and a sodium level is at 135. UA has been negative. She has home O2. She has a home nebulizer. As stated, she has multiple comorbidities including previous history of CVA, hypertension, congestion heart failure and COPD in addition to fibromyalgia. Objective - Vital Signs Vital signs: Vital Signs Temp 97.7 F 06/01/23 09:09 Pulse 80 06/01/23 11:08 Resp 16 06/01/23 09:09 BP 118/71 06/01/23 09:09 Pulse Ox 96 06/01/23 09:09 FiO2 28 05/30/23 04:41 Intake & Output 05/31/23 06/01/23 06/01/23 18:59 06:59 18:59 Intake Total 200 10 Balance 200 10 Intake: IV 10 Invasive Line 1 10 Intake, IV Titration 200 Amount Magnesium Sulfate-D5w Pmx 200 1 gm In Dextrose/Water 1 100ml.bag @ 100 mls/hr IVPB Q1H [facility] Rx#: [id number] Other: Voiding Method Toilet Toilet Toilet # Voids 2 - Exam GENERAL EXAM: Alert, 48-year-old obese white female, comfortable in no apparent distress. HEAD: Normocephalic and atraumatic EYES: Normal reaction of pupils, equal size. NOSE: Clear with pink turbinates. THROAT: No erythema or exudates. NECK: No masses, no JVD. CHEST: No chest wall deformity. Grimacing with palpation of right lateral chest. No crepitus or subcutaneous emphysema LUNGS: Equal air entry with expiratory wheezes heard throughout. No crackles, rhonchi, focal dullness. On room air. No conversational dyspnea or accessory muscle use.. CVS: S1 and S2 normal with no audible murmur, regular rhythm. No extra heart sounds ABDOMEN: No hepatosplenomegaly, active bowel sounds, no guarding or rigidity. SPINE: No scoliosis or deformity SKIN: No rashes CENTRAL NERVOUS SYSTEM: No focal deficits, tone is normal in all 4 extremities. EXTREMITIES: There is no peripheral edema, clubbing, or cyanosis. Peripheral pulses are intact. - Labs CBC & Chem 7: 06/01/23 08:40 06/01/23 08:40 Labs: Abnormal Lab Results - Last 24 Hours (Table) 06/01/23 06/01/23 Range/Units 08:40 08:40 WBC 13.3 H (3.8-10.6) k/uL Sodium 135 L (137-145) mmol/L Chloride 94 L (98-107) mmol/L Carbon Dioxide 31 H (22-30) mmol/L BUN 25 H (7-17) mg/dL Glucose 249 H (74-99) mg/dL Assessment and Plan Assessment: Acute COPD exacerbation possibly secondary to acute tracheobronchitis, chest x- ray showed no acute cardiopulmonary process. Negative for influenza, RSV, COVID-19. Clinically improving Acute on chronic hypoxemic respiratory failure, secondary to above, improved COPD maintained on Symbicort and albuterol as needed and she has home 02 at 2 liters/min Possible costochondritis Chronic and ongoing tobacco dependence, down to 3 cigarettes per day Hypertension Chronic pain and fibromyalgia History of anxiety/depression Plan: Not fully recovered and the patient is improved. The patient should be able to go home on a prednisone burst taper The patient has home O2 Keep the patient on 2 L of oxygen nasal cannula Continue combination of Symbicort inhaler, DuoNeb's around the clock, and I suggested additional 3 by examination with Symbicort on outpatient basis Continue empiric antibiotic and check procalcitonin level, and the level was low at 0.02 Smoking cessation counseling performed Nicotine replacement offered We will continue to follow on outpatient basis. The patient will be discharged home today.
== END 2023-06-01 13:15 | disposition home or self-care (01) | DRG 189 ==
LOC: EC 18:35 → 3SCARD 23:11 → OBSVTOIN 23:11 → 3SCARD 23:25
PROVIDERS: ADMIT Internal Medicine; ATTEND Internal Medicine
DX: J96.21 Acute and chronic respiratory failure with hypoxia (principal); J44.1 Chronic obstructive pulmonary disease with (acute) exacerbation; J45.901 Unspecified asthma with (acute) exacerbation; J96.22 Acute and chronic respiratory failure with hypercapnia; J96.11 Chronic respiratory failure with hypoxia; D75.839 Thrombocytosis, unspecified; E66.9 Obesity, unspecified; E83.42 Hypomagnesemia; E87.6 Hypokalemia; F17.210 Nicotine dependence, cigarettes, uncomplicated; F31.9 Bipolar disorder, unspecified; F41.9 Anxiety disorder, unspecified; J20.9 Acute bronchitis, unspecified; M06.9 Rheumatoid arthritis, unspecified; M79.7 Fibromyalgia; F90.9 Attention-deficit hyperactivity disorder, unspecified type; G40.909 Epilepsy, unspecified, not intractable, without status epilepticus; G89.29 Other chronic pain; I11.0 Hypertensive heart disease with heart failure; I50.9 Heart failure, unspecified; Z20.822 Contact with and (suspected) exposure to COVID-19; Z86.73 Personal history of transient ischemic attack (TIA), and cerebral infarction without residual deficits; Z68.32 Body mass index [BMI] 32.0-32.9, adult; Z88.0 Allergy status to penicillin; Z88.8 Allergy status to other drugs, medicaments and biological substances; Z79.899 Other long term (current) drug therapy; Z87.442 Personal history of urinary calculi; Z90.710 Acquired absence of both cervix and uterus; Z99.81 Dependence on supplemental oxygen; Z88.2 Allergy status to sulfonamides; Z91.041 Radiographic dye allergy status; Z91.013 Allergy to seafood; Z71.6 Tobacco abuse counseling
CPT/HCPCS: 36415; 71046; 80048; 80053; 81003; 83690; 83735; 83880; 84145; 84484; 85025; 85027; 85379; 87636; 93005; 94640; 94660; 94760; 96374; 96375; 99285

== ENCOUNTER 2023-06-05 16:15 | Emergency (ER) | payer MEDICARE ==
[2023-06-05] MEDS ORDERED: DEXAMETHASONE SOD PHOSPHATE 10 MG/ML 1 ML VIAL IM STA (16:52)
[2023-06-05] MEDS ORDERED: FAMOTIDINE 20 MG TAB PO STA (16:52)
--- NOTE | 2023-06-05 16:52 | ED ---
Allergic Reaction HPI - General Chief complaint: Allergic Reaction Stated complaint: allergic reaction Time Seen by Provider: 06/05/23 16:22 Source: patient, EMS, RN notes reviewed, old records reviewed Mode of arrival: wheelchair Limitations: no limitations - History of Present Illness Initial Comments: This is a 40-year-old female DF for evaluation. Patient believes she may be having. Patient presents with her who is here for some breath cough and congestion with history of asthma, patient herself is a recent hospital admission for chest pain observation. Patient states she is unsure why but her throat feels a little scratchy and swollen. No other complaints no shortness of breath or fever. Patient just feels like it is getting a little bit tight she has had history of significant ALLERGIES to multiple different allergens MD Complaint: allergic reaction, hives, facial swelling, other (0) -: hour(s) Exposure: unknown Symptoms: itching, hoarseness Treatment Prior to Arrival: none Previous Allergy History: none - Related Data Home Medications Medication Instructions Recorded Confirmed Spironolactone [Aldactone] 25 mg PO DAILY 02/05/17 05/29/23 Citalopram Hydrobromide [CeleXA] 40 mg PO DAILY 06/12/19 05/29/23 Dicyclomine [Bentyl] 10 mg PO QID PRN 05/28/20 05/29/23 carvediloL [Coreg] 25 mg PO BID 03/26/21 05/29/23 oxyCODONE-APAP 10-325MG [Percocet 1 tab PO TID PRN 03/16/22 05/29/23 10-325 mg] Naloxone HCl [Narcan] 4 mg NASAL ONCE PRN 05/29/22 05/29/23 QUEtiapine [SEROquel] 100 mg PO DAILY 07/21/22 05/29/23 QUEtiapine [SEROquel] 150 mg PO HS 07/21/22 05/29/23 Citalopram Hydrobromide [CeleXA] 20 mg PO DAILY 01/27/23 05/29/23 Pantoprazole [Protonix] 40 mg PO DAILY 05/29/23 05/29/23 hydrALAZINE HCL 25 mg PO TID 05/29/23 05/29/23 Previous Rx's Medication Instructions Recorded amLODIPine [Norvasc] 10 mg PO DAILY 30 Days #30 tab 03/13/23 Albuterol Inhaler [Ventolin Hfa 2 puff INHALATION RT-QID 30 Days 06/01/23 Inhaler] #1 each Budesonide-Formot 160-4.5 Mcg 2 puff INHALATION RT-BID #1 each 06/01/23 [Symbicort 160-4.5 Mcg Inhaler] Fluticasone Nasal [place] [Flonase 2 spray EA NOSTRIL DAILY #1 unit 06/01/23 Nasal [place]] Ipratropium-Albuterol Nebulize 3 ml INHALATION RT-QID #120 each 06/01/23 [Duoneb 0.5 mg-3 mg/3 ml Soln] Loratadine [Claritin] 10 mg PO DAILY #30 tab 06/01/23 predniSONE 50 mg PO DAILY #5 tablet 06/01/23 Allergies Allergy/AdvReac Type Severity Reaction Status Date / Time adhesive Allergy Rash/Hives Verified 06/05/23 16:20 amoxicillin Allergy Anaphylaxis Verified 06/05/23 16:20 azithromycin [From Zithromax] Allergy Anaphylaxis Verified 06/05/23 16:20 cephalexin monohydrate Allergy Anaphylaxis Verified 06/05/23 16:20 [From Keflex] ciprofloxacin Allergy Anaphylaxis Verified 06/05/23 16:20 clindamycin Allergy Anaphylaxis Verified 06/05/23 16:20 Iodinated Contrast Media Allergy Anaphylaxis Verified 06/05/23 16:20 [Iodinated Contrast- Oral and IV Dye] ketorolac [From Toradol] Allergy Unknown Verified 06/05/23 16:20 levofloxacin [From Levaquin] Allergy Rash/Hives Verified 06/05/23 16:20 naproxen Allergy Anaphylaxis Verified 06/05/23 16:20 NSAIDS (Non-Steroidal Allergy Rash/Hives Verified 06/05/23 16:20 Anti-Inflamma shellfish derived Allergy Anaphylaxis Verified 06/05/23 16:20 Sulfa (Sulfonamide Allergy Anaphylaxis Verified 06/05/23 16:20 Antibiotics) sulfamethoxazole Allergy Anaphylaxis Verified 06/05/23 16:20 [From Bactrim] tramadol Allergy Unknown Verified 06/05/23 16:20 trimethoprim [From Bactrim] Allergy Anaphylaxis Verified 06/05/23 16:20 Review of Systems ROS Statement: Those systems with pertinent positive or pertinent negative responses have been documented in the HPI. ROS Other: All systems not noted in ROS Statement are negative. 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 IBS, cellulitis of the chin, CVA about 1 year ago(no residual) History of Any Multi-Drug Resistant Organisms: MRSA Date of last positivie culture/infection: 07/2016 MDRO Source:: Chin Past Surgical History: Appendectomy, Section, Cholecystectomy, Hysterectomy, Tubal Ligation Additional Past Surgical History / Comment(s): oral surgery . Pancreas biopsy May 2015. Past Anesthesia/Blood Transfusion Reactions: No Reported Reaction Past Psychological History: ADD/ADHD, Anxiety, Bipolar, Depression Smoking Status: Current every day smoker, Current some day smoker, Vaper Past Alcohol Use History: None Reported Past Drug Use History: Marijuana - Past Family History Father History Unknown: Yes Family Medical History: No Reported History Additional Family Medical History / Comment(s): Pt adopted Mother History Unknown: Yes Additional Family Medical History / Comment(s): Pt adopted General Exam Limitations: no limitations General appearance: alert, in no apparent distress Head exam: Present: atraumatic, normocephalic, normal inspection Eye exam: Present: normal appearance, PERRL, EOMI. Absent: scleral icterus, conjunctival injection, periorbital swelling ENT exam: Present: normal exam, mucous membranes moist Neck exam: Present: normal inspection. Absent: tenderness, meningismus, lymphadenopathy Respiratory exam: Present: normal lung sounds bilaterally. Absent: respiratory distress, wheezes, rales, rhonchi, stridor Cardiovascular Exam: Present: regular rate, normal rhythm, normal heart sounds. Absent: systolic murmur, diastolic murmur, rubs, gallop, clicks GI/Abdominal exam: Present: soft, normal bowel sounds. Absent: distended, tenderness, guarding, rebound, rigid Extremities exam: Present: normal inspection, full ROM, normal capillary refill. Absent: tenderness, pedal edema, joint swelling, calf tenderness Back exam: Present: normal inspection Neurological exam: Present: alert, oriented X3, CN II-XII intact Psychiatric exam: Present: normal affect, normal mood Skin exam: Present: warm, dry, intact, normal color. Absent: rash Course Vital Signs 06/05/23 06/05/23 16:18 18:31 Temperature 97.7 F 98.0 F Pulse Rate 102 H 94 Respiratory 18 20 Rate Blood Pressure 135/92 128/69 O2 Sat by Pulse 94 L 93 L Oximetry - Reevaluation(s) Reevaluation #1: 06/05/23 17:49 Medical record is reviewed Reevaluation #2: 06/05/23 17:49 Patient's symptoms improving Reevaluation #3: 06/05/23 17:49 Patient informed results questions answered Reevaluation #4: 06/05/23 17:49 Was pt. sent in by a medical professional or institution ([facility], SCHOOL AIDE, urgent care, hospital, or retirement...) When possible be specific @ -no Did you speak to anyone other than the patient for history (EMS, parent, family, police, friend...)? What history was obtained from this source @ -no Did you review nursing and triage notes (agree or disagree)? Why? @ -agree Are old charts reviewed (outside hosp., previous admission, EMS record, old EKG, old radiological studies, urgent care reports/EKG's, retirement records)? Report findings @ -yes Differential Diagnosis (chest pain, altered mental status, abdominal pain women, abdominal pain men, vaginal bleeding, weakness, fever, dyspnea, syncope, h eadache, dizziness, GI bleed, back pain, seizure, CVA, palpatations, mental health, musculoskeletal)? @ -prior EKG interpreted by me (3pts min.). @ -no X-rays interpreted by me (1pt min.). @ -no CT interpreted by me (1pt min.). @ -no U/S interpreted by me (1pt. min.). @ -no What testing was considered but not performed or refused? (CT, X-rays, U/S, labs)? Why? @ -none What meds were considered but not given or refused? Why? @ -none Did you discuss the management of the patient with other professionals (professionals i.e. [facility], SCHOOL AIDE, lab, RT, psych nurse, foster care social worker, bottom stop attacher, teacher, chief security officer, correctional casework specialist)? Give summary @ -no Was smoking cessation discussed for >3mins.? @ -no Was critical care preformed (if so, how long)? @ -no Were there social determinants of health that impacted care today? How? (Homelessness, low income, unemployed, alcoholism, drug addiction, transportation, low edu. Level, literacy, decrease access to med. care, long-term, rehab)? @ -none Was there de-escalation of care discussed even if they declined (Discuss DNR or withdrawal of care, Hospice)? DNR status @ -no What co-morbidities impacted this encounter? (DM, HTN, Smoking, COPD, CAD, Canc er, CVA, ARF, Chemo, Hep., AIDS, mental health diagnosis, sleep apnea, morbid obesity)? @ -none Was patient admitted / discharged? Hospital course, mention meds given and route, prescriptions, significant lab abnormalities, going to OR and other pertinent info. @ - 48 female for ALLERGIC reaction, swelling testing is negative no strep throat, patient will not treat with antibiotics can be discharged home Discharge Undiagnosed new problem with uncertain prognosis? @ -no Drug Therapy requiring intensive monitoring for toxicity (Heparin, Nitro, Insulin, Cardizem)? @ -no Were any procedures done? @ -no Diagnosis/symptom? @ -ALLERGIC reaction Acute, or Chronic, or Acute on Chronic? @ -Acute Uncomplicated (without systemic symptoms) or Complicated (systemic symptoms)? @ -Complicated Side effects of treatment? @ -no Exacerbation, Progression, or Severe Exacerbation? @ -exacerbation Poses a threat to life or bodily function? How? (Chest pain, [place], NH, pneumonia, PE, COPD, DKA, ARF, appy, cholecystitis, CVA, Diverticulitis, Homicidal, Suicidal, threat to staff... and all critical care pts) @ -yes with significant ALLERGIC reaction Medical Decision Making - Medical Decision Making 48 female for ALLERGIC reaction, swelling testing is negative no strep throat, patient will not treat with antibiotics can be discharged home - Lab Data Lab Results 06/05/23 06/05/23 Range/Units 16:59 16:59 Influenza Type A (PCR) Not Detected (Not Detectd) Influenza Type B (PCR) Not Detected (Not Detectd) RSV (PCR) Not Detected (Not Detectd) SARS-CoV-2 (PCR) Not Detected (Not Detectd) Group A Strep (PCR) NOT DETECTED (Not Detectd) Disposition Clinical Impression: Allergic reaction to drug Disposition: HOME SELF-CARE Condition: Good Instructions (If sedation given, give patient instructions): Anaphylaxis (ED) Is patient prescribed a controlled substance at d/c from ED?: No Referrals: None,Stated [Primary Care Provider] - 1-2 days Time of Disposition: 17:50
[2023-06-05] MEDS: diphenhydrAMINE 50 MG CAP PO STA ×2 (17:04→17:09)
[2023-06-05 18:45] VITALS: BP 128/69; PULSE 94; RESP 20; TEMP 98
== END 2023-06-05 18:37 | disposition home or self-care (01) ==
LOC: EC 16:15
DX: R07.9 Chest pain, unspecified (principal); T50.905A Adverse effect of unspecified drugs, medicaments and biological substances, initial encounter; I11.0 Hypertensive heart disease with heart failure; I50.9 Heart failure, unspecified; J44.9 Chronic obstructive pulmonary disease, unspecified; F41.9 Anxiety disorder, unspecified; F31.9 Bipolar disorder, unspecified; F12.90 Cannabis use, unspecified, uncomplicated; F17.290 Nicotine dependence, other tobacco product, uncomplicated; Z79.899 Other long term (current) drug therapy; Z88.1 Allergy status to other antibiotic agents; Z88.2 Allergy status to sulfonamides; Z88.5 Allergy status to narcotic agent; Z88.6 Allergy status to analgesic agent; Z88.8 Allergy status to other drugs, medicaments and biological substances; Z91.041 Radiographic dye allergy status; Z20.822 Contact with and (suspected) exposure to COVID-19
CPT/HCPCS: 87651; 87636; 99283; 96372; J1100

== ENCOUNTER 2023-07-19 09:31 | Emergency (ER) | payer MEDICARE ==
[2023-07-19] MEDS ORDERED: SODIUM CHLORIDE 0.9% 1,000 ML IV STA (10:09)
[2023-07-19] MEDS ORDERED: ONDANSETRON 4 MG/2 ML VIAL IVP STA (10:09)
[2023-07-19] MEDS ORDERED: MORPHINE SULFATE 4 MG/ML SYRINGE IVP STA (10:12)
--- NOTE | 2023-07-19 10:14 | ED ---
Female Urogenital HPI - General Source: patient, RN notes reviewed Mode of arrival: ambulatory Limitations: no limitations - History of Present Illness MD Complaint: dysuria <Bhavani Kimbrough - Last Filed: 07/19/23 17:27> <Marlena Bray - Last Filed: 07/19/23 23:41> - General Chief complaint: Urogenital Stated complaint: Back Pain,currently has UTI Time Seen by Provider: 07/19/23 09:57 - History of Present Illness Initial comments: This is a 48 year old female who presents to the emergency department for urinary symptoms. She was discharged from [facility] 4 days ago after she was admitted for approximately one week for a UTI. She was treated with IV vancomycin. When in the hospital she started to feel better and was discharged with a prescription for amoxicillin, and states that since taking amoxicillin, she has started to get worse again. Reports burning with urination, abdominal pain, and back pain. She has taken pyridium and over the counter AZO with no relief in symptoms. States that she is also nauseous and unable to keep anything down. Reports a history of UTIs, but states that they're not usually this bad. (Bhavani Kimbrough) - Related Data Home Medications Medication Instructions Recorded Confirmed Spironolactone [Aldactone] 25 mg PO DAILY 02/05/17 05/29/23 Citalopram Hydrobromide [CeleXA] 40 mg PO DAILY 06/12/19 05/29/23 Dicyclomine [Bentyl] 10 mg PO QID PRN 05/28/20 05/29/23 carvediloL [Coreg] 25 mg PO BID 03/26/21 05/29/23 oxyCODONE-APAP 10-325MG [Percocet 1 tab PO TID PRN 03/16/22 05/29/23 10-325 mg] Naloxone HCl [Narcan] 4 mg NASAL ONCE PRN 05/29/22 05/29/23 QUEtiapine [SEROquel] 100 mg PO DAILY 07/21/22 05/29/23 QUEtiapine [SEROquel] 150 mg PO HS 07/21/22 05/29/23 Citalopram Hydrobromide [CeleXA] 20 mg PO DAILY 07/13/23 11/12/23 Pantoprazole [Protonix] 40 mg PO DAILY 05/29/23 05/29/23 hydrALAZINE HCL 25 mg PO TID 05/29/23 05/29/23 Previous Rx's Medication Instructions Recorded amLODIPine [Norvasc] 10 mg PO DAILY 30 Days #30 tab 09/27/22 Albuterol Inhaler [Ventolin Hfa 2 puff INHALATION RT-QID 30 Days 06/01/23 Inhaler] #1 each Budesonide-Formot 160-4.5 Mcg 2 puff INHALATION RT-BID #1 each 06/01/23 [Symbicort 160-4.5 Mcg Inhaler] Fluticasone Nasal [place] [Flonase 2 spray EA NOSTRIL DAILY #1 unit 06/01/23 Nasal [place]] Ipratropium-Albuterol Nebulize 3 ml INHALATION RT-QID #120 each 06/01/23 [Duoneb 0.5 mg-3 mg/3 ml Soln] Loratadine [Claritin] 10 mg PO DAILY #30 tab 06/01/23 predniSONE 50 mg PO DAILY #5 tablet 06/01/23 Allergies Allergy/AdvReac Type Severity Reaction Status Date / Time adhesive Allergy Rash/Hives Verified 07/19/23 09:53 amoxicillin Allergy Anaphylaxis Verified 07/19/23 09:53 azithromycin [From Zithromax] Allergy Anaphylaxis Verified 07/19/23 09:53 cephalexin monohydrate Allergy Anaphylaxis Verified 07/19/23 09:53 [From Keflex] ciprofloxacin Allergy Anaphylaxis Verified 07/19/23 09:53 clindamycin Allergy Anaphylaxis Verified 07/19/23 09:53 Iodinated Contrast Media Allergy Anaphylaxis Verified 07/19/23 09:53 [Iodinated Contrast- Oral and IV Dye] ketorolac [From Toradol] Allergy Unknown Verified 07/19/23 09:53 levofloxacin [From Levaquin] Allergy Rash/Hives Verified 07/19/23 09:53 naproxen Allergy Anaphylaxis Verified 07/19/23 09:53 NSAIDS (Non-Steroidal Allergy Rash/Hives Verified 07/19/23 09:53 Anti-Inflamma orphenadrine [From Norflex] Allergy Anaphylaxis Verified 07/19/23 16:06 shellfish derived Allergy Anaphylaxis Verified 07/19/23 09:53 Sulfa (Sulfonamide Allergy Anaphylaxis Verified 07/19/23 09:53 Antibiotics) sulfamethoxazole Allergy Anaphylaxis Verified 07/19/23 09:53 [From Bactrim] tramadol Allergy Unknown Verified 07/19/23 09:53 trimethoprim [From Bactrim] Allergy Anaphylaxis Verified 07/19/23 09:53 Review of Systems ROS Other: All systems not noted in ROS Statement are negative. <Bhavani Kimbrough - Last Filed: 07/19/23 17:27> ROS Other: All systems not noted in ROS Statement are negative. <Marlena Bray - Last Filed: 07/19/23 23:41> ROS Statement: Those systems with pertinent positive or pertinent negative responses have been documented in the HPI. 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 IBS, cellulitis of the chin, CVA about 1 year ago(no residual) History of Any Multi-Drug Resistant Organisms: MRSA Date of last positivie culture/infection: 07/2016 MDRO Source:: Chin Past Surgical History: Appendectomy, Section, Cholecystectomy, Hysterectomy, Tubal Ligation Additional Past Surgical History / Comment(s): oral surgery . Pancreas biopsy May 2015. Past Anesthesia/Blood Transfusion Reactions: No Reported Reaction Past Psychological History: ADD/ADHD, Anxiety, Bipolar, Depression Smoking Status: Current every day smoker, Current some day smoker, Vaper Past Alcohol Use History: None Reported Past Drug Use History: Marijuana - Past Family History Father History Unknown: Yes Family Medical History: No Reported History Additional Family Medical History / Comment(s): Pt adopted Mother History Unknown: Yes Additional Family Medical History / Comment(s): Pt adopted <Bhavani Kimbrough - Last Filed: 07/19/23 17:27> General Exam Limitations: no limitations General appearance: alert, in no apparent distress Head exam: Present: atraumatic, normocephalic, normal inspection Respiratory exam: Present: normal lung sounds bilaterally. Absent: respiratory distress, wheezes, rales, rhonchi, stridor Cardiovascular Exam: Present: regular rate, normal rhythm, normal heart sounds. Absent: systolic murmur, diastolic murmur, rubs, gallop, clicks GI/Abdominal exam: Present: soft, tenderness (Lower abdomen), normal bowel sounds. Absent: distended Back exam: Present: CVA tenderness (R), CVA tenderness (L) Neurological exam: Present: alert, oriented X3, CN II-XII intact Psychiatric exam: Present: normal affect, normal mood Skin exam: Present: warm, dry, intact, normal color. Absent: rash <Bhavani Kimbrough - Last Filed: 07/19/23 17:27> Course Vital Signs 07/19/23 07/19/23 07/19/23 09:48 11:05 11:43 Temperature 98 F 98.2 F 98.1 F Pulse Rate 101 H 87 86 Respiratory 18 16 Rate Blood Pressure 189/117 133/92 136/76 O2 Sat by Pulse 95 97 Oximetry 07/19/23 07/19/23 07/19/23 14:44 15:55 15:58 Temperature Pulse Rate 103 H 122 H 124 H Respiratory 20 32 H Rate Blood Pressure 172/117 183/141 O2 Sat by Pulse 88 L 96 Oximetry 07/19/23 07/19/23 07/19/23 16:03 16:09 16:12 Temperature Pulse Rate 114 H 111 H 109 H Respiratory 28 H 24 Rate Blood Pressure 142/83 155/83 O2 Sat by Pulse 99 99 Oximetry 07/19/23 07/19/23 16:39 21:01 Temperature Pulse Rate 113 H 100 Respiratory 22 18 Rate Blood Pressure 153/75 170/94 O2 Sat by Pulse 92 L 94 L Oximetry Medical Decision Making - Lab Data Result diagrams: 07/19/23 10:12 07/19/23 10:12 - Radiology Data Radiology results: report reviewed, image reviewed <Bhavani Kimbrough - Last Filed: 07/19/23 17:27> - Lab Data Result diagrams: 07/19/23 10:12 07/19/23 10:12 - Radiology Data Radiology results: report reviewed, image reviewed <Marlena Bray - Last Filed: 07/19/23 23:41> - Medical Decision Making This is a 48-year-old female who presents to the emergency department for burning with urination and back pain. Was pt. sent in by a medical professional or institution? @ -No Did you speak to anyone other than the patient for history? @ -No Did you review nursing and triage notes? @ -Yes, and I agree, it is accurate with regards to the patient's symptoms. Were old charts reviewed? @ -Patient's records from [facility] from 07/10/23. This demonstrated moderate RBCs, few white blood cells, few bacteria, and many sq uamous epithelial cells in her urine. She also had 2+ leukocyte esterase. Urine culture grew a large amount of enterococcus species. Differential Diagnosis? @ -Differential Back Pain: Strain, zoster, cauda equina syndrome, epidural abscess, vertebral osteomyel itis, discitis, fracture, subluxation, disc herniation, DJD, spinal stenosis, dissection, AAA, pancreatitis, peptic ulcer disease, pyelonephritis, kidney stone, this is not meant to be an all-inclusive list. EKG interpreted by me (3pts min.)? @ -Not obtained X-rays interpreted by me (1pt min.)? @ -Not obtained CT interpreted by me (1pt min.)? @ -CT scan of the abdomen/pelvis obtained. My interpretation identifies no evidence of a ureteral calculus. U/S interpreted by me (1pt. min.)? @ -Transvaginal US obtained. My interpretation was unable to identify the right ovary. What testing was considered but not performed? (CT, X-rays, U/S, labs)? Why? @ -None What meds were considered but not given? Why? @ -None Did you discuss the management of the patient with other professionals? @ -No Did you reconcile home meds? @ -No Was smoking cessation discussed for >3mins.? @ -I discussed smoking cessation for greater than 3 minutes. The risk of smoking were discussed with the patient including but not limited to risks of cancer, stroke, coronary artery disease and COPD. Also discussed with patient were multiple methods of quitting smoking. Lastly we discussed the financial cost of smoking. Was critical care preformed (if so, how long)? @ -No Were there social determinants of health that impacted care today? How? (Homelessness, low income, unemployed, alcoholism, drug addiction, transportati on, low edu. Level, literacy, decrease access to med. care, correction, rehab)? @ -No Was there de-escalation of care discussed even if they declined? (Discuss DNR or withdrawal of care, Hospice)? @ -No What co-morbidities impacted this encounter? (DM, HTN, Smoking, COPD, CAD, Cancer, CVA, Hep., AIDS, mental health diagnosis, sleep apnea, morbid obesity)? @ -Fibromyalgia, RA Was patient admitted / discharged? @ -Lab work obtained demonstrating leukocytosis and signs of dehydration. Urinalysis demonstrates moderate leukocyte esterase and a small amount of blood. It was also contaminated and not overtly positive for infection. I reviewed the patient's records from [facility] from 07/10/23. This demonstrated moderate RBCs, few white blood cells, few bacteria, and many squamous epithelial cells. She also had 2+ leukocyte esterase. Urine culture grew a large amount of enterococcus species. However, they did not provide a culture and sensitivity report with regards to antibiotic usage. Her pain was very difficult to control, which may also be in part due to her chronic percocet usage and being opioid tolerant. CT scan of the abdomen and pelvis was obtained to evaluate for any signs of a ureteral calculus given the severity of her pain and blood in her urine. This revealed no acute process. She had a hysterectomy previously but does still have her right ovary and noted right sided pelvic pain. Given the severity of her pain without explanation, transvaginal US was attempted, however the patient could not tolerate this due to the pain. She was subsequently given a 2L bolus of IV fluids with plan to attempt transabdominal pelvic US afterwards. Case signed out to Marlena Bray PA-C, at shift completion pending US results. Undiagnosed new problem with uncertain prognosis? @ -None Drug Therapy requiring intensive monitoring for toxicity (Heparin, Nitro, Insulin, Cardizem)? @ -None Were any procedures done? @ -None (Bhavani Kimbrough) Was patient admitted / discharged? Hospital course, mention meds given and route, prescriptions, significant lab abnormalities, going to OR and other pertinent info. @ -Case signed out to me from Bhavani Kimbrough PA-C, pending US results and disposition. Transabdominal pelvic ultrasound was unable to visualize right ov syd. No other abnormalities present. I discussed lab and imaging findings with patient and family, at bedside. Patient received pain medication prior to discharge. I advised patient to follow-up with PCP. Return parameters were discussed. Patient be discharged in stable condition with follow-up to PCP. Patient expressed understanding and agreement with care plan. I discussed the case with who agreed with plan. Undiagnosed new problem with uncertain prognosis? @ -No Drug Therapy requiring intensive monitoring for toxicity (Heparin, Nitro, Insulin, Cardizem)? @ -No Were any procedures done? @ -No Diagnosis/symptom? @ -Abdominal pain Acute, or Chronic, or Acute on Chronic? @ -Acute Uncomplicated (without systemic symptoms) or Complicated (systemic symptoms)? @ -Uncomplicated Side effects of treatment? @ -No Exacerbation, Progression, or Severe Exacerbation? @ -No Poses a threat to life or bodily function? How? (Chest pain, USA, MA, pneumonia, PE, COPD, DKA, ARF, appy, cholecystitis, CVA, Diverticulitis, Homicidal, Suicidal, threat to staff... and all critical care pts) @ -No (Marlena Bray) - Lab Data Lab Results 07/19/23 07/19/23 07/19/23 Range/Units 10:12 10:12 10:12 WBC 12.4 H (3.8-10.6) k/uL RBC 5.24 (3.80-5.40) m/uL Hgb 14.4 (11.4-16.0) gm/dL Hct 44.6 (34.0-46.0) % MCV 85.2 (80.0-100.0) fL MCH 27.5 (25.0-35.0) pg MCHC 32.2 (31.0-37.0) g/dL RDW 13.8 (11.5-15.5) % Plt Count 461 H (150-450) k/uL MPV 7.0 Neutrophils % 67 % Lymphocytes % 22 % Monocytes % 6 % Eosinophils % 3 % Basophils % 0 % Neutrophils # 8.2 H (1.3-7.7) k/uL Lymphocytes # 2.7 (1.0-4.8) k/uL Monocytes # 0.7 (0-1.0) k/uL Eosinophils # 0.4 (0-0.7) k/uL Basophils # 0.0 (0-0.2) k/uL Sodium (137-145) mmol/L Potassium (3.5-5.1) mmol/L Chloride (98-107) mmol/L Carbon Dioxide (22-30) mmol/L Anion Gap mmol/L BUN (7-17) mg/dL Creatinine (0.52-1.04) mg/dL Est GFR (CKD-EPI)AfAm (>60 ml/min/1.73 sqM) Est GFR (CKD-EPI)NonAf (>60 ml/min/1.73 sqM) Glucose (74-99) mg/dL Plasma Lactic Acid Srinivas (0.7-2.0) mmol/L Calcium (8.4-10.2) mg/dL Total Bilirubin (0.2-1.3) mg/dL AST (14-36) U/L ALT (4-34) U/L Alkaline Phosphatase (38-126) U/L C-Reactive Protein (<1.0) mg/dL Total Protein (6.3-8.2) g/dL Albumin (3.5-5.0) g/dL Urine Color Yellow Urine Appearance Clear (Clear) Urine pH 5.5 (5.0-8.0) Ur Specific [place] 1.020 (1.001-1.035) Urine Protein Trace H (Negative) Urine Glucose (UA) Negative (Negative) Urine Ketones Negative (Negative) Urine Blood Small H (Negative) Urine Nitrite Negative (Negative) Urine Bilirubin Negative (Negative) Urine Urobilinogen <2.0 (<2.0) mg/dL Ur Leukocyte Esterase Moderate H (Negative) Urine RBC 1 (0-5) /hpf Urine WBC 5 (0-5) /hpf Ur Squamous Epith Cells 6 H (0-4) /hpf Hyaline Casts 1 (0-2) /lpf Urine Mucus Rare H (None) /hpf Urine HCG, Qual Not Detected (Not Detectd) 07/19/23 07/19/23 07/19/23 Range/Units 10:12 10:12 16:46 WBC (3.8-10.6) k/uL RBC (3.80-5.40) m/uL Hgb (11.4-16.0) gm/dL Hct (34.0-46.0) % MCV (80.0-100.0) fL MCH (25.0-35.0) pg MCHC (31.0-37.0) g/dL RDW (11.5-15.5) % Plt Count (150-450) k/uL MPV Neutrophils % % Lymphocytes % % Monocytes % % Eosinophils % % Basophils % % Neutrophils # (1.3-7.7) k/uL Lymphocytes # (1.0-4.8) k/uL Monocytes # (0-1.0) k/uL Eosinophils # (0-0.7) k/uL Basophils # (0-0.2) k/uL Sodium 137 (137-145) mmol/L Potassium 4.2 (3.5-5.1) mmol/L Chloride 96 L (98-107) mmol/L Carbon Dioxide 31 H (22-30) mmol/L Anion Gap 10 mmol/L BUN 22 H (7-17) mg/dL Creatinine 0.56 (0.52-1.04) mg/dL Est GFR (CKD-EPI)AfAm >90 (>60 ml/min/1.73 sqM) Est GFR (CKD-EPI)NonAf >90 (>60 ml/min/1.73 sqM) Glucose 113 H (74-99) mg/dL Plasma Lactic Acid Srinivas 1.2 (0.7-2.0) mmol/L Calcium 9.4 (8.4-10.2) mg/dL Total Bilirubin 0.5 (0.2-1.3) mg/dL AST 26 (14-36) U/L ALT 36 H (4-34) U/L Alkaline Phosphatase 89 (38-126) U/L C-Reactive Protein <0.5 (<1.0) mg/dL Total Protein 6.8 (6.3-8.2) g/dL Albumin 4.0 (3.5-5.0) g/dL Urine Color Urine Appearance (Clear) Urine pH (5.0-8.0) Ur Specific [place] (1.001-1.035) Urine Protein (Negative) Urine Glucose (UA) (Negative) Urine Ketones (Negative) Urine Blood (Negative) Urine Nitrite (Negative) Urine Bilirubin (Negative) Urine Urobilinogen (<2.0) mg/dL Ur Leukocyte Esterase (Negative) Urine RBC (0-5) /hpf Urine WBC (0-5) /hpf Ur Squamous Epith Cells (0-4) /hpf Hyaline Casts (0-2) /lpf Urine Mucus (None) /hpf Urine HCG, Qual (Not Detectd) Disposition <Vogley,Bhavani - Last Filed: 07/19/23 17:27> Is patient prescribed a controlled substance at d/c from ED?: No Time of Disposition: 20:54 <Marlena Bray - Last Filed: 07/19/23 23:41> Clinical Impression: Nicotine dependence, Abdominal pain Disposition: HOME SELF-CARE Condition: Stable Instructions (If sedation given, give patient instructions): Abdominal Pain (ED) Additional Instructions: Please complete full course of antibiotics. Please return to the ER for any new or worsening symptoms. Referrals: None,Stated [Primary Care Provider] - 1-2 days
[2023-07-19 10:44] LABS: Appearance,Urine Clear (Clear); Bilirubin,Urine Negative (Negative); Blood,Urine Small (Negative); Color,Urine Yellow; Glucose,Urine (UA) Negative (Negative); Hyaline Casts,Urine 1 /lpf (0-2); Ketones,Urine Negative (Negative); Leukocyte Esterase,Urine Moderate (Negative); Mucus,Urine Rare /hpf; Nitrite,Urine Negative (Negative); PH, Urine 5.5 (5.0-8.0); Protein,Urine Trace (Negative); RBC,Urine 1 /hpf (0-5); Squamous Epithelial Cell,Urine 6 /hpf (0-4); Urobilinogen,Urine <2.0 mg/dL (<2.0); WBC,Urine 5 /hpf (0-5)
[2023-07-19 10:47] LABS: Basophils % (A) 0 %; Eosinophils # (A) 0.4 k/uL (0-0.7); Eosinophils % (A) 3 %; HCT 44.6 % (34.0-46.0); HGB 14.4 gm/dL (11.4-16.0); Lymphocytes # (A) 2.7 k/uL (1.0-4.8); Lymphocytes % (A) 22 %; MCH 27.5 pg (25.0-35.0); MCHC 32.2 g/dL (31.0-37.0); MCV 85.2 fL (80.0-100.0); Monocytes # (A) 0.7 k/uL (0-1.0); Monocytes % (A) 6 %; Neutrophils # (A) 8.2 k/uL (1.3-7.7); Neutrophils % (A) 67 %; Platelet Count 461 k/uL (150-450); RBC 5.24 m/uL (3.80-5.40); RDW 13.8 % (11.5-15.5); WBC 12.4 k/uL (3.8-10.6)
[2023-07-19 11:00] LABS: ALT 36 U/L (4-34); AST 26 U/L (14-36); African American GFR (CKD) >90 (>60 ml/min/1.73 sqM); Alkaline Phosphatase 89 U/L (38-126); Anion Gap 10 mmol/L; Blood Urea Nitrogen 22 mg/dL (7-17); Calcium 9.4 mg/dL (8.4-10.2); Carbon Dioxide 31 mmol/L (22-30); Chloride 96 mmol/L (98-107); Glucose 113 mg/dL (74-99); Non-African American GFR(CKD) >90 (>60 ml/min/1.73 sqM); Potassium 4.2 mmol/L (3.5-5.1); Sodium 137 mmol/L (137-145); Total Bilirubin 0.5 mg/dL (0.2-1.3); Total Protein 6.8 g/dL (6.3-8.2)
[2023-07-19] MEDS ORDERED: HYDROmorphone 1 MG/ML 1 ML SYRINGE IVP STA ×4 (11:46→21:06)
[2023-07-19 11:48] VITALS: TEMP 98.1
--- NOTE | 2023-07-19 12:31 | CT ---
EXAMINATION TYPE: CT abdomen pelvis wo con CT DLP: 721.8 mGycm, Automated exposure control for dose reduction was used. DATE OF EXAM: 07/19/2023 11:41 AM COMPARISON: CLINICAL INDICATION:Female, 48 years old with history of Flank pain; pt c/o UTI, painful urination x1 week TECHNIQUE: Axial CT of the abdomen and pelvis. Sagittal and coronal reformats were created on a [employer] workstation. Contrast used: mL of , (none if empty) Oral contrast used: without Oral Contrast (none if empty) FINDINGS: Exam is limited without contrast. LOWER CHEST: Mild bibasilar scarring or subsegmental atelectasis. ABDOMEN LIVER: Small calcified nodule on the right near the dome. Otherwise unremarkable unenhanced appearanc e. GALLBLADDER AND BILE DUCTS: The gallbladder is surgically absent. Biliary tree does not appear pathol ogically dilated. PANCREAS: Unremarkable. SPLEEN: Unremarkable. ADRENAL GLANDS: Mildly thickened, may be seen with hyperplasia.. KIDNEYS AND URETERS: No evidence of renal calculi. Vascular calcifications are seen within the pelvis . No definite ureteral calculi or hydronephrosis. PELVIS BLADDER: Unremarkable REPRODUCTIVE: The uterus appears absent, correlate for hysterectomy. No adnexal abnormality is seen. ABDOMEN & PELVIS STOMACH AND BOWEL: Stomach and small bowel are nondistended, no evidence of obstruction. Appendix n ot seen, may be surgically absent as there is suture material along the cecum. Some segments of colon are nondistended and not well assessed. There is mild stool and gas throughout with no definite foca l abnormality seen. PERITONEUM/RETROPERITONEUM: No evidence of pneumoperitoneum or free fluid. VASCULATURE: Mild atherosclerotic calcifications are present throughout the abdominal aorta and its b ranches. No evidence of aortic aneurysm. LYMPH NODES: No gross evidence for lymphadenopathy. SOFT TISSUE/ABDOMINAL WALL: Injection granulomas in the gluteal regions. MUSCULOSKELETAL: No acute osseous abnormalities. Mild disc degeneration changes are present throughou t the thoracolumbar spine. IMPRESSION: No evidence of urinary tract calculi or hydronephrosis. Otherwise limited unenhanced study shows no acute inflammatory or obstructive process in the abdomen or pelvis.
--- NOTE | 2023-07-19 14:52 | US ---
EXAMINATION TYPE: US transvaginal DATE OF EXAM: 07/19/2023 COMPARISON: NONE CLINICAL INDICATION: Female, 48 years old with history of Pelvic pain; TECHNIQUE: . Transabdominal sonographic images of the pelvis were acquired. Transvaginal sonographi c images were Initially ordered Date of LMP: EXAM MEASUREMENTS: Uterus: Surgically absent cm Endometrial Stripe: Surgically absent cm Right Ovary: Non Vis cm Left Ovary: Surgically absent cm Non Diagnostic exam - patient not able to handle TV exam, or TA pressure. IMPRESSION: 1. Nondiagnostic pelvic ultrasound.
[2023-07-19] MEDS ORDERED: ORPHENADRINE 30 MG/ML 2 ML VIAL IVP STA (15:26)
[2023-07-19] MEDS ORDERED: SODIUM CHLORIDE 0.9% 2,000 ML IV STA (15:30)
[2023-07-19] MEDS ORDERED: methylPREDNISolone SOD SUCCI 125 MG/2 ML VIAL IV STA (15:56)
[2023-07-19] MEDS ORDERED: diphenhydrAMINE 50 MG/ML 1 ML VIAL IVP STA (15:56)
[2023-07-19] MEDS ORDERED: IPRATROPIUM-ALBUTEROL 3 ML NEB INHALATION STA (16:08)
--- NOTE | 2023-07-19 20:10 | US ---
EXAMINATION TYPE: US pelvic limited DATE OF EXAM: 07/19/2023 COMPARISON: US and CT done today CLINICAL INDICATION: Female, 48 years old with history of Right pelvic pain; Bilateral pelvic pain. P t has a UTI. PA wanted right side evaluated again with full bladder to look for rt ovary. Hysterectom y and left oophorectomy. TECHNIQUE: . Transabdominal sonographic images of the pelvis were acquired focused on the right adne xa. Date of LMP: Years ago FINDINGS: Right Ovary: Not visualized.. Right Adnexa: No obvious abnormality seen. IMPRESSION: Scanning in the right adnexa fails to demonstrate the ovary, may be absent or obscured by bowel gas. No adnexal abnormality is otherwise seen.
[2023-07-19 21:22] VITALS: BP 170/94; PULSE 100; RESP 18
== END 2023-07-19 21:18 | disposition home or self-care (01) ==
LOC: EC 09:31
DX: R10.31 Right lower quadrant pain (principal); I11.0 Hypertensive heart disease with heart failure; I50.9 Heart failure, unspecified; J44.9 Chronic obstructive pulmonary disease, unspecified; F41.9 Anxiety disorder, unspecified; F31.9 Bipolar disorder, unspecified; F12.90 Cannabis use, unspecified, uncomplicated; F17.290 Nicotine dependence, other tobacco product, uncomplicated; Z79.899 Other long term (current) drug therapy; Z91.048 Other nonmedicinal substance allergy status; Z88.0 Allergy status to penicillin; Z88.2 Allergy status to sulfonamides; Z88.5 Allergy status to narcotic agent; Z88.8 Allergy status to other drugs, medicaments and biological substances; Z91.013 Allergy to seafood
CPT/HCPCS: 36415; 94640; 80053; 83605; 85025; 86140; 81001; 81025; 76857; 76830; 74176; 99284; 96374; 96375 ×4; 96376 ×4; 96361 ×5; J2270; J1200; J2360; J2930; J2405; J1170

== ENCOUNTER 2024-02-15 23:28 | Emergency (ER) | payer MEDICARE ==
[2024-02-16] MEDS: HYDROmorphone 1 MG/ML 1 ML SYRINGE IVP STA (00:25)
[2024-02-16] MEDS: ONDANSETRON 4 MG/2 ML VIAL IVP STA (00:25)
[2024-02-16] MEDS: SODIUM CHLORIDE 0.9% 1,000 ML IV STA (00:26)
[2024-02-16 00:30] LABS: Basophils % (A) 1 %; Eosinophils # (A) 0.1 k/uL (0-0.7); Eosinophils % (A) 1 %; HCT 48.6 % (34.0-46.0); Hypochromasia Slight; Lymphocytes # (A) 3.4 k/uL (1.0-4.8); Lymphocytes % (A) 36 %; MCH 27.3 pg (25.0-35.0); MCHC 30.8 g/dL (31.0-37.0); MCV 88.5 fL (80.0-100.0); Mean Platelet Volume 7.2; Monocytes # (A) 0.7 k/uL (0-1.0); Monocytes % (A) 8 %; Neutrophils # (A) 4.9 k/uL (1.3-7.7); Neutrophils % (A) 52 %; Platelet Count 443 k/uL (150-450); RBC 5.49 m/uL (3.80-5.40); WBC 9.4 k/uL (3.8-10.6)
[2024-02-16 00:36] LABS: Appearance,Urine Cloudy (Clear); Bacteria,Urine Rare /hpf; Bilirubin,Urine Negative (Negative); Blood,Urine Small (Negative); Calcium Oxalate Crystals,Urine Moderate /hpf; Color,Urine Yellow; Glucose,Urine (UA) Negative (Negative); Ketones,Urine Trace (Negative); Leukocyte Esterase,Urine Trace (Negative); Mucus,Urine Many /hpf; Nitrite,Urine Negative (Negative); PH, Urine 5.5 (5.0-8.0); Protein,Urine 1+ (Negative); RBC,Urine 2 /hpf (0-5); Specific Gravity,Urine 1.041 (1.001-1.035); Squamous Epithelial Cell,Urine 3 /hpf (0-4); WBC,Urine 6 /hpf (0-5)
[2024-02-16 00:58] LABS: ALT 13 U/L (4-34); AST 20 U/L (14-36); African American GFR (CKD) >90 (>60 ml/min/1.73 sqM); Albumin 4.4 g/dL (3.5-5.0); Alkaline Phosphatase 75 U/L (38-126); Amylase 51 U/L (30-110); Anion Gap 9 mmol/L; Blood Urea Nitrogen 21 mg/dL (7-17); Calcium 9.9 mg/dL (8.4-10.2); Carbon Dioxide 29 mmol/L (22-30); Chloride 102 mmol/L (98-107); Glucose 125 mg/dL (74-99); Lipase 102 U/L (23-300); Non-African American GFR(CKD) >90 (>60 ml/min/1.73 sqM); Potassium 3.7 mmol/L (3.5-5.1); Sodium 140 mmol/L (137-145); Total Bilirubin 0.3 mg/dL (0.2-1.3); Total Protein 6.8 g/dL (6.3-8.2)
--- NOTE | 2024-02-16 01:06 | CT ---
EXAM: CT Abdomen and Pelvis Without Intravenous Contrast CLINICAL HISTORY: ITS.REASON CT Reason: L flank pain TECHNIQUE: Axial computed tomography images of the abdomen and pelvis without intravenous contrast. CTDI is 13.1 mGy and DLP is 747.1 mGy-cm. This CT exam was performed using one or more of the following dose reduction techniques: automated exposure control, adjustment of the mA and/or kV according to patient size, and/or use of iterative reconstruction technique. COMPARISON: No relevant prior studies available. FINDINGS: Lung bases: Unremarkable. No mass. No consolidation. ABDOMEN: Liver: Hepatic steatosis. Gallbladder and bile ducts: Cholecystectomy. No ductal dilation. Pancreas: Unremarkable. No ductal dilation. Spleen: Unremarkable. No splenomegaly. Adrenals: Unremarkable. No mass. Kidneys and ureters: Unremarkable. No hydronephrosis, nephrolithiasis, or obstructive uropathy. Stomach and bowel: Diverticulosis, without acute diverticulitis. No small bowel obstruction. No free intraperitoneal air. PELVIS: Appendix: Appendectomy. Bladder: Unremarkable. No stones. Reproductive: Hysterectomy. ABDOMEN and PELVIS: Intraperitoneal space: Unremarkable. No free air. No significant fluid collection. Bones/joints: Degenerative changes of the spine. No acute fracture. No dislocation. Soft tissues: Unremarkable. Vasculature: Atherosclerotic changes of the aorta. No abdominal aortic aneurysm. Lymph nodes: Unremarkable. No enlarged lymph nodes. IMPRESSION: 1. No hydronephrosis, nephrolithiasis, or obstructive uropathy. 2. Diverticulosis, without acute diverticulitis. No small bowel obstruction. No free intraperitoneal air. 3. Appendectomy.
[2024-02-16] MEDS: LIDOCAINE 4% PATCH TOPICAL ONE (02:04)
--- NOTE | 2024-02-16 02:10 | ED ---
Abdominal Pain HPI - General Chief Complaint: Abdominal Pain Stated Complaint: Abd Pain Time Seen by Provider: 02/15/24 23:42 Source: patient, EMS Mode of arrival: EMS Limitations: no limitations - History of Present Illness Initial Comments: 49-year-old female presenting with chief complaint of left flank pain. Pain started today. Patient does have history of kidney stones. She admits to nausea with no vomiting. She has had diarrhea as well. No hematochezia. No hematuria. No fevers. She does admit to mild dysuria. No chest pain or difficulty breathing. No injury or trauma. - Related Data Home Medications Medication Instructions Recorded Confirmed Spironolactone [Aldactone] 25 mg PO DAILY 02/05/17 05/29/23 Citalopram Hydrobromide [CeleXA] 40 mg PO DAILY 06/12/19 05/29/23 Dicyclomine [Bentyl] 10 mg PO QID PRN 05/28/20 05/29/23 carvediloL [Coreg] 25 mg PO BID 03/26/21 05/29/23 oxyCODONE-APAP 10-325MG [Percocet 1 tab PO TID PRN 03/16/22 05/29/23 10-325 mg] Naloxone HCl [Narcan] 4 mg NASAL ONCE PRN 05/29/22 05/29/23 QUEtiapine [SEROquel] 100 mg PO DAILY 07/21/22 05/29/23 QUEtiapine [SEROquel] 150 mg PO HS 07/21/22 05/29/23 Citalopram Hydrobromide [CeleXA] 20 mg PO DAILY 01/27/23 05/29/23 Pantoprazole [Protonix] 40 mg PO DAILY 05/29/23 05/29/23 hydrALAZINE HCL 25 mg PO TID 05/29/23 05/29/23 Previous Rx's Medication Instructions Recorded amLODIPine [Norvasc] 10 mg PO DAILY 30 Days #30 tab 09/27/22 Albuterol Inhaler [Ventolin Hfa 2 puff INHALATION RT-QID 30 Days 06/01/23 Inhaler] #1 each Budesonide-Formot 160-4.5 Mcg 2 puff INHALATION RT-BID #1 each 06/01/23 [Symbicort 160-4.5 Mcg Inhaler] Fluticasone Nasal [place] [Flonase 2 spray EA NOSTRIL DAILY #1 unit 06/01/23 Nasal [place]] Ipratropium-Albuterol Nebulize 3 ml INHALATION RT-QID #120 each 06/01/23 [Duoneb 0.5 mg-3 mg/3 ml Soln] Loratadine [Claritin] 10 mg PO DAILY #30 tab 06/01/23 predniSONE 50 mg PO DAILY #5 tablet 06/01/23 Nitrofurantoin Monohyd/M-Cryst 100 mg PO Q12HR 5 Days #10 cap 02/16/24 [Macrobid] Allergies Allergy/AdvReac Type Severity Reaction Status Date / Time adhesive Allergy Rash/Hives Verified 07/19/23 09:53 amoxicillin Allergy Anaphylaxis Verified 07/19/23 09:53 azithromycin [From Zithromax] Allergy Anaphylaxis Verified 07/19/23 09:53 cephalexin monohydrate Allergy Anaphylaxis Verified 07/19/23 09:53 [From Keflex] ciprofloxacin Allergy Anaphylaxis Verified 07/19/23 09:53 clindamycin Allergy Anaphylaxis Verified 07/19/23 09:53 Iodinated Contrast Media Allergy Anaphylaxis Verified 07/19/23 09:53 [Iodinated Contrast- Oral and IV Dye] ketorolac [From Toradol] Allergy Unknown Verified 07/19/23 09:53 levofloxacin [From Levaquin] Allergy Rash/Hives Verified 07/19/23 09:53 naproxen Allergy Anaphylaxis Verified 07/19/23 09:53 NSAIDS (Non-Steroidal Allergy Rash/Hives Verified 07/19/23 09:53 Anti-Inflamma orphenadrine [From Norflex] Allergy Anaphylaxis Verified 07/19/23 16:06 shellfish derived Allergy Anaphylaxis Verified 07/19/23 09:53 Sulfa (Sulfonamide Allergy Anaphylaxis Verified 07/19/23 09:53 Antibiotics) sulfamethoxazole Allergy Anaphylaxis Verified 07/19/23 09:53 [From Bactrim] tramadol Allergy Unknown Verified 07/19/23 09:53 trimethoprim [From Bactrim] Allergy Anaphylaxis Verified 07/19/23 09:53 Review of Systems ROS Statement: Those systems with pertinent positive or pertinent negative responses have been documented in the HPI. ROS Other: All systems not noted in ROS Statement are negative. 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 IBS, cellulitis of the chin, CVA about 1 year ago(no residual) History of Any Multi-Drug Resistant Organisms: MRSA Date of last positivie culture/infection: 07/2016 MDRO Source:: Chin Past Surgical History: Appendectomy, Section, Cholecystectomy, Hysterectomy, Tubal Ligation Additional Past Surgical History / Comment(s): oral surgery . Pancreas biopsy May 2015. Past Anesthesia/Blood Transfusion Reactions: No Reported Reaction Past Psychological History: ADD/ADHD, Anxiety, Bipolar, Depression Smoking Status: Current every day smoker, Current some day smoker, Vaper Past Alcohol Use History: None Reported Past Drug Use History: Marijuana - Past Family History Father History Unknown: Yes Family Medical History: No Reported History Additional Family Medical History / Comment(s): Pt adopted Mother History Unknown: Yes Additional Family Medical History / Comment(s): Pt adopted General Exam Limitations: no limitations General appearance: alert, in no apparent distress Head exam: Present: atraumatic, normocephalic Eye exam: Present: normal appearance, EOMI Neck exam: Present: normal inspection. Absent: meningismus Respiratory exam: Present: normal lung sounds bilaterally. Absent: respiratory distress, wheezes, rales, rhonchi, stridor Cardiovascular Exam: Present: regular rate, normal rhythm, normal heart sounds. Absent: systolic murmur, diastolic murmur, rubs, gallop, clicks GI/Abdominal exam: Present: soft. Absent: distended, tenderness, guarding, rebound, rigid Neurological exam: Present: alert, oriented X3 Psychiatric exam: Present: normal affect, normal mood Skin exam: Present: normal color Course Vital Signs 02/15/24 02/16/24 02/16/24 23:35 02:10 02:36 Temperature 98.2 F 98.0 F 98.3 F Pulse Rate 110 H 103 H 79 Respiratory 18 20 22 Rate Blood Pressure 124/80 181/96 145/79 O2 Sat by Pulse 98 98 98 Oximetry Medical Decision Making - Medical Decision Making Was pt. sent in by a medical professional or institution (, [place], LICENSED MASSAGE PRACTITIONER, urgent care, hospital, or alf...) When possible be specific @ -No Did you speak to anyone other than the patient for history (EMS, parent, family, police, friend...)? What history was obtained from this source @ -No Did you review nursing and triage notes (agree or disagree)? Why? @ -I reviewed and agree with nursing and triage notes Were old charts reviewed (outside hosp., previous admission, EMS record, old EKG, old radiological studies, urgent care reports/EKG's, alf records)? Report findings @ -No old charts were reviewed Differential Diagnosis (chest pain, altered mental status, abdominal pain women, abdominal pain men, vaginal bleeding, weakness, fever, dyspnea, syncope, headache, dizziness, GI bleed, back pain, seizure, CVA, palpatations, mental health, musculoskeletal)? @ -MDM Differential Abdominal Pain Men: Appendicitis, cholecystitis, diverticulosis, ischemic bowel, pancreatitis, hepatitis, UTI, gastroenteritis, AAA, incarcerated hernia, bowel obstruction, co nstipation, inflammatory bowel, hepatitis, peptic ulcer disease, splenic infarction, perforated viscus, testicular torsion... This is not meant to be an all-inclusive list EKG interpreted by me (3pts min.). @ -As above X-rays interpreted by me (1pt min.). @ -None done CT interpreted by me (1pt min.). @ -CT shows no hydronephrosis nephrolithiasis or obstructive uropathy. Diverticulosis without acute diverticulitis. No small bowel obstruction. No free intraperitoneal air. Appendectomy. U/S interpreted by me (1pt. min.). @ -None done What testing was considered but not performed or refused? (CT, X-rays, U/S, labs)? Why? @ -None What meds were considered but not given or refused? Why? @ -None Did you discuss the management of the patient with other professionals (professionals i.e. DrCorinne, PA, LICENSED MASSAGE PRACTITIONER, lab, RT, psych nurse, social media developer, swinging cut off saw operator, teacher, special weapons unit officer, shoe caser)? Give summary @ -No Was smoking cessation discussed for >3mins.? @ -No Was critical care preformed (if so, how long)? @ -No Were there social determinants of health that impacted care today? How? ([place] elessness, low income, unemployed, alcoholism, drug addiction, transportation, low edu. Level, literacy, decrease access to med. care, usp, rehab)? @ -No Was there de-escalation of care discussed even if they declined (Discuss DNR or withdrawal of care, Hospice)? DNR status @ -No What co-morbidities impacted this encounter? (DM, HTN, Smoking, COPD, CAD, Cancer, CVA, ARF, Chemo, Hep., AIDS, mental health diagnosis, sleep apnea, morbid obesity)? @ -None Was patient admitted / discharged? Hospital course, mention meds given and route, prescriptions, significant lab abnormalities, going to OR and other pertinent info. @ -49-year-old female presenting with chief complaint of left flank pain. History and physical exam are conducted. Lab work shows no leukocytosis or anemia. Lactic acid is WNL. Urine shows trace leukocytes small blood. CT shows no obstructive uropathy or other acute process. Patient is treated with pain medication. Educated on today's findings and discharged home. Follow-up with PCP. Report back to ER with any new or worsening symptoms. Discussed return parameters and answered all questions. Patient conveyed verbal understanding and agreed to the plan. I discussed this case in detail with my attending Dr. Collier Undiagnosed new problem with uncertain prognosis? @ -No Drug Therapy requiring intensive monitoring for toxicity (Heparin, Nitro, Insulin, Cardizem)? @ -No Were any procedures done? @ -No Diagnosis/symptom? @ -Flank pain Acute, or Chronic, or Acute on Chronic? @ -Acute Uncomplicated (without systemic symptoms) or Complicated (systemic symptoms)? @ -Uncomplicated Side effects of treatment? @ -No Exacerbation, Progression, or Severe Exacerbation? @ -No Poses a threat to life or bodily function? How? (Chest pain, USA, PR, pneumonia, PE, COPD, DKA, ARF, appy, cholecystitis, CVA, Diverticulitis, Homicidal, Suicidal, threat to staff... and all critical care pts) @ -Low likelihood - Lab Data Result diagrams: 02/16/24 00:09 02/16/24 00:09 Lab Results 02/16/24 02/16/24 02/16/24 Range/Units 00:09 00:09 00:09 WBC 9.4 (3.8-10.6) k/uL RBC 5.49 H (3.80-5.40) m/uL Hgb 15.0 (11.4-16.0) gm/dL Hct 48.6 H (34.0-46.0) % MCV 88.5 (80.0-100.0) fL MCH 27.3 (25.0-35.0) pg MCHC 30.8 L (31.0-37.0) g/dL RDW 14.0 (11.5-15.5) % Plt Count 443 (150-450) k/uL MPV 7.2 Neutrophils % 52 % Lymphocytes % 36 % Monocytes % 8 % Eosinophils % 1 % Basophils % 1 % Neutrophils # 4.9 (1.3-7.7) k/uL Lymphocytes # 3.4 (1.0-4.8) k/uL Monocytes # 0.7 (0-1.0) k/uL Eosinophils # 0.1 (0-0.7) k/uL Basophils # 0.0 (0-0.2) k/uL Hypochromasia Slight Sodium 140 (137-145) mmol/L Potassium 3.7 (3.5-5.1) mmol/L Chloride 102 (98-107) mmol/L Carbon Dioxide 29 (22-30) mmol/L Anion Gap 9 mmol/L BUN 21 H (7-17) mg/dL Creatinine 0.68 (0.52-1.04) mg/dL Est GFR (CKD-EPI)AfAm >90 (>60 ml/min/1.73 sqM) Est GFR (CKD-EPI)NonAf >90 (>60 ml/min/1.73 sqM) Glucose 125 H (74-99) mg/dL Plasma Lactic Acid Srinivas (0.7-2.0) mmol/L Calcium 9.9 (8.4-10.2) mg/dL Total Bilirubin 0.3 (0.2-1.3) mg/dL AST 20 (14-36) U/L ALT 13 (4-34) U/L Alkaline Phosphatase 75 (38-126) U/L Total Protein 6.8 (6.3-8.2) g/dL Albumin 4.4 (3.5-5.0) g/dL Amylase 51 (30-110) U/L Lipase 102 (23-300) U/L Urine Color Yellow Urine Appearance Cloudy H (Clear) Urine pH 5.5 (5.0-8.0) Ur Specific [place] 1.041 H (1.001-1.035) Urine Protein 1+ H (Negative) Urine Glucose (UA) Negative (Negative) Urine Ketones Trace H (Negative) Urine Blood Small H (Negative) Urine Nitrite Negative (Negative) Urine Bilirubin Negative (Negative) Urine Urobilinogen 3.0 (<2.0) mg/dL Ur Leukocyte Esterase Trace H (Negative) Urine RBC 2 (0-5) /hpf Urine WBC 6 H (0-5) /hpf Ur Squamous Epith Cells 3 (0-4) /hpf Calcium Oxalate Crystal Moderate H (None) /hpf Urine Bacteria Rare H (None) /hpf Urine Mucus Many H (None) /hpf 02/16/24 Range/Units 00:30 WBC (3.8-10.6) k/uL RBC (3.80-5.40) m/uL Hgb (11.4-16.0) gm/dL Hct (34.0-46.0) % MCV (80.0-100.0) fL MCH (25.0-35.0) pg MCHC (31.0-37.0) g/dL RDW (11.5-15.5) % Plt Count (150-450) k/uL MPV Neutrophils % % Lymphocytes % % Monocytes % % Eosinophils % % Basophils % % Neutrophils # (1.3-7.7) k/uL Lymphocytes # (1.0-4.8) k/uL Monocytes # (0-1.0) k/uL Eosinophils # (0-0.7) k/uL Basophils # (0-0.2) k/uL Hypochromasia Sodium (137-145) mmol/L Potassium (3.5-5.1) mmol/L Chloride (98-107) mmol/L Carbon Dioxide (22-30) mmol/L Anion Gap mmol/L BUN (7-17) mg/dL Creatinine (0.52-1.04) mg/dL Est GFR (CKD-EPI)AfAm (>60 ml/min/1.73 sqM) Est GFR (CKD-EPI)NonAf (>60 ml/min/1.73 sqM) Glucose (74-99) mg/dL Plasma Lactic Acid Srinivas 1.3 (0.7-2.0) mmol/L Calcium (8.4-10.2) mg/dL Total Bilirubin (0.2-1.3) mg/dL AST (14-36) U/L ALT (4-34) U/L Alkaline Phosphatase (38-126) U/L Total Protein (6.3-8.2) g/dL Albumin (3.5-5.0) g/dL Amylase (30-110) U/L Lipase (23-300) U/L Urine Color Urine Appearance (Clear) Urine pH (5.0-8.0) Ur Specific [place] (1.001-1.035) Urine Protein (Negative) Urine Glucose (UA) (Negative) Urine Ketones (Negative) Urine Blood (Negative) Urine Nitrite (Negative) Urine Bilirubin (Negative) Urine Urobilinogen (<2.0) mg/dL Ur Leukocyte Esterase (Negative) Urine RBC (0-5) /hpf Urine WBC (0-5) /hpf Ur Squamous Epith Cells (0-4) /hpf Calcium Oxalate Crystal (None) /hpf Urine Bacteria (None) /hpf Urine Mucus (None) /hpf Disposition Clinical Impression: Flank pain, UTI (urinary tract infection) Disposition: HOME SELF-CARE Condition: Good Instructions (If sedation given, give patient instructions): Flank Pain (ED) Additional Instructions: Follow up with PCP. Report back to ER with any new worsening. Prescriptions: Nitrofurantoin Monohyd/M-Cryst [Macrobid] 100 mg PO Q12HR 5 Days #10 cap Is patient prescribed a controlled substance at d/c from ED?: No Referrals: Kemi Guevaar MD [Primary Care Provider] - 1-2 days Time of Disposition: 02:10
[2024-02-16] MEDS: hydrOXYzine HCL 25 MG TAB PO STA (02:30)
[2024-02-16 02:37] VITALS: BP 145/79; PULSE 79; RESP 22; TEMP 98.3
== END 2024-02-16 02:37 | disposition home or self-care (01) ==
LOC: EC 23:28
DX: N39.0 Urinary tract infection, site not specified (principal); K57.90 Diverticulosis of intestine, part unspecified, without perforation or abscess without bleeding; F17.290 Nicotine dependence, other tobacco product, uncomplicated; Z88.0 Allergy status to penicillin; Z88.1 Allergy status to other antibiotic agents; Z88.2 Allergy status to sulfonamides; Z88.5 Allergy status to narcotic agent; Z88.6 Allergy status to analgesic agent; Z91.041 Radiographic dye allergy status; Z91.09 Other allergy status, other than to drugs and biological substances; Z91.013 Allergy to seafood; Z86.73 Personal history of transient ischemic attack (TIA), and cerebral infarction without residual deficits
CPT/HCPCS: 36415; 80053; 82150; 83605; 83690; 85025; 81001; 74176; 99285; 96374; 96375; 96361 ×2; J2405; J1170

== ENCOUNTER 2024-03-17 16:45 | Emergency (ER) | payer MEDICARE ==
--- NOTE | 2024-03-17 19:00 | ED ---
General Adult HPI - General Stated complaint: L side pain Time Seen by Provider: 03/17/24 17:28 - History of Present Illness Initial comments: Dictation was produced using [employer] dictation software. please excuse any grammatical, word or spelling errors. Chief Complaint: 49-year-old female with stress-induced seizures presents with left rib pain History of Present Illness: Patient 49-year-old female she has stress-induced seizures. She states she had a stress-induced seizure recently and caused her to fall. She struck her left ribs. Patient states that she has significant pain to her left ribs with palpation. No shortness of breath. No abdominal pain. The ROS documented in this emergency department record has been reviewed and confirmed by me. Those systems with pertinent positive or negative responses have been documented in the HPI. All other systems are other negative and/or noncontributory. - Related Data Home Medications Medication Instructions Recorded Confirmed Spironolactone [Aldactone] 25 mg PO DAILY 02/05/17 05/29/23 Citalopram Hydrobromide [CeleXA] 40 mg PO DAILY 06/12/19 05/29/23 Dicyclomine [Bentyl] 10 mg PO QID PRN 05/28/20 05/29/23 carvediloL [Coreg] 25 mg PO BID 03/26/21 05/29/23 oxyCODONE-APAP 10-325MG [Percocet 1 tab PO TID PRN 03/16/22 05/29/23 10-325 mg] Naloxone HCl [Narcan] 4 mg NASAL ONCE PRN 05/29/22 05/29/23 QUEtiapine [SEROquel] 100 mg PO DAILY 07/21/22 05/29/23 QUEtiapine [SEROquel] 150 mg PO HS 07/21/22 05/29/23 Citalopram Hydrobromide [CeleXA] 20 mg PO DAILY 01/27/23 05/29/23 Pantoprazole [Protonix] 40 mg PO DAILY 05/29/23 05/29/23 hydrALAZINE HCL 25 mg PO TID 05/29/23 05/29/23 Previous Rx's Medication Instructions Recorded amLODIPine [Norvasc] 10 mg PO DAILY 30 Days #30 tab 09/27/22 Albuterol Inhaler [Ventolin Hfa 2 puff INHALATION RT-QID 30 Days 06/01/23 Inhaler] #1 each Budesonide-Formot 160-4.5 Mcg 2 puff INHALATION RT-BID #1 each 06/01/23 [Symbicort 160-4.5 Mcg Inhaler] Fluticasone Nasal [place] [Flonase 2 spray EA NOSTRIL DAILY #1 unit 06/01/23 Nasal [place]] Ipratropium-Albuterol Nebulize 3 ml INHALATION RT-QID #120 each 06/01/23 [Duoneb 0.5 mg-3 mg/3 ml Soln] Loratadine [Claritin] 10 mg PO DAILY #30 tab 06/01/23 predniSONE 50 mg PO DAILY #5 tablet 06/01/23 Nitrofurantoin Monohyd/M-Cryst 100 mg PO Q12HR 5 Days #10 cap 02/16/24 [Macrobid] Allergies Allergy/AdvReac Type Severity Reaction Status Date / Time adhesive Allergy Rash/Hives Verified 03/17/24 19:12 amoxicillin Allergy Anaphylaxis Verified 03/17/24 19:12 azithromycin [From Zithromax] Allergy Anaphylaxis Verified 03/17/24 19:12 cephalexin monohydrate Allergy Anaphylaxis Verified 03/17/24 19:12 [From Keflex] ciprofloxacin Allergy Anaphylaxis Verified 03/17/24 19:12 clindamycin Allergy Anaphylaxis Verified 03/17/24 19:12 Iodinated Contrast Media Allergy Anaphylaxis Verified 03/17/24 19:12 [Iodinated Contrast- Oral and IV Dye] ketorolac [From Toradol] Allergy Unknown Verified 03/17/24 19:12 levofloxacin [From Levaquin] Allergy Rash/Hives Verified 03/17/24 19:12 naproxen Allergy Anaphylaxis Verified 03/17/24 19:12 NSAIDS (Non-Steroidal Allergy Rash/Hives Verified 03/17/24 19:12 Anti-Inflamma orphenadrine [From Norflex] Allergy Anaphylaxis Verified 03/17/24 19:12 shellfish derived Allergy Anaphylaxis Verified 03/17/24 19:12 Sulfa (Sulfonamide Allergy Anaphylaxis Verified 03/17/24 19:12 Antibiotics) sulfamethoxazole Allergy Anaphylaxis Verified 03/17/24 19:12 [From Bactrim] tramadol Allergy Unknown Verified 03/17/24 19:12 trimethoprim [From Bactrim] Allergy Anaphylaxis Verified 07/19/23 09:53 Review of Systems ROS Statement: Those systems with pertinent positive or pertinent negative responses have been documented in the HPI. ROS Other: All systems not noted in ROS Statement are negative. 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 IBS, cellulitis of the chin, CVA about 1 year ago(no residual) History of Any Multi-Drug Resistant Organisms: MRSA Date of last positivie culture/infection: 07/2016 MDRO Source:: Chin Past Surgical History: Appendectomy, Section, Cholecystectomy, Hysterectomy, Tubal Ligation Additional Past Surgical History / Comment(s): oral surgery . Pancreas biopsy May 2015. Past Anesthesia/Blood Transfusion Reactions: No Reported Reaction Past Psychological History: ADD/ADHD, Anxiety, Bipolar, Depression Smoking Status: Current every day smoker, Current some day smoker, Vaper Past Alcohol Use History: None Reported Past Drug Use History: Marijuana - Past Family History Father History Unknown: Yes Family Medical History: No Reported History Additional Family Medical History / Comment(s): Pt adopted Mother History Unknown: Yes Additional Family Medical History / Comment(s): Pt adopted General Exam - General Exam Comments Initial Comments: PHYSICAL EXAM: General Impression: Alert and oriented x3, not in acute distress HEENT: Normocephalic atraumatic, extra-ocular movements intact, pupils equal and reactive to light bilaterally, mucous membranes moist. Cardiovascular: Heart regular rate and rhythm Chest: Able to complete full sentences, no retractions, no tachypnea, palpatory tenderness to the left ribs Abdomen: abdomen soft, non-tender, non-distended, no organomegaly Musculoskeletal: Pulses present and equal in all extremities, no peripheral edema Motor: no focal deficits noted Neurological: CN II-XII grossly intact, no focal motor or sensory deficits noted Skin: Intact with no visualized rashes Psych: Normal affect and mood Course Vital Signs 03/17/24 17:15 Temperature 98.2 F Pulse Rate 80 Respiratory 16 Rate Blood Pressure 138/80 O2 Sat by Pulse 95 Oximetry Medical Decision Making - Medical Decision Making Was pt. sent in by a medical professional or institution ([place] [place], INJURY PREVENTION COORDINATOR, urgent care, hospital, or half-way...) When possible be specific @ -No Did you speak to anyone other than the patient for history (EMS, parent, family, police, friend...)? What history was obtained from this source @ -No Did you review nursing and triage notes (agree or disagree)? Why? @ -I reviewed and agree with nursing and triage notes Were old charts reviewed (outside hosp., previous admission, EMS record, old EKG, old radiological studies, urgent care reports/EKG's, half-way records)? Report findings @ -No old charts were reviewed Differential Diagnosis (chest pain, altered mental status, abdominal pain women, abdominal pain men, vaginal bleeding, musculoskeletal, weakness, fever, dyspnea, syncope, headache, dizziness, GI bleed, back pain, seizure, CVA, palpatations, mental health)? @ -Rib fracture, chest contusion, rib strain EKG interpreted by me (3pts min.). @ -None done X-rays interpreted by me (1pt min.). @ -Chest x-ray shows no acute processes. CT interpreted by me (1pt min.). @ -None done U/S interpreted by me (1pt. min.). @ -None done What testing was considered but not performed or refused? (CT, X-rays, U/S, labs)? Why? @ -None What meds were considered but not given or refused? Why? @ -None Was smoking cessation discussed for >3mins.? @ -No Were there social determinants of health that impacted care today? How? (Homelessness, low income, unemployed, alcoholism, drug addiction, transportation, low edu. Level, literacy, decrease access to med. care, snf, rehab)? @ -No Was there de-escalation of care discussed even if they declined (Discuss DNR or withdrawal of care, Hospice)? DNR status @ -No What co-morbidities impacted this encounter? (DM, HTN, Smoking, COPD, CAD, Cancer, CVA, ARF, Chemo, Hep., AIDS, mental health diagnosis, sleep apnea, morbid obesity)? @ -None Was patient admitted / discharged? Hospital course, mention meds given and route, prescriptions, significant lab abnormalities, going to OR and other pertinent info. @ -49-year-old female presents with rib contusion. Vital signs stable. X-ray shows no acute processes. Patient given analgesics and discharged advised follow-up with primary care doctor. Did you discuss the management of the patient with other professionals (professionals i.e. , PA, INJURY PREVENTION COORDINATOR, lab, RT, psych nurse, social insurance analyst, set up mechanic coating machines, teacher, staff readiness officer, case supervisor)? Give summary @ -No Was critical care preformed (if so, how long)? @ -No Undiagnosed new problem with uncertain prognosis? @ -No Drug Therapy requiring intensive monitoring for toxicity (Heparin, Nitro, Insulin, Cardizem)? @ -No Were any procedures done? @ -No Diagnosis/symptom? Acute, or Chronic, or Acute on Chronic? Uncomplicated (without systemic symptoms) or Complicated (systemic symptoms)? @ -Rib contusion Side effects of treatment? @ -No Exacerbation, Progression, or Severe Exacerbation? @ -No Poses a threat to life or bodily function? How? (Chest pain, USA, [place], pneumonia, PE, COPD, DKA, ARF, appy, cholecystitis, CVA, Diverticulitis, Homicidal, Suicidal, threat to staff... and all critical care pts) @ -yes Disposition Clinical Impression: Rib contusion Disposition: HOME SELF-CARE Condition: Good Instructions (If sedation given, give patient instructions): Contusion in Adults (ED) Is patient prescribed a controlled substance at d/c from ED?: No Referrals: Kemi Guevara MD [Primary Care Provider] - 1-2 days Time of Disposition: 20:36
[2024-03-17 19:10] VITALS: BP 138/80; PULSE 80; RESP 16; TEMP 98.2
[2024-03-17] MEDS: MORPHINE SULFATE 4 MG/ML SYRINGE IM STA (19:19)
[2024-03-17] MEDS: HYDROcodone/APAP 5-325MG 1 EACH TAB PO STA (19:38)
[2024-03-17] MEDS: LIDOCAINE 4% PATCH TOPICAL ONE (19:39)
--- NOTE | 2024-03-17 20:18 | XR ---
EXAMINATION TYPE: XR chest 2V DATE OF EXAM: 03/17/2024 7:51 PM CLINICAL INDICATION: Female, 49 years old with history of rib injury; [facility] COMPARISON: Chest radiographs from 05/29/2023 TECHNIQUE: XR chest 2V Frontal view of the chest. FINDINGS: Lungs/Pleura: There is no evidence of pleural effusion, focal consolidation, or pneumothorax. Pulmonary vascularity: Unremarkable. Heart/mediastinum: Cardiomediastinal silhouette is unremarkable. Musculoskeletal: No acute osseous pathology. IMPRESSION: No acute cardiopulmonary disease/process.
--- NOTE | 2024-03-17 20:23 | XR ---
EXAMINATION TYPE: XR ribs LT DATE OF EXAM: 03/17/2024 7:51 PM CLINICAL INDICATION: Female, 49 years old with history of rib injury; [facility] COMPARISON: None TECHNIQUE: XR ribs LT; Frontal and oblique views of the ribs with frontal chest radiograph. FINDINGS: The ribs have a normal appearance. No evidence of fracture. Overall, the lungs are clear. The cardiac silhouette is normal in size. The remaining osseous structures are intact. Right upper quadrant cholecystectomy clips. IMPRESSION: No displaced rib fracture visualized
[2024-03-17] MEDS: oxyCODONE-APAP 7.5-325MG 1 EACH TAB PO STA (21:24)
== END 2024-03-17 23:33 | disposition home or self-care (01) ==
LOC: EC 16:45
CPT/HCPCS: 71046; 96372; 99283

== ENCOUNTER 2024-04-02 19:17 | Inpatient (IN) | payer MEDICARE ==
[2024-04-02] MEDS: IPRATROPIUM-ALBUTEROL 3 ML NEB INHALATION STA (19:30)
[2024-04-02 19:55] LABS: Basophils % (A) 0 %; Eosinophils # (A) 0.3 k/uL (0-0.7); Eosinophils % (A) 4 %; HCT 40.9 % (34.0-46.0); HGB 12.6 gm/dL (11.4-16.0); Hypochromasia Moderate; Lymphocytes # (A) 2.3 k/uL (1.0-4.8); Lymphocytes % (A) 32 %; MCHC 30.9 g/dL (31.0-37.0); MCV 90.5 fL (80.0-100.0); Mean Platelet Volume 7.5; Monocytes # (A) 0.6 k/uL (0-1.0); Monocytes % (A) 8 %; Neutrophils # (A) 3.8 k/uL (1.3-7.7); Neutrophils % (A) 54 %; Platelet Count 252 k/uL (150-450); RBC 4.52 m/uL (3.80-5.40); RDW 12.7 % (11.5-15.5)
[2024-04-02] MEDS: MAGNESIUM SULFATE-D5W PMX 1 GM in DEXTROSE/WATER 1 100ML.BAG IVPB STA (19:57)
[2024-04-02] MEDS: methylPREDNISolone SOD SUCCI 125 MG/2 ML VIAL IV STA (19:59)
[2024-04-02 20:17] LABS: ALT 13 U/L (4-34); African American GFR (CKD) >90 (>60 ml/min/1.73 sqM); Anion Gap 3 mmol/L; Blood Urea Nitrogen 13 mg/dL (7-17); Calcium 8.4 mg/dL (8.4-10.2); Carbon Dioxide 37 mmol/L (22-30); Chloride 97 mmol/L (98-107); Glucose 91 mg/dL (74-99); Non-African American GFR(CKD) >90 (>60 ml/min/1.73 sqM); Sodium 137 mmol/L (137-145); Total Bilirubin 0.5 mg/dL (0.2-1.3)
[2024-04-02 20:18] LABS: AST 24 U/L (14-36); Albumin 3.6 g/dL (3.5-5.0); Alkaline Phosphatase 67 U/L (38-126); Magnesium 1.5 mg/dL (1.6-2.3); Potassium 4.7 mmol/L (3.5-5.1)
[2024-04-02 20:25] LABS: NT-Pro-B-Type Natriuretic Pept 1060 pg/mL
--- NOTE | 2024-04-02 20:38 | XR ---
EXAMINATION TYPE: XR chest 2V DATE OF EXAM: 04/02/2024 8:12 PM CLINICAL INDICATION: Female, 49 years old with history of difficulty breathing; [facility] COMPARISON: Chest radiographs from 03/17/2024 TECHNIQUE: XR chest 2V Frontal view of the chest. FINDINGS: Lungs/Pleura: There is no evidence of pleural effusion, focal consolidation, or pneumothorax. Pulmonary vascularity: Unremarkable. Heart/mediastinum: Cardiomediastinal silhouette is unremarkable. Musculoskeletal: No acute osseous pathology. IMPRESSION: No acute cardiopulmonary disease/process. [facility] Katiana Ames, , 04/02/2024 8:36 PM
--- NOTE | 2024-04-02 20:44 | ED ---
General Adult HPI - General Chief complaint: Shortness of Breath Stated complaint: SOB Time Seen by Provider: 04/02/24 19:20 Source: patient, EMS, RN notes reviewed, old records reviewed Mode of arrival: EMS Limitations: no limitations - History of Present Illness Initial comments: Patient is a 49-year-old female with past medical history remarkable for COPD, CHF, hypertension, fibromyalgia who presents emergency department complaining of shortness of breath. Is been getting worse over the last few days. Denies any significant productive cough but does endorse worsening dyspnea that it does not seem to be responding to her breathing treatments. Usually uses oxygen only at night but has been needing to use her 2 L nasal cannula oxygen during the day as well. She called EMS after multiple breathing treatments at home were not impro ving her symptoms today. Denies any chest pain other than chronic chest tightness which is present when her COPD flares up. Denies fevers, chills, cough. Denies any sick contacts. Denies nausea or vomiting or abdominal pain. Presents for further evaluation at this time. Denies any worsening lower extremity swelling. - Related Data Home Medications Medication Instructions Recorded Confirmed Spironolactone [Aldactone] 25 mg PO DAILY 02/05/17 04/02/24 carvediloL [Coreg] 25 mg PO BID 03/26/21 04/02/24 oxyCODONE-APAP 10-325MG [Percocet 1 tab PO TID 03/16/22 04/02/24 10-325 mg] Citalopram Hydrobromide [CeleXA] 60 mg PO DAILY 01/27/23 04/02/24 Pantoprazole [Protonix] 40 mg PO DAILY 05/29/23 04/02/24 Albuterol Inhaler [Ventolin Hfa 2 puff INHALATION RT-QID PRN 04/02/24 04/02/24 Inhaler] Famotidine 20 mg PO BID 04/02/24 04/02/24 Losartan [Cozaar] 50 mg PO DAILY 04/02/24 04/02/24 Montelukast [Singulair] 10 mg PO HS PRN 04/02/24 04/02/24 Rosuvastatin Calcium [Crestor] 5 mg PO DAILY 04/02/24 04/02/24 Xanax(Unknown Dose) 1 tab PO DAILY PRN 04/02/24 04/02/24 rOPINIRole HCL [Requip] 0.25 mg PO HS 04/02/24 04/02/24 traZODone HCL [Desyrel] 50 mg PO HS 04/02/24 04/02/24 Allergies Allergy/AdvReac Type Severity Reaction Status Date / Time adhesive Allergy Rash/Hives Verified 04/02/24 20:29 amoxicillin Allergy Anaphylaxis Verified 04/02/24 20:29 azithromycin [From Zithromax] Allergy Anaphylaxis Verified 04/02/24 20:29 cephalexin monohydrate Allergy Anaphylaxis Verified 04/02/24 20:29 [From Keflex] ciprofloxacin Allergy Anaphylaxis Verified 04/02/24 20:29 clindamycin Allergy Anaphylaxis Verified 04/02/24 20:29 Iodinated Contrast Media Allergy Anaphylaxis Verified 04/02/24 20:29 [Iodinated Contrast- Oral and IV Dye] ketorolac [From Toradol] Allergy Unknown Verified 04/02/24 20:29 levofloxacin [From Levaquin] Allergy Rash/Hives Verified 04/02/24 20:29 naproxen Allergy Anaphylaxis Verified 04/02/24 20:29 NSAIDS (Non-Steroidal Allergy Rash/Hives Verified 04/02/24 20:29 Anti-Inflamma orphenadrine [From Norflex] Allergy Anaphylaxis Verified 04/02/24 20:29 shellfish derived Allergy Anaphylaxis Verified 04/02/24 20:29 Sulfa (Sulfonamide Allergy Anaphylaxis Verified 04/02/24 20:29 Antibiotics) sulfamethoxazole Allergy Anaphylaxis Verified 04/02/24 20:29 [From Bactrim] tramadol Allergy Unknown Verified 04/02/24 20:29 trimethoprim [From Bactrim] Allergy Anaphylaxis Verified 04/02/24 20:29 Review of Systems ROS Statement: Those systems with pertinent positive or pertinent negative responses have been documented in the HPI. Review of Systems: CONST: Denies fever EYES: Denies blurry vision ENT: Denies nasal congestion C/V: Denies Chest pain RESP: Endorses dyspnea GI: Denies abdominal pain : Denies dysuria SKIN: Denies rash. MSK: Denies joint pain. NEURO: Denies headache ROS Other: All systems not noted in ROS Statement are negative. 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 IBS, cellulitis of the chin, CVA about 1 year ago(no residual) History of Any Multi-Drug Resistant Organisms: MRSA Date of last positivie culture/infection: 07/2016 MDRO Source:: Chin Past Surgical History: Appendectomy, Section, Cholecystectomy, Hysterectomy, Tubal Ligation Additional Past Surgical History / Comment(s): oral surgery . Pancreas biopsy May 2015. Past Anesthesia/Blood Transfusion Reactions: No Reported Reaction Past Psychological History: ADD/ADHD, Anxiety, Bipolar, Depression Smoking Status: Current every day smoker, Current some day smoker, Vaper Past Alcohol Use History: None Reported Past Drug Use History: Marijuana - Past Family History Father History Unknown: Yes Family Medical History: No Reported History Additional Family Medical History / Comment(s): Pt adopted Mother History Unknown: Yes Additional Family Medical History / Comment(s): Pt adopted General Exam - General Exam Comments Initial Comments: General: Mild respiratory distress. HEAD: Normal with no signs of head trauma. EYES: PERRLA, EOMI, conjunctiva normal, no discharge. ENT: Hearing grossly intact, normal oropharynx. RESPIRATORY: Diffuse end expiratory wheezing bilaterally. Normoxic on her baseline 2 L nasal cannula, however she is only supposed to use this at night. No significant increased work of breathing at this time. C/V: Regular rate and rhythm. S1 and S2 auscultated, no significant lower extremity pitting edema, peripheral pulses 2+ and intact throughout ABD: Abd is soft, nontender, nondistended EXT: no obvious deformity SKIN: No rashes or lesions observed on exposed skin. NEURO: Alert and oriented x 4. Limitations: no limitations Course Vital Signs 04/02/24 04/02/24 04/02/24 19:19 19:31 19:48 Temperature 98.6 F Pulse Rate 84 64 67 Respiratory 20 Rate Blood Pressure 124/64 O2 Sat by Pulse 95 Oximetry 04/02/24 20:41 Temperature Pulse Rate 61 Respiratory 17 Rate Blood Pressure 119/68 O2 Sat by Pulse 93 L Oximetry Medical Decision Making - Medical Decision Making Was pt. sent in by a medical professional or institution (, PA, ASSEMBLER BRAZER, urgent care, hospital, or correction...) When possible be specific @ -No Did you speak to anyone other than the patient for history (EMS, parent, family, police, friend...)? What history was obtained from this source @ -No Did you review nursing and triage notes (agree or disagree)? Why? @ -I reviewed and agree with nursing and triage notes Were old charts reviewed (outside hosp., previous admission, EMS record, old EKG, old radiological studies, urgent care reports/EKG's, correction records)? Report findings @ -Old charts reviewed including EKG from September 2022 with when compared with EKG from today shows no obvious acute findings. Differential Diagnosis (chest pain, altered mental status, abdominal pain women, abdominal pain men, vaginal bleeding, weakness, fever, dyspnea, syncope, headache, dizziness, GI bleed, back pain, seizure, CVA, palpatations, mental health, musculoskeletal)? @ -Differential Dyspnea: Coronary syndrome, arrhythmia, tamponade, asthma, COPD, pulmonary embolism, pneumonia, pneumothorax, pulmonary effusion, anaphylaxis, diabetic ketoacidosis, flailed chest, pulmonary contusion, diaphragmatic rupture, anemia, neuromuscular, this is not meant to be an all-inclusive list. EKG interpreted by me (3pts min.). @ -As above X-rays interpreted by me (1pt min.). @ -Chest x-ray reveals no obvious acute cardiopulmonary process. CT interpreted by me (1pt min.). @ -None done U/S interpreted by me (1pt. min.). @ -None done What testing was considered but not performed or refused? (CT, X-rays, U/S, labs)? Why? @ -None What meds were considered but not given or refused? Why? @ -None Did you discuss the management of the patient with other professionals (professionals i.e. , PA, ASSEMBLER BRAZER, lab, RT, psych nurse, director of social media marketing, stripper preliminary, teacher, parole hearing officer, caser up)? Give summary @ -Spoke with Dr. Nolen who accepted the admission. Was smoking cessation discussed for >3mins.? @ -No Was critical care preformed (if so, how long)? @ -Yes, 31 minutes. Patient frequently reevaluated. Were there social determinants of health that impacted care today? How? (Homelessness, low income, unemployed, alcoholism, drug addiction, transportation, low edu. Level, literacy, decrease access to med. care, penitentiary, rehab)? @ -No Was there de-escalation of care discussed even if they declined (Discuss DNR or withdrawal of care, Hospice)? DNR status @ -No What co-morbidities impacted this encounter? (DM, HTN, Smoking, COPD, CAD, Ca ncer, CVA, ARF, Chemo, Hep., AIDS, mental health diagnosis, sleep apnea, morbid obesity)? @ -COPD, CHF Was patient admitted / discharged? Hospital course, mention meds given and route, prescriptions, significant lab abnormalities, going to OR and other pertinent info. @ -Presents with symptoms consistent with COPD. Has a history of CHF as well. We will obtain screening EKG as well as laboratory studies, viral swabs, chest x-ray. Patient will be administered IV magnesium, IV Solu-Medrol, as well as breathing treatment. Patient was in agreement this plan. Patient is having hypoxic respiratory failure as she is requiring constant use of her nasal cannula oxygen at 2 L nasal cannula which is not typical for her as she only usually requires it at night. Chest x-ray unremarkable. Labs revealed no obvious acute finding other than slight increase in carbon dioxide at 37 likely secondary to COPD exacerbation. Patient is also hypomagnesemic to 1.5. BNP is elevated to 1000 however patient has no significant clinical symptoms of a CHF exacerbation at this time. Chest x-ray shows no obvious pulmonary vascular congestion. I do believe this is likely COPD exacerbation versus CHF because of this, as well as physical exam findings of the bilateral wheezes. On reevaluation, patient is feeling improved however still wheezing. I did offer observation admission which she accepted. Patient will be treated for her hypomagnesemia with IV magnesium that was already administered. We will continue with IV steroids and breathing treatments. Pulmonology will be consulted. She was in agreement this plan. I spoke with the admitting provider, Dr. Nolen accepted the admission. Undiagnosed new problem with uncertain prognosis? @ -No Drug Therapy requiring intensive monitoring for toxicity (Heparin, Nitro, Insulin, Cardizem)? @ -No Were any procedures done? @ -No Diagnosis/symptom? @ -COPD exacerbation, acute on chronic hypoxic respiratory failure, hypomagnesemia Acute, or Chronic, or Acute on Chronic? @ -Acute Uncomplicated (without systemic symptoms) or Complicated (systemic symptoms)? @ -Complicated Side effects of treatment? @ -No Exacerbation, Progression, or Severe Exacerbation? @ -No Poses a threat to life or bodily function? How? (Chest pain, USA, GA, pneumonia, PE, COPD, DKA, ARF, appy, cholecystitis, CVA, Diverticulitis, Homicidal, Suicidal, threat to staff... and all critical care pts) @ -Yes - Lab Data Result diagrams: 04/02/24 19:35 04/02/24 19:35 Lab Results 04/02/24 04/02/24 Range/Units 19:35 19:35 WBC 7.0 (3.8-10.6) k/uL RBC 4.52 (3.80-5.40) m/uL Hgb 12.6 (11.4-16.0) gm/dL Hct 40.9 (34.0-46.0) % MCV 90.5 (80.0-100.0) fL MCH 28.0 (25.0-35.0) pg MCHC 30.9 L (31.0-37.0) g/dL RDW 12.7 (11.5-15.5) % Plt Count 252 (150-450) k/uL MPV 7.5 Neutrophils % 54 % Lymphocytes % 32 % Monocytes % 8 % Eosinophils % 4 % Basophils % 0 % Neutrophils # 3.8 (1.3-7.7) k/uL Lymphocytes # 2.3 (1.0-4.8) k/uL Monocytes # 0.6 (0-1.0) k/uL Eosinophils # 0.3 (0-0.7) k/uL Basophils # 0.0 (0-0.2) k/uL Hypochromasia Moderate Sodium 137 (137-145) mmol/L Potassium 4.7 (3.5-5.1) mmol/L Chloride 97 L (98-107) mmol/L Carbon Dioxide 37 H (22-30) mmol/L Anion Gap 3 mmol/L BUN 13 (7-17) mg/dL Creatinine 0.52 (0.52-1.04) mg/dL Est GFR (CKD-EPI)AfAm >90 (>60 ml/min/1.73 sqM) Est GFR (CKD-EPI)NonAf >90 (>60 ml/min/1.73 sqM) Glucose 91 (74-99) mg/dL Calcium 8.4 (8.4-10.2) mg/dL Magnesium 1.5 L (1.6-2.3) mg/dL Total Bilirubin 0.5 (0.2-1.3) mg/dL AST 24 (14-36) U/L ALT 13 (4-34) U/L Alkaline Phosphatase 67 (38-126) U/L NT-Pro-B Natriuret Pep 1060 pg/mL Total Protein 6.0 L (6.3-8.2) g/dL Albumin 3.6 (3.5-5.0) g/dL - EKG Data -: EKG Interpreted by Me EKG Comments: 12-lead Electrocardiogram Interpretation Note EKG was reviewed and interpreted by myself. 12-lead ECG performed at 1922 is interpreted by me as revealing normal sinus rhythm at a rate of 64 beats per m inute. Justice is normal. WA interval is 151 ms, QRS duration is 91 ms, QTc is 431 ms.. There were no acute ST or T wave abnormalities to suggest myocardial ischemia or injury. R wave progression across the precordium was satisfactory. By my interpretation this EKG is non-diagnostic for acute ischemia. Compared with EKG from September 2022. Disposition Clinical Impression: COPD (chronic obstructive pulmonary disease), Acute on chronic hypoxic respiratory failure, Hypomagnesemia Disposition: ADMITTED IP TO THIS HOSP Condition: Stable Referrals: Kemi Guevara MD [Primary Care Provider] - 1-2 days Time of Disposition: 20:50
[2024-04-02 20:49] LABS: INR 1.1 (<1.2); Partial Thromboplastin Time 24.7 sec (22.0-30.0); Prothrombin Time 11.4 sec (10.0-12.5)
[2024-04-02] MEDS ORDERED: ONDANSETRON 4 MG/2 ML VIAL IVP PRN (20:50)
[2024-04-02] MEDS ORDERED: NALOXONE 0.4 MG/ML 1 ML VIAL IV PRN (20:50)
[2024-04-02] MEDS ORDERED: MONTELUKAST 10 MG TAB PO PRN (20:52)
[2024-04-02] MEDS: LORazepam 1 MG TAB PO STA (20:58)
[2024-04-02] MEDS: FAMOTIDINE 20 MG TAB PO SCH (21:03)
[2024-04-02] MEDS: carvediloL 12.5 MG TAB PO SCH (21:03)
[2024-04-02] MEDS: traZODone HCL 50 MG TAB PO SCH (21:04)
[2024-04-02] MEDS: oxyCODONE-APAP 10-325MG 1 EACH TAB PO SCH (21:05)
[2024-04-03] MEDS: methylPREDNISolone SOD SUCCI 40 MG/ML 1 ML VIAL IV SCH (00:57)
[2024-04-03] MEDS: IPRATROPIUM-ALBUTEROL 3 ML NEB INHALATION SCH (01:54)
--- NOTE | 2024-04-03 03:33 | P.CNPUL ---
History of Present Illness Consult date: 04/03/24 Requesting physician: Remi Issa Reason for consult: COPD Chief complaint: Shortness of breath, cough nonproductive History of present illness: Patient is a 48-year-old female with past medical history significant for COPD, chronicdependence maintained on 2 L nasal cannula HS, chronic ongoing tobacco dependence, congestive heart failure, hypertension, CVA/TIA, rheumatoid arthritis, fibromyalgia, among other things. Recently moved to the area. Her primary care provider is Dr. Guevara. She has been following with Dr. Silveira for her pulmonary needs. She has history of COPD. She continues to smoke on and off, reportedly 1 cigarette every couple days. She comes in to the emerge ncy department last night complaining of progressively worsening shortness of breath over the last 24 hours. There is an associated congested nonproductive cough. Complaining of runny nose, sore throat, sinus pressure. Negative for influenza, RSV, COVID on arrival. Admits some substernal chest pain, only with coughing and deep breathing. Has audible wheezing. Denies fevers, chills. Admits some nausea without emesis. No abdominal pain. No diarrhea. She states that her is also has been hospitalized with "breathing issues". Chest x-ray done on arrival does not show any acute cardiopulmonary process. She is currently resting on her left side. She was sleeping, in no acute respiratory distress while at rest. She is on 2 L/min nasal cannula. CBC: WBC count 7, hemoglobin 12.6, hematocrit 40.9, platelets 252. CMP: Sodium 137, potassium 4.7, chloride 97, serum bicarb 37, BUN 13, creatinine 0.52, glucose 91. LFTs unremarkable. Her COPD is active. She will be started on a combination of bronchodilators, Symbicort inhaler, and IV Solu-Medrol. Vitals are stable. Review of Systems Constitutional: Reports fatigue, Denies chills, Denies fever, Denies poor appetite, Denies weight gain, Denies weight loss Ears, nose, mouth and throat: Reports headache, Reports nasal congestion, Reports nasal discharge, Reports post-nasal drip, Reports sinus pressure, Reports sore throat, Denies sinus pain, Denies voice changes Cardiovascular: Denies leg edema, Denies orthopnea, Denies palpitations, Denies paroxysmal nocturnal dyspnea, Denies syncope Respiratory: Reports as per HPI Gastrointestinal: Reports nausea, Denies abdominal pain, Denies change in bowel habits, Denies constipation, Denies diarrhea, Denies vomiting Genitourinary: Reports dysuria, Reports urinary frequency, Denies flank pain, Denies hematuria, Denies incomplete emptying Musculoskeletal: Denies arm numbness/tingling, Denies leg numbness/tingling, Denies limitation of motion, Denies muscle weakness Integumentary: Denies rash Neurological: Denies confusion, Denies seizures, Denies syncope Psychiatric: Denies anxiety, Denies depression Allergic/Immunologic: Reports seasonal allergies Past Medical History Past Medical History: Heart Failure, COPD, CVA/TIA, Fibromyalgia, Hypertension, Pneumonia, Rheumatoid Arthritis (RA), Seizure Disorder, Syncope Additional Past Medical History / Comment(s): 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 IBS, cellulitis of the chin, CVA about 1 year ago(no residual) History of Any Multi-Drug Resistant Organisms: MRSA Date of last positivie culture/infection: 07/2016 MDRO Source:: Chin Past Surgical History: Appendectomy, Section, Cholecystectomy, Hysterectomy, Tubal Ligation Additional Past Surgical History / Comment(s): oral surgery . Pancreas biopsy May 2015. Past Anesthesia/Blood Transfusion Reactions: No Reported Reaction Smoking Status: Current every day smoker - Past Family History Father History Unknown: Yes Family Medical History: No Reported History Additional Family Medical History / Comment(s): Pt adopted Mother History Unknown: Yes Additional Family Medical History / Comment(s): Pt adopted Medications and Allergies Home Medications Medication Instructions Recorded Confirmed Type Spironolactone [Aldactone] 25 mg PO DAILY 02/05/17 04/02/24 History carvediloL [Coreg] 25 mg PO BID 03/26/21 04/02/24 History oxyCODONE-APAP 10-325MG [Percocet 1 tab PO TID 03/16/22 04/02/24 History 10-325 mg] Citalopram Hydrobromide [CeleXA] 60 mg PO DAILY 01/27/23 04/02/24 History Pantoprazole [Protonix] 40 mg PO DAILY 05/29/23 04/02/24 History Albuterol Inhaler [Ventolin Hfa 2 puff INHALATION RT-QID PRN 04/02/24 04/02/24 History Inhaler] Famotidine 20 mg PO BID 04/02/24 04/02/24 History Losartan [Cozaar] 50 mg PO DAILY 04/02/24 04/02/24 History Montelukast [Singulair] 10 mg PO HS PRN 04/02/24 04/02/24 History Rosuvastatin Calcium [Crestor] 5 mg PO DAILY 04/02/24 04/02/24 History Xanax(Unknown Dose) 1 tab PO DAILY PRN 04/02/24 04/02/24 History rOPINIRole HCL [Requip] 0.25 mg PO HS 04/02/24 04/02/24 History traZODone HCL [Desyrel] 50 mg PO HS 04/02/24 04/02/24 History Allergies Allergy/AdvReac Type Severity Reaction Status Date / Time adhesive Allergy Rash/Hives Verified 04/02/24 20:29 amoxicillin Allergy Anaphylaxis Verified 04/02/24 20:29 azithromycin [From Zithromax] Allergy Anaphylaxis Verified 04/02/24 20:29 cephalexin monohydrate Allergy Anaphylaxis Verified 04/02/24 20:29 [From Keflex] ciprofloxacin Allergy Anaphylaxis Verified 04/02/24 20:29 clindamycin Allergy Anaphylaxis Verified 04/02/24 20:29 Iodinated Contrast Media Allergy Anaphylaxis Verified 04/02/24 20:29 [Iodinated Contrast- Oral and IV Dye] ketorolac [From Toradol] Allergy Unknown Verified 04/02/24 20:29 levofloxacin [From Levaquin] Allergy Rash/Hives Verified 04/02/24 20:29 naproxen Allergy Anaphylaxis Verified 04/02/24 20:29 NSAIDS (Non-Steroidal Allergy Rash/Hives Verified 04/02/24 20:29 Anti-Inflamma orphenadrine [From Norflex] Allergy Anaphylaxis Verified 04/02/24 20:29 shellfish derived Allergy Anaphylaxis Verified 04/02/24 20:29 Sulfa (Sulfonamide Allergy Anaphylaxis Verified 04/02/24 20:29 Antibiotics) sulfamethoxazole Allergy Anaphylaxis Verified 04/02/24 20:29 [From Bactrim] tramadol Allergy Unknown Verified 04/02/24 20:29 trimethoprim [From Bactrim] Allergy Anaphylaxis Verified 04/02/24 20:29 Physical Exam Vitals: Vital Signs Temp Pulse Pulse Resp BP BP Pulse Ox 04/02/24 23:57 63 18 130/71 96 04/02/24 22:25 20 04/02/24 21:26 61 14 140/72 96 04/02/24 20:41 61 17 119/68 93 L 04/02/24 20:00 22 04/02/24 19:48 67 04/02/24 19:31 64 04/02/24 19:19 98.6 F 84 20 124/64 95 Intake and Output 04/02/24 04/02/24 04/03/24 14:59 22:59 06:59 Other: Weight 76.204 kg GENERAL EXAM: Alert, 48-year-old obese white female, comfortable in no apparent distress. HEAD: Normocephalic and atraumatic EYES: Normal reaction of pupils, equal size. NOSE: Clear with pink turbinates. THROAT: No erythema or exudates. NECK: No masses, no JVD. CHEST: No chest wall deformity. LUNGS: Equal air entry with expiratory wheezes heard throughout. No crackles, rhonchi, focal dullness. On 2 L/min nasal cannula. SpO2 95%. No conversational dyspnea or accessory muscle use.. CVS: S1 and S2 normal with no audible murmur, regular rhythm. No extra heart sounds ABDOMEN: No hepatosplenomegaly, active bowel sounds, no guarding or rigidity. SPINE: No scoliosis or deformity SKIN: No rashes CENTRAL NERVOUS SYSTEM: No focal deficits, tone is normal in all 4 extremities. EXTREMITIES: There is no peripheral edema, clubbing, or cyanosis. Peripheral pulses are intact. Results - Laboratory Findings CBC and BMP: 04/02/24 19:35 04/02/24 19:35 PT/INR, D-dimer PT 11.4 sec (10.0-12.5) 04/02/24 20:28 INR 1.1 (<1.2) 04/02/24 20:28 Abnormal lab findings: Abnormal Labs 04/02/24 04/02/24 19:35 19:35 MCHC 30.9 L Chloride 97 L Carbon Dioxide 37 H Magnesium 1.5 L Total Protein 6.0 L - Diagnostic Findings Chest x-ray: image reviewed Assessment and Plan Assessment: Acute COPD exacerbation, chest x-ray showed no acute cardiopulmonary process. Negative for influenza, RSV, COVID-19. Acute on chronic hypoxemic respiratory failure, secondary to above COPD, maintained on Symbicort and albuterol as needed and she has home 02 at 2 liters/min Chronic and ongoing tobacco dependence, down to 1-2 cigarettes every other day Hypertension History of hyperlipidemia Chronic pain and fibromyalgia History of anxiety/depression Plan: Patient's medications, labs, chest x-ray reviewed Continue supplemental oxygen, currently on 2 L/min nasal cannula. Continue combination of bronchodilators, add Symbicort inhaler, and IV Solu- Medrol No focal pneumonia on chest x-ray. Possible viral etiology. Will hold off on antibiotics at this time Negative for influenza, RSV, COVID. Smoking cessation counseling performed greater than 10 minutes Patient refused nicotine patch We will continue to follow while inpatient; patient can continue to follow with their established crack off person on hospital discharge. I have personally seen and examined the patient, performed the documentation and the assessment and plan as written. Number of minutes spent on the visit:20 Time with Patient: Greater than 30
[2024-04-03] MEDS: methylPREDNISolone SOD SUCCI 125 MG/2 ML VIAL IV SCH (05:49)
[2024-04-03 06:03] LABS: Basophils % (A) 0 %; Eosinophils % (A) 0 %; HGB 13.3 gm/dL (11.4-16.0); Hypochromasia Slight; Lymphocytes # (A) 0.6 k/uL (1.0-4.8); Lymphocytes % (A) 12 %; MCH 28.2 pg (25.0-35.0); MCHC 31.6 g/dL (31.0-37.0); MCV 89.1 fL (80.0-100.0); Monocytes # (A) 0.1 k/uL (0-1.0); Monocytes % (A) 1 %; Neutrophils # (A) 3.9 k/uL (1.3-7.7); Neutrophils % (A) 85 %; Platelet Count 265 k/uL (150-450); RBC 4.71 m/uL (3.80-5.40); RDW 12.6 % (11.5-15.5); WBC 4.6 k/uL (3.8-10.6)
[2024-04-03 06:16] LABS: ALT 14 U/L (4-34); African American GFR (CKD) >90 (>60 ml/min/1.73 sqM); Albumin 3.5 g/dL (3.5-5.0); Anion Gap 5 mmol/L; Blood Urea Nitrogen 14 mg/dL (7-17); Calcium 8.8 mg/dL (8.4-10.2); Carbon Dioxide 36 mmol/L (22-30); Chloride 96 mmol/L (98-107); Glucose 169 mg/dL (74-99); Non-African American GFR(CKD) >90 (>60 ml/min/1.73 sqM); Sodium 137 mmol/L (137-145); Total Bilirubin 0.5 mg/dL (0.2-1.3); Total Protein 5.9 g/dL (6.3-8.2)
[2024-04-03 06:22] LABS: AST 21 U/L (14-36); Alkaline Phosphatase 99 U/L (38-126); Potassium 4.5 mmol/L (3.5-5.1)
[2024-04-03] MEDS: SYMBICORT 160-4.5 MCG INHALER INHALATION SCH (08:05)
[2024-04-03] MEDS ORDERED: hydrALAZINE HCL 25 MG TAB PO PRN (08:26)
[2024-04-03] MEDS: oxyCODONE-APAP 10-325MG 1 EACH TAB PO ONE (08:33)
[2024-04-03] MEDS: ATORVASTATIN 10 MG TAB PO SCH (08:34)
[2024-04-03] MEDS: SPIRONOLACTONE 25 MG TAB PO SCH (08:34)
[2024-04-03] MEDS: CITALOPRAM HYDROBROMIDE 20 MG TAB PO SCH (08:35)
[2024-04-03] MEDS: PANTOPRAZOLE 40 MG TABLET PO SCH (08:35)
[2024-04-03] MEDS: LOSARTAN 50 MG TAB PO SCH (08:35)
--- NOTE | 2024-04-03 08:41 | P.HPIM ---
History of Present Illness H&P Date: 04/03/24 HISTORY OF PRESENT ILLNESS: 49-year-old with active medical history of advanced chronic COPD oxygen dependent, chronic congestive heart failure combination of systolic and di astolic, previous history of CVA/TIA, rheumatoid arthritis, fibromyalgia, hypertension, hyperlipidemia, chronic tobacco dependency, history of seizure activity, chronic history of abdominal pain, recurrent kidney stone, IBS, and history of MRSA who is seen apparently Dr. SKYLAR Su pulmonary at [facility]. She moved this last year to [facility] but has been seen Dr. Guevara as her new primary care physician. She presented to the emergency department very late last night on 04/02/2024 complaining of worsening shortness of breath for the last 2 days with severe tightness pressure and discomfort with cough nonproductive and extremely tight and wheezing. Despite trying updraft treatment for around at home did not work. Her workup the emergency department including respiratory culture came back negative Chest x- ray shows no acute consolidation, laboratory value shows normal CBC CMP with exception of low magnesium and slightly bit high carbon dioxide. She ended up being on Solu-Medrol 125 mg injection was giving the start patient on 60 mg every 6 hours updraft treatment and admitted to the hospital with acute respiratory failure with COPD exacerbation. After having her on 3 rounds of DuoNeb and Pulmicort with the steroid finally patient settled down still having nonproductive phlegm and no infection noted on her chest x-ray proBNP was low procalcitonin was not done which will be requested for this morning. The patient is currently not on any antibiotics. REVIEW OF SYSTEMS: CONSTITUTIONAL: Well-developed mild respiratory distress EYES: No icterus sclerae, no conjunctivitis. EARS, NOSE, MOUTH, THROAT, and FACE: No sore throat, lymphadenopathy, carotid bruits or deformity. RESPIRATORY: Positive shortness of breath cough and wheezes CARDIOVASCULAR: No CP, Palpitation, PND, Orthopnea, or angina. Mild tachycardia GASTROINTESTINAL: No Abd pain, Nausea or vomiting, no Diarrhea or constipation, No GI Bleed, no distention or masses. GENITOURINARY: Negative for Hematuria or UTI, no kidney stones. INTEGUMENT/BREAST: Negative for any muscular injury with mild osteoarthritis.. HEMATOLOGIC/LYMPHATIC: Negative for bleed or purpura. MUSCULOSKELTAL: Negative for Myalgia or arthralgia. NEURLOGICAL: No LOC, Sz or syncope, blurred vision dizziness or abnormality.. BEHAVIORAL/PSYCH: Negative. ENDOCRINE: Negative. PHYSICAL EXAMINATION: General Appearance: Alert, cooperative, still in mild distress. Neck HEENT: Supple, no lymphadenopathy, no thyroid enlargement, no carotid bruits. Lungs: Decreased breath sound bilaterally with fine rhonchi positive mild expiratory wheezes. Chest Wall: Decreased expansion with deep inspiration no tenderness and no deformity was found on exam, no costochondral pain or discomfort. Heart: Regular rate and rhythm, S1, S2 normal, no murmur, rub or gallop. Back: Symmetric, no curvature, ROM normal, no CVA tenderness. Abdomen: Soft, non-tender, bowel sounds active all four quadrants, no masses, no organomegaly. Extremities: Extremities normal, atraumatic, no cyanosis or edema. Pulses: 2+ and symmetric. Skin: Skin color, texture, tugor normal, no rashes or lesions. Neurologic: Alert oriented x3 cranial nerves II through XII intact, no motor d eficit, no abnormal balance or gait. ASSESSMENT AND PLAN: _Acute respiratory failure secondary to COPD exacerbation with probable bronchitis, continue O2 up to 4 L continue updraft treatment her respiratory cultures negative so far pulmonary consultation be done. _Advanced COPD with COPD exacerbation: Continue DuoNeb and Pulmicort still on Solu-Medrol 60 mg every 6 hours, pulmonary consultation be done will titrate O2 try to keep her pulse ox above 90 percentile. _Chronic diastolic congestive heart failure not clear what her baseline echocardiogram looks like might request an echo if was not done last 6-month continue losartan, spironolactone Coreg and furosemide. _Hypertension: Remain on Coreg 25 mg twice a day, losartan 50 mg daily and spironolactone 25 mg a day. _Hyperlipidemia: Will continue patient on atorvastatin 10 mg daily. _Chronic depression: Remain on trazodone 50 mg a day along with citalopram 60 mg daily still using alprazolam 0.25 mg up to 3 times a day as needed. _Chronic history of nicotine dependency: Will start patient on nicotine patch patient is down to 1 to 2 cigarettes a day much better than before. _Restless leg syndrome: Continue ropinirole 0.25 mg at bedtime. _Chronic pain syndrome: Secondary to degenerative disc disease has been on oxycodone 10 mg 3 times a day as needed. _Severe GERD/GI prophylaxis: Switch patient from Pepcid to pantoprazole 40 mg daily. _DVT prophylaxis: Early mobilization and knee-high SALEEM hose. CODE STATUS: Full code. Admit patient to the inpatient service for more than 2 night stay. 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 IBS, cellulitis of the chin, CVA about 1 year ago(no residual) History of Any Multi-Drug Resistant Organisms: MRSA Date of last positivie culture/infection: 07/2016 MDRO Source:: Chin Past Surgical History: Appendectomy, Section, Cholecystectomy, Hysterectomy, Tubal Ligation Additional Past Surgical History / Comment(s): oral surgery . Pancreas biopsy May 2015. Past Anesthesia/Blood Transfusion Reactions: No Reported Reaction Smoking Status: Current every day smoker - Past Family History Father History Unknown: Yes Family Medical History: No Reported History Additional Family Medical History / Comment(s): Pt adopted Mother History Unknown: Yes Additional Family Medical History / Comment(s): Pt adopted Medications and Allergies Home Medications Medication Instructions Recorded Confirmed Type Spironolactone [Aldactone] 25 mg PO DAILY 02/05/17 04/02/24 History carvediloL [Coreg] 25 mg PO BID 03/26/21 04/02/24 History oxyCODONE-APAP 10-325MG [Percocet 1 tab PO TID 03/16/22 04/02/24 History 10-325 mg] Citalopram Hydrobromide [CeleXA] 60 mg PO DAILY 01/27/23 04/02/24 History Pantoprazole [Protonix] 40 mg PO DAILY 05/29/23 04/02/24 History Albuterol Inhaler [Ventolin Hfa 2 puff INHALATION RT-QID PRN 04/02/24 04/02/24 History Inhaler] Famotidine 20 mg PO BID 04/02/24 04/02/24 History Losartan [Cozaar] 50 mg PO DAILY 04/02/24 04/02/24 History Montelukast [Singulair] 10 mg PO HS PRN 04/02/24 04/02/24 History Rosuvastatin Calcium [Crestor] 5 mg PO DAILY 04/02/24 04/02/24 History Xanax(Unknown Dose) 1 tab PO DAILY PRN 04/02/24 04/02/24 History rOPINIRole HCL [Requip] 0.25 mg PO HS 04/02/24 04/02/24 History traZODone HCL [Desyrel] 50 mg PO HS 04/02/24 04/02/24 History Allergies Allergy/AdvReac Type Severity Reaction Status Date / Time adhesive Allergy Rash/Hives Verified 04/02/24 20:29 amoxicillin Allergy Anaphylaxis Verified 04/02/24 20:29 azithromycin [From Zithromax] Allergy Anaphylaxis Verified 04/02/24 20:29 cephalexin monohydrate Allergy Anaphylaxis Verified 04/02/24 20:29 [From Keflex] ciprofloxacin Allergy Anaphylaxis Verified 04/02/24 20:29 clindamycin Allergy Anaphylaxis Verified 04/02/24 20:29 Iodinated Contrast Media Allergy Anaphylaxis Verified 04/02/24 20:29 [Iodinated Contrast- Oral and IV Dye] ketorolac [From Toradol] Allergy Unknown Verified 04/02/24 20:29 levofloxacin [From Levaquin] Allergy Rash/Hives Verified 04/02/24 20:29 naproxen Allergy Anaphylaxis Verified 04/02/24 20:29 NSAIDS (Non-Steroidal Allergy Rash/Hives Verified 04/02/24 20:29 Anti-Inflamma orphenadrine [From Norflex] Allergy Anaphylaxis Verified 04/02/24 20:29 shellfish derived Allergy Anaphylaxis Verified 04/02/24 20:29 Sulfa (Sulfonamide Allergy Anaphylaxis Verified 04/02/24 20:29 Antibiotics) sulfamethoxazole Allergy Anaphylaxis Verified 04/02/24 20:29 [From Bactrim] tramadol Allergy Unknown Verified 04/02/24 20:29 trimethoprim [From Bactrim] Allergy Anaphylaxis Verified 04/02/24 20:29 Physical Exam Vitals: Vital Signs Temp Pulse Pulse Resp BP BP Pulse Ox 04/03/24 05:30 70 04/03/24 05:19 71 04/03/24 04:00 73 18 139/62 96 04/03/24 02:34 20 04/03/24 02:05 63 04/03/24 01:54 70 04/02/24 23:57 63 18 130/71 96 04/02/24 22:25 20 04/02/24 21:26 61 14 140/72 96 04/02/24 20:41 61 17 119/68 93 L 04/02/24 20:00 22 04/02/24 19:48 67 04/02/24 19:31 64 04/02/24 19:19 98.6 F 84 20 124/64 95 Intake and Output 04/02/24 04/02/24 04/03/24 14:59 22:59 06:59 Other: # Voids 1 Weight 76.204 kg Results CBC & Chem 7: 04/03/24 05:42 04/03/24 05:42 Labs: Abnormal Lab Results - Last 24 Hours (Table) 04/02/24 04/02/24 04/03/24 Range/Units 19:35 19:35 05:42 MCHC 30.9 L (31.0-37.0) g/dL Lymphocytes # 0.6 L (1.0-4.8) k/uL Chloride 97 L (98-107) mmol/L Carbon Dioxide 37 H (22-30) mmol/L Creatinine (0.52-1.04) mg/dL Glucose (74-99) mg/dL Magnesium 1.5 L (1.6-2.3) mg/dL Total Protein 6.0 L (6.3-8.2) g/dL 04/03/24 Range/Units 05:42 MCHC (31.0-37.0) g/dL Lymphocytes # (1.0-4.8) k/uL Chloride 96 L (98-107) mmol/L Carbon Dioxide 36 H (22-30) mmol/L Creatinine 0.48 L (0.52-1.04) mg/dL Glucose 169 H (74-99) mg/dL Magnesium (1.6-2.3) mg/dL Total Protein 5.9 L (6.3-8.2) g/dL Thrombosis Risk Factor Assmnt - Choose All That Apply Any of the Below Risk Factors Present?: Yes Each Factor Represents 1 point: Age 41-60 years, Obesity (BMI >25) Other Risk Factors: No Other congenital or acquired thrombophilia - If yes, enter type in comment: No Thrombosis Risk Factor Assessment Total Risk Factor Score: 2 Thrombosis Risk Factor Assessment Level: Low Risk
[2024-04-04 08:08] LABS: Basophils % (A) 0 %; Eosinophils # (A) 0.1 k/uL (0-0.7); Eosinophils % (A) 0 %; HCT 40.8 % (34.0-46.0); HGB 12.6 gm/dL (11.4-16.0); Hypochromasia Moderate; Lymphocytes # (A) 0.6 k/uL (1.0-4.8); Lymphocytes % (A) 5 %; MCHC 30.9 g/dL (31.0-37.0); MCV 90.7 fL (80.0-100.0); Mean Platelet Volume 7.1; Monocytes # (A) 0.3 k/uL (0-1.0); Monocytes % (A) 3 %; Neutrophils # (A) 9.4 k/uL (1.3-7.7); Neutrophils % (A) 91 %; Platelet Count 281 k/uL (150-450); RBC 4.49 m/uL (3.80-5.40); RDW 12.7 % (11.5-15.5); WBC 10.4 k/uL (3.8-10.6)
[2024-04-04 08:32] LABS: ALT 11 U/L (4-34); AST 14 U/L (14-36); African American GFR (CKD) >90 (>60 ml/min/1.73 sqM); Albumin 3.6 g/dL (3.5-5.0); Albumin/Globulin Ratio 1.6; Alkaline Phosphatase 88 U/L (38-126); Anion Gap 8 mmol/L; Blood Urea Nitrogen 19 mg/dL (7-17); Calcium 8.8 mg/dL (8.4-10.2); Carbon Dioxide 34 mmol/L (22-30); Chloride 94 mmol/L (98-107); Globulin 2.3 g/dL; Glucose 187 mg/dL (74-99); Magnesium 1.6 mg/dL (1.6-2.3); Non-African American GFR(CKD) >90 (>60 ml/min/1.73 sqM); Potassium 4.4 mmol/L (3.5-5.1); Sodium 136 mmol/L (137-145); Total Bilirubin 0.3 mg/dL (0.2-1.3); Total Protein 5.9 g/dL (6.3-8.2)
[2024-04-04] MEDS: NICOTINE 14MG/24HR PATCH TRANSDERM SCH (09:32)
--- NOTE | 2024-04-04 10:51 | P.PN ---
Subjective Progress Note Date: 04/04/24 Patient is a 48-year-old female with past medical history significant for COPD, chronicdependence maintained on 2 L nasal cannula HS, chronic ongoing tobacco dependence, congestive heart failure, hypertension, CVA/TIA, rheumatoid arthritis, fibromyalgia, among other things. Recently moved to the area. Her primary care provider is Dr. Guevara. She has been following with Dr. Silveira for her pulmonary needs. She has history of COPD. She continues to smoke on and off, reportedly 1 cigarette every couple days. She comes in to the emergency department last night complaining of progressively worsening shortness of breath over the last 24 hours. There is an associated congested nonproductive cough. Complaining of runny nose, sore throat, sinus pressure. Negative for influenza, RSV, COVID on arrival. Admits some substernal chest pain, only with coughing and deep breathing. Has audible wheezing. Denies fevers, chills. Admits some nausea without emesis. No abdominal pain. No diarrhea. She states that her is also has been hospitalized with "breathing issues". Chest x-ray done on arrival does not show any acute cardiopulmonary process. She is currently resting on her left side. She was sleeping, in no acute respiratory distress while at rest. She is on 2 L/min nasal cannula. CBC: WBC count 7, hemoglobin 12.6, hematocrit 40.9, platelets 252. CMP: Sodium 137, potassium 4.7, chloride 97, serum bicarb 37, BUN 13, creatinine 0.52, glucose 91. LFTs unremarkable. Her COPD is active. She will be started on a combination of bronchodilators, Symbicort inhaler, and IV Solu- Medrol. Vitals are stable. The patient is seen today April 04, 2024 in follow-up on the regular medical floor. She is currently sitting up in bed. Awake and alert in no acute distress. Breathing a bit easier today compared to yesterday. She is maintaining good O2 saturations in the 90s on 2 L/min per nasal cannula. No IV fluids. She does have home oxygen. She does have a heavy smoking history. White count 10.4. Hemoglobin 12.6. Hemoglobin platelets 281. Sodium 136. Potassium 4.4. Bicarb 34. BUN 19. Creatinine 0.55. Glucose 187. She is maintained on DuoNeb inhalations, Symbicort, Solu-Medrol, Singulair. NicoDerm patch in place. Objective - Vital Signs Vital signs: Vital Signs Temp 97.7 F 04/04/24 07:10 Pulse 72 04/04/24 09:25 Resp 18 04/04/24 07:10 BP 163/86 04/04/24 07:10 Pulse Ox 97 04/04/24 09:06 FiO2 Intake & Output 04/03/24 04/04/24 04/04/24 18:59 06:59 18:59 Intake Total 784 450 Balance 784 450 Intake: Oral 784 450 Other: # Voids 0 1 # Bowel Movements 0 - Exam GENERAL EXAM: Alert, pleasant 49-year-old female, on 3 L nasal cannula, fairly comfortable in no apparent distress. HEAD: Normocephalic. EYES: Normal reaction of pupils, equal size. NOSE: Clear with pink turbinates. THROAT: No erythema or exudates. NECK: No masses, no JVD. CHEST: No chest wall deformity. LUNGS: Equal air entry with bilateral wheeze, few scattered rhonchi, diminished. CVS: S1 and S2 normal with no audible murmur, regular rhythm. ABDOMEN: No hepatosplenomegaly, normal bowel sounds, no guarding or rigidity. SPINE: No scoliosis or deformity SKIN: No rashes CENTRAL NERVOUS SYSTEM: No focal deficits, tone is normal in all 4 extremities. EXTREMITIES: There is no peripheral edema. No clubbing, no cyanosis. Peripheral pulses are intact. - Labs CBC & Chem 7: 04/04/24 07:27 04/04/24 07:27 Labs: Abnormal Lab Results - Last 24 Hours (Table) 04/04/24 04/04/24 Range/Units 07:27 07:27 MCHC 30.9 L (31.0-37.0) g/dL Neutrophils # 9.4 H (1.3-7.7) k/uL Lymphocytes # 0.6 L (1.0-4.8) k/uL Sodium 136 L (137-145) mmol/L Chloride 94 L (98-107) mmol/L Carbon Dioxide 34 H (22-30) mmol/L BUN 19 H (7-17) mg/dL Glucose 187 H (74-99) mg/dL Total Protein 5.9 L (6.3-8.2) g/dL Assessment and Plan Assessment: Acute COPD exacerbation, chest x-ray showed no acute cardiopulmonary process. Negative for influenza, RSV, COVID-19. Acute on chronic hypoxemic respiratory failure, secondary to above COPD, maintained on Symbicort and albuterol as needed and she has home 02 at 2 liters/min Chronic and ongoing tobacco dependence, down to 1-2 cigarettes every other day Hypertension History of hyperlipidemia Chronic pain and fibromyalgia History of anxiety/depression Plan: The patient was seen and evaluated Labs and medications reviewed Stable and on 3 L nasal cannula Continue the current treatment plan Educated regarding the importance of complete smoking cessation This patient was seen independently by the pulmonary nurse practitioner addressing pulmonary issues I have personally seen and examined the patient, performed the documentation and the assessment and plan as written. Number of minutes spent on the visit: 24.
[2024-04-04] MEDS: ALPRAZolam 0.25 MG TAB PO PRN (13:47)
--- NOTE | 2024-04-04 23:03 | P.PN ---
Subjective Progress Note Date: 04/04/24 HISTORY OF PRESENT ILLNESS: 49-year-old with active medical history of advanced chronic COPD oxygen dependent, chronic congestive heart failure combination of systolic and diastoli c, previous history of CVA/TIA, rheumatoid arthritis, fibromyalgia, hypertension, hyperlipidemia, chronic tobacco dependency, history of seizure activity, chronic history of abdominal pain, recurrent kidney stone, IBS, and history of MRSA who is seen apparently Dr. SKYLAR han at [facility]. She moved this last year to [facility] but has been seen Dr. Guevara as her new primary care physician. She presented to the emergency department very late last night on 04/02/2024 complaining of worsening shortness of breath for the last 2 days with severe tightness pressure and discomfort with cough nonproductive and extremely tight and wheezing. Despite trying updraft treatment for around at home did not work. Her workup the emergency department including respiratory culture came back negative Chest x-ray shows no acute consolidation, laboratory value shows normal CBC CMP with exception of low magnesium and slightly bit high carbon dioxide. She ended up being on Solu- Medrol 125 mg injection was giving the start patient on 60 mg every 6 hours updraft treatment and admitted to the hospital with acute respiratory failure with COPD exacerbation. After having her on 3 rounds of DuoNeb and Pulmicort with the steroid finally patient settled down still having nonproductive phlegm and no infection noted on her chest x-ray proBNP was low procalcitonin was not done which will be requested for this morning. The patient is currently not on any antibiotics. 04/04/2024: She is feeling slightly bit better decrease cough and wheezes pulse ox has improved so far vitals are more stabilized and 3 L she is running at 98 percentile. Repeat lab value shows mildly elevated blood sugar magnesium was not done but potassium kidney function is much better. She was seen by pulmonary agree with the current plan will continue on aggressive steroid use for now the patient need BiPAP for the night otherwise she is doing well will continue titrating medication probably required to be in the hospital for at least 24 more hours. Procalcitonin was very low she did not require any antibiotic at this point so this is a pure COPD exacerbation without any bronchitis or pneumonia. REVIEW OF SYSTEMS: CONSTITUTIONAL: Well-developed mild respiratory distress EYES: No icterus sclerae, no conjunctivitis. EARS, NOSE, MOUTH, THROAT, and FACE: No sore throat, lymphadenopathy, carotid bruits or deformity. RESPIRATORY: Positive shortness of breath cough and wheezes CARDIOVASCULAR: No CP, Palpitation, PND, Orthopnea, or angina. Mild tachycardia GASTROINTESTINAL: No Abd pain, Nausea or vomiting, no Diarrhea or constipation, No GI Bleed, no distention or masses. GENITOURINARY: Negative for Hematuria or UTI, no kidney stones. INTEGUMENT/BREAST: Negative for any muscular injury with mild osteoarthritis.. HEMATOLOGIC/LYMPHATIC: Negative for bleed or purpura. MUSCULOSKELTAL: Negative for Myalgia or arthralgia. NEURLOGICAL: No LOC, Sz or syncope, blurred vision dizziness or abnormality.. BEHAVIORAL/PSYCH: Negative. ENDOCRINE: Negative. PHYSICAL EXAMINATION: General Appearance: Alert, cooperative, still in mild distress. Neck HEENT: Supple, no lymphadenopathy, no thyroid enlargement, no carotid bruits. Lungs: Decreased breath sound bilaterally with fine rhonchi positive mild expiratory wheezes. Chest Wall: Decreased expansion with deep inspiration no tenderness and no def ormity was found on exam, no costochondral pain or discomfort. Heart: Regular rate and rhythm, S1, S2 normal, no murmur, rub or gallop. Back: Symmetric, no curvature, ROM normal, no CVA tenderness. Abdomen: Soft, non-tender, bowel sounds active all four quadrants, no masses, no organomegaly. Extremities: Extremities normal, atraumatic, no cyanosis or edema. Pulses: 2+ and symmetric. Skin: Skin color, texture, tugor normal, no rashes or lesions. Neurologic: Alert oriented x3 cranial nerves II through XII intact, no motor deficit, no abnormal balance or gait. ASSESSMENT AND PLAN: _Acute respiratory failure secondary to COPD exacerbation without pneumonia or bronchitis procalcitonin is negative patient still on 3 L of O2 try to keep pulse ox around 97 percentile. _Advanced COPD with COPD exacerbation: Continue DuoNeb and Pulmicort still on Solu-Medrol 60 mg every 6 hours, pulmonary consultation be done will titrate O2 try to keep her pulse ox above 90 percentile. Should use better regime of smoking cessation will add at least nicotine patch 14 mg daily. _Chronic diastolic congestive heart failure not clear what her baseline echocardiogram looks like might request an echo if was not done last 6-month continue losartan, spironolactone Coreg and furosemide. Echocardiogram was done as an outpatient. _Smoking and nicotine dependency: Continue to use nicotine patch 14 mg daily. _Hypertension: Remain on Coreg 25 mg twice a day, losartan 50 mg daily and spironolactone 25 mg a day. _Hyperlipidemia: Will continue patient on atorvastatin 10 mg daily. _Chronic depression: Remain on trazodone 50 mg a day along with citalopram 60 mg daily still using alprazolam 0.25 mg up to 3 times a day as needed. _Restless leg syndrome: Continue ropinirole 0.25 mg at bedtime. _Chronic pain syndrome: Secondary to degenerative disc disease has been on oxycodone 10 mg 3 times a day as needed. _Severe GERD/GI prophylaxis: Switch patient from Pepcid to pantoprazole 40 mg daily. Discharge planning: Titrate medication patient be in the hospital probably till tomorrow morning if changing her steroid by tomorrow morning to oral and she is less tight less wheezy should be able to let her go home. Objective - Vital Signs Vital signs: Vital Signs Temp 98.1 F 04/04/24 02:46 Pulse 68 04/04/24 04:39 Resp 18 04/04/24 02:46 BP 139/60 04/04/24 02:46 Pulse Ox 97 04/04/24 02:46 FiO2 Intake & Output 04/03/24 04/03/24 04/04/24 06:59 18:59 06:59 Intake Total 784 Balance 784 Weight 76.204 kg Intake: Oral 784 Other: # Voids 1 0 1 # Bowel Movements 0 - Labs CBC & Chem 7: 04/04/24 07:27 04/04/24 07:27 Labs: Abnormal Lab Results - Last 24 Hours (Table) 04/03/24 04/03/24 Range/Units 05:42 05:42 Lymphocytes # 0.6 L (1.0-4.8) k/uL Chloride 96 L (98-107) mmol/L Carbon Dioxide 36 H (22-30) mmol/L Creatinine 0.48 L (0.52-1.04) mg/dL Glucose 169 H (74-99) mg/dL Total Protein 5.9 L (6.3-8.2) g/dL
[2024-04-05] MEDS: HYDROcodone/APAP 7.5-325MG 1 EACH TAB PO ONE (05:01)
[2024-04-05 07:43] VITALS: RESP 18
--- NOTE | 2024-04-05 10:49 | P.PN ---
Subjective Progress Note Date: 04/05/24 Principal diagnosis: COPD exacerbation. Patient is a 48-year-old female with past medical history significant for COPD, chronicdependence maintained on 2 L nasal cannula HS, chronic ongoing tobacco dependence, congestive heart failure, hypertension, CVA/TIA, rheumatoid arthriti s, fibromyalgia, among other things. Recently moved to the area. Her primary care provider is Dr. Guevara. She has been following with Dr. Silveira for her pulmonary needs. She has history of COPD. She continues to smoke on and off, reportedly 1 cigarette every couple days. She comes in to the emergency department last night complaining of progressively worsening shortness of breath over the last 24 hours. There is an associated congested nonproductive cough. Complaining of runny nose, sore throat, sinus pressure. Negative for influenza, RSV, COVID on arrival. Admits some substernal chest pain, only with coughing and deep breathing. Has audible wheezing. Denies fevers, chills. Admits some nausea without emesis. No abdominal pain. No diarrhea. She states that her is also has been hospitalized with "breathing issues". Chest x-ray done on arrival does not show any acute cardiopulmonary process. She is currently resting on her left side. She was sleeping, in no acute respiratory distress while at rest. She is on 2 L/min nasal cannula. CBC: WBC count 7, hemoglobin 12.6, hematocrit 40.9, platelets 252. CMP: Sodium 137, potassium 4.7, chloride 97, serum bicarb 37, BUN 13, creatinine 0.52, glucose 91. LFTs unremarkable. Her COPD is active. She will be started on a combination of bronchodilators, Symbicort inhaler, and IV Solu-Medrol. Vitals are stable. The patient is seen today April 04, 2024 in follow-up on the regular medical floor. She is currently sitting up in bed. Awake and alert in no acute distress. Breathing a bit easier today compared to yesterday. She is maintaining good O2 saturations in the 90s on 2 L/min per nasal cannula. No IV fluids. She does have home oxygen. She does have a heavy smoking history. White count 10.4. Hemoglobin 12.6. Hemoglobin platelets 281. Sodium 136. Potassium 4.4. Bicarb 34. BUN 19. Creatinine 0.55. Glucose 187. She is maintained on DuoNeb inhalations, Symbicort, Solu-Medrol, Singulair. NicoDerm patch in place. Progress note dated April 05, 2024. 49-year-old female with a history of COPD, and COPD exacerbation. She is feeling better. She is seen today in room 615. She is on 2 L of oxygen by nasal cannula. No IV fluids. No new laboratory data today. Laboratory data from April 04 has been reviewed. The patient is feeling better. She is less short of breath. Objective - Vital Signs Vital signs: Vital Signs Temp 97.9 F 04/05/24 07:00 Pulse 66 04/05/24 09:08 Resp 18 04/05/24 07:00 BP 156/83 04/05/24 07:00 Pulse Ox 94 L 04/05/24 08:58 FiO2 Intake & Output 04/04/24 04/05/24 04/05/24 18:59 06:59 18:59 Intake Total 894 0 Balance 894 0 Intake: Oral 894 0 Other: # Voids 12 1 # Bowel Movements 2 - Exam No acute distress, oriented 3. No respiratory distress. Currently on 3 L. HEENT examination is grossly unremarkable. Mucous membranes are moist. No oral lesions. Neck supple. Full range of motion. No adenopathy thyromegaly or neck vein distention. Cardiovascular examination reveals regular rhythm rate. S1-S2 normal. No S3 or S4. No discernible murmur noted. Lungs reveal minimal scattered rhonchi and wheezes. Breath sounds are equal. No crackles. Saturations are excellent. Abdomen soft bowel sounds are heard. No masses or tenderness. Extremities are intact. No cyanosis clubbing or edema. Skin is without rash or lesion. Neurologic examination is brief but nonfocal. - Labs CBC & Chem 7: 04/04/24 07:27 04/04/24 07:27 Labs: Abnormal Lab Results - Last 24 Hours (Table) 04/04/24 Range/Units 22:09 Creatine Kinase 25 L (30-135) U/L Assessment and Plan Assessment: Acute COPD exacerbation. Acute on chronic hypoxemic respiratory failure, secondary to above. COPD, maintained on Symbicort and albuterol. Chronic and ongoing tobacco dependence. Hypertension. History of hyperlipidemia. Chronic pain and fibromyalgia. History of anxiety/depression. Plan: Plan dated April 05, 2024. The patient is doing much better. She is on 2 L of oxygen. The patient could be considered for possible discharge. She should follow-up with her own systems lead, Dr. Su, after discharge. Additional recommendations and suggestions are forthcoming. Labs, x-rays, and medications are reviewed. We will continue to follow. Prognosis is guarded. She is counseled about the importance of smoking cessation. Time with Patient: Less than 30
[2024-04-05] MEDS: predniSONE 20 MG TAB PO SCH (13:25)
[2024-04-05] MEDS: LIDOCAINE 4% PATCH TOPICAL SCH (13:25)
[2024-04-05] MEDS: oxyCODONE-APAP 10-325MG 1 EACH TAB PO SCH (13:26)
--- NOTE | 2024-04-06 07:46 | P.PN ---
Subjective Progress Note Date: 04/05/24 HISTORY OF PRESENT ILLNESS: 49-year-old with active medical history of advanced chronic COPD oxygen dependent, chronic congestive heart failure combination of systolic and diastoli c, previous history of CVA/TIA, rheumatoid arthritis, fibromyalgia, hypertension, hyperlipidemia, chronic tobacco dependency, history of seizure activity, chronic history of abdominal pain, recurrent kidney stone, IBS, and history of MRSA who is seen apparently Dr. SKYLAR han at [facility]. She moved this last year to [facility] but has been seen Dr. Guevara as her new primary care physician. She presented to the emergency department very late last night on 04/02/2024 complaining of worsening shortness of breath for the last 2 days with severe tightness pressure and discomfort with cough nonproductive and extremely tight and wheezing. Despite trying updraft treatment for around at home did not work. Her workup the emergency department including respiratory culture came back negative Chest x-ray shows no acute consolidation, laboratory value shows normal CBC CMP with exception of low magnesium and slightly bit high carbon dioxide. She ended up being on Solu- Medrol 125 mg injection was giving the start patient on 60 mg every 6 hours updraft treatment and admitted to the hospital with acute respiratory failure with COPD exacerbation. After having her on 3 rounds of DuoNeb and Pulmicort with the steroid finally patient settled down still having nonproductive phlegm and no infection noted on her chest x-ray proBNP was low procalcitonin was not done which will be requested for this morning. The patient is currently not on any antibiotics. 04/04/2024: She is feeling slightly bit better decrease cough and wheezes pulse ox has improved so far vitals are more stabilized and 3 L she is running at 98 percentile. Repeat lab value shows mildly elevated blood sugar magnesium was not done but potassium kidney function is much better. She was seen by pulmonary agree with the current plan will continue on aggressive steroid use for now the patient need BiPAP for the night otherwise she is doing well will continue titrating medication probably required to be in the hospital for at least 24 more hours. Procalcitonin was very low she did not require any antibiotic at this point so this is a pure COPD exacerbation without any bronchitis or pneumonia. 04/05/2024: She is doing much better so far continue current management still having quite a bit tightness required updraft treatment almost [id number], continue to complain of slight right-sided chest pain with deep inspiration mostly as a pleurisy type and costochondritis but has improved some compared to her baseline. Patient apparently able to ambulate with slight bit help request more physical therapy will do 1 more day of IV steroids switch patient to oral prednisone 40 mg daily and prepare hopefully for home tomorrow. REVIEW OF SYSTEMS: CONSTITUTIONAL: Well-developed mild respiratory distress EYES: No icterus sclerae, no conjunctivitis. EARS, NOSE, MOUTH, THROAT, and FACE: No sore throat, lymphadenopathy, carotid bruits or deformity. RESPIRATORY: Positive shortness of breath cough and wheezes CARDIOVASCULAR: No CP, Palpitation, PND, Orthopnea, or angina. Mild tachycardia GASTROINTESTINAL: No Abd pain, Nausea or vomiting, no Diarrhea or constipation, No GI Bleed, no distention or masses. GENITOURINARY: Negative for Hematuria or UTI, no kidney stones. INTEGUMENT/BREAST: Negative for any muscular injury with mild osteoarthritis.. HEMATOLOGIC/LYMPHATIC: Negative for bleed or purpura. MUSCULOSKELTAL: Negative for Myalgia or arthralgia. NEURLOGICAL: No LOC, Sz or syncope, blurred vision dizziness or abnormality.. BEHAVIORAL/PSYCH: Negative. ENDOCRINE: Negative. PHYSICAL EXAMINATION: General Appearance: Alert, cooperative, still in mild distress. Neck HEENT: Supple, no lymphadenopathy, no thyroid enlargement, no carotid bruits. Lungs: Decreased breath sound bilaterally with fine rhonchi positive mild expiratory wheezes. Chest Wall: Decreased expansion with deep inspiration no tenderness and no deformity was found on exam, no costochondral pain or discomfort. Heart: Regular rate and rhythm, S1, S2 normal, no murmur, rub or gallop. Back: Symmetric, no curvature, ROM normal, no CVA tenderness. Abdomen: Soft, non-tender, bowel sounds active all four quadrants, no masses, no organomegaly. Extremities: Extremities normal, atraumatic, no cyanosis or edema. Pulses: 2+ and symmetric. Skin: Skin color, texture, tugor normal, no rashes or lesions. Neurologic: Alert oriented x3 cranial nerves II through XII intact, no motor deficit, no abnormal balance or gait. ASSESSMENT AND PLAN: _Acute respiratory failure secondary to COPD exacerbation without pneumonia or bronchitis procalcitonin she is still little bit tight lung [place] Solu-Medrol be switched to prednisone continue updraft treatment [id number] and continue smoking cessation with aggressive management. _Advanced COPD with COPD exacerbation: Continue DuoNeb and Pulmicort switch Solu-Medrol to prednisone 40 mg daily., pulmonary consultation be done will titrate O2 try to keep her pulse ox above 90 percentile. Should use better regime of smoking cessation will add at least nicotine patch 14 mg daily. _Chronic diastolic congestive heart failure not clear what her baseline echocardiogram looks like might request an echo if was not done last 6-month continue losartan, spironolactone Coreg and furosemide. Echocardiogram was done as an outpatient. _Smoking and nicotine dependency: Continue to use nicotine patch 14 mg daily. _Hypertension: Remain on Coreg 25 mg twice a day, losartan 50 mg daily and spironolactone 25 mg a day. Blood pressure is well-controlled currently we will titrate losartan up to 100 mg a day. _Hyperlipidemia: Will continue patient on atorvastatin 10 mg daily. _Chronic depression: Remain on trazodone 50 mg a day along with citalopram 60 mg daily still using alprazolam 0.25 mg up to 3 times a day as needed. _Restless leg syndrome: Continue ropinirole 0.25 mg at bedtime. _Chronic pain syndrome: Secondary to degenerative disc disease has been on oxycodone 10 mg 3 times a day as needed. _Severe GERD/GI prophylaxis: Switch patient from Pepcid to pantoprazole 40 mg daily. Discharge planning: Switch Solu-Medrol to oral prednisone, adjust losartan to 100 mg a day, talk with the psychotherapist social worker about arrangement hopefully for home tomorrow. Objective - Vital Signs Vital signs: Vital Signs Temp 97.9 F 04/05/24 07:00 Pulse 56 L 04/05/24 07:00 Resp 18 04/05/24 07:00 BP 156/83 04/05/24 07:00 Pulse Ox 94 L 04/05/24 07:00 FiO2 Intake & Output 04/04/24 04/05/24 04/05/24 18:59 06:59 18:59 Intake Total 894 Balance 894 Intake: Oral 894 Other: # Voids 12 1 # Bowel Movements 2 - Labs CBC & Chem 7: 04/04/24 07:27 04/04/24 07:27 Labs: Abnormal Lab Results - Last 24 Hours (Table) 04/04/24 04/04/24 Range/Units 07:27 22:09 Sodium 136 L (137-145) mmol/L Chloride 94 L (98-107) mmol/L Carbon Dioxide 34 H (22-30) mmol/L BUN 19 H (7-17) mg/dL Glucose 187 H (74-99) mg/dL Creatine Kinase 25 L (30-135) U/L Total Protein 5.9 L (6.3-8.2) g/dL
[2024-04-06 08:17] VITALS: BP 168/84; TEMP 98.2
[2024-04-06] MEDS: LOSARTAN 50 MG TAB PO SCH (08:25)
[2024-04-06 09:09] VITALS: PULSE 74
--- NOTE | 2024-04-06 11:33 | PN ---
PROGRESS NOTE SUBJECTIVE: This is a 49-year-old female with a history of significant COPD. She was admitted with a COPD exacerbation. She actually sees the other track laborer in town. Today she is seen in room 615. Currently, she is on 3 L of oxygen. Her saturations are in the mid 90s. The patient is stable, and could be considered for possible discharge. She will need to follow up with her primary doctor, and her own track laborer. She is feeling better, with less complaints. PHYSICAL EXAMINATION: VITAL SIGNS: Current vital signs include a temperature 98.2, heart rate 74, respiratory rate 18, blood pressure 168/84, and a saturation of between 92% and 98% on 3 L. She appears in no acute distress. There is no audible wheezing. No use of accessory muscles. No conversational dyspnea. HEENT: Grossly unremarkable. NECK: Supple, full range of motion. No adenopathy. Neck veins are flat. CARDIOVASCULAR: Reveals regular rhythm and rate. S1, S2 normal. No heart murmur. LUNGS: Reveal scattered rhonchi and wheezes. Breath sounds are improved, though. No crackles. Breath sounds are equal. ABDOMEN: Obese. Bowel sounds are heard. EXTREMITIES: Intact. No cyanosis, clubbing, or edema. SKIN: Without rash. NEUROLOGIC: Brief, but nonfocal. LABORATORY DATA: No new laboratory data today. ASSESSMENT: 1. Acute chronic obstructive pulmonary disease exacerbation. 2. Acute on chronic hypoxemic respiratory failure. 3. Chronic obstructive pulmonary disease, typically maintained on Symbicort and albuterol. 4. Chronic and ongoing tobacco dependence. 5. Hypertension. 6. History of hyperlipidemia. 7. Chronic pain and fibromyalgia. 8. History of anxiety/depression. PLAN: The patient is stable and improved. She continues on oxygen therapy. The patient could be discharged with a prednisone burst and taper. She will need to follow up with her own track laborer and own primary care physician. No additional recommendations were made. We will continue to follow should she not be discharged. MMODL / IJN: [id number] /
== END 2024-04-06 10:10 | disposition home health service (06) | DRG 190 ==
LOC: EC 19:17 → 6NMEDSUR 20:52 → OBSVTOIN 20:53 → 6NMEDSUR 22:47
PROVIDERS: ADMIT Internal Medicine Geriatric Medicine; ATTEND Internal Medicine Geriatric Medicine
PROC: 3E0F7SF Introduction of Other Gas into Respiratory Tract, Via Natural or Artificial Opening (ICD-10-PCS; principal; 2024-04-02)
DX: J44.1 Chronic obstructive pulmonary disease with (acute) exacerbation (principal); J96.21 Acute and chronic respiratory failure with hypoxia; I50.42 Chronic combined systolic (congestive) and diastolic (congestive) heart failure; E83.42 Hypomagnesemia; F17.210 Nicotine dependence, cigarettes, uncomplicated; E31.9 Polyglandular dysfunction, unspecified; G25.81 Restless legs syndrome; G89.4 Chronic pain syndrome; I11.0 Hypertensive heart disease with heart failure; M06.9 Rheumatoid arthritis, unspecified; M79.7 Fibromyalgia; Z99.81 Dependence on supplemental oxygen; Z88.2 Allergy status to sulfonamides; Z88.5 Allergy status to narcotic agent; Z88.1 Allergy status to other antibiotic agents; Z88.8 Allergy status to other drugs, medicaments and biological substances; Z91.013 Allergy to seafood; Z88.6 Allergy status to analgesic agent; Z91.048 Other nonmedicinal substance allergy status
CPT/HCPCS: 36415; 71046; 80053; 82550; 83735; 83880; 84145; 84484; 85025; 85610; 85730; 87636; 93005; 94640; 94760; 96365; 96375; 96376; 99291

== ENCOUNTER 2024-04-14 21:16 | Emergency (ER) | payer MEDICARE ==
--- NOTE | 2024-04-14 21:40 | ED ---
Abdominal Pain HPI - General Chief Complaint: Abdominal Pain Stated Complaint: Abdominal Pain, Difficulty Breathing Time Seen by Provider: 04/14/24 21:31 Source: patient, EMS, RN notes reviewed Mode of arrival: EMS Limitations: no limitations - History of Present Illness Initial Comments: This is a 49-year-old female with a past medical history of chronic pancreatitis and COPD requiring 2 L of oxygen intermittently presents emergency department chief complaint of shortness of breath and abdominal pain. Patient states that the abdominal pain is in her epigastric and left upper quadrant with radiation to her back and states that this feels like when she has had pancreatitis in the past. Additionally patient states that she has been having a worsening productive cough for the past few days. Patient was recently mated to the hospital and discharged on oral steroids, denies current antibiotic use. She is denying chest pain or heart palpitations. - Related Data Home Medications Medication Instructions Recorded Confirmed Spironolactone [Aldactone] 25 mg PO DAILY 02/05/17 04/02/24 carvediloL [Coreg] 25 mg PO BID 03/26/21 04/02/24 oxyCODONE-APAP 10-325MG [Percocet 1 tab PO TID 03/16/22 04/02/24 10-325 mg] Citalopram Hydrobromide [CeleXA] 60 mg PO DAILY 01/27/23 04/02/24 Pantoprazole [Protonix] 40 mg PO DAILY 05/29/23 04/02/24 Albuterol Inhaler [Ventolin Hfa 2 puff INHALATION RT-QID PRN 04/02/24 04/02/24 Inhaler] Famotidine 20 mg PO BID 04/02/24 04/02/24 Montelukast [Singulair] 10 mg PO HS PRN 04/02/24 04/02/24 Rosuvastatin Calcium [Crestor] 5 mg PO DAILY 04/02/24 04/02/24 Xanax(Unknown Dose) 1 tab PO DAILY PRN 04/02/24 04/02/24 rOPINIRole HCL [Requip] 0.25 mg PO HS 04/02/24 04/02/24 traZODone HCL [Desyrel] 50 mg PO HS 04/02/24 04/02/24 Previous Rx's Medication Instructions Recorded Budesonide-Formot 160-4.5 Mcg 2 puff INHALATION RT-BID #1 each 04/06/24 [Symbicort 160-4.5 Mcg Inhaler] Ipratropium-Albuterol Nebulize 3 ml INHALATION RT-Q4H #120 each 04/06/24 [Duoneb 0.5 mg-3 mg/3 ml Soln] Lidocaine 4% Patch 1 patch TOPICAL DAILY #14 patch 04/06/24 Losartan [Cozaar] 100 mg PO DAILY #30 tab 04/06/24 Nicotine 14Mg/24Hr Patch [Habitrol] 1 patch TRANSDERM DAILY #30 patch 04/06/24 predniSONE 10 mg PO DAILY #30 tab 04/06/24 Cephalexin [Keflex] 500 mg PO Q6HR #40 cap 04/15/24 Allergies Allergy/AdvReac Type Severity Reaction Status Date / Time adhesive Allergy Rash/Hives Verified 04/02/24 20:29 amoxicillin Allergy Anaphylaxis Verified 04/02/24 20:29 azithromycin [From Zithromax] Allergy Anaphylaxis Verified 04/02/24 20:29 cephalexin monohydrate Allergy Anaphylaxis Verified 04/02/24 20:29 [From Keflex] ciprofloxacin Allergy Anaphylaxis Verified 04/02/24 20:29 clindamycin Allergy Anaphylaxis Verified 04/02/24 20:29 Iodinated Contrast Media Allergy Anaphylaxis Verified 04/02/24 20:29 [Iodinated Contrast- Oral and IV Dye] ketorolac [From Toradol] Allergy Unknown Verified 04/02/24 20:29 levofloxacin [From Levaquin] Allergy Rash/Hives Verified 04/02/24 20:29 naproxen Allergy Anaphylaxis Verified 04/02/24 20:29 NSAIDS (Non-Steroidal Allergy Rash/Hives Verified 04/02/24 20:29 Anti-Inflamma orphenadrine [From Norflex] Allergy Anaphylaxis Verified 04/02/24 20:29 shellfish derived Allergy Anaphylaxis Verified 04/02/24 20:29 Sulfa (Sulfonamide Allergy Anaphylaxis Verified 04/02/24 20:29 Antibiotics) sulfamethoxazole Allergy Anaphylaxis Verified 04/02/24 20:29 [From Bactrim] tramadol Allergy Unknown Verified 04/02/24 20:29 trimethoprim [From Bactrim] Allergy Anaphylaxis Verified 04/02/24 20:29 Review of Systems ROS Statement: Those systems with pertinent positive or pertinent negative responses have been documented in the HPI. ROS Other: All systems not noted in ROS Statement are negative. 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 IBS, cellulitis of the chin, CVA about 1 year ago(no residual) History of Any Multi-Drug Resistant Organisms: MRSA Date of last positivie culture/infection: 07/2016 MDRO Source:: Chin Past Surgical History: Appendectomy, Section, Cholecystectomy, Hysterectomy, Tubal Ligation Additional Past Surgical History / Comment(s): oral surgery . Pancreas biopsy May 2015. Past Anesthesia/Blood Transfusion Reactions: No Reported Reaction Past Psychological History: ADD/ADHD, Anxiety, Bipolar, Depression Smoking Status: Current every day smoker - Past Family History Father History Unknown: Yes Family Medical History: No Reported History Additional Family Medical History / Comment(s): Pt adopted Mother History Unknown: Yes Additional Family Medical History / Comment(s): Pt adopted General Exam Limitations: no limitations General appearance: alert, in no apparent distress ENT exam: Present: normal exam, mucous membranes moist Neck exam: Present: normal inspection. Absent: tenderness, meningismus, lymphadenopathy Respiratory exam: Present: normal lung sounds bilaterally. Absent: respiratory distress, wheezes, rales, rhonchi, stridor Cardiovascular Exam: Present: regular rate, normal rhythm, normal heart sounds. Absent: systolic murmur, diastolic murmur, rubs, gallop, clicks GI/Abdominal exam: Present: soft, tenderness (epigastric), normal bowel sounds. Absent: distended, guarding, rebound, rigid Extremities exam: Present: normal inspection, full ROM, normal capillary refill. Absent: tenderness, pedal edema, joint swelling, calf tenderness Back exam: Present: normal inspection Psychiatric exam: Present: normal affect, normal mood Skin exam: Present: warm, dry, intact, normal color. Absent: rash Course Vital Signs 04/14/24 04/14/24 04/14/24 21:18 22:07 23:31 Temperature 98.2 F Pulse Rate 78 72 67 Respiratory 19 19 19 Rate Blood Pressure 114/70 121/76 109/61 O2 Sat by Pulse 92 L 93 L 95 Oximetry 04/15/24 02:29 Temperature 98.3 F Pulse Rate 68 Respiratory 17 Rate Blood Pressure 110/68 O2 Sat by Pulse 98 Oximetry Medical Decision Making - Medical Decision Making Was pt. sent in by a medical professional or institution ([facility], HOTSHOT SUPERINTENDENT, urgent care, hospital, or group home...) When possible be specific @ -No Did you speak to anyone other than the patient for history (EMS, parent, family, police, friend...)? What history was obtained from this source @ -No Did you review nursing and triage notes (agree or disagree)? Why? @ -I reviewed and agree with nursing and triage notes Were old charts reviewed (outside hosp., previous admission, EMS record, old EKG, old radiological studies, urgent care reports/EKG's, group home records)? Report findings @ -No old charts were reviewed Differential Diagnosis (chest pain, altered mental status, abdominal pain women, abdominal pain men, vaginal bleeding, weakness, fever, dyspnea, syncope, headache, dizziness, GI bleed, back pain, seizure, CVA, palpatations, mental health, musculoskeletal)? @ -Differential Abdominal Pain Women: Appendicitis, Cholecystitis, diverticulosis, ischemic bowel, pancreatitis, hepatitis, UTI, gastroenteritis, AAA, incarcerated hernia, bowel obstruction, constipation, inflammatory bowel, hepatitis, peptic ulcer disease, splenic infarction, perforated viscus, vulvitis, ovarian torsion, PID, kidney stone, placenta abruption, this is not meant to be an all-inclusive list EKG interpreted by me (3pts min.). @ -none X-rays interpreted by me (1pt min.). @ -chest X-rays negative for acute cardiopulmonary process. CT interpreted by me (1pt min.). @ -None done U/S interpreted by me (1pt. min.). @ -Ultrasound of the abdomen negative for acute process. What testing was considered but not performed or refused? (CT, X-rays, U/S, labs)? Why? @ -None What meds were considered but not given or refused? Why? @ -None Did you discuss the management of the patient with other professionals (professionals i.e. [facility], HOTSHOT SUPERINTENDENT, lab, RT, psych nurse, child welfare social worker, department operations manager, teacher, fare enforcement officer, ed case manager)? Give summary @ -No Was smoking cessation discussed for >3mins.? @ -No Was critical care preformed (if so, how long)? @ -No Were there social determinants of health that impacted care today? How? (Homelessness, low income, unemployed, alcoholism, drug addiction, transporta tion, low edu. Level, literacy, decrease access to med. care, detention, rehab)? @ -No Was there de-escalation of care discussed even if they declined (Discuss DNR or withdrawal of care, Hospice)? DNR status @ -No What co-morbidities impacted this encounter? (DM, HTN, Smoking, COPD, CAD, Cancer, CVA, ARF, Chemo, Hep., AIDS, mental health diagnosis, sleep apnea, morbid obesity)? @ -None Was patient admitted / discharged? Hospital course, mention meds given and route, prescriptions, significant lab abnormalities, going to OR and other pertinent info. @ -Discharge. 49-year-old female with abdominal pain and productive cough. Patient's vitals are stable upon arrival. She is wearing 2 L nasal cannula however patient does wear this oxygen level at home therefore she is not requiring increasing oxygen demand. Patient does have abdominal pain to palpation of the epigastric region and will be symptomatically treated pending laboratory results and chest x-ray and abdominal US. CBC reveals mild leukocytosis of 12.5, neutrophils at 10.1, CMP grossly unremarkable, amylase lipase within normal limits, urinalysis negative for infection, negative for COVID, flu, RSV. Chest x-ray negative for acute process. Due to patient having history of COPD and currently on steroids and worsening productive cough she will also be sent prescription for antibiotics for probable COPD exacerbation. All questions answered at bedside to Dr. Braun as the patient she is revised understanding. Case discussed with Dr. Stinson Undiagnosed new problem with uncertain prognosis? @ -No Drug Therapy requiring intensive monitoring for toxicity (Heparin, Nitro, Insulin, Cardizem)? @ -No Were any procedures done? @ -No Diagnosis/symptom? @ -Chronic pancreatitis, productive cough, COPD Acute, or Chronic, or Acute on Chronic? @ -acute Uncomplicated (without systemic symptoms) or Complicated (systemic symptoms)? @ -Uncomplicated Side effects of treatment? @ -No Exacerbation, Progression, or Severe Exacerbation? @ -No Poses a threat to life or bodily function? How? (Chest pain, [place], [place], pneumonia, PE, COPD, DKA, ARF, appy, cholecystitis, CVA, Diverticulitis, Homicidal, Suicidal, threat to staff... and all critical care pts) @ -No - Lab Data Result diagrams: 04/14/24 22:07 04/14/24 22:07 Lab Results 04/14/24 04/14/24 04/14/24 Range/Units 22:07 22:07 22:07 WBC 12.5 H (3.8-10.6) k/uL RBC 4.65 (3.80-5.40) m/uL Hgb 12.9 (11.4-16.0) gm/dL Hct 42.2 (34.0-46.0) % MCV 90.6 (80.0-100.0) fL MCH 27.7 (25.0-35.0) pg MCHC 30.5 L (31.0-37.0) g/dL RDW 12.9 (11.5-15.5) % Plt Count 324 (150-450) k/uL MPV 6.4 Neutrophils % 81 % Lymphocytes % 14 % Monocytes % 3 % Eosinophils % 1 % Basophils % 0 % Neutrophils # 10.1 H (1.3-7.7) k/uL Lymphocytes # 1.8 (1.0-4.8) k/uL Monocytes # 0.4 (0-1.0) k/uL Eosinophils # 0.1 (0-0.7) k/uL Basophils # 0.0 (0-0.2) k/uL Hypochromasia Marked Sodium 139 (137-145) mmol/L Potassium 4.8 (3.5-5.1) mmol/L Chloride 101 (98-107) mmol/L Carbon Dioxide 37 H (22-30) mmol/L Anion Gap 1 mmol/L BUN 24 H (7-17) mg/dL Creatinine 0.81 (0.52-1.04) mg/dL Est GFR (CKD-EPI)AfAm >90 (>60 ml/min/1.73 sqM) Est GFR (CKD-EPI)NonAf 86 (>60 ml/min/1.73 sqM) Glucose 99 (74-99) mg/dL Plasma Lactic Acid Srinivas 1.0 (0.7-2.0) mmol/L Calcium 8.9 (8.4-10.2) mg/dL Magnesium 1.7 (1.6-2.3) mg/dL Total Bilirubin 0.2 (0.2-1.3) mg/dL AST 21 (14-36) U/L ALT 23 (4-34) U/L Alkaline Phosphatase 83 (38-126) U/L NT-Pro-B Natriuret Pep 158 pg/mL Total Protein 6.0 L (6.3-8.2) g/dL Albumin 3.8 (3.5-5.0) g/dL Amylase 54 (30-110) U/L Lipase 62 (23-300) U/L Urine Color Urine Appearance (Clear) Urine pH (5.0-8.0) Ur Specific [place] (1.001-1.035) Urine Protein (Negative) Urine Glucose (UA) (Negative) Urine Ketones (Negative) Urine Blood (Negative) Urine Nitrite (Negative) Urine Bilirubin (Negative) Urine Urobilinogen (<2.0) mg/dL Ur Leukocyte Esterase (Negative) Influenza Type A (PCR) (Not Detectd) Influenza Type B (PCR) (Not Detectd) RSV (PCR) (Not Detectd) SARS-CoV-2 (PCR) (Not Detectd) 04/14/24 04/14/24 Range/Units 22:29 22:29 WBC (3.8-10.6) k/uL RBC (3.80-5.40) m/uL Hgb (11.4-16.0) gm/dL Hct (34.0-46.0) % MCV (80.0-100.0) fL MCH (25.0-35.0) pg MCHC (31.0-37.0) g/dL RDW (11.5-15.5) % Plt Count (150-450) k/uL MPV Neutrophils % % Lymphocytes % % Monocytes % % Eosinophils % % Basophils % % Neutrophils # (1.3-7.7) k/uL Lymphocytes # (1.0-4.8) k/uL Monocytes # (0-1.0) k/uL Eosinophils # (0-0.7) k/uL Basophils # (0-0.2) k/uL Hypochromasia Sodium (137-145) mmol/L Potassium (3.5-5.1) mmol/L Chloride (98-107) mmol/L Carbon Dioxide (22-30) mmol/L Anion Gap mmol/L BUN (7-17) mg/dL Creatinine (0.52-1.04) mg/dL Est GFR (CKD-EPI)AfAm (>60 ml/min/1.73 sqM) Est GFR (CKD-EPI)NonAf (>60 ml/min/1.73 sqM) Glucose (74-99) mg/dL Plasma Lactic Acid Srinivas (0.7-2.0) mmol/L Calcium (8.4-10.2) mg/dL Magnesium (1.6-2.3) mg/dL Total Bilirubin (0.2-1.3) mg/dL AST (14-36) U/L ALT (4-34) U/L Alkaline Phosphatase (38-126) U/L NT-Pro-B Natriuret Pep pg/mL Total Protein (6.3-8.2) g/dL Albumin (3.5-5.0) g/dL Amylase (30-110) U/L Lipase (23-300) U/L Urine Color Yellow Urine Appearance Clear (Clear) Urine pH 5.0 (5.0-8.0) Ur Specific [place] 1.029 (1.001-1.035) Urine Protein Trace H (Negative) Urine Glucose (UA) Negative (Negative) Urine Ketones Trace H (Negative) Urine Blood Negative (Negative) Urine Nitrite Negative (Negative) Urine Bilirubin Negative (Negative) Urine Urobilinogen 2.0 (<2.0) mg/dL Ur Leukocyte Esterase Negative (Negative) Influenza Type A (PCR) Not Detected (Not Detectd) Influenza Type B (PCR) Not Detected (Not Detectd) RSV (PCR) Not Detected (Not Detectd) SARS-CoV-2 (PCR) Not Detected (Not Detectd) Disposition Clinical Impression: Cough productive of yellow sputum, COPD (chronic obstructive pulmonary disease), Chronic pancreatitis Disposition: HOME SELF-CARE Condition: Good Additional Instructions: Return to emergency department any new or worsening symptoms Prescriptions: Cephalexin [Keflex] 500 mg PO Q6HR #40 cap Is patient prescribed a controlled substance at d/c from ED?: No Referrals: Kemi Guevara MD [Primary Care Provider] - 1-2 days Time of Disposition: 02:17
[2024-04-14] MEDS: SODIUM CHLORIDE 0.9% 1,000 ML IV STA (22:01)
[2024-04-14] MEDS: HYDROmorphone 1 MG/ML 1 ML SYRINGE IVP STA ×2 (22:04→23:17)
[2024-04-14 22:18] LABS: Basophils % (A) 0 %; Eosinophils # (A) 0.1 k/uL (0-0.7); Eosinophils % (A) 1 %; HCT 42.2 % (34.0-46.0); HGB 12.9 gm/dL (11.4-16.0); Hypochromasia Marked; Lymphocytes # (A) 1.8 k/uL (1.0-4.8); Lymphocytes % (A) 14 %; MCH 27.7 pg (25.0-35.0); MCHC 30.5 g/dL (31.0-37.0); MCV 90.6 fL (80.0-100.0); Mean Platelet Volume 6.4; Monocytes # (A) 0.4 k/uL (0-1.0); Monocytes % (A) 3 %; Neutrophils # (A) 10.1 k/uL (1.3-7.7); Neutrophils % (A) 81 %; Platelet Count 324 k/uL (150-450); RBC 4.65 m/uL (3.80-5.40); RDW 12.9 % (11.5-15.5); WBC 12.5 k/uL (3.8-10.6)
[2024-04-14 22:34] LABS: ALT 23 U/L (4-34); AST 21 U/L (14-36); African American GFR (CKD) >90 (>60 ml/min/1.73 sqM); Albumin 3.8 g/dL (3.5-5.0); Alkaline Phosphatase 83 U/L (38-126); Amylase 54 U/L (30-110); Anion Gap 1 mmol/L; Blood Urea Nitrogen 24 mg/dL (7-17); Calcium 8.9 mg/dL (8.4-10.2); Carbon Dioxide 37 mmol/L (22-30); Chloride 101 mmol/L (98-107); Glucose 99 mg/dL (74-99); Lipase 62 U/L (23-300); Magnesium 1.7 mg/dL (1.6-2.3); Non-African American GFR(CKD) 86 (>60 ml/min/1.73 sqM); Potassium 4.8 mmol/L (3.5-5.1); Sodium 139 mmol/L (137-145); Total Bilirubin 0.2 mg/dL (0.2-1.3)
[2024-04-14 22:42] LABS: NT-Pro-B-Type Natriuretic Pept 158 pg/mL
[2024-04-14 22:50] LABS: Appearance,Urine Clear (Clear); Bilirubin,Urine Negative (Negative); Blood,Urine Negative (Negative); Color,Urine Yellow; Glucose,Urine (UA) Negative (Negative); Ketones,Urine Trace (Negative); Leukocyte Esterase,Urine Negative (Negative); Nitrite,Urine Negative (Negative); Protein,Urine Trace (Negative); Specific Gravity,Urine 1.029 (1.001-1.035)
--- NOTE | 2024-04-15 01:36 | XR ---
EXAM: XR Chest, 2 Views CLINICAL HISTORY: ITS.REASON XR Reason: productive cough, SOB, hx COPD TECHNIQUE: Frontal and lateral views of the chest. COMPARISON: No relevant prior studies available. FINDINGS: Lungs: No consolidation or mass. Pleural space: No effusion. Heart: No cardiomegaly. Bones/joints: No acute findings. IMPRESSION: No acute cardiopulmonary process.
--- NOTE | 2024-04-15 02:11 | US ---
EXAM: US Abdomen Complete CLINICAL HISTORY: ITS.REASON US Reason: LUQ ab pain, hx of pancreatitis TECHNIQUE: Real-time ultrasound of the abdomen with image documentation. COMPARISON: 02/16/2024. FINDINGS: Liver: The liver measures 19.8 cm. The common bile duct measures 0.5 cm. Spleen measures 8.4 cm. The right kidney measures 9.1 x 4.2 x 4.6 cm. Left kidney measures 9.2 x 5.1 x 4.4 cm. Heterogeneity of the hepatic parenchyma possibly in the base of fatty infiltration. Gallbladder: Patient is status post cholecystectomy. Negative ultrasound graphic Dixon's sign. Common bile duct: See above. Pancreas: Obscuration of the tail region of the pancreas due to bowel gas. The head and body of the pancreas are unremarkable. Kidneys: No renal calculus or hydronephrosis. Spleen: See above. Aorta: Limited evaluation of the abdominal aorta. The visualized abdominal aorta is unremarkable. Inferior vena cava: The inferior vena cava is unremarkable. IMPRESSION: 1. Limited evaluation due to bowel gas. 2. Heterogeneity of the pancreas possibly manifestation of fatty liver. 3. Status post cholecystectomy. 4. Common bile duct is normal in caliber. 5. Negative ultrasound graphic Dixon's sign. 6. No hydronephrosis.
[2024-04-15] MEDS: HYDROmorphone 0.5 MG/0.5 ML SYRINGE IVP STA (02:25)
[2024-04-15 02:42] VITALS: BP 110/68; PULSE 68; RESP 17; TEMP 98.3
== END 2024-04-15 02:32 | disposition home or self-care (01) ==
LOC: EC 21:16
CPT/HCPCS: 36415; 71046; 76700; 80053; 81003; 82150; 83605; 83690; 83735; 83880; 84145; 85025; 87636; 93005; 96361; 96374; 96376; 99285

== ENCOUNTER 2024-04-15 22:15 | Emergency (ER) | payer MEDICARE ==
[2024-04-15 22:31] VITALS: TEMP 98.8
--- NOTE | 2024-04-15 22:37 | ED ---
Abdominal Pain HPI - General Chief Complaint: Abdominal Pain Stated Complaint: Abdominal Pain Time Seen by Provider: 04/15/24 22:31 Source: patient, EMS, RN notes reviewed Mode of arrival: EMS - History of Present Illness Initial Comments: This is a 49-year-old female presents emergency department via EMS for chief complaint of reevaluation of abdominal pain. Patient was evaluated the emergency department yesterday evening for the same complaint. Patient states that abdominal pain has persisted over the day and also stated that she has burning with urination. She endorses chills with no fevers. Endorses nausea with no episodes of emesis. Patient has Percocet that she takes at home that has been giving her minimal relief. - Related Data Home Medications Medication Instructions Recorded Confirmed Spironolactone [Aldactone] 25 mg PO DAILY 02/05/17 04/02/24 carvediloL [Coreg] 25 mg PO BID 03/26/21 04/02/24 oxyCODONE-APAP 10-325MG [Percocet 1 tab PO TID 03/16/22 04/02/24 10-325 mg] Citalopram Hydrobromide [CeleXA] 60 mg PO DAILY 01/27/23 04/02/24 Pantoprazole [Protonix] 40 mg PO DAILY 05/29/23 04/02/24 Albuterol Inhaler [Ventolin Hfa 2 puff INHALATION RT-QID PRN 04/02/24 04/02/24 Inhaler] Famotidine 20 mg PO BID 04/02/24 04/02/24 Montelukast [Singulair] 10 mg PO HS PRN 04/02/24 04/02/24 Rosuvastatin Calcium [Crestor] 5 mg PO DAILY 04/02/24 04/02/24 Xanax(Unknown Dose) 1 tab PO DAILY PRN 04/02/24 04/02/24 rOPINIRole HCL [Requip] 0.25 mg PO HS 04/02/24 04/02/24 traZODone HCL [Desyrel] 50 mg PO HS 04/02/24 04/02/24 Previous Rx's Medication Instructions Recorded Budesonide-Formot 160-4.5 Mcg 2 puff INHALATION RT-BID #1 each 04/06/24 [Symbicort 160-4.5 Mcg Inhaler] Ipratropium-Albuterol Nebulize 3 ml INHALATION RT-Q4H #120 each 04/06/24 [Duoneb 0.5 mg-3 mg/3 ml Soln] Lidocaine 4% Patch 1 patch TOPICAL DAILY #14 patch 04/06/24 Losartan [Cozaar] 100 mg PO DAILY #30 tab 04/06/24 Nicotine 14Mg/24Hr Patch [Habitrol] 1 patch TRANSDERM DAILY #30 patch 04/06/24 predniSONE 10 mg PO DAILY #30 tab 04/06/24 Cephalexin [Keflex] 500 mg PO Q6HR #40 cap 04/15/24 Allergies Allergy/AdvReac Type Severity Reaction Status Date / Time adhesive Allergy Rash/Hives Verified 04/15/24 22:30 amoxicillin Allergy Anaphylaxis Verified 04/15/24 22:30 azithromycin [From Zithromax] Allergy Anaphylaxis Verified 04/15/24 22:30 cephalexin monohydrate Allergy Anaphylaxis Verified 04/15/24 22:30 [From Keflex] ciprofloxacin Allergy Anaphylaxis Verified 04/15/24 22:30 clindamycin Allergy Anaphylaxis Verified 04/15/24 22:30 Iodinated Contrast Media Allergy Anaphylaxis Verified 04/15/24 22:30 [Iodinated Contrast- Oral and IV Dye] ketorolac [From Toradol] Allergy Unknown Verified 04/15/24 22:30 levofloxacin [From Levaquin] Allergy Rash/Hives Verified 04/15/24 22:30 naproxen Allergy Anaphylaxis Verified 04/15/24 22:30 NSAIDS (Non-Steroidal Allergy Rash/Hives Verified 04/15/24 22:30 Anti-Inflamma orphenadrine [From Norflex] Allergy Anaphylaxis Verified 04/15/24 22:30 shellfish derived Allergy Anaphylaxis Verified 04/15/24 22:30 Sulfa (Sulfonamide Allergy Anaphylaxis Verified 04/15/24 22:30 Antibiotics) sulfamethoxazole Allergy Anaphylaxis Verified 04/15/24 22:30 [From Bactrim] tramadol Allergy Unknown Verified 04/15/24 22:30 trimethoprim [From Bactrim] Allergy Anaphylaxis Verified 04/15/24 22:30 Review of Systems ROS Statement: Those systems with pertinent positive or pertinent negative responses have been documented in the HPI. ROS Other: All systems not noted in ROS Statement are negative. 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 IBS, cellulitis of the chin, CVA about 1 year ago(no residual) History of Any Multi-Drug Resistant Organisms: MRSA Date of last positivie culture/infection: 07/2016 MDRO Source:: Chin Past Surgical History: Appendectomy, Section, Cholecystectomy, Hysterectomy, Tubal Ligation Additional Past Surgical History / Comment(s): oral surgery . Pancreas biopsy May 2015. Past Anesthesia/Blood Transfusion Reactions: No Reported Reaction Past Psychological History: ADD/ADHD, Anxiety, Bipolar, Depression Smoking Status: Current every day smoker - Past Family History Father History Unknown: Yes Family Medical History: No Reported History Additional Family Medical History / Comment(s): Pt adopted Mother History Unknown: Yes Additional Family Medical History / Comment(s): Pt adopted General Exam General appearance: alert, in no apparent distress Head exam: Present: atraumatic, normocephalic, normal inspection ENT exam: Present: normal exam, mucous membranes moist Neck exam: Present: normal inspection. Absent: tenderness, meningismus, lymphadenopathy Respiratory exam: Present: decreased breath sounds. Absent: respiratory distress, wheezes, rales, rhonchi, stridor Cardiovascular Exam: Present: regular rate, normal rhythm, normal heart sounds. Absent: systolic murmur, diastolic murmur, rubs, gallop, clicks GI/Abdominal exam: Present: soft, tenderness (left side of abdomen), normal bowel sounds. Absent: distended, guarding, rebound, rigid Extremities exam: Present: normal inspection, full ROM, normal capillary refill. Absent: tenderness, pedal edema, joint swelling, calf tenderness Back exam: Present: normal inspection Skin exam: Present: warm, dry, intact, normal color. Absent: rash Course Vital Signs 04/15/24 22:25 Temperature 98.8 F Pulse Rate 89 Respiratory 20 Rate Blood Pressure 146/78 O2 Sat by Pulse 96 Oximetry Medical Decision Making - Medical Decision Making Was pt. sent in by a medical professional or institution (, PA, INSTRUCTION ASSISTANT PRINCIPAL, urgent care, hospital, or half-way...) When possible be specific @ -No Did you speak to anyone other than the patient for history (EMS, parent, family, police, friend...)? What history was obtained from this source @ -No Did you review nursing and triage notes (agree or disagree)? Why? @ -I reviewed and agree with nursing and triage notes Were old charts reviewed (outside hosp., previous admission, EMS record, old EKG, old radiological studies, urgent care reports/EKG's, half-way records)? Report findings @ -Reviewed patient's emergency department visit note from 04/15/2024 where she was discharged home in stable condition after laboratory evaluations and chest x-ray and abdominal ultrasound. Differential Diagnosis (chest pain, altered mental status, abdominal pain women, abdominal pain men, vaginal bleeding, weakness, fever, dyspnea, syncope, headache, dizziness, GI bleed, back pain, seizure, CVA, palpatations, mental health, musculoskeletal)? @ -Differential Abdominal Pain Women: Appendicitis, Cholecystitis, diverticulosis, ischemic bowel, pancreatitis, hepatitis, UTI, gastroenteritis, AAA, incarcerated hernia, bowel obstruction, constipation, inflammatory bowel, hepatitis, peptic ulcer disease, splenic infarction, perforated viscus, vulvitis, ovarian torsion, PID, kidney stone, placenta abruption, this is not meant to be an all-inclusive list EKG interpreted by me (3pts min.). @ -None X-rays interpreted by me (1pt min.). @ -None done CT interpreted by me (1pt min.). @ -CT of the abdomen pelvis without contrast reveals fatty liver with status post: appendectomy, cholecystectomy, and hysterectomy, with no bowel obstruction, renal calculus or hydronephrosis, diverticulosis without diverticulitis U/S interpreted by me (1pt. min.). @ -None done What testing was considered but not performed or refused? (CT, X-rays, U/S, labs)? Why? @ -None What meds were considered but not given or refused? Why? @ -None Did you discuss the management of the patient with other professionals (pro fessionals i.e. , PA, INSTRUCTION ASSISTANT PRINCIPAL, lab, RT, psych nurse, director of social work, gear milling machine set up operator, teacher, sheriff officer, telehealth case manager)? Give summary @ -No Was smoking cessation discussed for >3mins.? @ -No Was critical care preformed (if so, how long)? @ -No Were there social determinants of health that impacted care today? How? (Homelessness, low income, unemployed, alcoholism, drug addiction, transportation, low edu. Level, literacy, decrease access to med. care, alf, rehab)? @ -No Was there de-escalation of care discussed even if they declined (Discuss DNR or withdrawal of care, Hospice)? DNR status @ -No What co-morbidities impacted this encounter? (DM, HTN, Smoking, COPD, CAD, Cancer, CVA, ARF, Chemo, Hep., AIDS, mental health diagnosis, sleep apnea, morbid obesity)? @ -None Was patient admitted / discharged? Hospital course, mention meds given and route, prescriptions, significant lab abnormalities, going to OR and other pertinent info. @ -Discharge. 49-year-old female with abdominal pain. Patient's vitals are stable upon arrival. Examination reveals tenderness to the left sided abdomen. She is symptomatically treated with antiemetics and pain control pending laboratory results and CT imaging. She is agree with this plan. Laboratory studies including CBC, CMP, urinalysis, pancreatic enzymes are grossly within normal limits. CT negative for acute process. Abdominal workup is inconclusive and patient's symptoms are classified as unspecified abdominal pain. Patient states that she does have a history of irritable bowel syndrome and this may be playing into some effect for her symptoms. Recommend that she follow-up with her primary care provider with possible referral to athletic training internship for further evaluation. All questions answered at bedside and strict return parameters kenzie the patient she is verbalized understanding. Case discussed with Dr. Wagner Undiagnosed new problem with uncertain prognosis? @ -No Drug Therapy requiring intensive monitoring for toxicity (Heparin, Nitro, Insulin, Cardizem)? @ -No Were any procedures done? @ -No Diagnosis/symptom? @ -Specified abdominal pain Acute, or Chronic, or Acute on Chronic? @ -Acute Uncomplicated (without systemic symptoms) or Complicated (systemic symptoms)? @ -Uncomplicated Side effects of treatment? @ -No Exacerbation, Progression, or Severe Exacerbation? @ -No Poses a threat to life or bodily function? How? (Chest pain, [place], [place], pneumonia, PE, COPD, DKA, ARF, appy, cholecystitis, CVA, Diverticulitis, Homicidal, Suicidal, threat to staff... and all critical care pts) @ -No - Lab Data Result diagrams: 04/15/24 23:21 04/15/24 23:21 Lab Results 04/15/24 04/15/24 04/15/24 Range/Units 23:21 23:21 23:21 WBC 9.8 (3.8-10.6) k/uL RBC 4.47 (3.80-5.40) m/uL Hgb 12.5 (11.4-16.0) gm/dL Hct 40.8 (34.0-46.0) % MCV 91.2 (80.0-100.0) fL MCH 27.9 (25.0-35.0) pg MCHC 30.5 L (31.0-37.0) g/dL RDW 13.1 (11.5-15.5) % Plt Count 224 (150-450) k/uL MPV 7.2 Neutrophils % 82 % Lymphocytes % 14 % Monocytes % 3 % Eosinophils % 1 % Basophils % 0 % Neutrophils # 8.0 H (1.3-7.7) k/uL Lymphocytes # 1.3 (1.0-4.8) k/uL Monocytes # 0.3 (0-1.0) k/uL Eosinophils # 0.1 (0-0.7) k/uL Basophils # 0.0 (0-0.2) k/uL Hypochromasia Marked Sodium 139 (137-145) mmol/L Potassium 5.0 (3.5-5.1) mmol/L Chloride 105 (98-107) mmol/L Carbon Dioxide 34 H (22-30) mmol/L Anion Gap 0 mmol/L BUN 19 H (7-17) mg/dL Creatinine 0.54 (0.52-1.04) mg/dL Est GFR (CKD-EPI)AfAm >90 (>60 ml/min/1.73 sqM) Est GFR (CKD-EPI)NonAf >90 (>60 ml/min/1.73 sqM) Glucose 99 (74-99) mg/dL Plasma Lactic Acid Srinivas (0.7-2.0) mmol/L Calcium 8.3 L (8.4-10.2) mg/dL Total Bilirubin 0.4 (0.2-1.3) mg/dL AST 26 (14-36) U/L ALT 25 (4-34) U/L Alkaline Phosphatase 71 (38-126) U/L Total Protein 5.8 L (6.3-8.2) g/dL Albumin 3.5 (3.5-5.0) g/dL Amylase 50 (30-110) U/L Lipase 80 (23-300) U/L Urine Color Light Yellow Urine Appearance Clear (Clear) Urine pH 5.5 (5.0-8.0) Ur Specific [place] 1.024 (1.001-1.035) Urine Protein Negative (Negative) Urine Glucose (UA) Negative (Negative) Urine Ketones Negative (Negative) Urine Blood Negative (Negative) Urine Nitrite Negative (Negative) Urine Bilirubin Negative (Negative) Urine Urobilinogen <2.0 (<2.0) mg/dL Ur Leukocyte Esterase Negative (Negative) 04/15/24 Range/Units 23:21 WBC (3.8-10.6) k/uL RBC (3.80-5.40) m/uL Hgb (11.4-16.0) gm/dL Hct (34.0-46.0) % MCV (80.0-100.0) fL MCH (25.0-35.0) pg MCHC (31.0-37.0) g/dL RDW (11.5-15.5) % Plt Count (150-450) k/uL MPV Neutrophils % % Lymphocytes % % Monocytes % % Eosinophils % % Basophils % % Neutrophils # (1.3-7.7) k/uL Lymphocytes # (1.0-4.8) k/uL Monocytes # (0-1.0) k/uL Eosinophils # (0-0.7) k/uL Basophils # (0-0.2) k/uL Hypochromasia Sodium (137-145) mmol/L Potassium (3.5-5.1) mmol/L Chloride (98-107) mmol/L Carbon Dioxide (22-30) mmol/L Anion Gap mmol/L BUN (7-17) mg/dL Creatinine (0.52-1.04) mg/dL Est GFR (CKD-EPI)AfAm (>60 ml/min/1.73 sqM) Est GFR (CKD-EPI)NonAf (>60 ml/min/1.73 sqM) Glucose (74-99) mg/dL Plasma Lactic Acid Srinivas 1.2 (0.7-2.0) mmol/L Calcium (8.4-10.2) mg/dL Total Bilirubin (0.2-1.3) mg/dL AST (14-36) U/L ALT (4-34) U/L Alkaline Phosphatase (38-126) U/L Total Protein (6.3-8.2) g/dL Albumin (3.5-5.0) g/dL Amylase (30-110) U/L Lipase (23-300) U/L Urine Color Urine Appearance (Clear) Urine pH (5.0-8.0) Ur Specific [place] (1.001-1.035) Urine Protein (Negative) Urine Glucose (UA) (Negative) Urine Ketones (Negative) Urine Blood (Negative) Urine Nitrite (Negative) Urine Bilirubin (Negative) Urine Urobilinogen (<2.0) mg/dL Ur Leukocyte Esterase (Negative) Disposition Clinical Impression: Unspecified abdominal pain Disposition: HOME SELF-CARE Condition: Good Instructions (If sedation given, give patient instructions): Abdominal Pain (ED) Additional Instructions: Return to the emergency department for any new or worsening symptoms. Recommend follow-up with your primary care provider within the next 1 to 2 days for further evaluation. Is patient prescribed a controlled substance at d/c from ED?: No Referrals: Kemi Guevara MD [Primary Care Provider] - 1-2 days Time of Disposition: 00:35
[2024-04-15] MEDS: HYDROmorphone 1 MG/ML 1 ML SYRINGE IVP STA (23:22)
[2024-04-15] MEDS: ONDANSETRON 4 MG/2 ML VIAL IVP STA (23:23)
[2024-04-15 23:41] LABS: Appearance,Urine Clear (Clear); Bilirubin,Urine Negative (Negative); Blood,Urine Negative (Negative); Color,Urine Light Yellow; Glucose,Urine (UA) Negative (Negative); Ketones,Urine Negative (Negative); Leukocyte Esterase,Urine Negative (Negative); Nitrite,Urine Negative (Negative); PH, Urine 5.5 (5.0-8.0); Protein,Urine Negative (Negative); Specific Gravity,Urine 1.024 (1.001-1.035); Urobilinogen,Urine <2.0 mg/dL (<2.0)
[2024-04-15 23:59] LABS: Basophils % (A) 0 %; Eosinophils # (A) 0.1 k/uL (0-0.7); Eosinophils % (A) 1 %; HCT 40.8 % (34.0-46.0); HGB 12.5 gm/dL (11.4-16.0); Hypochromasia Marked; Lymphocytes # (A) 1.3 k/uL (1.0-4.8); Lymphocytes % (A) 14 %; MCH 27.9 pg (25.0-35.0); MCHC 30.5 g/dL (31.0-37.0); MCV 91.2 fL (80.0-100.0); Mean Platelet Volume 7.2; Monocytes # (A) 0.3 k/uL (0-1.0); Monocytes % (A) 3 %; Neutrophils % (A) 82 %; Platelet Count 224 k/uL (150-450); RBC 4.47 m/uL (3.80-5.40); RDW 13.1 % (11.5-15.5); WBC 9.8 k/uL (3.8-10.6)
[2024-04-16 00:01] LABS: ALT 25 U/L (4-34); African American GFR (CKD) >90 (>60 ml/min/1.73 sqM); Albumin 3.5 g/dL (3.5-5.0); Amylase 50 U/L (30-110); Anion Gap 0 mmol/L; Blood Urea Nitrogen 19 mg/dL (7-17); Calcium 8.3 mg/dL (8.4-10.2); Carbon Dioxide 34 mmol/L (22-30); Chloride 105 mmol/L (98-107); Glucose 99 mg/dL (74-99); Lipase 80 U/L (23-300); Non-African American GFR(CKD) >90 (>60 ml/min/1.73 sqM); Sodium 139 mmol/L (137-145); Total Bilirubin 0.4 mg/dL (0.2-1.3); Total Protein 5.8 g/dL (6.3-8.2)
[2024-04-16 00:13] LABS: AST 26 U/L (14-36); Alkaline Phosphatase 71 U/L (38-126)
--- NOTE | 2024-04-16 00:22 | CT ---
EXAM: CT Abdomen and Pelvis Without Intravenous Contrast CLINICAL HISTORY: ITS.REASON CT Reason: abdominal pain TECHNIQUE: Axial computed tomography images of the abdomen and pelvis without intravenous contrast. CTDI is 13.8 mGy and DLP is 797.5 mGy-cm. This CT exam was performed using one or more of the following dose reduction techniques: automated exposure control, adjustment of the mA and/or kV according to patient size, and/or use of iterative reconstruction technique. COMPARISON: 02/16/2024. FINDINGS: Lung bases: COPD. Minimal scarring and subsegmental atelectasis noted near the lung bases. Heart: Heart is normal in size. ABDOMEN: Liver: Fatty liver. Gallbladder and bile ducts: Status post cholecystectomy. No ductal dilation. Pancreas: The head, body, tail of the pancreas are unremarkable. No ductal dilation. Spleen: Spleen is normal in contour. Adrenals: The adrenal glands are unremarkable. Kidneys and ureters: Nonspecific stranding about the perinephric spaces without renal calculus or hydronephrosis. Stomach and bowel: Moderate quantity of ingested material in the stomach. Diverticulosis without diverticulitis. No bowel obstruction. PELVIS: Appendix: Status post appendectomy. Bladder: Unremarkable. No stones. Reproductive: Status post hysterectomy. ABDOMEN and PELVIS: Intraperitoneal space: Unremarkable. No free air. No significant fluid collection. Bones/joints: No acute fracture. No dislocation. No spondylolysis. Soft tissues: Unremarkable. Vasculature: Atherosclerotic disease of the abdominal aorta without aneurysmal dilatation. Lymph nodes: Unremarkable. No retroperitoneal lymphadenopathy. IMPRESSION: 1. Status post appendectomy. 2. Fatty liver. 3. Status post cholecystectomy. 4. No renal calculus or hydronephrosis. 5. No bowel obstruction. 6. Diverticulosis without diverticulitis. 7. Status post hysterectomy.
[2024-04-16 01:33] VITALS: BP 145/85; PULSE 77; RESP 18
[2024-04-16] MEDS: HYDROmorphone 0.5 MG/0.5 ML SYRINGE IVP STA (01:37)
== END 2024-04-16 01:39 | disposition home or self-care (01) ==
LOC: EC 22:15
CPT/HCPCS: 36415; 74176; 80053; 81003; 82150; 83605; 83690; 85025; 96374; 96375; 96376; 99285

== ENCOUNTER 2024-04-21 18:05 | Observation (INO) | payer MEDICARE ==
--- NOTE | 2024-04-21 18:19 | ED ---
SOB HPI - General Chief Complaint: Shortness of Breath Stated Complaint: ELVI Time Seen by Provider: 04/21/24 18:11 Source: EMS, RN notes reviewed, old records reviewed Mode of arrival: EMS Limitations: no limitations - History of Present Illness Initial Comments: This is a 49-year-old female to the ER for evaluation of shortness of breath with history of severe COPD states her breathing is worse than normal with severe COPD exacerbation here in the ER. Patient has multiple ER visits with no recent inpatient hospitalizations. No travel or sick contacts no fever or chest pain. Patient states currently she feels significantly short of breath and her work of breathing is increased MD Complaint: shortness of breath, cough, "asthma attack", anxiety -: days(s) Severity: severe Severity scale (1-10): 10 Consistency: constant Improves With: nothing Worsens With: nothing Known History Of: COPD, asthma, congestive heart failure Context: recent URI, recent illness Associated Symptoms: fever, cough Treatments Prior to Arrival: none - Related Data Home Medications Medication Instructions Recorded Confirmed Spironolactone [Aldactone] 25 mg PO DAILY 02/05/17 04/22/24 carvediloL [Coreg] 25 mg PO BID 03/26/21 04/22/24 oxyCODONE-APAP 10-325MG [Percocet 1 tab PO TID 03/16/22 04/22/24 10-325 mg] Citalopram Hydrobromide [CeleXA] 60 mg PO DAILY 01/27/23 04/22/24 Pantoprazole [Protonix] 40 mg PO DAILY 05/29/23 04/22/24 Albuterol Inhaler [Ventolin Hfa 2 puff INHALATION RT-QID PRN 04/02/24 04/22/24 Inhaler] Famotidine 20 mg PO BID 04/02/24 04/22/24 Montelukast [Singulair] 10 mg PO HS PRN 04/02/24 04/22/24 Rosuvastatin Calcium [Crestor] 5 mg PO DAILY 04/02/24 04/22/24 Xanax(Unknown Dose) 1 tab PO DAILY PRN 04/02/24 04/22/24 rOPINIRole HCL [Requip] 0.25 mg PO HS 04/02/24 04/22/24 traZODone HCL [Desyrel] 50 mg PO HS 04/02/24 04/22/24 Lidocaine 4% Patch 1 patch TOPICAL DAILY PRN 04/22/24 04/22/24 Nicotine 14Mg/24Hr Patch [Habitrol] 1 patch TRANSDERM DAILY PRN 04/22/24 04/22/24 Previous Rx's Medication Instructions Recorded Budesonide-Formot 160-4.5 Mcg 2 puff INHALATION RT-BID #1 each 04/06/24 [Symbicort 160-4.5 Mcg Inhaler] Ipratropium-Albuterol Nebulize 3 ml INHALATION RT-Q4H #120 each 04/06/24 [Duoneb 0.5 mg-3 mg/3 ml Soln] Losartan [Cozaar] 100 mg PO DAILY #30 tab 04/06/24 Doxycycline [Vibramycin] 100 mg PO BID #10 cap 04/24/24 Nicotine 14Mg/24Hr Patch [Habitrol] 1 patch TRANSDERM DAILY #30 patch 04/24/24 predniSONE 10 mg PO DIRECTED #35 tab 04/24/24 Allergies Allergy/AdvReac Type Severity Reaction Status Date / Time adhesive Allergy Rash/Hives Verified 04/22/24 11:53 amoxicillin Allergy Anaphylaxis Verified 04/22/24 11:53 azithromycin [From Zithromax] Allergy Anaphylaxis Verified 04/22/24 11:53 cephalexin monohydrate Allergy Anaphylaxis Verified 04/22/24 11:53 [From Keflex] ciprofloxacin Allergy Anaphylaxis Verified 04/22/24 11:53 clindamycin Allergy Anaphylaxis Verified 04/22/24 11:53 Iodinated Contrast Media Allergy Anaphylaxis Verified 04/22/24 11:53 [Iodinated Contrast- Oral and IV Dye] ketorolac [From Toradol] Allergy Unknown Verified 04/22/24 11:53 levofloxacin [From Levaquin] Allergy Rash/Hives Verified 04/22/24 11:53 naproxen Allergy Anaphylaxis Verified 04/22/24 11:53 NSAIDS (Non-Steroidal Allergy Rash/Hives Verified 04/22/24 11:53 Anti-Inflamma orphenadrine [From Norflex] Allergy Anaphylaxis Verified 04/22/24 11:53 shellfish derived Allergy Anaphylaxis Verified 04/22/24 11:53 Sulfa (Sulfonamide Allergy Anaphylaxis Verified 04/22/24 11:53 Antibiotics) sulfamethoxazole Allergy Anaphylaxis Verified 04/22/24 11:53 [From Bactrim] tramadol Allergy Unknown Verified 04/22/24 11:53 trimethoprim [From Bactrim] Allergy Anaphylaxis Verified 04/22/24 11:53 Review of Systems ROS Statement: Those systems with pertinent positive or pertinent negative responses have been documented in the HPI. ROS Other: All systems not noted in ROS Statement are negative. 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 IBS, cellulitis of the chin, CVA about 1 year ago(no residual) History of Any Multi-Drug Resistant Organisms: MRSA Date of last positivie culture/infection: 07/2016 MDRO Source:: Chin Past Surgical History: Appendectomy, Section, Cholecystectomy, Hysterectomy, Tubal Ligation Additional Past Surgical History / Comment(s): oral surgery . Pancreas biopsy May 2015. Past Anesthesia/Blood Transfusion Reactions: No Reported Reaction Past Psychological History: ADD/ADHD, Anxiety, Bipolar, Depression Smoking Status: Current every day smoker Past Alcohol Use History: None Reported Past Drug Use History: Marijuana - Past Family History Father History Unknown: Yes Family Medical History: No Reported History Additional Family Medical History / Comment(s): Pt adopted Mother History Unknown: Yes Additional Family Medical History / Comment(s): Pt adopted General Exam Limitations: no limitations General appearance: alert, in no apparent distress, appears intoxicated, anxious Head exam: Present: atraumatic, normocephalic, normal inspection Eye exam: Present: normal appearance, PERRL, EOMI. Absent: scleral icterus, conjunctival injection, periorbital swelling ENT exam: Present: normal exam, mucous membranes moist Neck exam: Present: normal inspection. Absent: tenderness, meningismus, lymphadenopathy Respiratory exam: Present: respiratory distress, accessory muscle use, decreased breath sounds, prolonged expiratory. Absent: wheezes, rales, rhonchi, stridor Cardiovascular Exam: Present: regular rate, normal rhythm, normal heart sounds. Absent: systolic murmur, diastolic murmur, rubs, gallop, clicks GI/Abdominal exam: Present: soft, normal bowel sounds. Absent: distended, tenderness, guarding, rebound, rigid Extremities exam: Present: normal inspection, full ROM, normal capillary refill. Absent: tenderness, pedal edema, joint swelling, calf tenderness Back exam: Present: normal inspection Neurological exam: Present: alert, oriented X3, CN II-XII intact Psychiatric exam: Present: normal affect, normal mood Skin exam: Present: warm, dry, intact, normal color. Absent: rash Course Vital Signs 04/21/24 04/21/24 04/21/24 18:11 19:00 19:52 Temperature 97.6 F Pulse Rate 88 86 77 Respiratory 20 18 Rate Blood Pressure 192/80 O2 Sat by Pulse 91 L 96 Oximetry 04/21/24 04/21/24 04/21/24 20:13 20:50 20:53 Temperature 98.3 F Pulse Rate 78 82 Respiratory 13 Rate Blood Pressure 180/76 180/76 O2 Sat by Pulse 99 Oximetry - Reevaluation(s) Reevaluation #1: 04/21/24 20:30 Medical records reviewed Reevaluation #2: 04/21/24 20:30 Patient symptoms unchanged Reevaluation #3: 04/21/24 20:30 Patient informed of results and questions answered Reevaluation #4: Was pt. sent in by a medical professional or institution (, PA, SWIMMING PO[employer] SALESPERSON, urgent care, hospital, or [place] health care facility...) When possible be specific @ -no Did you speak to anyone other than the patient for history (EMS, parent, family, police, friend...)? What history was obtained from this source @ -no Did you review nursing and triage notes (agree or disagree)? Why? @ -agree Are old charts reviewed (outside hosp., previous admission, EMS record, old EKG, old radiological studies, urgent care reports/EKG's, [place] health care facility records)? Report findings @ -yes Differential Diagnosis (chest pain, altered mental status, abdominal pain women, abdominal pain men, vaginal bleeding, weakness, fever, dyspnea, syncope, headache, dizziness, GI bleed, back pain, seizure, CVA, palpatations, mental health, musculoskeletal)? @ -prior EKG interpreted by me (3pts min.). @ -yes X-rays interpreted by me (1pt min.). @ -yes negative for acute disease CT interpreted by me (1pt min.). @ -no U/S interpreted by me (1pt. min.). @ -no What testing was considered but not performed or refused? (CT, X-rays, U/S, labs)? Why? @ -none What meds were considered but not given or refused? Why? @ -none Did you discuss the management of the patient with other professionals (professionals i.e. , PA, SW[employer]MING [employer] SALESPERSON, lab, RT, psych nurse, public health social worker, supervisor [employer], teacher, employment security officer, onsite case manager)? Give summary @ -no Was smoking cessation discussed for >3mins.? @ -no Was critical care preformed (if so, how long)? @ -yes31 Were there social determinants of health that impacted care today? How? (Homelessness, low income, unemployed, alcoholism, drug addiction, transportation, low edu. Level, literacy, decrease access to med. care, intermediate, rehab)? @ -none Was there de-escalation of care discussed even if they declined (Discuss DNR or withdrawal of care, Hospice)? DNR status @ -no What co-morbidities impacted this encounter? (DM, HTN, Smoking, COPD, CAD, Cancer, CVA, ARF, Chemo, Hep., AIDS, mental health diagnosis, sleep apnea, morbid obesity)? @ -none Was patient admitted / discharged? Hospital course, mention meds given and route, prescriptions, significant lab abnormalities, going to OR and other pertinent info. @ -49 female with significant COPD exacerbation continue BiPAP treatment and will admit for further supportive care Admitted Undiagnosed new problem with uncertain prognosis? @ -no Drug Therapy requiring intensive monitoring for toxicity (Heparin, Nitro, Insuli n, Cardizem)? @ -no Were any procedures done? @ -no Diagnosis/symptom? @ -significant COPD exacerbation on BiPAP Acute, or Chronic, or Acute on Chronic? @ -Acute Uncomplicated (without systemic symptoms) or Complicated (systemic symptoms)? @ -Complicated Side effects of treatment? @ -no Exacerbation, Progression, or Severe Exacerbation? @ -exacerbation Poses a threat to life or bodily function? How? (Chest pain, [place], [place], pneumonia, PE, COPD, DKA, ARF, appy, cholecystitis, CVA, Diverticulitis, Homicidal, Suicidal, threat to staff... and all critical care pts) @ -yes with severe respiratory distress Reevaluation #5: Differential Dyspnea: Coronary syndrome, arrhythmia, tamponade, asthma, COPD, pulmonary embolism, pneumonia, pneumothorax, pulmonary effusion, anaphylaxis, diabetic ketoacidosis, flailed chest, pulmonary contusion, diaphragmatic rupture, anemia, neuromuscular, this is not meant to be an all-inclusive list. - Consultations Consultation #1: Spoke with Cant who agrees to admit this patient Medical Decision Making - Medical Decision Making 49 female admitted for severe COPD exacerbation - Lab Data Result diagrams: 04/22/24 02:37 04/22/24 02:37 Lab Results 04/21/24 04/21/24 04/21/24 Range/Units 19:35 19:35 19:35 WBC 9.8 (3.8-10.6) k/uL RBC 4.29 (3.80-5.40) m/uL Hgb 11.8 (11.4-16.0) gm/dL Hct 38.0 (34.0-46.0) % MCV 88.6 (80.0-100.0) fL MCH 27.4 (25.0-35.0) pg MCHC 31.0 (31.0-37.0) g/dL RDW 13.0 (11.5-15.5) % Plt Count 238 (150-450) k/uL MPV 6.7 Neutrophils % 71 % Lymphocytes % 21 % Monocytes % 5 % Eosinophils % 1 % Basophils % 0 % Neutrophils # 6.9 (1.3-7.7) k/uL Lymphocytes # 2.1 (1.0-4.8) k/uL Monocytes # 0.5 (0-1.0) k/uL Eosinophils # 0.1 (0-0.7) k/uL Basophils # 0.0 (0-0.2) k/uL Hypochromasia Slight PT 11.3 (10.0-12.5) sec INR 1.0 (<1.2) APTT 26.0 (22.0-30.0) sec Sodium 135 L (137-145) mmol/L Potassium 4.2 (3.5-5.1) mmol/L Chloride 98 (98-107) mmol/L Carbon Dioxide 35 H (22-30) mmol/L Anion Gap 2 mmol/L BUN 16 (7-17) mg/dL Creatinine 0.46 L (0.52-1.04) mg/dL Est GFR (CKD-EPI)AfAm >90 (>60 ml/min/1.73 sqM) Est GFR (CKD-EPI)NonAf >90 (>60 ml/min/1.73 sqM) Glucose 118 H (74-99) mg/dL Plasma Lactic Acid Srinivas (0.7-2.0) mmol/L Calcium 8.7 (8.4-10.2) mg/dL Magnesium 1.5 L (1.6-2.3) mg/dL Total Bilirubin 0.8 (0.2-1.3) mg/dL AST 26 (14-36) U/L ALT 21 (4-34) U/L Alkaline Phosphatase 68 (38-126) U/L Troponin I (0.000-0.034) ng/mL NT-Pro-B Natriuret Pep 1450 pg/mL Total Protein 6.0 L (6.3-8.2) g/dL Albumin 3.7 (3.5-5.0) g/dL 04/21/24 04/21/24 Range/Units 19:35 19:35 WBC (3.8-10.6) k/uL RBC (3.80-5.40) m/uL Hgb (11.4-16.0) gm/dL Hct (34.0-46.0) % MCV (80.0-100.0) fL MCH (25.0-35.0) pg MCHC (31.0-37.0) g/dL RDW (11.5-15.5) % Plt Count (150-450) k/uL MPV Neutrophils % % Lymphocytes % % Monocytes % % Eosinophils % % Basophils % % Neutrophils # (1.3-7.7) k/uL Lymphocytes # (1.0-4.8) k/uL Monocytes # (0-1.0) k/uL Eosinophils # (0-0.7) k/uL Basophils # (0-0.2) k/uL Hypochromasia PT (10.0-12.5) sec INR (<1.2) APTT (22.0-30.0) sec Sodium (137-145) mmol/L Potassium (3.5-5.1) mmol/L Chloride (98-107) mmol/L Carbon Dioxide (22-30) mmol/L Anion Gap mmol/L BUN (7-17) mg/dL Creatinine (0.52-1.04) mg/dL Est GFR (CKD-EPI)AfAm (>60 ml/min/1.73 sqM) Est GFR (CKD-EPI)NonAf (>60 ml/min/1.73 sqM) Glucose (74-99) mg/dL Plasma Lactic Acid Srinivas 2.5 H* (0.7-2.0) mmol/L Calcium (8.4-10.2) mg/dL Magnesium (1.6-2.3) mg/dL Total Bilirubin (0.2-1.3) mg/dL AST (14-36) U/L ALT (4-34) U/L Alkaline Phosphatase (38-126) U/L Troponin I <0.012 (0.000-0.034) ng/mL NT-Pro-B Natriuret Pep pg/mL Total Protein (6.3-8.2) g/dL Albumin (3.5-5.0) g/dL - EKG Data -: EKG Interpreted by Me (EKG is sinus 84 NC 149 QRS 83 QTc 439) - Radiology Data Radiology results: report reviewed (Chest x-ray is negative for acute disease), image reviewed Critical Care Time Critical Care Time: Yes Total Critical Care Time: 31 Disposition Clinical Impression: Acute exacerbation of chronic obstructive pulmonary disease, BiPAP (biphasic positive airway pressure) dependence, Hypertensive urgency, Acute exacerbation of COPD with asthma, Change in mental status, Hypoxia, Acute exacerbation of chronic obstructive airways disease, Chronic generalized abdominal pain, Chest pain Disposition: ADMITTED IP TO THIS HOSP Condition: Fair Is patient prescribed a controlled substance at d/c from ED?: No Time of Disposition: 20:30
[2024-04-21 19:48] LABS: Basophils % (A) 0 %; Eosinophils # (A) 0.1 k/uL (0-0.7); Eosinophils % (A) 1 %; HGB 11.8 gm/dL (11.4-16.0); Hypochromasia Slight; Lymphocytes # (A) 2.1 k/uL (1.0-4.8); Lymphocytes % (A) 21 %; MCH 27.4 pg (25.0-35.0); MCV 88.6 fL (80.0-100.0); Mean Platelet Volume 6.7; Monocytes # (A) 0.5 k/uL (0-1.0); Monocytes % (A) 5 %; Neutrophils # (A) 6.9 k/uL (1.3-7.7); Neutrophils % (A) 71 %; Platelet Count 238 k/uL (150-450); RBC 4.29 m/uL (3.80-5.40); WBC 9.8 k/uL (3.8-10.6)
[2024-04-21] MEDS: methylPREDNISolone SOD SUCCI 125 MG/2 ML VIAL IV STA (19:48)
[2024-04-21] MEDS: MORPHINE SULFATE 4 MG/ML SYRINGE IV STA (19:48)
[2024-04-21] MEDS: IPRATROPIUM 0.5 MG/2.5 ML NEBU INHALATION STA (19:49)
[2024-04-21] MEDS: ALBUTEROL NEBULIZED 2.5 MG/3 ML INHALATION STA (19:49)
--- NOTE | 2024-04-21 19:51 | XR ---
EXAMINATION TYPE: XR chest 2V DATE OF EXAM: 04/21/2024 COMPARISON: 04/14/2024 INDICATION: Difficulty breathing worsening TECHNIQUE: Frontal and lateral views of the chest are obtained. FINDINGS: The heart size is normal. The pulmonary vasculature is normal. The lungs are clear. IMPRESSION: 1. No acute pulmonary process. [facility], Workstation: [facility], 04/21/2024 7:48 PM
[2024-04-21] MEDS: SODIUM CHLORIDE 0.9% 1,000 ML IV STA (19:53)
[2024-04-21 19:58] LABS: ALT 21 U/L (4-34); African American GFR (CKD) >90 (>60 ml/min/1.73 sqM); Anion Gap 2 mmol/L; Blood Urea Nitrogen 16 mg/dL (7-17); Carbon Dioxide 35 mmol/L (22-30); Chloride 98 mmol/L (98-107); Glucose 118 mg/dL (74-99); Magnesium 1.5 mg/dL (1.6-2.3); Non-African American GFR(CKD) >90 (>60 ml/min/1.73 sqM); Sodium 135 mmol/L (137-145); Total Bilirubin 0.8 mg/dL (0.2-1.3)
[2024-04-21] MEDS: ONDANSETRON 4 MG/2 ML VIAL IVP STA (20:01)
[2024-04-21 20:07] LABS: AST 26 U/L (14-36); Albumin 3.7 g/dL (3.5-5.0); Alkaline Phosphatase 68 U/L (38-126); Calcium 8.7 mg/dL (8.4-10.2); NT-Pro-B-Type Natriuretic Pept 1450 pg/mL; Potassium 4.2 mmol/L (3.5-5.1)
[2024-04-21 20:08] LABS: Prothrombin Time 11.3 sec (10.0-12.5)
[2024-04-21] MEDS ORDERED: NALOXONE 0.4 MG/ML 1 ML VIAL IV PRN (20:32)
[2024-04-21] MEDS ORDERED: ALBUTEROL NEBULIZED 2.5 MG/3 ML INHALATION PRN ×2 (21:24→22:10)
[2024-04-21] MEDS: IPRATROPIUM-ALBUTEROL 3 ML NEB INHALATION STA (22:24)
[2024-04-21] MEDS: MORPHINE SULFATE 4 MG/ML SYRINGE IV PRN (22:53)
[2024-04-21] MEDS: methylPREDNISolone SOD SUCCI 125 MG/2 ML VIAL IV SCH (22:53)
[2024-04-21] MEDS: IPRATROPIUM-ALBUTEROL 3 ML NEB INHALATION SCH (23:39)
[2024-04-22] MEDS: SODIUM CHLORIDE 0.9% 1,000 ML IV SCH (00:38)
[2024-04-22] MEDS: PANTOPRAZOLE 40 MG TABLET PO SCH (06:36)
[2024-04-22] MEDS: carvediloL 6.25 MG TAB PO SCH (06:36)
[2024-04-22] MEDS: SYMBICORT 160-4.5 MCG INHALER INHALATION SCH (07:42)
[2024-04-22] MEDS ORDERED: ALBUTEROL NEBULIZED 2.5 MG/3 ML INHALATION SCH (08:00)
[2024-04-22] MEDS: CITALOPRAM HYDROBROMIDE 20 MG TAB PO SCH (08:55)
[2024-04-22] MEDS: NICOTINE 14MG/24HR PATCH TRANSDERM SCH (08:55)
[2024-04-22] MEDS: LOSARTAN 50 MG TAB PO SCH (08:55)
[2024-04-22] MEDS: predniSONE 10 MG TAB PO SCH (08:55)
[2024-04-22] MEDS: SPIRONOLACTONE 25 MG TAB PO SCH (08:55)
[2024-04-22] MEDS: ATORVASTATIN 10 MG TAB PO SCH (09:00)
[2024-04-22] MEDS: FAMOTIDINE 20 MG TAB PO SCH (09:00)
[2024-04-22] MEDS: oxyCODONE-APAP 10-325MG 1 EACH TAB PO SCH (09:01)
[2024-04-22 09:14] LABS: Basophils # (A) 0 X 10*3/uL (0.00-0.10); Basophils % (A) 0 %; Eosinophils # (A) 0 X 10*3/uL (0.04-0.35); Eosinophils % (A) 0 %; HCT 40.1 % (37.2-46.3); HGB 12.3 g/dL (12.0-15.0); Lymphocytes # (A) 0.36 X 10*3/uL (0.90-5.00); Lymphocytes % (A) 4.5 %; MCHC 30.7 g/dL (32.0-37.0); MCV 87.9 FL (80.0-97.0); Mean Platelet Volume 8.9 FL (9.5-12.2); Monocytes # (A) 0.04 X 10*3/uL (0.20-1.00); Monocytes % (A) 0.5 %; NRBC Per 100 WBC 0 X 10*3/uL (0.00-0.01); Neutrophils % (A) 94.6 %; Platelet Count 242 X 10*3/uL (140-440); RBC 4.56 X 10*6/uL (4.10-5.20); WBC 8.03 X 10*3/uL (4.50-10.00)
[2024-04-22 10:20] LABS: ALT 20 U/L (8-44); AST 15 U/L (13-35); Albumin 3.9 g/dL (3.8-4.9); Albumin/Globulin Ratio 1.77 Ratio (1.60-3.17); Alkaline Phosphatase 92 U/L (41-126); Blood Urea Nitrogen 13.6 mg/dL (9.0-27.0); Calcium 8.7 mg/dL (8.7-10.3); Carbon Dioxide 32.3 mmol/L (21.6-31.8); Chloride 96 mmol/L (96-109); Globulin 2.2 g/dL (1.6-3.3); Glucose 200 mg/dL (70-110); Magnesium 1.5 mg/dL (1.5-2.4); Potassium 4.7 mmol/L (3.5-5.5); Sodium 139 mmol/L (135-145); Total Bilirubin 0.4 mg/dL (0.3-1.2); Total Protein 6.1 g/dL (6.2-8.2)
[2024-04-22 10:33] LABS: Appearance,Urine Clear (Clear); Bilirubin,Urine Negative (Negative); Blood,Urine Trace (Negative); Color,Urine Colorless; Glucose,Urine (UA) Negative (Negative); Ketones,Urine Negative (Negative); Leukocyte Esterase,Urine Negative (Negative); Mucus,Urine Rare /hpf; Nitrite,Urine Negative (Negative); Protein,Urine Negative (Negative); RBC,Urine 2 /hpf (0-5); Specific Gravity,Urine 1.016 (1.001-1.035); Squamous Epithelial Cell,Urine 2 /hpf (0-4); Urobilinogen,Urine <2.0 mg/dL (<2.0); WBC,Urine 2 /hpf (0-5)
--- NOTE | 2024-04-22 10:35 | P.HPIM ---
History of Present Illness H&P Date: 04/21/24 HISTORY OF PRESENT ILLNESS: 49-year-old with active medical history of severe advanced COPD oxygen dependent, chronic diastolic congestive heart failure, previous history of CVA/TIA, history of rheumatoid arthritis, fibromyalgia, hypertension, hyperlipidemia, chronic nicotine dependency, history of recurrent abdominal pain with history of IBS, previous history of MRSA, history of seizure activity with no seizure last few month. Patient seen Dr. Guevara primary care physician and has Dr. SKYLAR Su primary pulmonary which she sees when she is admitted to [facility] but has been repeatedly coming back to [facility] has been seen Dr. Hooper/Asa lately. She has been in and out of the hospital many times and multiple visit to the emergency department with COPD exacerbation chronic smoker and occasional compliant to medication has been a problem. She was hospitalized last time less than a month ago with acute respiratory failure along with COPD exacerbation treated manage and sent home to see her primary care and probably her pulmonary as an outpatient. Return to the emergency department on 04/21/2024 with acute respiratory failure with severe hypoxia tightness and wheezy she called 911 EMS brought her to the emergency department continue and increase her oxygen up to 5 L after few rounds of updraft treatment and loading her with steroid her symptom s settle down slightly only but continue to be quite with respiratory failure continue to have significant wheezing. Chest x-ray did not show any infiltrate, EKG continued to show sinus rhythm with pulse of 84 beats per minutes.Through the last hospitalization she never had any positive culture with exception of normal aroldo. The patient apparently seen Dr. SKYLAR Su has an outpatient and she claimed had seen him after her discharge last time with making follow-up appointment has not been easy but has not been seen since. Addressing with patient again nicotine dependency and compliant to medication was done she claims she has not smoked since last time and has been using her oxygen on more regular basis and updraft treatment regularly. Her lab value in the emergency department showed normal CBC and CMP with exception of low magnesium and lactic acid 2.5. Activation for sepsis protocol patient was placed on IV fluid of 0.9 at 150 cc an hour. No sign of infection chest x-ray is clear currently urine sample was not done yet. Blood culture should be done. With her lactic acid being elevated decide to keep patient on at least doxycycline to cover for bronchitis till we are clear with lactic acid and the possibility of sepsis. REVIEW OF SYSTEMS: CONSTITUTIONAL: Well-developed mild respiratory distress EYES: No icterus sclerae, no conjunctivitis. EARS, NOSE, MOUTH, THROAT, and FACE: No sore throat, lymphadenopathy, carotid br uits or deformity. RESPIRATORY: Positive shortness of breath cough and wheezes CARDIOVASCULAR: No CP, Palpitation, PND, Orthopnea, or angina. Mild tachycardia GASTROINTESTINAL: No Abd pain, Nausea or vomiting, no Diarrhea or constipation, No GI Bleed, no distention or masses. GENITOURINARY: Negative for Hematuria or UTI, no kidney stones. INTEGUMENT/BREAST: Negative for any muscular injury with mild osteoarthritis.. HEMATOLOGIC/LYMPHATIC: Negative for bleed or purpura. MUSCULOSKELTAL: Negative for Myalgia or arthralgia. NEURLOGICAL: No LOC, Sz or syncope, blurred vision dizziness or abnormality.. BEHAVIORAL/PSYCH: Negative. ENDOCRINE: Negative. PHYSICAL EXAMINATION: General Appearance: Alert, cooperative, still in mild distress. Neck HEENT: Supple, no lymphadenopathy, no thyroid enlargement, no carotid bruits. Lungs: Decreased breath sound bilaterally with fine rhonchi positive mild expiratory wheezes. Chest Wall: Decreased expansion with deep inspiration no tenderness and no deformity was found on exam, no costochondral pain or discomfort. Heart: Regular rate and rhythm, S1, S2 normal, no murmur, rub or gallop. Back: Symmetric, no curvature, ROM normal, no CVA tenderness. Abdomen: Soft, non-tender, bowel sounds active all four quadrants, no masses, no organomegaly. Extremities: Extremities normal, atraumatic, no cyanosis or edema. Pulses: 2+ and symmetric. Skin: Skin color, texture, tugor normal, no rashes or lesions. Neurologic: Alert oriented x3 cranial nerves II through XII intact, no motor deficit, no abnormal balance or gait. ASSESSMENT AND PLAN: _Acute respiratory failure secondary to COPD exacerbation with probable bronchitis, continue Solu-Medrol, updraft treatment regularly will consult pulmonary. _Possible acute bronchitis: Will continue doxycycline 100 mg twice a day, lactic acid was elevated continue IV hydration with 0.9 normal saline at 150 cc an hour repeat lactic acid in the next few hours. In the meanwhile continue doxycycline. _Advanced COPD with COPD exacerbation: Continue DuoNeb and Pulmicort still on Solu-Medrol 60 mg every 6 hours, pulmonary consultation be done will titrate O2 try to keep her pulse ox above 90 percentile. _Chronic history of nicotine dependency: Start patient back on nicotine patch. _Chronic diastolic congestive heart failure her echocardiogram is up-to-date will continue losartan, spironolactone Coreg and furosemide. _Hypertension: Blood pressure systolic still below 130 on current medication remain on Coreg 25 mg twice a day, losartan 50 mg daily and spironolactone 25 mg a day. _Hyperlipidemia: Will continue patient on atorvastatin 10 mg daily. _Restless leg syndrome: Continue ropinirole 0.25 mg at bedtime. _Chronic pain syndrome: Secondary to degenerative disc disease has been on oxycodone 10 mg 3 times a day as needed. _Chronic depression: Remain on trazodone 50 mg a day along with citalopram 60 mg daily still using alprazolam 0.25 mg up to 3 times a day as needed. _Severe GERD/GI prophylaxis: Switch patient from Pepcid to pantoprazole 40 mg daily. _DVT prophylaxis: Early mobilization and knee-high SALEEM hose. CODE STATUS: Full code. Admit patient to the inpatient service for more than 2 night stay. 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 IBS, cellulitis of the chin, CVA about 1 year ago(no residual) History of Any Multi-Drug Resistant Organisms: MRSA Date of last positivie culture/infection: 07/2016 MDRO Source:: [facility] Past Surgical History: Appendectomy, Section, Cholecystectomy, Hysterectomy, Tubal Ligation Additional Past Surgical History / Comment(s): oral surgery . Pancreas biopsy May 2015. Past Anesthesia/Blood Transfusion Reactions: No Reported Reaction Past Psychological History: ADD/ADHD, Anxiety, Bipolar, Depression Additional Psychological History / Comment(s): Pt resides with her spouse and other family members. Pt states borderline personality disorder diagnosed around 2010. She has a cane and walker but does not normally use them. Occasional marijuana/edibles Smoking Status: Current every day smoker Past Alcohol Use History: None Reported Additional Past Alcohol Use History / Comment(s): Pt started smoking in 1983 and was a 3 ppd smoker but about 6 months ago cut down to 3 cigarettes a day. Patient does vape in between Past Drug Use History: Marijuana Additional Drug Use History / Comment(s): Says she occasionally has edible marijuana- a couple times within the last year. - Past Family History Father History Unknown: Yes Family Medical History: No Reported History Additional Family Medical History / Comment(s): Pt adopted Mother History Unknown: Yes Additional Family Medical History / Comment(s): Pt adopted Medications and Allergies Home Medications Medication Instructions Recorded Confirmed Type Spironolactone [Aldactone] 25 mg PO DAILY 02/05/17 04/02/24 History carvediloL [Coreg] 25 mg PO BID 03/26/21 04/02/24 History oxyCODONE-APAP 10-325MG [Percocet 1 tab PO TID 03/16/22 04/02/24 History 10-325 mg] Citalopram Hydrobromide [CeleXA] 60 mg PO DAILY 01/27/23 04/02/24 History Pantoprazole [Protonix] 40 mg PO DAILY 05/29/23 04/02/24 History Albuterol Inhaler [Ventolin Hfa 2 puff INHALATION RT-QID PRN 04/02/24 04/02/24 History Inhaler] Famotidine 20 mg PO BID 04/02/24 04/02/24 History Montelukast [Singulair] 10 mg PO HS PRN 04/02/24 04/02/24 History Rosuvastatin Calcium [Crestor] 5 mg PO DAILY 04/02/24 04/02/24 History Xanax(Unknown Dose) 1 tab PO DAILY PRN 04/02/24 04/02/24 History rOPINIRole HCL [Requip] 0.25 mg PO HS 04/02/24 04/02/24 History traZODone HCL [Desyrel] 50 mg PO HS 04/02/24 04/02/24 History Budesonide-Formot 160-4.5 Mcg 2 puff INHALATION RT-BID #1 each 04/06/24 Rx [Symbicort 160-4.5 Mcg Inhaler] Ipratropium-Albuterol Nebulize 3 ml INHALATION RT-Q4H #120 each 04/06/24 Rx [Duoneb 0.5 mg-3 mg/3 ml Soln] Lidocaine 4% Patch 1 patch TOPICAL DAILY #14 patch 04/06/24 Rx Losartan [Cozaar] 100 mg PO DAILY #30 tab 04/06/24 Rx Nicotine 14Mg/24Hr Patch [Habitrol] 1 patch TRANSDERM DAILY #30 patch 04/06/24 Rx predniSONE 10 mg PO DAILY #30 tab 04/06/24 Rx Cephalexin [Keflex] 500 mg PO Q6HR #40 cap 04/15/24 Rx Allergies Allergy/AdvReac Type Severity Reaction Status Date / Time adhesive Allergy Rash/Hives Verified 04/21/24 18:16 amoxicillin Allergy Anaphylaxis Verified 04/21/24 18:16 azithromycin [From Zithromax] Allergy Anaphylaxis Verified 04/21/24 18:16 cephalexin monohydrate Allergy Anaphylaxis Verified 04/21/24 18:16 [From Keflex] ciprofloxacin Allergy Anaphylaxis Verified 04/21/24 18:16 clindamycin Allergy Anaphylaxis Verified 04/21/24 18:16 Iodinated Contrast Media Allergy Anaphylaxis Verified 04/21/24 18:16 [Iodinated Contrast- Oral and IV Dye] ketorolac [From Toradol] Allergy Unknown Verified 04/21/24 18:16 levofloxacin [From Levaquin] Allergy Rash/Hives Verified 04/21/24 18:16 naproxen Allergy Anaphylaxis Verified 04/21/24 18:16 NSAIDS (Non-Steroidal Allergy Rash/Hives Verified 04/15/24 22:30 Anti-Inflamma orphenadrine [From Norflex] Allergy Anaphylaxis Verified 04/15/24 22:30 shellfish derived Allergy Anaphylaxis Verified 04/15/24 22:30 Sulfa (Sulfonamide Allergy Anaphylaxis Verified 04/15/24 22:30 Antibiotics) sulfamethoxazole Allergy Anaphylaxis Verified 04/15/24 22:30 [From Bactrim] tramadol Allergy Unknown Verified 04/15/24 22:30 trimethoprim [From Bactrim] Allergy Anaphylaxis Verified 04/15/24 22:30 Physical Exam Vitals: Vital Signs Temp Pulse Resp BP Pulse Ox 04/21/24 20:53 180/76 04/21/24 20:50 98.3 F 82 13 180/76 99 04/21/24 20:13 78 04/21/24 19:52 77 04/21/24 19:00 86 18 192/80 96 04/21/24 18:11 97.6 F 88 20 91 L Intake and Output 04/21/24 04/21/24 04/21/24 06:59 14:59 22:59 Other: Weight 85.729 kg Results CBC & Chem 7: 04/21/24 19:35 04/21/24 19:35 Labs: Abnormal Lab Results - Last 24 Hours (Table) 04/21/24 Range/Units 19:35 Sodium 135 L (137-145) mmol/L Carbon Dioxide 35 H (22-30) mmol/L Creatinine 0.46 L (0.52-1.04) mg/dL Glucose 118 H (74-99) mg/dL Magnesium 1.5 L (1.6-2.3) mg/dL Total Protein 6.0 L (6.3-8.2) g/dL Thrombosis Risk Factor Assmnt - Choose All That Apply Any of the Below Risk Factors Present?: Yes Each Factor Represents 1 point: Abnormal pulmonary function (COPD), Age 41-60 years Thrombosis Risk Factor Assessment Total Risk Factor Score: 2 Thrombosis Risk Factor Assessment Level: Low Risk
[2024-04-22] MEDS ORDERED: DEXTROSE 50% SYRINGE 50 ML IVP PRN ×2 (10:40)
[2024-04-22 11:11] LABS: Glucose,Whole Blood 145 mg/dL (70-110)
[2024-04-22] MEDS: hydrALAZINE HCL 25 MG TAB PO PRN (11:21)
[2024-04-22] MEDS: DOXYCYCLINE 100 MG CAP PO SCH (11:21)
[2024-04-22] MEDS: MAGNESIUM SULFATE-D5W PMX 1 GM in DEXTROSE/WATER 1 100ML.BAG IVPB SCH (11:22)
[2024-04-22] MEDS: INSULIN ASPART (NovoLOG) 100 UNIT/ML VIAL SQ SCH (12:21)
[2024-04-22] MEDS: ALPRAZolam 1 MG TAB PO PRN (12:23)
[2024-04-22] MEDS ORDERED: INSULIN ASPART (NovoLOG) 100 UNIT/ML VIAL SQ SCH (12:30)
--- NOTE | 2024-04-22 15:59 | P.CNPUL ---
History of Present Illness Consult date: 04/22/24 Requesting physician: Daren Nolen Reason for consult: COPD Chief complaint: Shortness of breath History of present illness: This is a 49-year-old female with history of severe advanced COPD chronic diastolic congestive heart failure, rheumatoid arthritis, fibromyalgia hypertension chronic nicotine dependence, irritable bowel syndrome, history of seizures, patient normally sees Dr. SKYLAR Su as her cash clerk but we have seen the patient in the past at [facility] when she was admitted. Patient is maintained on oxygen at home she is also on prednisone at 10 mg daily, patient came in with 2 weeks history of increased shortness of breath, cough, wheezing. Chest x-ray showed no evidence of infiltrate. Patient was admitted and this consult was initiated. CBC was normal electrolytes are normal renal profile is normal chest x-ray was normal Review of Systems Constitutional: Negative Cardiovascular: Denies leg edema, Denies orthopnea, Denies palpitations, Denies paroxysmal nocturnal dyspnea, Denies syncope Respiratory: Reports as per HPI, cough wheezing and shortness of breath Gastrointestinal: Reports nausea, Denies abdominal pain, Denies change in bowel habits, Denies constipation, Denies diarrhea, Denies vomiting Genitourinary: Negative Musculoskeletal: Denies arm numbness/tingling, Denies leg numbness/tingling, Denies limitation of motion, Denies muscle weakness Integumentary: Denies rash Neurological: Denies confusion, Denies seizures, Denies syncope Psychiatric: Denies anxiety, Denies depression Allergic/Immunologic: Patient has seasonal allergies and seasonal allergic rh initis Past Medical History Past Medical History: Heart Failure, COPD, CVA/TIA, Fibromyalgia, Hypertension, Pneumonia, Rheumatoid Arthritis (RA), Seizure Disorder, Syncope Additional Past Medical History / Comment(s): 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 IBS, cellulitis of the chin, CVA about 1 year ago(no residual) History of Any Multi-Drug Resistant Organisms: MRSA Date of last positivie culture/infection: 07/2016 MDRO Source:: [place] Past Surgical History: Appendectomy, Section, Cholecystectomy, Hysterectomy, Tubal Ligation Additional Past Surgical History / Comment(s): oral surgery . Pancreas biopsy May 2015. Past Anesthesia/Blood Transfusion Reactions: No Reported Reaction Past Psychological History: ADD/ADHD, Anxiety, Bipolar, Depression Additional Psychological History / Comment(s): Pt resides with her spouse and other family members. Pt states borderline personality disorder diagnosed around 2010. She has a cane and walker but does not normally use them. Occasional marijuana/edibles Smoking Status: Current every day smoker Past Alcohol Use History: None Reported Additional Past Alcohol Use History / Comment(s): Pt started smoking in 1983 and was a 3 ppd smoker but about 6 months ago cut down to 3 cigarettes a day. Patient does vape in between Past Drug Use History: Marijuana Additional Drug Use History / Comment(s): Says she occasionally has edible marijuana- a couple times within the last year. - Past Family History Father History Unknown: Yes Family Medical History: No Reported History Additional Family Medical History / Comment(s): Pt adopted Mother History Unknown: Yes Additional Family Medical History / Comment(s): Pt adopted Medications and Allergies Home Medications Medication Instructions Recorded Confirmed Type Spironolactone [Aldactone] 25 mg PO DAILY 02/05/17 04/22/24 History carvediloL [Coreg] 25 mg PO BID 03/26/21 04/22/24 History oxyCODONE-APAP 10-325MG [Percocet 1 tab PO TID 03/16/22 04/22/24 History 10-325 mg] Citalopram Hydrobromide [CeleXA] 60 mg PO DAILY 01/27/23 04/22/24 History Pantoprazole [Protonix] 40 mg PO DAILY 05/29/23 04/22/24 History Albuterol Inhaler [Ventolin Hfa 2 puff INHALATION RT-QID PRN 04/02/24 04/22/24 History Inhaler] Famotidine 20 mg PO BID 04/02/24 04/22/24 History Montelukast [Singulair] 10 mg PO HS PRN 04/02/24 04/22/24 History Rosuvastatin Calcium [Crestor] 5 mg PO DAILY 04/02/24 04/22/24 History Xanax(Unknown Dose) 1 tab PO DAILY PRN 04/02/24 04/22/24 History rOPINIRole HCL [Requip] 0.25 mg PO HS 04/02/24 04/22/24 History traZODone HCL [Desyrel] 50 mg PO HS 04/02/24 04/22/24 History Budesonide-Formot 160-4.5 Mcg 2 puff INHALATION RT-BID #1 each 04/06/24 04/22/24 Rx [Symbicort 160-4.5 Mcg Inhaler] Ipratropium-Albuterol Nebulize 3 ml INHALATION RT-Q4H #120 each 04/06/24 04/22/24 Rx [Duoneb 0.5 mg-3 mg/3 ml Soln] Losartan [Cozaar] 100 mg PO DAILY #30 tab 04/06/24 04/22/24 Rx Cephalexin [Keflex] 500 mg PO Q6HR #40 cap 04/15/24 04/22/24 Rx Lidocaine 4% Patch 1 patch TOPICAL DAILY PRN 04/22/24 04/22/24 History Nicotine 14Mg/24Hr Patch [Habitrol 1 patch TRANSDERM DAILY PRN 04/22/24 04/22/24 History 14Mg/24Hr Patch] Allergies Allergy/AdvReac Type Severity Reaction Status Date / Time adhesive Allergy Rash/Hives Verified 04/22/24 11:53 amoxicillin Allergy Anaphylaxis Verified 04/22/24 11:53 azithromycin [From Zithromax] Allergy Anaphylaxis Verified 04/22/24 11:53 cephalexin monohydrate Allergy Anaphylaxis Verified 04/22/24 11:53 [From Keflex] ciprofloxacin Allergy Anaphylaxis Verified 04/22/24 11:53 clindamycin Allergy Anaphylaxis Verified 04/22/24 11:53 Iodinated Contrast Media Allergy Anaphylaxis Verified 04/22/24 11:53 [Iodinated Contrast- Oral and IV Dye] ketorolac [From Toradol] Allergy Unknown Verified 04/22/24 11:53 levofloxacin [From Levaquin] Allergy Rash/Hives Verified 04/22/24 11:53 naproxen Allergy Anaphylaxis Verified 04/22/24 11:53 NSAIDS (Non-Steroidal Allergy Rash/Hives Verified 04/22/24 11:53 Anti-Inflamma orphenadrine [From Norflex] Allergy Anaphylaxis Verified 04/22/24 11:53 shellfish derived Allergy Anaphylaxis Verified 04/22/24 11:53 Sulfa (Sulfonamide Allergy Anaphylaxis Verified 04/22/24 11:53 Antibiotics) sulfamethoxazole Allergy Anaphylaxis Verified 04/22/24 11:53 [From Bactrim] tramadol Allergy Unknown Verified 04/22/24 11:53 trimethoprim [From Bactrim] Allergy Anaphylaxis Verified 04/22/24 11:53 Physical Exam Vitals: Vital Signs Temp Pulse Pulse Resp BP BP Pulse Ox 04/22/24 15:26 76 04/22/24 15:17 71 04/22/24 14:00 98.0 F 69 17 156/87 92 L 04/22/24 11:08 80 04/22/24 10:56 76 04/22/24 10:15 98 04/22/24 08:00 98.4 F 71 15 182/87 92 L 04/22/24 07:44 94 L 04/22/24 06:38 181/107 04/22/24 01:21 98.2 F 75 17 179/81 96 04/21/24 21:10 98.2 F 86 17 169/77 92 L 04/21/24 20:53 180/76 04/21/24 20:50 98.3 F 82 13 180/76 99 04/21/24 20:13 78 04/21/24 19:52 77 04/21/24 19:00 86 18 192/80 96 04/21/24 18:11 97.6 F 88 20 91 L Intake and Output 04/22/24 04/22/24 04/22/24 06:59 14:59 22:59 Other: # Voids 4 GENERAL EXAM: Alert, 48-year-old obese white female, comfortable in no apparent distress. HEAD: Normocephalic and atraumatic EYES: Normal reaction of pupils, equal size. NOSE: Clear with pink turbinates. THROAT: No erythema or exudates. NECK: No masses, no JVD. CHEST: No chest wall deformity. LUNGS: Diminished breath sound bilaterally minimal wheezing on forced expiratory maneuver only CVS: S1 and S2 normal with no audible murmur, regular rhythm. No extra heart sounds ABDOMEN: No hepatosplenomegaly, active bowel sounds, no guarding or rigidity. SKIN: No rashes CENTRAL NERVOUS SYSTEM: No focal deficits, tone is normal in all 4 extremities. EXTREMITIES: There is no peripheral edema, clubbing, or cyanosis. Peripheral pulses are intact. Results - Laboratory Findings CBC and BMP: 04/22/24 02:37 04/22/24 02:37 PT/INR, D-dimer PT 11.3 sec (10.0-12.5) 04/21/24 19:35 INR 1.0 (<1.2) 04/21/24 19:35 Abnormal lab findings: Abnormal Labs 04/21/24 04/21/24 04/22/24 19:35 19:35 02:37 MCHC 30.7 L MPV 8.9 L Lymphocytes # 0.36 L Monocytes # 0.04 L Eosinophils # 0 L Sodium 135 L Carbon Dioxide 35 H Creatinine 0.46 L BUN/Creatinine Ratio Glucose 118 H POC Glucose (mg/dL) Plasma Lactic Acid Srinivas 2.5 H* Magnesium 1.5 L Total Protein 6.0 L Urine Blood Urine Mucus 04/22/24 04/22/24 04/22/24 02:37 09:55 11:10 MCHC MPV Lymphocytes # Monocytes # Eosinophils # Sodium Carbon Dioxide 32.3 H Creatinine 0.4 L BUN/Creatinine Ratio 34.00 H Glucose 200 H POC Glucose (mg/dL) 145 H Plasma Lactic Acid Srinivas Magnesium Total Protein 6.1 L Urine Blood Trace H Urine Mucus Rare H - Diagnostic Findings Chest x-ray: image reviewed (As noted in HPI) Assessment and Plan Assessment: Impression Acute COPD exacerbation, chest x-ray showed no acute cardiopulmonary process. Acute bronchitis, no evidence of pneumonia Acute on chronic hypoxemic respiratory failure, secondary to above COPD, maintained on Symbicort and albuterol as needed and she has home 02 at 2 liters/min, and maintained on prednisone Chronic and ongoing tobacco dependence, down to 1-2 cigarettes every other day Hypertension History of hyperlipidemia Chronic pain and fibromyalgia History of anxiety/depression Dyslipidemia Restless leg syndrome Chronic depression Severe GERD Chronic diastolic congestive heart failure Recommendation: Continue present medications including doxycycline, Solu-Medrol, bronchodilators, Continue oxygen and titrate accordingly Resume home meds for all the problems as listed above Continue pantoprazole. Counseled regarding smoking cessation and patient has now a nicotine patch Consider discharge planning in the next 24 hours and follow-up with Dr. SKYLAR Su Time with Patient: Greater than 30
[2024-04-22 16:26] LABS: Glucose,Whole Blood 159 mg/dL (70-110)
[2024-04-22 19:03] LABS: Glucose,Whole Blood 165 mg/dL (70-110)
[2024-04-22] MEDS: traZODone HCL 50 MG TAB PO SCH (20:58)
[2024-04-23 06:27] LABS: Glucose,Whole Blood 167 mg/dL (70-110)
[2024-04-23] MEDS: ONDANSETRON 4 MG/2 ML VIAL IVP PRN (06:52)
[2024-04-23] MEDS: predniSONE 20 MG TAB PO SCH (08:35)
[2024-04-23] MEDS: ENOXAPARIN 40 MG/0.4 ML SYRINGE SQ SCH (08:35)
[2024-04-23 11:35] LABS: Glucose,Whole Blood 187 mg/dL (70-110)
--- NOTE | 2024-04-23 13:58 | P.CNPUL ---
History of Present Illness Consult date: 04/22/24 Requesting physician: Daren Nolen Reason for consult: COPD Chief complaint: Shortness of breath History of present illness: This is a 48-year-old female with past medical history significant for COPD, chronic oxygen dependence maintained on 2 L nasal cannula HS, chronic ongoing tobacco dependence, congestive heart failure, hypertension, CVA/TIA, rheumatoid arthritis, fibromyalgia. She has had recent frequent ER visits and admissions for her COPD exacerbations despite continuing to smoke. She was discharged from here on 04/06/2024. She returned to the emergency room again yesterday with c omplaints of increasing shortness of breath, cough and congestion. Chest x-ray reveals no acute pulmonary process. White count 8.0. Hemoglobin 12.3. Platelets 242. Sodium 139. Potassium 4.7. Bicarb 32. BUN 13. Creatinine 0.4. Glucose 200. She is seen today in consultation on the regular medical floor. She is resting comfortably in bed. Awake and alert in no acute distress. Maintaining O2 saturations in the high 90s on 2 L/min per nasal cannula. She has been initiated on DuoNeb inhalations, Symbicort, Solu-Medrol. NicoDerm patch in place. Empiric antibiotics in the form of Vibramycin. Lovenox for DVT prophylaxis. She is requiring morphine for her chronic pain issues Review of Systems REVIEW OF SYSTEMS: CONSTITUTIONAL: Denies any recent significant weight loss or weight gain. EYES: Denies change in vision. EARS, NOSE, MOUTH, THROAT: Denies headaches, denies sore throat. CARDIOVASCULAR: Denies chest pain, palpitations or syncopal episodes. RESPIRATORY: Positive for shortness of breath, cough, congestion no hemoptysis. GASTROINTESTINAL: Denies change in appetite, denies abdominal pain GENITOURINARY: Denies hematuria, denies infections. MUSKULOSKELETAL: Denies pain, denies swelling. INTEGUMENTARY: Denies rash, denies eczema. NEUROLOGICAL: Denies recent memory loss, no recent seizure activity. PSYCHIATRIC: Denies anxiety, denies depression. HEMATOLOGIC/LYMPHATIC: Denies anemia, denies enlarged lymph nodes. 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 IBS, cellulitis of the chin, CVA about 1 year ago(no residual) History of Any Multi-Drug Resistant Organisms: MRSA Date of last positivie culture/infection: 07/2016 MDRO Source:: [facility] Past Surgical History: Appendectomy, Section, Cholecystectomy, Hysterectomy, Tubal Ligation Additional Past Surgical History / Comment(s): oral surgery . Pancreas biopsy May 2015. Past Anesthesia/Blood Transfusion Reactions: No Reported Reaction Past Psychological History: ADD/ADHD, Anxiety, Bipolar, Depression Additional Psychological History / Comment(s): Pt resides with her spouse and other family members. Pt states borderline personality disorder diagnosed around 2010. She has a cane and walker but does not normally use them. Occasional marijuana/edibles Smoking Status: Current every day smoker Past Alcohol Use History: None Reported Additional Past Alcohol Use History / Comment(s): Pt started smoking in 1983 and was a 3 ppd smoker but about 6 months ago cut down to 3 cigarettes a day. Patient does vape in between Past Drug Use History: Marijuana Additional Drug Use History / Comment(s): Says she occasionally has edible marijuana- a couple times within the last year. - Past Family History Father History Unknown: Yes Family Medical History: No Reported History Additional Family Medical History / Comment(s): Pt adopted Mother History Unknown: Yes Additional Family Medical History / Comment(s): Pt adopted Medications and Allergies Home Medications Medication Instructions Recorded Confirmed Type Spironolactone [Aldactone] 25 mg PO DAILY 02/05/17 04/22/24 History carvediloL [Coreg] 25 mg PO BID 03/26/21 04/22/24 History oxyCODONE-APAP 10-325MG [Percocet 1 tab PO TID 03/16/22 04/22/24 History 10-325 mg] Citalopram Hydrobromide [CeleXA] 60 mg PO DAILY 01/27/23 04/22/24 History Pantoprazole [Protonix] 40 mg PO DAILY 05/29/23 04/22/24 History Albuterol Inhaler [Ventolin Hfa 2 puff INHALATION RT-QID PRN 04/02/24 04/22/24 History Inhaler] Famotidine 20 mg PO BID 04/02/24 04/22/24 History Montelukast [Singulair] 10 mg PO HS PRN 04/02/24 04/22/24 History Rosuvastatin Calcium [Crestor] 5 mg PO DAILY 04/02/24 04/22/24 History Xanax(Unknown Dose) 1 tab PO DAILY PRN 04/02/24 04/22/24 History rOPINIRole HCL [Requip] 0.25 mg PO HS 04/02/24 04/22/24 History traZODone HCL [Desyrel] 50 mg PO HS 04/02/24 04/22/24 History Budesonide-Formot 160-4.5 Mcg 2 puff INHALATION RT-BID #1 each 04/06/24 04/22/24 Rx [Symbicort 160-4.5 Mcg Inhaler] Ipratropium-Albuterol Nebulize 3 ml INHALATION RT-Q4H #120 each 04/06/24 04/22/24 Rx [Duoneb 0.5 mg-3 mg/3 ml Soln] Losartan [Cozaar] 100 mg PO DAILY #30 tab 04/06/24 04/22/24 Rx Cephalexin [Keflex] 500 mg PO Q6HR #40 cap 04/15/24 04/22/24 Rx Lidocaine 4% Patch 1 patch TOPICAL DAILY PRN 04/22/24 04/22/24 History Nicotine 14Mg/24Hr Patch [Habitrol 1 patch TRANSDERM DAILY PRN 04/22/24 04/22/24 History 14Mg/24Hr Patch] Allergies Allergy/AdvReac Type Severity Reaction Status Date / Time adhesive Allergy Rash/Hives Verified 04/22/24 11:53 amoxicillin Allergy Anaphylaxis Verified 04/22/24 11:53 azithromycin [From Zithromax] Allergy Anaphylaxis Verified 04/22/24 11:53 cephalexin monohydrate Allergy Anaphylaxis Verified 04/22/24 11:53 [From Keflex] ciprofloxacin Allergy Anaphylaxis Verified 04/22/24 11:53 clindamycin Allergy Anaphylaxis Verified 04/22/24 11:53 Iodinated Contrast Media Allergy Anaphylaxis Verified 04/22/24 11:53 [Iodinated Contrast- Oral and IV Dye] ketorolac [From Toradol] Allergy Unknown Verified 04/22/24 11:53 levofloxacin [From Levaquin] Allergy Rash/Hives Verified 04/22/24 11:53 naproxen Allergy Anaphylaxis Verified 04/22/24 11:53 NSAIDS (Non-Steroidal Allergy Rash/Hives Verified 04/22/24 11:53 Anti-Inflamma orphenadrine [From Norflex] Allergy Anaphylaxis Verified 04/22/24 11:53 shellfish derived Allergy Anaphylaxis Verified 04/22/24 11:53 Sulfa (Sulfonamide Allergy Anaphylaxis Verified 04/22/24 11:53 Antibiotics) sulfamethoxazole Allergy Anaphylaxis Verified 04/22/24 11:53 [From Bactrim] tramadol Allergy Unknown Verified 04/22/24 11:53 trimethoprim [From Bactrim] Allergy Anaphylaxis Verified 04/22/24 11:53 Physical Exam Vitals: Vital Signs Temp Pulse Pulse Resp BP BP Pulse Ox 04/22/24 11:08 80 04/22/24 10:56 76 04/22/24 10:15 98 04/22/24 08:00 98.4 F 71 15 182/87 92 L 04/22/24 07:44 94 L 04/22/24 06:38 181/107 04/22/24 01:21 98.2 F 75 17 179/81 96 04/21/24 21:10 98.2 F 86 17 169/77 92 L 04/21/24 20:53 180/76 04/21/24 20:50 98.3 F 82 13 180/76 99 04/21/24 20:13 78 04/21/24 19:52 77 04/21/24 19:00 86 18 192/80 96 04/21/24 18:11 97.6 F 88 20 91 L Intake and Output 04/21/24 04/22/24 04/22/24 22:59 06:59 14:59 Other: Voiding Method Toilet # Voids 4 Weight 85.729 kg GENERAL EXAM: Alert, 49-year-old female, on 2 L nasal cannula, comfortable in no apparent distress. HEAD: Normocephalic. EYES: Normal reaction of pupils, equal size. NOSE: Clear with pink turbinates. THROAT: No erythema or exudates. NECK: No masses, no JVD. CHEST: No chest wall deformity. LUNGS: Equal air entry with no crackles, wheeze, rhonchi or dullness. Diminished. CVS: S1 and S2 normal with no audible murmur, regular rhythm. ABDOMEN: No hepatosplenomegaly, normal bowel sounds, no guarding or rigidity. SPINE: No scoliosis or deformity SKIN: No rashes CENTRAL NERVOUS SYSTEM: No focal deficits, tone is normal in all 4 extremities. EXTREMITIES: There is no peripheral edema. No clubbing, no cyanosis. Peripheral pulses are intact. Results - Laboratory Findings CBC and BMP: 04/22/24 02:37 04/22/24 02:37 PT/INR, D-dimer PT 11.3 sec (10.0-12.5) 04/21/24 19:35 INR 1.0 (<1.2) 04/21/24 19:35 Abnormal lab findings: Abnormal Labs 04/21/24 04/21/24 04/22/24 19:35 19:35 02:37 MCHC 30.7 L MPV 8.9 L Lymphocytes # 0.36 L Monocytes # 0.04 L Eosinophils # 0 L Sodium 135 L Carbon Dioxide 35 H Creatinine 0.46 L BUN/Creatinine Ratio Glucose 118 H POC Glucose (mg/dL) Plasma Lactic Acid Srinivas 2.5 H* Magnesium 1.5 L Total Protein 6.0 L Urine Blood Urine Mucus 04/22/24 04/22/24 04/22/24 02:37 09:55 11:10 MCHC MPV Lymphocytes # Monocytes # Eosinophils # Sodium Carbon Dioxide 32.3 H Creatinine 0.4 L BUN/Creatinine Ratio 34.00 H Glucose 200 H POC Glucose (mg/dL) 145 H Plasma Lactic Acid Srinivas Magnesium Total Protein 6.1 L Urine Blood Trace H Urine Mucus Rare H - Diagnostic Findings Chest x-ray: image reviewed Assessment and Plan Assessment: Acute COPD exacerbation, chest x-ray showed no acute cardiopulmonary process. Viral screen negative. Acute on chronic hypoxemic respiratory failure, secondary to above Chronic and ongoing tobacco dependence COPD, maintained on Symbicort and albuterol and she has home 02 at 2 liters/min Hypertension Hyperlipidemia Chronic pain and fibromyalgia History of anxiety/depression Plan: The patient was seen and evaluated Chest x-ray, labs and medications reviewed Continue bronchodilators, steroids Empiric antibiotics for now Check a procalcitonin Again educated regarding the importance of smoking cessation NicoDerm patch has been offered COPD navigator consult for frequent readmissions We will continue to follow and make further recommendations based on her clinical status I have personally seen and examined the patient, performed the documentation and the assessment and plan as written. Number of minutes spent on the visit: 20.
--- NOTE | 2024-04-23 14:06 | P.PN ---
Subjective Progress Note Date: 04/23/24 This is a 48-year-old female with past medical history significant for COPD, chronic oxygen dependence maintained on 2 L nasal cannula HS, chronic ongoing tobacco dependence, congestive heart failure, hypertension, CVA/TIA, rheumatoid arthritis, fibromyalgia. She has had recent frequent ER visits and admissions for her COPD exacerbations despite continuing to smoke. She was discharged from here on 04/06/2024. She returned to the emergency room again yesterday with complaints of increasing shortness of breath, cough and congestion. Chest x-ray reveals no acute pulmonary process. White count 8.0. Hemoglobin 12.3. Platelets 242. Sodium 139. Potassium 4.7. Bicarb 32. BUN 13. Creatinine 0.4. Glucose 200. She is seen today in consultation on the regular medical floor. She is resting comfortably in bed. Awake and alert in no acute distress. Maintaining O2 saturations in the high 90s on 2 L/min per nasal cannula. She has been initiated on DuoNeb inhalations, Symbicort, Solu-Medrol. NicoDerm patch in place. Empiric antibiotics in the form of Vibramycin. Lovenox for DVT prophylaxis. She is requiring morphine for her chronic pain issues The patient is seen today April 23, 2024 in follow-up on the regular medical floor. She is currently resting comfortably in bed. Awake and alert in no acute distress. Maintaining O2 saturations in the 90s on 2 L/min per nasal cannula. Procalcitonin 0.02. Glucose 167. She is continued on DuoNeb inhalations, Symbicort, Singulair, Solu-Medrol. NicoDerm patch in place. Lovenox for DVT prophylaxis. Empiric antibiotics in the form of doxycycline. Objective - Vital Signs Vital signs: Vital Signs Temp 98 F 04/23/24 07:05 Pulse 78 04/23/24 12:02 Resp 18 04/23/24 07:05 BP 155/88 04/23/24 07:05 Pulse Ox 93 L 04/23/24 07:05 FiO2 Intake & Output 04/22/24 04/23/24 04/23/24 18:59 06:59 18:59 Other: Voiding Method Toilet Toilet # Voids 5 6 - Exam GENERAL EXAM: Alert, 49-year-old female, resting in bed, on 2 L nasal cannula, comfortable in no apparent distress. HEAD: Normocephalic. EYES: Normal reaction of pupils, equal size. NOSE: Clear with pink turbinates. THROAT: No erythema or exudates. NECK: No masses, no JVD. CHEST: No chest wall deformity. LUNGS: Equal air entry with no crackles, wheeze, rhonchi or dullness. Diminished. CVS: S1 and S2 normal with no audible murmur, regular rhythm. ABDOMEN: No hepatosplenomegaly, normal bowel sounds, no guarding or rigidity. SPINE: No scoliosis or deformity SKIN: No rashes CENTRAL NERVOUS SYSTEM: No focal deficits, tone is normal in all 4 extremities. EXTREMITIES: There is no peripheral edema. No clubbing, no cyanosis. Perip heral pulses are intact. - Labs CBC & Chem 7: 04/22/24 02:37 04/22/24 02:37 Labs: Abnormal Lab Results - Last 24 Hours (Table) 04/22/24 04/22/24 04/23/24 Range/Units 16:25 19:02 06:25 POC Glucose (mg/dL) 159 H 165 H 167 H (70-110) mg/dL 04/23/24 Range/Units 11:33 POC Glucose (mg/dL) 187 H (70-110) mg/dL Assessment and Plan Assessment: Acute COPD exacerbation, chest x-ray showed no acute cardiopulmonary process. Viral screen negative. Procalcitonin negative Acute on chronic hypoxemic respiratory failure, secondary to above Chronic and ongoing tobacco dependence COPD, maintained on Symbicort and albuterol and she has home 02 at 2 liters/min Hypertension Hyperlipidemia Chronic pain and fibromyalgia History of anxiety/depression Plan: The patient was seen and evaluated Labs and medications reviewed Continue bronchodilators, steroids She has home oxygen in place I have personally seen and examined the patient, performed the documentation and the assessment and plan as written. Number of minutes spent on the visit: 10.
[2024-04-23] MEDS: MONTELUKAST 10 MG TAB PO PRN (14:38)
[2024-04-23 16:50] LABS: Glucose,Whole Blood 199 mg/dL (70-110)
--- NOTE | 2024-04-23 17:02 | XR ---
EXAMINATION TYPE: XR chest 2V DATE OF EXAM: 04/23/2024 4:41 PM CLINICAL INDICATION: Female, 49 years old with history of Pneumonia; [facility] COMPARISON: Chest radiographs from 04/21/2024 TECHNIQUE: XR chest 2V Frontal view of the chest. FINDINGS: Lungs/Pleura: Blunting of the left costophrenic angle. Flattening of the diaphragms. There is no evid ence of right pleural effusion, focal consolidation, or pneumothorax. Pulmonary vascularity: Unremarkable. Heart/mediastinum: Cardiomediastinal silhouette is unremarkable. Musculoskeletal: No acute osseous pathology. IMPRESSION: 1. No definitive airspace disease identified. 2. Left basilar atelectasis and/or small pleural effusion. 3. COPD. [facility], Workstation: [id number], 04/23/2024 4:59 PM
[2024-04-23 20:11] LABS: Glucose,Whole Blood 182 mg/dL (70-110)
[2024-04-24 03:12] VITALS: TEMP 98
[2024-04-24 05:31] LABS: Glucose,Whole Blood 151 mg/dL (70-110)
--- NOTE | 2024-04-24 06:15 | P.PN ---
Subjective Progress Note Date: 04/23/24 HISTORY OF PRESENT ILLNESS: 49-year-old with active medical history of severe advanced COPD oxygen dependent, chronic diastolic congestive heart failure, previous history of CVA/TIA, history of rheumatoid arthritis, fibromyalgia, hypertension, hyperlipidemia, chronic nicotine dependency, history of recurrent abdominal pain with history of IBS, previous history of MRSA, history of seizure activity with no seizure last few month. Patient seen Dr. Guevara primary care physician and has Dr. SKYLAR Su primary pulmonary which she sees when she is admitted to [facility] but has been repeatedly coming back to [facility] has been seen Dr. Hooper/Asa lately. She has been in and out of the hospital many times and multiple visit to the emergency department with COPD exacerbation chronic smoker and occasional compliant to medication has been a problem. She was hospitalized last time less than a month ago with acute respiratory failure along with COPD exacerbation treated manage and sent home to see her primary care and probably her pulmonary as an outpatient. Return to the emergency department on 04/21/2024 with acute respiratory failure with severe hypoxia tightness and wheezy she called 911 EMS brought her to the emergency department continue and increase her oxygen up to 5 L after few rounds of updraft treatment and loading her with steroid her symptoms settle down slightly only but continue to be quite with respiratory failure continue to have significant wheezing. Chest x-ray did not show any infiltrate, EKG continued to show sinus rhythm with pulse of 84 beats per minutes.Through the last hospitalization she never had any positive culture with exception of normal aroldo. The patient apparently seen Dr. SKYLAR Su has an outpatient and she claimed had seen him after her discharge last time with making follow-up appointment has not been easy but has not been seen since. Addressing with patient again nicotine dependency and compliant to medication was done she claims she has not smoked since last time and has been using her oxygen on more regular basis and updraft treatment regularly. Her lab value in the emergency department showed normal CBC and CMP with exception of low magnesium and lactic acid 2.5. Activation for sepsis protocol patient was placed on IV fluid of 0.9 at 150 cc an hour. No sign of infection chest x-ray is clear currently urine sample was not done yet. Blood culture should be done. With her lactic acid being elevated decide to keep patient on at least doxycycline to cover for bronchitis till we are clear with lactic acid and the possibility of sepsis. 04/22/2024: Was hospitalized late last night, lactic acid was quite bit high with covering for the septic protocol with IV hydration at 150 cc an hour, no finding consistent with any positive culture so far continue search sputum and urine at this point chest x-ray does not show any infiltrate more than bronchitis and patient be kept on doxycycline for now. Will be seen pulmonary today continue advance medical management, continue smoking cessation continue better regime of clearing patient for atelectasis by having an aggressive incentive spirometry an d updraft treatment. Continue oxygen titration try to keep pulse ox above 90 but try not to keep her on higher than 3 L O2 if possible. 04/23/2024: Her dyspnea and shortness of breath has improved some continue on aggressive management with updraft treatment along with steroid still require O2 higher than 3 L to keep her pulse ox above 90 percentile. Patient will have another chest x-ray today, blood sugar has been running in the low 100 with a Solu-Medrol no change so far. Her mobility still significantly decreased with rest with titrate physical therapy and prepare hopefully for home as early as possible. Patient still having quite with wheezing and tightness with stiffer lung than expected not loose. Remain on doxycycline single antibiotic beside her current aggressive treatment for COPD exacerbation. Possibility of home probably in the next 24 to 48 hours is very high at this point. REVIEW OF SYSTEMS: CONSTITUTIONAL: Well-developed mild respiratory distress EYES: No icterus sclerae, no conjunctivitis. EARS, NOSE, MOUTH, THROAT, and FACE: No sore throat, lymphadenopathy, carotid bruits or deformity. RESPIRATORY: Positive shortness of breath cough and wheezes CARDIOVASCULAR: No CP, Palpitation, PND, Orthopnea, or angina. Mild tachycardia GASTROINTESTINAL: No Abd pain, Nausea or vomiting, no Diarrhea or constipation, No GI Bleed, no distention or masses. GENITOURINARY: Negative for Hematuria or UTI, no kidney stones. INTEGUMENT/BREAST: Negative for any muscular injury with mild osteoarthritis.. HEMATOLOGIC/LYMPHATIC: Negative for bleed or purpura. MUSCULOSKELTAL: Negative for Myalgia or arthralgia. NEURLOGICAL: No LOC, Sz or syncope, blurred vision dizziness or abnormality.. BEHAVIORAL/PSYCH: Negative. ENDOCRINE: Negative. PHYSICAL EXAMINATION: General Appearance: Alert, cooperative, still in mild distress. Neck HEENT: Supple, no lymphadenopathy, no thyroid enlargement, no carotid b ruits. Lungs: Decreased breath sound bilaterally with fine rhonchi positive mild expiratory wheezes. Chest Wall: Decreased expansion with deep inspiration no tenderness and no deformity was found on exam, no costochondral pain or discomfort. Heart: Regular rate and rhythm, S1, S2 normal, no murmur, rub or gallop. Back: Symmetric, no curvature, ROM normal, no CVA tenderness. Abdomen: Soft, non-tender, bowel sounds active all four quadrants, no masses, no organomegaly. Extremities: Extremities normal, atraumatic, no cyanosis or edema. Pulses: 2+ and symmetric. Skin: Skin color, texture, tugor normal, no rashes or lesions. Neurologic: Alert oriented x3 cranial nerves II through XII intact, no motor deficit, no abnormal balance or gait. ASSESSMENT AND PLAN: _Acute respiratory failure secondary to COPD exacerbation with probable bronchitis, slightly better still on aggressive management with Solu-Medrol and updraft treatment. _Possible acute bronchitis: Will continue doxycycline 100 mg twice a day, lactic acid was elevated continue IV hydration with 0.9 normal saline at 150 cc an hour repeat lactic acid in the next few hours. In the meanwhile continue doxyc ycline. _Advanced COPD with COPD exacerbation: Patient remains on higher dose of steroid orally along with updraft treatment [id number] and steroid her problem is still continued smoking and probably compliant to medication and time of distention. _Chronic history of nicotine dependency: Start patient back on nicotine patch. Still helping patient with counseling for quit smoking completely. _Chronic diastolic congestive heart failure her echocardiogram is up-to-date will continue losartan, spironolactone Coreg and furosemide. _Hypertension: Blood pressure systolic still below 130 on current medication remain on Coreg 25 mg twice a day, losartan 50 mg daily and spironolactone 25 mg a day. _Hyperlipidemia: Will continue patient on atorvastatin 10 mg daily. _Restless leg syndrome: Continue ropinirole 0.25 mg at bedtime. _Chronic pain syndrome: Secondary to degenerative disc disease has been on oxycodone 10 mg 3 times a day as needed. _Chronic depression: Remain on trazodone 50 mg a day along with citalopram 60 mg daily still using alprazolam 0.25 mg up to 3 times a day as needed. _Severe GERD/GI prophylaxis: Switch patient from Pepcid to pantoprazole 40 mg daily. Debility: Titrate physical therapy with slight help at this point the patient might require home care she refused to consider any help in subacute rehab she is usually the care provider for her who is an PT of both lower extremity and up in the hospital late yesterday. Discussion: Continue aggressive management and hopefully home in the next 24 hours. Objective - Vital Signs Vital signs: Vital Signs Temp 97.4 F L 04/23/24 01:06 Pulse 78 04/23/24 04:25 Resp 14 04/23/24 01:06 BP 163/77 04/23/24 01:06 Pulse Ox 95 04/23/24 01:06 FiO2 Intake & Output 04/22/24 04/22/24 04/23/24 06:59 18:59 06:59 Weight 85.729 kg Other: Voiding Method Toilet Toilet # Voids 4 5 - Labs CBC & Chem 7: 04/22/24 02:37 04/22/24 02:37 Labs: Abnormal Lab Results - Last 24 Hours (Table) 04/22/24 04/22/24 04/22/24 Range/Units 02:37 02:37 09:55 MCHC 30.7 L (32.0-37.0) g/dL MPV 8.9 L (9.5-12.2) FL Lymphocytes # 0.36 L (0.90-5.00) X 10*3/uL Monocytes # 0.04 L (0.20-1.00) X 10*3/uL Eosinophils # 0 L (0.04-0.35) X 10*3/uL Carbon Dioxide 32.3 H (21.6-31.8) mmol/L Creatinine 0.4 L (0.6-1.5) mg/dL BUN/Creatinine Ratio 34.00 H (12.00-20.00) Ratio Glucose 200 H (70-110) mg/dL POC Glucose (mg/dL) (70-110) mg/dL Total Protein 6.1 L (6.2-8.2) g/dL Urine Blood Trace H (Negative) Urine Mucus Rare H (None) /hpf 04/22/24 04/22/24 04/22/24 Range/Units 11:10 16:25 19:02 MCHC (32.0-37.0) g/dL MPV (9.5-12.2) FL Lymphocytes # (0.90-5.00) X 10*3/uL Monocytes # (0.20-1.00) X 10*3/uL Eosinophils # (0.04-0.35) X 10*3/uL Carbon Dioxide (21.6-31.8) mmol/L Creatinine (0.6-1.5) mg/dL BUN/Creatinine Ratio (12.00-20.00) Ratio Glucose (70-110) mg/dL POC Glucose (mg/dL) 145 H 159 H 165 H (70-110) mg/dL Total Protein (6.2-8.2) g/dL Urine Blood (Negative) Urine Mucus (None) /hpf
[2024-04-24 07:43] VITALS: BP 133/65; RESP 16
[2024-04-24 08:43] VITALS: PULSE 60
[2024-04-24 11:44] LABS: Glucose,Whole Blood 208 mg/dL (70-110)
--- NOTE | 2024-04-24 14:03 | P.PN ---
Subjective Progress Note Date: 04/24/24 This is a 48-year-old female with past medical history significant for COPD, chronic oxygen dependence maintained on 2 L nasal cannula HS, chronic ongoing tobacco dependence, congestive heart failure, hypertension, CVA/TIA, rheumatoid arthritis, fibromyalgia. She has had recent frequent ER visits and admissions for her COPD exacerbations despite continuing to smoke. She was discharged from here on 04/06/2024. She returned to the emergency room again yesterday with complaints of increasing shortness of breath, cough and congestion. Chest x-ray reveals no acute pulmonary process. White count 8.0. Hemoglobin 12.3. Platelets 242. Sodium 139. Potassium 4.7. Bicarb 32. BUN 13. Creatinine 0.4. Glucose 200. She is seen today in consultation on the regular medical floor. She is resting comfortably in bed. Awake and alert in no acute distress. Maintaining O2 saturations in the high 90s on 2 L/min per nasal cannula. She has been initiated on DuoNeb inhalations, Symbicort, Solu-Medrol. NicoDerm patch in place. Empiric antibiotics in the form of Vibramycin. Lovenox for DVT prophylaxis. She is requiring morphine for her chronic pain issues The patient is seen today April 23, 2024 in follow-up on the regular medical floor. She is currently resting comfortably in bed. Awake and alert in no acute distress. Maintaining O2 saturations in the 90s on 2 L/min per nasal cannula. Procalcitonin 0.02. Glucose 167. She is continued on DuoNeb inhalations, Symbicort, Singulair, Solu-Medrol. NicoDerm patch in place. Lovenox for DVT prophylaxis. Empiric antibiotics in the form of doxycycline. The patient is seen today April 24, 2024 in follow-up on the regular medical floor. She is awake and alert in no acute distress. Resting comfortably in bed. Maintaining good O2 saturations in the 90s on 2 L/min per nasal cannula. No worsening shortness of breath, cough or congestion. She is continued on DuoNeb inhalations, Symbicort, Singulair, Solu-Medrol. NicoDerm patch in place. Lovenox for DVT prophylaxis. Empiric antibiotics in the form of doxycycline. Glucose 208. Objective - Vital Signs Vital signs: Vital Signs Temp 98 F 04/24/24 07:08 Pulse 60 04/24/24 08:52 Resp 16 04/24/24 07:08 BP 133/65 04/24/24 07:08 Pulse Ox 97 04/24/24 07:08 FiO2 Intake & Output 04/23/24 04/24/24 04/24/24 18:59 06:59 18:59 Other: Voiding Method Toilet Toilet # Voids 4 2 - Exam GENERAL EXAM: Alert, pleasant 49-year-old female, on 2 L nasal cannula, comfortable in no apparent distress. HEAD: Normocephalic. EYES: Normal reaction of pupils, equal size. NOSE: Clear with pink turbinates. THROAT: No erythema or exudates. NECK: No masses, no JVD. CHEST: No chest wall deformity. LUNGS: Equal air entry with no crackles, wheeze, rhonchi or dullness. Diminished. CVS: S1 and S2 normal with no audible murmur, regular rhythm. ABDOMEN: No hepatosplenomegaly, normal bowel sounds, no guarding or rigidity. SPINE: No scoliosis or deformity SKIN: No rashes CENTRAL NERVOUS SYSTEM: No focal deficits, tone is normal in all 4 extremities. EXTREMITIES: There is no peripheral edema. No clubbing, no cyanosis. Peripheral pulses are intact. - Labs CBC & Chem 7: 04/22/24 02:37 04/22/24 02:37 Labs: Abnormal Lab Results - Last 24 Hours (Table) 04/23/24 04/23/24 04/23/24 Range/Units 16:49 19:33 20:09 POC Glucose (mg/dL) 199 H 182 H (70-110) mg/dL Creatine Kinase 22 L (30-135) U/L 04/24/24 04/24/24 Range/Units 05:29 11:42 POC Glucose (mg/dL) 151 H 208 H (70-110) mg/dL Creatine Kinase (30-135) U/L Assessment and Plan Assessment: Acute COPD exacerbation, chest x-ray showed no acute cardiopulmonary process. Viral screen negative. Procalcitonin negative Acute on chronic hypoxemic respiratory failure, secondary to above Chronic and ongoing tobacco dependence COPD, maintained on Symbicort and albuterol and she has home 02 at 2 liters/min Hypertension Hyperlipidemia Chronic pain and fibromyalgia History of anxiety/depression Plan: The patient was seen and evaluated Mdications reviewed Continue bronchodilators, steroids She has home oxygen in place Cleared for discharge from pulmonary Follow-up with her body designer in 1 week I have personally seen and examined the patient, performed the documentation and the assessment and plan as written. Number of minutes spent on the visit: 10.
--- NOTE | 2024-04-25 23:26 | P.DS ---
Providers Date of admission: 04/21/24 20:33 Attending physician: Daren Nolen Consults: 04/21/24 20:32 Consult Physician Routine Consulting Provider: Deyanira Hooper Consult Reason/Comments: copd Do you want consulting provider notified?: Yes Primary care physician: Kemi Guevara [facility] Course: She has been in and out of the hospital many times and multiple visit to the emergency department with COPD exacerbation chronic smoker and occasional compliant to medication has been a problem. She was hospitalized last time less than a month ago with acute respiratory failure along with COPD exacerbation ilene ated manage and sent home to see her primary care and probably her pulmonary as an outpatient. Return to the emergency department on 04/21/2024 with acute respiratory failure with severe hypoxia tightness and wheezy she called 911 EMS brought her to the emergency department continue and increase her oxygen up to 5 L after few rounds of updraft treatment and loading her with steroid her symptoms settle down slightly only but continue to be quite with respiratory failure continue to have significant wheezing. Chest x-ray did not show any infiltrate, EKG continued to show sinus rhythm with pulse of 84 beats per minutes.Through the last hospitalization she never had any positive culture with exception of normal aroldo. The patient apparently seen Dr. SKYLAR Su has an outpatient and she claimed had seen him after her discharge last time with making follow-up appointment has not been easy but has not been seen since. Addressing with patient again nicotine dependency and compliant to medication was done she claims she has not smoked since last time and has been using her oxygen on more regular basis and updraft treatment regularly. Her lab value in the emergency department showed normal CBC and CMP with exception of low magnesium and lactic acid 2.5. Activation for sepsis protocol patient was placed on IV fluid of 0.9 at 150 cc an hour. No sign of infection chest x-ray is clear currently urine sample was not done yet. Blood culture should be done. With her lactic acid being elevated decide to keep patient on at least doxycycline to cover for bronchitis till we are clear with lactic acid and the possibility of sepsis. 04/22/2024: Was hospitalized late last night, lactic acid was quite bit high with covering for the septic protocol with IV hydration at 150 cc an hour, no finding consistent with any positive culture so far continue search sputum and urine at this point chest x-ray does not show any infiltrate more than bronchitis and patient be kept on doxycycline for now. Will be seen pulmonary today continue advance medical management, continue smoking cessation continue better regime of clearing patient for atelectasis by having an aggressive incentive spirometry and updraft treatment. Continue oxygen titration try to keep pulse ox above 90 but try not to keep her on higher than 3 L O2 if possible. 04/23/2024: Her dyspnea and shortness of breath has improved some continue on aggressive management with updraft treatment along with steroid still require O2 higher than 3 L to keep her pulse ox above 90 percentile. Patient will have another chest x-ray today, blood sugar has been running in the low 100 with a Solu-Medrol no change so far. Her mobility still significantly decreased with rest with titrate physical therapy and prepare hopefully for home as early as possible. Patient still having quite with wheezing and tightness with stiffer lung than expected not loose. Remain on doxycycline single antibiotic beside her current aggressive treatment for COPD exacerbation. Possibility of home probably in the next 24 to 48 hours is very high at this point. 04/24/2024: Patient had more complaint of chest pain last night but having repeat EKG and back negative also with CK and troponin came back normal and later on called the nurse thinking she might be having seizure had no loss of consciousness or any tonic-clonic activity the patient is having little bit more anxiety and panic attacks. Her overall pulmonary status with current infection has improved remain on O2 pulse ox is running 95% while in 2 L with her pulse rate is down in the 60s and 70s but overall doing well. Blood sugar still running in the 100 level with slight adjustment medication. Order an EEG for patient which will be performed today as a precaution to make sure across all the T at this point. She is remain complaining of slightly pain she is back on her home meds with Percocet was for sure. Time on a smaller dose of morphine IV which was taking away from her yesterday morning but patient is not suffering from any acute problem require any IV pain meds at this point. Another factor might have bearing effect and was going on back patient's was admitted within the last 48 hours and he will be in the hospital longer so not quite sure if patient still not able to manage by herself at home. REVIEW OF SYSTEMS: CONSTITUTIONAL: Well-developed mild respiratory distress EYES: No icterus sclerae, no conjunctivitis. EARS, NOSE, MOUTH, THROAT, and FACE: No sore throat, lymphadenopathy, carotid bruits or deformity. RESPIRATORY: Positive shortness of breath cough and wheezes CARDIOVASCULAR: No CP, Palpitation, PND, Orthopnea, or angina. Mild tachycardia GASTROINTESTINAL: No Abd pain, Nausea or vomiting, no Diarrhea or constipation, No GI Bleed, no distention or masses. GENITOURINARY: Negative for Hematuria or UTI, no kidney stones. INTEGUMENT/BREAST: Negative for any muscular injury with mild osteoarthritis.. HEMATOLOGIC/LYMPHATIC: Negative for bleed or purpura. MUSCULOSKELTAL: Negative for Myalgia or arthralgia. NEURLOGICAL: No LOC, Sz or syncope, blurred vision dizziness or abnormality.. BEHAVIORAL/PSYCH: Negative. ENDOCRINE: Negative. PHYSICAL EXAMINATION: General Appearance: Alert, cooperative, still in mild distress. Neck HEENT: Supple, no lymphadenopathy, no thyroid enlargement, no carotid bruits. Lungs: Decreased breath sound bilaterally with fine rhonchi positive mild expiratory wheezes. Chest Wall: Decreased expansion with deep inspiration no tenderness and no deformity was found on exam, no costochondral pain or discomfort. Heart: Regular rate and rhythm, S1, S2 normal, no murmur, rub or gallop. Back: Symmetric, no curvature, ROM normal, no CVA tenderness. Abdomen: Soft, non-tender, bowel sounds active all four quadrants, no masses, no organomegaly. Extremities: Extremities normal, atraumatic, no cyanosis or edema. Pulses: 2+ and symmetric. Skin: Skin color, texture, tugor normal, no rashes or lesions. Neurologic: Alert oriented x3 cranial nerves II through XII intact, no motor deficit, no abnormal balance or gait. ASSESSMENT AND PLAN: _Acute respiratory failure secondary to COPD exacerbation with probable bronchitis, slightly better still on aggressive management with Solu-Medrol and updraft treatment. _Possible acute bronchitis: Will continue doxycycline 100 mg twice a day, lactic acid was elevated continue IV hydration with 0.9 normal saline at 150 cc an hour repeat lactic acid in the next few hours. In the meanwhile continue doxycycline. _Atypical chest pain: EKG and troponin were negative for SC. _? Procedure: Not witnessed not seen anything abnormal the patient will be going for an EEG today. _Advanced COPD with COPD exacerbation: Patient remains on higher dose of steroid orally along with updraft treatment [id number] and steroid her problem is still continued smoking and probably compliant to medication and time of distention. _Chronic history of nicotine dependency: Start patient back on nicotine patch. Still helping patient with counseling for quit smoking completely. _Chronic diastolic congestive heart failure her echocardiogram is up-to-date will continue losartan, spironolactone Coreg and furosemide. _Hypertension: Blood pressure systolic still below 130 on current medication remain on Coreg 25 mg twice a day, losartan 50 mg daily and spironolactone 25 mg a day. _Hyperlipidemia: Will continue patient on atorvastatin 10 mg daily. _Restless leg syndrome: Continue ropinirole 0.25 mg at bedtime. _Chronic pain syndrome: Secondary to degenerative disc disease has been on oxycodone 10 mg 3 times a day as needed. _Chronic depression: Remain on trazodone 50 mg a day along with citalopram 60 mg daily still using alprazolam 0.25 mg up to 3 times a day as needed. _Severe GERD/GI prophylaxis: Switch patient from Pepcid to pantoprazole 40 mg daily. Debility: Again finalize testing continue physical therapy will try to have patient discharged hopefully in the next 24 hours. Discussion: Patient is doing very well stable and will agree to discharge home today will arrange for home care as well. Hospital course: She was admitted to the hospital on 04/21/2024 with severe dyspnea and shortness of breath has become quite hypoxic despite having to use O2 and updraft treatment for around could not brief her oxygen was put up to 5 L 911 was called EMS brought her to the emergency department were seen and evaluated chest x-ray did not show any significant infiltrate no heart failure was found patient pulse was steady and stable at 70 to 80 bpm sputum for Gram stain and culture was done patient apparently still smoking few cigarettes a day despite advanced lung disease. Her lactic acid is mildly elevated and was kept on bronchitis management and treatment initially no sign of pneumonia was started on doxycycline and kept on it for the time. Patient was seen by infectious disease with early sign of sepsis her hydration was 130 cc an hour for the first 2 days, lactic acid came down and white blood cell improved significantly. Repeat chest x-ray continue to fail showing any pneumonia but mild bronchitis. Patient was kept on oxygen at least 3 L to keep her pulse ox above 92 percentile. Mobility still significantly decreased patient does not move much. Able to help her self to use the bathroom and to take a shower with minimal supervision. On 04/23/2020 4 at night developed to have significant chest pain CK troponin and EKG failed to show any abnormality. The patient also continued to have mild pleurisy and pleuritic pain mostly in the right side was treated and being on prednisone had helped significantly. Patient was stabilized and ready to be discharged home on 04/24/2024. Time spent on patient discharge was over 35 minutes. Patient Condition at Discharge: Fair Plan - Discharge Summary Discharge Rx Participant: No New Discharge Prescriptions: New predniSONE 10 mg PO DIRECTED #35 tab Doxycycline [Vibramycin] 100 mg PO BID #10 cap Nicotine 14Mg/24Hr Patch [Habitrol] 1 patch TRANSDERM DAILY #30 patch Continue Spironolactone [Aldactone] 25 mg PO DAILY carvediloL [Coreg] 25 mg PO BID Citalopram Hydrobromide [CeleXA] 60 mg PO DAILY Pantoprazole [Protonix] 40 mg PO DAILY Albuterol Inhaler [Ventolin Hfa Inhaler] 2 puff INHALATION RT-QID PRN PRN Reason: Shortness Of Breath Rosuvastatin Calcium [Crestor] 5 mg PO DAILY Montelukast [Singulair] 10 mg PO HS PRN PRN Reason: Allergy Symptoms Xanax(Unknown Dose) 1 tab PO DAILY PRN PRN Reason: Anxiety Ipratropium-Albuterol Nebulize [Duoneb 0.5 mg-3 mg/3 ml Soln] 3 ml INHALATION RT-Q4H #120 each Budesonide-Formot 160-4.5 Mcg [Symbicort 160-4.5 Mcg Inhaler] 2 puff INHALATION RT-BID #1 each Nicotine 14Mg/24Hr Patch [Habitrol] 1 patch TRANSDERM DAILY PRN PRN Reason: Nicotine Cravings Lidocaine 4% Patch 1 patch TOPICAL DAILY PRN PRN Reason: Pain oxyCODONE-APAP 10-325MG [Percocet 10-325 mg] 1 tab PO TID rOPINIRole HCL [Requip] 0.25 mg PO HS Famotidine 20 mg PO BID traZODone HCL [Desyrel] 50 mg PO HS Losartan [Cozaar] 100 mg PO DAILY #30 tab Discontinued Cephalexin [Keflex] 500 mg PO Q6HR #40 cap Discharge Medication List Spironolactone [Aldactone] 25 mg PO DAILY 07/22/17 [History] carvediloL [Coreg] 25 mg PO BID 03/26/21 [History] oxyCODONE-APAP 10-325MG [Percocet 10-325 mg] 1 tab PO TID 03/16/22 [History] Citalopram Hydrobromide [CeleXA] 60 mg PO DAILY 01/27/23 [History] Pantoprazole [Protonix] 40 mg PO DAILY 05/29/23 [History] Albuterol Inhaler [Ventolin Hfa Inhaler] 2 puff INHALATION RT-QID PRN 04/02/24 [History] Famotidine 20 mg PO BID 04/02/24 [History] Montelukast [Singulair] 10 mg PO HS PRN 04/02/24 [History] Rosuvastatin Calcium [Crestor] 5 mg PO DAILY 04/02/24 [History] Xanax(Unknown Dose) 1 tab PO DAILY PRN 04/02/24 [History] rOPINIRole HCL [Requip] 0.25 mg PO HS 04/02/24 [History] traZODone HCL [Desyrel] 50 mg PO HS 04/02/24 [History] Budesonide-Formot 160-4.5 Mcg [Symbicort 160-4.5 Mcg Inhaler] 2 puff INHALATION RT-BID #1 each 04/06/24 [Rx] Ipratropium-Albuterol Nebulize [Duoneb 0.5 mg-3 mg/3 ml Soln] 3 ml INHALATION RT-Q4H #120 each 04/06/24 [Rx] Losartan [Cozaar] 100 mg PO DAILY #30 tab 04/06/24 [Rx] Lidocaine 4% Patch 1 patch TOPICAL DAILY PRN 04/22/24 [History] Nicotine 14Mg/24Hr Patch [Habitrol] 1 patch TRANSDERM DAILY PRN 04/22/24 [History] Doxycycline [Vibramycin] 100 mg PO BID #10 cap 04/24/24 [Rx] Nicotine 14Mg/24Hr Patch [Habitrol] 1 patch TRANSDERM DAILY #30 patch 04/24/24 [Rx] predniSONE 10 mg PO DIRECTED #35 tab 04/24/24 [Rx] Follow up Appointment(s)/Referral(s): Kemi Guevara MD [Primary Care Provider] - 1-2 days (office closed at time of discharge) Patient Instructions/Handouts: COPD (Chronic Obstructive Pulmonary Disease) (DC) Discharge Disposition: HOME WITH HOME HEALTH SERVICES
== END 2024-04-24 14:05 | disposition home health service (06) ==
LOC: EC 18:05 → 4SSUR 20:33
PROVIDERS: ADMIT Internal Medicine Geriatric Medicine; ATTEND Internal Medicine Geriatric Medicine
DX: J44.1 Chronic obstructive pulmonary disease with (acute) exacerbation (principal); J96.21 Acute and chronic respiratory failure with hypoxia; J96.01 Acute respiratory failure with hypoxia; E78.5 Hyperlipidemia, unspecified; F17.210 Nicotine dependence, cigarettes, uncomplicated; F31.9 Bipolar disorder, unspecified; F41.0 Panic disorder [episodic paroxysmal anxiety]; F90.9 Attention-deficit hyperactivity disorder, unspecified type; G25.81 Restless legs syndrome; G89.4 Chronic pain syndrome; I11.0 Hypertensive heart disease with heart failure; I50.32 Chronic diastolic (congestive) heart failure; M06.9 Rheumatoid arthritis, unspecified; Z79.51 Long term (current) use of inhaled steroids; K21.9 Gastro-esophageal reflux disease without esophagitis; Z79.899 Other long term (current) drug therapy; Z79.52 Long term (current) use of systemic steroids; Z99.81 Dependence on supplemental oxygen; M79.7 Fibromyalgia; R07.89 Other chest pain
CPT/HCPCS: 96376 ×4; 96361 ×3; 96365; 96366; 96372 ×2; 96375; 99291; 36415; 94640 ×7; 94760; 93005; 83880; 80053 ×2; 82550; 83605 ×2; 83735 ×2; 84100; 84484 ×2; 85025 ×2; 85610; 85730; 81001; 84145; 71046 ×2; G0378 ×4; J2270 ×3; J2405 ×3; J1650 ×2; J3475; J7512 ×3; J2919 ×3

== ENCOUNTER 2024-04-30 13:27 | Emergency (ER) | payer MEDICARE ==
[2024-04-30] MEDS: SODIUM CHLORIDE 0.9% 500 ML 500 ML IV STA (14:10)
[2024-04-30] MEDS: ACETAMINOPHEN TAB 500 MG TAB PO STA (14:11)
[2024-04-30] MEDS: ONDANSETRON 4 MG/2 ML VIAL IVP STA (14:11)
[2024-04-30 14:30] LABS: Basophils % (A) 0 %; Eosinophils % (A) 0 %; HCT 44.1 % (34.0-46.0); HGB 13.8 gm/dL (11.4-16.0); Hypochromasia Slight; Lymphocytes # (A) 1.2 k/uL (1.0-4.8); Lymphocytes % (A) 12 %; MCH 27.4 pg (25.0-35.0); MCHC 31.4 g/dL (31.0-37.0); MCV 87.3 fL (80.0-100.0); Mean Platelet Volume 6.5; Monocytes # (A) 0.7 k/uL (0-1.0); Monocytes % (A) 7 %; Neutrophils # (A) 7.9 k/uL (1.3-7.7); Neutrophils % (A) 79 %; Platelet Count 384 k/uL (150-450); RBC 5.06 m/uL (3.80-5.40); RDW 13.9 % (11.5-15.5); WBC 9.9 k/uL (3.8-10.6)
[2024-04-30 14:38] LABS: Partial Thromboplastin Time 22.1 sec (22.0-30.0); Prothrombin Time 11.2 sec (10.0-12.5)
--- NOTE | 2024-04-30 14:42 | CT ---
EXAMINATION TYPE: CT brain wo con DATE OF EXAM: 04/30/2024 COMPARISON: 09/22/2022 HISTORY: AMS/ HEADACHE CT DLP: 1096 mGycm. Automated Exposure Control for Dose Reduction was Utilized. TECHNIQUE: CT scan of the head is performed without contrast. Findings: The ventricles, basal cisterns and sulci over the convexities are within normal limits and there is n o mass effect or shift of midline structures. No abnormal density is seen throughout the brain parenchyma and there is no acute intra or extra-axia l hemorrhage. The posterior fossa including the brainstem, fourth ventricle and cerebellar pontine angles appear no rmal. Intraorbital contents appear normal and symmetric. The mucosal thickening in the left maxillary sinus and ethmoid air cells has resolved. There is been marked reduction in the inflammatory change in the sphenoid sinus however a small air-fluid level per sists. The mastoid air cells are well aerated The calvarium is intact. IMPRESSION: 1.There is no acute bleed or mass effect. 2. Partial resolution of the sinusitis involving the left frontal, left ethmoid and sphenoid sinuses as described above. [facility], , 04/30/2024 2:39 PM
[2024-04-30 14:43] LABS: ALT 22 U/L (4-34); African American GFR (CKD) >90 (>60 ml/min/1.73 sqM); Albumin 4.5 g/dL (3.5-5.0); Anion Gap 6 mmol/L; Blood Urea Nitrogen 9 mg/dL (7-17); Carbon Dioxide 34 mmol/L (22-30); Chloride 99 mmol/L (98-107); Glucose 144 mg/dL (74-99); Non-African American GFR(CKD) >90 (>60 ml/min/1.73 sqM); Sodium 139 mmol/L (137-145); Total Bilirubin 0.9 mg/dL (0.2-1.3); Total Protein 7.2 g/dL (6.3-8.2)
[2024-04-30 14:49] LABS: AST 21 U/L (14-36); Alkaline Phosphatase 78 U/L (38-126); Magnesium 1.5 mg/dL (1.6-2.3)
--- NOTE | 2024-04-30 15:10 | ED ---
General Adult HPI - General Chief complaint: Syncope Stated complaint: Syncope Time Seen by Provider: 04/30/24 13:52 Source: patient, EMS, RN notes reviewed, old records reviewed Mode of arrival: EMS Limitations: no limitations - History of Present Illness Initial comments: 49-year-old female presents for evaluation of chronic pain, and possible syncopa l episode while at the doctor's office. Patient believes she passed out due to pain. She reports generalized pain complaints as well as headache. Patient was given fentanyl by paramedics during transport. No chest pain. No palpitations. No vomiting. No fever. - Related Data Home Medications Medication Instructions Recorded Confirmed Spironolactone [Aldactone] 25 mg PO DAILY 02/05/17 04/30/24 carvediloL [Coreg] 25 mg PO BID 03/26/21 04/30/24 oxyCODONE-APAP 10-325MG [Percocet 1 tab PO TID 03/16/22 04/30/24 10-325 mg] Citalopram Hydrobromide [CeleXA] 60 mg PO DAILY 01/27/23 04/30/24 Pantoprazole [Protonix] 40 mg PO DAILY 05/29/23 04/30/24 Albuterol Inhaler [Ventolin Hfa 2 puff INHALATION RT-QID PRN 04/02/24 04/30/24 Inhaler] Famotidine 20 mg PO BID 04/02/24 04/30/24 Montelukast [Singulair] 10 mg PO HS PRN 04/02/24 04/30/24 Rosuvastatin Calcium [Crestor] 5 mg PO DAILY 04/02/24 04/30/24 Xanax(Unknown Dose) 1 tab PO DAILY PRN 04/02/24 04/30/24 rOPINIRole HCL [Requip] 0.25 mg PO HS 04/02/24 04/30/24 traZODone HCL [Desyrel] 50 mg PO HS 04/02/24 04/30/24 Lidocaine 4% Patch 1 patch TOPICAL DAILY PRN 04/22/24 04/30/24 Nicotine 14Mg/24Hr Patch [Habitrol] 1 patch TRANSDERM DAILY PRN 04/22/24 04/30/24 predniSONE See Taper PO DIRECTED 04/30/24 04/30/24 Previous Rx's Medication Instructions Recorded Budesonide-Formot 160-4.5 Mcg 2 puff INHALATION RT-BID #1 each 04/06/24 [Symbicort 160-4.5 Mcg Inhaler] Ipratropium-Albuterol Nebulize 3 ml INHALATION RT-Q4H #120 each 04/06/24 [Duoneb 0.5 mg-3 mg/3 ml Soln] Losartan [Cozaar] 100 mg PO DAILY #30 tab 04/06/24 Allergies Allergy/AdvReac Type Severity Reaction Status Date / Time adhesive Allergy Rash/Hives Verified 04/30/24 14:46 amoxicillin Allergy Anaphylaxis Verified 04/30/24 14:46 azithromycin [From Zithromax] Allergy Anaphylaxis Verified 04/30/24 14:46 cephalexin monohydrate Allergy Anaphylaxis Verified 04/30/24 14:46 [From Keflex] ciprofloxacin Allergy Anaphylaxis Verified 04/30/24 14:46 clindamycin Allergy Anaphylaxis Verified 04/30/24 14:46 Iodinated Contrast Media Allergy Anaphylaxis Verified 04/30/24 14:46 [Iodinated Contrast- Oral and IV Dye] ketorolac [From Toradol] Allergy Anaphylaxis Verified 04/30/24 14:46 levofloxacin [From Levaquin] Allergy Rash/Hives Verified 04/30/24 14:46 naproxen Allergy Anaphylaxis Verified 04/30/24 14:46 NSAIDS (Non-Steroidal Allergy Rash/Hives Verified 04/30/24 14:46 Anti-Inflamma orphenadrine [From Norflex] Allergy Anaphylaxis Verified 04/30/24 14:46 shellfish derived Allergy Anaphylaxis Verified 04/30/24 14:46 Sulfa (Sulfonamide Allergy Anaphylaxis Verified 04/30/24 14:46 Antibiotics) sulfamethoxazole Allergy Anaphylaxis Verified 04/30/24 14:46 [From Bactrim] tramadol Allergy Anaphylaxis Verified 04/30/24 14:46 trimethoprim [From Bactrim] Allergy Anaphylaxis Verified 04/30/24 14:46 Review of Systems ROS Statement: Those systems with pertinent positive or pertinent negative responses have been documented in the HPI. ROS Other: All systems not noted in ROS Statement are negative. 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 IBS, cellulitis of the chin, CVA about 1 year ago(no residual) History of Any Multi-Drug Resistant Organisms: MRSA Date of last positivie culture/infection: 07/2016 MDRO Source:: Chin Past Surgical History: Appendectomy, Section, Cholecystectomy, Hysterectomy, Tubal Ligation Additional Past Surgical History / Comment(s): oral surgery . Pancreas biopsy May 2015. Past Anesthesia/Blood Transfusion Reactions: No Reported Reaction Past Psychological History: ADD/ADHD, Anxiety, Bipolar, Depression Smoking Status: Current every day smoker Past Alcohol Use History: None Reported Past Drug Use History: Marijuana - Past Family History Father History Unknown: Yes Family Medical History: No Reported History Additional Family Medical History / Comment(s): Pt adopted Mother History Unknown: Yes Additional Family Medical History / Comment(s): Pt adopted General Exam Limitations: no limitations General appearance: alert, in no apparent distress Head exam: Present: atraumatic, normocephalic Eye exam: Present: normal appearance, PERRL ENT exam: Present: normal exam Neck exam: Present: normal inspection. Absent: tenderness, meningismus Respiratory exam: Present: normal lung sounds bilaterally. Absent: respiratory distress, wheezes Cardiovascular Exam: Present: regular rate, normal rhythm GI/Abdominal exam: Present: soft. Absent: distended, tenderness, guarding Extremities exam: Present: normal inspection, normal capillary refill Neurological exam: Present: alert, oriented X3, CN II-XII intact. Absent: motor sensory deficit Psychiatric exam: Present: normal affect, normal mood Skin exam: Present: warm, dry, intact. Absent: cyanosis, diaphoretic Course Vital Signs 04/30/24 04/30/24 04/30/24 13:28 13:39 15:19 Temperature 98.1 F Pulse Rate 96 95 Respiratory 16 16 Rate Blood Pressure 213/107 225/108 O2 Sat by Pulse 93 L 92 L Oximetry 04/30/24 16:28 Temperature 98.9 F Pulse Rate 100 Respiratory 18 Rate Blood Pressure 187/93 O2 Sat by Pulse 92 L Oximetry Medical Decision Making - Medical Decision Making Was pt. sent in by a medical professional or institution (, PA, SECURITY FIELD SUPERVISOR, urgent care, hospital, or [place] health care facility...) When possible be specific @ -No Did you speak to anyone other than the patient for history (EMS, parent, family, police, friend...)? What history was obtained from this source @ -No Did you review nursing and triage notes (agree or disagree)? Why? @ -I reviewed and agree with nursing and triage notes Were old charts reviewed (outside hosp., previous admission, EMS record, old EKG, old radiological studies, urgent care reports/EKG's, [place] health [facility] facility records)? Report findings @ -No old charts were reviewed Differential Syncope: Valvular disease, hypertrophic cardiomyopathy, pulmonary embolism, tamponade, tachycardia, bradycardia, [place], hypovolemia, hemorrhage, dissection, anemia, intracranial hemorrhage, seizure, hypoglycemia, carbon monoxide poisoning, this is not meant to be an all-inclusive list. EKG interpreted by me (3pts min.). @EKG: Sinus rhythm rate of 96, HI interval 132, QRS duration 84, QTc [address] segment elevation. X-rays interpreted by me (1pt min.). @ -None done CT interpreted by me (1pt min.). @ -CT brain negative for intracranial hemorrhage or mass effect. U/S interpreted by me (1pt. min.). @ -None done What testing was considered but not performed or refused? (CT, X-rays, U/S, labs)? Why? @ -None What meds were considered but not given or refused? Why? @ -None Did you discuss the management of the patient with other professionals (professionals i.e. , PA, SECURITY FIELD SUPERVISOR, lab, RT, psych nurse, social media designer, reed fixer, teacher, information assurance officer, director of casework)? Give summary @ -No Was smoking cessation discussed for >3mins.? @ -No Was critical care preformed (if so, how long)? @ -No Were there social determinants of health that impacted care today? How? (Homelessness, low income, unemployed, alcoholism, drug addiction, transportation, low edu. Level, literacy, decrease access to med. care, fci, rehab)? @ -No Was there de-escalation of care discussed even if they declined (Discuss DNR or withdrawal of care, Hospice)? DNR status @ -No What co-morbidities impacted this encounter? (DM, HTN, Smoking, COPD, CAD, Cancer, CVA, ARF, Chemo, Hep., AIDS, mental health diagnosis, sleep apnea, morbid obesity)? @ -None Was patient admitted / discharged? Hospital course, mention meds given and route, prescriptions, significant lab abnormalities, going to OR and other pertinent info. @ -[Reevaluated, resting comfortably, symptoms improved. Laboratory testing unremarkable. Patient is in sinus rhythm. Head CT is negative. I do feel the patient is stable for discharge at this time. Undiagnosed new problem with uncertain prognosis? @ -No Drug Therapy requiring intensive monitoring for toxicity (Heparin, Nitro, Insulin, Cardizem)? @ -No Were any procedures done? @ -No Diagnosis/symptom? @Chronic pain, syncope, headache Acute, or Chronic, or Acute on Chronic? @ -Chronic acute chronic Uncomplicated (without systemic symptoms) or Complicated (systemic symptoms)? @ -Default Side effects of treatment? @ -No Exacerbation, Progression, or Severe Exacerbation? @ -No Poses a threat to life or bodily function? How? (Chest pain, [place], [place], pneumonia, PE, COPD, DKA, ARF, appy, cholecystitis, CVA, Diverticulitis, Homicidal, Suicidal, threat to staff... and all critical care pts) @Low risk at this time - Lab Data Result diagrams: 04/30/24 14:16 04/30/24 14:16 Lab Results 04/30/24 04/30/24 04/30/24 Range/Units 14:16 14:16 14:16 WBC 9.9 (3.8-10.6) k/uL RBC 5.06 (3.80-5.40) m/uL Hgb 13.8 (11.4-16.0) gm/dL Hct 44.1 (34.0-46.0) % MCV 87.3 (80.0-100.0) fL MCH 27.4 (25.0-35.0) pg MCHC 31.4 (31.0-37.0) g/dL RDW 13.9 (11.5-15.5) % Plt Count 384 (150-450) k/uL MPV 6.5 Neutrophils % 79 % Lymphocytes % 12 % Monocytes % 7 % Eosinophils % 0 % Basophils % 0 % Neutrophils # 7.9 H (1.3-7.7) k/uL Lymphocytes # 1.2 (1.0-4.8) k/uL Monocytes # 0.7 (0-1.0) k/uL Eosinophils # 0.0 (0-0.7) k/uL Basophils # 0.0 (0-0.2) k/uL Hypochromasia Slight PT 11.2 (10.0-12.5) sec INR 1.0 (<1.2) APTT 22.1 (22.0-30.0) sec Sodium 139 (137-145) mmol/L Potassium 4.0 (3.5-5.1) mmol/L Chloride 99 (98-107) mmol/L Carbon Dioxide 34 H (22-30) mmol/L Anion Gap 6 mmol/L BUN 9 (7-17) mg/dL Creatinine 0.52 (0.52-1.04) mg/dL Est GFR (CKD-EPI)AfAm >90 (>60 ml/min/1.73 sqM) Est GFR (CKD-EPI)NonAf >90 (>60 ml/min/1.73 sqM) Glucose 144 H (74-99) mg/dL Calcium 10.0 (8.4-10.2) mg/dL Magnesium 1.5 L (1.6-2.3) mg/dL Total Bilirubin 0.9 (0.2-1.3) mg/dL AST 21 (14-36) U/L ALT 22 (4-34) U/L Alkaline Phosphatase 78 (38-126) U/L Total Protein 7.2 (6.3-8.2) g/dL Albumin 4.5 (3.5-5.0) g/dL Disposition Clinical Impression: Narcotic dependence, Head ache Disposition: HOME SELF-CARE Condition: Fair Instructions (If sedation given, give patient instructions): Acute Headache (ED) Is patient prescribed a controlled substance at d/c from ED?: No Referrals: Kemi Guevara MD [Primary Care Provider] - 1-2 days Time of Disposition: 15:37
[2024-04-30] MEDS: HYDROmorphone 1 MG/ML 1 ML SYRINGE IVP STA (15:16)
[2024-04-30] MEDS: LOSARTAN 50 MG TAB PO STA (15:57)
[2024-04-30 16:29] VITALS: BP 187/93; PULSE 100; RESP 18; TEMP 98.9
== END 2024-04-30 17:03 | disposition home or self-care (01) ==
LOC: EC 13:27
CPT/HCPCS: 36415; 70450; 80053; 83735; 85025; 85610; 85730; 93005; 96361; 96374; 96375; 99285

== ENCOUNTER 2024-05-22 22:06 | Emergency (ER) | payer MEDICARE ==
[2024-05-22 22:11] VITALS: RESP 18; TEMP 98.5
[2024-05-22 23:16] LABS: Appearance,Urine Clear (Clear); Bilirubin,Urine Negative (Negative); Blood,Urine Negative (Negative); Color,Urine Yellow; Glucose,Urine (UA) Negative (Negative); Ketones,Urine Trace (Negative); Leukocyte Esterase,Urine Negative (Negative); Nitrite,Urine Negative (Negative); Protein,Urine Trace (Negative); Specific Gravity,Urine 1.035 (1.001-1.035)
[2024-05-22] MEDS: ONDANSETRON 4 MG TAB PO STA (23:54)
[2024-05-22] MEDS: MORPHINE SULFATE 4 MG/ML SYRINGE IM STA (23:55)
--- NOTE | 2024-05-23 00:28 | ED ---
General Adult HPI - General Chief complaint: Abdominal Pain Stated complaint: Abd/Back Pain Time Seen by Provider: 05/22/24 22:21 Source: patient, RN notes reviewed Mode of arrival: ambulatory - History of Present Illness Initial comments: 49-year-old female with a past medical history of COPD presents to the emergency department for evaluation of bilateral flank pain. Patient states that over the past 2 days she has experienced some pain in her low back. She notes that she did twist around a couple of weeks ago but she did not have any pain at that time. She states that the pain is worse with movement. She also admits to dysuria. Denies hematuria. Denies recent fever, chills. No loss of bowel or bladder function, saddle anesthesia, urinary retention. - Related Data Home Medications Medication Instructions Recorded Confirmed Spironolactone [Aldactone] 25 mg PO DAILY 02/05/17 04/30/24 carvediloL [Coreg] 25 mg PO BID 03/26/21 04/30/24 oxyCODONE-APAP 10-325MG [Percocet 1 tab PO TID 03/16/22 04/30/24 10-325 mg] Citalopram Hydrobromide [CeleXA] 60 mg PO DAILY 01/27/23 04/30/24 Pantoprazole [Protonix] 40 mg PO DAILY 05/29/23 04/30/24 Albuterol Inhaler [Ventolin Hfa 2 puff INHALATION RT-QID PRN 04/02/24 04/30/24 Inhaler] Famotidine 20 mg PO BID 04/02/24 04/30/24 Montelukast [Singulair] 10 mg PO HS PRN 04/02/24 04/30/24 Rosuvastatin Calcium [Crestor] 5 mg PO DAILY 04/02/24 04/30/24 Xanax(Unknown Dose) 1 tab PO DAILY PRN 04/02/24 04/30/24 rOPINIRole HCL [Requip] 0.25 mg PO HS 04/02/24 04/30/24 traZODone HCL [Desyrel] 50 mg PO HS 04/02/24 04/30/24 Lidocaine 4% Patch 1 patch TOPICAL DAILY PRN 04/22/24 04/30/24 Nicotine 14Mg/24Hr Patch [Habitrol] 1 patch TRANSDERM DAILY PRN 04/22/24 predniSONE See Taper PO DIRECTED 04/30/24 04/30/24 Previous Rx's Medication Instructions Recorded Budesonide-Formot 160-4.5 Mcg 2 puff INHALATION RT-BID #1 each 04/06/24 [Symbicort 160-4.5 Mcg Inhaler] Ipratropium-Albuterol Nebulize 3 ml INHALATION RT-Q4H #120 each 04/06/24 [Duoneb 0.5 mg-3 mg/3 ml Soln] Losartan [Cozaar] 100 mg PO DAILY #30 tab 04/06/24 Allergies Allergy/AdvReac Type Severity Reaction Status Date / Time adhesive Allergy Rash/Hives Verified 05/22/24 22:12 amoxicillin Allergy Anaphylaxis Verified 05/22/24 22:12 azithromycin [From Zithromax] Allergy Anaphylaxis Verified 05/22/24 22:12 cephalexin monohydrate Allergy Anaphylaxis Verified 05/22/24 22:12 [From Keflex] ciprofloxacin Allergy Anaphylaxis Verified 05/22/24 22:12 clindamycin Allergy Anaphylaxis Verified 05/22/24 22:12 Iodinated Contrast Media Allergy Anaphylaxis Verified 05/22/24 22:12 [Iodinated Contrast- Oral and IV Dye] ketorolac [From Toradol] Allergy Anaphylaxis Verified 05/22/24 22:12 levofloxacin [From Levaquin] Allergy Rash/Hives Verified 05/22/24 22:12 naproxen Allergy Anaphylaxis Verified 05/22/24 22:12 NSAIDS (Non-Steroidal Allergy Rash/Hives Verified 05/22/24 22:12 Anti-Inflamma orphenadrine [From Norflex] Allergy Anaphylaxis Verified 05/22/24 22:12 shellfish derived Allergy Anaphylaxis Verified 05/22/24 22:12 Sulfa (Sulfonamide Allergy Anaphylaxis Verified 05/22/24 22:12 Antibiotics) sulfamethoxazole Allergy Anaphylaxis Verified 05/22/24 22:12 [From Bactrim] tramadol Allergy Anaphylaxis Verified 05/22/24 22:12 trimethoprim [From Bactrim] Allergy Anaphylaxis Verified 05/22/24 22:12 Review of Systems ROS Statement: Those systems with pertinent positive or pertinent negative responses have been documented in the HPI. ROS Other: All systems not noted in ROS Statement are negative. 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 IBS, cellulitis of the chin, CVA about 1 year ago(no residual) History of Any Multi-Drug Resistant Organisms: MRSA Date of last positivie culture/infection: 07/2016 MDRO Source:: Chin Past Surgical History: Appendectomy, Section, Cholecystectomy, Hysterec shiva, Tubal Ligation Additional Past Surgical History / Comment(s): oral surgery . Pancreas biopsy May 2015. Past Anesthesia/Blood Transfusion Reactions: No Reported Reaction Past Psychological History: ADD/ADHD, Anxiety, Bipolar, Depression Smoking Status: Current every day smoker Past Alcohol Use History: None Reported Past Drug Use History: Marijuana - Past Family History Father History Unknown: Yes Family Medical History: No Reported History Additional Family Medical History / Comment(s): Pt adopted Mother History Unknown: Yes Additional Family Medical History / Comment(s): Pt adopted General Exam Limitations: no limitations General appearance: alert, in no apparent distress Head exam: Present: atraumatic, normocephalic, normal inspection Eye exam: Present: normal appearance, PERRL, EOMI. Absent: scleral icterus, conjunctival injection, periorbital swelling ENT exam: Present: normal exam, mucous membranes moist Neck exam: Present: normal inspection. Absent: tenderness, meningismus, lymphadenopathy Respiratory exam: Present: wheezes. Absent: respiratory distress, rales, rhonchi, stridor Cardiovascular Exam: Present: regular rate, normal rhythm, normal heart sounds. Absent: systolic murmur, diastolic murmur, rubs, gallop, clicks GI/Abdominal exam: Present: soft, normal bowel sounds. Absent: distended, tenderness, guarding, rebound, rigid Extremities exam: Present: normal inspection, full ROM, normal capillary refill. Absent: tenderness, pedal edema, joint swelling, calf tenderness Back exam: Present: normal inspection. Absent: CVA tenderness (R), CVA tenderness (L) Neurological exam: Present: alert, oriented X3, CN II-XII intact Psychiatric exam: Present: normal affect, normal mood Skin exam: Present: warm, dry, intact, normal color. Absent: rash Course Vital Signs 05/22/24 05/23/24 22:09 00:55 Temperature 98.5 F Pulse Rate 82 78 Respiratory 18 18 Rate Blood Pressure 174/84 183/104 O2 Sat by Pulse 93 L 97 Oximetry Medical Decision Making - Medical Decision Making Was pt. sent in by a medical professional or institution (, LOCO, SERGING MACHINE OPERATOR AUTOMATIC, urgent care, hospital, or fci...) When possible be specific @ -No Did you speak to anyone other than the patient for history (EMS, parent, family, police, friend...)? What history was obtained from this source @ -No Did you review nursing and triage notes (agree or disagree)? Why? @ -I reviewed and agree with nursing and triage notes Were old charts reviewed (outside hosp., previous admission, EMS record, old EKG, old radiological studies, urgent care reports/EKG's, fci records)? Report findings @ -No old charts were reviewed Differential Diagnosis (chest pain, altered mental status, abdominal pain women, abdominal pain men, vaginal bleeding, weakness, fever, dyspnea, syncope, headache, dizziness, GI bleed, back pain, seizure, CVA, palpatations, mental health, musculoskeletal)? @ -Differential Back Pain: Strain, zoster, cauda equina syndrome, epidural abscess, vertebral osteomyelitis, discitis, fracture, subluxation, disc herniation, DJD, spinal stenosis, dissection, AAA, pancreatitis, peptic ulcer disease, pyelonephritis, kidney stone, this is not meant to be an all-inclusive list. EKG interpreted by me (3pts min.). @ -None X-rays interpreted by me (1pt min.). @ -KUB x-ray shows nonspecific bowel gas pattern CT interpreted by me (1pt min.). @ -None done U/S interpreted by me (1pt. min.). @ -None done What testing was considered but not performed or refused? (CT, X-rays, U/S, labs)? Why? @ -None What meds were considered but not given or refused? Why? @ -None Did you discuss the management of the patient with other professionals (professionals i.e. LOCO Vincent, SERGING MACHINE OPERATOR AUTOMATIC, lab, RT, psych nurse, social work assistant, magnetic tape composer operator, teacher, [employer] officer, case making machine operator)? Give summary @ -No Was smoking cessation discussed for >3mins.? @ -No Was critical care preformed (if so, how long)? @ -No Were there social determinants of health that impacted care today? How? (Ho melessness, low income, unemployed, alcoholism, drug addiction, transportation, low edu. Level, literacy, decrease access to med. care, assisted, rehab)? @ -No Was there de-escalation of care discussed even if they declined (Discuss DNR or withdrawal of care, Hospice)? DNR status @ -No What co-morbidities impacted this encounter? (DM, HTN, Smoking, COPD, CAD, Cancer, CVA, ARF, Chemo, Hep., AIDS, mental health diagnosis, sleep apnea, morbid obesity)? @ -None Was patient admitted / discharged? Hospital course, mention meds given and route, prescriptions, significant lab abnormalities, going to OR and other pertinent info. @ -Discharge. Patient presents to the emergency department for evaluation of low back pain/flank pain with dysuria. Patient underwent a urinalysis which showed no evidence of infectious process. KUB x-ray was obtained revealing no obvious renal calculi. Patient was provided antiemetics and analgesia in the emergency department with relief of symptoms. Patient will be discharged home with advised follow-up to her primary care provider. She is understanding agreeable with this plan. Patient stable at time of discharge. Case discussed with Dr. Trejo. Undiagnosed new problem with uncertain prognosis? @ -No Drug Therapy requiring intensive monitoring for toxicity (Heparin, Nitro, Insulin, Cardizem)? @ -No Were any procedures done? @ -No Diagnosis/symptom? @ -Flank pain Acute, or Chronic, or Acute on Chronic? @ -Acute Uncomplicated (without systemic symptoms) or Complicated (systemic symptoms)? @ -Uncomplicated Side effects of treatment? @ -No Exacerbation, Progression, or Severe Exacerbation? @ -No Poses a threat to life or bodily function? How? (Chest pain, [place], [place], pneumonia, PE, COPD, DKA, ARF, appy, cholecystitis, CVA, Diverticulitis, Homicidal, Suicidal, threat to staff... and all critical care pts) @ -No - Lab Data Lab Results 05/22/24 Range/Units 22:56 Urine Color Yellow Urine Appearance Clear (Clear) Urine pH 6.0 (5.0-8.0) Ur Specific [place] 1.035 (1.001-1.035) Urine Protein Trace H (Negative) Urine Glucose (UA) Negative (Negative) Urine Ketones Trace H (Negative) Urine Blood Negative (Negative) Urine Nitrite Negative (Negative) Urine Bilirubin Negative (Negative) Urine Urobilinogen 2.0 (<2.0) mg/dL Ur Leukocyte Esterase Negative (Negative) Disposition Clinical Impression: Flank pain Disposition: HOME SELF-CARE Condition: Stable Instructions (If sedation given, give patient instructions): Flank Pain (ED) Additional Instructions: Please follow up with your primary care provider. Return to the emergency department for new or worsening symptoms. Is patient prescribed a controlled substance at d/c from ED?: No Referrals: Kemi Guevara MD [Primary Care Provider] - 1-2 days
--- NOTE | 2024-05-23 00:30 | XR ---
EXAMINATION TYPE: XR [facility] DATE OF EXAM: 05/22/2024 11:05 PM COMPARISON: 12/05/2022 CLINICAL INDICATION: Female, 49 years old with history of flank pain; [facility] TECHNIQUE: One radiographic view of the abdomen was obtained. FINDINGS: The bowel gas pattern is nonspecific without dilated loops of small or large bowel. . Fecal material and gas are demonstrated throughout the colon and rectum. There is no evidence for organomegaly or pneumoperitoneum. The osseous structures are intact. No ab normal calcifications are present. Right upper quadrant cholecystectomy clips. IMPRESSION: Nonspecific bowel gas pattern without radiographic evidence for acute process. [facility] Katiana Ames, , 05/23/2024 12:28 AM
[2024-05-23 00:57] VITALS: BP 183/104; PULSE 78
== END 2024-05-23 00:59 | disposition home or self-care (01) ==
LOC: EC 22:06
DX: R10.30 Lower abdominal pain, unspecified (principal); F17.200 Nicotine dependence, unspecified, uncomplicated; Z88.1 Allergy status to other antibiotic agents; Z91.041 Radiographic dye allergy status; Z88.6 Allergy status to analgesic agent; Z88.8 Allergy status to other drugs, medicaments and biological substances; Z88.2 Allergy status to sulfonamides; Z91.013 Allergy to seafood
CPT/HCPCS: 81003; 74018; 99284; 96372; J2270

== ENCOUNTER 2024-05-24 03:47 | Observation (INO) | payer MEDICARE ==
[2024-05-24] MEDS: predniSONE 20 MG TAB PO STA (04:22)
[2024-05-24] MEDS ORDERED: ALBUTEROL NEBULIZED 2.5 MG/3 ML INHALATION SCH (04:30)
[2024-05-24] MEDS: ALBUTEROL NEBULIZED 2.5 MG/3 ML INHALATION STA (04:36)
[2024-05-24] MEDS: IPRATROPIUM 0.5 MG/2.5 ML NEBU INHALATION STA (04:37)
[2024-05-24] MEDS: IPRATROPIUM-ALBUTEROL 3 ML NEB INHALATION STA (05:03)
[2024-05-24] MEDS: DOXYCYCLINE 100 MG CAP PO STA (05:14)
[2024-05-24 05:24] LABS: Basophils % (A) 0 %; Eosinophils # (A) 0.1 k/uL (0-0.7); Eosinophils % (A) 1 %; HCT 41.7 % (34.0-46.0); Lymphocytes # (A) 1.1 k/uL (1.0-4.8); Lymphocytes % (A) 10 %; MCH 27.2 pg (25.0-35.0); MCHC 31.2 g/dL (31.0-37.0); MCV 87.1 fL (80.0-100.0); Mean Platelet Volume 7.1; Monocytes # (A) 0.8 k/uL (0-1.0); Monocytes % (A) 7 %; Neutrophils # (A) 9.2 k/uL (1.3-7.7); Neutrophils % (A) 81 %; Platelet Count 307 k/uL (150-450); RBC 4.79 m/uL (3.80-5.40); RDW 13.8 % (11.5-15.5); WBC 11.4 k/uL (3.8-10.6)
[2024-05-24 05:37] LABS: ALT 20 U/L (4-34); AST 19 U/L (14-36); African American GFR (CKD) >90 (>60 ml/min/1.73 sqM); Alkaline Phosphatase 73 U/L (38-126); Blood Urea Nitrogen 24 mg/dL (7-17); Calcium 8.9 mg/dL (8.4-10.2); Chloride 95 mmol/L (98-107); Glucose 143 mg/dL (74-99); Non-African American GFR(CKD) >90 (>60 ml/min/1.73 sqM); Sodium 137 mmol/L (137-145); Total Bilirubin 0.2 mg/dL (0.2-1.3); Total Protein 6.4 g/dL (6.3-8.2)
[2024-05-24 05:42] LABS: Anion Gap 6 mmol/L
[2024-05-24 05:44] LABS: Carbon Dioxide 36 mmol/L (22-30); INR 0.9 (<1.2); Partial Thromboplastin Time 22.1 sec (22.0-30.0); Prothrombin Time 10.3 sec (10.0-12.5)
[2024-05-24 05:45] LABS: NT-Pro-B-Type Natriuretic Pept 74 pg/mL
[2024-05-24] MEDS: ONDANSETRON 4 MG/2 ML VIAL IVP STA (05:58)
--- NOTE | 2024-05-24 05:58 | XR ---
EXAM: XR Chest, 2 Views CLINICAL HISTORY: difficulty breathing TECHNIQUE: Frontal and lateral views of the chest. COMPARISON: 04/14/24 FINDINGS: Lungs: Subcentimeter granulomatous calcification over left costophrenic angle is again noted. Otherwise lungs are clear. Pleural space: Unremarkable. Mediastinum: Unremarkable. Normal mediastinal contour. Bones/joints: No acute findings. IMPRESSION: No acute findings.
[2024-05-24] MEDS: MORPHINE SULFATE 4 MG/ML SYRINGE IVP STA (06:00)
--- NOTE | 2024-05-24 06:08 | ED ---
General Adult HPI - General Chief complaint: Shortness of Breath Stated complaint: ELVI Time Seen by Provider: 05/24/24 04:17 Source: patient Mode of arrival: wheelchair Limitations: no limitations - History of Present Illness Initial comments: Patient is a 49-year-old female past medical history of COPD, CHF presenting today for shortness of breath. Patient has been with her who is admitted to the hospital and usually brings her inhaler with her however tonight began having worsening shortness of breath and did not have access to inhaler. Endorses few days of cough productive of brownish sputum, no hemoptysis. States she has had subjective fevers with Tmax 99 degrees and chills. Was here yesterday for flank pain but now feels is likely secondary to pleuritic pain as pain where is at the top of both flanks and worsens with coughing and deep inspiration. Was on antibiotics and prednisone when she was discharged in the hospital proximately 1 month ago for similar. Denies chest pain in the front of her chest, denies abdominal pain nausea or vomiting. Does endorse multiple episodes loose stools that is nonblack or bloody over the last few days. No lower extremity edema. - Related Data Home Medications Medication Instructions Recorded Confirmed Spironolactone [Aldactone] 25 mg PO DAILY 02/05/17 05/24/24 carvediloL [Coreg] 25 mg PO BID 03/26/21 05/24/24 oxyCODONE-APAP 10-325MG [Percocet 1 tab PO TID 03/16/22 05/24/24 10-325 mg] Citalopram Hydrobromide [CeleXA] 60 mg PO DAILY 01/27/23 05/24/24 Pantoprazole [Protonix] 40 mg PO DAILY 05/29/23 05/24/24 Albuterol Inhaler [Ventolin Hfa 2 puff INHALATION RT-QID PRN 04/02/24 05/24/24 Inhaler] Famotidine 20 mg PO BID 04/02/24 05/24/24 Montelukast [Singulair] 10 mg PO HS PRN 04/02/24 05/24/24 Rosuvastatin Calcium [Crestor] 5 mg PO DAILY 04/02/24 05/24/24 Xanax(Unknown Dose) 1 tab PO DAILY PRN 04/02/24 05/24/24 rOPINIRole HCL [Requip] 0.25 mg PO HS 04/02/24 05/24/24 traZODone HCL [Desyrel] 50 mg PO HS 04/02/24 05/24/24 Nicotine 14Mg/24Hr Patch [Habitrol] 1 patch TRANSDERM DAILY PRN 04/22/24 05/24/24 Previous Rx's Medication Instructions Recorded Budesonide-Formot 160-4.5 Mcg 2 puff INHALATION RT-BID #1 each 04/06/24 [Symbicort 160-4.5 Mcg Inhaler] Ipratropium-Albuterol Nebulize 3 ml INHALATION RT-Q4H #120 each 04/06/24 [Duoneb 0.5 mg-3 mg/3 ml Soln] Losartan [Cozaar] 100 mg PO DAILY #30 tab 04/06/24 Allergies Allergy/AdvReac Type Severity Reaction Status Date / Time adhesive Allergy Rash/Hives Verified 05/24/24 10:27 amoxicillin Allergy Anaphylaxis Verified 05/24/24 10:27 azithromycin [From Zithromax] Allergy Anaphylaxis Verified 05/24/24 10:27 cephalexin monohydrate Allergy Anaphylaxis Verified 05/24/24 10:27 [From Keflex] ciprofloxacin Allergy Anaphylaxis Verified 05/24/24 10:27 clindamycin Allergy Anaphylaxis Verified 05/24/24 10:27 Iodinated Contrast Media Allergy Anaphylaxis Verified 05/24/24 10:27 [Iodinated Contrast- Oral and IV Dye] ketorolac [From Toradol] Allergy Anaphylaxis Verified 05/24/24 10:27 levofloxacin [From Levaquin] Allergy Rash/Hives Verified 05/24/24 10:27 naproxen Allergy Anaphylaxis Verified 05/24/24 10:27 NSAIDS (Non-Steroidal Allergy Rash/Hives Verified 05/24/24 10:27 Anti-Inflamma orphenadrine [From Norflex] Allergy Anaphylaxis Verified 05/24/24 10:27 pineapple Allergy Anaphylaxis Verified 05/27/24 18:47 shellfish derived Allergy Anaphylaxis Verified 05/24/24 10:27 Sulfa (Sulfonamide Allergy Anaphylaxis Verified 05/24/24 10:27 Antibiotics) sulfamethoxazole Allergy Anaphylaxis Verified 05/24/24 10:27 [From Bactrim] tramadol Allergy Anaphylaxis Verified 05/24/24 10:27 trimethoprim [From Bactrim] Allergy Anaphylaxis Verified 05/24/24 10:27 Review of Systems ROS Statement: Those systems with pertinent positive or pertinent negative responses have been documented in the HPI. ROS Other: All systems not noted in ROS Statement are negative. 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 IBS, cellulitis of the chin, CVA about 1 year ago(no residual) History of Any Multi-Drug Resistant Organisms: MRSA Date of last positivie culture/infection: 07/2016 MDRO Source:: Chin Past Surgical History: Appendectomy, Section, Cholecystectomy, Hysterectomy, Tubal Ligation Additional Past Surgical History / Comment(s): oral surgery . Pancreas biopsy May 2015. Past Anesthesia/Blood Transfusion Reactions: No Reported Reaction Past Psychological History: ADD/ADHD, Anxiety, Bipolar, Depression Smoking Status: Current every day smoker Past Alcohol Use History: None Reported Past Drug Use History: Marijuana - Past Family History Father History Unknown: Yes Family Medical History: No Reported History Additional Family Medical History / Comment(s): Pt adopted Mother History Unknown: Yes Additional Family Medical History / Comment(s): Pt adopted General Exam - General Exam Comments Initial Comments: PE: CONSTITUTIONAL: Mild distress, ill-appearing nontoxic SKIN: Warm, dry, no jaundice, hives or petechiae EYES: Pupils are equally round, extraocular movements intact without nystagmus, clear conjunctiva, non-icteric sclera HENT: Normocephalic, atraumatic, moist mucus membranes, oropharynx clear without exudates NECK: , Full range of motion, normal appearance PULMONARY: Scant wheezes in the bilateral upper lung daniel, decreased breath sounds in the lower lung daniel, rhonchi in the lower lung daniel, no crackles or rales, no logistics planner muscle use, mild tachypnea, no stridor, decreased excursion, reproducible TTP of the lower aspects of the posterior ribs b ilatearlly CARDIOVASCULAR: Regular rate, rhythm, normal S1 and S2. No appreciated murmurs, rubs or gallops. Strong radial pulses with intact distal perfusion. No lower extremity edema GASTROINTESTINAL: Soft, active bowel sounds throughout, non-tender, non- distended, no palpable masses, no rebound or guarding. No hepatosplenomegaly MUSCULOSKELETAL: Extremities have no gross deformity, no edema, redness, or swelling. No calf swelling NEUROLOGIC:_a/o x 3, GCS 15, normal mentation and speech. Moves all extremities x 4 without motor or sensory deficit PSYCHIATRIC:_normal mood and affect, thought process is clear and linear Limitations: no limitations Course Vital Signs 05/24/24 05/24/24 05/24/24 03:53 04:08 04:37 Temperature 98.2 F Pulse Rate 81 80 Pulse Rate [ Scallop Binder ] Respiratory 24 30 H Rate Blood Pressure 191/95 Blood Pressure [Left Arm] O2 Sat by Pulse 92 L 89 L Oximetry 05/24/24 05/24/24 05/24/24 04:45 04:46 04:58 Temperature Pulse Rate 80 80 88 Pulse Rate [ Scallop Binder ] Respiratory Rate Blood Pressure Blood Pressure [Left Arm] O2 Sat by Pulse Oximetry 05/24/24 05/24/24 05/24/24 05:04 05:16 07:00 Temperature Pulse Rate 88 88 80 Pulse Rate [ Scallop Binder ] Respiratory 26 H Rate Blood Pressure 169/97 Blood Pressure [Left Arm] O2 Sat by Pulse 96 Oximetry 05/24/24 05/24/24 07:45 08:00 Temperature 98 F Pulse Rate 62 Pulse Rate [ 65 Scallop Binder ] Respiratory 18 18 Rate Blood Pressure 170/94 Blood Pressure 168/91 [Left Arm] O2 Sat by Pulse 96 Oximetry EKG Findings - EKG Comments: EKG Findings:: Sinus rhythm, rate 73 bpm, ID interval 141 ms, QT/QTc 382/410 ms, QRS duration 87 ms, normal axis, normal early repolm compared to EKG done on 04/30/2024, T waves are slightly more prominent in leads V3 and V4 but no new ST elevations or depressions, no arrhythmia Medical Decision Making - Medical Decision Making Was pt. sent in by a medical professional or institution (, PA, TEACHING [employer], urgent care, hospital, or fdc...) When possible be specific @ -No Did you speak to anyone other than the patient for history (EMS, parent, family, police, friend...)? What history was obtained from this source @ -No Did you review nursing and triage notes (agree or disagree)? Why? @ -I reviewed and agree with nursing and triage notes Were old charts reviewed (outside hosp., previous admission, EMS record, old EKG, old radiological studies, urgent care reports/EKG's, fdc records)? Report findings @ -Medical records reviewed, patient recently admitted at the beginning of April for similar complaint Differential Diagnosis (chest pain, altered mental status, abdominal pain women, abdominal pain men, vaginal bleeding, weakness, fever, dyspnea, syncope, headache, dizziness, GI bleed, back pain, seizure, CVA, palpatations, mental health, musculoskeletal)? @ -Differential Dyspnea: Coronary syndrome, arrhythmia, tamponade, asthma, COPD, pulmonary embolism, pneumonia, pneumothorax, pulmonary effusion, anaphylaxis, diabetic ketoacidosis, flailed chest, pulmonary contusion, diaphragmatic rupture, anemia, neuromuscular, this is not meant to be an all-inclusive list. Patient has wheezes diffusely, no lower extremity edema and states feels similar to his prior COPD exacerbations therefore do not feel imaging beyond CXR indicated at this point EKG interpreted by me (3pts min.). @ -As above X-rays interpreted by me (1pt min.). @No cardiomegaly or consolidations CT interpreted by me (1pt min.). @ -None done U/S interpreted by me (1pt. min.). @ -None done What testing was considered but not performed or refused? (CT, X-rays, U/S, labs)? Why? @ -None What meds were considered but not given or refused? Why? @ -None Did you discuss the management of the patient with other professionals (professionals i.e. , PA, [employer], lab, RT, psych nurse, social worker health services, desk assistant, teacher, digital controls technical officer, medical case worker)? Give summary @ -No Was smoking cessation discussed for >3mins.? @ -No Was critical care preformed (if so, how long)? @Yes, 35 minutes Were there social determinants of health that impacted care today? How? (Homelessness, low income, unemployed, alcoholism, drug addiction, transportation, low edu. Level, literacy, decrease access to med. care, mcc, rehab)? @ -No Was there de-escalation of care discussed even if they declined (Discuss DNR or withdrawal of care, Hospice)? @ -No What co-morbidities impacted this encounter? (DM, HTN, Smoking, COPD, CAD, Cancer, CVA, ARF, Chemo, Hep., AIDS, mental health diagnosis, sleep apnea, morbid obesity)? @ -COPD, nicotine dependance, CHF Was patient admitted / discharged? Hospital course, mention meds given and route, prescriptions, significant lab abnormalities, going to OR and other pertinent info. @ -Admission- Pleasant 49-year-old female history of COPD on 2 L oxygen at night, CHF chronic pain, presenting today for shortness of breath. Patient audibly wheezing on assessment, tachypneic, mild distress. Rhonchi in lower lung daniel, wheezing throughout. Decreased excursion, no logistics planner muscle use. Patient states consistent with similar prior COPD exacerbations. Will obtain chest x-ray to rule out "current pneumonia, EKG, single troponin, BNP given history CHF, back -to-back nebulizer treatments, 60 mg oral prednisone, doxycycline, Cephed testing, morphine for chronic pain. Pt agreeable with POC. Status post 3 nebulizer treatments patient did improve however does remain significantly wheezy. Labs significant for COVID-positive, mild leukocytosis, 11.4. Otherwise largely unremarkable. Discussed with patient plan for admission, she is agreeable plan of care. Discussed with [facility], who kindly accepts patient for admission. Pt admitted in stable condition. Undiagnosed new problem with uncertain prognosis? @ -No Drug Therapy requiring intensive monitoring for toxicity (Heparin, Nitro, Insulin, Cardizem)? @ -No Were any procedures done? @ -No Diagnosis/symptom? @ COPD exacerbation, COVID19 Acute, or Chronic, or Acute on Chronic? @ Acute Uncomplicated (without systemic symptoms) or Complicated (systemic symptoms)? @ Complicated Side effects of treatment? @ -No Exacerbation, Progression, or Severe Exacerbation? @ Exacerbation Poses a threat to life or bodily function? How? (Chest pain, USA, IA, pneumonia, PE, COPD, DKA, ARF, appy, cholecystitis, CVA, Diverticulitis, Homicidal, Suicidal, threat to staff... and all critical care pts) @ -Yes - Lab Data Result diagrams: 05/25/24 06:30 05/25/24 06:30 Lab Results 05/24/24 05/24/24 05/24/24 Range/Units 05:04 05:04 05:04 WBC 11.4 H (3.8-10.6) k/uL RBC 4.79 (3.80-5.40) m/uL Hgb 13.0 (11.4-16.0) gm/dL Hct 41.7 (34.0-46.0) % MCV 87.1 (80.0-100.0) fL MCH 27.2 (25.0-35.0) pg MCHC 31.2 (31.0-37.0) g/dL RDW 13.8 (11.5-15.5) % Plt Count 307 (150-450) k/uL MPV 7.1 Neutrophils % 81 % Lymphocytes % 10 % Monocytes % 7 % Eosinophils % 1 % Basophils % 0 % Neutrophils # 9.2 H (1.3-7.7) k/uL Lymphocytes # 1.1 (1.0-4.8) k/uL Monocytes # 0.8 (0-1.0) k/uL Eosinophils # 0.1 (0-0.7) k/uL Basophils # 0.0 (0-0.2) k/uL PT 10.3 (10.0-12.5) sec INR 0.9 (<1.2) APTT 22.1 (22.0-30.0) sec Sodium 137 (137-145) mmol/L Potassium 5.0 (3.5-5.1) mmol/L Chloride 95 L (98-107) mmol/L Carbon Dioxide 36 H (22-30) mmol/L Anion Gap 6 mmol/L BUN 24 H (7-17) mg/dL Creatinine 0.62 (0.52-1.04) mg/dL Est GFR (CKD-EPI)AfAm >90 (>60 ml/min/1.73 sqM) Est GFR (CKD-EPI)NonAf >90 (>60 ml/min/1.73 sqM) Glucose 143 H (74-99) mg/dL Calcium 8.9 (8.4-10.2) mg/dL Total Bilirubin 0.2 (0.2-1.3) mg/dL AST 19 (14-36) U/L ALT 20 (4-34) U/L Alkaline Phosphatase 73 (38-126) U/L Troponin I (0.000-0.034) ng/mL NT-Pro-B Natriuret Pep 74 pg/mL Total Protein 6.4 (6.3-8.2) g/dL Albumin 4.0 (3.5-5.0) g/dL Influenza Type A (PCR) (Not Detectd) Influenza Type B (PCR) (Not Detectd) RSV (PCR) (Not Detectd) SARS-CoV-2 (PCR) (Not Detectd) 05/24/24 05/24/24 Range/Units 05:04 05:15 WBC (3.8-10.6) k/uL RBC (3.80-5.40) m/uL Hgb (11.4-16.0) gm/dL Hct (34.0-46.0) % MCV (80.0-100.0) fL MCH (25.0-35.0) pg MCHC (31.0-37.0) g/dL RDW (11.5-15.5) % Plt Count (150-450) k/uL MPV Neutrophils % % Lymphocytes % % Monocytes % % Eosinophils % % Basophils % % Neutrophils # (1.3-7.7) k/uL Lymphocytes # (1.0-4.8) k/uL Monocytes # (0-1.0) k/uL Eosinophils # (0-0.7) k/uL Basophils # (0-0.2) k/uL PT (10.0-12.5) sec INR (<1.2) APTT (22.0-30.0) sec Sodium (137-145) mmol/L Potassium (3.5-5.1) mmol/L Chloride (98-107) mmol/L Carbon Dioxide (22-30) mmol/L Anion Gap mmol/L BUN (7-17) mg/dL Creatinine (0.52-1.04) mg/dL Est GFR (CKD-EPI)AfAm (>60 ml/min/1.73 sqM) Est GFR (CKD-EPI)NonAf (>60 ml/min/1.73 sqM) Glucose (74-99) mg/dL Calcium (8.4-10.2) mg/dL Total Bilirubin (0.2-1.3) mg/dL AST (14-36) U/L ALT (4-34) U/L Alkaline Phosphatase (38-126) U/L Troponin I <0.012 (0.000-0.034) ng/mL NT-Pro-B Natriuret Pep pg/mL Total Protein (6.3-8.2) g/dL Albumin (3.5-5.0) g/dL Influenza Type A (PCR) Not Detected (Not Detectd) Influenza Type B (PCR) Not Detected (Not Detectd) RSV (PCR) Not Detected (Not Detectd) SARS-CoV-2 (PCR) Detected A (Not Detectd) Disposition Clinical Impression: COPD exacerbation Disposition: ADMITTED IP TO THIS HOSP Condition: Stable
[2024-05-24] MEDS ORDERED: ACETAMINOPHEN TAB 325 MG TAB PO PRN (06:41)
[2024-05-24] MEDS ORDERED: NALOXONE 0.4 MG/ML 1 ML VIAL IV PRN (06:41)
[2024-05-24] MEDS ORDERED: ALBUTEROL NEBULIZED 2.5 MG/3 ML INHALATION PRN (06:44)
[2024-05-24] MEDS ORDERED: NICOTINE 14MG/24HR PATCH TRANSDERM PRN (06:45)
[2024-05-24] MEDS ORDERED: MONTELUKAST 10 MG TAB PO PRN (06:45)
[2024-05-24] MEDS: ALPRAZolam 0.25 MG TAB PO PRN (07:18)
[2024-05-24] MEDS: carvediloL 12.5 MG TAB PO SCH (07:43)
[2024-05-24] MEDS: ALBUTEROL HFA INHALER INHALATION SCH (08:13)
[2024-05-24] MEDS: TIOTROPIUM 2.5 MCG INHALER INHALATION SCH (08:14)
[2024-05-24] MEDS: SYMBICORT 160-4.5 MCG INHALER INHALATION SCH (08:14)
[2024-05-24] MEDS: PANTOPRAZOLE 40 MG TABLET PO SCH (09:10)
[2024-05-24] MEDS: oxyCODONE-APAP 10-325MG 1 EACH TAB PO SCH (09:10)
[2024-05-24] MEDS: SPIRONOLACTONE 25 MG TAB PO SCH (09:10)
[2024-05-24] MEDS: FAMOTIDINE 20 MG TAB PO SCH (09:10)
[2024-05-24] MEDS: ATORVASTATIN 10 MG TAB PO SCH (09:10)
[2024-05-24] MEDS: CITALOPRAM HYDROBROMIDE 20 MG TAB PO SCH (09:11)
[2024-05-24] MEDS: ENOXAPARIN 40 MG/0.4 ML SYRINGE SQ SCH ×2 (09:11→12:24)
[2024-05-24] MEDS: LOSARTAN 50 MG TAB PO SCH (09:11)
--- NOTE | 2024-05-24 11:35 | P.HPIM ---
History of Present Illness Patient is a 49-year-old female with history of COPD was smoking until about a week ago came in with complaints of shortness of breath. Patient was also complaining of worsening cough. Patient is found to have COVID-19. Patient has significant rhonchi bilaterally. Patient had a Tmax of 99 degrees and chills at home. Patient is complaining of possible pleuritic chest pain. There is no evidence of pneumonia on the chest x-ray. I will obtain a procalcitonin level patient was given a dose of Rocephin and doxycycline in the ER patient is not allergic to these medications. Patient usually uses 2 L of oxygen at home presently on 3 L of oxygen. REVIEW OF SYSTEMS: All other systems are negative except those mentioned in the HPI PHYSICAL EXAMINATION: GENERAL: The patient is alert and oriented x3, not in any acute distress. Well developed, well nourished. HEENT: Pupils are round and equally reacting to light. EOMI. No scleral icterus. No conjunctival pallor. Normocephalic, atraumatic. No pharyngeal erythema. No th yromegaly. CARDIOVASCULAR: S1 and S2 present. No murmurs, rubs, or gallops. PULMONARY: Rhonchi bilaterally and expiratory wheezing ABDOMEN: Soft, nontender, nondistended, normoactive bowel sounds. No palpable organomegaly. MUSCULOSKELETAL: No joint swelling or deformity. EXTREMITIES: No cyanosis, clubbing, or pedal edema. NEUROLOGICAL: Gross neurological examination did not reveal any focal deficits. SKIN: No rashes. Assessment and plan -Acute hypoxic and hypercapnic respiratory failure on chronic hypercapnic respiratory failure: Secondary to COVID-19 infection and COPD exacerbation pat ient was started on systemic steroids inhalational treatments will obtain a procalcitonin level. 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 IBS, cellulitis of the chin, CVA about 1 year ago(no residual) History of Any Multi-Drug Resistant Organisms: MRSA Date of last positivie culture/infection: 07/2016 MDRO Source:: Chin Past Surgical History: Appendectomy, Section, Cholecystectomy, Hysterectomy, Tubal Ligation Additional Past Surgical History / Comment(s): oral surgery . Pancreas biopsy May 2015. Past Anesthesia/Blood Transfusion Reactions: No Reported Reaction Past Psychological History: ADD/ADHD, Anxiety, Bipolar, Depression Smoking Status: Current every day smoker Past Alcohol Use History: None Reported Past Drug Use History: Marijuana - Past Family History Father History Unknown: Yes Family Medical History: No Reported History Additional Family Medical History / Comment(s): Pt adopted Mother History Unknown: Yes Additional Family Medical History / Comment(s): Pt adopted Medications and Allergies Home Medications Medication Instructions Recorded Confirmed Type Spironolactone [Aldactone] 25 mg PO DAILY 02/05/17 05/24/24 History carvediloL [Coreg] 25 mg PO BID 03/26/21 05/24/24 History oxyCODONE-APAP 10-325MG [Percocet 1 tab PO TID 03/16/22 05/24/24 History 10-325 mg] Citalopram Hydrobromide [CeleXA] 60 mg PO DAILY 01/27/23 05/24/24 History Pantoprazole [Protonix] 40 mg PO DAILY 05/29/23 05/24/24 History Albuterol Inhaler [Ventolin Hfa 2 puff INHALATION RT-QID PRN 04/02/24 05/24/24 History Inhaler] Famotidine 20 mg PO BID 04/02/24 05/24/24 History Montelukast [Singulair] 10 mg PO HS PRN 04/02/24 05/24/24 History Rosuvastatin Calcium [Crestor] 5 mg PO DAILY 04/02/24 05/24/24 History Xanax(Unknown Dose) 1 tab PO DAILY PRN 04/02/24 05/24/24 History rOPINIRole HCL [Requip] 0.25 mg PO HS 04/02/24 05/24/24 History traZODone HCL [Desyrel] 50 mg PO HS 04/02/24 05/24/24 History Budesonide-Formot 160-4.5 Mcg 2 puff INHALATION RT-BID #1 each 04/06/24 05/24/24 Rx [Symbicort 160-4.5 Mcg Inhaler] Ipratropium-Albuterol Nebulize 3 ml INHALATION RT-Q4H #120 each 04/06/24 05/24/24 Rx [Duoneb 0.5 mg-3 mg/3 ml Soln] Losartan [Cozaar] 100 mg PO DAILY #30 tab 04/06/24 05/24/24 Rx Nicotine 14Mg/24Hr Patch [Habitrol] 1 patch TRANSDERM DAILY PRN 04/22/24 05/24/24 History Allergies Allergy/AdvReac Type Severity Reaction Status Date / Time adhesive Allergy Rash/Hives Verified 05/24/24 10:27 amoxicillin Allergy Anaphylaxis Verified 05/24/24 10:27 azithromycin [From Zithromax] Allergy Anaphylaxis Verified 05/24/24 10:27 cephalexin monohydrate Allergy Anaphylaxis Verified 05/24/24 10:27 [From Keflex] ciprofloxacin Allergy Anaphylaxis Verified 05/24/24 10:27 clindamycin Allergy Anaphylaxis Verified 05/24/24 10:27 Iodinated Contrast Media Allergy Anaphylaxis Verified 05/24/24 10:27 [Iodinated Contrast- Oral and IV Dye] ketorolac [From Toradol] Allergy Anaphylaxis Verified 05/24/24 10:27 levofloxacin [From Levaquin] Allergy Rash/Hives Verified 05/24/24 10:27 naproxen Allergy Anaphylaxis Verified 05/24/24 10:27 NSAIDS (Non-Steroidal Allergy Rash/Hives Verified 05/24/24 10:27 Anti-Inflamma orphenadrine [From Norflex] Allergy Anaphylaxis Verified 05/24/24 10:27 shellfish derived Allergy Anaphylaxis Verified 05/24/24 10:27 Sulfa (Sulfonamide Allergy Anaphylaxis Verified 05/24/24 10:27 Antibiotics) sulfamethoxazole Allergy Anaphylaxis Verified 05/24/24 10:27 [From Bactrim] tramadol Allergy Anaphylaxis Verified 05/24/24 10:27 trimethoprim [From Bactrim] Allergy Anaphylaxis Verified 05/24/24 10:27 Physical Exam Vitals: Vital Signs Temp Pulse Pulse Resp BP BP Pulse Ox 05/24/24 08:00 98 F 65 18 168/91 96 05/24/24 07:45 62 18 170/94 05/24/24 07:00 80 26 H 169/97 96 05/24/24 05:16 88 05/24/24 05:04 88 05/24/24 04:58 88 05/24/24 04:46 80 05/24/24 04:45 80 05/24/24 04:37 80 05/24/24 04:08 30 H 89 L 05/24/24 03:53 98.2 F 81 24 191/95 92 L Intake and Output 05/23/24 05/24/24 05/24/24 22:59 06:59 14:59 Other: Weight 81.193 kg Results CBC & Chem 7: 05/24/24 05:04 05/24/24 05:04 Labs: Abnormal Lab Results - Last 24 Hours (Table) 05/24/24 05/24/24 05/24/24 Range/Units 05:04 05:04 05:15 WBC 11.4 H (3.8-10.6) k/uL Neutrophils # 9.2 H (1.3-7.7) k/uL Chloride 95 L (98-107) mmol/L Carbon Dioxide 36 H (22-30) mmol/L BUN 24 H (7-17) mg/dL Glucose 143 H (74-99) mg/dL SARS-CoV-2 (PCR) Detected A (Not Detectd)
[2024-05-24] MEDS ORDERED: methylPREDNISolone SOD SUCCI 40 MG/ML 1 ML VIAL IV SCH (11:45)
[2024-05-24] MEDS: methylPREDNISolone SOD SUCCI 125 MG/2 ML VIAL IV SCH (12:41)
[2024-05-24] MEDS: predniSONE 20 MG TAB PO SCH (12:41)
[2024-05-24] MEDS: IPRATROPIUM-ALBUTEROL 3 ML NEB INHALATION SCH (13:50)
[2024-05-24] MEDS: HYDROmorphone 0.5 MG/0.5 ML SYRINGE IVP STA (15:26)
--- NOTE | 2024-05-24 19:10 | P.CNPUL ---
History of Present Illness Consult date: 05/24/24 Reason for consult: dyspnea History of present illness: This is a 49-year-old female patient, no history of COPD, no history of chronic smoking, came into the emergency department because of shortness of breath. Her is currently admitted for the same and he is positive for COVID-19. The patient was found also to be positive for COVID-19. No previous history of vaccination. No previous history of COVID-19 infection. She came into the emergency department because of worsening shortness of breath. She was actively bronchospastic and wheezy. Chest x-ray was done and it showed no acute cardiopulmonary abnormalities. The patient is currently on 3 L of oxygen by nasal cannula with a pulse ox of 97%. She is afebrile. Hemodynamically stable. WBC 11.4 with a hemoglobin 13 and a platelet count of 307. D-dimer is less than 0.17, electrolytes show a serum bicarb of 36, sodium of 137, chlorides 95, and the procalcitonin level is at 0.03. She is known to have other comorbidities including hypertension, hyperlipidemia, fibromyalgia, previous history of CVA and history of depression. She also suffers from rheumatoid arthritis and chronic migraines. She has irritable bowel disease. In terms of her COPD, she has been maintained on Symbicort maintenance and DuoNeb nebulized treatments [id number] on as-needed basis. Review of Systems Constitutional: Reports fatigue, Reports fever Eyes: denies as per HPI, denies blurred vision, denies bulging eye, denies decreased vision, denies diplopia, denies discharge, denies dry eye, denies irritation, denies itching, denies pain, denies photophobia, denies loss of peripheral vision, denies loss of vision, denies tunnel vision/blind spots Ears: deny: decreased hearing, ear discharge, earache, tinnitus Ears, nose, mouth and throat: Reports as per HPI Breasts: absent: as per HPI, change in shape, gynecomastia, masses, nipple discharge, pain, skin changes, swelling Cardiovascular: Reports decreased exercise tolerance, Reports dyspnea on exertion Respiratory: Reports cough, Reports dyspnea, Reports wheezing Gastrointestinal: Reports as per HPI Genitourinary: Reports as per HPI Menstruation: Reports as per HPI Musculoskeletal: Reports as per HPI Musculoskeletal: absent: ankle pain, ankle stiffness, ankle swelling, as per HPI, elbow pain, elbow stiffness, elbow swelling, foot pain, foot stiffness, foot swelling, hand pain, hand stiffness, hand swelling, hip pain, hip stiffness, hip swelling, knee pain, knee stiffness, knee swelling, shoulder pain, shoulder stiffness, shoulder swelling, wrist pain, wrist stiffness, wrist swelling Integumentary: Reports as per HPI Neurological: Reports as per HPI Psychiatric: Reports as per HPI Endocrine: Reports as per HPI, Reports fatigue Hematologic/Lymphatic: Reports as per HPI Allergic/Immunologic: Reports as per HPI Past Medical History Past Medical History: Heart Failure, COPD, CVA/TIA, Fibromyalgia, Hypertension, Pneumonia, Rheumatoid Arthritis (RA), Seizure Disorder, Syncope Additional Past Medical History / Comment(s): 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 IBS, cellulitis of the chin, CVA about 1 year ago(no residual) History of Any Multi-Drug Resistant Organisms: MRSA Date of last positivie culture/infection: 07/2016 MDRO Source:: Chin Past Surgical History: Appendectomy, Section, Cholecystectomy, Hysterectomy, Tubal Ligation Additional Past Surgical History / Comment(s): oral surgery . Pancreas biopsy May 2015. Past Anesthesia/Blood Transfusion Reactions: No Reported Reaction Past Psychological History: ADD/ADHD, Anxiety, Bipolar, Depression Additional Psychological History / Comment(s): Pt resides with her spouse and other family members. Pt states borderline personality disorder diagnosed around 2010. She has a cane and walker but does not normally use them. Occasional marijuana/edibles Smoking Status: Current every day smoker Past Alcohol Use History: None Reported Additional Past Alcohol Use History / Comment(s): Pt started smoking in 1983 and was a 3 ppd smoker but about 6 months ago cut down to 3 cigarettes a day. Patient does vape in between Past Drug Use History: Marijuana Additional Drug Use History / Comment(s): Says she occasionally has edible marijuana- a couple times within the last year. - Past Family History Father History Unknown: Yes Family Medical History: No Reported History Additional Family Medical History / Comment(s): Pt adopted Mother History Unknown: Yes Additional Family Medical History / Comment(s): Pt adopted Medications and Allergies Home Medications Medication Instructions Recorded Confirmed Type Spironolactone [Aldactone] 25 mg PO DAILY 02/05/17 05/24/24 History carvediloL [Coreg] 25 mg PO BID 03/26/21 05/24/24 History oxyCODONE-APAP 10-325MG [Percocet 1 tab PO TID 03/16/22 05/24/24 History 10-325 mg] Citalopram Hydrobromide [CeleXA] 60 mg PO DAILY 01/27/23 05/24/24 History Pantoprazole [Protonix] 40 mg PO DAILY 05/29/23 05/24/24 History Albuterol Inhaler [Ventolin Hfa 2 puff INHALATION RT-QID PRN 04/02/24 05/24/24 History Inhaler] Famotidine 20 mg PO BID 04/02/24 05/24/24 History Montelukast [Singulair] 10 mg PO HS PRN 04/02/24 05/24/24 History Rosuvastatin Calcium [Crestor] 5 mg PO DAILY 04/02/24 05/24/24 History Xanax(Unknown Dose) 1 tab PO DAILY PRN 04/02/24 05/24/24 History rOPINIRole HCL [Requip] 0.25 mg PO HS 04/02/24 05/24/24 History traZODone HCL [Desyrel] 50 mg PO HS 04/02/24 05/24/24 History Budesonide-Formot 160-4.5 Mcg 2 puff INHALATION RT-BID #1 each 04/06/24 05/24/24 Rx [Symbicort 160-4.5 Mcg Inhaler] Ipratropium-Albuterol Nebulize 3 ml INHALATION RT-Q4H #120 each 04/06/24 05/24/24 Rx [Duoneb 0.5 mg-3 mg/3 ml Soln] Losartan [Cozaar] 100 mg PO DAILY #30 tab 04/06/24 05/24/24 Rx Nicotine 14Mg/24Hr Patch [Habitrol] 1 patch TRANSDERM DAILY PRN 04/22/24 05/24/24 History Allergies Allergy/AdvReac Type Severity Reaction Status Date / Time adhesive Allergy Rash/Hives Verified 05/24/24 10:27 amoxicillin Allergy Anaphylaxis Verified 05/24/24 10:27 azithromycin [From Zithromax] Allergy Anaphylaxis Verified 05/24/24 10:27 cephalexin monohydrate Allergy Anaphylaxis Verified 05/24/24 10:27 [From Keflex] ciprofloxacin Allergy Anaphylaxis Verified 05/24/24 10:27 clindamycin Allergy Anaphylaxis Verified 05/24/24 10:27 Iodinated Contrast Media Allergy Anaphylaxis Verified 05/24/24 10:27 [Iodinated Contrast- Oral and IV Dye] ketorolac [From Toradol] Allergy Anaphylaxis Verified 05/24/24 10:27 levofloxacin [From Levaquin] Allergy Rash/Hives Verified 05/24/24 10:27 naproxen Allergy Anaphylaxis Verified 05/24/24 10:27 NSAIDS (Non-Steroidal Allergy Rash/Hives Verified 05/24/24 10:27 Anti-Inflamma orphenadrine [From Norflex] Allergy Anaphylaxis Verified 05/24/24 10:27 shellfish derived Allergy Anaphylaxis Verified 05/24/24 10:27 Sulfa (Sulfonamide Allergy Anaphylaxis Verified 05/24/24 10:27 Antibiotics) sulfamethoxazole Allergy Anaphylaxis Verified 05/24/24 10:27 [From Bactrim] tramadol Allergy Anaphylaxis Verified 05/24/24 10:27 trimethoprim [From Bactrim] Allergy Anaphylaxis Verified 05/24/24 10:27 Physical Exam Vitals: Vital Signs Temp Pulse Pulse Pulse Resp BP BP 05/24/24 16:19 05/24/24 15:03 98.2 F 67 18 05/24/24 08:00 98 F 65 18 168/91 05/24/24 07:45 62 18 170/94 05/24/24 07:00 80 26 H 169/97 05/24/24 05:16 88 05/24/24 05:04 88 05/24/24 04:58 88 05/24/24 04:46 80 05/24/24 04:45 80 05/24/24 04:37 80 05/24/24 04:08 30 H 05/24/24 03:53 98.2 F 81 24 191/95 BP Pulse Ox 05/24/24 16:19 97 05/24/24 15:03 165/97 98 05/24/24 08:00 96 05/24/24 07:45 05/24/24 07:00 96 05/24/24 05:16 05/24/24 05:04 05/24/24 04:58 05/24/24 04:46 05/24/24 04:45 05/24/24 04:37 05/24/24 04:08 89 L 05/24/24 03:53 92 L Intake and Output 05/24/24 05/24/24 05/24/24 06:59 14:59 22:59 Other: Weight 81.193 kg 81.193 kg The patient appeared well nourished and normally developed. Vital signs as documented. The patient is currently on 3 L O2 nasal cannula, body mass index is 35 Head exam is unremarkable. No scleral icterus or corneal arcus noted. Neck is without jugular venous distension, thyromegaly, or carotid bruits. Carotid upstrokes are brisk bilaterally. Lungs a are diminished breath sounds bilaterally along with scattered expiratory wheezes throughout the lung daniel Cardiac exam reveals the PMI to be normally sized and situated. Rhythm is regular. First and second heart sounds normal. No murmurs, rubs or gallops. Abdominal exam reveals normal bowel sounds, no masses, no organomegaly and no aortic enlargement. Extremities are nonedematous and both femoral and pedal pulses are normal. Examination of the skin revealed no evidence of significant rashes, suspicious appearing nevi or other concerning lesions. Neurologically, the patient is awake and alert and the patient does not have any focal neurological deficit. Cranial nerves are essentially intact. Results - Laboratory Findings CBC and BMP: 05/24/24 05:04 05/24/24 05:04 PT/INR, D-dimer PT 10.3 sec (10.0-12.5) 05/24/24 05:04 INR 0.9 (<1.2) 05/24/24 05:04 D-Dimer <0.17 mg/L FEU (<0.60) 05/24/24 11:47 Abnormal lab findings: Abnormal Labs 05/24/24 05/24/24 05/24/24 05:04 05:04 05:15 WBC 11.4 H Neutrophils # 9.2 H Chloride 95 L Carbon Dioxide 36 H BUN 24 H Glucose 143 H SARS-CoV-2 (PCR) Detected A - Diagnostic Findings Chest x-ray: image reviewed Assessment and Plan Plan: Acute exacerbation of COPD with secondary shortness of breath Acute hypoxic respiratory failure secondary [employer] exacerbation, currently on 3 L and the patient has been oxygen dependent at 2 L/min nasal cannula on outpatient basis. She is a chronic smoker. Acute COVID-19 infection, no evidence of pneumonia, D-dimer is low, no previous vaccination, no previous infections Acute on chronic shortness of breath secondary to above Left upper lobe atelectasis, noted on a previous CAT scan of the chest that was done on 09/23/2022. Fibromyalgia Hypertension Hyperlipidemia History of seizure disorder History of CVA Fibromyalgia Irritable bowel disease Chronic pancreatic insufficiency/fibrosis Migraines Nephrolithiasis Rheumatoid arthritis Plan Agree on the current treatment Oxygen supplementation Procalcitonin level is low D-dimer is low No need for antibiotics Continue steroids Continue Symbicort and Spiriva Albuterol 4 times a day HFA [id number] Will need a follow-up CAT scan of the chest regarding the left upper lobe atelectasis that was noted earlier on an earlier CAT scan of the chest from 2022 Lovenox 40 mg subcu for DVT prophylaxis Resume home medications Will follow
[2024-05-24] MEDS: traZODone HCL 50 MG TAB PO SCH (21:43)
[2024-05-24] MEDS: diphenhydrAMINE 25 MG CAP PO PRN (22:05)
[2024-05-25 10:19] LABS: HCT 41.4 % (37.2-46.3); HGB 12.6 g/dL (12.0-15.0); MCHC 30.4 g/dL (32.0-37.0); MCV 88.8 FL (80.0-97.0); Mean Platelet Volume 9.4 FL (9.5-12.2); NRBC Per 100 WBC 0 X 10*3/uL (0.00-0.01); Platelet Count 305 X 10*3/uL (140-440); RBC 4.66 X 10*6/uL (4.10-5.20); RDW 13.2 % (11.5-14.5); WBC 15.21 X 10*3/uL (4.50-10.00)
[2024-05-25 10:37] LABS: BUN/Creat Ratio 37.17 Ratio (12.00-20.00); Blood Urea Nitrogen 22.3 mg/dL (9.0-27.0); Calcium 9.2 mg/dL (8.7-10.3); Carbon Dioxide 32.6 mmol/L (21.6-31.8); Chloride 93 mmol/L (96-109); Glucose 210 mg/dL (70-110); Magnesium 1.6 mg/dL (1.5-2.4); Potassium 4.9 mmol/L (3.5-5.5); Sodium 137 mmol/L (135-145)
--- NOTE | 2024-05-25 10:45 | CT ---
EXAMINATION TYPE: CT chest wo con CT DLP: 474.20 mGycm, Automated exposure control for dose reduction was used. DATE OF EXAM: 05/25/2024 10:33 AM COMPARISON: Chest radiograph 04/23/2024, CT chest 09/23/2022 CLINICAL INDICATION:Female, 49 years old with history of follow up/ rule out; [facility], TECHNIQUE: Multiple axial images were obtained through the chest without IV contrast. Lack of IV or o ral contrast limits evaluation of solid and hollow organ viscera. . Coronal and sagittal reformats re viewed. FINDINGS: LUNGS/ PLEURA: No pleural effusion, pneumothorax, focal consolidation. Linear scarring or atelectasis within the lingula. Bilateral lower lobe minimal linear scarring. No suspicious pulmonary nodule or mass. AIRWAY: Patent and unremarkable.. HEART: Size within normal limits. No pericardial effusion. MEDIASTINUM: No gross evidence of adenopathy. VASCULATURE: No aortic aneurysm. MUSCULOSKELETAL: Mild disc degeneration changes are present throughout the thoracolumbar spine. No ac [place] band osseous abnormality. SOFT TISSUES/LYMPH NODES: Unremarkable. LOWER NECK: No significant findings. UPPER ABDOMEN: The gallbladder is surgically absent. IMPRESSION: 1. No CT evidence for an acute thoracic process. 2. Similar lingular atelectasis and scarring. [facility], , 05/25/2024 10:43 AM
[2024-05-25] MEDS: HYDROmorphone 0.5 MG/0.5 ML SYRINGE IVP STA (13:39)
--- NOTE | 2024-05-25 16:04 | P.PN ---
Subjective Progress Note Date: 05/25/24 This is a 49-year-old female patient, no history of COPD, no history of chronic smoking, came into the emergency department because of shortness of breath. Her is currently admitted for the same and he is positive for COVID-19. The patient was found also to be positive for COVID-19. No previous history of vaccination. No previous history of COVID-19 infection. She came into the emergency department because of worsening shortness of breath. She was actively bronchospastic and wheezy. Chest x-ray was done and it showed no acute cardiopulmonary abnormalities. The patient is currently on 3 L of oxygen by nasal cannula with a pulse ox of 97%. She is afebrile. Hemodynamically stable. WBC 11.4 with a hemoglobin 13 and a platelet count of 307. D-dimer is less than 0.17, electrolytes show a serum bicarb of 36, sodium of 137, chlorides 95, and the procalcitonin level is at 0.03. She is known to have other comorbidities including hypertension, hyperlipidemia, fibromyalgia, previous history of CVA and history of depression. She also suffers from rheumatoid arthritis and chronic migraines. She has irritable bowel disease. In terms of her COPD, she has been maintained on Symbicort maintenance and DuoNeb nebulized treatments [id number] on as-needed basis. On 05/25/2024, the patient remains bronchospastic and wheezy and short of breath. She is complaining of scattered chest wall pain and she is requesting Dilaudid as the pain is quite extensive. As stated earlier, the patient is in acute exacerbation related to COVID-19 infection and the patient remains actively bronchospastic and wheezy. Her is also hospitalized for the same problem. She remains on Spiriva, Symbicort as maintenance and the patient is receiving albuterol HFA 4 times a day and IV Solu-Medrol 60 mg every 6 hours. The white cell count of 15.2 with a hemoglobin 12.6. Electrolytes are stable with a serum bicarb of 32, the BUN is at 23 with a creatinine of 0.6. Procalcitonin level is at 0.03. The patient is on Lovenox for DVT prophylaxis. No nausea. No emesis. No altered mentation. Home medications have been resumed. Objective - Vital Signs Vital signs: Vital Signs Temp 97.8 F 05/25/24 07:00 Pulse 65 05/25/24 11:05 Resp 18 05/25/24 11:05 BP 159/86 05/25/24 07:00 Pulse Ox 96 05/25/24 09:19 FiO2 Intake & Output 05/24/24 05/25/24 05/25/24 18:59 06:59 18:59 Weight 81.193 kg Other: # Voids 1 1 - Exam The patient appeared well nourished and normally developed. Vital signs as documented. The patient is currently on 3 L O2 nasal cannula, body mass index is 35 Head exam is unremarkable. No scleral icterus or corneal arcus noted. Neck is without jugular venous distension, thyromegaly, or carotid bruits. Carotid upstrokes are brisk bilaterally. Lungs a are diminished breath sounds bilaterally along with scattered expiratory wheezes throughout the lung daniel Cardiac exam reveals the PMI to be normally sized and situated. Rhythm is regular. First and second heart sounds normal. No murmurs, rubs or gallops. Abdominal exam reveals normal bowel sounds, no masses, no organomegaly and no aortic enlargement. Extremities are nonedematous and both femoral and pedal pulses are normal. Examination of the skin revealed no evidence of significant rashes, suspicious appearing nevi or other concerning lesions. Neurologically, the patient is awake and alert and the patient does not have any focal neurological deficit. Cranial nerves are essentially intact. - Labs CBC & Chem 7: 05/25/24 06:30 05/25/24 06:30 Labs: Abnormal Lab Results - Last 24 Hours (Table) 05/25/24 05/25/24 Range/Units 06:30 06:30 WBC 15.21 H (4.50-10.00) X 10*3/uL MCHC 30.4 L (32.0-37.0) g/dL MPV 9.4 L (9.5-12.2) FL Chloride 93 L (96-109) mmol/L Carbon Dioxide 32.6 H (21.6-31.8) mmol/L BUN/Creatinine Ratio 37.17 H (12.00-20.00) Ratio Glucose 210 H (70-110) mg/dL Assessment and Plan Plan: Acute exacerbation of COPD with secondary shortness of breath Acute hypoxic respiratory failure secondary [employer] exacerbation, currently on 3 L and the patient has been oxygen dependent at 2 L/min nasal cannula on outpatient basis. She is a chronic smoker. Acute COVID-19 infection, no evidence of pneumonia, D-dimer is low, no previous vaccination, no previous infections Acute on chronic shortness of breath secondary to above Left upper lobe atelectasis, noted on a previous CAT scan of the chest that was done on 09/23/2022. Fibromyalgia Hypertension Hyperlipidemia History of seizure disorder History of CVA Fibromyalgia Irritable bowel disease Chronic pancreatic insufficiency/fibrosis Migraines Nephrolithiasis Rheumatoid arthritis Plan Limited improvement compared to yesterday and the patient will be kept on the same treatment. Add Dilaudid 0.5 mg x 1 for skeletal chest wall pain. The patient is also on Percocet. Agree on the current treatment Oxygen supplementation Procalcitonin level is low D-dimer is low No need for antibiotics Continue steroids Continue Symbicort and Spiriva Albuterol 4 times a day HFA [id number] Will need a follow-up CAT scan of the chest regarding the left upper lobe atelectasis that was noted earlier on an earlier CAT scan of the chest from 2022 Lovenox 40 mg subcu for DVT prophylaxis Resume home medications Will follow
--- NOTE | 2024-05-26 06:43 | P.PN ---
Subjective Progress Note Date: 05/25/24 Patient is a 49-year-old female with history of COPD was smoking until about a week ago came in with complaints of shortness of breath. Patient was also complaining of worsening cough. Patient is found to have COVID-19. Patient has significant rhonchi bilaterally. Patient had a Tmax of 99 degrees and chills at home. Patient is complaining of possible pleuritic chest pain. There is no evidence of pneumonia on the chest x-ray. I will obtain a procalcitonin level patient was given a dose of Rocephin and doxycycline in the ER patient is not allergic to these medications. Patient usually uses 2 L of oxygen at home presently on 3 L of oxygen. 05/25/2024 Patient is seen in follow-up currently sleeping although arousable continued on IV steroids along with inhalers. Procalcitonin is low with no need for antibiotics and will continue current regimen. Patient is chronically wearing 2 L at home although presently at 3 L and oxygen saturations have been above 94%. Patient does have chronic COPD. Family is also hospitalized at this time with acute COVID-19 infection. Patient is afebrile continues to report chest wall pain and extensive coughing and reports to being dyspneic with exertion more so than normal. Encouraged increase activity as tolerated. Recommend limiting IV narcotic use as patient takes Percocets at home. Those have been resumed. Review of systems: Constitutional: reports of fatigue, no fever, or chills Cardiovascular: No reports of chest pain or palpitations Respiratory: reports of continued shortness of breath and continued cough GI: No reports of nausea, vomiting, or diarrhea : No reports of dysuria or retention Neurovascular: No reports of weakness or numbness PHYSICAL EXAMINATION: GENERAL: The patient is alert and oriented x3, not in any acute distress. Well developed, appears older than stated age, obese, unkempt HEENT: Pupils are round and equally reacting to light. EOMI. No scleral icterus. No conjunctival pallor. Normocephalic, atraumatic. No pharyngeal erythema. No thyromegaly. CARDIOVASCULAR: S1 and S2 muffled PULMONARY: Rhonchi bilaterally and expiratory wheezing ABDOMEN: Soft, obese, nontender, nondistended, normoactive bowel sounds. No palpable organomegaly. MUSCULOSKELETAL: No joint swelling or deformity. EXTREMITIES: No cyanosis, clubbing, or pedal edema. NEUROLOGICAL: Gross neurological examination did not reveal any focal deficits. SKIN: No rashes. Assessment: -Acute hypoxic and hypercapnic respiratory failure on chronic hypercapnic respiratory failure: Secondary to COVID-19 infection and COPD exacerbation -COPD with acute exacerbation -Pleuritic chest pain: Secondary to cough, D-dimer is negative -Fibromyalgia -Hypertension -Hyperlipidemia -Seizure disorder -CVA-TIA in the past -Depression -DVT prophylaxis: Lovenox -GI prophylaxis -Obesity with a BMI 35.0 -Full code Plan: Patient is continued on inhalational treatments via inhalers along with IV steroids Pulmonary following continuing current regimen Procalcitonin was low and does not require antibiotics. Patient did receive a few doses of antibiotics on admission Patient continues to report chest wall pain, D-dimer was negative Patient chronically wears 2 L outpatient and currently using 3 L, recommend weaning FiO2 as tolerated. Of note patient's oxygen saturations have been above 94% while on 3 L. Okay to wean to 2 L although patient reports significant shortness of breath when doing so Encouraged increase activity as tolerated and getting up out of the bed more often Consider possible discharge planning in the next 24 to 48 hours once cleared by pulmonary Overall prognosis is guarded The impression and plan of care has been dictated by Naz Iglesias, Nurse Practitioner as directed. Dr. Abner MD I have performed a history and examination and MDM of this patient, discussed the same with the dictator, and agree with the dictator's assessment and plan as written ,documented as a scribe. Based on total visit time, I have performed more than 50% of the visit. Objective - Vital Signs Vital signs: Vital Signs Temp 98.4 F 05/26/24 02:00 Pulse 76 05/26/24 02:00 Resp 18 05/26/24 02:00 BP 144/83 05/26/24 02:00 Pulse Ox 94 L 05/26/24 02:00 FiO2 Intake & Output 05/25/24 05/25/24 05/26/24 06:59 18:59 06:59 Other: Voiding Method Toilet # Voids 1 2 2 - Labs CBC & Chem 7: 05/25/24 06:30 05/25/24 06:30 Labs: Abnormal Lab Results - Last 24 Hours (Table) 05/25/24 05/25/24 Range/Units 06:30 06:30 WBC 15.21 H (4.50-10.00) X 10*3/uL MCHC 30.4 L (32.0-37.0) g/dL MPV 9.4 L (9.5-12.2) FL Chloride 93 L (96-109) mmol/L Carbon Dioxide 32.6 H (21.6-31.8) mmol/L BUN/Creatinine Ratio 37.17 H (12.00-20.00) Ratio Glucose 210 H (70-110) mg/dL
[2024-05-26] MEDS: oxyCODONE-APAP 10-325MG 1 EACH TAB PO PRN (13:04)
--- NOTE | 2024-05-26 15:25 | P.PN ---
Subjective Progress Note Date: 05/26/24 Interval History: Patient is a 49-year-old female with history of COPD was smoking until about a week ago came in with complaints of shortness of breath. Patient was also complaining of worsening cough. Patient is found to have COVID-19. Patient has significant rhonchi bilaterally. Patient had a Tmax of 99 degrees and chills at home. Patient is complaining of possible pleuritic chest pain. There is no evidence of pneumonia on the chest x-ray. I will obtain a procalcitonin level patient was given a dose of Rocephin and doxycycline in the ER patient is not allergic to these medications. Patient usually uses 2 L of oxygen at home presently on 3 L of oxygen. 05/25/2024 Patient is seen in follow-up currently sleeping although arousable continued on IV steroids along with inhalers. Procalcitonin is low with no need for antibiotics and will continue current regimen. Patient is chronically wearing 2 L at home although presently at 3 L and oxygen saturations have been above 94%. Patient does have chronic COPD. Family is also hospitalized at this time with acute COVID-19 infection. Patient is afebrile continues to report chest wall pain and extensive coughing and reports to being dyspneic with exertion more so than normal. Encouraged increase activity as tolerated. Recommend limiting IV narcotic use as patient takes Percocets at home. Those have been resumed. 05/26/2024atient was seen and examined today. Complaining of generalized bodyaches, cough, shortness of breath, wheezing. Currently on room air, remained afebrile. WBCs 15.2, hemoglobin 12%, platelet 305. BMP unremarkable, CO2 32.6. Magnesium 1.6. Continue inhalers, currently on Solu-Medrol IV, pulmonary consulted and on board. Assessment and plan: -Acute on chronic hypoxic and hypercapnic respiratory failure on chronic hypercapnic respiratory failure: 2L O2 baseline Secondary to COVID-19 infection and COPD exacerbation -COPD with acute exacerbation -Pleuritic chest pain: Secondary to cough, D-dimer is negative -Fibromyalgia -Hypertension -Hyperlipidemia -Seizure disorder -CVA-TIA in the past -Depression -DVT prophylaxis: Lovenox -GI prophylaxis -Obesity with a BMI 35.0 -Full code Plan: Patient is continued on inhalational treatments via inhalers along with IV steroids Pulmonary following continuing current regimen Procalcitonin was low and does not require antibiotics. Patient did receive a few doses of antibiotics on admission Patient continues to report chest wall pain, D-dimer was negative Patient chronically wears 2 L outpatient and currently using 3 L, recommend weaning FiO2 as tolerated. Of note patient's oxygen saturations have been above 94% while on 3 L. Okay to wean to 2 L although patient reports significant shortness of breath when doing so Encouraged increase activity as tolerated and getting up out of the bed more often Consider possible discharge planning in the next 24 to 48 hours once cleared by pulmonary DVT prophylaxis: Subcutaneous Lovenox Monitor vital signs and labs Labs and medication were reviewed. Continue same treatment. Further recommendations as per clinical course of the patient PHYSICAL EXAMINATION: GENERAL: The patient is A&O x3, NAD HEENT: EOMI, Sclerae anicteric, Moist Mucous membranes Neck: Supple, Non tender, No JVD PULMONARY: Decreased breath sound bilaterally, bilateral expiratory wheezes.. CARDIOVASCULAR: S1, S2 present. No murmurs, rubs, or gallops. ABDOMEN: Soft, nontender, nondistended, normoactive bowel sounds. No guarding or rebound tenderness. MUSCULOSKELETAL: No edema, No cyanosis. No clubbing. Normal ROM. Intact peripheral pulses. EXTREMITIES: No cyanosis, clubbing, or pedal edema. NEUROLOGICAL: CN 2-12 grossly intact. No FND Skin: No Rash REVIEW OF SYSTEMS: CONSTITUTIONAL: Complains of fatigue. Generalized bodyaches. CARDIOVASCULAR: No chest pain, palpitations or syncope. PULMONARY: Complains of cough, wheezing, shortness of breath. GASTROINTESTINAL: No nausea, vomiting, diarrhea, abdominal pain. : No Dysuria, urgency, frequency. Extremities: No edema. NEUROLOGICAL: No headaches, no weakness, or numbness Dictation was produced using [employer] dictation software. please excuse any gra mmatical, word or spelling errors. Objective - Vital Signs Vital signs: Vital Signs Temp 98.0 F 05/26/24 15:00 Pulse 78 05/26/24 15:00 Resp 16 05/26/24 15:00 BP 163/91 05/26/24 15:00 Pulse Ox 95 05/26/24 15:00 FiO2 Intake & Output 05/25/24 05/26/24 05/26/24 18:59 06:59 18:59 Intake Total 118 Balance 118 Intake: Oral 118 Other: Voiding Method Toilet Toilet # Voids 2 2 2 - Labs CBC & Chem 7: 05/25/24 06:30 05/25/24 06:30
--- NOTE | 2024-05-26 15:37 | P.PN ---
Subjective Progress Note Date: 05/26/24 This is a 49-year-old female patient, no history of COPD, no history of chronic smoking, came into the emergency department because of shortness of breath. Her is currently admitted for the same and he is positive for COVID-19. The patient was found also to be positive for COVID-19. No previous history of vaccination. No previous history of COVID-19 infection. She came into the emergency department because of worsening shortness of breath. She was actively bronchospastic and wheezy. Chest x-ray was done and it showed no acute cardiopulmonary abnormalities. The patient is currently on 3 L of oxygen by nasal cannula with a pulse ox of 97%. She is afebrile. Hemodynamically stable. WBC 11.4 with a hemoglobin 13 and a platelet count of 307. D-dimer is less than 0.17, electrolytes show a serum bicarb of 36, sodium of 137, chlorides 95, and the procalcitonin level is at 0.03. She is known to have other comorbidities including hypertension, hyperlipidemia, fibromyalgia, previous history of CVA and history of depression. She also suffers from rheumatoid arthritis and chronic migraines. She has irritable bowel disease. In terms of her COPD, she has been maintained on Symbicort maintenance and DuoNeb nebulized treatments [id number] on as-needed basis. On 05/25/2024, the patient remains bronchospastic and wheezy and short of breath. She is complaining of scattered chest wall pain and she is requesting Dilaudid as the pain is quite extensive. As stated earlier, the patient is in acute exacerbation related to COVID-19 infection and the patient remains actively bronchospastic and wheezy. Her is also hospitalized for the same problem. She remains on Spiriva, Symbicort as maintenance and the patient is receiving albuterol HFA 4 times a day and IV Solu-Medrol 60 mg every 6 hours. The white cell count of 15.2 with a hemoglobin 12.6. Electrolytes are stable with a serum bicarb of 32, the BUN is at 23 with a creatinine of 0.6. Procalcitonin level is at 0.03. The patient is on Lovenox for DVT prophylaxis. No nausea. No emesis. No altered mentation. Home medications have been resumed. On 05/26/2024, the patient is being seen for a follow-up. The patient is still having difficulty breathing, the patient remains bronchospastic, and wheezy. Limited improvement since yesterday. No fever. No chills. She has been on on albuterol HFA 4 times a day [id number], she is also on Spiriva and Symbicort. She is on Robitussin DM. White cell count of 15, hemoglobin 12.6, electrolytes showing chronic metabolic alkalosis with a serum bicarb of 32. No nausea. No vomiting. No diarrhea. No abdominal pain. No altered mentation. Objective - Vital Signs Vital signs: Vital Signs Temp 97.9 F 05/26/24 07:00 Pulse 73 05/26/24 07:00 Resp 18 05/26/24 07:00 BP 174/92 05/26/24 07:00 Pulse Ox 98 05/26/24 07:00 FiO2 Intake & Output 05/25/24 05/26/24 05/26/24 18:59 06:59 18:59 Other: Voiding Method Toilet Toilet # Voids 2 2 - Exam The patient appeared well nourished and normally developed. Vital signs as documented. The patient is currently on 3 L O2 nasal cannula, body mass index is 35 Head exam is unremarkable. No scleral icterus or corneal arcus noted. Neck is without jugular venous distension, thyromegaly, or carotid bruits. Carotid upstrokes are brisk bilaterally. Lungs a are diminished breath sounds bilaterally along with scattered expiratory wheezes throughout the lung daniel Cardiac exam reveals the PMI to be normally sized and situated. Rhythm is regular. First and second heart sounds normal. No murmurs, rubs or gallops. Abdominal exam reveals normal bowel sounds, no masses, no organomegaly and no aortic enlargement. Extremities are nonedematous and both femoral and pedal pulses are normal. Examination of the skin revealed no evidence of significant rashes, suspicious appearing nevi or other concerning lesions. Neurologically, the patient is awake and alert and the patient does not have any focal neurological deficit. Cranial nerves are essentially intact. 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 She is a chronic smoker. Acute COVID-19 infection, no evidence of pneumonia, D-dimer is low, no previous vaccination, no previous infections Acute on chronic shortness of breath secondary to above Left upper lobe atelectasis, noted on a previous CAT scan of the chest that was done on 09/23/2022. Fibromyalgia Hypertension Hyperlipidemia History of seizure disorder History of CVA Fibromyalgia Irritable bowel disease Chronic pancreatic insufficiency/fibrosis Migraines Nephrolithiasis Rheumatoid arthritis Plan Clinically unchanged and will continue same treatment Oxygen supplementation Procalcitonin level is low D-dimer is low No need for antibiotics Continue steroids Continue Symbicort and Spiriva Albuterol 4 times a day HFA [id number] Will need a follow-up CAT scan of the chest regarding the left upper lobe atelectasis that was noted earlier on an earlier CAT scan of the chest from 2022 Lovenox 40 mg subcu for DVT prophylaxis Resume home medications Will follow
--- NOTE | 2024-05-27 10:59 | P.PN ---
Subjective Progress Note Date: 05/27/24 This is a 49-year-old female patient, no history of COPD, no history of chronic smoking, came into the emergency department because of shortness of breath. Her is currently admitted for the same and he is positive for COVID-19. The patient was found also to be positive for COVID-19. No previous history of vaccination. No previous history of COVID-19 infection. She came into the emergency department because of worsening shortness of breath. She was actively bronchospastic and wheezy. Chest x-ray was done and it showed no acute cardiopulmonary abnormalities. The patient is currently on 3 L of oxygen by nasal cannula with a pulse ox of 97%. She is afebrile. Hemodynamically stable. WBC 11.4 with a hemoglobin 13 and a platelet count of 307. D-dimer is less than 0.17, electrolytes show a serum bicarb of 36, sodium of 137, chlorides 95, and the procalcitonin level is at 0.03. She is known to have other comorbidities including hypertension, hyperlipidemia, fibromyalgia, previous history of CVA and history of depression. She also suffers from rheumatoid arthritis and chronic migraines. She has irritable bowel disease. In terms of her COPD, she has been maintained on Symbicort maintenance and DuoNeb nebulized treatments [id number] on as-needed basis. On 05/25/2024, the patient remains bronchospastic and wheezy and short of breath. She is complaining of scattered chest wall pain and she is requesting Dilaudid as the pain is quite extensive. As stated earlier, the patient is in acute exacerbation related to COVID-19 infection and the patient remains actively bronchospastic and wheezy. Her is also hospitalized for the same problem. She remains on Spiriva, Symbicort as maintenance and the patient is receiving albuterol HFA 4 times a day and IV Solu-Medrol 60 mg every 6 hours. The white cell count of 15.2 with a hemoglobin 12.6. Electrolytes are stable with a serum bicarb of 32, the BUN is at 23 with a creatinine of 0.6. Procalcitonin level is at 0.03. The patient is on Lovenox for DVT prophylaxis. No nausea. No emesis. No altered mentation. Home medications have been resumed. On 05/26/2024, the patient is being seen for a follow-up. The patient is still having difficulty breathing, the patient remains bronchospastic, and wheezy. Limited improvement since yesterday. No fever. No chills. She has been on on albuterol HFA 4 times a day [id number], she is also on Spiriva and Symbicort. She is on Robitussin DM. White cell count of 15, hemoglobin 12.6, electrolytes showing chronic metabolic alkalosis with a serum bicarb of 32. No nausea. No vomiting. No diarrhea. No abdominal pain. No altered mentation. On 05/27/2024, the patient reports some improvement and the patient seems to be less bronchospastic and wheezy compared to yesterday. However, the patient continues to have shortness of breath. I would recommend continuing same medication including systemic steroids for today. No other significant events overnight. The patient remains on 3 L of oxygen by nasal cannula with a pulse ox of 98%. Oxygen will be gradually weaned off. Objective - Vital Signs Vital signs: Vital Signs Temp 98.6 F 05/27/24 07:00 Pulse 67 05/27/24 07:00 Resp 18 05/27/24 07:00 BP 180/83 05/27/24 07:00 Pulse Ox 98 05/27/24 08:29 FiO2 Intake & Output 05/26/24 05/27/24 05/27/24 18:59 06:59 18:59 Intake Total 236 118 Balance 236 118 Intake: Oral 236 118 Other: Voiding Method Toilet Toilet Toilet # Voids 2 2 - Exam The patient appeared well nourished and normally developed. Vital signs as documented. The patient is currently on 3 L O2 nasal cannula, body mass index is 35 Head exam is unremarkable. No scleral icterus or corneal arcus noted. Neck is without jugular venous distension, thyromegaly, or carotid bruits. Carotid upstrokes are brisk bilaterally. Lungs a are diminished breath sounds bilaterally along with scattered expiratory wheezes throughout the lung daniel Cardiac exam reveals the PMI to be normally sized and situated. Rhythm is regular. First and second heart sounds normal. No murmurs, rubs or gallops. Abdominal exam reveals normal bowel sounds, no masses, no organomegaly and no aortic enlargement. Extremities are nonedematous and both femoral and pedal pulses are normal. Examination of the skin revealed no evidence of significant rashes, suspicious appearing nevi or other concerning lesions. Neurologically, the patient is awake and alert and the patient does not have any focal neurological deficit. Cranial nerves are essentially intact. 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 She is a chronic smoker. Acute COVID-19 infection, no evidence of pneumonia, D-dimer is low, no previous vaccination, no previous infections Acute on chronic shortness of breath secondary to above Left upper lobe atelectasis, noted on a previous CAT scan of the chest that was done on 09/23/2022. Fibromyalgia Hypertension Hyperlipidemia History of seizure disorder History of CVA Fibromyalgia Irritable bowel disease Chronic pancreatic insufficiency/fibrosis Migraines Nephrolithiasis Rheumatoid arthritis Plan Clinically unchanged and will continue same treatment, will start tapering steroids as of tomorrow based on her condition. Oxygen supplementation Procalcitonin level is low D-dimer is low No need for antibiotics Continue steroids Continue Symbicort and Spiriva Albuterol 4 times a day HFA [id number] Will need a follow-up CAT scan of the chest regarding the left upper lobe atelectasis that was noted earlier on an earlier CAT scan of the chest from 2022 Lovenox 40 mg subcu for DVT prophylaxis Resume home medications Will follow
[2024-05-27] MEDS: amLODIPine 10 MG TAB PO SCH (11:00)
[2024-05-27] MEDS: ONDANSETRON 4 MG/2 ML VIAL IVP PRN (11:00)
[2024-05-27] MEDS ORDERED: Magnesium Replacement Protocol 1 EACH MISC MISCELLANE PRN ×2 (13:11→13:19)
--- NOTE | 2024-05-27 13:11 | P.PN ---
Subjective Progress Note Date: 05/27/24 Interval History: Patient is a 49-year-old female with history of COPD was smoking until about a week ago came in with complaints of shortness of breath. Patient was also complaining of worsening cough. Patient is found to have COVID-19. Patient has significant rhonchi bilaterally. Patient had a Tmax of 99 degrees and chills at home. Patient is complaining of possible pleuritic chest pain. There is no evidence of pneumonia on the chest x-ray. I will obtain a procalcitonin level patient was given a dose of Rocephin and doxycycline in the ER patient is not allergic to these medications. Patient usually uses 2 L of oxygen at home presently on 3 L of oxygen. 05/25/2024 Patient is seen in follow-up currently sleeping although arousable continued on IV steroids along with inhalers. Procalcitonin is low with no need for antibiotics and will continue current regimen. Patient is chronically wearing 2 L at home although presently at 3 L and oxygen saturations have been above 94%. Patient does have chronic COPD. Family is also hospitalized at this time with acute COVID-19 infection. Patient is afebrile continues to report chest wall pain and extensive coughing and reports to being dyspneic with exertion more so than normal. Encouraged increase activity as tolerated. Recommend limiting IV narcotic use as patient takes Percocets at home. Those have been resumed. 05/26/2024atient was seen and examined today. Complaining of generalized bodyaches, cough, shortness of breath, wheezing. Currently on room air, remained afebrile. WBCs 15.2, hemoglobin 12%, platelet 305. BMP unremarkable, CO2 32.6. Magnesium 1.6. Continue inhalers, currently on Solu-Medrol IV, pulmonary consulted and on board. 05/27/2024 Patient reported mild improvement as compared to yesterday, still complaining of shortness, wheezing slightly less than yesterday. Pulmonary following, continue current treatment per pulmonary, continue IV Solu-Medrol. Patient currently on 2 L oxygen, saturating more than 95%. Afebrile, heart rate 76, respiratory rate 18, blood pressure 180/83, started on Norvasc. BCs 15.2, hemoglobin stable 12.6, platelet 305, BMP unremarkable. Magnesium 1.6. Assessment and plan: -Acute on chronic hypoxic and hypercapnic respiratory failure: 2L O2 baseline Secondary to COVID-19 infection and COPD exacerbation -COPD with acute exacerbation -Pleuritic chest pain: Secondary to cough, D-dimer is negative -Fibromyalgia -Hypertension -Hyperlipidemia -Seizure disorder -CVA-TIA in the past -Depression -DVT prophylaxis: Lovenox -GI prophylaxis -Obesity with a BMI 35.0 -Full code Plan: Patient is continued on inhalational treatments via inhalers along with IV steroids Pulmonary following continuing current regimen Procalcitonin was low and does not require antibiotics. Patient did receive a few doses of antibiotics on admission Patient continues to report chest wall pain, D-dimer was negative Patient chronically wears 2 L outpatient and currently using 3 L, recommend weaning FiO2 as tolerated. Of note patient's oxygen saturations have been above 94% while on 3 L. Okay to wean to 2 L although patient reports significant shortness of breath when doing so Encouraged increase activity as tolerated and getting up out of the bed more often Blood pressure evaluatedcontinue Coreg, Aldactone, losartan, added Norvasc. DVT prophylaxis: Subcutaneous Lovenox Monitor vital signs and labs Labs and medication were reviewed. Continue same treatment. Further recommendations as per clinical course of the patient PHYSICAL EXAMINATION: GENERAL: The patient is A&O x3, NAD HEENT: EOMI, Sclerae anicteric, Moist Mucous membranes Neck: Supple, Non tender, No JVD PULMONARY: Decreased breath sound bilaterally, bilateral expiratory wheezes.. CARDIOVASCULAR: S1, S2 present. No murmurs, rubs, or gallops. ABDOMEN: Soft, nontender, nondistended, normoactive bowel sounds. No guarding or rebound tenderness. MUSCULOSKELETAL: No edema, No cyanosis. No clubbing. Normal ROM. Intact peripheral pulses. EXTREMITIES: No cyanosis, clubbing, or pedal edema. NEUROLOGICAL: CN 2-12 grossly intact. No FND Skin: No Rash REVIEW OF SYSTEMS: CONSTITUTIONAL: Complains of fatigue. Generalized bodyaches. CARDIOVASCULAR: No chest pain, palpitations or syncope. PULMONARY: Complains of cough, wheezing, shortness of breath. GASTROINTESTINAL: No nausea, vomiting, diarrhea, abdominal pain. : No Dysuria, urgency, frequency. Extremities: No edema. NEUROLOGICAL: No headaches, no weakness, or numbness Dictation was produced using [employer] software. please excuse any grammatical, word or spelling errors. Objective - Vital Signs Vital signs: Vital Signs Temp 98.6 F 05/27/24 07:00 Pulse 67 05/27/24 07:00 Resp 18 05/27/24 07:00 BP 180/83 05/27/24 07:00 Pulse Ox 98 05/27/24 08:29 FiO2 Intake & Output 05/26/24 05/27/24 05/27/24 18:59 06:59 18:59 Intake Total 236 118 Balance 236 118 Intake: Oral 236 118 Other: Voiding Method Toilet Toilet Toilet # Voids 2 2 - Labs CBC & Chem 7: 05/25/24 06:30 05/25/24 06:30
[2024-05-27] MEDS: MAGNESIUM SULFATE-D5W PMX 1 GM in DEXTROSE/WATER 1 100ML.BAG IVPB SCH (13:33)
[2024-05-27 18:31] LABS: Glucose,Whole Blood 340 mg/dL (70-110)
[2024-05-27] MEDS: diphenhydrAMINE 50 MG/ML 1 ML VIAL IVP STA (18:37)
[2024-05-27] MEDS: LORazepam 2 MG/ML INJ IV STA (18:45)
[2024-05-28 07:34] VITALS: RESP 16; TEMP 97.9
[2024-05-28 08:21] LABS: Glucose,Whole Blood 293 mg/dL (70-110)
[2024-05-28] MEDS: ALBUTEROL HFA INHALER INHALATION PRN (08:29)
[2024-05-28] MEDS: DEXAMETHASONE SOD PHOSPHATE 10 MG/ML 1 ML VIAL IVP STA (08:38)
[2024-05-28] MEDS: diphenhydrAMINE 50 MG/ML 1 ML VIAL IVP PRN (08:39)
[2024-05-28] MEDS: FAMOTIDINE 20 MG/2 ML VIAL IV STA (08:40)
[2024-05-28 08:41] VITALS: BP 160/99; PULSE 72
--- NOTE | 2024-05-28 12:25 | P.PN ---
Subjective Progress Note Date: 05/28/24 This is a 49-year-old female patient, no history of COPD, no history of chronic smoking, came into the emergency department because of shortness of breath. Her is currently admitted for the same and he is positive for COVID-19. The patient was found also to be positive for COVID-19. No previous history of vaccination. No previous history of COVID-19 infection. She came into the emergency department because of worsening shortness of breath. She was actively bronchospastic and wheezy. Chest x-ray was done and it showed no acute cardiopulmonary abnormalities. The patient is currently on 3 L of oxygen by nasal cannula with a pulse ox of 97%. She is afebrile. Hemodynamically stable. WBC 11.4 with a hemoglobin 13 and a platelet count of 307. D-dimer is less than 0.17, electrolytes show a serum bicarb of 36, sodium of 137, chlorides 95, and the procalcitonin level is at 0.03. She is known to have other comorbidities including hypertension, hyperlipidemia, fibromyalgia, previous history of CVA and history of depression. She also suffers from rheumatoid arthritis and chronic migraines. She has irritable bowel disease. In terms of her COPD, she has been maintained on Symbicort maintenance and DuoNeb nebulized treatments [id number] on as-needed basis. On 05/25/2024, the patient remains bronchospastic and wheezy and short of breath. She is complaining of scattered chest wall pain and she is requesting Dilaudid as the pain is quite extensive. As stated earlier, the patient is in acute exacerbation related to COVID-19 infection and the patient remains actively bronchospastic and wheezy. Her is also hospitalized for the same problem. She remains on Spiriva, Symbicort as maintenance and the patient is receiving albuterol HFA 4 times a day and IV Solu-Medrol 60 mg every 6 hours. The white cell count of 15.2 with a hemoglobin 12.6. Electrolytes are stable with a serum bicarb of 32, the BUN is at 23 with a creatinine of 0.6. Procalcitonin level is at 0.03. The patient is on Lovenox for DVT prophylaxis. No nausea. No emesis. No altered mentation. Home medications have been resumed. On 05/26/2024, the patient is being seen for a follow-up. The patient is still having difficulty breathing, the patient remains bronchospastic, and wheezy. Limited improvement since yesterday. No fever. No chills. She has been on on albuterol HFA 4 times a day [id number], she is also on Spiriva and Symbicort. She is on Robitussin DM. White cell count of 15, hemoglobin 12.6, electrolytes showing chronic metabolic alkalosis with a serum bicarb of 32. No nausea. No vomiting. No diarrhea. No abdominal pain. No altered mentation. On 05/27/2024, the patient reports some improvement and the patient seems to be less bronchospastic and wheezy compared to yesterday. However, the patient continues to have shortness of breath. I would recommend continuing same medication including systemic steroids for today. No other significant events overnight. The patient remains on 3 L of oxygen by nasal cannula with a pulse ox of 98%. Oxygen will be gradually weaned off. The patient is seen today May 28, 2024 in follow-up on the regular medical floor. She is currently sitting up in bed. Awake and alert in no acute distress. Maintaining good O2 saturations in the 90s on 3 L/min per nasal cannula. Denies any worsening shortness of breath, cough or congestion. Feeling back to her baseline. Glucose 293. Magnesium 2.3. She is continued on Symbicort, Spiriva, Singulair, albuterol. Remains on Solu-Medrol. Lovenox for DVT prophylaxis. Objective - Vital Signs Vital signs: Vital Signs Temp 97.9 F 05/28/24 07:00 Pulse 72 05/28/24 08:35 Resp 16 05/28/24 07:00 BP 160/99 05/28/24 08:35 Pulse Ox 96 05/28/24 08:35 FiO2 Intake & Output 05/27/24 05/28/24 05/28/24 18:59 06:59 18:59 Intake Total 236 118 Balance 236 118 Intake: Oral 236 118 Other: Voiding Method Toilet Toilet Toilet # Voids 5 1 - Exam GENERAL EXAM: Alert, 49-year-old female, on 3 L/min per nasal cannula, comfortable in no apparent distress. HEAD: Normocephalic. EYES: Normal reaction of pupils, equal size. NOSE: Clear with pink turbinates. THROAT: No erythema or exudates. NECK: No masses, no JVD. CHEST: No chest wall deformity. LUNGS: Equal air entry with no crackles, wheeze, rhonchi or dullness. CVS: S1 and S2 normal with no audible murmur, regular rhythm. ABDOMEN: No hepatosplenomegaly, normal bowel sounds, no guarding or rigidity. SPINE: No scoliosis or deformity SKIN: No rashes CENTRAL NERVOUS SYSTEM: No focal deficits, tone is normal in all 4 extremities. EXTREMITIES: There is no peripheral edema. No clubbing, no cyanosis. Peripheral pulses are intact. - Labs CBC & Chem 7: 05/25/24 06:30 05/25/24 06:30 Labs: Abnormal Lab Results - Last 24 Hours (Table) 05/27/24 05/28/24 Range/Units 18:29 08:19 POC Glucose (mg/dL) 340 H 293 H (70-110) mg/dL Assessment and Plan Assessment: Acute exacerbation of COPD with secondary shortness of breath Acute hypoxic respiratory failure secondary [employer] exacerbation, currently on 3 L and the patient has been oxygen dependent at 2 L/min nasal cannula on outpatient basis. She is a chronic smoker. Acute COVID-19 infection, no evidence of pneumonia, D-dimer is low, no previous vaccination, no previous infections Acute on chronic shortness of breath secondary to above Left upper lobe atelectasis, noted on a previous CAT scan of the chest that was done on 09/23/2022. 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 Number of minutes spent on the visit: 10 Dictation was produced using [employer] dictation software. Please excuse any grammatical, word or spelling errors.
--- NOTE | 2024-05-28 15:11 | P.DS ---
Providers Date of admission: 05/24/24 06:42 Expected date of discharge: 05/28/24 Attending physician: Shaneka Anaya Consults: 05/24/24 06:41 Consult Physician Routine Consulting Provider: Samm Milligan Consult Reason/Comments: COPD exacerbation Do you want consulting provider notified?: Yes, Notify in am Primary care physician: [facility] Course: Discharge diagnoses: -Acute on chronic hypoxic and hypercapnic respiratory failure: 2L O2 baseline Secondary to COVID-19 infection and COPD exacerbation -COPD with acute exacerbation -Pleuritic chest pain: Secondary to cough, D-dimer is negative -Fibromyalgia -Hypertension -Hyperlipidemia -Seizure disorder -CVA-TIA in the past -Depression -Allergic reaction to pineapple -DVT prophylaxis: Lovenox -GI prophylaxis -Obesity with a BMI 35.0 -Full code Plan: Patient is continued on inhalational treatments via inhalers along with IV steroids Pulmonary following continuing current regimen Procalcitonin was low and does not require antibiotics. Patient did receive a few doses of antibiotics on admission Patient continues to report chest wall pain, D-dimer was negative Patient chronically wears 2 L outpatient and currently using 3 L, recommend weaning FiO2 as tolerated. Of note patient's oxygen saturations have been above 94% while on 3 L. Okay to wean to 2 L although patient reports significant shortness of breath when doing so Encouraged increase activity as tolerated and getting up out of the bed more often Blood pressure evaluatedcontinue Coreg, Aldactone, losartan, added Norvasc. Patient left AMA. Hospital course: Patient is a 49-year-old female with history of COPD was smoking until about a week ago came in with complaints of shortness of breath. Patient was also complaining of worsening cough. Patient is found to have COVID-19. Patient has significant rhonchi bilaterally. Patient had a Tmax of 99 degrees and chills at home. Patient is complaining of possible pleuritic chest pain. There is no evidence of pneumonia on the chest x-ray. I will obtain a procalcitonin level patient was given a dose of Rocephin and doxycycline in the ER patient is not allergic to these medications. Patient usually uses 2 L of oxygen at home presently on 3 L of oxygen. 05/25/2024 Patient is seen in follow-up currently sleeping although arousable continued on IV steroids along with inhalers. Procalcitonin is low with no need for antibiotics and will continue current regimen. Patient is chronically wearing 2 L at home although presently at 3 L and oxygen saturations have been above 94%. Patient does have chronic COPD. Family is also hospitalized at this time with acute COVID-19 infection. Patient is afebrile continues to report chest wall pain and extensive coughing and reports to being dyspneic with exertion more so than normal. Encouraged increase activity as tolerated. Recommend limiting IV narcotic use as patient takes Percocets at home. Those have been resumed. 05/26/2024atient was seen and examined today. Complaining of generalized bodyaches, cough, shortness of breath, wheezing. Currently on room air, remained afebrile. WBCs 15.2, hemoglobin 12%, platelet 305. BMP unremarkable, CO2 32.6. Magnesium 1.6. Continue inhalers, currently on Solu-Medrol IV, pulmonary consulted and on board. 05/27/2024 Patient reported mild improvement as compared to yesterday, still complaining of shortness, wheezing slightly less than yesterday. Pulmonary following, continue current treatment per pulmonary, continue IV Solu-Medrol. Patient currently on 2 L oxygen, saturating more than 95%. Afebrile, heart rate 76, respiratory rate 18, blood pressure 180/83, started on Norvasc. BCs 15.2, hemoglobin stable 12.6, platelet 305, BMP unremarkable. Magnesium 1.6. 05/28/2024 Patient was seen and examined today. Patient overnight had allergic reaction to pineapple with shortness of breath, and throat swelling. Patient was treated with Decadron, Benadryl and Pepcid overnight. Patient again had pineapple in the morning and had worsening shortness of breath. Oxygen saturation remained stable on 3 L, patient denied any difficulty swallowing. No stridor. Patient remained afebrile, heart rate 72, respiratory rate 16, blood pressure 160/99. Patient later on left AMA, patient was advised prednisone taper, patient stated that she has enough prednisone at home and follow-up with her PCP in 2 days. PHYSICAL EXAMINATION: GENERAL: The patient is A&O x3, NAD HEENT: EOMI, Sclerae anicteric, Moist Mucous membranes Neck: Supple, Non tender, No JVD PULMONARY: Decreased breath sounds bilaterally, equal, mild wheezing. CARDIOVASCULAR: S1, S2 present. No murmurs, rubs, or gallops. ABDOMEN: Soft, nontender, nondistended, normoactive bowel sounds. No guarding or rebound tenderness. MUSCULOSKELETAL: No edema, No cyanosis. No clubbing. Normal ROM. Intact peripheral pulses. EXTREMITIES: No cyanosis, clubbing, or pedal edema. NEUROLOGICAL: CN 2-12 grossly intact. No FND SKIN: No rashes. Dictation was produced using [employer] dictation software. please excuse any grammatical, word or spelling errors. Plan - Discharge Summary Discharge Rx Participant: Yes New Discharge Prescriptions: No Action Spironolactone [Aldactone] 25 mg PO DAILY carvediloL [Coreg] 25 mg PO BID Citalopram Hydrobromide [CeleXA] 60 mg PO DAILY Pantoprazole [Protonix] 40 mg PO DAILY Albuterol Inhaler [Ventolin Hfa Inhaler] 2 puff INHALATION RT-QID PRN PRN Reason: Shortness Of Breath Rosuvastatin Calcium [Crestor] 5 mg PO DAILY Montelukast [Singulair] 10 mg PO HS PRN PRN Reason: Allergy Symptoms Xanax(Unknown Dose) 1 tab PO DAILY PRN PRN Reason: Anxiety Ipratropium-Albuterol Nebulize [Duoneb 0.5 mg-3 mg/3 ml Soln] 3 ml INHALATION RT-Q4H #120 each Budesonide-Formot 160-4.5 Mcg [Symbicort 160-4.5 Mcg Inhaler] 2 puff INHALATION RT-BID #1 each Nicotine 14Mg/24Hr Patch [Habitrol] 1 patch TRANSDERM DAILY PRN PRN Reason: Nicotine Cravings oxyCODONE-APAP 10-325MG [Percocet 10-325 mg] 1 tab PO TID rOPINIRole HCL [Requip] 0.25 mg PO HS Famotidine 20 mg PO BID traZODone HCL [Desyrel] 50 mg PO HS Losartan [Cozaar] 100 mg PO DAILY #30 tab Discharge Medication List Spironolactone [Aldactone] 25 mg PO DAILY 02/05/17 [History] carvediloL [Coreg] 25 mg PO BID 03/26/21 [History] oxyCODONE-APAP 10-325MG [Percocet 10-325 mg] 1 tab PO TID 03/16/22 [History] Citalopram Hydrobromide [CeleXA] 60 mg PO DAILY 01/27/23 [History] Pantoprazole [Protonix] 40 mg PO DAILY 05/29/23 [History] Albuterol Inhaler [Ventolin Hfa Inhaler] 2 puff INHALATION RT-QID PRN 04/02/24 [History] Famotidine 20 mg PO BID 04/02/24 [History] Montelukast [Singulair] 10 mg PO HS PRN 04/02/24 [History] Rosuvastatin Calcium [Crestor] 5 mg PO DAILY 04/02/24 [History] Xanax(Unknown Dose) 1 tab PO DAILY PRN 04/02/24 [History] rOPINIRole HCL [Requip] 0.25 mg PO HS 04/02/24 [History] traZODone HCL [Desyrel] 50 mg PO HS 04/02/24 [History] Budesonide-Formot 160-4.5 Mcg [Symbicort 160-4.5 Mcg Inhaler] 2 puff INHALATION RT-BID #1 each 04/06/24 [Rx] Ipratropium-Albuterol Nebulize [Duoneb 0.5 mg-3 mg/3 ml Soln] 3 ml INHALATION RT-Q4H #120 each 04/06/24 [Rx] Losartan [Cozaar] 100 mg PO DAILY #30 tab 04/06/24 [Rx] Nicotine 14Mg/24Hr Patch [Habitrol] 1 patch TRANSDERM DAILY PRN 04/22/24 [History] Follow up Appointment(s)/Referral(s): Keim Guevara MD [Primary Care Provider] - 1-2 days Discharge Disposition: LEFT AGAINST MEDICAL ADVICE
== END 2024-05-28 14:25 | disposition left against medical advice (07) ==
LOC: EC 03:47 → 6NMEDSUR 06:42
PROVIDERS: ADMIT Hospitalist; ATTEND Hospitalist
DX: U07.1 COVID-19 (principal); J96.21 Acute and chronic respiratory failure with hypoxia; J96.22 Acute and chronic respiratory failure with hypercapnia; J44.1 Chronic obstructive pulmonary disease with (acute) exacerbation; T78.1XXA Other adverse food reactions, not elsewhere classified, initial encounter; X58.XXXA Exposure to other specified factors, initial encounter; Y92.239 Unspecified place in hospital as the place of occurrence of the external cause; I11.0 Hypertensive heart disease with heart failure; I50.9 Heart failure, unspecified; E78.5 Hyperlipidemia, unspecified; G40.909 Epilepsy, unspecified, not intractable, without status epilepticus; M79.7 Fibromyalgia; M06.9 Rheumatoid arthritis, unspecified; G43.909 Migraine, unspecified, not intractable, without status migrainosus; F31.9 Bipolar disorder, unspecified; F41.9 Anxiety disorder, unspecified; F90.9 Attention-deficit hyperactivity disorder, unspecified type; F17.210 Nicotine dependence, cigarettes, uncomplicated; Z53.29 Procedure and treatment not carried out because of patient's decision for other reasons; Z79.899 Other long term (current) drug therapy; Z79.891 Long term (current) use of opiate analgesic; Z79.51 Long term (current) use of inhaled steroids; Z88.2 Allergy status to sulfonamides; Z88.8 Allergy status to other drugs, medicaments and biological substances; Z88.6 Allergy status to analgesic agent; Z88.1 Allergy status to other antibiotic agents; Z91.041 Radiographic dye allergy status; Z88.5 Allergy status to narcotic agent; Z91.013 Allergy to seafood; Z86.73 Personal history of transient ischemic attack (TIA), and cerebral infarction without residual deficits
CPT/HCPCS: 96376 ×5; 96365; 96366; 96372 ×5; 96375 ×4; 99285; 36415; 94640 ×10; 94760 ×3; 93005; 85379; 83880; 80053; 80048; 83735 ×2; 84484; 85025; 85027; 85610; 85730; 84145; 87636; 71046; 71250; G0378 ×5; J2060; J2270; J1200 ×2; J1100; J2405 ×3; J1650 ×5; J3490; J3475; J7512 ×3; J1171 ×2; J2919 ×5

== ENCOUNTER 2024-05-30 21:36 | Inpatient (IN) | payer MEDICARE ==
[2024-05-30] MEDS: ALBUTEROL NEBULIZED 2.5 MG/3 ML INHALATION STA (21:44)
[2024-05-30] MEDS: IPRATROPIUM 0.5 MG/2.5 ML NEBU INHALATION STA (21:45)
[2024-05-30] MEDS: methylPREDNISolone SOD SUCCI 125 MG/2 ML VIAL IV STA (21:55)
--- NOTE | 2024-05-30 22:02 | ED ---
General Adult HPI - General Chief complaint: Shortness of Breath Stated complaint: ELVI Time Seen by Provider: 05/30/24 21:38 Source: patient, EMS, RN notes reviewed, old records reviewed Mode of arrival: EMS Limitations: no limitations - History of Present Illness Initial comments: 49-year-old female presenting with increased cough and dyspnea, history of oxygen dependent COPD with recent admission. Patient was diagnosed with coronavirus 1 week ago. She states that she has had increased cough and dyspnea since discharge 2 days ago. No central chest pain. Cough is productive of brown sputum. Patient was placed on CPAP by paramedics with hypoxia at 80% - Related Data Home Medications Medication Instructions Recorded Confirmed Spironolactone [Aldactone] 25 mg PO DAILY 02/05/17 05/24/24 carvediloL [Coreg] 25 mg PO BID 03/26/21 05/24/24 oxyCODONE-APAP 10-325MG [Percocet 1 tab PO TID 03/16/22 05/24/24 10-325 mg] Citalopram Hydrobromide [CeleXA] 60 mg PO DAILY 01/27/23 05/24/24 Pantoprazole [Protonix] 40 mg PO DAILY 05/29/23 05/24/24 Albuterol Inhaler [Ventolin Hfa 2 puff INHALATION RT-QID PRN 04/02/24 05/24/24 Inhaler] Famotidine 20 mg PO BID 04/02/24 05/24/24 Montelukast [Singulair] 10 mg PO HS PRN 04/02/24 05/24/24 Rosuvastatin Calcium [Crestor] 5 mg PO DAILY 04/02/24 05/24/24 Xanax(Unknown Dose) 1 tab PO DAILY PRN 04/02/24 05/24/24 rOPINIRole HCL [Requip] 0.25 mg PO HS 04/02/24 05/24/24 traZODone HCL [Desyrel] 50 mg PO HS 04/02/24 05/24/24 Nicotine 14Mg/24Hr Patch [Habitrol] 1 patch TRANSDERM DAILY PRN 04/22/24 05/24/24 Previous Rx's Medication Instructions Recorded Budesonide-Formot 160-4.5 Mcg 2 puff INHALATION RT-BID #1 each 04/06/24 [Symbicort 160-4.5 Mcg Inhaler] Ipratropium-Albuterol Nebulize 3 ml INHALATION RT-Q4H #120 each 04/06/24 [Duoneb 0.5 mg-3 mg/3 ml Soln] Losartan [Cozaar] 100 mg PO DAILY #30 tab 04/06/24 Allergies Allergy/AdvReac Type Severity Reaction Status Date / Time adhesive Allergy Rash/Hives Verified 05/30/24 21:42 amoxicillin Allergy Anaphylaxis Verified 05/30/24 21:42 azithromycin [From Zithromax] Allergy Anaphylaxis Verified 05/30/24 21:42 cephalexin monohydrate Allergy Anaphylaxis Verified 05/30/24 21:42 [From Keflex] ciprofloxacin Allergy Anaphylaxis Verified 05/30/24 21:42 clindamycin Allergy Anaphylaxis Verified 05/30/24 21:42 Iodinated Contrast Media Allergy Anaphylaxis Verified 05/30/24 21:42 [Iodinated Contrast- Oral and IV Dye] ketorolac [From Toradol] Allergy Anaphylaxis Verified 05/30/24 21:42 levofloxacin [From Levaquin] Allergy Rash/Hives Verified 05/30/24 21:42 naproxen Allergy Anaphylaxis Verified 05/30/24 21:42 NSAIDS (Non-Steroidal Allergy Rash/Hives Verified 05/30/24 21:42 Anti-Inflamma orphenadrine [From Norflex] Allergy Anaphylaxis Verified 05/30/24 21:42 pineapple Allergy Anaphylaxis Verified 05/30/24 21:42 shellfish derived Allergy Anaphylaxis Verified 05/30/24 21:42 Sulfa (Sulfonamide Allergy Anaphylaxis Verified 05/30/24 21:42 Antibiotics) sulfamethoxazole Allergy Anaphylaxis Verified 05/30/24 21:42 [From Bactrim] tramadol Allergy Anaphylaxis Verified 05/30/24 21:42 trimethoprim [From Bactrim] Allergy Anaphylaxis Verified 05/30/24 21:42 Review of Systems ROS Statement: Those systems with pertinent positive or pertinent negative responses have been documented in the HPI. ROS Other: All systems not noted in ROS Statement are negative. 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 IBS, cellulitis of the chin, CVA about 1 year ago(no residual) History of Any Multi-Drug Resistant Organisms: MRSA Date of last positivie culture/infection: 07/2016 MDRO Source:: [place] Past Surgical History: Appendectomy, Section, Cholecystectomy, Hysterectomy, Tubal Ligation Additional Past Surgical History / Comment(s): oral surgery . Pancreas biopsy May 2015. Past Anesthesia/Blood Transfusion Reactions: No Reported Reaction Past Psychological History: ADD/ADHD, Anxiety, Bipolar, Depression Smoking Status: Current every day smoker Past Alcohol Use History: None Reported Past Drug Use History: Marijuana - Past Family History Father History Unknown: Yes Family Medical History: No Reported History Additional Family Medical History / Comment(s): Pt adopted Mother History Unknown: Yes Additional Family Medical History / Comment(s): Pt adopted General Exam Limitations: no limitations General appearance: alert, in no apparent distress Head exam: Present: atraumatic, normocephalic Eye exam: Present: normal appearance, PERRL Respiratory exam: Present: respiratory distress, wheezes, accessory muscle use, decreased breath sounds Cardiovascular Exam: Present: regular rate, normal rhythm GI/Abdominal exam: Present: soft. Absent: distended, tenderness Extremities exam: Present: normal inspection, normal capillary refill Neurological exam: Present: alert, oriented X3, CN II-XII intact. Absent: motor sensory deficit Psychiatric exam: Present: normal affect, normal mood Skin exam: Present: warm, dry, intact. Absent: cyanosis, diaphoretic Course Vital Signs 05/30/24 05/30/24 05/30/24 21:37 21:42 21:47 Temperature 97.7 F Pulse Rate 90 82 Respiratory 24 Rate Blood Pressure 103/87 O2 Sat by Pulse 93 L Oximetry Fraction of 50 Inspired Oxygen (FIO2) 05/30/24 22:13 Temperature Pulse Rate 75 Respiratory Rate Blood Pressure O2 Sat by Pulse Oximetry Fraction of Inspired Oxygen (FIO2) Medical Decision Making - Medical Decision Making Was pt. sent in by a medical professional or institution (Dr. PA, KITCHEN OPERATOR, urgent care, hospital, or custodial...) When possible be specific @ -No Did you speak to anyone other than the patient for history (EMS, parent, family, police, friend...)? What history was obtained from this source @Paramedics Did you review nursing and triage notes (agree or disagree)? Why? @ -I reviewed and agree with nursing and triage notes Were old charts reviewed (outside hosp., previous admission, EMS record, old EKG, old radiological studies, urgent care reports/EKG's, custodial records)? Report findings @ -No old charts were reviewed Differential Dyspnea: Coronary syndrome, arrhythmia, tamponade, asthma, COPD, pulmonary embolism, pneumonia, pneumothorax, pulmonary effusion, anaphylaxis, diabetic ketoacidosis, flailed chest, pulmonary contusion, diaphragmatic rupture, anemia, neuromuscular, this is not meant to be an all-inclusive list. EKG interpreted by me (3pts min.). @EKG sinus rhythm with significant artifact limiting assessment, no ST segment elevation, ventricular rate of 87, ID interval 130, QRS duration 80, QTc 408 X-rays interpreted by me (1pt min.). @ -Chest x-ray negative for consolidated pneumonia or pneumothorax CT interpreted by me (1pt min.). @ -None done U/S interpreted by me (1pt. min.). @ -None done What testing was considered but not performed or refused? (CT, X-rays, U/S, labs)? Why? @ -None What meds were considered but not given or refused? Why? @ -None Did you discuss the management of the patient with other professionals (professionals i.e. , PA, KITCHEN OPERATOR, lab, RT, psych nurse, social services assistant, filler shaker, teacher, port patrol officer, case finisher)? Give summary @ -Case discussed with Naz us for [facility] Was smoking cessation discussed for >3mins.? @ -No Was critical care preformed (if so, how long)? @ -Yes, 35 minutes Were there social determinants of health that impacted care today? How? (Homelessness, low income, unemployed, alcoholism, drug addiction, transportation, low edu. Level, literacy, decrease access to med. care, snf, rehab)? @ -No Was there de-escalation of care discussed even if they declined (Discuss DNR or withdrawal of care, Hospice)? DNR status @ -No What co-morbidities impacted this encounter? (DM, HTN, Smoking, COPD, CAD, Cancer, CVA, ARF, Chemo, Hep., AIDS, mental health diagnosis, sleep apnea, morbid obesity)? @COPD Was patient admitted / discharged? Hospital course, mention meds given and route, prescriptions, significant lab abnormalities, going to OR and other pertinent info. @ -49-year-old female with oxygen dependent COPD presenting with respiratory distress, hypoxia requiring CPAP during transport by paramedics. Patient placed on BiPAP upon arrival. Given steroids, albuterol, Atrovent with significant improvement. Patient does have a leukocytosis which I suspect is secondary to steroid administration. She has chronic CO2 retention. She has a negative tr oponin and negative BNP. She will be admitted for COPD exacerbation to internal medicine with pulmonology on consult. Undiagnosed new problem with uncertain prognosis? @ -No Drug Therapy requiring intensive monitoring for toxicity (Heparin, Nitro, Insulin, Cardizem)? @ -No Were any procedures done? @ -No Diagnosis/symptom? @ -COPD exacerbation with respiratory failure Acute, or Chronic, or Acute on Chronic? @ -Acute on chronic Uncomplicated (without systemic symptoms) or Complicated (systemic symptoms)? @ -Default Side effects of treatment? @ -No Exacerbation, Progression, or Severe Exacerbation? @ -No Poses a threat to life or bodily function? How? (Chest pain, [place], [place], pneumonia, PE, COPD, DKA, ARF, appy, cholecystitis, CVA, Diverticulitis, Homicidal, Suicidal, threat to staff... and all critical care pts) @ -[Yes, respiratory failure - Lab Data Result diagrams: 05/30/24 21:50 05/30/24 21:50 Lab Results 05/30/24 05/30/24 05/30/24 Range/Units 21:50 21:50 21:50 WBC 16.7 H (3.8-10.6) k/uL RBC 4.85 (3.80-5.40) m/uL Hgb 13.3 (11.4-16.0) gm/dL Hct 43.5 (34.0-46.0) % MCV 89.7 (80.0-100.0) fL MCH 27.4 (25.0-35.0) pg MCHC 30.5 L (31.0-37.0) g/dL RDW 14.0 (11.5-15.5) % Plt Count 227 (150-450) k/uL MPV 6.6 Neutrophils % 90 % Lymphocytes % 4 % Monocytes % 3 % Eosinophils % 1 % Basophils % 0 % Neutrophils # 15.1 H (1.3-7.7) k/uL Lymphocytes # 0.7 L (1.0-4.8) k/uL Monocytes # 0.6 (0-1.0) k/uL Eosinophils # 0.2 (0-0.7) k/uL Basophils # 0.0 (0-0.2) k/uL Hypochromasia Marked VBG pH (7.31-7.41) VBG pCO2 (37-51) mmHg VBG HCO3 (24-28) mmol/L Sodium 136 L (137-145) mmol/L Potassium 5.2 H (3.5-5.1) mmol/L Chloride 91 L (98-107) mmol/L Carbon Dioxide 38 H (22-30) mmol/L Anion Gap 7 mmol/L BUN 49 H (7-17) mg/dL Creatinine 0.74 (0.52-1.04) mg/dL Est GFR (CKD-EPI)AfAm >90 (>60 ml/min/1.73 sqM) Est GFR (CKD-EPI)NonAf >90 (>60 ml/min/1.73 sqM) Glucose 191 H (74-99) mg/dL Plasma Lactic Acid Srinivas 2.9 H* (0.7-2.0) mmol/L Calcium 8.4 (8.4-10.2) mg/dL Magnesium 2.5 H (1.6-2.3) mg/dL Total Bilirubin 0.5 (0.2-1.3) mg/dL AST 23 (14-36) U/L ALT 25 (4-34) U/L Alkaline Phosphatase 63 (38-126) U/L Troponin I (0.000-0.034) ng/mL NT-Pro-B Natriuret Pep 95 pg/mL Total Protein 6.7 (6.3-8.2) g/dL Albumin 4.2 (3.5-5.0) g/dL 05/30/24 05/30/24 Range/Units 21:50 21:51 WBC (3.8-10.6) k/uL RBC (3.80-5.40) m/uL Hgb (11.4-16.0) gm/dL Hct (34.0-46.0) % MCV (80.0-100.0) fL MCH (25.0-35.0) pg MCHC (31.0-37.0) g/dL RDW (11.5-15.5) % Plt Count (150-450) k/uL MPV Neutrophils % % Lymphocytes % % Monocytes % % Eosinophils % % Basophils % % Neutrophils # (1.3-7.7) k/uL Lymphocytes # (1.0-4.8) k/uL Monocytes # (0-1.0) k/uL Eosinophils # (0-0.7) k/uL Basophils # (0-0.2) k/uL Hypochromasia VBG pH 7.53 H (7.31-7.41) VBG pCO2 45 (37-51) mmHg VBG HCO3 38 H (24-28) mmol/L Sodium (137-145) mmol/L Potassium (3.5-5.1) mmol/L Chloride (98-107) mmol/L Carbon Dioxide (22-30) mmol/L Anion Gap mmol/L BUN (7-17) mg/dL Creatinine (0.52-1.04) mg/dL Est GFR (CKD-EPI)AfAm (>60 ml/min/1.73 sqM) Est GFR (CKD-EPI)NonAf (>60 ml/min/1.73 sqM) Glucose (74-99) mg/dL Plasma Lactic Acid Srinivas (0.7-2.0) mmol/L Calcium (8.4-10.2) mg/dL Magnesium (1.6-2.3) mg/dL Total Bilirubin (0.2-1.3) mg/dL AST (14-36) U/L ALT (4-34) U/L Alkaline Phosphatase (38-126) U/L Troponin I <0.012 (0.000-0.034) ng/mL NT-Pro-B Natriuret Pep pg/mL Total Protein (6.3-8.2) g/dL Albumin (3.5-5.0) g/dL Critical Care Time Critical Care Time: Yes Total Critical Care Time: 35 Disposition Clinical Impression: COPD (chronic obstructive pulmonary disease), Acute exacerbation of chronic obstructive pulmonary disease Disposition: ADMITTED IP TO THIS HOSP Condition: Stable Is patient prescribed a controlled substance at d/c from ED?: No Referrals: Kemi Guevara MD [Primary Care Provider] - 1-2 days Time of Disposition: 22:30
[2024-05-30 22:03] LABS: VBG PH 7.53 (7.31-7.41)
[2024-05-30 22:03] LABS: Basophils % (A) 0 %; Eosinophils # (A) 0.2 k/uL (0-0.7); Eosinophils % (A) 1 %; HCT 43.5 % (34.0-46.0); HGB 13.3 gm/dL (11.4-16.0); Hypochromasia Marked; Lymphocytes # (A) 0.7 k/uL (1.0-4.8); Lymphocytes % (A) 4 %; MCH 27.4 pg (25.0-35.0); MCHC 30.5 g/dL (31.0-37.0); MCV 89.7 fL (80.0-100.0); Mean Platelet Volume 6.6; Monocytes # (A) 0.6 k/uL (0-1.0); Monocytes % (A) 3 %; Neutrophils # (A) 15.1 k/uL (1.3-7.7); Neutrophils % (A) 90 %; Platelet Count 227 k/uL (150-450); RBC 4.85 m/uL (3.80-5.40); WBC 16.7 k/uL (3.8-10.6)
[2024-05-30 22:13] LABS: ALT 25 U/L (4-34); AST 23 U/L (14-36); African American GFR (CKD) >90 (>60 ml/min/1.73 sqM); Albumin 4.2 g/dL (3.5-5.0); Alkaline Phosphatase 63 U/L (38-126); Blood Urea Nitrogen 49 mg/dL (7-17); Calcium 8.4 mg/dL (8.4-10.2); Chloride 91 mmol/L (98-107); Glucose 191 mg/dL (74-99); Magnesium 2.5 mg/dL (1.6-2.3); Non-African American GFR(CKD) >90 (>60 ml/min/1.73 sqM); Potassium 5.2 mmol/L (3.5-5.1); Sodium 136 mmol/L (137-145); Total Bilirubin 0.5 mg/dL (0.2-1.3); Total Protein 6.7 g/dL (6.3-8.2)
[2024-05-30 22:19] LABS: Anion Gap 7 mmol/L
--- NOTE | 2024-05-30 22:19 | XR ---
EXAMINATION TYPE: XR chest 1V portable DATE OF EXAM: 05/30/2024 10:00 PM COMPARISON: Chest radiographs from 05/24/2024 CLINICAL INDICATION: Female, 49 years old with history of ELVI; [facility] TECHNIQUE: XR chest 1V portable Frontal view of the chest. FINDINGS: Lungs/Pleura: There is no evidence of pleural effusion, focal consolidation, or pneumothorax. Pulmonary vascularity: Unremarkable. Heart/mediastinum: Cardiomediastinal silhouette is unremarkable. Musculoskeletal: No acute osseous pathology. IMPRESSION: No acute cardiopulmonary disease/process. [facility] Katiana Ames, , 05/30/2024 10:16 PM
[2024-05-30 22:23] LABS: Carbon Dioxide 38 mmol/L (22-30)
[2024-05-30 22:25] LABS: NT-Pro-B-Type Natriuretic Pept 95 pg/mL
[2024-05-30] MEDS ORDERED: NALOXONE 0.4 MG/ML 1 ML VIAL IVP PRN (22:27)
[2024-05-30] MEDS ORDERED: ACETAMINOPHEN TAB 325 MG TAB PO PRN (22:27)
[2024-05-30] MEDS ORDERED: IPRATROPIUM-ALBUTEROL 3 ML NEB INHALATION PRN (22:27)
[2024-05-30 22:37] LABS: INR 0.9 (<1.2); Prothrombin Time 10.4 sec (10.0-12.5)
[2024-05-30 22:45] LABS: Partial Thromboplastin Time 21.4 sec (22.0-30.0)
[2024-05-31] MEDS: methylPREDNISolone SOD SUCCI 125 MG/2 ML VIAL IV SCH ×2 (02:06→03:16)
[2024-05-31] MEDS: oxyCODONE-APAP 10-325MG 1 EACH TAB PO STA (03:15)
[2024-05-31] MEDS: IPRATROPIUM-ALBUTEROL 3 ML NEB INHALATION SCH (07:41)
[2024-05-31] MEDS: oxyCODONE-APAP 10-325MG 1 EACH TAB PO SCH (08:53)
--- NOTE | 2024-05-31 13:11 | P.CNPUL ---
History of Present Illness Consult date: 05/31/24 Requesting physician: Jamaal Leonard Reason for consult: COPD Chief complaint: Shortness of breath, chronic pain History of present illness: This is another hospitalization for this 49-year-old female patient, just discharged home on May 28, 2024 following a COPD exacerbation. She presented here again yesterday May 30, 2024 with complaints of increasing shortness of breath cough and congestion. She also has complaints of generalized pain and is asking for more pain medication. States she has now quit smoking. Chest x-ray reveals no acute cardiopulmonary process. White count 16.7. Hemoglobin 13.3. Platelets 227. Sodium 136. Potassium 5.2. Bicarb 38. BUN 49. Creatinine 0.74. Glucose 191. proBNP 95. She is seen in consultation in the emergency department. Sitting up on the stretcher. Awake and alert in no acute distress. Lung sounds are clear. Diminished. Review of Systems REVIEW OF SYSTEMS: CONSTITUTIONAL: Denies any recent significant weight loss or weight gain. EYES: Denies change in vision. EARS, NOSE, MOUTH, THROAT: Denies headaches, denies sore throat. CARDIOVASCULAR: Denies chest pain, palpitations or syncopal episodes. RESPIRATORY: Positive for shortness of breath, cough, congestion no hemoptysis. GASTROINTESTINAL: Denies change in appetite, denies abdominal pain GENITOURINARY: Denies hematuria, denies infections. MUSKULOSKELETAL: Denies pain, denies swelling. INTEGUMENTARY: Denies rash, denies eczema. NEUROLOGICAL: Denies recent memory loss, no recent seizure activity. PSYCHIATRIC: Denies anxiety, denies depression. HEMATOLOGIC/LYMPHATIC: Denies anemia, denies enlarged lymph nodes. 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 IBS, cellulitis of the chin, CVA about 1 year ago(no residual) History of Any Multi-Drug Resistant Organisms: MRSA Date of last positivie culture/infection: 07/2016 MDRO Source:: [facility] Past Surgical History: Appendectomy, Section, Cholecystectomy, Hysterectomy, Tubal Ligation Additional Past Surgical History / Comment(s): oral surgery . Pancreas biopsy May 2015. Past Anesthesia/Blood Transfusion Reactions: No Reported Reaction Past Psychological History: ADD/ADHD, Anxiety, Bipolar, Depression Smoking Status: Current every day smoker Past Alcohol Use History: None Reported Past Drug Use History: Marijuana - Past Family History Father History Unknown: Yes Family Medical History: No Reported History Additional Family Medical History / Comment(s): Pt adopted Mother History Unknown: Yes Additional Family Medical History / Comment(s): Pt adopted Medications and Allergies Home Medications Medication Instructions Recorded Confirmed Type Spironolactone [Aldactone] 25 mg PO DAILY 02/05/17 05/31/24 History carvediloL [Coreg] 25 mg PO BID 03/26/21 05/31/24 History oxyCODONE-APAP 10-325MG [Percocet 1 tab PO TID 03/16/22 05/31/24 History 10-325 mg] Citalopram Hydrobromide [CeleXA] 60 mg PO DAILY 01/27/23 05/31/24 History Pantoprazole [Protonix] 40 mg PO DAILY 05/29/23 05/31/24 History Albuterol Inhaler [Ventolin Hfa 2 puff INHALATION RT-QID PRN 04/02/24 05/31/24 History Inhaler] Famotidine 20 mg PO BID 04/02/24 05/31/24 History Montelukast [Singulair] 10 mg PO HS PRN 04/02/24 05/31/24 History Rosuvastatin Calcium [Crestor] 5 mg PO DAILY 04/02/24 05/31/24 History Xanax(Unknown Dose) 1 tab PO DAILY PRN 04/02/24 05/31/24 History rOPINIRole HCL [Requip] 0.25 mg PO HS 04/02/24 05/31/24 History traZODone HCL [Desyrel] 50 mg PO HS 04/02/24 05/31/24 History Budesonide-Formot 160-4.5 Mcg 2 puff INHALATION RT-BID #1 each 04/06/24 05/31/24 Rx [Symbicort 160-4.5 Mcg Inhaler] Ipratropium-Albuterol Nebulize 3 ml INHALATION RT-Q4H #120 each 04/06/24 05/31/24 Rx [Duoneb 0.5 mg-3 mg/3 ml Soln] Losartan [Cozaar] 100 mg PO DAILY #30 tab 04/06/24 05/31/24 Rx Nicotine 14Mg/24Hr Patch [Habitrol] 1 patch TRANSDERM DAILY PRN 04/22/24 05/31/24 History Allergies Allergy/AdvReac Type Severity Reaction Status Date / Time adhesive Allergy Rash/Hives Verified 05/31/24 09:30 amoxicillin Allergy Anaphylaxis Verified 05/31/24 09:30 azithromycin [From Zithromax] Allergy Anaphylaxis Verified 05/31/24 09:30 cephalexin monohydrate Allergy Anaphylaxis Verified 05/31/24 09:30 [From Keflex] ciprofloxacin Allergy Anaphylaxis Verified 05/31/24 09:30 clindamycin Allergy Anaphylaxis Verified 05/31/24 09:30 Iodinated Contrast Media Allergy Anaphylaxis Verified 05/31/24 09:30 [Iodinated Contrast- Oral and IV Dye] ketorolac [From Toradol] Allergy Anaphylaxis Verified 05/31/24 09:30 levofloxacin [From Levaquin] Allergy Rash/Hives Verified 05/31/24 09:30 naproxen Allergy Anaphylaxis Verified 05/31/24 09:30 NSAIDS (Non-Steroidal Allergy Rash/Hives Verified 05/31/24 09:30 Anti-Inflamma orphenadrine [From Norflex] Allergy Anaphylaxis Verified 05/31/24 09:30 pineapple Allergy Anaphylaxis Verified 05/31/24 09:30 shellfish derived Allergy Anaphylaxis Verified 05/31/24 09:30 Sulfa (Sulfonamide Allergy Anaphylaxis Verified 05/31/24 09:30 Antibiotics) sulfamethoxazole Allergy Anaphylaxis Verified 05/31/24 09:30 [From Bactrim] tramadol Allergy Anaphylaxis Verified 05/31/24 09:30 trimethoprim [From Bactrim] Allergy Anaphylaxis Verified 05/31/24 09:30 Physical Exam Vitals: Vital Signs Temp Pulse Resp BP Pulse Ox FiO2 05/31/24 11:31 80 05/31/24 11:24 20 05/31/24 11:23 88 05/31/24 11:00 83 20 172/91 95 05/31/24 10:10 82 22 187/92 94 L 05/31/24 07:57 87 05/31/24 07:47 96 05/31/24 07:42 79 05/31/24 06:26 99.1 F 76 18 176/97 94 L 05/31/24 04:18 71 18 176/96 94 L 05/31/24 03:18 92 L 05/31/24 02:52 72 18 171/90 95 05/31/24 00:39 50 05/30/24 22:53 67 18 125/67 94 L 05/30/24 22:13 75 05/30/24 21:47 82 05/30/24 21:42 50 05/30/24 21:37 97.7 F 90 24 103/87 93 L Intake and Output 05/30/24 05/31/24 05/31/24 22:59 06:59 14:59 Other: Weight 81.193 kg GENERAL EXAM: Alert, 49-year-old female, on 3 L nasal cannula, comfortable in no apparent distress. HEAD: Normocephalic. EYES: Normal reaction of pupils, equal size. NOSE: Clear with pink turbinates. THROAT: No erythema or exudates. NECK: No masses, no JVD. CHEST: No chest wall deformity. LUNGS: Equal air entry with no crackles, wheeze, rhonchi or dullness. Diminished CVS: S1 and S2 normal with no audible murmur, regular rhythm. ABDOMEN: No hepatosplenomegaly, normal bowel sounds, no guarding or rigidity. SPINE: No scoliosis or deformity SKIN: No rashes CENTRAL NERVOUS SYSTEM: No focal deficits, tone is normal in all 4 extremities. EXTREMITIES: There is no peripheral edema. No clubbing, no cyanosis. Peripheral pulses are intact. Results - Laboratory Findings CBC and BMP: 05/30/24 21:50 05/30/24 21:50 PT/INR, D-dimer PT 10.4 sec (10.0-12.5) 05/30/24 21:50 INR 0.9 (<1.2) 05/30/24 21:50 Abnormal lab findings: Abnormal Labs 05/30/24 05/30/24 05/30/24 21:50 21:50 21:50 WBC 16.7 H MCHC 30.5 L Neutrophils # 15.1 H Lymphocytes # 0.7 L APTT 21.4 L VBG pH VBG HCO3 Sodium 136 L Potassium 5.2 H Chloride 91 L Carbon Dioxide 38 H BUN 49 H Glucose 191 H Plasma Lactic Acid Srinivas Magnesium 2.5 H 05/30/24 05/30/24 21:50 21:51 WBC MCHC Neutrophils # Lymphocytes # APTT VBG pH 7.53 H VBG HCO3 38 H Sodium Potassium Chloride Carbon Dioxide BUN Glucose Plasma Lactic Acid Srinivas 2.9 H* Magnesium - Diagnostic Findings Chest x-ray: image reviewed Assessment and Plan Assessment: Mild exacerbation of COPD with secondary shortness of breath Chronic pain syndrome secondary to fibromyalgia, requesting more pain medication Recent discharge May 28, 2024 following acute on chronic hypoxic res piratory failure 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 Fibromyalgia Hypertension Hyperlipidemia History of seizure disorder History of CVA Irritable bowel disease Chronic pancreatic insufficiency/fibrosis Migraines Nephrolithiasis Rheumatoid arthritis Plan: The patient was seen and evaluated Chest x-ray, labs and medications reviewed Currently stable on 3 L nasal cannula Cleared for discharge from pulmonary standpoint Continue her home pulmonary medications, oxygen Complete a prednisone taper Follow-up with her cyber defense forensics analyst within 1 week I have personally seen and examined the patient, performed the documentation and the assessment and plan as written. Number of minutes spent on the visit: 20 Dictation was produced using [employer] dictation software. Please excuse any grammatical, word or spelling errors.
[2024-05-31] MEDS ORDERED: NICOTINE 14MG/24HR PATCH TRANSDERM PRN (14:28)
[2024-05-31] MEDS ORDERED: MONTELUKAST 10 MG TAB PO PRN (14:28)
[2024-05-31] MEDS: DOXYCYCLINE 100 MG in SODIUM CHLORIDE 0.9% 100 ML IVPB SCH ×2 (14:54→15:20)
[2024-05-31] MEDS: LOSARTAN 50 MG TAB PO SCH (15:03)
[2024-05-31] MEDS: carvediloL 12.5 MG TAB PO SCH (15:04)
[2024-05-31] MEDS: SPIRONOLACTONE 25 MG TAB PO SCH (15:05)
[2024-05-31] MEDS: HYDROmorphone 0.5 MG/0.5 ML SYRINGE IVP PRN (17:06)
[2024-05-31] MEDS: SYMBICORT 160-4.5 MCG INHALER INHALATION SCH (19:58)
[2024-05-31] MEDS ORDERED: carvediloL 12.5 MG TAB PO SCH (21:00)
[2024-05-31] MEDS: traZODone HCL 50 MG TAB PO SCH (21:02)
[2024-05-31] MEDS: FAMOTIDINE 20 MG TAB PO SCH (21:02)
[2024-05-31] MEDS: PANTOPRAZOLE 40 MG/10 ML VIAL IVP SCH (21:02)
[2024-05-31] MEDS: ALPRAZolam 0.25 MG TAB PO STA (22:06)
--- NOTE | 2024-06-01 00:50 | HP ---
HISTORY AND PHYSICAL CHIEF COMPLAINT: Shortness of breath and severe back pain and right renal angle pain. HISTORY OF PRESENT ILLNESS: This is a 49-year-old woman with a past medical history of COPD, CHF, was recently admitted to hospital with multiple symptomatology. The patient was found to have COVID- 19. Currently, the patient was discharged and the patient was complaining of severe shortness of breath, cough, and sputum, and as well as pain as mentioned earlier. There is no history of any fever, rigors, or chills at this time. Evaluation showed elevated WBC, elevated plasma, lactic acid, as well as a chest x-ray, which I reviewed personally showed no evidence of any acute abnormality. Dr. Hooper has evaluated the patient as well. No chest pain. No palpitation. PAST MEDICAL HISTORY: Reviewed include CHF, COPD, dose and rest of medications reviewed. Other history reviewed. HOME MEDICATIONS: Reviewed include trazodone. Dose and rest of medications reviewed. ALLERGIES: Multiple allergies and rest of allergies are noted. FAMILY HISTORY: The patient is adopted. SOCIAL HISTORY: Current smoking. REVIEW OF SYSTEMS: Fourteen-point review of systems is negative except as mentioned earlier. PHYSICAL EXAMINATION: VITAL SIGNS: Pulse is 83, blood pressure 170/90, respirations 20. HEENT: Conjunctivae normal. NECK: No JVD. CARDIOVASCULAR: S1, S2. RESPIRATIONS: Breath sounds diminished at the bases. Bilateral scattered rhonchi. ABDOMEN: Soft, obese. LEGS: No edema. NERVOUS SYSTEM: Nonfocal. BACK: Examination of the back, significant pain and tenderness present on the right renal angle. LABORATORY DATA: WBC 16.7, rest of the labs are noted. ASSESSMENT: 1. Chronic obstructive pulmonary disease acute exacerbation. 2. Acute purulent tracheobronchitis. 3. Elevated plasma, lactic acid. 4. History of congestive heart failure. 5. Hypertension. 6. History of recent COVID-19. 7. Rheumatoid arthritis. 8. History of pancreatic fibrosis. 9. Multiple complex medical issues. RECOMMENDATIONS AND DISCUSSION: This is a 49-year-old woman, who presented with multiple complex medical issues, we will monitor the patient closely. We will initiate intensive bronchodilators, steroids, and empiric antibiotics. Serum procalcitonin and D-dimer will be checked. D-dimer is positive. I recommend CT angio of chest. Closely follow with Pulmonary. Resume the home medications once they are confirmed. Once again, the prognosis is guarded. Further recommendations to follow. See orders for further details. MMODL / IJN: [id number] /
[2024-06-01] MEDS: CITALOPRAM HYDROBROMIDE 20 MG TAB PO SCH (07:50)
[2024-06-01] MEDS: ATORVASTATIN 10 MG TAB PO SCH (07:50)
[2024-06-01] MEDS: ALBUTEROL HFA INHALER INHALATION PRN (08:27)
[2024-06-01] MEDS: TIOTROPIUM 2.5 MCG INHALER INHALATION SCH (08:27)
[2024-06-01 08:52] LABS: Basophils # (A) 0.02 X 10*3/uL (0.00-0.10); Basophils % (A) 0.2 %; Eosinophils # (A) 0 X 10*3/uL (0.04-0.35); Eosinophils % (A) 0 %; HCT 36.9 % (37.2-46.3); HGB 11.3 g/dL (12.0-15.0); Lymphocytes # (A) 0.67 X 10*3/uL (0.90-5.00); Lymphocytes % (A) 7.5 %; MCH 26.3 pg (27.0-32.0); MCHC 30.6 g/dL (32.0-37.0); Mean Platelet Volume 9.2 FL (9.5-12.2); Monocytes # (A) 0.41 X 10*3/uL (0.20-1.00); Monocytes % (A) 4.6 %; NRBC Per 100 WBC 0 X 10*3/uL (0.00-0.01); Neutrophils # (A) 7.44 X 10*3/uL (1.80-7.70); Neutrophils % (A) 83.2 %; Platelet Count 247 X 10*3/uL (140-440); RBC 4.29 X 10*6/uL (4.10-5.20); RDW 13.9 % (11.5-14.5); WBC 8.94 X 10*3/uL (4.50-10.00)
[2024-06-01 08:58] LABS: ALT 16 U/L (8-44); AST 8 U/L (13-35); Albumin 3.6 g/dL (3.8-4.9); Alkaline Phosphatase 66 U/L (41-126); BUN/Creat Ratio 38.83 Ratio (12.00-20.00); Blood Urea Nitrogen 23.3 mg/dL (9.0-27.0); Calcium 8.8 mg/dL (8.7-10.3); Carbon Dioxide 37.6 mmol/L (21.6-31.8); Chloride 90 mmol/L (96-109); Glucose 241 mg/dL (70-110); Potassium 4.5 mmol/L (3.5-5.5); Sodium 136 mmol/L (135-145); Total Bilirubin 0.2 mg/dL (0.3-1.2); Total Protein 5.6 g/dL (6.2-8.2)
[2024-06-01] MEDS ORDERED: SPIRONOLACTONE 25 MG TAB PO SCH (09:00)
[2024-06-01] MEDS ORDERED: PANTOPRAZOLE 40 MG TABLET PO SCH (09:00)
[2024-06-01] MEDS ORDERED: LOSARTAN 50 MG TAB PO SCH (09:00)
[2024-06-01] MEDS: ALBUTEROL HFA INHALER INHALATION SCH (11:56)
--- NOTE | 2024-06-01 12:45 | P.PN ---
Subjective Progress Note Date: 06/01/24 This is another hospitalization for this 49-year-old female patient, just discharged home on May 28, 2024 following a COPD exacerbation. She presented here again yesterday May 30, 2024 with complaints of increasing shortness of breath cough and congestion. She also has complaints of generalize d pain and is asking for more pain medication. States she has now quit smoking. Chest x-ray reveals no acute cardiopulmonary process. White count 16.7. Hemoglobin 13.3. Platelets 227. Sodium 136. Potassium 5.2. Bicarb 38. BUN 49. Creatinine 0.74. Glucose 191. proBNP 95. She is seen in consultation in the emergency department. Sitting up on the stretcher. Awake and alert in no acute distress. Lung sounds are clear. Diminished. The patient is seen today June 01, 2024 in follow-up on the regular medical floor. She is currently sitting up in bed. Awake and alert in no acute distress. Maintaining O2 saturations in the 90s on 3 L/min per nasal cannula. White count 8.9. Hemoglobin 11.3. Platelets 247. D-dimer 0.17. Sodium 136. Potassium 4.5. Bicarb 37. BUN 23. Creatinine 0.6. Glucose 241. She is continued on Symbicort, albuterol, Solu-Medrol, Singulair, Spiriva. NicoDerm patch in place. Remains on doxycycline. Objective - Vital Signs Vital signs: Vital Signs Temp 98.3 F 06/01/24 07:30 Pulse 82 06/01/24 07:30 Resp 20 06/01/24 07:30 BP 182/95 06/01/24 07:30 Pulse Ox 96 06/01/24 08:34 FiO2 50 05/31/24 00:39 Intake & Output 05/31/24 06/01/24 06/01/24 18:59 06:59 18:59 Intake Total 540 Balance 540 Weight 81.193 kg 104 kg Intake: Oral 540 Other: Voiding Method Toilet # Voids 2 - Exam GENERAL EXAM: Alert, 49-year-old female, sitting up in bed, on 3 L nasal cannula, comfortable in no apparent distress. HEAD: Normocephalic. EYES: Normal reaction of pupils, equal size. NOSE: Clear with pink turbinates. THROAT: No erythema or exudates. NECK: No masses, no JVD. CHEST: No chest wall deformity. LUNGS: Equal air entry with no crackles, wheeze, rhonchi or dullness. Diminished CVS: S1 and S2 normal with no audible murmur, regular rhythm. ABDOMEN: No hepatosplenomegaly, normal bowel sounds, no guarding or rigidity. SPINE: No scoliosis or deformity SKIN: No rashes CENTRAL NERVOUS SYSTEM: No focal deficits, tone is normal in all 4 extremities. EXTREMITIES: There is no peripheral edema. No clubbing, no cyanosis. Peripheral pulses are intact. - Labs CBC & Chem 7: 06/01/24 04:08 06/01/24 04:03 Labs: Abnormal Lab Results - Last 24 Hours (Table) 06/01/24 06/01/24 Range/Units 04:03 04:08 Hgb 11.3 L (12.0-15.0) g/dL Hct 36.9 L (37.2-46.3) % MCH 26.3 L (27.0-32.0) pg MCHC 30.6 L (32.0-37.0) g/dL MPV 9.2 L (9.5-12.2) FL Immature Gran # 0.40 H (0.00-0.04) X 10*3/uL Lymphocytes # 0.67 L (0.90-5.00) X 10*3/uL Eosinophils # 0 L (0.04-0.35) X 10*3/uL Chloride 90 L (96-109) mmol/L Carbon Dioxide 37.6 H (21.6-31.8) mmol/L BUN/Creatinine Ratio 38.83 H (12.00-20.00) Ratio Glucose 241 H (70-110) mg/dL Total Bilirubin 0.2 L (0.3-1.2) mg/dL AST 8 L (13-35) U/L Total Protein 5.6 L (6.2-8.2) g/dL Albumin 3.6 L (3.8-4.9) g/dL Microbiology - Last 24 Hours (Table) 05/30/24 21:51 Blood Culture - Preliminary Blood Assessment and Plan Assessment: Mild exacerbation of COPD with secondary shortness of breath Chronic pain syndrome secondary to fibromyalgia, requesting more pain medication Recent discharge May 28, 2024 following acute on chronic hypoxic respiratory failure 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 Fibromyalgia Hypertension Hyperlipidemia History of seizure disorder History of CVA Irritable bowel disease Chronic pancreatic insufficiency/fibrosis Migraines Nephrolithiasis Rheumatoid arthritis Plan: The patient was seen and evaluated Labs and medications reviewed Currently stable on 3 L nasal cannula Continue the current treatment plan We will continue to follow I have personally seen and examined the patient, performed the documentation and the assessment and plan as written. Number of minutes spent on the visit: 10 Dictation was produced using [employer] dictation software. Please excuse any grammatical, word or spelling errors.
[2024-06-01] MEDS: ONDANSETRON 4 MG/2 ML VIAL IVP PRN (14:26)
[2024-06-01 15:02] LABS: Appearance,Urine Clear (Clear); Bilirubin,Urine Negative (Negative); Blood,Urine Negative (Negative); Color,Urine Colorless; Glucose,Urine (UA) 4+ (Negative); Ketones,Urine Negative (Negative); Leukocyte Esterase,Urine Negative (Negative); Nitrite,Urine Negative (Negative); PH, Urine 7.5 (5.0-8.0); Protein,Urine Negative (Negative); Specific Gravity,Urine 1.013 (1.001-1.035); Urobilinogen,Urine <2.0 mg/dL (<2.0)
[2024-06-01] MEDS: BARIUM SULFATE 2% - 450 ML ORAL.SUSP BOTTLE PO PRN (16:02)
--- NOTE | 2024-06-01 17:48 | CDI ---
Documentation Clarification Form Date: 06/01/2024 04:57:17 PM From: Mary Cabrera Phone: [phone] Admit Date: 05/30/2024 10:28:00 PM Patient Name: Yolie Yeboah Visit Number: [id number] Discharge Date: ATTENTION: The Clinical Documentation Specialists (CDI) and [facility] Coding Staff appreciate your assistance in clarifying documentation. Please respond to the clarification below the line at the bottom and electronically sign. The CDI & [facility] Coding staff will review the response and follow-up if needed. Please note: Queries are made part of the Legal Health Record. If you have any questions, please contact the author of this message via ITS. Dr. Deyanira Hooper Your patient has documentation of cough and wheezing. Acute on chronic shortness of breath. Based on this information and the findings below, is there an additional diagnosis that is clinically appropriate for this patient? History/Risk Factors: COPD, Former smoker, Heart Failure, COPD oxygen dependent, CVA/TIA, Fibromyalgia, Hypertension, Pneumonia, Rheumatoid Arthritis Tobacco use: Chronic tobacco dependence Home oxygen: Clinical Indicators: 49-year-old female patient, just discharged home on May 28, 2024 for COPD. EMS found her hypoxia at 80% RA Lungs: Positive for shortness of breath, cough congestion. CXR: reveals no acute cardiopulmonary process. Labored, talks in phrases, SOB 1113 Vital signs: 103/87 90 24 97.7 93 CAP 05/30 Labs: WBC 16.7 Blood Gas VGB pH 7.53 VBG pCO2 45, VBG HCO3 38 Anion Gap 7,CO2 38, BUN [address] CT 0.74, Lactic Acid 2.9 06/01 VS 155/87 74 20 98.6 95% 3/L Treatment: Ventolin Inhaler QID Symbicort Inhaler BID Doxycycline 100MG IVPB Q 12 HRS Solu-Medrol 50MG IVPB Q6 HRS Aldactone 25 MG PO Daily Monitor O2 Sats (Titrate) Is there an additional diagnosis that is clinically appropriate for this patient? [ ] Acute Hypoxic Respiratory Failure [ x ] Acute on Chronic Hypoxic Respiratory Failure [ ] Chronic Hypoxic Respiratory Failure [ ] No additional diagnosis/not clinically significant [ ] Other Diagnosis, please specify [ ] Unable to determine (Template Last Revised: July 2023) MTDD
--- NOTE | 2024-06-01 20:54 | CT ---
EXAMINATION TYPE: CT abdomen pelvis wo con DATE OF EXAM: 06/01/2024 8:32 PM COMPARISON: None. CLINICAL INDICATION: Female, 49 years old with history of ruq pain, abdominal pain, abdominal pain TECHNIQUE: Axial images were obtained from above the diaphragm to the pubic rami in the axial plane a t 5 mm thick sections. Reconstructed images are reviewed on the computer in the coronal plane. CONTRAST: mL of . Study performed with Oral Contrast DLP: 768.1 mGycm, Automated exposure control for dose reduction was used. FINDINGS: Limited CT sections are obtained the lung bases. The lung bases are clear. CT ABDOMEN: Liver: Small calcification is in the periphery of the liver, present previously. Spleen: Normal Pancreas: Normal Adrenal glands: The adrenal glands are normal. Gallbladder: Surgically absent Kidneys: No masses are evident. No hydronephrosis is present. No cysts are present. No renal stone s are evident. Aorta: Vascular calcification is within the aorta. Inferior vena cava: Normal. CT PELVIS: Loops of bowel within the abdomen and pelvis are normal. There are loops of bowel which are incom pletely distended or lack oral contrast limiting their evaluation. Appendix: Surgically absent Urinary bladder: Decompressed with limited evaluation Genitourinary structures: Uterus and ovaries are not identified. Osseous structures: No suspicious lytic or sclerotic lesions. IMPRESSION: 1. No suspicious abnormality right upper quadrant to account for pain [facility] Katiana Ames, , 06/01/2024 8:52 PM
--- NOTE | 2024-06-02 05:12 | PN ---
PROGRESS NOTE DATE OF SERVICE: 06/01/2024 SUBJECTIVE: This is a 49-year-old woman who was admitted with COPD acute exacerbation, acute purulent tracheobronchitis, is being closely monitored at this time. The patient is extremely short of breath. The patient is also complaining of pain in the right lower ankle also. The patient has some air under the diaphragm also. Lactic acid is elevated on admission. Procardia is not available. Dr. Hooper is following the patient closely. PAST MEDICAL HISTORY: Reviewed. REVIEW OF SYSTEMS: Fourteen-point review is negative except as mentioned earlier. CURRENT MEDICATIONS: Noted. PHYSICAL EXAMINATION: VITAL SIGNS: Pulse is 82, blood pressure 182/94, respirations 20. HEENT: Conjunctivae normal. NECK: No JVD. CARDIOVASCULAR: S1, S2. RESPIRATIONS: Breath sounds diminished at the bases. A few scattered rhonchi and crackles. ABDOMEN: Soft, mild diffuse tenderness in the right loin angle. LEGS: No edema. NERVOUS SYSTEM: No focal deficits. LABORATORY DATA: Reviewed. ASSESSMENT: 1. Chronic obstructive pulmonary disease acute exacerbation with acute purulent tracheobronchitis. 2. Severe right loin, renal angle tenderness with suspicious air under the right diaphragm. 3. Elevated plasma lactic acid, present on admission. 4. History of congestive heart failure. 5. Hypertension. 6. History of recent COVID-19. 7. History of rheumatoid arthritis. 8. History of pancreatic fibrosis. 9. Multiple complex medical issues. RECOMMENDATIONS AND DISCUSSION: Recommend to continue current medications and continue symptomatic treatment. Recommend CT scan of the abdomen and pelvis with p.o. dye. Continue with doxycycline. Continue with steroids, pain management symptomatically. Otherwise, Pulmonary and surgical consultation. Guarded prognosis. Further recommendations to follow. MMODL / IJN: [id number] /
--- NOTE | 2024-06-02 12:54 | P.PN ---
Subjective Progress Note Date: 06/02/24 This is another hospitalization for this 49-year-old female patient, just discharged home on May 28, 2024 following a COPD exacerbation. She presented here again yesterday May 30, 2024 with complaints of increasing shortness of breath cough and congestion. She also has complaints of generalize d pain and is asking for more pain medication. States she has now quit smoking. Chest x-ray reveals no acute cardiopulmonary process. White count 16.7. Hemoglobin 13.3. Platelets 227. Sodium 136. Potassium 5.2. Bicarb 38. BUN 49. Creatinine 0.74. Glucose 191. proBNP 95. She is seen in consultation in the emergency department. Sitting up on the stretcher. Awake and alert in no acute distress. Lung sounds are clear. Diminished. The patient is seen today June 01, 2024 in follow-up on the regular medical floor. She is currently sitting up in bed. Awake and alert in no acute distress. Maintaining O2 saturations in the 90s on 3 L/min per nasal cannula. White count 8.9. Hemoglobin 11.3. Platelets 247. D-dimer 0.17. Sodium 136. Potassium 4.5. Bicarb 37. BUN 23. Creatinine 0.6. Glucose 241. She is continued on Symbicort, albuterol, Solu-Medrol, Singulair, Spiriva. NicoDerm patch in place. Remains on doxycycline. The patient is seen today June 02, 2024 in follow-up on the regular medical floor. Resting in bed. Awake and alert in no acute distress. Continues with some dry cough. Maintaining good O2 saturations in the mid 90s on 3 L/min per nasal cannula. Afebrile. Sputum culture showing gram-negative bacilli. Blood culture reveals no growth. She is continued on doxycycline. Continued on Symbicort, Spiriva, Singulair, albuterol, Solu-Medrol. NicoDerm patch in place. Objective - Vital Signs Vital signs: Vital Signs Temp 98.1 F 06/02/24 07:07 Pulse 73 06/02/24 07:07 Resp 17 06/02/24 07:07 BP 175/97 06/02/24 07:07 Pulse Ox 95 06/02/24 07:07 FiO2 50 05/31/24 00:39 Intake & Output 06/01/24 06/02/24 06/02/24 18:59 06:59 18:59 Weight 113 kg Other: Voiding Method Toilet Toilet # Voids 2 3 - Exam GENERAL EXAM: Alert, 49-year-old female, on 3 L nasal cannula, comfortable in no apparent distress. HEAD: Normocephalic. EYES: Normal reaction of pupils, equal size. NOSE: Clear with pink turbinates. THROAT: No erythema or exudates. NECK: No masses, no JVD. CHEST: No chest wall deformity. LUNGS: Equal air entry with no crackles, wheeze, rhonchi or dullness. Diminished CVS: S1 and S2 normal with no audible murmur, regular rhythm. ABDOMEN: No hepatosplenomegaly, normal bowel sounds, no guarding or rigidity. SPINE: No scoliosis or deformity SKIN: No rashes CENTRAL NERVOUS SYSTEM: No focal deficits, tone is normal in all 4 extremities. EXTREMITIES: There is no peripheral edema. No clubbing, no cyanosis. Peripheral pulses are intact. 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 Fibromyalgia Hypertension Hyperlipidemia History of seizure disorder History of CVA Irritable bowel disease Chronic pancreatic insufficiency/fibrosis Migraines Nephrolithiasis Rheumatoid arthritis Plan: The patient was seen and evaluated Labs and medications reviewed Stable on 3 L nasal cannula Continue the current treatment plan Add nystatin swish and swallow Home once cleared by medicine I have personally seen and examined the patient, performed the documentation and the assessment and plan as written. Number of minutes spent on the visit: 10 Dictation was produced using [employer] dictation software. Please excuse any grammatical, word or spelling errors.
[2024-06-02] MEDS: NYSTATIN 100,000 UNIT/ML SUSP 500,000 UNIT/5 ML CUP PO SCH ×2 (13:20→16:50)
--- NOTE | 2024-06-02 15:48 | P.GSCN ---
History of Present Illness Consult date: 06/02/24 History of present illness: Patient is a 49-year-old female who presents with right upper quadrant as well as right back and flank pain. Patient states that she has intermittent right flank and back pain for the past year. Patient states that she has a past medical history of nephrolithiasis with prior intervention. She states that she has had intermittent pain similar to her prior nephrolithiasis, but states that she had worsening of pain over the past 24 hours prompting her presentation to [facility] emergency department. Currently patient states that her pain is improved. She denies any current abdominal pain nausea or emesis, but states that she continues to have right back and flank pain. She states her pain is no worse with p.o. intake. No diarrhea, melena or hematochezia. No dysuria or hematuria. No fevers or chills. No shortness of breath or chest pain. No headache or blurry vision. Review of Systems Negative except for as stated above Past Medical History Past Medical History: Heart Failure, COPD, CVA/TIA, Fibromyalgia, Hypertension, Pneumonia, Rheumatoid Arthritis (RA), Seizure Disorder, Syncope Additional Past Medical History / Comment(s): 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 IBS, cellulitis of the chin, CVA about 1 year ago(no residual) History of Any Multi-Drug Resistant Organisms: MRSA Year Discovered:: 07/2016 MDRO Source:: [place] Past Surgical History: Appendectomy, Section, Cholecystectomy, Hysterectomy, Tubal Ligation Additional Past Surgical History / Comment(s): oral surgery . Pancreas biopsy May 2015. Past Anesthesia/Blood Transfusion Reactions: No Reported Reaction Past Psychological History: ADD/ADHD, Anxiety, Bipolar, Depression Additional Psychological History / Comment(s): Pt resides with her spouse and other family members. Pt states borderline personality disorder diagnosed around 2010. She has a cane and walker but does not normally use them. Occasional marijuana/edibles Smoking Status: Former smoker Past Alcohol Use History: None Reported Additional Past Alcohol Use History / Comment(s): Pt started smoking in 1983 and was a 3 ppd smoker but about 6 months ago cut down to 3 cigarettes a day. Patient does vape in between Past Drug Use History: Marijuana Additional Drug Use History / Comment(s): Says she occasionally has edible marijuana- a couple times within the last year. - Past Family History Father History Unknown: Yes Family Medical History: No Reported History Additional Family Medical History / Comment(s): Pt adopted Mother History Unknown: Yes Additional Family Medical History / Comment(s): Pt adopted Medications and Allergies Home Medications Medication Instructions Recorded Confirmed Type Spironolactone [Aldactone] 25 mg PO DAILY 02/05/17 05/31/24 History carvediloL [Coreg] 25 mg PO BID 03/26/21 05/31/24 History oxyCODONE-APAP 10-325MG [Percocet 1 tab PO TID 03/16/22 05/31/24 History 10-325 mg] Citalopram Hydrobromide [CeleXA] 60 mg PO DAILY 01/27/23 05/31/24 History Pantoprazole [Protonix] 40 mg PO DAILY 05/29/23 05/31/24 History Albuterol Inhaler [Ventolin Hfa 2 puff INHALATION RT-QID PRN 04/02/24 05/31/24 History Inhaler] Famotidine 20 mg PO BID 04/02/24 05/31/24 History Montelukast [Singulair] 10 mg PO HS PRN 04/02/24 05/31/24 History Rosuvastatin Calcium [Crestor] 5 mg PO DAILY 04/02/24 05/31/24 History Xanax(Unknown Dose) 1 tab PO DAILY PRN 04/02/24 05/31/24 History rOPINIRole HCL [Requip] 0.25 mg PO HS 04/02/24 05/31/24 History traZODone HCL [Desyrel] 50 mg PO HS 04/02/24 05/31/24 History Budesonide-Formot 160-4.5 Mcg 2 puff INHALATION RT-BID #1 each 04/06/24 05/31/24 Rx [Symbicort 160-4.5 Mcg Inhaler] Ipratropium-Albuterol Nebulize 3 ml INHALATION RT-Q4H #120 each 04/06/24 05/31/24 Rx [Duoneb 0.5 mg-3 mg/3 ml Soln] Losartan [Cozaar] 100 mg PO DAILY #30 tab 04/06/24 05/31/24 Rx Nicotine 14Mg/24Hr Patch [Habitrol] 1 patch TRANSDERM DAILY PRN 04/22/24 05/31/24 History Allergies Allergy/AdvReac Type Severity Reaction Status Date / Time adhesive Allergy Rash/Hives Verified 05/31/24 09:30 amoxicillin Allergy Anaphylaxis Verified 05/31/24 09:30 azithromycin [From Zithromax] Allergy Anaphylaxis Verified 05/31/24 09:30 cephalexin monohydrate Allergy Anaphylaxis Verified 05/31/24 09:30 [From Keflex] ciprofloxacin Allergy Anaphylaxis Verified 05/31/24 09:30 clindamycin Allergy Anaphylaxis Verified 05/31/24 09:30 Iodinated Contrast Media Allergy Anaphylaxis Verified 05/31/24 09:30 [Iodinated Contrast- Oral and IV Dye] ketorolac [From Toradol] Allergy Anaphylaxis Verified 05/31/24 09:30 levofloxacin [From Levaquin] Allergy Rash/Hives Verified 05/31/24 09:30 naproxen Allergy Anaphylaxis Verified 05/31/24 09:30 NSAIDS (Non-Steroidal Allergy Rash/Hives Verified 05/31/24 09:30 Anti-Inflamma orphenadrine [From Norflex] Allergy Anaphylaxis Verified 05/31/24 09:30 pineapple Allergy Anaphylaxis Verified 05/31/24 09:30 shellfish derived Allergy Anaphylaxis Verified 05/31/24 09:30 Sulfa (Sulfonamide Allergy Anaphylaxis Verified 05/31/24 09:30 Antibiotics) sulfamethoxazole Allergy Anaphylaxis Verified 05/31/24 09:30 [From Bactrim] tramadol Allergy Anaphylaxis Verified 05/31/24 09:30 trimethoprim [From Bactrim] Allergy Anaphylaxis Verified 05/31/24 09:30 Surgical - Exam Vital Signs Temp Pulse Resp BP Pulse Ox 97.7 F 90 24 103/87 93 L 05/30/24 21:37 05/30/24 21:37 05/30/24 21:37 05/30/24 21:37 05/30/24 21:37 Gen: AxO, NAD Pulm: non-labored respirations Abd: soft, Non-tender. Non-distended. No guarding/rebound/rigidity Extrem: no edema seen Results - Labs 06/01/24 04:08 06/01/24 04:03 Microbiology - Last 24 Hours (Table) 06/01/24 12:01 Gram Stain - Preliminary Sputum Sputum Culture - Preliminary Gram Neg Bacilli 05/30/24 21:51 Blood Culture - Preliminary Blood Assessment and Plan Assessment: Patient is a 49 year old female with a PMH of nephrolithiasis who presents with RUQ pain as well as right flank and back pain. Plan: -CT reviewed: prior cholecystectomy without evidence of acute intraabdominal pathology -Diet as tolerated -PRN pain and nausea control -Encourage ambulation -DVT/GI PPx -Recommend urology consultation given history of nephrolithiasis -No acute surgical intervention Bernardo Jackson M.D. General Surgery
[2024-06-02] MEDS: LIDOCAINE 4% PATCH TOPICAL SCH (17:50)
[2024-06-02] MEDS: amLODIPine 10 MG TAB PO SCH (17:50)
[2024-06-02] MEDS: ALPRAZolam 0.5 MG TAB PO STA (18:43)
--- NOTE | 2024-06-03 08:42 | PN ---
PROGRESS NOTE DATE OF SERVICE: 06/02/2024 SUBJECTIVE: This is a 49-year-old woman, who was admitted with COPD acute exacerbation, also had significant right loin pain also. The patient had abdominal pelvis CT scan yesterday, which showed no acute abnormality. PAST MEDICAL HISTORY: Reviewed. REVIEW OF SYSTEMS: A 14-point review is negative except as mentioned earlier. CURRENT MEDICATIONS: Reviewed. PHYSICAL EXAMINATION: VITAL SIGNS: Pulse is 77, blood pressure 189/94, respirations 18. HEENT: Conjunctivae normal. NECK: No JVD. CARDIOVASCULAR: S1, S2. RESPIRATIONS: Breath sounds diminished at the bases. A few scattered rhonchi and crackles. ABDOMEN: Soft, obese. LEGS: No edema. NERVOUS SYSTEM: Nonfocal. LABORATORY DATA: Reviewed. ASSESSMENT: 1. Chronic obstructive pulmonary disease acute exacerbation with acute purulent tracheobronchitis. 2. Severe right loin, renal angle tenderness with suspicious air under the right diaphragm with no acute findings on the CT scan of the abdomen. 3. Elevated plasma lactic acid, present on admission, improved. 4. History of congestive heart failure. 5. Hypertension. 6. History of recent COVID-19. 7. History of rheumatoid arthritis and history of pancreatic fibrosis. 8. Multiple complex medical issues. RECOMMENDATIONS AND DISCUSSION: Recommend to continue current management and continue symptomatic treatment. Otherwise, at this time, I recommend to adjust the blood pressure medications. Continue with bronchodilators, steroids, and rest of medications. Continue with doxycycline. Prognosis guarded. Further recommendations to follow. MMFUENTESL / PIEDADN: [id number] /
--- NOTE | 2024-06-03 11:14 | P.PN ---
Subjective Progress Note Date: 06/03/24 This is another hospitalization for this 49-year-old female patient, just discharged home on May 28, 2024 following a COPD exacerbation. She presented here again yesterday May 30, 2024 with complaints of increasing shortness of breath cough and congestion. She also has complaints of generalize d pain and is asking for more pain medication. States she has now quit smoking. Chest x-ray reveals no acute cardiopulmonary process. White count 16.7. Hemoglobin 13.3. Platelets 227. Sodium 136. Potassium 5.2. Bicarb 38. BUN 49. Creatinine 0.74. Glucose 191. proBNP 95. She is seen in consultation in the emergency department. Sitting up on the stretcher. Awake and alert in no acute distress. Lung sounds are clear. Diminished. The patient is seen today June 01, 2024 in follow-up on the regular medical floor. She is currently sitting up in bed. Awake and alert in no acute distress. Maintaining O2 saturations in the 90s on 3 L/min per nasal cannula. White count 8.9. Hemoglobin 11.3. Platelets 247. D-dimer 0.17. Sodium 136. Potassium 4.5. Bicarb 37. BUN 23. Creatinine 0.6. Glucose 241. She is continued on Symbicort, albuterol, Solu-Medrol, Singulair, Spiriva. NicoDerm patch in place. Remains on doxycycline. The patient is seen today June 02, 2024 in follow-up on the regular medical floor. Resting in bed. Awake and alert in no acute distress. Continues with some dry cough. Maintaining good O2 saturations in the mid 90s on 3 L/min per nasal cannula. Afebrile. Sputum culture showing gram-negative bacilli. Blood culture reveals no growth. She is continued on doxycycline. Continued on Symbicort, Spiriva, Singulair, albuterol, Solu-Medrol. NicoDerm patch in place. The patient is seen today June 03, 2024 in follow-up on the regular medical floor. She is awake and alert in no acute distress. Continues with a loose congested cough. No fever or chills. Maintaining O2 saturations in the 90s on 3 L/min per nasal cannula. Sputum culture positive for Pseudomonas aeruginosa. She is currently on doxycycline. Remains on bronchodilators and steroids. NicoDerm patch in place. Objective - Vital Signs Vital signs: Vital Signs Temp 98 F 06/03/24 07:39 Pulse 69 06/03/24 07:39 Resp 18 06/03/24 07:39 BP 172/91 06/03/24 07:39 Pulse Ox 94 L 06/03/24 07:55 FiO2 50 05/31/24 00:39 Intake & Output 06/02/24 06/03/24 06/03/24 18:59 06:59 18:59 Intake Total 2280 180 Balance 2280 180 Weight 113.8 kg Intake: Oral 2280 180 Other: Voiding Method Toilet # Voids 1 6 - Exam GENERAL EXAM: Alert, oriented 49-year-old female, sitting up in bed, on 3 L nasal cannula, comfortable in no apparent distress. HEAD: Normocephalic. EYES: Normal reaction of pupils, equal size. NOSE: Clear with pink turbinates. THROAT: No erythema or exudates. NECK: No masses, no JVD. CHEST: No chest wall deformity. LUNGS: Equal air entry with no crackles, wheeze, rhonchi or dullness. Dimi nished CVS: S1 and S2 normal with no audible murmur, regular rhythm. ABDOMEN: No hepatosplenomegaly, normal bowel sounds, no guarding or rigidity. SPINE: No scoliosis or deformity SKIN: No rashes CENTRAL NERVOUS SYSTEM: No focal deficits, tone is normal in all 4 extremities. EXTREMITIES: There is no peripheral edema. No clubbing, no cyanosis. Peripheral pulses are intact. - Labs CBC & Chem 7: 06/01/24 04:08 06/01/24 04:03 Labs: Microbiology - Last 24 Hours (Table) 06/01/24 12:01 Gram Stain - Final Sputum Sputum Culture - Final Pseudomonas aeruginosa 05/30/24 21:51 Blood Culture - Preliminary Blood 06/01/24 14:00 Urine Culture - Final Urine,Voided Assessment and Plan Assessment: Mild exacerbation of COPD secondary to Pseudomonas aeruginosa Chronic pain syndrome secondary to fibromyalgia, requested more pain medication Recent discharge May 28, 2024 following acute on chronic hypoxic respiratory failure secondary COPD exacerbation, has been oxygen dependent at 2 L/min nasal cannula on outpatient basis Chronic tobacco dependence Recent COVID-19 infection, no evidence of pneumonia, D-dimer is low, no previous vaccination, no previous infections Acute on chronic shortness of breath secondary to above Left upper lobe atelectasis, noted on a previous CAT scan of the chest that was done on 09/23/2022. Fibromyalgia Hypertension Hyperlipidemia History of seizure disorder History of CVA Irritable bowel disease Chronic pancreatic insufficiency/fibrosis Migraines Nephrolithiasis Rheumatoid arthritis Plan: The patient was seen and evaluated Microbiology and medications reviewed Sputum positive for Pseudomonas aeruginosa Multiple antibiotic allergies Consult infectious disease I have personally seen and examined the patient, performed the documentation and the assessment and plan as written. Number of minutes spent on the visit: 10 Dictation was produced using [employer] dictation software. Please excuse any grammatical, word or spelling errors.
--- NOTE | 2024-06-03 12:19 | P.PN ---
Subjective Progress Note Date: 06/03/24 Patient still complains of epigastric pain. On exam vital signs appear stable. Abdomen soft. Patient be scheduled for EGD in the a.m. Objective - Vital Signs Vital signs: Vital Signs Temp 98 F 06/03/24 07:39 Pulse 69 06/03/24 07:39 Resp 18 06/03/24 07:39 BP 172/91 06/03/24 07:39 Pulse Ox 94 L 06/03/24 07:55 FiO2 50 05/31/24 00:39 Intake & Output 06/02/24 06/03/24 06/03/24 18:59 06:59 18:59 Intake Total 2280 180 Balance 2280 180 Weight 113.8 kg Intake: Oral 2280 180 Other: Voiding Method Toilet Toilet # Voids 1 6 - Labs CBC & Chem 7: 06/01/24 04:08 06/01/24 04:03 Labs: Microbiology - Last 24 Hours (Table) 06/01/24 12:01 Gram Stain - Final Sputum Sputum Culture - Final Pseudomonas aeruginosa 05/30/24 21:51 Blood Culture - Preliminary Blood 06/01/24 14:00 Urine Culture - Final Urine,Voided
[2024-06-03] MEDS: AZTREONAM 2 GM in SODIUM CHLORIDE 0.9% 100 ML IVPB SCH (12:44)
[2024-06-03] MEDS: ALPRAZolam 0.5 MG TAB PO PRN (13:03)
--- NOTE | 2024-06-03 15:11 | CT ---
EXAMINATION TYPE: CT chest wo con DATE OF EXAM: 06/03/2024 3:00 PM COMPARISON: Chest radiograph from same day. Multiple CTs of the chest with most recent on . CLINICAL INDICATION: Female, 49 years old with history of Pneumonia; PHH, COVID pneumonia TECHNIQUE: Multiple axial images were obtained through the chest. Sagittal and coronal reformats were created for review. MIP was performed on a separate workstation. CT DLP: 433.3 mGycm, Automated exposure control for dose reduction was used. FINDINGS: LUNGS/ PLEURA: Linear scarring/atelectasis in the right lower and left upper lobes. The lung parenchy ma otherwise appears unremarkable. AIRWAY: Patent and unremarkable. HEART: Size within normal limits. MEDIASTINUM: No gross evidence of adenopathy. VASCULATURE: No aortic aneurysm. MUSCULOSKELETAL: No acute osseous abnormalities SOFT TISSUES/LYMPH NODES: Unremarkable. LOWER NECK: No significant findings. UPPER ABDOMEN: No significant findings. IMPRESSION: Mild linear scarring/atelectasis in the right lower lobe and lingular portion left upper lobe. Otherw ise, no acute abnormality in the chest. [facility], , 06/03/2024 3:09 PM
[2024-06-03] MEDS ORDERED: DEXTROSE 50% SYRINGE 50 ML IVP PRN ×2 (16:00)
[2024-06-03] MEDS: DOXYCYCLINE 100 MG in SODIUM CHLORIDE 0.9% 100 ML IVPB SCH (16:08)
[2024-06-03 16:37] LABS: Glucose,Whole Blood 348 mg/dL (70-110)
[2024-06-03] MEDS: diphenhydrAMINE 50 MG/ML 1 ML VIAL IVP STA (17:09)
[2024-06-03] MEDS: FAMOTIDINE 20 MG/2 ML VIAL IV STA (17:11)
[2024-06-03] MEDS: methylPREDNISolone SOD SUCCI 125 MG/2 ML VIAL IV STA (17:11)
[2024-06-03 17:41] LABS: Glucose,Whole Blood 379 mg/dL (70-110)
[2024-06-03] MEDS: INSULIN ASPART (NovoLOG) 100 UNIT/ML VIAL SQ SCH (18:16)
[2024-06-03 21:21] LABS: Glucose,Whole Blood 313 mg/dL (70-110)
[2024-06-04] MEDS: EPINEPHrine - Anaphylaxis Kit (1 mg/mL) IM PRN (00:09)
[2024-06-04] MEDS: diphenhydrAMINE 50 MG/ML 1 ML VIAL IVP STA (00:54)
--- NOTE | 2024-06-04 01:45 | XR ---
EXAM: XR Chest, 1 View CLINICAL HISTORY: ITS.REASON XR Reason: anaphylaxis TECHNIQUE: Frontal view of the chest. COMPARISON: Chest x-ray: 05/24/2024 FINDINGS: Lungs: Low lung volumes. Bandlike areas of atelectasis seen at the left lung base.. Bilateral bronchial wall thickening LT>RT.. Pleural space: No pleural effusion. No pneumothorax. Heart: No cardiomegaly. Mediastinum: Prominent bilateral hilar soft tissues: Likely vascular in nature.. Bones/joints: No acute osseous findings IMPRESSION: Low lung volumes. Bandlike atelectatic areas are seen in the lingula/left lower lobe. Bilateral chronic bronchial wall thickening. .
[2024-06-04 06:33] LABS: Glucose,Whole Blood 278 mg/dL (70-110)
--- NOTE | 2024-06-04 07:36 | P.CONS ---
History of Present Illness - Reason for Consult Consult date: 06/03/24 Pseudomonas, multiple antibiotic allergies Requesting physician: Bertha Hooker - Chief Complaint Shortness of breath and cough x days - History of Present Illness Patient is a 49-year-old female with a past medical history significant for fibromyalgia hypertension COPD CVA TIA seizure disorder and syncope with recurrent admission to the hospital for shortness of breath and this patient presented to hospital about 4 days ago for evaluation of increasing shortness of breath cough and congestion along with generalized bodyaches with the patient presenting back to the hospital at this time within 48 hours of discharge on May 28, 2024 patient denies having any fever or any chills and no fever have been recorded during this hospital stay patient denies any headache or URI symptoms has been complaining of mostly shortness of breath on minimal exertion even at rest also having a cough mild to moderate intensity with occasional sputum production no hemoptysis no nausea vomiting no abdominal pain or any diarrhea patient did have white count of 16.7 admission subsequent white count normalized to 8.94 creatinine 0.74 her lactic acid was 2.9 liver enzymes are normal urine has been negative patient did have a chest x-ray no acute cardiopulmonary disease process did have abdominal pelvis CT no suspicious abnormality right upper quadrant to count for the pain patient was treated with IV doxycycline as to right sputum is now growing Pseudomonas aeruginosa keeping in mind the patient did have multiple antibiotic allergies infectious disease was consulted today for further management of antibiotics Review of Systems Positive point and negatives has been mentioned in the HPI, complete review of systems was performed and all other systems are negative Past Medical History Past Medical History: Heart Failure, COPD, CVA/TIA, Fibromyalgia, Hypertension, Pneumonia, Rheumatoid Arthritis (RA), Seizure Disorder, Syncope Additional Past Medical History / Comment(s): 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 IBS, cellulitis of the chin, CVA about 1 year ago(no residual) History of Any Multi-Drug Resistant Organisms: MRSA Year Discovered:: 07/2016 MDRO Source:: [facility] Past Surgical History: Appendectomy, Section, Cholecystectomy, Hysterectomy, Tubal Ligation Additional Past Surgical History / Comment(s): oral surgery . Pancreas biopsy May 2015. Past Anesthesia/Blood Transfusion Reactions: No Reported Reaction Past Psychological History: ADD/ADHD, Anxiety, Bipolar, Depression Additional Psychological History / Comment(s): Pt resides with her spouse and other family members. Pt states borderline personality disorder diagnosed around 2010. She has a cane and walker but does not normally use them. Occasional marijuana/edibles Smoking Status: Former smoker Past Alcohol Use History: None Reported Additional Past Alcohol Use History / Comment(s): Pt started smoking in 1983 and was a 3 ppd smoker but about 6 months ago cut down to 3 cigarettes a day. Patient does vape in between Past Drug Use History: Marijuana Additional Drug Use History / Comment(s): Says she occasionally has edible marijuana- a couple times within the last year. - Past Family History Father History Unknown: Yes Family Medical History: No Reported History Additional Family Medical History / Comment(s): Pt adopted Mother History Unknown: Yes Additional Family Medical History / Comment(s): Pt adopted Medications and Allergies Home Medications Medication Instructions Recorded Confirmed Type Spironolactone [Aldactone] 25 mg PO DAILY 02/05/17 05/31/24 History carvediloL [Coreg] 25 mg PO BID 03/26/21 05/31/24 History oxyCODONE-APAP 10-325MG [Percocet 1 tab PO TID 03/16/22 05/31/24 History 10-325 mg] Citalopram Hydrobromide [CeleXA] 60 mg PO DAILY 01/27/23 05/31/24 History Pantoprazole [Protonix] 40 mg PO DAILY 05/29/23 05/31/24 History Albuterol Inhaler [Ventolin Hfa 2 puff INHALATION RT-QID PRN 04/02/24 05/31/24 H istory Inhaler] Famotidine 20 mg PO BID 04/02/24 05/31/24 History Montelukast [Singulair] 10 mg PO HS PRN 04/02/24 05/31/24 History Rosuvastatin Calcium [Crestor] 5 mg PO DAILY 04/02/24 05/31/24 History Xanax(Unknown Dose) 1 tab PO DAILY PRN 04/02/24 05/31/24 History rOPINIRole HCL [Requip] 0.25 mg PO HS 04/02/24 05/31/24 History traZODone HCL [Desyrel] 50 mg PO HS 04/02/24 05/31/24 History Budesonide-Formot 160-4.5 Mcg 2 puff INHALATION RT-BID #1 each 04/06/24 05/31/24 Rx [Symbicort 160-4.5 Mcg Inhaler] Ipratropium-Albuterol Nebulize 3 ml INHALATION RT-Q4H #120 each 04/06/24 05/31/24 Rx [Duoneb 0.5 mg-3 mg/3 ml Soln] Losartan [Cozaar] 100 mg PO DAILY #30 tab 04/06/24 05/31/24 Rx Nicotine 14Mg/24Hr Patch [Habitrol] 1 patch TRANSDERM DAILY PRN 04/22/24 History Allergies Allergy/AdvReac Type Severity Reaction Status Date / Time adhesive Allergy Rash/Hives Verified 05/31/24 09:30 amoxicillin Allergy Anaphylaxis Verified 05/31/24 09:30 azithromycin [From Zithromax] Allergy Anaphylaxis Verified 05/31/24 09:30 cephalexin monohydrate Allergy Anaphylaxis Verified 05/31/24 09:30 [From Keflex] ciprofloxacin Allergy Anaphylaxis Verified 05/31/24 09:30 clindamycin Allergy Anaphylaxis Verified 05/31/24 09:30 Iodinated Contrast Media Allergy Anaphylaxis Verified 05/31/24 09:30 [Iodinated Contrast- Oral and IV Dye] ketorolac [From Toradol] Allergy Anaphylaxis Verified 05/31/24 09:30 levofloxacin [From Levaquin] Allergy Rash/Hives Verified 05/31/24 09:30 naproxen Allergy Anaphylaxis Verified 05/31/24 09:30 NSAIDS (Non-Steroidal Allergy Rash/Hives Verified 05/31/24 09:30 Anti-Inflamma orphenadrine [From Norflex] Allergy Anaphylaxis Verified 05/31/24 09:30 pineapple Allergy Anaphylaxis Verified 05/31/24 09:30 shellfish derived Allergy Anaphylaxis Verified 05/31/24 09:30 Sulfa (Sulfonamide Allergy Anaphylaxis Verified 05/31/24 09:30 Antibiotics) sulfamethoxazole Allergy Anaphylaxis Verified 05/31/24 09:30 [From Bactrim] tramadol Allergy Anaphylaxis Verified 05/31/24 09:30 trimethoprim [From Bactrim] Allergy Anaphylaxis Verified 05/31/24 09:30 Physical Exam Vitals: Vital Signs Temp Pulse Resp BP Pulse Ox 06/03/24 07:55 94 L 06/03/24 07:39 98 F 69 18 172/91 92 L 06/03/24 01:21 96.2 F L 70 16 172/91 96 06/02/24 19:38 98.0 F 71 16 176/91 93 L 06/02/24 14:04 98.2 F 77 18 189/96 93 L Intake and Output 06/02/24 06/03/24 06/03/24 22:59 06:59 14:59 Intake Total 480 1800 180 Balance 480 1800 180 Intake: Oral 480 1800 180 Other: Voiding Method Toilet # Voids 3 6 Weight 113.8 kg GENERAL DESCRIPTION: Middle-aged female lying in bed, no distress. No tachypnea or accessory muscle of respiration use. HEENT: Shows Pallor , no scleral icterus. Oral mucous membrane is dry. No pharyngeal erythema or thrush NECK: Trachea central, no thyromegaly. LUNGS: Unlabored breathing. Coarse breath sounds bilaterally HEART: S1, S2, regular rate and rhythm. No loud murmur ABDOMEN: Soft, no tenderness , guarding or rigidity, no organomegaly EXTREMITIES: No edema of feet. SKIN: No rash, no masses palpable. NEUROLOGICAL: The patient is awake, alert, oriented x3, mood and affect normal. Results CBC & Chem 7: 06/01/24 04:08 06/01/24 04:03 Labs: Microbiology - Last 24 Hours (Table) 06/01/24 12:01 Gram Stain - Final Sputum Sputum Culture - Final Pseudomonas aeruginosa 05/30/24 21:51 Blood Culture - Preliminary Blood 06/01/24 14:00 Urine Culture - Final Urine,Voided Assessment and Plan (1) Pseudomonas aeruginosa infection Current Visit: Yes Status: Acute Code(s): A49.8 - OTHER BACTERIAL INFECTIONS OF UNSPECIFIED SITE SNOMED Code(s): 73970165 (2) Allergy to multiple antibiotics Current Visit: Yes Status: Acute Code(s): Z88.1 - ALLERGY STATUS TO OTHER ANTIBIOTIC AGENTS SNOMED Code(s): 858837548 (3) Tracheobronchitis Current Visit: No Status: Acute Code(s): J40 - BRONCHITIS, NOT SPECIFIED ACUTE OR CHRONIC SNOMED Code(s): 33523382 Plan: 1patient presented to hospital with increasing shortness of breath and this patient also bringing up some purulent sputum concerning for purulent tracheobronchitis with COPD exacerbation as initial chest x-ray did not show any evidence of acute infiltrate however the sputum is now growing Pseudomonas aeruginosa and the patient did have multiple antibiotic allergies we will obtain a CT of the chest to make sure no evidence of any pneumonia and however this will need to treat this positive sputum culture. 2patient with multiple antibiotic ALLERGIES that would limit the number of antibiotic safe to use. 3we will check a CT of the chest without any contrast to better define underlying pathology. 4patient started on Azactam 2 g every 8 hours. We will follow on clinical condition and cultures to further adjust medication if needed Thank you for this consultation we will follow the patient along with you Dictation was produced using [employer] dictation software. please excuse any grammatical, word or spelling errors. Time with Patient: Greater than 30
[2024-06-04 08:43] LABS: HCT 37.7 % (37.2-46.3); HGB 11.4 g/dL (12.0-15.0); MCH 26.6 pg (27.0-32.0); MCHC 30.2 g/dL (32.0-37.0); MCV 87.9 FL (80.0-97.0); Mean Platelet Volume 9.3 FL (9.5-12.2); NRBC Per 100 WBC 0 X 10*3/uL (0.00-0.01); Platelet Count 313 X 10*3/uL (140-440); RBC 4.29 X 10*6/uL (4.10-5.20); WBC 10.42 X 10*3/uL (4.50-10.00)
[2024-06-04 08:53] LABS: BUN/Creat Ratio 36.38 Ratio (12.00-20.00); Blood Urea Nitrogen 29.1 mg/dL (9.0-27.0); Calcium 8.7 mg/dL (8.7-10.3); Carbon Dioxide 35.5 mmol/L (21.6-31.8); Chloride 89 mmol/L (96-109); Glucose 345 mg/dL (70-110); Potassium 4.9 mmol/L (3.5-5.5); Sodium 136 mmol/L (135-145)
[2024-06-04 10:59] LABS: Basophils # (M) 0 X 10*3/uL (0.00-0.10); Elliptocytes 2+; Eosinophils # (M) 0 X 10*3/uL (0.04-0.35); Hypochromasia (M) 2+; Lymphocytes # (M) 0.21 X 10*3/uL (0.90-5.00); Metamyelocytes % 1 % (0-0); Monocytes # (M) 0.52 X 10*3/uL (0.20-1.00); Myelocytes % 1 % (0-0); Neutrophils # (M) 9.48 X 10*3/uL (1.80-7.70); Neutrophils % (M) 91 %; Stomatocytes 2+; Target Cells 2+
[2024-06-04 11:37] LABS: Glucose,Whole Blood 304 mg/dL (70-110)
[2024-06-04] MEDS: AZTREONAM 2 GM in SODIUM CHLORIDE 0.9% 100 ML IVPB STA (11:45)
--- NOTE | 2024-06-04 12:58 | P.PN ---
Subjective Progress Note Date: 06/04/24 This is another hospitalization for this 49-year-old female patient, just discharged home on May 28, 2024 following a COPD exacerbation. She presented here again yesterday May 30, 2024 with complaints of increasing shortness of breath cough and congestion. She also has complaints of generalize d pain and is asking for more pain medication. States she has now quit smoking. Chest x-ray reveals no acute cardiopulmonary process. White count 16.7. Hemoglobin 13.3. Platelets 227. Sodium 136. Potassium 5.2. Bicarb 38. BUN 49. Creatinine 0.74. Glucose 191. proBNP 95. She is seen in consultation in the emergency department. Sitting up on the stretcher. Awake and alert in no acute distress. Lung sounds are clear. Diminished. The patient is seen today June 01, 2024 in follow-up on the regular medical floor. She is currently sitting up in bed. Awake and alert in no acute distress. Maintaining O2 saturations in the 90s on 3 L/min per nasal cannula. White count 8.9. Hemoglobin 11.3. Platelets 247. D-dimer 0.17. Sodium 136. Potassium 4.5. Bicarb 37. BUN 23. Creatinine 0.6. Glucose 241. She is continued on Symbicort, albuterol, Solu-Medrol, Singulair, Spiriva. NicoDerm patch in place. Remains on doxycycline. The patient is seen today June 02, 2024 in follow-up on the regular medical floor. Resting in bed. Awake and alert in no acute distress. Continues with some dry cough. Maintaining good O2 saturations in the mid 90s on 3 L/min per nasal cannula. Afebrile. Sputum culture showing gram-negative bacilli. Blood culture reveals no growth. She is continued on doxycycline. Continued on Symbicort, Spiriva, Singulair, albuterol, Solu-Medrol. NicoDerm patch in place. The patient is seen today June 03, 2024 in follow-up on the regular medical floor. She is awake and alert in no acute distress. Continues with a loose congested cough. No fever or chills. Maintaining O2 saturations in the 90s on 3 L/min per nasal cannula. Sputum culture positive for Pseudomonas aeruginosa. She is currently on doxycycline. Remains on bronchodilators and steroids. NicoDerm patch in place. The patient is seen today June 04, 2024 in follow-up on the regular medical floor. She is sitting up in bed. Awake and alert in no acute distress. She is maintaining good O2 saturation in the per minute per nasal cannula. She is afebrile. Sputum culture was positive for Pseudomonas aeruginosa. She is currently on IV doxycycline and received aztreonam. Calcitonin was negative at 0.02. White count 10.4. Hemoglobin 11.4. Platelets 313. Sodium 136. Potassium 4.9. Bicarb 36. BUN 29. Creatinine 0.8. Glucose 345. She is continued on Symbicort, Spiriva, Singulair, albuterol, Solu-Medrol. NicoDerm patch in place. CT scan of the chest revealed mild linear scarring/atelectasis in the right lower lobe and lingular portion of the left upper lobe. Otherwise no acute abnormalities. She has had ongoing complaints of epigastric plan pain. Plan is for EGD today. Objective - Vital Signs Vital signs: Vital Signs Temp 97.8 F 06/04/24 07:25 Pulse 71 06/04/24 07:25 Resp 17 06/04/24 07:25 BP 185/97 06/04/24 07:25 Pulse Ox 95 06/04/24 07:25 FiO2 50 05/31/24 00:39 Intake & Output 06/03/24 06/04/24 06/04/24 18:59 06:59 18:59 Intake Total 402 1860 Balance 402 1860 Weight 113 kg Intake: Oral 402 1860 Other: Voiding Method Toilet # Voids 2 6 # Bowel Movements 2 - Exam GENERAL EXAM: Alert, 49-year-old female, sitting up in bed, on 4 L nasal cannula, comfortable in no apparent distress. HEAD: Normocephalic. EYES: Normal reaction of pupils, equal size. NOSE: Clear with pink turbinates. THROAT: No erythema or exudates. NECK: No masses, no JVD. CHEST: No chest wall deformity. LUNGS: Equal air entry with no crackles, wheeze, rhonchi or dullness. Dimi nished CVS: S1 and S2 normal with no audible murmur, regular rhythm. ABDOMEN: No hepatosplenomegaly, normal bowel sounds, no guarding or rigidity. SPINE: No scoliosis or deformity SKIN: No rashes CENTRAL NERVOUS SYSTEM: No focal deficits, tone is normal in all 4 extremities. EXTREMITIES: There is no peripheral edema. No clubbing, no cyanosis. Peripheral pulses are intact. - Labs CBC & Chem 7: 06/04/24 02:57 06/04/24 02:57 Labs: Abnormal Lab Results - Last 24 Hours (Table) 06/03/24 06/03/24 06/03/24 Range/Units 16:35 17:39 21:18 WBC (4.50-10.00) X 10*3/uL Hgb (12.0-15.0) g/dL MCH (27.0-32.0) pg MCHC (32.0-37.0) g/dL MPV (9.5-12.2) FL Neutrophils # (Manual) (1.80-7.70) X 10*3/uL Lymphocytes # (Manual) (0.90-5.00) X 10*3/uL Eosinophils # (Manual) (0.04-0.35) X 10*3/uL Hypochromasia (manual) Target Cells Stomatocytes Elliptocytes Chloride (96-109) mmol/L Carbon Dioxide (21.6-31.8) mmol/L BUN (9.0-27.0) mg/dL BUN/Creatinine Ratio (12.00-20.00) Ratio Glucose (70-110) mg/dL POC Glucose (mg/dL) 348 H 379 H 313 H (70-110) mg/dL Hemoglobin A1c (<=6.0) % 06/04/24 06/04/24 06/04/24 Range/Units 02:57 02:57 02:57 WBC 10.42 H (4.50-10.00) X 10*3/uL Hgb 11.4 L (12.0-15.0) g/dL MCH 26.6 L (27.0-32.0) pg MCHC 30.2 L (32.0-37.0) g/dL MPV 9.3 L (9.5-12.2) FL Neutrophils # (Manual) 9.48 H (1.80-7.70) X 10*3/uL Lymphocytes # (Manual) 0.21 L (0.90-5.00) X 10*3/uL Eosinophils # (Manual) 0 L (0.04-0.35) X 10*3/uL Hypochromasia (manual) 2+ A Target Cells 2+ A Stomatocytes 2+ A Elliptocytes 2+ A Chloride 89 L (96-109) mmol/L Carbon Dioxide 35.5 H (21.6-31.8) mmol/L BUN 29.1 H (9.0-27.0) mg/dL BUN/Creatinine Ratio 36.38 H (12.00-20.00) Ratio Glucose 345 H (70-110) mg/dL POC Glucose (mg/dL) (70-110) mg/dL Hemoglobin A1c 8.0 H (<=6.0) % 06/04/24 06/04/24 Range/Units 06:31 11:34 WBC (4.50-10.00) X 10*3/uL Hgb (12.0-15.0) g/dL MCH (27.0-32.0) pg MCHC (32.0-37.0) g/dL MPV (9.5-12.2) FL Neutrophils # (Manual) (1.80-7.70) X 10*3/uL Lymphocytes # (Manual) (0.90-5.00) X 10*3/uL Eosinophils # (Manual) (0.04-0.35) X 10*3/uL Hypochromasia (manual) Target Cells Stomatocytes Elliptocytes Chloride (96-109) mmol/L Carbon Dioxide (21.6-31.8) mmol/L BUN (9.0-27.0) mg/dL BUN/Creatinine Ratio (12.00-20.00) Ratio Glucose (70-110) mg/dL POC Glucose (mg/dL) 278 H 304 H (70-110) mg/dL Hemoglobin A1c (<=6.0) % Microbiology - Last 24 Hours (Table) 06/01/24 12:01 Gram Stain - Final Sputum Sputum Culture - Final Pseudomonas aeruginosa Assessment and Plan Assessment: Mild exacerbation of COPD secondary to Pseudomonas aeruginosa, suspect colonized . Procalcitonin 0.02. CT scan of the chest revealed areas of linear atelectasis but no acute pulmonary abnormalities Chronic pain syndrome secondary to fibromyalgia, requested more pain medication Epigastric pain, EGD today Recent discharge May 28, 2024 following acute on chronic hypoxic r espiratory failure secondary COPD exacerbation, has been oxygen dependent at 2 L/min nasal cannula on outpatient basis Chronic tobacco dependence Recent COVID-19 infection, no evidence of pneumonia, D-dimer is low, no previous vaccination, no previous infections Left upper lobe atelectasis, noted on a previous CAT scan of the chest that was done on 09/23/2022. Fibromyalgia Hypertension Hyperlipidemia History of seizure disorder History of CVA Irritable bowel disease Chronic pancreatic insufficiency/fibrosis Migraines Nephrolithiasis Rheumatoid arthritis Plan: The patient was seen and evaluated Imaging, labs, microbiology and medications reviewed Procalcitonin negative Received IV doxycycline, to be discontinued Received aztreonam Stable on 4 L nasal cannula Plan is for EGD today We will continue to follow I have personally seen and examined the patient, performed the documentation and the assessment and plan as written. Number of minutes spent on the visit: 10 Dictation was produced using [employer] dictation software. Please excuse any grammatical, word or spelling errors.
[2024-06-04] MEDS ORDERED: PROPOFOL 10 MG/ML 20 ML VIAL IV ONE (14:10)
[2024-06-04] MEDS ORDERED: LIDOCAINE 2% (PF) 20 MG/ML 5 ML VIAL ONE (14:10)
[2024-06-04] MEDS: SODIUM CHLORIDE 0.9% 1,000 ML IV ONE (14:15)
--- NOTE | 2024-06-04 14:22 | P.OP ---
Date of Procedure: 06/04/24 Preoperative Diagnosis: Epigastric pain Postoperative Diagnosis: Antral gastritis Hiatal hernia Mild esophagitis Procedure(s) Performed: EGD Anesthesia: MAC Surgeon: Patrick Paige Pathology: other (Antrum, esophagus) Condition: stable Disposition: PACU Description of Procedure: The patient was placed on the endoscopy table in the lateral position. She received IV sedation. The gas was placed oropharynx passed in the esophagus and stomach. Scope was then placed through the pylorus. The first and second portion of duodenum appeared normal. Scope was never back to the antrum and this was mildly inflamed. A biopsy was performed. The scope was then retroflexed and the Mainer of the stomach appeared normal. Patient had a hiatal hernia. The GE junction was at 38 cm. The distal esophagus appeared flan. This was biopsied with the proximal esophagus appeared normal. Scope withdrawn for the patient.
--- NOTE | 2024-06-04 15:21 | PN ---
PROGRESS NOTE DATE OF SERVICE: 06/03/2024 SUBJECTIVE: This is a 49-year-old woman, who was admitted with COPD exacerbation, also complaining of significant back pain and renal angle pain also. The CAT scan of the abdomen and pelvis did not show any acute abnormality. The CAT scan of the chest showed some mild linear scarring. No chest pain. No palpitation. PHYSICAL EXAMINATION: VITAL SIGNS: Pulse is 79, blood pressure 168/90, respirations 18. HEENT: Conjunctivae normal: CARDIAC: S1, S2. RESPIRATIONS: Breath sounds diminished at the bases. A few scattered rhonchi. ABDOMEN: Soft. LEGS: No edema NEUROLOGIC: Nonfocal. LABORATORY DATA: Glucose 241. ASSESSMENT: 1. Chronic obstructive pulmonary disease acute exacerbation with acute purulent tracheobronchitis. 2. Severe right loin pain and renal angle tenderness with negative CT. 3. Elevated plasma lactic acid, present on admission, improved. 4. History of congestive heart failure. 5. Hypertension. 6. History of recent COVID-19. 7. History of rheumatoid arthritis with history of pancreatic fibrosis. 8. Multiple complex medical issues. RECOMMENDATIONS AND DISCUSSION: Recommend to continue current management and continue symptomatic treatment. Otherwise, I would recommend to continue symptomatic treatment. Monitor blood sugars closely. The patient is on Azactam. Closely follow with Azactam and doxycycline and steroids. PROGNOSIS: Guarded. Further recommendation to continue the pain management. MMODL / IJN: [id number] /
[2024-06-04 16:41] LABS: Glucose,Whole Blood 316 mg/dL (70-110)
[2024-06-04 20:29] LABS: Glucose,Whole Blood 430 mg/dL (70-110)
[2024-06-04] MEDS: AZTREONAM 2 GM in SODIUM CHLORIDE 0.9% 100 ML IVPB SCH (21:10)
[2024-06-05 06:25] LABS: Glucose,Whole Blood 249 mg/dL (70-110)
--- NOTE | 2024-06-05 06:32 | P.PN ---
Subjective Progress Note Date: 06/05/24 This is a 49-year-old female who was recently admitted with increasing shortness of breath with COPD exacerbation also noted to have significant back pain as well as mid epigastric abdominal pain being closely monitored with pulmonary and general surgery following. Patient is currently n.p.o. scheduled to undergo EGD for further evaluation. Antibiotics have been discontinued by pulmonary and infectious diseases following as well. Patient is continued on IV steroids 60 mg every 6 along with [id number] DuoNebs and will continue. Encouraged increase activity as tolerated. Will await EGD report. Blood sugars have been elevated and will also continue with sliding scale and also add long-acting. Review of systems: Constitutional: No reports of fatigue, fever, or chills Cardiovascular: No reports of chest pain or palpitations Respiratory: reports of continued shortness of breath although feeling slightly improved GI: No reports of nausea, no reports of vomiting, no diarrhea : No reports of dysuria or retention Neurovascular: reports of generalized weakness, reports continued back pain All medications have been reviewed PHYSICAL EXAMINATION: GENERAL: The patient is alert and oriented x4, Well developed, appears older than stated age, obese HEENT: Pupils are round and equally reacting to light. EOMI. no scleral icterus. No conjunctival pallor. Normocephalic, atraumatic. No pharyngeal erythema. No thyromegaly. CARDIOVASCULAR: S1 and S2 muffled PULMONARY: diminished breath sounds bilaterally with some expiratory wheezing and coarse rhonchi noted. ABDOMEN: soft. Nontender on exam. obese. non-distended, normoactive bowel sounds. No palpable organomegaly. MUSCULOSKELETAL: No joint swelling or deformity. EXTREMITIES: No cyanosis, clubbing, or pedal edema. NEUROLOGICAL: Gross neurological examination did not reveal any focal deficits. SKIN: No rashes. Assessment: Chronic obstructive pulmonary disease, acute exacerbation with acute purulent tracheobronchitis Severe right loin pain and renal angle tenderness with negative CT Elevated plasma lactic acid, present on admission, improved History of congestive heart failure, not in exacerbation Hypertension History of recent COVID-19 on last admission History of rheumatoid arthritis with history of pancreatic fibrosis Obesity with a BMI of 38.8 GI prophylaxis DVT prophylaxis Full code Plan: Recommend to continue with current medications and management with pulmonary, infectious disease, general surgery following. Patient is currently n.p.o. today and scheduled to undergo EGD. Will await rep ort and diet will be resumed per surgery Continue [id number] DuoNeb treatments along with IV steroids with pulmonary following. Wean FiO2 as tolerated, patient chronically wears oxygen outpatient Encouraged increased activity as tolerated Blood sugars have been elevated and will continue monitoring with Accu-Cheks before meals and at bedtime and sliding scale. Will add long-acting twice daily Will discuss with other consultations regarding possible discharge planning in the next 24 to 48 hours Due to multiple complex medical issues, overall prognosis is guarded The impression and plan of care has been dictated by Naz Iglesias, nurse practitioner as directed. Dr. Héctor MD I have performed a history and examination and MDM of this patient, discussed the same with the dictator, and agree with the dictator's assessment and plan as written ,documented as a scribe. Based on total visit time, I have performed more than 50% of the visit. Any additional findings or plans will be noted. Objective - Vital Signs Vital signs: Vital Signs Temp 97.7 F 06/05/24 01:07 Pulse 67 06/05/24 01:07 Resp 17 06/05/24 01:07 BP 139/77 06/05/24 01:07 Pulse Ox 92 L 06/05/24 01:07 FiO2 50 05/31/24 00:39 Intake & Output 06/04/24 06/04/24 06/05/24 06:59 18:59 06:59 Intake Total 1860 120 Balance 1860 120 Weight 113 kg 90 kg Intake: Oral 1860 120 Other: # Voids 6 2 5 - Labs CBC & Chem 7: 06/04/24 02:57 06/04/24 02:57 Labs: Abnormal Lab Results - Last 24 Hours (Table) 06/04/24 06/04/24 06/04/24 Range/Units 02:57 02:57 02:57 WBC 10.42 H (4.50-10.00) X 10*3/uL Hgb 11.4 L (12.0-15.0) g/dL MCH 26.6 L (27.0-32.0) pg MCHC 30.2 L (32.0-37.0) g/dL MPV 9.3 L (9.5-12.2) FL Neutrophils # (Manual) 9.48 H (1.80-7.70) X 10*3/uL Lymphocytes # (Manual) 0.21 L (0.90-5.00) X 10*3/uL Eosinophils # (Manual) 0 L (0.04-0.35) X 10*3/uL Hypochromasia (manual) 2+ A Target Cells 2+ A Stomatocytes 2+ A Elliptocytes 2+ A Chloride 89 L (96-109) mmol/L Carbon Dioxide 35.5 H (21.6-31.8) mmol/L BUN 29.1 H (9.0-27.0) mg/dL BUN/Creatinine Ratio 36.38 H (12.00-20.00) Ratio Glucose 345 H (70-110) mg/dL POC Glucose (mg/dL) (70-110) mg/dL Hemoglobin A1c 8.0 H (<=6.0) % 06/04/24 06/04/24 06/04/24 Range/Units 06:31 11:34 16:38 WBC (4.50-10.00) X 10*3/uL Hgb (12.0-15.0) g/dL MCH (27.0-32.0) pg MCHC (32.0-37.0) g/dL MPV (9.5-12.2) FL Neutrophils # (Manual) (1.80-7.70) X 10*3/uL Lymphocytes # (Manual) (0.90-5.00) X 10*3/uL Eosinophils # (Manual) (0.04-0.35) X 10*3/uL Hypochromasia (manual) Target Cells Stomatocytes Elliptocytes Chloride (96-109) mmol/L Carbon Dioxide (21.6-31.8) mmol/L BUN (9.0-27.0) mg/dL BUN/Creatinine Ratio (12.00-20.00) Ratio Glucose (70-110) mg/dL POC Glucose (mg/dL) 278 H 304 H 316 H (70-110) mg/dL Hemoglobin A1c (<=6.0) % 06/04/24 06/05/24 Range/Units 20:27 06:23 WBC (4.50-10.00) X 10*3/uL Hgb (12.0-15.0) g/dL MCH (27.0-32.0) pg MCHC (32.0-37.0) g/dL MPV (9.5-12.2) FL Neutrophils # (Manual) (1.80-7.70) X 10*3/uL Lymphocytes # (Manual) (0.90-5.00) X 10*3/uL Eosinophils # (Manual) (0.04-0.35) X 10*3/uL Hypochromasia (manual) Target Cells Stomatocytes Elliptocytes Chloride (96-109) mmol/L Carbon Dioxide (21.6-31.8) mmol/L BUN (9.0-27.0) mg/dL BUN/Creatinine Ratio (12.00-20.00) Ratio Glucose (70-110) mg/dL POC Glucose (mg/dL) 430 H 249 H (70-110) mg/dL Hemoglobin A1c (<=6.0) % Microbiology - Last 24 Hours (Table) 05/30/24 21:51 Blood Culture - Final Blood
--- NOTE | 2024-06-05 08:40 | P.PN ---
Subjective Progress Note Date: 06/04/24 Principal diagnosis: Reason for follow-up is Pseudomonas tracheobronchitis multiple antibiotic allergies Patient is a 49-year-old female with a past medical history sign ificant for fibromyalgia hypertension COPD CVA TIA seizure disorder and syncope with recurrent admission to the hospital for shortness of breath and this patient has been diagnosed with a COPD exacerbation with a purulent tracheobronchitis sputum culture did grew Pseudomonas aeruginosa patient did h ave multiple antibiotic allergies prompting this consultation. On today's evaluation that is 06/04/2024,the patient remains to be afebrile, patient is on 4 L nasal cannula supplemental oxygen and still complaining of shortness of breath on exertion denies any chest pain continue have a cough no nausea vomiting no abdominal pain no diarrhea patient apparently did have episode of increasing shortness of breath and wheezing which was attributed to possible allergic reaction however the patient tolerated the dose of his atrium prior to that. Patient white count is 10.42 creatinine 0.8 procalcitonin has been low CT of the chest mild anemia scarring atelectasis in the right lower lobe otherwise no acute abnormality Objective - Vital Signs Vital signs: Vital Signs Temp 97.8 F 06/04/24 07:25 Pulse 71 06/04/24 07:25 Resp 17 06/04/24 07:25 BP 185/97 06/04/24 07:25 Pulse Ox 95 06/04/24 07:25 FiO2 50 05/31/24 00:39 Intake & Output 06/03/24 06/04/24 06/04/24 18:59 06:59 18:59 Intake Total 402 1860 Balance 402 1860 Weight 113 kg Intake: Oral 402 1860 Other: Voiding Method Toilet # Voids 2 6 # Bowel Movements 2 - Exam GENERAL DESCRIPTION: Middle-age female up in bed in no distress RESPIRATORY SYSTEM: Unlabored breathing , coarse breath sounds bilaterally HEART: S1 S2 regular rate and rhythm , ABDOMEN: Soft , no tenderness EXTREMITIES: No edema feet - Labs CBC & Chem 7: 06/04/24 02:57 06/04/24 02:57 Labs: Abnormal Lab Results - Last 24 Hours (Table) 06/03/24 06/03/24 06/03/24 Range/Units 16:35 17:39 21:18 WBC (4.50-10.00) X 10*3/uL Hgb (12.0-15.0) g/dL MCH (27.0-32.0) pg MCHC (32.0-37.0) g/dL MPV (9.5-12.2) FL Neutrophils # (Manual) (1.80-7.70) X 10*3/uL Lymphocytes # (Manual) (0.90-5.00) X 10*3/uL Eosinophils # (Manual) (0.04-0.35) X 10*3/uL Hypochromasia (manual) Target Cells Stomatocytes Elliptocytes Chloride (96-109) mmol/L Carbon Dioxide (21.6-31.8) mmol/L BUN (9.0-27.0) mg/dL BUN/Creatinine Ratio (12.00-20.00) Ratio Glucose (70-110) mg/dL POC Glucose (mg/dL) 348 H 379 H 313 H (70-110) mg/dL Hemoglobin A1c (<=6.0) % 06/04/24 06/04/24 06/04/24 Range/Units 02:57 02:57 02:57 WBC 10.42 H (4.50-10.00) X 10*3/uL Hgb 11.4 L (12.0-15.0) g/dL MCH 26.6 L (27.0-32.0) pg MCHC 30.2 L (32.0-37.0) g/dL MPV 9.3 L (9.5-12.2) FL Neutrophils # (Manual) 9.48 H (1.80-7.70) X 10*3/uL Lymphocytes # (Manual) 0.21 L (0.90-5.00) X 10*3/uL Eosinophils # (Manual) 0 L (0.04-0.35) X 10*3/uL Hypochromasia (manual) 2+ A Target Cells 2+ A Stomatocytes 2+ A Elliptocytes 2+ A Chloride 89 L (96-109) mmol/L Carbon Dioxide 35.5 H (21.6-31.8) mmol/L BUN 29.1 H (9.0-27.0) mg/dL BUN/Creatinine Ratio 36.38 H (12.00-20.00) Ratio Glucose 345 H (70-110) mg/dL POC Glucose (mg/dL) (70-110) mg/dL Hemoglobin A1c 8.0 H (<=6.0) % 06/04/24 06/04/24 Range/Units 06:31 11:34 WBC (4.50-10.00) X 10*3/uL Hgb (12.0-15.0) g/dL MCH (27.0-32.0) pg MCHC (32.0-37.0) g/dL MPV (9.5-12.2) FL Neutrophils # (Manual) (1.80-7.70) X 10*3/uL Lymphocytes # (Manual) (0.90-5.00) X 10*3/uL Eosinophils # (Manual) (0.04-0.35) X 10*3/uL Hypochromasia (manual) Target Cells Stomatocytes Elliptocytes Chloride (96-109) mmol/L Carbon Dioxide (21.6-31.8) mmol/L BUN (9.0-27.0) mg/dL BUN/Creatinine Ratio (12.00-20.00) Ratio Glucose (70-110) mg/dL POC Glucose (mg/dL) 278 H 304 H (70-110) mg/dL Hemoglobin A1c (<=6.0) % Microbiology - Last 24 Hours (Table) 06/01/24 12:01 Gram Stain - Final Sputum Sputum Culture - Final Pseudomonas aeruginosa Assessment and Plan (1) Pseudomonas aeruginosa infection Current Visit: Yes Status: Acute Code(s): A49.8 - OTHER BACTERIAL INFECTIONS OF UNSPECIFIED SITE SNOMED Code(s): 25050009 (2) Allergy to multiple antibiotics Current Visit: Yes Status: Acute Code(s): Z88.1 - ALLERGY STATUS TO OTHER ANTIBIOTIC AGENTS SNOMED Code(s): 017228688 (3) Tracheobronchitis Current Visit: No Status: Acute Code(s): J40 - BRONCHITIS, NOT SPECIFIED ACUTE OR CHRONIC SNOMED Code(s): 83186509 Plan: 1patient presented to hospital with increasing shortness of breath and this patient also bringing up some purulent sputum concerning for purulent tracheobronchitis with COPD exacerbation as initial chest x-ray did not show any evidence of acute infiltrate however the sputum is now growing Pseudomonas aeruginosa and the patient did have multiple antibiotic allergies we will obtain a CT of the chest to make sure no evidence of any pneumonia and however this will need to treat this positive sputum culture. 2patient with multiple antibiotic ALLERGIES that would limit the number of antibiotic safe to use. 3patient did have CT of the chest did show some atelectasis but no consolidation and repeat procalcitonin is low more likely dealing with purulent tracheobronchitis than pneumonia 4clinically doubt patient did have allergic reaction to Azactam she will be given a dose and if she tolerates we will continue with Azactam plan is for 3 to 5-day course maximum for the purulent tracheobronchitis Dictation was produced using [employer] dictation software. please excuse any grammatical, word or spelling errors. Time with Patient: Less than 30
[2024-06-05] MEDS: INSULIN DETEMIR (LEVEMIR) 100 UNIT/ML SYR SQ SCH (08:52)
[2024-06-05] MEDS: predniSONE 10 MG TAB PO SCH (09:11)
[2024-06-05 11:35] LABS: Glucose,Whole Blood 389 mg/dL (70-110)
--- NOTE | 2024-06-05 11:45 | P.PN ---
Subjective Progress Note Date: 06/05/24 This is another hospitalization for this 49-year-old female patient, just discharged home on May 28, 2024 following a COPD exacerbation. She presented here again yesterday May 30, 2024 with complaints of increasing shortness of breath cough and congestion. She also has complaints of generalize d pain and is asking for more pain medication. States she has now quit smoking. Chest x-ray reveals no acute cardiopulmonary process. White count 16.7. Hemoglobin 13.3. Platelets 227. Sodium 136. Potassium 5.2. Bicarb 38. BUN 49. Creatinine 0.74. Glucose 191. proBNP 95. She is seen in consultation in the emergency department. Sitting up on the stretcher. Awake and alert in no acute distress. Lung sounds are clear. Diminished. The patient is seen today June 01, 2024 in follow-up on the regular medical floor. She is currently sitting up in bed. Awake and alert in no acute distress. Maintaining O2 saturations in the 90s on 3 L/min per nasal cannula. White count 8.9. Hemoglobin 11.3. Platelets 247. D-dimer 0.17. Sodium 136. Potassium 4.5. Bicarb 37. BUN 23. Creatinine 0.6. Glucose 241. She is continued on Symbicort, albuterol, Solu-Medrol, Singulair, Spiriva. NicoDerm patch in place. Remains on doxycycline. The patient is seen today June 02, 2024 in follow-up on the regular medical floor. Resting in bed. Awake and alert in no acute distress. Continues with some dry cough. Maintaining good O2 saturations in the mid 90s on 3 L/min per nasal cannula. Afebrile. Sputum culture showing gram-negative bacilli. Blood culture reveals no growth. She is continued on doxycycline. Continued on Symbicort, Spiriva, Singulair, albuterol, Solu-Medrol. NicoDerm patch in place. The patient is seen today June 03, 2024 in follow-up on the regular medical floor. She is awake and alert in no acute distress. Continues with a loose congested cough. No fever or chills. Maintaining O2 saturations in the 90s on 3 L/min per nasal cannula. Sputum culture positive for Pseudomonas aeruginosa. She is currently on doxycycline. Remains on bronchodilators and steroids. NicoDerm patch in place. The patient is seen today June 04, 2024 in follow-up on the regular medical floor. She is sitting up in bed. Awake and alert in no acute distress. She is maintaining good O2 saturation in the per minute per nasal cannula. She is afebrile. Sputum culture was positive for Pseudomonas aeruginosa. She is currently on IV doxycycline and received aztreonam. Calcitonin was negative at 0.02. White count 10.4. Hemoglobin 11.4. Platelets 313. Sodium 136. Potassium 4.9. Bicarb 36. BUN 29. Creatinine 0.8. Glucose 345. She is continued on Symbicort, Spiriva, Singulair, albuterol, Solu-Medrol. NicoDerm patch in place. CT scan of the chest revealed mild linear scarring/atelectasis in the right lower lobe and lingular portion of the left upper lobe. Otherwise no acute abnormalities. She has had ongoing complaints of epigastric plan pain. Plan is for EGD today. The patient is seen today June 05, 2024 in follow-up on the regular medical floor. She is awake and alert in no acute distress. Sitting up at the bedside. Denies any worsening shortness of breath, cough or congestion. Maintaining good O2 saturations in the 90s on 4 L/min per nasal cannula. She did undergo EGD yesterday that revealed evidence of gastritis, hiatal hernia and esophagitis. No active bleeding. Sputum culture positive for Pseudomonas aerug inosa. Glucose 249. She is currently on aztreonam. Continued on bronchodilators. Continued on a prednisone taper. NicoDerm patch in place. Objective - Vital Signs Vital signs: Vital Signs Temp 97.9 F 06/05/24 07:30 Pulse 80 06/05/24 07:30 Resp 17 06/05/24 07:30 BP 175/78 06/05/24 07:30 Pulse Ox 92 L 06/05/24 07:30 FiO2 50 05/31/24 00:39 Intake & Output 06/04/24 06/05/24 06/05/24 18:59 06:59 18:59 Intake Total 120 120 Balance 120 120 Weight 90 kg Intake: Oral 120 120 Other: # Voids 2 5 - Exam GENERAL EXAM: Alert, pleasant 49-year-old female, on 4 L nasal cannula, in no apparent distress. HEAD: Normocephalic. EYES: Normal reaction of pupils, equal size. NOSE: Clear with pink turbinates. THROAT: No erythema or exudates. NECK: No masses, no JVD. CHEST: No chest wall deformity. LUNGS: Equal air entry with no crackles, wheeze, rhonchi or dullness. Diminished CVS: S1 and S2 normal with no audible murmur, regular rhythm. ABDOMEN: No hepatosplenomegaly, normal bowel sounds, no guarding or rigidity. SPINE: No scoliosis or deformity SKIN: No rashes CENTRAL NERVOUS SYSTEM: No focal deficits, tone is normal in all 4 extremities. EXTREMITIES: There is no peripheral edema. No clubbing, no cyanosis. Peripheral pulses are intact. - Labs CBC & Chem 7: 06/04/24 02:57 06/04/24 02:57 Labs: Abnormal Lab Results - Last 24 Hours (Table) 06/04/24 06/04/24 06/05/24 Range/Units 16:38 20:27 06:23 POC Glucose (mg/dL) 316 H 430 H 249 H (70-110) mg/dL 06/05/24 Range/Units 11:33 POC Glucose (mg/dL) 389 H (70-110) mg/dL Microbiology - Last 24 Hours (Table) 05/30/24 21:51 Blood Culture - Final Blood Assessment and Plan Assessment: Mild exacerbation of COPD secondary to Pseudomonas aeruginosa, suspect colonized. Procalcitonin 0.02. CT scan of the chest revealed areas of linear atelectasis but no acute pulmonary abnormalities Chronic pain syndrome secondary to fibromyalgia, requested more pain medication Epigastric pain, EGD 06/04/2024 revealed mild gastritis, esophagitis, hiatal hernia Recent discharge May 28, 2024 following acute on chronic hypoxic respiratory failure secondary COPD exacerbation, has been oxygen dependent at 2 L/min nasal cannula on outpatient basis Chronic tobacco dependence Recent COVID-19 infection, no evidence of pneumonia, D-dimer is low, no previous vaccination, no previous infections Left upper lobe atelectasis, noted on a previous CAT scan of the chest that was done on 09/23/2022. Fibromyalgia Hypertension Hyperlipidemia History of seizure disorder History of CVA Irritable bowel disease Chronic pancreatic insufficiency/fibrosis Migraines Nephrolithiasis Rheumatoid arthritis Plan: The patient was seen and evaluated Labs, microbiology and medications reviewed Procalcitonin negative Pseudomonas suspected as colonized Currently on aztreonam per ID service Stable on 4 L nasal cannula Continued on bronchodilators, prednisone taper This patient was seen independently by the pulmonary nurse practitioner addressing pulmonary issues I have personally seen and examined the patient, performed the documentation and the assessment and plan as written. Number of minutes spent on the visit: 25 Dictation was produced using [employer] dictation software. Please excuse any grammatical, word or spelling errors.
--- NOTE | 2024-06-05 14:03 | P.PN ---
Subjective Progress Note Date: 06/05/24 SURGICAL PROGRESS NOTE CHIEF COMPLAINT: Epigastric pain HISTORY OF PRESENT ILLNESS: Patient is status post EGD revealing antral gastritis, hiatal hernia and mild esophagitis. Patient is tolerating diet. She does report some back pain. Hemoglobin 11.4 as of yesterday PHYSICAL EXAM: VITAL SIGNS: Reviewed. GENERAL: Well-developed in no acute distress. HEENT: No sclera icterus. Extraocular movements grossly intact. Moist buccal mucosa. Head is atraumatic, normocephalic. ABDOMEN: Soft. Nondistended. Nontender. NEUROLOGIC: Alert and oriented. Cranial nerves II through XII grossly intact. ASSESSMENT: 1. Epigastric pain status post gastritis, hiatal hernia and mild esophagitis noted on EGD PLAN: -Continue Protonix -Continue regular diet -Patient can be discharged from surgical standpoint when medically cleared Physician Cyber Reverse Engineer note has been reviewed by physician. Signing provider agrees with the documented findings, assessment, and plan of care. Objective - Vital Signs Vital signs: Vital Signs Temp 97.9 F 06/05/24 07:30 Pulse 80 06/05/24 07:30 Resp 17 06/05/24 07:30 BP 175/78 06/05/24 07:30 Pulse Ox 92 L 06/05/24 07:30 FiO2 50 05/31/24 00:39 Intake & Output 06/04/24 06/05/24 06/05/24 18:59 06:59 18:59 Intake Total 120 220 Balance 120 220 Weight 90 kg Intake: Intake, IV Titration 100 Amount Aztreonam 2 gm In Sodium 100 Chloride 0.9% 100 ml @ 33 .3 mls/hr IVPB Q8H [facility] Rx #:[id number] Oral 120 120 Other: # Voids 2 5 - Labs CBC & Chem 7: 06/04/24 02:57 06/04/24 02:57 Labs: Abnormal Lab Results - Last 24 Hours (Table) 06/04/24 06/04/24 06/05/24 Range/Units 16:38 20:27 06:23 POC Glucose (mg/dL) 316 H 430 H 249 H (70-110) mg/dL 06/05/24 Range/Units 11:33 POC Glucose (mg/dL) 389 H (70-110) mg/dL Microbiology - Last 24 Hours (Table) 05/30/24 21:51 Blood Culture - Final Blood
--- NOTE | 2024-06-05 14:31 | P.PN ---
Subjective Progress Note Date: 06/05/24 Principal diagnosis: Reason for follow-up is Pseudomonas tracheobronchitis multiple antibiotic allergies Patient is a 49-year-old female with a past medical history sign ificant for fibromyalgia hypertension COPD CVA TIA seizure disorder and syncope with recurrent admission to the hospital for shortness of breath and this patient has been diagnosed with a COPD exacerbation with a purulent tracheobronchitis sputum culture did grew Pseudomonas aeruginosa patient did h ave multiple antibiotic allergies prompting this consultation. On today's evaluation that is 06/05/2024, the patient continues to be afebrile, the patient is on 4 L current oxygen however breathing slightly comfortably denies any chest pain no worsening cough no nausea vomiting no abdominal pain no diarrhea. No new lab has been obtained today Objective - Vital Signs Vital signs: Vital Signs Temp 97.9 F 06/05/24 07:30 Pulse 80 06/05/24 07:30 Resp 17 06/05/24 07:30 BP 175/78 06/05/24 07:30 Pulse Ox 92 L 06/05/24 07:30 FiO2 50 05/31/24 00:39 Intake & Output 06/04/24 06/05/24 06/05/24 18:59 06:59 18:59 Intake Total 120 220 Balance 120 220 Weight 90 kg Intake: Intake, IV Titration 100 Amount Aztreonam 2 gm In Sodium 100 Chloride 0.9% 100 ml @ 33 .3 mls/hr IVPB Q8H [facility] Rx #:[id number] Oral 120 120 Other: # Voids 2 5 - Exam GENERAL DESCRIPTION: Middle-age female up in bed in no distress RESPIRATORY SYSTEM: Unlabored breathing , coarse breath sounds bilaterally HEART: S1 S2 regular rate and rhythm , ABDOMEN: Soft , no tenderness EXTREMITIES: No edema feet - Labs CBC & Chem 7: 06/04/24 02:57 06/04/24 02:57 Labs: Abnormal Lab Results - Last 24 Hours (Table) 06/04/24 06/04/24 06/05/24 Range/Units 16:38 20:27 06:23 POC Glucose (mg/dL) 316 H 430 H 249 H (70-110) mg/dL 06/05/24 Range/Units 11:33 POC Glucose (mg/dL) 389 H (70-110) mg/dL Microbiology - Last 24 Hours (Table) 05/30/24 21:51 Blood Culture - Final Blood Assessment and Plan (1) Pseudomonas aeruginosa infection Current Visit: Yes Status: Acute Code(s): A49.8 - OTHER BACTERIAL INFECTIONS OF UNSPECIFIED SITE SNOMED Code(s): 08422970 (2) Allergy to multiple antibiotics Current Visit: Yes Status: Acute Code(s): Z88.1 - ALLERGY STATUS TO OTHER ANTIBIOTIC AGENTS SNOMED Code(s): 312874100 (3) Tracheobronchitis Current Visit: No Status: Acute Code(s): J40 - BRONCHITIS, NOT SPECIFIED ACUTE OR CHRONIC SNOMED Code(s): 99946680 Plan: 1patient presented to hospital with increasing shortness of breath and this patient also bringing up some purulent sputum concerning for purulent tracheobronchitis with COPD exacerbation as initial chest x-ray did not show any evidence of acute infiltrate however the sputum is now growing Pseudomonas aeruginosa and the patient did have multiple antibiotic allergies we will obtain a CT of the chest to make sure no evidence of any pneumonia and however this will need to treat this positive sputum culture. 2patient with multiple antibiotic ALLERGIES that would limit the number of antibiotic safe to use. 3patient did have CT of the chest did show some atelectasis but no consolidation and repeat procalcitonin is low more likely dealing with purulent tracheobronchitis than pneumonia 4 patient has tolerated Azactam which will be continued and plan is for 3 to 5- day course of azactam for the purulent tracheobronchitis Dictation was produced using [employer] dictation software. please excuse any grammatical, word or spelling errors. Time with Patient: Less than 30
[2024-06-05 16:16] LABS: Glucose,Whole Blood 273 mg/dL (70-110)
[2024-06-05 17:11] LABS: Amphetamine Screen,Urine Not Detected (NotDetected); Barbiturate Screen,Urine Not Detected (NotDetected); Benzodiazepines Screen,Urine Detected (NotDetected); Cocaine Screen,Urine Not Detected (NotDetected); Methadone Screen, Urine Not Detected (NotDetected); Opiate Screen,Urine Detected (NotDetected); Oxycodone Screen, Urine Detected (NotDetected); Phencyclidine Screen,Urine Not Detected (NotDetected); Tricyclic Antidepressant,Urine Not Detected (NotDetected); Urn Cannabinoid Scrn Not Detected (NotDetected)
[2024-06-05 20:53] LABS: Glucose,Whole Blood 390 mg/dL (70-110)
--- NOTE | 2024-06-06 04:16 | P.PN ---
Subjective Progress Note Date: 06/05/24 This is a 49-year-old female who was recently admitted with increasing shortness of breath with COPD exacerbation also noted to have significant back pain as well as mid epigastric abdominal pain being closely monitored with pulmonary and general surgery following. Patient is currently n.p.o. scheduled to undergo EGD for further evaluation. Antibiotics have been discontinued by pulmonary and infectious diseases following as well. Patient is continued on IV steroids 60 mg every 6 along with [id number] DuoNebs and will continue. Encouraged increase activity as tolerated. Will await EGD report. Blood sugars have been elevated and will also continue with sliding scale and also add long-acting. 06/05/2024 Patient is seen in follow-up with pulmonary along with general surgery and infectious disease following. Procalcitonin was low although concerns for significant COPD exacerbation with tracheobronchitis. Patient is maintained on aztreonam with infectious disease following and will require 3 days of this prior to discharge. Patient is afebrile and reports chest pain with cough along with continued shortness of breath although sitting up in the bed on room air and able to have conversation. Patient has been up and to the bathroom and encouraged the patient to get up and walk more frequently. Per nursing staff, there is some suspicion of patient taking home medications from her purse other than what is prescribed. UDS is ordered and pending. Will discuss further with infectious disease regarding discharge planning. Review of systems: Constitutional: No reports of fatigue, fever, or chills Cardiovascular: No reports of chest pain or palpitations, reports chest pains with the cough Respiratory: reports of continued shortness of breath although feeling slightly improved GI: No reports of nausea, no reports of vomiting, no diarrhea : No reports of dysuria or retention Neurovascular: reports of generalized weakness, reports continued back pain All medications have been reviewed PHYSICAL EXAMINATION: GENERAL: The patient is alert and oriented x4, Well developed, appears older than stated age, obese, currently on room air on exam HEENT: Pupils are round and equally reacting to light. EOMI. no scleral icterus. No conjunctival pallor. Normocephalic, atraumatic. No pharyngeal erythema. No thyromegaly. CARDIOVASCULAR: S1 and S2 muffled PULMONARY: diminished breath sounds bilaterally with some expiratory wheezing and coarse rhonchi noted. ABDOMEN: soft. Nontender on exam. obese. non-distended, normoactive bowel sounds. No palpable organomegaly. MUSCULOSKELETAL: No joint swelling or deformity. EXTREMITIES: No cyanosis, clubbing, or pedal edema. NEUROLOGICAL: Gross neurological examination did not reveal any focal deficits. SKIN: No rashes. Assessment: Chronic obstructive pulmonary disease, acute exacerbation with acute purulent tracheobronchitis Severe right loin pain and renal angle tenderness with negative CT Elevated plasma lactic acid, present on admission, improved History of congestive heart failure, not in exacerbation Hypertension History of recent COVID-19 on last admission History of rheumatoid arthritis with history of pancreatic fibrosis Obesity with a BMI of 38.8 GI prophylaxis DVT prophylaxis Full code Plan: Recommend to continue with current medications and management with pulmonary, infectious disease, general surgery following. Patient is status post EGD with acute gastritis and some inflammation noted. Biopsies were obtained and pending. Patient resumed on diet and tolerating Continue [id number] DuoNeb treatments along with IV steroids with pulmonary following. Wean FiO2 as tolerated, patient chronically wears oxygen outpatient Encouraged increased activity as tolerated Blood sugars have been elevated and will continue monitoring with Accu-Cheks before meals and at bedtime and sliding scale. Will continue long-acting twice daily Will discuss with other consultations regarding possible discharge planning in the next 48 hours. Per infectious disease patient will require 3 days of aztreonam prior to discharge. Due to multiple complex medical issues, overall prognosis is guarded Possible discharge in the next 24 hours. The impression and plan of care has been dictated by Naz Iglesias, nurse practitioner as directed. Dr. Héctor MD I have performed a history and examination and MDM of this patient, discussed the same with the dictator, and agree with the dictator's assessment and plan as written ,documented as a scribe. Based on total visit time, I have performed more than 50% of the visit. Any additional findings or plans will be noted. Objective - Vital Signs Vital signs: Vital Signs Temp 98.1 F 06/06/24 01:07 Pulse 72 06/06/24 01:07 Resp 17 06/06/24 01:07 BP 128/74 06/06/24 01:07 Pulse Ox 94 L 06/06/24 01:07 FiO2 50 05/31/24 00:39 Intake & Output 06/05/24 06/05/24 06/06/24 06:59 18:59 06:59 Intake Total 340 450 Balance 340 450 Weight 90 kg Intake: Intake, IV Titration 100 Amount Aztreonam 2 gm In Sodium 100 Chloride 0.9% 100 ml @ 33 .3 mls/hr IVPB Q8H [facility] Rx #:[id number] Oral 240 450 Other: Voiding Method Toilet # Voids 5 3 - Labs CBC & Chem 7: 06/04/24 02:57 06/04/24 02:57 Labs: Abnormal Lab Results - Last 24 Hours (Table) 06/05/24 06/05/24 06/05/24 Range/Units 06:23 11:33 16:13 POC Glucose (mg/dL) 249 H 389 H 273 H (70-110) mg/dL Urine Opiates Screen (NotDetected) Ur Oxycodone Screen (NotDetected) U Benzodiazepines Scrn (NotDetected) 06/05/24 06/05/24 Range/Units 16:49 20:52 POC Glucose (mg/dL) 390 H (70-110) mg/dL Urine Opiates Screen Detected H (NotDetected) Ur Oxycodone Screen Detected H (NotDetected) U Benzodiazepines Scrn Detected H (NotDetected) Microbiology - Last 24 Hours (Table) 05/30/24 21:51 Blood Culture - Final Blood
[2024-06-06 06:33] LABS: Glucose,Whole Blood 206 mg/dL (70-110)
[2024-06-06 08:43] LABS: Basophils % (A) 0.8 %; Eosinophils # (A) 0.01 X 10*3/uL (0.04-0.35); Eosinophils % (A) 0.1 %; HCT 38.4 % (37.2-46.3); HGB 11.6 g/dL (12.0-15.0); Lymphocytes # (A) 1.76 X 10*3/uL (0.90-5.00); Lymphocytes % (A) 14.4 %; MCHC 30.2 g/dL (32.0-37.0); MCV 89.5 FL (80.0-97.0); Mean Platelet Volume 8.9 FL (9.5-12.2); Monocytes % (A) 7.4 %; NRBC Per 100 WBC 0 X 10*3/uL (0.00-0.01); Neutrophils # (A) 8.89 X 10*3/uL (1.80-7.70); Neutrophils % (A) 72.7 %; Platelet Count 289 X 10*3/uL (140-440); RBC 4.29 X 10*6/uL (4.10-5.20); RDW 14.5 % (11.5-14.5); WBC 12.22 X 10*3/uL (4.50-10.00)
[2024-06-06 08:49] LABS: ALT 30 U/L (8-44); AST 14 U/L (13-35); Albumin/Globulin Ratio 2.11 Ratio (1.60-3.17); Alkaline Phosphatase 70 U/L (41-126); BUN/Creat Ratio 39.57 Ratio (12.00-20.00); Blood Urea Nitrogen 27.7 mg/dL (9.0-27.0); Calcium 8.7 mg/dL (8.7-10.3); Chloride 92 mmol/L (96-109); Globulin 1.9 g/dL (1.6-3.3); Glucose 223 mg/dL (70-110); Potassium 4.6 mmol/L (3.5-5.5); Sodium 140 mmol/L (135-145); Total Bilirubin 0.2 mg/dL (0.3-1.2); Total Protein 5.9 g/dL (6.2-8.2)
[2024-06-06 11:34] LABS: Glucose,Whole Blood 187 mg/dL (70-110)
--- NOTE | 2024-06-06 12:03 | P.PN ---
Subjective Progress Note Date: 06/06/24 SURGICAL PROGRESS NOTE CHIEF COMPLAINT: Epigastric pain HISTORY OF PRESENT ILLNESS: Patient complaining of diffuse abdominal pain this morning. Also reporting small amounts of blood in her stools yesterday and today. Vital stable. On 3 L which she she is on at home. WBC 12.2 Hgb stable at 11.6 PHYSICAL EXAM: VITAL SIGNS: Reviewed. GENERAL: Well-developed in no acute distress. HEENT: No sclera icterus. Extraocular movements grossly intact. Moist buccal mucosa. Head is atraumatic, normocephalic. ABDOMEN: Soft. Nondistended. Diffuse tenderness NEUROLOGIC: Alert and oriented. Cranial nerves II through XII grossly intact. ASSESSMENT: 1. Epigastric pain status post gastritis, hiatal hernia and mild esophagitis noted on EGD 2. Lower GI bleed with bright red blood per rectum PLAN: -Patient is scheduled for colonoscopy tomorrow with Dr. Paige -Downgrade diet to clear liquids -Start GoLytely bowel prep and will give a dose of lactulose -N.p.o. after midnight -Continue Protonix Physician Supervisor [employer] note has been reviewed by physician. Signing provider agrees with the documented findings, assessment, and plan of care. Objective - Vital Signs Vital signs: Vital Signs Temp 98.3 F 06/06/24 07:20 Pulse 72 06/06/24 07:20 Resp 18 06/06/24 07:20 BP 126/76 06/06/24 07:20 Pulse Ox 93 L 06/06/24 07:20 FiO2 50 05/31/24 00:39 Intake & Output 06/05/24 06/06/24 06/06/24 18:59 06:59 18:59 Intake Total 340 2950 120 Balance 340 2950 120 Weight 91.3 kg Intake: Intake, IV Titration 100 Amount Aztreonam 2 gm In Sodium 100 Chloride 0.9% 100 ml @ 33 .3 mls/hr IVPB Q8H [facility] Rx #:[id number] Oral 240 2950 120 Other: Voiding Method Toilet # Voids 6 - Labs CBC & Chem 7: 06/06/24 05:47 06/06/24 05:47 Labs: Abnormal Lab Results - Last 24 Hours (Table) 06/05/24 06/05/24 06/05/24 Range/Units 16:13 16:49 20:52 WBC (4.50-10.00) X 10*3/uL Hgb (12.0-15.0) g/dL MCHC (32.0-37.0) g/dL MPV (9.5-12.2) FL Immature Gran # (0.00-0.04) X 10*3/uL Neutrophils # (1.80-7.70) X 10*3/uL Eosinophils # (0.04-0.35) X 10*3/uL Chloride (96-109) mmol/L Carbon Dioxide (21.6-31.8) mmol/L BUN (9.0-27.0) mg/dL BUN/Creatinine Ratio (12.00-20.00) Ratio Glucose (70-110) mg/dL POC Glucose (mg/dL) 273 H 390 H (70-110) mg/dL Total Bilirubin (0.3-1.2) mg/dL Total Protein (6.2-8.2) g/dL Urine Opiates Screen Detected H (NotDetected) Ur Oxycodone Screen Detected H (NotDetected) U Benzodiazepines Scrn Detected H (NotDetected) 06/06/24 06/06/24 06/06/24 Range/Units 05:47 05:47 06:31 WBC 12.22 H (4.50-10.00) X 10*3/uL Hgb 11.6 L (12.0-15.0) g/dL MCHC 30.2 L (32.0-37.0) g/dL MPV 8.9 L (9.5-12.2) FL Immature Gran # 0.56 H (0.00-0.04) X 10*3/uL Neutrophils # 8.89 H (1.80-7.70) X 10*3/uL Eosinophils # 0.01 L (0.04-0.35) X 10*3/uL Chloride 92 L (96-109) mmol/L Carbon Dioxide 37.0 H (21.6-31.8) mmol/L BUN 27.7 H (9.0-27.0) mg/dL BUN/Creatinine Ratio 39.57 H (12.00-20.00) Ratio Glucose 223 H (70-110) mg/dL POC Glucose (mg/dL) 206 H (70-110) mg/dL Total Bilirubin 0.2 L (0.3-1.2) mg/dL Total Protein 5.9 L (6.2-8.2) g/dL Urine Opiates Screen (NotDetected) Ur Oxycodone Screen (NotDetected) U Benzodiazepines Scrn (NotDetected) 06/06/24 Range/Units 11:32 WBC (4.50-10.00) X 10*3/uL Hgb (12.0-15.0) g/dL MCHC (32.0-37.0) g/dL MPV (9.5-12.2) FL Immature Gran # (0.00-0.04) X 10*3/uL Neutrophils # (1.80-7.70) X 10*3/uL Eosinophils # (0.04-0.35) X 10*3/uL Chloride (96-109) mmol/L Carbon Dioxide (21.6-31.8) mmol/L BUN (9.0-27.0) mg/dL BUN/Creatinine Ratio (12.00-20.00) Ratio Glucose (70-110) mg/dL POC Glucose (mg/dL) 187 H (70-110) mg/dL Total Bilirubin (0.3-1.2) mg/dL Total Protein (6.2-8.2) g/dL Urine Opiates Screen (NotDetected) Ur Oxycodone Screen (NotDetected) U Benzodiazepines Scrn (NotDetected)
--- NOTE | 2024-06-06 12:08 | P.PN ---
Subjective Progress Note Date: 06/06/24 Principal diagnosis: Reason for follow-up is Pseudomonas tracheobronchitis multiple antibiotic allergies Patient is a 49-year-old female with a past medical history sign ificant for fibromyalgia hypertension COPD CVA TIA seizure disorder and syncope with recurrent admission to the hospital for shortness of breath and this patient has been diagnosed with a COPD exacerbation with a purulent tracheobronchitis sputum culture did grew Pseudomonas aeruginosa patient did h ave multiple antibiotic allergies prompting this consultation. On today's evaluation that is 06/06/2024, patient has been afebrile, patient is breathing slightly comfortably and is currently on 3 L nasal oxygen, patient denies having any worsening cough no chest pain, patient denies nausea vomiting or diarrhea and no abdominal pain, patient be complaining mostly of swelling to bilateral lower extremity. Patient white count is 12.22, creatinine 0.7 Objective - Vital Signs Vital signs: Vital Signs Temp 98.3 F 06/06/24 07:20 Pulse 72 06/06/24 07:20 Resp 18 06/06/24 07:20 BP 126/76 06/06/24 07:20 Pulse Ox 93 L 06/06/24 07:20 FiO2 50 05/31/24 00:39 Intake & Output 06/05/24 06/06/24 06/06/24 18:59 06:59 18:59 Intake Total 340 2950 120 Balance 340 2950 120 Weight 91.3 kg Intake: Intake, IV Titration 100 Amount Aztreonam 2 gm In Sodium 100 Chloride 0.9% 100 ml @ 33 .3 mls/hr IVPB Q8H [facility] Rx #:[id number] Oral 240 2950 120 Other: Voiding Method Toilet # Voids 6 - Exam GENERAL DESCRIPTION: Middle-age female up in bed in no distress RESPIRATORY SYSTEM: Unlabored breathing , decreased intensity breath sound no wheeze HEART: S1 S2 regular rate and rhythm , ABDOMEN: Soft , no tenderness EXTREMITIES: 2+ edema feet - Labs CBC & Chem 7: 06/06/24 05:47 06/06/24 05:47 Labs: Abnormal Lab Results - Last 24 Hours (Table) 06/05/24 06/05/24 06/05/24 Range/Units 16:13 16:49 20:52 WBC (4.50-10.00) X 10*3/uL Hgb (12.0-15.0) g/dL MCHC (32.0-37.0) g/dL MPV (9.5-12.2) FL Immature Gran # (0.00-0.04) X 10*3/uL Neutrophils # (1.80-7.70) X 10*3/uL Eosinophils # (0.04-0.35) X 10*3/uL Chloride (96-109) mmol/L Carbon Dioxide (21.6-31.8) mmol/L BUN (9.0-27.0) mg/dL BUN/Creatinine Ratio (12.00-20.00) Ratio Glucose (70-110) mg/dL POC Glucose (mg/dL) 273 H 390 H (70-110) mg/dL Total Bilirubin (0.3-1.2) mg/dL Total Protein (6.2-8.2) g/dL Urine Opiates Screen Detected H (NotDetected) Ur Oxycodone Screen Detected H (NotDetected) U Benzodiazepines Scrn Detected H (NotDetected) 06/06/24 06/06/24 06/06/24 Range/Units 05:47 05:47 06:31 WBC 12.22 H (4.50-10.00) X 10*3/uL Hgb 11.6 L (12.0-15.0) g/dL MCHC 30.2 L (32.0-37.0) g/dL MPV 8.9 L (9.5-12.2) FL Immature Gran # 0.56 H (0.00-0.04) X 10*3/uL Neutrophils # 8.89 H (1.80-7.70) X 10*3/uL Eosinophils # 0.01 L (0.04-0.35) X 10*3/uL Chloride 92 L (96-109) mmol/L Carbon Dioxide 37.0 H (21.6-31.8) mmol/L BUN 27.7 H (9.0-27.0) mg/dL BUN/Creatinine Ratio 39.57 H (12.00-20.00) Ratio Glucose 223 H (70-110) mg/dL POC Glucose (mg/dL) 206 H (70-110) mg/dL Total Bilirubin 0.2 L (0.3-1.2) mg/dL Total Protein 5.9 L (6.2-8.2) g/dL Urine Opiates Screen (NotDetected) Ur Oxycodone Screen (NotDetected) U Benzodiazepines Scrn (NotDetected) 06/06/24 Range/Units 11:32 WBC (4.50-10.00) X 10*3/uL Hgb (12.0-15.0) g/dL MCHC (32.0-37.0) g/dL MPV (9.5-12.2) FL Immature Gran # (0.00-0.04) X 10*3/uL Neutrophils # (1.80-7.70) X 10*3/uL Eosinophils # (0.04-0.35) X 10*3/uL Chloride (96-109) mmol/L Carbon Dioxide (21.6-31.8) mmol/L BUN (9.0-27.0) mg/dL BUN/Creatinine Ratio (12.00-20.00) Ratio Glucose (70-110) mg/dL POC Glucose (mg/dL) 187 H (70-110) mg/dL Total Bilirubin (0.3-1.2) mg/dL Total Protein (6.2-8.2) g/dL Urine Opiates Screen (NotDetected) Ur Oxycodone Screen (NotDetected) U Benzodiazepines Scrn (NotDetected) Assessment and Plan (1) Pseudomonas aeruginosa infection Current Visit: Yes Status: Acute Code(s): A49.8 - OTHER BACTERIAL INFECTIONS OF UNSPECIFIED SITE SNOMED Code(s): 36002403 (2) Allergy to multiple antibiotics Current Visit: Yes Status: Acute Code(s): Z88.1 - ALLERGY STATUS TO OTHER ANTIBIOTIC AGENTS SNOMED Code(s): 892400497 (3) Tracheobronchitis Current Visit: No Status: Acute Code(s): J40 - BRONCHITIS, NOT SPECIFIED ACUTE OR CHRONIC SNOMED Code(s): 80919034 Plan: 1patient presented to hospital with increasing shortness of breath and this patient also bringing up some purulent sputum concerning for purulent tracheobronchitis with COPD exacerbation as initial chest x-ray did not show any evidence of acute infiltrate however the sputum is now growing Pseudomonas aeruginosa and the patient did have multiple antibiotic allergies we will obtain a CT of the chest to make sure no evidence of any pneumonia and however this will need to treat this positive sputum culture. 2patient with multiple antibiotic ALLERGIES that would limit the number of antibiotic safe to use. 3patient did have CT of the chest did show some atelectasis but no consolidation and repeat procalcitonin is low more likely dealing with purulent tracheobronchitis than pneumonia 4 patient has tolerated Azactam which will be continued short course while inpatient for the purulent tracheobronchitis, no need for IV antibiotics on discharge Dictation was produced using [employer] dictation software. please excuse any grammatical, word or spelling errors. Time with Patient: Less than 30
[2024-06-06] MEDS: LACTULOSE 20 GM/30 ML CUP PO ONE (12:26)
[2024-06-06] MEDS: PEG 3350 (236 GM/BTL) + LYTES 4,000 ML BOTTLE PO ONE (12:27)
--- NOTE | 2024-06-06 14:11 | P.PN ---
Subjective Progress Note Date: 06/06/24 This is another hospitalization for this 49-year-old female patient, just discharged home on May 28, 2024 following a COPD exacerbation. She presented here again yesterday May 30, 2024 with complaints of increasing shortness of breath cough and congestion. She also has complaints of generalize d pain and is asking for more pain medication. States she has now quit smoking. Chest x-ray reveals no acute cardiopulmonary process. White count 16.7. Hemoglobin 13.3. Platelets 227. Sodium 136. Potassium 5.2. Bicarb 38. BUN 49. Creatinine 0.74. Glucose 191. proBNP 95. She is seen in consultation in the emergency department. Sitting up on the stretcher. Awake and alert in no acute distress. Lung sounds are clear. Diminished. The patient is seen today June 01, 2024 in follow-up on the regular medical floor. She is currently sitting up in bed. Awake and alert in no acute distress. Maintaining O2 saturations in the 90s on 3 L/min per nasal cannula. White count 8.9. Hemoglobin 11.3. Platelets 247. D-dimer 0.17. Sodium 136. Potassium 4.5. Bicarb 37. BUN 23. Creatinine 0.6. Glucose 241. She is continued on Symbicort, albuterol, Solu-Medrol, Singulair, Spiriva. NicoDerm patch in place. Remains on doxycycline. The patient is seen today June 02, 2024 in follow-up on the regular medical floor. Resting in bed. Awake and alert in no acute distress. Continues with some dry cough. Maintaining good O2 saturations in the mid 90s on 3 L/min per nasal cannula. Afebrile. Sputum culture showing gram-negative bacilli. Blood culture reveals no growth. She is continued on doxycycline. Continued on Symbicort, Spiriva, Singulair, albuterol, Solu-Medrol. NicoDerm patch in place. The patient is seen today June 03, 2024 in follow-up on the regular medical floor. She is awake and alert in no acute distress. Continues with a loose congested cough. No fever or chills. Maintaining O2 saturations in the 90s on 3 L/min per nasal cannula. Sputum culture positive for Pseudomonas aeruginosa. She is currently on doxycycline. Remains on bronchodilators and steroids. NicoDerm patch in place. The patient is seen today June 04, 2024 in follow-up on the regular medical floor. She is sitting up in bed. Awake and alert in no acute distress. She is maintaining good O2 saturation in the per minute per nasal cannula. She is afebrile. Sputum culture was positive for Pseudomonas aeruginosa. She is currently on IV doxycycline and received aztreonam. Calcitonin was negative at 0.02. White count 10.4. Hemoglobin 11.4. Platelets 313. Sodium 136. Potassium 4.9. Bicarb 36. BUN 29. Creatinine 0.8. Glucose 345. She is continued on Symbicort, Spiriva, Singulair, albuterol, Solu-Medrol. NicoDerm patch in place. CT scan of the chest revealed mild linear scarring/atelectasis in the right lower lobe and lingular portion of the left upper lobe. Otherwise no acute abnormalities. She has had ongoing complaints of epigastric plan pain. Plan is for EGD today. The patient is seen today June 05, 2024 in follow-up on the regular medical floor. She is awake and alert in no acute distress. Sitting up at the bedside. Denies any worsening shortness of breath, cough or congestion. Maintaining good O2 saturations in the 90s on 4 L/min per nasal cannula. She did undergo EGD yesterday that revealed evidence of gastritis, hiatal hernia and esophagitis. No active bleeding. Sputum culture positive for Pseudomonas aerug inosa. Glucose 249. She is currently on aztreonam. Continued on bronchodilators. Continued on a prednisone taper. NicoDerm patch in place. The patient is seen today June 06, 2024 in follow-up on the regular medical floor. She is sitting up in bed. Awake and alert in no acute distress. No worsening shortness of breath, cough or congestion. She is maintaining good O2 saturations in the 90s on 4 L/min per nasal cannula. White count 12.2. Hemoglobin 11.6. Platelets 289. Sodium 140. Potassium 4.6. Bicarb 37. BUN 28. Creatinine 0.7. Glucose 223. She is continued on aztreonam. Continued on bronchodilators and steroids. NicoDerm patch in place. Objective - Vital Signs Vital signs: Vital Signs Temp 98.3 F 06/06/24 07:20 Pulse 72 06/06/24 07:20 Resp 18 06/06/24 07:20 BP 126/76 06/06/24 07:20 Pulse Ox 93 L 06/06/24 07:20 FiO2 50 05/31/24 00:39 Intake & Output 06/05/24 06/06/24 06/06/24 18:59 06:59 18:59 Intake Total 340 2950 220 Balance 340 2950 220 Weight 91.3 kg Intake: Intake, IV Titration 100 100 Amount Aztreonam 2 gm In Sodium 100 100 Chloride 0.9% 100 ml @ 33 .3 mls/hr IVPB Q8H [facility] Rx #:[id number] Oral 240 2950 120 Other: Voiding Method Toilet # Voids 6 - Exam GENERAL EXAM: Alert, 49-year-old female, sitting up in bed, comfortable, on 4 L nasal cannula, in no apparent distress. HEAD: Normocephalic. EYES: Normal reaction of pupils, equal size. NOSE: Clear with pink turbinates. THROAT: No erythema or exudates. NECK: No masses, no JVD. CHEST: No chest wall deformity. LUNGS: Equal air entry with no crackles, wheeze, rhonchi or dullness. Diminis hed CVS: S1 and S2 normal with no audible murmur, regular rhythm. ABDOMEN: No hepatosplenomegaly, normal bowel sounds, no guarding or rigidity. SPINE: No scoliosis or deformity SKIN: No rashes CENTRAL NERVOUS SYSTEM: No focal deficits, tone is normal in all 4 extremities. EXTREMITIES: There is no peripheral edema. No clubbing, no cyanosis. Peripheral pulses are intact. - Labs CBC & Chem 7: 06/06/24 05:47 06/06/24 05:47 Labs: Abnormal Lab Results - Last 24 Hours (Table) 06/05/24 06/05/24 06/05/24 Range/Units 16:13 16:49 20:52 WBC (4.50-10.00) X 10*3/uL Hgb (12.0-15.0) g/dL MCHC (32.0-37.0) g/dL MPV (9.5-12.2) FL Immature Gran # (0.00-0.04) X 10*3/uL Neutrophils # (1.80-7.70) X 10*3/uL Eosinophils # (0.04-0.35) X 10*3/uL Chloride (96-109) mmol/L Carbon Dioxide (21.6-31.8) mmol/L BUN (9.0-27.0) mg/dL BUN/Creatinine Ratio (12.00-20.00) Ratio Glucose (70-110) mg/dL POC Glucose (mg/dL) 273 H 390 H (70-110) mg/dL Total Bilirubin (0.3-1.2) mg/dL Total Protein (6.2-8.2) g/dL Urine Opiates Screen Detected H (NotDetected) Ur Oxycodone Screen Detected H (NotDetected) U Benzodiazepines Scrn Detected H (NotDetected) 06/06/24 06/06/24 06/06/24 Range/Units 05:47 05:47 06:31 WBC 12.22 H (4.50-10.00) X 10*3/uL Hgb 11.6 L (12.0-15.0) g/dL MCHC 30.2 L (32.0-37.0) g/dL MPV 8.9 L (9.5-12.2) FL Immature Gran # 0.56 H (0.00-0.04) X 10*3/uL Neutrophils # 8.89 H (1.80-7.70) X 10*3/uL Eosinophils # 0.01 L (0.04-0.35) X 10*3/uL Chloride 92 L (96-109) mmol/L Carbon Dioxide 37.0 H (21.6-31.8) mmol/L BUN 27.7 H (9.0-27.0) mg/dL BUN/Creatinine Ratio 39.57 H (12.00-20.00) Ratio Glucose 223 H (70-110) mg/dL POC Glucose (mg/dL) 206 H (70-110) mg/dL Total Bilirubin 0.2 L (0.3-1.2) mg/dL Total Protein 5.9 L (6.2-8.2) g/dL Urine Opiates Screen (NotDetected) Ur Oxycodone Screen (NotDetected) U Benzodiazepines Scrn (NotDetected) 06/06/24 Range/Units 11:32 WBC (4.50-10.00) X 10*3/uL Hgb (12.0-15.0) g/dL MCHC (32.0-37.0) g/dL MPV (9.5-12.2) FL Immature Gran # (0.00-0.04) X 10*3/uL Neutrophils # (1.80-7.70) X 10*3/uL Eosinophils # (0.04-0.35) X 10*3/uL Chloride (96-109) mmol/L Carbon Dioxide (21.6-31.8) mmol/L BUN (9.0-27.0) mg/dL BUN/Creatinine Ratio (12.00-20.00) Ratio Glucose (70-110) mg/dL POC Glucose (mg/dL) 187 H (70-110) mg/dL Total Bilirubin (0.3-1.2) mg/dL Total Protein (6.2-8.2) g/dL Urine Opiates Screen (NotDetected) Ur Oxycodone Screen (NotDetected) U Benzodiazepines Scrn (NotDetected) Assessment and Plan Assessment: Mild exacerbation of COPD secondary to Pseudomonas aeruginosa, suspect co lonized. Procalcitonin 0.02. CT scan of the chest revealed areas of linear atelectasis but no acute pulmonary abnormalities Chronic pain syndrome secondary to fibromyalgia, requested more pain medication Epigastric pain, EGD 06/04/2024 revealed mild gastritis, esophagitis, hiatal hernia Recent discharge May 28, 2024 following acute on chronic hypoxic respiratory failure secondary COPD exacerbation, has been oxygen dependent at 2 L/min nasal cannula on outpatient basis Chronic tobacco dependence Recent COVID-19 infection, no evidence of pneumonia, D-dimer is low, no previous vaccination, no previous infections Left upper lobe atelectasis, noted on a previous CAT scan of the chest that was done on 09/23/2022. Fibromyalgia Hypertension Hyperlipidemia History of seizure disorder History of CVA Irritable bowel disease Chronic pancreatic insufficiency/fibrosis Migraines Nephrolithiasis Rheumatoid arthritis Plan: The patient was seen and evaluated Labs and medications reviewed Currently on aztreonam per ID service Stable on 4 L nasal cannula Continued on bronchodilators, prednisone taper I have personally seen and examined the patient, performed the documentation and the assessment and plan as written. Number of minutes spent on the visit: 10 Dictation was produced using [employer] software. Please excuse any grammatical, word or spelling errors.
[2024-06-06 16:11] LABS: Glucose,Whole Blood 237 mg/dL (70-110)
[2024-06-06 20:59] LABS: Glucose,Whole Blood 171 mg/dL (70-110)
[2024-06-07 06:20] LABS: Basophils % (A) 0 %; Eosinophils # (A) 0.1 k/uL (0-0.7); Eosinophils % (A) 1 %; HCT 39.1 % (34.0-46.0); HGB 12.1 gm/dL (11.4-16.0); Hypochromasia Moderate; Lymphocytes # (A) 2.4 k/uL (1.0-4.8); Lymphocytes % (A) 25 %; MCH 27.5 pg (25.0-35.0); MCHC 30.9 g/dL (31.0-37.0); MCV 89.2 fL (80.0-100.0); Mean Platelet Volume 6.9; Monocytes # (A) 0.4 k/uL (0-1.0); Monocytes % (A) 4 %; Neutrophils # (A) 6.8 k/uL (1.3-7.7); Neutrophils % (A) 69 %; Platelet Count 249 k/uL (150-450); RBC 4.38 m/uL (3.80-5.40); RDW 14.4 % (11.5-15.5); WBC 9.9 k/uL (3.8-10.6)
[2024-06-07 06:31] LABS: African American GFR (CKD) >90 (>60 ml/min/1.73 sqM); Anion Gap 3 mmol/L; Blood Urea Nitrogen 23 mg/dL (7-17); Chloride 94 mmol/L (98-107); Glucose 82 mg/dL (74-99); Non-African American GFR(CKD) >90 (>60 ml/min/1.73 sqM); Potassium 4.5 mmol/L (3.5-5.1); Sodium 137 mmol/L (137-145)
[2024-06-07 06:33] LABS: Glucose,Whole Blood 86 mg/dL (70-110)
[2024-06-07 06:48] LABS: Carbon Dioxide 40 mmol/L (22-30)
--- NOTE | 2024-06-07 07:33 | PN ---
PROGRESS NOTE DATE OF SERVICE: 06/06/2024 SUBJECTIVE: The is a 49-year-old woman, who was admitted with COPD acute exacerbation, other multiple medical issues. Cleared for colonoscopy tomorrow. No chest pain. No palpitation. OBJECTIVE: VITAL SIGNS: Pulse is 82, blood pressure 110/76, respirations 18. CHEST: A few scattered rhonchi and crackles. ABDOMEN: Soft. NERVOUS SYSTEM: Nonfocal. LABORATORY DATA: Reviewed. ASSESSMENT: 1. Chronic obstructive pulmonary disease acute exacerbation with acute purulent tracheobronchitis with Pseudomonas aeruginosa. 2. Severe right loin pain and right renal angle tenderness with negative CT. 3. Elevated plasma lactic acid, present on admission. 4. History of congestive heart failure. 5. Hypertension. 6. History of recent COVID-19 infection. 7. History of rheumatoid arthritis. 8. History of pancreatic fibrosis. 9. Lower gastrointestinal bleeding with bright red blood per rectum. RECOMMENDATIONS AND DISCUSSION: Recommend to continue current medications. Continue with bronchodilators, short course of IV antibiotics. Surgery is planning colonoscopy. Recommend repeat labs and continue to monitor. Guarded prognosis because of multiple complex medical issues. Further recommendations to follow. MMODL / IJN: [id number] /
[2024-06-07] MEDS ORDERED: PROPOFOL 10 MG/ML 20 ML VIAL IV ONE (08:40)
[2024-06-07] MEDS: IV FLUID CONTINUATION 900 ML IV ONE (08:54)
--- NOTE | 2024-06-07 08:58 | P.OP ---
Date of Procedure: 06/07/24 Preoperative Diagnosis: Dental pain Rectal bleeding Postoperative Diagnosis: Diverticulosis Internal/external hemorrhoids Procedure(s) Performed: Colonoscopy Anesthesia: MAC Surgeon: Patrick Paige Pathology: none sent Condition: stable Disposition: PACU Description of Procedure: Patient is placed on the endoscopy table in the lateral position. She received IV sedation. Digital rectal exam was performed. This revealed internal/external hemorrhoids. The flexible colonoscope was then placed patient anus passed throughout the entire colon. The ileocecal valve was visualized. The cecum, ascending and transverse colon appeared normal. In the descending sigmoid colon a few scattered diverticuli. Scope was back the rectum this appeared normal. Withdrawn through the anus and internal extra hemorrhoids noted. There is no evidence of any active GI bleed. Presumed patient may have had bleeding from hemorrhoids.
[2024-06-07 11:30] LABS: Glucose,Whole Blood 171 mg/dL (70-110)
[2024-06-07 13:06] VITALS: BMI 41.3
--- NOTE | 2024-06-07 13:35 | P.PN ---
Subjective Progress Note Date: 06/07/24 Principal diagnosis: Reason for follow-up is Pseudomonas tracheobronchitis multiple antibiotic allergies Patient is a 49-year-old female with a past medical history sign ificant for fibromyalgia hypertension COPD CVA TIA seizure disorder and syncope with recurrent admission to the hospital for shortness of breath and this patient has been diagnosed with a COPD exacerbation with a purulent tracheobronchitis sputum culture did grew Pseudomonas aeruginosa patient did h ave multiple antibiotic allergies prompting this consultation. On today's evaluation that is 06/07/2024, Patient is afebrile this morning patient denies having any chest pain she is breathing slightly comfortably currently on 4 L nasal cannula oxygen denies any worsening cough or sputum production no abdominal pain or diarrhea. Patient white count is 9.8, creatinine 0.53 Objective - Vital Signs Vital signs: Vital Signs Temp 98.1 F 06/07/24 08:04 Pulse 69 06/07/24 08:04 Resp 13 06/07/24 08:04 BP 149/79 06/07/24 08:04 Pulse Ox 95 06/07/24 08:04 FiO2 50 05/31/24 00:39 Intake & Output 06/06/24 06/07/24 06/07/24 18:59 06:59 18:59 Intake Total 220 100 Balance 220 100 Weight 96 kg Intake: IV 100 Intake, IV Titration 100 Amount Aztreonam 2 gm In Sodium 100 Chloride 0.9% 100 ml @ 33 .3 mls/hr IVPB Q8H REPLACED BY [facility] Rx #:[id number] Oral 120 Other: Voiding Method Bedside Commode # Voids 5 # Bowel Movements 5 - Exam GENERAL DESCRIPTION: Middle-age female up in bed in no distress RESPIRATORY SYSTEM: Unlabored breathing , decreased intensity breath sound no wheeze HEART: S1 S2 regular rate and rhythm , ABDOMEN: Soft , no tenderness EXTREMITIES: 2+ edema feet - Labs CBC & Chem 7: 06/07/24 05:29 06/07/24 05:29 Labs: Abnormal Lab Results - Last 24 Hours (Table) 06/06/24 06/06/24 06/07/24 Range/Units 16:10 20:57 05:29 MCHC 30.9 L (31.0-37.0) g/dL Chloride (98-107) mmol/L Carbon Dioxide (22-30) mmol/L BUN (7-17) mg/dL POC Glucose (mg/dL) 237 H 171 H (70-110) mg/dL Calcium (8.4-10.2) mg/dL 06/07/24 06/07/24 Range/Units 05:29 11:29 MCHC (31.0-37.0) g/dL Chloride 94 L (98-107) mmol/L Carbon Dioxide 40 H (22-30) mmol/L BUN 23 H (7-17) mg/dL POC Glucose (mg/dL) 171 H (70-110) mg/dL Calcium 8.0 L (8.4-10.2) mg/dL Assessment and Plan (1) Pseudomonas aeruginosa infection Current Visit: Yes Status: Acute Code(s): A49.8 - OTHER BACTERIAL INFECTIONS OF UNSPECIFIED SITE SNOMED Code(s): 09625360 (2) Allergy to multiple antibiotics Current Visit: Yes Status: Acute Code(s): Z88.1 - ALLERGY STATUS TO OTHER ANTIBIOTIC AGENTS SNOMED Code(s): 238391989 (3) Tracheobronchitis Current Visit: No Status: Acute Code(s): J40 - BRONCHITIS, NOT SPECIFIED ACUTE OR CHRONIC SNOMED Code(s): 41530686 Plan: 1patient presented to hospital with increasing shortness of breath and this patient also bringing up some purulent sputum concerning for purulent tracheobronchitis with COPD exacerbation as initial chest x-ray did not show any evidence of acute infiltrate however the sputum is now growing Pseudomonas aeruginosa and the patient did have multiple antibiotic allergies we will obtain a CT of the chest to make sure no evidence of any pneumonia and however this will need to treat this positive sputum culture. 2patient with multiple antibiotic ALLERGIES that would limit the number of antibiotic safe to use. 3patient did have CT of the chest did show some atelectasis but no consolidation and repeat procalcitonin is low more likely dealing with purulent tracheobronchitis than pneumonia 4 patient mention improvement in her symptoms and has tolerated Azactam which will be continued short course while inpatient for the purulent tracheobronchitis, and can be safely discontinued at discharge Dictation was produced using [employer] dictation software. please excuse any grammatical, word or spelling errors. Time with Patient: Less than 30
--- NOTE | 2024-06-07 14:28 | P.PN ---
Subjective Progress Note Date: 06/07/24 This is another hospitalization for this 49-year-old female patient, just discharged home on May 28, 2024 following a COPD exacerbation. She presented here again yesterday May 30, 2024 with complaints of increasing shortness of breath cough and congestion. She also has complaints of generalize d pain and is asking for more pain medication. States she has now quit smoking. Chest x-ray reveals no acute cardiopulmonary process. White count 16.7. Hemoglobin 13.3. Platelets 227. Sodium 136. Potassium 5.2. Bicarb 38. BUN 49. Creatinine 0.74. Glucose 191. proBNP 95. She is seen in consultation in the emergency department. Sitting up on the stretcher. Awake and alert in no acute distress. Lung sounds are clear. Diminished. The patient is seen today June 01, 2024 in follow-up on the regular medical floor. She is currently sitting up in bed. Awake and alert in no acute distress. Maintaining O2 saturations in the 90s on 3 L/min per nasal cannula. White count 8.9. Hemoglobin 11.3. Platelets 247. D-dimer 0.17. Sodium 136. Potassium 4.5. Bicarb 37. BUN 23. Creatinine 0.6. Glucose 241. She is continued on Symbicort, albuterol, Solu-Medrol, Singulair, Spiriva. NicoDerm patch in place. Remains on doxycycline. The patient is seen today June 02, 2024 in follow-up on the regular medical floor. Resting in bed. Awake and alert in no acute distress. Continues with some dry cough. Maintaining good O2 saturations in the mid 90s on 3 L/min per nasal cannula. Afebrile. Sputum culture showing gram-negative bacilli. Blood culture reveals no growth. She is continued on doxycycline. Continued on Symbicort, Spiriva, Singulair, albuterol, Solu-Medrol. NicoDerm patch in place. The patient is seen today June 03, 2024 in follow-up on the regular medical floor. She is awake and alert in no acute distress. Continues with a loose congested cough. No fever or chills. Maintaining O2 saturations in the 90s on 3 L/min per nasal cannula. Sputum culture positive for Pseudomonas aeruginosa. She is currently on doxycycline. Remains on bronchodilators and steroids. NicoDerm patch in place. The patient is seen today June 04, 2024 in follow-up on the regular medical floor. She is sitting up in bed. Awake and alert in no acute distress. She is maintaining good O2 saturation in the per minute per nasal cannula. She is afebrile. Sputum culture was positive for Pseudomonas aeruginosa. She is currently on IV doxycycline and received aztreonam. Calcitonin was negative at 0.02. White count 10.4. Hemoglobin 11.4. Platelets 313. Sodium 136. Potassium 4.9. Bicarb 36. BUN 29. Creatinine 0.8. Glucose 345. She is continued on Symbicort, Spiriva, Singulair, albuterol, Solu-Medrol. NicoDerm patch in place. CT scan of the chest revealed mild linear scarring/atelectasis in the right lower lobe and lingular portion of the left upper lobe. Otherwise no acute abnormalities. She has had ongoing complaints of epigastric plan pain. Plan is for EGD today. The patient is seen today June 05, 2024 in follow-up on the regular medical floor. She is awake and alert in no acute distress. Sitting up at the bedside. Denies any worsening shortness of breath, cough or congestion. Maintaining good O2 saturations in the 90s on 4 L/min per nasal cannula. She did undergo EGD yesterday that revealed evidence of gastritis, hiatal hernia and esophagitis. No active bleeding. Sputum culture positive for Pseudomonas aerug inosa. Glucose 249. She is currently on aztreonam. Continued on bronchodilators. Continued on a prednisone taper. NicoDerm patch in place. The patient is seen today June 06, 2024 in follow-up on the regular medical floor. She is sitting up in bed. Awake and alert in no acute distress. No worsening shortness of breath, cough or congestion. She is maintaining good O2 saturations in the 90s on 4 L/min per nasal cannula. White count 12.2. Hemoglobin 11.6. Platelets 289. Sodium 140. Potassium 4.6. Bicarb 37. BUN 28. Creatinine 0.7. Glucose 223. She is continued on aztreonam. Continued on bronchodilators and steroids. NicoDerm patch in place. The patient is seen today June 07, 2024 in follow-up on the regular medical floor. She is sitting up in bed. Awake and alert in no acute distress. She did undergo colonoscopy today was found to have diverticulosis, application internship al/external hemorrhoids. No signs of active bleeding. She is maintaining O2 saturations in the mid 90s on 4 L/min per nasal cannula. White count 9.9. Hemoglobin 12.1. Platelets 249. Sodium 137. Potassium 4.5. Bicarb 40. BUN 23. Creatinine 0.53. Glucose 82. Is on aztreonam per ID service. Continued on bronchodilators and prednisone taper. Objective - Vital Signs Vital signs: Vital Signs Temp 98.0 F 06/07/24 12:34 Pulse 79 06/07/24 12:34 Resp 13 06/07/24 08:04 BP 96/61 06/07/24 12:34 Pulse Ox 83 L 06/07/24 12:34 FiO2 50 05/31/24 00:39 Intake & Output 06/06/24 06/07/24 06/07/24 18:59 06:59 18:59 Intake Total 220 100 Balance 220 100 Weight 96 kg 96 kg Intake: IV 100 Intake, IV Titration 100 Amount Aztreonam 2 gm In Sodium 100 Chloride 0.9% 100 ml @ 33 .3 mls/hr IVPB Q8H [facility] Rx #:[id number] Oral 120 Other: Voiding Method Bedside Commode # Voids 5 # Bowel Movements 5 - Exam GENERAL EXAM: Alert, 49-year-old female, on 4 L nasal cannula, in no apparent distress. HEAD: Normocephalic. EYES: Normal reaction of pupils, equal size. NOSE: Clear with pink turbinates. THROAT: No erythema or exudates. NECK: No masses, no JVD. CHEST: No chest wall deformity. LUNGS: Equal air entry with no crackles, wheeze, rhonchi or dullness. Diminished CVS: S1 and S2 normal with no audible murmur, regular rhythm. ABDOMEN: No hepatosplenomegaly, normal bowel sounds, no guarding or rigidity. SPINE: No scoliosis or deformity SKIN: No rashes CENTRAL NERVOUS SYSTEM: No focal deficits, tone is normal in all 4 extremities. EXTREMITIES: There is no peripheral edema. No clubbing, no cyanosis. Peripheral pulses are intact. - Labs CBC & Chem 7: 06/07/24 05:29 06/07/24 05:29 Labs: Abnormal Lab Results - Last 24 Hours (Table) 06/06/24 06/06/24 06/07/24 Range/Units 16:10 20:57 05:29 MCHC 30.9 L (31.0-37.0) g/dL Chloride (98-107) mmol/L Carbon Dioxide (22-30) mmol/L BUN (7-17) mg/dL POC Glucose (mg/dL) 237 H 171 H (70-110) mg/dL Calcium (8.4-10.2) mg/dL 06/07/24 06/07/24 Range/Units 05:29 11:29 MCHC (31.0-37.0) g/dL Chloride 94 L (98-107) mmol/L Carbon Dioxide 40 H (22-30) mmol/L BUN 23 H (7-17) mg/dL POC Glucose (mg/dL) 171 H (70-110) mg/dL Calcium 8.0 L (8.4-10.2) mg/dL Assessment and Plan Assessment: Mild exacerbation of COPD secondary to Pseudomonas aeruginosa, suspect colonized. Procalcitonin 0.02. CT scan of the chest revealed areas of linear atelectasis but no acute pulmonary abnormalities Chronic pain syndrome secondary to fibromyalgia, requested more pain medication Epigastric pain, EGD 06/04/2024 revealed mild gastritis, esophagitis, hiatal hernia Recent discharge May 28, 2024 following acute on chronic hypoxic respirator y failure secondary COPD exacerbation, has been oxygen dependent at 2 L/min nasal cannula on outpatient basis Chronic tobacco dependence Recent COVID-19 infection, no evidence of pneumonia, D-dimer is low, no previous vaccination, no previous infections Left upper lobe atelectasis, noted on a previous CAT scan of the chest that was done on 09/23/2022. Fibromyalgia Hypertension Hyperlipidemia History of seizure disorder History of CVA Irritable bowel disease Chronic pancreatic insufficiency/fibrosis Migraines Nephrolithiasis Rheumatoid arthritis Plan: The patient was seen and evaluated Labs and medications reviewed Antibiotics per ID service Stable on 4 L nasal cannula Continued on bronchodilators, prednisone taper Cleared for discharge from the pulmonary standpoint I have personally seen and examined the patient, performed the documentation and the assessment and plan as written. Number of minutes spent on the visit: 10 Dictation was produced using [employer] dictation software. Please excuse any grammatical, word or spelling errors.
[2024-06-07 16:23] LABS: Glucose,Whole Blood 321 mg/dL (70-110)
[2024-06-07 20:30] LABS: Glucose,Whole Blood 158 mg/dL (70-110)
--- NOTE | 2024-06-07 21:46 | PN ---
PROGRESS NOTE DATE OF SERVICE: 06/07/2024 SUBJECTIVE: This is a 49-year-old woman, who was admitted with COPD acute exacerbation with tracheobronchitis with Pseudomonas aeruginosa, is receiving antibiotics. Infectious Disease wanted to get antibiotics for pneumonia. The patient is scheduled for a colonoscopy also. No chest pain. No palpitation. OBJECTIVE: VITAL SIGNS: Pulse 79, blood pressure 96/61. CHEST: A few scattered rhonchi and crackles. ABDOMEN: Soft. NERVOUS SYSTEM: Nonfocal. LABORATORY DATA: Reviewed. ASSESSMENT: 1. Chronic obstructive pulmonary disease acute exacerbation with acute purulent tracheobronchitis with Pseudomonas aeruginosa. 2. Severe right loin pain and right renal angle tenderness with negative CT for colonoscopy. 3. Elevated plasma lactic acid, present on admission. 4. History of congestive heart failure. 5. Hypertension. 6. History of recent COVID-19 infection. 7. History of rheumatoid arthritis. 8. History of pancreatic fibrosis. 9. Lower gastrointestinal bleeding with bright red blood per rectum. RECOMMENDATIONS AND DISCUSSION: Recommend to continue current management and continue symptomatic treatment. Otherwise colonoscopy, symptomatic treatment. I would stop the [facility] at this time. Monitor closely. Continue with Coreg. Repeat labs in the morning and possible scope tomorrow. Taper steroids. Guarded prognosis. Further recommendations to follow. MMODL / IJN: [id number] /
[2024-06-08 06:25] LABS: Glucose,Whole Blood 139 mg/dL (70-110)
[2024-06-08 10:59] LABS: Blood Urea Nitrogen 21.3 mg/dL (9.0-27.0); Calcium 7.6 mg/dL (8.7-10.3); Chloride 95 mmol/L (96-109); Glucose 137 mg/dL (70-110); Potassium 4.8 mmol/L (3.5-5.5); Sodium 140 mmol/L (135-145)
[2024-06-08 11:41] LABS: Glucose,Whole Blood 240 mg/dL (70-110)
[2024-06-08 12:23] LABS: Basophils # (A) 0.01 X 10*3/uL (0.00-0.10); Basophils % (A) 0.1 %; Eosinophils # (A) 0.09 X 10*3/uL (0.04-0.35); Eosinophils % (A) 0.8 %; HCT 30.1 % (37.2-46.3); HGB 9.2 g/dL (12.0-15.0); Lymphocytes # (A) 2.49 X 10*3/uL (0.90-5.00); Lymphocytes % (A) 22.3 %; MCHC 30.6 g/dL (32.0-37.0); MCV 88.3 FL (80.0-97.0); Mean Platelet Volume 9.8 FL (9.5-12.2); Monocytes # (A) 0.55 X 10*3/uL (0.20-1.00); Monocytes % (A) 4.9 %; NRBC Per 100 WBC 0 X 10*3/uL (0.00-0.01); Neutrophils # (A) 7.83 X 10*3/uL (1.80-7.70); Platelet Count 194 X 10*3/uL (140-440); RBC 3.41 X 10*6/uL (4.10-5.20); RDW 14.8 % (11.5-14.5); WBC 11.18 X 10*3/uL (4.50-10.00)
--- NOTE | 2024-06-08 13:16 | P.PN ---
Subjective Progress Note Date: 06/08/24 This is another hospitalization for this 49-year-old female patient, just discharged home on May 28, 2024 following a COPD exacerbation. She presented here again yesterday May 30, 2024 with complaints of increasing shortness of breath cough and congestion. She also has complaints of generalize d pain and is asking for more pain medication. States she has now quit smoking. Chest x-ray reveals no acute cardiopulmonary process. White count 16.7. Hemoglobin 13.3. Platelets 227. Sodium 136. Potassium 5.2. Bicarb 38. BUN 49. Creatinine 0.74. Glucose 191. proBNP 95. She is seen in consultation in the emergency department. Sitting up on the stretcher. Awake and alert in no acute distress. Lung sounds are clear. Diminished. The patient is seen today June 01, 2024 in follow-up on the regular medical floor. She is currently sitting up in bed. Awake and alert in no acute distress. Maintaining O2 saturations in the 90s on 3 L/min per nasal cannula. White count 8.9. Hemoglobin 11.3. Platelets 247. D-dimer 0.17. Sodium 136. Potassium 4.5. Bicarb 37. BUN 23. Creatinine 0.6. Glucose 241. She is continued on Symbicort, albuterol, Solu-Medrol, Singulair, Spiriva. NicoDerm patch in place. Remains on doxycycline. The patient is seen today June 02, 2024 in follow-up on the regular medical floor. Resting in bed. Awake and alert in no acute distress. Continues with some dry cough. Maintaining good O2 saturations in the mid 90s on 3 L/min per nasal cannula. Afebrile. Sputum culture showing gram-negative bacilli. Blood culture reveals no growth. She is continued on doxycycline. Continued on Symbicort, Spiriva, Singulair, albuterol, Solu-Medrol. NicoDerm patch in place. The patient is seen today June 03, 2024 in follow-up on the regular medical floor. She is awake and alert in no acute distress. Continues with a loose congested cough. No fever or chills. Maintaining O2 saturations in the 90s on 3 L/min per nasal cannula. Sputum culture positive for Pseudomonas aeruginosa. She is currently on doxycycline. Remains on bronchodilators and steroids. NicoDerm patch in place. The patient is seen today June 04, 2024 in follow-up on the regular medical floor. She is sitting up in bed. Awake and alert in no acute distress. She is maintaining good O2 saturation in the per minute per nasal cannula. She is afebrile. Sputum culture was positive for Pseudomonas aeruginosa. She is currently on IV doxycycline and received aztreonam. Calcitonin was negative at 0.02. White count 10.4. Hemoglobin 11.4. Platelets 313. Sodium 136. Potassium 4.9. Bicarb 36. BUN 29. Creatinine 0.8. Glucose 345. She is continued on Symbicort, Spiriva, Singulair, albuterol, Solu-Medrol. NicoDerm patch in place. CT scan of the chest revealed mild linear scarring/atelectasis in the right lower lobe and lingular portion of the left upper lobe. Otherwise no acute abnormalities. She has had ongoing complaints of epigastric plan pain. Plan is for EGD today. The patient is seen today June 05, 2024 in follow-up on the regular medical floor. She is awake and alert in no acute distress. Sitting up at the bedside. Denies any worsening shortness of breath, cough or congestion. Maintaining good O2 saturations in the 90s on 4 L/min per nasal cannula. She did undergo EGD yesterday that revealed evidence of gastritis, hiatal hernia and esophagitis. No active bleeding. Sputum culture positive for Pseudomonas aerug inosa. Glucose 249. She is currently on aztreonam. Continued on bronchodilators. Continued on a prednisone taper. NicoDerm patch in place. The patient is seen today June 06, 2024 in follow-up on the regular medical floor. She is sitting up in bed. Awake and alert in no acute distress. No worsening shortness of breath, cough or congestion. She is maintaining good O2 saturations in the 90s on 4 L/min per nasal cannula. White count 12.2. Hemoglobin 11.6. Platelets 289. Sodium 140. Potassium 4.6. Bicarb 37. BUN 28. Creatinine 0.7. Glucose 223. She is continued on aztreonam. Continued on bronchodilators and steroids. NicoDerm patch in place. The patient is seen today June 07, 2024 in follow-up on the regular medical floor. She is sitting up in bed. Awake and alert in no acute distress. She did undergo colonoscopy today was found to have diverticulosis, engineering intern al/external hemorrhoids. No signs of active bleeding. She is maintaining O2 saturations in the mid 90s on 4 L/min per nasal cannula. White count 9.9. Hemoglobin 12.1. Platelets 249. Sodium 137. Potassium 4.5. Bicarb 40. BUN 23. Creatinine 0.53. Glucose 82. Is on aztreonam per ID service. Continued on bronchodilators and prednisone taper. The patient is seen today June 08, 2024 in follow-up on the regular medical floor. She is awake and alert in no acute distress. Maintaining O2 saturations in the 90s on 6 L high flow nasal cannula. She is afebrile. Hemodynamically stable. White count 11.1. Hemoglobin 9.2. Platelets 194. Sodium 140. Potassium 4.8. Bicarb 38. BUN 21. Creatinine 0.6. Glucose 137. She remains on aztreonam per ID service. Continued on bronchodilators and steroids. Objective - Vital Signs Vital signs: Vital Signs Temp 98.0 F 06/08/24 07:30 Pulse 83 06/08/24 07:30 Resp 18 06/08/24 07:30 BP 100/57 06/08/24 07:30 Pulse Ox 92 L 06/08/24 08:02 FiO2 50 05/31/24 00:39 Intake & Output 06/07/24 06/08/24 06/08/24 18:59 06:59 18:59 Intake Total 100 Balance 100 Weight 96 kg 94.5 kg Intake: IV 100 Other: Voiding Method Toilet # Voids 5 5 # Bowel Movements 3 - Exam GENERAL EXAM: Alert, 49-year-old female, sitting up in bed, on 6 L nasal cannula, in no apparent distress. HEAD: Normocephalic. EYES: Normal reaction of pupils, equal size. NOSE: Clear with pink turbinates. THROAT: No erythema or exudates. NECK: No masses, no JVD. CHEST: No chest wall deformity. LUNGS: Equal air entry with no crackles, wheeze, rhonchi or dullness. Diminished CVS: S1 and S2 normal with no audible murmur, regular rhythm. ABDOMEN: No hepatosplenomegaly, normal bowel sounds, no guarding or rigidity. SPINE: No scoliosis or deformity SKIN: No rashes CENTRAL NERVOUS SYSTEM: No focal deficits, tone is normal in all 4 extremities. EXTREMITIES: There is no peripheral edema. No clubbing, no cyanosis. Peripheral pulses are intact. - Labs CBC & Chem 7: 06/08/24 06:13 06/08/24 06:13 Labs: Abnormal Lab Results - Last 24 Hours (Table) 06/07/24 06/07/24 06/08/24 Range/Units 16:22 20:29 06:13 WBC 11.18 H (4.50-10.00) X 10*3/uL RBC 3.41 L (4.10-5.20) X 10*6/uL Hgb 9.2 L (12.0-15.0) g/dL Hct 30.1 L (37.2-46.3) % MCHC 30.6 L (32.0-37.0) g/dL RDW 14.8 H (11.5-14.5) % Immature Gran # 0.21 H (0.00-0.04) X 10*3/uL Neutrophils # 7.83 H (1.80-7.70) X 10*3/uL Chloride (96-109) mmol/L Carbon Dioxide (21.6-31.8) mmol/L BUN/Creatinine Ratio (12.00-20.00) Ratio Glucose (70-110) mg/dL POC Glucose (mg/dL) 321 H 158 H (70-110) mg/dL Calcium (8.7-10.3) mg/dL 06/08/24 06/08/24 06/08/24 Range/Units 06:13 06:23 11:39 WBC (4.50-10.00) X 10*3/uL RBC (4.10-5.20) X 10*6/uL Hgb (12.0-15.0) g/dL Hct (37.2-46.3) % MCHC (32.0-37.0) g/dL RDW (11.5-14.5) % Immature Gran # (0.00-0.04) X 10*3/uL Neutrophils # (1.80-7.70) X 10*3/uL Chloride 95 L (96-109) mmol/L Carbon Dioxide 38.0 H (21.6-31.8) mmol/L BUN/Creatinine Ratio 35.50 H (12.00-20.00) Ratio Glucose 137 H (70-110) mg/dL POC Glucose (mg/dL) 139 H 240 H (70-110) mg/dL Calcium 7.6 L (8.7-10.3) mg/dL Assessment and Plan Assessment: Mild exacerbation of COPD secondary to Pseudomonas aeruginosa, suspect colonized. Procalcitonin 0.02. CT scan of the chest revealed areas of linear atelectasis but no acute pulmonary abnormalities Chronic pain syndrome secondary to fibromyalgia, requested more pain medication Epigastric pain, EGD 06/04/2024 revealed mild gastritis, esophagitis, hiatal hernia Recent discharge May 28, 2024 following acute on chronic hypoxic respiratory failure secondary COPD exacerbation, has been oxygen dependent at 2 L/min nasal cannula on outpatient basis Chronic tobacco dependence Recent COVID-19 infection, no evidence of pneumonia, D-dimer is low, no previous vaccination, no previous infections Left upper lobe atelectasis, noted on a previous CAT scan of the chest that was done on 09/23/2022. Fibromyalgia Hypertension Hyperlipidemia History of seizure disorder History of CVA Irritable bowel disease Chronic pancreatic insufficiency/fibrosis Migraines Nephrolithiasis Rheumatoid arthritis Plan: The patient was seen and evaluated Labs and medications reviewed Antibiotics per ID service Continued on bronchodilators, prednisone taper I have personally seen and examined the patient, performed the documentation and the assessment and plan as written. Number of minutes spent on the visit: 10 Dictation was produced using [employer] dictation software. Please excuse any grammatical, word or spelling errors.
--- NOTE | 2024-06-08 13:25 | P.PN ---
Subjective Progress Note Date: 06/08/24 Principal diagnosis: Reason for follow-up is Pseudomonas tracheobronchitis multiple antibiotic allergies Patient is a 49-year-old female with a past medical history sign ificant for fibromyalgia hypertension COPD CVA TIA seizure disorder and syncope with recurrent admission to the hospital for shortness of breath and this patient has been diagnosed with a COPD exacerbation with a purulent tracheobronchitis sputum culture did grew Pseudomonas aeruginosa patient did h ave multiple antibiotic allergies prompting this consultation. On today's evaluation that is 06/08/2024,the patient denies any fever or any chills, patient is breathing slightly comfortably on 6 L nasal oxygen P denies any chest pain cough decreased intensity no nausea vomiting abdominal pain has been concerned about significant swelling to the right lower extremity. Patient white count is 11.18 creatinine 0.6 Objective - Vital Signs Vital signs: Vital Signs Temp 98.0 F 06/08/24 07:30 Pulse 83 06/08/24 07:30 Resp 18 06/08/24 07:30 BP 100/57 06/08/24 07:30 Pulse Ox 92 L 06/08/24 08:02 FiO2 50 05/31/24 00:39 Intake & Output 06/07/24 06/08/24 06/08/24 18:59 06:59 18:59 Intake Total 100 Balance 100 Weight 96 kg 94.5 kg Intake: IV 100 Other: Voiding Method Toilet # Voids 5 5 # Bowel Movements 3 - Exam GENERAL DESCRIPTION: Middle-age female up in bed in no distress RESPIRATORY SYSTEM: Unlabored breathing , decreased intensity breath sound no wheeze HEART: S1 S2 regular rate and rhythm , ABDOMEN: Soft , no tenderness EXTREMITIES: More swelling to the right leg than the left but no redness - Labs CBC & Chem 7: 06/08/24 06:13 06/08/24 06:13 Labs: Abnormal Lab Results - Last 24 Hours (Table) 06/07/24 06/07/24 06/08/24 Range/Units 16:22 20:29 06:13 WBC 11.18 H (4.50-10.00) X 10*3/uL RBC 3.41 L (4.10-5.20) X 10*6/uL Hgb 9.2 L (12.0-15.0) g/dL Hct 30.1 L (37.2-46.3) % MCHC 30.6 L (32.0-37.0) g/dL RDW 14.8 H (11.5-14.5) % Immature Gran # 0.21 H (0.00-0.04) X 10*3/uL Neutrophils # 7.83 H (1.80-7.70) X 10*3/uL Chloride (96-109) mmol/L Carbon Dioxide (21.6-31.8) mmol/L BUN/Creatinine Ratio (12.00-20.00) Ratio Glucose (70-110) mg/dL POC Glucose (mg/dL) 321 H 158 H (70-110) mg/dL Calcium (8.7-10.3) mg/dL 06/08/24 06/08/24 06/08/24 Range/Units 06:13 06:23 11:39 WBC (4.50-10.00) X 10*3/uL RBC (4.10-5.20) X 10*6/uL Hgb (12.0-15.0) g/dL Hct (37.2-46.3) % MCHC (32.0-37.0) g/dL RDW (11.5-14.5) % Immature Gran # (0.00-0.04) X 10*3/uL Neutrophils # (1.80-7.70) X 10*3/uL Chloride 95 L (96-109) mmol/L Carbon Dioxide 38.0 H (21.6-31.8) mmol/L BUN/Creatinine Ratio 35.50 H (12.00-20.00) Ratio Glucose 137 H (70-110) mg/dL POC Glucose (mg/dL) 139 H 240 H (70-110) mg/dL Calcium 7.6 L (8.7-10.3) mg/dL Assessment and Plan (1) Pseudomonas aeruginosa infection Current Visit: Yes Status: Acute Code(s): A49.8 - OTHER BACTERIAL INFECTIONS OF UNSPECIFIED SITE SNOMED Code(s): 07530199 (2) Allergy to multiple antibiotics Current Visit: Yes Status: Acute Code(s): Z88.1 - ALLERGY STATUS TO OTHER AN TIBIOTIC AGENTS SNOMED Code(s): 723773843 (3) Tracheobronchitis Current Visit: No Status: Acute Code(s): J40 - BRONCHITIS, NOT SPECIFIED ACUTE OR CHRONIC SNOMED Code(s): 46205902 Plan: 1patient presented to hospital with increasing shortness of breath and this patient also bringing up some purulent sputum concerning for purulent tracheobronchitis with COPD exacerbation as initial chest x-ray did not show any evidence of acute infiltrate however the sputum is now growing Pseudomonas aeruginosa and the patient did have multiple antibiotic allergies we will obtain a CT of the chest to make sure no evidence of any pneumonia and however this will need to treat this positive sputum culture. 2patient with multiple antibiotic ALLERGIES that would limit the number of antibiotic safe to use. 3patient did have CT of the chest did show some atelectasis but no consolidation and repeat procalcitonin is low more likely dealing with purulent tracheobronchitis than pneumonia 4 patient mention improvement in her symptoms and has tolerated Azactam continue to while inpatient for the purulent tracheobronchitis,. 5patient have significant swelling of the right leg compared to the left leg we will check a Doppler to make sure no DVT Dictation was produced using [employer] dictation software. please excuse any gramma tical, word or spelling errors. Time with Patient: Less than 30
--- NOTE | 2024-06-08 13:34 | US ---
EXAMINATION TYPE: US venous doppler duplex LE LT DATE OF EXAM: 06/08/2024 1:21 PM COMPARISON: NONE CLINICAL INDICATION: Female, 49 years old with history of swelling; left leg swelling, TECHNIQUE: The lower extremity deep venous system is examined utilizing real time linear array sonog marce with graded compression, color doppler sonography, and spectral doppler. SIDE PERFORMED: Left FINDINGS: VESSELS IMAGED: Common Femoral Vein Deep Femoral Vein Greater Saphenous Vein * Femoral Vein Popliteal Vein Small Saphenous Vein * Proximal Calf Veins (* superficial vessels) Left Leg: Negative for DVT, Color Doppler imaging shows patency of the vessels. Spectral waveforms a re within normal limits. IMPRESSION: No evidence of deep vein thrombosis of the left lower extremity. [facility], , 06/08/2024 1:32 PM
--- NOTE | 2024-06-08 14:13 | P.PN ---
Subjective Progress Note Date: 06/08/24 SURGICAL PROGRESS NOTE CHIEF COMPLAINT: Epigastric pain HISTORY OF PRESENT ILLNESS: Patient sitting up in bed. She is tolerating diet. No new complaints. Patient status post colonoscopy that reported diverticulosis with internal and external hemorrhoids. Afebrile. WBC 11.18 Hgb 12.1 to 9.2 Patient seen and examined with Dr. Paige PHYSICAL EXAM: VITAL SIGNS: Reviewed. GENERAL: Well-developed in no acute distress. ABDOMEN: Soft. Nondistended. NEUROLOGIC: Alert and oriented. Cranial nerves II through XII grossly intact. ASSESSMENT: 1. Epigastric pain status post gastritis, hiatal hernia and mild esophagitis noted on EGD 2. Lower GI bleed with bright red blood per rectum likely related to hemorrhoids. Status post colonoscopy revealing hemorrhoids and diverticulosis. No active bleeding. PLAN: -Continue Protonix -Repeat CBC in a.m. Physician Time Piece Repairer note has been reviewed by physician. Signing provider agrees with the documented findings, assessment, and plan of care. Objective - Vital Signs Vital signs: Vital Signs Temp 98.1 F 06/08/24 13:37 Pulse 78 06/08/24 13:37 Resp 18 06/08/24 13:37 BP 131/65 06/08/24 13:37 Pulse Ox 90 L 06/08/24 13:37 FiO2 50 05/31/24 00:39 Intake & Output 06/07/24 06/08/24 06/08/24 18:59 06:59 18:59 Intake Total 100 Balance 100 Weight 96 kg 94.5 kg Intake: IV 100 Other: Voiding Method Toilet # Voids 5 5 # Bowel Movements 3 - Labs CBC & Chem 7: 06/08/24 06:13 06/08/24 06:13 Labs: Abnormal Lab Results - Last 24 Hours (Table) 06/07/24 06/07/24 06/08/24 Range/Units 16:22 20:29 06:13 WBC 11.18 H (4.50-10.00) X 10*3/uL RBC 3.41 L (4.10-5.20) X 10*6/uL Hgb 9.2 L (12.0-15.0) g/dL Hct 30.1 L (37.2-46.3) % MCHC 30.6 L (32.0-37.0) g/dL RDW 14.8 H (11.5-14.5) % Immature Gran # 0.21 H (0.00-0.04) X 10*3/uL Neutrophils # 7.83 H (1.80-7.70) X 10*3/uL Chloride (96-109) mmol/L Carbon Dioxide (21.6-31.8) mmol/L BUN/Creatinine Ratio (12.00-20.00) Ratio Glucose (70-110) mg/dL POC Glucose (mg/dL) 321 H 158 H (70-110) mg/dL Calcium (8.7-10.3) mg/dL 06/08/24 06/08/24 06/08/24 Range/Units 06:13 06:23 11:39 WBC (4.50-10.00) X 10*3/uL RBC (4.10-5.20) X 10*6/uL Hgb (12.0-15.0) g/dL Hct (37.2-46.3) % MCHC (32.0-37.0) g/dL RDW (11.5-14.5) % Immature Gran # (0.00-0.04) X 10*3/uL Neutrophils # (1.80-7.70) X 10*3/uL Chloride 95 L (96-109) mmol/L Carbon Dioxide 38.0 H (21.6-31.8) mmol/L BUN/Creatinine Ratio 35.50 H (12.00-20.00) Ratio Glucose 137 H (70-110) mg/dL POC Glucose (mg/dL) 139 H 240 H (70-110) mg/dL Calcium 7.6 L (8.7-10.3) mg/dL
[2024-06-08 14:49] LABS: HCT 35.9 % (34.0-46.0); HGB 10.8 gm/dL (11.4-16.0); Hypochromasia Marked; MCH 27.5 pg (25.0-35.0); MCHC 30.1 g/dL (31.0-37.0); MCV 91.5 fL (80.0-100.0); Mean Platelet Volume 6.8; Platelet Count 206 k/uL (150-450); RBC 3.92 m/uL (3.80-5.40); RDW 14.3 % (11.5-15.5); WBC 13.4 k/uL (3.8-10.6)
[2024-06-08 17:05] LABS: Glucose,Whole Blood 227 mg/dL (70-110)
[2024-06-08] MEDS: HYDROmorphone 1 MG/ML 1 ML SYRINGE IVP STA (19:23)
[2024-06-08 20:49] LABS: Glucose,Whole Blood 272 mg/dL (70-110)
[2024-06-09 06:19] LABS: Glucose,Whole Blood 233 mg/dL (70-110)
[2024-06-09 07:19] VITALS: TEMP 97.5
[2024-06-09 07:49] VITALS: BP 144/84
[2024-06-09 07:51] VITALS: PULSE 89; RESP 17
--- NOTE | 2024-06-09 10:55 | P.PN ---
Subjective Progress Note Date: 06/09/24 This is another hospitalization for this 49-year-old female patient, just discharged home on May 28, 2024 following a COPD exacerbation. She presented here again yesterday May 30, 2024 with complaints of increasing shortness of breath cough and congestion. She also has complaints of generalize d pain and is asking for more pain medication. States she has now quit smoking. Chest x-ray reveals no acute cardiopulmonary process. White count 16.7. Hemoglobin 13.3. Platelets 227. Sodium 136. Potassium 5.2. Bicarb 38. BUN 49. Creatinine 0.74. Glucose 191. proBNP 95. She is seen in consultation in the emergency department. Sitting up on the stretcher. Awake and alert in no acute distress. Lung sounds are clear. Diminished. The patient is seen today June 01, 2024 in follow-up on the regular medical floor. She is currently sitting up in bed. Awake and alert in no acute distress. Maintaining O2 saturations in the 90s on 3 L/min per nasal cannula. White count 8.9. Hemoglobin 11.3. Platelets 247. D-dimer 0.17. Sodium 136. Potassium 4.5. Bicarb 37. BUN 23. Creatinine 0.6. Glucose 241. She is continued on Symbicort, albuterol, Solu-Medrol, Singulair, Spiriva. NicoDerm patch in place. Remains on doxycycline. The patient is seen today June 02, 2024 in follow-up on the regular medical floor. Resting in bed. Awake and alert in no acute distress. Continues with some dry cough. Maintaining good O2 saturations in the mid 90s on 3 L/min per nasal cannula. Afebrile. Sputum culture showing gram-negative bacilli. Blood culture reveals no growth. She is continued on doxycycline. Continued on Symbicort, Spiriva, Singulair, albuterol, Solu-Medrol. NicoDerm patch in place. The patient is seen today June 03, 2024 in follow-up on the regular medical floor. She is awake and alert in no acute distress. Continues with a loose congested cough. No fever or chills. Maintaining O2 saturations in the 90s on 3 L/min per nasal cannula. Sputum culture positive for Pseudomonas aeruginosa. She is currently on doxycycline. Remains on bronchodilators and steroids. NicoDerm patch in place. The patient is seen today June 04, 2024 in follow-up on the regular medical floor. She is sitting up in bed. Awake and alert in no acute distress. She is maintaining good O2 saturation in the per minute per nasal cannula. She is afebrile. Sputum culture was positive for Pseudomonas aeruginosa. She is currently on IV doxycycline and received aztreonam. Calcitonin was negative at 0.02. White count 10.4. Hemoglobin 11.4. Platelets 313. Sodium 136. Potassium 4.9. Bicarb 36. BUN 29. Creatinine 0.8. Glucose 345. She is continued on Symbicort, Spiriva, Singulair, albuterol, Solu-Medrol. NicoDerm patch in place. CT scan of the chest revealed mild linear scarring/atelectasis in the right lower lobe and lingular portion of the left upper lobe. Otherwise no acute abnormalities. She has had ongoing complaints of epigastric plan pain. Plan is for EGD today. The patient is seen today June 05, 2024 in follow-up on the regular medical floor. She is awake and alert in no acute distress. Sitting up at the bedside. Denies any worsening shortness of breath, cough or congestion. Maintaining good O2 saturations in the 90s on 4 L/min per nasal cannula. She did undergo EGD yesterday that revealed evidence of gastritis, hiatal hernia and esophagitis. No active bleeding. Sputum culture positive for Pseudomonas aerug inosa. Glucose 249. She is currently on aztreonam. Continued on bronchodilators. Continued on a prednisone taper. NicoDerm patch in place. The patient is seen today June 06, 2024 in follow-up on the regular medical floor. She is sitting up in bed. Awake and alert in no acute distress. No worsening shortness of breath, cough or congestion. She is maintaining good O2 saturations in the 90s on 4 L/min per nasal cannula. White count 12.2. Hemoglobin 11.6. Platelets 289. Sodium 140. Potassium 4.6. Bicarb 37. BUN 28. Creatinine 0.7. Glucose 223. She is continued on aztreonam. Continued on bronchodilators and steroids. NicoDerm patch in place. The patient is seen today June 07, 2024 in follow-up on the regular medical floor. She is sitting up in bed. Awake and alert in no acute distress. 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 No signs of active bleeding. She is maintaining O2 saturations in the mid 90s on 4 L/min per nasal cannula. White count 9.9. Hemoglobin 12.1. Platelets 249. Sodium 137. Potassium 4.5. Bicarb 40. BUN 23. Creatinine 0.53. Glucose 82. Is on aztreonam per ID service. Continued on bronchodilators and prednisone taper. The patient is seen today June 08, 2024 in follow-up on the regular medical floor. She is awake and alert in no acute distress. Maintaining O2 saturations in the 90s on 6 L high flow nasal cannula. She is afebrile. Hemodynamically stable. White count 11.1. Hemoglobin 9.2. Platelets 194. Sodium 140. Potassium 4.8. Bicarb 38. BUN 21. Creatinine 0.6. Glucose 137. She remains on aztreonam per ID service. Continued on bronchodilators and steroids. The patient is seen today June 09, 2024 in follow-up on the regular medical floor. She is currently resting comfortably in bed. Awake and alert in no acute distress. Continues to maintain O2 saturations in the 90s on 4 L/min per nasal cannula. No IV fluids. Doppler of the left lower extremity was negative for DVT. Sputum culture positive for Pseudomonas aeruginosa. Urine culture revealed no growth. Blood culture revealed no growth. Glucose 233. She remains on Symbicort, albuterol, Singulair. Remains on a prednisone taper. NicoDerm patch in place. Remains on aztreonam. Objective - Vital Signs Vital signs: Vital Signs Temp 97.5 F L 06/09/24 06:40 Pulse 89 06/09/24 06:40 Resp 17 06/09/24 06:40 BP 144/84 06/09/24 07:46 Pulse Ox 93 L 06/09/24 08:40 FiO2 50 05/31/24 00:39 Intake & Output 06/08/24 06/09/24 06/09/24 18:59 06:59 18:59 Weight 99 kg Other: Voiding Method Bedside Commode # Voids 6 - Exam GENERAL EXAM: Alert, 49-year-old female, laying in bed, on 4 L nasal cannula, in no apparent distress. HEAD: Normocephalic. EYES: Normal reaction of pupils, equal size. NOSE: Clear with pink turbinates. THROAT: No erythema or exudates. NECK: No masses, no JVD. CHEST: No chest wall deformity. LUNGS: Equal air entry with no crackles, wheeze, rhonchi or dullness. Diminished CVS: S1 and S2 normal with no audible murmur, regular rhythm. ABDOMEN: No hepatosplenomegaly, normal bowel sounds, no guarding or rigidity. SPINE: No scoliosis or deformity SKIN: No rashes CENTRAL NERVOUS SYSTEM: No focal deficits, tone is normal in all 4 extremities. EXTREMITIES: There is no peripheral edema. No clubbing, no cyanosis. Peripheral pulses are intact. - Labs CBC & Chem 7: 06/08/24 14:32 06/08/24 06:13 Labs: Abnormal Lab Results - Last 24 Hours (Table) 06/08/24 06/08/24 06/08/24 Range/Units 06:13 06:13 11:39 WBC 11.18 H (4.50-10.00) X 10*3/uL RBC 3.41 L (4.10-5.20) X 10*6/uL Hgb 9.2 L (12.0-15.0) g/dL Hct 30.1 L (37.2-46.3) % MCHC 30.6 L (32.0-37.0) g/dL RDW 14.8 H (11.5-14.5) % Immature Gran # 0.21 H (0.00-0.04) X 10*3/uL Neutrophils # 7.83 H (1.80-7.70) X 10*3/uL Chloride 95 L (96-109) mmol/L Carbon Dioxide 38.0 H (21.6-31.8) mmol/L BUN/Creatinine Ratio 35.50 H (12.00-20.00) Ratio Glucose 137 H (70-110) mg/dL POC Glucose (mg/dL) 240 H (70-110) mg/dL Calcium 7.6 L (8.7-10.3) mg/dL 06/08/24 06/08/24 06/08/24 Range/Units 14:32 17:04 20:48 WBC 13.4 H (4.50-10.00) X 10*3/uL RBC (4.10-5.20) X 10*6/uL Hgb 10.8 L (12.0-15.0) g/dL Hct (37.2-46.3) % MCHC 30.1 L (32.0-37.0) g/dL RDW (11.5-14.5) % Immature Gran # (0.00-0.04) X 10*3/uL Neutrophils # (1.80-7.70) X 10*3/uL Chloride (96-109) mmol/L Carbon Dioxide (21.6-31.8) mmol/L BUN/Creatinine Ratio (12.00-20.00) Ratio Glucose (70-110) mg/dL POC Glucose (mg/dL) 227 H 272 H (70-110) mg/dL Calcium (8.7-10.3) mg/dL 06/09/24 Range/Units 06:17 WBC (4.50-10.00) X 10*3/uL RBC (4.10-5.20) X 10*6/uL Hgb (12.0-15.0) g/dL Hct (37.2-46.3) % MCHC (32.0-37.0) g/dL RDW (11.5-14.5) % Immature Gran # (0.00-0.04) X 10*3/uL Neutrophils # (1.80-7.70) X 10*3/uL Chloride (96-109) mmol/L Carbon Dioxide (21.6-31.8) mmol/L BUN/Creatinine Ratio (12.00-20.00) Ratio Glucose (70-110) mg/dL POC Glucose (mg/dL) 233 H (70-110) mg/dL Calcium (8.7-10.3) mg/dL Assessment and Plan Assessment: Mild exacerbation of COPD secondary to Pseudomonas aeruginosa, suspect colonized. Procalcitonin 0.02. CT scan of the chest revealed areas of linear atelectasis but no acute pulmonary abnormalities Chronic pain syndrome secondary to fibromyalgia, requested more pain medication Epigastric pain, EGD 06/04/2024 revealed mild gastritis, esophagitis, hiatal hernia Recent discharge May 28, 2024 following acute on chronic hypoxic respiratory failure secondary COPD exacerbation, has been oxygen dependent at 2 L/min nasal cannula on outpatient basis Chronic tobacco dependence Recent COVID-19 infection, no evidence of pneumonia, D-dimer is low, no previous vaccination, no previous infections Left upper lobe atelectasis, noted on a previous CAT scan of the chest that was done on 09/23/2022. Fibromyalgia Hypertension Hyperlipidemia History of seizure disorder History of CVA Irritable bowel disease Chronic pancreatic insufficiency/fibrosis Migraines Nephrolithiasis Rheumatoid arthritis Plan: The patient was seen and evaluated Labs and medications reviewed Doppler of the left lower extremity negative for DVT Antibiotics per ID service Continued on bronchodilators, prednisone taper Cleared for discharge from the pulmonary standpoint Follow-up with her usual link trainer operator in 1 week I have personally seen and examined the patient, performed the documentation and the assessment and plan as written. Number of minutes spent on the visit: 10 Dictation was produced using [employer] dictation software. Please excuse any grammatical, word or spelling errors.
--- NOTE | 2024-06-09 10:59 | P.PN ---
Subjective Progress Note Date: 06/09/24 Principal diagnosis: GI bleed Patient doing well from an abdominal standpoint today. Hemoglobin was 9.2 yesterday afternoon which was a drop for her. Repeat done right away showed it was 10.8. No rectal bleeding per patient. Denies abdominal pain. Complaining of right foot pain. Objective - Vital Signs Vital signs: Vital Signs Temp 97.5 F L 06/09/24 06:40 Pulse 89 06/09/24 06:40 Resp 17 06/09/24 06:40 BP 144/84 06/09/24 07:46 Pulse Ox 93 L 06/09/24 08:40 FiO2 50 05/31/24 00:39 Intake & Output 06/08/24 06/09/24 06/09/24 18:59 06:59 18:59 Weight 99 kg Other: Voiding Method Bedside Commode # Voids 6 - Exam Abdomen: Soft, nontender, nondistended - Labs CBC & Chem 7: 06/08/24 14:32 06/08/24 06:13 Labs: Abnormal Lab Results - Last 24 Hours (Table) 06/08/24 06/08/24 06/08/24 Range/Units 06:13 06:13 11:39 WBC 11.18 H (4.50-10.00) X 10*3/uL RBC 3.41 L (4.10-5.20) X 10*6/uL Hgb 9.2 L (12.0-15.0) g/dL Hct 30.1 L (37.2-46.3) % MCHC 30.6 L (32.0-37.0) g/dL RDW 14.8 H (11.5-14.5) % Immature Gran # 0.21 H (0.00-0.04) X 10*3/uL Neutrophils # 7.83 H (1.80-7.70) X 10*3/uL Chloride 95 L (96-109) mmol/L Carbon Dioxide 38.0 H (21.6-31.8) mmol/L BUN/Creatinine Ratio 35.50 H (12.00-20.00) Ratio Glucose 137 H (70-110) mg/dL POC Glucose (mg/dL) 240 H (70-110) mg/dL Calcium 7.6 L (8.7-10.3) mg/dL 06/08/24 06/08/24 06/08/24 Range/Units 14:32 17:04 20:48 WBC 13.4 H (4.50-10.00) X 10*3/uL RBC (4.10-5.20) X 10*6/uL Hgb 10.8 L (12.0-15.0) g/dL Hct (37.2-46.3) % MCHC 30.1 L (32.0-37.0) g/dL RDW (11.5-14.5) % Immature Gran # (0.00-0.04) X 10*3/uL Neutrophils # (1.80-7.70) X 10*3/uL Chloride (96-109) mmol/L Carbon Dioxide (21.6-31.8) mmol/L BUN/Creatinine Ratio (12.00-20.00) Ratio Glucose (70-110) mg/dL POC Glucose (mg/dL) 227 H 272 H (70-110) mg/dL Calcium (8.7-10.3) mg/dL 06/09/24 Range/Units 06:17 WBC (4.50-10.00) X 10*3/uL RBC (4.10-5.20) X 10*6/uL Hgb (12.0-15.0) g/dL Hct (37.2-46.3) % MCHC (32.0-37.0) g/dL RDW (11.5-14.5) % Immature Gran # (0.00-0.04) X 10*3/uL Neutrophils # (1.80-7.70) X 10*3/uL Chloride (96-109) mmol/L Carbon Dioxide (21.6-31.8) mmol/L BUN/Creatinine Ratio (12.00-20.00) Ratio Glucose (70-110) mg/dL POC Glucose (mg/dL) 233 H (70-110) mg/dL Calcium (8.7-10.3) mg/dL Assessment and Plan (1) Abdominal pain Narrative/Plan: 49-year-old female with abdominal pain and GI bleed. Symptoms have improved. Tolerating diet. May discharge from our point of view. Current Visit: No Status: Acute Code(s): R10.9 - UNSPECIFIED ABDOMINAL PAIN SNOMED Code(s): 03885072
[2024-06-09 11:53] LABS: Glucose,Whole Blood 230 mg/dL (70-110)
--- NOTE | 2024-06-09 12:08 | P.PN ---
Subjective Progress Note Date: 06/08/24 49-year-old female patient, just discharged home on May 28, 2024 following a COPD exacerbation. She presented here again yesterday May 30, 2024 with complaints of increasing shortness of breath cough and congestion. She also has complaints of generalized pain and is asking for more pain medication. States she has now quit smoking. Chest x-ray reveals no acute cardiopulmonary process. White count 16.7. Hemoglobin 13.3. Platelets 227. Sodium 136. Potassium 5.2. Bicarb 38. BUN 49. Creatinine 0.74. Glucose 191. proBNP 95. She is seen in consultation in the emergency department. Sitting up on the stretcher. Awake and alert in no acute distress. Lung sounds are clear. Diminished. -- Patient seen and evaluated in room with family at bedside; reports severe pain both lower extremities; currently on Dilaudid and requesting pain medication be increased -- Patient does have significant swelling of the right lower extremity; will order venous ultrasound to rule out DVT -No change in pain medications needed Objective - Vital Signs Vital signs: Vital Signs Temp 98.0 F 06/08/24 07:30 Pulse 83 06/08/24 07:30 Resp 18 06/08/24 07:30 BP 100/57 06/08/24 07:30 Pulse Ox 92 L 06/08/24 08:02 FiO2 50 05/31/24 00:39 Intake & Output 06/07/24 06/08/24 06/08/24 18:59 06:59 18:59 Intake Total 100 Balance 100 Weight 96 kg 94.5 kg Intake: IV 100 Other: Voiding Method Toilet # Voids 5 5 # Bowel Movements 3 - Exam GENERAL EXAM: Alert, 49-year-old female, sitting up in bed, on 6 L nasal cannula, in no apparent distress. HEAD: Normocephalic. EYES: Normal reaction of pupils, equal size. NECK: No masses, no JVD. CHEST: No chest wall deformity. LUNGS: Equal air entry with no crackles, wheeze, rhonchi or dullness. Diminished CVS: S1 and S2 normal with no audible murmur, regular rhythm. ABDOMEN: No hepatosplenomegaly, normal bowel sounds, no guarding or rigidity. SKIN: No rashes CENTRAL NERVOUS SYSTEM: No focal deficits, tone is normal in all 4 extremities. EXTREMITIES: There is no peripheral edema. No clubbing, no cyanosis. Peripheral pulses are intact. - Labs CBC & Chem 7: 06/08/24 14:32 06/08/24 06:13 Labs: Abnormal Lab Results - Last 24 Hours (Table) 06/07/24 06/07/24 06/08/24 Range/Units 16:22 20:29 06:13 Chloride 95 L (96-109) mmol/L Carbon Dioxide 38.0 H (21.6-31.8) mmol/L BUN/Creatinine Ratio 35.50 H (12.00-20.00) Ratio Glucose 137 H (70-110) mg/dL POC Glucose (mg/dL) 321 H 158 H (70-110) mg/dL Calcium 7.6 L (8.7-10.3) mg/dL 06/08/24 Range/Units 06:23 Chloride (96-109) mmol/L Carbon Dioxide (21.6-31.8) mmol/L BUN/Creatinine Ratio (12.00-20.00) Ratio Glucose (70-110) mg/dL POC Glucose (mg/dL) 139 H (70-110) mg/dL Calcium (8.7-10.3) mg/dL Assessment and Plan Assessment: Chronic obstructive pulmonary disease, acute exacerbation with acute purulent tracheobronchitis Severe right loin pain and renal angle tenderness with negative CT Elevated plasma lactic acid, present on admission, improved History of congestive heart failure, not in exacerbation Hypertension History of recent COVID-19 on last admission History of rheumatoid arthritis with history of pancreatic fibrosis Obesity with a BMI of 38.8 GI prophylaxis DVT prophylaxis Full code Plan: Recommend to continue with current medications and management with pulmonary, infectious disease, general surgery following. Patient is status post EGD with acute gastritis and some inflammation noted. Biopsies were obtained and pending. Patient resumed on diet and tolerating Continue [id number] DuoNeb treatments along with IV steroids with pulmonary following. Wean FiO2 as tolerated, patient chronically wears oxygen outpatient Encouraged increased activity as tolerated Blood sugars have been elevated and will continue monitoring with Accu-Cheks before meals and at bedtime and sliding scale. Will continue long-acting twice daily Will discuss with other consultations regarding possible discharge planning in the next 48 hours. Per infectious disease patient will require 3 days of aztreonam prior to discharge. Due to multiple complex medical issues, overall prognosis is guarded Possible discharge in the next 24 hours.
[2024-06-09 12:57] LABS: Basophils # (A) 0.04 X 10*3/uL (0.00-0.10); Basophils % (A) 0.3 %; Eosinophils # (A) 0.08 X 10*3/uL (0.04-0.35); Eosinophils % (A) 0.5 %; HCT 35.2 % (37.2-46.3); HGB 10.5 g/dL (12.0-15.0); Lymphocytes # (A) 2.71 X 10*3/uL (0.90-5.00); Lymphocytes % (A) 18.1 %; MCH 27.2 pg (27.0-32.0); MCHC 29.8 g/dL (32.0-37.0); MCV 91.2 FL (80.0-97.0); Mean Platelet Volume 9.5 FL (9.5-12.2); Monocytes # (A) 0.71 X 10*3/uL (0.20-1.00); Monocytes % (A) 4.7 %; NRBC Per 100 WBC 0 X 10*3/uL (0.00-0.01); Neutrophils # (A) 11.23 X 10*3/uL (1.80-7.70); Neutrophils % (A) 74.9 %; Platelet Count 206 X 10*3/uL (140-440); RBC 3.86 X 10*6/uL (4.10-5.20); RDW 14.9 % (11.5-14.5)
[2024-06-09 13:18] LABS: Blood Urea Nitrogen 14.7 mg/dL (9.0-27.0); Calcium 8.6 mg/dL (8.7-10.3); Chloride 93 mmol/L (96-109); Glucose 150 mg/dL (70-110); Potassium 4.8 mmol/L (3.5-5.5); Sodium 141 mmol/L (135-145)
--- NOTE | 2024-06-09 13:22 | P.PN ---
Subjective Progress Note Date: 06/09/24 Principal diagnosis: Reason for follow-up is Pseudomonas tracheobronchitis multiple antibiotic allergies Patient is a 49-year-old female with a past medical history sign ificant for fibromyalgia hypertension COPD CVA TIA seizure disorder and syncope with recurrent admission to the hospital for shortness of breath and this patient has been diagnosed with a COPD exacerbation with a purulent tracheobronchitis sputum culture did grew Pseudomonas aeruginosa patient did h ave multiple antibiotic allergies prompting this consultation. On today's evaluation that is 06/09/2024,the patient remains to be afebrile, patient is on 2 L nasal cannula supplemental oxygen and denies any worsening shortness of breath no chest pain and cough is decreased intensity.Patient denies having any nausea or vomiting, no abdominal pain and no diarrhea. Patient white count is 15,000, creatinine 0.5 Objective - Vital Signs Vital signs: Vital Signs Temp 97.5 F L 06/09/24 06:40 Pulse 89 06/09/24 06:40 Resp 17 06/09/24 06:40 BP 144/84 06/09/24 07:46 Pulse Ox 93 L 06/09/24 08:40 FiO2 50 05/31/24 00:39 Intake & Output 06/08/24 06/09/24 06/09/24 18:59 06:59 18:59 Weight 99 kg Other: Voiding Method Bedside Commode # Voids 6 - Exam GENERAL DESCRIPTION: Middle-age female up in bed in no distress RESPIRATORY SYSTEM: Unlabored breathing , decreased intensity breath sound no wheeze HEART: S1 S2 regular rate and rhythm , ABDOMEN: Soft , no tenderness EXTREMITIES: More swelling to the right leg than the left but no redness - Labs CBC & Chem 7: 06/09/24 07:50 06/09/24 07:50 Labs: Abnormal Lab Results - Last 24 Hours (Table) 06/08/24 06/08/24 06/08/24 Range/Units 06:13 11:39 14:32 WBC 11.18 H 13.4 H (4.50-10.00) X 10*3/uL RBC 3.41 L (4.10-5.20) X 10*6/uL Hgb 9.2 L 10.8 L (12.0-15.0) g/dL Hct 30.1 L (37.2-46.3) % MCHC 30.6 L 30.1 L (32.0-37.0) g/dL RDW 14.8 H (11.5-14.5) % Immature Gran # 0.21 H (0.00-0.04) X 10*3/uL Neutrophils # 7.83 H (1.80-7.70) X 10*3/uL POC Glucose (mg/dL) 240 H (70-110) mg/dL 06/08/24 06/08/24 06/09/24 Range/Units 17:04 20:48 06:17 WBC (4.50-10.00) X 10*3/uL RBC (4.10-5.20) X 10*6/uL Hgb (12.0-15.0) g/dL Hct (37.2-46.3) % MCHC (32.0-37.0) g/dL RDW (11.5-14.5) % Immature Gran # (0.00-0.04) X 10*3/uL Neutrophils # (1.80-7.70) X 10*3/uL POC Glucose (mg/dL) 227 H 272 H 233 H (70-110) mg/dL Assessment and Plan (1) Pseudomonas aeruginosa infection Status: Acute Code(s): A49.8 - OTHER BACTERIAL INFECTIONS OF UNSPECIFIED SITE SNOMED Code(s): 07300970 (2) Allergy to multiple antibiotics Status: Acute Code(s): Z88.1 - ALLERGY STATUS TO OTHER ANTIBIOTIC AGENTS SNOMED Code(s): 177077028 (3) Tracheobronchitis Status: Acute Code(s): J40 - BRONCHITIS, NOT SPECIFIED ACUTE OR CHRONIC SNOMED Code(s): 81551827 Plan: 1patient presented to hospital with increasing shortness of breath and this patient also bringing up some purulent sputum concerning for purulent tracheobronchitis with COPD exacerbation as initial chest x-ray did not show any evidence of acute infiltrate however the sputum is now growing Pseudomonas aeruginosa and the patient did have multiple antibiotic allergies we will obtain a CT of the chest to make sure no evidence of any pneumonia and however this will need to treat this positive sputum culture. 2patient with multiple antibiotic ALLERGIES that would limit the number of antibiotic safe to use. 3patient did have CT of the chest did show some atelectasis but no consolidation and repeat procalcitonin is low more likely dealing with purulent tracheobronchitis than pneumonia 4 patient mention improvement in her symptoms and has tolerated Azactam and has received adequate dose of Azactam for purulent tracheobronchitis can be safely discontinued, discussed with the admitting physician 5patient have significant swelling of the right leg compared to the left leg Doppler negative for DVT however has been reported on evidence that has been mentioned left though per discussion with the nurse. Actually right leg Doppler was done Dictation was produced using [employer] dictation software. please excuse any grammatical, word or spelling errors. Time with Patient: Less than 30
--- NOTE | 2024-06-09 16:25 | P.DS ---
Providers Date of admission: 05/30/24 22:28 Expected date of discharge: 06/09/24 Attending physician: Shaneka Anaya Consults: 05/30/24 22:27 Consult Physician Routine Consulting Provider: Deyanira Hooper Consult Reason/Comments: COPD Do you want consulting provider notified?: Yes 06/01/24 15:18 Consult Physician Routine Consulting Provider: Patrick Paige Consult Reason/Comments: abd pain, ruq pain Do you want consulting provider notified?: Yes 06/03/24 11:12 Consult Physician Routine Consulting Provider: Anisha Amanda Consult Reason/Comments: Pseudomonas, multiple allergies Do you want consulting provider notified?: Yes Primary care physician: [facility] Course: 49-year-old female who was recently admitted with increasing shortness of breath with COPD exacerbation also noted to have significant back pain as well as mid epigastric abdominal pain being closely monitored with pulmonary and general surgery following. Patient is currently n.p.o. scheduled to undergo EGD for further evaluation. Antibiotics have been discontinued by pulmonary and infectious diseases following as well. Patient is continued on IV steroids 60 mg every 6 along with [id number] DuoNebs and will continue. Encouraged increase activity as tolerated. Will await EGD report. Blood sugars have been elevated and will also continue with sliding scale and also add long-acting. 06/05/2024 Patient is seen in follow-up with pulmonary along with general surgery and infectious disease following. Procalcitonin was low although concerns for significant COPD exacerbation with tracheobronchitis. Patient is maintained on aztreonam with infectious disease following and will require 3 days of this prior to discharge. Patient is afebrile and reports chest pain with cough along with continued shortness of breath although sitting up in the bed on room air and able to have conversation. Patient has been up and to the bathroom and encouraged the patient to get up and walk more frequently. Per nursing staff, there is some suspicion of patient taking home medications from her purse other than what is prescribed. UDS is ordered and pending. Will discuss further with infectious disease regarding discharge planning. -- Patient seen and evaluated in room with family at bedside; reports severe pain both lower extremities; currently on Dilaudid and requesting pain medication be increased -- Patient does have significant swelling of the right lower extremity; will order venous ultrasound to rule out DVT -No change in pain medications needed Assessment: Chronic obstructive pulmonary disease, acute exacerbation with acute purulent tracheobronchitis Severe right loin pain and renal angle tenderness with negative CT Elevated plasma lactic acid, present on admission, improved History of congestive heart failure, not in exacerbation Hypertension History of recent COVID-19 on last admission History of rheumatoid arthritis with history of pancreatic fibrosis Obesity with a BMI of 38.8 GI prophylaxis DVT prophylaxis Full code Plan: Recommend to continue with current medications and management with pulmonary, infectious disease, general surgery following. Patient is status post EGD with acute gastritis and some inflammation noted. Biopsies were obtained and pending. Patient resumed on diet and tolerating Continue [id number] DuoNeb treatments along with IV steroids with pulmonary following. Wean FiO2 as tolerated, patient chronically wears oxygen outpatient Encouraged increased activity as tolerated Blood sugars have been elevated and will continue monitoring with Accu-Cheks before meals and at bedtime and sliding scale. Will continue long-acting twice daily Will discuss with other consultations regarding possible discharge planning in the next 48 hours. Per infectious disease patient will require 3 days of aztreonam prior to discharge. Due to multiple complex medical issues, overall prognosis is guarded Patient is stable for discharge Patient Condition at Discharge: Stable Plan - Discharge Summary New Discharge Prescriptions: New Tiotropium 2.5 Mcg/Puff [Spiriva Respimat 2.5 Mcg] 2 puff INHALATION RT-DAILY 30 Days #1 each Continue Spironolactone [Aldactone] 25 mg PO DAILY carvediloL [Coreg] 25 mg PO BID Citalopram Hydrobromide [CeleXA] 60 mg PO DAILY Albuterol Inhaler [Ventolin Hfa Inhaler] 2 puff INHALATION RT-QID PRN PRN Reason: Shortness Of Breath Rosuvastatin Calcium [Crestor] 5 mg PO DAILY Montelukast [Singulair] 10 mg PO HS PRN PRN Reason: Allergy Symptoms Xanax(Unknown Dose) 1 tab PO DAILY PRN PRN Reason: Anxiety Ipratropium-Albuterol Nebulize [Duoneb 0.5 mg-3 mg/3 ml Soln] 3 ml INHALATION RT-Q4H #120 each Budesonide-Formot 160-4.5 Mcg [Symbicort 160-4.5 Mcg Inhaler] 2 puff INHALATION RT-BID #1 each Nicotine 14Mg/24Hr Patch [Habitrol] 1 patch TRANSDERM DAILY PRN PRN Reason: Nicotine Cravings oxyCODONE-APAP 10-325MG [Percocet 10-325 mg] 1 tab PO TID rOPINIRole HCL [Requip] 0.25 mg PO HS Famotidine 20 mg PO BID traZODone HCL [Desyrel] 50 mg PO HS Losartan [Cozaar] 100 mg PO DAILY #30 tab Changed Pantoprazole [Protonix] 40 mg PO BID 30 Days #60 tab Discharge Medication List Spironolactone [Aldactone] 25 mg PO DAILY 02/05/17 [History] carvediloL [Coreg] 25 mg PO BID 03/26/21 [History] oxyCODONE-APAP 10-325MG [Percocet 10-325 mg] 1 tab PO TID 03/16/22 [History] Citalopram Hydrobromide [CeleXA] 60 mg PO DAILY 01/27/23 [History] Albuterol Inhaler [Ventolin Hfa Inhaler] 2 puff INHALATION RT-QID PRN 04/02/24 [History] Famotidine 20 mg PO BID 04/02/24 [History] Montelukast [Singulair] 10 mg PO HS PRN 04/02/24 [History] Rosuvastatin Calcium [Crestor] 5 mg PO DAILY 04/02/24 [History] Xanax(Unknown Dose) 1 tab PO DAILY PRN 04/02/24 [History] rOPINIRole HCL [Requip] 0.25 mg PO HS 04/02/24 [History] traZODone HCL [Desyrel] 50 mg PO HS 04/02/24 [History] Budesonide-Formot 160-4.5 Mcg [Symbicort 160-4.5 Mcg Inhaler] 2 puff INHALATION RT-BID #1 each 04/06/24 [Rx] Ipratropium-Albuterol Nebulize [Duoneb 0.5 mg-3 mg/3 ml Soln] 3 ml INHALATION RT-Q4H #120 each 04/06/24 [Rx] Losartan [Cozaar] 100 mg PO DAILY #30 tab 04/06/24 [Rx] Nicotine 14Mg/24Hr Patch [Habitrol] 1 patch TRANSDERM DAILY PRN 04/22/24 [History] Pantoprazole [Protonix] 40 mg PO BID 30 Days #60 tab 06/09/24 [Rx] Tiotropium 2.5 Mcg/Puff [Spiriva Respimat 2.5 Mcg] 2 puff INHALATION RT-DAILY 30 Days #1 each 06/09/24 [Rx] Follow up Appointment(s)/Referral(s): Kemi Guevara MD [Primary Care Provider] - 1-2 days Patient Instructions/Handouts: COPD (Chronic Obstructive Pulmonary Disease) (DC) Activity/Diet/Wound Care/Special Instructions: PERSONAL BELONGINGS IN 4S LOCKER #1. TO BE RETURNED TO PT UPON D/C Discharge Disposition: HOME SELF-CARE
== END 2024-06-09 13:09 | disposition home or self-care (01) | DRG 189 ==
LOC: EC 21:36 → 3SCARD 22:28 → 4SSUR 05-31 10:09
PROVIDERS: ADMIT Hospitalist; ATTEND Hospitalist
PROC: 5A09357 Assistance with Respiratory Ventilation, Less than 24 Consecutive Hours, Continuous Positive Airway Pressure (ICD-10-PCS; principal; 2024-05-30)
PROC: 0DB78ZX Excision of Stomach, Pylorus, Via Natural or Artificial Opening Endoscopic, Diagnostic (ICD-10-PCS; 2024-05-30)
PROC: 0DB38ZX Excision of Lower Esophagus, Via Natural or Artificial Opening Endoscopic, Diagnostic (ICD-10-PCS; 2024-05-30)
PROC: 0DJD8ZZ Inspection of Lower Intestinal Tract, Via Natural or Artificial Opening Endoscopic (ICD-10-PCS; 2024-06-07)
PROC: 05HC33Z Insertion of Infusion Device into Left Basilic Vein, Percutaneous Approach (ICD-10-PCS; 2024-06-07)
DX: J96.21 Acute and chronic respiratory failure with hypoxia (principal); K20.91 Esophagitis, unspecified with bleeding; E87.20 Acidosis, unspecified; J44.0 Chronic obstructive pulmonary disease with (acute) lower respiratory infection; J44.1 Chronic obstructive pulmonary disease with (acute) exacerbation; Z68.41 Body mass index [BMI] 40.0-44.9, adult; J98.11 Atelectasis; B96.5 Pseudomonas (aeruginosa) (mallei) (pseudomallei) as the cause of diseases classified elsewhere; I11.0 Hypertensive heart disease with heart failure; I50.9 Heart failure, unspecified; Z99.81 Dependence on supplemental oxygen; M06.9 Rheumatoid arthritis, unspecified; F31.9 Bipolar disorder, unspecified; F60.3 Borderline personality disorder; E66.9 Obesity, unspecified; J20.9 Acute bronchitis, unspecified; G89.4 Chronic pain syndrome; K86.89 Other specified diseases of pancreas; M79.7 Fibromyalgia; K58.9 Irritable bowel syndrome, unspecified; K44.9 Diaphragmatic hernia without obstruction or gangrene; M54.9 Dorsalgia, unspecified; K64.8 Other hemorrhoids; K64.4 Residual hemorrhoidal skin tags; K57.30 Diverticulosis of large intestine without perforation or abscess without bleeding; K29.00 Acute gastritis without bleeding; M79.671 Pain in right foot; K08.89 Other specified disorders of teeth and supporting structures; E78.5 Hyperlipidemia, unspecified; F90.9 Attention-deficit hyperactivity disorder, unspecified type; F41.9 Anxiety disorder, unspecified; F17.210 Nicotine dependence, cigarettes, uncomplicated; Z86.16 Personal history of COVID-19; Z79.51 Long term (current) use of inhaled steroids; Z79.891 Long term (current) use of opiate analgesic; Z79.899 Other long term (current) drug therapy; Z86.73 Personal history of transient ischemic attack (TIA), and cerebral infarction without residual deficits; Z86.14 Personal history of Methicillin resistant Staphylococcus aureus infection; Z88.0 Allergy status to penicillin; Z88.2 Allergy status to sulfonamides; Z88.8 Allergy status to other drugs, medicaments and biological substances; Z88.6 Allergy status to analgesic agent; Z88.1 Allergy status to other antibiotic agents; Z91.041 Radiographic dye allergy status
CPT/HCPCS: 36410; 36415; 43239; 45378; 71045; 71250; 74176; 76937; 80048; 80053; 80306; 81003; 82803; 83036; 83605; 83735; 83880; 84145; 84484; 85025; 85027; 85379; 85610; 85730; 87040; 87070; 87077; 87086; 87186; 87205; 88305; 93005; 94640; 94660; 94760; 96365; 96375; 96376; 99291

== ENCOUNTER 2024-07-15 13:19 | Observation (INO) | payer MEDICARE ==
--- NOTE | 2024-07-15 14:18 | ED ---
General Adult HPI - General Chief complaint: Shortness of Breath Stated complaint: SOB Time Seen by Provider: 07/15/24 13:40 Source: patient Mode of arrival: EMS Limitations: no limitations - History of Present Illness Initial comments: Dictation was produced using [employer] dictation software. please excuse any grammatical, word or spelling errors. Chief Complaint: 49-year-old female with multiple comorbidities presents to the emergency department for chest pain shortness of breath History of Present Illness: Patient is a 49-year-old female she has multiple comorbidities including heart failure, COPD fibromyalgia and rheumatoid arthritis states for the last couple days she has been having shortness of breath and chest pain. States that it sharp and dull at the same time. She does feel some pain to her right lower chest feels worse when she takes a deep breath. Patient [place] any history of coronary artery disease. She does have a history of heart failure. She thinks that it is her fibromyalgia and/or rheumatoid arthritis acting up. Denies any fever, chills or night sweats. The ROS documented in this emergency department record has been reviewed and confirmed by me. Those systems with pertinent positive or negative responses have been documented in the HPI. All other systems are other negative and/or noncontributory. - Related Data Home Medications Medication Instructions Recorded Confirmed Spironolactone [Aldactone] 25 mg PO DAILY 02/05/17 05/31/24 carvediloL [Coreg] 25 mg PO BID 03/26/21 05/31/24 oxyCODONE-APAP 10-325MG [Percocet 1 tab PO TID 03/16/22 05/31/24 10-325 mg] Citalopram Hydrobromide [CeleXA] 60 mg PO DAILY 01/27/23 05/31/24 Albuterol Inhaler [Ventolin Hfa 2 puff INHALATION RT-QID PRN 04/02/24 05/31/24 Inhaler] Famotidine 20 mg PO BID 04/02/24 05/31/24 Montelukast [Singulair] 10 mg PO HS PRN 04/02/24 05/31/24 Rosuvastatin Calcium [Crestor] 5 mg PO DAILY 04/02/24 05/31/24 Xanax(Unknown Dose) 1 tab PO DAILY PRN 04/02/24 05/31/24 rOPINIRole HCL [Requip] 0.25 mg PO HS 04/02/24 05/31/24 traZODone HCL [Desyrel] 50 mg PO HS 04/02/24 05/31/24 Nicotine 14Mg/24Hr Patch [Habitrol] 1 patch TRANSDERM DAILY PRN 04/22/24 05/31/24 Previous Rx's Medication Instructions Recorded Budesonide-Formot 160-4.5 Mcg 2 puff INHALATION RT-BID #1 each 04/06/24 [Symbicort 160-4.5 Mcg Inhaler] Ipratropium-Albuterol Nebulize 3 ml INHALATION RT-Q4H #120 each 04/06/24 [Duoneb 0.5 mg-3 mg/3 ml Soln] Losartan [Cozaar] 100 mg PO DAILY #30 tab 04/06/24 Pantoprazole [Protonix] 40 mg PO BID 30 Days #60 tab 06/09/24 Tiotropium 2.5 Mcg/Puff [Spiriva 2 puff INHALATION RT-DAILY 30 Days 06/09/24 Respimat 2.5 Mcg] #1 each Allergies Allergy/AdvReac Type Severity Reaction Status Date / Time adhesive Allergy Rash/Hives Verified 07/15/24 13:38 amoxicillin Allergy Anaphylaxis Verified 07/15/24 13:38 azithromycin [From Zithromax] Allergy Anaphylaxis Verified 07/15/24 13:38 cephalexin monohydrate Allergy Anaphylaxis Verified 07/15/24 13:38 [From Keflex] ciprofloxacin Allergy Anaphylaxis Verified 07/15/24 13:38 clindamycin Allergy Anaphylaxis Verified 07/15/24 13:38 Iodinated Contrast Media Allergy Anaphylaxis Verified 07/15/24 13:38 [Iodinated Contrast- Oral and IV Dye] ketorolac [From Toradol] Allergy Anaphylaxis Verified 07/15/24 13:38 levofloxacin [From Levaquin] Allergy Rash/Hives Verified 07/15/24 13:38 naproxen Allergy Anaphylaxis Verified 07/15/24 13:38 NSAIDS (Non-Steroidal Allergy Rash/Hives Verified 07/15/24 13:38 Anti-Inflamma orphenadrine [From Norflex] Allergy Anaphylaxis Verified 07/15/24 13:38 pineapple Allergy Anaphylaxis Verified 07/15/24 13:38 shellfish derived Allergy Anaphylaxis Verified 07/15/24 13:38 Sulfa (Sulfonamide Allergy Anaphylaxis Verified 07/15/24 13:38 Antibiotics) sulfamethoxazole Allergy Anaphylaxis Verified 07/15/24 13:38 [From Bactrim] tramadol Allergy Anaphylaxis Verified 07/15/24 13:38 trimethoprim [From Bactrim] Allergy Anaphylaxis Verified 07/15/24 13:38 Review of Systems ROS Statement: Those systems with pertinent positive or pertinent negative responses have been documented in the HPI. ROS Other: All systems not noted in ROS Statement are negative. 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 IBS, cellulitis of the chin, CVA about 1 year ago(no residual) History of Any Multi-Drug Resistant Organisms: MRSA Date of last positivie culture/infection: 07/2016 MDRO Source:: Chin Past Surgical History: Appendectomy, Section, Cholecystectomy, Hysterectomy, Tubal Ligation Additional Past Surgical History / Comment(s): oral surgery . Pancreas biopsy May 2015. Past Anesthesia/Blood Transfusion Reactions: No Reported Reaction Past Psychological History: ADD/ADHD, Anxiety, Bipolar, Depression Smoking Status: Former smoker Past Alcohol Use History: None Reported Past Drug Use History: Marijuana - Past Family History Father History Unknown: Yes Family Medical History: No Reported History Additional Family Medical History / Comment(s): Pt adopted Mother History Unknown: Yes Additional Family Medical History / Comment(s): Pt adopted General Exam - General Exam Comments Initial Comments: PHYSICAL EXAM: General Impression: Alert and oriented x3, not in acute distress HEENT: Normocephalic atraumatic, extra-ocular movements intact, pupils equal and reactive to light bilaterally, mucous membranes moist. Cardiovascular: Heart regular rate and rhythm Chest: Able to complete full sentences, no retractions, no tachypnea Abdomen: abdomen soft, non-tender, non-distended, no organomegaly Musculoskeletal: Pulses present and equal in all extremities, no peripheral edema Motor: no focal deficits noted Neurological: CN II-XII grossly intact, no focal motor or sensory deficits noted Skin: Intact with no visualized rashes Psych: Normal affect and mood Limitations: no limitations Course Vital Signs 07/15/24 13:36 Temperature 98.8 F Pulse Rate 78 Respiratory 22 Rate Blood Pressure 156/98 O2 Sat by Pulse 94 L Oximetry EKG Findings - EKG Comments: EKG Findings:: My EKG interpretation: Ventricular rate 70, sinus rhythm,. 135, QRS 85, QTc 439. No MT prolongation, no QTC prolongation, no ST or T-wave changes noted.Overall, this EKG is unremarkable Medical Decision Making - Medical Decision Making Was pt. sent in by a medical professional or institution (, PA, [employer], urgent care, hospital, or [place] health care facility...) When possible be specific @ -No Did you speak to anyone other than the patient for history (EMS, parent, family, police, friend...)? What history was obtained from this source @ -No Did you review nursing and triage notes (agree or disagree)? Why? @ -I reviewed and agree with nursing and triage notes Were old charts reviewed (outside hosp., previous admission, EMS record, old EKG, old radiological studies, urgent care reports/EKG's, [place] health care facility records)? Report findings @ -No old charts were reviewed Differential Diagnosis (chest pain, altered mental status, abdominal pain women, abdominal pain men, vaginal bleeding, musculoskeletal, weakness, fever, dyspnea, syncope, headache, dizziness, GI bleed, back pain, seizure, CVA, palpatations, mental health)? @ -Differential Chest Pain: Stable Angina, Unstable Angina, STEMI, NSTEMI Aortic Dissection, Pneumothorax, Musculoskeletal, Esophageal Spasm GERD, Cholecystitis, Pancreatitis, Zoster, this is not meant to be an all-inclusive list. EKG interpreted by me (3pts min.). @ - X-rays interpreted by me (1pt min.). @ -Chest x-ray shows no acute processes CT interpreted by me (1pt min.). @ -None done U/S interpreted by me (1pt. min.). @ -None done What testing was considered but not performed or refused? (CT, X-rays, U/S, labs)? Why? @ -None What meds were considered but not given or refused? Why? @ -None Was smoking cessation discussed for >3mins.? @ -No Were there social determinants of health that impacted care today? How? (Homelessness, low income, unemployed, alcoholism, drug addiction, transportation, low edu. Level, literacy, decrease access to med. care, penitentiary, rehab)? @ -No Was there de-escalation of care discussed even if they declined (Discuss DNR or withdrawal of care, Hospice)? DNR status @ -No What co-morbidities impacted this encounter? (DM, HTN, Smoking, COPD, CAD, Cancer, CVA, ARF, Chemo, Hep., AIDS, mental health diagnosis, sleep apnea, morbid obesity)? @ -Fibromyalgia, Heart failure and rheumatoid arthritis Was patient admitted / discharged? Hospital course, mention meds given and route, prescriptions, significant lab abnormalities, going to OR and other pertinent info. @ -49-year-old female presents emergency department atypical chest pain typical features. Laboratory evaluation obtained. CBC, coag panel metabolic panel obtained. Magnesium level 1.2. Troponins negative. BNP is 1190. Viral testing is negative. Chest x-ray is nonacute. The patient has elevated heart score. She will be admitted for sore troponins and cardiology consultation. Case discussed with hospitalist for admission Did you discuss the management of the patient with other professionals (professionals i.e. , PA, [employer], lab, RT, psych nurse, criminal justice social worker, dye colorist formulator, teacher, staff readiness officer, bilingual case manager)? Give summary @ -No Was critical care preformed (if so, how long)? @ -No Undiagnosed new problem with uncertain prognosis? @ -No Drug Therapy requiring intensive monitoring for toxicity (Heparin, Nitro, Insulin, Cardizem)? @ -No Were any procedures done? @ -No Diagnosis/symptom? Acute, or Chronic, or Acute on Chronic? Uncomplicated (without systemic symptoms) or Complicated (systemic symptoms)? @ -Chest pain Side effects of treatment? @ -No Exacerbation, Progression, or Severe Exacerbation? @ -No Poses a threat to life or bodily function? How? (Chest pain, [place], [place], pneumonia, PE, COPD, DKA, ARF, appy, cholecystitis, CVA, Diverticulitis, Homicidal, Suicidal, threat to staff... and all critical care pts) @ -yes - Lab Data Result diagrams: 07/15/24 14:37 07/15/24 14:37 Lab Results 07/15/24 07/15/24 07/15/24 Range/Units 14:37 14:37 14:37 WBC 10.0 (3.8-10.6) k/uL RBC 3.87 (3.80-5.40) m/uL Hgb 10.7 L (11.4-16.0) gm/dL Hct 33.5 L (34.0-46.0) % MCV 86.5 D (80.0-100.0) fL MCH 27.6 (25.0-35.0) pg MCHC 31.9 (31.0-37.0) g/dL RDW 15.6 H (11.5-15.5) % Plt Count 330 (150-450) k/uL MPV 7.2 Neutrophils % 75 % Lymphocytes % 15 % Monocytes % 5 % Eosinophils % 3 % Basophils % 0 % Neutrophils # 7.5 (1.3-7.7) k/uL Lymphocytes # 1.5 (1.0-4.8) k/uL Monocytes # 0.5 (0-1.0) k/uL Eosinophils # 0.3 (0-0.7) k/uL Basophils # 0.0 (0-0.2) k/uL PT 12.2 (10.0-12.5) sec INR 1.1 (<1.2) APTT 24.7 (22.0-30.0) sec Sodium 138 (137-145) mmol/L Potassium 4.4 (3.5-5.1) mmol/L Chloride 99 (98-107) mmol/L Carbon Dioxide 29 (22-30) mmol/L Anion Gap 10 mmol/L BUN 7 (7-17) mg/dL Creatinine 0.72 (0.52-1.04) mg/dL Est GFR (CKD-EPI)AfAm >90 (>60 ml/min/1.73 sqM) Est GFR (CKD-EPI)NonAf >90 (>60 ml/min/1.73 sqM) Glucose 108 H (74-99) mg/dL Plasma Lactic Acid Srinivas (0.7-2.0) mmol/L Calcium 9.1 (8.4-10.2) mg/dL Magnesium 1.2 L (1.6-2.3) mg/dL Total Bilirubin 0.4 (0.2-1.3) mg/dL AST 19 (14-36) U/L ALT 10 (4-34) U/L Alkaline Phosphatase 124 (38-126) U/L Troponin I (0.000-0.034) ng/mL NT-Pro-B Natriuret Pep 1190 pg/mL Total Protein 7.0 (6.3-8.2) g/dL Albumin 3.9 (3.5-5.0) g/dL Influenza Type A (PCR) (Not Detectd) Influenza Type B (PCR) (Not Detectd) RSV (PCR) (Not Detectd) SARS-CoV-2 (PCR) (Not Detectd) 07/15/24 07/15/24 07/15/24 Range/Units 14:37 14:37 14:37 WBC (3.8-10.6) k/uL RBC (3.80-5.40) m/uL Hgb (11.4-16.0) gm/dL Hct (34.0-46.0) % MCV (80.0-100.0) fL MCH (25.0-35.0) pg MCHC (31.0-37.0) g/dL RDW (11.5-15.5) % Plt Count (150-450) k/uL MPV Neutrophils % % Lymphocytes % % Monocytes % % Eosinophils % % Basophils % % Neutrophils # (1.3-7.7) k/uL Lymphocytes # (1.0-4.8) k/uL Monocytes # (0-1.0) k/uL Eosinophils # (0-0.7) k/uL Basophils # (0-0.2) k/uL PT (10.0-12.5) sec INR (<1.2) APTT (22.0-30.0) sec Sodium (137-145) mmol/L Potassium (3.5-5.1) mmol/L Chloride (98-107) mmol/L Carbon Dioxide (22-30) mmol/L Anion Gap mmol/L BUN (7-17) mg/dL Creatinine (0.52-1.04) mg/dL Est GFR (CKD-EPI)AfAm (>60 ml/min/1.73 sqM) Est GFR (CKD-EPI)NonAf (>60 ml/min/1.73 sqM) Glucose (74-99) mg/dL Plasma Lactic Acid Srinivas 1.2 (0.7-2.0) mmol/L Calcium (8.4-10.2) mg/dL Magnesium (1.6-2.3) mg/dL Total Bilirubin (0.2-1.3) mg/dL AST (14-36) U/L ALT (4-34) U/L Alkaline Phosphatase (38-126) U/L Troponin I <0.012 (0.000-0.034) ng/mL NT-Pro-B Natriuret Pep pg/mL Total Protein (6.3-8.2) g/dL Albumin (3.5-5.0) g/dL Influenza Type A (PCR) Not Detected (Not Detectd) Influenza Type B (PCR) Not Detected (Not Detectd) RSV (PCR) Not Detected (Not Detectd) SARS-CoV-2 (PCR) Not Detected (Not Detectd) Disposition Clinical Impression: Chest pain Disposition: ADMITTED IP TO THIS HOSP Condition: Fair Is patient prescribed a controlled substance at d/c from ED?: No Decision Time: 16:00
[2024-07-15 14:54] LABS: Basophils % (A) 0 %; Eosinophils # (A) 0.3 k/uL (0-0.7); Eosinophils % (A) 3 %; HCT 33.5 % (34.0-46.0); HGB 10.7 gm/dL (11.4-16.0); Lymphocytes # (A) 1.5 k/uL (1.0-4.8); Lymphocytes % (A) 15 %; MCH 27.6 pg (25.0-35.0); MCHC 31.9 g/dL (31.0-37.0); Mean Platelet Volume 7.2; Monocytes # (A) 0.5 k/uL (0-1.0); Monocytes % (A) 5 %; Neutrophils # (A) 7.5 k/uL (1.3-7.7); Neutrophils % (A) 75 %; Platelet Count 330 k/uL (150-450); RBC 3.87 m/uL (3.80-5.40); RDW 15.6 % (11.5-15.5)
[2024-07-15] MEDS: oxyCODONE-APAP 10-325MG 1 EACH TAB PO STA (14:54)
[2024-07-15 14:56] LABS: INR 1.1 (<1.2); MCV 86.5 fL (80.0-100.0); Partial Thromboplastin Time 24.7 sec (22.0-30.0); Prothrombin Time 12.2 sec (10.0-12.5)
[2024-07-15 15:01] LABS: ALT 10 U/L (4-34); AST 19 U/L (14-36); African American GFR (CKD) >90 (>60 ml/min/1.73 sqM); Albumin 3.9 g/dL (3.5-5.0); Alkaline Phosphatase 124 U/L (38-126); Anion Gap 10 mmol/L; Blood Urea Nitrogen 7 mg/dL (7-17); Calcium 9.1 mg/dL (8.4-10.2); Carbon Dioxide 29 mmol/L (22-30); Chloride 99 mmol/L (98-107); Glucose 108 mg/dL (74-99); Magnesium 1.2 mg/dL (1.6-2.3); Non-African American GFR(CKD) >90 (>60 ml/min/1.73 sqM); Potassium 4.4 mmol/L (3.5-5.1); Sodium 138 mmol/L (137-145); Total Bilirubin 0.4 mg/dL (0.2-1.3)
[2024-07-15 15:09] LABS: NT-Pro-B-Type Natriuretic Pept 1190 pg/mL
--- NOTE | 2024-07-15 15:36 | XR ---
EXAMINATION TYPE: XR chest 2V DATE OF EXAM: 07/15/2024 3:12 PM COMPARISON: 06/04/2024 CLINICAL INDICATION: Female, 49 years old with history of chest pain, sob; [facility] TECHNIQUE: XR chest 2V Frontal and lateral views of the chest. FINDINGS: Lungs/Pleura: There is no evidence of pleural effusion, focal consolidation, or pneumothorax. Pulmonary vascularity: Unremarkable. Heart/mediastinum: Cardiomediastinal silhouette is unremarkable. Musculoskeletal: No acute osseous pathology. IMPRESSION: No acute cardiopulmonary disease/process. [facility] Katiana mAes, , 07/15/2024 3:33 PM
[2024-07-15] MEDS ORDERED: NITROGLYCERIN SL TABS 0.4 MG TAB SUBLINGUAL PRN (16:21)
[2024-07-15] MEDS: ASPIRIN 81 MG PO STA (16:22)
[2024-07-15] MEDS: MORPHINE SULFATE 4 MG/ML SYRINGE IV STA (16:23)
[2024-07-15] MEDS: ONDANSETRON 4 MG/2 ML VIAL IVP STA (16:23)
[2024-07-15] MEDS: ALPRAZolam 0.5 MG TAB PO STA (21:35)
[2024-07-15] MEDS: traZODone HCL 50 MG TAB PO SCH (22:58)
[2024-07-15] MEDS: oxyCODONE-APAP 10-325MG 1 EACH TAB PO SCH (22:58)
[2024-07-15] MEDS: MAGNESIUM SULFATE-D5W PMX 1 GM in DEXTROSE/WATER 1 100ML.BAG IVPB SCH (23:08)
[2024-07-15] MEDS: MAGNESIUM OXIDE 400 MG TAB PO STA (23:08)
[2024-07-16] MEDS: carvediloL 12.5 MG TAB PO SCH (07:29)
[2024-07-16] MEDS: PANTOPRAZOLE 40 MG TABLET PO SCH (07:30)
[2024-07-16] MEDS ORDERED: ASPIRIN 325 MG TAB PO SCH (09:00)
[2024-07-16] MEDS: SPIRONOLACTONE 25 MG TAB PO SCH (09:06)
[2024-07-16] MEDS: FAMOTIDINE 20 MG TAB PO SCH (09:06)
[2024-07-16] MEDS: CITALOPRAM HYDROBROMIDE 20 MG TAB PO SCH (09:06)
[2024-07-16] MEDS: LOSARTAN 50 MG TAB PO SCH (09:06)
[2024-07-16 10:03] LABS: Chol/HDL Ratio 3.34 Ratio; LDL Cholesterol,Calculated 80.5 mg/dL (0.0-131.0)
[2024-07-16 10:16] LABS: African American GFR (CKD) >90 (>60 ml/min/1.73 sqM); Anion Gap 4 mmol/L; Blood Urea Nitrogen 16 mg/dL (7-17); Calcium 8.3 mg/dL (8.4-10.2); Carbon Dioxide 34 mmol/L (22-30); Chloride 99 mmol/L (98-107); Glucose 110 mg/dL (74-99); Non-African American GFR(CKD) >90 (>60 ml/min/1.73 sqM); Sodium 137 mmol/L (137-145)
[2024-07-16 10:27] LABS: Magnesium 1.9 mg/dL (1.6-2.3); Potassium 4.8 mmol/L (3.5-5.1)
--- NOTE | 2024-07-16 12:27 | P.CRDCN ---
History of Present Illness History of present illness: HISTORY OF PRESENT ILLNESS: This is a 49-year-old female with a past medical history significant for hypertension, nicotine dependence, chronic pain, COPD, and marijuana use. Patient does not follow with a economic consultant. We have been asked to see the patient in consultation for chest pain. Patient examined at the bedside in the emergency room. Patient reports about a week ago she began having chest pain. She states then the pain went into her back and her right flank area. She does report a history of kidney stones but stated this not feel similar to when she had kidney stones. She states the pain has been getting worse and she eventually could not take it anymore so she came to the emergency room for further evaluation. She also reports having shortness of breath, diaphoresis, dizziness, and lightheadedness. She did not initially mention abdominal pain. However during physical examination when patient's abdomen was lightly palpated she jumped and said her abdomen was very painful. She also reports last week her ear popped and she is having problems hearing out of her right side. Patient states that she does not know any of her family history as she was adopted. She also reports that she recently quit smoking. DIAGNOSTICS: - EKG reveals sinus mechanism with no signs of acute ischemia. - Chest xray negative for acute process. - Laboratory data: WBC 10.0. Hemoglobin 10.7. Platelet count 330. Sodium 138. Potassium 4.4. BUN 7. Creatinine 0.72. Magnesium 1.2. Troponin negative x 3. proBNP 1190. - Current home cardiac medications include losartan 100 mg daily, rosuvastatin 5 mg daily, carvedilol 25 mg twice a day, Aldactone 25 mg daily - Most recent echocardiogram obtained in September 2022 revealed ejection fraction 55 to 60%, mild LVH, trace to mild TR -Patient underwent Lexiscan stress test in October 2021 which was negative for ischemia REVIEW OF SYSTEMS: At the time of my exam: CONSTITUTIONAL: Denies fever or chills. HEENT: Denies blurred vision, vision changes, or eye pain. Denies hemoptysis CARDIOVASCULAR: Denies chest pain. Denies orthopnea. Denies PND. Denies palpitations RESPIRATORY: Denies shortness of breath. GASTROINTESTINAL: Denies abdominal pain. Denies nausea or vomiting. HEMATOLOGIC: Denies bleeding disorders. GENITOURINARY: Denies any blood in urine. SKIN: Denies pruitis. Denies rash. PHYSICAL EXAM: VITAL SIGNS: Reviewed. GENERAL: Well-developed in no acute distress. HEENT: Head is normocephalic. Pupils are equal, round. Sclerae anicteric. Mucous membranes of the mouth are moist. Neck supple. No JVD or thyromegaly LUNGS: Respirations even and unlabored. Lungs essentially clear to auscultation bilaterally. HEART: Regular rate and rhythm. S1 and S2 heard. ABDOMEN: Soft. Nondistended. Nontender. EXTREMITIES: Normal range of motion. No clubbing or cyanosis. Peripheral pulses intact. No lower extremity edema NEUROLOGIC: Awake and alert. Oriented x 3. ASSESSMENT: Chest pain Abdominal pain Hypomagnesemia Hypertension COPD Chronic pain Nicotine dependence Marijuana use History of anxiety PLAN: An acute coronary event has been ruled out Resume home cardiac medications Recheck magnesium level this morning Hold Coreg Recommend stress testing to be performed tomorrow. However patient needs her ab dominal pain worked up before she can proceed with stress testing Further recommendations pending patient course Nurse practitioner note has been reviewed by physician. Signing provider agrees with the documented findings, assessment, and plan of care documented by DIRECTOR SUPPLY as a scribe. 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 IBS, cellulitis of the chin, CVA about 1 year ago(no residual) History of Any Multi-Drug Resistant Organisms: MRSA Date of last positivie culture/infection: 07/2016 MDRO Source:: Chin Past Surgical History: Appendectomy, Section, Cholecystectomy, Hysterectomy, Tubal Ligation Additional Past Surgical History / Comment(s): oral surgery . Pancreas biopsy May 2015. Past Anesthesia/Blood Transfusion Reactions: No Reported Reaction Past Psychological History: ADD/ADHD, Anxiety, Bipolar, Depression Smoking Status: Former smoker Past Alcohol Use History: None Reported Past Drug Use History: Marijuana - Past Family History Father History Unknown: Yes Family Medical History: No Reported History Additional Family Medical History / Comment(s): Pt adopted Mother History Unknown: Yes Additional Family Medical History / Comment(s): Pt adopted Medications and Allergies Home Medications Medication Instructions Recorded Confirmed Type Spironolactone [Aldactone] 25 mg PO DAILY 02/05/17 07/15/24 History carvediloL [Coreg] 25 mg PO BID 03/26/21 07/15/24 History oxyCODONE-APAP 10-325MG [Percocet 1 tab PO TID 03/16/22 07/15/24 History 10-325 mg] Citalopram Hydrobromide [CeleXA] 60 mg PO DAILY 01/27/23 07/15/24 History Albuterol Inhaler [Ventolin Hfa 2 puff INHALATION RT-QID PRN 04/02/24 07/15/24 History Inhaler] Montelukast [Singulair] 10 mg PO HS PRN 04/02/24 07/15/24 History Rosuvastatin Calcium [Crestor] 5 mg PO DAILY 04/02/24 07/15/24 History rOPINIRole HCL [Requip] 0.25 mg PO HS 04/02/24 07/15/24 History traZODone HCL [Desyrel] 50 mg PO HS 04/02/24 07/15/24 History Pantoprazole [Protonix] 40 mg PO BID 30 Days #60 tab 06/09/24 07/15/24 Rx Famotidine [Pepcid] 20 mg PO BID 07/15/24 07/15/24 History Ipratropium-Albuterol Nebulize 3 ml INHALATION RT-Q4H PRN 07/15/24 07/15/24 History [Duoneb 0.5 mg-3 mg/3 ml Soln] Losartan Potassium [Cozaar] 100 mg PO DAILY 07/15/24 07/15/24 History Allergies Allergy/AdvReac Type Severity Reaction Status Date / Time adhesive Allergy Rash/Hives Verified 07/15/24 13:38 amoxicillin Allergy Anaphylaxis Verified 07/15/24 13:38 azithromycin [From Zithromax] Allergy Anaphylaxis Verified 07/15/24 13:38 cephalexin monohydrate Allergy Anaphylaxis Verified 07/15/24 13:38 [From Keflex] ciprofloxacin Allergy Anaphylaxis Verified 07/15/24 13:38 clindamycin Allergy Anaphylaxis Verified 07/15/24 13:38 Iodinated Contrast Media Allergy Anaphylaxis Verified 07/15/24 13:38 [Iodinated Contrast- Oral and IV Dye] ketorolac [From Toradol] Allergy Anaphylaxis Verified 07/15/24 13:38 levofloxacin [From Levaquin] Allergy Rash/Hives Verified 07/15/24 13:38 naproxen Allergy Anaphylaxis Verified 07/15/24 13:38 NSAIDS (Non-Steroidal Allergy Rash/Hives Verified 07/15/24 13:38 Anti-Inflamma orphenadrine [From Norflex] Allergy Anaphylaxis Verified 07/15/24 13:38 pineapple Allergy Anaphylaxis Verified 07/15/24 13:38 shellfish derived Allergy Anaphylaxis Verified 07/15/24 13:38 Sulfa (Sulfonamide Allergy Anaphylaxis Verified 07/15/24 13:38 Antibiotics) sulfamethoxazole Allergy Anaphylaxis Verified 07/15/24 13:38 [From Bactrim] tramadol Allergy Anaphylaxis Verified 07/15/24 13:38 trimethoprim [From Bactrim] Allergy Anaphylaxis Verified 07/15/24 13:38 Physical Exam Vitals: Vital Signs Temp Pulse Resp BP Pulse Ox 07/16/24 07:30 98.1 F 86 20 144/88 97 07/16/24 01:00 97.9 F 75 16 111/57 98 07/15/24 23:32 98.7 F 78 18 108/69 93 L 07/15/24 22:11 98.9 F 65 20 99/62 94 L 07/15/24 16:21 98.4 F 76 18 113/70 93 L 07/15/24 13:36 98.8 F 78 22 156/98 94 L Results 07/15/24 14:37 07/16/24 09:14 Cardiac Enzymes 07/15/24 07/15/24 07/15/24 Range/Units 14:37 14:37 17:39 AST 19 (14-36) U/L Troponin I <0.012 <0.012 (0.000-0.034) ng/mL 07/15/24 Range/Units 20:16 AST (14-36) U/L Troponin I <0.012 (0.000-0.034) ng/mL Coagulation 07/15/24 Range/Units 14:37 PT 12.2 (10.0-12.5) sec APTT 24.7 (22.0-30.0) sec CBC 07/15/24 Range/Units 14:37 WBC 10.0 (3.8-10.6) k/uL RBC 3.87 (3.80-5.40) m/uL Hgb 10.7 L (11.4-16.0) gm/dL Hct 33.5 L (34.0-46.0) % Plt Count 330 (150-450) k/uL Comprehensive Metabolic Panel 07/15/24 Range/Units 14:37 Sodium 138 (137-145) mmol/L Potassium 4.4 (3.5-5.1) mmol/L Chloride 99 (98-107) mmol/L Carbon Dioxide 29 (22-30) mmol/L BUN 7 (7-17) mg/dL Creatinine 0.72 (0.52-1.04) mg/dL Glucose 108 H (74-99) mg/dL Calcium 9.1 (8.4-10.2) mg/dL AST 19 (14-36) U/L ALT 10 (4-34) U/L Alkaline Phosphatase 124 (38-126) U/L Total Protein 7.0 (6.3-8.2) g/dL Albumin 3.9 (3.5-5.0) g/dL Current Medications Generic Name Dose Route Start Last Admin Trade Name Freq PRN Reason Stop Dose Admin Alprazolam 0.5 mg 07/16/24 21:00 Alprazolam 0.5 Mg Tab PO HS [facility] Aspirin 325 mg 07/16/24 09:00 Aspirin 325 Mg Tab PO DAILY [facility] Carvedilol 25 mg 07/16/24 07:30 07/16/24 07:29 Carvedilol 12.5 Mg Tab PO 25 mg BID-W/MEALS [facility] Administration Citalopram Hydrobromide 60 mg 07/16/24 09:00 Citalopram Hydrobromide 20 Mg Tab PO DAILY [facility] Famotidine 20 mg 07/16/24 09:00 Famotidine 20 Mg Tab PO DAILY [facility] Losartan Potassium 100 mg 07/16/24 09:00 Losartan 50 Mg Tab PO DAILY [facility] Nitroglycerin 0.4 mg 07/15/24 16:21 Nitroglycerin Sl Tabs 0.4 Mg Tab SUBLINGUAL Q5M PRN Chest Pain Oxycodone/Acetaminophen 1 each 07/15/24 22:45 07/15/24 22:58 Oxycodone-Apap 10-325mg 1 Each Tab PO 1 each TID [facility] Administration Pantoprazole Sodium 40 mg 07/16/24 07:30 07/16/24 07:30 Pantoprazole 40 Mg Tablet PO 40 mg AC-BID [facility] Administration Ropinirole HCl 0.25 mg 07/15/24 22:45 07/15/24 22:58 Ropinirole Hcl 0.25 Mg Tab PO 0.25 mg HS [facility] Administration Spironolactone 25 mg 07/16/24 09:00 Spironolactone 25 Mg Tab PO DAILY [facility] Trazodone HCl 50 mg 07/15/24 22:45 07/15/24 22:58 Trazodone Hcl 50 Mg Tab PO 50 mg HS [facility] Administration 07/15/24 14:37 07/15/24 14:37
[2024-07-16] MEDS: ALPRAZolam 0.25 MG TAB PO PRN (15:37)
--- NOTE | 2024-07-16 16:43 | XR ---
Thoracic spine HISTORY: Back pain. COMPARISON: 06/02/2019 technique: 2 views of the thoracic spine were obtained. FINDINGS: The thoracic vertebral segments are normal in height and alignment and there is no fracture or sublux ation. There is minimal degenerative disc disease in the mid lower thoracic spine. The paraspinal sof t tissues are unremarkable IMPRESSION: Minimal degenerative disc disease. No other significant abnormality seen. No interval change. [facility], Workstation: [email or web address] 07/16/2024 4:41 PM
--- NOTE | 2024-07-16 16:52 | XR ---
Lumbar spine. HISTORY: Back pain. COMPARISON: 06/02/2019. TECHNIQUE: 3 views of the lumbar spine were obtained. FINDINGS: The lumbar vertebral segments are normal in height and alignment there is no fracture or subluxation. The disc spaces are well preserved and there is no significant degenerative disc disease. The visualized sacrum and SI joints are normal. There is probably mild osteoarthritic changes of the facets at the L4-5 and L5-S1 level. IMPRESSION: 1. No lumbar spine fracture or malalignment. 2. No significant degenerative disease. 3. Mild degenerative changes of the facets in the lower lumbar spine [facility], Workstation: [facility], 07/16/2024 4:49 PM
[2024-07-16] MEDS: HYDROmorphone 0.5 MG/0.5 ML SYRINGE IVP PRN (17:18)
[2024-07-16] MEDS: ALPRAZolam 0.5 MG TAB PO SCH (20:17)
--- NOTE | 2024-07-17 01:09 | HP ---
HISTORY AND PHYSICAL CHIEF COMPLAINT: Multiple chief complaints of chest pain, back pain as well as the abdominal pain. HISTORY OF PRESENT ILLNESS: This is a 49-year-old woman with a past medical history of multiple medical problems including CHF, COPD, hypertension, pneumonia, complaining of chest pain as well as back pain and also the loin pain. There is no history of any fever, rigors, or chills at this time. The patient had multiple evaluations previously including endoscopes. PAST MEDICAL HISTORY: Includes COPD, CHF, fibromyalgia, hypertension, multiple medical issues are reviewed. Multiple history and multiple medications reviewed. ALLERGIES: The patient has multiple allergies; allergies are also reviewed. HOME MEDICATIONS: Reviewed and include Pepcid. FAMILY HISTORY: No history of heart disease that the patient is heard of. SOCIAL HISTORY: History of vaping and THC. REVIEW OF SYSTEMS: Fourteen-point review of systems negative except as mentioned earlier. PHYSICAL EXAMINATION: VITAL SIGNS: Pulse is 72, blood pressure 110/60, respirations 18. HEENT: Conjunctivae normal. CARDIOVASCULAR: S1, S2. RESPIRATIONS: Diminished at the bases. ABDOMEN: Soft, nontender. LEGS: No edema. NERVOUS SYSTEM: Nonfocal. SKIN: No ulcer, rash, bleeding BACK: Some tenderness present. LABORATORY DATA: Reviewed. ASSESSMENT: 1. Chest and abdominal pain for evaluation, rule out coronary artery disease. 2. Rule out degenerative joint disease. 3. History of congestive heart failure. 4. History of chronic obstructive pulmonary disease. 5. Hypertension. 6. Hyperlipidemia. 7. Rheumatoid arthritis. 8. History of seizure disorder. 9. History of irritable bowel syndrome. 10.Multiple complex medical issues. Recommended to continue current medications, symptomatic treatment, and pain management. Resume the home medications. Closely follow with Cardiology. Guarded prognosis because of multiple complex medical conditions. Further recommendations to follow. MMODL / IJN: [id number] /
[2024-07-17] MEDS ORDERED: CAFFEINE CITRATE 60 MG/3 ML VIAL IV PRN (09:09)
[2024-07-17] MEDS ORDERED: AMINOPHYLLINE 500 MG/20 ML VIAL IV PRN (09:09)
[2024-07-17] MEDS ORDERED: REGADENOSON 0.4 MG/5 ML SYRINGE IV PRN (09:09)
[2024-07-17] MEDS ORDERED: AMINOPHYLLINE 500 MG/20 ML VIAL IV ONE (10:55)
--- NOTE | 2024-07-17 12:17 | CA ---
Lexiscan Nuclear Stress Test Report Name: Yolie Yeboah Exam Date: 07/17/2024 10:42 Exam Location: [facility] Stress Ht (in): 62 Wt (lb): 179 BSA: 1.82 Ordering Phys: Yvette Jarvis Referring Phys: SILVIA Technologist: ARIANA Age: 49 Gender: F : 1975 Procedure CPT: Indications: Reflex order-Stress test ICD-10 Codes: Patient History: Chest pain and ELVI. Medications: Meds past 24 hrs: Pretest Chest Pain: STRESS TEST Lexiscan Protocol Exercise Duration (min:sec): 1:[address] Depressions (mm): Angina Score: Garsia Score: Resting HR (bpm): 72 Peak HR (bpm): 96 Resting BP (mmHg): 112 / 58 Peak BP (mmHg): 156 / 59 MPHR: 171 Target HR: 145 % MPHR: 56 METS: 1.0 Total Dose: Peak Dose: Atropine: Double Product: 04742 BP Response: Stress Termination: INFUSION COMPLETE Stress Symptoms: CHEST PAIN,HEADACHE,NAUSEA Stress Summary: ECG ANALYSIS Resting ECG: Stress ECG: CONCLUSIONS Nondiagnostic stress testing Dr. Toi Villegas MD (Electronically Signed) Final Date: 17 July 2024 12:16
--- NOTE | 2024-07-17 12:19 | CA ---
Transthoracic Echo Report Name: Yolie Yeboah Age: 49 Gender: F : 1975 Exam Date: 07/17/2024 08:50 Exam Location: [facility] Ht (in): 62 Wt (lb): 179 Ordering Physician: Yvette Jarvis Attending/Referring Phys: [id number], Simona Facilities Manager Jammie Howard RDCS Procedure CPT: Indications: LV function, chest pain Cardiac Hx: Technical Quality: Good Contrast 1: Total Dose (mL): Contrast 2: Total Dose (mL): MEASUREMENTS (Male / Female) Normal Values 2D ECHO LV Diastolic Diameter PLAX 4.8 cm 4.2 - 5.9 / 3.9 - 5.3 cm LV Systolic Diameter PLAX 3.0 cm IVS Diastolic Thickness 1.1 cm 0.6 - 1.0 / 0.6 - 0.9 cm LVPW Diastolic Thickness 1.0 cm 0.6 - 1.0 / 0.6 - 0.9 cm LV Relative Wall Thickness 0.4 LVOT Diameter 2.2 cm Aortic Root Diameter 2.7 cm LV Diastolic Volume MOD BP 129.4 cm??? 67 - 155 / 56 - 104 cm??? LV Systolic Volume MOD BP 51.5 cm??? 22 - 58 / 19 - 49 cm??? LV Ejection Fraction MOD BP 60.2 % >= 55 % LV Cardiac Index MOD BP 3047.0 cm???/min???m??? LV Diastolic Volume MOD 4C 126.4 cm??? LV Systolic Volume MOD 4C 55.4 cm??? LV Ejection Fraction MOD 4C 56.1 % LV Cardiac Index MOD 4C 2773.7 cm???/min???m??? LV Diastolic Length 4C 9.3 cm LV Systolic Length 4C 8.0 cm LV Diastolic Volume MOD 2C 130.0 cm??? LV Systolic Volume MOD 2C 47.2 cm??? LV Ejection Fraction MOD 2C 63.7 % LV Cardiac Index MOD 2C 3239.6 cm???/min???m??? LV Diastolic Length 2C 9.1 cm LV Systolic Length 2C 7.9 cm LA Volume 48.7 cm??? 18 - 58 / 22 - 52 cm??? LA Volume Index 25.4 cm???/m??? 16 - 28 cm???/m??? Ascending Aorta Diameter 2.9 cm DOPPLER AV Peak Velocity 158.4 cm/s AV Peak Gradient 10.0 mmHg AV Mean Velocity 107.6 cm/s AV Mean Gradient 5.2 mmHg AV Velocity Time Integral 32.3 cm LVOT Peak Velocity 137.7 cm/s LVOT Peak Gradient 7.6 mmHg LVOT Velocity Time Integral 28.3 cm LVOT Stroke Volume 111.4 cm??? LVOT Stroke Volume Index 61.1 ml/m??? LVOT Cardiac Index 4354.4 cm???/min???m??? AV Area Cont Eq vti 3.5 cm??? AV Area Cont Eq pk 3.4 cm??? MV Area PHT 4.3 cm??? Mitral E Point Velocity 104.0 cm/s Mitral A Point Velocity 85.2 cm/s Mitral E to A Ratio 1.2 MV Deceleration Time 176.0 ms TR Peak Velocity 239.6 cm/s TR Peak Gradient 23.0 mmHg Right Atrial Pressure 10.0 mmHg Pulmonary Artery Systolic Pressu 33.0 mmHg Right Ventricular Systolic Press 33.0 mmHg PV Peak Velocity 93.9 cm/s PV Peak Gradient 3.5 mmHg FINDINGS Left Ventricle Left ventricular ejection fraction is estimated at 55-60 %. Mildly increased septal wall thickness. Mildly increased posterior wall thickness. Moderately increased left ventricular diastolic volume. Mildly increased left ventricular systolic volume. No obvious regional wall motion abnormalities. Right Ventricle Normal right ventricular size and function. Right ventricular systolic pressure within normal limits. Right Atrium Normal right atrial size. Left Atrium Normal left atrial size. Mitral Valve Structurally normal mitral valve. No mitral stenosis, regurgitation or prolapse. Aortic Valve Trileaflet aortic valve. No aortic valve stenosis or regurgitation. Tricuspid Valve Structurally normal tricuspid valve. No tricuspid stenosis. Mild tricuspid regurgitation. Pulmonic Valve Pulmonic valve not well visualized. No pulmonic stenosis. No pulmonic regurgitation. Pericardium No pericardial effusion. Aorta Normal size aortic root and proximal ascending aorta. CONCLUSIONS Normal biventricular systolic function No significant valvular abnormalities noted No pericardial effusion Normal pulmonary artery systolic pressure Normal aortic root and proximal ascending aorta Previewed by: Dr. Toi Villegas MD (Electronically Signed) Final Date: 17 July 2024 12:18
--- NOTE | 2024-07-17 12:25 | P.PN ---
Subjective HISTORY OF PRESENT ILLNESS: This is a 49-year-old female with a past medical history significant for hypertension, nicotine dependence, chronic pain, COPD, and marijuana use. Patient does not follow with a quiller tender. We have been asked to see the patient in consultation for chest pain. Patient examined at the bedside in the emergency room. Patient reports about a week ago she began having chest pain. She states then the pain went into her back and her right flank area. She does report a history of kidney stones but stated this not feel similar to when she had kidney stones. She states the pain has been getting worse and she eventu fallon could not take it anymore so she came to the emergency room for further evaluation. She also reports having shortness of breath, diaphoresis, dizziness, and lightheadedness. She did not initially mention abdominal pain. However during physical examination when patient's abdomen was lightly palpated she jumped and said her abdomen was very painful. She also reports last week her ear popped and she is having problems hearing out of her right side. Patient states that she does not know any of her family history as she was adopted. She also reports that she recently quit smoking. DIAGNOSTICS: - EKG reveals sinus mechanism with no signs of acute ischemia. - Chest xray negative for acute process. - Laboratory data: WBC 10.0. Hemoglobin 10.7. Platelet count 330. Sodium 138. Potassium 4.4. BUN 7. Creatinine 0.72. Magnesium 1.2. Troponin negative x 3. proBNP 1190. - Current home cardiac medications include losartan 100 mg daily, rosuvastatin 5 mg daily, carvedilol 25 mg twice a day, Aldactone 25 mg daily - Most recent echocardiogram obtained in September 2022 revealed ejection fraction 55 to 60%, mild LVH, trace to mild TR -Patient underwent Lexiscan stress test in October 2021 which was negative for ischemia 07/17/2024 Patient examined this morning the bedside. Patient continues to report epigastric pain this morning. She denies any shortness of breath or cough. She continues to report significant abdominal pain this morning as well. She has not yet been evaluated by general surgery. Echocardiogram completed revealing ejection fraction 55 to 60%, mild TR PHYSICAL EXAM: VITAL SIGNS: Reviewed. GENERAL: Well-developed in no acute distress. HEENT: Head is normocephalic. Pupils are equal, round. Sclerae anicteric. Mucous membranes of the mouth are moist. Neck supple. No JVD or thyromegaly LUNGS: Respirations even and unlabored. Lungs essentially clear to auscultation bilaterally. HEART: Regular rate and rhythm. S1 and S2 heard. ABDOMEN: Soft. Nondistended. Nontender. EXTREMITIES: Normal range of motion. No clubbing or cyanosis. Peripheral pulses intact. No lower extremity edema NEUROLOGIC: Awake and alert. Oriented x 3. ASSESSMENT: Chest pain Abdominal pain Hypomagnesemia Hypertension COPD Chronic pain Nicotine dependence Marijuana use History of anxiety PLAN: An acute coronary event has been ruled out Continue current cardiac medications Patient was initially scheduled for a treadmill stress test this morning. However she still has not been evaluated by general surgery at the time of our evaluation. Will change stress test to a Lexiscan stress test today. Await general surgery evaluation Further recommendations pending patient course Nurse practitioner note has been reviewed by physician. Signing provider agrees with the documented findings, assessment, and plan of care documented by TICKET SALES AGENT as a scribe. Objective - Vital Signs Vital signs: Vital Signs Temp 98.7 F 07/17/24 07:40 Pulse 78 07/17/24 07:40 Resp 18 07/17/24 07:40 BP 142/72 07/17/24 07:40 Pulse Ox 94 L 07/17/24 07:40 FiO2 Intake & Output 07/16/24 07/17/24 07/17/24 18:59 06:59 18:59 Intake Total 120 Balance 120 Weight 81.193 kg Intake: Oral 120 Other: Voiding Method Toilet Toilet # Voids 2 - Labs CBC & Chem 7: 07/15/24 14:37 07/16/24 09:14
--- NOTE | 2024-07-17 12:40 | NM ---
EXAMINATION TYPE: NM stress lexiscan cardiolite DATE OF EXAM: 07/17/2024 COMPARISON: NONE CLINICAL INDICATION: Female, 49 years old with history of CP; TECHNIQUE: After the intravenous administration of 10.6 mCi Tc 99m Sestamibi - Cardiolite resting SP ECT images acquired 50 minutes post injection. The patient received 0.4mg Lexiscan, 25.9 mCi Tc 99m Sestamibi - Stress images obtained [address] injection FINDINGS: Review of stress and rest SPECT images demonstrates no distinct perfusion abnormality. Gated analysi s shows normal wall motion with an estimated left ventricular ejection fraction of 62 %. TID is calc ulated at 0.71, within normal limits. IMPRESSION: No scintigraphic evidence for reversible ischemia. [facility], , 07/17/2024 12:38 PM
--- NOTE | 2024-07-17 12:59 | P.GSCN ---
History of Present Illness Consult date: 07/17/24 Reason for Consult: Abdominal pain, nausea History of present illness: This is a 49-year-old female with multiple medical problems. Patient that she has had complaints of abdominal pain and nausea. She has pain that radiates from her epigastric area to her back. Patient has a previous history of hysterectomy, appendectomy, cholecystectomy. 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 IBS, cellulitis of the chin, CVA about 1 year ago(no residual), hiatal hernia History of Any Multi-Drug Resistant Organisms: MRSA Year Discovered:: 07/2016 MDRO Source:: [place] Past Surgical History: Appendectomy, Section, Cholecystectomy, Hysterectomy, Tubal Ligation Additional Past Surgical History / Comment(s): oral surgery . Pancreas biopsy May 2015. Past Anesthesia/Blood Transfusion Reactions: No Reported Reaction Past Psychological History: ADD/ADHD, Anxiety, Bipolar, Depression Additional Psychological History / Comment(s): Pt resides with her spouse and other family members. Pt states borderline personality disorder diagnosed around 2010. She has a cane and walker but does not normally use them. Occasional marijuana/edibles Smoking Status: Former smoker Past Alcohol Use History: None Reported Additional Past Alcohol Use History / Comment(s): Pt started smoking in 1983 and was a 3 ppd smoker but about 6 months ago cut down to 3 cigarettes a day. Patient does vape in between Past Drug Use History: Marijuana Additional Drug Use History / Comment(s): Says she occasionally has edible marijuana- a couple times within the last year. - Past Family History Father History Unknown: Yes Family Medical History: No Reported History Additional Family Medical History / Comment(s): Pt adopted Mother History Unknown: Yes Additional Family Medical History / Comment(s): Pt adopted Medications and Allergies Home Medications Medication Instructions Recorded Confirmed Type Spironolactone [Aldactone] 25 mg PO DAILY 02/05/17 07/15/24 History carvediloL [Coreg] 25 mg PO BID 03/26/21 07/15/24 History oxyCODONE-APAP 10-325MG [Percocet 1 tab PO TID 03/16/22 07/15/24 History 10-325 mg] Citalopram Hydrobromide [CeleXA] 60 mg PO DAILY 01/27/23 07/15/24 History Albuterol Inhaler [Ventolin Hfa 2 puff INHALATION RT-QID PRN 04/02/24 07/15/24 History Inhaler] Montelukast [Singulair] 10 mg PO HS PRN 04/02/24 07/15/24 History Rosuvastatin Calcium [Crestor] 5 mg PO DAILY 04/02/24 07/15/24 History rOPINIRole HCL [Requip] 0.25 mg PO HS 04/02/24 07/15/24 History traZODone HCL [Desyrel] 50 mg PO HS 04/02/24 07/15/24 History Pantoprazole [Protonix] 40 mg PO BID 30 Days #60 tab 06/09/24 07/15/24 Rx Famotidine [Pepcid] 20 mg PO BID 07/15/24 07/15/24 History Ipratropium-Albuterol Nebulize 3 ml INHALATION RT-Q4H PRN 07/15/24 07/15/24 History [Duoneb 0.5 mg-3 mg/3 ml Soln] Losartan Potassium [Cozaar] 100 mg PO DAILY 07/15/24 07/15/24 History Allergies Allergy/AdvReac Type Severity Reaction Status Date / Time adhesive Allergy Rash/Hives Verified 07/15/24 13:38 amoxicillin Allergy Anaphylaxis Verified 07/15/24 13:38 azithromycin [From Zithromax] Allergy Anaphylaxis Verified 07/15/24 13:38 cephalexin monohydrate Allergy Anaphylaxis Verified 07/15/24 13:38 [From Keflex] ciprofloxacin Allergy Anaphylaxis Verified 07/15/24 13:38 clindamycin Allergy Anaphylaxis Verified 07/15/24 13:38 Iodinated Contrast Media Allergy Anaphylaxis Verified 07/15/24 13:38 [Iodinated Contrast- Oral and IV Dye] ketorolac [From Toradol] Allergy Anaphylaxis Verified 07/15/24 13:38 levofloxacin [From Levaquin] Allergy Rash/Hives Verified 07/15/24 13:38 naproxen Allergy Anaphylaxis Verified 07/15/24 13:38 NSAIDS (Non-Steroidal Allergy Rash/Hives Verified 07/15/24 13:38 Anti-Inflamma orphenadrine [From Norflex] Allergy Anaphylaxis Verified 07/15/24 13:38 pineapple Allergy Anaphylaxis Verified 07/15/24 13:38 shellfish derived Allergy Anaphylaxis Verified 07/15/24 13:38 Sulfa (Sulfonamide Allergy Anaphylaxis Verified 07/15/24 13:38 Antibiotics) sulfamethoxazole Allergy Anaphylaxis Verified 07/15/24 13:38 [From Bactrim] tramadol Allergy Anaphylaxis Verified 07/15/24 13:38 trimethoprim [From Bactrim] Allergy Anaphylaxis Verified 07/15/24 13:38 Surgical - Exam Vital Signs Temp Pulse Resp BP Pulse Ox 98.8 F 78 22 156/98 94 L 07/15/24 13:36 07/15/24 13:36 07/15/24 13:36 07/15/24 13:36 07/15/24 13:36 - General well developed, well nourished, no distress - Eyes PERRL - ENT normal pinna - Neck no masses - Respiratory normal expansion - Cardiovascular Rhythm: regular - Abdomen Abdomen: soft, non tender Results - Labs 07/15/24 14:37 07/16/24 09:14 Assessment and Plan Plan: The patient does not appear to be in any acute distress. She is hungry which to be. Patient placed on a regular diet. Will also schedule her for esophagram upper GI.
[2024-07-17 13:07] VITALS: BMI 32.7
--- NOTE | 2024-07-17 14:36 | FL ---
EXAMINATION TYPE: FL UGI w esophagus DATE OF EXAM: 07/17/2024 COMPARISON: Correlation CT 06/01/2024 CLINICAL INDICATION: Female, 49 years old with history of Nausea, abdominal pain; PHH, TECHNIQUE: A double contrast esophagram and UGI study is performed. A total of 1 minute 33 seconds of fluoroscopic time was utilized during procedure and 44 images obtained. Total dose area product (D AP) in uGy*m?, mGy*cm? (or similar): 50. FINDINGS: The swallowing mechanism is normal and hypopharyngeal anatomy is preserved. The cervical and thoracic portions have a normal course and caliber and normal motility. The mucosa is normal and no persistent filling defect is encountered. Some images suggest the presence of a tiny sliding hiatal hernia. No gastroesophageal reflux is ident ified. The stomach shows mild diffuse fold thickening. A couple tiny hyperplastic polyps may be present ping g the fundus and proximal body. No suspicious filling defect is identified. The duodenal bulb, sweep, and proximal small bowel loops are unremarkable. IMPRESSION: 1. Some images suggest the presence of a tiny sliding hiatal hernia. No gastroesophageal reflux is se en. 2. Mild diffuse gastric fold thickening; correlate for gastritis. [facility], , 07/17/2024 2:34 PM
--- NOTE | 2024-07-17 16:37 | P.PN ---
Subjective This is a pleasant 49 years old female who presents with shortness of breath initially. Currently she denies chest pain or dyspnea. She has been evaluated by insurance compliance analyst and she had negative stress test and cleared for discharge However she still complains from epigastric pain and tenderness and been evaluated by surgery team Patient will undergo esophagogram and upper GI per surgery team. Will follow-up the results Objective - Vital Signs Vital signs: Vital Signs Temp 98.9 F 07/17/24 14:36 Pulse 83 07/17/24 14:36 Resp 17 07/17/24 14:36 BP 154/93 07/17/24 14:36 Pulse Ox 92 L 07/17/24 14:36 FiO2 Intake & Output 07/16/24 07/17/24 07/17/24 18:59 06:59 18:59 Intake Total 120 Balance 120 Weight 81.193 kg 81.193 kg Intake: Oral 120 Other: Voiding Method Toilet Toilet # Voids 2 - Exam GENERAL: The patient is alert and oriented x3, not in any acute distress. Well developed, well nourished. HEENT: Pupils are round and equally reacting to light. EOMI. No scleral icterus. No conjunctival pallor. Normocephalic, atraumatic. No pharyngeal erythema. No thyromegaly. CARDIOVASCULAR: S1 and S2 present. No murmurs, rubs, or gallops. PULMONARY: Chest is clear to auscultation, no wheezing , no crackles. ABDOMEN: Soft, Mild epigastric pain and tenderness, no rebound tenderness, nondistended, normoactive bowel sounds. No palpable organomegaly. MUSCULOSKELETAL: No joint swelling or deformity. EXTREMITIES: No cyanosis, clubbing, or pedal edema. NEUROLOGICAL: Gross neurological examination did not reveal any focal deficits. SKIN: No rashes. no petechiae. - Labs CBC & Chem 7: 07/15/24 14:37 07/16/24 09:14 Assessment and Plan Assessment: Chest pain, resolved Epigastric pain and tenderness Hypomagnesemia Hypertension COPD, no acute process Nicotine dependence Plan: Cardiology team cleared her for discharge Follow-up as defecogram GI and DVT prophylaxis Cardiology Consult Surgery team are following
[2024-07-17] MEDS: carvediloL 12.5 MG TAB PO SCH (16:56)
[2024-07-18] MEDS: diphenhydrAMINE 50 MG/ML 1 ML VIAL IVP STA (00:37)
[2024-07-18] MEDS: methylPREDNISolone SOD SUCCI 125 MG/2 ML VIAL IV STA (00:40)
[2024-07-18] MEDS: FAMOTIDINE 20 MG/2 ML VIAL IV STA (00:40)
[2024-07-18 00:47] VITALS: RESP 18
[2024-07-18] MEDS ORDERED: LORazepam 2 MG/ML INJ IV PRN (01:07)
[2024-07-18] MEDS: ONDANSETRON 4 MG/2 ML VIAL IVP PRN (01:11)
--- NOTE | 2024-07-18 11:09 | P.PN ---
Subjective Progress Note Date: 07/18/24 Patient is resting comfortably bed. She denies any abdominal pain. Apparently she tolerated her diet yesterday. On exam vital signs appear stable. Abdomen soft. No surgical inventions planned. Objective - Vital Signs Vital signs: Vital Signs Temp 98.1 F 07/18/24 07:38 Pulse 101 H 07/18/24 07:38 Resp 18 07/18/24 07:38 BP 173/75 07/18/24 07:38 Pulse Ox 94 L 07/18/24 07:38 FiO2 Intake & Output 07/17/24 07/18/24 07/18/24 18:59 06:59 18:59 Weight 81.193 kg Other: Voiding Method Toilet Toilet # Voids 8 2 # Bowel Movements 3 - Labs CBC & Chem 7: 07/15/24 14:37 07/16/24 09:14
[2024-07-18] MEDS ORDERED: IPRATROPIUM-ALBUTEROL 3 ML NEB INHALATION PRN ×2 (12:41→12:54)
[2024-07-18] MEDS: IPRATROPIUM-ALBUTEROL 3 ML NEB INHALATION STA (12:50)
[2024-07-18 12:54] VITALS: PULSE 90
[2024-07-18 15:47] VITALS: BP 159/86; TEMP 98.5
[2024-07-18] MEDS: IPRATROPIUM-ALBUTEROL 3 ML NEB INHALATION SCH (16:06)
[2024-07-18] MEDS: HYDROmorphone 0.5 MG/0.5 ML SYRINGE IVP STA (16:56)
--- NOTE | 2024-07-19 23:46 | P.DS ---
Providers Date of admission: 07/15/24 16:22 Attending physician: Shaneka Anaya Consults: 07/16/24 11:19 Consult Physician Urgent Consulting Provider: Patrick Paige Consult Reason/Comments: abd pain, cp Do you want consulting provider notified?: Yes Primary care physician: Stated None Hospital Course: Diagnoses: Chest pain, resolved Epigastric pain and tenderness Hypomagnesemia Hypertension COPD, no acute process Nicotine dependence Hospital course: This is a pleasant 49 years old female who presents with shortness of breath initially. Currently she denies chest pain or dyspnea. She has been evaluated by membership sales advisor and she had negative stress test and cleared for discharge However she still complains from epigastric pain and tenderness and been evaluated by surgery team Patient will undergo esophagogram and upper GI per surgery team. Upper GI barium swallow was done showing presence of tiny sliding hiatal hernia, no gastroesophageal reflux is seen but the stomach showing mild diffuse wall thickening suspicious for gastritis. No suspicious filling defect was identified With these test results will reach out to Dr. Zhu who still cleared her for discharge Patient remains clinically stable and agreeable to be discharged at bedside and he is agreeable as well Patient was cleared for discharge by cardiology and general surgery team as above Problems and management plan were discussed with the patient and he verbalized understanding and acceptance Patient was found stable and can be discharged home in guarded prognosis however he needs follow-up as an outpatient. Patient was instructed to follow up with PCP within one week and patient agrees Patient was instructed to follow-up with Dr. Santos in 1 week and surgeon in 1 week after discharge and she agrees Also patient has wood tile installer Dr. Su which might benefit from outpatient follow-up in 1 week and she agrees Patient also wanted the contact information for Dr. Renae for right ear problem which was provided for her Physical exam Gen: patient is a AAOx3, no distress CVS: S1-S2, RRR, no murmur Lungs: B/L CTA, no wheezing Abdomen: soft, no distention, no tenderness, positive bowel sounds Extremity: no leg edema or induration Time spent more than 35 minutes Patient Condition at Discharge: Fair Plan - Discharge Summary New Discharge Prescriptions: Continue Spironolactone [Aldactone] 25 mg PO DAILY carvediloL [Coreg] 25 mg PO BID Citalopram Hydrobromide [CeleXA] 60 mg PO DAILY Albuterol Inhaler [Ventolin Hfa Inhaler] 2 puff INHALATION RT-QID PRN PRN Reason: Shortness Of Breath Rosuvastatin Calcium [Crestor] 5 mg PO DAILY Montelukast [Singulair] 10 mg PO HS PRN PRN Reason: Allergy Symptoms Pantoprazole [Protonix] 40 mg PO BID 30 Days #60 tab oxyCODONE-APAP 10-325MG [Percocet 10-325 mg] 1 tab PO TID rOPINIRole HCL [Requip] 0.25 mg PO HS traZODone HCL [Desyrel] 50 mg PO HS Ipratropium-Albuterol Nebulize [Duoneb 0.5 mg-3 mg/3 ml Soln] 3 ml INHALATION RT-Q4H PRN PRN Reason: Shortness Of Breath Losartan Potassium [Cozaar] 100 mg PO DAILY Famotidine [Pepcid] 20 mg PO BID Discharge Medication List Spironolactone [Aldactone] 25 mg PO DAILY 02/05/17 [History] carvediloL [Coreg] 25 mg PO BID 03/26/21 [History] oxyCODONE-APAP 10-325MG [Percocet 10-325 mg] 1 tab PO TID 03/16/22 [History] Citalopram Hydrobromide [CeleXA] 60 mg PO DAILY 01/27/23 [History] Albuterol Inhaler [Ventolin Hfa Inhaler] 2 puff INHALATION RT-QID PRN 04/02/24 [History] Montelukast [Singulair] 10 mg PO HS PRN 04/02/24 [History] Rosuvastatin Calcium [Crestor] 5 mg PO DAILY 04/02/24 [History] rOPINIRole HCL [Requip] 0.25 mg PO HS 04/02/24 [History] traZODone HCL [Desyrel] 50 mg PO HS 04/02/24 [History] Pantoprazole [Protonix] 40 mg PO BID 30 Days #60 tab 06/09/24 [Rx] Famotidine [Pepcid] 20 mg PO BID 07/15/24 [History] Ipratropium-Albuterol Nebulize [Duoneb 0.5 mg-3 mg/3 ml Soln] 3 ml INHALATION RT-Q4H PRN 07/15/24 [History] Losartan Potassium [Cozaar] 100 mg PO DAILY 07/15/24 [History] Follow up Appointment(s)/Referral(s): None,Stated [Primary Care Provider] - 1-2 days Patrick Paige MD [STAFF PHYSICIAN] - 1 Week Toi Villegas MD [STAFF PHYSICIAN] - 1 Week Teto Su MD [STAFF PHYSICIAN] - 1 Week Chago Michelle DO [Doctor of Osteopathic Medicine] - 1 Week Patient Instructions/Handouts: Chest Pain (DC) Activity/Diet/Wound Care/Special Instructions: heart healthy diet activity is restricted till you see your doctor Discharge Disposition: HOME SELF-CARE
== END 2024-07-18 20:59 | disposition home or self-care (01) ==
LOC: EC 13:19 → 6NMEDSUR 16:22
PROVIDERS: ADMIT Hospitalist; ATTEND Hospitalist
DX: R07.89 Other chest pain (principal); E83.42 Hypomagnesemia; K44.9 Diaphragmatic hernia without obstruction or gangrene; I11.0 Hypertensive heart disease with heart failure; I50.9 Heart failure, unspecified; R10.13 Epigastric pain; R11.0 Nausea; J44.9 Chronic obstructive pulmonary disease, unspecified; E78.5 Hyperlipidemia, unspecified; G40.909 Epilepsy, unspecified, not intractable, without status epilepticus; R42 Dizziness and giddiness; R61 Generalized hyperhidrosis; M79.7 Fibromyalgia; M06.9 Rheumatoid arthritis, unspecified; F41.9 Anxiety disorder, unspecified; G89.29 Other chronic pain; M54.9 Dorsalgia, unspecified; F17.210 Nicotine dependence, cigarettes, uncomplicated; F12.90 Cannabis use, unspecified, uncomplicated; F17.290 Nicotine dependence, other tobacco product, uncomplicated; Z79.51 Long term (current) use of inhaled steroids; Z79.891 Long term (current) use of opiate analgesic; Z79.899 Other long term (current) drug therapy; Z88.6 Allergy status to analgesic agent; Z88.1 Allergy status to other antibiotic agents; Z91.041 Radiographic dye allergy status; Z88.5 Allergy status to narcotic agent; Z88.0 Allergy status to penicillin; Z88.2 Allergy status to sulfonamides; Z91.018 Allergy to other foods; Z91.013 Allergy to seafood; Z91.048 Other nonmedicinal substance allergy status; Z11.52 Encounter for screening for COVID-19; Z11.59 Encounter for screening for other viral diseases; Z87.442 Personal history of urinary calculi; Z87.01 Personal history of pneumonia (recurrent); Z90.710 Acquired absence of both cervix and uterus; Z90.49 Acquired absence of other specified parts of digestive tract; Z87.19 Personal history of other diseases of the digestive system
CPT/HCPCS: 96376 ×2; 96375 ×3; 96365; 99285; 36415; 94640 ×2; 93005 ×2; 93017; 93306; 83880; 80061; 80053; 80048; 83605; 83735 ×2; 84484; 85025; 85610; 85730; 87636; 72070; 72110; 74240; 71046; 78452; G0378 ×4; A9500; J2270; J1200; J2405 ×2; J3490; J3475 ×2; J2785; J1171 ×3; J2919

== ENCOUNTER 2024-08-07 14:16 | Emergency (ER) | payer MEDICARE ==
[2024-08-07 14:49] VITALS: TEMP 98.1
--- NOTE | 2024-08-07 15:19 | ED ---
Abdominal Pain HPI - General Chief Complaint: Abdominal Pain Stated Complaint: back pain Time Seen by Provider: 08/07/24 14:18 Source: patient, EMS, RN notes reviewed, old records reviewed Mode of arrival: EMS Limitations: no limitations - History of Present Illness Initial Comments: This is a 49-year-old female to the ER for evaluation abdominal pain with recent history of urinary tract infection now with back pain. Patient placed on antibiotics with no help. Has no other complaints of chills or sick contacts just increasingly pain with what she believes is failed outpatient treatment of urinary tract infection MD Complaint: abdominal pain -: days(s) Location: suprapubic Radiation: suprapubic Severity: moderate Severity scale (1-10): 4 Quality: stabbing Consistency: constant Improves With: nothing Worsens With: nothing Associated Symptoms: nausea, vomiting Treatments Prior to Arrival: other (0) - Related Data Home Medications Medication Instructions Recorded Confirmed Spironolactone [Aldactone] 25 mg PO DAILY 02/05/17 07/15/24 carvediloL [Coreg] 25 mg PO BID 03/26/21 07/15/24 oxyCODONE-APAP 10-325MG [Percocet 1 tab PO TID 03/16/22 07/15/24 10-325 mg] Citalopram Hydrobromide [CeleXA] 60 mg PO DAILY 01/27/23 07/15/24 Albuterol Inhaler [Ventolin Hfa 2 puff INHALATION RT-QID PRN 04/02/24 07/15/24 Inhaler] Montelukast [Singulair] 10 mg PO HS PRN 04/02/24 07/15/24 Rosuvastatin Calcium [Crestor] 5 mg PO DAILY 04/02/24 07/15/24 rOPINIRole HCL [Requip] 0.25 mg PO HS 04/02/24 07/15/24 traZODone HCL [Desyrel] 50 mg PO HS 04/02/24 07/15/24 Famotidine [Pepcid] 20 mg PO BID 07/15/24 07/15/24 Ipratropium-Albuterol Nebulize 3 ml INHALATION RT-Q4H PRN 07/15/24 07/15/24 [Duoneb 0.5 mg-3 mg/3 ml Soln] Losartan Potassium [Cozaar] 100 mg PO DAILY 07/15/24 07/15/24 Previous Rx's Medication Instructions Recorded Pantoprazole [Protonix] 40 mg PO BID 30 Days #60 tab 06/09/24 Allergies Allergy/AdvReac Type Severity Reaction Status Date / Time adhesive Allergy Rash/Hives Verified 08/07/24 14:34 amoxicillin Allergy Anaphylaxis Verified 08/07/24 14:34 azithromycin [From Zithromax] Allergy Anaphylaxis Verified 08/07/24 14:34 cephalexin monohydrate Allergy Anaphylaxis Verified 08/07/24 14:34 [From Keflex] ciprofloxacin Allergy Anaphylaxis Verified 08/07/24 14:34 clindamycin Allergy Anaphylaxis Verified 08/07/24 14:34 Iodinated Contrast Media Allergy Anaphylaxis Verified 08/07/24 14:34 [Iodinated Contrast- Oral and IV Dye] ketorolac [From Toradol] Allergy Anaphylaxis Verified 08/07/24 14:34 levofloxacin [From Levaquin] Allergy Rash/Hives Verified 08/07/24 14:34 naproxen Allergy Anaphylaxis Verified 08/07/24 14:34 NSAIDS (Non-Steroidal Allergy Rash/Hives Verified 08/07/24 14:34 Anti-Inflamma orphenadrine [From Norflex] Allergy Anaphylaxis Verified 08/07/24 14:34 pineapple Allergy Anaphylaxis Verified 08/07/24 14:34 shellfish derived Allergy Anaphylaxis Verified 08/07/24 14:34 Sulfa (Sulfonamide Allergy Anaphylaxis Verified 08/07/24 14:34 Antibiotics) sulfamethoxazole Allergy Anaphylaxis Verified 08/07/24 14:34 [From Bactrim] tramadol Allergy Anaphylaxis Verified 08/07/24 14:34 trimethoprim [From Bactrim] Allergy Anaphylaxis Verified 08/07/24 14:34 Review of Systems ROS Statement: Those systems with pertinent positive or pertinent negative responses have been documented in the HPI. ROS Other: All systems not noted in ROS Statement are negative. 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 IBS, cellulitis of the chin, CVA about 1 year ago(no residual), hiatal hernia History of Any Multi-Drug Resistant Organisms: MRSA Date of last positivie culture/infection: 07/2016 MDRO Source:: Chin Past Surgical History: Appendectomy, Section, Cholecystectomy, Hysterectomy, Tubal Ligation Additional Past Surgical History / Comment(s): oral surgery . Pancreas biopsy May 2015. Past Anesthesia/Blood Transfusion Reactions: No Reported Reaction Past Psychological History: ADD/ADHD, Anxiety, Bipolar, Depression Smoking Status: Former smoker Past Alcohol Use History: None Reported Past Drug Use History: Marijuana - Past Family History Father History Unknown: Yes Family Medical History: No Reported History Additional Family Medical History / Comment(s): Pt adopted Mother History Unknown: Yes Additional Family Medical History / Comment(s): Pt adopted General Exam Limitations: no limitations General appearance: alert, in no apparent distress Head exam: Present: atraumatic, normocephalic, normal inspection Eye exam: Present: normal appearance, PERRL, EOMI. Absent: scleral icterus, conjunctival injection, periorbital swelling ENT exam: Present: normal exam, mucous membranes moist Neck exam: Present: normal inspection. Absent: tenderness, meningismus, lymphadenopathy Respiratory exam: Present: normal lung sounds bilaterally. Absent: respiratory distress, wheezes, rales, rhonchi, stridor Cardiovascular Exam: Present: regular rate, normal rhythm, normal heart sounds. Absent: systolic murmur, diastolic murmur, rubs, gallop, clicks GI/Abdominal exam: Present: soft, normal bowel sounds. Absent: distended, tenderness, guarding, rebound, rigid Extremities exam: Present: normal inspection, full ROM, normal capillary refill. Absent: tenderness, pedal edema, joint swelling, calf tenderness Back exam: Present: normal inspection Neurological exam: Present: alert, oriented X3, CN II-XII intact Psychiatric exam: Present: normal affect, normal mood Skin exam: Present: warm, dry, intact, normal color. Absent: rash Course Vital Signs 08/07/24 08/07/24 14:25 15:59 Temperature 98.1 F Pulse Rate 82 77 Respiratory 16 18 Rate Blood Pressure 133/78 O2 Sat by Pulse 97 96 Oximetry - Reevaluation(s) Reevaluation #1: 08/07/24 17:30 Records reviewed Reevaluation #2: 08/07/24 17:31 Symptoms unchanged Reevaluation #3: 08/07/24 17:31 Informed of results questions answered Reevaluation #4: Was pt. sent in by a medical professional or institution ([facility], OUTDOOR ILLUMINATING ENGINEER, urgent care, hospital, or snf...) When possible be specific @ -no Did you speak to anyone other than the patient for history (EMS, parent, family, police, friend...)? What history was obtained from this source @ -no Did you review nursing and triage notes (agree or disagree)? Why? @ -agree Are old charts reviewed (outside hosp., previous admission, EMS record, old EKG, old radiological studies, urgent care reports/EKG's, snf records)? Report findings @ -yes Differential Diagnosis (chest pain, altered mental status, abdominal pain women, abdominal pain men, vaginal bleeding, weakness, fever, dyspnea, syncope, headache, dizziness, GI bleed, back pain, seizure, CVA, palpatations, mental health, musculoskeletal)? @ -prior EKG interpreted by me (3pts min.). @ -yes X-rays interpreted by me (1pt min.). @ -yes negative for acute disease CT interpreted by me (1pt min.). @ -no U/S interpreted by me (1pt. min.). @ -no What testing was considered but not performed or refused? (CT, X-rays, U/S, labs)? Why? @ -none What meds were considered but not given or refused? Why? @ -none Did you discuss the management of the patient with other professionals (professionals i.e. [facility], OUTDOOR ILLUMINATING ENGINEER, lab, RT, psych nurse, social work faculty member, application processor, teacher, forest fire management officer, case operator)? Give summary @ -no Was smoking cessation discussed for >3mins.? @ -no Was critical care preformed (if so, how long)? @ -no Were there social determinants of health that impacted care today? How? (Homelessness, low income, unemployed, alcoholism, drug addiction, transportation, low edu. Level, literacy, decrease access to med. care, custodial, rehab)? @ -none Was there de-escalation of care discussed even if they declined (Discuss DNR or withdrawal of care, Hospice)? DNR status @ -no What co-morbidities impacted this encounter? (DM, HTN, Smoking, COPD, CAD, Cancer, CVA, ARF, Chemo, Hep., AIDS, mental health diagnosis, sleep apnea, morbid obesity)? @ -none Was patient admitted / discharged? Hospital course, mention meds given and route, prescriptions, significant lab abnormalities, going to OR and other pertinent info. @ - Undiagnosed new problem with uncertain prognosis? @ -no Drug Therapy requiring intensive monitoring for toxicity (Heparin, Nitro, Insulin, Cardizem)? @ -no Were any procedures done? @ -no Diagnosis/symptom? @ - Acute, or Chronic, or Acute on Chronic? @ -Acute Uncomplicated (without systemic symptoms) or Complicated (systemic symptoms)? @ -Complicated Side effects of treatment? @ -no Exacerbation, Progression, or Severe Exacerbation? @ -exacerbation Poses a threat to life or bodily function? How? (Chest pain, USA, VT, pneumonia, PE, COPD, DKA, ARF, appy, cholecystitis, CVA, Diverticulitis, Homicidal, Suicidal, threat to staff... and all critical care pts) @ -yes Reevaluation #5: Differential Abdominal Pain Women: Appendicitis, Cholecystitis, diverticulosis, ischemic bowel, pancreatitis, hepatitis, UTI, gastroenteritis, AAA, incarcerated hernia, bowel obstruction, constipation, inflammatory bowel, hepatitis, peptic ulcer disease, splenic infarction, perforated viscus, vulvitis, ovarian torsion, PID, kidney stone, placenta abruption, this is not meant to be an all-inclusive list Medical Decision Making - Medical Decision Making 49 female will be discharged home for urinary tract infection. Patient given symptomatic therapy here in the ER feels well can be discharged home - Lab Data Result diagrams: 08/07/24 15:28 08/07/24 15:28 Lab Results 08/07/24 08/07/24 Range/Units 15:28 15:28 WBC 9.6 (3.8-10.6) k/uL RBC 4.21 (3.80-5.40) m/uL Hgb 11.8 (11.4-16.0) gm/dL Hct 37.7 (34.0-46.0) % MCV 89.5 (80.0-100.0) fL MCH 27.9 (25.0-35.0) pg MCHC 31.2 (31.0-37.0) g/dL RDW 14.2 (11.5-15.5) % Plt Count 328 (150-450) k/uL MPV 7.0 Neutrophils % 70 % Lymphocytes % 21 % Monocytes % 6 % Eosinophils % 2 % Basophils % 0 % Neutrophils # 6.7 (1.3-7.7) k/uL Lymphocytes # 2.0 (1.0-4.8) k/uL Monocytes # 0.6 (0-1.0) k/uL Eosinophils # 0.2 (0-0.7) k/uL Basophils # 0.0 (0-0.2) k/uL Hypochromasia Slight Sodium 136 L (137-145) mmol/L Potassium 4.7 (3.5-5.1) mmol/L Chloride 96 L (98-107) mmol/L Carbon Dioxide 32 H (22-30) mmol/L Anion Gap 8 mmol/L BUN 9 (7-17) mg/dL Creatinine 0.77 (0.52-1.04) mg/dL Est GFR (CKD-EPI)AfAm >90 (>60 ml/min/1.73 sqM) Est GFR (CKD-EPI)NonAf >90 (>60 ml/min/1.73 sqM) Glucose 94 (74-99) mg/dL Calcium 9.7 (8.4-10.2) mg/dL Phosphorus 3.9 (2.5-4.5) mg/dL Magnesium 1.4 L (1.6-2.3) mg/dL Total Bilirubin 0.8 (0.2-1.3) mg/dL AST 19 (14-36) U/L ALT 22 (4-34) U/L Alkaline Phosphatase 96 (38-126) U/L Total Protein 7.1 (6.3-8.2) g/dL Albumin 4.3 (3.5-5.0) g/dL Amylase 48 (30-110) U/L Lipase 35 (23-300) U/L - Radiology Data Radiology results: report reviewed (CT abd pain negative for acute disease), i mage reviewed Disposition Clinical Impression: Nausea and vomiting, Chronic abdominal pain, Dysuria, Chronic UTI, UTI (urinary tract infection) Disposition: HOME SELF-CARE Condition: Fair Instructions (If sedation given, give patient instructions): Abdominal Pain (ED) Is patient prescribed a controlled substance at d/c from ED?: No Referrals: [facility] [NON-STAFF] - (Contact office to become established with a primary care provider. ) None,Stated [Primary Care Provider] - 1-2 days Forms: Area PCPs Time of Disposition: 17:30
[2024-08-07 15:50] LABS: Basophils % (A) 0 %; Eosinophils # (A) 0.2 k/uL (0-0.7); Eosinophils % (A) 2 %; HCT 37.7 % (34.0-46.0); HGB 11.8 gm/dL (11.4-16.0); Hypochromasia Slight; Lymphocytes % (A) 21 %; MCH 27.9 pg (25.0-35.0); MCHC 31.2 g/dL (31.0-37.0); MCV 89.5 fL (80.0-100.0); Monocytes # (A) 0.6 k/uL (0-1.0); Monocytes % (A) 6 %; Neutrophils # (A) 6.7 k/uL (1.3-7.7); Neutrophils % (A) 70 %; Platelet Count 328 k/uL (150-450); RBC 4.21 m/uL (3.80-5.40); RDW 14.2 % (11.5-15.5); WBC 9.6 k/uL (3.8-10.6)
[2024-08-07 16:01] VITALS: RESP 18
[2024-08-07] MEDS: SODIUM CHLORIDE 0.9% 1,000 ML IV STA (16:03)
[2024-08-07] MEDS: PANTOPRAZOLE 40 MG/10 ML VIAL IVP STA (16:03)
[2024-08-07] MEDS: HYDROmorphone 1 MG/ML 1 ML SYRINGE IVP STA ×2 (16:04→18:11)
[2024-08-07 16:32] LABS: ALT 22 U/L (4-34); AST 19 U/L (14-36); African American GFR (CKD) >90 (>60 ml/min/1.73 sqM); Albumin 4.3 g/dL (3.5-5.0); Alkaline Phosphatase 96 U/L (38-126); Amylase 48 U/L (30-110); Anion Gap 8 mmol/L; Blood Urea Nitrogen 9 mg/dL (7-17); Calcium 9.7 mg/dL (8.4-10.2); Carbon Dioxide 32 mmol/L (22-30); Chloride 96 mmol/L (98-107); Glucose 94 mg/dL (74-99); Lipase 35 U/L (23-300); Magnesium 1.4 mg/dL (1.6-2.3); Non-African American GFR(CKD) >90 (>60 ml/min/1.73 sqM); Phosphorus 3.9 mg/dL (2.5-4.5); Potassium 4.7 mmol/L (3.5-5.1); Sodium 136 mmol/L (137-145); Total Bilirubin 0.8 mg/dL (0.2-1.3); Total Protein 7.1 g/dL (6.3-8.2)
[2024-08-07] MEDS: ONDANSETRON 4 MG/2 ML VIAL IVP STA (16:52)
--- NOTE | 2024-08-07 17:18 | CT ---
EXAMINATION TYPE: CT abdomen pelvis wo con DATE OF EXAM: 08/07/2024 5:09 PM COMPARISON: CT abdomen pelvis most recent from 06/01/2024. CLINICAL INDICATION: Female, 49 years old with history of abdominal pain; C/O of repetitive rt side k idney infections. TECHNIQUE: Axial CT abdomen pelvis wo con;Sagittal and coronal reformats were created on a separate workstation. Contrast used: mL of , (none if empty) Oral contrast used: without Oral Contrast (none if empty) CT DLP: 703.6 mGycm, Automated exposure control for dose reduction was used. FINDINGS: LOWER CHEST: Unremarkable ABDOMEN LIVER: Unremarkable GALLBLADDER AND BILE DUCTS: The gallbladder is surgically absent. PANCREAS: Unremarkable. SPLEEN: Unremarkable. ADRENAL GLANDS: Unremarkable. KIDNEYS AND URETERS: Mild atrophy changes bilaterally. No evidence of hydronephrosis or renal calculu s. The ureters are unremarkable. PELVIS BLADDER: No evidence for wall thickening or mass given limitations of exam. REPRODUCTIVE: The uterus is surgically absent. ABDOMEN & PELVIS STOMACH AND BOWEL: No evidence of bowel obstruction. Postsurgical changes, possibly from appendectomy . PERITONEUM/RETROPERITONEUM: No evidence of pneumoperitoneum or free fluid. VASCULATURE: No evidence of aortic aneurysm. MUSCULOSKELETAL: No acute osseous abnormalities LYMPH NODES: No gross evidence for lymphadenopathy. SOFT TISSUE/ABDOMINAL WALL: Unremarkable IMPRESSION: The kidneys are relatively unremarkable. No evidence for hydronephrosis or obstructive uropathy. No e vidence for acute abdominal process. [facility], , 08/07/2024 5:15 PM
[2024-08-07] MEDS: ACET/COD 300 MG/30 MG STARTER PACK 6 TAB BTL PO STA (18:10)
[2024-08-07] MEDS: ONDANSETRON 4 MG ODT STARTER PACK 2 TAB BTL PO STA (18:10)
[2024-08-07] MEDS: NITROFURANTOIN MONOHYD/M-CRYST 100 MG CAP PO STA (18:12)
[2024-08-07] MEDS: PROCHLORPERAZINE INJ 10 MG/2 ML VIAL IVP STA (18:13)
[2024-08-07 18:21] VITALS: BP 148/83; PULSE 16
== END 2024-08-07 18:24 | disposition home or self-care (01) ==
LOC: EC 14:16
DX: R30.0 Dysuria (principal); R10.84 Generalized abdominal pain; N39.0 Urinary tract infection, site not specified; Z87.891 Personal history of nicotine dependence; Z88.0 Allergy status to penicillin; Z88.1 Allergy status to other antibiotic agents; Z88.2 Allergy status to sulfonamides; Z88.5 Allergy status to narcotic agent; Z88.6 Allergy status to analgesic agent; Z91.09 Other allergy status, other than to drugs and biological substances; Z91.013 Allergy to seafood; Z91.018 Allergy to other foods; Z91.041 Radiographic dye allergy status; Z88.8 Allergy status to other drugs, medicaments and biological substances
CPT/HCPCS: 36415; 80053; 82150; 83690; 83735; 84100; 85025; 74176; 99285; 96374; 96375; 96376; J0780; J2405; J1171; S0119; J2470

== ENCOUNTER 2024-08-12 21:30 | Inpatient (IN) | payer MEDICARE ==
--- NOTE | 2024-08-12 21:47 | ED ---
SOB HPI - General Chief Complaint: Shortness of Breath Stated Complaint: Chest Pain Time Seen by Provider: 08/12/24 21:34 Source: patient, EMS, RN notes reviewed, old records reviewed Mode of arrival: EMS Limitations: no limitations - History of Present Illness Initial Comments: This is a 49-year-old female to the ER for evaluation of shortness of breath cough congestion and chest pain. Patient has persistent chest pain shortness of breath here in the ER and found to have fever on arrival. MD Complaint: shortness of breath, cough -: days(s) Severity: moderate Severity scale (1-10): 7 Quality: sharp Consistency: constant Improves With: nothing Worsens With: nothing Known History Of: COPD Context: recent URI, recent illness Associated Symptoms: denies other symptoms - Related Data Home Medications Medication Instructions Recorded Confirmed Spironolactone [Aldactone] 25 mg PO DAILY 02/05/17 07/15/24 carvediloL [Coreg] 25 mg PO BID 03/26/21 07/15/24 oxyCODONE-APAP 10-325MG [Percocet 1 tab PO TID 03/16/22 07/15/24 10-325 mg] Citalopram Hydrobromide [CeleXA] 60 mg PO DAILY 01/27/23 07/15/24 Albuterol Inhaler [Ventolin Hfa 2 puff INHALATION RT-QID PRN 04/02/24 07/15/24 Inhaler] Montelukast [Singulair] 10 mg PO HS PRN 04/02/24 07/15/24 Rosuvastatin Calcium [Crestor] 5 mg PO DAILY 04/02/24 07/15/24 rOPINIRole HCL [Requip] 0.25 mg PO HS 04/02/24 07/15/24 traZODone HCL [Desyrel] 50 mg PO HS 04/02/24 07/15/24 Famotidine [Pepcid] 20 mg PO BID 07/15/24 07/15/24 Ipratropium-Albuterol Nebulize 3 ml INHALATION RT-Q4H PRN 07/15/24 07/15/24 [Duoneb 0.5 mg-3 mg/3 ml Soln] Losartan Potassium [Cozaar] 100 mg PO DAILY 07/15/24 07/15/24 Previous Rx's Medication Instructions Recorded Pantoprazole [Protonix] 40 mg PO BID 30 Days #60 tab 06/09/24 Nitrofurantoin Monohyd/M-Cryst 100 mg PO Q12HR #14 cap 08/07/24 [Macrobid] Allergies Allergy/AdvReac Type Severity Reaction Status Date / Time adhesive Allergy Rash/Hives Verified 08/12/24 21:38 amoxicillin Allergy Anaphylaxis Verified 08/12/24 21:38 azithromycin [From Zithromax] Allergy Anaphylaxis Verified 08/12/24 21:38 cephalexin monohydrate Allergy Anaphylaxis Verified 08/12/24 21:38 [From Keflex] ciprofloxacin Allergy Anaphylaxis Verified 08/12/24 21:38 clindamycin Allergy Anaphylaxis Verified 08/12/24 21:38 Iodinated Contrast Media Allergy Anaphylaxis Verified 08/12/24 21:38 [Iodinated Contrast- Oral and IV Dye] ketorolac [From Toradol] Allergy Anaphylaxis Verified 08/12/24 21:38 levofloxacin [From Levaquin] Allergy Rash/Hives Verified 08/12/24 21:38 naproxen Allergy Anaphylaxis Verified 08/12/24 21:38 NSAIDS (Non-Steroidal Allergy Rash/Hives Verified 08/12/24 21:38 Anti-Inflamma orphenadrine [From Norflex] Allergy Anaphylaxis Verified 08/12/24 21:38 pineapple Allergy Anaphylaxis Verified 08/12/24 21:38 shellfish derived Allergy Anaphylaxis Verified 08/12/24 21:38 Sulfa (Sulfonamide Allergy Anaphylaxis Verified 08/12/24 21:38 Antibiotics) sulfamethoxazole Allergy Anaphylaxis Verified 08/12/24 21:38 [From Bactrim] tramadol Allergy Anaphylaxis Verified 08/12/24 21:38 trimethoprim [From Bactrim] Allergy Anaphylaxis Verified 08/12/24 21:38 Review of Systems ROS Statement: Those systems with pertinent positive or pertinent negative responses have been documented in the HPI. ROS Other: All systems not noted in ROS Statement are negative. 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 IBS, cellulitis of the chin, CVA about 1 year ago(no residual), hiatal hernia History of Any Multi-Drug Resistant Organisms: MRSA Date of last positivie culture/infection: 07/2016 MDRO Source:: Chin Past Surgical History: Appendectomy, Section, Cholecystectomy, Hysterectomy, Tubal Ligation Additional Past Surgical History / Comment(s): oral surgery . Pancreas biopsy May 2015. Past Anesthesia/Blood Transfusion Reactions: No Reported Reaction Past Psychological History: ADD/ADHD, Anxiety, Bipolar, Depression Smoking Status: Former smoker Past Alcohol Use History: None Reported Past Drug Use History: Marijuana - Past Family History Father History Unknown: Yes Family Medical History: No Reported History Additional Family Medical History / Comment(s): Pt adopted Mother History Unknown: Yes Additional Family Medical History / Comment(s): Pt adopted General Exam General appearance: alert, in no apparent distress, anxious Head exam: Present: atraumatic, normocephalic, normal inspection Eye exam: Present: normal appearance, PERRL, EOMI. Absent: scleral icterus, conjunctival injection, periorbital swelling ENT exam: Present: normal exam, mucous membranes moist Neck exam: Present: normal inspection. Absent: tenderness, meningismus, lymphadenopathy Respiratory exam: Present: wheezes, accessory muscle use, decreased breath sounds, prolonged expiratory. Absent: respiratory distress, rales, rhonchi, stridor Cardiovascular Exam: Present: regular rate, normal rhythm, tachycardia, normal heart sounds. Absent: systolic murmur, diastolic murmur, rubs, gallop, clicks GI/Abdominal exam: Present: soft, normal bowel sounds. Absent: distended, tenderness, guarding, rebound, rigid Extremities exam: Present: normal inspection, full ROM, normal capillary refill. Absent: tenderness, pedal edema, joint swelling, calf tenderness Back exam: Present: normal inspection Neurological exam: Present: alert, oriented X3, CN II-XII intact Psychiatric exam: Present: normal affect, normal mood Skin exam: Present: warm, dry, intact, normal color. Absent: rash Course Vital Signs 08/12/24 08/12/24 08/12/24 21:33 21:57 22:20 Temperature 100.2 F H Pulse Rate 84 80 83 Respiratory 22 Rate Blood Pressure 152/89 O2 Sat by Pulse 98 Oximetry Medical Decision Making - Medical Decision Making 49 female to the ED co sob, weakness, cp and found to have fever and COPD exacerbation, patient will be admitted for pneumomia - Lab Data Result diagrams: 08/12/24 21:44 08/12/24 21:44 Lab Results 08/12/24 08/12/24 08/12/24 Range/Units 21:44 21:44 21:44 WBC 6.9 (3.8-10.6) k/uL RBC 4.11 (3.80-5.40) m/uL Hgb 11.6 (11.4-16.0) gm/dL Hct 36.8 (34.0-46.0) % MCV 89.6 (80.0-100.0) fL MCH 28.3 (25.0-35.0) pg MCHC 31.6 (31.0-37.0) g/dL RDW 14.3 (11.5-15.5) % Plt Count 272 (150-450) k/uL MPV 7.3 Neutrophils % 51 % Lymphocytes % 36 % Monocytes % 7 % Eosinophils % 3 % Basophils % 0 % Neutrophils # 3.5 (1.3-7.7) k/uL Lymphocytes # 2.5 (1.0-4.8) k/uL Monocytes # 0.5 (0-1.0) k/uL Eosinophils # 0.2 (0-0.7) k/uL Basophils # 0.0 (0-0.2) k/uL PT 11.4 (10.0-12.5) sec INR 1.0 (<1.2) APTT 23.1 (22.0-30.0) sec Sodium 137 (137-145) mmol/L Potassium 4.7 (3.5-5.1) mmol/L Chloride 95 L (98-107) mmol/L Carbon Dioxide 33 H (22-30) mmol/L Anion Gap 9 mmol/L BUN 20 H (7-17) mg/dL Creatinine 0.78 (0.52-1.04) mg/dL Est GFR (CKD-EPI)AfAm >90 (>60 ml/min/1.73 sqM) Est GFR (CKD-EPI)NonAf 90 (>60 ml/min/1.73 sqM) Glucose 99 (74-99) mg/dL Plasma Lactic Acid Srinivas (0.7-2.0) mmol/L Calcium 9.3 (8.4-10.2) mg/dL Magnesium 1.4 L (1.6-2.3) mg/dL Total Bilirubin 0.7 (0.2-1.3) mg/dL AST 26 (14-36) U/L ALT 12 (4-34) U/L Alkaline Phosphatase 57 (38-126) U/L Troponin I (0.000-0.034) ng/mL NT-Pro-B Natriuret Pep 63 pg/mL Total Protein 7.3 (6.3-8.2) g/dL Albumin 4.3 (3.5-5.0) g/dL Influenza Type A (PCR) (Not Detectd) Influenza Type B (PCR) (Not Detectd) RSV (PCR) (Not Detectd) SARS-CoV-2 (PCR) (Not Detectd) 08/12/24 08/12/24 08/12/24 Range/Units 21:44 21:44 21:52 WBC (3.8-10.6) k/uL RBC (3.80-5.40) m/uL Hgb (11.4-16.0) gm/dL Hct (34.0-46.0) % MCV (80.0-100.0) fL MCH (25.0-35.0) pg MCHC (31.0-37.0) g/dL RDW (11.5-15.5) % Plt Count (150-450) k/uL MPV Neutrophils % % Lymphocytes % % Monocytes % % Eosinophils % % Basophils % % Neutrophils # (1.3-7.7) k/uL Lymphocytes # (1.0-4.8) k/uL Monocytes # (0-1.0) k/uL Eosinophils # (0-0.7) k/uL Basophils # (0-0.2) k/uL PT (10.0-12.5) sec INR (<1.2) APTT (22.0-30.0) sec Sodium (137-145) mmol/L Potassium (3.5-5.1) mmol/L Chloride (98-107) mmol/L Carbon Dioxide (22-30) mmol/L Anion Gap mmol/L BUN (7-17) mg/dL Creatinine (0.52-1.04) mg/dL Est GFR (CKD-EPI)AfAm (>60 ml/min/1.73 sqM) Est GFR (CKD-EPI)NonAf (>60 ml/min/1.73 sqM) Glucose (74-99) mg/dL Plasma Lactic Acid Srinivas 1.5 (0.7-2.0) mmol/L Calcium (8.4-10.2) mg/dL Magnesium (1.6-2.3) mg/dL Total Bilirubin (0.2-1.3) mg/dL AST (14-36) U/L ALT (4-34) U/L Alkaline Phosphatase (38-126) U/L Troponin I <0.012 (0.000-0.034) ng/mL NT-Pro-B Natriuret Pep pg/mL Total Protein (6.3-8.2) g/dL Albumin (3.5-5.0) g/dL Influenza Type A (PCR) Not Detected (Not Detectd) Influenza Type B (PCR) Not Detected (Not Detectd) RSV (PCR) Not Detected (Not Detectd) SARS-CoV-2 (PCR) Not Detected (Not Detectd) - EKG Data -: EKG Interpreted by Me (EKG is sinus 79 RI 158 QRS 87 QTc 421) - Radiology Data Radiology results: report reviewed (Chest x-ray is negative for acute disease), image reviewed Disposition Clinical Impression: Atypical chest pain, COPD (chronic obstructive pulmonary disease), Acute exacerbation of chronic obstructive pulmonary disease, Acute exacerbation of chronic obstructive airways disease, Fever Disposition: ADMITTED IP TO THIS HOSP Condition: Fair Is patient prescribed a controlled substance at d/c from ED?: No Referrals: None,Stated [Primary Care Provider] - 1-2 days Time of Disposition: 23:10
[2024-08-12] MEDS: IPRATROPIUM-ALBUTEROL 3 ML NEB INHALATION STA (21:56)
[2024-08-12 22:22] LABS: Basophils % (A) 0 %; Eosinophils # (A) 0.2 k/uL (0-0.7); Eosinophils % (A) 3 %; HCT 36.8 % (34.0-46.0); HGB 11.6 gm/dL (11.4-16.0); Lymphocytes # (A) 2.5 k/uL (1.0-4.8); Lymphocytes % (A) 36 %; MCH 28.3 pg (25.0-35.0); MCHC 31.6 g/dL (31.0-37.0); MCV 89.6 fL (80.0-100.0); Mean Platelet Volume 7.3; Monocytes # (A) 0.5 k/uL (0-1.0); Monocytes % (A) 7 %; Neutrophils # (A) 3.5 k/uL (1.3-7.7); Neutrophils % (A) 51 %; Platelet Count 272 k/uL (150-450); RBC 4.11 m/uL (3.80-5.40); RDW 14.3 % (11.5-15.5); WBC 6.9 k/uL (3.8-10.6)
[2024-08-12 22:23] LABS: Partial Thromboplastin Time 23.1 sec (22.0-30.0); Prothrombin Time 11.4 sec (10.0-12.5)
[2024-08-12 22:30] LABS: ALT 12 U/L (4-34); AST 26 U/L (14-36); African American GFR (CKD) >90 (>60 ml/min/1.73 sqM); Albumin 4.3 g/dL (3.5-5.0); Alkaline Phosphatase 57 U/L (38-126); Anion Gap 9 mmol/L; Blood Urea Nitrogen 20 mg/dL (7-17); Calcium 9.3 mg/dL (8.4-10.2); Carbon Dioxide 33 mmol/L (22-30); Chloride 95 mmol/L (98-107); Glucose 99 mg/dL (74-99); Magnesium 1.4 mg/dL (1.6-2.3); Non-African American GFR(CKD) 90 (>60 ml/min/1.73 sqM); Sodium 137 mmol/L (137-145); Total Bilirubin 0.7 mg/dL (0.2-1.3); Total Protein 7.3 g/dL (6.3-8.2)
[2024-08-12 22:33] LABS: Potassium 4.7 mmol/L (3.5-5.1)
[2024-08-12 22:39] LABS: NT-Pro-B-Type Natriuretic Pept 63 pg/mL
[2024-08-12 22:47] LABS: Influenza A Not Detected (Not Detectd); Influenza B Not Detected (Not Detectd); RSV Not Detected (Not Detectd)
[2024-08-12] MEDS ORDERED: IPRATROPIUM-ALBUTEROL 3 ML NEB INHALATION PRN (23:04)
[2024-08-12] MEDS ORDERED: PNEUMONIA PROTOCOL UTILIZED 1 EACH MISC PO PRN (23:04)
[2024-08-12] MEDS: methylPREDNISolone SOD SUCCI 125 MG/2 ML VIAL IV STA (23:07)
[2024-08-12] MEDS: ONDANSETRON 4 MG/2 ML VIAL IVP STA (23:07)
[2024-08-12] MEDS: ACETAMINOPHEN TAB 500 MG TAB PO STA (23:09)
[2024-08-12] MEDS: SODIUM CHLORIDE 0.9% 1,000 ML IV STA ×2 (23:09)
--- NOTE | 2024-08-12 23:48 | XR ---
EXAM: XR Chest, 2 Views CLINICAL HISTORY: ITS.REASON XR Reason: difficulty breathing TECHNIQUE: Frontal and lateral views of the chest. COMPARISON: 09/24/2022. FINDINGS: Lungs: A 0.5 cm indeterminate nodule is noted at the left lung base. Presumed scarring/atelectasis at the left midlung. Pleural space: Unremarkable. No pneumothorax. Heart: Unremarkable. No cardiomegaly. Mediastinum: Unremarkable. Normal mediastinal contour. Bones/joints: Moderate degenerative disc disease of the thoracic spine. Osteopenia. No acute fracture. Vasculature: Heart is normal in size. Atherosclerotic disease of the aortic knob. Other findings: There is hypoaeration. IMPRESSION: 1. Indeterminate nodule the left lung base near the left CP angle. CT imaging of the chest without contrast is advised for further assessment. 2. Scarring and subsegmental atelectasis at the left midlung.
[2024-08-12] MEDS: MAGNESIUM SULFATE-D5W PMX 1 GM in DEXTROSE/WATER 1 100ML.BAG IVPB ONE (23:54)
[2024-08-12] MEDS: MAGNESIUM OXIDE 400 MG TAB PO STA (23:55)
[2024-08-13] MEDS: SODIUM CHLORIDE 0.9% 1,000 ML IV SCH (00:17)
[2024-08-13] MEDS: oxyCODONE-APAP 10-325MG 1 EACH TAB PO PRN ×2 (01:26→15:11)
[2024-08-13] MEDS: traZODone HCL 50 MG TAB PO SCH (01:26)
[2024-08-13] MEDS: MEROPENEM 2 GM in SODIUM CHLORIDE 0.9% 100 ML IVPB SCH (01:27)
[2024-08-13] MEDS: diphenhydrAMINE 50 MG/ML 1 ML VIAL IVP STA ×2 (01:57→03:52)
[2024-08-13] MEDS: IPRATROPIUM-ALBUTEROL 3 ML NEB INHALATION PRN (02:11)
[2024-08-13] MEDS: NITROGLYCERIN OINT 1 INCH/GM PACKET TOPICAL SCH (02:46)
--- NOTE | 2024-08-13 03:47 | P.HPIM ---
History of Present Illness H&P Date: 08/13/24 Chief Complaint: Shortness of breath Patient is a 49-year-old female with COPD on 2 L home oxygen, heart failure with preserved ejection fraction (echocardiogram last month), fibromyalgia, and rheumatoid arthritis who presented to the ER with chief complaint of shortness of breath and chest pain. Patient states the chest pain started last night and is sharp in nature, centralized with radiation to the right arm and in between the shoulder blades. Pain worsens with deep breathing. Patient states she was laying in bed when at the onset of the pain. She states this started at a 3 then became a 10 out of 10 and that is when she called EMS. Currently she rates the pain a 7 out of 10. Patient is also endorsing shortness of breath which has been progressively getting worse. Patient reports that her was recently hospitalized for pneumonia. Patient also reports history of heart failure, but denies any leg swelling at this time. Patient also endorses recurrent UTIs and is complaining of abdominal pain and dysuria. Patient denies any use of blood thinners. She denies fevers, chills, nausea, vomiting, diarrhea. Vitals on admission temperature 100.2 heart rate 84 bpm, respiratory rate 22, blood pressure 152/89, O2 saturation 98% on 2 L EKG independently interpreted as sinus rhythm with ventricular rate of 79 bpm and QTc of 421 ms, poor R wave progression CXR shows indeterminate nodule in the left lung base near the left CP angle, scarring and subsegmental atelectasis of the left midlung Labs on admission show WBC 6.9, hemoglobin 11.6, MCV 89.6, platelets 272. PT 11.4, INR 1, PTT 23.1. Sodium 137, potassium 4.7, chloride 95, bicarb 33, BUN 20, creatinine 0.78, glucose 99. Calcium 9.3, magnesium 1.4. LFTs unrema rkable. Troponin negative. NT proBNP normal. Cepheid was negative. Review of systems: Pertinent positives and negatives as discussed in HPI, a complete review of systems was performed and all other systems are negative. Allergies: PCP: looking for PCP Social history: Tobacco: quit smoking in May Alcohol: none Recreational drugs: gummies once in a while for Travel: none Sick contacts: was just sick with PNA Physical examination: Vital signs reviewed General: nontoxic, mild distress, appears at stated age, morbidly obese, audible wheezing Derm: warm, dry, intact Head: atraumatic, normocephalic, symmetric Eyes: anicteric sclera Mouth: no lip lesion, mucus membranes moist Cardiovascular: S1 S2 reg, no murmur Lungs: Bilateral inspiratory and expiratory wheezing Abdominal: soft, nondistended, some tenderness to palpation noted in the lower quadrants Extremities: No cyanosis, clubbing, or pedal edema. Neuro: Alert, Oriented to person, time and place, Gross neurological examination did not reveal any focal deficits. Cranial nerves II to XII grossly intact. Bilateral upper and lower extremity muscle strength intact and sensation intact. Psych: well appearing, appropriate affect Assessment/Plan: Patient is a 49-year-old female with COPD, heart failure with preserved ejection fraction, fibromyalgia and rheumatoid arthritis who presented to the ER with chief complaint of shortness of breath and chest pain. Case was discussed with the ER physician and patient will be admitted to internal medicine service for further management. Active: Acute on chronic hypoxic respiratory failure Acute COPD exacerbation Currently on 2 L nasal cannula Wean oxygen as tolerated to maintain oxygen saturations of greater than 94% DuoNebs every 2 hours as needed Consult pulmonology Check procalcitonin levels Patient is severely allergic to Zithromax Patient was started on meropenem in the ER, but it was discontinued due to allergic reaction with patient reporting upper airway compromise Consider ceftriaxone 2 g daily, patient states she has tolerated in the past Follow-up blood cultures Follow-up sputum culture Follow-up Legionella antigen Urinary complaints Follow-up UA and initiate antibiotics if needed Hypomagnesemia Repleted per protocol Will continue to monitor Heart failure with preserved ejection fraction, not currently exacerbated Continue to monitor volume status May resume cardiac medications once confirmed Daily weight Chronic: Hypertension Hyperlipidemia GERD Fibromyalgia Rheumatoid arthritis May resume home medications once confirmed F: NS @100 mL/h E: Replete as needed N: Regular diet A: As tolerated DVT prophylaxis: Lovenox 40 mg subcu daily The patient is admitted with an anticipated more than 2 midnight stay for evaluation of COPD exacerbation CODE STATUS: Full code Discussed with: Patient Anticipated discharge place: Pending clinical course Past Medical History Past Medical History: Heart Failure, COPD, CVA/TIA, Fibromyalgia, Hypertension, Pneumonia, Rheumatoid Arthritis (RA), Seizure Disorder, Syncope Additional Past Medical History / Comment(s): 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 IBS, cellulitis of the chin, CVA about 1 year ago(no residual), hiatal hernia History of Any Multi-Drug Resistant Organisms: MRSA Date of last positivie culture/infection: 07/2016 MDRO Source:: Chin Past Surgical History: Appendectomy, Section, Cholecystectomy, Hysterectomy, Tubal Ligation Additional Past Surgical History / Comment(s): oral surgery . Pancreas biopsy May 2015. Past Anesthesia/Blood Transfusion Reactions: No Reported Reaction Past Psychological History: ADD/ADHD, Anxiety, Bipolar, Depression Smoking Status: Former smoker Past Alcohol Use History: None Reported Past Drug Use History: Marijuana - Past Family History Father History Unknown: Yes Family Medical History: No Reported History Additional Family Medical History / Comment(s): Pt adopted Mother History Unknown: Yes Additional Family Medical History / Comment(s): Pt adopted Medications and Allergies Home Medications Medication Instructions Recorded Confirmed Type Spironolactone [Aldactone] 25 mg PO DAILY 02/05/17 07/15/24 History carvediloL [Coreg] 25 mg PO BID 03/26/21 07/15/24 History oxyCODONE-APAP 10-325MG [Percocet 1 tab PO TID 03/16/22 07/15/24 History 10-325 mg] Citalopram Hydrobromide [CeleXA] 60 mg PO DAILY 01/27/23 07/15/24 History Albuterol Inhaler [Ventolin Hfa 2 puff INHALATION RT-QID PRN 04/02/24 07/15/24 History Inhaler] Montelukast [Singulair] 10 mg PO HS PRN 04/02/24 07/15/24 History Rosuvastatin Calcium [Crestor] 5 mg PO DAILY 04/02/24 07/15/24 History rOPINIRole HCL [Requip] 0.25 mg PO HS 04/02/24 07/15/24 History traZODone HCL [Desyrel] 50 mg PO HS 04/02/24 07/15/24 History Pantoprazole [Protonix] 40 mg PO BID 30 Days #60 tab 06/09/24 07/15/24 Rx Famotidine [Pepcid] 20 mg PO BID 07/15/24 07/15/24 History Ipratropium-Albuterol Nebulize 3 ml INHALATION RT-Q4H PRN 07/15/24 07/15/24 History [Duoneb 0.5 mg-3 mg/3 ml Soln] Losartan Potassium [Cozaar] 100 mg PO DAILY 07/15/24 07/15/24 History Nitrofurantoin Monohyd/M-Cryst 100 mg PO Q12HR #14 cap 08/07/24 Rx [Macrobid] Allergies Allergy/AdvReac Type Severity Reaction Status Date / Time adhesive Allergy Rash/Hives Verified 08/12/24 21:38 amoxicillin Allergy Anaphylaxis Verified 08/12/24 21:38 azithromycin [From Zithromax] Allergy Anaphylaxis Verified 08/12/24 21:38 cephalexin monohydrate Allergy Anaphylaxis Verified 08/12/24 21:38 [From Keflex] ciprofloxacin Allergy Anaphylaxis Verified 08/12/24 21:38 clindamycin Allergy Anaphylaxis Verified 08/12/24 21:38 Iodinated Contrast Media Allergy Anaphylaxis Verified 08/12/24 21:38 [Iodinated Contrast- Oral and IV Dye] ketorolac [From Toradol] Allergy Anaphylaxis Verified 08/12/24 21:38 levofloxacin [From Levaquin] Allergy Rash/Hives Verified 08/12/24 21:38 meropenem Allergy Wheezing Verified 08/13/24 02:14 naproxen Allergy Anaphylaxis Verified 08/12/24 21:38 NSAIDS (Non-Steroidal Allergy Rash/Hives Verified 08/12/24 21:38 Anti-Inflamma orphenadrine [From Norflex] Allergy Anaphylaxis Verified 08/12/24 21:38 pineapple Allergy Anaphylaxis Verified 08/12/24 21:38 shellfish derived Allergy Anaphylaxis Verified 08/12/24 21:38 Sulfa (Sulfonamide Allergy Anaphylaxis Verified 08/12/24 21:38 Antibiotics) sulfamethoxazole Allergy Anaphylaxis Verified 08/12/24 21:38 [From Bactrim] tramadol Allergy Anaphylaxis Verified 08/12/24 21:38 trimethoprim [From Bactrim] Allergy Anaphylaxis Verified 08/12/24 21:38 Physical Exam Vitals: Vital Signs Temp Pulse Resp BP Pulse Ox 08/13/24 02:11 84 08/13/24 01:57 84 24 172/105 96 08/12/24 23:40 98.8 F 08/12/24 22:20 77 14 148/84 99 08/12/24 21:57 80 08/12/24 21:33 100.2 F H 84 22 152/89 98 Intake and Output 08/12/24 08/12/24 08/13/24 14:59 22:59 06:59 Other: Weight 179 kg Results CBC & Chem 7: 08/12/24 21:44 08/12/24 21:44 Labs: Abnormal Lab Results - Last 24 Hours (Table) 08/12/24 Range/Units 21:44 Chloride 95 L (98-107) mmol/L Carbon Dioxide 33 H (22-30) mmol/L BUN 20 H (7-17) mg/dL Magnesium 1.4 L (1.6-2.3) mg/dL
[2024-08-13] MEDS: methylPREDNISolone SOD SUCCI 125 MG/2 ML VIAL IV STA (03:52)
[2024-08-13 06:14] LABS: Appearance,Urine Clear (Clear); Bilirubin,Urine Negative (Negative); Blood,Urine Negative (Negative); Budding Yeast,Urine Rare /hpf; Color,Urine Yellow; Glucose,Urine (UA) Trace (Negative); Hyaline Casts,Urine 11 /lpf (0-2); Ketones,Urine 1+ (Negative); Leukocyte Esterase,Urine Moderate (Negative); Mucus,Urine Few /hpf; Nitrite,Urine Negative (Negative); PH, Urine 5.5 (5.0-8.0); Protein,Urine Trace (Negative); RBC,Urine 3 /hpf (0-5); Specific Gravity,Urine 1.041 (1.001-1.035); Squamous Epithelial Cell,Urine 1 /hpf (0-4); Triple Phosphate Crystal,Urine Rare /hpf; WBC,Urine 10 /hpf (0-5)
--- NOTE | 2024-08-13 06:25 | P.CNPUL ---
History of Present Illness Consult date: 08/13/24 Requesting physician: Valdez Olivares Reason for consult: COPD Chief complaint: Shortness of breath, chest pain, fever History of present illness: Patient is a 49-year-old female with past medical history significant for hypertension, hyperlipidemia, heart failure, GERD, fibromyalgia, former tobacco smoker, chronic oxygen dependence, COPD, among other things. Presented to the emergency department late last night complaining chiefly of shortness of breath, chest congestion, and cough. Found to be febrile with a temperature of 100.2 F in the ED. Chest x-ray did not show any focal infiltrates or evidence of pneumonia. Indeterminate subcentimeter nodule of the left lung base near the left CP angle. Scarring and subsegmental atelectasis in the left midlung. CBC unremarkable for leukocytosis. CMP: Sodium 137, potassium 4.7, chloride 95, serum bicarb 33, BUN 20, creatinine 0.78, glucose 99. Normal saline infusing at 130 mL/h. Magnesium 1.4. LFTs unremarkable. Troponin less than 0.012. NT proBNP low at 63. EKG: Normal sinus rhythm, rate 79 bpm, no acute ischemic changes. Negative for influenza, RSV, COVID. She has many medication intolerances/allergies listed. Patient was placed on meropenem in the ED. Apparently, may have had a reaction to the meropenem earlier and this has been discontinued. She is currently being evaluated in room 17. States she had some mouth and throat burning, which has since resolved with stopping the antibiotic. No significant airway compromise or upper airway stridor. No angioedema or rash or itching. Was given 100 mg of IV Benadryl. She is resting comfortably on 2 L/min nasal cannula. Reporting some progressively worsening shortness of breath, wheezing, and chest congestion over the last 2 days. Minimally productive cough, with yellow sputum production. Reports intermittent substernal chest pain, radiating to the right arm and shoulder blades, especially noted with coughing or deep breathing. States that her was sick with pneumonia recently. She reportedly quit smoking May 18 of this year. Another concern, is burning with urination and right flank pain. States the symptoms have been ongoing for several weeks. Did not seek outpatient treatment. States she took Macrobid that she had at home. Most recent vital signs: Temperature 98.8 F, heart rate 84 bpm, blood pressure 172/105 mmHg, SpO2 94% on 2 L/min nasal cannula. Review of Systems Constitutional: Reports chills, Reports chronic pain, Reports fatigue, Reports fever, Denies poor appetite, Denies weight gain, Denies weight loss Ears, nose, mouth and throat: Denies headache, Denies nasal congestion, Denies nasal discharge, Denies post-nasal drip, Denies sinus pain, Denies sinus pressure, Denies swelling in throat, Denies sore throat Cardiovascular: Reports chest pain, Reports dyspnea on exertion, Reports palpitations, Reports shortness of breath, Denies leg edema, Denies lightheadedness, Denies orthopnea, Denies paroxysmal nocturnal dyspnea, Denies syncope Respiratory: Reports as per HPI Gastrointestinal: Reports diarrhea, Reports nausea, Denies change in bowel habits, Denies hematochezia, Denies melena, Denies vomiting Genitourinary: Reports dysuria, Reports flank pain, Reports urinary frequency, Denies hematuria Musculoskeletal: Denies limitation of motion Integumentary: Denies color changes, Denies pruritus, Denies rash Neurological: Denies seizures, Denies syncope Psychiatric: Reports anxiety, Reports depression, Denies suicidal ideation Past Medical History Past Medical History: Heart Failure, COPD, CVA/TIA, Fibromyalgia, Hypertension, Pneumonia, Rheumatoid Arthritis (RA), Seizure Disorder, Syncope Additional Past Medical History / Comment(s): 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 IBS, cellulitis of the chin, CVA about 1 year ago(no residual), hiatal hernia History of Any Multi-Drug Resistant Organisms: MRSA Date of last positivie culture/infection: 07/2016 MDRO Source:: Chin Past Surgical History: Appendectomy, Section, Cholecystectomy, Hysterectomy, Tubal Ligation Additional Past Surgical History / Comment(s): oral surgery . Pancreas biopsy May 2015. Past Anesthesia/Blood Transfusion Reactions: No Reported Reaction Past Psychological History: ADD/ADHD, Anxiety, Bipolar, Depression Smoking Status: Former smoker Past Alcohol Use History: None Reported Past Drug Use History: Marijuana - Past Family History Father History Unknown: Yes Family Medical History: No Reported History Additional Family Medical History / Comment(s): Pt adopted Mother History Unknown: Yes Additional Family Medical History / Comment(s): Pt adopted Medications and Allergies Home Medications Medication Instructions Recorded Confirmed Type Spironolactone [Aldactone] 25 mg PO DAILY 02/05/17 08/13/24 History carvediloL [Coreg] 25 mg PO BID 03/26/21 08/13/24 History oxyCODONE-APAP 10-325MG [Percocet 1 tab PO TID 03/16/22 08/13/24 History 10-325 mg] Citalopram Hydrobromide [CeleXA] 60 mg PO DAILY 01/27/23 08/13/24 History Albuterol Inhaler [Ventolin Hfa 2 puff INHALATION RT-QID PRN 04/02/24 08/13/24 History Inhaler] Montelukast [Singulair] 10 mg PO HS PRN 04/02/24 08/13/24 History Rosuvastatin Calcium [Crestor] 5 mg PO DAILY 04/02/24 08/13/24 History rOPINIRole HCL [Requip] 0.25 mg PO HS 04/02/24 08/13/24 History traZODone HCL [Desyrel] 50 mg PO HS 04/02/24 08/13/24 History Pantoprazole [Protonix] 40 mg PO BID 30 Days #60 tab 06/09/24 08/13/24 Rx Famotidine [Pepcid] 20 mg PO BID 07/15/24 08/13/24 History Ipratropium-Albuterol Nebulize 3 ml INHALATION RT-Q4H PRN 07/15/24 08/13/24 History [Duoneb 0.5 mg-3 mg/3 ml Soln] Losartan Potassium [Cozaar] 100 mg PO DAILY 07/15/24 08/13/24 History Nitrofurantoin Monohyd/M-Cryst 100 mg PO BID 08/13/24 08/13/24 History [Macrobid] levETIRAcetam [Keppra] 500 mg PO BID 08/13/24 08/13/24 History Allergies Allergy/AdvReac Type Severity Reaction Status Date / Time adhesive Allergy Rash/Hives Verified 08/13/24 10:09 amoxicillin Allergy Anaphylaxis Verified 08/13/24 10:09 azithromycin [From Zithromax] Allergy Anaphylaxis Verified 08/13/24 10:09 cephalexin monohydrate Allergy Anaphylaxis Verified 08/13/24 10:09 [From Keflex] ciprofloxacin Allergy Anaphylaxis Verified 08/13/24 10:09 clindamycin Allergy Anaphylaxis Verified 08/13/24 10:09 Iodinated Contrast Media Allergy Anaphylaxis Verified 08/13/24 10:09 [Iodinated Contrast- Oral and IV Dye] ketorolac [From Toradol] Allergy Anaphylaxis Verified 08/13/24 10:09 levofloxacin [From Levaquin] Allergy Rash/Hives Verified 08/13/24 10:09 meropenem Allergy Wheezing Verified 08/13/24 10:09 naproxen Allergy Anaphylaxis Verified 08/13/24 10:09 NSAIDS (Non-Steroidal Allergy Rash/Hives Verified 08/13/24 10:09 Anti-Inflamma orphenadrine [From Norflex] Allergy Anaphylaxis Verified 08/13/24 10:09 pineapple Allergy Anaphylaxis Verified 08/13/24 10:09 shellfish derived Allergy Anaphylaxis Verified 08/13/24 10:09 Sulfa (Sulfonamide Allergy Anaphylaxis Verified 08/13/24 10:09 Antibiotics) sulfamethoxazole Allergy Anaphylaxis Verified 08/13/24 10:09 [From Bactrim] tramadol Allergy Anaphylaxis Verified 08/13/24 10:09 trimethoprim [From Bactrim] Allergy Anaphylaxis Verified 08/13/24 10:09 Physical Exam Vitals: Vital Signs Temp Pulse Resp BP Pulse Ox 08/13/24 02:22 84 08/13/24 02:11 84 08/13/24 01:57 84 24 172/105 96 08/12/24 23:40 98.8 F 08/12/24 22:20 77 14 148/84 99 08/12/24 21:57 80 08/12/24 21:33 100.2 F H 84 22 152/89 98 Intake and Output 08/12/24 08/12/24 08/13/24 14:59 22:59 06:59 Other: Weight 179 kg GENERAL EXAM: Alert, 48-year-old obese white female, comfortable in no apparent distress. HEAD: Normocephalic and atraumatic EYES: Normal reaction of pupils, equal size. NOSE: Clear with pink turbinates. THROAT: No erythema or exudates. NECK: No masses, no JVD. No upper airway stridor. CHEST: No chest wall deformity. LUNGS: Equal air entry with faint expiratory wheezes heard throughout. No crackles, rhonchi, focal dullness. On 2 L/min nasal cannula. SpO2 94%. No conversational dyspnea or accessory muscle use.. CVS: S1 and S2 normal with no audible murmur, regular rhythm. No extra heart sounds ABDOMEN: No hepatosplenomegaly, active bowel sounds, no guarding or rigidity. SPINE: No scoliosis or deformity. Positive CVA tenderness on the right SKIN: No rashes, wheals, erythema CENTRAL NERVOUS SYSTEM: No focal deficits, tone is normal in all 4 extremities. EXTREMITIES: There is no peripheral edema, clubbing, or cyanosis. Peripheral pulses are intact. Results - Laboratory Findings CBC and BMP: 08/12/24 21:44 08/12/24 21:44 PT/INR, D-dimer PT 11.4 sec (10.0-12.5) 08/12/24 21:44 INR 1.0 (<1.2) 08/12/24 21:44 Abnormal lab findings: Abnormal Labs 08/12/24 21:44 Chloride 95 L Carbon Dioxide 33 H BUN 20 H Magnesium 1.4 L - Diagnostic Findings Chest x-ray: image reviewed Assessment and Plan Assessment: Acute COPD exacerbation, chest x-ray does not show any acute cardiopulmonary process, chronic left midlung/lingular atelectasis. Viral screen negative for influenza, RSV, COVID Acute on chronic dyspnea, secondary to above Chronic hypoxemic respiratory failure, normally utilizes 2 L/min nasal cannula at bedtime Atypical chest pain History of GERD with esophagitis Fibromyalgia Hypertension History of hyperlipidemia History of seizure disorder History of CVA/TIA History of irritable bowel disease History of chronic pancreatic insufficiency/fibrosis History of nephrolithiasis History of chronic migraines History of rheumatoid arthritis Multiple medication allergies, reportedly had a possible reactions of meropenem in the ED Former tobacco smoker, reportedly quit smoking May this year Plan: Patient's medications, labs, imaging reviewed Continue supplemental oxygen maintain oxygen saturation of 92% or greater No signs of anaphylaxis or upper airway compromise. Meropenem was discontinued. Start combination of DuoNebs [id number], Symbicort inhaler, and IV Solu-Me drol Chest x-ray reviewed, no acute cardiopulmonary process noted. No focal infiltrates or evidence of pneumonia. Isolated fever noted in the ED Check procalcitonin Check urinalysis GI prophylaxis: Pepcid We will continue to follow I have personally seen and examined the patient, performed the documentation and the assessment and plan as written. Number of minutes spent on the visit:20 This is a joint evaluation that was done along with the nurse practitioner. 49-year-old female patient, obese with a body mass index of 77, presented to the hospital because of an acute COPD exacerbation. The viral screen has been negative and the patient is being treated for an acute COPD exacerbation for now. She she also has some atypical chest wall pain. Comorbidities are multiple. She is a smoker and she has history of seizure disorder along with COPD and chronic hypoxic respiratory failure. She has previous history of rheumatoid arthritis, polysubstance abuse, CVA, fibromyalgia, migraines and history of kidney stones. The labs from this current admission are within normal limits. She has chronic metabolic alkalosis consistent with chronic hypercapnic respiratory failure. UA was abnormal awaiting cultures. Currently, the patient is on DuoNeb updrafts, IV Solu-Medrol, and she is also on oxygen at 3 L/min nasal cannula. . She is currently on a combination of bronchodilators and steroids. Chest x-ray reveals no evidence of any airspace disease or focal pulmonary infiltrates. Her previous sputum analysis from May 2024 was positive for Pseudomonas aeruginosa. Nevertheless, currently, there is no indication for any ongoing infection and the procalcitonin level is 0.053 agree on the current management. Titrate oxygen flow. Continue Symbicort. Continue DuoNeb of chest. Will follow. Time with Patient: Greater than 30
[2024-08-13] MEDS: SYMBICORT 160-4.5 MCG INHALER INHALATION SCH (08:12)
[2024-08-13] MEDS: ALBUTEROL NEBULIZED 2.5 MG/3 ML INHALATION SCH (08:12)
--- NOTE | 2024-08-13 09:00 | XR ---
EXAMINATION TYPE: XR chest 2V DATE OF EXAM: 08/13/2024 8:55 AM COMPARISON: Chest radiographs from 08/12/2024 TECHNIQUE: XR chest 2V Frontal and lateral views of the chest. CLINICAL INDICATION:Female, 49 years old with history of pneumonia; FINDINGS: Lungs/Pleura: There is no evidence of pleural effusion, focal consolidation, or pneumothorax. Previo usly questioned left lung base nodule is not appreciated on today's exam. Pulmonary vascularity: Unremarkable. Heart/mediastinum: Cardiomediastinal silhouette is unremarkable. Musculoskeletal: No acute osseous pathology. IMPRESSION: No acute cardiopulmonary disease/process. [facility], , 08/13/2024 8:58 AM
[2024-08-13] MEDS: ENOXAPARIN 60 MG/0.6 ML SYRINGE SQ SCH (09:12)
[2024-08-13] MEDS: FAMOTIDINE 20 MG TAB PO SCH ×2 (09:12→21:06)
[2024-08-13] MEDS: ALPRAZolam 0.5 MG TAB PO PRN (12:43)
[2024-08-13] MEDS: methylPREDNISolone SOD SUCCI 125 MG/2 ML VIAL IV SCH (12:43)
--- NOTE | 2024-08-13 13:06 | P.PN ---
Subjective Progress Note Date: 08/13/24 Hospital Course: A 49-year-old female with pulmonary history of HTN, HLD, CHF, GERD, fibromyalg ia, chronic hypoxic respiratory failure secondary to COPD, RA, seizure, who presented to the ED with chest congestion cough, SOB, cough, right sided back pain started at rest. Vitals on admission temperature 100.2 heart rate 84 bpm, respiratory rate 22, blood pressure 152/89, O2 saturation 98% on 2 L EKG independently interpreted as sinus rhythm with ventricular rate of 79 bpm and QTc of 421 ms, poor R wave progression CXR shows indeterminate nodule in the left lung base near the left CP angle, scarring and subsegmental atelectasis of the left midlung Labs on admission show WBC 6.9, hemoglobin 11.6, MCV 89.6, platelets 272. PT 11.4, INR 1, PTT 23.1. Sodium 137, potassium 4.7, chloride 95, bicarb 33, BUN 20, creatinine 0.78, glucose 99. Calcium 9.3, magnesium 1.4. LFTs unremarkable. Troponin negative. NT proBNP normal. Cepheid was negative. Patient was started on meropenem in the ED, she has history of multiple antibiotics allergy, reported mild antral burning that resolved after antibiotic was stopped, no airway compromise, stridor, angioedema. Received IV Benadryl. For management of acute COPD exacerbation, pulmonology is consulted. Patient started on breathing treatments, IV Solu-Medrol, no antibiotics indicated, procalcitonin negative, UA negative for UTI. Pertinent Imaging: Chest x-ray with no significant changes, no acute process Subjective: Patient feels short of breath, continues to complain of right-sided back pain, she says that it comes and goes, worse with movement Pertinent positives and negatives as discussed above, a complete review of systems was performed and all other systems are negative. Vitals Signs Reviewed. General: [nontoxic], [no distress], [appears at stated age], obese, in respiratory distress Derm: [warm], [dry] Head: [atraumatic], [normocephalic], [symmetric] Eyes: [EOMI], [no lid lag], [anicteric sclera] Mouth: [no lip lesion], [mucus membranes moist] Cardiovascular: [S1S2 reg], [no murmur] Lungs: Diffuse wheezing, cough during the exam Abdominal: [soft], [ nontender to palpation], [no guarding], [no appreciable organomegaly] Musculoskeletal: Diffuse tenderness due to fibromyalgia, right-sided tenderness Ext: [no gross muscle atrophy], [no edema], [no contractures] Neuro: [ CN II-XI grossly intact], [no focal neuro deficits] Psych: [Alert], [oriented], [appropriate affect] Data Reviewed Today: Pertinent Labs: UA negative for UTI, procalcitonin negative Assessment and Plan: Acute on chronic hypoxic respiratory failure secondary to acute COPD exacerbation : Continue supplemental oxygen Pulmonology following Continue breathing treatments, Solu-Medrol Follow-up blood, sputum cultures, Legionella antigen -Discontinue IV fluids, patient has adequate oral intake HFpEF, not in exacerbation -Continue home medications Hypomagnesemia: Repleted, recheck in a.m. Recent history of UTI Right-sided flank pain -No signs of UTI on UA -CT abdomen pelvis from 08/07/2024 showed unremarkable kidneys with no evidence of hydronephrosis or obstructive uropathy, at that time she was seen in the ER for similar complaints -CT abdomen 06/01/24: No suspicious abnormality in the right upper quadrant to account for pain -No repeat imaging indicated Hypertension Hyperlipidemia GERD Fibromyalgia Rheumatoid arthritis History of seizure History of nephrolithiasis -Resumed home medications DVT ppx: Lovenox Code status: Full code Anticipated discharge place: D Anticipated discharge time: Pending clinical course Objective - Vital Signs Vital signs: Vital Signs Temp 98.1 F 08/13/24 07:37 Pulse 90 08/13/24 11:16 Resp 17 08/13/24 07:37 BP 149/87 08/13/24 10:02 Pulse Ox 95 08/13/24 10:02 FiO2 Intake & Output 08/12/24 08/13/24 08/13/24 18:59 06:59 18:59 Intake Total 1200 Balance 1200 Weight 179 kg 85.68 kg Intake: Oral 1200 - Labs CBC & Chem 7: 08/12/24 21:44 08/12/24 21:44 Labs: Abnormal Lab Results - Last 24 Hours (Table) 08/12/24 08/13/24 Range/Units 21:44 05:30 Chloride 95 L (98-107) mmol/L Carbon Dioxide 33 H (22-30) mmol/L BUN 20 H (7-17) mg/dL Magnesium 1.4 L (1.6-2.3) mg/dL Ur Specific [place] 1.041 H (1.001-1.035) Urine Protein Trace H (Negative) Urine Glucose (UA) Trace H (Negative) Urine Ketones 1+ H (Negative) Ur Leukocyte Esterase Moderate H (Negative) Urine WBC 10 H (0-5) /hpf Urine WBC Clumps Rare H (None) /hpf Triple Phos Crystals Rare H (None) /hpf Hyaline Casts 11 H (0-2) /lpf Urine Mucus Few H (None) /hpf Urine Yeast (Budding) Rare H (None) /hpf
[2024-08-13] MEDS: CITALOPRAM HYDROBROMIDE 20 MG TAB PO SCH (13:18)
[2024-08-13] MEDS: LIDOCAINE 4% PATCH TOPICAL SCH (15:11)
[2024-08-13] MEDS: carvediloL 12.5 MG TAB PO SCH (17:37)
[2024-08-13] MEDS: MONTELUKAST 10 MG TAB PO PRN (21:05)
[2024-08-13] MEDS: PANTOPRAZOLE 40 MG TABLET PO SCH (21:05)
[2024-08-13] MEDS: levETIRAcetam 500 MG TAB PO SCH (21:06)
[2024-08-14 07:48] LABS: Glucose,Whole Blood 215 mg/dL (70-110)
[2024-08-14] MEDS ORDERED: DEXTROSE 50% SYRINGE 50 ML IVP PRN ×2 (07:52)
[2024-08-14 08:48] LABS: Basophils # (A) 0.01 X 10*3/uL (0.00-0.10); Basophils % (A) 0.1 %; Eosinophils # (A) 0 X 10*3/uL (0.04-0.35); Eosinophils % (A) 0 %; HCT 34.1 % (37.2-46.3); HGB 10.4 g/dL (12.0-15.0); Lymphocytes # (A) 0.61 X 10*3/uL (0.90-5.00); Lymphocytes % (A) 8.3 %; MCHC 30.5 g/dL (32.0-37.0); MCV 91.7 FL (80.0-97.0); Magnesium 1.6 mg/dL (1.5-2.4); Mean Platelet Volume 10.2 FL (9.5-12.2); Monocytes # (A) 0.25 X 10*3/uL (0.20-1.00); Monocytes % (A) 3.4 %; NRBC Per 100 WBC 0 X 10*3/uL (0.00-0.01); Neutrophils # (A) 6.39 X 10*3/uL (1.80-7.70); Neutrophils % (A) 87.5 %; Platelet Count 247 X 10*3/uL (140-440); RBC 3.72 X 10*6/uL (4.10-5.20); RDW 13.5 % (11.5-14.5); WBC 7.31 X 10*3/uL (4.50-10.00)
[2024-08-14] MEDS: LOSARTAN 50 MG TAB PO SCH (09:18)
[2024-08-14] MEDS: ATORVASTATIN 10 MG TAB PO SCH (09:18)
[2024-08-14] MEDS: INSULIN ASPART (NovoLOG) 100 UNIT/ML VIAL SQ SCH (09:20)
[2024-08-14] MEDS: SPIRONOLACTONE 25 MG TAB PO SCH (09:27)
--- NOTE | 2024-08-14 12:00 | P.PN ---
Subjective Progress Note Date: 08/14/24 Principal diagnosis: A 49-year-old female with pulmonary history of HTN, HLD, CHF, GERD, fibromyalgia, chronic hypoxic respiratory failure secondary to COPD, RA, seizure, who presented to the ED with chest congestion cough, SOB, cough, right sided back pain started at rest. Vitals on admission temperature 100.2 heart rate 84 bpm, respiratory rate 22, blood pressure 152/89, O2 saturation 98% on 2 L EKG independently interpreted as sinus rhythm with ventricular rate of 79 bpm and QTc of 421 ms, poor R wave progression CXR shows indeterminate nodule in the left lung base near the left CP angle, scarring and subsegmental atelectasis of the left midlung. started on iv methylprednisone. meropenam d/mayur as developed an allergic reaction. Patient seen and examined. She reports that despite being 49 she has a significant past medical history of tobacco use. She reports that she has used 2 to 3 packs/day and had ceased tobacco use last year. Reports she still feels short of breath does report anxiety Objective - Vital Signs Vital signs: Vital Signs Temp 97.8 F 08/14/24 07:32 Pulse 74 08/14/24 09:38 Resp 18 08/14/24 09:38 BP 177/96 08/14/24 07:32 Pulse Ox 97 08/14/24 09:27 FiO2 Intake & Output 08/13/24 08/14/24 08/14/24 18:59 06:59 18:59 Intake Total 2760 540 Balance 2760 540 Weight 85.68 kg 86.8 kg Intake: Oral 2760 540 Other: Voiding Method Toilet Toilet # Voids 2 1 - Exam General: [nontoxic], [no distress], [appears at stated age], obese, female Derm: [warm], [dry] Head: [atraumatic], [normocephalic], [symmetric] Eyes: [EOMI], [no lid lag], [anicteric sclera] Mouth: [no lip lesion], [mucus membranes moist] Cardiovascular: [S1S2 reg], [no murmur] Lungs: Diffuse wheezing, cough during the exam on 3 L nasal cannula Abdominal: [soft], [ nontender to palpation], [no guarding], [no appreciable organomegaly] Musculoskeletal: Diffuse MSK pain Ext: [no gross muscle atrophy], [no edema], [no contractures] Neuro: Moving all extremity spontaneously Psych: [Alert], [oriented], [appropriate affect] - Labs CBC & Chem 7: 08/14/24 04:23 08/12/24 21:44 Labs: Abnormal Lab Results - Last 24 Hours (Table) 08/14/24 08/14/24 Range/Units 04:23 07:47 RBC 3.72 L (4.10-5.20) X 10*6/uL Hgb 10.4 L (12.0-15.0) g/dL Hct 34.1 L (37.2-46.3) % MCHC 30.5 L (32.0-37.0) g/dL Immature Gran # 0.05 H (0.00-0.04) X 10*3/uL Lymphocytes # 0.61 L (0.90-5.00) X 10*3/uL Eosinophils # 0 L (0.04-0.35) X 10*3/uL POC Glucose (mg/dL) 215 H (70-110) mg/dL Assessment and Plan Assessment: #) Acute on chronic hypoxic respiratory failure. Baseline the patient uses 2 L of oxygen is currently on 3 L oxygen. This is likely acute COPD exacerbation. I would monitor her off antibiotics given her numerous antibiotic allergies continue IV methylprednisone 60 mg every 6 hours wean off oxygen as tolerates can continue as needed Xanax for anxiety. Continue Symbicort #) HfPEF chronic does not appear to be on any diuretics at home? #) Primary htn continue home losartan 100 mg daily along with spironolactone #) Hld continue atorvastatin 10 mg daily #) GERd continue home pantoprazole 40 mg twice daily #) RA #) hx of seizures continue home Keppra 500 mg twice daily Dispo still wheezing and short of breath. Assess her need to see if her oxygen can be decreased to 2 L nasal cannula.
[2024-08-14 12:06] LABS: Glucose,Whole Blood 176 mg/dL (70-110)
[2024-08-14] MEDS: ALPRAZolam 0.5 MG TAB PO PRN (12:40)
[2024-08-14 12:42] LABS: Blood Urea Nitrogen 19.2 mg/dL (9.0-27.0); Carbon Dioxide 29.2 mmol/L (21.6-31.8); Chloride 100 mmol/L (96-109); Glucose 207 mg/dL (70-110); Potassium 4.6 mmol/L (3.5-5.5); Sodium 140 mmol/L (135-145)
--- NOTE | 2024-08-14 15:05 | P.PN ---
Subjective Progress Note Date: 08/14/24 Patient is a 49-year-old female with past medical history significant for hyper tension, hyperlipidemia, heart failure, GERD, fibromyalgia, former tobacco smoker, chronic oxygen dependence, COPD, among other things. Presented to the emergency department late last night complaining chiefly of shortness of breath, chest congestion, and cough. Found to be febrile with a temperature of 100.2 F in the ED. Chest x-ray did not show any focal infiltrates or evidence of pneumonia. Indeterminate subcentimeter nodule of the left lung base near the left CP angle. Scarring and subsegmental atelectasis in the left midlung. CBC unremarkable for leukocytosis. CMP: Sodium 137, potassium 4.7, chloride 95, serum bicarb 33, BUN 20, creatinine 0.78, glucose 99. Normal saline infusing at 130 mL/h. Magnesium 1.4. LFTs unremarkable. Troponin less than 0.012. NT proBNP low at 63. EKG: Normal sinus rhythm, rate 79 bpm, no acute ischemic changes. Negative for influenza, RSV, COVID. She has many medication intolerances/allergies listed. Patient was placed on meropenem in the ED. Apparently, may have had a reaction to the meropenem earlier and this has been discontinued. She is currently being evaluated in room 17. States she had some mouth and throat burning, which has since resolved with stopping the antibiotic. No significant airway compromise or upper airway stridor. No angioedema or rash or itching. Was given 100 mg of IV Benadryl. She is resting comfortably on 2 L/min nasal cannula. Reporting some progressively worsening shortness of breath, wheezing, and chest congestion over the last 2 days. Minimally productive cough, with yellow sputum production. Reports intermittent substernal chest pain, radiating to the right arm and shoulder blades, especi ally noted with coughing or deep breathing. States that her was sick with pneumonia recently. She reportedly quit smoking May 18 of this year. Another concern, is burning with urination and right flank pain. States the symptoms have been ongoing for several weeks. Did not seek outpatient treatment. States she took Macrobid that she had at home. Most recent vital signs: Temperature 98.8 F, heart rate 84 bpm, blood pressure 172/105 mmHg, SpO2 94% on 2 L/min nasal cannula. On 08/14/2024, the patient is slightly improved and less bronchospastic and wheezy compared to yesterday. No new complaints for now. No significant sputum production. No chest pain. No altered mentation. No nausea vomiting or diarrhea or abdominal pain. She continues to be on a combination of bronc hodilators with DuoNeb updrafts. She is also on Symbicort as maintenance and IV Solu-Medrol. Rest of the home medications were resumed. The white count is 7.3 with a heme of 10.4 and a platelet count of 247. He is 19 with a creatinine of 0.6 and a sodium levels at 140. No other significant events overnight. Objective - Vital Signs Vital signs: Vital Signs Temp 97.8 F 08/14/24 07:32 Pulse 74 08/14/24 09:38 Resp 18 08/14/24 09:38 BP 177/96 08/14/24 07:32 Pulse Ox 97 08/14/24 09:27 FiO2 Intake & Output 08/13/24 08/14/24 08/14/24 18:59 06:59 18:59 Intake Total 2760 540 Balance 2760 540 Weight 85.68 kg 86.8 kg Intake: Oral 2760 540 Other: Voiding Method Toilet Toilet # Voids 2 1 - Exam GENERAL EXAM: Alert, 48-year-old obese white female, comfortable in no apparent distress. HEAD: Normocephalic and atraumatic EYES: Normal reaction of pupils, equal size. NOSE: Clear with pink turbinates. THROAT: No erythema or exudates. NECK: No masses, no JVD. No upper airway stridor. CHEST: No chest wall deformity. LUNGS: Equal air entry with faint expiratory wheezes heard throughout. No crackles, rhonchi, focal dullness. On 2 L/min nasal cannula. SpO2 94%. No conversational dyspnea or accessory muscle use.. CVS: S1 and S2 normal with no audible murmur, regular rhythm. No extra heart sounds ABDOMEN: No hepatosplenomegaly, active bowel sounds, no guarding or rigidity. SPINE: No scoliosis or deformity. Positive CVA tenderness on the right SKIN: No rashes, wheals, erythema CENTRAL NERVOUS SYSTEM: No focal deficits, tone is normal in all 4 extremities. EXTREMITIES: There is no peripheral edema, clubbing, or cyanosis. Peripheral pulses are intact. - Labs CBC & Chem 7: 08/14/24 04:23 08/14/24 04:23 Labs: Abnormal Lab Results - Last 24 Hours (Table) 08/14/24 08/14/24 Range/Units 04:23 07:47 RBC 3.72 L (4.10-5.20) X 10*6/uL Hgb 10.4 L (12.0-15.0) g/dL Hct 34.1 L (37.2-46.3) % MCHC 30.5 L (32.0-37.0) g/dL Immature Gran # 0.05 H (0.00-0.04) X 10*3/uL Lymphocytes # 0.61 L (0.90-5.00) X 10*3/uL Eosinophils # 0 L (0.04-0.35) X 10*3/uL POC Glucose (mg/dL) 215 H (70-110) mg/dL Assessment and Plan Assessment: Acute COPD exacerbation, chest x-ray does not show any acute cardiopulmonary process, chronic left midlung/lingular atelectasis. Viral screen negative for influenza, RSV, COVID Acute on chronic dyspnea, secondary to above Chronic hypoxemic respiratory failure, normally utilizes 2 L/min nasal cannula at bedtime Atypical chest pain History of GERD with esophagitis Fibromyalgia Hypertension History of hyperlipidemia History of seizure disorder History of CVA/TIA History of irritable bowel disease History of chronic pancreatic insufficiency/fibrosis History of nephrolithiasis History of chronic migraines History of rheumatoid arthritis Multiple medication allergies, reportedly had a possible reactions of meropenem in the ED Former tobacco smoker, reportedly quit smoking May this year Plan: Clinically slightly improved compared to yesterday. Remains on treatment of oxygen by nasal cannula No new complaints Continue supplemental oxygen maintain oxygen saturation of 92% or greater Continue DuoNebs [id number], Symbicort inhaler, and IV Solu-Medrol Chest x-ray reviewed, no acute cardiopulmonary process noted. No focal infiltrates or evidence of pneumonia. Isolated fever noted in the ED Check procalcitonin nonelevated at 0.03 GI prophylaxis: Pepcid We will continue to follow
[2024-08-14 17:33] LABS: Glucose,Whole Blood 211 mg/dL (70-110)
[2024-08-14 20:27] LABS: Glucose,Whole Blood 269 mg/dL (70-110)
[2024-08-15 07:36] LABS: Glucose,Whole Blood 215 mg/dL (70-110)
[2024-08-15 08:00] VITALS: RESP 16; TEMP 97.6
--- NOTE | 2024-08-15 11:12 | P.DS ---
Providers Date of admission: 08/12/24 23:05 Attending physician: Bertin Mclain MD Consults: 08/12/24 23:04 Consult Physician Routine Consulting Provider: Ryu Bray Consult Reason/Comments: copd Do you want consulting provider notified?: Yes Primary care physician: Stated None Hospital Course: A 49-year-old female with pulmonary history of HTN, HLD, CHF, GERD, fibromyalgia, chronic hypoxic respiratory failure secondary to COPD, RA, seizure, who presented to the ED with chest congestion cough, SOB, cough, right sided back pain started at rest. Vitals on admission temperature 100.2 heart rate 84 bpm, respiratory rate 22, blood pressure 152/89, O2 saturation 98% on 2 L EKG independently interpreted as sinus rhythm with ventricular rate of 79 bpm and QTc of 421 ms, poor R wave progression CXR shows indeterminate nodule in the left lung base near the left CP angle, scarring and subsegmental atelectasis of the left midlung. started on iv methylprednisone. meropenam d/mayur as developed an allergic reaction. Patient seen and examined. She reports that despite being 49 she has a significant past medical history of tobacco use. She reports that she has used 2 to 3 packs/day and had ceased tobacco use last year. Her breathing had improved and she was discharged home with Aug 15. She will need to follow-up with her PCP in 1 to 2 weeks outpatient. Assessment: #) Acute on chronic hypoxic respiratory failure. Baseline the patient uses 2 L of oxygen. COntinue prednisone 40 mg daily for 5 more days. I have rxed her a symbicort inhaler #) HfPEF chronic does not appear to be on any diuretics at home? #) Primary htn continue home losartan 100 mg daily along with spironolactone #) Hld continue atorvastatin 10 mg daily #) GERd continue home pantoprazole 40 mg twice daily #) RA #) hx of seizures continue home Keppra 500 mg twice daily Patient Condition at Discharge: Fair Plan - Discharge Summary Discharge Rx Participant: No New Discharge Prescriptions: New predniSONE [Deltasone] 40 mg PO DAILY 5 Days #10 tab Budesonide-Formot 160-4.5 Mcg [Symbicort 160-4.5 Mcg Inhaler] 2 puff INHALATION RT-BID #1 each Continue Spironolactone [Aldactone] 25 mg PO DAILY carvediloL [Coreg] 25 mg PO BID Citalopram Hydrobromide [CeleXA] 60 mg PO DAILY Albuterol Inhaler [Ventolin Hfa Inhaler] 2 puff INHALATION RT-QID PRN PRN Reason: Shortness Of Breath Rosuvastatin Calcium [Crestor] 5 mg PO DAILY Montelukast [Singulair] 10 mg PO HS PRN PRN Reason: Allergy Symptoms Pantoprazole [Protonix] 40 mg PO BID 30 Days #60 tab oxyCODONE-APAP 10-325MG [Percocet 10-325 mg] 1 tab PO TID rOPINIRole HCL [Requip] 0.25 mg PO HS traZODone HCL [Desyrel] 50 mg PO HS Ipratropium-Albuterol Nebulize [Duoneb 0.5 mg-3 mg/3 ml Soln] 3 ml INHALATION RT-Q4H PRN PRN Reason: Shortness Of Breath Losartan Potassium [Cozaar] 100 mg PO DAILY levETIRAcetam [Keppra] 500 mg PO BID Discontinued Famotidine [Pepcid] 20 mg PO BID Nitrofurantoin Monohyd/M-Cryst [Macrobid] 100 mg PO BID Discharge Medication List Spironolactone [Aldactone] 25 mg PO DAILY 02/05/17 [History] carvediloL [Coreg] 25 mg PO BID 03/26/21 [History] oxyCODONE-APAP 10-325MG [Percocet 10-325 mg] 1 tab PO TID 03/16/22 [History] Citalopram Hydrobromide [CeleXA] 60 mg PO DAILY 01/27/23 [History] Albuterol Inhaler [Ventolin Hfa Inhaler] 2 puff INHALATION RT-QID PRN 04/02/24 [History] Montelukast [Singulair] 10 mg PO HS PRN 04/02/24 [History] Rosuvastatin Calcium [Crestor] 5 mg PO DAILY 04/02/24 [History] rOPINIRole HCL [Requip] 0.25 mg PO HS 04/02/24 [History] traZODone HCL [Desyrel] 50 mg PO HS 04/02/24 [History] Pantoprazole [Protonix] 40 mg PO BID 30 Days #60 tab 06/09/24 [Rx] Ipratropium-Albuterol Nebulize [Duoneb 0.5 mg-3 mg/3 ml Soln] 3 ml INHALATION RT-Q4H PRN 07/15/24 [History] Losartan Potassium [Cozaar] 100 mg PO DAILY 07/15/24 [History] levETIRAcetam [Keppra] 500 mg PO BID 08/13/24 [History] Budesonide-Formot 160-4.5 Mcg [Symbicort 160-4.5 Mcg Inhaler] 2 puff INHALATION RT-BID #1 each 08/15/24 [Rx] predniSONE [Deltasone] 40 mg PO DAILY 5 Days #10 tab 08/15/24 [Rx] Follow up Appointment(s)/Referral(s): None,Stated [Primary Care Provider] - 1-2 days Discharge/Stand Alone Forms: [facility], [facility], Who Do I Call?, Community Resources, Help In The Home
[2024-08-15 11:30] VITALS: BP 153/83
[2024-08-15 12:21] VITALS: PULSE 80
[2024-08-15 12:50] LABS: Basophils % (A) 0 %; Eosinophils # (A) 0.1 k/uL (0-0.7); Eosinophils % (A) 1 %; HCT 36.5 % (34.0-46.0); HGB 11.1 gm/dL (11.4-16.0); Hypochromasia Moderate; Lymphocytes # (A) 0.5 k/uL (1.0-4.8); Lymphocytes % (A) 5 %; MCH 28.1 pg (25.0-35.0); MCHC 30.4 g/dL (31.0-37.0); MCV 92.5 fL (80.0-100.0); Mean Platelet Volume 8.2; Monocytes # (A) 0.6 k/uL (0-1.0); Monocytes % (A) 5 %; Neutrophils # (A) 9.9 k/uL (1.3-7.7); Neutrophils % (A) 89 %; Platelet Count 223 k/uL (150-450); RBC 3.95 m/uL (3.80-5.40); RDW 14.1 % (11.5-15.5); WBC 11.2 k/uL (3.8-10.6)
[2024-08-15 13:01] LABS: African American GFR (CKD) >90 (>60 ml/min/1.73 sqM); Anion Gap 12 mmol/L; Blood Urea Nitrogen 30 mg/dL (7-17); Calcium 9.1 mg/dL (8.4-10.2); Carbon Dioxide 29 mmol/L (22-30); Chloride 97 mmol/L (98-107); Glucose 207 mg/dL (74-99); Non-African American GFR(CKD) >90 (>60 ml/min/1.73 sqM); Potassium 4.3 mmol/L (3.5-5.1); Sodium 138 mmol/L (137-145)
[2024-08-15 13:05] LABS: Glucose,Whole Blood 120 mg/dL (70-110)
--- NOTE | 2024-08-15 19:05 | P.PN ---
Subjective Progress Note Date: 08/15/24 Patient is a 49-year-old female with past medical history significant for hyper tension, hyperlipidemia, heart failure, GERD, fibromyalgia, former tobacco smoker, chronic oxygen dependence, COPD, among other things. Presented to the emergency department late last night complaining chiefly of shortness of breath, chest congestion, and cough. Found to be febrile with a temperature of 100.2 F in the ED. Chest x-ray did not show any focal infiltrates or evidence of pneumonia. Indeterminate subcentimeter nodule of the left lung base near the left CP angle. Scarring and subsegmental atelectasis in the left midlung. CBC unremarkable for leukocytosis. CMP: Sodium 137, potassium 4.7, chloride 95, serum bicarb 33, BUN 20, creatinine 0.78, glucose 99. Normal saline infusing at 130 mL/h. Magnesium 1.4. LFTs unremarkable. Troponin less than 0.012. NT proBNP low at 63. EKG: Normal sinus rhythm, rate 79 bpm, no acute ischemic changes. Negative for influenza, RSV, COVID. She has many medication intolerances/allergies listed. Patient was placed on meropenem in the ED. Apparently, may have had a reaction to the meropenem earlier and this has been discontinued. She is currently being evaluated in room 17. States she had some mouth and throat burning, which has since resolved with stopping the antibiotic. No significant airway compromise or upper airway stridor. No angioedema or rash or itching. Was given 100 mg of IV Benadryl. She is resting comfortably on 2 L/min nasal cannula. Reporting some progressively worsening shortness of breath, wheezing, and chest congestion over the last 2 days. Minimally productive cough, with yellow sputum production. Reports intermittent substernal chest pain, radiating to the right arm and shoulder blades, especi ally noted with coughing or deep breathing. States that her was sick with pneumonia recently. She reportedly quit smoking May 18 of this year. Another concern, is burning with urination and right flank pain. States the symptoms have been ongoing for several weeks. Did not seek outpatient treatment. States she took Macrobid that she had at home. Most recent vital signs: Temperature 98.8 F, heart rate 84 bpm, blood pressure 172/105 mmHg, SpO2 94% on 2 L/min nasal cannula. On 08/14/2024, the patient is slightly improved and less bronchospastic and wheezy compared to yesterday. No new complaints for now. No significant sputum production. No chest pain. No altered mentation. No nausea vomiting or diarrhea or abdominal pain. She continues to be on a combination of bronc hodilators with DuoNeb updrafts. She is also on Symbicort as maintenance and IV Solu-Medrol. Rest of the home medications were resumed. The white count is 7.3 with a heme of 10.4 and a platelet count of 247. He is 19 with a creatinine of 0.6 and a sodium levels at 140. No other significant events overnight. On 08/15/2024, the patient is doing well and she feels that she is back to her baseline in terms of respiratory status. No new complaints. She remains on oxygen. She remains on bronchodilators. She remains on steroids. Cough congestion chest as the wheezing is subsided significantly. No other new complaints otherwise for now. The patient feels that she is ready to go home. White cell count 11 hemoglobin 11 platelet count is 223, BUN is 30 with a creatinine 0.6 and sodium levels at 138. Objective - Vital Signs Vital signs: Vital Signs Temp 97.6 F 08/15/24 07:33 Pulse 80 08/15/24 12:21 Resp 16 08/15/24 07:33 BP 153/83 08/15/24 11:28 Pulse Ox 91 L 08/15/24 11:28 FiO2 Intake & Output 08/15/24 08/15/24 08/16/24 06:59 18:59 06:59 Intake Total 1440 Balance 1440 Weight 88 kg Intake: Oral 1440 Other: Voiding Method Toilet Toilet - Exam GENERAL EXAM: Alert, 48-year-old obese white female, comfortable in no apparent distress. HEAD: Normocephalic and atraumatic EYES: Normal reaction of pupils, equal size. NOSE: Clear with pink turbinates. THROAT: No erythema or exudates. NECK: No masses, no JVD. No upper airway stridor. CHEST: No chest wall deformity. LUNGS: Equal air entry with faint expiratory wheezes heard throughout. No crackles, rhonchi, focal dullness. On 2 L/min nasal cannula. SpO2 94%. No conversational dyspnea or accessory muscle use.. CVS: S1 and S2 normal with no audible murmur, regular rhythm. No extra heart sounds ABDOMEN: No hepatosplenomegaly, active bowel sounds, no guarding or rigidity. SPINE: No scoliosis or deformity. Positive CVA tenderness on the right SKIN: No rashes, wheals, erythema CENTRAL NERVOUS SYSTEM: No focal deficits, tone is normal in all 4 extremities. EXTREMITIES: There is no peripheral edema, clubbing, or cyanosis. Peripheral pulses are intact. - Labs CBC & Chem 7: 08/15/24 12:03 08/15/24 12:03 Labs: Abnormal Lab Results - Last 24 Hours (Table) 08/14/24 08/15/24 08/15/24 Range/Units 20:26 07:35 12:03 WBC 11.2 H (3.8-10.6) k/uL Hgb 11.1 L (11.4-16.0) gm/dL MCHC 30.4 L (31.0-37.0) g/dL Neutrophils # 9.9 H (1.3-7.7) k/uL Lymphocytes # 0.5 L (1.0-4.8) k/uL Chloride (98-107) mmol/L BUN (7-17) mg/dL Glucose (74-99) mg/dL POC Glucose (mg/dL) 269 H 215 H (70-110) mg/dL 08/15/24 08/15/24 Range/Units 12:03 12:52 WBC (3.8-10.6) k/uL Hgb (11.4-16.0) gm/dL MCHC (31.0-37.0) g/dL Neutrophils # (1.3-7.7) k/uL Lymphocytes # (1.0-4.8) k/uL Chloride 97 L (98-107) mmol/L BUN 30 H (7-17) mg/dL Glucose 207 H (74-99) mg/dL POC Glucose (mg/dL) 120 H (70-110) mg/dL Microbiology - Last 24 Hours (Table) 08/12/24 21:47 Blood Culture - Preliminary Blood Assessment and Plan Assessment: Acute COPD exacerbation, chest x-ray does not show any acute cardiopulmonary process, chronic left midlung/lingular atelectasis. Viral screen negative for influenza, RSV, COVID Acute on chronic dyspnea, secondary to above Chronic hypoxemic respiratory failure, normally utilizes 2 L/min nasal cannula at bedtime Atypical chest pain History of GERD with esophagitis Fibromyalgia Hypertension History of hyperlipidemia History of seizure disorder History of CVA/TIA History of irritable bowel disease History of chronic pancreatic insufficiency/fibrosis History of nephrolithiasis History of chronic migraines History of rheumatoid arthritis Multiple medication allergies, reportedly had a possible reactions of meropenem in the ED Former tobacco smoker, reportedly quit smoking May this year Plan: Clinically improved Remains on treatment of oxygen by nasal cannula No new complaints Continue supplemental oxygen maintain oxygen saturation of 92% or greater Continue DuoNebs [id number], Chest x-ray reviewed, no acute cardiopulmonary process noted. No focal infiltrates or evidence of pneumonia. Check procalcitonin nonelevated at 0.03 Home today on a prednisone burst taper
== END 2024-08-15 13:33 | disposition home or self-care (01) | DRG 190 ==
LOC: EC 21:30 → 5NMEDONC 23:05
PROVIDERS: ADMIT Internal Medicine; ATTEND Internal Medicine
DX: J44.1 Chronic obstructive pulmonary disease with (acute) exacerbation (principal); J96.21 Acute and chronic respiratory failure with hypoxia; E87.3 Alkalosis; J96.12 Chronic respiratory failure with hypercapnia; I11.0 Hypertensive heart disease with heart failure; K86.89 Other specified diseases of pancreas; M06.9 Rheumatoid arthritis, unspecified; E66.01 Morbid (severe) obesity due to excess calories; G40.909 Epilepsy, unspecified, not intractable, without status epilepticus; F31.9 Bipolar disorder, unspecified; I50.32 Chronic diastolic (congestive) heart failure; K21.9 Gastro-esophageal reflux disease without esophagitis; M79.7 Fibromyalgia; R07.89 Other chest pain; E78.5 Hyperlipidemia, unspecified; F90.9 Attention-deficit hyperactivity disorder, unspecified type; T36.1X5A Adverse effect of cephalosporins and other beta-lactam antibiotics, initial encounter; F41.9 Anxiety disorder, unspecified; Z68.37 Body mass index [BMI] 37.0-37.9, adult; K58.9 Irritable bowel syndrome, unspecified; E83.42 Hypomagnesemia; Z99.81 Dependence on supplemental oxygen; Z88.1 Allergy status to other antibiotic agents; Z87.891 Personal history of nicotine dependence; Z87.440 Personal history of urinary (tract) infections; Z86.73 Personal history of transient ischemic attack (TIA), and cerebral infarction without residual deficits; Z79.899 Other long term (current) drug therapy; Z88.0 Allergy status to penicillin; Z91.041 Radiographic dye allergy status; Z88.2 Allergy status to sulfonamides
CPT/HCPCS: 36415; 71046; 80048; 80053; 81001; 83036; 83605; 83735; 83880; 84145; 84484; 85025; 85610; 85730; 87040; 87449; 87636; 93005; 94640; 94760; 96361; 96365; 96367; 96375; 99285

== ENCOUNTER 2024-10-26 19:27 | Emergency (ER) | payer MEDICARE ==
[2024-10-26 20:18] LABS: Basophils # (A) 0.02 10*3/uL (0.00-0.10); Basophils % (A) 0.2 %; Eosinophils # (A) 0.27 10*3/uL (0.04-0.35); Eosinophils % (A) 3.3 %; HCT 37.3 % (37.2-46.3); HGB 11.7 g/dL (12.0-15.0); Lymphocytes # (A) 2.24 10*3/uL (0.90-5.00); Lymphocytes % (A) 27.6 %; MCH 26.5 pg (27.0-32.0); MCHC 31.4 g/dL (32.0-37.0); MCV 84.6 fL (80.0-97.0); Mean Platelet Volume 9.2 fL (9.5-12.2); Monocytes # (A) 0.57 10*3/uL (0.20-1.00); Neutrophils % (A) 61.7 %; Platelet Count 384 10*3/uL (140-440); RBC 4.41 10*6/uL (4.10-5.20); RDW 13.2 % (11.5-14.5); WBC 8.12 10*3/uL (4.50-10.00)
--- NOTE | 2024-10-26 20:25 | XR ---
EXAMINATION TYPE: XR chest 2V DATE OF EXAM: 10/26/2024 8:21 PM COMPARISON: 08/24/2024 CLINICAL INDICATION: Female, 49 years old with history of difficulty breathing, TECHNIQUE: XR chest 2V view(s) obtained. FINDINGS: The heart size is normal. The pulmonary vasculature is normal. The lungs are clear. IMPRESSION: 1. No acute pulmonary process. [facility], , 10/26/2024 8:23 PM
[2024-10-26 20:27] LABS: INR 1.1 (<1.2); Partial Thromboplastin Time 22.4 sec (22.0-30.0); Prothrombin Time 11.7 sec (10.0-12.5)
[2024-10-26 20:29] LABS: ALT 11 U/L (4-34); AST 19 U/L (14-36); African American GFR (CKD) >90 (>60 ml/min/1.73 sqM); Albumin 3.7 g/dL (3.5-5.0); Alkaline Phosphatase 93 U/L (38-126); Anion Gap 0 mmol/L; Blood Urea Nitrogen 11 mg/dL (7-17); Calcium 9.1 mg/dL (8.4-10.2); Carbon Dioxide 40 mmol/L (22-30); Chloride 97 mmol/L (98-107); Glucose 117 mg/dL (74-99); Non-African American GFR(CKD) >90 (>60 ml/min/1.73 sqM); Potassium 4.1 mmol/L (3.5-5.1); Sodium 137 mmol/L (137-145); Total Bilirubin 0.6 mg/dL (0.2-1.3); Total Protein 6.4 g/dL (6.3-8.2)
[2024-10-26] MEDS: MORPHINE SULFATE 4 MG/ML SYRINGE IVP STA (21:17)
[2024-10-26] MEDS: ONDANSETRON 4 MG/2 ML VIAL IVP STA (21:18)
[2024-10-26] MEDS: IPRATROPIUM-ALBUTEROL 3 ML NEB INHALATION STA (21:18)
[2024-10-26 21:25] LABS: Appearance,Urine Clear (Clear); Bilirubin,Urine Negative (Negative); Blood,Urine Negative (Negative); Color,Urine Yellow; Glucose,Urine (UA) Negative (Negative); Ketones,Urine Negative (Negative); Leukocyte Esterase,Urine Negative (Negative); Nitrite,Urine Negative (Negative); PH, Urine 5.5 (5.0-8.0); Protein,Urine Negative (Negative); Specific Gravity,Urine 1.021 (1.001-1.035); Urobilinogen,Urine <2.0 mg/dL (<2.0)
[2024-10-26 21:31] LABS: VBG PH 7.38 (7.31-7.41)
[2024-10-26] MEDS: ASPIRIN 81 MG PO STA (23:02)
[2024-10-26] MEDS: MORPHINE SULFATE 2 MG/ML SYRINGE IVP STA (23:02)
[2024-10-27 00:15] VITALS: RESP 20
[2024-10-27] MEDS: IPRATROPIUM-ALBUTEROL 3 ML NEB INHALATION STA (00:16)
--- NOTE | 2024-10-27 01:16 | ED ---
General Adult HPI - General Chief complaint: Shortness of Breath Stated complaint: SOB Time Seen by Provider: 10/26/24 20:02 Source: patient, EMS, RN notes reviewed Mode of arrival: EMS Limitations: no limitations - History of Present Illness Initial comments: 49-year-old female presents to the emergency department for evaluation of right- sided flank/chest wall pain. Patient states that this has been going on for 2 to 3 days. She does note a history of recurrent UTIs and kidney stones and is concerned that this is what is bothering her today. She admits to dysuria. Denies any fever, chills. Endorses nausea. Patient does note she is on home O2 she does state it has been slightly more short of breath than usual. - Related Data Home Medications Medication Instructions Recorded Confirmed Spironolactone [Aldactone] 25 mg PO DAILY 02/05/17 08/13/24 carvediloL [Coreg] 25 mg PO BID 03/26/21 08/13/24 oxyCODONE-APAP 10-325MG [Percocet 1 tab PO TID 03/16/22 08/13/24 10-325 mg] Citalopram Hydrobromide [CeleXA] 60 mg PO DAILY 01/27/23 08/13/24 Albuterol Inhaler [Ventolin Hfa 2 puff INHALATION RT-QID PRN 04/02/24 08/13/24 Inhaler] Montelukast [Singulair] 10 mg PO HS PRN 04/02/24 08/13/24 Rosuvastatin Calcium [Crestor] 5 mg PO DAILY 04/02/24 08/13/24 rOPINIRole HCL [Requip] 0.25 mg PO HS 04/02/24 08/13/24 traZODone HCL [Desyrel] 50 mg PO HS 04/02/24 08/13/24 Ipratropium-Albuterol Nebulize 3 ml INHALATION RT-Q4H PRN 07/15/24 08/13/24 [Duoneb 0.5 mg-3 mg/3 ml Soln] Losartan Potassium [Cozaar] 100 mg PO DAILY 07/15/24 08/13/24 levETIRAcetam [Keppra] 500 mg PO BID 08/13/24 08/13/24 Previous Rx's Medication Instructions Recorded Pantoprazole [Protonix] 40 mg PO BID 30 Days #60 tab 06/09/24 Budesonide-Formot 160-4.5 Mcg 2 puff INHALATION RT-BID #1 each 08/15/24 [Symbicort 160-4.5 Mcg Inhaler] predniSONE [Deltasone] 40 mg PO DAILY 5 Days #10 tab 08/15/24 Allergies Allergy/AdvReac Type Severity Reaction Status Date / Time adhesive Allergy Rash/Hives Verified 10/26/24 19:37 amoxicillin Allergy Anaphylaxis Verified 10/26/24 19:37 azithromycin [From Zithromax] Allergy Anaphylaxis Verified 10/26/24 19:37 cephalexin monohydrate Allergy Anaphylaxis Verified 10/26/24 19:37 [From Keflex] ciprofloxacin Allergy Anaphylaxis Verified 10/26/24 19:37 clindamycin Allergy Anaphylaxis Verified 10/26/24 19:37 Iodinated Contrast Media Allergy Anaphylaxis Verified 10/26/24 19:37 [Iodinated Contrast- Oral and IV Dye] ketorolac [From Toradol] Allergy Anaphylaxis Verified 10/26/24 19:37 levofloxacin [From Levaquin] Allergy Rash/Hives Verified 10/26/24 19:37 meropenem Allergy Wheezing Verified 10/26/24 19:37 naproxen Allergy Anaphylaxis Verified 10/26/24 19:37 NSAIDS (Non-Steroidal Allergy Rash/Hives Verified 10/26/24 19:37 Anti-Inflamma orphenadrine [From Norflex] Allergy Anaphylaxis Verified 10/26/24 19:37 pineapple Allergy Anaphylaxis Verified 10/26/24 19:37 shellfish derived Allergy Anaphylaxis Verified 10/26/24 19:37 Sulfa (Sulfonamide Allergy Anaphylaxis Verified 10/26/24 19:37 Antibiotics) sulfamethoxazole Allergy Anaphylaxis Verified 10/26/24 19:37 [From Bactrim] tramadol Allergy Anaphylaxis Verified 10/26/24 19:37 trimethoprim [From Bactrim] Allergy Anaphylaxis Verified 10/26/24 19:37 Review of Systems ROS Statement: Those systems with pertinent positive or pertinent negative responses have been documented in the HPI. ROS Other: All systems not noted in ROS Statement are negative. 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 IBS, cellulitis of the chin, CVA about 1 year ago(no residual), hiatal hernia History of Any Multi-Drug Resistant Organisms: MRSA Date of last positivie culture/infection: 07/2016 MDRO Source:: Chin Past Surgical History: Appendectomy, Section, Cholecystectomy, Hysterectomy, Tubal Ligation Additional Past Surgical History / Comment(s): oral surgery . Pancreas biopsy May 2015. Past Anesthesia/Blood Transfusion Reactions: No Reported Reaction Past Psychological History: ADD/ADHD, Anxiety, Bipolar, Depression Smoking Status: Former smoker Past Alcohol Use History: None Reported Past Drug Use History: Marijuana - Past Family History Father History Unknown: Yes Family Medical History: No Reported History Additional Family Medical History / Comment(s): Pt adopted Mother History Unknown: Yes Additional Family Medical History / Comment(s): Pt adopted General Exam Limitations: no limitations General appearance: alert, in no apparent distress Head exam: Present: atraumatic, normocephalic, normal inspection Eye exam: Present: normal appearance, PERRL, EOMI. Absent: scleral icterus, conjunctival injection, periorbital swelling ENT exam: Present: normal exam, mucous membranes moist Neck exam: Present: normal inspection. Absent: tenderness, meningismus, lymphadenopathy Respiratory exam: Present: normal lung sounds bilaterally. Absent: respiratory distress, wheezes, rales, rhonchi, stridor Cardiovascular Exam: Present: regular rate, normal rhythm, normal heart sounds. Absent: systolic murmur, diastolic murmur, rubs, gallop, clicks GI/Abdominal exam: Present: soft, normal bowel sounds. Absent: distended, tenderness, guarding, rebound, rigid Extremities exam: Present: normal inspection, full ROM, normal capillary refill. Absent: tenderness, pedal edema, joint swelling, calf tenderness Back exam: Present: CVA tenderness (R) Neurological exam: Present: alert, oriented X3 Psychiatric exam: Present: normal affect, normal mood Skin exam: Present: warm, dry, intact, normal color. Absent: rash Course Vital Signs 10/26/24 10/26/24 10/26/24 19:37 20:07 21:21 Temperature 98.8 F Pulse Rate 62 61 83 Respiratory 16 22 Rate Blood Pressure 196/104 144/79 O2 Sat by Pulse 96 91 L Oximetry 10/26/24 10/27/24 10/27/24 21:57 00:14 00:16 Temperature Pulse Rate 66 63 63 Respiratory 20 Rate Blood Pressure 136/77 O2 Sat by Pulse 95 Oximetry 10/27/24 10/27/24 10/27/24 00:26 01:17 01:54 Temperature 98.6 F Pulse Rate 66 64 Respiratory 20 Rate Blood Pressure 176/84 O2 Sat by Pulse 95 Oximetry Medical Decision Making - Medical Decision Making Was pt. sent in by a medical professional or institution (, PA, BUCKLE STRAP DRUM OPERATOR, urgent care, hospital, or penitentiary...) When possible be specific @ -No Did you speak to anyone other than the patient for history (EMS, parent, family, police, friend...)? What history was obtained from this source @ -No Did you review nursing and triage notes (agree or disagree)? Why? @ -I reviewed and agree with nursing and triage notes Were old charts reviewed (outside hosp., previous admission, EMS record, old EKG, old radiological studies, urgent care reports/EKG's, penitentiary records)? Report findings @ -No old charts were reviewed Differential Diagnosis (chest pain, altered mental status, abdominal pain women, abdominal pain men, vaginal bleeding, weakness, fever, dyspnea, syncope, he adache, dizziness, GI bleed, back pain, seizure, CVA, palpatations, mental health, musculoskeletal)? @ -Differential Back Pain: Strain, zoster, cauda equina syndrome, epidural abscess, vertebral ost eomyelitis, discitis, fracture, subluxation, disc herniation, DJD, spinal stenosis, dissection, AAA, pancreatitis, peptic ulcer disease, pyelonephritis, kidney stone, this is not meant to be an all-inclusive list. EKG interpreted by me (3pts min.). @ -EKG@194 shows sinus rhythm rate 63, [place] 135, QRS 90, QTQTc [id number], this was compared to prior EKGs and shows no significant differentiation from prior X-rays interpreted by me (1pt min.). @ -Chest x-ray reveals no acute process CT interpreted by me (1pt min.). @ -None done U/S interpreted by me (1pt. min.). @ -None done What testing was considered but not performed or refused? (CT, X-rays, U/S, labs)? Why? @ -None What meds were considered but not given or refused? Why? @ -None Did you discuss the management of the patient with other professionals (professionals i.e. , PA, BUCKLE STRAP DRUM OPERATOR, lab, RT, psych nurse, manager social, artistic director, teacher, medical officer, block and case maker)? Give summary @ -No Was smoking cessation discussed for >3mins.? @ -No Was critical care preformed (if so, how long)? @ -No Were there social determinants of health that impacted care today? How? (Homelessness, low income, unemployed, alcoholism, drug addiction, transportation, low edu. Level, literacy, decrease access to med. care, longterm, rehab)? @ -No Was there de-escalation of care discussed even if they declined (Discuss DNR or withdrawal of care, Hospice)? DNR status @ -No What co-morbidities impacted this encounter? (DM, HTN, Smoking, COPD, CAD, Cancer, CVA, ARF, Chemo, Hep., AIDS, mental health diagnosis, sleep apnea, morbid obesity)? @ -None Was patient admitted / discharged? Hospital course, mention meds given and route, prescriptions, significant lab abnormalities, going to OR and other pertinent info. @ -Discharged. Patient presented emergency department for evaluation of right- sided flank pain which.States obtained significant cytosis, hemoglobin 11.7 which is stable for the patient; normal coagulation studies. Creatinine 0.48, GFR within normal limits; negative troponin; UA shows no evidence of infectious process, no blood. A repeat troponin was also obtained which was also negative. Patient underwent chest x-ray revealing no acute process. She was provided medication for pain control and nausea control in the emergency department. She is feeling better and will be discharged home. She is understanding and agreeable with this plan. Case discussed with Dr. Collier. Undiagnosed new problem with uncertain prognosis? @ -No Drug Therapy requiring intensive monitoring for toxicity (Heparin, Nitro, Ins ulin, Cardizem)? @ -No Were any procedures done? @ -No Diagnosis/symptom? @ -Flank pain Acute, or Chronic, or Acute on Chronic? @ -Acute Uncomplicated (without systemic symptoms) or Complicated (systemic symptoms)? @ -uncomplicated Side effects of treatment? @ -No Exacerbation, Progression, or Severe Exacerbation? @ -No Poses a threat to life or bodily function? How? (Chest pain, USA, OR, pneumonia, PE, COPD, DKA, ARF, appy, cholecystitis, CVA, Diverticulitis, Homicidal, Suicidal, threat to staff... and all critical care pts) @ -No - Lab Data Result diagrams: 10/26/24 20:09 10/26/24 20:09 Lab Results 10/26/24 10/26/24 10/26/24 Range/Units 20:09 20:09 20:09 WBC 8.12 (4.50-10.00) 10*3/uL RBC 4.41 (4.10-5.20) 10*6/uL Hgb 11.7 L (12.0-15.0) g/dL Hct 37.3 (37.2-46.3) % MCV 84.6 (80.0-97.0) fL MCH 26.5 L (27.0-32.0) pg MCHC 31.4 L (32.0-37.0) g/dL Plt Count 384 (140-440) 10*3/uL MPV 9.2 L (9.5-12.2) fL Immature Gran % (Auto) 0.2 % Neutrophils % 61.7 % Lymphocytes % 27.6 % Monocytes % 7.0 % Eosinophils % 3.3 % Basophils % 0.2 % Immature Gran # 0.02 (0.00-0.04) 10*3/uL Neutrophils # 5.00 (1.80-7.70) 10*3/uL Lymphocytes # 2.24 (0.90-5.00) 10*3/uL Monocytes # 0.57 (0.20-1.00) 10*3/uL Eosinophils # 0.27 (0.04-0.35) 10*3/uL Basophils # 0.02 (0.00-0.10) 10*3/uL PT 11.7 (10.0-12.5) sec INR 1.1 (<1.2) APTT 22.4 (22.0-30.0) sec VBG pH (7.31-7.41) VBG pCO2 (37-51) mmHg VBG HCO3 (24-28) mmol/L Sodium 137 (137-145) mmol/L Potassium 4.1 (3.5-5.1) mmol/L Chloride 97 L (98-107) mmol/L Carbon Dioxide 40 H (22-30) mmol/L Anion Gap 0 mmol/L BUN 11 (7-17) mg/dL Creatinine 0.48 L (0.52-1.04) mg/dL Est GFR (CKD-EPI)AfAm >90 (>60 ml/min/1.73 sqM) Est GFR (CKD-EPI)NonAf >90 (>60 ml/min/1.73 sqM) Glucose 117 H (74-99) mg/dL Plasma Lactic Acid Srinivas (0.7-2.0) mmol/L Calcium 9.1 (8.4-10.2) mg/dL Total Bilirubin 0.6 (0.2-1.3) mg/dL AST 19 (14-36) U/L ALT 11 (4-34) U/L Alkaline Phosphatase 93 (38-126) U/L Troponin I (0.000-0.034) ng/mL Total Protein 6.4 (6.3-8.2) g/dL Albumin 3.7 (3.5-5.0) g/dL Urine Color Urine Appearance (Clear) Urine pH (5.0-8.0) Ur Specific [place] (1.001-1.035) Urine Protein (Negative) Urine Glucose (UA) (Negative) Urine Ketones (Negative) Urine Blood (Negative) Urine Nitrite (Negative) Urine Bilirubin (Negative) Urine Urobilinogen (<2.0) mg/dL Ur Leukocyte Esterase (Negative) 10/26/24 10/26/24 10/26/24 Range/Units 20:09 20:09 20:57 WBC (4.50-10.00) 10*3/uL RBC (4.10-5.20) 10*6/uL Hgb (12.0-15.0) g/dL Hct (37.2-46.3) % MCV (80.0-97.0) fL MCH (27.0-32.0) pg MCHC (32.0-37.0) g/dL Plt Count (140-440) 10*3/uL MPV (9.5-12.2) fL Immature Gran % (Auto) % Neutrophils % % Lymphocytes % % Monocytes % % Eosinophils % % Basophils % % Immature Gran # (0.00-0.04) 10*3/uL Neutrophils # (1.80-7.70) 10*3/uL Lymphocytes # (0.90-5.00) 10*3/uL Monocytes # (0.20-1.00) 10*3/uL Eosinophils # (0.04-0.35) 10*3/uL Basophils # (0.00-0.10) 10*3/uL PT (10.0-12.5) sec INR (<1.2) APTT (22.0-30.0) sec VBG pH 7.38 (7.31-7.41) VBG pCO2 63 H (37-51) mmHg VBG HCO3 38 H (24-28) mmol/L Sodium (137-145) mmol/L Potassium (3.5-5.1) mmol/L Chloride (98-107) mmol/L Carbon Dioxide (22-30) mmol/L Anion Gap mmol/L BUN (7-17) mg/dL Creatinine (0.52-1.04) mg/dL Est GFR (CKD-EPI)AfAm (>60 ml/min/1.73 sqM) Est GFR (CKD-EPI)NonAf (>60 ml/min/1.73 sqM) Glucose (74-99) mg/dL Plasma Lactic Acid Srinivas 0.8 (0.7-2.0) mmol/L Calcium (8.4-10.2) mg/dL Total Bilirubin (0.2-1.3) mg/dL AST (14-36) U/L ALT (4-34) U/L Alkaline Phosphatase (38-126) U/L Troponin I <0.012 (0.000-0.034) ng/mL Total Protein (6.3-8.2) g/dL Albumin (3.5-5.0) g/dL Urine Color Urine Appearance (Clear) Urine pH (5.0-8.0) Ur Specific [place] (1.001-1.035) Urine Protein (Negative) Urine Glucose (UA) (Negative) Urine Ketones (Negative) Urine Blood (Negative) Urine Nitrite (Negative) Urine Bilirubin (Negative) Urine Urobilinogen (<2.0) mg/dL Ur Leukocyte Esterase (Negative) 10/26/24 10/27/24 Range/Units 21:15 00:46 WBC (4.50-10.00) 10*3/uL RBC (4.10-5.20) 10*6/uL Hgb (12.0-15.0) g/dL Hct (37.2-46.3) % MCV (80.0-97.0) fL MCH (27.0-32.0) pg MCHC (32.0-37.0) g/dL Plt Count (140-440) 10*3/uL MPV (9.5-12.2) fL Immature Gran % (Auto) % Neutrophils % % Lymphocytes % % Monocytes % % Eosinophils % % Basophils % % Immature Gran # (0.00-0.04) 10*3/uL Neutrophils # (1.80-7.70) 10*3/uL Lymphocytes # (0.90-5.00) 10*3/uL Monocytes # (0.20-1.00) 10*3/uL Eosinophils # (0.04-0.35) 10*3/uL Basophils # (0.00-0.10) 10*3/uL PT (10.0-12.5) sec INR (<1.2) APTT (22.0-30.0) sec VBG pH (7.31-7.41) VBG pCO2 (37-51) mmHg VBG HCO3 (24-28) mmol/L Sodium (137-145) mmol/L Potassium (3.5-5.1) mmol/L Chloride (98-107) mmol/L Carbon Dioxide (22-30) mmol/L Anion Gap mmol/L BUN (7-17) mg/dL Creatinine (0.52-1.04) mg/dL Est GFR (CKD-EPI)AfAm (>60 ml/min/1.73 sqM) Est GFR (CKD-EPI)NonAf (>60 ml/min/1.73 sqM) Glucose (74-99) mg/dL Plasma Lactic Acid Srinivas (0.7-2.0) mmol/L Calcium (8.4-10.2) mg/dL Total Bilirubin (0.2-1.3) mg/dL AST (14-36) U/L ALT (4-34) U/L Alkaline Phosphatase (38-126) U/L Troponin I <0.012 (0.000-0.034) ng/mL Total Protein (6.3-8.2) g/dL Albumin (3.5-5.0) g/dL Urine Color Yellow Urine Appearance Clear (Clear) Urine pH 5.5 (5.0-8.0) Ur Specific [place] 1.021 (1.001-1.035) Urine Protein Negative (Negative) Urine Glucose (UA) Negative (Negative) Urine Ketones Negative (Negative) Urine Blood Negative (Negative) Urine Nitrite Negative (Negative) Urine Bilirubin Negative (Negative) Urine Urobilinogen <2.0 (<2.0) mg/dL Ur Leukocyte Esterase Negative (Negative) Disposition Clinical Impression: Shortness of breath Disposition: HOME SELF-CARE Condition: Stable Instructions (If sedation given, give patient instructions): COPD (Chronic Obstructive Pulmonary Disease) (ED) Additional Instructions: Please follow-up with your doctor. Return to the emergency department for new or worsening symptoms. Is patient prescribed a controlled substance at d/c from ED?: No Referrals: None,Stated [Primary Care Provider] - 1-2 days
[2024-10-27 01:23] VITALS: BP 176/84; PULSE 64
[2024-10-27] MEDS: ACETAMINOPHEN TAB 325 MG TAB PO STA (01:49)
[2024-10-27 01:56] VITALS: TEMP 98.6
== END 2024-10-27 01:56 | disposition home or self-care (01) ==
LOC: EC 19:27
DX: R06.02 Shortness of breath (principal); R10.9 Unspecified abdominal pain; Z88.0 Allergy status to penicillin; Z88.1 Allergy status to other antibiotic agents; Z88.2 Allergy status to sulfonamides; Z88.5 Allergy status to narcotic agent; Z88.6 Allergy status to analgesic agent; Z91.041 Radiographic dye allergy status; Z91.013 Allergy to seafood; Z91.09 Other allergy status, other than to drugs and biological substances; Z91.018 Allergy to other foods; Z87.891 Personal history of nicotine dependence; Z86.73 Personal history of transient ischemic attack (TIA), and cerebral infarction without residual deficits
CPT/HCPCS: 36415 ×2; 94640 ×2; 93005; 80053; 82803; 83605; 84484 ×2; 85025; 85610; 85730; 81003; 71046; 99285; 96374; 96375; 96376; J2270 ×2; J2405